=== PATIENT | female | born 1955 | race Caucasian/White ===

== ENCOUNTER 2017-01-14 15:54 | Observation (INO) | payer OTHER ==
[2017-01-14] MEDS ORDERED: PROCHLORPERAZINE INJ 5 MG/ML 2 ML VIAL IV ONE (16:41)
[2017-01-14] MEDS ORDERED: NS 0.9% 1000 ML* 2,000 ML IV ONE (16:41)
[2017-01-14] MEDS ORDERED: Nitroglycerin TAB 0.4 MG* 0.4 MG TAB SL ONE (16:42)
--- NOTE | 2017-01-14 17:07 | RAD ---
HISTORY: Chest pain COMPARISONS: September 19, 2016 VIEWS:1: Single frontal portable view of the chest at 4:51 PM FINDINGS: LINES AND TUBES: None. CARDIOMEDIASTINAL SILHOUETTE: The cardiomediastinal silhouette is normal for portable technique. PLEURA: The costophrenic angles are sharp. No pleural abnormalities are noted. LUNG PARENCHYMA: The lungs are clear. ABDOMEN: The upper abdomen is clear. There is no subphrenic gas. BONES AND SOFT TISSUES: The patient is appears to be status post left mastectomy and right breast reconstruction IMPRESSION: NO ACTIVE CARDIOPULMONARY DISEASE.
[2017-01-14 17:40] LABS: Hematocrit 38 % (35-47); Hemoglobin 12.7 g/dl (12.0-16.0); Mean Corpuscular HGB Conc 33 g/dl (31-36); Mean Corpuscular Hemoglobin 28 pg (27-31); Mean Corpuscular Volume 86 fL (80-97); Mean Platelet Volume 7 um3 (7.4-10.4); Red Blood Count 4.48 10^6/ul (4.0-5.4); Red Cell Distribution Width 15 % (10.5-15); White Blood Count 10.6 10^3/ul (3.5-10.8)
[2017-01-14 18:00] LABS: Troponin I 0.01 ng/mL (<0.04)
[2017-01-14 18:06] LABS: Albumin 3.7 g/dL (3.2-5.2); BUN/Creatinine Ratio 36.4 (8-20); C Reactive Protein 1.12 mg/L (< 5.00); Calcium 8.6 mg/dL (8.6-10.3); EGFR African American 144.5 (>60); EGFR Non-African American 112.4 (>60); Globulin 2.9 g/dL (2-4); Potassium 3.7 mmol/L (3.5-5.0); Total Bilirubin 0.3 mg/dL (0.2-1.0); Total Protein 6.6 g/dL (6.4-8.9)
[2017-01-14 18:43] LABS: TSH (Thyroid Stimulating Horm) 1.45 mcIU/mL (0.34-5.60)
[2017-01-14] MEDS ORDERED: Ondansetron INJ* 2 MG/ML VIAL IV ONE (19:20)
[2017-01-14] MEDS ORDERED: Morphine INJ* 4 MG/ML 1 ML SYRINGE IV ONE (19:20)
--- NOTE | 2017-01-14 19:25 | ED ---
Slade Chatterjee Matthew, scribed for Aravind Rosas MD on 01/14/17 at 1719 . HPI Chest Pain - HPI Summary HPI Summary: A 61 y/o female presents to the ED for mid-sternal chest pain since 14:00. The pain started while the patient was watching TV. The pain is rated 10/10 in severity, described as sharp/heavy, and does not radiate. he patient has had 2 MIs in the past, and she is unable to differentiate this pain from her achalasia or similar to her previous MIs. She took nitroglycerin [employer] without relief. Associated symptoms include nausea. The patient takes Morphine 30mg XR twice day and 15mg 3x daily. She was able to take her extended release pain medications this morning, but hasn't been able to take her breakaway pain medication this afternoon, because of difficulty swallowing. She normal takes her XR medications in the morning and evening. She c/o of chronic abdominal pain from her J-Tube. The patient has lost between 30-40 pounds since June. PMHx of HTN, NO HLD, and NO Diabetes. - History of Current Complaint Chief Complaint: EDChestPainROMI Time Seen by Provider: 01/14/17 16:31 Hx Obtained From: Patient Onset/Duration: Started Hours Ago, Atraumatic, Still Present Time of Onset: 14:00 Timing: Constant Initial Severity: Moderate Current Severity: Moderate Pain Intensity: 10 Pain Scale Used: 0-10 Numeric Chest Pain Location: Mid Sternal Chest Pain Radiates: No Character: Heaviness, Sharp/Stabbing Associated Signs and Symptoms: Positive: Chest Pain, Nausea - Additional Pertinent History Primary Care Physician: [id number] - Allergy/Home Medications Allergies/Adverse Reactions: Allergies Allergy/AdvReac Type Severity Reaction Status Date / Time Albumin Human [From Botox] Allergy Severe Anaphylatic Verified 01/14/17 16:30 Shock Iodinated Contrast Media Allergy Severe Anaphylatic Verified 01/14/17 16:30 [IV CONTRAST DYE] Shock Iodine Allergy Severe Anaphylatic Verified 01/14/17 16:30 Shock NSAIDs Allergy Severe Anaphylatic Verified 01/14/17 16:30 Shock OnabotulinumtoxinA Allergy Severe Anaphylatic Verified 01/14/17 16:30 [From Botox] Shock Penicillins Allergy Severe Anaphylatic Verified 01/14/17 16:30 Shock Adhesive Tape Allergy Itching Verified 01/14/17 16:30 Chlorhexidine Allergy Rash And Verified 01/14/17 16:30 [From Hibiclens] Itching Latex Allergy Hives Verified 01/14/17 16:30 Povidone Iodine Allergy Itching Verified 01/14/17 16:30 [From Betadine] Shellfish Allergy Allergy Anaphylatic Verified 01/14/17 16:30 Shock BEES Allergy Anaphylatic Uncoded 01/14/17 16:30 Shock ENVIRONMENTAL/SEASONAL Allergy ITCHY,WATERY Uncoded 01/14/17 16:30 HAYFEVER EYES, SNEEZE, CONGESTION PMH/Surg Hx/FS Hx/Imm Hx Endocrine/Hematology History: Reports: Hx Anticoagulant Therapy - plavix, Hx Anemia Denies: Hx Diabetes, Hx Thyroid Disease Cardiovascular History: Reports: Hx Angina, Hx Coronary Artery Disease, Hx Deep Vein Thrombosis, Hx Embolism, Hx Hypercholesterolemia, Hx Hypertension, Hx Myocardial Infarction, Hx Syncope, Other Cardiovascular Problems/Disorders - LEFT MASTECTOMY Denies: Hx Congestive Heart Failure, Hx Pacemaker/ICD, Hx Valvular Heart Disease Respiratory History: Reports: Hx Chronic Obstructive Pulmonary Disease (COPD) - Pt denies though providers have diagnosed it, Hx Pneumonia, Hx Pulmonary Embolism, Hx Seasonal Allergies, Other Respiratory Problems/Disorders - SMOKER Denies: Hx Asthma, Hx Sleep Apnea GI History: Reports: Hx Diverticulosis, Hx Gastroesophageal Reflux Disease, Hx Hiatal Hernia, Other GI Disorders - achelasia, Fernández's esophagus, PEG tube, TPN, Nissin Fundoplication Denies: Hx Ulcer History: Reports: Hx Kidney Infection, Hx Kidney Stones - LAST 12/2015- NO PROBLEMS SINCE PER PATIENT Denies: Hx Dialysis, Hx Renal Disease Musculoskeletal History: Reports: Hx Arthritis - LEFT KNEE, BACK, Hx Back Problems - L1 fx, Other Musculoskeletal History - current L1 fx Denies: Hx Osteoporosis Sensory History: Reports: Hx Cataracts - R eye, Hx Contacts or Glasses Denies: Hx Hearing Aid Opthamlomology History: Reports: Hx Cataracts - R eye, Hx Contacts or Glasses Neurological History: Reports: Hx Spinal Cord Injury - L1, Hx Transient Ischemic Attacks (TIA), Other Neuro Impairments/Disorders - POSSIBLE SMALL TIA'S - 1.5 YEARS AGO- Psychiatric History: Reports: Hx Anxiety - OCCASIONAL - PRN MEDS- CURRENTLY HAS NO SCRIPTS FOR Denies: Hx Panic Disorder - Cancer History Cancer Type, Location and Year: RT BREAST CA, 2009 HAD A BILATERAL MASTECTOMY Hx Chemotherapy: No Hx Radiation Therapy: No - Surgical History Surgery Procedure, Year, and Place: RT LUMPECTOMY 02/2010, BILATERAL MASTECTOMY , 2001& 2002 CARDIAC STENT AT [facility] IN [place], LEFT KNEE SURGERY X10, BILATERAL SHOULDER SURGERY, ESPOHOGEAL SURGERY, PARTIAL HYSTERECTOMY,. APPENDIX A CHILD, CHEST TUBE, ESOPHAGEAL DILATION. NISSIN FUNDOLPICATION Hx Anesthesia Reactions: No - Immunization History Date of Tetanus Vaccine: up to date Date of Influenza Vaccine: 06/2016 Infectious Disease History: No Infectious Disease History: Denies: Hx Clostridium Difficile, Hx Hepatitis, Hx Human Immunodeficiency Virus (HIV), Hx of Known/Suspected MRSA, Hx Shingles, Hx Tuberculosis, Hx Known/ Suspected VRE, Hx Known/Suspected VRSA, History Other Infectious Disease, Traveled Outside the in Last 30 Days - Family History Known Family History: Positive: None, Cardiac Disease - Social History Alcohol Use: None Substance Use Type: Reports: None Substance Use Comment - Amount & Last Used: prescribed Hx Tobacco Use: Yes Smoking Status (MU): Heavy Every Day Tobacco Smoker Type: Cigarettes Amount Used/How Often: < 5 CIGARETTES A WEEK X 45 YEARS Length of Time of Smoking/Using Tobacco: 40+ YEARS Have You Smoked in the Last Year: Yes Review of Systems Constitutional: Negative Eyes: Negative ENT: Negative Positive: Chest Pain Respiratory: Negative Positive: Nausea Genitourinary: Negative Musculoskeletal: Negative Skin: Negative Neurological: Negative Psychological: Normal All Other Systems Reviewed And Are Negative: Yes Physical Exam Triage Information Reviewed: Yes Vital Signs On Initial Exam: Initial Vitals Temp Pulse Resp BP Pulse Ox 97.9 F 72 15 151/91 96 01/14/17 16:18 01/14/17 16:18 01/14/17 16:18 01/14/17 16:18 01/14/17 16:18 Vital Signs Reviewed: Yes Appearance: Positive: Pain Distress - mild Skin: Positive: Warm, Dry Head/Face: Positive: Normal Head/Face Inspection Eyes: Positive: Normal ENT: Positive: Normal ENT inspection Neck: Positive: Supple, Nontender Respiratory/Lung Sounds: Positive: Clear to Auscultation, Breath Sounds Present Cardiovascular: Positive: RRR Abdomen Description: Positive: Nontender, Soft Bowel Sounds: Positive: Present Musculoskeletal: Positive: Strength/ROM Intact Neurological: Positive: Alert, Oriented to Person Place, Time Psychiatric: Positive: Affect/Mood Appropriate Diagnostics - Vital Signs Vital Signs Temp Pulse Resp BP Pulse Ox 01/14/17 16:27 72 96 01/14/17 16:18 97.9 F 72 15 151/91 96 - Laboratory Lab Results: Lab Results 01/14/17 01/14/17 01/14/17 Range/Units 17:28 17:28 17:28 WBC 10.6 (3.5-10.8) 10^3/ul RBC 4.48 (4.0-5.4) 10^6/ul Hgb 12.7 (12.0-16.0) g/dl Hct 38 (35-47) % MCV 86 (80-97) fL MCH 28 (27-31) pg MCHC 33 (31-36) g/dl RDW 15 (10.5-15) % Plt Count 354 (150-450) 10^3/ul MPV 7 L (7.4-10.4) um3 Neut % (Auto) 67.8 (38-83) % Lymph % (Auto) 24.6 L (25-47) % [place] % (Auto) 5.8 (1-9) % Eos % (Auto) 0.9 (0-6) % Baso % (Auto) 0.9 (0-2) % Absolute Neuts (auto) 7.2 (1.5-7.7) 10^3/ul Absolute Lymphs (auto) 2.6 (1.0-4.8) 10^3/ul Absolute Monos (auto) 0.6 (0-0.8) 10^3/ul Absolute Eos (auto) 0.1 (0-0.6) 10^3/ul Absolute Basos (auto) 0.1 (0-0.2) 10^3/ul Absolute Nucleated RBC 0 10^3/ul Nucleated RBC % 0 INR (Anticoag Therapy) 0.78 L (0.89-1.11) APTT 28.2 (26.0-36.3) seconds D-Dimer, Quantitative 281 H (Less Than 230) ng/mL Sodium 134 (133-145) mmol/L Potassium 3.7 (3.5-5.0) mmol/L Chloride 104 (101-111) mmol/L Carbon Dioxide 24 (22-32) mmol/L Anion Gap 6 (2-11) mmol/L BUN 20 (6-24) mg/dL Creatinine 0.55 (0.51-0.95) mg/dL Est GFR ( Amer) 144.5 (>60) Est GFR (Non-Af Amer) 112.4 (>60) BUN/Creatinine Ratio 36.4 H (8-20) Glucose 90 (70-100) mg/dL Lactic Acid (0.5-2.0) mmol/L Calcium 8.6 (8.6-10.3) mg/dL Magnesium 2.0 (1.9-2.7) mg/dL Total Bilirubin 0.30 (0.2-1.0) mg/dL AST 15 (13-39) U/L ALT 18 (7-52) U/L Alkaline Phosphatase 50 (34-104) U/L Total Creatine Kinase 30 (10-223) U/L CK-MB (CK-2) 1.0 (0.6-6.3) ng/mL Troponin I 0.01 (<0.04) ng/mL C-Reactive Protein 1.12 (< 5.00) mg/L B-Natriuretic Peptide ( - 100) pg/mL Total Protein 6.6 (6.4-8.9) g/dL Albumin 3.7 (3.2-5.2) g/dL Globulin 2.9 (2-4) g/dL Albumin/Globulin Ratio 1.3 (1-3) Lipase 19 (11.0-82.0) U/L TSH 1.45 (0.34-5.60) mcIU/mL 01/14/17 01/14/17 Range/Units 17:28 17:28 WBC (3.5-10.8) 10^3/ul RBC (4.0-5.4) 10^6/ul Hgb (12.0-16.0) g/dl Hct (35-47) % MCV (80-97) fL MCH (27-31) pg MCHC (31-36) g/dl RDW (10.5-15) % Plt Count (150-450) 10^3/ul MPV (7.4-10.4) um3 Neut % (Auto) (38-83) % Lymph % (Auto) (25-47) % [place] % (Auto) (1-9) % Eos % (Auto) (0-6) % Baso % (Auto) (0-2) % Absolute Neuts (auto) (1.5-7.7) 10^3/ul Absolute Lymphs (auto) (1.0-4.8) 10^3/ul Absolute Monos (auto) (0-0.8) 10^3/ul Absolute Eos (auto) (0-0.6) 10^3/ul Absolute Basos (auto) (0-0.2) 10^3/ul Absolute Nucleated RBC 10^3/ul Nucleated RBC % INR (Anticoag Therapy) (0.89-1.11) APTT (26.0-36.3) seconds D-Dimer, Quantitative (Less Than 230) ng/mL Sodium (133-145) mmol/L Potassium (3.5-5.0) mmol/L Chloride (101-111) mmol/L Carbon Dioxide (22-32) mmol/L Anion Gap (2-11) mmol/L BUN (6-24) mg/dL Creatinine (0.51-0.95) mg/dL Est GFR ( Amer) (>60) Est GFR (Non-Af Amer) (>60) BUN/Creatinine Ratio (8-20) Glucose (70-100) mg/dL Lactic Acid 0.8 (0.5-2.0) mmol/L Calcium (8.6-10.3) mg/dL Magnesium (1.9-2.7) mg/dL Total Bilirubin (0.2-1.0) mg/dL AST (13-39) U/L ALT (7-52) U/L Alkaline Phosphatase (34-104) U/L Total Creatine Kinase (10-223) U/L CK-MB (CK-2) (0.6-6.3) ng/mL Troponin I (<0.04) ng/mL C-Reactive Protein (< 5.00) mg/L B-Natriuretic Peptide 57 ( - 100) pg/mL Total Protein (6.4-8.9) g/dL Albumin (3.2-5.2) g/dL Globulin (2-4) g/dL Albumin/Globulin Ratio (1-3) Lipase (11.0-82.0) U/L TSH (0.34-5.60) mcIU/mL Result Diagrams: 01/14/17 17:28 01/14/17 17:28 Lab Statement: Any lab studies that have been ordered have been reviewed, and results considered in the medical decision making process. - Radiology CXR Xray Interpretation: No Acute Changes - IMPRESSION: NO ACTIVE CARDIOPULMONARY DISEASE. Radiology Interpretation Completed By: Radiologist - EKG 18:17 Cardiac Rate: NL - 69 bpm EKG Rhythm: Sinus Rhythm Ectopy: None EKG Interpretation: Flipped T waves in V1 and V2 Chest Pain Course/Dx - Course Assessment/Plan: ADMIT HOSPITALIST STABLE. - Diagnoses Provider Diagnoses: Chest pain Discharge - Discharge Plan Condition: Stable Disposition: ADMITTED TO [facility] Referrals: Trish Combs MD [Primary Care Provider] - The documentation as recorded by the Slade vyas Matthew accurately reflects the service I personally performed and the decisions made by , Aravind Rosas MD.
--- NOTE | 2017-01-14 19:26 | HP ---
H&P (Free Text) History and Physical: PCP: Zahra Combs MD Date/Time of Evaluation: 01/14/2017 191 CC: chest pain HPI: Mrs Prasad is a 61YO female HX CAD/DC, DVT/PE, breast CA who presents reporting uncharacterizable malaise starting yesterday remaining stable into today until ~1400 when she developed rapid onset of sharp, non-exertional, non- radiating substernal chest pain associated with mild SOB, nausea, palpitations, and light-headedness, but no sweating. The pain has been continuous since without exacerbating or alleviating factors. She denies pain/swelling in the legs, abdominal pain, F/C, emesis, or change in bowel/bladder. Her previous DVT/ PE occurred in the post-operative setting, but she is unsure which surgery. Evaluation reveals stable vitals and negative labs excepting a minimally elevated d-dimer of 281. Troponin is 0.01. BNP is 57. ECG & CXR are benign. PMedHx CAD/DC x2 LLE DVT/PE R breast CA s/p B mastectomy TIA achalasia urolithiasis L1 compression FX OA anxiety Allergies Albumin Human [From Botox] Allergy (Severe, Verified 01/14/17 16:30) Anaphylatic Shock Iodinated Contrast Media [IV CONTRAST DYE] Allergy (Severe, Verified 01/14/17 16 :30) Anaphylatic Shock Iodine Allergy (Severe, Verified 01/14/17 16:30) Anaphylatic Shock NSAIDs Allergy (Severe, Verified 01/14/17 16:30) Anaphylatic Shock OnabotulinumtoxinA [From Botox] Allergy (Severe, Verified 01/14/17 16:30) Anaphylatic Shock Penicillins Allergy (Severe, Verified 01/14/17 16:30) Anaphylatic Shock Adhesive Tape Allergy (Verified 01/14/17 16:30) Itching Chlorhexidine [From Hibiclens] Allergy (Verified 01/14/17 16:30) Rash And Itching Latex Allergy (Verified 01/14/17 16:30) Hives Povidone Iodine [From Betadine] Allergy (Verified 01/14/17 16:30) Itching Shellfish Allergy Allergy (Verified 01/14/17 16:30) Anaphylatic Shock BEES Allergy (Uncoded 01/14/17 16:30) Anaphylatic Shock ENVIRONMENTAL/SEASONAL HAYFEVER Allergy (Uncoded 01/14/17 16:30) ITCHY,WATERY EYES, SNEEZE, CONGESTION Ambulatory Orders Nursing to reconcile. Azelastine 0.05% (OPHTH)(NF) [Optivar 0.05% (NF)] 1 drop BOTH EYES BID PRN 05/31 Cyanocobalamin INJ * [Vitamin B12 INJ *] 1,000 mcg IM MONTHLY 05/31/15 Epinephrine [Epipen 2-Godwin] 0.3 mg INJ ONCE PRN 05/31/15 Nitroglycerin TAB 0.4 MG* 0.4 mg SL Q5M PRN 11/03/15 Carisoprodol TAB* [Soma TAB*] 350 mg PO BID PRN 01/16/16 diPHENhydraMINE PO* [Benadryl PO 25 MG TAB*] 25 mg PO Q6HR PRN 01/16/16 Clopidogrel TAB* [Plavix TAB*] 75 mg PO DAILY tab 03/09/16 Acetaminophen [Acetaminophen Extra Stren] 1,000 mg PO TID PRN 08/14/16 Albuterol HFA INHALER* [Ventolin HFA Inhaler*] 2 puff INH Q4H PRN 08/14/16 Ergocalciferol CAP* [Drisdol CAP*] 50,000 units PO PECK 08/14/16 Lidocaine 2% JELLY* 1 applic TOPICAL DAILY PRN 08/14/16 Metoprolol Succinate XL TAB* [Toprol XL TAB*] 50 mg PO DAILY 08/14/16 Pravastatin (NF) [Pravachol (NF)] 20 mg PO BEDTIME 08/14/16 Ondansetron ODT TAB* [Zofran 4 MG Odt TAB*] 4 mg PO Q6H PRN #90 tab.odt Omeprazole CAP* [Prilosec CAP* 20 MG] 40 mg PO DAILY 09/19/16 Morphine Sulfate Beads [Morphine Sulfate ER] 30 mg PO BID 10/17/16 Morphine TAB (NF) 15 mg PO Q4H PRN 10/17/16 Prochlorperazine TAB* [Compazine Tab*] 10 mg PO Q6H PRN 10/17/16 PSurgHx B shoulder arthroscopies esophageal dilation R breast lumpectomy B mastectomy B breast reconstruction implants, failed on L Godwin fundoplication x2 G-tube placement appendectomy hysterectomy L TKA SocHx: 1/2PPD cigarettes, denies alcohol & recreational drugs; lives alone, , 2 children locally; disabled; full code status FamHx: Mother passed in her 80 2nd lung CA; Father: passed of DC in his 50s ROS: as above, otherwise reviewed and all were negative Constitutional: NAD, normally developed, thin white female vitals: Vital Signs Temp 36.6 C 01/14/17 16:18 Pulse 71 01/14/17 19:36 Resp 17 01/14/17 20:00 BP 156/128 01/14/17 19:36 Pulse Ox 97 01/14/17 19:36 Intake & Output 01/13/17 01/14/17 01/14/17 23:59 11:59 23:59 Intake Total 1000 Balance 1000 Weight 52.163 kg Intake: IV Fluids 1000 HEENM: atraumatic; sclera/conjunctiva: non-icteric/clear; hearing: clinically intact; oropharynx: clear, mucosa moist Neck: soft tissue: non-tender; thyroid: normal Pulmonary: clear to auscultation bilaterally, good aeration, no accessory muscle use CV: RR/RR, normal S1S2, no carotid bruit, no jugular venous distention, 2+ B DP/ PT, no edema Abdominal: soft, non-distended, non-tender, no rebound/guarding/rigidity, normoactive bowel sounds, no hepatosplenomegaly or masses, no costovertebral angle tenderness Musculoskeletal: general: grossly intact; gait: stable Integumental: normal appearance and texture of exposed skin Psychiatric orientation: AA&O to PPS affect: calm mood: cooperative eye contact: good content: reliable responses: timely insight: good to fair Testing: Lab Results 01/14/17 01/14/17 01/14/17 Range/Units 17:28 17:28 17:28 WBC 10.6 (3.5-10.8) 10^3/ul RBC 4.48 (4.0-5.4) 10^6/ul Hgb 12.7 (12.0-16.0) g/dl Hct 38 (35-47) % MCV 86 (80-97) fL MCH 28 (27-31) pg MCHC 33 (31-36) g/dl RDW 15 (10.5-15) % Plt Count 354 (150-450) 10^3/ul MPV 7 L (7.4-10.4) um3 Neut % (Auto) 67.8 (38-83) % Lymph % (Auto) 24.6 L (25-47) % [place] % (Auto) 5.8 (1-9) % Eos % (Auto) 0.9 (0-6) % Baso % (Auto) 0.9 (0-2) % Absolute Neuts (auto) 7.2 (1.5-7.7) 10^3/ul Absolute Lymphs (auto) 2.6 (1.0-4.8) 10^3/ul Absolute Monos (auto) 0.6 (0-0.8) 10^3/ul Absolute Eos (auto) 0.1 (0-0.6) 10^3/ul Absolute Basos (auto) 0.1 (0-0.2) 10^3/ul Absolute Nucleated RBC 0 10^3/ul Nucleated RBC % 0 INR (Anticoag Therapy) 0.78 L (0.89-1.11) APTT 28.2 (26.0-36.3) seconds D-Dimer, Quantitative 281 H (Less Than 230) ng/mL Sodium 134 (133-145) mmol/L Potassium 3.7 (3.5-5.0) mmol/L Chloride 104 (101-111) mmol/L Carbon Dioxide 24 (22-32) mmol/L Anion Gap 6 (2-11) mmol/L BUN 20 (6-24) mg/dL Creatinine 0.55 (0.51-0.95) mg/dL Est GFR ( Amer) 144.5 (>60) Est GFR (Non-Af Amer) 112.4 (>60) BUN/Creatinine Ratio 36.4 H (8-20) Glucose 90 (70-100) mg/dL Lactic Acid (0.5-2.0) mmol/L Calcium 8.6 (8.6-10.3) mg/dL Magnesium 2.0 (1.9-2.7) mg/dL Total Bilirubin 0.30 (0.2-1.0) mg/dL AST 15 (13-39) U/L ALT 18 (7-52) U/L Alkaline Phosphatase 50 (34-104) U/L Total Creatine Kinase 30 (10-223) U/L CK-MB (CK-2) 1.0 (0.6-6.3) ng/mL Troponin I 0.01 (<0.04) ng/mL C-Reactive Protein 1.12 (< 5.00) mg/L B-Natriuretic Peptide ( - 100) pg/mL Total Protein 6.6 (6.4-8.9) g/dL Albumin 3.7 (3.2-5.2) g/dL Globulin 2.9 (2-4) g/dL Albumin/Globulin Ratio 1.3 (1-3) Lipase 19 (11.0-82.0) U/L TSH 1.45 (0.34-5.60) mcIU/mL 01/14/17 01/14/17 Range/Units 17:28 17:28 WBC (3.5-10.8) 10^3/ul RBC (4.0-5.4) 10^6/ul Hgb (12.0-16.0) g/dl Hct (35-47) % MCV (80-97) fL MCH (27-31) pg MCHC (31-36) g/dl RDW (10.5-15) % Plt Count (150-450) 10^3/ul MPV (7.4-10.4) um3 Neut % (Auto) (38-83) % Lymph % (Auto) (25-47) % [place] % (Auto) (1-9) % Eos % (Auto) (0-6) % Baso % (Auto) (0-2) % Absolute Neuts (auto) (1.5-7.7) 10^3/ul Absolute Lymphs (auto) (1.0-4.8) 10^3/ul Absolute Monos (auto) (0-0.8) 10^3/ul Absolute Eos (auto) (0-0.6) 10^3/ul Absolute Basos (auto) (0-0.2) 10^3/ul Absolute Nucleated RBC 10^3/ul Nucleated RBC % INR (Anticoag Therapy) (0.89-1.11) APTT (26.0-36.3) seconds D-Dimer, Quantitative (Less Than 230) ng/mL Sodium (133-145) mmol/L Potassium (3.5-5.0) mmol/L Chloride (101-111) mmol/L Carbon Dioxide (22-32) mmol/L Anion Gap (2-11) mmol/L BUN (6-24) mg/dL Creatinine (0.51-0.95) mg/dL Est GFR ( Amer) (>60) Est GFR (Non-Af Amer) (>60) BUN/Creatinine Ratio (8-20) Glucose (70-100) mg/dL Lactic Acid 0.8 (0.5-2.0) mmol/L Calcium (8.6-10.3) mg/dL Magnesium (1.9-2.7) mg/dL Total Bilirubin (0.2-1.0) mg/dL AST (13-39) U/L ALT (7-52) U/L Alkaline Phosphatase (34-104) U/L Total Creatine Kinase (10-223) U/L CK-MB (CK-2) (0.6-6.3) ng/mL Troponin I (<0.04) ng/mL C-Reactive Protein (< 5.00) mg/L B-Natriuretic Peptide 57 ( - 100) pg/mL Total Protein (6.4-8.9) g/dL Albumin (3.2-5.2) g/dL Globulin (2-4) g/dL Albumin/Globulin Ratio (1-3) Lipase (11.0-82.0) U/L TSH (0.34-5.60) mcIU/mL ECG, personally reviewed: NSR rate 69, no ischemia CXR, personally reviewed: IMPRESSION: NO ACTIVE CARDIOPULMONARY DISEASE. Impression: 61F presenting with atypical chest pain for r/o ACS/PE DIAGNOSIS & PLAN Primary chest pain r/o ACS/PE : HX CAD/DC x2 : telemetry : no aspirin 2nd anaphylaxis to NSAIDS : metoprolol : supplemental oxygen : enoxaparin 1mg/kg SQ x1 tonight : V/Q scan in AM : trend troponin : repeat ECG in AM : if all negative, would not pursue further : supportive care Secondary HX LLE DVT/PE : enoxaparin 1mg/kg x1 dose tonight as above : V/Q scan in AM R breast CA s/p B mastectomy : no acute issues : no evidence of disease achalasia : PPI Admission Rational: CDU observation for r/o ACS/PE DVTp: enoxaparin SQ Code Status: full HCP: daughter, Ela Chávez, & brother, To Prasad
[2017-01-14] MEDS ORDERED: Melatonin (NF) 3 MG TAB PO PRN (21:22)
[2017-01-14] MEDS ORDERED: oxyCODONE TAB* 5 MG TAB PO PRN (21:22)
[2017-01-14] MEDS ORDERED: Nicotine Inhaler* 10 MG AMP INH PRN (21:22)
[2017-01-14] MEDS ORDERED: Morphine INJ* 2 MG/ML 1 ML SYRINGE IV PRN (21:22)
[2017-01-14] MEDS ORDERED: PROCHLORPERAZINE INJ 5 MG/ML 2 ML VIAL IV PRN (21:22)
[2017-01-14] MEDS ORDERED: Acetaminophen TAB* 325 MG PO PRN (21:22)
[2017-01-14] MEDS ORDERED: Ondansetron INJ* 2 MG/ML VIAL IV PRN (21:22)
[2017-01-14] MEDS ORDERED: Albuterol 2.5 MG/3 ML NEB.SOL* (0.083%) INH PRN (21:22)
[2017-01-14] MEDS ORDERED: Enoxaparin(*) 60 MG/0.6 ML SYR SUBCUT ONE (21:23)
[2017-01-14] MEDS ORDERED: Metoprolol Succinate XL TAB* 25 MG PO ONE (21:25)
[2017-01-14] MEDS ORDERED: NS 0.9% 1000 ML* 1,000 ML IV SCH (21:30)
[2017-01-14] MEDS: Pantoprazole IV* 40 MG IV SCH (22:57)
[2017-01-14] MEDS: traMADol TAB* 50 MG PO PRN (22:57)
--- NOTE | 2017-01-15 08:09 | RAD ---
INDICATION: Short of breath. Chest pain COMPARISON: Chest x-ray January 14, 2017 TECHNIQUE: Following the administration of 9.65 millicuries of xenon gas, anterior and posterior deep breath, equilibrium, and washout phase imaging was performed. Following the intravenous administration of 6.2 millicuries of technetium 99m, MAA, anterior, posterior, lateral, and oblique imaging of the chest was performed. FINDINGS: Ventilation images show normal ventilation. The perfusion images show no segmentally absent areas of ventilation/perfusion mismatch. The probability of acute pulmonary embolus is low. IMPRESSION: LOW PROBABILITY FOR ACUTE PULMONARY EMBOLUS.
[2017-01-15] MEDS: Pantoprazole IV* 40 MG IV SCH (08:16)
[2017-01-15] MEDS: traMADol TAB* 50 MG PO PRN (08:16)
[2017-01-15] MEDS ORDERED: Docusate CAP* 100 MG PO SCH (09:00)
[2017-01-15 13:27] VITALS: BP 169/81
[2017-01-15] MEDS ORDERED: amLODIPine TAB* 5 MG PO SCH (14:00)
[2017-01-15] MEDS ORDERED: Carisoprodol TAB* 350 MG PO SCH (21:00)
--- NOTE | 2017-01-16 02:35 | DS ---
DISCHARGE SUMMARY: DATE OF ADMISSION: 01/14/17 DATE OF DISCHARGE: 01/15/17 PRIMARY CARE PROVIDER: Dr. Combs. DISCHARGE DIAGNOSIS: Chest pain, which ruled out with negative troponins and V/ Q scan that was low probability. PAST MEDICAL HISTORY: Includes: 1. Coronary artery disease. 2. History of DVT and PE. 3. History of right breast cancer, status post mastectomy. 4. TIA. 5. Achalasia. 6. History of PEG tube placement. 7. Urolithiasis. 8. L1 compression fracture. 9. Osteoarthritis. 10. Anxiety. Please note that the patient has a history of frequent ER visits for chest pains. Her most recent cardiac stress test was noted to be in March of 2016 and was low probability. LABORATORY DATA: During the hospital stay included D-dimer that was mildly elevated to 281. The patient's troponins throughout her hospital stay were 0. TSH was 1.45. V/Q scan obtained on 01/15/17, impression: "Low probability for acute pulmonary embolus." MEDICATIONS AT DISCHARGE: Include: 1. Acetaminophen 1000 mg t.i.d. p.r.n. 2. Albuterol inhaler 2 puffs every 4 hours p.r.n. 3. Azelastine 0.05% ophthalmic solution one drop both eyes b.i.d. 4. Soma 350 mg b.i.d. 5. Plavix 75 mg daily. 6. Vitamin B12 1000 mcg IM monthly. 7. EpiPen use as directed for allergies. 8. Vitamin D3 50,000 units p.o. weekly. 9. Gabapentin 300 mg at bedtime. 10. Lidocaine gel apply to painful areas as previously directed. 11. Metoprolol succinate 50 mg daily. 12. Morphine sulfate beads 30 mg b.i.d. 13. Morphine immediate release 15 mg every 4 hours p.r.n. 14. Nitroglycerin 0.4 mg sublingually on a p.r.n. basis. 15. Omeprazole 40 mg daily. 16. Zofran on a p.r.n. basis. 17. Pravachol 20 mg at bedtime. 18. Compazine 10 mg every 6 hours p.r.n. 19. Amlodipine 5 mg daily. 20. Benadryl 25 mg on a p.r.n. basis. HOSPITALIZATION COURSE: Isabel Prasad is a 61-year-old female with history of achalasia, who currently is able to swallow and takes p.o. diet, although she does have an existing PEG tube in place that currently is not being used. The patient has history of frequent ER visits for chest pain. She came in for chest pain once again and on 01/14/17, she was placed on overnight observation. Her V/Q scan was low probability for PE. The patient also ruled out with serial troponins. She was chest pain free at discharge. She does have history of low probability cardiac test obtained less than a year ago. She is going to be discharged home with recommendation to follow up with her primary care provider in approximately 4 to 7 days. Her medications at home were not changed at discharge. Physical exam at the time of discharge was unchanged from admission. CC: Dr. Combs* [id number]/[facility] #: [id number] [place]
== END 2017-01-15 15:17 | disposition home or self-care (01) ==
LOC: ED 15:54 → MEDTELE 19:25
PROVIDERS: ADMIT Hospitalist; ATTEND Internal Medicine
DX: R07.9 Chest pain, unspecified (principal); I25.10 Atherosclerotic heart disease of native coronary artery without angina pectoris; Z86.718 Personal history of other venous thrombosis and embolism; Z86.711 Personal history of pulmonary embolism; Z79.01 Long term (current) use of anticoagulants; Z86.73 Personal history of transient ischemic attack (TIA), and cerebral infarction without residual deficits; K22.0 Achalasia of cardia; F41.9 Anxiety disorder, unspecified; Z79.899 Other long term (current) drug therapy; I25.2 Old myocardial infarction; I51.7 Cardiomegaly; R06.02 Shortness of breath; F17.210 Nicotine dependence, cigarettes, uncomplicated; Z88.0 Allergy status to penicillin; Z88.8 Allergy status to other drugs, medicaments and biological substances; Z88.6 Allergy status to analgesic agent
CPT/HCPCS: 36415; 71010; 78582; 80053; 82550; 82553; 83605; 83690; 83735; 83880; 84443; 84484; 85025; 85379; 85610; 85730; 86140; 93005; 96361; 96374; 96375; 96376; 99284; 99406; A9270-GY; A9540; A9558; G0378; J0780; J1650; J2270; J2405

== ENCOUNTER 2017-03-04 14:04 | Emergency (ER) | payer OTHER ==
[2017-03-04] MEDS ORDERED: Morphine INJ* 4 MG/ML 1 ML SYRINGE IV ONE (15:12)
[2017-03-04] MEDS ORDERED: Ondansetron INJ* 2 MG/ML VIAL IV ONE ×2 (15:12→18:27)
[2017-03-04] MEDS ORDERED: NS 0.9% 1000 ML* 1,000 ML IV ONE ×2 (15:12→16:59)
[2017-03-04 16:00] LABS: Hematocrit 49 % (35-47); Hemoglobin 16.8 g/dl (12.0-16.0); Mean Corpuscular HGB Conc 34 g/dl (31-36); Mean Corpuscular Hemoglobin 29 pg (27-31); Mean Corpuscular Volume 84 fL (80-97); Mean Platelet Volume 8 um3 (7.4-10.4); Red Blood Count 5.83 10^6/ul (4.0-5.4); Red Cell Distribution Width 14 % (10.5-15); White Blood Count 8.6 10^3/ul (3.5-10.8)
[2017-03-04 16:19] LABS: Albumin 4.4 g/dL (3.2-5.2); BUN/Creatinine Ratio 18.8 (8-20); Calcium 9.5 mg/dL (8.6-10.3); EGFR African American 120.9 (>60); Globulin 3.6 g/dL (2-4); Potassium 3.4 mmol/L (3.5-5.0); Total Bilirubin 0.7 mg/dL (0.2-1.0)
[2017-03-04] MEDS ORDERED: HYDROmorphone* 1 MG/ML 1 ML SYR IV SLOW PU ONE ×2 (16:53→19:44)
--- NOTE | 2017-03-04 17:56 | RAD ---
Indication: Abdominal pain, bloody stools. CT of the abdomen and pelvis was performed after oral contrast administration. No IV contrast was administered. Comparison is made with previous exam dated July 02, 2016. Lung bases demonstrate dependent changes with likely atelectasis in the right lung base. No pleural fluid is identified. Heart demonstrates no pericardial effusion. Liver is normal in size. No focal lesions or intrahepatic ductal dilatation is noted. The spleen is normal in size. The pancreas demonstrates no mass or pancreatic duct dilatation. The common duct is dilated however no abrupt termination is noted. The common duct measures up to 13 mm. Gallbladder demonstrates no calcified gallstones. No pericholecystic fluid or wall thickening is identified. The kidneys demonstrate no hydronephrosis although extrarenal pelvis is noted in the right kidney. No dilated loops of bowel are noted. Bilateral adrenal hyperplasia is noted. This is unchanged from July 02, 2016. CT of the pelvis demonstrates urinary bladder to be distended. There is cortical irregularity involving the right ilium especially in the dorsal aspect of the right ilium. Etiology of this is unclear although no discrete lytic lesion is identified. Correlation with bone scan may BE helpful. No dilated loops of bowel are noted. No hernias are noted. There is old injury of the right inferior pubic rami. The remainder of the bony structures are grossly unremarkable. IMPRESSION: Thickening of the cortex in the right ilium of uncertain etiology. Correlation with bone scan may BE helpful. This may be due to focal osteopenia. There is a dilated common duct noted measuring up to 13 mm. No abrupt termination is noted. Atherosclerotic aorta is noted. Bilateral adrenal hyperplasia..
[2017-03-04] MEDS ORDERED: Ondansetron INJ* 2 MG/ML VIAL ONE (18:24)
[2017-03-04 18:52] LABS: Troponin I 0.01 ng/mL (<0.04)
[2017-03-04 20:03] VITALS: BP 177/88
--- NOTE | 2017-03-04 20:38 | ED ---
Pao Chatterjee Michael, scribed for Holli Deleon MD on 03/04/17 at 1551 . Abdominal Pain/Female - HPI Summary HPI Summary: 62 y/o female was BIBA to the ED presenting with constant and diffuse abd pain that started gradually. The pt also c/o nausea, diarrhea with blood in the stool , and decreased appetite. The nausea and diarrhea have been present for 5 days. She denies fever, vomiting, and dysuria. The PMHx is significant for achalasia, [place] with stenting x2 and breast CA 6 years ago. She has had her G- tube removed 2 months ago and has lost a total of 50 pounds in 4 months. - History of Current Complaint Chief Complaint: EDGeneral Stated Complaint: ABD PAIN/CHEST PAIN Time Seen by Provider: 03/04/17 14:49 Hx Obtained From: Patient, Medical Records Onset/Duration: Gradual Onset, Still Present Timing: Constant Severity Initially: Moderate Severity Currently: Moderate Pain Intensity: 8 Pain Scale Used: 0-10 Numeric Location: Diffuse Radiates: No Aggravating Factor(s): Nothing Alleviating Factor(s): Nothing Associated Signs and Symptoms: Positive: Blood in Stool, Decreased Appetite, Nausea, Diarrhea, Other: - abd pain. Negative: Fever, Urinary Symptoms - dysuria, Vomiting Allergies/Adverse Reactions: Allergies Allergy/AdvReac Type Severity Reaction Status Date / Time Albumin Human [From Botox] Allergy Severe Anaphylatic Verified 01/14/17 16:30 Shock Iodinated Contrast Media Allergy Severe Anaphylatic Verified 01/14/17 16:30 [IV CONTRAST DYE] Shock Iodine Allergy Severe Anaphylatic Verified 01/14/17 16:30 Shock NSAIDs Allergy Severe Anaphylatic Verified 01/14/17 16:30 Shock OnabotulinumtoxinA Allergy Severe Anaphylatic Verified 01/14/17 16:30 [From Botox] Shock Penicillins Allergy Severe Anaphylatic Verified 01/14/17 16:30 Shock Adhesive Tape Allergy Itching Verified 01/14/17 16:30 Chlorhexidine Allergy Rash And Verified 01/14/17 16:30 [From Hibiclens] Itching Latex Allergy Hives Verified 01/14/17 16:30 Povidone Iodine Allergy Itching Verified 01/14/17 16:30 [From Betadine] Shellfish Allergy Allergy Anaphylatic Verified 01/14/17 16:30 Shock BEES Allergy Anaphylatic Uncoded 01/14/17 16:30 Shock ENVIRONMENTAL/SEASONAL Allergy ITCHY,WATERY Uncoded 01/14/17 16:30 HAYFEVER EYES, SNEEZE, CONGESTION PMH/Surg Hx/FS Hx/Imm Hx Endocrine/Hematology History: Reports: Hx Anticoagulant Therapy - plavix, Hx Anemia Denies: Hx Diabetes, Hx Thyroid Disease Cardiovascular History: Reports: Hx Angina, Hx Coronary Artery Disease, Hx Deep Vein Thrombosis, Hx Embolism, Hx Hypercholesterolemia, Hx Hypertension, Hx Myocardial Infarction, Hx Syncope, Other Cardiovascular Problems/Disorders - LEFT MASTECTOMY Denies: Hx Congestive Heart Failure, Hx Pacemaker/ICD, Hx Valvular Heart Disease Respiratory History: Reports: Hx Chronic Obstructive Pulmonary Disease (COPD) - Pt denies though providers have diagnosed it, Hx Pneumonia, Hx Pulmonary Embolism, Hx Seasonal Allergies, Other Respiratory Problems/Disorders - SMOKER Denies: Hx Asthma, Hx Sleep Apnea GI History: Reports: Hx Diverticulosis, Hx Gastroesophageal Reflux Disease, Hx Hiatal Hernia, Other GI Disorders - achelasia, Fernández's esophagus, PEG tube, TPN, Nissin Fundoplication Denies: Hx Ulcer History: Reports: Hx Kidney Infection, Hx Kidney Stones - LAST 12/2015- NO PROBLEMS SINCE PER PATIENT Denies: Hx Dialysis, Hx Renal Disease Musculoskeletal History: Reports: Hx Arthritis - LEFT KNEE, BACK, Hx Back Problems - L1 fx, Other Musculoskeletal History - current L1 fx Denies: Hx Osteoporosis Sensory History: Reports: Hx Cataracts - R eye, Hx Contacts or Glasses - glasses not with pt Denies: Hx Hearing Aid Opthamlomology History: Reports: Hx Cataracts - R eye, Hx Contacts or Glasses - glasses not with pt Neurological History: Reports: Hx Spinal Cord Injury - L1, Hx Transient Ischemic Attacks (TIA), Other Neuro Impairments/Disorders - POSSIBLE SMALL TIA'S - 1.5 YEARS AGO- Psychiatric History: Reports: Hx Anxiety - OCCASIONAL - PRN MEDS- CURRENTLY HAS NO SCRIPTS FOR Denies: Hx Panic Disorder - Cancer History Cancer Type, Location and Year: RT BREAST CA, 2009 HAD A BILATERAL MASTECTOMY Hx Chemotherapy: No Hx Radiation Therapy: No - Surgical History Surgery Procedure, Year, and Place: RT LUMPECTOMY 02/2010, BILATERAL MASTECTOMY , 2001& 2002 CARDIAC STENT AT [facility] IN [place], LEFT KNEE SURGERY X10, BILATERAL SHOULDER SURGERY, ESPOHOGEAL SURGERY, PARTIAL HYSTERECTOMY,. APPENDIX A CHILD, CHEST TUBE, ESOPHAGEAL DILATION. NISSIN FUNDOLPICATION Hx Anesthesia Reactions: No - Immunization History Date of Tetanus Vaccine: up to date Date of Influenza Vaccine: 06/2016 Infectious Disease History: No Infectious Disease History: Denies: Hx Clostridium Difficile, Hx Hepatitis, Hx Human Immunodeficiency Virus (HIV), Hx of Known/Suspected MRSA, Hx Shingles, Hx Tuberculosis, Hx Known/ Suspected VRE, Hx Known/Suspected VRSA, History Other Infectious Disease, Traveled Outside the [place] in Last 30 Days - Family History Known Family History: Positive: Cardiac Disease - Social History Occupation: Disabled Lives: Alone Alcohol Use: Occasionally Substance Use Type: Reports: None Substance Use Comment - Amount & Last Used: prescribed Hx Tobacco Use: Yes Smoking Status (MU): Heavy Every Day Tobacco Smoker Type: Cigarettes Amount Used/How Often: < 5 CIGARETTES A WEEK X 45 YEARS Length of Time of Smoking/Using Tobacco: 40+ YEARS Have You Smoked in the Last Year: Yes Review of Systems Negative: Fever Positive: Abdominal Pain, Diarrhea - blood in stool, denies melena , Nausea, Other - decreased appetite.. Negative: Vomiting Negative: dysuria All Other Systems Reviewed And Are Negative: Yes Physical Exam Triage Information Reviewed: Yes Vital Signs On Initial Exam: Initial Vitals Temp Pulse Resp BP Pulse Ox 97.7 F 103 16 179/112 100 03/04/17 14:12 03/04/17 14:12 03/04/17 14:12 03/04/17 14:12 03/04/17 14:12 Vital Signs Reviewed: Yes Appearance: Positive: No Pain Distress, Ill-Appearing - chronic ill appearing, Cachectic Skin: Positive: Warm, Skin Color Reflects Adequate Perfusion, Dry Head/Face: Positive: Normal Head/Face Inspection Eyes: Positive: EOMI, SHAY, Conjunctiva Clear ENT: Positive: Hearing grossly normal, Pharynx normal Neck: Positive: Supple, Nontender Respiratory/Lung Sounds: Positive: Clear to Auscultation, Breath Sounds Present. Negative: Rales, Rhonchi, Wheezes Cardiovascular: Positive: RRR, Pulses are Symmetrical in both Upper and Lower Extremities. Negative: Murmur, Rub Abdomen Description: Positive: No Organomegaly, Soft, Other: - well healed midline surgical scar. Well healed gastric tube scar.. Negative: Nontender - generalized tenderness to palpation., Distended, Guarding, Peritoneal Signs Bowel Sounds: Positive: Present Musculoskeletal: Positive: Strength/ROM Intact Neurological: Positive: Sensory/Motor Intact, Alert, Oriented to Person Place, Time, Normal Gait. Negative: Cerebellar Dysfunction Psychiatric: Positive: Affect/Mood Appropriate Diagnostics - Vital Signs Vital Signs Temp Pulse Resp BP Pulse Ox 03/04/17 14:16 98.0 F 94 20 179/112 100 03/04/17 14:12 97.7 F 103 16 179/112 100 - Laboratory Lab Results: Lab Results 03/04/17 03/04/17 03/04/17 Range/Units 15:30 15:30 15:30 WBC 8.6 (3.5-10.8) 10^3/ul RBC 5.83 H (4.0-5.4) 10^6/ul Hgb 16.8 H (12.0-16.0) g/dl Hct 49 H (35-47) % MCV 84 (80-97) fL MCH 29 (27-31) pg MCHC 34 (31-36) g/dl RDW 14 (10.5-15) % Plt Count 280 (150-450) 10^3/ul MPV 8 (7.4-10.4) um3 Neut % (Auto) 69.2 (38-83) % Lymph % (Auto) 23.3 L (25-47) % Frederick % (Auto) 6.6 (1-9) % Eos % (Auto) 0.3 (0-6) % Baso % (Auto) 0.6 (0-2) % Absolute Neuts (auto) 5.9 (1.5-7.7) 10^3/ul Absolute Lymphs (auto) 2.0 (1.0-4.8) 10^3/ul Absolute Monos (auto) 0.6 (0-0.8) 10^3/ul Absolute Eos (auto) 0 (0-0.6) 10^3/ul Absolute Basos (auto) 0.1 (0-0.2) 10^3/ul Absolute Nucleated RBC 0.01 10^3/ul Nucleated RBC % 0.1 INR (Anticoag Therapy) 0.91 (0.89-1.11) APTT 25.8 L (26.0-36.3) seconds Sodium 128 L (133-145) mmol/L Potassium 3.4 L (3.5-5.0) mmol/L Chloride 96 L (101-111) mmol/L Carbon Dioxide 23 (22-32) mmol/L Anion Gap 9 (2-11) mmol/L BUN 12 (6-24) mg/dL Creatinine 0.64 (0.51-0.95) mg/dL Est GFR ( Amer) 120.9 (>60) Est GFR (Non-Af Amer) 94.0 (>60) BUN/Creatinine Ratio 18.8 (8-20) Glucose 90 (70-100) mg/dL Lactic Acid (0.5-2.0) mmol/L Calcium 9.5 (8.6-10.3) mg/dL Total Bilirubin 0.70 (0.2-1.0) mg/dL AST 22 (13-39) U/L ALT 12 (7-52) U/L Alkaline Phosphatase 71 (34-104) U/L Total Creatine Kinase 30 (10-223) U/L CK-MB (CK-2) 3.1 (0.6-6.3) ng/mL Troponin I 0.01 (<0.04) ng/mL Total Protein 8.0 (6.4-8.9) g/dL Albumin 4.4 (3.2-5.2) g/dL Globulin 3.6 (2-4) g/dL Albumin/Globulin Ratio 1.2 (1-3) Lipase 16 (11.0-82.0) U/L 05/15/17 Range/Units 15:30 WBC (3.5-10.8) 10^3/ul RBC (4.0-5.4) 10^6/ul Hgb (12.0-16.0) g/dl Hct (35-47) % MCV (80-97) fL MCH (27-31) pg MCHC (31-36) g/dl RDW (10.5-15) % Plt Count (150-450) 10^3/ul MPV (7.4-10.4) um3 Neut % (Auto) (38-83) % Lymph % (Auto) (25-47) % Frederick % (Auto) (1-9) % Eos % (Auto) (0-6) % Baso % (Auto) (0-2) % Absolute Neuts (auto) (1.5-7.7) 10^3/ul Absolute Lymphs (auto) (1.0-4.8) 10^3/ul Absolute Monos (auto) (0-0.8) 10^3/ul Absolute Eos (auto) (0-0.6) 10^3/ul Absolute Basos (auto) (0-0.2) 10^3/ul Absolute Nucleated RBC 10^3/ul Nucleated RBC % INR (Anticoag Therapy) (0.89-1.11) APTT (26.0-36.3) seconds Sodium (133-145) mmol/L Potassium (3.5-5.0) mmol/L Chloride (101-111) mmol/L Carbon Dioxide (22-32) mmol/L Anion Gap (2-11) mmol/L BUN (6-24) mg/dL Creatinine (0.51-0.95) mg/dL Est GFR ( Amer) (>60) Est GFR (Non-Af Amer) (>60) BUN/Creatinine Ratio (8-20) Glucose (70-100) mg/dL Lactic Acid 1.0 (0.5-2.0) mmol/L Calcium (8.6-10.3) mg/dL Total Bilirubin (0.2-1.0) mg/dL AST (13-39) U/L ALT (7-52) U/L Alkaline Phosphatase (34-104) U/L Total Creatine Kinase (10-223) U/L CK-MB (CK-2) (0.6-6.3) ng/mL Troponin I (<0.04) ng/mL Total Protein (6.4-8.9) g/dL Albumin (3.2-5.2) g/dL Globulin (2-4) g/dL Albumin/Globulin Ratio (1-3) Lipase (11.0-82.0) U/L Result Diagrams: 03/04/17 15:30 03/04/17 15:30 Lab Statement: Any lab studies that have been ordered have been reviewed, and results considered in the medical decision making process. - CT CT ABD/PEL CT Interpretation: Positive (See Comments) - Thickening of the cortex in the right ilium of uncertain etiology. Correlation with bone scan may BE helpful. This may be due to focal osteopenia. There is a dilated common duct noted measuring up to 13 mm. No abrupt termination is noted. Atherosclerotic aorta is noted. Bilateral adrenal hyperplasia CT Interpretation Completed By: Radiologist - EKG EK EKG Rhythm: Sinus Rhythm - 77 EKG Interpretation: T wave inversion V1 and V2 Abdominal Pain Fem Course/Dx - Course Course Of Treatment: Pt reports feeling better. Labs and imaging w/o remarkable finding. Gave pt anticipitory guidance to return with worsening symptoms. Will d /c to f/up with surgeon and GI in [place] - Diagnoses Provider Diagnoses: Abdominal pain, history of achalasia Discharge - Discharge Plan Condition: Stable Disposition: HOME Patient Education Materials: Abdominal Pain (ED) Referrals: Trish Combs MD [Primary Care Provider] - Additional Instructions: Please follow up with your GI specialist. You may also follow up with Dr. Combs as needed. The documentation as recorded by the Pao vyas Michael accurately reflects the service I personally performed and the decisions made by , Holli Deleon MD.
== END 2017-03-04 20:09 | disposition home or self-care (01) ==
LOC: ED 14:04
DX: R10.9 Unspecified abdominal pain (principal); R19.7 Diarrhea, unspecified; R11.10 Vomiting, unspecified; F17.210 Nicotine dependence, cigarettes, uncomplicated; K22.0 Achalasia of cardia
CPT/HCPCS: 36415; 74176; 80053; 82272; 82550; 82553; 83605; 83690; 84484; 85025; 85610; 85730; 93005; 96374; 96375; 99282; J1170; J2270; J2405

== ENCOUNTER 2017-04-29 06:46 | Day surgery (SDC) | payer OTHER ==
[~2017-04-29 06:46] MED LIST: Acetaminophen TAB* 325 MG PO PRN
[2017-04-29] MEDS ORDERED: fentaNYL* 50 MCG/ML 2 ML VIAL (100 MCG VIAL) ONE (07:41)
[2017-04-29] MEDS ORDERED: Midazolam* 1 MG/ML 5 ML VIAL (5 MG) ONE (07:41)
[2017-04-29] MEDS ORDERED: BSS OPTH.SOL* BTL ONE (07:45)
[2017-04-29] MEDS ORDERED: acetaZOLAMIDE TAB* 250 MG ONE (08:25)
[2017-04-29] MEDS ORDERED: Neomycin/Polymy/Dex OPHTH.OIN* 3.5 GM ONE (08:26)
[2017-04-29] MEDS ORDERED: Povidone Iodine 5% OPTH* 30 ML BTL ONE (08:26)
[2017-04-29] MEDS ORDERED: Tetracaine 0.5% OPTH.SOL 4 ML* 1 DROP BTL ONE (08:26)
[2017-04-29] MEDS ORDERED: Phenylephrine 2.5% OPTH.SOL* 2 ML BTL ONE (08:26)
[2017-04-29] MEDS ORDERED: Cyclopentolate 1% OPTH.SOL* 2 ML BTL ONE (08:26)
[2017-04-29] MEDS ORDERED: Buffered Lidocaine 0.9% SYRIN* 5 ML/SYR SYRINGE ONE (08:26)
[2017-04-29] MEDS ORDERED: Lidocaine 1% MPF* 2 ML VIAL ONE (08:26)
[2017-04-29] MEDS ORDERED: Flurbiprofen 0.03% OPTH.SOL* 2.5 ML BTL ONE (08:26)
[2017-04-29] MEDS ORDERED: Tropicamide 1% OPTH.SOL* BTL ONE (08:26)
[2017-04-29 08:37] VITALS: BP 147/97
--- NOTE | 2017-04-29 10:52 | OP ---
DATE OF OPERATION: 04/29/17 - [facility] DATE OF : 55 SURGEON: aCn Oscar MD ANESTHESIOLOGIST: Marilu Madrigal MD ANESTHESIA: Monitored anesthesia care. PRE-OP DIAGNOSIS: Cataract of the right eye. POST-OP DIAGNOSIS: Cataract of the right eye. OPERATIVE PROCEDURE: Cataract extraction of the right eye. IMPLANTS: SN60WF 22.0 diopter lens to the right eye. COMPLICATIONS: None. DESCRIPTION OF PROCEDURE: The patient was given phenylephrine 2.5% and cyclopentolate 1% eye drops to the operative eye in the preoperative area. The patient was brought to the operating room where a time-out was taken to identify the correct patient, site, and side of surgery. The patient's right eye was prepped and draped in the usual sterile fashion with 5% Betadine. The Betadine was rinsed after it was allowed to dry due to the patient's history of developing a rash from Betadine exposure. A second time-out was taken to verify the correct patient, site, and side of surgery, and correct lens selection. A lid speculum was placed to the right eye. A 1-mm paracentesis blade was used to make a clear corneal incision in the superotemporal position. Preservative-free 1% lidocaine was injected in the anterior chamber. DisCoVisc was then injected in the anterior chamber. A 2.75-mm keratome blade was used to make a triplanar incision at the inferotemporal position. A cystotome initiated a capsulorrhexis which was completed with Utrata forceps in a continuous and curvilinear manner. Hydrodissection of the lens was performed with BSS on a cannula. The lens could be spun in a capsular bag. The phacoemulsification handpiece was used with a [id number] technique to remove the nucleus in its entirety with 22.66 CDE. The I/A handpiece then removed the residual cortical lens material. DisCoVisc was injected to inflate the capsular bag. The planned SN60WF 22.0 diopter lens was injected in the capsular bag. The residual DisCoVisc was removed from the eye with the I/A handpiece. The corneal incisions were hydrated and no leaks occurred at physiologic pressure around 20 mmHg per palpation. The lid speculum was removed and drapes removed. Maxitrol ointment was placed to the surface of the operative eye. An adhesive patch and shield was placed on the operative eye. The patient was taken to the postoperative area in stable condition. [id number]/[facility] #: [id number] IND[place]
== END 2017-04-29 08:37 | disposition home or self-care (01) ==
LOC: OREAST 06:46
PROVIDERS: ATTEND Student in an Organized Health Care Education/Training Program
DX: H25.11 Age-related nuclear cataract, right eye (principal); I10 Essential (primary) hypertension; I25.2 Old myocardial infarction; E55.9 Vitamin D deficiency, unspecified; Z87.891 Personal history of nicotine dependence; Z95.5 Presence of coronary angioplasty implant and graft; Z79.01 Long term (current) use of anticoagulants; Z85.3 Personal history of malignant neoplasm of breast
CPT/HCPCS: A9270-GY; J2250; J3010; V2632

== ENCOUNTER 2017-05-06 06:45 | Day surgery (SDC) | payer OTHER ==
[~2017-05-06 06:45] MED LIST changes: +Buffered Lidocaine 0.9% SYRIN* 5 ML/SYR SYRINGE INTRADERM ONE
[2017-05-06] MEDS ORDERED: Bupivacaine 0.25% SDV* 30 ML ONE (07:11)
[2017-05-06] MEDS ORDERED: Midazolam* 1 MG/ML 5 ML VIAL (5 MG) ONE (07:37)
[2017-05-06 08:18] VITALS: BP 111/68
[2017-05-06] MEDS ORDERED: Povidone Iodine 5% OPTH* 30 ML BTL ONE (09:19)
[2017-05-06] MEDS ORDERED: Cyclopentolate 1% OPTH.SOL* 2 ML BTL ONE (09:19)
[2017-05-06] MEDS ORDERED: acetaZOLAMIDE TAB* 250 MG ONE (09:19)
[2017-05-06] MEDS ORDERED: Phenylephrine 2.5% OPTH.SOL* 2 ML BTL ONE (09:19)
[2017-05-06] MEDS ORDERED: Neomycin/Polymy/Dex OPHTH.OIN* 3.5 GM ONE (09:19)
[2017-05-06] MEDS ORDERED: Flurbiprofen 0.03% OPTH.SOL* 2.5 ML BTL ONE (09:19)
[2017-05-06] MEDS ORDERED: Lidocaine 1% MPF* 2 ML VIAL ONE (09:19)
[2017-05-06] MEDS ORDERED: Tropicamide 1% OPTH.SOL* BTL ONE (09:20)
[2017-05-06] MEDS ORDERED: Buffered Lidocaine 0.9% SYRIN* 5 ML/SYR SYRINGE ONE (09:20)
[2017-05-06] MEDS ORDERED: Tetracaine 0.5% OPTH.SOL 4 ML* 1 DROP BTL ONE (09:20)
--- NOTE | 2017-05-06 10:09 | OP ---
DATE OF OPERATION: 05/06/17 - [facility] DATE OF : 55 SURGEON: Can Oscar MD ANESTHESIOLOGIST: Benny Jovel MD ANESTHESIA: Monitored anesthesia care. PRE-OP DIAGNOSIS: Cataract, left eye. POST-OP DIAGNOSIS: Cataract, left eye. OPERATIVE PROCEDURE: Cataract surgery in the left eye. IMPLANTS: SN60WF 22.5 diopter lens in the left eye. COMPLICATIONS: None. DESCRIPTION OF PROCEDURE: The patient was given phenylephrine 2.5% and cyclopentolate 1% eye drops to the operative eye in the preoperative area. The patient was brought to the operating room, where a time-out was taken to identify the correct patient, site, and side of surgery. The patient's left eye was prepped and draped in the usual sterile fashion, 5% Betadine, which was then rinsed due to the patient's history of irritation with Betadine. A second time-out was taken to verify the correct patient, side and site of the surgery and correct lens selection. A lid speculum was placed in the left eye. A 1-mm paracentesis blade was used to make a clear corneal incision in the inferotemporal position. Preservative-free 1% lidocaine was injected in the anterior chamber. DisCoVisc was then injected in the anterior chamber. A 2.75- mm keratome blade was used to make a triplanar incision at the superotemporal position. A cystotome initiated a capsulorrhexis, which was completed with Utrata forceps in a continuous and curvilinear manner. Hydrodissection of the lens was performed with BSS on a cannula. The lens could be spun in the capsular bag. The phacoemulsification handpiece was used with a divide-and- conquer technique to remove the nucleus in its entirety with 16.21 CDE. The I/ A handpiece then removed the residual cortical lens material. DisCoVisc was injected to inflate the capsular bag. The planned SN60WF 22.5 diopter lens was injected into the capsular bag. The residual DisCoVisc was removed from the eye with the I/A handpiece. The corneal incisions were hydrated and no leaks occurred at physiologic pressure around 20 mmHg per palpation. The lid speculum was removed and drapes removed. Maxitrol ointment was placed to the surface of the operative eye. An adhesive patch and shield was placed on the operative eye. The patient was taken to the postoperative area in stable condition. [id number]/[facility] #: [id number] [place]
== END 2017-05-06 08:29 | disposition home or self-care (01) ==
LOC: OREAST 06:45
PROVIDERS: ATTEND Student in an Organized Health Care Education/Training Program
DX: H25.12 Age-related nuclear cataract, left eye (principal); I10 Essential (primary) hypertension; I25.10 Atherosclerotic heart disease of native coronary artery without angina pectoris; Z95.5 Presence of coronary angioplasty implant and graft; F17.210 Nicotine dependence, cigarettes, uncomplicated; Z79.01 Long term (current) use of anticoagulants; Z85.3 Personal history of malignant neoplasm of breast
CPT/HCPCS: A9270-GY; J2250; V2632

== ENCOUNTER 2017-05-13 04:26 | Observation (INO) | payer OTHER ==
[2017-05-13] MEDS ORDERED: NS 0.9% 1000 ML* 1,000 ML IV ONE (04:46)
[2017-05-13] MEDS ORDERED: Metoclopramide IV* 5 MG/ML 2 ML VIAL IV ONE ×2 (04:46→07:04)
[2017-05-13] MEDS ORDERED: Morphine INJ* 2 MG/ML 1 ML SYRINGE IV ONE ×2 (04:46→07:04)
[2017-05-13 05:10] LABS: Hematocrit 47 % (35-47); Hemoglobin 15.9 g/dl (12.0-16.0); Mean Corpuscular HGB Conc 34 g/dl (31-36); Mean Corpuscular Hemoglobin 29 pg (27-31); Mean Corpuscular Volume 86 fL (80-97); Mean Platelet Volume 8 um3 (7.4-10.4); Red Blood Count 5.53 10^6/ul (4.0-5.4); Red Cell Distribution Width 15 % (10.5-15); White Blood Count 10.5 10^3/ul (3.5-10.8)
--- NOTE | 2017-05-13 05:10 | ED ---
Bernice Chatterjee Edward, scribed for Chacorta Leon MD on 05/13/17 at 0433 . HPI Chest Pain - HPI Summary HPI Summary: 62 y/o female presents to ED c/o CP for 2 days. CP has been getting progressively worse and this morning was rated 10/10 at triage. Patient also c/ o nausea dry heaving. Denies fever. PMHx Achalasia (last episode a couple of months ago). - History of Current Complaint Hx Obtained From: Patient Onset/Duration: Started Days Ago Timing: Lasting Days Current Severity: Severe Pain Intensity: 10 Pain Scale Used: 0-10 Numeric Associated Signs and Symptoms: Positive: Nausea, Other: - Dry heaving. Negative : Fever Related History: Similar Episode/Dx as: - PMHx Achalasia - Additional Pertinent History Primary Care Physician: [id number] - Allergy/Home Medications Allergies/Adverse Reactions: Allergies Allergy/AdvReac Type Severity Reaction Status Date / Time Albumin Human [From Botox] Allergy Severe Anaphylatic Verified 05/13/17 05:43 Shock Iodinated Contrast Media Allergy Severe Anaphylatic Verified 05/13/17 05:43 [IV CONTRAST DYE] Shock Iodine Allergy Severe Anaphylatic Verified 05/13/17 05:43 Shock NSAIDs Allergy Severe Hives Verified 05/13/17 05:43 OnabotulinumtoxinA Allergy Severe Anaphylatic Verified 05/13/17 05:43 [From Botox] Shock Penicillins Allergy Severe Anaphylatic Verified 05/13/17 05:43 Shock Adhesive Tape Allergy Itching Verified 05/13/17 05:43 Chlorhexidine Allergy Rash And Verified 05/13/17 05:43 [From Hibiclens] Itching Latex Allergy Hives Verified 05/13/17 05:43 Povidone Iodine Allergy Itching Verified 05/13/17 05:43 [From Betadine] Shellfish Allergy Allergy Anaphylatic Verified 05/13/17 05:43 Shock BEES Allergy Anaphylatic Uncoded 05/13/17 05:43 Shock ENVIRONMENTAL/SEASONAL Allergy ITCHY,WATERY Uncoded 05/13/17 05:43 HAYFEVER EYES, SNEEZE, CONGESTION PMH/Surg Hx/FS Hx/Imm Hx Previously Healthy: No Endocrine/Hematology History: Reports: Hx Anticoagulant Therapy - plavix, Hx Anemia - possible Denies: Hx Diabetes, Hx Thyroid Disease Cardiovascular History: Reports: Hx Angina, Hx Coronary Artery Disease - 2 stents, Hx Deep Vein Thrombosis, Hx Embolism, Hx Hypercholesterolemia, Hx Hypertension - on meds, Hx Myocardial Infarction, Hx Syncope Denies: Hx Congestive Heart Failure, Hx Pacemaker/ICD, Hx Valvular Heart Disease, Other Cardiovascular Problems/Disorders Respiratory History: Reports: Hx Chronic Obstructive Pulmonary Disease (COPD) - Pt denies though providers have diagnosed it, Hx Pneumonia, Hx Pulmonary Embolism - 30 yrs ago, Hx Seasonal Allergies, Other Respiratory Problems/ Disorders - SMOKER Denies: Hx Asthma, Hx Sleep Apnea GI History: Reports: Hx Diverticulosis, Hx Gastroesophageal Reflux Disease, Hx Hiatal Hernia - 3 surgeries, Other GI Disorders - achelasia, Fernández's esophagus , Denies: Hx Ulcer History: Reports: Hx Kidney Infection - in the past, Hx Kidney Stones - LAST 12/2015- NO PROBLEMS SINCE PER PATIENT Denies: Hx Dialysis, Hx Renal Disease, Other Problems/Disorders Musculoskeletal History: Reports: Hx Arthritis - LEFT KNEE, BACK, Hx Back Problems - L1 fx, Other Musculoskeletal History - L1 fx Denies: Hx Osteoporosis Sensory History: Reports: Hx Cataracts - maryuri, Hx Contacts or Glasses - glasses Denies: Hx Hearing Aid Opthamlomology History: Reports: Hx Cataracts - maryuri, Hx Contacts or Glasses - glasses Neurological History: Reports: Hx Spinal Cord Injury - L1, Hx Transient Ischemic Attacks (TIA), Other Neuro Impairments/Disorders - POSSIBLE SMALL TIA'S - 3 yrs ago Psychiatric History: Reports: Hx Anxiety - in the past Denies: Hx Panic Disorder - Cancer History Cancer Type, Location and Year: RT BREAST CA, 2009 HAD A BILATERAL MASTECTOMY Hx Chemotherapy: No Hx Radiation Therapy: No - Surgical History Surgery Procedure, Year, and Place: RT LUMPECTOMY 02/2010, BILATERAL MASTECTOMY ,. 2001& 2002 CARDIAC STENT AT [facility],. LEFT KNEE SURGERY X10,. BILATERAL SHOULDER SURGERY,. ESPOHOGEAL SURGERY,1996, 2014. PARTIAL HYSTERECTOMY, 1976. APPENDIX A CHILD,. CHEST TUBE, 1996. ESOPHAGEAL DILATION. NISSIN FUNDOLPICATION multiple Hx Anesthesia Reactions: No - Immunization History Date of Tetanus Vaccine: up to date Date of Influenza Vaccine: 06/2016 Infectious Disease History: Denies: Hx Clostridium Difficile, Hx Hepatitis, Hx Human Immunodeficiency Virus (HIV), Hx of Known/Suspected MRSA, Hx Shingles, Hx Tuberculosis, Hx Known/ Suspected VRE, Hx Known/Suspected VRSA, History Other Infectious Disease, Traveled Outside the [place] in Last 30 Days - Family History Known Family History: Positive: Cardiac Disease - Social History Alcohol Use: None Hx Substance Use: No Substance Use Type: Reports: None Substance Use Comment - Amount & Last Used: prescribed Hx Tobacco Use: Yes Smoking Status (MU): Heavy Every Day Tobacco Smoker Type: Cigarettes Amount Used/How Often: 10 CIGARETTES A WEEK X 45 YEARS Length of Time of Smoking/Using Tobacco: 40+ YEARS Have You Smoked in the Last Year: Yes Review of Systems Constitutional: Negative - no fever Eyes: Negative ENT: Negative Positive: Chest Pain Respiratory: Negative Positive: Vomiting - Heaving, Nausea Genitourinary: Negative Musculoskeletal: Negative Skin: Negative Neurological: Negative Psychological: Normal All Other Systems Reviewed And Are Negative: Yes Physical Exam Triage Information Reviewed: Yes Vital Signs On Initial Exam: Initial Vitals Temp Pulse Resp BP 97.6 F 110 22 154/106 05/13/17 04:29 05/13/17 04:29 05/13/17 04:29 05/13/17 04:29 Vital Signs Reviewed: Yes Appearance: Positive: Pain Distress - mild discomfort, Thin Skin: Positive: Warm Head/Face: Positive: Normal Head/Face Inspection Eyes: Positive: SHAY ENT: Positive: Hearing grossly normal Neck: Positive: Supple Respiratory/Lung Sounds: Positive: Breath Sounds Present Cardiovascular: Positive: RRR Abdomen Description: Positive: Nontender, No Organomegaly, Soft Bowel Sounds: Positive: Present Musculoskeletal: Positive: Strength/ROM Intact Neurological: Positive: Alert, Oriented to Person Place, Time Psychiatric: Positive: Affect/Mood Appropriate Diagnostics - Vital Signs Vital Signs Temp Pulse Resp BP 05/13/17 04:29 97.6 F 110 22 154/106 - Laboratory Result Diagrams: 05/13/17 05:00 05/13/17 05:00 Lab Statement: Any lab studies that have been ordered have been reviewed, and results considered in the medical decision making process. - EKG 1 EKG Interpretation: 05:06 - Sinus Rhythm, non-specific T wave abnormalities Chest Pain Course/Dx - Course Assessment/Plan: 62 y/o female presents to ED c/o CP for 2 days. CP has been getting progressively worse and this morning was rated 10/10 at triage. Patient also c/o nausea dry heaving. Denies fever. PMHx Achalasia (last episode a couple of months ago). EKG - 05:06 - Sinus Rhythm, non-specific T wave abnormalities. Sign out to Dr. Shaw at shift change. - Diagnoses Provider Diagnoses: Chest pain, unspecified, Achalasia - Provider Notifications Instructed by Provider To: Admit As Inpatient Discharge - Discharge Plan Condition: Fair Disposition: ADMITTED TO [facility] Discharge Disposition Comment: Sign out to Dr. Shaw at shift change. The documentation as recorded by the Bernice vyas Edward accurately reflects the service I personally performed and the decisions made by , Chacorta Leon MD.
[2017-05-13 05:24] LABS: ALT 8 U/L (7-52); AST 16 U/L (13-39); Albumin 4.1 g/dL (3.2-5.2); Alkaline Phosphatase 61 U/L (34-104); Anion Gap 12 mmol/L (2-11); BUN/Creatinine Ratio 19.2 (8-20); Blood Urea Nitrogen 14 mg/dL (6-24); C Reactive Protein 5.25 mg/L (< 5.00); CO2 Carbon Dioxide 23 mmol/L (22-32); Calcium 9.1 mg/dL (8.6-10.3); Chloride 98 mmol/L (101-111); EGFR African American 103.9 (>60); EGFR Non-African American 80.8 (>60); Globulin 3.3 g/dL (2-4); Glucose 109 mg/dL (70-100); Lipase < 10 U/L (11.0-82.0); Magnesium 1.6 mg/dL (1.9-2.7); Potassium 2.9 mmol/L (3.5-5.0); Sodium 133 mmol/L (133-145); Total Protein 7.4 g/dL (6.4-8.9)
[2017-05-13] MEDS ORDERED: Potassium Chloride LIQUID* 20 MEQ PACKET PO ONE (05:26)
[2017-05-13 05:42] LABS: Troponin I 0.02 ng/mL (<0.04)
[2017-05-13] MEDS: KCL 10 MEQ/50 ML IVPREMIX* 10 MEQ/50 ML BAG IV SCH ×2 (06:08→07:15)
[2017-05-13 08:51] LABS: Urine Bacteria Absent (Absent); Urine Bilirubin Negative (Negative); Urine Glucose Negative (Negative); Urine Nitrite Negative (Negative)
[2017-05-13] MEDS ORDERED: Morphine INJ* 4 MG/ML 1 ML SYRINGE IV ONE (09:22)
[2017-05-13] MEDS: PROCHLORPERAZINE INJ 5 MG/ML 2 ML VIAL IV PRN ×2 (09:36→20:57)
--- NOTE | 2017-05-13 09:57 | RAD ---
Indication: Abdominal pain, nausea and vomiting. Flat and upright views of the abdomen demonstrates no free air. Nonspecific bowel gas pattern is noted. There is air in the colon and rectum. IMPRESSION: No free air is noted. Nonspecific bowel gas pattern is noted.
[2017-05-13] MEDS ORDERED: Morphine INJ* 2 MG/ML 1 ML SYRINGE IV PRN (10:02)
[2017-05-13] MEDS ORDERED: Albuterol HFA INHALER* 8 gm MDI INH PRN (10:04)
[2017-05-13] MEDS ORDERED: Magnesium Sulfate 2 GM IV* 2 GM/50 ML BAG IVPB ONE (10:12)
--- NOTE | 2017-05-13 11:54 | HP ---
CC: Dr. Combs HISTORY AND PHYSICAL: DATE OF ADMISSION: 05/13/17 PRIMARY CARE PHYSICIAN: Dr. Combs. CHIEF COMPLAINT: Dry heaves and chest pain. HISTORY OF PRESENT ILLNESS: Ms. Prasad is a 61-year-old female with a history of known achalasia as well as CAD, status post AR x2, anemia, history of DVT and PE, anxiety, breast cancer in the right breast, who presents to the hospital with three days of progressive dry heaves and chest pain. The patient states this is similar to her previous episodes of exacerbation of her achalasia. She was hoping that it would pass at home, but she states that the dry heaves have been getting progressively worse and she has been unable to take anything p.o. for the past one to two days including her medications. They were last taken two nights ago. She reports a mid sternal and mid abdominal pain associated with this as well. This feels like her normal pain with achalasia. Denies any recent changes in her medications. Has not had any shortness of breath, fever or chills. Reports having normal bowel movements. They have been little bit looser lately, has been passing flatus. No blood in the stool. No dysuria. The patient follows up with Dr. Buckley, thoracic surgeon in [place]. She states that back in February she saw him and had her PEG tube removed at that time as it was not functioning correctly. Since then she has been taking food orally with no issues. PAST MEDICAL HISTORY: Achalasia, CAD, status post AR, anemia, DVT with PE, anxiety, breast cancer, kidney stones, osteoarthritis, compression fracture, anxiety. PAST SURGICAL HISTORY: Right breast lumpectomy, bilateral mastectomy with implant reconstruction, which failed on the left, left knee arthroscopy, Godwin fundoplication x2, appendectomy, partial hysterectomy, esophageal dilation, bilateral shoulder surgery, PEG tube placement and removal. HOME MEDICATIONS: 1. Benadryl 25 mg by mouth every 6 hours as needed for itching. 2. Amlodipine 10 mg by mouth daily. 3. Simvastatin 20 mg by mouth daily. 4. Compazine 10 mg by mouth every 6 hours as needed for nausea. 5. Zofran 4 mg by mouth every 6 hours as needed for nausea. 6. Omeprazole 40 mg by mouth daily. 7. Nitroglycerin 0.4 mg sublingual every 5 minutes as needed for chest pain. 8. Morphine 50 mg by mouth every 4 hours as needed for pain. 9. Morphine sulfate 30 mg by mouth three times daily. 10. Metoprolol succinate 50 mg by mouth daily. 11. Epinephrine 0.3 mg injected once as needed for allergy symptoms. 12. Vitamin B12 1000 mcg IM monthly. 13. Plavix 75 mg by mouth daily. 14. Soma 350 mg by mouth three times daily. 15. Optivar one drop in both eyes two times daily. 16. Albuterol 2 puffs inhaled every 4 hours as needed for shortness of breath or wheezing. 17. Tylenol 1000 mg by mouth three times daily as needed for pain. ALLERGIES: The patient has allergies to ALBUMIN, IV CONTRAST DYE, IODINE, NSAIDS, ONABOTULINUM TOXIN A, PENICILLINS, ADHESIVE TAPE, CHLORHEXIDINE, LATEX, POVIDONE IODINE, SHELLFISH ALLERGY, BEES AND ENVIRONMENTAL HAY FEVER. FAMILY HISTORY: Significant for father with AR. Two brothers with AR. Mother with AFib. SOCIAL HISTORY: The patient is a half-pack per day smoker x50 plus years. Denies any alcohol or illicit drug use. REVIEW OF SYSTEMS: A 12-point review of systems negative except for that as noted in the HPI. PHYSICAL EXAMINATION GENERAL: The patient is a middle aged female, lying in bed in no apparent distress. VITAL SIGNS: On admission, temperature 97.6, heart rate of 110, respiratory rate of 22, O2 saturation 96% on room air, blood pressure 154/106. HEENT: Head: Normocephalic, atraumatic. Eyes: Pupils equal, round, and reactive to light and accommodation. Anicteric sclerae. ENT: Moist mucous membranes. No cervical adenopathy. LUNGS: Clear to auscultation bilaterally. No wheezes, rales or rhonchi. CARDIOVASCULAR: Regular rate and rhythm. S1 and S2 present. No murmurs, gallops or rubs. ABDOMEN: Soft, nondistended. Multiple surgical scars. Some tenderness to palpation in the left lower quadrant. Bowel sounds are positive. EXTREMITIES: No cyanosis, clubbing or edema. SKIN: Warm, dry and well perfused. NEUROLOGIC: The patient is alert and oriented x3. No focal neurological deficits. DIAGNOSTIC STUDIES/LAB DATA: White blood cell count 10.5, hematocrit of 47, platelets 322. Sodium 133, potassium 2.9, chloride of 98, carbon dioxide of 23 , BUN of 14, creatinine of 0.73, glucose of 109. Lactic acid of 1.6. Calcium 9.1, magnesium 1.6. LFTs within normal limits. Troponin 0.02. CRP is 5.2. Lipase less than 10. UA with 2+ protein, 1+ ketones, 2+ blood. Trace leukocyte esterase, 2+ rbc, squamous and hyaline cast present. EKG personal review shows normal sinus rhythm with PAC. Abdominal x-ray, personal review shows no evidence of obstruction, and nonspecific bowel gas pattern, no free air. ASSESSMENT AND PLAN: Nausea, dry heave and chest pain consistent with achalasia exacerbation in a 62-year-old female with a past medical history of achalasia, coronary artery disease, deep venous thrombosis/pulmonary embolism, breast cancer, transient ischemic attack, osteoarthritis, anxiety. 1. Achalasia exacerbation. Similar to the patient's prior presentation. She has had one negative troponin, normal EKG. We will check an additional troponin , but I do not think she needs further cardiac work up at this time. Check CXR. The patient is usually treated conservatively with IV pain medications and antiemetics and the symptoms usually resolve within a few days. I do not think she needs a GI consult at this point. However, if she is not improving she may need evaluation to consider for possible dilatation. Continue the patient on IV fluids and try to minimize the amount of p.o. medications she getting. We will transition her to IV Pepcid. 2. Hypertension. Continue home amlodipine, metoprolol. 3. Coronary artery disease. Continue Plavix. Can resume statin tomorrow. Metoprolol as above. 4. DVT prophylaxis: Lovenox subcu. 5. Code status: The patient is a full code. TIME SPENT: Total time spent on this admission 45 minutes, with over half the time spent [id number] with the patient in counseling and coordinating care. [id number]/CPS #: [id number] MTDD
[2017-05-13] MEDS: Metoprolol Succinate XL TAB* 50 MG PO SCH (12:56)
[2017-05-13] MEDS: Clopidogrel TAB* 75 MG PO SCH (12:56)
[2017-05-13] MEDS: Enoxaparin(*) 40 MG/0.4 ML SYR SUBCUT SCH (12:56)
[2017-05-13] MEDS: Famotidine IV* 10 MG/ML 2 ML (20 mg) IV SLOW PU SCH ×2 (12:56→20:58)
[2017-05-13] MEDS: Ondansetron INJ* 2 MG/ML VIAL IV PRN ×2 (12:56→17:05)
[2017-05-13] MEDS: Azelastine 0.05% (OPHTH)(NF) 6 ML BTL BOTH EYES SCH ×2 (12:57→21:05)
[2017-05-13] MEDS: NS 0.9% 1000 ML* 1,000 ML IV SCH ×2 (12:57→23:24)
[2017-05-13] MEDS: Morphine INJ* 4 MG/ML 1 ML SYRINGE IV PRN ×3 (14:01→22:02)
--- NOTE | 2017-05-13 16:05 | RAD ---
INDICATION: Chest pain, history of achalasia. COMPARISON: Comparison is made with a prior chest x-ray study from January 14, 2017. TECHNIQUE: 2 portable views of the chest were obtained. FINDINGS: Cardiac and mediastinal contours appear to be within normal limits. The lungs are hyperinflated and clear. The patient is status post left mastectomy. There is an implant which projects over the right hemithorax. IMPRESSION: FINDINGS SUGGESTIVE OF COPD, NO EVIDENCE FOR ACUTE FINDING.
[2017-05-13] MEDS: Carisoprodol TAB* 350 MG PO SCH (20:58)
[2017-05-14] MEDS: Morphine INJ* 4 MG/ML 1 ML SYRINGE IV PRN ×3 (02:38→10:07)
[2017-05-14] MEDS: Ondansetron INJ* 2 MG/ML VIAL IV PRN ×3 (06:07→13:38)
[2017-05-14 06:19] LABS: BUN/Creatinine Ratio 12.2 (8-20); Calcium 7.9 mg/dL (8.6-10.3); EGFR African American 164.6 (>60); Potassium 3.1 mmol/L (3.5-5.0)
[2017-05-14] MEDS ORDERED: NS 0.9% w/ 40 Meq KCL 1000 ML* 1,000 ML IV SCH (08:00)
[2017-05-14] MEDS: Carisoprodol TAB* 350 MG PO SCH (08:58)
[2017-05-14] MEDS: Metoprolol Succinate XL TAB* 50 MG PO SCH (08:58)
[2017-05-14] MEDS: Famotidine IV* 10 MG/ML 2 ML (20 mg) IV SLOW PU SCH (08:58)
[2017-05-14] MEDS: Azelastine 0.05% (OPHTH)(NF) 6 ML BTL BOTH EYES SCH (08:59)
[2017-05-14] MEDS: Clopidogrel TAB* 75 MG PO SCH (08:59)
[2017-05-14] MEDS ORDERED: SIMVASTATIN PO SCH (09:00)
[2017-05-14] MEDS ORDERED: amLODIPine TAB* 5 MG PO SCH (09:00)
[2017-05-14] MEDS ORDERED: ATORVASTATIN 10 MG PO SCH ×2 (09:29→10:30)
[2017-05-14] MEDS: Enoxaparin(*) 40 MG/0.4 ML SYR SUBCUT SCH (10:10)
--- NOTE | 2017-05-14 10:29 | ED ---
Mariam Chatterjee Auryana, scribed for Jose Luis Shaw MD on 05/13/17 at 0923 . Progress - Progress Note Progress Note: SIGN OUT TO DR. SHAW AT 07:00 PENDING CXR AND FURTHER WORKUP/MANAGEMENT 62 year old female presents with nausea and chest pain starting a few days ago. She reports that her abdominal pain is returning. Patient has had similar episodes in the past. PMHx is significant for achalasia, and CAD with stent placement ( 2005). Her GI specialist is in [place], [place]. Physical Exam : Constitutional: Well-developed, Well-nourished, Alert. (-) Distressed Skin: Warm, Dry HENT: Normocephalic; Atraumatic Eyes: Conjunctiva normal Neck: Musculoskeletal ROM normal neck. (-) JVD, (-) Stridor, (-) Tracheal deviation Cardio: Rhythm regular, rate normal, Heart sounds normal; Intact distal pulses; The pedal pulses are 2+ and symmetric. Radial pulses are 2+ and symmetric. (-) Murmur Pulmonary/Chest wall: Effort normal. (-) Respiratory distress, (-) Wheezes, (-) Rales Abd: Soft, (-) Tenderness, (-) Distension, (-) Guarding, (-) Rebound Musculoskeletal: (-) Edema Lymph: (-) Cervical adenopathy Neuro: Alert, Oriented x3 Psych: Mood and affect Normal DDx: achalasia, viral illness, ACS - Results/Orders Results/Orders: ABD XR - Course/Dx - Course Course Of Treatment: SIGN OUT TO DR. SHAW AT 07:00 PENDING CXR AND FURTHER WORKUP/MANAGEMENT. 62 year old female presents with nausea and chest pain starting a few days ago. She reports that her abdominal pain is returning. Patient has had similar episodes in the past. PMHx is significant for achalasia , and CAD with stent placement ( 2005). Her GI specialist is in [place], [place]. Physical Exam is normal. Blood work shows RBC 5.53, potassium 2.9, chloride 98 , anion gap 12, glucose 109, Mg 1.6, troponin (#1 and #2) 0.02, CRP 5.25,lipase <10. LFTs are WNL. ABD XR is negative. EKG - Sinus Rhythm, non-specific T wave abnormalities. UA is contaminated. The patient was discussed with Dr. Spence, who accepts the patient for admission. Patient is agreeable with the plan. DDx: achalasia, viral illness, ACS. Dx: chest pain unspecified, achalasia. - Diagnoses Provider Diagnoses: Chest pain, unspecified, Achalasia - Provider Notifications Discussed Care Of Patient With: Neil Spence Time Discussed With Above Provider: 09:32 - agrees to admit patient Instructed by Provider To: Admit As Observation The documentation as recorded by the Mariam vyas Auryana accurately reflects the service I personally performed and the decisions made by , Jose Luis Shaw MD.
[2017-05-14] MEDS ORDERED: Morphine ORAL.SOLN 10 mg* 2 MG/ML UDC 5 ml PO PRN (10:37)
--- NOTE | 2017-05-14 13:27 | PN ---
Subjective Date of Service: 05/14/17 Interval History: This is a 62 yo female with a PMH significant for achalasia, who presented to the ED on 05/13/17 with concern for dry heaving and chest pain x 3 days with progressive worsening. She reports having a feeling that something is stuck in her chest, but "it always feels that way." She has had episodes like this previously but states "it's been a few months" since her last episode. The patient does not currently have a gps navigation installer. She used to see Dr. Hurd, who referred her to Dr. Buckley (cardiothoracic surgery) in [place]; per her report, she was told that there was nothing more for GI to offer. She states she had an 8 week hospitalization last year, secondary to a 50# weight loss from her achalasia and subsequent medical issues. She reports having tried Botox and states she was told she was allergic to this. She has also had dilatations, but it is unclear as to what happened following the dilatation (pt states, "It didn't work.") She was ultimately given a PEG tube during her hospitalization. She states she had "multiple issues with it." Patient reports that the tube would "leak all the time." Around February, the patient reports that the tube was deemed to be malfunctioning and was removed. She states that her doctor wanted to place a new one, but she declined, due to her previous dissatisfaction with the tube. She reports that she has been managing her symptoms at home with medications and has been eating "relatively well." She did become a bit tearful, reporting, "I've lost more weight than I realized." The patient reports better pain control. She denies any chest pain currently, having just received morphine. Denies nausea, vomiting. No other acute conerns. She is now requesting to go home. She feels as if she could manage her symptoms at home, stating she has morphine and Zofran at home. She feels comfortable advancing her own diet. We did discuss the concern that she has not attempted anything beyond clears and that she is at risk for another exacerbation without close follow-up with Dr. Buckley. Plan to advance diet here and monitor her progress, which patient agrees to. Family History: Unchanged from Admission Social History: Unchanged from Admission Past Medical History: Unchanged from Admission Objective Active Medications: Albuterol (Ventolin Hfa Inhaler*) 2 puff INH Q4H PRN PRN Reason: WHEEZING Amlodipine Besylate (Norvasc Tab*) 10 mg PO QAM [facility] Last Admin: 05/14/17 08:59 Dose: 10 mg Atorvastatin Calcium (Lipitor*) 10 mg PO DAILY@0900 [facility] Last Admin: 05/14/17 10:25 Dose: Not Given Azelastine HCl (Optivar 0.05% (Nf)) 1 drop BOTH EYES BID [facility] Last Admin: 05/14/17 08:59 Dose: Not Given Carisoprodol (Soma Tab*) 350 mg PO BID [facility] Last Admin: 05/14/17 08:58 Dose: 350 mg Clopidogrel Bisulfate (Plavix Tab*) 75 mg PO QAM [facility] Last Admin: 05/14/17 08:59 Dose: 75 mg Enoxaparin Sodium (Lovenox(*)) 40 mg SUBCUT Q24H [facility] Last Admin: 05/14/17 10:10 Dose: 40 mg Famotidine (Pepcid Iv*) 20 mg IV SLOW PU BID [facility] Last Admin: 05/14/17 08:58 Dose: 20 mg Potassium Chloride/Sodium Chloride (Ns 0.9% W/ 40 Meq Kcl 1000 Ml*) 1,000 mls @ 100 mls/hr IV PER RATE [facility] Stop: 05/15/17 17:59 Last Admin: 05/14/17 08:56 Dose: 100 mls/hr Metoprolol Succinate (Toprol Xl Tab*) [facility] Admin: 05/14/17 08:58 Dose: 50 mg Morphine Sulfate (Morphine Inj (Syringe)*) 4 mg IV Q4H PRN PRN Reason: PAIN Last Admin: 05/14/17 10:07 Dose: 4 mg Morphine Sulfate (Ms Contin(*)) 30 mg PO TID [facility] Morphine Sulfate (Morphine Oral.Soln 10 Mg*) 15 mg PO Q4H PRN PRN Reason: breakthrough pain Ondansetron HCl (Zofran Inj*) 4 mg IV Q4H PRN PRN Reason: NAUSEA/VOMITING Last Admin: 05/14/17 10:08 Dose: 4 mg Prochlorperazine Edisylate (Compazine Inj*) 10 mg IV Q6H PRN PRN Reason: NAUSEA/VOMITING Last Admin: 07/24/17 20:57 Dose: 10 mg Vital Signs 05/13/17 05/13/17 05/13/17 14:01 15:01 15:22 Temperature 98.1 F Pulse Rate 58 Respiratory 16 16 19 Rate Blood Pressure 152/88 (mmHg) O2 Sat by Pulse 97 Oximetry 05/13/17 05/13/17 05/13/17 16:18 18:02 19:02 Temperature Pulse Rate Respiratory 19 18 20 Rate Blood Pressure (mmHg) O2 Sat by Pulse Oximetry 05/13/17 05/13/17 05/13/17 19:32 20:00 20:58 Temperature 98.3 F Pulse Rate 59 Respiratory 19 19 19 Rate Blood Pressure 158/92 (mmHg) O2 Sat by Pulse 95 Oximetry 05/13/17 05/13/17 05/13/17 22:02 22:58 23:02 Temperature Pulse Rate Respiratory 17 19 19 Rate Blood Pressure (mmHg) O2 Sat by Pulse Oximetry 05/14/17 05/14/17 05/14/17 00:23 02:38 03:28 Temperature 98.0 F 98.1 F Pulse Rate 57 51 Respiratory 16 17 15 Rate Blood Pressure 140/82 131/89 (mmHg) O2 Sat by Pulse 97 95 Oximetry 05/14/17 05/14/17 05/14/17 03:38 06:07 07:07 Temperature Pulse Rate Respiratory 16 18 16 Rate Blood Pressure (mmHg) O2 Sat by Pulse Oximetry 05/14/17 05/14/17 05/14/17 07:29 08:00 08:58 Temperature 98.4 F Pulse Rate 51 Respiratory 16 16 16 Rate Blood Pressure 158/74 (mmHg) O2 Sat by Pulse 98 Oximetry 05/14/17 10:07 Temperature Pulse Rate Respiratory 16 Rate Blood Pressure (mmHg) O2 Sat by Pulse Oximetry Oxygen Devices in Use Now: None Appearance: Middle aged female, lying in bed, NAD Eyes: No Scleral Icterus Ears/Nose/Mouth/Throat: Clear Oropharnyx, Mucous Membranes Moist Neck: NL Appearance and Movements; NL JVP Respiratory: Symmetrical Chest Expansion and Respiratory Effort, Clear to Auscultation Cardiovascular: NL Sounds; No Murmurs; No JVD, RRR Abdominal: NL Sounds; No Tenderness; No Distention, - - healed incision from PEG tube removal, other healed incisions Extremities: No Edema, No Clubbing, Cyanosis Neurological: Alert and Oriented x 3 Lines/Tubes/Other Access: Clean, Dry and Intact Peripheral IV Nutrition: Taking PO's Result Diagrams: 05/13/17 05:00 05/14/17 05:48 Assess/Plan/Problems-Billing Assessment: Ms. Prasad is a 62 yo female with a PMH significant for achalasia w/ PEG placement and recent removal, CAD, anemia, DVT/PE, and anxiety presented to the ED on 05/13/17 with concern for dry heaving and chest pain x 3 days. - Patient Problems (1) Achalasia Code(s): K22.0 - ACHALASIA OF CARDIA Comment: With acute exacerbation and likely the cause of her chest pain. Restart home extended and immediate relief morphine. Continue Zofran and supportive care. Patient has declined PEG tube and has been attempting to get nutritional needs via PO. Patient with continued weight loss over past few months. She is open to discussion re: options with Dr. Buckley. Outpatient appointment made for Sunday 05/20 - patient advised not to miss this appointment. Discussed in side consult with GI; patient would not be able to have dilatation here due to complexity of achalasia and lack of necessary equipment. Recommends patient continue treatment with her cardiothoracic surgeon, Dr. Buckley, in [place]. Obtain records from [facility]. (2) Chest pain Code(s): R07.9 - CHEST PAIN, UNSPECIFIED Comment: Troponin negative CP likely secondary to achalasia. Continue pain medication regimen, PPI. (3) Hypokalemia Code(s): E87.6 - HYPOKALEMIA Comment: Repleted Recheck BMP in 3 days as outpatient. (4) Hypomagnesemia Code(s): E83.42 - HYPOMAGNESEMIA Comment: Repleted Recheck mag in 3 days as outpatient. (5) CAD (coronary artery disease) Code(s): I25.10 - ATHSCL HEART DISEASE OF [place] CORONARY ARTERY W/O ANG PCTRS Comment: Continue clopidogrel, statin, metoprolol. (6) HTN (hypertension) Code(s): I10 - ESSENTIAL (PRIMARY) HYPERTENSION Comment: SBP 130s-150s Continue metoprolol and amlodipine. (7) DVT prophylaxis Comment: SQ Lovenox Status and Disposition: OBV admit. D/c to home with follow-up with Dr. Buckley.
[2017-05-14] MEDS ORDERED: Morphine TAB Extended Release (*) 30 MG TAB.ER PO SCH (14:00)
[2017-05-14 16:03] VITALS: BP 141/77
--- NOTE | 2017-05-15 11:38 | DS ---
DISCHARGE SUMMARY: DATE OF ADMISSION: 05/13/17 DATE OF DISCHARGE: 05/14/17 PROVIDER: Mini Qureshi NP ATTENDING PHYSICIAN: Dr. Rylee Pepper * (as dictated by Mini Qureshi NP) PRIMARY CARE PROVIDER: Dr. Trish Combs. PRIMARY DISCHARGE DIAGNOSIS: Achalasia exacerbation. SECONDARY DISCHARGE DIAGNOSES: 1. Achalasia. 2. Coronary artery disease, status post myocardial infarction. 3. Anemia. 4. Deep venous thrombosis and pulmonary embolism. 5. Anxiety. 6. History of breast cancer, status post right breast lumpectomy, bilateral mastectomy with implant reconstruction, which failed on the left. 7. Kidney stones. 8. Osteoarthritis. 9. Compression fracture. MEDICATIONS AT DISCHARGE: 1. Simvastatin 20 mg at bedtime. 2. Benadryl 25 mg q.6 hours p.r.n. 3. Amlodipine 10 mg q.a.m. 4. Compazine 10 mg q.6 hours p.r.n. 5. Zofran ODT 4 mg q.6 hours p.r.n. 6. Omeprazole 40 mg daily. 7. Nitroglycerin 0.4 mg sublingual q.5 minutes p.r.n. 8. Morphine IR 15 mg q.4 hours p.r.n. 9. Morphine sulfate ER 30 mg t.i.d. 10. Metoprolol succinate XL 50 mg q.a.m. 11. Epinephrine 0.3 mg injected once p.r.n. 12. Vitamin B12 injection 1000 mcg IM monthly. 13. Clopidogrel 75 mg q.a.m. 14. Carisoprodol 350 mg b.i.d. 15. Optivar drop 1 drop to both eyes b.i.d. 16. Albuterol 2 puffs inhaled q.4 hours p.r.n. 17. Tylenol 1000 mg t.i.d. p.r.n. New medications at discharge: Potassium chloride 10 mEq daily. OUTPATIENT FOLLOWUP NEEDS: The patient has been ordered a repeat BMP and magnesium level to be drawn in 3 days. The patient is to continue taking her p.o. potassium until she follows up with her PCP next week for further monitoring of her electrolytes. HOSPITAL COURSE OF STAY: For full details, please refer to the H and P provided by Dr. Spence on 05/13/17. In summary, Ms. Prasad is a 62-year-old female with a history of known achalasia, who presented to the hospital with concern for 3 days of progressive dry heaving and chest pain. The patient follows with Dr. Buckley, cardiothoracic surgery in [place]. The patient reports last seeing Dr. Buckley in February, and, at that time, she had a PEG tube removed. Upon further investigation, the patient states that she requested to have it removed as it was not functioning. She was recommended to have another one placed, but she declined. Since then, she has been cooking her own food and tolerating oral intake, though she does admit that she had some recent weight loss, even with her reported improvement in achalasia symptoms. During her stay, the patient was treated conservatively with IV pain medication , antiemetics, and clear liquids. She had 2 negative troponins and a normal EKG. It was suspected that the chest pain was most likely secondary to achalasia. Her symptoms did resolve within a 24 hour period. The patient requested to go home and was able to tolerate a soft diet prior to discharge. She was able to demonstrate appropriate swallowing of her pills. I did discuss this case with our inpatient rural service engineer, who felt that since the patient has failed other treatment measures, including Botox and dilatation, that they were not be able to offer her any further treatment here. They recommended that she follow up with Dr. Buckley as soon as possible. They do not want to put a PEG tube in the patient, as she is someone who would require access to a cardiothoracic surgeon if any complications occurred. I did speak with Dr. Buckley's office and obtained an appointment for the patient for 05/20/17. I discussed this with the patient, stating that she needs to follow up with her doctor as scheduled. I did express my concern for her malnutrition and continued weight loss. I have also discussed with the patient that she may need to reconsider a PEG tube. She is open to discussing this again with Dr. Buckley next week. The concern is that the patient, if she continues to decline, may need a Palliative Care consult in the future, especially if she chooses not to pursue another PEG tube. CONCERNS AT DISCHARGE: Ms. Prasad is discharged to home on 05/14/17 with a planned followup with Dr. Buckley and her PCP, both next week. She is to have followup labs as previously indicated. DIET: Soft diet. ACTIVITY: As tolerated. CONDITION: Improved, stable. DISPOSITION: To home. TIME SPENT: Time spent on this discharge was approximately 45 minutes. Again, this is only a brief summary of the patient's hospital course of stay. For full details, please refer to the full medical record. If you have any further questions or need further assistance, please feel free to contact me at . MINI QURESHI, DAYNE [id number]/CPS #: [id number] [place]
[2017-05-15] MEDS ORDERED: Potassium Chloride LIQUID* 20 MEQ PACKET PO ONE (14:53)
== END 2017-05-14 16:25 | disposition home or self-care (01) ==
LOC: ED 04:26 → INTOOBSV 10:02 → MED 10:02
PROVIDERS: ADMIT Hospitalist; ATTEND Internal Medicine
DX: K22.0 Achalasia of cardia (principal); R07.9 Chest pain, unspecified; R11.0 Nausea; I25.10 Atherosclerotic heart disease of native coronary artery without angina pectoris; I25.2 Old myocardial infarction; D64.9 Anemia, unspecified; Z86.718 Personal history of other venous thrombosis and embolism; Z79.01 Long term (current) use of anticoagulants; Z95.5 Presence of coronary angioplasty implant and graft; F41.9 Anxiety disorder, unspecified; Z85.3 Personal history of malignant neoplasm of breast; Z86.711 Personal history of pulmonary embolism; N20.0 Calculus of kidney
CPT/HCPCS: 36415; 71010; 74000; 80048; 80053; 81003; 81015; 83605; 83690; 83735; 84484; 85025; 86140; 87086; 93005; 96361; 96365; 96366; 96372; 96375; 96376; 99284; A9270-GY; G0378; J0780; J1650; J2270; J2405; J3480

== ENCOUNTER 2017-06-16 10:58 | Emergency (ER) | payer OTHER ==
[2017-06-16] MEDS ORDERED: Pantoprazole IV* 40 MG IV ONE (11:31)
[2017-06-16] MEDS ORDERED: NS 0.9% 1000 ML* 1,000 ML IV ONE (11:31)
[2017-06-16] MEDS ORDERED: Ondansetron INJ* 2 MG/ML VIAL IV ONE ×2 (11:31→14:13)
[2017-06-16] MEDS ORDERED: HYDROmorphone* 1 MG/ML 1 ML SYR IV ONE (11:31)
[2017-06-16 13:08] LABS: Hematocrit 47 % (35-47); Hemoglobin 15.9 g/dl (12.0-16.0); Mean Corpuscular HGB Conc 34 g/dl (31-36); Mean Corpuscular Hemoglobin 29 pg (27-31); Mean Corpuscular Volume 83 fL (80-97); Mean Platelet Volume 8 um3 (7.4-10.4); Red Blood Count 5.58 10^6/ul (4.0-5.4); Red Cell Distribution Width 14 % (10.5-15); White Blood Count 10.4 10^3/ul (3.5-10.8)
[2017-06-16 13:23] LABS: Albumin 4.3 g/dL (3.2-5.2); BUN/Creatinine Ratio 27.9 (8-20); C Reactive Protein 2.25 mg/L (< 5.00); EGFR African American 112.8 (>60); EGFR Non-African American 87.7 (>60); Globulin 3.1 g/dL (2-4); Magnesium 1.9 mg/dL (1.9-2.7); Potassium 3.3 mmol/L (3.5-5.0); Total Bilirubin 0.8 mg/dL (0.2-1.0); Total Protein 7.4 g/dL (6.4-8.9)
[2017-06-16 13:26] LABS: Troponin I 0.02 ng/mL (<0.04)
[2017-06-16] MEDS ORDERED: HYDROmorphone* 2 MG/ML 1 ML SYR IV SLOW PU ONE (14:13)
--- NOTE | 2017-06-16 14:59 | ED ---
Bernice Chatterjee Edward, scribed for Shila Rubio MD on 06/16/17 at 1112 . Abdominal Pain/Female - HPI Summary HPI Summary: 62 y/o female presents to the ED c/o gradual onset ABD pain starting five days ago that has gotten progressively worse since it started. The pain was rated 10/ 10 in severity; a constant pain described by clenching her fist. The pain radiates into her chest. Pt has had trouble eating - she states that food first gets stuck at the level of the thyroid cartilage and if is able to get through then will get stuck at the level of the epigastrium. Pt has lost at least 3 lbs in 3 days. Denies SOB, fever, blood in stool, and melena. In the ED course the pt is 5'7" and 102.7 lbs. The pt last had a tomato 5 days ago. The last liguid she had was laura ginny which she felt got stuck. PMHx [place] (2004 and 2005), breast CA, achalasia - last dilated last week at [place], GERD. SHx fundoplication, mastectomy. PCP Dr. Eddie Buckley ([phone] -[place]). Pt had an esophagram 06/13/17 and an esophageal dilation 06/10/17 with [facility]. Pt is willing to have PEG tube. - History of Current Complaint Chief Complaint: EDAbdPain Stated Complaint: ABD CRAMPING/CHEST PAIN Time Seen by Provider: 06/16/17 11:07 Hx Obtained From: Patient Onset/Duration: Gradual Onset, Lasting Days, Still Present Timing: Constant Severity Initially: Severe Severity Currently: Severe Pain Intensity: 10 Pain Scale Used: 0-10 Numeric Location: Epigastric Radiates: Yes Radiates to: Chest Character: Other: - She described the pain by clenching her fist Aggravating Factor(s): Food Alleviating Factor(s): Nothing Associated Signs and Symptoms: Positive: Decreased Appetite Allergies/Adverse Reactions: Allergies Allergy/AdvReac Type Severity Reaction Status Date / Time Albumin Human [From Botox] Allergy Severe Anaphylatic Verified 06/16/17 11:02 Shock Iodinated Contrast Media Allergy Severe Anaphylatic Verified 06/16/17 11:02 [IV CONTRAST DYE] Shock Iodine Allergy Severe Anaphylatic Verified 06/16/17 11:02 Shock NSAIDs Allergy Severe Hives Verified 06/16/17 11:02 OnabotulinumtoxinA Allergy Severe Anaphylatic Verified 06/16/17 11:02 [From Botox] Shock Penicillins Allergy Severe Anaphylatic Verified 06/16/17 11:02 Shock Adhesive Tape Allergy Itching Verified 06/16/17 11:02 Bee Venom Allergy Anaphylatic Verified 06/16/17 11:02 Shock Chlorhexidine Allergy Rash And Verified 06/16/17 11:02 [From Hibiclens] Itching Latex Allergy Hives Verified 06/16/17 11:02 Povidone Iodine Allergy Itching Verified 06/16/17 11:02 [From Betadine] Shellfish Allergy Allergy Anaphylatic Verified 06/16/17 11:02 Shock ENVIRONMENTAL/SEASONAL Allergy ITCHY,WATERY Uncoded 06/16/17 11:02 HAYFEVER EYES, SNEEZE, CONGESTION PMH/Surg Hx/FS Hx/Imm Hx Previously Healthy: No Endocrine/Hematology History: Reports: Hx Anticoagulant Therapy - plavix Denies: Hx Diabetes, Hx Thyroid Disease Cardiovascular History: Reports: Hx Angina, Hx Coronary Artery Disease - 2 stents, Hx Deep Vein Thrombosis, Hx Embolism, Hx Hypercholesterolemia, Hx Hypertension - on meds, Hx Myocardial Infarction, Hx Syncope Denies: Hx Congestive Heart Failure, Hx Pacemaker/ICD, Hx Valvular Heart Disease, Other Cardiovascular Problems/Disorders Respiratory History: Reports: Hx Chronic Obstructive Pulmonary Disease (COPD) - Pt denies though providers have diagnosed it, Hx Pneumonia, Hx Pulmonary Embolism - 30 yrs ago, Hx Seasonal Allergies Denies: Hx Asthma, Hx Sleep Apnea GI History: Reports: Hx Diverticulosis, Hx Gastroesophageal Reflux Disease, Hx Hiatal Hernia - 3 surgeries, Other GI Disorders - achalasia, Fernández's esophagus , Denies: Hx Ulcer History: Reports: Hx Kidney Infection, Hx Kidney Stones - LAST 12/2015- NO PROBLEMS SINCE PER PATIENT Denies: Hx Dialysis, Hx Renal Disease, Other Problems/Disorders Musculoskeletal History: Reports: Hx Arthritis - LEFT KNEE, BACK, Hx Back Problems - L1 fx, Other Musculoskeletal History - L1 fx Denies: Hx Osteoporosis Sensory History: Reports: Hx Cataracts - maryuri, Hx Contacts or Glasses - glasses Denies: Hx Hearing Aid Opthamlomology History: Reports: Hx Cataracts - maryuri, Hx Contacts or Glasses - glasses Neurological History: Reports: Hx Spinal Cord Injury - L1, Hx Transient Ischemic Attacks (TIA) Psychiatric History: Reports: Hx Anxiety Denies: Hx Panic Disorder - Cancer History Cancer Type, Location and Year: RT BREAST CA, 2009 HAD A BILATERAL MASTECTOMY Hx Chemotherapy: No Hx Radiation Therapy: No - Surgical History Surgery Procedure, Year, and Place: RT LUMPECTOMY 02/2010, BILATERAL MASTECTOMY ,. 2001& 2002 CARDIAC STENT AT [facility] IN [place],. LEFT KNEE SURGERY X10,. BILATERAL SHOULDER SURGERY,. ESPOHOGEAL SURGERY,1996, 2014. failed breast implant on left. PARTIAL HYSTERECTOMY, 1976. APPENDIX A CHILD,. CHEST TUBE, 1996. ESOPHAGEAL DILATION. NISSIN FUNDOLPICATION multiple Hx Anesthesia Reactions: No - Immunization History Date of Tetanus Vaccine: up to date Date of Influenza Vaccine: 06/2016 Infectious Disease History: Denies: Hx Clostridium Difficile, Hx Hepatitis, Hx Human Immunodeficiency Virus (HIV), Hx of Known/Suspected MRSA, Hx Shingles, Hx Tuberculosis, Hx Known/ Suspected VRE, Hx Known/Suspected VRSA, History Other Infectious Disease, Traveled Outside the in Last 30 Days - Family History Known Family History: Positive: Cardiac Disease - Father, 2 brothers - [place]. Mother - AFIB - Social History Occupation: Disabled Lives: Alone Alcohol Use: None Hx Substance Use: No Substance Use Type: Reports: None Substance Use Comment - Amount & Last Used: prescribed Hx Tobacco Use: Yes Smoking Status (MU): Heavy Every Day Tobacco Smoker Type: Cigarettes Amount Used/How Often: 10 CIGARETTES A WEEK X 45 YEARS Length of Time of Smoking/Using Tobacco: 40+ YEARS Have You Smoked in the Last Year: Yes Review of Systems Constitutional: Negative Eyes: Negative ENT: Negative Cardiovascular: Negative Respiratory: Negative Positive: Abdominal Pain, Other - Decreased appetite Genitourinary: Negative Musculoskeletal: Negative Skin: Negative Neurological: Negative Psychological: Normal All Other Systems Reviewed And Are Negative: Yes Physical Exam Triage Information Reviewed: Yes Vital Signs On Initial Exam: Initial Vitals Temp Pulse Resp BP Pulse Ox 98.1 F 103 16 143/106 95 06/16/17 11:02 06/16/17 11:02 06/16/17 11:02 06/16/17 11:02 06/16/17 11:02 Vital Signs Reviewed: Yes Appearance: Positive: Well-Nourished, Ill-Appearing, Pain Distress, Thin Skin: Positive: Warm, Skin Color Reflects Adequate Perfusion, Other - Midline scar between breasts to below her umbilicus Head/Face: Positive: Normal Head/Face Inspection Eyes: Positive: Conjunctiva Clear ENT: Positive: Normal ENT inspection Neck: Positive: Supple Respiratory/Lung Sounds: Positive: Clear to Auscultation, Breath Sounds Present Cardiovascular: Positive: RRR, Pulses are Symmetrical in both Upper and Lower Extremities, Other - Brisk capillary refill. Negative: Murmur Abdomen Description: Positive: No Organomegaly, Soft, Other: - Epigastrium tenderness. Negative: Distended, Guarding, Peritoneal Signs, Pulsatile Mass Bowel Sounds: Positive: Present Musculoskeletal: Positive: Strength/ROM Intact. Negative: Edema Left, Edema Right Neurological: Positive: Sensory/Motor Intact, Alert, Oriented to Person Place, Time, Facial Symmetry, Speech Normal Psychiatric: Positive: Normal Diagnostics - Vital Signs Vital Signs Temp Pulse Resp BP Pulse Ox 06/16/17 11:02 98.1 F 103 16 143/106 95 - Laboratory Lab Results: Lab Results 06/16/17 06/16/17 06/16/17 Range/Units 12:55 12:55 12:55 WBC 10.4 (3.5-10.8) 10^3/ul RBC 5.58 H (4.0-5.4) 10^6/ul Hgb 15.9 (12.0-16.0) g/dl Hct 47 (35-47) % MCV 83 (80-97) fL MCH 29 (27-31) pg MCHC 34 (31-36) g/dl RDW 14 (10.5-15) % Plt Count 307 (150-450) 10^3/ul MPV 8 (7.4-10.4) um3 Neut % (Auto) 71.1 (38-83) % Lymph % (Auto) 18.6 L (25-47) % Sanders % (Auto) 9.6 H (1-9) % Eos % (Auto) 0.2 (0-6) % Baso % (Auto) 0.5 (0-2) % Absolute Neuts (auto) 7.4 (1.5-7.7) 10^3/ul Absolute Lymphs (auto) 1.9 (1.0-4.8) 10^3/ul Absolute Monos (auto) 1.0 H (0-0.8) 10^3/ul Absolute Eos (auto) 0 (0-0.6) 10^3/ul Absolute Basos (auto) 0.1 (0-0.2) 10^3/ul Absolute Nucleated RBC 0.03 10^3/ul Nucleated RBC % 0.3 INR (Anticoag Therapy) 0.93 (0.89-1.11) APTT 31.7 (26.0-36.3) seconds Sodium 121 L (133-145) mmol/L Potassium 3.3 L (3.5-5.0) mmol/L Chloride 89 L (101-111) mmol/L Carbon Dioxide 16 L (22-32) mmol/L Anion Gap 16 H (2-11) mmol/L BUN 19 (6-24) mg/dL Creatinine 0.68 (0.51-0.95) mg/dL Est GFR ( Amer) 112.8 (>60) Est GFR (Non-Af Amer) 87.7 (>60) BUN/Creatinine Ratio 27.9 H (8-20) Glucose 74 (70-100) mg/dL Lactic Acid (0.5-2.0) mmol/L Calcium 9.0 (8.6-10.3) mg/dL Magnesium 1.9 (1.9-2.7) mg/dL Total Bilirubin 0.80 (0.2-1.0) mg/dL AST 21 (13-39) U/L ALT 8 (7-52) U/L Alkaline Phosphatase 55 (34-104) U/L Troponin I 0.02 (<0.04) ng/mL C-Reactive Protein 2.25 (< 5.00) mg/L Total Protein 7.4 (6.4-8.9) g/dL Albumin 4.3 (3.2-5.2) g/dL Globulin 3.1 (2-4) g/dL Albumin/Globulin Ratio 1.4 (1-3) Amylase 17 L (29-103) U/L Lipase 13 (11.0-82.0) U/L 06/16/17 Range/Units 12:55 WBC (3.5-10.8) 10^3/ul RBC (4.0-5.4) 10^6/ul Hgb (12.0-16.0) g/dl Hct (35-47) % MCV (80-97) fL MCH (27-31) pg MCHC (31-36) g/dl RDW (10.5-15) % Plt Count (150-450) 10^3/ul MPV (7.4-10.4) um3 Neut % (Auto) (38-83) % Lymph % (Auto) (25-47) % Sanders % (Auto) (1-9) % Eos % (Auto) (0-6) % Baso % (Auto) (0-2) % Absolute Neuts (auto) (1.5-7.7) 10^3/ul Absolute Lymphs (auto) (1.0-4.8) 10^3/ul Absolute Monos (auto) (0-0.8) 10^3/ul Absolute Eos (auto) (0-0.6) 10^3/ul Absolute Basos (auto) (0-0.2) 10^3/ul Absolute Nucleated RBC 10^3/ul Nucleated RBC % INR (Anticoag Therapy) (0.89-1.11) APTT (26.0-36.3) seconds Sodium (133-145) mmol/L Potassium (3.5-5.0) mmol/L Chloride (101-111) mmol/L Carbon Dioxide (22-32) mmol/L Anion Gap (2-11) mmol/L BUN (6-24) mg/dL Creatinine (0.51-0.95) mg/dL Est GFR ( Amer) (>60) Est GFR (Non-Af Amer) (>60) BUN/Creatinine Ratio (8-20) Glucose (70-100) mg/dL Lactic Acid 0.9 (0.5-2.0) mmol/L Calcium (8.6-10.3) mg/dL Magnesium (1.9-2.7) mg/dL Total Bilirubin (0.2-1.0) mg/dL AST (13-39) U/L ALT (7-52) U/L Alkaline Phosphatase (34-104) U/L Troponin I (<0.04) ng/mL C-Reactive Protein (< 5.00) mg/L Total Protein (6.4-8.9) g/dL Albumin (3.2-5.2) g/dL Globulin (2-4) g/dL Albumin/Globulin Ratio (1-3) Amylase (29-103) U/L Lipase (11.0-82.0) U/L Result Diagrams: 06/16/17 12:55 06/16/17 12:55 Lab Statement: Any lab studies that have been ordered have been reviewed, and results considered in the medical decision making process. - Additional Comments Diagnostic Additional Comments: EKG 12:16 - SINUS RHYTHM @ 78 BPM. Normal AV, IV, CT and QTc. Negative axis - 68. Inverted T in V1, V2. Q in III and aVF. Non specific T wave changes. No significant changes from 05/13/17. Re-Evaluation - Re-Evaluation 1 Re-Evaluation Time: 14:10 Change: Worse Comment: Pt c/o increased pain. Pt given medication - Dilaudid 2 mg for pain and additional Zofran 4 mg for nausea. Explained transfer to pt. Abdominal Pain Fem Course/Dx - Course Course Of Treatment: 62 y/o female presents to the ED c/o gradual onset ABD pain starting five days ago that has gotten progressively worse since it started. The pain was rated 10/10 in severity at triage. Pt has had trouble eating - she states that the food first gets stuck at the thyroid cartilage and if is able to get through then will get stuck at the epigastrium. Pt has lost at least 3 lbs in 3 days. In the ED course the pt is 5'7" and 102.7 lbs. The pt last had a full meal 5 days ago. PMHx breast CA, achalasia - last dilated last week at [place], GERD. SHx fundoplication, mastectomy. PCP Dr. Eddie Buckley ([phone] -[place]). Called Dr. Buckley @ 11:45 but could not get in touch with him. The award clerk called back at 12:19, and their secretary office clerk stated that they called Dr. Buckley twice but could not get a hold of him either. EKG 12: 16 - SINUS RHYTHM @ 78 BPM. Normal AV, IV, CT and QTc. Negative axis -68. Inverted T in V1, V2. Q in III and aVF. Non specific T wave changes. No significant changes from 05/13/17. Discussed case with Dr. Douglas Mayo @ [place] @ 12:55. Dr. Mayo, reading from the pt's report, states that the esophagram showed no obstruction, only dysmotility. They recommend no surgery but if failure to thrive then the pt should receieve a G-Jejunostomy. Discussed case with Dr. Otero @ 13:09. Discussed case with Dr. Wallis @ 13:30 - states they do not take care of achalasia at [facility] [place]. At 14:00, Dr. Roe called as the accepting physician - ED to ED. - Diagnoses Provider Diagnoses: Achalasia, Dehydration, Hyponatremia, Hypokalemia, Inability to take PO, Failure to thrive, Hypertension, poor control, Abdominal pain in female - Provider Notifications Discussed Care Of Patient With: Dr. Roe - STRONG Time Discussed With Above Provider: 14:00 Instructed by Provider To: Transfer Discharge - Discharge Plan Condition: Stable Disposition: TRANS HIGHER LVL OF CARE FAC The documentation as recorded by the Bernice vyas Edward accurately reflects the service I personally performed and the decisions made by , Shila Rubio MD.
[2017-06-16 15:44] VITALS: BP 132/99
== END 2017-06-16 15:43 | disposition short-term general hospital (02) ==
LOC: ED 10:58
DX: R10.9 Unspecified abdominal pain (principal); K22.0 Achalasia of cardia; E86.0 Dehydration; E87.1 Hypo-osmolality and hyponatremia; E87.6 Hypokalemia; R62.7 Adult failure to thrive; I10 Essential (primary) hypertension; R63.3 Feeding difficulties; Z85.3 Personal history of malignant neoplasm of breast; Z79.02 Long term (current) use of antithrombotics/antiplatelets; E78.00 Pure hypercholesterolemia, unspecified; I25.2 Old myocardial infarction; Z86.718 Personal history of other venous thrombosis and embolism; I25.10 Atherosclerotic heart disease of native coronary artery without angina pectoris; F17.210 Nicotine dependence, cigarettes, uncomplicated
CPT/HCPCS: 36415; 80053; 82150; 83605; 83690; 83735; 84484; 85025; 85610; 85730; 86140; 93005; 96360; 96374; 96375; 96376; 99285; J1170; J2405

== ENCOUNTER → 2017-07-23 12:56 | Emergency (ER) | payer OTHER ==
[~2017-07-23 12:56] MED LIST changes: -Acetaminophen TAB* 325 MG PO PRN; -Buffered Lidocaine 0.9% SYRIN* 5 ML/SYR SYRINGE INTRADERM ONE; +HYDROmorphone INJ* 1 MG/ML CARPUJECT SYRINGE IV SLOW PU ONE; +HYDROmorphone INJ* 2 MG/ML CARPUJECT SYRINGE IV SLOW PU ONE; +Metoclopramide IV* 5 MG/ML 2 ML VIAL IV SLOW PU ONE; +NS 0.9% 1000 ML* 1,000 ML IV ONE; +Ondansetron INJ* 2 MG/ML VIAL IV ONE; +Potassium Chloride LIQUID* 20 MEQ PACKET PO ONE
[2017-07-23 13:52] LABS: Hematocrit 45 % (35-47); Hemoglobin 15.4 g/dl (12.0-16.0); Mean Corpuscular HGB Conc 35 g/dl (31-36); Mean Corpuscular Hemoglobin 29 pg (27-31); Mean Corpuscular Volume 85 fL (80-97); Mean Platelet Volume 8 um3 (7.4-10.4); Red Blood Count 5.22 10^6/ul (4.0-5.4); Red Cell Distribution Width 15 % (10.5-15); White Blood Count 9.2 10^3/ul (3.5-10.8)
[2017-07-23 14:07] LABS: BUN/Creatinine Ratio 24.1 (8-20); EGFR African American 147.1 (>60); EGFR Non-African American 114.4 (>60); Globulin 3.8 g/dL (2-4); Magnesium 1.7 mg/dL (1.9-2.7); Potassium 3.2 mmol/L (3.5-5.0); Total Bilirubin 0.8 mg/dL (0.2-1.0); Total Protein 7.8 g/dL (6.4-8.9)
--- NOTE | 2017-07-23 14:20 | RAD ---
INDICATION: Chest pain and emesis COMPARISON: Most recent comparison chest x-rays dated May 13, 2017 TECHNIQUE: Single AP portable view of the chest was obtained. FINDINGS: Image quality is compromised due to the relative inferiority of a portable chest x-ray. The heart and mediastinum exhibit normal size and contour. The lungs are grossly clear. There is no evidence of a large pleural effusion. Visualized bones are normal for the patient's age. IMPRESSION: No radiographic evidence for acute cardiopulmonary abnormality on this portable chest x-ray.
--- NOTE | 2017-07-23 15:49 | RAD ---
Indication: Chest pain with an elevated d-dimer. Comparison: Similar examination dated January 15, 2017. Technique: Following the administration of 9.0 mCi of Xenon gas, ventilation images were obtained in multiple projections. Following the administration of 6.5 mCi of Tc-99m macroaggregated albumin, perfusion images were obtained in multiple projections. Report: The ventilation pattern is uniform with no evidence of air trapping. Negative for segmental or subsegmental perfusion defects. IMPRESSION: 1. No evidence for pulmonary embolism. Low probability: <20% chance of pulmonary embolism. (Modified PIOPED) Medium probability: <20% chance of pulmonary embolism. (Modified PIOPED) High probability: <20% chance of pulmonary embolism. (Modified PIOPED)
[2017-07-23 18:40] VITALS: BP 146/89
--- NOTE | 2017-07-24 13:30 | ED ---
Nabeel Chatterjee Nilda, scribed for Jose Luis Shaw MD on 07/23/17 at 1329 . HPI Chest Pain - HPI Summary HPI Summary: This patient is a 62 year old F presenting to [facility] with a chief complaint of constant sternal non-radiating chest pain since 2 days ago. The patient rates the pain 9/10 in severity. Symptoms alleviated by nothing including Zofran and morphine. Patient reports abdominal pain, nausea ("uncontrollable heaving), normal swallowing, and SOB (only while heaving). Patient denies vomiting, and arm pain. Her last BM was yesterday. PMHx includes VA, breast cancer, PE, and CAD (2 stents 2004 and 2005). - History of Current Complaint Chief Complaint: EDChestPainROMI Time Seen by Provider: 07/23/17 13:10 Hx Obtained From: Patient Onset/Duration: Started Days Ago Timing: Constant Current Severity: Severe Pain Intensity: 8 Pain Scale Used: 0-10 Numeric Chest Pain Location: Discrete at: - sternum Chest Pain Radiates: No Alleviating Factor(s): Nothing Associated Signs and Symptoms: Positive: Other: - Abdominal pain, uncontrollable heaving, normal swallowing, and SOB (only while heaving). Patient denies vomiting, chest pain radiating to the arms. - Additional Pertinent History Primary Care Physician: [id number] - Allergy/Home Medications Allergies/Adverse Reactions: Allergies Allergy/AdvReac Type Severity Reaction Status Date / Time Albumin Human [From Botox] Allergy Severe Anaphylatic Verified 07/23/17 12:59 Shock Iodinated Contrast Media Allergy Severe Anaphylatic Verified 07/23/17 12:59 [IV CONTRAST DYE] Shock Iodine Allergy Severe Anaphylatic Verified 07/23/17 12:59 Shock NSAIDs Allergy Severe Hives Verified 07/23/17 12:59 OnabotulinumtoxinA Allergy Severe Anaphylatic Verified 07/23/17 12:59 [From Botox] Shock Penicillins Allergy Severe Anaphylatic Verified 07/23/17 12:59 Shock Adhesive Tape Allergy Itching Verified 07/23/17 12:59 Bee Venom Allergy Anaphylatic Verified 07/23/17 12:59 Shock Chlorhexidine Allergy Rash And Verified 07/23/17 12:59 [From Hibiclens] Itching Latex Allergy Hives Verified 07/23/17 12:59 Povidone Iodine Allergy Itching Verified 07/23/17 12:59 [From Betadine] Shellfish Allergy Allergy Anaphylatic Verified 07/23/17 12:59 Shock ENVIRONMENTAL/SEASONAL Allergy ITCHY,WATERY Uncoded 07/23/17 12:59 HAYFEVER EYES, SNEEZE, CONGESTION Home Medications: Home Medications Ergocalciferol CAP* [Drisdol CAP*] 50,000 units PO WEEKLY 07/23/17 [History Confirmed 07/23/17] Lidocaine 2% JELLY* 1 applic TOPICAL ONCE PRN 07/23/17 [History Confirmed ] Losartan TAB* [Cozaar TAB*] 50 mg PO DAILY 07/23/17 [History Confirmed 07/23/17] Magnesium Chloride-Calcium Car [Slow Magnesium/Calcium] 1 tab PO DAILY 07/23/17 [History Confirmed 07/23/17] Morphine Sulfate [Morphine Sulfate ER] 30 mg PO TID PRN 07/23/17 [History Confirmed 07/23/17] Nutritional Supplements [Jevity 1.5 Pineda] 5 liq PEG TUBE DAILY 07/23/17 [History Confirmed 07/23/17] Ondansetron ODT TAB* [Zofran 4 MG Odt TAB*] 4 mg PO Q8HR PRN 07/23/17 [History Confirmed 07/23/17] diPHENhydraMINE PO* [Benadryl PO 50 MG CAP*] 50 mg PO Q6H PRN 07/23/17 [History Confirmed 07/23/17] PMH/Surg Hx/FS Hx/Imm Hx Endocrine/Hematology History: Reports: Hx Anticoagulant Therapy - plavix, Hx Anemia - possible Denies: Hx Diabetes, Hx Thyroid Disease Cardiovascular History: Reports: Hx Angina, Hx Coronary Artery Disease - 2 stents, Hx Deep Vein Thrombosis, Hx Embolism, Hx Hypercholesterolemia, Hx Hypertension - on meds, Hx Myocardial Infarction, Hx Syncope Denies: Hx Congestive Heart Failure, Hx Pacemaker/ICD, Hx Valvular Heart Disease, Other Cardiovascular Problems/Disorders Respiratory History: Reports: Hx Chronic Obstructive Pulmonary Disease (COPD) - Pt denies though providers have diagnosed it, Hx Pneumonia, Hx Pulmonary Embolism - 30 yrs ago, Hx Seasonal Allergies, Other Respiratory Problems/ Disorders - SMOKER Denies: Hx Asthma, Hx Sleep Apnea GI History: Reports: Hx Diverticulosis, Hx Gastroesophageal Reflux Disease, Hx Hiatal Hernia - 3 surgeries, Other GI Disorders - achalasia, Fernández's esophagus , Denies: Hx Ulcer History: Reports: Hx Kidney Infection, Hx Kidney Stones - LAST 12/2015- NO PROBLEMS SINCE PER PATIENT Denies: Hx Dialysis, Hx Renal Disease, Other Problems/Disorders Musculoskeletal History: Reports: Hx Arthritis - LEFT KNEE, BACK, Hx Back Problems - L1 fx, Other Musculoskeletal History - L1 fx Denies: Hx Osteoporosis Sensory History: Reports: Hx Cataracts - maryuri, Hx Contacts or Glasses - glasses Denies: Hx Hearing Aid Opthamlomology History: Reports: Hx Cataracts - maryuri, Hx Contacts or Glasses - glasses Neurological History: Reports: Hx Spinal Cord Injury - L1, Hx Transient Ischemic Attacks (TIA), Other Neuro Impairments/Disorders - POSSIBLE SMALL TIA'S - 3 yrs ago Psychiatric History: Reports: Hx Anxiety Denies: Hx Panic Disorder - Cancer History Cancer Type, Location and Year: RT BREAST CA, 2009 HAD A BILATERAL MASTECTOMY Hx Chemotherapy: No Hx Radiation Therapy: No - Surgical History Surgery Procedure, Year, and Place: RT LUMPECTOMY 02/2010, BILATERAL MASTECTOMY ,. 2001& [place] LEFT KNEE SURGERY X10,. BILATERAL SHOULDER SURGERY,. ESPOHOGEAL SURGERY,1996, 2014. failed breast implant on left. PARTIAL HYSTERECTOMY, 1976. APPENDIX A CHILD,. CHEST TUBE, 1996. ESOPHAGEAL DILATION. NISSIN FUNDOLPICATION multiple Hx Anesthesia Reactions: No - Immunization History Date of Tetanus Vaccine: up to date Date of Influenza Vaccine: 06/2016 Infectious Disease History: No Infectious Disease History: Denies: Hx Clostridium Difficile, Hx Hepatitis, Hx Human Immunodeficiency Virus (HIV), Hx of Known/Suspected MRSA, Hx Shingles, Hx Tuberculosis, Hx Known/ Suspected VRE, Hx Known/Suspected VRSA, History Other Infectious Disease, Traveled Outside the [place] in Last 30 Days - Family History Known Family History: Positive: None, Cardiac Disease - Father, 2 brothers - VA. Mother - AFIB, Hypertension, Diabetes - Social History Alcohol Use: None Hx Substance Use: No Substance Use Type: Reports: None Substance Use Comment - Amount & Last Used: prescribed Hx Tobacco Use: Yes Smoking Status (MU): Heavy Every Day Tobacco Smoker Type: Cigarettes Amount Used/How Often: 10 CIGARETTES A WEEK X 45 YEARS Length of Time of Smoking/Using Tobacco: 40+ YEARS Have You Smoked in the Last Year: Yes Review of Systems Negative: Fever, Chills Negative: Erythema Negative: Sore Throat Positive: Chest Pain Positive: Shortness Of Breath. Negative: Cough Positive: Abdominal Pain, Nausea - heaving , Other - negative: abnormal swallowing. Negative: Vomiting Negative: dysuria, hematuria Positive: Other - negative arm pain. Negative: Myalgia, Edema Negative: Rash Neurological: Other - negative dizziness All Other Systems Reviewed And Are Negative: Yes Physical Exam - Summary Physical Exam Summary: NORMAL PHYSICAL EXAM ADULT (6+ years) Constitutional: Well-developed, Well-nourished, Alert. (-) Distressed Skin: Warm, Dry HENT: Normocephalic; Atraumatic Eyes: Conjunctiva normal, Dry mucous membranes Neck: Musculoskeletal ROM normal neck. (-) JVD, (-) Stridor, (-) Tracheal deviation Cardio: Rhythm regular, rate normal, Heart sounds normal; Intact distal pulses; The pedal pulses are 2+ and symmetric. Radial pulses are 2+ and symmetric. (-) Murmur Pulmonary/Chest wall: Effort normal. (-) Respiratory distress, (-) Wheezes, (-) Rales Abd: Soft, (-) Tenderness, (-) Distension, (-) Guarding, (-) Rebound, Patient has feeding tube, Feeding tube insertion site appears normal Musculoskeletal: (-) Edema Lymph: (-) Cervical adenopathy Neuro: Alert, Oriented x3 Psych: Mood and affect Normal Triage Information Reviewed: Yes Vital Signs On Initial Exam: Initial Vitals Temp Pulse Resp BP Pulse Ox 98.2 F 81 16 181/113 98 07/23/17 12:57 07/23/17 12:57 07/23/17 12:57 07/23/17 12:57 07/23/17 12:57 Vital Signs Reviewed: Yes Diagnostics - Vital Signs Vital Signs Temp Pulse Resp BP Pulse Ox 07/23/17 12:57 98.2 F 81 16 181/113 98 - Laboratory Lab Results: Lab Results 07/23/17 07/23/17 07/23/17 Range/Units 13:39 13:39 13:39 WBC 9.2 (3.5-10.8) 10^3/ul RBC 5.22 (4.0-5.4) 10^6/ul Hgb 15.4 (12.0-16.0) g/dl Hct 45 (35-47) % MCV 85 (80-97) fL MCH 29 (27-31) pg MCHC 35 (31-36) g/dl RDW 15 (10.5-15) % Plt Count 287 (150-450) 10^3/ul MPV 8 (7.4-10.4) um3 Neut % (Auto) 80.4 (38-83) % Lymph % (Auto) 14.3 L (25-47) % [place] % (Auto) 4.6 (1-9) % Eos % (Auto) 0.1 (0-6) % Baso % (Auto) 0.6 (0-2) % Absolute Neuts (auto) 7.4 (1.5-7.7) 10^3/ul Absolute Lymphs (auto) 1.3 (1.0-4.8) 10^3/ul Absolute Monos (auto) 0.4 (0-0.8) 10^3/ul Absolute Eos (auto) 0 (0-0.6) 10^3/ul Absolute Basos (auto) 0.1 (0-0.2) 10^3/ul Absolute Nucleated RBC 0.04 10^3/ul Nucleated RBC % 0.4 D-Dimer, Quantitative 404 H (Less Than 230) ng/mL Sodium 130 L (133-145) mmol/L Potassium 3.2 L (3.5-5.0) mmol/L Chloride 99 L (101-111) mmol/L Carbon Dioxide 20 L (22-32) mmol/L Anion Gap 11 (2-11) mmol/L BUN 13 (6-24) mg/dL Creatinine 0.54 (0.51-0.95) mg/dL Est GFR ( Amer) 147.1 (>60) Est GFR (Non-Af Amer) 114.4 (>60) BUN/Creatinine Ratio 24.1 H (8-20) Glucose 96 (70-100) mg/dL Lactic Acid (0.5-2.0) mmol/L Calcium 9.0 (8.6-10.3) mg/dL Magnesium 1.7 L (1.9-2.7) mg/dL Total Bilirubin 0.80 (0.2-1.0) mg/dL AST 18 (13-39) U/L ALT 9 (7-52) U/L Alkaline Phosphatase 59 (34-104) U/L Troponin I 0.00 (<0.04) ng/mL Total Protein 7.8 (6.4-8.9) g/dL Albumin 4.0 (3.2-5.2) g/dL Globulin 3.8 (2-4) g/dL Albumin/Globulin Ratio 1.1 (1-3) 07/23/17 07/23/17 Range/Units 13:39 16:51 WBC (3.5-10.8) 10^3/ul RBC (4.0-5.4) 10^6/ul Hgb (12.0-16.0) g/dl Hct (35-47) % MCV (80-97) fL MCH (27-31) pg MCHC (31-36) g/dl RDW (10.5-15) % Plt Count (150-450) 10^3/ul MPV (7.4-10.4) um3 Neut % (Auto) (38-83) % Lymph % (Auto) (25-47) % [place] % (Auto) (1-9) % Eos % (Auto) (0-6) % Baso % (Auto) (0-2) % Absolute Neuts (auto) (1.5-7.7) 10^3/ul Absolute Lymphs (auto) (1.0-4.8) 10^3/ul Absolute Monos (auto) (0-0.8) 10^3/ul Absolute Eos (auto) (0-0.6) 10^3/ul Absolute Basos (auto) (0-0.2) 10^3/ul Absolute Nucleated RBC 10^3/ul Nucleated RBC % D-Dimer, Quantitative (Less Than 230) ng/mL Sodium (133-145) mmol/L Potassium (3.5-5.0) mmol/L Chloride (101-111) mmol/L Carbon Dioxide (22-32) mmol/L Anion Gap (2-11) mmol/L BUN (6-24) mg/dL Creatinine (0.51-0.95) mg/dL Est GFR ( Amer) (>60) Est GFR (Non-Af Amer) (>60) BUN/Creatinine Ratio (8-20) Glucose (70-100) mg/dL Lactic Acid 1.1 (0.5-2.0) mmol/L Calcium (8.6-10.3) mg/dL Magnesium (1.9-2.7) mg/dL Total Bilirubin (0.2-1.0) mg/dL AST (13-39) U/L ALT (7-52) U/L Alkaline Phosphatase (34-104) U/L Troponin I 0.00 (<0.04) ng/mL Total Protein (6.4-8.9) g/dL Albumin (3.2-5.2) g/dL Globulin (2-4) g/dL Albumin/Globulin Ratio (1-3) Result Diagrams: 07/23/17 13:39 07/23/17 13:39 Lab Statement: Any lab studies that have been ordered have been reviewed, and results considered in the medical decision making process. - Radiology CXR Radiology Interpretation Completed By: Radiologist - No radiographic evidence for acute cardiopulmonary abnormality on this portable chest x-ray. ED Physician reviewed this report and agrees. - EKG 1300 Cardiac Rate: NL - 73 bpm EKG Rhythm: Sinus Rhythm EKG Interpretation: No STEMI - Additional Comments Diagnostic Additional Comments: Lung Scan VQ, per radiologist, reveals no evidence for pulmonary embolism. ED Physician reviewed report and agrees. Re-Evaluation - Re-Evaluation First Eval Re-Evaluation Time: 16:56 Comment: Patient rates pain 7/10 in severity. Second Eval Re-Evaluation Time: 18:16 Comment: Patients nausea is under control and requests discharge. Patient has normal volume status. Chest Pain Course/Dx - Course Course Of Treatment: This patient is a 62 year old F presenting to [facility] with a chief complaint of constant sternal non-radiating chest pain since 2 days ago. The patient rates the pain 9/10 in severity. Symptoms alleviated by nothing including Zofran and morphine. Patient reports abdominal pain, nausea ( "uncontrollable heaving), normal swallowing, and SOB (only while heaving). Patient denies vomiting, and arm pain. Her last BM was yesterday. PMHx includes [place], breast cancer, PE, and CAD (2 stents 2004 and 2005). EKG [1300] reveals NSR , 73 bpm, and no STEMI. CXR, per radiologist, reveals no radiographic evidence for acute cardiopulmonary abnormality on this portable chest x-ray. Lung Scan VQ, per radiologist, reveals no evidence for pulmonary embolism. [1700] We discussed patient care with Dr. Flores (Hospitalist) who recommends a second round of antiemetics for the patient. [1816] Patients nausea is under control and requests discharge. Patient has normal volume status. Patient is stable and will be discharged with a diagnosis of Acalasia and follow up from PCP in 2- 3 days. The patient is agreeable with this plan. Patient describes all of her symptoms to be exactly replicating prior symptoms of achalasia flareup, and I do not suspect acute coronary syndrome in this patient. No acute abdomen - Diagnoses Provider Diagnoses: Achalasia - Provider Notifications Discussed Care Of Patient With: Rylee Valadez - Hospitalist Time Discussed With Above Provider: 17:00 Instructed by Provider To: Other - recommended a second round of antiemetics for the patient. Discharge - Discharge Plan Condition: Good Disposition: HOME Prescriptions: Metoclopramide TAB* [Reglan TAB*] 10 mg PO Q8H PRN #10 tab PRN Reason: Nausea Referrals: Trish Combs MD [Primary Care Provider] - 3 Days Additional Instructions: RETURN TO THE EMERGENCY DEPARTMENT FOR CHANGING OR WORSENING SYMPTOMS. The documentation as recorded by the Nabeel vyas Nilda accurately reflects the service I personally performed and the decisions made by , Jose Luis Shaw MD.
== END | disposition home or self-care (01) ==
LOC: ED 12:56
DX: K22.0 Achalasia of cardia (principal); F17.210 Nicotine dependence, cigarettes, uncomplicated; F41.9 Anxiety disorder, unspecified; K21.9 Gastro-esophageal reflux disease without esophagitis; Z85.3 Personal history of malignant neoplasm of breast; I25.2 Old myocardial infarction; Z86.711 Personal history of pulmonary embolism; I25.10 Atherosclerotic heart disease of native coronary artery without angina pectoris
CPT/HCPCS: 36415; 71010; 78582; 80053; 83605; 83735; 84484; 85025; 85379; 96360; 96374; 96375; 96376; 99283; A9270-GY; A9540; A9558; J1170; J2405; J2765

== ENCOUNTER 2017-07-24 18:59 | Inpatient (IN) | payer OTHER ==
[2017-07-24] MEDS ORDERED: NS 0.9% 1000 ML* 2,000 ML IV ONE (19:46)
[2017-07-24] MEDS ORDERED: Ondansetron INJ* 2 MG/ML VIAL IV ONE (19:46)
[2017-07-24] MEDS ORDERED: Pantoprazole IV* 40 MG IV ONE (19:46)
[2017-07-24] MEDS ORDERED: HYDROmorphone INJ* 1 MG/ML CARPUJECT SYRINGE IV ONE ×3 (19:46→23:27)
[2017-07-24 20:22] LABS: Hematocrit 43 % (35-47); Hemoglobin 14.8 g/dl (12.0-16.0); Mean Corpuscular HGB Conc 34 g/dl (31-36); Mean Corpuscular Hemoglobin 29 pg (27-31); Mean Corpuscular Volume 84 fL (80-97); Mean Platelet Volume 8 um3 (7.4-10.4); Red Blood Count 5.09 10^6/ul (4.0-5.4); Red Cell Distribution Width 15 % (10.5-15); White Blood Count 9.9 10^3/ul (3.5-10.8)
[2017-07-24 20:37] LABS: ALT 11 U/L (7-52); AST 19 U/L (13-39); Albumin 4.2 g/dL (3.2-5.2); Alkaline Phosphatase 54 U/L (34-104); Anion Gap 11 mmol/L (2-11); BUN/Creatinine Ratio 20.4 (8-20); Blood Urea Nitrogen 11 mg/dL (6-24); C Reactive Protein < 1.00 mg/L (< 5.00); CO2 Carbon Dioxide 20 mmol/L (22-32); Calcium 9.1 mg/dL (8.6-10.3); Chloride 98 mmol/L (101-111); Creatine Kinase 28 U/L (10-223); EGFR African American 147.1 (>60); EGFR Non-African American 114.4 (>60); Globulin 3.5 g/dL (2-4); Glucose 102 mg/dL (70-100); Lipase < 10 U/L (11.0-82.0); Magnesium 1.7 mg/dL (1.9-2.7); Potassium 3.3 mmol/L (3.5-5.0); Sodium 129 mmol/L (133-145); Total Protein 7.7 g/dL (6.4-8.9)
--- NOTE | 2017-07-24 20:50 | RAD ---
INDICATION: Chest pain COMPARISON: Chest x-ray July 23, 2017 TECHNIQUE: Single AP portable view of the chest was obtained. FINDINGS: Image quality is compromised due to the relative inferiority of a portable chest x-ray. The heart and mediastinum exhibit normal size and contour. The lungs are grossly clear. There is no evidence of a large pleural effusion. Visualized bones are normal for the patient's age. Gas-filled loops of colon are noted below the right diaphragm. IMPRESSION: No radiographic evidence for acute cardiopulmonary abnormality on this portable chest x-ray.
[2017-07-24] MEDS ORDERED: Magnesium Sulfate 2 GM IV* 2 GM/50 ML BAG IVPB ONE (21:01)
[2017-07-24] MEDS ORDERED: Potassium Chloride LIQUID* 20 MEQ PACKET PO ONE (21:02)
[2017-07-24] MEDS ORDERED: Metoclopramide IV* 5 MG/ML 2 ML VIAL IV SLOW PU ONE (21:28)
[2017-07-25] MEDS ORDERED: Albuterol HFA INHALER* 8 gm MDI INH PRN (00:15)
[2017-07-25] MEDS ORDERED: Carisoprodol TAB* 350 MG PO PRN (00:15)
[2017-07-25] MEDS ORDERED: Morphine TAB Extended Release (*) 30 MG TAB.ER PO PRN (00:15)
[2017-07-25] MEDS ORDERED: diPHENhydraMINE PO* 50 MG PO PRN (00:15)
[2017-07-25] MEDS ORDERED: Metoclopramide TAB* 10 MG PO PRN (00:15)
[2017-07-25] MEDS: Morphine INJ* 4 MG/ML 1 ML CARPUJECT IV PRN ×6 (01:39→23:06)
--- NOTE | 2017-07-25 01:40 | ED ---
Bonilla Chatterjee Rebecca, scribed for Aravind Rosas MD on 07/24/17 at 1945 . HPI Chest Pain - HPI Summary HPI Summary: Pt is a 62 y/o F BIBA who presents to ED c/o CP. Pt was evaluated yesterday by [facility] ED for similar sx during which she was going to be admitted, her pain improved and she was D/C to home. Pain then returned this afternoon at approximately 1600 in the epigastric/lower sternal region without radiation which she reports is typical of her CP. Pain is currently severe, ranked 10/10 and described as spasmodic. Sx aggravated and alleviated by nothing. Additionally c/o nausea and intermittent diaphoresis. Denies SOB, constipation and blood in stool. No recent changes in urinary or bladder habits. PMHx achalasia and LA - current pain is similar to prior MIs, though the pain yesterday was not. Pt has a PEG tube for nutrition which she reports has been functioning regularly. - History of Current Complaint Chief Complaint: EDChestPainROMI Time Seen by Provider: 07/24/17 19:35 Hx Obtained From: Patient Onset/Duration: Started Hours Ago, Still Present Time of Onset: 16:00 Current Severity: Severe Pain Intensity: 10 Pain Scale Used: 0-10 Numeric Chest Pain Location: Lower Sternal Chest Pain Radiates: Yes Chest Pain Radiates To:: Epigastric Character: Other: - Spasmodic Aggravating Factor(s): Nothing Alleviating Factor(s): Nothing Associated Signs and Symptoms: Positive: Chest Pain, Diaphoresis, Nausea. Negative: Shortness of Breath - Additional Pertinent History Primary Care Physician: [id number] - Allergy/Home Medications Allergies/Adverse Reactions: Allergies Allergy/AdvReac Type Severity Reaction Status Date / Time Albumin Human [From Botox] Allergy Severe Anaphylatic Verified 07/23/17 12:59 Shock Iodinated Contrast Media Allergy Severe Anaphylatic Verified 07/23/17 12:59 [IV CONTRAST DYE] Shock Iodine Allergy Severe Anaphylatic Verified 07/23/17 12:59 Shock NSAIDs Allergy Severe Hives Verified 07/23/17 12:59 OnabotulinumtoxinA Allergy Severe Anaphylatic Verified 07/23/17 12:59 [From Botox] Shock Penicillins Allergy Severe Anaphylatic Verified 07/23/17 12:59 Shock Adhesive Tape Allergy Itching Verified 07/23/17 12:59 Bee Venom Allergy Anaphylatic Verified 07/23/17 12:59 Shock Chlorhexidine Allergy Rash And Verified 07/23/17 12:59 [From Hibiclens] Itching Latex Allergy Hives Verified 07/23/17 12:59 Povidone Iodine Allergy Itching Verified 07/23/17 12:59 [From Betadine] Shellfish Allergy Allergy Anaphylatic Verified 07/23/17 12:59 Shock ENVIRONMENTAL/SEASONAL Allergy ITCHY,WATERY Uncoded 07/23/17 12:59 HAYFEVER EYES, SNEEZE, CONGESTION PMH/Surg Hx/FS Hx/Imm Hx Endocrine/Hematology History: Reports: Hx Anticoagulant Therapy - plavix, Hx Anemia - possible Denies: Hx Diabetes, Hx Thyroid Disease Cardiovascular History: Reports: Hx Angina, Hx Coronary Artery Disease - 2 stents, Hx Deep Vein Thrombosis, Hx Embolism, Hx Hypercholesterolemia, Hx Hypertension - on meds, Hx Myocardial Infarction, Hx Syncope Denies: Hx Congestive Heart Failure, Hx Pacemaker/ICD, Hx Valvular Heart Disease, Other Cardiovascular Problems/Disorders Respiratory History: Reports: Hx Chronic Obstructive Pulmonary Disease (COPD) - Pt denies though providers have diagnosed it, Hx Pneumonia, Hx Pulmonary Embolism - 30 yrs ago, Hx Seasonal Allergies, Other Respiratory Problems/ Disorders - SMOKER Denies: Hx Asthma, Hx Sleep Apnea GI History: Reports: Hx Diverticulosis, Hx Gastroesophageal Reflux Disease, Hx Hiatal Hernia - 3 surgeries, Other GI Disorders - achalasia, Fernández's esophagus , Denies: Hx Ulcer History: Reports: Hx Kidney Infection, Hx Kidney Stones - LAST 12/2015- NO PROBLEMS SINCE PER PATIENT Denies: Hx Dialysis, Hx Renal Disease, Other Problems/Disorders Musculoskeletal History: Reports: Hx Arthritis - LEFT KNEE, BACK, Hx Back Problems - L1 fx, Other Musculoskeletal History - L1 fx Denies: Hx Osteoporosis Sensory History: Reports: Hx Cataracts - maryuri, Hx Contacts or Glasses - glasses Denies: Hx Hearing Aid Opthamlomology History: Reports: Hx Cataracts - maryuri, Hx Contacts or Glasses - glasses Neurological History: Reports: Hx Spinal Cord Injury - L1, Hx Transient Ischemic Attacks (TIA), Other Neuro Impairments/Disorders - POSSIBLE SMALL TIA'S - 3 yrs ago Psychiatric History: Reports: Hx Anxiety Denies: Hx Panic Disorder - Cancer History Cancer Type, Location and Year: RT BREAST CA, 2009 HAD A BILATERAL MASTECTOMY Hx Chemotherapy: No Hx Radiation Therapy: No - Surgical History Surgery Procedure, Year, and Place: RT LUMPECTOMY 02/2010, BILATERAL MASTECTOMY ,. 2001& 2002 CARDIAC STENT AT [facility] IN [place],. LEFT KNEE SURGERY X10,. BILATERAL SHOULDER SURGERY,. ESPOHOGEAL SURGERY,1996, 2014. failed breast implant on left. PARTIAL HYSTERECTOMY, 1976. APPENDIX A CHILD,. CHEST TUBE, 1996. ESOPHAGEAL DILATION. NISSIN FUNDOLPICATION multiple Hx Anesthesia Reactions: No - Immunization History Date of Tetanus Vaccine: up to date Date of Influenza Vaccine: 06/2016 Infectious Disease History: No Infectious Disease History: Denies: Hx Clostridium Difficile, Hx Hepatitis, Hx Human Immunodeficiency Virus (HIV), Hx of Known/Suspected MRSA, Hx Shingles, Hx Tuberculosis, Hx Known/ Suspected VRE, Hx Known/Suspected VRSA, History Other Infectious Disease, Traveled Outside the [place] in Last 30 Days - Family History Known Family History: Positive: Cardiac Disease - Father, 2 brothers - LA. Mother - AFIB, Hypertension, Diabetes - Social History Alcohol Use: None Hx Substance Use: No Substance Use Type: Reports: None Substance Use Comment - Amount & Last Used: prescribed Hx Tobacco Use: Yes Smoking Status (MU): Heavy Every Day Tobacco Smoker Type: Cigarettes Amount Used/How Often: 10 CIGARETTES A WEEK X 45 YEARS Length of Time of Smoking/Using Tobacco: 40+ YEARS Have You Smoked in the Last Year: Yes Review of Systems Positive: Skin Diaphoresis Positive: Chest Pain Negative: Shortness Of Breath Positive: Nausea, Other - NEGATIVE: constipation and blood in stool All Other Systems Reviewed And Are Negative: Yes Physical Exam - Summary Physical Exam Summary: General: mildly ill-appearing, mild pain distress Skin: warm, color reflects adequate perfusion, dry Head: normal Eyes: EOMI, SHYA ENT: normal Neck: supple, nontender Respiratory: CTA, breath sounds present Cardiovascular: RRR Abdomen: soft, tender in the epigastric region Bowel: hypoactive Musculoskeletal: normal, strength/ROM intact Neurological: normal, sensory/motor intact, A&O x3 Psychological: affect/mood appropriate Triage Information Reviewed: Yes Vital Signs On Initial Exam: Initial Vitals Temp Pulse Resp BP Pulse Ox 98.6 F 87 17 208/112 97 07/24/17 19:11 07/24/17 19:11 07/24/17 19:11 07/24/17 19:11 07/24/17 19:11 Vital Signs Reviewed: Yes Diagnostics - Vital Signs Vital Signs Temp Pulse Resp BP Pulse Ox 07/24/17 19:11 98.6 F 87 17 208/112 97 - Laboratory Lab Results: Lab Results 07/24/17 07/24/17 07/24/17 Range/Units 20:12 20:12 20:12 WBC 9.9 (3.5-10.8) 10^3/ul RBC 5.09 (4.0-5.4) 10^6/ul Hgb 14.8 (12.0-16.0) g/dl Hct 43 (35-47) % MCV 84 (80-97) fL MCH 29 (27-31) pg MCHC 34 (31-36) g/dl RDW 15 (10.5-15) % Plt Count 277 (150-450) 10^3/ul MPV 8 (7.4-10.4) um3 Neut % (Auto) 75.3 (38-83) % Lymph % (Auto) 16.0 L (25-47) % [place] % (Auto) 6.4 (1-9) % Eos % (Auto) 0.1 (0-6) % Baso % (Auto) 2.2 H (0-2) % Absolute Neuts (auto) 7.4 (1.5-7.7) 10^3/ul Absolute Lymphs (auto) 1.6 (1.0-4.8) 10^3/ul Absolute Monos (auto) 0.6 (0-0.8) 10^3/ul Absolute Eos (auto) 0 (0-0.6) 10^3/ul Absolute Basos (auto) 0.2 (0-0.2) 10^3/ul Absolute Nucleated RBC 0 10^3/ul Nucleated RBC % 0 INR (Anticoag Therapy) (0.89-1.11) APTT (26.0-36.3) seconds Sodium 129 L (133-145) mmol/L Potassium 3.3 L (3.5-5.0) mmol/L Chloride 98 L (101-111) mmol/L Carbon Dioxide 20 L (22-32) mmol/L Anion Gap 11 (2-11) mmol/L BUN 11 (6-24) mg/dL Creatinine 0.54 (0.51-0.95) mg/dL Est GFR ( Amer) 147.1 (>60) Est GFR (Non-Af Amer) 114.4 (>60) BUN/Creatinine Ratio 20.4 H (8-20) Glucose 102 H (70-100) mg/dL Lactic Acid (0.5-2.0) mmol/L Calcium 9.1 (8.6-10.3) mg/dL Magnesium 1.7 L (1.9-2.7) mg/dL Total Bilirubin 0.80 (0.2-1.0) mg/dL AST 19 (13-39) U/L ALT 11 (7-52) U/L Alkaline Phosphatase 54 (34-104) U/L Total Creatine Kinase 28 (10-223) U/L CK-MB (CK-2) 0.9 (0.6-6.3) ng/mL Troponin I 0.00 (<0.04) ng/mL C-Reactive Protein < 1.00 (< 5.00) mg/L B-Natriuretic Peptide 60 ( - 100) pg/mL Total Protein 7.7 (6.4-8.9) g/dL Albumin 4.2 (3.2-5.2) g/dL Globulin 3.5 (2-4) g/dL Albumin/Globulin Ratio 1.2 (1-3) Lipase < 10 L (11.0-82.0) U/L 07/24/17 07/24/17 Range/Units 20:12 20:12 WBC (3.5-10.8) 10^3/ul RBC (4.0-5.4) 10^6/ul Hgb (12.0-16.0) g/dl Hct (35-47) % MCV (80-97) fL MCH (27-31) pg MCHC (31-36) g/dl RDW (10.5-15) % Plt Count (150-450) 10^3/ul MPV (7.4-10.4) um3 Neut % (Auto) (38-83) % Lymph % (Auto) (25-47) % [place] % (Auto) (1-9) % Eos % (Auto) (0-6) % Baso % (Auto) (0-2) % Absolute Neuts (auto) (1.5-7.7) 10^3/ul Absolute Lymphs (auto) (1.0-4.8) 10^3/ul Absolute Monos (auto) (0-0.8) 10^3/ul Absolute Eos (auto) (0-0.6) 10^3/ul Absolute Basos (auto) (0-0.2) 10^3/ul Absolute Nucleated RBC 10^3/ul Nucleated RBC % INR (Anticoag Therapy) 0.98 (0.89-1.11) APTT 30.8 (26.0-36.3) seconds Sodium (133-145) mmol/L Potassium (3.5-5.0) mmol/L Chloride (101-111) mmol/L Carbon Dioxide (22-32) mmol/L Anion Gap (2-11) mmol/L BUN (6-24) mg/dL Creatinine (0.51-0.95) mg/dL Est GFR ( Amer) (>60) Est GFR (Non-Af Amer) (>60) BUN/Creatinine Ratio (8-20) Glucose (70-100) mg/dL Lactic Acid 1.0 (0.5-2.0) mmol/L Calcium (8.6-10.3) mg/dL Magnesium (1.9-2.7) mg/dL Total Bilirubin (0.2-1.0) mg/dL AST (13-39) U/L ALT (7-52) U/L Alkaline Phosphatase (34-104) U/L Total Creatine Kinase (10-223) U/L CK-MB (CK-2) (0.6-6.3) ng/mL Troponin I (<0.04) ng/mL C-Reactive Protein (< 5.00) mg/L B-Natriuretic Peptide ( - 100) pg/mL Total Protein (6.4-8.9) g/dL Albumin (3.2-5.2) g/dL Globulin (2-4) g/dL Albumin/Globulin Ratio (1-3) Lipase (11.0-82.0) U/L Result Diagrams: 07/24/17 20:12 07/24/17 20:12 Lab Statement: Any lab studies that have been ordered have been reviewed, and results considered in the medical decision making process. - Radiology CXR Xray Interpretation: No Acute Changes - No radiographic evidence for acute cardiopulmonary abnormality on this portable chest x-ray. ED physician reviewed radiology report and agrees. Radiology Interpretation Completed By: Radiologist - EKG 2020 Cardiac Rate: NL - 68 bpm EKG Rhythm: Sinus Rhythm EKG Interpretation: Flipped Ts in the anterior leads, ST deression in the inferior leads Re-Evaluation - Re-Evaluation First Eval Re-Evaluation Time: 21:26 Change: Improved Comment: Pain improved, but now it is returning. Chest Pain Course/Dx - Course Assessment/Plan: Patient medications reviewed this visit. BP noted and advised to f/u with PCP. ADMIT HOSPITALIST - Diagnoses Provider Diagnoses: Chest pain, Intractable abdominal pain - Provider Notifications Discussed Care Of Patient With: Kimo Castanon Time Discussed With Above Provider: 22:30 Instructed by Provider To: Other - Accepts pt for admission. Discharge - Discharge Plan Condition: Stable Disposition: ADMITTED TO [facility] documentation as recorded by the Bonilla vyas Rebecca accurately reflects the service I personally performed and the decisions made by me, Aravind Rosas MD.
[2017-07-25] MEDS: Ondansetron INJ* 2 MG/ML VIAL IV PRN ×5 (01:42→23:39)
[2017-07-25] MEDS: NS 0.9% 1000 ML* 1,000 ML IV SCH ×2 (01:44→12:57)
[2017-07-25] MEDS: Enoxaparin(*) 40 MG/0.4 ML SYR SUBCUT SCH ×2 (01:45→23:36)
--- NOTE | 2017-07-25 02:35 | HP ---
CC: Dr. Combs * ADMISSION HISTORY AND PHYSICAL: DATE OF ADMISSION: 07/25/17 PRIMARY CARE PROVIDER: Dr. Combs. Thoracic surgeon in [place] is Dr. Buckley. HEALTHCARE PROXY: Her daughter and her brother. CODE STATUS: Full. SOURCE OF INFORMATION: History obtained from interview with the patient, review of past medical records. RELIABILITY: Good. CHIEF COMPLAINT: Retching. HISTORY OF PRESENT ILLNESS: This is a 62-year-old female with past medical history of achalasia with multiple hospital stays in the setting of nausea, vomiting, retching, and chest pain in the setting of achalasia exacerbations here in April for similar problems, then returned in May, transferred to [facility], where she received PEG tube, which had previously been removed. Started developing similar symptoms to her usual achalasia exacerbations including heaving and retching associated with chest pain approximately 4 days prior to presentation. She presented to the emergency room yesterday and was treated with antiemetics and pain control and felt better and felt comfortable returning home. However, she felt that the symptoms returned worse today with worsening retching and heaving and chest pain to the hospital. She feels that the symptoms are similar to past events. She usually attains relief with antiemetics and pain control. As noted above, the PEG tube was placed in May. In discussion with her Thoracic Surgery, there are no additional interventions planned at this time. In the emergency room, the patient received antiemetics and pain control, and when seen by this author, she had no complaints. PAST MEDICAL HISTORY: Includes: 1. Achalasia. 2. CAD with an OK twice, last in 2004, in 2005 stent to the RCA. 3. Anemia. 4. DVT and PE. 5. Anxiety. 6. Breast cancer. 7. Nephrolithiasis. 8. Osteoarthritis. 9. PEG tube placement. PAST SURGICAL HISTORY: 1. Right breast lumpectomy. 2. Bilateral mastectomy with implant reconstruction, failed on the left. 3. Left knee arthroscopy. 4. Godwin fundoplication x2. 5. Appendectomy. 6. Partial hysterectomy. 7. Esophageal dilatation. 8. Bilateral shoulder surgeries. 9. PEG tube placement and removal and then placement again at the end of May 2017. CURRENT MEDICATIONS: Reviewed per the patient's home medication list, which she has brought with her: 1. Morphine sulfate 15 mg every 4 hours as needed for pain. 2. Prochlorperazine 10 mg one tab twice daily as needed. 3. Morphine sulfate ER 30 mg 3 times a day. 4. Metoprolol succinate 50 mg in the morning. 5. Ondansetron 4 mg every 8 hours as needed for nausea. 6. Amlodipine 5 mg 1 to 2 tabs every day as needed for blood pressure. 7. Vitamin D 50,000 units weekly. 8. Ventolin HFA 2 puffs every 4 hours as needed for shortness of breath. 9. Azelastine 0.05% 1 drop both eyes twice daily as needed for allergic eyes. 10. Clopidogrel 75 mg daily. 11. Cyanocobalamin 1000 mcg intramuscularly monthly. 12. Nitrostat 0.4 mg as needed for chest pain. 13. Diphenhydramine 50 mg every 6 hours as needed for itching. 14. Lidocaine 2% topically as needed. 15. Omeprazole 40 mg daily. 16. Carisoprodol 1 tab twice a day as directed for muscle spasm or achalasia, max 2 tabs daily. ALLERGIES: ALBUMIN, IODINATED CONTRAST MEDIA, IODINE, NSAIDS, ONABOTULINUMTOXINA, PENICILLIN, ADHESIVE TAPE, BEE VENOM, CHLORHEXIDINE, LATEX, POVIDONE IODINE, SHELLFISH, and seasonal allergies. FAMILY HISTORY: Father with an OK and 2 brothers with CAD and OK. His mother with atrial fibrillation. SOCIAL HISTORY: One-half pack per day tobacco for greater than 50 years. No alcohol. REVIEW OF SYSTEMS: As per HPI, otherwise negative for all systems reviewed. PHYSICAL EXAMINATION GENERAL: A 62-year-old female looks older than stated age, has temporal waisting. VITAL SIGNS: In the emergency room, 159/91, respiratory rate is 10, heart rate 61, T-max 98.6, 96% on room air. HEENT: Oropharynx is clear with moist mucous membranes. NECK: She has nonelevated JVD. No cervical or supraclavicular lymphadenopathy. LUNGS: Clear to auscultation. HEART: She has regular rate and rhythm without murmurs, rubs, or gallops. ABDOMEN: Scaphoid with tenderness left lower quadrant. No rebound or guarding. Positive bowel sounds. PEG tube in place clean, dry, and intact. EXTREMITIES: Warm, well perfused without clubbing, cyanosis, or edema. NEUROLOGIC: She is alert and oriented x3. Her cranial nerves are intact. She has no apparent anxiety, agitation, or depression. DIAGNOSTIC STUDIES/LAB DATA: Pertinent laboratory data reviewed. Sodium 129, potassium 3.3, chloride 98, bicarb 20, BUN 11, creatinine 0.54, lactic acid 1.0 , magnesium 0.7. Troponin I 0.00. CRP less than 1. Lipase less than 10. White blood cell count 9.9, hemoglobin 14.8, platelets 277,000. Pertinent data reviewed. Chest x-ray; no radiographic evidence of acute cardiopulmonary abnormality. EKG: Normal sinus rhythm, left axis. Late R-wave progression, T-wave inversions V1 through V3 with ST depressions 1 mm in V5 and [address] depression in 2, 3, and aVF unchanged from prior EKGs. ASSESSMENT AND PLAN: This is a 62-year-old female with past medical history of achalasia with multiple hospital stays for chest pain in the setting of achalasia exacerbation complicated by heaving and retching,returning with similar symptoms today. 1. Chest pain, heaving, retching all suspected in the setting of achalasia. Pain control with morphine IV as well as continue Zofran IV. Prochlorperazine as needed. Fluids; normal saline of 100 cc per hour for additional liter. In the setting of EKG findings, which are unchanged from prior, we will check one additional troponin in the morning with repeat BMP. Protonix 40 mg IV twice daily. 2. Hyponatremia and hypokalemia. Received potassium replacement in the recovery room. Recheck BMP in the morning. Suspect hypovolemic hyponatremia in the setting of retching. We will treat with normal saline, repeat in the morning. 3. Coronary artery disease. Continue Plavix. 4. DVT prophylaxis. Heparin subcu. [id number]/[facility] #: [id number] [facility]
[2017-07-25 06:41] LABS: BUN/Creatinine Ratio 22.2 (8-20); Blood Urea Nitrogen 10 mg/dL (6-24); CO2 Carbon Dioxide 17 mmol/L (22-32); Calcium 7.5 mg/dL (8.6-10.3); Chloride 107 mmol/L (101-111); EGFR African American 181.6 (>60); EGFR Non-African American 141.2 (>60); Glucose 80 mg/dL (70-100); Sodium 130 mmol/L (133-145)
[2017-07-25 07:28] LABS: Anion Gap 6 mmol/L (2-11)
[2017-07-25] MEDS: amLODIPine TAB* 5 MG PO SCH (08:41)
[2017-07-25] MEDS: Pantoprazole IV* 40 MG IV SCH ×2 (08:41→20:02)
[2017-07-25] MEDS: Clopidogrel TAB* 75 MG PO SCH (08:41)
[2017-07-25] MEDS ORDERED: Morphine ORAL.SOLN 10 mg* 2 MG/ML UDC 5 ml PO PRN ×2 (08:45→11:45)
[2017-07-25] MEDS ORDERED: Morphine INJ* 4 MG/ML 1 ML CARPUJECT IV PRN (08:46)
[2017-07-25] MEDS ORDERED: Metoprolol Succinate XL TAB* 50 MG PO SCH (09:00)
[2017-07-25] MEDS: Azelastine 0.05% (OPHTH)(NF) 6 ML BTL BOTH EYES SCH ×2 (09:13→20:15)
[2017-07-25] MEDS: Metoprolol Tartrate TAB* 25 MG PO SCH ×2 (09:13→20:02)
[2017-07-25] MEDS ORDERED: Potassium Chloride LIQUID* 20 MEQ PACKET PO ONE (11:49)
--- NOTE | 2017-07-25 11:57 | PN ---
Subjective Date of Service: 07/25/17 Interval History: Patient seen and examined at bedside. Patient states that pain is not adequately controlled. Need higher dose of morphine. She states she take MC Contin 30mg q8h and 15mg IR q4 for breakthrough. She states these exacerbations last 24-72 hours and there is nothing more surgical that can be done per her surgeon in [place]. Zofran keeping nausea under control. Family History: Unchanged from Admission Social History: Unchanged from Admission Past Medical History: Unchanged from Admission Objective Active Medications: Albuterol (Ventolin Hfa Inhaler*) 2 puff INH Q4H PRN Amlodipine Besylate (Norvasc Tab*) 10 mg PO QAM ZENA Atorvastatin Calcium (Lipitor*) 20 mg PO 2100 ZENA Azelastine HCl (Optivar 0.05% (Nf)) 1 drop BOTH EYES BID ZENA Carisoprodol (Soma Tab*) 350 mg PO BID PRN Clopidogrel Bisulfate (Plavix Tab*) 75 mg PO QAM ZENA Diphenhydramine HCl (Benadryl Po*) 50 mg PO Q6H PRN Enoxaparin Sodium (Lovenox(*)) 40 mg SUBCUT Q24H ZENA Sodium Chloride (Ns 0.9% 1000 Ml*) 1,000 mls @ 100 mls/hr IV PER RATE ZENA Metoclopramide HCl (Reglan Tab*) 10 mg PO Q8H PRN Metoprolol Tartrate (Lopressor Tab*) 25 mg PO BID ZENA Morphine Sulfate (Morphine Oral.Soln 10 Mg*) 15 mg PO Q4H PRN Morphine Sulfate (Morphine Inj (Syringe)*) 4 mg IV Q3H PRN Ondansetron HCl (Zofran Inj*) 4 mg IV Q4H PRN Pantoprazole Sodium (Protonix Iv*) 40 mg IV BID [facility] 07/25/17 07/25/17 07/25/17 01:34 01:35 01:39 Temperature 98.0 F 98 F Pulse Rate 57 57 Respiratory 16 16 17 Rate Blood Pressure 172/89 162/62 (mmHg) O2 Sat by Pulse 99 99 Oximetry Appearance: sitting up in bed, NAD Eyes: No Scleral Icterus, PERRLA Ears/Nose/Mouth/Throat: NL Teeth, Lips, Gums Neck: NL Appearance and Movements; NL JVP Respiratory: Symmetrical Chest Expansion and Respiratory Effort, Clear to Auscultation Cardiovascular: NL Sounds; No Murmurs; No JVD, RRR, No Edema Abdominal: - - tender upper epigastric area. Extremities: No Edema Skin: No Rash or Ulcers Neurological: Alert and Oriented x 3, NL Muscle Strength and Tone Lines/Tubes/Other Access: Clean, Dry and Intact Peripheral IV Nutrition: Taking PO's Result Diagrams: 07/24/17 20:12 07/25/17 09:06 Assess/Plan/Problems-Billing Patient is a 62 y/o M w/ hx of achalasia s/p multiple surgeries and exacerbations in the past who presented to the ER with nausea, vomiting, and chest pain c/w an exacerbation. - Patient Problems (1) Achalasia Comment: Continue conservative measures which include morphine for pain and anti -emetics. Patient would like to advance diet. Will start Cyclic feeds at night via her PEG tube. (2) Hypokalemia Comment: Give additional 40mEq this AM. Mg repleted yesterday. (3) CAD (coronary artery disease) Comment: Continue clopidogrel, statin, metoprolol. (4) HTN (hypertension) Comment: Controlled; Continue amlodipine and metoprolol. (5) DVT prophylaxis Comment: SQ Lovenox (6) Full code status Current Visit: Yes Status and Disposition: Inpatient for achalasia exacerbation. Plan to discharge home when stable.
[2017-07-25] MEDS ORDERED: Atorvastatin* 20 MG TAB PO SCH (21:00)
[2017-07-26] MEDS: Morphine INJ* 4 MG/ML 1 ML CARPUJECT IV PRN ×4 (03:29→13:43)
[2017-07-26] MEDS: Ondansetron INJ* 2 MG/ML VIAL IV PRN ×3 (03:29→13:43)
[2017-07-26 07:48] LABS: BUN/Creatinine Ratio 28.6 (8-20); Calcium 7.9 mg/dL (8.6-10.3); EGFR African American 123.1 (>60); EGFR Non-African American 95.8 (>60); Potassium 4.2 mmol/L (3.5-5.0)
[2017-07-26] MEDS: Azelastine 0.05% (OPHTH)(NF) 6 ML BTL BOTH EYES SCH (10:15)
[2017-07-26] MEDS: Pantoprazole IV* 40 MG IV SCH (10:17)
[2017-07-26] MEDS: Metoprolol Tartrate TAB* 25 MG PO SCH (10:44)
[2017-07-26] MEDS: Clopidogrel TAB* 75 MG PO SCH (10:45)
[2017-07-26] MEDS: amLODIPine TAB* 5 MG PO SCH (10:45)
[2017-07-26] MEDS ORDERED: Morphine TAB Extended Release (*) 30 MG TAB.ER PO SCH (14:00)
[2017-07-26 14:31] VITALS: BP 144/93
--- NOTE | 2017-07-26 14:58 | DCNOTE ---
Subjective Date of Service: 07/26/17 Interval History: Patient seen and examined at bedside. Patient states her heaves have improved. She is tolerating POs. Family History: Unchanged from Admission Social History: Unchanged from Admission Past Medical History: Unchanged from Admission Objective Active Medications: Albuterol (Ventolin Hfa Inhaler*) 2 puff INH Q4H PRN Amlodipine Besylate (Norvasc Tab*) 10 mg PO QAM ZENA Atorvastatin Calcium (Lipitor*) 20 mg PO 2100 EZNA Azelastine HCl (Optivar 0.05% (Nf)) 1 drop BOTH EYES BID ZENA Carisoprodol (Soma Tab*) 350 mg PO BID PRN Clopidogrel Bisulfate (Plavix Tab*) 75 mg PO QAM ZENA Diphenhydramine HCl (Benadryl Po*) 50 mg PO Q6H PRN Enoxaparin Sodium (Lovenox(*)) 40 mg SUBCUT 2100 ZENA Metoclopramide HCl (Reglan Tab*) 10 mg PO Q8H PRN Metoprolol Tartrate (Lopressor Tab*) 25 mg PO BID ZENA Morphine Sulfate (Morphine Oral.Soln 10 Mg*) 15 mg PO Q4H PRN Morphine Sulfate (Morphine Inj (Syringe)*) 4 mg IV Q3H PRN Morphine Sulfate (Ms Contin(*)) 30 mg PO TID ZENA Ondansetron HCl (Zofran Inj*) 4 mg IV Q4H PRN Pantoprazole Sodium (Protonix Iv*) 40 mg IV BID [facility] 07/26/17 07/26/17 11:49 13:43 Temperature 98.4 F Pulse Rate 71 Respiratory 20 18 Rate Blood Pressure 144/93 (mmHg) O2 Sat by Pulse 97 Oximetry Oxygen Devices in Use Now: None Appearance: sitting up in bed, NAD Eyes: No Scleral Icterus, PERRLA Ears/Nose/Mouth/Throat: NL Teeth, Lips, Gums Neck: NL Appearance and Movements; NL JVP Respiratory: Symmetrical Chest Expansion and Respiratory Effort, Clear to Auscultation Cardiovascular: NL Sounds; No Murmurs; No JVD, RRR Abdominal: NL Sounds; No Tenderness; No Distention Extremities: No Edema Skin: No Rash or Ulcers Neurological: Alert and Oriented x 3, NL Muscle Strength and Tone Lines/Tubes/Other Access: Clean, Dry and Intact Peripheral IV Result Diagrams: 07/24/17 20:12 07/26/17 07:03 Assess/Plan/Problems-Billing Patient is a 62 y/o M w/ hx of achalasia s/p multiple surgeries and exacerbations in the past who presented to the ER with nausea, vomiting, and chest pain c/w an exacerbation. - Patient Problems (1) Achalasia (2) Hypokalemia (3) CAD (coronary artery disease) (4) HTN (hypertension) (5) DVT prophylaxis Comment: SQ Lovenox (6) Full code status Current Visit: Yes Status and Disposition: Inpatient for achalasia exacerbation. Stable to be discharged home.
[2017-07-26] MEDS ORDERED: Enoxaparin(*) 40 MG/0.4 ML SYR SUBCUT SCH (21:00)
--- NOTE | 2017-07-27 02:01 | DS ---
DISCHARGE SUMMARY: DATE OF ADMISSION: 07/25/17 DATE OF DISCHARGE: 07/26/17 PRIMARY CARE PHYSICIAN: Dr. Combs. ATTENDING PHYSICIAN: Neil Spence MD * (report dictated by Anamaria Sanford NP). PRIMARY DIAGNOSES: 1. Achalasia exacerbation. 2. Chest pain. 3. Hypokalemia. 4. Hyponatremia. SECONDARY DIAGNOSES: 1. Coronary artery disease. 2. Anemia. 3. Deep venous thrombosis. 4. Pulmonary embolism. 5. Status post percutaneous endoscopic gastrostomy tube placement. MEDICATIONS AT THE TIME OF DISCHARGE: 1. Vitamin B12 1000 mcg IM monthly. 2. Optivar 1 drop both eyes twice daily. 3. EpiPen as needed. 4. Soma 350 mg oral twice daily as needed. 5. Albuterol HFA 2 puffs inhaled every 4 hours as needed. 6. Toprol-XL 50 mg oral daily. 7. Prilosec 40 mg oral twice daily. 8. Morphine immediate release 15 mg oral every 4 hours as needed. 9. Compazine 10 mg oral twice daily as needed. 10. Norvasc 5 mg oral in the morning. 11. Plavix 75 mg oral in the morning 20 mg oral at bedtime. 12. Lidocaine 1 application topical as needed. 13. Benadryl 50 mg oral every 6 hours as needed. 14. Drisdol 50,000 units oral weekly. 15. MS Contin 30 mg oral 3 times daily. 16. Cozaar 50 mg oral daily. 17. Jevity 5 liquid cans through the PEG tube daily. 18. Magnesium 1 tablet oral daily. 19. Zofran 4 mg oral every 8 hours as needed. 20. Reglan 10 mg oral every 8 hours as needed. HISTORY OF PRESENT ILLNESS AND HOSPITAL COURSE: Ms. Prasad is a 62-year-old female with a past medical history significant for achalasia with multiple hospital stays in the setting of achalasia exacerbation. When she has these exacerbations, she usually presents with nausea, vomiting, retching as well as chest pain. She was here both in April and then subsequently returned in May with these symptoms. In May, she was treated at the [facility], and during that admission, she had a PEG tube placed. She received feedings at night. Her exacerbations are treated with conservative management, hence she was placed on the medical floor and given antiemetics as well as pain medicine. In addition, she was given a small amount of IV fluids. With this, her electrolytes normalized. Her diet was advanced. She continued to receive antiemetics and pain medicine and this afternoon she was able to tolerate liquids and solids as well as pills without any difficulty. At this point, she is stable to be discharged home. Vital signs are follows: Temperature 98.4, heart rate 71, respiratory rate 20, blood pressure 144/93. At this point, she was stable for discharge. During her hospitalization, she was maintained on her statin, metoprolol as well as blood pressure medicines for coronary artery disease. She received Jevity feeds overnight. The patient did express that her current pain regimen does not seem to be enough and rather than titrating her current pain regimen, I recommended that she return to her primary care provider for adjustments early next week. DISCHARGE PLANNING: The patient discharged on a regular diet. The patient has been instructed to follow up with her primary care provider within 5 to 7 days. I have reviewed that the patient should return to the hospital should she experience worsening pain or inability to tolerate liquids. I reviewed all of the instructions with the patient and she is agreeable with the discharge today. This is a summarized report of a complex medical history and hospital stay. For more details, please see the entire medical record. Time for this discharge was 50 minutes and over 25 minutes were spent with the patient discussing medications at discharge and followup instructions. CONDITION ON DISCHARGE: Stable. ANAMARIA SANFORD NP [id number]/[facility] #: [id number] [place]
== END 2017-07-26 16:20 | disposition home or self-care (01) | DRG 243 ==
LOC: ED 18:59 → MED 07-25 00:13
PROVIDERS: ADMIT Internal Medicine; ATTEND Internal Medicine
DX: K22.0 Achalasia of cardia (principal); E87.1 Hypo-osmolality and hyponatremia; R07.9 Chest pain, unspecified; E87.6 Hypokalemia; I25.10 Atherosclerotic heart disease of native coronary artery without angina pectoris; Z95.5 Presence of coronary angioplasty implant and graft; D64.9 Anemia, unspecified; F41.9 Anxiety disorder, unspecified; M19.90 Unspecified osteoarthritis, unspecified site; N20.0 Calculus of kidney; Z86.718 Personal history of other venous thrombosis and embolism; Z86.711 Personal history of pulmonary embolism; Z79.1 Long term (current) use of non-steroidal anti-inflammatories (NSAID); Z79.899 Other long term (current) drug therapy; Z93.1 Gastrostomy status; Z91.030 Bee allergy status; Z91.041 Radiographic dye allergy status; Z91.040 Latex allergy status; Z88.0 Allergy status to penicillin; Z88.7 Allergy status to serum and vaccine; Z88.8 Allergy status to other drugs, medicaments and biological substances; Z91.048 Other nonmedicinal substance allergy status; I25.2 Old myocardial infarction; Z82.49 Family history of ischemic heart disease and other diseases of the circulatory system; F17.210 Nicotine dependence, cigarettes, uncomplicated; E86.1 Hypovolemia; Z79.01 Long term (current) use of anticoagulants
CPT/HCPCS: 36415; 71010; 80048; 80053; 82550; 82553; 83605; 83690; 83735; 83880; 84484; 85025; 85610; 85730; 86140; 93005; A9270-GY; J1170; J1650; J2270; J2405; J2765; J3475

== ENCOUNTER 2017-08-17 14:23 | Observation (INO) | payer OTHER ==
--- NOTE | 2017-08-17 15:19 | RAD ---
HISTORY: Chest pain COMPARISONS: July 24, 2017 VIEWS: 2: Frontal and lateral views of the chest. FINDINGS: CARDIOMEDIASTINAL SILHOUETTE: The cardiomediastinal silhouette is normal. TAL: The tal are normal. PLEURA: The costophrenic angles are sharp. No pleural abnormalities are noted. LUNG PARENCHYMA: There is hyperinflation with flattening of the diaphragm and expansion of the AP diameter of the chest. ABDOMEN: The upper abdomen is clear. There is no subphrenic gas. BONES AND SOFT TISSUES: The patient appears to be status post left mastectomy. A right breast prosthesis is noted. OTHER: None. IMPRESSION: HYPERINFLATION. NO ACTIVE CARDIOPULMONARY DISEASE.
[2017-08-17] MEDS ORDERED: Morphine INJ* 4 MG/ML 1 ML CARPUJECT IV ONE (17:05)
[2017-08-17] MEDS ORDERED: Ondansetron INJ* 2 MG/ML VIAL IV ONE ×2 (17:05→20:12)
[2017-08-17 17:29] LABS: ALT 8 U/L (7-52); Albumin 4.4 g/dL (3.2-5.2); Alkaline Phosphatase 49 U/L (34-104); BUN/Creatinine Ratio 23.5 (8-20); Blood Urea Nitrogen 16 mg/dL (6-24); CO2 Carbon Dioxide 23 mmol/L (22-32); Calcium 9.5 mg/dL (8.6-10.3); Chloride 94 mmol/L (101-111); EGFR African American 112.8 (>60); EGFR Non-African American 87.7 (>60); Globulin 3.6 g/dL (2-4); Glucose 97 mg/dL (70-100); Sodium 128 mmol/L (133-145)
[2017-08-17 17:31] LABS: Troponin I 0.01 ng/mL (<0.04)
[2017-08-17 17:32] LABS: Anion Gap 11 mmol/L (2-11)
[2017-08-17 18:16] LABS: Hematocrit 40 % (35-47); Hemoglobin 13.9 g/dl (12.0-16.0); Mean Corpuscular HGB Conc 35 g/dl (31-36); Mean Corpuscular Hemoglobin 29 pg (27-31); Mean Corpuscular Volume 85 fL (80-97); Mean Platelet Volume 7 um3 (7.4-10.4); Red Blood Count 4.72 10^6/ul (4.0-5.4); Red Cell Distribution Width 14 % (10.5-15); White Blood Count 10.9 10^3/ul (3.5-10.8)
[2017-08-17 19:09] LABS: Magnesium 1.7 mg/dL (1.9-2.7)
[2017-08-17 19:33] LABS: Troponin I 0.01 ng/mL (<0.04)
[2017-08-17] MEDS ORDERED: Magnesium Sulfate 2 GM IV* 2 GM/50 ML BAG IVPB ONE (20:31)
--- NOTE | 2017-08-17 20:56 | PN ---
Marisol Chatterjee Emily, scribed for Delonte Ruiz on 08/17/17 at 2036 . Progress Note - Progress Note Date of Service: 08/17/17 Note: SIGN-OFF FROM DR. CANTU UPON SHIFT CHANGE. DIAGNOSIS AND DISPOSITION: Pt reports still having CP, nausea, and vomiting. Pt has a history of CAD and achalasia. DIAGNOSIS: CHEST PAIN R/O LA ACHALASIA HX CAD Admit to Dr Meng (hospitalist) with a diagnosis of chest pain. The documentation as recorded by the afshinibMarisol sigala Emily accurately reflects the service I personally performed and the decisions made by Joseph breen Emmanuel.
[2017-08-17] MEDS ORDERED: KCL 20 MEQ/100 ML IVPREMIX* 20 MEQ/100 ML BAG IV ONE (21:00)
[2017-08-17] MEDS ORDERED: Potassium Chlor TAB* 20 MEQ TAB.ER PO ONE (21:00)
[2017-08-17] MEDS ORDERED: Morphine INJ* 2 MG/ML 1 ML SYRINGE (TWO MG - NEW SYRINGE VERSION) IV ONE (21:08)
[2017-08-17] MEDS ORDERED: Carisoprodol TAB* 350 MG PO PRN (21:12)
[2017-08-17] MEDS ORDERED: Prochlorperazine TAB* 10 MG PO PRN (21:12)
[2017-08-17] MEDS ORDERED: Albuterol HFA INHALER* 8 gm MDI INH PRN (21:12)
[2017-08-17] MEDS ORDERED: NS 0.9% 1000 ML* 1,000 ML IV SCH (21:15)
[2017-08-17] MEDS ORDERED: hydrALAZINE IV* 20 MG/ML VIAL IV SLOW PU PRN ×2 (21:37→23:13)
[2017-08-17] MEDS ORDERED: PROCHLORPERAZINE INJ 5 MG/ML 2 ML VIAL IV PRN (21:56)
[2017-08-17] MEDS ORDERED: Ondansetron INJ* 2 MG/ML VIAL IV PRN (21:58)
[2017-08-17] MEDS ORDERED: Pantoprazole IV* 40 MG IV SCH (22:00)
[2017-08-17 22:39] LABS: Troponin I 0.01 ng/mL (<0.04)
[2017-08-17] MEDS: Heparin VIAL(*) 5000 UNITS/ML VIAL (FIVE THOUSAND) SUBCUT SCH (22:44)
[2017-08-17 23:04] LABS: TSH (Thyroid Stimulating Horm) 0.76 mcIU/mL (0.34-5.60)
[2017-08-17] MEDS ORDERED: Nitroglycerin TAB 0.4 MG* 0.4 MG TAB SL ONE (23:12)
[2017-08-17] MEDS: KCL 20 MEQ/100 ML IVPREMIX* 20 MEQ/100 ML BAG IV SCH (23:16)
[2017-08-17 23:34] LABS: C Reactive Protein 3.44 mg/L (< 5.00)
[2017-08-18 00:12] LABS: Erythrocyte Sed Rate 31 mm/Hr (0-30)
--- NOTE | 2017-08-18 00:26 | HP ---
CC: Dr. Trish Combs * HISTORY AND PHYSICAL: DATE OF ADMISSION: 08/17/17 PRIMARY CARE PROVIDER: Dr. Trish Combs. ATTENDING PHYSICIAN: Dr. Gordon Campbell * (dictated by Liss Chandler NP). CHIEF COMPLAINT: Nausea, dry heaves, and sternal chest pain. HISTORY OF PRESENT ILLNESS: Ms. Prasad is a 62-year-old female with past medical history significant for angina, coronary artery disease, history of MA, 2 cardiac stents placed, DVT and PE, hyperlipidemia, hypertension, achalasia, Fernández's esophagus, who presented to the emergency room with complaints of chest pain with nausea and dry heaves, this started yesterday. The patient states that she first developed a mid sternal chest discomfort and then started dry heaving and has continued to have nausea. She tried Compazine and Zofran in addition to her home morphine prior to her arrival. She states this has not relieved her pain. The patient describes the sternal chest pain as a constant pressure. The patient denies any recent cold symptoms such as fever, chills, cough, nasal congestion, shortness of breath, diaphoresis. She denies any urinary symptoms. She reports abdominal discomfort. She reports similar symptom 3 weeks ago; at which time, she was hospitalized. It was felt that her symptoms were related to her achalasia at that time. The patient decided to present to the emergency room for further evaluation of her symptoms. While in the emergency room, the patient had labs that were significant for a potassium of 3.2, magnesium 1.7, troponins 0.01 x2. EKG showing a sinus rhythm , left anterior fascicular block with a T-wave inversion in V2 and V3 in addition to ST depression in leads 5 and 6 that are similar to previous EKG from 07/24/17. The patient had a chest x-ray showing hyperinflation and no active cardiopulmonary disease. The patient received morphine and Zofran while in the ER and reported no relief from her symptoms. Hospitalists were asked to evaluate the patient for admission. PAST MEDICAL HISTORY: 1. Angina. 2. Coronary artery disease, status post MA and stent placement. 3. DVT and PE. 4. Hyperlipidemia. 5. Hypertension. 6. Chronic obstructive pulmonary disease. 7. Achalasia. 8. Fernández's esophagus. 9. TIA. 10. Breast cancer. PAST SURGICAL HISTORY: 1. Status post right breast lumpectomy. 2. Status post bilateral mastectomies. 3. Status post left knee replacement. 4. Status post appendectomy. 5. Status post hysterectomy. 6. Esophageal dilation. 7. Status post bilateral shoulder surgery. 8. Status post Godwin fundoplication. 9. Status post cardiac stents in 2004 and 2005. HOME MEDICATIONS: Include: 1. Benadryl 50 mg oral every 6 hours as needed for allergy symptoms. 2. Amlodipine 10 mg oral every morning. 3. Simvastatin 20 mg oral daily at bedtime. 4. Compazine 10 mg oral twice daily as needed for nausea. 5. Zofran 4 mg oral every 8 hours as needed for nausea. 6. Omeprazole 40 mg oral daily. 7. Jevity 1.5 100 mL an hour for 12 hours overnight daily. 8. Morphine 15 mg oral every 4 hours as needed for pain. 9. Morphine sulfate extended release 30 mg oral 4 times daily. 10. Metoprolol succinate 50 mg oral every morning. 11. Losartan 50 mg oral daily. 12. EpiPen 0.3 mg injection once a day for anaphylactic shock. 13. Vitamin B12 1000 mcg intramuscular monthly. 14. Plavix 75 mg oral every morning. 15. Soma 150 mg oral twice daily as needed for spasms. 16. Optivar 0.05% one drop to both eyes twice daily. 17. Albuterol HFA inhaler 2 puffs inhalation every 4 hours as needed for shortness of breath or wheeze. ALLERGIES: BOTOX, IODINE CONTRAST, NSAIDS, PENICILLIN, ADHESIVE TAPE, BEE VENOM , CHLORHEXIDINE, LATEX, BETADINE, SHELLFISH, SEASONAL ALLERGIES. FAMILY HISTORY: The patient's father and 2 brothers have a history of myocardial infarction. The patient's mother had a history of diabetes mellitus. The patient denies any family history of cancer. SOCIAL HISTORY: The patient is a current smoker smoking approximately half a pack a day, she has greater than a 50-year smoking history. She denies alcohol or recreational drug use. The patient's daughter, Viola Mcmahan, will be her surrogate decision maker in any event she is unable to make decisions for herself. REVIEW OF SYSTEMS: I performed a 14-point review of systems. All the pertinent positives and negatives are mentioned in the history of present illness. The remaining of review of systems is negative. PHYSICAL EXAMINATION GENERAL APPEARANCE: The patient is alert, pleasant, appears to be in no acute distress. VITAL SIGNS: Temperature 97.9, heart rate 74, respiratory rate 17, O2 sat 94% on room air, blood pressure 182/103. HEENT: Normocephalic, atraumatic. Pupils are equal and reactive to light. Extraocular movements are intact. RESPIRATORY: There is no accessory muscle use and lungs are clear to auscultation bilaterally. CARDIOVASCULAR: Regular rate and rhythm. S1, S2 present. There are no murmurs , rubs, or gallops heard. ABDOMEN: Soft, diffusely tender, and nondistended. There are bowel sounds present x4. EXTREMITIES: There is lower extremity edema. DP and PT pulses are 2+ and symmetric. MUSCULOSKELETAL: There is no clubbing or cyanosis noted. The patient exhibits good strength in all extremities. NEUROLOGICAL: The patient is alert and oriented x4. Cranial nerves II through XII are grossly intact. PSYCHOLOGICAL: The patient is calm and cooperative. SKIN: There are no rashes or abnormalities seen. The patient has a PEG tube to her abdomen and site is benign. DIAGNOSTIC STUDIES/LABORATORY DATA: Sodium 128, potassium 3.2, chloride 94, CO2 23, BUN 16, creatinine 0.68, glucose 97. Magnesium 1.7. Troponin 0.01 x2. White blood cell count 10.9, hemoglobin 13.9, hematocrit 40, platelet count 330. EKG shows a sinus rhythm with a rate of 82. There is a left anterior fascicular block. There is T-wave inversion in lead V2 and V3 and ST depression in leads V5 and V6. EKG is similar to previous EKG from 07/24/17. Chest x-ray from today. Radiologist impression: Hyperinflation. No active cardiopulmonary disease. IMPRESSION: Ms. Prasad is a 62-year-old female with past medical history significant for angina, coronary artery disease, status post myocardial infarction and stents, deep venous thrombosis, pulmonary embolism, chronic obstructive pulmonary disease, hypertension, hyperlipidemia, and achalasia, who presents to the emergency room with complaints of chest discomfort with associated nausea and dry heaving. She will be admitted as an observation for chest pain, nausea, and dry heaves. ASSESSMENT AND PLAN: 1. Chest pain. I suspect this is secondary to the patient's dry heaves. The pain is not reproducible with palpation. The patient will be provided with pain medication. We will check her troponin one more time and monitor her on telemetry. 2. Achalasia. I suspect her symptoms are a result of an exacerbation of the patient's achalasia. The patient will be continued on Zofran and Compazine. She will have a tube feeding per her home regimen overnight. We will try to limit some of her oral medications. 3. Hypertension. The patient will be continued on her home amlodipine, losartan, and metoprolol. I suspect some of the patient's hypertension in the emergency room is secondary to her pain. We will also give her hydralazine as needed for blood pressure greater than 180 systolic or 110 diastolic. 4. Electrolyte abnormalities. Hypokalemia and hypomagnesemia, will will give replacement and recheck labs in the AM. 5. History of coronary artery disease. The patient will be continued on her home Plavix, metoprolol, and statin. 6. Chronic pain. The patient will be continued on her home extended and short - acting morphine. 7. Fluids, electrolytes, and nutrition. The patient can be on a regular heart healthy diet as tolerated. She will also be continued on her home Jevity 1.5 infusion for 12 hours overnight. 8. Code status. Full code. 9. DVT prophylaxis. The patient is at highest risk and will be placed on SCDs and subcu heparin. 10. Disposition. Observation. TIME SPENT: Time for this admission was approximately 60 minutes, greater than half of that was spent with the patient discussing medications, past medical history and the events leading up to her arrival today, performing the physical examination. The case has been reviewed with the attending, Dr. Campbell, who agrees with the plan of care. Reviewed by JUICE ERICKSON 08/18/17 1121 [id number]/[facility] #: [id number] [place]
[2017-08-18 02:35] LABS: Urine Bacteria Absent (Absent); Urine Bilirubin Negative (Negative); Urine Glucose Negative (Negative); Urine Nitrite Negative (Negative)
[2017-08-18] MEDS: Morphine ORAL.SOLN 10 mg* 2 MG/ML UDC 5 ml PO PRN ×4 (02:36→11:43)
[2017-08-18] MEDS: Heparin VIAL(*) 5000 UNITS/ML VIAL (FIVE THOUSAND) SUBCUT SCH (04:55)
[2017-08-18] MEDS: KCL 20 MEQ/100 ML IVPREMIX* 20 MEQ/100 ML BAG IV SCH ×2 (04:55→08:06)
[2017-08-18 06:20] LABS: Hematocrit 40 % (35-47); Hemoglobin 13.5 g/dl (12.0-16.0); Mean Corpuscular HGB Conc 34 g/dl (31-36); Mean Corpuscular Hemoglobin 29 pg (27-31); Mean Corpuscular Volume 85 fL (80-97); Mean Platelet Volume 8 um3 (7.4-10.4); Red Blood Count 4.65 10^6/ul (4.0-5.4); Red Cell Distribution Width 14 % (10.5-15); White Blood Count 15.2 10^3/ul (3.5-10.8)
[2017-08-18 06:35] LABS: BUN/Creatinine Ratio 22.6 (8-20); Calcium 8.3 mg/dL (8.6-10.3); EGFR African American 150.3 (>60); EGFR Non-African American 116.9 (>60); Magnesium 2.2 mg/dL (1.9-2.7); Potassium 3.8 mmol/L (3.5-5.0)
[2017-08-18] MEDS ORDERED: KCL 20 MEQ/100 ML IVPREMIX* 20 MEQ/100 ML BAG ONE (08:01)
[2017-08-18] MEDS ORDERED: Morphine ORAL CONCENTRATE* 5 MG/0.25 ML ORAL.SYRIN PO PRN (08:39)
--- NOTE | 2017-08-18 08:51 | DCNOTE ---
Subjective Date of Service: 08/18/17 Interval History: Pain from achalasia still severe. Tolerates her nightly TF OK. BP was high at home lately. Never has emeis. Objective Active Medications: Albuterol (Ventolin Hfa Inhaler*) 2 puff INH Q4H PRN PRN Reason: WHEEZING Amlodipine Besylate (Norvasc Tab*) 10 mg PO QAM [facility] Last Admin: 08/18/17 08:06 Dose: 10 mg Atorvastatin Calcium (Lipitor*) 10 mg PO BEDTIME [facility] Carisoprodol (Soma Tab*) 350 mg PO BID PRN PRN Reason: SPASMS - MUSCLE Last Admin: 08/18/17 08:13 Dose: 350 mg Clopidogrel Bisulfate (Plavix Tab*) 75 mg PO QAM [facility] Last Admin: 08/18/17 08:06 Dose: 75 mg Heparin Sodium (Porcine) (Heparin Vial(*)) 5,000 units SUBCUT Q8HR [facility] Last Admin: 08/18/17 04:55 Dose: 5,000 units Hydralazine HCl (Apresoline Iv*) 10 mg IV SLOW PU Q10H PRN PRN Reason: BLOOD PRESSURE Last Admin: 08/17/17 23:32 Dose: 10 mg Losartan Potassium (Cozaar Tab*) 100 mg PO DAILY [facility] Metoprolol Succinate (Toprol Xl Tab*) 50 mg PO QAM [facility] Last Admin: 08/18/17 08:06 Dose: 50 mg Morphine Sulfate (Ms Contin(*)) 30 mg PO TID [facility] Last Admin: 08/18/17 08:06 Dose: 30 mg Morphine Sulfate (Morphine Oral Concentrate*) 20 mg PO Q2H PRN PRN Reason: PAIN Ondansetron HCl (Zofran Inj*) 4 mg IV Q6H PRN PRN Reason: NAUSEA Last Admin: 08/18/17 07:07 Dose: 4 mg Pantoprazole Sodium (Protonix Iv*) 40 mg IV Q24H [facility] Last Admin: 08/18/17 08:05 Dose: 40 mg Prochlorperazine Edisylate (Compazine Inj*) 10 mg IV Q6H PRN PRN Reason: NAUSEA/VOMITING Last Admin: 08/18/17 02:38 Dose: 10 mg Vital Signs 10/28/17 10/28/17 10/28/17 21:23 21:26 21:53 Temperature 99.1 F Pulse Rate 65 Respiratory 18 18 18 Rate Blood Pressure 192/98 (mmHg) O2 Sat by Pulse 96 Oximetry 08/17/17 08/17/17 08/17/17 22:26 23:05 23:06 Temperature Pulse Rate 65 64 Respiratory 17 Rate Blood Pressure 177/89 175/85 (mmHg) O2 Sat by Pulse Oximetry 08/17/17 08/18/17 08/18/17 23:28 02:36 03:56 Temperature 98.8 F 98.6 F Pulse Rate 70 97 Respiratory 16 22 18 Rate Blood Pressure 196/95 183/98 (mmHg) O2 Sat by Pulse 96 95 Oximetry 08/18/17 08/18/17 08/18/17 04:36 06:58 07:18 Temperature 98.5 F Pulse Rate 76 Respiratory 19 20 16 Rate Blood Pressure 190/98 (mmHg) O2 Sat by Pulse 96 Oximetry 08/18/17 08/18/17 08:06 08:13 Temperature Pulse Rate Respiratory 18 18 Rate Blood Pressure (mmHg) O2 Sat by Pulse Oximetry Oxygen Devices in Use Now: None Appearance: Alert, sitting up in bed. In fair spirits. Looks fairly comfortable. Eyes: No Scleral Icterus Neck: NL Appearance and Movements; NL JVP, No Thyroid Enlargement, Masses Respiratory: Symmetrical Chest Expansion and Respiratory Effort, Clear to Auscultation, Clear to Percussion Abdominal: NL Sounds; No Tenderness; No Distention, No Hepatosplenomegaly, - Extremities: No Edema, No Clubbing, Cyanosis, - Skin: No Rash or Ulcers, No Nodules or Sclerosis, - Neurological: Alert and Oriented x 3, NL Sensation Result Diagrams: 08/18/17 05:59 08/18/17 05:59 Assess/Plan/Problems-Billing Assessment: - Patient Problems (1) Achalasia Status: Chronic Code(s): K22.0 - ACHALASIA OF CARDIA SNOMED Code(s): 07235416 Comment: This is the cause of her dry heaves and chest pain. Sees a specialist in [place]. She did very well with a trial dose of oral MS concentrate 25 mg po, and was rx'd the same on discharge. She may use her PRN MS IR also. She can take enteral prochlorperazine per her feeding tube. She tolerates the TF diet well. She can swallow MS ER--takes 30 mg QID at home. Consideration for increasing the ER dose is suggested. (2) HTN (hypertension) Status: Chronic Code(s): I10 - ESSENTIAL (PRIMARY) HYPERTENSION SNOMED Code( s): 08692964 Comment: BP has been high at home as well. Increase losartan to 100 mg daily , continue amlodipine and metoprolol at home doses. (3) CAD (coronary artery disease) Status: Chronic Code(s): I25.10 - ATHSCL HEART DISEASE OF ELEM CORONARY ARTERY W/O ANG PCTRS SNOMED Code(s): 57797142 Comment: Continue clopidogrel, metoprolol. Increase simvastatin to 40 mg daily.
[2017-08-18] MEDS ORDERED: amLODIPine TAB* 5 MG PO SCH (09:00)
[2017-08-18] MEDS ORDERED: Cyanocobalamin INJ * 1,000 MCG/ML VIAL 1 ML VIAL IM SCH (09:00)
[2017-08-18] MEDS ORDERED: Pantoprazole IV* 40 MG IV SCH (09:00)
[2017-08-18] MEDS ORDERED: Losartan TAB* 25 MG PO SCH ×2 (09:00)
[2017-08-18] MEDS ORDERED: Clopidogrel TAB* 75 MG PO SCH (09:00)
[2017-08-18] MEDS ORDERED: CMCS Pantoprazole TAB (NF) 40 MG TAB PO SCH (09:00)
[2017-08-18] MEDS ORDERED: Metoprolol Succinate XL TAB* 50 MG PO SCH ×2 (09:00)
[2017-08-18] MEDS ORDERED: Morphine TAB Extended Release (*) 30 MG TAB.ER PO SCH (09:00)
[2017-08-18 11:09] VITALS: BP 122/73
[2017-08-18] MEDS ORDERED: Morphine ORAL CONCENTRATE* 5 MG/0.25 ML ORAL.SYRIN PO ONE (11:50)
--- NOTE | 2017-08-18 12:31 | PN ---
"Progress Note - Progress Note Date of Service: 08/18/17 Note: Search Terms: les prasad, 1955 Search Date: 08/18/2017 12:29:10 PM The Drug Utilization Report below displays all of the controlled substance prescriptions, if any, that your patient has filled in the last twelve months. The information displayed on this report is compiled from pharmacy submissions to the Department, and accurately reflects the information as submitted by the pharmacies. This report was requested by: Adam Rosas | Reference #: [id number] Others' Prescriptions Patient Name: Les Prasad Date: 1955 Address: [address] [place] [address] Sex: Female Rx Written Rx Dispensed Drug Quantity Days Supply Prescriber Name 07/24/2017 07/24/2017 morphine sulfate ir 15 mg tab 180 30 BlegenTrish MD 07/24/2017 07/24/2017 morphine sulf er 30 mg tablet 90 30 BlegenTrish MD 07/23/2017 07/24/2017 carisoprodol 350 mg tablet 60 30 BlegenTrish MD 07/16/2017 07/16/2017 morphine sulfate ir 15 mg tab 60 10 BlegenTrish MD 06/25/2017 06/26/2017 morphine sulfate ir 15 mg tab 120 30 BlegenTrish MD 06/25/2017 06/26/2017 morphine sulf er 30 mg tablet 90 30 BlegenTrish MD 06/25/2017 06/26/2017 carisoprodol 350 mg tablet 60 30 Newton, Ming L Iii 05/22/2017 05/26/2017 morphine sulfate ir 15 mg tab 120 30 BlegenTrish MD 05/22/2017 05/26/2017 morphine sulf er 30 mg tablet 90 30 BlegenTrish MD 05/22/2017 05/26/2017 carisoprodol 350 mg tablet 60 30 BlegenTrish MD 04/25/2017 04/29/2017 morphine sulfate ir 15 mg tab 108 27 BlegenTrish MD 04/25/2017 04/29/2017 morphine sulf er 30 mg tablet 81 27 BlegenTrish MD 04/25/2017 04/25/2017 morphine sulfate ir 15 mg tab 12 3 BlegenTrish MD 04/25/2017 04/25/2017 morphine sulf er 30 mg tablet 9 3 Blegen, Trish Calero MD 04/25/2017 04/25/2017 carisoprodol 350 mg tablet 60 30 Blegen, Trish Calero MD 03/25/2017 03/26/2017 morphine sulfate ir 15 mg tab 120 30 Blegen, Trish Calero MD 03/25/2017 03/26/2017 morphine sulf er 30 mg tablet 90 30 Blegen, Trish Calero MD 03/25/2017 03/26/2017 carisoprodol 350 mg tablet 60 30 Blegen, Trish Calero MD 02/13/2017 02/28/2017 morphine sulfate ir 15 mg tab 90 30 Blegen, Trish Calero MD 02/13/2017 02/28/2017 morphine sulf er 30 mg tablet 90 30 Blegen, Trish Calero MD 02/13/2017 02/28/2017 carisoprodol 350 mg tablet 60 30 Blegen, Trish Calero MD 01/10/2017 01/15/2017 morphine sulf er 30 mg tablet 60 30 Blegen, Trish Calero MD 01/10/2017 01/15/2017 morphine sulfate ir 15 mg tab 90 30 Blegen, Trish Calero MD 01/12/2017 01/12/2017 carisoprodol 350 mg tablet 60 30 Chelsea Cast MD 12/13/2016 12/17/2016 morphine sulfate ir 15 mg tab 90 30 Blegen, Trish Calero MD 12/13/2016 12/17/2016 morphine sulf er 30 mg tablet 60 30 Blegen, Trish Calero MD 12/13/2016 12/14/2016 carisoprodol 350 mg tablet 60 30 Blegen, Trish Calero MD 11/15/2016 11/16/2016 morphine sulfate ir 15 mg tab 90 30 Blegen, Trish Calero MD 11/15/2016 11/16/2016 morphine sulf er 30 mg tablet 60 30 Blegen, Trish Calero MD 11/05/2016 11/05/2016 carisoprodol 350 mg tablet 60 30 Blegen, Trish Calero MD 10/08/2016 10/11/2016 morphine sulfate ir 15 mg tab 60 30 Blegen, Trish Calero MD 10/08/2016 10/09/2016 morphine sulf er 30 mg tablet 30 15 Blegen, Trish Calero MD 09/24/2016 09/25/2016 morphine sulfate ir 15 mg tab 30 10 Blegen, Trish Calero MD 09/24/2016 09/25/2016 morphine sulf er 30 mg tablet 30 15 rTish Combs MD 09/20/2016 09/20/2016 morphine sulfate ir 15 mg tab 15 5 Trish Combs MD 09/20/2016 09/20/2016 carisoprodol 350 mg tablet 60 30 Trish Combs MD 09/16/2016 09/16/2016 hydromorphone 2 mg tablet 30 5 Yumiko Milan (DO) 09/16/2016 09/16/2016 morphine sulf er 30 mg tablet 10 5 Yumiko Milan (DO ) 08/19/2016 08/22/2016 carisoprodol 350 mg tablet 60 20 Trish Combs MD Patient Name: Les Prasad Date: 1955 Address: [address] [place] [address] Sex: Female Rx Written Rx Dispensed Drug Quantity Days Supply Prescriber Name 10/30/2016 10/30/2016 morphine sulf er 30 mg tablet [address] [facility]"
[2017-08-18] MEDS ORDERED: Atorvastatin* 10 MG TAB PO SCH (21:00)
--- NOTE | 2017-08-19 01:59 | DS ---
CC: Dr. Domínguez; Dr. He DISCHARGE SUMMARY: DATE OF ADMISSION: 08/17/17 DATE OF DISCHARGE: 08/18/17 HISTORY OF PRESENT ILLNESS: This 62-year-old woman came complaining of chest pain. Although she has a history of significant coronary artery disease, she also has a very major history of achalasia. She knew this was her achalasia pain. She was admitted to the telemetry unit. She had negative tro ponins. There was no significant EKG changes. She has dry heaves. She cannot throw up due to her achalasia. She is able to take some oral medications if they are coated. She has been on a tube fe ed diet and takes her extended release morphine through the tube. She has to swallow the extended re lease morphine as this cannot be crushed like many other medications she takes through the tube. I note her amlodipine was recently stopped and restarted. She still reported she had high blood press ures at home. She was given 25 mg of oral morphine concentrate with good relief. She will continue on this at [facility]. I have increased the losartan from 50 to 100 mg daily. I have also increased the simvastatin fro m 20 to 40 mg daily. I will leave it up to Dr. Domínguez to decide on the correct statin dose to use on her. FINAL DIAGNOSES: 1. Achalasia. 2. Hypertension. 3. Coronary artery disease. 4. Insomnia. DISCHARGE MEDICATIONS: 1. Morphine oral concentrate 25 mg every 2 hours p.r.n. 2. Losartan 100 mg daily. 3. Simvastatin 40 mg every evening. 4. Vitamin B12, 1000 mcg IM monthly. 5. Azelastine 0.05% both eyes twice daily. 6. EpiPen p.r.n. 7. Carisoprodol 350 mg b.i.d. p.r.n. 8. Albuterol inhaler 2 puffs every 4 hours p.r.n. 9. Metoprolol succinate 50 mg daily. 10. Omeprazole 40 mg daily. 11. Morphine 15 mg every 4 hours p.r.n. 12. Prochlorperazine 10 mg b.i.d. p.r.n. 13. Amlodipine 10 mg daily. 14. Clopidogrel 75 mg daily. 15. Diphenhydramine 50 mg every 6 hours p.r.n. 16. Morphine extended release 30 mg 4 times a day. 17. Nutritional supplement Jevity 1.5, evening infusion. 18. Ondansetron ODT 4 mg every 8 hours p.r.n. [id number]/[facility] #: [id number]
--- NOTE | 2017-08-19 11:35 | ED ---
Bernice Chatterjee Edward, scribed for Polo Carrion MD on 08/17/17 at 1506 . HPI Chest Pain - HPI Summary HPI Summary: 62 y/o female presents to the ED c/o constant, mid-sternal CP starting yesterday. Associated sx: nausea and dry heaving. Pt has been taking Compazine and Zofran for nausea and heaving. The pt's last episode of nausea and dry heaving was around 3 weeks ago. Denies fevers, chills and cough. PMHx acclasia, 2x [place] with stenting. - History of Current Complaint Chief Complaint: EDChestPainROMI Time Seen by Provider: 08/17/17 14:57 Hx Obtained From: Patient Onset/Duration: Started Days Ago Current Severity: Severe Pain Intensity: 8 Pain Scale Used: 0-10 Numeric Chest Pain Location: Mid Sternal Aggravating Factor(s): Nothing Alleviating Factor(s): Nothing Associated Signs and Symptoms: Positive: Chest Pain, Nausea - and heaving - Additional Pertinent History Primary Care Physician: ERIKA - Allergy/Home Medications Allergies/Adverse Reactions: Allergies Allergy/AdvReac Type Severity Reaction Status Date / Time Albumin Human [From Botox] Allergy Severe Anaphylatic Verified 07/23/17 12:59 Shock Iodinated Contrast Media Allergy Severe Anaphylatic Verified 07/23/17 12:59 [IV CONTRAST DYE] Shock Iodine Allergy Severe Anaphylatic Verified 07/23/17 12:59 Shock NSAIDs Allergy Severe Hives Verified 07/23/17 12:59 OnabotulinumtoxinA Allergy Severe Anaphylatic Verified 07/23/17 12:59 [From Botox] Shock Penicillins Allergy Severe Anaphylatic Verified 07/23/17 12:59 Shock Adhesive Tape Allergy Itching Verified 07/23/17 12:59 Bee Venom Allergy Anaphylatic Verified 07/23/17 12:59 Shock Chlorhexidine Allergy Rash And Verified 07/23/17 12:59 [From Hibiclens] Itching Latex Allergy Hives Verified 07/23/17 12:59 Povidone Iodine Allergy Itching Verified 07/23/17 12:59 [From Betadine] Shellfish Allergy Allergy Anaphylatic Verified 07/23/17 12:59 Shock ENVIRONMENTAL/SEASONAL Allergy ITCHY,WATERY Uncoded 07/23/17 12:59 HAYFEVER EYES, SNEEZE, CONGESTION PMH/Surg Hx/FS Hx/Imm Hx Previously Healthy: No Endocrine/Hematology History: Reports: Hx Anticoagulant Therapy - plavix, Hx Anemia - possible Denies: Hx Diabetes, Hx Thyroid Disease Cardiovascular History: Reports: Hx Angina, Hx Coronary Artery Disease - 2 stents, Hx Deep Vein Thrombosis, Hx Embolism, Hx Hypercholesterolemia, Hx Hypertension - on meds, Hx Myocardial Infarction, Hx Syncope Denies: Hx Congestive Heart Failure, Hx Pacemaker/ICD, Hx Valvular Heart Disease, Other Cardiovascular Problems/Disorders Respiratory History: Reports: Hx Chronic Obstructive Pulmonary Disease (COPD) - Pt denies though providers have diagnosed it, Hx Pneumonia, Hx Pulmonary Embolism - 30 yrs ago, Hx Seasonal Allergies, Other Respiratory Problems/ Disorders - SMOKER Denies: Hx Asthma, Hx Sleep Apnea GI History: Reports: Hx Diverticulosis, Hx Gastroesophageal Reflux Disease, Hx Hiatal Hernia - 3 surgeries, Other GI Disorders - achalasia, Fernández's esophagus , Denies: Hx Ulcer History: Reports: Hx Kidney Infection, Hx Kidney Stones - LAST 12/2015- NO PROBLEMS SINCE PER PATIENT Denies: Hx Dialysis, Hx Renal Disease, Other Problems/Disorders Musculoskeletal History: Reports: Hx Arthritis - LEFT KNEE, BACK, Hx Back Problems - L1 fx, Other Musculoskeletal History - L1 fx Denies: Hx Osteoporosis Sensory History: Reports: Hx Cataracts - maryuri, Hx Contacts or Glasses - glasses Denies: Hx Hearing Aid Opthamlomology History: Reports: Hx Cataracts - maryuri, Hx Contacts or Glasses - glasses Neurological History: Reports: Hx Spinal Cord Injury - L1, Hx Transient Ischemic Attacks (TIA), Other Neuro Impairments/Disorders - POSSIBLE SMALL TIA'S - 3 yrs ago Psychiatric History: Reports: Hx Anxiety Denies: Hx Panic Disorder - Cancer History Cancer Type, Location and Year: RT BREAST CA, 2009 HAD A BILATERAL MASTECTOMY Hx Chemotherapy: No Hx Radiation Therapy: No - Surgical History Surgery Procedure, Year, and Place: RT LUMPECTOMY 02/2010, BILATERAL MASTECTOMY ,. 2001& 2002 CARDIAC STENT AT [facility] IN [place],. LEFT KNEE SURGERY X10,. BILATERAL SHOULDER SURGERY,. ESPOHOGEAL SURGERY,1996, 2014. failed breast implant on left. PARTIAL HYSTERECTOMY, 1976. APPENDIX A CHILD,. CHEST TUBE, 1996. ESOPHAGEAL DILATION. NISSIN FUNDOLPICATION multiple Hx Anesthesia Reactions: No - Immunization History Date of Tetanus Vaccine: up to date Date of Influenza Vaccine: 06/2016 Infectious Disease History: No Infectious Disease History: Denies: Hx Clostridium Difficile, Hx Hepatitis, Hx Human Immunodeficiency Virus (HIV), Hx of Known/Suspected MRSA, Hx Shingles, Hx Tuberculosis, Hx Known/ Suspected VRE, Hx Known/Suspected VRSA, History Other Infectious Disease, Traveled Outside the US in Last 30 Days - Family History Known Family History: Positive: Cardiac Disease - Father, 2 brothers - [place]. Mother - AFIB, Hypertension, Diabetes - Social History Alcohol Use: None Hx Substance Use: No Substance Use Type: Reports: None Substance Use Comment - Amount & Last Used: prescribed Hx Tobacco Use: Yes Smoking Status (MU): Heavy Every Day Tobacco Smoker Type: Cigarettes Amount Used/How Often: 10 CIGARETTES A WEEK X 45 YEARS Length of Time of Smoking/Using Tobacco: 40+ YEARS Have You Smoked in the Last Year: Yes Review of Systems Constitutional: Negative Eyes: Negative ENT: Negative Positive: Chest Pain Respiratory: Negative Positive: Nausea - and dry heaving Genitourinary: Negative Musculoskeletal: Negative Skin: Negative Neurological: Negative Psychological: Normal All Other Systems Reviewed And Are Negative: Yes Physical Exam - Summary Physical Exam Summary: VITAL SIGNS: Reviewed. GENERAL: ~Patient is a well-developed and nourished female who is lying comfortable in the stretcher. ~Patient is not in any acute respiratory distress. HEAD AND FACE: No signs of trauma. ~No ecchymosis, hematomas or skull depressions. No sinus tenderness. EYES: PERRLA, EOMI x 2, No injected conjunctiva, no nystagmus. EARS: Hearing grossly intact. Ear canals and tympanic membranes are within normal limits. MOUTH: Oropharynx within normal limits. NECK: Supple, trachea is midline, no adenopathy, no JVD, no carotid bruit, no c- spine tenderness, neck with full ROM. CHEST: Symmetric, no tenderness at palpation LUNGS: Clear to auscultation bilaterally. No wheezing or crackles. CVS: Regular rate and rhythm, S1 and S2 present, no murmurs or gallops appreciated. ABDOMEN: Soft, non-tender. No signs of distention. No rebound no guarding, and no masses palpated. Bowel sounds are normal. EXTREMITIES: FROM in all major joints, no edema, no cyanosis or clubbing. NEURO: Alert and oriented x 3. No acute neurological deficits. Speech is normal and follows commands. SKIN: Dry and warm Triage Information Reviewed: Yes Vital Signs On Initial Exam: Initial Vitals Temp Pulse Resp BP Pulse Ox 97.9 F 105 20 158/100 98 08/17/17 14:27 08/17/17 14:27 08/17/17 14:27 08/17/17 14:27 08/17/17 14:27 Vital Signs Reviewed: Yes Diagnostics - Vital Signs Vital Signs Temp Pulse Resp BP Pulse Ox 08/17/17 14:27 97.9 F 105 20 158/100 98 - Laboratory Result Diagrams: 08/17/17 18:01 08/17/17 15:40 Lab Statement: Any lab studies that have been ordered have been reviewed, and results considered in the medical decision making process. - Radiology CXR Xray Interpretation: No Acute Changes - HYPERINFLATION. NO ACTIVE CARDIOPULMONARY DISEASE. Radiology Interpretation Completed By: Radiologist - Additional Comments Diagnostic Additional Comments: EKG - 14:31 - SR @ [address] DEPRESSIONS IN V5-V6, similar to that of 07/24/17 Chest Pain Course/Dx - Course Assessment/Plan: 62 y/o female presents to the ED c/o constant, mid-sternal CP starting yesterday. Associated sx: nausea and dry heaving. Pt has been taking Compazine and Zofran for nausea and heaving. The pt's last episode of nausea and dry heaving was around 3 weeks ago. Denies fevers, chills and cough. PMHx acclasia, 2x [place] with stenting. CXR SHOWS HYPERINFLATION. NO ACTIVE CARDIOPULMONARY DISEASE. EKG - 14:31 - SR @ [address] DEPRESSIONS IN V5-V6, similar to that of 07/24/17. Test results are without significant abnormalities except WBC 10.9, sodium 129. The rest of the labs are hemolyzed so we have to repeat it. At this time, we will redraw labs. Pt was given morphine and zofran for n/v and pain and the pt is comfortable. The pt requests more pain medications. I reassessed the pt and she is comfortably sleeping; I had to wake her up for her to answer the questions. At this point we will draw bloods and check her trop. If the troponin is negative the pt will be d c home. The pt will be signed out to Dr. Ruiz to f/u test results and troponin. The pt is hemodynamically stable, A&Ox3. - Diagnoses Provider Diagnoses: CP secondary to achalasia, Nausea and vomiting Discharge - Discharge Plan Condition: Stable Disposition: OTHER Discharge Disposition Comment: Pt will be signed out to Dr. Ruiz pending troponin and labs The documentation as recorded by the Bernice vyas Edward accurately reflects the service I personally performed and the decisions made by Murali breen Walter, MD.
== END 2017-08-18 12:26 | disposition home or self-care (01) ==
LOC: ED 14:23 → MEDTELE 20:32
PROVIDERS: ADMIT Hospitalist; ATTEND Internal Medicine
DX: K22.0 Achalasia of cardia (principal); R07.9 Chest pain, unspecified; I10 Essential (primary) hypertension; I25.10 Atherosclerotic heart disease of native coronary artery without angina pectoris; G47.00 Insomnia, unspecified; E78.5 Hyperlipidemia, unspecified; R11.0 Nausea; I25.119 Atherosclerotic heart disease of native coronary artery with unspecified angina pectoris; Z95.5 Presence of coronary angioplasty implant and graft; Z86.711 Personal history of pulmonary embolism; Z86.718 Personal history of other venous thrombosis and embolism; Z79.899 Other long term (current) drug therapy; Z79.01 Long term (current) use of anticoagulants; Z88.8 Allergy status to other drugs, medicaments and biological substances; J44.9 Chronic obstructive pulmonary disease, unspecified; F17.210 Nicotine dependence, cigarettes, uncomplicated; G89.29 Other chronic pain; I49.1 Atrial premature depolarization
CPT/HCPCS: 36415; 71020; 80048; 80053; 81003; 81015; 82550; 82553; 83735; 83880; 84443; 84484; 85025; 85652; 86140; 87086; 93005; 96365; 96366; 96367; 96372; 96375; 96376; 99285; A9270-GY; G0378; J0360; J0780; J1644; J2270; J2405; J3420; J3475; J3480

== ENCOUNTER 2017-09-16 14:24 | Emergency (ER) | payer OTHER ==
--- NOTE | 2017-09-16 15:12 | RAD ---
INDICATION: Chest pain COMPARISON: August 09, 2017 TECHNIQUE: PA and lateral dual-energy views were obtained. FINDINGS: Bones/Soft Tissues: There are no acute bony findings. There is left mastectomy. There is a right breast implant Cardiomediastinal: The cardiomediastinal silhouette is normal. Lungs: There are no infiltrates. There is hyperinflation. Pleura: There are no pleural effusions. Other: None IMPRESSION: HYPERINFLATION. NO ACTIVE DISEASE.
[2017-09-16] MEDS ORDERED: Ondansetron INJ* 2 MG/ML VIAL IV ONE (15:23)
[2017-09-16] MEDS ORDERED: NS 0.9% 1000 ML* 2,000 ML IV ONE (15:23)
[2017-09-16] MEDS ORDERED: Morphine INJ* 4 MG/ML 1 ML CARPUJECT IV ONE ×2 (15:23→18:27)
[2017-09-16 15:37] LABS: Hematocrit 43 % (35-47); Hemoglobin 14.4 g/dl (12.0-16.0); Mean Corpuscular HGB Conc 34 g/dl (31-36); Mean Corpuscular Hemoglobin 29 pg (27-31); Mean Corpuscular Volume 86 fL (80-97); Mean Platelet Volume 8 um3 (7.4-10.4); Red Cell Distribution Width 14 % (10.5-15); White Blood Count 8.3 10^3/ul (3.5-10.8)
[2017-09-16 15:42] LABS: Add Diff/Slide Review? Manual Diff Added; Comments Flag Yes
[2017-09-16 15:55] LABS: Troponin I 0.01 ng/mL (<0.04)
[2017-09-16 16:01] LABS: Albumin 3.9 g/dL (3.2-5.2); BUN/Creatinine Ratio 30.8 (8-20); Calcium 8.7 mg/dL (8.6-10.3); EGFR African American 118.8 (>60); EGFR Non-African American 92.4 (>60); Globulin 3.2 g/dL (2-4); Total Bilirubin 0.7 mg/dL (0.2-1.0); Total Protein 7.1 g/dL (6.4-8.9)
[2017-09-16 16:21] LABS: TSH (Thyroid Stimulating Horm) 0.68 mcIU/mL (0.34-5.60)
[2017-09-16 16:39] LABS: Eosinophils % 1 % (0-6); Immature Granulocytes 3 % (0-9); Neutrophil % 77 % (38-83); RBC Morphology Normal (Normal)
[2017-09-16 16:58] LABS: Potassium 3.7 mmol/L (3.5-5.0)
[2017-09-16] MEDS ORDERED: Acetaminophen TAB* 325 MG ONE (19:14)
[2017-09-16] MEDS ORDERED: Acetaminophen TAB* 325 MG PO ONE (19:19)
[2017-09-16 19:47] VITALS: BP 188/92
--- NOTE | 2017-09-20 12:33 | ED ---
Dora Chatterjee Thomas, scribed for Polo Carrion MD on 09/16/17 at 1511 . GI/ HPI - HPI Summary HPI Summary: The pt is a 62 y/o F with a Hx of achalasia c/o chest pain in the middle of her chest similar to her usual chest pain when she has an exacerbation of achalasia symptoms. She c/o continuous nausea with dry heaving but no vomiting. There is no radiation of the pain. She rates the pain 8/10. In prior exacerbations of achalasia symptoms, her pain is improved with hydration and pain medication. - History of Current Complaint Chief Complaint: EDChestPainROMI Time Seen by Provider: 09/16/17 14:48 Stated Complaint: CHEST PAIN Hx Obtained From: Patient Onset/Duration: Still Present Timing: Constant Severity: Severe Current Severity: Severe Pain Intensity: 8 Associated Signs and Symptoms: Positive: Other: - CP, nausea, dry heaving; NEGATIVE: vomiting Aggravating Factor(s): Nothing Alleviating Factor(s): Nothing - Additional Pertinent History Primary Care Physician: [id number] - Allergy/Home Medications Allergies/Adverse Reactions: Allergies Allergy/AdvReac Type Severity Reaction Status Date / Time Albumin Human [From Botox] Allergy Severe Anaphylatic Verified 08/17/17 20:44 Shock Iodinated Contrast Media Allergy Severe Anaphylatic Verified 08/17/17 20:44 [IV CONTRAST DYE] Shock Iodine Allergy Severe Anaphylatic Verified 08/17/17 20:44 Shock NSAIDs Allergy Severe Hives Verified 08/17/17 20:44 OnabotulinumtoxinA Allergy Severe Anaphylatic Verified 08/17/17 20:44 [From Botox] Shock Penicillins Allergy Severe Anaphylatic Verified 08/17/17 20:44 Shock Adhesive Tape Allergy Itching Verified 08/17/17 20:44 Bee Venom Allergy Anaphylatic Verified 08/17/17 20:44 Shock Chlorhexidine Allergy Rash And Verified 08/17/17 20:44 [From Hibiclens] Itching Latex Allergy Hives Verified 08/17/17 20:44 Povidone Iodine Allergy Itching Verified 08/17/17 20:44 [From Betadine] Shellfish Allergy Allergy Anaphylatic Verified 08/17/17 20:44 Shock ENVIRONMENTAL/SEASONAL Allergy ITCHY,WATERY Uncoded 07/23/17 12:59 HAYFEVER EYES, SNEEZE, CONGESTION PMH/Surg Hx/FS Hx/Imm Hx Previously Healthy: No Endocrine/Hematology History: Reports: Hx Anticoagulant Therapy - plavix, Hx Anemia - possible Denies: Hx Diabetes, Hx Thyroid Disease Cardiovascular History: Reports: Hx Angina, Hx Coronary Artery Disease - 2 stents, Hx Deep Vein Thrombosis, Hx Embolism, Hx Hypercholesterolemia, Hx Hypertension - on meds, Hx Myocardial Infarction, Hx Syncope Denies: Hx Congestive Heart Failure, Hx Pacemaker/ICD, Hx Valvular Heart Disease, Other Cardiovascular Problems/Disorders Respiratory History: Reports: Hx Chronic Obstructive Pulmonary Disease (COPD) - Pt denies though providers have diagnosed it, Hx Pneumonia, Hx Pulmonary Embolism - 30 yrs ago, Hx Seasonal Allergies, Other Respiratory Problems/ Disorders - SMOKER Denies: Hx Asthma, Hx Sleep Apnea GI History: Reports: Hx Diverticulosis, Hx Gastroesophageal Reflux Disease, Hx Hiatal Hernia - 3 surgeries, Other GI Disorders - achalasia, Fernández's esophagus , Denies: Hx Ulcer History: Reports: Hx Kidney Infection, Hx Kidney Stones - LAST 12/2015- NO PROBLEMS SINCE PER PATIENT Denies: Hx Dialysis, Hx Renal Disease, Other Problems/Disorders Musculoskeletal History: Reports: Hx Arthritis - LEFT KNEE, BACK, Hx Back Problems - L1 fx, Other Musculoskeletal History - L1 fx Denies: Hx Osteoporosis Sensory History: Reports: Hx Cataracts - maryuri, Hx Contacts or Glasses - glasses Denies: Hx Hearing Aid Opthamlomology History: Reports: Hx Cataracts - maryuri, Hx Contacts or Glasses - glasses Neurological History: Reports: Hx Spinal Cord Injury - L1, Hx Transient Ischemic Attacks (TIA), Other Neuro Impairments/Disorders - POSSIBLE SMALL TIA'S - 3 yrs ago Psychiatric History: Reports: Hx Anxiety Denies: Hx Panic Disorder - Cancer History Cancer Type, Location and Year: RT BREAST CA, 2009 HAD A BILATERAL MASTECTOMY Hx Chemotherapy: No Hx Radiation Therapy: No - Surgical History Surgery Procedure, Year, and Place: RT LUMPECTOMY 02/2010, BILATERAL MASTECTOMY ,. 2001& 2002 CARDIAC STENT AT [facility] IN [place],. LEFT KNEE SURGERY X10,. BILATERAL SHOULDER SURGERY,. ESPOHOGEAL SURGERY,1996, 2015. failed breast implant on left. PARTIAL HYSTERECTOMY, 1976. APPENDIX A CHILD,. CHEST TUBE, 1996. ESOPHAGEAL DILATION. NISSIN FUNDOLPICATION multiple Hx Anesthesia Reactions: No - Immunization History Date of Tetanus Vaccine: up to date Date of Influenza Vaccine: 06/2016 Infectious Disease History: No Infectious Disease History: Denies: Hx Clostridium Difficile, Hx Hepatitis, Hx Human Immunodeficiency Virus (HIV), Hx of Known/Suspected MRSA, Hx Shingles, Hx Tuberculosis, Hx Known/ Suspected VRE, Hx Known/Suspected VRSA, History Other Infectious Disease, Traveled Outside the US in Last 30 Days - Family History Known Family History: Positive: Cardiac Disease - Father, 2 brothers - [place]. Mother - AFIB, Hypertension, Diabetes - Social History Alcohol Use: None Hx Substance Use: No Substance Use Type: Reports: None Substance Use Comment - Amount & Last Used: prescribed Hx Tobacco Use: Yes Smoking Status (MU): Heavy Every Day Tobacco Smoker Type: Cigarettes Amount Used/How Often: 10 CIGARETTES A WEEK X 45 YEARS Length of Time of Smoking/Using Tobacco: 40+ YEARS Have You Smoked in the Last Year: Yes Review of Systems Positive: Chest Pain Positive: Nausea, Other - Dry heaving. Negative: Vomiting All Other Systems Reviewed And Are Negative: Yes Physical Exam - Summary Physical Exam Summary: VITAL SIGNS: Reviewed. GENERAL: Patient is a well-developed and nourished female who is lying comfortable in the stretcher. Patient is not in any acute respiratory distress. HEAD AND FACE: No signs of trauma. No ecchymosis, hematomas or skull depressions. No sinus tenderness. EYES: PERRLA, EOMI x 2, No injected conjunctiva, no nystagmus. EARS: Hearing grossly intact. Ear canals and tympanic membranes are within normal limits. MOUTH: Oropharynx within normal limits. NECK: Supple, trachea is midline, no adenopathy, no JVD, no carotid bruit, no c- spine tenderness, neck with full ROM. CHEST: Symmetric, no tenderness at palpation LUNGS: Clear to auscultation bilaterally. No wheezing or crackles. CVS: Regular rate and rhythm, S1 and S2 present, no murmurs or gallops appreciated. ABDOMEN: Soft, non-tender. No signs of distention. No rebound no guarding, and no masses palpated. Bowel sounds are normal. EXTREMITIES: FROM in all major joints, no edema, no cyanosis or clubbing. NEURO: Alert and oriented x 3. No acute neurological deficits. Speech is normal and follows commands. SKIN: Dry and warm Triage Information Reviewed: Yes Vital Signs On Initial Exam: Initial Vitals Temp Pulse Resp BP Pulse Ox 98.3 F 85 20 178/129 98 09/16/17 14:25 09/16/17 14:25 09/16/17 14:25 09/16/17 14:25 09/16/17 14:25 Vital Signs Reviewed: Yes Procedures - Procedure Summary Procedure Summary: PROCEDURE NOTE: I inserted an EJ into the patient's left external jugular vein. Diagnostics - Vital Signs Vital Signs Temp Pulse Resp BP Pulse Ox 09/16/17 14:25 98.3 F 85 20 178/129 98 - Laboratory Result Diagrams: 09/16/17 15:25 09/16/17 15:25 Lab Statement: Any lab studies that have been ordered have been reviewed, and results considered in the medical decision making process. - Radiology CXR Xray Interpretation: No Acute Changes - HYPERINFLATION. NO ACTIVE DISEASE. ED physician has reviewed this report and agrees. Radiology Interpretation Completed By: Radiologist - EKG 14:43 Cardiac Rate: NL EKG Rhythm: Sinus Rhythm EKG Interpretation: [address] elevations. Similar to previous EKG on . GIGU Course/Dx - Course Assessment/Plan: The pt is a 62 y/o F with a Hx of achalasia c/o chest pain in the middle of her chest similar to her usual chest pain when she has an exacerbation of achalasia symptoms. She c/o continuous nausea with dry heaving but no vomiting. There is no radiation of the pain. She rates the pain 8/10. In prior exacerbations of achalasia symptoms, her pain is improved with hydration and pain medication. Test results are without significant abnormalities except sodium 129. The patient was given IV fluids, Zofran, and morphine for the pain, and the patients symptoms improved. I do not believe the patient had acute coronary syndrome; instead, I suspect esophageal spasms. Since the patients symptoms have improved, she will be discharged home with follow up by primary care. The patient is hemodynamically stable and alert and oriented x3. - Diagnoses Provider Diagnoses: Esophageal spasm Discharge - Discharge Plan Condition: Stable Disposition: HOME Patient Education Materials: Esophageal Spasm (ED) Referrals: Trish Combs MD [Primary Care Provider] - 3 Days Additional Instructions: Follow up with your primary care provider in 3 days. Return to the emergency department for any new or worsening symptoms. The documentation as recorded by the Dora vyas Thomas accurately reflects the service I personally performed and the decisions made by , Polo Carrion MD.
== END 2017-09-16 19:47 | disposition home or self-care (01) ==
LOC: ED 14:24
DX: K22.4 Dyskinesia of esophagus (principal); R11.0 Nausea; I25.119 Atherosclerotic heart disease of native coronary artery with unspecified angina pectoris; I10 Essential (primary) hypertension; Z95.5 Presence of coronary angioplasty implant and graft; Z86.718 Personal history of other venous thrombosis and embolism; Z79.01 Long term (current) use of anticoagulants; E78.00 Pure hypercholesterolemia, unspecified; J44.9 Chronic obstructive pulmonary disease, unspecified; K21.9 Gastro-esophageal reflux disease without esophagitis; K57.90 Diverticulosis of intestine, part unspecified, without perforation or abscess without bleeding; Z87.442 Personal history of urinary calculi; F41.9 Anxiety disorder, unspecified; Z85.3 Personal history of malignant neoplasm of breast; Z88.6 Allergy status to analgesic agent; Z91.030 Bee allergy status; Z91.041 Radiographic dye allergy status; Z91.040 Latex allergy status; Z88.0 Allergy status to penicillin; Z91.013 Allergy to seafood; Z88.8 Allergy status to other drugs, medicaments and biological substances; Z91.048 Other nonmedicinal substance allergy status; F17.210 Nicotine dependence, cigarettes, uncomplicated
CPT/HCPCS: 36415; 71020; 80053; 82550; 82553; 83880; 84443; 84484; 85025; 85060; 93005; 96361; 96374; 96375; 96376; 99284; A9270-GY; J2270; J2405

== ENCOUNTER 2017-09-23 13:38 | Emergency (ER) | payer OTHER ==
[2017-09-23] MEDS ORDERED: NS 0.9% 1000 ML* 2,000 ML IV ONE (17:14)
[2017-09-23] MEDS ORDERED: Pantoprazole IV* 40 MG IV ONE (17:14)
[2017-09-23] MEDS ORDERED: Ondansetron INJ* 2 MG/ML VIAL IV ONE (17:14)
--- NOTE | 2017-09-23 17:23 | ED ---
HPI Chest Pain - History of Current Complaint Chief Complaint: EDAbdPain Time Seen by Provider: 09/23/17 16:58 Pain Intensity: 9 - Additional Pertinent History Primary Care Physician: [id number] - Allergy/Home Medications Allergies/Adverse Reactions: Allergies Allergy/AdvReac Type Severity Reaction Status Date / Time Albumin Human [From Botox] Allergy Severe Anaphylatic Verified 08/17/17 20:44 Shock Iodinated Contrast Media Allergy Severe Anaphylatic Verified 08/17/17 20:44 [IV CONTRAST DYE] Shock Iodine Allergy Severe Anaphylatic Verified 08/17/17 20:44 Shock NSAIDs Allergy Severe Hives Verified 08/17/17 20:44 OnabotulinumtoxinA Allergy Severe Anaphylatic Verified 08/17/17 20:44 [From Botox] Shock Penicillins Allergy Severe Anaphylatic Verified 08/17/17 20:44 Shock Adhesive Tape Allergy Itching Verified 08/17/17 20:44 Bee Venom Allergy Anaphylatic Verified 08/17/17 20:44 Shock Chlorhexidine Allergy Rash And Verified 08/17/17 20:44 [From Hibiclens] Itching Latex Allergy Hives Verified 08/17/17 20:44 Povidone Iodine Allergy Itching Verified 08/17/17 20:44 [From Betadine] Shellfish Allergy Allergy Anaphylatic Verified 08/17/17 20:44 Shock ENVIRONMENTAL/SEASONAL Allergy ITCHY,WATERY Uncoded 07/23/17 12:59 HAYFEVER EYES, SNEEZE, CONGESTION PMH/Surg Hx/FS Hx/Imm Hx Endocrine/Hematology History: Reports: Hx Anticoagulant Therapy - plavix, Hx Anemia - possible Denies: Hx Diabetes, Hx Thyroid Disease Cardiovascular History: Reports: Hx Angina, Hx Coronary Artery Disease - 2 stents, Hx Deep Vein Thrombosis, Hx Embolism, Hx Hypercholesterolemia, Hx Hypertension - on meds, Hx Myocardial Infarction, Hx Syncope Denies: Hx Congestive Heart Failure, Hx Pacemaker/ICD, Hx Valvular Heart Disease, Other Cardiovascular Problems/Disorders Respiratory History: Reports: Hx Chronic Obstructive Pulmonary Disease (COPD) - Pt denies though providers have diagnosed it, Hx Pneumonia, Hx Pulmonary Embolism - 30 yrs ago, Hx Seasonal Allergies, Other Respiratory Problems/ Disorders - SMOKER Denies: Hx Asthma, Hx Sleep Apnea GI History: Reports: Hx Diverticulosis, Hx Gastroesophageal Reflux Disease, Hx Hiatal Hernia - 3 surgeries, Other GI Disorders - achalasia, Fernández's esophagus , Denies: Hx Ulcer History: Reports: Hx Kidney Infection, Hx Kidney Stones - LAST 12/2015- NO PROBLEMS SINCE PER PATIENT Denies: Hx Dialysis, Hx Renal Disease, Other Problems/Disorders Musculoskeletal History: Reports: Hx Arthritis - LEFT KNEE, BACK, Hx Back Problems - L1 fx, Other Musculoskeletal History - L1 fx Denies: Hx Osteoporosis Sensory History: Reports: Hx Cataracts - maryuri, Hx Contacts or Glasses - glasses Denies: Hx Hearing Aid Opthamlomology History: Reports: Hx Cataracts - maryuri, Hx Contacts or Glasses - glasses Neurological History: Reports: Hx Spinal Cord Injury - L1, Hx Transient Ischemic Attacks (TIA), Other Neuro Impairments/Disorders - POSSIBLE SMALL TIA'S - 3 yrs ago Psychiatric History: Reports: Hx Anxiety Denies: Hx Panic Disorder - Cancer History Cancer Type, Location and Year: RT BREAST CA, 2009 HAD A BILATERAL MASTECTOMY Hx Chemotherapy: No Hx Radiation Therapy: No - Surgical History Surgery Procedure, Year, and Place: RT LUMPECTOMY 02/2010, BILATERAL MASTECTOMY ,. 2001& 2002 CARDIAC STENT AT [facility] IN [place],. LEFT KNEE SURGERY X10,. BILATERAL SHOULDER SURGERY,. ESPOHOGEAL SURGERY,1996, 2014. failed breast implant on left. PARTIAL HYSTERECTOMY, 1976. APPENDIX A CHILD,. CHEST TUBE, 1996. ESOPHAGEAL DILATION. NISSIN FUNDOLPICATION multiple Hx Anesthesia Reactions: No - Immunization History Date of Tetanus Vaccine: up to date Date of Influenza Vaccine: 06/2016 Infectious Disease History: No Infectious Disease History: Denies: Hx Clostridium Difficile, Hx Hepatitis, Hx Human Immunodeficiency Virus (HIV), Hx of Known/Suspected MRSA, Hx Shingles, Hx Tuberculosis, Hx Known/ Suspected VRE, Hx Known/Suspected VRSA, History Other Infectious Disease, Traveled Outside the [place] in Last 30 Days - Family History Known Family History: Positive: None, Cardiac Disease - Father, 2 brothers - [place]. Mother - AFIB, Hypertension, Diabetes - Social History Alcohol Use: None Hx Substance Use: No Substance Use Type: Reports: Prescribed Substance Use Comment - Amount & Last Used: prescribed Hx Tobacco Use: Yes Smoking Status (MU): Heavy Every Day Tobacco Smoker Type: Cigarettes Amount Used/How Often: 10 CIGARETTES A WEEK X 45 YEARS Length of Time of Smoking/Using Tobacco: 40+ YEARS Have You Smoked in the Last Year: Yes Physical Exam Vital Signs On Initial Exam: Initial Vitals Temp Pulse Resp BP Pulse Ox 97.3 F 96 17 201/119 99 09/23/17 13:47 09/23/17 13:47 09/23/17 13:47 09/23/17 13:47 09/23/17 13:47 - [place] Coma Scale Coma Scale Total: 15 Diagnostics - Vital Signs Vital Signs Temp Pulse Resp BP Pulse Ox 09/23/17 17:00 70 16 176/107 94 09/23/17 16:50 68 17 193/104 96 09/23/17 16:44 75 16 98 09/23/17 13:47 97.3 F 96 17 201/119 99 - Laboratory Lab Statement: Any lab studies that have been ordered have been reviewed, and results considered in the medical decision making process. Discharge - Discharge Plan Referrals: Trish Combs MD [Primary Care Provider] -
--- NOTE | 2017-09-23 17:30 | ED ---
HPI Chest Pain - HPI Summary HPI Summary: 62 female presents to ED after being instructed to by PCPwith complaints of chest pain in the middle of her chest that is her usual chest pain when she has an exacerbation of achalasia symptoms. Patient has history of achalasia and was in ED 1 week ago with the same complaints. States she has been unable to eat/ drink, concern for dehydration, which is why PCP sent her along with pain relief. Has been taking her prescribed morphine, took one this morning however did not have relief. She complaints of continuous retching/dry heaving and nausea but not vomiting. Had surgery previously so that she is unable to vomit. No radiation of pain, SOB or difficulty breathing. Pain is 8/10 at its worse. Prior exacerbations of achalasia are improved with hydration and pain medication. PMHx include HTN, achalasia/GI issues and CAD with 2 previous ME's. - History of Current Complaint Chief Complaint: EDAbdPain Time Seen by Provider: 09/23/17 16:58 Hx Obtained From: Patient Onset/Duration: Started Days Ago, Still Present Timing: Constant Initial Severity: Severe Current Severity: Severe Pain Intensity: 8 Pain Scale Used: 0-10 Numeric Chest Pain Location: Mid Sternal Chest Pain Radiates: No Character: Sharp/Stabbing, Tightness, Other: - spasming Aggravating Factor(s): Nothing Alleviating Factor(s): Nothing Associated Signs and Symptoms: Positive: Chest Pain, Nausea, Other: - retching - Additional Pertinent History Primary Care Physician: [id number] - Allergy/Home Medications Allergies/Adverse Reactions: Allergies Allergy/AdvReac Type Severity Reaction Status Date / Time Albumin Human [From Botox] Allergy Severe Anaphylatic Verified 08/17/17 20:44 Shock Iodinated Contrast Media Allergy Severe Anaphylatic Verified 08/17/17 20:44 [IV CONTRAST DYE] Shock Iodine Allergy Severe Anaphylatic Verified 08/17/17 20:44 Shock NSAIDs Allergy Severe Hives Verified 08/17/17 20:44 OnabotulinumtoxinA Allergy Severe Anaphylatic Verified 08/17/17 20:44 [From Botox] Shock Penicillins Allergy Severe Anaphylatic Verified 08/17/17 20:44 Shock Adhesive Tape Allergy Itching Verified 08/17/17 20:44 Bee Venom Allergy Anaphylatic Verified 08/17/17 20:44 Shock Chlorhexidine Allergy Rash And Verified 08/17/17 20:44 [From Hibiclens] Itching Latex Allergy Hives Verified 08/17/17 20:44 Povidone Iodine Allergy Itching Verified 08/17/17 20:44 [From Betadine] Shellfish Allergy Allergy Anaphylatic Verified 08/17/17 20:44 Shock ENVIRONMENTAL/SEASONAL Allergy ITCHY,WATERY Uncoded 07/23/17 12:59 HAYFEVER EYES, SNEEZE, CONGESTION PMH/Surg Hx/FS Hx/Imm Hx Endocrine/Hematology History: Reports: Hx Anticoagulant Therapy - plavix, Hx Anemia - possible Denies: Hx Diabetes, Hx Thyroid Disease Cardiovascular History: Reports: Hx Angina, Hx Coronary Artery Disease - 2 stents, Hx Deep Vein Thrombosis, Hx Embolism, Hx Hypercholesterolemia, Hx Hypertension - on meds, Hx Myocardial Infarction, Hx Syncope Denies: Hx Congestive Heart Failure, Hx Pacemaker/ICD, Hx Valvular Heart Disease, Other Cardiovascular Problems/Disorders Respiratory History: Reports: Hx Chronic Obstructive Pulmonary Disease (COPD) - Pt denies though providers have diagnosed it, Hx Pneumonia, Hx Pulmonary Embolism - 30 yrs ago, Hx Seasonal Allergies, Other Respiratory Problems/ Disorders - SMOKER Denies: Hx Asthma, Hx Sleep Apnea GI History: Reports: Hx Diverticulosis, Hx Gastroesophageal Reflux Disease, Hx Hiatal Hernia - 3 surgeries, Other GI Disorders - achalasia, Fernández's esophagus , Denies: Hx Ulcer History: Reports: Hx Kidney Infection, Hx Kidney Stones - LAST 12/2015- NO PROBLEMS SINCE PER PATIENT Denies: Hx Dialysis, Hx Renal Disease, Other Problems/Disorders Musculoskeletal History: Reports: Hx Arthritis - LEFT KNEE, BACK, Hx Back Problems - L1 fx, Other Musculoskeletal History - L1 fx Denies: Hx Osteoporosis Sensory History: Reports: Hx Cataracts - maryuri, Hx Contacts or Glasses - glasses Denies: Hx Hearing Aid Opthamlomology History: Reports: Hx Cataracts - maryuri, Hx Contacts or Glasses - glasses Neurological History: Reports: Hx Spinal Cord Injury - L1, Hx Transient Ischemic Attacks (TIA), Other Neuro Impairments/Disorders - POSSIBLE SMALL TIA'S - 3 yrs ago Psychiatric History: Reports: Hx Anxiety Denies: Hx Panic Disorder - Cancer History Cancer Type, Location and Year: RT BREAST CA, 2009 HAD A BILATERAL MASTECTOMY Hx Chemotherapy: No Hx Radiation Therapy: No - Surgical History Surgery Procedure, Year, and Place: RT LUMPECTOMY 02/2010, BILATERAL MASTECTOMY ,. 2001& 2002 CARDIAC STENT AT [facility] IN [place],. LEFT KNEE SURGERY X10,. BILATERAL SHOULDER SURGERY,. ESPOHOGEAL SURGERY,1996, 2014. failed breast implant on left. PARTIAL HYSTERECTOMY, 1976. APPENDIX A CHILD,. CHEST TUBE, 1996. ESOPHAGEAL DILATION. NISSIN FUNDOLPICATION multiple Hx Anesthesia Reactions: No - Immunization History Date of Tetanus Vaccine: up to date Date of Influenza Vaccine: 06/2016 Infectious Disease History: No Infectious Disease History: Denies: Hx Clostridium Difficile, Hx Hepatitis, Hx Human Immunodeficiency Virus (HIV), Hx of Known/Suspected MRSA, Hx Shingles, Hx Tuberculosis, Hx Known/ Suspected VRE, Hx Known/Suspected VRSA, History Other Infectious Disease, Traveled Outside the [place] in Last 30 Days - Family History Known Family History: Positive: None, Cardiac Disease - Father, 2 brothers - ME. Mother - AFIB, Hypertension, Diabetes - Social History Alcohol Use: None Hx Substance Use: No Substance Use Type: Reports: Prescribed Substance Use Comment - Amount & Last Used: prescribed Hx Tobacco Use: Yes Smoking Status (MU): Heavy Every Day Tobacco Smoker Type: Cigarettes Amount Used/How Often: 10 CIGARETTES A WEEK X 45 YEARS Length of Time of Smoking/Using Tobacco: 40+ YEARS Have You Smoked in the Last Year: Yes Review of Systems Constitutional: Negative Positive: Chest Pain Respiratory: Negative Positive: Nausea, Other - dry heaving All Other Systems Reviewed And Are Negative: Yes Physical Exam Triage Information Reviewed: Yes Vital Signs On Initial Exam: Initial Vitals Temp Pulse Resp BP Pulse Ox 97.3 F 96 17 201/119 99 09/23/17 13:47 09/23/17 13:47 09/23/17 13:47 09/23/17 13:47 09/23/17 13:47 elevated BP noted, improved during stay to 176/96, patient does have HTN however is in pain, compared to previous visits and is similar. take HTN medication and follow up with PCP to recheck Vital Signs Reviewed: Yes Appearance: Positive: Well-Appearing, Well-Nourished, Pain Distress - moderate Skin: Positive: Warm, Skin Color Reflects Adequate Perfusion, Dry, Cold. Negative: Cyanosis @, Pale, Geovanni Tracts, Erythema @ Head/Face: Positive: Normal Head/Face Inspection Eyes: Positive: Conjunctiva Clear ENT: Positive: Hearing grossly normal, Pharynx normal Neck: Positive: Supple, Nontender Respiratory/Lung Sounds: Positive: Clear to Auscultation, Breath Sounds Present. Negative: Rales, Rhonchi, Wheezes Cardiovascular: Positive: Normal, RRR, Pulses are Symmetrical in both Upper and Lower Extremities, Other - non reproducible. no JVD, no carotid bruit, trachea midline. Negative: Murmur, Rub Abdomen Description: Positive: Nontender, Soft Bowel Sounds: Positive: Present Musculoskeletal: Positive: Normal, Strength/ROM Intact Neurological: Positive: Normal, Sensory/Motor Intact, Alert, Oriented to Person Place, Time - [place] Coma Scale Coma Scale Total: 15 Diagnostics - Vital Signs Vital Signs Temp Pulse Resp BP Pulse Ox 09/23/17 17:00 70 16 176/107 94 09/23/17 16:50 68 17 193/104 96 09/23/17 16:44 75 16 98 09/23/17 13:47 97.3 F 96 17 201/119 99 - Laboratory Result Diagrams: 09/23/17 17:25 09/23/17 17:25 Lab Statement: Any lab studies that have been ordered have been reviewed, and results considered in the medical decision making process. - EKG EKG ST Segment: Normal Ectopy: None EKG Interpretation: NSR EKG Comparison: No Significant Change Re-Evaluation - Re-Evaluation First Eval Re-Evaluation Time: 18:45 Change: Improved - had some relief pain and nausea 5/10. will give another dose and be d/c Second Eval Re-Evaluation Time: 19:35 Change: Improved - feeling much better, ready to be d/c Chest Pain Course/Dx - Course Course Of Treatment: Hx of achalasia c/o chest pain in the middle of her chest similar to her usual chest pain when she has an exacerbation of achalasia symptoms. Basic labs, tropinin and EKG obtained. Unremarkable and without significant abnormalities other than slightly decreased sodium and chloride. given IV fluids, Zofran, and morphine for the pain, and the patients symptoms improved. I do not believe the patient had acute coronary syndrome; instead, I suspect esophageal spasms. Since the patients symptoms have improved, she will be discharged home with follow up by primary care. The patient is hemodynamically stable and alert and oriented x3. patient agrees and understands. has preventative medications at home. was hydrated while in ED. has follow up with GI specialist for surgicial consult. No other concerns at this time. Aware of worsening signs and symptoms to watch out for. Elevated BP noted, did improive once pain controlled, is already diagnosed and medicated for HTN, follow up with PCP for recheck. compared to previous BP and was similar range. - Chest Pain Differential Diagnosis/HQI/PQRI: GI Disease, Other: - achalasia exacerbation, esophageal spasm - Diagnoses Provider Diagnoses: Achalasia, esophageal, Esophageal spasm Discharge - Discharge Plan Condition: Stable Disposition: HOME Patient Education Materials: Esophageal Spasm (ED) Referrals: Trish Combs MD [Primary Care Provider] - Additional Instructions: Continue taking at home medications as prescribed. Follow up with PCP in 3 days. Be sure to drink plenty of fluids. If unable please seek medical attention. Any new or worsening symptoms please return to ED.
[2017-09-23] MEDS: Morphine INJ* 4 MG/ML 1 ML CARPUJECT IV ONE ×2 (17:37→19:17)
[2017-09-23 17:38] LABS: Hematocrit 44 % (35-47); Mean Corpuscular HGB Conc 34 g/dl (31-36); Mean Corpuscular Hemoglobin 29 pg (27-31); Mean Corpuscular Volume 86 fL (80-97); Mean Platelet Volume 8 um3 (7.4-10.4); Red Blood Count 5.16 10^6/ul (4.0-5.4); Red Cell Distribution Width 14 % (10.5-15); White Blood Count 9.8 10^3/ul (3.5-10.8)
[2017-09-23 17:53] LABS: BUN/Creatinine Ratio 28.6 (8-20); EGFR African American 141.1 (>60); EGFR Non-African American 109.7 (>60); Globulin 3.4 g/dL (2-4); Potassium 3.6 mmol/L (3.5-5.0); Total Bilirubin 0.7 mg/dL (0.2-1.0); Total Protein 7.4 g/dL (6.4-8.9)
[2017-09-23 17:55] LABS: Troponin I 0.01 ng/mL (<0.04)
[2017-09-23] MEDS ORDERED: Morphine INJ* 2 MG/ML 1 ML CARPUJECT IV ONE (19:07)
[2017-09-23] MEDS ORDERED: Morphine INJ* 4 MG/ML 1 ML CARPUJECT ONE (19:14)
[2017-09-23 19:51] VITALS: BP 176/96
== END 2017-09-23 19:50 | disposition home or self-care (01) ==
LOC: ED 13:38
DX: K22.0 Achalasia of cardia (principal); K22.4 Dyskinesia of esophagus; R07.9 Chest pain, unspecified; K22.9 Disease of esophagus, unspecified; R11.0 Nausea; F17.210 Nicotine dependence, cigarettes, uncomplicated
CPT/HCPCS: 36415; 80053; 82553; 83605; 83880; 84484; 85025; 93005; 96374; 96375; 99284; J2270; J2405

== ENCOUNTER 2017-10-25 10:55 | Observation (INO) | payer OTHER ==
--- OUTSIDE RECORDS SUMMARY | 2017-10-25 11:13 | XMS REPORT ---
:1955 External Reference #:[id number] Author Organization [facility] Address [address] [address] Phone [phone] Care Team Providers Name Role Phone Trish Combs MD Primary Care Physician Unavailable Payers Type Date Identification Numbers Payment Provider Subscriber Commercial Effective: Policy Number: [id number] Total Care/Gee Prasad 2014 [facility] Group Number: [id number] [address] [address] PayID: [id number] [place] [address] Commercial Expires: 2008 Policy Number: Total Care/Flynn ALG Isabel Prasad [id number] [facility] PayID: [id number] [address] [address] [place] [address] Problems Date Description Provider Status Onset: 12/02/2013 Chest pain Rock Dom[facility]nguez M.D., [facility] Onset: 09/03/2014 Syncope and collapse Rock Domínguez M.D., Active [facility], [place]AMAL[place]EL Onset: 04/05/2015 Arthralgia of the lower leg Benny Celeste M.D. Active Onset: 04/05/2015 Derangement of knee Benny Celeste M.D. Active Onset: 05/09/2015 Coronary arteriosclerosis Rock Domínguez M.D., [facility] Onset: 11/24/2015 Achalasia of esophagus Benny Celeste M.D. Active Onset: 11/24/2015 Localized, primary osteoarthritis Benny Celeste M.D. Active Onset: 01/02/2016 Athscl heart disease of [place] Rock Domínguez M.D., Active art w ot ang pctrs [facility], [facility] Onset: 02/14/2016 Essential hypertension Rokc Domínguez M.D., Active [facility], [facility] Onset: 03/29/2016 Arthroplasty of knee Benny Celeste M.D. Active Family History Date Family Member(s) Problem(s) Comments General Heart Disease General Cancer General Diabetes Type I Social History Type Date Description Comments Marital Status Lives With Brother Occupation Retired Cigarette Use Patient is a current cigarette smoker, smokes some days ETOH Use Occasionally consumes alcohol Smoking Patient is a current smoker, smokes some 2 cigs weekly days Recreational Drug Use Never Used Drugs Daily Caffeine Consumes on average 3 cups of hot tea per day Exercise Type/Frequency Exercises regularly General Hx Text Allergies, Adverse Reactions, Alerts Date Description Reaction Status Severity Comments 11/23/2013 Shellfish-derived Products Anaphylaxis active 11/23/2013 Botox Anaphylaxis active 11/23/2013 Bee Sting Anaphylaxis active 11/23/2013 Adhesive Tape Hives, Blisters active 11/23/2013 Augmentin "not sure" active 11/23/2013 Contrast Dye Itching active 11/23/2013 NSAIDs Stomach issues active 11/23/2013 Penicillins active 11/23/2013 Betadine Rash active 12/08/2015 Hibiclens Urticaria active Medications Medication Date Status Form Strength Qnty SIG Indications Ordering Provider Zoernesto Odt 03/23 Active Tablets 4mg 30tab one tab by Dispers s mouth Booker, every 8 M.D. hours as needed for nausea Losartan 02/13 Active Tablets 100mg 90tab 1 by mouth Rock Potassium s every day Everardo Domínguez M.D., [facility], [facility] Benadryl Allergy 12/08 Active Tablets 25mg 30tab 1 tablet Stephany s by mouth Alta, three M.D. times a day, as needed Nitrostat Active Tablets Sub 0.4mg 25tab 1 tab Rock / s dissolve Everardo under Sang, tongue as M.D., needed FAC, chest pain [facility] Simvastatin Active Tablets 20mg 30tab 2 po qhs Unknown /0000 s Carisoprodol Active Tablets 350mg 90tab 1 tab bid Unknown / s for muscle spasms/ach alasia Omeprazole Active Capsules DR 40mg 90cap 1 cap po Unknown / s twice daily Epipen 2-Godwin Active Solution 0.3mg/0.3 use as Auto-Inject ML directed Azelastine HCL Active Solution 0.05% instill 1 Unknown / drop into affected eye 2 times per day for inflammati on of eyelid lining due to allergy prn Clopidogrel Active Tablets 75mg 1 by mouth Unknown Bisulfate every day (On Hold since 02/09/16) Cyanocobalamin Active Solution 1000mcg/M 1.0 cubic Unknown / L centimeter s intramuscu lar every month Vitamin D Active Capsules [id number] 1 cap by Unknown (Ergocalciferol) /0000 mouth per week x 8 weeks Proair HFA Active Aerosol 108(90Bas 2 puffs by Unknown / e) mouth mcg/Act every 4 hours as needed for wheezing Morphine Sulfate Active Tablets 15mg take 1 tab Unknown every 4hours as needed for pain. Morphine Sulfate Active Tablets ER 60mg 1 tab by Unknown ER /0000 mouth every 8 hours as needed Jevity 1.5 P[place] Active Liquid 5 can/day Unknown Amlodipine Active Tablets 10mg 1 by mouth Unknown Besylate every day Prochlorperazine Active Tablets 10mg twice Unknown Maleate /0000 daily as needed N/V Metoprolol Active Tablets ER 50mg 1/2 tab by Unknown Succinate ER /0000 24HR mouth every day Baclofen Active Tablets 10mg Unknown Neurontin 03/29 Hx Capsules 300mg 30cap Take One s Capsule By Booker, Mouth At M.D. Bedtime [place] 03/23 Hx Tablets 5-325mg 60tab take 1-2 s tabs every Booker, - 4-6 hours M.D. 04/27 as needed for pain Lovenox 03/09 Hx Solution 40mg/0.4M 10uni 1 L ts injection savannah Pearl MD everyday following surgery Percocet 03/09 Hx Tablets 5-325mg 80tab 1-2 by s mouth Booker, - every 4 to M.D. 03/23 6 hours as /2016 needed pain Toprol XL 01/12 Hx Tablets ER 50mg 150ta 1 and one I25.118 Rock 24HR bs half Mcgee - tablets Sang, 01/12 (75 mg) by M.D., mouth FACC, every day FASNC Toprol XL 01/12 Hx Tablets ER 100mg 90tab 1 by mouth I25.118 Rock 24HR s every day Everardo in morning Ramon Domínguez, FAC, FASNC Toprol XL 01/01 Hx Tablets ER 50mg 90tab 1 by mouth I25.118 Rock 24HR s every day Everardo - Sang, 01/12 Ramon, FAC, FASNC Ultram 11/24 Hx Tablets 50mg 30tab 1-2 by s mouth Booker, - every M.D. 04/27 night at bedtime as needed, take with 2 Extra Strength Tylenol First-Lansoprazol Hx Suspension 3mg/ml 10 ML po Unknown e /0000 on empty - stomach, 09/02 prn Oxycodone HCL Hx Solution 5mg/5ML 10 mL po Unknown /0000 6h prn - severe 03/08 pain, more than 2 doses per day Aspirin Hx Tablets 81mg 100ta 1 po qd Unknown /0000 bs - 03/08 Losartan Hx Tablets 25mg 90tab 1 daily Unknown Potassium /0000 s - 02/13 Metoprolol Hx Tablets 25mg 60tab 1 tab bid Unknown Tartrate /0000 s - 05/07 Ondansetron Odt Hx Tablets 4mg 30tab 1 three Unknown /0000 Dispers s times a - day as 03/08 needed for nausea Diphenhydramine Hx Capsules 25mg 100ca prn Unknown HCL /0000 ps - 07/30 Potassium Hx Liquid 10Meq 15 meq Unknown Chloride /0000 daily - 03/21 06 00 Hx Tablets 5mg 30tab 1 by mouth Unknown /0000 s every day - 03/21 Hydrocodone-Aceta Hx Tablets 5-325mg 1 by mouth Unknown minophen /0000 twice - daily prn 05/07 compress n fx Proair HFA Hx Aerosol 108(90Bas 2 puffs by Unknown /0000 e) mouth - mcg/Act every 4 11/23 hours needed Calcitonin 00 Hx Solution 200Unit/A spray one Unknown ([place]) /0000 ct spray - intranasal 11/15 ly every day alternatin g nostrils Montelukast Hx Tablets 10mg 1 by mouth Unknown Sodium /0000 at bedtime - 11/23 Ergocalciferol Hx Capsules [id number] 1 cap by Blegen, /0000 mouth Trish - twice 11/23 Guaze Pads Hx 4x4's, use Unknown /0000 as - directed 03/21 for abd wound Tegaderm Film Hx Misc (Dressing 4"x4 1/2" Unknown Tranparent /0000 ) use as Dressing/Frame - directed Style 11/15 to abd wound 0601 Hx Packet [id number] 17 gm Unknown /0000 every day - as needed 03/21 Diazepam Hx Tablets 5mg 1 tablet Blegen, /0000 po daily Trish, - as needed 11/15 Levocetirizine Hx Tablets 5mg 1 tablet Blegen, Dihydrochloride /0000 po daily Stanislav Chambers MD 05/07 Metoprolol Hx Tablets ER 25mg take 1 Blegen, Succinate ER /0000 24HR tablet by Trish - mouth once 07/02 Ondansetron Hx Tablets 8mg take 1 Unknown /0000 Dispers under - tongue q8 03/02 hours needed nausea Aspirin Hx Tablets 81mg 1 by mouth Unknown /0000 every day - (started 03/0202/10/16) Erythromycin Base Hx Tablets 400mg 1 by mouth Unknown /0000 4 times a day as directed Medications Administered in Office Medication Date Status Form Strength Qnty SIG Indications Ordering Provider Inj, 12/16/ Administered Injection Eugene Christopher Regadenoson, 0.1 2015 MG Ramon Talley Inj, 12/16/ Administered Injection Marline Regadenoson, 0.1 2015 CRISTINA Henriquez MG Technetium TC 12/16/ Administered Injection Eugene Christopher 99M Tetrofosmin, 2016 Brand, Per Unit Dose Up M.D. To 40 Millicuries Technetium TC 12/16/ Administered Injection Marline 99M Tetrofosmin, 2015 CRISTINA Henriquez Per Unit Dose Up To 40 Millicuries Inj, 08/02/ Administered Injection Rock Mcgee Regadenoson, 0.1 2013 MG Zahra Domínguez.D., FACC, FASNC Aminophylline 08/02/ Administered Injection Rock Mcgee 2013 Ramon Domínguez, FACC, FASNC Technetium TC 08/02/ Administered Injection Rock Mcgee 99M Tetrofosmin, 2013 Domínguez, Per Unit Dose Up M.D., To 40 FACC, Millicuries FASNC Inj, 11/30/ Administered Injection Rock Mcgee Regadenoson, 0.1 2013 MG Sang M.D., FACC, FASNC Technetium TC 11/30/ Administered Injection Rock Mcgee 99M Tetrofosmin, 2013 Sang, Per Unit Dose Up M.D., To 40 FACC, Millicuries FASNC Vital Signs Date Vital Result Comment 10/24/2017 Height 67 inches 5'7" Weight 107.00 lb Heart Rate 62 /min BP Systolic 138 mmHg BP Diastolic 88 mmHg Respiratory Rate 16 /min Body Temperature 98.4 F BMI (Body Mass Index) 16.8 kg/m2 05/17/2016 Height 65 inches 5'5" Weight 121.00 lb Pain Level 6 BMI (Body Mass Index) 20.1 kg/m2 03/29/2016 Height 65 inches 5'5" Weight 121.00 lb Heart Rate 68 /min BP Systolic Sitting 122 mmHg BP Diastolic Sitting 60 mmHg Respiratory Rate 16 /min Body Temperature 98.7 F Pain Level 8 BMI (Body Mass Index) 20.1 kg/m2 02/29/2016 Height 65 inches 5'5" Weight 130.00 lb Heart Rate 64 /min BP Systolic Sitting 108 mmHg BP Diastolic Sitting 70 mmHg Respiratory Rate 16 /min Pain Level 5 BMI (Body Mass Index) 21.6 kg/m2 02/14/2016 Height 65 inches 5'5" Weight 129.00 lb with shoes Heart Rate 80 /min BP Systolic Sitting 150 mmHg Ra reg cuff BP Diastolic Sitting 100 mmHg Ra reg cuff BP Systolic Standing 144 mmHg Ra reg cuff BP Diastolic Standing 98 mmHg Ra reg cuff BP Systolic Recheck 160 mmHg Ra reg cuff BP Diastolic Recheck 110 mmHg Ra reg cuff Respiratory Rate 17 /min BMI (Body Mass Index) 21.5 kg/m2 01/13/2016 Height 65 inches 5'5" Weight 130.50 lb no shoes Heart Rate 70 /min BP Systolic 173 mmHg home monitor BP Diastolic 115 mmHg home monitor BP Systolic Sitting 164 mmHg LA reg cuff BP Diastolic Sitting 102 mmHg LA reg cuff BP Systolic Standing 158 mmHg LA reg cuff BP Diastolic Standing 100 mmHg LA reg cuff BP Systolic Recheck 172 mmHg Ra reg cuff MD BP Diastolic Recheck 102 mmHg Ra reg cuff MD Respiratory Rate 16 /min BMI (Body Mass Index) 21.7 kg/m2 Ejection Fraction >70% 12/12/15 01/11/2016 Height 65 inches 5'5" Weight 130.00 lb Heart Rate 72 /min BP Systolic Sitting 146 mmHg BP Diastolic Sitting 90 mmHg Respiratory Rate 16 /min BMI (Body Mass Index) 21.6 kg/m2 01/02/2016 Height 65 inches 5'5" Weight 130.00 lb w/o shoes Heart Rate 80 /min reg BP Systolic 160 mmHg Lue, reg cuff BP Diastolic 106 mmHg Lue, reg cuff BP Systolic Sitting 160 mmHg Rue, reg cuff BP Diastolic Sitting 98 mmHg Rue, reg cuff BP Systolic Standing 166 mmHg Rue BP Diastolic Standing 110 mmHg Rue BP Systolic Recheck 160 mmHg BP Diastolic Recheck 106 mmHg Respiratory Rate 16 /min BMI (Body Mass Index) 21.6 kg/m2 Ejection Fraction > 70% As of 12/12/15 echo 11/24/2015 Height 65 inches 5'5" Weight 110.00 lb Pain Level 6 BMI (Body Mass Index) 18.3 kg/m2 05/09/2015 Height 65 inches 5'5" Weight 128.31 lb without shoes Heart Rate 70 /min BP Systolic Sitting 154 mmHg LA reg cuff BP Diastolic Sitting 96 mmHg LA reg cuff BP Systolic Standing 150 mmHg LA reg cuff BP Diastolic Standing 102 mmHg LA reg cuff Respiratory Rate 16 /min BMI (Body Mass Index) 21.3 kg/m2 05/03/2015 Height 65 inches 5'5" Weight 127.00 lb Pain Level 6 BMI (Body Mass Index) 21.1 kg/m2 04/05/2015 Height 67 inches 5'7" Weight 127.00 lb Heart Rate 71 /min BP Systolic Sitting 167 mmHg BP Diastolic Sitting 104 mmHg Pain Level 5 BMI (Body Mass Index) 19.9 kg/m2 09/03/2014 Height 65 inches 5'5" Weight 130.00 lb Heart Rate 66 /min BP Systolic Sitting 104 mmHg LA, reg BP Diastolic Sitting 80 mmHg LA, reg BP Systolic Standing 98 mmHg LA BP Diastolic Standing 80 mmHg LA BMI (Body Mass Index) 21.6 kg/m2 07/21/2014 Height 65 inches 5'5" Weight 141.50 lb Heart Rate 78 /min BP Systolic Sitting 118 mmHg BP Diastolic Sitting 82 mmHg BP Systolic Standing 108 mmHg BP Diastolic Standing 80 mmHg Respiratory Rate 14 /min BMI (Body Mass Index) 23.5 kg/m2 12/02/2013 Height 65 inches 5'5" Weight 132.00 lb no shoes BP Systolic Sitting 140 mmHg Ra reg cuff BP Diastolic Sitting 104 mmHg Ra reg cuff BP Systolic Standing 130 mmHg Ra BP Diastolic Standing 100 mmHg Ra Respiratory Rate 17 /min BMI (Body Mass Index) 22.0 kg/m2 11/23/2013 Height 65.25 inches 5'5.25" Weight 136.00 lb no shoes Heart Rate 90 /min BP Systolic Sitting 200 mmHg Ra, reg cuff BP Diastolic Sitting 128 mmHg Ra, reg cuff BP Systolic Standing 190 mmHg BP Diastolic Standing 116 mmHg Respiratory Rate 18 /min BMI (Body Mass Index) 22.5 kg/m2 Results Test Date Test Result H/L Range Note Type & Screen 02/29/2016 Patient Blood Type A Positive Antibody Screen NEGATIVE Urinalysis Profile 02/29/2016 Urine Color Yellow Urine Appearance Clear Urine Specific [place] 1.008 Low 1.010-1.030 Urine pH 6.0 5-9 Urine Urobilinogen Negative Negative Urine Ketones Negative Negative Urine Protein Negative Negative Urine Leukocytes Negative Negative Urine Blood 2+ Negative Urine Nitrite Negative Negative Urine Bilirubin Negative Negative Urine Glucose Negative Negative Urine White Blood Cell Trace(0-5/hpf) Absent Urine Red Blood Cell Trace(0-2/hpf) Absent Urine Bacteria Absent Absent Urine Squamous Epithelial Cell Present Absent Basic Metabolic Panel 02/29/2016 Sodium 134 mmol/L 133-145 Potassium 4.2 mmol/L 3.5-5.0 Chloride 101 mmol/L 101-111 Co2 Carbon Dioxide 22 mmol/L 22-32 Anion Gap 11 mmol/L 2-11 Glucose 83 mg/dL 70-100 Blood Urea Nitrogen 28 mg/dL High 6-24 Creatinine 0.92 mg/dL 0.51-0.95 BUN/Creatinine Ratio 30.4 High 8-20 Calcium 9.6 mg/dL 8.6-10.3 Egfr Non- 62.1 >60 Egfr 79.8 >60 1 CBC Auto Diff 02/29/2016 White Blood Count 12.2 10^3/uL High 3.5-10.8 Red Blood Count 5.11 10^6/uL 4.0-5.4 Hemoglobin 13.4 g/dL 12.0-16.0 Hematocrit 42 % 35-47 Mean Corpuscular Volume 81 fL 80-97 Mean Corpuscular Hemoglobin 26 pg Low 27-31 Mean Corpuscular HGB Conc 32 g/dL 31-36 Red Cell Distribution Width 17 % High 10.5-15 Platelet Count 387 10^3/uL 150-450 Mean Platelet Volume 9 um3 7.4-10.4 Abs Neutrophils 8.1 10^3/uL High 1.5-7.7 Abs Lymphocytes 2.8 10^3/uL 1.0-4.8 Abs Monocytes 1.1 10^3/uL High 0-0.8 Abs Eosinophils 0.1 10^3/uL 0-0.6 Abs Basophils 0.1 10^3/uL 0-0.2 Abs Nucleated RBC 0.02 10^3/uL Granulocyte % 66.3 % 38-83 Lymphocyte % 22.7 % Low 25-47 Monocyte % 9.3 % High 1-9 Eosinophil % 0.9 % 0-6 Basophil % 0.8 % 0-2 Nucleated Red Blood Cells % 0.2 Inr/Protime 02/29/2016 Inr 0.97 0.89-1.11 Urine Culture And 01/11/2016 Urine Culture SEE RESULT BELOW 2 Sensitivities Type & Screen 01/11/2016 Patient Blood Type A Positive Antibody Screen NEGATIVE Urinalysis Profile 01/11/2016 Urine Color Yellow Urine Appearance Cloudy Urine Specific [place] 1.008 Low 1.010-1.030 Urine pH 6.0 5-9 Urine Urobilinogen Negative Negative Urine Ketones Negative Negative Urine Protein 2+(100 mg/dL) Negative Urine Leukocytes 3+ Negative Urine Blood 2+ Negative Urine Nitrite Negative Negative Urine Bilirubin Negative Negative Urine Glucose Negative Negative Urine White Blood Cell 3+(>20/hpf) Absent Urine Red Blood Cell 2+(6-10/hpf) Absent Urine Bacteria 1+ Absent Urine Squamous Epithelial Cell Present Absent Inr/Protime 01/11/2016 Inr 0.97 0.89-1.11 Laboratory test finding 01/11/2016 Vitamin B12 731 pg/mL 180-914 3 Vitamin D Total 25(Oh) 43.1 ng/mL 30-50 Comp Metabolic Panel 01/11/2016 Sodium 131 mmol/L Low 133-145 Potassium 3.8 mmol/L 3.5-5.0 Chloride 99 mmol/L Low 101-111 Co2 Carbon Dioxide 24 mmol/L 22-32 Anion Gap 8 mmol/L 2-11 Glucose 68 mg/dL Low 70-100 Blood Urea Nitrogen 12 mg/dL 6-24 Creatinine 0.68 mg/dL 0.51-0.95 BUN/Creatinine Ratio 17.6 8-20 Calcium 9.2 mg/dL 8.6-10.3 Total Protein 7.3 g/dL 6.4-8.9 Albumin 4.1 g/dL 3.2-5.2 Globulin 3.2 g/dL 2-4 Albumin/Globulin Ratio 1.3 1-3 Total Bilirubin 0.30 mg/dL 0.2-1.0 Alkaline Phosphatase 88 U/L 34-104 Alt 12 U/L 7-52 Ast 16 U/L 13-39 Egfr Non- 88.3 >60 Egfr 113.5 >60 4 CBC Auto Diff 01/11/2016 White Blood Count 12.3 10^3/uL High 3.5-10.8 Red Blood Count 4.88 10^6/uL 4.0-5.4 Hemoglobin 12.7 g/dL 12.0-16.0 Hematocrit 40 % 35-47 Mean Corpuscular Volume 82 fL 80-97 Mean Corpuscular Hemoglobin 26 pg Low 27-31 Mean Corpuscular HGB Conc 32 g/dL 31-36 Red Cell Distribution Width 16 % High 10.5-15 Platelet Count 420 10^3/uL 150-450 Mean Platelet Volume 8 um3 7.4-10.4 Abs Neutrophils 9.1 10^3/uL High 1.5-7.7 Abs Lymphocytes 2.0 10^3/uL 1.0-4.8 Abs Monocytes 1.0 10^3/uL High 0-0.8 Abs Eosinophils 0.1 10^3/uL 0-0.6 Abs Basophils 0.1 10^3/uL 0-0.2 Abs Nucleated RBC 0 10^3/uL Granulocyte % 74.4 % 38-83 Lymphocyte % 16.0 % Low 25-47 Monocyte % 8.0 % 1-9 Eosinophil % 1.0 % 0-6 Basophil % 0.6 % 0-2 Nucleated Red Blood Cells % 0 1 Because ethnic data is not always readily available, this report includes an eGFR for both -Americans and non- Americans. The National Kidney Disease Education Program (NKDEP) does not endorse the use of the MDRD equation for patients that are not between the ages of 18 and 70, are , have extremes of body size, muscle mass, or nutritional status, or are non- or non-. According to the National Kidney Foundation, irrespective of diagnosis, the stage of the disease is based on the level of kidney function: Stage Description GFR(mL/min/1.73 m(2)) 1 Kidney damage with normal or decreased GFR 90 2 Kidney damage with mild decrease in GFR 60-89 3 Moderate decrease in GFR 30-59 4 Severe decrease in GFR 15-29 5 Kidney failure <15 (or dialysis) 2 SEE RESULT BELOW Name: ROBYISABEL Meghana : [address]: Benny Celeste MD Acct: [id number] Unit: [id number] AGE: 60 Location: [facility] Re01/11/16 SEX: F Status: REG REF SPEC: [id number] ALLIE: 01/11/16-1245 [facility] DR: Benny Celeste MD REQ: [id number] RECD: 01/11/16 STATUS: LIBRA GOLDMAN DR: Trish Combs MD _ SOURCE: URINE SPDC: ORDERED: Urine Culture Procedure Result Reported Site Urine Culture Final 01/13/16- 0836 ML Organism 1 ESCHERICHIA COLI [place] Count >100,000 (Many) CFU/ML 1. ESCHERICHIA COLI M.I.C. RX --------- ------ Ampicillin >=32 R Cefazolin <=4 S Cefepime <=1 S Ceftriaxone <=1 S Ciprofloxacin <=0.25 S Gentamicin <=1 S Levofloxacin <=0.12 S Meropenem <=0.25 S Nitrofurantoin <=16 S Tetracycline <=1 S Pipercillin/Tazobactam <=4 S Trimethoprim/Sulfamethoxazole <=20 S Amoxicillin/Clavulanic Acid 4 S Aztreonam <=1 S Contact the Microbiology Department for any additional antibiotic reporting. * ML - MAIN LAB (PSC1) . END OF REPORT * ML=Testing performed at Main Lab DEPARTMENT OF PATHOLOGY, [address] [place] [address] Toan Guillaume M.D. Director [facility] # [id number] 3 Normal Range 180 to 914 Indeterminate Range 145 to 180 Deficient Range <145 4 Because ethnic data is not always readily available, this report includes an eGFR for both -Americans and non- Americans. The National Kidney Disease Education Program (NKDEP) does not endorse the use of the MDRD equation for patients that are not between the ages of 18 and 70, are , have extremes of body size, muscle mass, or nutritional status, or are non- or non-. According to the National Kidney Foundation, irrespective of diagnosis, the stage of the disease is based on the level of kidney function: Stage Description GFR(mL/min/1.73 m(2)) 1 Kidney damage with normal or decreased GFR 90 2 Kidney damage with mild decrease in GFR 60-89 3 Moderate decrease in GFR 30-59 4 Severe decrease in GFR 15-29 5 Kidney failure <15 (or dialysis) Procedures Date CPT Code Description Status 08/15/2016 14195 EKG, Interpretation Only Completed 04/02/2016 54871 Treadmill Interp/Report Only Completed 04/02/2016 29934 Stress Test Supervsn W/Out I/R Completed 03/09/2016 95761 EKG, Interpretation Only Completed 03/05/2016 82698 TKR Total Knee Replacement Completed 03/05/2016 64737 TKR Total Knee Replacement Completed 01/02/2016 49392 EKG Tracing & Interpretation Completed 12/16/2015 66331 Stress Test Completed 12/16/2015 87244 Myocardial Perfusion Imaging Tomographic (Spect) Completed Multiple Studies 12/12/2015 86763 ECHO Transthoracic, Real-Time 2D With Doppler And Color Completed Flow 06/02/2015 75658 Treadmill Interp/Report Only Completed 06/02/2015 42051 Stress Test Supervsn W/Out I/R Completed 06/01/2015 91663 EKG, Interpretation Only Completed 06/01/2015 76951 ECHO Transthorasic Realtime 2D W Doppler & Color Completed Flow Hosp 05/09/2015 00848 EKG Tracing & Interpretation Completed 01/20/2015 77427 EEG Recording Awake & Drowsy Completed 01/20/2015 84657 Color Flow Doppler/Interp & Reprt Completed 01/20/2015 28894 Pulse Wave/Continuous-Interp.RPT Completed 01/20/2015 66176 Echocardiography, Transesophageal, Real Time W/Image 2D Completed W/W/O M-M 01/20/2015 08075 EKG, Interpretation Only Completed 09/03/2014 35764 EKG Tracing & Interpretation Completed 08/18/2014 03379 EEG Recording Awake & Asleep Completed 08/18/2014 74079 ECHO Transthorasic Realtime 2D W Doppler & Color Completed Flow Hosp 08/17/2014 04504 EKG, Interpretation Only Completed 08/16/2014 31311 EKG, Interpretation Only Completed 08/05/2014 82173 ECHO Transthoracic, Real-Time 2D With Doppler And Color Completed Flow 08/02/2014 98687 Stress Test Completed 08/02/2014 44238 Myocardial Perfusion Imaging Tomographic (Spect) Completed Multiple Studies 07/21/2014 36460 EKG Tracing & Interpretation Completed 07/04/2014 19648 EKG, Interpretation Only Completed 11/30/2013 87899 Stress Test Completed 11/30/2013 89838 Myocardial Perfusion Imaging Tomographic (Spect) Completed Multiple Studies 11/27/2013 07004 ECHO Transthoracic, Real-Time 2D With Doppler And Color Completed Flow 11/23/2013 62306 EKG Tracing & Interpretation Completed 03/01/2013 78333 EKG, Interpretation Only Completed 03/01/2013 67687 Stress Test Supervsn W/Out I/R Completed 03/01/2013 31903 Treadmill Interp/Report Only Completed 02/28/2013 44567 Stress Test Completed 02/28/2013 08032 EKG, Interpretation Only Completed 02/28/2013 46872 EKG, Interpretation Only Completed 10/28/2012 00387 EEG Recording Awake & Drowsy Completed 10/20/2011 90003 EKG, Interpretation Only Completed 10/19/2011 37365 EKG, Interpretation Only Completed 03/22/2010 68956 EKG, Interpretation Only Completed 03/21/2010 13594 EKG, Interpretation Only Completed 04/21/2008 83730 EKG, Interpretation Only Completed 04/21/2008 49906 EKG, Interpretation Only Completed 02/01/2007 29741 EKG, Interpretation Only Completed Encounters Type Date Location Provider CPT E/M Dx Office Visit 08/18/2017 [facility], Adam Rosas, 11051 R11.0 6:50a Hospitalists Ramon K22.0 Z86.79 I10 Office Visit 08/17/2017 6:49a [facility] Liss Scruggs, 02247 R11.0 Assoc, [facility] Hospitalists K22.0 Z86.79 I10 Office Visit 07/26/2017 9:18a [facility], Anamaria Sanford, N.P. 33779 K22.0 Hospitalists R07.89 R11.2 Office Visit 07/25/2017 9:18a [facility], Kimo Castanon, 93394 K22.0 Hospitalists Ramon R11.2 R07.89 Office Visit 05/14/2017 3:24p [facility] [place] [address] R11.10 Assoc, Hospitalists K22.0 R07.89 I25.10 Office Visit 05/13/2017 3:24p [facility],[place] [address] R11.10 Hospitalists K22.0 R07.89 I25.10 Office Visit 01/15/2017 2:56p [facility] Alexa Otero, 71607 R07.89 Assoc, Hospitalists Ramon K22.0 Z85.3 Z86.711 Office Visit 01/14/2017 2:55p [facility] [place], [address] R07.89 Assoc, Hospitalists Ramon K22.0 Z85.3 Z86.711 Office Visit 09/16/2016 2:51p [facility] Yumiko Milan, 38083 K22.0 Hospitalists M.DEusebio R07.9 I10 E87.6 Office Visit 09/15/2016 2:50p [facility] Yumiko Bjorn, 25513 K22.0 Hospitalists M.DEusebio R07.9 I10 Office Visit 09/14/2016 2:50p [facility] [address] K22.0 Hospitalists R07.9 E87.6 Office Visit 09/12/2016 2:49p [facility] Tin Olivera, 44817 K22.0 Hospitalists Ramon,[facility] R07.9 Office Visit 08/17/2016 1:25p [facility] Adam Rosas, 35616 R07.9 Hospitalists M.Ashwin R11.0 K22.0 Z86.79 Office Visit 08/16/2016 1:24p [facility] Adam Rosas, 52553 R07.9 Hospitalists M.DEusebio R11.0 K22.0 Z86.79 Office Visit 08/15/2016 1:24p [facility] [address] R07.9 Hospitalists R11.0 K22.0 Z86.79 Office Visit 08/14/2016 1:23p [facility] Liss Scruggs, 99377 R07.9 Assoc,pc [employer] Hospitalists R11.0 K22.0 Z86.79 Office Visit 05/03/2016 10:06a [facility] Eugenio Wagner M.D. 47238 T78.40xA Assoc,pc Hospitalists K22.0 I25.10 Office Visit 04/02/2016 4:03p [facility] [address] R07.9 Hospitalists K22.70 K22.0 I25.10 Office Visit 04/01/2016 4:02p [facility] [address] R07.9 Hospitalists K22.70 K22.0 I25.10 Office Visit 03/07/2016 11:15a [facility], Rylee Valadez, 70895 I25.119 Hospitalists M.DEusebio E78.5 I25.2 Office Visit 03/06/2016 11:15a [facility]ylee Valadez, 32377 D62 Hospitalists M.DEusebio E78.5 I25.119 I10 Office Visit 03/05/2016 11:14a [facility] Eugenio Moore, 56099 I25.119 Assoc, Hospitalists M.DEusebio E78.5 I25.2 I10 Office Visit 02/14/2016 10:00a [facility] Dom[facility]nguez, 23175 I25.10 Dwight Navarro, JELANI, [facility] I10 Office Visit 01/13/2016 9:45a [facility] Domínguez, 43203 I25.118 Dwight Navarro, JELANI, [facility] Office Visit 01/02/2016 10:00a [facility] Dom[facility]ng[place], 39849 I25.118 Dwight Navarro, FACNhan, [facility] Office Visit 11/24/2015 1:30p [facility] Sullivanino, 55646 M17.12 C.M.AEusebio Navarro Office Visit 06/02/2015 10:54a [facility] Alexa Otero, 94374 786.50 Assoc, Hospitalists M.Ashwin 553.3 272.4 401.9 Office Visit 05/31/2015 10:52a [facility], Kimo Castanon, 96230 410.70 Hospitalists MJanelle 553.3 272.4 401.9 Office Visit 05/09/2015 9:00a [facility] Mcgee Domínguez, 72402 414.01 Dwight Navarro, FACNhan, [facility] Office Visit 05/03/2015 2:30p [facility] Laguna, 49945 719.46 C.M.AEusebio ANP-C 715.16 726.64 Office Visit 04/05/2015 1:30p [facility] Celeste, 90943 719.46 C.M.AEusebio MJanelle 717.9 717.3 717.7 715.16 Office Visit 01/20/2015 3:25p [facility] [place] [address] 780.97 784.3 435.9 Office Visit 01/20/2015 2:59p [facility], Alexa Shanna, 67931 599.0 Hospitalists M.DEusebio 435.9 780.97 Office Visit 01/19/2015 2:58p [facility] [place], [address] 599.0 Assoc, Hospitalists M.DEusebio 435.9 780.97 Office Visit 09/03/2014 1:00p [facility] Everardo Domínguez, 66625 780.2 M.Ashwin, [facility], [facility] Office Visit 08/18/2014 3:38p [facility] Francisco, 14534 780.2 Services Of Dwight Navarro Office Visit 08/18/2014 11:05a [facility], Eugenio Wagner M.D. 16186 780.97 Hospitalists 414.9 780.39 789.00 Office Visit 08/16/2014 11:04a [facility], Kimo Castanon, 96452 780.97 Hospitalists M.DEusebio 789.00 414.9 530.85 Office Visit 07/21/2014 10:30a [facility] Everardo Domínguez, 29960 786.50 M.Ashwin, [facility], [facility] Office Visit 07/05/2014 1:21p [facility], Eugenio Moore, 61431 786.50 Hospitalists M.D. 414.01 989.5 V15.06 Office Visit 07/04/2014 1:20p [facility], Adam Rosas, 88058 786.50 Hospitalists M.D. 989.5 414.01 V15.06 Office Visit 12/02/2013 8:45a [facility], 85111 786.50 Dwight Navarro, [facility], [facility] Office Visit 11/23/2013 1:00p [facility] Everardo Domínguez, 58786 786.51 Dwight Navarro, KALE, [facility] 530.85 414.01 Office Visit 08/21/2013 6:57p [facility], Anamaria Sanford N.PEusebio 36169 786.51 Hospitalists 530.85 414.01 Office Visit 08/20/2013 9:14a [facility] Greg [place], 44962 786.51 Assoc, Hospitalists N.P. 530.85 414.01 Office Visit 03/01/2013 10:08a [facility] Assoc,pc Rylee Valadez, 60479 786.50 Hospitalists MJanelle 414.01 530.0 Office Visit 02/28/2013 10:08a [facility] Assoc,pc Rylee Valadez, 93504 786.50 Hospitalists Ramon 414.01 530.0 Office Visit 10/28/2012 9:[place], [address] 780.2 Assoc, Hospitalists Ramon 786.51 414.00 959.01 Office Visit 10/27/2012 9:50a [facility], 56713 780.2 Assoc, Hospitalists Ramon 786.51 414.00 959.01 Office Visit 03/22/2010 12:15a [facility] Patrick Mejia M.D. 20378 786.50 Assoc, Hospitalists Office Visit 03/21/2010 12:45a [facility] Kimo Conklin, 39276 786.59 Assoc, Hospitalists N.P. Office Visit 03/16/2009 12:15a [facility] Alexa Hohn, 03487 786.59 Assoc, Hospitalists Ramon Plan of Care Future Appointment(s):10/30/2017 10:45 am - [facility]10/24/2017 - Erick Garcia MDK22.0 Achalasia of dehchxV19.0 DehydrationFollow up:operating roomR13.10 Dysphagia, unspecified
[2017-10-25] MEDS ORDERED: Morphine INJ* 4 MG/ML 1 ML CARPUJECT IV ONE ×4 (11:33→15:20)
[2017-10-25] MEDS ORDERED: LORazepam INJ* 2 MG/ML 1 ML VIAL IV PUSH ONE (11:33)
[2017-10-25] MEDS ORDERED: Ondansetron INJ* 2 MG/ML VIAL IV ONE ×2 (11:33→14:58)
[2017-10-25] MEDS ORDERED: Morphine INJ* 2 MG/ML 1 ML SYRINGE (TWO MG - NEW SYRINGE VERSION) ONE (11:48)
[2017-10-25 12:02] LABS: ABS Basophils 0.1 10^3/ul (0-0.2); ABS Eosinophils 0 10^3/ul (0-0.6); ABS Lymphocytes 1.2 10^3/ul (1.0-4.8); ABS Monocytes 0.4 10^3/ul (0-0.8); ABS Neutrophils 7.9 10^3/ul (1.5-7.7); ABS Nucleated RBC 0 10^3/ul; Eosinophil % 0 % (0-6); Hematocrit 44 % (35-47); Hemoglobin 14.8 g/dl (12.0-16.0); Lymphocyte % 12.8 % (25-47); Mean Corpuscular HGB Conc 34 g/dl (31-36); Mean Corpuscular Hemoglobin 29 pg (27-31); Mean Corpuscular Volume 86 fL (80-97); Mean Platelet Volume 8 um3 (7.4-10.4); Nucleated Red Blood Cells % 0.1; Platelet Count 285 10^3/ul (150-450); Red Blood Count 5.12 10^6/ul (4.0-5.4); Red Cell Distribution Width 14 % (10.5-15); White Blood Count 9.6 10^3/ul (3.5-10.8)
[2017-10-25 12:16] LABS: EGFR Non-African American 80.8 (>60)
[2017-10-25] MEDS ORDERED: NS 0.9% 1000 ML* 2,000 ML IV ONE (13:12)
[2017-10-25] MEDS ORDERED: Morphine INJ* 10 MG/ML 1 ML CARPUJECT ONE ×2 (13:22→15:04)
[2017-10-25] MEDS ORDERED: hydrALAZINE IV* 20 MG/ML VIAL IV SLOW PU PRN (17:46)
[2017-10-25] MEDS ORDERED: HYDROmorphone INJ* 2 MG/ML CARPUJECT SYRINGE IV SLOW PU PRN (17:48)
[2017-10-25] MEDS ORDERED: HYDROmorphone INJ* 2 MG/ML CARPUJECT SYRINGE IV SLOW PU ONE (17:48)
[2017-10-25] MEDS ORDERED: Albuterol HFA INHALER* 8 gm MDI INH PRN (17:50)
[2017-10-25] MEDS ORDERED: Nitroglycerin TAB 0.4 MG* 0.4 MG TAB SL PRN (17:50)
[2017-10-25] MEDS ORDERED: diPHENhydraMINE PO* 50 MG PO PRN (17:50)
[2017-10-25] MEDS ORDERED: Carisoprodol TAB* 350 MG PO PRN (17:50)
[2017-10-25] MEDS ORDERED: Morphine INJ* 4 MG/ML 1 ML CARPUJECT IV PRN (17:54)
[2017-10-25] MEDS ORDERED: NS 0.9% 1000 ML* 1,000 ML IV SCH (18:00)
[2017-10-25] MEDS ORDERED: hydrALAZINE IV* 20 MG/ML VIAL IV SLOW PU ONE (18:02)
[2017-10-25] MEDS ORDERED: amLODIPine TAB* 5 MG PO ONE (18:20)
--- NOTE | 2017-10-25 19:38 | RAD ---
INDICATION: Chest pain, vomiting. COMPARISON: September 16, 2017 TECHNIQUE: Dual energy PA and routine lateral views of the chest were obtained. REPORT: Postsurgical change of LEFT mastectomy and RIGHT breast implant augmentation. Elevated lung volumes and both diffuse mild prominence of the interstitial markings and patchy rarefaction of the mid to upper lung zone interstitial markings. No focal pulmonary lesion, compelling alveolar consolidation, pleural effusion, pneumothorax. Negative for cardiomegaly. Unremarkable central pulmonary vasculature. Mildly tortuous descending thoracic aorta. Negative for suspicious osseous lesions. IMPRESSION: Stigmata of advanced obstructive lung disease. No acute pulmonary or cardiac process evident.
[2017-10-25] MEDS ORDERED: MORPHINE SULFATE 60 MG PO SCH (21:00)
[2017-10-25] MEDS ORDERED: Atorvastatin* 20 MG TAB PO SCH (21:00)
[2017-10-25] MEDS: Baclofen TAB* 10 MG PO SCH (22:09)
[2017-10-25] MEDS: Heparin VIAL(*) 5000 UNITS/ML VIAL (FIVE THOUSAND) SUBCUT SCH (22:09)
[2017-10-25] MEDS: HYDROmorphone INJ* 2 MG/ML CARPUJECT SYRINGE IV SLOW PU PRN (22:09)
[2017-10-25] MEDS: Morphine TAB Extended Release (*) 30 MG TAB.ER PO SCH (22:09)
[2017-10-25] MEDS: PROCHLORPERAZINE INJ 5 MG/ML 2 ML VIAL IV PRN (22:10)
--- NOTE | 2017-10-25 23:32 | HP ---
CC: Trish Combs MD * ADMISSION HISTORY AND PHYSICAL: DATE OF ADMISSION: 10/25/17 PRIMARY CARE PROVIDER: Trish Combs MD MY ATTENDING WHILE IN THE HOSPITAL: Alexa Otero MD * (DICTATED BY CRISTINA LEIJA) CHIEF COMPLAINT: Chest pain and nausea and vomiting. HISTORY OF PRESENT ILLNESS: Ms. Prasad is a 62-year-old female with past medical history significant for achalasia, coronary artery disease with NH, DVT and PE provoked, Fernández's esophagus, hypertension, hyperlipidemia, TIA, and breast cancer in remission who presents to the emergency department with 2 days of nausea, burning substernal chest pain and pressure, and dry heaves. The patient has been admitted to this facility 4 times in 2016, 7 times in 2015, 2 times in 2014, 1 time in 2013, 4 times in 2012 and numerous other times, mainly related to this complaint. The patient states that she has taken 3 Zofran 4 mg ODT and 2 doses of morphine, which decreased her nausea and chest pain, but that it never went away and the patient's chest pain is still 8/ 10 after receiving 14 mg of morphine in the emergency department and 12 mg of Zofran IV. The patient has Compazine ordered, but did not take it. The patient denies associated symptoms of chest pain. The patient states she has diaphoresis with her dry heaves. The patient denies shortness of breath, swelling in her legs, decreased exercise tolerance or other anginal equivalents. The patient states she has pain and nausea every day, but this is the worst that has been in a long time. The patient states she is able to take a little bit of food 1 glass of tea this morning, but that she has to fight to swallow. The patient has achalasia, but is generally able to swallow well. The patient has a PEG tube, which has been clogged since the and she has not followed up with her surgeon or anyone else to unclog it. The patient states her weight fluctuates 5 pounds every week or so. The patient denies any consistent weight loss. The patient denies any other fevers, chills , dysuria, or other abdominal pain. The patient had no recent changes in her diet. Her only change in her medication was this addition of baclofen to her diet on 09/09/17 by her pain medicine specialist, Dr. Ayala. The patient states the pain is constant, has no provoking factors. The patient states she is too worn out to go home, is unable to eat, and is interested in being admitted to the hospital for IV hydration, pain medication, and antiemetics. PAST MEDICAL HISTORY: 1. Achalasia, severe with port insertion. 2. Coronary artery disease and NH with 2 stents in 2003 and 2005. 3. DVT/PE. 4. Hyperlipidemia. 5. Hypertension. 6. Fernández's esophagus, last EGD last summer without evidence of progression. 7. Breast cancer in remission. 8. TIA. 9. Nephrolithiasis. MEDICATIONS: 1. Nitroglycerin 0.4 mg sublingual every 5 minutes as needed. 2. Vitamin B12 injection 1000 mcg/mL 1 IM monthly. 3. Optivar 0.05% 1 drop both eyes b.i.d. as needed. 4. EpiPen 0.3 mg injection as needed. 5. Soma 350 mg p.o. b.i.d. as needed. 6. Albuterol 2 puffs inhalation q.4 hours as needed. 7. Omeprazole 40 mg p.o. daily. 8. Compazine 10 mg p.o. b.i.d. as needed. 9. Amlodipine 10 mg p.o. q.a.m. 10. Clopidogrel 75 mg p.o. daily. 11. Benadryl 50 mg p.o. t.i.d. as needed. 12. Morphine sulfate ER 60 mg p.o. 4 times a day. 13. Zofran 4 mg p.o. q.8 hours as needed. 14. Losartan 100 mg p.o. daily. 15. Metoprolol succinate 25 mg p.o. daily. 16. Nutritional Jevity 1.5 calories fiber 5 cans p.o. daily. 17. Morphine tab 15 mg p.o. q.4 hours as needed. 18. Drisdol 50,000 units p.o. weekly. 19. Simvastatin 40 mg p.o. at bedtime. 20. Baclofen 10 mg p.o. t.i.d. ALLERGIES: The patient has allergies to BOTOX, CONTRAST MEDIA IODINE, NSAIDS, BOTULINUM A, PENICILLIN, ADHESIVE TAPE, BEE VENOM, CHLORHEXIDINE, LATEX, BETADINE, SHELLFISH and seasonal allergies. FAMILY HISTORY: The patient had a father and 2 brothers who of coronary artery disease. The patient's mother of a stroke. The patient has no family history of diabetes. The patient has an aunt and uncle, who both of breast cancer. SOCIAL HISTORY: The patient is a current smoker, smokes half a pack a day, has a [id number] history. The patient denies alcohol or illicit drug abuse. 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 The patient is and has 2 children. REVIEW OF SYSTEMS: A 14-point review of systems was conducted and is negative except as above. PHYSICAL EXAMINATION GENERAL: The patient is a 62-year-old female who appears much older than stated age and sitting in the bed, in no acute distress. VITAL SIGNS: Temperature 98.9, heart rate 74, respiratory rate 13, oxygen saturation 94% on room air. Blood pressure 226/111, before that it was 116/101. HEENT: Head: Normocephalic, atraumatic. Sclerae anicteric. No conjunctival injection. Nasal mucosa is moist. Oral mucosa is moist. No pharyngeal erythema or discharge. NECK: Supple, nontender. No lymphadenopathy. No carotid bruits auscultated. RESPIRATORY: Clear to auscultation bilaterally. No wheezes, rales, or rhonchi. Good air exchange bilaterally. CARDIAC: Regular rate and rhythm. No clicks, murmurs, gallops, or rubs. Pulses 2+ in the bilateral dorsalis pedis, posterior tibialis, and radial areas. ABDOMEN: The patient has a PEG tube with no discharge from her surgical site. PEG tube is full of dark red liquid. Bowel sounds present and normoactive in all 4 quadrants. No hepatosplenomegaly. No abdominal bruits auscultated. Nontender to palpation. GENITOURINARY: No suprapubic tenderness or CVA tenderness. NEURO: Cranial nerves II through XII are grossly intact. Sensation intact to light touch in the upper and lower extremities distally and proximally. SKIN: Clean, dry, and intact. No rash. PSYCHIATRIC: The patient has a flat affect and is minimally engaging in the interview. DIAGNOSTIC STUDIES/LAB DATA: White blood cell count 9.6, hemoglobin 14.8, hematocrit 44, platelet count 25,000. Sodium 131, potassium 3.7, chloride 101, carbon dioxide 19, anion gap 11, BUN 32, creatinine 0.73. BUN to creatinine ratio 43.8. Glucose 105, lactic acid 1.4, calcium 8.8, bilirubin 0.8. AST 14, ALT 7, alkaline phosphatase 59. Troponin I 0.00 and 0.01. Total protein 7.2, albumin 3.9, globulin 3.3. Albumin-globulin ratio 1.2. EKG shows normal sinus rhythm. No ST segment changes. Left axis deviation. Left ventricular hypertrophy. Left atrial enlargement. QTC of 451. No other abnormalities. Chest x-ray pending. IMPRESSION AND PLAN: The patient is a 62-year-old female with past medical history significant for achalasia, coronary artery disease and myocardial infarction with 2 stents, deep venous thrombosis, pulmonary embolism, hyperlipidemia, hypertension, transient ischemic attack and breast cancer, who presents with chest pain which is typical for her achalasia exacerbations, nausea, and vomiting, unresponsive to medications and hypertensive urgency who will be admitted overnight for antiemetic therapy, intravenous pain medications , IV fluids and for blood pressure control. 1. Achalasia, chest pain. This chest pain most likely represents another exacerbation of the patient's achalasia, which usually responds well within 24 hours to IV antiemetics, IV pain medication and fluids. The patient will be admitted in observation for these. The patient has no EKG changes or troponins indicating this represents acute coronary syndrome. We will continue the patient's home morphine ER. The patient will also have Dilaudid and morphine IV available every 4 hours for mild to moderate or moderate to severe pain respectively. The patient wants to take baclofen and Soma at home doses while in the hospital. 2. Hypertensive urgency. The patient had significantly elevated blood pressures while in the emergency department, not correlating with nausea and vomiting episodes. We will give hydralazine 5 mg IV slow push in the emergency department and amlodipine 10 mg p.o. in the emergency department. The patient will also have hydralazine available as needed for blood pressures systolic above 170. The patient states she was able to take her home medication regimen in the morning, but this will be resumed tomorrow morning. As this is unable to be confirmed, we will continue to monitor. The patient has no signs of demand ischemia or other end organ damage. 3. Coronary artery disease. The patient is not having a current myocardial infarction. The patient will have nitroglycerin available as needed for chest pain that is different in character than her achalasia pain. Continue statin. 4. Nausea and vomiting. The patient has intractable nausea and vomiting related to her achalasia. The patient states that this is often controlled by medication, but is not controlled when outpatient. Will have Zofran and Compazine available IV as needed for nausea. The patient states she was able to take p.o. intake this morning, but was not able to take very much. The patient appears dehydrated based on her clinical exam and BUN to creatinine ratio. The patient has no acute kidney injury. The patient will be started on fluids at 100 mL an hour. The patient received 2 L while in the emergency department. The patient will have daily weights while in the hospital. 5. Fernández's esophagus. We will continue the patient's home dose of omeprazole. 6. FEN. The patient is able to take some food due to achalasia. The patient said her G-tube was clogged, but it flushed, one of the tube ports flushed well in the emergency department. This will be available for tube feeds if the patient is unable to tolerate p.o. meals while in the hospital. 7. DVT prophylaxis. The patient will be on heparin subcu and SCDs. The patient has a history of peripheral deep venous thrombosis. 8. Code status. The patient is a full code. 9. Disposition. The patient is admitted to observation. TIME SPENT: Approximately 60 minutes were spent on this admission, 30 of which was spent [id number] with the patient obtaining history and physical and discussing treatment plan. This treatment plan was discussed with my attending, Dr. Alexa Otero, and she is in agreement. CRISTINA LEIJA [id number]/[facility] #: [id number] MTDDionicio
[2017-10-26] MEDS: Morphine INJ* 2 MG/ML 1 ML SYRINGE (TWO MG - NEW SYRINGE VERSION) IV PRN ×2 (01:37→06:44)
[2017-10-26] MEDS: Ondansetron INJ* 2 MG/ML VIAL IV PRN ×2 (01:38→08:56)
[2017-10-26] MEDS: HYDROmorphone INJ* 2 MG/ML CARPUJECT SYRINGE IV SLOW PU PRN ×2 (04:12→09:32)
[2017-10-26] MEDS: PROCHLORPERAZINE INJ 5 MG/ML 2 ML VIAL IV PRN (05:29)
[2017-10-26] MEDS: Heparin VIAL(*) 5000 UNITS/ML VIAL (FIVE THOUSAND) SUBCUT SCH (05:29)
[2017-10-26] MEDS ORDERED: CMCS: Pantoprazole TAB (NF) 40 MG TAB PO SCH (07:30)
[2017-10-26 07:59] VITALS: BP 148/86
[2017-10-26] MEDS: Morphine TAB Extended Release (*) 30 MG TAB.ER PO SCH (08:20)
[2017-10-26] MEDS: Baclofen TAB* 10 MG PO SCH (08:20)
[2017-10-26] MEDS ORDERED: Metoprolol Succinate XL TAB* 25 MG PO SCH (09:00)
[2017-10-26] MEDS ORDERED: amLODIPine TAB* 5 MG PO SCH (09:00)
[2017-10-26] MEDS ORDERED: Clopidogrel TAB* 75 MG PO SCH (09:00)
[2017-10-26] MEDS ORDERED: Losartan TAB* 25 MG PO SCH (09:00)
--- NOTE | 2017-10-26 17:05 | DS ---
AMENDED REPORT NOW INCLUDES COSIGNER DESIGNATION - ESIGNED BEFORE ADJUSTMENT CC: Dr. Trish Combs * DISCHARGE SUMMARY: DATE OF ADMISSION: 10/25/17 DATE OF DISCHARGE: 10/26/17 PRIMARY CARE PROVIDER: Dr. Trish Combs. ATTENDING PHYSICIAN DURING THIS ADMISSION: Dr. Alexa Otero * (DICTATED BY CHONG LECHUGA, DAYNE) HOSPITAL COURSE: This is a pleasant 62-year-old female patient, who was admitted on 10/25/17 for intractable nausea, vomiting, and chest pain. The patient has a very complicated medical history including Efrnández's esophagus, hypertension, hyperlipidemia, TIA, breast cancer, mastectomy, coronary artery disease, [place], DVT, PE, achalasia, and G-tube placement. The patient presented to the emergency department with a complaint of 2 days of nausea and vomiting, burning in her chest and dry heaves. The patient stated that she has had 7 admissions in the last year for the same. This is all secondary to her achalasia. She does have antiemetics at home; however, all of her symptoms were refractory to her antiemetics. In the emergency department, she received IV antiemetics and also IV morphine to decrease her pain and her nausea and vomiting symptoms. After receiving fluids and antiemetics and pain medication in the ED, she still was not feeling well enough to go home and was quite exhausted by the whole process. She remained the night for observation. Upon examination, this morning, the patient stated she felt much better. She had no more vomiting. Also, incidentally, the patient states that her G-tube was clogged. She does have an appointment with her surgeon in [place] next week to potentially have her G-tube replaced. However, she does have normal p.o. intake when her achalasia is not acting up. The patient was seen this morning. Vital signs were stable. She also had some hypertensive urgency overnight. However, her blood pressure was normal at 148/ 86 this morning and no further complaints overnight. Vital signs at discharge, blood pressure 148/76, O2 saturation 95% on room air, pulse rate 62, respirations are 16, temperature 98.0. LABORATORY DATA: WBC 9.6, RBC 5.12, hemoglobin 14.8, hematocrit 44, and platelets 285. Chemistry shows sodium 131, potassium 3.7, chloride 101, CO2 19 , BUN 32, creatinine 0.73, and glucose 105. MEDICATIONS AT THE TIME OF DISCHARGE: Include: 1. Nitroglycerin 0.4 mg as needed. 2. Vitamin B12 1000 mcg monthly. 3. Optivar 0.05% one drop both eyes 2 times a day as needed. 4. Soma 350 mg 2 times a day as needed. 5. Albuterol 2 puffs q.4 hours as needed. 6. Omeprazole 40 mg daily. 7. Compazine 10 mg 2 times a day as needed. 8. Amlodipine 10 mg daily. 9. Plavix 75 mg daily. 10. Benadryl 50 mg 3 times a day as needed. 11. Morphine sulfate ER 60 mg 4 times a day. 12. Zofran 4 mg q.8 hours as needed. 13. Losartan 100 mg daily. 14. Metoprolol succinate 25 mg daily. 15. Jevity 1.5 calories 5 cans p.o. daily. 16. Morphine immediate release 15 mg q.4 hours as needed. 17. Drisdol 50,000 units p.o. weekly. 18. Simvastatin 40 mg q.h.s. 19. Baclofen 10 mg 3 times a day. CONDITION ON DISCHARGE: The patient was discharged in stable condition. DISCHARGE INSTRUCTIONS: We discussed at length her followups with her physician and with her surgeon in [place] and also her primary care doctor. Also, of note, the patient does have chronic hyponatremia. She did receive IV fluids in the ER throughout the night. Sodium was stable and at her baseline, and she was asymptomatic regarding her hyponatremia. The patient did not require any prescriptions at the time of discharge. She verbalized her understanding of her home prescriptions and her followups and was told to return to the hospital if she had any further issues. She will see her painter and decorator as well as needed. CHONG LECHUGA NP [id number]/[facility] #: [id number] [place]
== END 2017-10-26 10:25 | disposition home or self-care (01) ==
LOC: ED 10:55 → MED 17:49
PROVIDERS: ADMIT Internal Medicine; ATTEND Internal Medicine
DX: R11.2 Nausea with vomiting, unspecified (principal); R07.9 Chest pain, unspecified; K22.0 Achalasia of cardia; K22.70 Barrett's esophagus without dysplasia; I16.0 Hypertensive urgency; E78.5 Hyperlipidemia, unspecified; Z86.73 Personal history of transient ischemic attack (TIA), and cerebral infarction without residual deficits; Z85.3 Personal history of malignant neoplasm of breast; I25.10 Atherosclerotic heart disease of native coronary artery without angina pectoris; I25.2 Old myocardial infarction; Z86.711 Personal history of pulmonary embolism; Z86.718 Personal history of other venous thrombosis and embolism; Z79.01 Long term (current) use of anticoagulants; Z88.8 Allergy status to other drugs, medicaments and biological substances; Z88.0 Allergy status to penicillin; F17.210 Nicotine dependence, cigarettes, uncomplicated
CPT/HCPCS: 36415; 71046; 80053; 83605; 84484; 85025; 93005; 96372; 96374; 96375; 96376; 99285; A9270-GY; G0378; J0360; J0780; J1170; J1644; J2060; J2270; J2405

== ENCOUNTER 2017-10-29 12:22 | Observation (INO) | payer OTHER ==
--- NOTE | 2017-10-29 13:09 | RAD ---
Indication: Chest pain. Single frontal view of the chest performed at 1250 hours was reviewed. Comparison is made with previous exam dated October 25, 2014. No mediastinal shift is noted. Heart is of normal size and configuration. Lung rivas appear clear. Patient appears to have a right breast implant. Patient status post left mastectomy IMPRESSION: NO ACTIVE CARDIOPULMONARY DISEASE IS NOTED.
[2017-10-29] MEDS ORDERED: Morphine INJ* 4 MG/ML 1 ML CARPUJECT IV ONE ×2 (13:32→15:06)
[2017-10-29] MEDS ORDERED: Ondansetron INJ* 2 MG/ML VIAL IV ONE ×2 (13:32→15:06)
[2017-10-29 13:57] LABS: ABS Basophils 0.1 10^3/ul (0-0.2); ABS Eosinophils 0 10^3/ul (0-0.6); ABS Lymphocytes 1.3 10^3/ul (1.0-4.8); ABS Monocytes 0.5 10^3/ul (0-0.8); ABS Nucleated RBC 0 10^3/ul; Eosinophil % 0.2 % (0-6); Hematocrit 41 % (35-47); Hemoglobin 14.4 g/dl (12.0-16.0); Lymphocyte % 14.8 % (25-47); Mean Corpuscular HGB Conc 35 g/dl (31-36); Mean Corpuscular Hemoglobin 30 pg (27-31); Mean Corpuscular Volume 85 fL (80-97); Mean Platelet Volume 8 um3 (7.4-10.4); Nucleated Red Blood Cells % 0.1; Platelet Count 237 10^3/ul (150-450); Red Blood Count 4.87 10^6/ul (4.0-5.4); Red Cell Distribution Width 14 % (10.5-15); White Blood Count 8.9 10^3/ul (3.5-10.8)
[2017-10-29 14:41] LABS: EGFR Non-African American 122.2 (>60)
[2017-10-29] MEDS ORDERED: Morphine INJ* 10 MG/ML 1 ML CARPUJECT IV PRN (17:23)
[2017-10-29] MEDS ORDERED: diPHENhydraMINE PO* 50 MG PO PRN (17:25)
[2017-10-29] MEDS ORDERED: AZELASTINE 0.05% BOTH EYES PRN (17:25)
[2017-10-29] MEDS ORDERED: Albuterol HFA INHALER* 8 gm MDI INH PRN (17:25)
[2017-10-29] MEDS ORDERED: Nitroglycerin TAB 0.4 MG* 0.4 MG TAB SL PRN (17:25)
--- NOTE | 2017-10-29 17:35 | ADMNOTE ---
Subjective Date of Service: 10/29/17 Interval History: ADMISSION HISTORY AND PHYSICAL EXAM: Allergies Allergy/AdvReac Type Severity Reaction Status Date / Time Adhesive Tape Allergy Severe Itching Verified 10/28/17 13:45 Albumin Human [From Botox] Allergy Severe Anaphylatic Verified 10/28/17 13:45 Shock Bee Venom Allergy Severe Anaphylatic Verified 10/28/17 13:45 Shock Chlorhexidine Allergy Severe Rash And Verified 10/28/17 13:45 [From Hibiclens] Itching Iodinated Contrast Media Allergy Severe Anaphylatic Verified 10/28/17 13:45 [IV CONTRAST DYE] Shock Iodine Allergy Severe Anaphylatic Verified 10/28/17 13:45 Shock Latex Allergy Severe Hives Verified 10/28/17 13:45 NSAIDs Allergy Severe Hives Verified 10/28/17 13:45 OnabotulinumtoxinA Allergy Severe Anaphylatic Verified 10/28/17 13:45 [From Botox] Shock Penicillins Allergy Severe Anaphylatic Verified 10/28/17 13:45 Shock Povidone Iodine Allergy Severe Itching Verified 10/28/17 13:45 [From Betadine] Shellfish Allergy Allergy Severe Anaphylatic Verified 10/28/17 13:45 Shock ENVIRONMENTAL/SEASONAL Allergy Intermediate ITCHY,WATERY Uncoded 10/28/17 13:45 HAYFEVER EYES, SNEEZE, CONGESTION Home Medications Medication Instructions Recorded Confirmed Type Azelastine 0.05% (OPHTH)(NF) 1 drop BOTH EYES BID PRN 05/31/15 10/29/17 History [Optivar 0.05% (NF)] Cyanocobalamin INJ * [Vitamin B12 1,000 mcg IM MONTHLY 05/31/15 10/29/17 History INJ *] Epinephrine [Epipen 2-Godwin] 0.3 mg INJ ONCE PRN 05/31/15 10/29/17 History Carisoprodol TAB* [Soma TAB*] 350 mg PO BID 01/16/16 10/29/17 History Albuterol HFA INHALER* [Ventolin 2 puff INH Q4H PRN 08/14/16 10/29/17 History HFA Inhaler*] Omeprazole CAP* [Prilosec CAP* 20 40 mg PO QAM 09/19/16 10/29/17 History MG] Prochlorperazine TAB* [Compazine 10 mg PO BID PRN 10/17/16 10/29/17 History Tab*] amLODIPine TAB* [Norvasc 5 mg TAB*] 10 mg PO QAM 01/15/17 10/29/17 History Clopidogrel TAB* [Plavix TAB*] 75 mg PO QAM 04/26/17 10/29/17 History Morphine Sulfate [Morphine Sulfate 60 mg PO TID 07/23/17 10/29/17 History ER] Ondansetron ODT TAB* [Zofran 4 MG 4 mg PO Q8HR PRN 07/23/17 10/29/17 History Odt TAB*] diPHENhydraMINE PO* [Benadryl PO 50 mg PO TID PRN 07/23/17 10/29/17 History 50 MG CAP*] Nitroglycerin TAB 0.4 MG* 0.4 mg SL Q5M PRN 10/09/17 10/29/17 History Baclofen TAB* [Lioresal TAB*] 5 mg PO DAILY 10/25/17 10/29/17 History Metoprolol Succinate XL TAB* 25 mg PO QAM 10/25/17 10/29/17 History [Toprol XL TAB*] Nutritional Supplements [Jevity 5 can PO QID 10/25/17 10/29/17 History 1.5 Pineda/Fiber] Simvastatin TAB(NF) [Zocor 20 MG 40 mg PO BEDTIME 10/25/17 10/29/17 History (NF)] Morphine Oral Solution 100ml/5 1.25 ml PO Q2H 10/28/17 10/29/17 History Ergocalciferol CAP* [Drisdol CAP*] 50,000 unit PO WEEKLY 10/29/17 10/29/17 History Losartan TAB* [Cozaar TAB*] 100 mg PO DAILY 10/29/17 10/29/17 History HPI: Patient was discharge 3 days ago. She continues to have nausea. She states she can' vomit. Pain in chest also not well controlled despite 12.5 mg SL morphine at home. Review of Systems - Measurements Intake and Output: Intake and Output Last 24 Hours 10/27/17 10/28/17 10/29/17 10/30/17 06:59 06:59 06:59 06:59 Output Total 100 Balance -100 Weight 102 lb Output: G Tube 100 J Tube 0 Objective Active Medications: Albuterol (Ventolin Hfa Inhaler*) 2 puff INH Q4H PRN PRN Reason: WHEEZING Amlodipine Besylate (Norvasc Tab*) 10 mg PO QAM [facility] Azelastine HCl (Optivar 0.05% (Nf)) 1 drop BOTH EYES BID PRN PRN Reason: Allergy Symptoms Cyanocobalamin (Vitamin B12 Inj *) 1,000 mcg IM MONTHLY [facility] Diphenhydramine HCl (Benadryl Po*) 50 mg PO TID PRN PRN Reason: Allergy Symptoms Potassium Chloride/Sodium Chloride (Ns 0.45% Kcl 20 Meq 1000 Ml*) 1,000 mls @ 75 mls/hr IV PER RATE [facility] Losartan Potassium (Cozaar Tab*) 100 mg PO DAILY [facility] Metoprolol Succinate (Toprol Xl Tab*) 25 mg PO QAM [facility] Morphine Sulfate (Morphine Inj (Syringe)*) 6 mg IV Q4H PRN PRN Reason: PAIN Morphine Sulfate (Morphine Oral Concentrate*) 15 mg PO Q3H PRN PRN Reason: PAIN Nitroglycerin (Nitroglycerin Tab 0.4 Mg*) 0.4 mg SL Q5M PRN PRN Reason: chest pain Non-Formulary Medication (Morphine Sulfate [Morphine Sulfate Er]) 60 mg PO TID [facility] Omeprazole (Prilosec Cap*) 40 mg PO QAM [facility] Ondansetron HCl (Zofran Inj*) 4 mg IV Q4H PRN PRN Reason: NAUSEA Vital Signs - 8 hr 10/29/17 10/29/17 10/29/17 12:29 12:57 13:00 Temperature 98.6 F Pulse Rate 98 80 Respiratory 18 13 12 Rate Blood Pressure 193/124 (mmHg) O2 Sat by Pulse 7 97 Oximetry 10/29/17 10/29/17 10/29/17 13:12 13:14 13:30 Temperature Pulse Rate 73 71 Respiratory 15 14 Rate Blood Pressure 214/116 212/120 (mmHg) O2 Sat by Pulse 97 96 96 Oximetry 10/29/17 10/29/17 10/29/17 13:37 14:00 15:00 Temperature Pulse Rate 66 73 Respiratory 15 13 17 Rate Blood Pressure (mmHg) O2 Sat by Pulse 95 96 Oximetry 10/29/17 10/29/17 10/29/17 15:18 16:00 16:58 Temperature Pulse Rate 65 77 Respiratory 18 13 11 Rate Blood Pressure 190/116 (mmHg) O2 Sat by Pulse 95 95 Oximetry 10/29/17 10/29/17 17:00 17:30 Temperature Pulse Rate 73 Respiratory 14 Rate Blood Pressure 189/115 180/117 (mmHg) O2 Sat by Pulse 95 Oximetry Oxygen Devices in Use Now: None Result Diagrams: 10/29/17 13:45 10/29/17 13:45 Assess/Plan/Problems-Billing Assessment: - Patient Problems (1) Achalasia Current Visit: No Status: Chronic Code(s): K22.0 - ACHALASIA OF CARDIA SNOMED Code(s): 42488289 Comment: IV fluids, reg diet. IV MS PRN, continue MS SR and MS SL here as well. IV ondansetron for nause PRN. Pt scheduled for port 10/30. By report, Dr. Willingham will discuss surgical options with the patien.
[2017-10-29] MEDS: Losartan TAB* 25 MG PO SCH (17:37)
[2017-10-29] MEDS: Morphine ORAL CONCENTRATE* 5 MG/0.25 ML ORAL.SYRIN PO PRN (21:07)
[2017-10-29] MEDS: Morphine TAB Extended Release (*) 30 MG TAB.ER PO SCH (21:10)
[2017-10-29] MEDS: NS 0.45% KCl 20 Meq 1000 ML* 1,000 ML IV SCH (21:32)
[2017-10-30] MEDS: Morphine ORAL CONCENTRATE* 5 MG/0.25 ML ORAL.SYRIN PO PRN ×3 (00:52→15:33)
[2017-10-30] MEDS: Morphine INJ* 10 MG/ML 1 ML CARPUJECT IV PRN ×3 (03:03→11:28)
[2017-10-30] MEDS: Ondansetron INJ* 2 MG/ML VIAL IV PRN ×2 (07:25→15:34)
[2017-10-30] MEDS ORDERED: Omeprazole CAP* 20 MG PO SCH (07:30)
[2017-10-30] MEDS ORDERED: amLODIPine TAB* 5 MG PO SCH (09:00)
[2017-10-30] MEDS ORDERED: Metoprolol Succinate XL TAB* 25 MG PO SCH (09:00)
--- NOTE | 2017-10-30 09:57 | PN ---
Subjective Date of Service: 10/30/17 Interval History: Pain controlled with IV morphine. SL MS Patient was not using the G-tube because she was told it was only for medications taht she couldn't swallow. Objective Active Medications: Albuterol (Ventolin Hfa Inhaler*) 2 puff INH Q4H PRN PRN Reason: WHEEZING Amlodipine Besylate (Norvasc Tab*) 10 mg PO QAM [facility] Azelastine HCl (Optivar 0.05% (Nf)) 1 drop BOTH EYES BID PRN PRN Reason: Allergy Symptoms Cyanocobalamin (Vitamin B12 Inj *) 1,000 mcg IM MONTHLY [facility] Diphenhydramine HCl (Benadryl Po*) 50 mg PO TID PRN PRN Reason: Allergy Symptoms Potassium Chloride/Sodium Chloride (Ns 0.45% Kcl 20 Meq 1000 Ml*) 1,000 mls @ 75 mls/hr IV PER RATE [facility] Last Admin: 10/29/17 21:32 Dose: 75 mls/hr Losartan Potassium (Cozaar Tab*) 100 mg PO DAILY [facility] Last Admin: 10/29/17 17:37 Dose: 100 mg Metoprolol Succinate (Toprol Xl Tab*) 25 mg PO QAM [facility] Morphine Sulfate (Ms Contin(*)) 60 mg PO TID [facility] Last Admin: 10/29/17 21:10 Dose: 60 mg Morphine Sulfate (Morphine Inj (Syringe)*) 6 mg IV Q4H PRN PRN Reason: PAIN Last Admin: 10/30/17 07:20 Dose: 6 mg Morphine Sulfate (Morphine Oral Concentrate*) 20 mg PO Q3H PRN PRN Reason: PAIN Nitroglycerin (Nitroglycerin Tab 0.4 Mg*) 0.4 mg SL Q5M PRN PRN Reason: chest pain Omeprazole (Prilosec Cap*) 40 mg PO 0730 [facility] Last Admin: 10/30/17 07:19 Dose: 40 mg Ondansetron HCl (Zofran Inj*) 4 mg IV Q4H PRN PRN Reason: NAUSEA Last Admin: 10/30/17 07:25 Dose: 4 mg Vital Signs - 8 hr 10/30/17 10/30/17 10/30/17 02:54 03:03 03:23 Temperature Pulse Rate 74 Respiratory 16 18 17 Rate Blood Pressure 119/66 (mmHg) O2 Sat by Pulse 95 Oximetry 10/30/17 10/30/17 10/30/17 05:43 07:19 07:20 Temperature 98.3 F Pulse Rate 60 Respiratory 18 18 16 Rate Blood Pressure 149/87 (mmHg) O2 Sat by Pulse 97 Oximetry Oxygen Devices in Use Now: None Appearance: Alert, partly up in bed. In fair spirits. Looks comfortable. Eyes: No Scleral Icterus Extremities: No Edema, No Clubbing, Cyanosis, - Skin: No Rash or Ulcers, No Nodules or Sclerosis, - Neurological: Alert and Oriented x 3, NL Sensation Result Diagrams: 10/29/17 13:45 10/29/17 13:45 Assess/Plan/Problems-Billing Assessment: - Patient Problems (1) Achalasia Current Visit: No Status: Chronic Code(s): K22.0 - ACHALASIA OF CARDIA SNOMED Code(s): 74308236 Comment: IV fluids, reg diet. IV MS PRN, continue MS SR and MS SL here as well. IV ondansetron for nause PRN. Pt scheduled for port 10/30. Discussed with Dr. Willingham 10/1017. Our GI service could place a G-tube if needed but otherwise they have nothing to offer the pt. He advised her to fup with her surgeon in [place]. Start TF via G-tube port 1200 ml (5 cans Jevity 1.2) by pump 8PM-8AM. Mediport insertion scheduled fo 11 AM 10/30/17.
[2017-10-30] MEDS: Morphine TAB Extended Release (*) 30 MG TAB.ER PO SCH ×2 (10:57→14:01)
[2017-10-30] MEDS: Losartan TAB* 25 MG PO SCH (10:57)
[2017-10-30] MEDS: NS 0.45% KCl 20 Meq 1000 ML* 1,000 ML IV SCH (11:21)
[2017-10-30 13:50] VITALS: BP 130/75
--- NOTE | 2017-10-30 14:34 | PN ---
"Progress Note - Progress Note Date of Service: 10/30/17 Note: This report was requested by: Adam Rosas | Reference #: [id number] My Prescriptions Patient Name: Isabel Prasad Date: 1955 Address: [address] [place] [id number] Sex: Female Rx Written Rx Dispensed Drug Quantity Days Supply Prescriber Name 08/18/2017 08/23/2017 morphine sulf 100 mg/5 ml (20 mg/ml) solution 90ml 30 Adam Rosas MD 08/18/2017 08/18/2017 morphine sulf 100 mg/5 ml (20 mg/ml) solution 30ml 2 Adam Rosas MD Patient Name: Isabel Prasad Date: 1955 Address: [address] [place] [id number] Sex: Female Rx Written Rx Dispensed Drug Quantity Days Supply Prescriber Name 09/23/2017 09/24/2017 morphine sulf 100 mg/5 ml (20 mg/ml) solution 360ml 30 BlegenTrish MD 09/23/2017 09/24/2017 morphine sulf er 60 mg tablet 90 30 BlegenTrish MD 09/23/2017 09/24/2017 carisoprodol 350 mg tablet 90 30 BlegenTrish MD 09/17/2017 09/18/2017 morphine sulfate ir 15 mg tab 42 7 BlegenTrish MD 08/21/2017 09/03/2017 morphine sulf er 60 mg tablet 90 30 BlegenTrish MD Patient Name: Isabel Prasad Date: 1955 Address: [address] [place] [id number] Sex: Female Rx Written Rx Dispensed Drug Quantity Days Supply Prescriber Name 08/21/2017 08/23/2017 carisoprodol 350 mg tablet 90 30 BlegenTrish MD 07/24/2017 07/24/2017 morphine sulfate ir 15 mg tab 180 30 BlegenTrish MD 07/24/2017 07/24/2017 morphine sulf er 30 mg tablet 90 30 BlegenTrish MD 07/23/2017 07/24/2017 carisoprodol 350 mg tablet 60 30 BlegenTrish MD 07/16/2017 07/16/2017 morphine sulfate ir 15 mg tab 60 10 BlegenTrish MD 06/25/2017 06/26/2017 morphine sulfate ir 15 mg tab 120 30 Blegen, Trish Calero MD 06/25/2017 06/26/2017 morphine sulf er 30 mg tablet 90 30 Blegen, Trish Calero MD 06/25/2017 06/26/2017 carisoprodol 350 mg tablet 60 30 [place], Ming Philippe Iii 05/22/2017 05/26/2017 morphine sulfate ir 15 mg tab 120 30 Blegen, Trish Calero MD 05/22/2017 05/26/2017 morphine sulf er 30 mg tablet 90 30 Blegen, Trish Calero MD 05/22/2017 05/26/2017 carisoprodol 350 mg tablet 60 30 Blegen, Trish Calero MD 04/25/2017 04/29/2017 morphine sulfate ir 15 mg tab 108 27 Blegen, Trish Calero MD 04/25/2017 04/29/2017 morphine sulf er 30 mg tablet 81 27 Blegen, Trish Calero MD 04/25/2017 04/25/2017 morphine sulfate ir 15 mg tab 12 3 Blegen, Trish Calero MD 04/25/2017 04/25/2017 morphine sulf er 30 mg tablet 9 3 Blegen, Trish Calero MD 04/25/2017 04/25/2017 carisoprodol 350 mg tablet 60 30 Blegen, Trish Calero MD 03/25/2017 03/26/2017 morphine sulfate ir 15 mg tab 120 30 Blegen, Trish Calero MD 03/25/2017 03/26/2017 morphine sulf er 30 mg tablet 90 30 Blegen, Trish Calero MD 03/25/2017 03/26/2017 carisoprodol 350 mg tablet 60 30 Blegen, Trish Calero MD 02/13/2017 02/28/2017 morphine sulfate ir 15 mg tab 90 30 Blegen, Trish Calero MD 02/13/2017 02/28/2017 morphine sulf er 30 mg tablet 90 30 Blegen, Trish Calero MD 02/13/2017 02/28/2017 carisoprodol 350 mg tablet 60 30 Blegen, Trish Calero MD 01/10/2017 01/15/2017 morphine sulf er 30 mg tablet 60 30 Blegen, Trish Calero MD 01/10/2017 01/15/2017 morphine sulfate ir 15 mg tab 90 30 Blegen, Trish Calero MD 01/12/2017 01/12/2017 carisoprodol 350 mg tablet 60 30 Chelsea Cast MD 12/13/2016 12/17/2016 morphine sulfate ir 15 mg tab 90 30 Blegen, Trish Calero MD 12/13/2016 12/17/2016 morphine sulf er 30 mg tablet 60 30 Blegen, Trish Calero MD 12/13/2016 12/14/2016 carisoprodol 350 mg tablet 60 30 Blegen, Trish Calero MD 11/15/2016 11/16/2016 morphine sulfate ir 15 mg tab 90 30 Blegen, Trish Calero MD 11/15/2016 11/16/2016 morphine sulf er 30 mg tablet 60 30 Blegen, Trish Calero MD 11/05/2016 11/05/2016 carisoprodol 350 mg tablet 60 30 Blegen, Trish aClero MD"
--- NOTE | 2017-10-30 18:01 | DS ---
CC: Dr. Combs * DISCHARGE SUMMARY: DATE OF ADMISSION: DATE OF DISCHARGE: 10/30/17 HISTORY: This 62-year-old woman presented with persistent nausea and chest pain , which was not well controlled at home. The details are dictated in the admission note. I note she has had frequent admissions and in fact was discharged 3 days ago. The patient's pain was controlled with 6 mg of morphine IV. I increased her oral morphine dose to 2 mg sublingual every 3 hours p.r.n.; I think this will give her better control. I gave her the option of giving a trial of feedings overnight and seeing if she wants to go home on 10/31/17, but she preferred to go home today. In fact, the patient was instructed to give her feedings through the J port of the JG tube and give medications as needed through the G port of the JG tube. When the J tube clogged a month ago, she did not think she was allowed to give her feedings through the G port, so she had had no feedings for the past month. The patient has had gastrostomy tubes multiple times before, the only problem she had with them that they would clog up, just like J port clogged up this time. She tolerates her feedings well from G tubes in the past and she did very well this time. I have increased her morphine dose to 30 mg sublingual every 3 hours p.r.n. Other medications are unchanged. FINAL DIAGNOSIS: Achalasia. DISCHARGE MEDICATIONS: 1. Morphine oral concentrate 30 mg every 3 hours p.r.n. 2. Vitamin B12 1000 mcg monthly. 3. Azelastine 0.05% 1 drop both eyes b.i.d. p.r.n. 4. EpiPen p.r.n. 5. Carisoprodol 350 mg b.i.d. 6. Albuterol inhaler 2 puffs every 4 hours p.r.n. 7. Omeprazole 40 mg daily. 8. Prochlorperazine 10 mg b.i.d. p.r.n. 9. Amlodipine 10 mg daily. 10. Clopidogrel 75 mg daily. 11. Diphenhydramine 50 mg t.i.d. p.r.n. 12. Morphine extended release 60 mg t.i.d. 13. Ondansetron ODT 4 mg every 8 hours p.r.n. 14. Nitroglycerin 0.4 mg sublingual every 5 minutes p.r.n. 15. Metoprolol succinate 25 mg daily. 16. Jevity 1.5 1200 mL at 100 mL per hour overnight for 12 hours. 17. Simvastatin 40 mg h.s. 18. Losartan 100 mg daily. 19. Vitamin D3 50,000 units weekly. [id number]/[facility] #: [id number] [facility]
--- NOTE | 2017-10-31 13:52 | ED ---
David Chatterjee Stephanie, scribed for Jose Luis Shaw MD on 10/29/17 at 1317 . HPI Chest Pain - HPI Summary HPI Summary: The pt is a 62 y/o F presenting to the ED with c/o CP that began at 12:30 today. The pt was recently admitted to [facility] overnight. Symptoms include nausea and diffuse CP. The pt denies vomiting. Her pain is rated as an 8 in severity. - History of Current Complaint Chief Complaint: EDChestPainROMI Time Seen by Provider: 10/29/17 12:43 Hx Obtained From: Patient Onset/Duration: Started Hours Ago - 2 Timing: Constant Current Severity: Severe Pain Intensity: 8 Pain Scale Used: 0-10 Numeric Chest Pain Location: Diffuse Chest Pain Radiates: No Aggravating Factor(s): Nothing Alleviating Factor(s): Nothing Associated Signs and Symptoms: Positive: Nausea. Negative: Vomiting - Additional Pertinent History Primary Care Physician: [id number] - Allergy/Home Medications Allergies/Adverse Reactions: Allergies Allergy/AdvReac Type Severity Reaction Status Date / Time Adhesive Tape Allergy Severe Itching Verified 10/28/17 13:45 Albumin Human [From Botox] Allergy Severe Anaphylatic Verified 10/28/17 13:45 Shock Bee Venom Allergy Severe Anaphylatic Verified 10/28/17 13:45 Shock Chlorhexidine Allergy Severe Rash And Verified 10/28/17 13:45 [From Hibiclens] Itching Iodinated Contrast Media Allergy Severe Anaphylatic Verified 10/28/17 13:45 [IV CONTRAST DYE] Shock Iodine Allergy Severe Anaphylatic Verified 10/28/17 13:45 Shock Latex Allergy Severe Hives Verified 10/28/17 13:45 NSAIDs Allergy Severe Hives Verified 10/28/17 13:45 OnabotulinumtoxinA Allergy Severe Anaphylatic Verified 10/28/17 13:45 [From Botox] Shock Penicillins Allergy Severe Anaphylatic Verified 10/28/17 13:45 Shock Povidone Iodine Allergy Severe Itching Verified 10/28/17 13:45 [From Betadine] Shellfish Allergy Allergy Severe Anaphylatic Verified 10/28/17 13:45 Shock ENVIRONMENTAL/SEASONAL Allergy Intermediate ITCHY,WATERY Uncoded 10/28/17 13:45 HAYFEVER EYES, SNEEZE, CONGESTION Home Medications: Home Medications Ergocalciferol CAP* [Drisdol CAP*] 50,000 unit PO WEEKLY 10/29/17 [History Confirmed 10/29/17] Losartan TAB* [Cozaar TAB*] 100 mg PO DAILY 10/29/17 [History Confirmed 10/29/17 ] PMH/Surg Hx/FS Hx/Imm Hx Endocrine/Hematology History: Reports: Hx Anticoagulant Therapy - plavix, Hx Anemia - possible Denies: Hx Diabetes, Hx Thyroid Disease Cardiovascular History: Reports: Hx Angina, Hx Coronary Artery Disease - 2 stents, Hx Deep Vein Thrombosis, Hx Embolism, Hx Hypercholesterolemia, Hx Hypertension - on meds, Hx Myocardial Infarction, Hx Syncope Denies: Hx Congestive Heart Failure, Hx Pacemaker/ICD, Hx Valvular Heart Disease, Other Cardiovascular Problems/Disorders Respiratory History: Reports: Hx Chronic Obstructive Pulmonary Disease (COPD) - Pt denies though providers have diagnosed it, Hx Pneumonia, Hx Pulmonary Embolism - 30 yrs ago, Hx Seasonal Allergies, Other Respiratory Problems/ Disorders - SMOKER Denies: Hx Asthma, Hx Sleep Apnea GI History: Reports: Hx Diverticulosis, Hx Gastroesophageal Reflux Disease, Hx Hiatal Hernia - 3 surgeries, Other GI Disorders - achalasia, Fernández's esophagus , Denies: Hx Ulcer History: Reports: Hx Kidney Infection, Hx Kidney Stones - LAST 12/2015- NO PROBLEMS SINCE PER PATIENT Denies: Hx Dialysis, Hx Renal Disease, Other Problems/Disorders Musculoskeletal History: Reports: Hx Arthritis - LEFT KNEE, BACK, Hx Back Problems - L1 fx, Other Musculoskeletal History - L1 fx Denies: Hx Osteoporosis Sensory History: Reports: Hx Cataracts - maryuri, Hx Contacts or Glasses - glasses Denies: Hx Hearing Aid Opthamlomology History: Reports: Hx Cataracts - maryuri, Hx Contacts or Glasses - glasses Neurological History: Reports: Hx Spinal Cord Injury - L1, Hx Transient Ischemic Attacks (TIA), Other Neuro Impairments/Disorders - POSSIBLE SMALL TIA'S - 3 yrs ago Psychiatric History: Reports: Hx Anxiety Denies: Hx Panic Disorder - Cancer History Cancer Type, Location and Year: RT BREAST CA, 2009 HAD A BILATERAL MASTECTOMY Hx Chemotherapy: No Hx Radiation Therapy: No - Surgical History Surgery Procedure, Year, and Place: RT LUMPECTOMY 02/2010, BILATERAL MASTECTOMY ,. 2001& 2002 CARDIAC STENT AT [facility] IN [place] ON [address],. LEFT KNEE SURGERY X10,. BILATERAL SHOULDER SURGERY,. ESPOHOGEAL SURGERY,1996, 2015. failed breast implant on left. PARTIAL HYSTERECTOMY, 1976. APPENDIX A CHILD,. CHEST TUBE, 1996. ESOPHAGEAL DILATION. NISSIN FUNDOLPICATION multiple Hx Anesthesia Reactions: No - Immunization History Date of Tetanus Vaccine: up to date Date of Influenza Vaccine: 06/2016 Infectious Disease History: No Infectious Disease History: Denies: Hx Clostridium Difficile, Hx Hepatitis, Hx Human Immunodeficiency Virus (HIV), Hx of Known/Suspected MRSA, Hx Shingles, Hx Tuberculosis, Hx Known/ Suspected VRE, Hx Known/Suspected VRSA, History Other Infectious Disease, Traveled Outside the [place] in Last 30 Days - Family History Known Family History: Positive: Cardiac Disease - Father, 2 brothers - [place]. Mother - AFIB, Hypertension, Diabetes - Social History Occupation: Disabled Lives: Alone Alcohol Use: Rare Hx Substance Use: No Substance Use Type: Reports: Prescribed Substance Use Comment - Amount & Last Used: prescribed Hx Tobacco Use: Yes Smoking Status (MU): Heavy Every Day Tobacco Smoker Type: Cigarettes Amount Used/How Often: 10 CIGARETTES A day X 45 YEARS Length of Time of Smoking/Using Tobacco: 40+ YEARS Have You Smoked in the Last Year: Yes Review of Systems Negative: Fever, Chills Negative: Erythema Negative: Sore Throat Positive: Chest Pain Negative: Shortness Of Breath, Cough Positive: Nausea. Negative: Abdominal Pain, Vomiting Negative: dysuria, hematuria Negative: Myalgia, Edema Negative: Rash Neurological: Other - Negative: dizziness All Other Systems Reviewed And Are Negative: Yes Physical Exam - Summary Physical Exam Summary: Constitutional: Well-developed, Well-nourished, Alert. (-) Distressed Skin: Warm, Dry HENT: Normocephalic; Atraumatic Eyes: Conjunctiva normal Neck: Musculoskeletal ROM normal neck. (-) JVD, (-) Stridor, (-) Tracheal deviation Cardio: Rhythm regular, rate normal, Heart sounds normal; Intact distal pulses; The pedal pulses are 2+ and symmetric. Radial pulses are 2+ and symmetric. (-) Murmur Pulmonary/Chest wall: Effort normal. (-) Respiratory distress, (-) Wheezes, (-) Rales Abd: Soft, (-) Tenderness, (-) Distension, (-) Guarding, (-) Rebound Musculoskeletal: (-) Edema Lymph: (-) Cervical adenopathy Neuro: Alert, Oriented x3 Psych: Mood and affect Normal Triage Information Reviewed: Yes Vital Signs On Initial Exam: Initial Vitals Temp Pulse Resp BP Pulse Ox 98.6 F 98 18 193/124 7 10/29/17 12:29 10/29/17 12:29 10/29/17 12:29 10/29/17 12:29 10/29/17 12:29 Vital Signs Reviewed: Yes Diagnostics - Vital Signs Vital Signs Temp Pulse Resp BP Pulse Ox 10/29/17 12:29 98.6 F 98 18 193/124 7 - Laboratory Result Diagrams: 10/29/17 13:45 10/29/17 13:45 Lab Statement: Any lab studies that have been ordered have been reviewed, and results considered in the medical decision making process. - Radiology CXR Xray Interpretation: No Acute Changes Radiology Interpretation Completed By: Radiologist - NO ACTIVE CARDIOPULMONARY DISEASE IS NOTED. - EKG 12:38 EKG Rhythm: Sinus Rhythm - 77 BPM EKG Interpretation: no STEMI Chest Pain Course/Dx - Course Course Of Treatment: Dr. Willingham agrees with plan for admission and IV fluids. Outpatient referral to [facility]. Pt will be evaluated for potential total gastrectomy and esophagectomy. - Diagnoses Provider Diagnoses: Achalasia, Jejunostomy malfunction, Dehydration - Provider Notifications Discussed Care Of Patient With: Vick Willingham - Dr. Willingham agrees to admit pt for observation. Time Discussed With Above Provider: 16:17 Instructed by Provider To: Admit As Observation Discharge - Discharge Plan Condition: Stable Disposition: ADMITTED TO [facility] Referrals: Trish Combs MD [Primary Care Provider] - The documentation as recorded by the David vyas Stephanie accurately reflects the service I personally performed and the decisions made by , Jose Luis Shaw MD.
[2017-11-03] MEDS ORDERED: Cyanocobalamin INJ * 1,000 MCG/ML VIAL 1 ML VIAL IM SCH (09:00)
== END 2017-10-30 16:10 | disposition home or self-care (01) ==
LOC: ED 12:22 → MED 17:11 → INTOOBSV 17:11
PROVIDERS: ADMIT Internal Medicine; ATTEND Internal Medicine
DX: K22.0 Achalasia of cardia (principal); R06.2 Wheezing; R07.9 Chest pain, unspecified; R11.0 Nausea; T78.40XA Allergy, unspecified, initial encounter
CPT/HCPCS: 36415; 71045; 80053; 83605; 84484; 85025; 93005; 96374; 96375; 99284; A9270-GY; G0378; J2270; J2405

== ENCOUNTER 2017-11-26 05:38 | Emergency (ER) | payer OTHER ==
[2017-11-26] MEDS ORDERED: Ondansetron INJ* 2 MG/ML VIAL IV ONE (07:37)
[2017-11-26] MEDS ORDERED: Morphine INJ* 4 MG/ML 1 ML CARPUJECT IV ONE (07:37)
[2017-11-26 07:43] LABS: ABS Basophils 0.1 10^3/ul (0-0.2); ABS Eosinophils 0 10^3/ul (0-0.6); ABS Lymphocytes 1.2 10^3/ul (1.0-4.8); ABS Monocytes 0.5 10^3/ul (0-0.8); ABS Neutrophils 9.2 10^3/ul (1.5-7.7); ABS Nucleated RBC 0 10^3/ul; Eosinophil % 0.1 % (0-6); Hematocrit 43 % (35-47); Hemoglobin 14.8 g/dl (12.0-16.0); Lymphocyte % 10.9 % (25-47); Mean Corpuscular HGB Conc 34 g/dl (31-36); Mean Corpuscular Hemoglobin 29 pg (27-31); Mean Corpuscular Volume 85 fL (80-97); Mean Platelet Volume 8 um3 (7.4-10.4); Nucleated Red Blood Cells % 0.3; Platelet Count 274 10^3/ul (150-450); Red Blood Count 5.11 10^6/ul (4.0-5.4); Red Cell Distribution Width 15 % (10.5-15)
[2017-11-26] MEDS ORDERED: Potassium Chloride LIQUID* 20 MEQ PACKET PO ONE (09:41)
[2017-11-26 09:54] VITALS: BP 157/98
--- NOTE | 2017-11-27 18:00 | ED ---
Bertin Chatterjee Angela, scribed for Polo Carrion MD on 11/26/17 at 0724 . GI/ HPI - HPI Summary HPI Summary: This pt is a 62 y/o female presenting to [facility] c/o nausea, dry heaving and epigastric pain. Pt reports associated symptoms of chest pain. She denies any vomiting. Pt currently rates her pain 10/10 in severity. Pt is able to eat some food, such as salads. Pt has a PEG tube because she can't eat sometimes due to her dx of achalasia. PMHx: achalasia. Pt is followed up by Dr. Buckley at [facility]. - History of Current Complaint Chief Complaint: EDAbdPain Time Seen by Provider: 11/26/17 07:15 Stated Complaint: GASTRIC PAIN Hx Obtained From: Patient Onset/Duration: Started Days Ago, Still Present Current Severity: Severe Pain Intensity: 10 - out of 10 Location of Pain: Epigastric Associated Signs and Symptoms: Positive: Nausea, Other: - chest pain, dry heaving. Negative: Vomiting, Fever Aggravating Factor(s): Nothing Alleviating Factor(s): Nothing - Additional Pertinent History Primary Care Physician: [id number] - Allergy/Home Medications Allergies/Adverse Reactions: Allergies Allergy/AdvReac Type Severity Reaction Status Date / Time Adhesive Tape Allergy Severe Itching Verified 11/26/17 07:01 bee venom protein (honey bee) Allergy Severe Anaphylatic Verified 11/26/17 08:48 Shock chlorhexidine Allergy Severe Rash And Verified 11/26/17 08:48 Itching Iodinated Contrast- Oral and Allergy Severe Anaphylatic Verified 11/26/17 08:48 IV Dye Shock iodine Allergy Severe Anaphylatic Verified 11/26/17 08:48 Shock latex Allergy Severe Hives Verified 11/26/17 08:48 NSAIDS (Non-Steroidal Allergy Severe Hives Verified 11/26/17 08:48 Anti-Inflamma onabotulinumtoxinA Allergy Severe Anaphylatic Verified 11/26/17 08:48 [From Botox] Shock Penicillins Allergy Severe Anaphylatic Verified 11/26/17 08:48 Shock povidone-iodine Allergy Severe Itching Verified 11/26/17 08:48 shellfish derived Allergy Severe Anaphylatic Verified 11/26/17 08:48 Shock albumin colloid, human Allergy Anaphylatic Verified 11/26/17 08:44 Shock ENVIRONMENTAL/SEASONAL Allergy Intermediate ITCHY,WATERY Uncoded 11/26/17 07:01 HAYFEVER EYES, SNEEZE, CONGESTION PMH/Surg Hx/FS Hx/Imm Hx Endocrine/Hematology History: Reports: Hx Anticoagulant Therapy - plavix, Hx Anemia - possible Denies: Hx Diabetes, Hx Thyroid Disease Cardiovascular History: Reports: Hx Angina, Hx Coronary Artery Disease - 2 stents, Hx Deep Vein Thrombosis, Hx Embolism, Hx Hypercholesterolemia, Hx Hypertension - on meds, Hx Myocardial Infarction, Hx Syncope Denies: Hx Congestive Heart Failure, Hx Pacemaker/ICD, Hx Valvular Heart Disease, Other Cardiovascular Problems/Disorders Respiratory History: Reports: Hx Chronic Obstructive Pulmonary Disease (COPD) - Pt denies though providers have diagnosed it, Hx Pneumonia, Hx Pulmonary Embolism - 30 yrs ago, Hx Seasonal Allergies, Other Respiratory Problems/ Disorders - SMOKER Denies: Hx Asthma, Hx Sleep Apnea GI History: Reports: Hx Diverticulosis, Hx Gastroesophageal Reflux Disease, Hx Hiatal Hernia - 3 surgeries, Other GI Disorders - achalasia, Fernández's esophagus , Denies: Hx Ulcer History: Reports: Hx Kidney Infection, Hx Kidney Stones - LAST 12/2015- NO PROBLEMS SINCE PER PATIENT Denies: Hx Dialysis, Hx Renal Disease, Other Problems/Disorders Musculoskeletal History: Reports: Hx Back Problems - L1 fx, Other Musculoskeletal History - L1 fx Denies: Hx Arthritis, Hx Osteoporosis Sensory History: Reports: Hx Cataracts - maryuri, Hx Contacts or Glasses - glasses Denies: Hx Hearing Aid Opthamlomology History: Reports: Hx Cataracts - maryuri, Hx Contacts or Glasses - glasses Neurological History: Reports: Hx Spinal Cord Injury - L1, Hx Transient Ischemic Attacks (TIA), Other Neuro Impairments/Disorders - POSSIBLE SMALL TIA'S - 3 yrs ago Psychiatric History: Reports: Hx Anxiety Denies: Hx Panic Disorder - Cancer History Cancer Type, Location and Year: RT BREAST CA, 2009 HAD A BILATERAL MASTECTOMY Hx Chemotherapy: No Hx Radiation Therapy: No - Surgical History Surgery Procedure, Year, and Place: RT LUMPECTOMY 02/2010, BILATERAL MASTECTOMY ,. 2001& 2002 CARDIAC STENT AT [facility] IN [place],. LEFT KNEE SURGERY X10,. BILATERAL SHOULDER SURGERY,. ESPOHOGEAL SURGERY,1996, 2015. failed breast implant on left. PARTIAL HYSTERECTOMY, 1976. APPENDIX A CHILD,. CHEST TUBE, 1996. ESOPHAGEAL DILATION. NISSIN FUNDOLPICATION multiple Hx Anesthesia Reactions: No - Immunization History Date of Tetanus Vaccine: up to date Date of Influenza Vaccine: 06/2016 Infectious Disease History: No Infectious Disease History: Denies: Hx Clostridium Difficile, Hx Hepatitis, Hx Human Immunodeficiency Virus (HIV), Hx of Known/Suspected MRSA, Hx Shingles, Hx Tuberculosis, Hx Known/ Suspected VRE, Hx Known/Suspected VRSA, History Other Infectious Disease, Traveled Outside the [place] in Last 30 Days - Family History Known Family History: Positive: Cardiac Disease - Father, 2 brothers - [place]. Mother - AFIB, Hypertension, Diabetes - Social History Alcohol Use: Rare Hx Substance Use: No Substance Use Type: Reports: Prescribed Substance Use Comment - Amount & Last Used: prescribed Hx Tobacco Use: Yes Smoking Status (MU): Heavy Every Day Tobacco Smoker Type: Cigarettes Amount Used/How Often: 10 CIGARETTES A day X 45 YEARS Length of Time of Smoking/Using Tobacco: 40+ YEARS Have You Smoked in the Last Year: Yes Review of Systems Negative: Fever, Chills ENT: Other - difficulty swallowing Positive: Chest Pain Positive: Abdominal Pain, Nausea All Other Systems Reviewed And Are Negative: Yes Physical Exam - Summary Physical Exam Summary: VITAL SIGNS: Reviewed. GENERAL: Patient is an elderly cachectic female with epigastric and chest pain. HEAD AND FACE: No signs of trauma. No ecchymosis, hematomas or skull depressions. No sinus tenderness. EYES: PERRLA, EOMI x 2, No injected conjunctiva, no nystagmus. EARS: Hearing grossly intact. Ear canals and tympanic membranes are within normal limits. MOUTH: Oropharynx within normal limits. NECK: Supple, trachea is midline, no adenopathy, no JVD, no carotid bruit, no c- spine tenderness, neck with full ROM. CHEST: Symmetric, no tenderness at palpation LUNGS: Clear to auscultation bilaterally. No wheezing or crackles. CVS: Regular rate and rhythm, S1 and S2 present, no murmurs or gallops appreciated. ABDOMEN: Soft. Pt has tenderness in the epigastric area, similar to achalasia pain. No signs of distention. No rebound no guarding, and no masses palpated. Bowel sounds are normal. EXTREMITIES: FROM in all major joints, no edema, no cyanosis or clubbing. NEURO: Alert and oriented x 3. No acute neurological deficits. Speech is normal and follows commands. SKIN: Dry and warm Triage Information Reviewed: Yes Vital Signs On Initial Exam: Initial Vitals Temp Pulse Resp BP Pulse Ox 97.2 F 91 16 188/113 98 11/26/17 05:45 11/26/17 05:45 11/26/17 05:45 11/26/17 05:45 11/26/17 05:45 Vital Signs Reviewed: Yes Diagnostics - Vital Signs Vital Signs Temp Pulse Resp BP Pulse Ox 11/26/17 06:30 77 199/114 94 11/26/17 06:26 193/117 11/26/17 06:24 75 95 11/26/17 06:23 200/121 11/26/17 05:45 97.2 F 91 16 188/113 98 - Laboratory Lab Results: Lab Results 11/26/17 11/26/17 11/26/17 Range/Units 07:30 07:30 09:09 WBC 11.0 H (3.5-10.8) 10^3/ul RBC 5.11 (4.0-5.4) 10^6/ul Hgb 14.8 (12.0-16.0) g/dl Hct 43 (35-47) % MCV 85 (80-97) fL MCH 29 (27-31) pg MCHC 34 (31-36) g/dl RDW 15 (10.5-15) % Plt Count 274 (150-450) 10^3/ul MPV 8 (7.4-10.4) um3 Neut % (Auto) 83.5 H (38-83) % Lymph % (Auto) 10.9 L (25-47) % [place] % (Auto) 4.8 (1-9) % Eos % (Auto) 0.1 (0-6) % Baso % (Auto) 0.7 (0-2) % Absolute Neuts (auto) 9.2 H (1.5-7.7) 10^3/ul Absolute Lymphs (auto) 1.2 (1.0-4.8) 10^3/ul Absolute Monos (auto) 0.5 (0-0.8) 10^3/ul Absolute Eos (auto) 0 (0-0.6) 10^3/ul Absolute Basos (auto) 0.1 (0-0.2) 10^3/ul Absolute Nucleated RBC 0 10^3/ul Nucleated RBC % 0.3 Sodium 131 L (133-145) mmol/L Potassium TNP 3.3 L Chloride 100 L (101-111) mmol/L Carbon Dioxide 23 (22-32) mmol/L Anion Gap 8 (2-11) mmol/L BUN 14 (6-24) mg/dL Creatinine 0.64 (0.51-0.95) mg/dL Est GFR ( Amer) 120.9 (>60) Est GFR (Non-Af Amer) 94.0 (>60) BUN/Creatinine Ratio 21.9 H (8-20) Glucose 102 H (70-100) mg/dL Calcium 8.8 (8.6-10.3) mg/dL Magnesium TNP Total Bilirubin 0.60 (0.2-1.0) mg/dL AST TNP 14 ALT 6 L (7-52) U/L Alkaline Phosphatase 62 (34-104) U/L Total Creatine Kinase 36 (10-223) U/L Troponin I 0.01 (<0.04) ng/mL C-Reactive Protein 2.69 (< 5.00) mg/L Total Protein 7.1 (6.4-8.9) g/dL Albumin 3.9 (3.2-5.2) g/dL Globulin 3.2 (2-4) g/dL Albumin/Globulin Ratio 1.2 (1-3) Amylase 12 L (29-103) U/L Lipase < 10 L (11.0-82.0) U/L Result Diagrams: 11/26/17 07:30 11/26/17 09:09 Lab Statement: Any lab studies that have been ordered have been reviewed, and results considered in the medical decision making process. - EKG 07:24 Cardiac Rate: NL EKG Rhythm: Sinus Rhythm - at 72 bpm EKG Interpretation: Normal axis. ST depression V4-V6. GIGU Course/Dx - Course Assessment/Plan: This pt is a 62 y/o female presenting to [facility] c/o nausea, dry heaving and epigastric pain. Pt reports associated symptoms of chest pain. She denies any vomiting. Pt currently rates her pain 10/10 in severity. Pt is able to eat some food, such as salads. Pt has a PEG tube because she can't eat sometimes due to her dx of achalasia. PMHx: achalasia. Pt is followed up by Dr. Buckley at [facility]. Test results without any significant abnormalities except for WBC of 11, potassium of 3.3, for which she was given potassium chloride. The pt has chronic pain in the epigastric area secondary to achalasia. The pt was given morphine for the pain and her symptoms improved. Pt is tolerating PO without any nausea or vomiting. I do not suspect the pt has acute coronary syndrome since she was seen 2 days ago and had two negative troponins. Therefore, she will be discharged home with follow up from PCP. Pt is hemodynamically stable, alert and oriented x3. - Diagnoses Provider Diagnoses: Achalasia, Esophageal spasm Discharge - Discharge Plan Condition: Stable Disposition: HOME Patient Education Materials: Esophageal Spasm (ED) Referrals: Trish Combs MD [Primary Care Provider] - 3 Days Additional Instructions: Please follow up with your primary care provider. RETURN TO THE ED FOR ANY WORSENING SYMPTOMS. The documentation as recorded by the Bertin vyas Angela accurately reflects the service I personally performed and the decisions made by me, Polo Carrion MD.
== END 2017-11-26 09:53 | disposition home or self-care (01) ==
LOC: ED 05:38
DX: K22.0 Achalasia of cardia (principal); F17.210 Nicotine dependence, cigarettes, uncomplicated; Z88.8 Allergy status to other drugs, medicaments and biological substances; Z88.0 Allergy status to penicillin; Z88.6 Allergy status to analgesic agent; Z91.041 Radiographic dye allergy status
CPT/HCPCS: 36415; 80053; 82150; 82550; 83690; 84484; 85025; 86140; 93005; 96374; 96375; 99284; A9270-GY; J2270; J2405

== ENCOUNTER 2018-01-13 12:38 | Observation (INO) | payer OTHER ==
[2018-01-13] MEDS ORDERED: Ondansetron INJ* 2 MG/ML VIAL IV ONE ×2 (13:17→16:05)
[2018-01-13] MEDS ORDERED: NS 0.9% 1000 ML* 2,000 ML IV ONE (13:17)
--- NOTE | 2018-01-13 14:02 | RAD ---
Indication: Chest pain, vomiting. Chronic obstructive pulmonary disease. Tobacco use. Post bilateral mastectomy. RIGHT breast implant reconstruction. Comparison: October 29, 2017 Technique: Upright AP 1340 hours Report: Elevated lung volumes with rarefaction of the interstitial markings. No focal pulmonary lesion, compelling alveolar consolidation, pleural effusion, pneumothorax. Negative for cardiomegaly. Unremarkable central pulmonary vasculature. Mildly tortuous thoracic aorta. Epigastric surgical clips. IMPRESSION: Stigmata of obstructive lung disease. No acute pulmonary or cardiac process evident.
[2018-01-13] MEDS ORDERED: Morphine INJ* 4 MG/ML 1 ML SYRINGE (NEW SYRINGE VERSION) IV ONE ×2 (14:04→16:05)
[2018-01-13 14:09] LABS: ABS Basophils 0.1 10^3/ul (0-0.2); ABS Eosinophils 0 10^3/ul (0-0.6); ABS Lymphocytes 1.3 10^3/ul (1.0-4.8); ABS Monocytes 0.3 10^3/ul (0-0.8); ABS Neutrophils 6.5 10^3/ul (1.5-7.7); ABS Nucleated RBC 0 10^3/ul; Eosinophil % 0.3 % (0-6); Hematocrit 45 % (35-47); Hemoglobin 15.2 g/dl (12.0-16.0); Lymphocyte % 16.1 % (25-47); Mean Corpuscular HGB Conc 34 g/dl (31-36); Mean Corpuscular Hemoglobin 29 pg (27-31); Mean Corpuscular Volume 85 fL (80-97); Mean Platelet Volume 7.7 um3 (7.4-10.4); Nucleated Red Blood Cells % 0; Platelet Count 255 10^3/ul (150-450); Red Blood Count 5.24 10^6/ul (4.0-5.4); Red Cell Distribution Width 14 % (10.5-15); White Blood Count 8.3 10^3/ul (3.5-10.8)
[2018-01-13] MEDS ORDERED: NS 0.9% 1000 ML* 1,000 ML IV SCH ×2 (14:15→17:15)
[2018-01-13 14:20] LABS: INR 0.9 (0.77-1.02)
[2018-01-13 14:32] LABS: EGFR Non-African American 97.5 (>60)
--- NOTE | 2018-01-13 14:35 | RAD ---
INDICATION: Abdominal pain. Vomiting. Fever. Post appendectomy. Previous Godwin fundoplication and esophageal dilatation. Post partial hysterectomy. COMPARISON: March 04, 2017 CT. TECHNIQUE: Multidetector CT images were obtained from the lung bases to the ischial tuberosities. Evaluation of the viscera is limited without IV contrast. Multiplanar reformation. REPORT: Elevated lung volumes. Mild linear bibasilar subsegmental atelectasis or scarring. Coronary artery calcifications. Unremarkable liver. Distended gallbladder without suspicious CT finding. Atrophic pancreas. Small calcified granuloma at the normal sized spleen. Small hiatal hernia. Percutaneous gastric tube in place with the tip extending to the proximal jejunum at the LEFT lower quadrant. No suspicious finding of the small bowel loops. Severe rectal distention with gas and small volume of stool. Moderately large volume of formed stool throughout the colon. Negative for ascites, free air, or significant hernias. Unremarkable adrenal glands. Few tiny nonobstructing intrarenal stones versus vascular calcifications. Negative for hydronephrosis. Small cortical cyst upper pole RIGHT kidney. Negative for suspicious focal renal lesions. Nondilated ureters. Distended urinary bladder with depression at the posterior margin due to rectal distention. Multiple pelvic phleboliths. Post hysterectomy. Unremarkable adnexal regions. Negative for lymphadenopathy. Atherosclerotic calcification of normal diameter abdominal aorta and iliac arteries. Physiologic distention of the IVC. Healed RIGHT superior and inferior pubic ramus fractures. Very mild superior endplate compression fracture at L1 without change. Only minimal resulting impression on the ventral margin of the thecal sac. Degenerative spondylosis most prominent at L2-L3 and L4-L5 with resulting mild impression on the ventral margin of the thecal sac at both levels. At L4-L5 degenerative spondylosis and facet joint osteoarthritis results in moderate RIGHT unilateral foraminal stenosis without significant change. Less marked foraminal stenosis at multiple other levels. IMPRESSION: 1. Chronic obstructive pulmonary disease. 2. Coronary artery calcifications. 3. Distended gallbladder without additional CT abnormality. Correlate with clinical assessment and consider RIGHT upper quadrant ultrasound for further assessment if deemed appropriate. 4. Small hiatal hernia. 5. Negative for obstructive uropathy. 6. Lumbar sacral spine degenerative spondylosis and facet joint osteoarthritis as noted. If clinically indicated MRI would allow the most accurate assessment.
[2018-01-13 16:44] LABS: Urine Appearance Cloudy; Urine Blood 1+ (Negative); Urine Color Yellow; Urine Ketones Trace (Negative); Urine Protein Negative (Negative); Urine Specific Gravity 1.021 (1.010-1.030); Urine Urobilinogen Negative (Negative)
[2018-01-13] MEDS ORDERED: PROCHLORPERAZINE INJ 5 MG/ML 2 ML VIAL IV PRN (16:47)
[2018-01-13] MEDS ORDERED: Albuterol HFA INHALER* 8 gm MDI INH PRN (16:52)
[2018-01-13] MEDS ORDERED: diPHENhydraMINE PO* 50 MG PO PRN (16:52)
[2018-01-13] MEDS ORDERED: Magnesium Sulfate 2 GM IV* 2 GM/50 ML BAG IVPB ONE (17:12)
--- NOTE | 2018-01-13 17:36 | ED ---
Dora Chattrejee Thomas, scribed for Aravind Rosas MD on 01/13/18 at 1314 . Complex/Multi-Sys Presentation - HPI Summary HPI Summary: The patient is a 62 year old female complaining of cant function or walk or anything that began last night. She complains of body aches. For the last few days, she has been dealing with nausea and chills. She denies diarrhea and fevers. At baseline she is able to ambulate. She lives in her apartment. - History Of Current Complaint Time Seen by Provider: 01/13/18 12:58 Hx Obtained From: Patient Onset/Duration: Still Present Timing: Constant Severity Initially: Moderate Location: Pain At: - diffuse body aches Associated Signs And Symptoms: Positive: Other - Myalgia, nausea, chills; NEGATIVE: diarrhea, fevers - Allergies/Home Medications Allergies/Adverse Reactions: Allergies Allergy/AdvReac Type Severity Reaction Status Date / Time Adhesive Tape Allergy Severe Itching Verified 01/08/18 10:44 bee venom protein (honey bee) Allergy Severe Anaphylatic Verified 01/08/18 10:44 Shock chlorhexidine Allergy Severe Rash And Verified 01/08/18 10:44 Itching Iodinated Contrast- Oral and Allergy Severe Anaphylatic Verified 01/08/18 10:44 IV Dye Shock iodine Allergy Severe Anaphylatic Verified 01/08/18 10:44 Shock latex Allergy Severe Hives Verified 01/08/18 10:44 NSAIDS (Non-Steroidal Allergy Severe Hives Verified 01/08/18 10:44 Anti-Inflamma onabotulinumtoxinA Allergy Severe Anaphylatic Verified 01/08/18 10:44 [From Botox] Shock Penicillins Allergy Severe Anaphylatic Verified 01/08/18 10:44 Shock povidone-iodine Allergy Severe Itching Verified 01/08/18 10:44 shellfish derived Allergy Severe Anaphylatic Verified 01/08/18 10:44 Shock albumin colloid, human Allergy Anaphylatic Verified 01/08/18 10:44 Shock ENVIRONMENTAL/SEASONAL Allergy Intermediate ITCHY,WATERY Uncoded 11/26/17 07:01 HAYFEVER EYES, SNEEZE, CONGESTION Home Medications: Home Medications Albuterol inh POWDER (NF) [Proair Respiclick] 2 puff INH Q4HR PRN 01/13/18 [ History Confirmed 01/13/18] Baclofen TAB* [Lioresal TAB*] 5 mg PO TID 01/13/18 [History Confirmed 01/13/18] EPINEPHrine [Epipen 2-Godwin] 0.3 mg IM ONCE PRN 01/13/18 [History Confirmed ] Ergocalciferol CAP* [Drisdol CAP*] 50,000 unit PO WEEKLY 01/13/18 [History Confirmed 01/13/18] Ketotifen Fumarate [Allergy Eye Drops] 1 drop BOTH EYES BID PRN 01/13/18 [ History Confirmed 01/13/18] Lactose-Reduced Food/Fiber [Jevity 1.5 Pineda/Fiber] 5 can J TUBE DAILY 01/13/18 [ History Confirmed 01/13/18] Lidocaine 2% JELLY* 1 applic TOPICAL DAILY PRN 01/13/18 [History Confirmed 01/13] Morphine Oral Solution 100ml/5 1.25 ml SL Q2HR PRN MDD 15 ml 01/13/18 [History Confirmed 01/13/18] Morphine Sulfate 15 mg PO Q4HR PRN 01/13/18 [History Confirmed 01/13/18] PMH/Surg Hx/FS Hx/Imm Hx Endocrine/Hematology History: Reports: Hx Anticoagulant Therapy - plavix, Hx Anemia - possible Denies: Hx Diabetes, Hx Thyroid Disease Cardiovascular History: Reports: Hx Angina, Hx Coronary Artery Disease - 2 stents, Hx Deep Vein Thrombosis, Hx Embolism, Hx Hypercholesterolemia, Hx Hypertension - on meds, Hx Myocardial Infarction, Hx Syncope Denies: Hx Congestive Heart Failure, Hx Pacemaker/ICD, Hx Valvular Heart Disease, Other Cardiovascular Problems/Disorders Respiratory History: Reports: Hx Chronic Obstructive Pulmonary Disease (COPD) - Pt denies though providers have diagnosed it, Hx Pneumonia, Hx Pulmonary Embolism - 30 yrs ago, Hx Seasonal Allergies, Other Respiratory Problems/ Disorders - SMOKER Denies: Hx Asthma, Hx Sleep Apnea GI History: Reports: Hx Diverticulosis, Hx Gastroesophageal Reflux Disease, Hx Hiatal Hernia - 3 surgeries, Other GI Disorders - achalasia, Fernández's esophagus , Denies: Hx Ulcer History: Reports: Hx Kidney Infection, Hx Kidney Stones - LAST 12/2015- NO PROBLEMS SINCE PER PATIENT Denies: Hx Dialysis, Hx Renal Disease, Other Problems/Disorders Musculoskeletal History: Reports: Hx Back Problems - L1 fx, Other Musculoskeletal History - L1 fx Denies: Hx Arthritis, Hx Osteoporosis Sensory History: Reports: Hx Cataracts - maryuri, Hx Contacts or Glasses - glasses Denies: Hx Hearing Aid Opthamlomology History: Reports: Hx Cataracts - maryuri, Hx Contacts or Glasses - glasses Neurological History: Reports: Hx Spinal Cord Injury - L1, Hx Transient Ischemic Attacks (TIA), Other Neuro Impairments/Disorders - POSSIBLE SMALL TIA'S - 3 yrs ago Psychiatric History: Reports: Hx Anxiety Denies: Hx Panic Disorder - Cancer History Cancer Type, Location and Year: RT BREAST CA, 2009 HAD A BILATERAL MASTECTOMY Hx Chemotherapy: No Hx Radiation Therapy: No - Surgical History Surgery Procedure, Year, and Place: RT LUMPECTOMY 02/2010, BILATERAL MASTECTOMY ,. 2001& 2002 CARDIAC STENT AT [facility] IN [place],. LEFT KNEE SURGERY X10,. BILATERAL SHOULDER SURGERY,. ESPOHOGEAL SURGERY,1996, 2014. failed breast implant on left. PARTIAL HYSTERECTOMY, 1976. APPENDIX A CHILD,. CHEST TUBE, 1996. ESOPHAGEAL DILATION. NISSIN FUNDOLPICATION multiple Hx Anesthesia Reactions: No - Immunization History Date of Tetanus Vaccine: up to date Date of Influenza Vaccine: 06/2016 Infectious Disease History: Denies: Hx Clostridium Difficile, Hx Hepatitis, Hx Human Immunodeficiency Virus (HIV), Hx of Known/Suspected MRSA, Hx Shingles, Hx Tuberculosis, Hx Known/ Suspected VRE, Hx Known/Suspected VRSA, History Other Infectious Disease - Family History Known Family History: Positive: Cardiac Disease - Father, 2 brothers - [place]. Mother - AFIB, Hypertension, Diabetes - Social History Alcohol Use: Rare Hx Substance Use: No Substance Use Type: Reports: None Substance Use Comment - Amount & Last Used: prescribed Hx Tobacco Use: Yes Smoking Status (MU): Current Every Day Smoker Type: Cigarettes Amount Used/How Often: 1/2 PPD Length of Time of Smoking/Using Tobacco: 40+ YEARS Have You Smoked in the Last Year: Yes Review of Systems Positive: Chills. Negative: Fever Negative: Shortness Of Breath Positive: Nausea Positive: Myalgia Neurological: Other - "can't walk" All Other Systems Reviewed And Are Negative: Yes Physical Exam - Summary Physical Exam Summary: General: well-appearing, no pain distress Skin: warm, color reflects adequate perfusion, dry Head: normal Eyes: EOMI, SHAY ENT: dry oral mucosa. Neck: supple, nontender Respiratory: CTA, breath sounds present Cardiovascular: RRR Abdomen: soft. There is generalized diffuse abdominal tenderness. Bowel: quiet bowel sounds. Musculoskeletal: normal, strength/ROM intact Neurological: normal, sensory/motor intact, A&O x3 Psychological: affect/mood appropriate Triage Information Reviewed: Yes Vital Signs On Initial Exam: Initial Vitals Pulse Resp Pulse Ox 75 14 97 01/13/18 13:01 01/13/18 13:01 01/13/18 13:01 Vital Signs Reviewed: Yes Diagnostics - Vital Signs Vital Signs Temp Pulse Resp BP Pulse Ox 01/13/18 15:00 67 13 174/104 93 01/13/18 14:30 73 17 196/120 96 01/13/18 14:27 16 01/13/18 14:25 72 17 194/112 94 01/13/18 14:00 21 01/13/18 13:25 198/110 01/13/18 13:23 73 20 218/117 97 01/13/18 13:20 74 213/123 97 01/13/18 13:02 99.9 F 73 17 000/00 96 01/13/18 13:01 75 14 97 - Laboratory Lab Results: Lab Results 01/13/18 01/13/18 01/13/18 Range/Units 13:53 13:58 13:58 WBC (3.5-10.8) 10^3/ul RBC (4.0-5.4) 10^6/ul Hgb (12.0-16.0) g/dl Hct (35-47) % MCV (80-97) fL MCH (27-31) pg MCHC (31-36) g/dl RDW (10.5-15) % Plt Count (150-450) 10^3/ul MPV (7.4-10.4) um3 Neut % (Auto) (38-83) % Lymph % (Auto) (25-47) % [place] % (Auto) (0-7) % Eos % (Auto) (0-6) % Baso % (Auto) (0-2) % Absolute Neuts (auto) (1.5-7.7) 10^3/ul Absolute Lymphs (auto) (1.0-4.8) 10^3/ul Absolute Monos (auto) (0-0.8) 10^3/ul Absolute Eos (auto) (0-0.6) 10^3/ul Absolute Basos (auto) (0-0.2) 10^3/ul Absolute Nucleated RBC 10^3/ul Nucleated RBC % INR (Anticoag Therapy) 0.90 (0.77-1.02) APTT 32.8 (26.0-36.3) seconds Sodium (133-145) mmol/L Potassium (3.5-5.0) mmol/L Chloride (101-111) mmol/L Carbon Dioxide (22-32) mmol/L Anion Gap (2-11) mmol/L BUN (6-24) mg/dL Creatinine (0.51-0.95) mg/dL Est GFR ( Amer) (>60) Est GFR (Non-Af Amer) (>60) BUN/Creatinine Ratio (8-20) Glucose (70-100) mg/dL Lactic Acid (0.5-2.0) mmol/L Calcium (8.6-10.3) mg/dL Magnesium (1.9-2.7) mg/dL Total Bilirubin (0.2-1.0) mg/dL AST (13-39) U/L ALT (7-52) U/L Alkaline Phosphatase (34-104) U/L Ammonia 34 (16-53) mol/L Total Creatine Kinase (10-223) U/L CK-MB (CK-2) (0.6-6.3) ng/mL Troponin I (<0.04) ng/mL C-Reactive Protein (< 5.00) mg/L B-Natriuretic Peptide 70 ( - 100) pg/mL Total Protein (6.4-8.9) g/dL Albumin (3.2-5.2) g/dL Globulin (2-4) g/dL Albumin/Globulin Ratio (1-3) Lipase (11.0-82.0) U/L TSH (0.34-5.60) mcIU/mL Urine Color Urine Appearance Urine pH (5-9) Ur Specific [place] (1.010-1.030) Urine Protein (Negative) Urine Ketones (Negative) Urine Blood (Negative) Urine Nitrate (Negative) Urine Bilirubin (Negative) Urine Urobilinogen (Negative) Ur Leukocyte Esterase (Negative) Urine WBC (Auto) (Absent) Urine RBC (Auto) (Absent) Ur Squamous Epith Cells (Absent) Urine Bacteria (Absent) Urine Glucose (Negative) Influenza A (Rapid) Negative (Negative) Influenza B (Rapid) Negative (Negative) 01/13/18 01/13/18 01/13/18 Range/Units 13:58 13:58 13:58 WBC 8.3 (3.5-10.8) 10^3/ul RBC 5.24 (4.0-5.4) 10^6/ul Hgb 15.2 (12.0-16.0) g/dl Hct 45 (35-47) % MCV 85 (80-97) fL MCH 29 (27-31) pg MCHC 34 (31-36) g/dl RDW 14 (10.5-15) % Plt Count 255 (150-450) 10^3/ul MPV 7.7 (7.4-10.4) um3 Neut % (Auto) 78.4 (38-83) % Lymph % (Auto) 16.1 L (25-47) % [place] % (Auto) 4.0 (0-7) % Eos % (Auto) 0.3 (0-6) % Baso % (Auto) 1.2 (0-2) % Absolute Neuts (auto) 6.5 (1.5-7.7) 10^3/ul Absolute Lymphs (auto) 1.3 (1.0-4.8) 10^3/ul Absolute Monos (auto) 0.3 (0-0.8) 10^3/ul Absolute Eos (auto) 0 (0-0.6) 10^3/ul Absolute Basos (auto) 0.1 (0-0.2) 10^3/ul Absolute Nucleated RBC 0 10^3/ul Nucleated RBC % 0 INR (Anticoag Therapy) (0.77-1.02) APTT (26.0-36.3) seconds Sodium 130 L (133-145) mmol/L Potassium 3.8 (3.5-5.0) mmol/L Chloride 100 L (101-111) mmol/L Carbon Dioxide 20 L (22-32) mmol/L Anion Gap 10 (2-11) mmol/L BUN 16 (6-24) mg/dL Creatinine 0.62 (0.51-0.95) mg/dL Est GFR ( Amer) 125.4 (>60) Est GFR (Non-Af Amer) 97.5 (>60) BUN/Creatinine Ratio 25.8 H (8-20) Glucose 91 (70-100) mg/dL Lactic Acid 0.6 (0.5-2.0) mmol/L Calcium 9.0 (8.6-10.3) mg/dL Magnesium 1.8 L (1.9-2.7) mg/dL Total Bilirubin 0.40 (0.2-1.0) mg/dL AST 15 (13-39) U/L ALT 7 (7-52) U/L Alkaline Phosphatase 69 (34-104) U/L Ammonia (16-53) mol/L Total Creatine Kinase 24 (10-223) U/L CK-MB (CK-2) 0.9 (0.6-6.3) ng/mL Troponin I 0.01 (<0.04) ng/mL C-Reactive Protein 6.71 H (< 5.00) mg/L B-Natriuretic Peptide ( - 100) pg/mL Total Protein 7.6 (6.4-8.9) g/dL Albumin 3.9 (3.2-5.2) g/dL Globulin 3.7 (2-4) g/dL Albumin/Globulin Ratio 1.1 (1-3) Lipase < 10 L (11.0-82.0) U/L TSH 0.57 (0.34-5.60) mcIU/mL Urine Color Urine Appearance Urine pH (5-9) Ur Specific [place] (1.010-1.030) Urine Protein (Negative) Urine Ketones (Negative) Urine Blood (Negative) Urine Nitrate (Negative) Urine Bilirubin (Negative) Urine Urobilinogen (Negative) Ur Leukocyte Esterase (Negative) Urine WBC (Auto) (Absent) Urine RBC (Auto) (Absent) Ur Squamous Epith Cells (Absent) Urine Bacteria (Absent) Urine Glucose (Negative) Influenza A (Rapid) (Negative) Influenza B (Rapid) (Negative) 01/13/18 Range/Units 16:24 WBC (3.5-10.8) 10^3/ul RBC (4.0-5.4) 10^6/ul Hgb (12.0-16.0) g/dl Hct (35-47) % MCV (80-97) fL MCH (27-31) pg MCHC (31-36) g/dl RDW (10.5-15) % Plt Count (150-450) 10^3/ul MPV (7.4-10.4) um3 Neut % (Auto) (38-83) % Lymph % (Auto) (25-47) % [place] % (Auto) (0-7) % Eos % (Auto) (0-6) % Baso % (Auto) (0-2) % Absolute Neuts (auto) (1.5-7.7) 10^3/ul Absolute Lymphs (auto) (1.0-4.8) 10^3/ul Absolute Monos (auto) (0-0.8) 10^3/ul Absolute Eos (auto) (0-0.6) 10^3/ul Absolute Basos (auto) (0-0.2) 10^3/ul Absolute Nucleated RBC 10^3/ul Nucleated RBC % INR (Anticoag Therapy) (0.77-1.02) APTT (26.0-36.3) seconds Sodium (133-145) mmol/L Potassium (3.5-5.0) mmol/L Chloride (101-111) mmol/L Carbon Dioxide (22-32) mmol/L Anion Gap (2-11) mmol/L BUN (6-24) mg/dL Creatinine (0.51-0.95) mg/dL Est GFR ( Amer) (>60) Est GFR (Non-Af Amer) (>60) BUN/Creatinine Ratio (8-20) Glucose (70-100) mg/dL Lactic Acid (0.5-2.0) mmol/L Calcium (8.6-10.3) mg/dL Magnesium (1.9-2.7) mg/dL Total Bilirubin (0.2-1.0) mg/dL AST (13-39) U/L ALT (7-52) U/L Alkaline Phosphatase (34-104) U/L Ammonia (16-53) mol/L Total Creatine Kinase (10-223) U/L CK-MB (CK-2) (0.6-6.3) ng/mL Troponin I (<0.04) ng/mL C-Reactive Protein (< 5.00) mg/L B-Natriuretic Peptide ( - 100) pg/mL Total Protein (6.4-8.9) g/dL Albumin (3.2-5.2) g/dL Globulin (2-4) g/dL Albumin/Globulin Ratio (1-3) Lipase (11.0-82.0) U/L TSH (0.34-5.60) mcIU/mL Urine Color Yellow Urine Appearance Cloudy Urine pH 6.0 (5-9) Ur Specific [place] 1.021 (1.010-1.030) Urine Protein Negative (Negative) Urine Ketones Trace A (Negative) Urine Blood 1+ A (Negative) Urine Nitrate Negative (Negative) Urine Bilirubin Negative (Negative) Urine Urobilinogen Negative (Negative) Ur Leukocyte Esterase 2+ A (Negative) Urine WBC (Auto) 1+(6-10/hpf) A (Absent) Urine RBC (Auto) 2+(6-10/hpf) A (Absent) Ur Squamous Epith Cells Present A (Absent) Urine Bacteria 1+ A (Absent) Urine Glucose Negative (Negative) Influenza A (Rapid) (Negative) Influenza B (Rapid) (Negative) Result Diagrams: 01/13/18 13:58 01/13/18 13:58 Lab Statement: Any lab studies that have been ordered have been reviewed, and results considered in the medical decision making process. - Radiology CXR Xray Interpretation: No Acute Changes - IMPRESSION: Stigmata of obstructive lung disease. No acute pulmonary or cardiac process evident. Dr. Rosas has reviwed this report. Radiology Interpretation Completed By: Radiologist - CT CT Abd/Pel CT Interpretation: Positive (See Comments) - IMPRESSION: 1. Chronic obstructive pulmonary disease. 2. Coronary artery calcifications. 3. Distended gallbladder without additional CT abnormality. Correlate with clinical assessment and consider RIGHT upper quadrant ultrasound for further assessment if deemed appropriate. 4. Small hiatal hernia. 5. Negative for obstructive uropathy. 6. Lumbar sacral spine degenerative spondylosis and facet joint osteoarthritis as noted. If clinically indicated MRI would allow the most accurate assessment. Dr. Rosas has reviewed this report. CT Interpretation Completed By: Radiologist - EKG 13:45 Cardiac Rate: NL EKG Rhythm: Sinus Rhythm - at 76 BPM Ectopy: PACs EKG Interpretation: LV[facility] Complex Multi-Symp Course/Dx Course Of Treatment: Medications reviewed. Allergies noted. admit hospitalist - Diagnoses Provider Diagnoses: Abdominal pain, Chest pain, Weakness, UTI (urinary tract infection) Discharge - Sign-Out/Discharge Documenting (check all that apply): Discharge - ADMIT HOSPITALIST - Discharge Plan Condition: Stable Disposition: ADMITTED TO [facility] Referrals: Trish Combs MD [Primary Care Provider] - - Billing Disposition and Condition Condition: STABLE Disposition: [facility] The documentation as recorded by the Dora vyas Thomas accurately reflects the service I personally performed and the decisions made by Ralph breen William, MD.
[2018-01-13] MEDS ORDERED: cefTRIAXone VIAL(*) 1,000 MG in NS 0.9% 50 ML* 50 ML IVPB SCH (18:00)
[2018-01-13] MEDS ORDERED: cefTRIAXone 1000 MG SYRINGE IVPB Q24H (in NaCl) IVPB SCH ×2 (18:00)
--- NOTE | 2018-01-13 18:16 | RAD ---
HISTORY: Mildly distended gallbladder seen on CT exam COMPARISONS: Same day noncontrast CT of the abdomen and pelvis TECHNIQUE: Multiple transverse and longitudinal ultrasound images were obtained of the right upper quadrant. FINDINGS: LIVER: The liver is normal in dimensions and echogenicity. Normal hepatic and portal venous blood flow is duplicated with color flow imaging. There is no gross intrahepatic biliary duct dilatation. GALLBLADDER AND EXTRAHEPATIC BILIARY DUCT: The gallbladder measures 9.7 cm in length but only 2.1 x 3.4 cm and cross-sectional dimension. Otherwise the gallbladder is normal in appearance without intraluminal stones or other soft tissue masses. There is no pericholecystic fluid or gallbladder wall thickening. The common bile duct measures a maximum diameter of 8 mm. PANCREAS: Overlying bowel gas prevents reliable evaluation of the pancreas. RIGHT KIDNEY: The right kidney is normal in size, morphology and echogenicity. At the superior pole there is a 1 cm anechoic avascular cyst. IMPRESSION: 1. THE GALLBLADDER APPEARS ELONGATED MEASURING 9.7 CM IN LENGTH BUT ONLY MEASURES 2.1 X 3.4 CM IN CROSS SECTIONAL DIAMETER. THERE IS NO WALL THICKENING, PERICHOLECYSTIC FLUID OR INTRALUMINAL STONES. 2. THE COMMON BILE DUCT IS DILATED UP TO 8 MM WHICH IS SLIGHTLY ABOVE NORMAL FOR A WOMAN OF THIS AGE.
[2018-01-13] MEDS: hydrALAZINE IV* 20 MG/ML VIAL IV SLOW PU PRN (19:40)
[2018-01-13] MEDS: HYDROmorphone INJ* 2 MG/ML CARPUJECT SYRINGE IV SLOW PU PRN (20:17)
[2018-01-13] MEDS: amLODIPine TAB* 5 MG PO SCH (20:17)
[2018-01-13] MEDS: Atorvastatin* 20 MG TAB PO SCH (21:02)
[2018-01-13] MEDS: Baclofen TAB* 10 MG PO SCH (21:02)
[2018-01-13] MEDS: CMCS: Pantoprazole TAB (NF) 40 MG TAB PO SCH (21:02)
[2018-01-13] MEDS: Nortriptyline CAP* 10 MG PO SCH (21:02)
[2018-01-13] MEDS: Carisoprodol TAB* 350 MG PO PRN (21:05)
[2018-01-13] MEDS: Heparin VIAL(*) 5000 UNITS/ML VIAL (FIVE THOUSAND) SUBCUT SCH (21:05)
[2018-01-13] MEDS: Ondansetron INJ* 2 MG/ML VIAL IV PRN (21:20)
--- NOTE | 2018-01-13 21:20 | HP ---
CC: Dr. Trish Combs * HISTORY AND PHYSICAL: DATE OF ADMISSION: 01/13/18 PRIMARY CARE PROVIDER: Dr. Combs. ATTENDING PHYSICIAN WHILE IN THE HOSPITAL: Dr. Shira Alas * (report dictated by Obie Tafoya NP). CHIEF COMPLAINT: 1. Nausea. 2. Vomiting. 3. Epigastric pain and chest pain. 4. Weakness. HISTORY OF PRESENT ILLNESS: Mrs. Prasad is a 62-year-old female patient who carries a history of achalasia, CAD, OR, history of DVT, PE; also carries a history of hyperlipidemia, hypertension, Fernández's esophagus, history of breast cancer, TIA, and nephrolithiasis. She comes into the ED today. She says that she recently had her G-tube exchanged over at [facility]. We are going to try to get those records. She says that she presents today and she says that since then she has been feeling nauseated, she has had some epigastric discomfort. She said she has used the tube that does not make her symptoms any worse or any better. She says that she has done Jevity a couple times and she has been flushing the tube. She says that today though she just was feeling very nauseated. She was having this burning epigastric discomfort. She says that she just was feeling weak, fatigued. She said that she could not manage at home. She too was trying to take her p.o. medications, but they do not managing her symptoms. She was concerned and decided to come into the emergency department. She said she has been feeling chills. There has been no diarrhea. She said she has been nauseous, but is unable to vomit which is typical for her. She says again the pain does not any better when she uses her G-tube. She has not noticed any redness or swelling around the G-tube. She says that otherwise she has been feeling okay. She has had no shortness of breath. No cough symptoms or URI symptoms. She came into the ED, was evaluated. She was given several rounds of antiemetics here in the ED and despite these, they were unable to control her symptoms. So, we were asked to evaluate for admission. PAST MEDICAL HISTORY: Significant for: 1. Achalasia. 2. CAD. 3. OR. 4. DVT. 5. PE. 6. Hyperlipidemia. 7. Hypertension. 8. Fernández's esophagus. 9. Breast cancer. 10. TIA. 11. Nephrolithiasis. PAST SURGICAL HISTORY: 1. She has had cardiac cath x2. 2. G-tube placement with replacement. 3. She has had a left total knee replacement. 4. Shoulder arthroscopy. 5. Hysterectomy. 6. Appendectomy. 7. Godwin fundoplication. HOME MEDICATIONS: Include: 1. Benadryl 50 mg p.o. every 6 hours as needed. 2. Jevity 5 cans J-tube daily. She takes that overnight typically. 3. Baclofen 5 mg p.o. t.i.d. 4. Lidocaine jelly 1 application topically daily as needed. 5. Nitro 0.4 mg sublingual q.5 minutes p.r.n. chest pain x3. 6. EpiPen 0.3 mg IM daily as needed. 7. Soma 350 mg p.o. t.i.d. as needed. 8. Prilosec 40 mg p.o. b.i.d. 9. Vitamin D 50,000 units p.o. weekly. 10. B12 1000 mcg IM monthly. 11. Plavix 75 mg daily. 12. Zofran 4 mg p.o. every 8 hours as needed. 13. Toprol-XL 50 mg a day. 14. Norvasc 10 mg p.o. q.a.m. 15. Compazine 10 mg p.o. b.i.d. as needed. 16. Cozaar 50 mg p.o. daily. 17. Zocor 40 mg p.o. at bedtime. 18. Morphine ER 60 mg p.o. b.i.d. as needed. 19. Morphine sulfate 15 mg every 4 hours as needed. 20. Morphine oral solution 1.25 mL sublingual every 2 hours as needed. 21. ProAir 2 puffs inhaled every 4 hours. 22. Allergy eye drops 1 drop both eyes b.i.d. as needed. 23. Nortriptyline 20 mg p.o. daily. ALLERGIES TO MEDICATIONS: Include TAPE, BEES, CHLORHEXIDINE, IODINE, IV DYE, LATEX, NSAIDS, BOTOX, PENICILLIN, SHELLFISH, ALBUMIN, and ENVIRONMENTAL ALLERGIES. FAMILY HISTORY: Mother had a history of CVA. Father had a history of CAD. SOCIAL HISTORY: The patient is a half-a-pack a day smoker. She does not drink alcohol. Surrogate decision maker is her daughter and her brother. REVIEW OF SYSTEMS: There is no documented fever. She admits to having chills. There is no double vision. There is no ear discharge. She denies having any rhinorrhea. There has been no sore throat. No thyroid enlargement. There is epigastric discomfort and burning up into the chest per my HPI. There has been no shortness of breath. She does admit to having again the upper abdominal discomfort. She denies any dysuria. No frequency. No seizure. No loss of consciousness. No pruritus. No skin ulcerations. Review of 14 systems completed, all others negative. PHYSICAL EXAMINATION GENERAL: At this time, Mrs. Prasad is a 62-year-old female patient. She is sitting in the ED stretcher. She does not appear to be in any acute distress. She is well developed, well nourished. VITAL SIGNS: Blood pressure 174/104, pulse 67, respirations 13, O2 sat 93%, temperature 99.9. HEENT: Head: Atraumatic, normocephalic. Eyes: EOMs are intact. Sclerae are anicteric and not pale. Throat: Oral mucosa appears to be dry. No oropharyngeal erythema. NECK: Supple. LUNGS: Clear to auscultation bilaterally. No wheezes, rales, or rhonchi. HEART: Sounds S1, S2. Regular rate and rhythm. No murmurs, rubs, or gallops. ABDOMEN: Soft. It was flat. It was nondistended. Bowel sounds were present. She is tender in the epigastric and the right upper quadrant area. EXTREMITIES: Pulses are 2+ throughout. She had no peripheral edema. She is able to move all 4 extremities with 5/5 strength. NEUROLOGIC: She is awake, alert, and oriented x3. Tongue midline. Slot [place] Person were equal. No gross focal deficits. SKIN: Intact. DIAGNOSTIC STUDIES/LAB DATA: WBC of 8.3, RBC of 5.24, hemoglobin of 15.2, hematocrit of 45, platelet count of 255. INR was 0.90, PTT of 32.8. Sodium was 130, potassium was 3.8, chloride 100, bicarb 20, BUN 16, creatinine 0.62, glucose 91, lactate 0.6, calcium 9, mag 1.8. Total bili 0.4, AST 15, ALT 7, alk phos 69, ammonia 34. CK 24, CK-MB 0.9. Troponin 0.01. CRP is 6.7. BNP of 70. Albumin of 3.9. TSH normal. Lipase less than 10. Urine showed 1+ bacteria, 2+ leukocyte esterase, 1+ wbc, 1+ blood. Flu swab negative. The patient did have a CT abdomen and pelvis, impression: Chronic obstructive pulmonary disease, coronary artery calcifications, distended gallbladder without additional CT abnormality correlated with clinical assessment and consider right upper quadrant ultrasound for further assessment due to small hiatal hernia. Negative for obstructive uropathy, lumbar, sacral spine degenerative spondylosis and facet joint arthritis is noted. Chest x-ray obtained today, impression: Stigmata of chronic obstructive lung disease. No acute cardiopulmonary process evident. There is an EKG obtained today. I did review it to the previous EKGs. It shows a normal sinus rhythm with LVH. No ST elevations. She had PACs. She did have a little bit of depression in V6. She has had this in the past. Again , the EKG to me appears to be unchanged from her previous EKGs. Old medical records were reviewed. ASSESSMENT AND PLAN: Mrs. Prasad is a 62-year-old female patient with multiple medical problems, coming into the ED today with complaints of chest discomfort, abdominal pain with nausea. We were asked to evaluate for admission. She will be admitted under observation status for: 1. Epigastric pain and nausea. Again at this time, her G-tube site appears to be benign and the G-tube does appear to be functioning properly. It has been flushing and she has not had any issues at home with flushing or any pain with her Jevity infusions. My plan would be to ultrasound the gallbladder because I am concerned that it is distended. She has no white count here, no fever. She does have an urinary tract infection which could be contributing to some of her generalized weakness, not feeling well. So, I am going to put her on Rocephin. We will hydrate the patient. She will be on clear liquid diet after the ultrasound of course and we will continue with supportive care in the form of antiemetics and pain medications. We will continue to follow. 2. Coronary artery disease. We will continue meds as prescribed. She is having chest pain, but is atypical. I will cycle her troponins and place her on telemetry. 3. History of deep vein thrombosis and pulmonary embolism. I will put her on heparin subcu. 4. Hyperlipidemia. Continue meds as prescribed. 5. Hypertension. She has not taken any medication. She does appear to have hypertensive urgency. I have ordered p.r.n. hydralazine. We will restart her amlodipine now. We will follow. 6. Fernández's. Continue PPI therapy. 7. History of breast cancer. Follow up with primary care provider. 8. History of transient ischemic attack. Consider significant prevention. 9. DVT prophylaxis. Again, she will be placed on heparin subcu. 10. Code status: Full code. 11. Fluids, electrolytes, and nutrition. She is n.p.o., pending the ultrasound and if this is negative, she can have clear liquid diet. TIME SPENT: On the admission was 60 minutes, greater than half of the time was spent [id number] with the patient obtaining my history and physical, other half the time spent going over the plan of care with the patient and implementing the plan of care. I did discuss the plan of care with my attending, Dr. Alas; she is in agreement. OBIE TAFOYA NP [id number]/[facility] #: [id number] [place]
[2018-01-13] MEDS: Acetaminophen TAB* 325 MG PO PRN (22:47)
[2018-01-14] MEDS: HYDROmorphone INJ* 2 MG/ML CARPUJECT SYRINGE IV SLOW PU PRN ×6 (01:42→22:33)
[2018-01-14] MEDS: hydrALAZINE IV* 20 MG/ML VIAL IV SLOW PU PRN (01:43)
[2018-01-14] MEDS: Ondansetron INJ* 2 MG/ML VIAL IV PRN ×4 (03:36→21:31)
[2018-01-14] MEDS: Carisoprodol TAB* 350 MG PO PRN ×3 (04:46→19:50)
[2018-01-14] MEDS: Heparin VIAL(*) 5000 UNITS/ML VIAL (FIVE THOUSAND) SUBCUT SCH ×3 (06:06→21:32)
[2018-01-14 06:28] LABS: ABS Basophils 0.1 10^3/ul (0-0.2); ABS Eosinophils 0.1 10^3/ul (0-0.6); ABS Lymphocytes 1.8 10^3/ul (1.0-4.8); ABS Monocytes 0.6 10^3/ul (0-0.8); ABS Neutrophils 6.4 10^3/ul (1.5-7.7); ABS Nucleated RBC 0 10^3/ul; Eosinophil % 0.8 % (0-6); Hematocrit 43 % (35-47); Hemoglobin 14.7 g/dl (12.0-16.0); Lymphocyte % 19.8 % (25-47); Mean Corpuscular HGB Conc 35 g/dl (31-36); Mean Corpuscular Hemoglobin 29 pg (27-31); Mean Corpuscular Volume 84 fL (80-97); Mean Platelet Volume 7.9 um3 (7.4-10.4); Nucleated Red Blood Cells % 0.1; Platelet Count 271 10^3/ul (150-450); Red Blood Count 5.06 10^6/ul (4.0-5.4); Red Cell Distribution Width 14 % (10.5-15); White Blood Count 8.9 10^3/ul (3.5-10.8)
[2018-01-14 06:44] LABS: EGFR Non-African American 105.3 (>60)
--- NOTE | 2018-01-14 07:59 | PN ---
Subjective Date of Service: 01/14/18 Interval History: Ms. Prasad reports feeling better but still having some discomfort. She is concerned because she has not tried to eat regular and worries that her symptoms will return when she does. She denies nausea. She denies chest pain or SOB. Objective Active Medications: Acetaminophen (Tylenol Tab*) 650 mg PO Q4H PRN Albuterol (Ventolin Hfa Inhaler*) 2 puff INH Q4H PRN Amlodipine Besylate (Norvasc Tab*) 10 mg PO QAM ZENA Atorvastatin Calcium (Lipitor*) 20 mg PO BEDTIME ZENA Baclofen (Lioresal Tab*) 5 mg PO TID ZENA Carisoprodol (Soma Tab*) 350 mg PO TID PRN Clopidogrel Bisulfate (Plavix Tab*) 75 mg PO QAM ZENA Diphenhydramine HCl (Benadryl Po*) 50 mg PO Q6HR PRN Heparin Sodium (Porcine) (Heparin Vial(*)) 5,000 units SUBCUT Q8HR ZENA Hydralazine HCl (Apresoline Iv*) 5 mg IV SLOW PU Q6H PRN Hydromorphone HCl (Dilaudid Inj*) 1 mg IV SLOW PU Q4H PRN Ceftriaxone Sodium 1,000 mg/ (Sodium Chloride) 10 mls @ 40 mls/hr IVPB Q24H ZENA Losartan Potassium (Cozaar Tab*) 50 mg PO DAILY ZENA Metoprolol Succinate (Toprol Xl Tab*) 50 mg PO QAM ZENA Nortriptyline HCl (Pamelor Cap*) 20 mg PO BEDTIME ZENA Ondansetron HCl (Zofran Inj*) 4 mg IV Q6H PRN Pantoprazole Sodium (Protonix Tab (Nf)) 40 mg PO BID ZENA Prochlorperazine Edisylate (Compazine Inj*) 5 mg IV Q6H PRN Vital Signs: Temp Pulse Resp BP Pulse Ox 98.3 F 71 16 165/88 96 01/14/18 03:33 01/14/18 03:33 01/14/18 06:06 01/14/18 03:33 01/14/18 03:33 Oxygen Devices in Use Now: None Appearance: Female lying in bed in NAD Eyes: No Scleral Icterus Ears/Nose/Mouth/Throat: Mucous Membranes Moist Neck: Trachea Midline Respiratory: Symmetrical Chest Expansion and Respiratory Effort, Clear to Auscultation Cardiovascular: NL Sounds; No Murmurs; No JVD, No Edema Abdominal: NL Sounds; No Tenderness; No Distention Lymphatic: No Cervical Adenopathy Extremities: No Edema Skin: No Rash or Ulcers Neurological: Alert and Oriented x 3, NL Muscle Strength and Tone Nutrition: Taking PO's Result Diagrams: 01/14/18 05:59 01/14/18 05:59 Additional Lab and Data: . Assess/Plan/Problems-Billing Assessment: Ms. Prasad is a 62 yo F with a PMH of CAD/PA, achalasia, and DVT/PE who was admitted on 01/13/18 with epigastric pain and nausea. - Patient Problems (1) Epigastric pain Comment: - Improving slowly, advance diet. - Tolerating tube feeds through G tube well. - CT abd/pelvis showed distended gallbladder, but GB US found no wall thickening or pericholecystic fluid. - No leukocytosis, LFTs normal, vitals stable other than being hypertensive. (2) Weakness Comment: - Only positive finding is of UTI, which could explain weakness. - PT ordered. (3) UTI (urinary tract infection) Comment: - Suspect UTI contributing to symptoms. - Switch to bactrim for short course, cultures showed no growth of clinically significant organisms but UA was significantly positive and with patient's weakness continue to suspect UTI. (4) Chest pain Comment: - Troponin negative - CP likely secondary to achalasia. - Continue pain medication regimen, PPI. (5) HTN (hypertension) Comment: - SBP 160-200s, believe patient missed some home meds. - Continue losartan, amlodipine and metoprolol, will adjust today as needed. PRN hydralazine available. (6) Hypokalemia Comment: - K 3.3 this AM. - Repleted. (7) Achalasia Comment: - Has G tube as is not able to tolerate adequate oral intake. - Tube exchanged in [place] recently, working appropriately. (8) CAD (coronary artery disease) Comment: - Continue clopidogrel, metoprolol. (9) COPD (chronic obstructive pulmonary disease) Comment: - No evidence of acute exacerbation. - Continue PRN albuterol. (10) HLD (hyperlipidemia) Comment: - Continue atorvastatin. (11) Tobacco use disorder Comment: - Pt advised to quit smoking and avoid second hand smoke. (12) Hx of deep venous thrombosis Comment: - Not on anticoagulation outpatient. (13) DVT prophylaxis Comment: - Heparin SQ. (14) Full code status Comment: Status and Disposition: OBV. Anticipate discharge to home when medically stable.
[2018-01-14] MEDS: CMCS: Pantoprazole TAB (NF) 40 MG TAB PO SCH ×2 (08:34→21:34)
[2018-01-14] MEDS: Baclofen TAB* 10 MG PO SCH ×3 (08:34→21:36)
[2018-01-14] MEDS: Clopidogrel TAB* 75 MG PO SCH (08:34)
[2018-01-14] MEDS: Metoprolol Succinate XL TAB* 50 MG PO SCH (08:34)
[2018-01-14] MEDS: amLODIPine TAB* 5 MG PO SCH (08:34)
[2018-01-14] MEDS: Losartan TAB* 25 MG PO SCH (08:34)
[2018-01-14] MEDS ORDERED: amLODIPine TAB* 5 MG PO SCH (09:00)
[2018-01-14] MEDS: Acetaminophen TAB* 325 MG PO PRN (11:41)
[2018-01-14] MEDS: Sulfamethox/Trimethoprim DS 800/160* TAB PO SCH (21:34)
[2018-01-14] MEDS: Nortriptyline CAP* 10 MG PO SCH (21:34)
[2018-01-14] MEDS: Atorvastatin* 20 MG TAB PO SCH (21:34)
[2018-01-15] MEDS: HYDROmorphone INJ* 2 MG/ML CARPUJECT SYRINGE IV SLOW PU PRN ×3 (03:42→11:43)
[2018-01-15] MEDS: Ondansetron INJ* 2 MG/ML VIAL IV PRN ×2 (06:03→12:39)
[2018-01-15] MEDS: Heparin VIAL(*) 5000 UNITS/ML VIAL (FIVE THOUSAND) SUBCUT SCH ×2 (06:04→13:08)
[2018-01-15] MEDS ORDERED: KCL 20 MEQ/100 ML IVPREMIX* 20 MEQ/100 ML BAG IV SCH (08:00)
[2018-01-15] MEDS: Baclofen TAB* 10 MG PO SCH ×2 (08:07→13:08)
[2018-01-15] MEDS ORDERED: Potassium Chloride IV* 40 MEQ in NS 0.9% 250 ML* 250 ML IVPB ONE (09:00)
[2018-01-15] MEDS: CMCS: Pantoprazole TAB (NF) 40 MG TAB PO SCH (09:20)
[2018-01-15] MEDS: Losartan TAB* 25 MG PO SCH (09:20)
[2018-01-15] MEDS: Clopidogrel TAB* 75 MG PO SCH (09:20)
[2018-01-15] MEDS: Sulfamethox/Trimethoprim DS 800/160* TAB PO SCH (09:20)
[2018-01-15] MEDS: amLODIPine TAB* 5 MG PO SCH (09:20)
[2018-01-15] MEDS: Carisoprodol TAB* 350 MG PO PRN (09:20)
[2018-01-15] MEDS: Metoprolol Succinate XL TAB* 50 MG PO SCH (09:20)
[2018-01-15 13:47] VITALS: BP 165/98
[2018-01-15] MEDS ORDERED: Potassium Chloride LIQUID* 20 MEQ PACKET PO ONE (14:19)
--- NOTE | 2018-01-17 12:47 | DS ---
CC: Trish Combs MD * DISCHARGE SUMMARY: DATE OF ADMISSION: 01/13/18 DATE OF DISCHARGE: 01/15/18 PRIMARY CARE PROVIDER: Trish Combs MD MY ATTENDING PHYSICIAN WHILE IN THE HOSPITAL: Paul Rosas MD * (dictated by CRISTINA Leija). PRIMARY DISCHARGE DIAGNOSES: 1. Achalasia. 2. Nausea. 3. Vomiting. 4. Epigastric pain. 5. Urinary tract infection. SECONDARY DISCHARGE DIAGNOSES: 1. Coronary artery disease. 2. Myocardial infarction. 3. Deep venous thrombosis. 4. Pulmonary embolism. 5. Hyperlipidemia. 6. Hypertension. 7. Fernández's esophagus. 8. Breast cancer. 9. Transient ischemic attack. 10. Nephrolithiasis. STUDIES DONE WHILE IN THE HOSPITAL: Pelvis CT from 01/13/18 read as chronic obstructive pulmonary disease, coronary artery calcifications, distended gallbladder without additional CT abnormality correlated with clinical assessment and consider right upper quadrant ultrasound for further assessment deemed appropriate, small hiatal hernia, negative for obstructive uropathy. Lumbosacral spine degenerative spondylosis and facet joint arthritis is clinically indicated, MRI with almost accurate assessment. Chest x-ray from 01/13/18 read as stigmata of obstructive lung disease, no acute pulmonary or cardiac process evident. Electrocardiogram from 01/13/18 shows normal sinus rhythm and PAC's. Left ventricular hypertrophy, left axis deviation, possible left atrial enlargement. QTc of 472, no other significant abnormalities. EKG from 01/14/2018 shows absence of PAC's. No significant changes. Gallbladder ultrasound from 01/13/18 read as the gallbladder appears elongated measuring 9.7 cm in length. It only measures 2.1 x 3.4 cm in cross section diameter. There is no wall thickening, pericholecystic fluid or intraluminal gallstones. The common bile duct is dilated up to 8 mm, which is slightly above normal for a woman of this age. MEDICATIONS AT DISCHARGE: 1. Vitamin B12, 1000 mcg IM monthly. 2. Soma 350 mg p.o. t.i.d. as needed. 3. Omeprazole 40 mg p.o. b.i.d. 4. Compazine 10 mg p.o. b.i.d. as needed. 5. Amlodipine 10 mg p.o. q.a.m. 6. Clopidogrel 75 mg p.o. q.a.m. 7. Diphenhydramine 50 mg p.o. q.6 hours as needed. 8. Morphine sulfate 60 mg p.o. b.i.d. as needed. 9. Zofran ODT 4 mg p.o. q.8 hours as needed. 10. Nitroglycerin 0.4 mg sublingual q.5 minutes as needed. 11. Metoprolol succinate 50 mg p.o. q.a.m. 12. Simvastatin 40 mg p.o. bedtime. 13. Losartan 50 mg p.o. daily. 14. Nortriptyline 20 mg p.o. bedtime. 15. Baclofen 5 mg p.o. t.i.d. 16. Lidocaine 1 application topical daily as needed. 17. EpiPen 0.3 mg IM once as needed. 18. Ergocalciferol 50,000 units p.o. weekly. 19. Jevity 5 cans G-tube daily. 20. Morphine sulfate 15 mg p.o. q.4 hours as needed. 21. Albuterol inhalation 2 puffs inhalation q.4 hours as needed. 22. Ketotifen fumarate 1 drop both eyes b.i.d. as needed. 23. Morphine oral solution 1.25 mL sublingual q.2 hours as needed. 24. Bactrim double strength 1 tab p.o. b.i.d. x6 tablets. New medications at discharge: Bactrim. Medications discontinued at discharge: None. HOSPITAL COURSE: This is a brief summary of the patient's presentation. For more details, please see the history and physical from Obie Tafoya NP, on . In brief, the patient is a 62-year-old female with a past medical history significant for the above who recently had her G-tube changed out at [facility] and has been nauseated and had epigastric discomfort since then. The patient has been able to tolerate Jevity, had burning epigastric discomfort, which was uncontrolled with p.o. medications. She came to the emergency department. She has no other symptoms of infection including URI symptoms, UTI symptoms or swelling around her G-tube. The patient was admitted to the hospital, had a gallbladder ultrasound as above showing no signs of acute cholecystitis. The patient had what appears to be urinary tract infection that could be contributing to her nausea and weakness and was started on Rocephin. The patient was started on antiemetics and pain medications IV. The patient improved slightly from 01/13/18 to 01/14/18, but it was still felt like she could not cope at home without being able to take her medications. She was able to advance her diet to clear liquid, but not to have normal food. The patient was switched to Bactrim without side effects. The patient had no other complaints. The patient's potassium was low and was replaced with IV. The patient had no other significant laboratory abnormalities during her hospitalization. The patient had a CRP of 6.71. The patient had no growth of clinically significant organisms on her urinalysis, but will be continued on Bactrim any ways, the patient felt much better and back to her baseline on 01/16, felt able to control her pain with oral medication and felt like she would be able to cope at home. The patient was amenable to discharge on her home medication regimen as well as Bactrim. PHYSICAL EXAMINATION ON THE DAY OF DISCHARGE: General: The patient is a 62- year- old female who appears older than stated age and is sitting in bed, in no acute distress. Vital Signs at the time of discharge: Temperature 98.2, pulse rate is 66, respiratory rate 16, oxygen saturation 96% on room air, blood pressure 165/98. HEENT: Head normocephalic, atraumatic. Sclerae anicteric. No conjunctival injection. Nasal mucosa moist. Oral mucosa moist. No pharyngeal erythema, discharge or exudate. Neck: Supple, nontender, no lymphadenopathy. No carotid bruits auscultated. No JVD. Cardiac: Regular rate and rhythm. No clicks, murmurs, gallops, or rubs. Pulses 2+ in the bilateral dorsalis pedis and posterior tibialis and radial areas. No lower extremity edema or calf tenderness noted. Respiratory: Clear to auscultation bilaterally. No wheezes, rales, or rhonchi. Good air exchange bilaterally. Abdomen: Soft, tender to palpation over the epigastrium. Nondistended. G- tube present without signs of inflammation. No hepatosplenomegaly. Goldstein sign negative. No abdominal bruits auscultated. Genitourinary: No suprapubic or CVA tenderness. Skin: Clean, dry, intact. No rash or infection. Neuro: Cranial nerves II through XII intact. No focal deficits. Alert and oriented x3. Psychiatric: Pleasant and cooperative. LABORATORY DATA ON DISCHARGE: White blood cell count 8.9, hemoglobin 14.7, hematocrit 43, platelet count 271,000. Sodium 133, potassium 3.3, chloride 103 , carbon dioxide 19, anion gap 11, BUN 10, creatinine 0.56, calcium 8.5, bilirubin 0.5, direct bilirubin 1.0, indirect bilirubin 1.4. AST 13, ALT 8, alkaline phosphatase 61, albumin 3.7, globulin 3.5, total protein 7.2. Laboratory data of note from admission; CRP on admission 3.71, magnesium 1.8, sodium 130. DISCHARGE PLAN: The patient will be discharged to home and resumed on her previous home medications plus Bactrim for a short course treatment for her uncomplicated urinary tract infection. The patient will follow up with her surgeon as scheduled. The patient will follow up with her primary care provider within 1 week. The patient should continue with her Jevity and antiemetics as tolerated. The patient is to take all her medications as tolerated. The patient should return to the hospital for inability to take her medications, inability to maintain adequate oral intake, intractable nausea, chest pain, shortness of breath, or other alarming symptoms. The patient should engage in activities as tolerated and have a regular unrestricted diet focusing on foods that do not exacerbate her nausea. TIME SPENT: Approximately 60 minutes was spent on this discharge, 30 of which was spent [id number] with the patient obtaining history and physical and discussing treatment plan. CRISTINA LEIJA [id number]/[facility] #: [id number] [place]
== END 2018-01-15 14:54 | disposition home or self-care (01) ==
LOC: ED 12:38 → MEDTELE 16:43
PROVIDERS: ADMIT Internal Medicine; ATTEND Internal Medicine
DX: K22.0 Achalasia of cardia (principal); R10.13 Epigastric pain; R53.1 Weakness; N39.0 Urinary tract infection, site not specified; R07.9 Chest pain, unspecified; I10 Essential (primary) hypertension; E87.6 Hypokalemia; I25.10 Atherosclerotic heart disease of native coronary artery without angina pectoris; J44.9 Chronic obstructive pulmonary disease, unspecified; E78.5 Hyperlipidemia, unspecified; I25.2 Old myocardial infarction; R11.2 Nausea with vomiting, unspecified; Z86.718 Personal history of other venous thrombosis and embolism; Z79.01 Long term (current) use of anticoagulants; Z86.711 Personal history of pulmonary embolism; Z85.3 Personal history of malignant neoplasm of breast; Z86.73 Personal history of transient ischemic attack (TIA), and cerebral infarction without residual deficits; Z98.61 Coronary angioplasty status; Z72.0 Tobacco use
CPT/HCPCS: 36415; 71045; 74176; 76705; 80048; 80053; 80076; 81003; 81015; 82140; 82550; 82553; 83605; 83690; 83735; 83880; 84443; 84484; 85025; 85610; 85730; 86140; 87086; 87502; 93005; 96374; 96375; 99282; 99406; A9270-GY; G8978-GP-CI; G8979-GP-CI; G8980-GP-CI; J0360; J0696; J0780; J1170; J1644; J2270; J2405; J3475; J3480

== ENCOUNTER 2018-02-11 12:39 | Emergency (ER) | payer OTHER ==
[2018-02-11] MEDS ORDERED: NS 0.9% 1000 ML* 1,000 ML IV ONE (13:16)
[2018-02-11 14:08] LABS: ABS Basophils 0.1 10^3/ul (0-0.2); ABS Eosinophils 0 10^3/ul (0-0.6); ABS Monocytes 0.5 10^3/ul (0-0.8); ABS Neutrophils 5.3 10^3/ul (1.5-7.7); ABS Nucleated RBC 0 10^3/ul; Eosinophil % 0.6 % (0-6); Hematocrit 41 % (35-47); Hemoglobin 14.1 g/dl (12.0-16.0); Lymphocyte % 25.8 % (25-47); Mean Corpuscular HGB Conc 34 g/dl (31-36); Mean Corpuscular Hemoglobin 30 pg (27-31); Mean Corpuscular Volume 86 fL (80-97); Mean Platelet Volume 7.6 um3 (7.4-10.4); Nucleated Red Blood Cells % 0.1; Platelet Count 279 10^3/ul (150-450); Red Blood Count 4.77 10^6/ul (4.0-5.4); Red Cell Distribution Width 14 % (10.5-15); White Blood Count 7.9 10^3/ul (3.5-10.8)
[2018-02-11 14:15] LABS: INR 0.87 (0.77-1.02)
[2018-02-11 14:31] LABS: EGFR Non-African American 92.1 (>60)
[2018-02-11] MEDS ORDERED: Ondansetron INJ* 2 MG/ML VIAL IV ONE (14:32)
[2018-02-11] MEDS ORDERED: HYDROmorphone INJ* 1 MG/ML CARPUJECT SYRINGE IV ONE (14:32)
[2018-02-11] MEDS ORDERED: HYDROmorphone INJ* 2 MG/ML CARPUJECT SYRINGE ONE (14:37)
[2018-02-11] MEDS ORDERED: HYDROmorphone INJ* 2 MG/ML CARPUJECT SYRINGE IV SLOW PU ONE (14:41)
--- NOTE | 2018-02-11 14:45 | RAD ---
Indication: Chest pain. Cardiac disease and COPD. History of RIGHT breast cancer. Post bilateral mastectomy. Comparison: January 13, [address] and chest radiograph. Technique: Upright AP 1425 hours Report: Accounting for superimposed opacity from the RIGHT breast prosthesis the lungs and pleural spaces are clear. Elevated lung volumes with rarefaction of the interstitial markings. Negative for pneumothorax. Negative for cardiomegaly. Unremarkable central pulmonary vasculature. Mildly tortuous descending thoracic aorta. IMPRESSION: 1. Stigmata of chronic obstructive pulmonary disease. 2. No acute cardiopulmonary process evident.
[2018-02-11] MEDS ORDERED: Pantoprazole IV* 40 MG IV ONE (17:12)
[2018-02-11] MEDS ORDERED: Sucralfate TAB* 1 GM PO ONE (17:12)
[2018-02-11] MEDS ORDERED: Morphine INJ* 4 MG/ML 1 ML CARPUJECT IV ONE (18:27)
[2018-02-11] MEDS ORDERED: Morphine VIAL* 4 MG/ML VIAL (1 ml vial) IV ONE ×2 (18:31→18:33)
[2018-02-11 20:41] VITALS: BP 181/101
--- NOTE | 2018-02-11 20:57 | ED ---
Dora Chatterjee Thomas, scribed for Marc Barnett MD on 02/11/18 at 1328 . Complex/Multi-Sys Presentation - HPI Summary HPI Summary: The patient is a 63 year old female brought in by ambulance with weakness and malaise for the last three days. She describes crawling on the ground because she was so weak. She also complains of a burning chest pain and nausea. The patient has a J-tube, which she has not been using because she reports it was too hard to do. Past medical history includes WI and achalasia. - History Of Current Complaint Chief Complaint: EDChestPainROMI Time Seen by Provider: 02/11/18 12:42 Hx Obtained From: Patient Onset/Duration: Lasting Days - 3, Still Present Timing: Constant Severity Initially: Moderate Aggravating Factor(s): None Alleviating Factor(s): None Associated Signs And Symptoms: Positive: Other - Weakness, malaise, chest pain, nausea Related History: Other - Hx of WI, achalasia - Allergies/Home Medications Allergies/Adverse Reactions: Allergies Allergy/AdvReac Type Severity Reaction Status Date / Time Adhesive Tape Allergy Severe Itching Verified 01/08/18 10:44 bee venom protein (honey bee) Allergy Severe Anaphylatic Verified 01/08/18 10:44 Shock chlorhexidine Allergy Severe Rash And Verified 01/08/18 10:44 Itching Iodinated Contrast- Oral and Allergy Severe Anaphylatic Verified 01/08/18 10:44 IV Dye Shock iodine Allergy Severe Anaphylatic Verified 01/08/18 10:44 Shock latex Allergy Severe Hives Verified 01/08/18 10:44 NSAIDS (Non-Steroidal Allergy Severe Hives Verified 01/08/18 10:44 Anti-Inflamma onabotulinumtoxinA Allergy Severe Anaphylatic Verified 01/08/18 10:44 [From Botox] Shock Penicillins Allergy Severe Anaphylatic Verified 01/08/18 10:44 Shock povidone-iodine Allergy Severe Itching Verified 01/08/18 10:44 shellfish derived Allergy Severe Anaphylatic Verified 01/08/18 10:44 Shock albumin colloid, human Allergy Anaphylatic Verified 01/08/18 10:44 Shock ENVIRONMENTAL/SEASONAL Allergy Intermediate ITCHY,WATERY Uncoded 11/26/17 07:01 HAYFEVER EYES, SNEEZE, CONGESTION PMH/Surg Hx/FS Hx/Imm Hx Endocrine/Hematology History: Reports: Hx Anticoagulant Therapy - plavix, Hx Anemia - possible Denies: Hx Diabetes, Hx Thyroid Disease Cardiovascular History: Reports: Hx Angina, Hx Coronary Artery Disease - 2 stents, Hx Deep Vein Thrombosis, Hx Embolism, Hx Hypercholesterolemia, Hx Hypertension - on meds, Hx Myocardial Infarction, Hx Syncope, Other Cardiovascular Problems/Disorders - cardiac cath Denies: Hx Congestive Heart Failure, Hx Pacemaker/ICD, Hx Valvular Heart Disease Respiratory History: Reports: Hx Chronic Obstructive Pulmonary Disease (COPD) - Pt denies though providers have diagnosed it, Hx Pneumonia, Hx Pulmonary Embolism - 30 yrs ago, Hx Seasonal Allergies, Other Respiratory Problems/ Disorders - SMOKER Denies: Hx Asthma, Hx Sleep Apnea GI History: Reports: Hx Diverticulosis, Hx Gastroesophageal Reflux Disease, Hx Hiatal Hernia - 3 surgeries, Other GI Disorders - achalasia, Fernández's esophagus , Denies: Hx Ulcer History: Reports: Hx Kidney Infection, Hx Kidney Stones - LAST 12/2015- NO PROBLEMS SINCE PER PATIENT Denies: Hx Dialysis, Hx Renal Disease, Other Problems/Disorders Musculoskeletal History: Reports: Hx Back Problems - L1 fx, Other Musculoskeletal History - L1 fx Denies: Hx Arthritis, Hx Osteoporosis Sensory History: Reports: Hx Cataracts - maryuri, Hx Contacts or Glasses Denies: Hx Hearing Aid Opthamlomology History: Reports: Hx Cataracts - maryuri, Hx Contacts or Glasses Neurological History: Reports: Hx Spinal Cord Injury - L1, Hx Transient Ischemic Attacks (TIA), Other Neuro Impairments/Disorders - POSSIBLE SMALL TIA'S - 3 yrs ago Psychiatric History: Reports: Hx Anxiety Denies: Hx Panic Disorder - Cancer History Cancer Type, Location and Year: RT BREAST CA, 2009 HAD A BILATERAL MASTECTOMY Hx Chemotherapy: No Hx Radiation Therapy: No - Surgical History Surgery Procedure, Year, and Place: RT LUMPECTOMY 02/2010, BILATERAL MASTECTOMY ,. 2001& 2002 CARDIAC STENT AT [facility] IN [place],. LEFT KNEE SURGERY X10,. BILATERAL SHOULDER SURGERY,. ESPOHOGEAL SURGERY,1996, 2014. failed breast implant on left. PARTIAL HYSTERECTOMY, 1976. APPENDIX A CHILD,. CHEST TUBE, 1996. ESOPHAGEAL DILATION. NISSIN FUNDOLPICATION multiple Hx Anesthesia Reactions: No - Immunization History Date of Tetanus Vaccine: up to date Date of Influenza Vaccine: 06/2016 Infectious Disease History: No Infectious Disease History: Reports: Hx Clostridium Difficile Denies: Hx Hepatitis, Hx Human Immunodeficiency Virus (HIV), Hx of Known/ Suspected MRSA, Hx Shingles, Hx Tuberculosis, Hx Known/Suspected VRE, Hx Known/ Suspected VRSA, History Other Infectious Disease, Traveled Outside the US in Last 30 Days - Family History Known Family History: Positive: Cardiac Disease - Father, 2 brothers - [place]. Mother - AFIB, Hypertension, Diabetes - Social History Alcohol Use: None Hx Substance Use: No Substance Use Type: Reports: None Substance Use Comment - Amount & Last Used: prescribed Hx Tobacco Use: Yes Smoking Status (MU): Current Every Day Smoker Type: Cigarettes Amount Used/How Often: 1/2 PPD Length of Time of Smoking/Using Tobacco: 40+ YEARS Have You Smoked in the Last Year: Yes Review of Systems Positive: Skin Diaphoresis - Weakness, malaise, Other - W Positive: Chest Pain Positive: Nausea All Other Systems Reviewed And Are Negative: Yes Physical Exam - Summary Physical Exam Summary: Appearance: The patient is well-nourished in no acute distress and in no acute pain. Skin: The skin is warm and dry and skin color reflects adequate perfusion. The skin is tenting a little bit. HEENT: The head is normocephalic and atraumatic. The pupils are equal and reactive. The conjunctivae are clear and without drainage. Nares are patent and without drainage. Mouth reveals dry mucous membranes and the throat is without erythema and exudate. The external ears are intact. The ear canals are patent and without drainage. The tympanic membranes are intact. Neck: the neck is supple with full range of motion and non-tender. There are no carotid bruits. There is no neck vein distension. Respiratory: Chest is non-tender. There are crackles in both bases. Cardiovascular: Heart is regular rate and rhythm. There is no murmur or rub auscultated. There is no peripheral edema and pulses are symmetrical and equal. Abdomen: The abdomen is soft and non-tender. There are normal bowel sounds heard in all four quadrants and there is no organomegaly palpated. Musculoskeletal: There is no back tenderness noted. Extremities are non-tender with full range of motion. There is good capillary refill. There is no peripheral edema or calf tenderness elicited. Neurological: Patient is alert and oriented to person, place and time. The patient has symmetrical motor strength in all four extremities. Cranial nerves are grossly intact. Deep tendon reflexes are symmetrical and equal in all four extremities. Psychiatric: The patient has an appropriate affect and does not exhibit any anxiety or depression. Triage Information Reviewed: Yes Vital Signs On Initial Exam: Initial Vitals Temp Pulse Resp BP Pulse Ox 99.9 F 85 18 159/97 97 02/11/18 12:46 02/11/18 12:46 02/11/18 12:46 02/11/18 12:46 02/11/18 12:46 Vital Signs Reviewed: Yes Diagnostics - Vital Signs Vital Signs Temp Pulse Resp BP Pulse Ox 02/11/18 13:00 81 16 97 02/11/18 12:49 85 26 97 02/11/18 12:46 99.9 F 85 18 159/97 97 - Laboratory Lab Results: Lab Results 02/11/18 02/11/18 02/11/18 Range/Units 13:55 13:55 13:55 WBC 7.9 (3.5-10.8) 10^3/ul RBC 4.77 (4.0-5.4) 10^6/ul Hgb 14.1 (12.0-16.0) g/dl Hct 41 (35-47) % MCV 86 (80-97) fL MCH 30 (27-31) pg MCHC 34 (31-36) g/dl RDW 14 (10.5-15) % Plt Count 279 (150-450) 10^3/ul MPV 7.6 (7.4-10.4) um3 Neut % (Auto) 66.4 (38-83) % Lymph % (Auto) 25.8 (25-47) % [place] % (Auto) 6.0 (0-7) % Eos % (Auto) 0.6 (0-6) % Baso % (Auto) 1.2 (0-2) % Absolute Neuts (auto) 5.3 (1.5-7.7) 10^3/ul Absolute Lymphs (auto) 2.0 (1.0-4.8) 10^3/ul Absolute Monos (auto) 0.5 (0-0.8) 10^3/ul Absolute Eos (auto) 0 (0-0.6) 10^3/ul Absolute Basos (auto) 0.1 (0-0.2) 10^3/ul Absolute Nucleated RBC 0 10^3/ul Nucleated RBC % 0.1 INR (Anticoag Therapy) (0.77-1.02) Sodium 133 L (139-145) mmol/L Potassium 3.9 (3.5-5.0) mmol/L Chloride 102 (101-111) mmol/L Carbon Dioxide 23 (22-32) mmol/L Anion Gap 8 (2-11) mmol/L BUN 20 (6-24) mg/dL Creatinine 0.65 (0.51-0.95) mg/dL Est GFR ( Amer) 118.4 (>60) Est GFR (Non-Af Amer) 92.1 (>60) BUN/Creatinine Ratio 30.8 H (8-20) Glucose 93 (70-100) mg/dL Lactic Acid (0.5-2.0) mmol/L Calcium 8.5 L (8.6-10.3) mg/dL Magnesium 2.1 (1.9-2.7) mg/dL Total Bilirubin 0.40 (0.2-1.0) mg/dL AST 17 (13-39) U/L ALT 10 (7-52) U/L Alkaline Phosphatase 43 (34-104) U/L Troponin I 0.01 (<0.04) ng/mL B-Natriuretic Peptide 28 ( - 100) pg/mL Total Protein 7.1 (6.4-8.9) g/dL Albumin 3.7 (3.2-5.2) g/dL Globulin 3.4 (2-4) g/dL Albumin/Globulin Ratio 1.1 (1-3) TSH 0.57 (0.34-5.60) mcIU/mL 02/11/18 02/11/18 02/11/18 Range/Units 13:55 13:55 18:42 WBC (3.5-10.8) 10^3/ul RBC (4.0-5.4) 10^6/ul Hgb (12.0-16.0) g/dl Hct (35-47) % MCV (80-97) fL MCH (27-31) pg MCHC (31-36) g/dl RDW (10.5-15) % Plt Count (150-450) 10^3/ul MPV (7.4-10.4) um3 Neut % (Auto) (38-83) % Lymph % (Auto) (25-47) % [place] % (Auto) (0-7) % Eos % (Auto) (0-6) % Baso % (Auto) (0-2) % Absolute Neuts (auto) (1.5-7.7) 10^3/ul Absolute Lymphs (auto) (1.0-4.8) 10^3/ul Absolute Monos (auto) (0-0.8) 10^3/ul Absolute Eos (auto) (0-0.6) 10^3/ul Absolute Basos (auto) (0-0.2) 10^3/ul Absolute Nucleated RBC 10^3/ul Nucleated RBC % INR (Anticoag Therapy) 0.87 (0.77-1.02) Sodium (139-145) mmol/L Potassium (3.5-5.0) mmol/L Chloride (101-111) mmol/L Carbon Dioxide (22-32) mmol/L Anion Gap (2-11) mmol/L BUN (6-24) mg/dL Creatinine (0.51-0.95) mg/dL Est GFR ( Amer) (>60) Est GFR (Non-Af Amer) (>60) BUN/Creatinine Ratio (8-20) Glucose (70-100) mg/dL Lactic Acid 1.2 (0.5-2.0) mmol/L Calcium (8.6-10.3) mg/dL Magnesium (1.9-2.7) mg/dL Total Bilirubin (0.2-1.0) mg/dL AST (13-39) U/L ALT (7-52) U/L Alkaline Phosphatase (34-104) U/L Troponin I 0.01 (<0.04) ng/mL B-Natriuretic Peptide ( - 100) pg/mL Total Protein (6.4-8.9) g/dL Albumin (3.2-5.2) g/dL Globulin (2-4) g/dL Albumin/Globulin Ratio (1-3) TSH (0.34-5.60) mcIU/mL Result Diagrams: 02/11/18 13:55 02/11/18 13:55 Lab Statement: Any lab studies that have been ordered have been reviewed, and results considered in the medical decision making process. - Radiology CXR Xray Interpretation: No Acute Changes - IMPRESSION: 1. Stigmata of chronic obstructive pulmonary disease. 2. No acute cardiopulmonary process evident. Dr. Rosas has reviewed this report. Radiology Interpretation Completed By: Radiologist - EKG 12:43 Cardiac Rate: NL EKG Rhythm: Sinus Rhythm - at 84 BPM EKG Interpretation: Probable LVH. Inferior Q waves of undeterminate etiology. Complex Multi-Symp Course/Dx Course Of Treatment: Ms. Prasad presented C/O generalized weakness and chest pain for several days. She has a J-tube for achalasia and hasn't had the energy to use it. Her exam was unremarkable and her labs WNL. She had two ECGs and two troponins that were WNL. She felt better after hydration and pain medications. - Diagnoses Provider Diagnoses: Chest pain, Weakness Discharge - Sign-Out/Discharge Documenting (check all that apply): Discharge/Admit/Transfer - Discharge Plan Condition: Stable Disposition: HOME Patient Education Materials: Chest Pain (ED) Referrals: Trish Combs MD [Primary Care Provider] - 2 Days Additional Instructions: Follow up with your primary care physician in one to two days. Return to the emergency department for any new or worsening symptoms. - Billing Disposition and Condition Condition: STABLE Disposition: HOME The documentation as recorded by the Dora vays Thomas accurately reflects the service I personally performed and the decisions made by me, Marc Barnett MD.
== END 2018-02-11 20:15 | disposition home or self-care (01) ==
LOC: ED 12:39
DX: R07.9 Chest pain, unspecified (principal); R53.1 Weakness; R11.0 Nausea; I25.2 Old myocardial infarction
CPT/HCPCS: 36415; 71045; 80053; 83605; 83735; 83880; 84443; 84484; 85025; 85610; 93005; 99284; A9270-GY; J1170; J2270; J2405

== ENCOUNTER 2018-02-13 15:00 | Emergency (ER) | payer OTHER ==
[2018-02-13] MEDS ORDERED: NS 0.9% 1000 ML* 1,000 ML IV ONE (20:51)
[2018-02-13] MEDS ORDERED: Ondansetron INJ* 2 MG/ML VIAL IV ONE (20:53)
[2018-02-13] MEDS ORDERED: Morphine VIAL* 10 MG/ML 1 ML VIAL IV ONE ×2 (20:53→22:17)
[2018-02-13 20:56] LABS: Urine Appearance Cloudy; Urine Blood 1+ (Negative); Urine Color Yellow; Urine Ketones Trace (Negative); Urine Protein 1+(30 mg/dL) (Negative); Urine Specific Gravity 1.013 (1.010-1.030); Urine Urobilinogen Negative (Negative)
[2018-02-13] MEDS ORDERED: Morphine VIAL* 4 MG/ML VIAL (1 ml vial) IV ONE (21:27)
--- NOTE | 2018-02-13 21:40 | RAD ---
Indication: Chest pain. Single frontal view of the chest performed at 2119 was reviewed. Comparison is made with previous exam dated February 11, 2018. No mediastinal shift is noted. Heart is of normal size and configuration. Lung rivas appear clear. Presumed right breast implant is noted. IMPRESSION: NO ACTIVE CARDIOPULMONARY DISEASE IS NOTED.
[2018-02-13 21:43] LABS: ABS Basophils 0.1 10^3/ul (0-0.2); ABS Eosinophils 0 10^3/ul (0-0.6); ABS Lymphocytes 1.4 10^3/ul (1.0-4.8); ABS Monocytes 0.6 10^3/ul (0-0.8); ABS Neutrophils 6.4 10^3/ul (1.5-7.7); ABS Nucleated RBC 0 10^3/ul; Eosinophil % 0.1 % (0-6); Hematocrit 39 % (35-47); Hemoglobin 13.8 g/dl (12.0-16.0); Lymphocyte % 16.8 % (25-47); Mean Corpuscular HGB Conc 35 g/dl (31-36); Mean Corpuscular Hemoglobin 30 pg (27-31); Mean Corpuscular Volume 84 fL (80-97); Mean Platelet Volume 7.9 um3 (7.4-10.4); Nucleated Red Blood Cells % 0; Platelet Count 316 10^3/ul (150-450); Red Blood Count 4.67 10^6/ul (4.0-5.4); Red Cell Distribution Width 14 % (10.5-15); White Blood Count 8.5 10^3/ul (3.5-10.8)
[2018-02-13 21:47] LABS: INR 0.9 (0.77-1.02)
--- NOTE | 2018-02-13 21:56 | ED ---
HPI Chest Pain - HPI Summary HPI Summary: Complains of acute on chronic sternal chest pain, N/V, mild diffuse abdo pain 3 days. History of sternal chest pain with associated N/V 5 years, but states chest pain is now constant and has been getting worse the past 3 days. CP described as burning, pressure, constant, no radiation. Patient states new level CP not controlled by home pain meds (morphine in liquid and ER), and past three days nausea not controlled by home Rx Zofran. Seen here 02/11 for same symptoms. On 02/11 symptoms resolved here in the ED, labs and imaging within normal limits. Denies fever, cough, sore throat, SOB, change in urine or BM. Medical history is achalasia, [place] 2, a chill D, TIA, HTN, CVA. Positive smoker abdominal/pelvic surgical history is appendectomy, total hysterectomy. - History of Current Complaint Chief Complaint: EDNauseaVomitDiarrh Time Seen by Provider: 02/13/18 20:27 Hx Obtained From: Patient Onset/Duration: Started Days Ago Timing: Constant Initial Severity: Moderate Current Severity: Severe Pain Intensity: 10 Pain Scale Used: 0-10 Numeric Chest Pain Location: Mid Sternal Chest Pain Radiates: No Character: Burning, Pressure/Squeezing Aggravating Factor(s): Nothing Alleviating Factor(s): Nothing Associated Signs and Symptoms: Positive: Chest Pain, Nausea, Vomiting - Risk Factors Pulmonary Embolism Risk Factors: Smoking TAD Risk Factors: Smoking, Hypertension AMI/ACS Risk Factors: Myocardial Infarction, Hypertension, Smoking, Dyslipidemia - Additional Pertinent History Primary Care Physician: [id number] - Allergy/Home Medications Allergies/Adverse Reactions: Allergies Allergy/AdvReac Type Severity Reaction Status Date / Time Adhesive Tape Allergy Severe Itching Verified 02/13/18 15:06 bee venom protein (honey bee) Allergy Severe Anaphylatic Verified 02/13/18 15:06 Shock chlorhexidine Allergy Severe Rash And Verified 02/13/18 15:06 Itching Iodinated Contrast- Oral and Allergy Severe Anaphylatic Verified 02/13/18 15:06 IV Dye Shock iodine Allergy Severe Anaphylatic Verified 02/13/18 15:06 Shock latex Allergy Severe Hives Verified 02/13/18 15:06 NSAIDS (Non-Steroidal Allergy Severe Hives Verified 02/13/18 15:06 Anti-Inflamma onabotulinumtoxinA Allergy Severe Anaphylatic Verified 02/13/18 15:06 [From Botox] Shock Penicillins Allergy Severe Anaphylatic Verified 02/13/18 15:06 Shock povidone-iodine Allergy Severe Itching Verified 02/13/18 15:06 shellfish derived Allergy Severe Anaphylatic Verified 02/13/18 15:06 Shock albumin colloid, human Allergy Anaphylatic Verified 02/13/18 15:06 Shock ENVIRONMENTAL/SEASONAL Allergy Intermediate ITCHY,WATERY Uncoded 02/13/18 15:06 HAYFEVER EYES, SNEEZE, CONGESTION PMH/Surg Hx/FS Hx/Imm Hx Endocrine/Hematology History: Reports: Hx Anticoagulant Therapy - plavix, Hx Anemia - possible Denies: Hx Diabetes, Hx Thyroid Disease Cardiovascular History: Reports: Hx Angina, Hx Coronary Artery Disease - 2 stents, Hx Deep Vein Thrombosis, Hx Embolism, Hx Hypercholesterolemia, Hx Hypertension - on meds, Hx Myocardial Infarction, Hx Syncope, Other Cardiovascular Problems/Disorders - cardiac cath Denies: Hx Congestive Heart Failure, Hx Pacemaker/ICD, Hx Valvular Heart Disease Respiratory History: Reports: Hx Chronic Obstructive Pulmonary Disease (COPD) - Pt denies though providers have diagnosed it, Hx Pneumonia, Hx Pulmonary Embolism - 30 yrs ago, Hx Seasonal Allergies, Other Respiratory Problems/ Disorders - SMOKER Denies: Hx Asthma, Hx Sleep Apnea GI History: Reports: Hx Diverticulosis, Hx Gastroesophageal Reflux Disease, Hx Hiatal Hernia - 3 surgeries, Other GI Disorders - achalasia, Fernández's esophagus , Denies: Hx Ulcer History: Reports: Hx Kidney Infection, Hx Kidney Stones - LAST 12/2015- NO PROBLEMS SINCE PER PATIENT Denies: Hx Dialysis, Hx Renal Disease, Other Problems/Disorders Musculoskeletal History: Reports: Hx Back Problems - L1 fx, Other Musculoskeletal History - L1 fx Denies: Hx Arthritis, Hx Osteoporosis Sensory History: Reports: Hx Cataracts - maryuri, Hx Contacts or Glasses Denies: Hx Hearing Aid Opthamlomology History: Reports: Hx Cataracts - maryuri, Hx Contacts or Glasses Neurological History: Reports: Hx Spinal Cord Injury - L1, Hx Transient Ischemic Attacks (TIA), Other Neuro Impairments/Disorders - POSSIBLE SMALL TIA'S - 3 yrs ago Psychiatric History: Reports: Hx Anxiety Denies: Hx Panic Disorder - Cancer History Cancer Type, Location and Year: RT BREAST CA, 2009 HAD A BILATERAL MASTECTOMY Hx Chemotherapy: No Hx Radiation Therapy: No - Surgical History Surgery Procedure, Year, and Place: RT LUMPECTOMY 02/2010, BILATERAL MASTECTOMY ,. 2001& 2002 CARDIAC STENT AT [facility] IN [place],. LEFT KNEE SURGERY X10,. BILATERAL SHOULDER SURGERY,. ESPOHOGEAL SURGERY,1996, 2015. failed breast implant on left. PARTIAL HYSTERECTOMY, 1976. APPENDIX A CHILD,. CHEST TUBE, 1996. ESOPHAGEAL DILATION. NISSIN FUNDOLPICATION multiple Hx Anesthesia Reactions: No - Immunization History Date of Tetanus Vaccine: up to date Date of Influenza Vaccine: 06/2016 Infectious Disease History: No Infectious Disease History: Reports: Hx Clostridium Difficile Denies: Hx Hepatitis, Hx Human Immunodeficiency Virus (HIV), Hx of Known/ Suspected MRSA, Hx Shingles, Hx Tuberculosis, Hx Known/Suspected VRE, Hx Known/ Suspected VRSA, History Other Infectious Disease, Traveled Outside the [place] in Last 30 Days - Family History Known Family History: Positive: None, Cardiac Disease - Father, 2 brothers - [place]. Mother - AFIB, Hypertension, Diabetes - Social History Alcohol Use: None Hx Substance Use: No Substance Use Type: Reports: None Substance Use Comment - Amount & Last Used: prescribed Hx Tobacco Use: Yes Smoking Status (MU): Current Every Day Smoker Type: Cigarettes Amount Used/How Often: 1/2 PPD Length of Time of Smoking/Using Tobacco: 40+ YEARS Have You Smoked in the Last Year: Yes Review of Systems Constitutional: Negative Eyes: Negative ENT: Negative Positive: Chest Pain Respiratory: Negative Positive: Vomiting, Nausea Genitourinary: Negative Musculoskeletal: Negative Skin: Negative Neurological: Negative Psychological: Normal All Other Systems Reviewed And Are Negative: Yes Physical Exam Triage Information Reviewed: Yes Vital Signs On Initial Exam: Initial Vitals Temp Pulse Resp BP Pulse Ox 98.6 F 88 20 173/114 99 02/13/18 15:03 02/13/18 15:03 02/13/18 15:03 02/13/18 15:03 02/13/18 15:03 Vital Signs Reviewed: Yes Appearance: Positive: Well-Appearing Skin: Positive: Warm Head/Face: Positive: Normal Head/Face Inspection Eyes: Positive: Normal Neck: Positive: Supple Respiratory/Lung Sounds: Positive: Clear to Auscultation Cardiovascular: Positive: Normal Abdomen Description: Positive: Nontender Musculoskeletal: Positive: Normal Neurological: Positive: Normal Psychiatric: Positive: Normal AVPU Assessment: Alert - Wanda Coma Scale Best Eye Response: 4 - Spontaneous Best Motor Response: 6 - Obeys Commands Best Verbal Response: 5 - Oriented Coma Scale Total: 15 Diagnostics - Vital Signs Vital Signs Temp Pulse Resp BP Pulse Ox 02/13/18 21:33 20 02/13/18 17:20 98.7 F 77 16 207/108 99 02/13/18 15:03 98.6 F 88 20 173/114 99 - Laboratory Lab Results: Lab Results 02/13/18 02/13/18 02/13/18 Range/Units 20:38 21:20 21:20 WBC 8.5 (3.5-10.8) 10^3/ul RBC 4.67 (4.0-5.4) 10^6/ul Hgb 13.8 (12.0-16.0) g/dl Hct 39 (35-47) % MCV 84 (80-97) fL MCH 30 (27-31) pg MCHC 35 (31-36) g/dl RDW 14 (10.5-15) % Plt Count 316 (150-450) 10^3/ul MPV 7.9 (7.4-10.4) um3 Neut % (Auto) 75.7 (38-83) % Lymph % (Auto) 16.8 L (25-47) % [place] % (Auto) 6.7 (0-7) % Eos % (Auto) 0.1 (0-6) % Baso % (Auto) 0.7 (0-2) % Absolute Neuts (auto) 6.4 (1.5-7.7) 10^3/ul Absolute Lymphs (auto) 1.4 (1.0-4.8) 10^3/ul Absolute Monos (auto) 0.6 (0-0.8) 10^3/ul Absolute Eos (auto) 0 (0-0.6) 10^3/ul Absolute Basos (auto) 0.1 (0-0.2) 10^3/ul Absolute Nucleated RBC 0 10^3/ul Nucleated RBC % 0 INR (Anticoag Therapy) 0.90 (0.77-1.02) Urine Color Yellow Urine Appearance Cloudy Urine pH 7.0 (5-9) Ur Specific [place] 1.013 (1.010-1.030) Urine Protein 1+(30 mg/dl) A (Negative) Urine Ketones Trace A (Negative) Urine Blood 1+ A (Negative) Urine Nitrate Negative (Negative) Urine Bilirubin Negative (Negative) Urine Urobilinogen Negative (Negative) Ur Leukocyte Esterase 3+ A (Negative) Urine WBC (Auto) 2+(11-20/hpf) A (Absent) Urine RBC (Auto) 2+(6-10/hpf) A (Absent) Ur Squamous Epith Cells Present A (Absent) Urine Bacteria Absent (Absent) Hyaline Casts Present A (Absent) Urine Glucose Negative (Negative) Result Diagrams: 02/13/18 21:20 02/13/18 21:20 Lab Statement: Any lab studies that have been ordered have been reviewed, and results considered in the medical decision making process. - Radiology cxr Xray Interpretation: No Acute Changes Radiology Interpretation Completed By: Radiologist - EKG 1 Cardiac Rate: NL EKG Rhythm: Sinus Rhythm ST Segment: Non-Specific Ectopy: None EKG Interpretation: new T-wave inversion in V2, V3. New ST depression in V6. Re-Evaluation - Re-Evaluation 1 Re-Evaluation Time: 22:19 Change: Improved Comment: Nausea control, patient states CP has gone from 10/10 to 8/10 with 4 mg morphine IV. 2 Re-Evaluation Time: 22:19 Comment: Discussed patient with hospitalist Dr. Campbell, who recommended 6 hour rule out as patient has been here multiple times for similar symptoms. Changes in EKG were discussed. Chest Pain Course/Dx - Course Assessment/Plan: Labs and imaging and vital signs within normal limits. History of multiple evaluations for similar symptoms. - Diagnoses Provider Diagnoses: Chronic chest pain, UTI (urinary tract infection), Nausea & vomiting Discharge - Sign-Out/Discharge Documenting (check all that apply): Discharge/Admit/Transfer - Discharge Plan Condition: Stable Disposition: HOME Patient Education Materials: Urinary Tract Infection in Women (DC), Acute Nausea and Vomiting (ED), Chest Pain (ED) Referrals: Trish Combs MD [Primary Care Provider] - Additional Instructions: Follow-up primary care. Return to ED for any new or worsening symptoms - Billing Disposition and Condition Condition: STABLE Disposition: HOME
[2018-02-13 22:01] LABS: EGFR Non-African American 111.6 (>60)
[2018-02-13] MEDS ORDERED: hydrALAZINE IV* 20 MG/ML VIAL IV SLOW PU ONE (23:39)
[2018-02-14] MEDS ORDERED: Ciprofloxacin TAB* 500 MG PO ONE (00:08)
[2018-02-14 02:43] VITALS: BP 163/102
== END 2018-02-14 02:41 | disposition home or self-care (01) ==
LOC: ED 15:00
DX: R07.9 Chest pain, unspecified (principal); N39.0 Urinary tract infection, site not specified; R11.2 Nausea with vomiting, unspecified; F17.210 Nicotine dependence, cigarettes, uncomplicated; J44.9 Chronic obstructive pulmonary disease, unspecified; K21.9 Gastro-esophageal reflux disease without esophagitis; F41.9 Anxiety disorder, unspecified; Z85.3 Personal history of malignant neoplasm of breast
CPT/HCPCS: 36415; 71045; 80053; 81003; 81015; 83605; 83690; 83880; 84484; 85025; 85610; 86140; 87086; 93005; 96360; 96374; 96375; 96376; 99284; A9270-GY; J0360; J2270; J2405

== ENCOUNTER 2018-03-11 11:33 | Day surgery (SDC) | payer OTHER ==
[~2018-03-11 11:33] MED LIST changes: +Buffered Lidocaine 0.9% SYRIN* 5 ML/SYR SYRINGE INTRADERM ONE; +Famotidine IV* 10 MG/ML 2 ML (20 mg) IV ONE; -HYDROmorphone INJ* 1 MG/ML CARPUJECT SYRINGE IV SLOW PU ONE; -HYDROmorphone INJ* 2 MG/ML CARPUJECT SYRINGE IV SLOW PU ONE; -Metoclopramide IV* 5 MG/ML 2 ML VIAL IV SLOW PU ONE; -NS 0.9% 1000 ML* 1,000 ML IV ONE; -Ondansetron INJ* 2 MG/ML VIAL IV ONE; -Potassium Chloride LIQUID* 20 MEQ PACKET PO ONE
[2018-03-11] MEDS ORDERED: Buffered Lidocaine 0.9% SYRIN* 5 ML/SYR SYRINGE ONE (11:42)
[2018-03-11] MEDS ORDERED: Famotidine IV* 10 MG/ML 2 ML (20 mg) ONE (11:42)
[2018-03-11] MEDS ORDERED: Clindamycin 900 MG IVPREMIX(* 900 MG/50 ML SDV IV ONE (11:42)
[2018-03-11] MEDS ORDERED: Midazolam* 1 MG/ML 5 ML VIAL (5 MG) ONE (12:55)
[2018-03-11] MEDS ORDERED: fentaNYL* 50 MCG/ML 2 ML VIAL (100 MCG VIAL) ONE ×2 (12:55→15:14)
[2018-03-11] MEDS ORDERED: Lidocaine 1% INJ* 10 MG/ML 30 ML SDV ONE (13:42)
[2018-03-11] MEDS ORDERED: Propofol* 10 MG/ML 20 ML BTL IV PUSH ONE (14:05)
[2018-03-11] MEDS ORDERED: Dexamethasone IV* 4 MG/ML 1 ML (4 MG) ONE (14:05)
[2018-03-11] MEDS ORDERED: DiMENhydriNATE IV* 50 MG/ML VIAL ONE (14:05)
[2018-03-11] MEDS ORDERED: Lidocaine 2% PF * 5 ML VIAL ONE (14:06)
--- NOTE | 2018-03-11 15:07 | OP ---
Operative Report - Blank - Operative Report Date of Operation: 03/11/18 Note: Preop Dx: achalasia Postop Dx: same Procedure: powerport placement (Left cephalic vein cutdown) Anesthesia: local MAC Surgeon: Elizabeth Asst: ALONA Hernandes Fluids: EBL: none Specimen: none Drains: none Findings: dicated
[2018-03-11] MEDS ORDERED: Acetaminophen TAB* 325 MG ONE (15:11)
[2018-03-11] MEDS ORDERED: fentaNYL* 50 MCG/ML 2 ML VIAL (100 MCG VIAL) IV PRN (15:12)
[2018-03-11] MEDS ORDERED: Naloxone* 0.4 MG/ML 1 ML VIAL IV PRN (15:12)
[2018-03-11] MEDS ORDERED: Acetaminophen TAB* 325 MG PO PRN (15:12)
[2018-03-11] MEDS ORDERED: oxyCODONE TAB* 5 MG TAB PO PRN (15:12)
--- NOTE | 2018-03-11 15:20 | RAD ---
CPT II Codes: G9500 INDICATION: PowerPort placement. Approximately 17.6 seconds of fluoroscopy time was used. 3 spot images demonstrates PowerPort in the superior vena cava. IMPRESSION: Successful placement of central catheter in the superior vena cava.
[2018-03-11] MEDS ORDERED: oxyCODONE TAB* 5 MG TAB ONE (15:24)
[2018-03-11 15:37] VITALS: BP 130/79
--- NOTE | 2018-03-12 06:55 | OP ---
CC: Trish Combs MD * DATE OF OPERATION: 03/11/18 - [facility] DATE OF : 55. SURGEON: Luisito Johnson M.D. CAR DUMPER OPERATOR: None. ANESTHESIOLOGIST: Marilu Madrigal M.D. ANESTHESIA: Local MAC. PRE-OP DIAGNOSIS: Achalasia. POST-OP DIAGNOSIS: Achalasia. OPERATIVE PROCEDURE: PowerPort insertion, left cephalic vein cutdown. ESTIMATED BLOOD LOSS: Minimal. IV FLUIDS: Crystalloids. SPECIMEN: None. DRAINS: None. COMPLICATIONS: None. COUNTS: The instrument, needle, and sponge counts were correct. DESCRIPTION OF PROCEDURE: The patient was brought to the operating room and placed on the table supine. Sequential compression devices were placed on both lower extremities and intravenous sedation was administered. She was prepped and draped in the usual sterile. Then, local anesthetic was infiltrated into the skin and soft tissue. The left cephalic vein cutdown was undertaken. After incising the skin transversely over the deltopectoral triangle. Blunt dissection was used to dissect down the left cephalic vein, which was isolated with two 3-0 silk sutures. The distal portion was ligated. Next, additional anesthetic was infiltrated into the right upper chest and the pocket for the port was created using sharp and blunt dissection. An 8-Haitian PowerPort catheter was tunneled to the cephalic vein cutdown site and then venotomy was created sharply. The catheter was beveled in order to allow to pass more easily to the vein. The vein was cannulated and the catheter was inserted _ the superior vena cava and atrium. This was positioned down with fluoroscopy. A catheter was then cut at about 30 cm and connected to the port, which was then placed into the pocket. The port was accessed, it autumn and flushed easily. The wounds were then closed in two layers with 3-0 Vicryl for the subcutaneous tissue, 4-0 Monocryl for the skin edges, and Steri-Strips were used as dressings along with the Tegaderm. The patient tolerated the procedure well, was then transferred to recovery stable. [id number]/[facility] #: [id number] [facility]
== END 2018-03-11 15:47 | disposition home or self-care (01) ==
LOC: OR 11:33
PROVIDERS: ATTEND Surgery
DX: K22.0 Achalasia of cardia (principal); I10 Essential (primary) hypertension; I25.118 Atherosclerotic heart disease of native coronary artery with other forms of angina pectoris; Z72.0 Tobacco use; R07.9 Chest pain, unspecified; R55 Syncope and collapse; S21.001D Unspecified open wound of right breast, subsequent encounter; R31.9 Hematuria, unspecified; Z79.899 Other long term (current) drug therapy; M19.90 Unspecified osteoarthritis, unspecified site; Z86.73 Personal history of transient ischemic attack (TIA), and cerebral infarction without residual deficits; E46 Unspecified protein-calorie malnutrition; Z85.3 Personal history of malignant neoplasm of breast; X58.XXXD Exposure to other specified factors, subsequent encounter
CPT/HCPCS: 76000; A9270-GY; C1788; J1100; J1240; J1642; J2250; J2704; J3010

== ENCOUNTER 2018-03-16 19:05 | Inpatient (IN) | payer OTHER ==
[2018-03-16] MEDS ORDERED: NS 0.9% 1000 ML* 1,000 ML IV ONE (19:44)
--- NOTE | 2018-03-16 19:59 | RAD ---
INDICATION: Evaluate for CVA COMPARISON: CT brain January 19, 2015 TECHNIQUE: Noncontrast axial source images were acquired from the skull base to the vertex. FINDINGS: Ventricles/sulci: The ventricles and cisterns are normal in size and configuration for age. Brain parenchyma: There is mild, chronic periventricular and subcortical white matter change. Intracranial hemorrhage:None. Extra-axial spaces: There are no abnormal extra axial fluid collections or evidence of extra-axial mass. Calvarium: There is no calvarial fracture or other calvarial abnormality. Scalp: There is no evidence of scalp or extracalvarial soft tissue abnormality. Paranasal sinuses/mastoid: The paranasal sinuses and mastoid air cells are clear. Other: None. IMPRESSION: No acute intracranial findings. Mild chronic microvascular ischemic change Findings called to ED at 1955 hours
--- OUTSIDE RECORDS SUMMARY | 2018-03-16 20:02 | XMS REPORT ---
:1955 External Reference #:[id number] Author Organization Health System Address [address] [address] Phone [phone] Care Team Providers Name Role Phone Trish Combs MD Primary Care Physician Unavailable Payers Type Date Identification Numbers Payment Provider Subscriber Commercial Effective: Policy Number: [id number] [employer] Isabel Prasad 2014 Medicaid Group Number: [id number] [address] [address] PayID: [id number] [place] [address] Problems Date Description Provider Status Onset: 12/02/2013 Chest pain Rock Domínguez M.D., Active GAMALIEL PALOMARES Onset: 09/03/2014 Syncope and collapse Rock Domínguez M.D., [facility] GAMALIEL Onset: 04/05/2015 Arthralgia of the lower leg Benny Celeste M.D. Active Onset: 04/05/2015 Derangement of knee Benny Celeste M.D. Active Onset: 05/09/2015 Coronary arteriosclerosis Rock Domínguez M.D., [facility] GAMALIEL Onset: 11/24/2015 Achalasia of esophagus Benny Celeste M.D. Active Onset: 11/24/2015 Localized, primary osteoarthritis Benny Celeste M.D. Active Onset: 01/02/2016 Athscl heart disease of resighini cor Rokc Domínguez M.D., Active art w oth ang pctrs JELANI, GAMALIEL Onset: 02/14/2016 Essential hypertension Rock Domínguez M.D., Active [facility] GAMALIEL Onset: 03/29/2016 Arthroplasty of knee Benny Celeste [...] Form Strength Qnty SIG Indications Ordering Provider Zofran Odt 03/23 Active Tablets 4mg 30tab one tab by Dispers s mouth Booker, every 8 M.D. hours as needed for nausea Losartan 02/13 Active Tablets 100mg 90tab 1 by mouth Rock s every day Everardo Domínguez M.D., FACC, FASNC Benadryl Allergy 12/08 Active Tablets 25mg 30tab 1 tablet Stephany s by mouth Alta, three M.D. times a day, as needed Nitrostat Active Tablets Sub 0.4mg 25tab 1 tab Rock / s dissolve Everardo under Sang, tongue as M.D., needed FACC, chest pain FASNC Simvastatin Active Tablets 20mg 30tab 2 po qhs Unknown /0000 s Carisoprodol Active Tablets 350mg 90tab 1 tab bid Unknown / s for muscle spasms/ach alasia Omeprazole Active Capsules DR 40mg 90cap 1 cap po Unknown /0000 s twice daily Epipen 2-Godwin Active Solution 0.3mg/0.3 use as / Auto-Inject ML directed Azelastine HCL Active Solution 0.05% instill 1 Unknown /0000 drop into affected eye 2 times per day for inflammati on of eyelid lining due to allergy prn Clopidogrel Active Tablets 75mg 1 by mouth Unknown Bisulfate /0000 every day (On Hold since 02/09/16) Cyanocobalamin Active Solution 1000mcg/M 1.0 cubic Unknown /0000 L centimeter s intramuscu lar every month Vitamin D Active Capsules 18343Ngvh 1 cap by Unknown (Ergocalciferol) /0000 mouth per week x 8 weeks Proair HFA Active Aerosol 108(90Bas 2 puffs by Unknown /0000 e) mouth mcg/Act every 4 hours as [...] Prochlorperazine Active Tablets 10mg twice Unknown Maleate daily as needed N/V Metoprolol Active Tablets ER 50mg 1/2 tab by Unknown Succinate ER / 24HR mouth every day Baclofen Active Tablets 10mg Unknown / Neurontin 03/29 Hx Capsules 300mg 30cap Take One s Capsule By Booker, Mouth AT M.D. Bedtime Freedom 03/23 Hx Tablets 5-325mg 60tab take 1-2 s tabs every Booker, - 4-6 hours M.D. 04/27 as needed for pain Lovenox 03/09 Hx Solution 40mg/0.4M 10uni 1 b /2015 L ts injection savannah Pearl MD everyday following surgery Percocet 03/09 Hx Tablets 5-325mg 80tab 1-2 by s mouth Booker, - every 4 to M.D. 03/23 6 hours needed pain Toprol XL 01/12 Hx Tablets ER 50mg 150ta 1 and one I25.118 Rock 24HR bs half Mcgee - tablets Domínguez, 01/12 (75 mg) by M.DEusebio, mouth FACC, every day GAMALIEL Toprol XL 01/12 Hx Tablets ER 100mg 90tab 1 by mouth I25.118 Rock 24HR s every day Everardo in morning Ramon Domínguez, [facility], GAMALIEL Toprol XL 01/01 Hx Tablets ER 50mg 90tab 1 by mouth I25.118 24HR s every day Everardo - Sang 01/12 Ramon, [facility], GAMALIEL Ultram 11/24 Hx Tablets 50mg 30tab 1-2 by Benny s mouth Booker, - every M.D. 04/27 night at bedtime as needed, take with 2 Extra Strength Tylenol First-Lansoprazol Hx Suspension 3mg/ml 10 ML po Unknown e /0000 on empty - stomach, 09/02 prn /2013 Oxycodone HCL Hx Solution 5mg/5ML 10 mL [...] Unknown Chloride /0000 daily - 03/21 06 Hx Tablets 5mg 30tab 1 by mouth Unknown /0000 s every day - 03/21 Hydrocodone-Aceta Hx Tablets 5-325mg 1 by mouth Unknown minophen /0000 twice - daily prn 05/07 n fx Proair HFA Hx Aerosol 108(90Bas 2 puffs by Unknown /0000 e) mouth - mcg/Act every 4 11/23 hours needed Calcitonin Hx Solution 200Unit/A spray one Unknown ([place]) /0000 ct spray - intranasal 11/15 ly every day alternatin g nostrils Montelukast Hx Tablets 10mg 1 by mouth Unknown Sodium /0000 at bedtime - 11/23 Ergocalciferol Hx Capsules 14876Bjry 1 cap by Blegen, /0000 mouth Trish - twice 11/23 Guaze Pads Hx 4x4's, use Unknown /0000 as - directed 03/21 for abd wound Tegaderm Film Hx Misc (Dressing 4"x4 1/2" Unknown Tranparent /0000 ) use as Dressing/Frame - directed Style 11/15 to abd wound 0601 00 Hx Packet 3350NF 17 gm Unknown /0000 [...] Ordering Provider Inj, 12/16/ Administered Injection Eugene D. Regadenoson, 0.1 2015 Brand, MG M.D. Inj, 12/16/ Administered Injection Marline Regadenoson, 0.1 2015 CRISTINA Henriquez MG Technetium TC 12/16/ Administered Injection Eugene D. 99M Tetrofosmin, 2015 Brand, Per Unit Dose Up M.D. To 40 Millicuries Technetium TC 12/16/ Administered Injection Marline 99M Tetrofosmin, 2015 CRISTINA Henriquez Per Unit Dose Up To 40 Millicuries Inj, 08/02/ Administered Injection Rock Mcgee Regadenoson, 0.1 2013 MG Ramon Domínguez, FACC, FASNC Aminophylline 08/02/ Administered Injection Rock Mcgee 2013 Ramon Domínguez, FACC, FASNC Technetium TC 08/02/ Administered Injection Rock Mcgee 99M Tetrofosmin, 2013 Sang, Per Unit Dose Up M.D., To 40 FACC, Millicuries FASNC Inj, 11/30/ Administered Injection Rock Mcgee Regadenoson, 0.1 2013 MG Zahra Domínguez.DEusebio, FACC, FASNC Technetium TC 11/30/ Administered Injection Rock Mcgee 99M Tetrofosmin, 2013 Sang, Per Unit Dose Up M.D., To 40 FACC, Millicuries FASNC Vital Signs Date Vital Result Comment 03/03/2018 Weight 107.00 lb Heart Rate 72 /min BP Systolic 132 mmHg BP Diastolic 80 mmHg Respiratory Rate 16 /min Body Temperature 98.0 F 10/24/2017 Height 67 inches 5'7" Weight 107.00 [...] Color Yellow Urine Appearance Clear Urine Specific [place] 1.008 Low 1.010-1.030 Urine pH 6.0 5-9 [...] Color Yellow Urine Appearance Cloudy Urine Specific [place] 1.008 Low 1.010-1.030 Urine pH 6.0 5-9 [...] (or dialysis) 2 SEE RESULT BELOW Name: ISABEL PRASAD : [address]: Benny Celeste MD Acct: [id number] Unit: [id number] AGE: 60 Location: [facility] Re01/11/16 SEX: F Status: REG REF SPEC: [id number] ALLIE: 01/11/16-1245 [facility] DR: Benny Celeste MD REQ: [id number] RECD: 01/11/16 STATUS: LIBRA GOLDMAN DR: Trish Combs MD _ SOURCE: [facility] ORDERED: Urine Culture Procedure Result Reported Site Urine Culture Final 01/13/16- 0836 ML Organism 1 ESCHERICHIA COLI [place] Count >100,000 (Many) CFU/ML 1. ESCHERICHIA COLI [...] performed at Main Lab DEPARTMENT OF PATHOLOGY, [address] [place] [address] Toan Guillaume M.D. Director [facility] # [id number] Normal Range 180 to 914 Indeterminate [...] Procedures Date CPT Code Description Status 08/15/2016 13329 EKG, Interpretation Only Completed 04/02/2016 20824 Treadmill Interp/Report Only Completed 04/02/2016 15494 Stress Test Supervsn W/Out I/R Completed 03/09/2016 02069 EKG, Interpretation Only Completed 03/05/2016 46194 TKR Total Knee Replacement Completed 03/05/2016 75205 TKR Total Knee Replacement Completed 01/02/2016 24942 EKG Tracing & Interpretation Completed 12/16/2015 30779 Stress Test Completed 12/16/2015 18107 Myocardial Perfusion Imaging Tomographic (Spect) Completed Multiple Studies 12/12/2015 25241 ECHO Transthoracic, Real-Time 2D With Doppler And Color Completed Flow 06/02/2015 48009 Treadmill Interp/Report Only Completed 06/02/2015 00934 Stress Test Supervsn W/Out I/R Completed 06/01/2015 59673 EKG, Interpretation Only Completed 06/01/2015 75778 ECHO Transthorasic Realtime 2D W Doppler & Color Completed Flow Hosp 05/09/2015 88530 EKG Tracing & Interpretation Completed 01/20/2015 63139 EEG Recording Awake & Drowsy Completed 01/20/2015 26811 Color Flow Doppler/Interp & Reprt Completed 01/20/2015 59017 Pulse Wave/Continuous-Interp.RPT Completed 01/20/2015 21285 Echocardiography, Transesophageal, Real Time W/Image 2D Completed W/W/O M-M 01/20/2015 57598 EKG, Interpretation Only Completed 09/03/2014 87302 EKG Tracing & Interpretation Completed 08/18/2014 72074 EEG Recording Awake & Asleep Completed 08/18/2014 51766 ECHO Transthorasic Realtime 2D W Doppler & Color Completed Flow Hosp 08/17/2014 25744 EKG, Interpretation Only Completed 08/16/2014 00767 EKG, Interpretation Only Completed 08/05/2014 52744 ECHO Transthoracic, Real-Time 2D With Doppler And Color Completed Flow 08/02/2014 40042 Stress Test Completed 08/02/2014 00268 Myocardial Perfusion Imaging Tomographic (Spect) Completed Multiple Studies 07/21/2014 82364 EKG Tracing & Interpretation Completed 07/04/2014 78748 EKG, Interpretation Only Completed 11/30/2013 80729 Stress Test Completed 11/30/2013 67113 Myocardial Perfusion Imaging Tomographic (Spect) Completed Multiple Studies 11/27/2013 21063 ECHO Transthoracic, Real-Time 2D With Doppler And Color Completed Flow 11/23/2013 40010 EKG Tracing & Interpretation Completed 03/01/2013 20367 EKG, Interpretation Only Completed 03/01/2013 05710 Stress Test Supervsn W/Out I/R Completed 03/01/2013 64270 Treadmill Interp/Report Only Completed 02/28/2013 75102 Stress Test Completed 02/28/2013 01496 EKG, Interpretation Only Completed 02/28/2013 98196 EKG, Interpretation Only Completed 10/28/2012 12225 EEG Recording Awake & Drowsy Completed 10/20/2011 59747 EKG, Interpretation Only Completed 10/19/2011 15738 EKG, Interpretation Only Completed 03/22/2010 72655 EKG, Interpretation Only Completed 03/21/2010 09383 EKG, Interpretation Only Completed 04/21/2008 01963 EKG, Interpretation Only Completed 04/21/2008 77854 EKG, Interpretation Only Completed 02/01/2007 10702 EKG, Interpretation Only Completed Encounters Type Date Location Provider CPT E/M Dx Office Visit 01/15/2018 [facility], CRISTINA Doty 19117 R11.2 2:22p Hospitalists K22.0 I25.10 I10 Office Visit 01/13/2018 2:20p [facility], Greg Tafoya, 18051 R11.2 Hospitalists NEusebioPEusebio K22.0 I25.10 I10 Office Visit 10/29/2017 7:46a [facility], Adam Rosas, 47740 K22.0 Hospitalists Ramon E87.6 I10 Office Visit 10/26/2017 6:53a [facility], Annel Garcia 47166 K22.0 Hospitalists DAYNE Rawls E86.0 R11.2 R07.2 Office Visit 10/25/2017 6:53a [facility], CRISTINA Doty 09670 K22.0 Hospitalists R07.2 R11.2 E86.0 Office Visit 10/24/2017 9:00a [facility] [place] [address] K22.0 Plastic Surgery Technician E86.0 R13.10 Office Visit 08/18/2017 6:50a [facility], Adam Rosas 82314 R11.0 Hospitalists Ramon K22.0 Z86.79 I10 Office Visit 08/17/2017 6:49a [facility] Liss Scruggs 64521 R11.0 Assoc, DAYNE Hospitalists K22.0 Z86.79 I10 Office Visit 07/26/2017 9:18a [facility], Anamaria Sanford, 68268 K22.0 Hospitalists N.P. R07.89 R11.2 Office Visit 07/25/2017 9:18a [facility],pc [place], 411[address] K22.0 Hospitalists MJanelle R11.2 R07.89 Office Visit 05/14/2017 3:24p [facility] Alina Tanner, [employer] 11442 R11.10 Assoc,pc Hospitalists K22.0 R07.89 I25.10 Office Visit 05/13/2017 3:24p [facility] [address] R11.10 Hospitalists K22.0 R07.89 I25.10 Office Visit 01/15/2017 2:56p [facility] Alexa Heckhn, 16147 R07.89 Assoc,pc Hospitalists Ramon K22.0 Z85.3 Z86.711 Office Visit 01/14/2017 2:55p [facility] Gordon Campbell , 81797 R07.89 Assoc,pc Hospitalists Ramon K22.0 Z85.3 Z86.711 Office Visit 09/16/2016 2:51p [facility] Yumiko Milan, 94418 K22.0 Hospitalists MJanelle R07.9 I10 E87.6 Office Visit 09/15/2016 2:50p [facility] Yumiko Milan, 06926 K22.0 Hospitalists MJanelle R07.9 I10 Office Visit 09/14/2016 2:50p [facility] [address] K22.0 Hospitalists R07.9 E87.6 Office Visit 09/12/2016 2:49p [facility] Tin Olivera, 17524 K22.0 Hospitalists Ramon,FACP R07.9 Office Visit 08/17/2016 1:25p [facility] Adam Rosas, 98215 R07.9 Hospitalists MJanelle R11.0 K22.0 Z86.79 Office Visit 08/16/2016 1:24p [facility] Adam Rosas, 66320 R07.9 Hospitalists M.D. R11.0 K22.0 Z86.79 Office Visit 08/15/2016 1:24p [facility] [address] R07.9 Hospitalists R11.0 K22.0 Z86.79 Office Visit 08/14/2016 1:23p [facility] Liss LennontipceleStanislavChandler, 29765 R07.9 Assoc,pc [employer] Hospitalists R11.0 K22.0 Z86.79 Office Visit 05/03/2016 10:06a [facility] Eugenio Wagner M.D. 47712 T78.40xA Assoc,pc Hospitalists K22.0 I25.10 Office Visit 04/02/2016 4:03p [facility] [address] R07.9 Hospitalists K22.70 K22.0 I25.10 Office Visit 04/01/2016 4:02p [facility] [address] R07.9 Hospitalists K22.70 K22.0 I25.10 Office Visit 03/07/2016 11:15a [facility] Rylee Valadez, 13839 I25.119 Hospitalists M.DEusebio E78.5 I25.2 Office Visit 03/06/2016 11:15a [facility],pc Rylee Valadez, 64206 D62 Hospitalists M.DEusebio E78.5 I25.119 I10 Office Visit 03/05/2016 11:14a [facility] Eugenio Moore, 44601 I25.119 Assoc, Hospitalists M.DEusebio E78.5 I25.2 I10 Office Visit 02/14/2016 10:00a [facility] Rock Domínguez, 03089 I25.10 Dwight Navarro, JELANI, [facility] I10 Office Visit 01/13/2016 9:45a [facility] Rock Domínguez, 73827 I25.118 Dwight Navarro, JELANI, [facility] Office Visit 01/02/2016 10:00a [facility] Rock Domínguez, 70090 I25.118 Dwight Navarro, JELANI, [facility] Office Visit 11/24/2015 1:30p [facility] Benny Celeste, 92131 M17.12 C.MAlejandro Navarro Office Visit 06/02/2015 10:54a [facility] Alexa Otero, 96085 786.50 Assoc, Hospitalists Ramon 553.3 272.4 401.9 Office Visit 05/31/2015 10:52a [facility] Kimo aCstanon, 59506 410.70 Hospitalists Ramon 553.3 272.4 401.9 Office Visit 05/09/2015 9:00a [facility] Rock Domínguez, 11377 414.01 Dwight Navarro, [facility], [facility] Office Visit 05/03/2015 2:30p [facility] Silvia Laguna, 23728 719.46 C.M.AEusebio ANP-C 715.16 726.64 Office Visit 04/05/2015 1:30p [facility] Benny Celeste, 45175 719.46 C.M.AEusebio Navarro 717.9 717.3 717.7 715.16 Office Visit 01/20/2015 3:25p [facility] [place] [address] 780.97 784.3 435.9 Office Visit 01/20/2015 2:59p [facility], Alexa Otero, 59055 599.0 Hospitalists Ramon 435.9 780.97 Office Visit 01/19/2015 2:58p [facility] [place] [address] 599.0 Assoc, Hospitalists Ramon 435.9 780.97 Office Visit 09/03/2014 1:00p [facility] Rock Domínguez, 97584 780.2 Ramon, [facility], [facility] Office Visit 08/18/2014 11:05a [facility], Eugenio Wagner M.D. 04311 780.97 Hospitalists 414.9 780.39 789.00 Office Visit 08/18/2014 3:38p [facility] Petey Francisco, 98873 780.2 Services Of Dwight Navarro Office Visit 08/16/2014 11:04a [facility], Kimo Castanon, 62010 780.97 Hospitalists MJanelle 789.00 414.9 530.85 Office Visit 07/21/2014 10:30a [facility] Everardo Domínguez, 19238 786.50 MJanelle, [facility], [facility] Office Visit 07/05/2014 1:21p [facility], Eugenio Moore, 71803 786.50 Hospitalists M.DEusebio 414.01 989.5 V15.06 Office Visit 07/04/2014 1:20p [facility], Adam Rosas, 91918 786.50 Hospitalists M.DEusebio 989.5 414.01 V15.06 Office Visit 12/02/2013 8:45a [facility] Rockpatricia Domínguez, 90260 786.50 Plastic Surgery Technician Ramon, [facility], [facility] Office Visit 11/23/2013 1:00p [facility] Rockpatricia Domínguez, 53987 786.51 Plastic Surgery Technician Ramon, [facility], [facility] 530.85 414.01 Office Visit 08/21/2013 6:57p [facility], Anamaria Sanford, 59817 786.51 Hospitalists N.P. 530.85 414.01 Office Visit 08/20/2013 [facility] 49355 786.51 Assoc, Hospitalists N.P. 530.85 414.01 Office Visit 03/01/2013 10:08a [facility], Rylee Valadez, 18888 786.50 Hospitalists M.DEusebio 414.01 530.0 Office Visit 02/28/2013 10:08a [facility], Rylee Valadez, 03991 786.50 Hospitalists M.DEusebio 414.01 530.0 Office Visit 10/28/2012 9:51a [facility] [place], [address] 780.2 Assoc, Hospitalists MJanelle 786.51 414.00 959.01 Office Visit 10/27/2012 9:50a [facility] [place], [address] 780.2 Assoc, Hospitalists MJanelle 786.51 414.00 959.01 Office Visit 03/22/2010 12:15a [facility] Patrick Mejia M.D. 28110 786.50 Assoc, Hospitalists Office Visit 03/21/2010 12:45a [facility] Kimo Conklin, 01893 786.59 Assoc, Hospitalists N.P. Office Visit 03/16/2009 12:15a [facility] Alexa Otero, 36222 786.59 Assoc, Hospitalists Ramon Plan of Care Future Appointment(s):03/11/2018 1:00 pm - Luisito Johnson MD, [facility] at [facility]03/03/2018 - Luisito Johnson MD, FACSK22.0 Achalasia of cardiaRecommendations:Powerport placement.S21.001D Unspecified open wound of right breast, subsequent encounterRecommendations:Stop smoking. Apply antibiotic ointment 2x/day with small bandage. May need to consider f/u with if wound persists.
[2018-03-16 20:18] LABS: Hematocrit 40 % (35-47); Hemoglobin 13.6 g/dl (12.0-16.0); Mean Corpuscular HGB Conc 34 g/dl (31-36); Mean Corpuscular Hemoglobin 29 pg (27-31); Mean Corpuscular Volume 86 fL (80-97); Mean Platelet Volume 7.5 um3 (7.4-10.4); Platelet Count 255 10^3/ul (150-450); Red Blood Count 4.62 10^6/ul (4.0-5.4); Red Cell Distribution Width 14 % (10.5-15); White Blood Count 8.5 10^3/ul (3.5-10.8)
[2018-03-16] MEDS ORDERED: Aspirin TAB* 325 MG PO ONE (20:18)
[2018-03-16] MEDS ORDERED: Ondansetron ODT TAB* 4 MG PO ONE (20:24)
[2018-03-16] MEDS ORDERED: Morphine VIAL* 4 MG/ML VIAL (1 ml vial) IV ONE ×3 (20:28→23:49)
[2018-03-16] MEDS ORDERED: Aspirin EC TAB* 81 MG TAB.EC ONE (20:29)
[2018-03-16] MEDS ORDERED: Ondansetron INJ* 2 MG/ML VIAL IV ONE (20:29)
[2018-03-16] MEDS ORDERED: Ondansetron ODT TAB* 4 MG ONE (20:31)
[2018-03-16 20:34] LABS: EGFR Non-African American 79.3 (>60)
[2018-03-16] MEDS: Aspirin EC TAB* 81 MG TAB.EC PO ONE ×2 (20:34→20:36)
[2018-03-16 20:42] LABS: INR 0.82 (0.77-1.02)
[2018-03-16 20:46] LABS: ABS Basophils 0.1 10^3/ul (0-0.2); ABS Eosinophils 0.1 10^3/ul (0-0.6); ABS Lymphocytes 2.6 10^3/ul (1.0-4.8); ABS Monocytes 0.6 10^3/ul (0-0.8); ABS Neutrophils 5.1 10^3/ul (1.5-7.7)
[2018-03-16 20:49] LABS: Monocytes % 4 % (0-7)
[2018-03-16] MEDS ORDERED: KCL 10 MEQ/50 ML IVPREMIX* 10 MEQ/50 ML BAG IV ONE (21:00)
--- NOTE | 2018-03-16 21:13 | RAD ---
INDICATION: Change in mental status COMPARISON: February 13, 2018 TECHNIQUE: An AP portable view obtained at 2045 hours is submitted. FINDINGS: Bones/Soft Tissues: There are no acute bony findings. There is left mastectomy. There is left-sided Hnzxfe-y-Lrik catheter. Cardiomediastinal: The cardiomediastinal silhouette is normal. Lungs: There are no infiltrates. There is mild hyperinflation. Pleura: There are no pleural effusions. Other: None IMPRESSION: No active disease.
--- NOTE | 2018-03-17 01:37 | HP ---
H&P (Free Text) History and Physical: PCP: Zahra Combs MD Date/Time: 03/17/2018 0110 CC: aphasia HPI: Mrs Prasad is a 63YO chronically ill female w/ HX outlined below who was at home last evening when around 1800 she experienced to rapid onset of confusion, generalized weakness, and difficulty producing speech. She denies focal W/N/T, difficulty swallowing, chest pain, SOB, N/V/D, sweats, palpitations , cough, and congestion. She does report having double vision for the past month which she has been being worked up for by her PCP. She was able to call her neighbor informing her of her symptoms and who drove her to [facility]. 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) TIA numerous "anaphylactic" reactions achalasia HTN HLD Fernández's esophagus Ambulatory Orders Cyanocobalamin INJ * [Vitamin B12 INJ *] 1,000 mcg IM MONTHLY 05/31/15 Carisoprodol TAB* [Soma TAB*] 350 mg PO QID 01/16/16 Omeprazole CAP* [Prilosec CAP* 20 MG] 40 mg PO DAILY 09/19/16 Prochlorperazine TAB* [Compazine Tab*] 10 mg PO BID PRN 10/17/16 amLODIPine TAB* [Norvasc 5 mg TAB*] 10 mg PO QAM 01/15/17 Clopidogrel TAB* [Plavix TAB*] 75 mg PO QAM 04/26/17 Morphine Sulfate [Morphine Sulfate ER] 30 mg PO TID 07/23/17 Ondansetron ODT TAB* [Zofran 4 MG Odt TAB*] 4 mg PO Q8HR PRN 07/23/17 diPHENhydraMINE PO* [Benadryl PO 50 MG CAP*] 50 mg PO Q6HR PRN 07/23/17 Nitroglycerin TAB 0.4 MG* 0.4 mg SL Q5M PRN 10/09/17 Metoprolol Succinate XL TAB* [Toprol XL TAB*] 50 mg PO QAM 10/25/17 Simvastatin TAB(NF) [Zocor 20 MG (NF)] 40 mg PO QAM 10/25/17 Losartan TAB* [Cozaar TAB*] 50 mg PO QAM 10/29/17 Nortriptyline CAP* [Nortriptylline CAP*] 20 mg PO BEDTIME 01/08/18 Albuterol inh POWDER (NF) [Proair Respiclick] 2 puff INH Q4HR PRN 01/13/18 EPINEPHrine [Epipen 2-Godwin] 0.3 mg IM ONCE PRN 01/13/18 Ketotifen Fumarate [Allergy Eye Drops] 1 drop BOTH EYES BID PRN 01/13/18 Lactose-Reduced Food/Fiber [Jevity 1.5 Pineda Liquid] 5 can J TUBE QPM 01/13/18 Morphine Oral Solution 100ml/5 2 ml SL Q3HR PRN MDD 15 ml 01/13/18 Fluticasone NASAL SPRAY 50MCG* [Flonase NASAL SPRAY 50MCG*] 2 spray BOTH NARES BID 03/12/18 LevoCETirizine TAB (NF) [Xyzal TAB (NF)] 5 mg PO DAILY 03/12/18 NIFEdipine [Nifedipine] 10 mg PO TID 03/16/18 Allergies albumin colloid, human Allergy (Severe, Verified 03/12/18 10:23) Anaphylatic Shock from Botox bee venom protein (honey bee) Allergy (Severe, Verified 03/12/18 10:23) Anaphylatic Shock Iodinated Contrast- Oral and IV Dye Allergy (Severe, Verified 03/12/18 10:23) Anaphylatic Shock onabotulinumtoxinA [From Botox] Allergy (Severe, Verified 03/12/18 10:23) Anaphylatic Shock Penicillins Allergy (Severe, Verified 03/12/18 10:23) Anaphylatic Shock shellfish derived Allergy (Severe, Verified 03/12/18 10:23) Anaphylatic Shock Adhesive Tape Allergy (Mild, Verified 03/17/18 00:47) Itching chlorhexidine Allergy (Mild, Verified 03/17/18 00:47) Rash And Itching latex Allergy (Mild, Verified 03/17/18 00:47) Hives NSAIDS (Non-Steroidal Anti-Inflamma Allergy (Mild, Verified 03/17/18 00:47) Hives povidone-iodine Allergy (Mild, Verified 03/17/18 00:47) Itching ENVIRONMENTAL/SEASONAL HAYFEVER Allergy (Mild, Uncoded 03/17/18 00:47) ITCHY,WATERY EYES, SNEEZE, CONGESTION PSurgHx cardiac cath x2 shania fundoplication G-tube placement hysterectomy appendectomy shoulder arthroscopy L TKA SocHx: 1/2 PPD w/ 25 PYHX, no alcohol or recreational drugs; lives alone; full code status FamHx: strongly positive for CAD, CVA ROS: as above, otherwise reviewed and all were negative vitals: Vital Signs Temp 37.2 C 03/16/18 19:09 Pulse 66 03/17/18 01:00 Resp 15 03/17/18 01:00 BP 139/86 03/17/18 00:50 Pulse Ox 95 03/17/18 01:00 Intake & Output 03/16/18 03/16/18 03/17/18 11:59 23:59 11:59 Intake Total 1200 Balance 1200 Weight 48.534 kg Intake: IV Fluids 1100 IVPB 100 Constitutional: NAD, normally developed, underweight elderly white female HEENM: atraumatic; sclera/conjunctiva: anicteric/clear; hearing: clinically intact; oropharynx: clear, mucosa moist Neck: soft tissue: non-tender; thyroid: normal Pulmonary: clear to auscultation bilaterally, good aeration, no accessory muscle use CV: RR/RR, normal S1S2, no carotid bruit, no jugular venous distention, 2+ B DP/ PT, no edema Abdominal: soft, non-distended, non-tender, no rebound/guarding/rigidity, normoactive bowel sounds, no hepatosplenomegaly or masses, no costovertebral angle tenderness, G-tube in place & well healed Musculoskeletal: general: grossly intact, non-tender Integumental: normal appearance and texture of exposed skin Neurological cranial nerves III/IV/: symmetric light reflex, EOMI/PERRLA V: intact facial sensation & mastication VII: intact facial symmetry & eye clench VIII: hearing clinically intact IX/X: symmetric palatal motion, no dysarthria XII: midline tongue protrusion, normal voice articulation motor grossly non-focal, moves extremities x4 Psychiatric orientation: AA&O to PPS affect: calm mood: cooperative eye contact: fair content: reliable responses: timely insight: fair Testing: Lab Results 03/16/18 03/16/18 03/16/18 Range/Units 20:10 20:10 20:10 WBC 8.5 (3.5-10.8) 10^3/ul RBC 4.62 (4.0-5.4) 10^6/ul Hgb 13.6 (12.0-16.0) g/dl Hct 40 (35-47) % MCV 86 (80-97) fL MCH 29 (27-31) pg MCHC 34 (31-36) g/dl RDW 14 (10.5-15) % Plt Count 255 (150-450) 10^3/ul MPV 7.5 (7.4-10.4) um3 Neut % (Auto) Not Reportable Lymph % (Auto) Not Reportable Wake % (Auto) Not Reportable Eos % (Auto) Not Reportable Baso % (Auto) Not Reportable Absolute Neuts (auto) 5.1 (1.5-7.7) 10^3/ul Absolute Lymphs (auto) 2.6 (1.0-4.8) 10^3/ul Absolute Monos (auto) 0.6 (0-0.8) 10^3/ul Absolute Eos (auto) 0.1 (0-0.6) 10^3/ul Absolute Basos (auto) 0.1 (0-0.2) 10^3/ul Absolute Nucleated RBC Not Reportable Neutrophils % 62 (38-83) % Lymphocytes % 31 (25-47) % Monocytes % 4 (0-7) % Eosinophils % 3 (0-6) % Basophils % 0 (0-2) % Nucleated RBC % Not Reportable Abs Neuts (Manual) 5.3 (1.5-7.7) 10^3/ul Abs Lymphs (Manual) 2.6 (1.0-4.8) 10^3/ul Abs Monocytes (Manual) 0.3 (0-0.8) 10^3/ul Absolute Eos (Manual) 0.3 (0-0.6) 10^3/ul Abs Basophils (Manual) 0 (0-0.2) 10^3/ul Normal RBC Morphology Normal (Normal) Hem Pathologist Commnt Pending INR (Anticoag Therapy) 0.82 (0.77-1.02) APTT 102.0 H* (26.0-36.3) seconds Sodium 137 L (139-145) mmol/L Potassium 3.2 L (3.5-5.0) mmol/L Chloride 104 (101-111) mmol/L Carbon Dioxide 24 (22-32) mmol/L Anion Gap 9 (2-11) mmol/L BUN 27 H (6-24) mg/dL Creatinine 0.74 (0.51-0.95) mg/dL Est GFR ( Amer) 101.9 (>60) Est GFR (Non-Af Amer) 79.3 (>60) BUN/Creatinine Ratio 36.5 H (8-20) Glucose 72 (70-100) mg/dL Lactic Acid (0.5-2.0) mmol/L Calcium 8.2 L (8.6-10.3) mg/dL Total Bilirubin 0.30 (0.2-1.0) mg/dL AST 15 (13-39) U/L ALT 9 (7-52) U/L Alkaline Phosphatase 50 (34-104) U/L Troponin I 0.01 (<0.04) ng/mL Total Protein 6.7 (6.4-8.9) g/dL Albumin 3.6 (3.2-5.2) g/dL Globulin 3.1 (2-4) g/dL Albumin/Globulin Ratio 1.2 (1-3) Triglycerides 92 mg/dL Cholesterol 178 mg/dL LDL Cholesterol 105 mg/dL HDL Cholesterol 54.3 mg/dL Blood Type Antibody Screen 03/16/18 03/16/18 Range/Units 20:10 20:10 WBC (3.5-10.8) 10^3/ul RBC (4.0-5.4) 10^6/ul Hgb (12.0-16.0) g/dl Hct (35-47) % MCV (80-97) fL MCH (27-31) pg MCHC (31-36) g/dl RDW (10.5-15) % Plt Count (150-450) 10^3/ul MPV (7.4-10.4) um3 Neut % (Auto) Lymph % (Auto) Wake % (Auto) Eos % (Auto) Baso % (Auto) Absolute Neuts (auto) (1.5-7.7) 10^3/ul Absolute Lymphs (auto) (1.0-4.8) 10^3/ul Absolute Monos (auto) (0-0.8) 10^3/ul Absolute Eos (auto) (0-0.6) 10^3/ul Absolute Basos (auto) (0-0.2) 10^3/ul Absolute Nucleated RBC Neutrophils % (38-83) % Lymphocytes % (25-47) % Monocytes % (0-7) % Eosinophils % (0-6) % Basophils % (0-2) % Nucleated RBC % Abs Neuts (Manual) (1.5-7.7) 10^3/ul Abs Lymphs (Manual) (1.0-4.8) 10^3/ul Abs Monocytes (Manual) (0-0.8) 10^3/ul Absolute Eos (Manual) (0-0.6) 10^3/ul Abs Basophils (Manual) (0-0.2) 10^3/ul Normal RBC Morphology (Normal) Hem Pathologist Commnt INR (Anticoag Therapy) (0.77-1.02) APTT (26.0-36.3) seconds Sodium (139-145) mmol/L Potassium (3.5-5.0) mmol/L Chloride (101-111) mmol/L Carbon Dioxide (22-32) mmol/L Anion Gap (2-11) mmol/L BUN (6-24) mg/dL Creatinine (0.51-0.95) mg/dL Est GFR ( Amer) (>60) Est GFR (Non-Af Amer) (>60) BUN/Creatinine Ratio (8-20) Glucose (70-100) mg/dL Lactic Acid 0.9 (0.5-2.0) mmol/L Calcium (8.6-10.3) mg/dL Total Bilirubin (0.2-1.0) mg/dL AST (13-39) U/L ALT (7-52) U/L Alkaline Phosphatase (34-104) U/L Troponin I (<0.04) ng/mL Total Protein (6.4-8.9) g/dL Albumin (3.2-5.2) g/dL Globulin (2-4) g/dL Albumin/Globulin Ratio (1-3) Triglycerides mg/dL Cholesterol mg/dL LDL Cholesterol mg/dL HDL Cholesterol mg/dL Blood Type A Positive Antibody Screen Negative ECG, personally reviewed: NSR rate 83, mild ST depression V5-6 CXR, personally reviewed: IMPRESSION: No active disease. CT brain WO, personally reviewed: IMPRESSION: No acute intracranial findings. Mild chronic microvascular ischemic change MRI brain WO, personally reviewed: IMPRESSION: 1. No definitive evidence of mass effect, hydrocephalus, or acute cerebral infarction is appreciated. 2. There is white matter disease, likely result of chronic ischemic demyelination. 3. There is lack of signal void involving the left vertebral artery. Occlusion or high-grade stenosis be considered. MRA head, personally reviewed: IMPRESSION: There is poor visualization of the intracranial aspects of the left vertebral artery. There is reasonable caliber more distally. Please consider extracranial left acute artery critical stenosis or occlusion. Clinical correlation and follow up evaluation is advised. MRA neck, personally reviewed: IMPRESSION: The left vertebral artery is not visualized. Occlusion or critical stenosis must be considered. This is age- indeterminate. Impression: 63F HX outlined above presents with TIA-like symptoms DIAGNOSIS & PLAN Primary TIA : telemetry : neurochecks : consider neurology consult in AM : supplemental oxygen : PT/OT evaluations : supportive care Secondary CAD/AK : review meds once reconciled HX DVT/PE : SCDs & heparin SQ HX breast CA : no acute issues numerous "anaphylactic" reactions : no acute issues achalasia : no acute issues HTN : review meds once reconciled HLD : review meds once reconciled Fernández's esophagus : review meds once reconciled old L vertebral artery occlusion : review meds once reconciled Admission Rational: observation for TIA DVTp: SCDs & heparin SQ Code Status: full HCP: daughter, Viola Mcmahan
[2018-03-17] MEDS ORDERED: Acetaminophen TAB* 325 MG PO PRN (01:42)
[2018-03-17] MEDS ORDERED: CMCS:Melatonin (NF) 3 MG TAB PO PRN (01:42)
[2018-03-17] MEDS ORDERED: Albuterol 2.5 MG/3 ML NEB.SOL* (0.083%) INH PRN (01:42)
[2018-03-17] MEDS ORDERED: Ondansetron ODT TAB* 4 MG PO PRN (01:44)
[2018-03-17] MEDS ORDERED: Prochlorperazine TAB* 10 MG PO PRN (01:44)
--- NOTE | 2018-03-17 03:07 | ED ---
Ashia Chatterjee Julia, scribed for Aziza Bueno MD on 03/16/18 at 1945 . Neurological HPI - HPI Summary HPI Summary: This patient is a 63 year old F presenting to [facility] with a chief complaint of sudden confusion beginning two hours ago while watching TV at home. She additionally reports inability to walk with changes in speech and mid-sternal chest pain. Chest pain is 8/10 in severity. She called her neighbor, Michelle, around 18:20 informing her of her symptoms. She brought the patient here by private vehicle as she refused an ambulance. Michelle states that her current speech is changed from baseline and she typically speaks in full sentences. PMHX includes HTN, TIA, MN, and DVT. A left subclavian intravenous port was placed on 03/11/18. Patient has upper GI tube for significant achalasia. - History of Current Complaint Chief Complaint: EDChestPainROMI Stated Complaint: WEAKNESS Time Seen by Provider: 03/16/18 19:24 Hx Obtained From: Patient, Family/Distribution Center Assistant Onset/Duration: Sudden Onset, Started hours ago Timing: Constant Neurological Deficit Location: Generalized - speech, gait Pain Intensity: 8 - CP Pain Scale Used: 0-10 Numeric Character: Impaired Speech, Confusion, Other: - CP Episode Lasting: Hours Associated Signs and Symptoms: Positive: Unsteady Gait, Confusion, Impaired Speech Related Hx: Recent Illness - MN, DVT, TIAs - Additional Pertinent History Primary Care Physician: [id number] - Allergy/Home Medications Allergies/Adverse Reactions: Allergies Allergy/AdvReac Type Severity Reaction Status Date / Time albumin colloid, human Allergy Severe Anaphylatic Verified 03/12/18 10:23 Shock bee venom protein (honey bee) Allergy Severe Anaphylatic Verified 03/12/18 10:23 Shock Iodinated Contrast- Oral and Allergy Severe Anaphylatic Verified 03/12/18 10:23 IV Dye Shock onabotulinumtoxinA Allergy Severe Anaphylatic Verified 03/12/18 10:23 [From Botox] Shock Penicillins Allergy Severe Anaphylatic Verified 03/12/18 10:23 Shock shellfish derived Allergy Severe Anaphylatic Verified 03/12/18 10:23 Shock Adhesive Tape Allergy Mild Itching Verified 03/17/18 00:47 chlorhexidine Allergy Mild Rash And Verified 03/17/18 00:47 Itching latex Allergy Mild Hives Verified 03/17/18 00:47 NSAIDS (Non-Steroidal Allergy Mild Hives Verified 03/17/18 00:47 Anti-Inflamma povidone-iodine Allergy Mild Itching Verified 03/17/18 00:47 ENVIRONMENTAL/SEASONAL Allergy Mild ITCHY,WATERY Uncoded 03/17/18 00:47 HAYFEVER EYES, SNEEZE, CONGESTION Home Medications: Home Medications NIFEdipine [Nifedipine] 10 mg PO TID 03/16/18 [History Confirmed 03/16/18] PMH/Surg Hx/FS Hx/Imm Hx Endocrine/Hematology History: Reports: Hx Anticoagulant Therapy - plavix, Hx Anemia - possible Denies: Hx Diabetes, Hx Thyroid Disease Cardiovascular History: Reports: Hx Angina - has prn nitro, Hx Coronary Artery Disease - 2 stents- RCA stent 2006, LAD stent 2007, Hx Deep Vein Thrombosis, Hx Embolism, Hx Hypercholesterolemia, Hx Hypertension, Hx Myocardial Infarction, Hx Syncope, Other Cardiovascular Problems/Disorders - cardiac cath Denies: Hx Congestive Heart Failure, Hx Pacemaker/ICD, Hx Valvular Heart Disease Respiratory History: Reports: Hx Chronic Obstructive Pulmonary Disease (COPD) - Pt denies though providers have diagnosed it, Hx Pneumonia, Hx Pulmonary Embolism - and DVT 30 yrs ago, Hx Seasonal Allergies, Other Respiratory Problems /Disorders - SMOKER Denies: Hx Asthma, Hx Sleep Apnea GI History: Reports: Hx Diverticulosis, Hx Gastroesophageal Reflux Disease, Hx Hiatal Hernia - 3 surgeries, Other GI Disorders - achalasia, Fernández's esophagus , has a JG tube Denies: Hx Ulcer History: Reports: Hx Kidney Infection, Hx Kidney Stones - LAST 12/2015- NO PROBLEMS SINCE PER PATIENT Denies: Hx Dialysis, Hx Renal Disease, Other Problems/Disorders Musculoskeletal History: Reports: Hx Arthritis, Hx Back Problems - L1 fx, Other Musculoskeletal History - L1 fx Denies: Hx Osteoporosis Sensory History: Reports: Hx Cataracts - maryuri, Hx Contacts or Glasses Denies: Hx Hearing Aid Opthamlomology History: Reports: Hx Cataracts - maryuri, Hx Contacts or Glasses Neurological History: Reports: Hx Spinal Cord Injury - L1, Hx Transient Ischemic Attacks (TIA), Other Neuro Impairments/Disorders - POSSIBLE SMALL TIA'S - 3 yrs ago Psychiatric History: Reports: Hx Anxiety Denies: Hx Panic Disorder - Cancer History Cancer Type, Location and Year: RT BREAST CA, 2009 HAD A BILATERAL MASTECTOMY Hx Chemotherapy: No Hx Radiation Therapy: No - Surgical History Surgery Procedure, Year, and Place: RT LUMPECTOMY 02/2010, BILATERAL MASTECTOMY ,. 2006& 2008 CARDIAC STENT AT [facility] IN [place],. LEFT KNEE SURGERY X10,. BILATERAL SHOULDER SURGERY,. ESPOHOGEAL SURGERY,1996, 2015. failed breast implant on left. PARTIAL HYSTERECTOMY, 1976. APPENDIX A CHILD,. CHEST TUBE, 1996. ESOPHAGEAL DILATION. NISSIN FUNDOLPICATION multiple. total left knee replacement 2015. kidney stone surgery. left chest wound surgery 2010. Insertion Infusaport 02/2018 Hx Anesthesia Reactions: No - Immunization History Date of Tetanus Vaccine: up to date Date of Influenza Vaccine: 06/2016 Infectious Disease History: No Infectious Disease History: Reports: Hx Clostridium Difficile Denies: Hx Hepatitis, Hx Human Immunodeficiency Virus (HIV), Hx of Known/ Suspected MRSA, Hx Shingles, Hx Tuberculosis, Hx Known/Suspected VRE, Hx Known/ Suspected VRSA, History Other Infectious Disease, Traveled Outside the [place] in Last 30 Days - Family History Known Family History: Positive: Cardiac Disease - Father, 2 brothers - MN. Mother - AFIB, Hypertension, Diabetes - Social History Alcohol Use: None Hx Substance Use: No Substance Use Type: Reports: Prescribed Substance Use Comment - Amount & Last Used: prescribed Hx Tobacco Use: Yes Smoking Status (MU): Light Every Day Tobacco Smoker Type: Cigarettes Amount Used/How Often: smoked for 40 years started 1ppd down to a couple of cigaretes a day Length of Time of Smoking/Using Tobacco: 40+ YEARS Have You Smoked in the Last Year: No Review of Systems Positive: Chest Pain Neurological: Other - confusion Positive: Weakness, Slurred Speech All Other Systems Reviewed And Are Negative: Yes Physical Exam - Summary Physical Exam Summary: VITAL SIGNS: Reviewed. GENERAL: Patient is a well-developed and nourished female who is lying comfortable in the stretcher. Patient is not in any acute respiratory distress. HEAD AND FACE: No signs of trauma. No ecchymosis, hematomas or skull depressions. No sinus tenderness. EYES: PERRLA, EOMI x 2, No injected conjunctiva, no nystagmus. EARS: Hearing grossly intact. Ear canals and tympanic membranes are within normal limits. MOUTH: Oropharynx within normal limits. NECK: Supple, trachea is midline, no adenopathy, no JVD, no carotid bruit, no c- spine tenderness, neck with full ROM. CHEST: Symmetric, no tenderness at palpation. Left subclavian port. LUNGS: Clear to auscultation bilaterally. No wheezing or crackles. CVS: Regular rate and rhythm, S1 and S2 present, no murmurs or gallops appreciated. ABDOMEN: Soft, non-tender. No signs of distention. No rebound no guarding, and no masses palpated. Bowel sounds are normal. GI tube in upper abdomen. EXTREMITIES: FROM in all major joints, no edema, no cyanosis or clubbing. NEURO: Alert and oriented x 3. Mild to moderate aphasia, significant dysarthia, no focal neurological deficits on stretcher, while ambulating patient she had unsteady gait and difficulty walking SKIN: Dry and warm Triage Information Reviewed: Yes Vital Signs On Initial Exam: Initial Vitals Temp Pulse Resp BP Pulse Ox 99 F 86 14 143/92 97 03/16/18 19:09 03/16/18 19:09 03/16/18 19:09 03/16/18 19:09 03/16/18 19:09 Vital Signs Reviewed: Yes Diagnostics - Vital Signs Vital Signs Temp Pulse Resp BP Pulse Ox 03/16/18 19:27 82 16 139/90 96 03/16/18 19:18 18 03/16/18 19:09 99 F 86 14 143/92 97 - Laboratory Lab Results: Lab Results 03/16/18 03/16/18 03/16/18 Range/Units 20:10 20:10 20:10 WBC 8.5 (3.5-10.8) 10^3/ul RBC 4.62 (4.0-5.4) 10^6/ul Hgb 13.6 (12.0-16.0) g/dl Hct 40 (35-47) % MCV 86 (80-97) fL MCH 29 (27-31) pg MCHC 34 (31-36) g/dl RDW 14 (10.5-15) % Plt Count 255 (150-450) 10^3/ul MPV 7.5 (7.4-10.4) um3 Neut % (Auto) Not Reportable Lymph % (Auto) Not Reportable Talbot % (Auto) Not Reportable Eos % (Auto) Not Reportable Baso % (Auto) Not Reportable Absolute Neuts (auto) 5.1 (1.5-7.7) 10^3/ul Absolute Lymphs (auto) 2.6 (1.0-4.8) 10^3/ul Absolute Monos (auto) 0.6 (0-0.8) 10^3/ul Absolute Eos (auto) 0.1 (0-0.6) 10^3/ul Absolute Basos (auto) 0.1 (0-0.2) 10^3/ul Absolute Nucleated RBC Not Reportable Neutrophils % 62 (38-83) % Lymphocytes % 31 (25-47) % Monocytes % 4 (0-7) % Eosinophils % 3 (0-6) % Basophils % 0 (0-2) % Nucleated RBC % Not Reportable Abs Neuts (Manual) 5.3 (1.5-7.7) 10^3/ul Abs Lymphs (Manual) 2.6 (1.0-4.8) 10^3/ul Abs Monocytes (Manual) 0.3 (0-0.8) 10^3/ul Absolute Eos (Manual) 0.3 (0-0.6) 10^3/ul Abs Basophils (Manual) 0 (0-0.2) 10^3/ul Normal RBC Morphology Normal (Normal) Hem Pathologist Commnt Pending INR (Anticoag Therapy) 0.82 (0.77-1.02) APTT 102.0 H* (26.0-36.3) seconds Sodium 137 L (139-145) mmol/L Potassium 3.2 L (3.5-5.0) mmol/L Chloride 104 (101-111) mmol/L Carbon Dioxide 24 (22-32) mmol/L Anion Gap 9 (2-11) mmol/L BUN 27 H (6-24) mg/dL Creatinine 0.74 (0.51-0.95) mg/dL Est GFR ( Amer) 101.9 (>60) Est GFR (Non-Af Amer) 79.3 (>60) BUN/Creatinine Ratio 36.5 H (8-20) Glucose 72 (70-100) mg/dL Lactic Acid (0.5-2.0) mmol/L Calcium 8.2 L (8.6-10.3) mg/dL Total Bilirubin 0.30 (0.2-1.0) mg/dL AST 15 (13-39) U/L ALT 9 (7-52) U/L Alkaline Phosphatase 50 (34-104) U/L Troponin I 0.01 (<0.04) ng/mL Total Protein 6.7 (6.4-8.9) g/dL Albumin 3.6 (3.2-5.2) g/dL Globulin 3.1 (2-4) g/dL Albumin/Globulin Ratio 1.2 (1-3) Triglycerides 92 mg/dL Cholesterol 178 mg/dL LDL Cholesterol 105 mg/dL HDL Cholesterol 54.3 mg/dL Blood Type Antibody Screen 03/16/18 03/16/18 Range/Units 20:10 20:10 WBC (3.5-10.8) 10^3/ul RBC (4.0-5.4) 10^6/ul Hgb (12.0-16.0) g/dl Hct (35-47) % MCV (80-97) fL MCH (27-31) pg MCHC (31-36) g/dl RDW (10.5-15) % Plt Count (150-450) 10^3/ul MPV (7.4-10.4) um3 Neut % (Auto) Lymph % (Auto) Talbot % (Auto) Eos % (Auto) Baso % (Auto) Absolute Neuts (auto) (1.5-7.7) 10^3/ul Absolute Lymphs (auto) (1.0-4.8) 10^3/ul Absolute Monos (auto) (0-0.8) 10^3/ul Absolute Eos (auto) (0-0.6) 10^3/ul Absolute Basos (auto) (0-0.2) 10^3/ul Absolute Nucleated RBC Neutrophils % (38-83) % Lymphocytes % (25-47) % Monocytes % (0-7) % Eosinophils % (0-6) % Basophils % (0-2) % Nucleated RBC % Abs Neuts (Manual) (1.5-7.7) 10^3/ul Abs Lymphs (Manual) (1.0-4.8) 10^3/ul Abs Monocytes (Manual) (0-0.8) 10^3/ul Absolute Eos (Manual) (0-0.6) 10^3/ul Abs Basophils (Manual) (0-0.2) 10^3/ul Normal RBC Morphology (Normal) Hem Pathologist Commnt INR (Anticoag Therapy) (0.77-1.02) APTT (26.0-36.3) seconds Sodium (139-145) mmol/L Potassium (3.5-5.0) mmol/L Chloride (101-111) mmol/L Carbon Dioxide (22-32) mmol/L Anion Gap (2-11) mmol/L BUN (6-24) mg/dL Creatinine (0.51-0.95) mg/dL Est GFR ( Amer) (>60) Est GFR (Non-Af Amer) (>60) BUN/Creatinine Ratio (8-20) Glucose (70-100) mg/dL Lactic Acid 0.9 (0.5-2.0) mmol/L Calcium (8.6-10.3) mg/dL Total Bilirubin (0.2-1.0) mg/dL AST (13-39) U/L ALT (7-52) U/L Alkaline Phosphatase (34-104) U/L Troponin I (<0.04) ng/mL Total Protein (6.4-8.9) g/dL Albumin (3.2-5.2) g/dL Globulin (2-4) g/dL Albumin/Globulin Ratio (1-3) Triglycerides mg/dL Cholesterol mg/dL LDL Cholesterol mg/dL HDL Cholesterol mg/dL Blood Type A Positive Antibody Screen Negative Result Diagrams: 03/16/18 20:10 03/16/18 20:10 Lab Statement: Any lab studies that have been ordered have been reviewed, and results considered in the medical decision making process. - Radiology CXR Radiology Interpretation Completed By: Radiologist - No active disease. Dr. Bueno has reviewed this report. - CT Brain CT CT Interpretation Completed By: Radiologist - No acute intracranial findings. Mild chronic microvascular ischemic change. Dr. Bueno has reviewed this report. MR Brain CT Interpretation Completed By: Radiologist - 1. No definitive evidence of mass effect, hydrocephalus, or acute cerebral infarction is appreciated. 2. There is white matter disease, likely result of chronic ishemic demyelination. 3. There is a lack of signal void involving the left vertebral artery. Occlusion or high- grade stenosis be considered. Dr. Bueno has reviewed this report. MRA Neck CT Interpretation Completed By: Radiologist - 1. Left vertebral artery is not visulaized. Occlusion or critical stenosis must be considered. This is age- indeterminate. Dr. Bueno has reviewed this report. MRA Head CT Interpretation Completed By: Radiologist - 1. There is poor visualization of the intracranial aspects of the left vertebral artery. There is reasonable caliber more distally. Please consider extracranial left acute artery critical stenosis or occlusion. Dr. Bueno has reviewed this report. - EKG 19:20 Cardiac Rate: NL EKG Rhythm: Sinus Rhythm - 83 BPM EKG Interpretation: L axis deviation, normal intervals, LVH, no STEMI changes 20:28 Cardiac Rate: NL EKG Rhythm: Sinus Rhythm - at 79 BPM EKG Interpretation: L axis deviation, normal intervals, LVH, no STEMI changes EKG Comparison: No Significant Change - from EKG earlier this visit NIH Scale - NIH Scale Level of Consciousness: Alert/Keenly Responsive Ask Patient the Month and His/Her Age: Both Correct Ask Pt to Open/Close Eyes and Field Aide/Release Non-Paretic Hand: Both Correctly Best Gaze (Only Horizontal Eye Movement): Normal Visual Field Testing: No Visual Loss Facial Paresis-Pt to Smile & Close Eyes or Grimace Symmetry: Normal/Symmetrical Motor Function - Right Arm: No Drift-Holds 10 Seconds Motor Function - Left Arm: No Drift-Holds 10 Seconds Motor Function - Right Leg: No Drift-Holds 10 Seconds Motor Function - Left Leg: No Drift-Holds 10 Seconds Limb Ataxia-Must be out of Proportion to Weakness Present: Present in Two Limbs Sensory (Use Pinprick to Test Arms/Legs/Trunk/Face): Normal Best Language (Describe Picture, Name Items): Some Loss Dysarthria (Read Several Words): Slurs Some Words Extinction and Inattention: No Abnormality Total Score: 4 Re-Evaluation - Re-Evaluation First Change: Unchanged - Pt has difficulty ambulating and has unsteady gait. Course/Dx - Course Course Of Treatment: 63 y/o female presenting to ED with sudden confusion, aphasia, and inability to walk around 17:40 this evening. She additionally reports CP. PMHx including MN, TIAs, and DVT. A code clark is called at 19:44. At 20:[address] Moura, neurologist, who recommended getting a brain CTA with contrast. However patient is alllergic to IV Iodine, so a MRA Head, NRA Neck, and MRI Brain was ordered. Dr. Moura additionally advised against TPA. Patient is not a canidate for TPA, as a intravenous left subclavian port as placed four days ago, meeting exclusion criteria for TPA. A CXR reveals, as per radiologist, no active disease. A Brain CT reveals, as per radiologist, "No acute intracranial findings. Mild chronic microvascular ischemic change." Brain MRI reveals, as per radiologist, ". No definitive evidence of mass effect, hydrocephalus, or acute cerebral infarction is appreciated. 2. There is white matter disease, likely result of chronic ishemic demyelination. 3. There is a lack of signal void involving the left vertebral artery. Occlusion or high- grade stenosis be considered." Head MRA reveals, as per radiologist, " 1. There is poor visualization of the intracranial aspects of the left vertebral artery. There is reasonable caliber more distally. Please consider extracranial left acute artery critical stenosis or occlusion." MRA Neck reveals, as per radiologist, "1. Left vertebral artery is not visulaized. Occlusion or critical stenosis must be considered. This is age-indeterminate." Lab results are unremarkable except for potassium of 3.2 and a APTT of 102.0 Patient is given 1000mL of IV fluids, 50 ml Potassium Chloride, 8mg Zofran PO, 4mg IV Morphine, 324mg of ASA. I spoke with Dr. Moura again at 23:58, we reviewed MRI and MRA results, She states that according to imaging studies there is no acute stroke However upon re-evaluating she still has difficulty ambulating and has unsteady gait. Dr. Moura will review MRI and MRA and will call back. According to Dr. Moura, Patient does not acute acute ischemic stroke. Ther is no benefit to sending her to [facility] at this time. Patient will be admitted for further evaluation. Dr. Campbell agrees to admit this patient at 00:52. - Diagnoses Provider Diagnoses: Acute weakness, Acute ataxia During the Visit The Following Alert/Code Occurred: Code Clark - at 19:44 - Physician Notifications Discussed Care Of Patient With: Sarita Moura - neurologist Time Discussed With Above Provider: 20:04 Instructed by Provider To: Other - Reccomends Brain CTA, advises no TPA - Critical Care Time Critical Care Time: 75-104 min - 75 minutes Discharge - Sign-Out/Discharge Documenting (check all that apply): Discharge/Admit/Transfer - admit - Discharge Plan Condition: Critical Disposition: ADMITTED TO [facility] - Billing Disposition and Condition Condition: CRITICAL Disposition: [facility] [place] The documentation as recorded by the Ashia vyas Julia accurately reflects the service I personally performed and the decisions made by , Aziza Bueno MD.
[2018-03-17] MEDS: Morphine ORAL.SOLN 10 mg* 2 MG/ML UDC 5 ml PO PRN ×5 (04:18→22:03)
[2018-03-17 06:23] LABS: ABS Basophils 0.1 10^3/ul (0-0.2); ABS Eosinophils 0.2 10^3/ul (0-0.6); ABS Lymphocytes 1.9 10^3/ul (1.0-4.8); ABS Monocytes 0.4 10^3/ul (0-0.8); ABS Neutrophils 5.1 10^3/ul (1.5-7.7); ABS Nucleated RBC 0 10^3/ul; Eosinophil % 2.2 % (0-6); Hematocrit 37 % (35-47); Hemoglobin 12.4 g/dl (12.0-16.0); Lymphocyte % 25.2 % (25-47); Mean Corpuscular HGB Conc 34 g/dl (31-36); Mean Corpuscular Hemoglobin 29 pg (27-31); Mean Corpuscular Volume 86 fL (80-97); Mean Platelet Volume 7.4 um3 (7.4-10.4); Nucleated Red Blood Cells % 0; Platelet Count 246 10^3/ul (150-450); Red Blood Count 4.28 10^6/ul (4.0-5.4); Red Cell Distribution Width 14 % (10.5-15); White Blood Count 7.7 10^3/ul (3.5-10.8)
[2018-03-17 06:41] LABS: EGFR Non-African American 97.2 (>60); INR 0.88 (0.77-1.02)
[2018-03-17 06:54] LABS: Urine Appearance Clear; Urine Blood 1+ (Negative); Urine Color Yellow; Urine Ketones Negative (Negative); Urine Protein Negative (Negative); Urine Specific Gravity 1.014 (1.010-1.030); Urine Urobilinogen Negative (Negative)
--- NOTE | 2018-03-17 07:35 | RAD ---
HISTORY: Stroke COMPARISONS: MRI dated March 16, 2018, MRA of the neck dated March 16, 2018 TECHNIQUE: 3-D axial [id number] MR angiography was performed of the head to include the tonto apache of [place]. Multiple 3-D maximum intensity projection reconstructions are also submitted for review. FINDINGS: RIGHT VERTEBRAL ARTERY: The distal right vertebral artery is unremarkable, without stenosis. LEFT VERTEBRAL ARTERY: There is loss of flow-related enhancement within the V3 and proximal V4 segments of the left vertebral artery. The distal V4 segment with enhancement is felt to represent collateral flow. DOMINANCE: The right vertebral artery is dominant. DISTAL RIGHT CERVICAL INTERNAL CAROTID ARTERY: The distal right cervical internal carotid artery is unremarkable. DISTAL LEFT CERVICAL INTERNAL CAROTID ARTERY: The distal left cervical internal carotid artery is unremarkable. INTRACRANIAL CIRCULATION: As noted above, there is loss of flow-related enhancement within the distal left vertebral artery. Elsewhere, there is no aneurysm, vascular malformation, occlusion, or stenosis of the visualized intracranial circulation. The anterior communicating artery complex is clear. Bilateral posterior communicating arteries are identified. OTHER FINDINGS: None IMPRESSION: LOSS OF FLOW-RELATED ENHANCEMENT WITHIN THE DISTAL LEFT VERTEBRAL ARTERY WHICH MAY REFLECT OCCLUSION VERSUS HIGH-GRADE STENOSIS
--- NOTE | 2018-03-17 07:39 | RAD ---
HISTORY: Stroke COMPARISONS: Head CT dated March 16, 2018, MRI dated February 07, 2015, MRI exam of the head dated March 16, 2018 TECHNIQUE: The following sequences were obtained of the head: Sagittal T1-weighted images, axial T2-weighted images, axial FLAIR images, axial susceptibility weighted images, axial T1-weighted images. Additionally, axial diffusion-weighted images were obtained with calculated apparent diffusion coefficients. FINDINGS: HEMORRHAGE/INFARCT: There is no hemorrhage or acute infarct. MASSES/SHIFT: There is no mass or shift. EXTRA-AXIAL SPACES/MENINGES: There are no extra-axial fluid collections. SULCI AND VENTRICLES: The sulci and ventricles are normal in size and position for the patient's stated age. CEREBRUM: There is multifocal and confluent elevated T2/FLAIR signal within the periventricular and subcortical white matter. This is slightly progressed from the left periatrial region compared to the January 20, 2015 examination. BRAINSTEM: There are no focal parenchymal abnormalities. CEREBELLUM: There are no focal parenchymal abnormalities. The cerebellar tonsils are normal in size and position. SELLA: The sella is normal. PINEAL: The pineal region is clear. CP ANGLE/TEMPORAL BONES: The labyrinthine structures are grossly normal. VESSELS: There is loss of the flow-void within the distal left vertebral artery. DIFFUSION ABNORMALITIES: The high signal noted within the left temporal lobe on axial image 9 of series 6 is felt to be artifactual. There is no restricted diffusion to suggest acute infarct. PARANASAL SINUSES/MASTOIDS: There is a mucous retention cyst of the right maxillary sinus. ORBITS: The orbits are unremarkable. BONES AND SOFT TISSUE: No bone or soft tissue abnormalities are noted. OTHER: None IMPRESSION: 1. NO RESTRICTED DIFFUSION TO SUGGEST ACUTE INFARCT. 2. AGAIN NOTED ARE NONSPECIFIC WHITE MATTER CHANGES. THERE HAS BEEN MILD PROGRESSION WITHIN THE LEFT PERIATRIAL REGION COMPARED TO JANUARY 20, 2015. 3. THERE IS LOSS OF THE LEFT VERTEBRAL ARTERY FLOW VOID CONSISTENT WITH OCCLUSION VERSUS HIGH-GRADE STENOSIS DESCRIBED ON THE MRA PERFORMED ON THE SAME DATE.
--- NOTE | 2018-03-17 07:45 | RAD ---
HISTORY: Stroke COMPARISONS: MRA of the head dated March 16, 2018 TECHNIQUE: The following sequences were obtained of the neck after localizing images: Stacked axial 2-D [id number] MR angiography of the neck; 3-D axial [id number] MR angiography of the carotid bifurcations. Multiple 3-D maximum intensity projection reconstructions are submitted for review. FINDINGS: AORTA: The aortic arch is not well visualized secondary to technique and motion artifact. There is no obvious ostial or proximal stenosis of the cephalic great vessels. RIGHT VERTEBRAL ARTERY: The right vertebral artery is patent and without stenosis. LEFT VERTEBRAL ARTERY: There is no flow-related enhancement within the left vertebral artery, with the exception of the distal V4 segment which is felt to represent collateral flow. DOMINANCE: The right vertebral artery is dominant. RIGHT COMMON CAROTID ARTERY: The right common carotid artery is patent. RIGHT INTERNAL CAROTID ARTERY: There is no right internal carotid artery stenosis by NASCET criteria. LEFT COMMON CAROTID ARTERY: The left common carotid artery is patent. LEFT INTERNAL CAROTID ARTERY: There is no left internal carotid artery stenosis by NASCET criteria. ADDITIONAL FINDINGS: The visualized intracranial circulation is unremarkable. On the velocity encoded imaging, there is venous signal which is felt to be artifactual given the lack of arterialized venous flow on the [id number] imaging of the neck and of the head. IMPRESSION: 1. LOSS OF FLOW-RELATED ENHANCEMENT OF THE LEFT VERTEBRAL ARTERY CONSISTENT WITH HIGH-GRADE STENOSIS OR OCCLUSION. THERE IS MINIMAL DISTAL RECONSTITUTION OF THE V4 SEGMENT FROM COLLATERAL FLOW. 2. NO INTERNAL CAROTID ARTERY STENOSIS BY NASCET CRITERIA CPT II Codes: 3100F
[2018-03-17] MEDS: Carisoprodol TAB* 350 MG PO SCH ×4 (08:02→21:33)
[2018-03-17] MEDS: Docusate CAP* 100 MG PO SCH ×2 (08:57→21:33)
[2018-03-17] MEDS: NIFEdipine CAP* 10 MG PO SCH ×3 (08:57→21:34)
[2018-03-17] MEDS: Losartan TAB* 25 MG PO SCH (08:57)
[2018-03-17] MEDS: Metoprolol Succinate XL TAB* 50 MG PO SCH (08:57)
[2018-03-17] MEDS: CMCS:Pantoprazole TAB (NF) 40 MG TAB PO SCH (08:58)
[2018-03-17] MEDS: amLODIPine TAB* 5 MG PO SCH (08:58)
[2018-03-17] MEDS: Clopidogrel TAB* 75 MG PO SCH (08:58)
[2018-03-17] MEDS: Morphine TAB Extended Release (*) 30 MG TAB.ER PO SCH ×3 (08:58→21:33)
[2018-03-17] MEDS ORDERED: Atorvastatin* 20 MG TAB PO SCH (09:00)
[2018-03-17] MEDS ORDERED: Aspirin 81 mg CHEW TAB* 81 MG TAB.CHEW PO SCH (10:00)
--- NOTE | 2018-03-17 15:00 | CONS ---
CONSULTATION REPORT: DATE OF CONSULT: 03/14/18. CONSULTING PHYSICIAN: Dr. Gordon Campbell. REASON FOR CONSULT: Evaluate for stroke. History was obtained from the patient. CHIEF COMPLAINT: Poor ambulation and not feeling well. HISTORY OF PRESENT ILLNESS: Ms. Prasad is a pleasant 63-year-old right handed female who has a history of hypertension, dyslipidemia, left vertebral artery occlusion, tobacco abuse, breast cancer in the past, Fernández esophagus who has history of rapid progressive generalized fatigue, inability to walk and not feeling well that started Saturday03/14/18. She did not have any fevers. She denied any cough, diarrhea or dysuria. She was just not feeling well overall and extremely fatigued. She slept throughout the day on Saturday. She was not eating. On Saturday, she was having trouble focusing on objects. She was unable to walk because her both legs felt like they were "Jell-O." She tried to eat yesterday but was not able to keep anything down due to nausea. She contacted her neighbor who recommended bringing her to the hospital. Since being in the hospital, the patient feels a little better but still feels woozy when ambulating. She feels slightly dizzy. She takes clopidogrel daily. Interestingly, the patient had a similar episode 5 years ago and it took her a few days before she recovered. She denied any focal weakness but does feel numbness throughout the left face, arm, and leg on the left side. She has chronic history of achalasia and has a PEG tube in order to increase her nutritional status. She also complains of chronic fatigue, intermittent horizontal diplopia that resolved with one eye closure. She favors colder climates. She denied any impairment in her bowel or bladder functions. PAST MEDICAL HISTORY: As mentioned in the HPI. PAST SURGICAL HISTORY: Cardiac cath x2, G-tube placement, hysterectomy, appendectomy, shoulder arthroscopy, left total knee replacement. MEDICATIONS: 1. Cyanocobalamin. 2. Omeprazole. 3. Prochlorperazine. 4. Amlodipine. 5. Clopidogrel. 6. Morphine. 7. Ondansetron. 8. Diphenhydramine. 9. Nitroglycerin. 10. Metoprolol. 11. Simvastatin. 12. Losartan. 13. Nortriptyline. 14. Fluticasone. 15. Nifedipine. ALLERGIES: ALBUMIN COLLOID, BEE VENOM, CONTRAST, BOTOX, PENICILLIN, SHELLFISH, ADHESIVE TAPE, CHLORHEXIDINE, LATEX, NSAIDS. FAMILY HISTORY: Mother had stroke and father had coronary artery disease. SOCIAL HISTORY: The patient lives alone. She is independent. She smokes half pack per day for 25 years. She denied recreational drug use or alcohol use. REVIEW OF SYSTEMS: A 14-point review of systems was obtained and otherwise negative except for what was mentioned in the HPI. PHYSICAL EXAM: Vitals: Blood pressure 170/89, temperature of 97.6, pulse rate 67, respiratory rate 14, oxygen saturation of 99%. General: Chronically ill- appearing, frail female who is thin and in no acute distress. She appears older than stated age. Head: Normocephalic, atraumatic without obvious abnormality. Eyes: Conjunctivae and corneas are clear. Neck: Supple and symmetric with no carotid bruits. Lungs: Clear to auscultation bilaterally and nonlabored breathing. Cardiovascular: Regular rhythm. S1, S2 are normal. Radial pulses are palpable. Extremities: Normal range of motion with no cyanosis, no hammertoes, or high arches. Skin: No skin lesion or lacerations. Psych: Affect is broad and normal mood. She did have some emotional lability and was crying throughout the interview. Neurological Examination: Mental Status: Awake and alert, oriented to person, place, time and general circumstance. She does have mild spastic dysarthria but language including expression, naming, repetition and comprehensions were assessed and found to be normal. Cranial Nerves: Normal to confrontation bilaterally with pupils mid range and reactive to light. Normal consensual response. Extraocular muscles are intact. No ptosis or asymmetric nystagmus. Sensation is intact in the forehead, cheeks, and jaw region bilaterally except for reduced sensation to light touch and pinprick on the left face involving the V1, V2, V3 distribution. No facial droop with good facial symmetry. Able to hear throughout the history process. Symmetrical palate elevation. There is normal strength against resistance. Tongue is symmetrical and midline. Motor Examination: No abnormal movements. No pronator drift. Normal bulk and tone throughout. There is neck extension of 5. Shoulder range of motion is full. Strength otherwise is 5/5 throughout. Reflexes (right/left): There is some asymmetric reflexes. Brachioradialis 2/1, biceps 2/1, triceps 2/2, patellar 3/0 , and ankle trace/trace, plantar mute response bilaterally. Sensation is reduced to light touch and pinprick on the left face, arm, and leg in a nondermatomal distribution. There is normal vibration and proprioception at the great toes. Coordination: Normal jmusec-[id number]-mycg and rapid alternating movements. Gait and station: Narrow but cautious. She did not require any assistance. LABORATORY DATA/IMAGING AND OTHER DIAGNOSTIC TESTING: WBC 7.7, hemoglobin 12.4 , hematocrit 37, platelets 246. APTT was 102 but when redoing the test was 30. Sodium of 137, potassium 3.2, BUN of 27, calcium of 8.2. Urinalysis showed 1+ blood, 1+ urine leukocyte esterase with no presence of bacteria and trace wbc. MRI of the brain without contrast was independently reviewed. There was restrictive diffusion to suggest an acute infarct. There are nonspecific white matter changes with mild progression within the left periatrial region compared to January 2015. MRA of the head showed left vertebral artery occlusion which was present in 2014 as well. ASSESSMENT: Ms. Prasad is a pleasant 63-year-old female with nonspecific complaints of generalized fatigue, lower extremity fatigue, decreased sensation in the left face, arm, and leg. She did have a similar episode 5 years ago that resolved after a few days. She also has intermittent symptoms of bilateral horizontal diplopia. On neurological assessment, the patient has reduced sensation to light touch and asymmetric hyporeflexia. She does not have any spasticity. She has negative Lhermitte sign. No history of optic neuritis. MRI images are concerning for an underlying demyelinating process. Overall, based on the clinical history and radiographic findings, I am concerned that the patient may have underlying demyelinating disease (e.g., MS) . However, to keep the differential broad, microvascular disease in the setting of uncontrolled hypertension, history of head injury and migraine headaches can also have nonspecific white matter disease. However, the current MRI findings are slightly larger than I would expect to see in microvascular disease. Therefore, I discussed the case with the patient's provider as well as the patient. We agreed to proceed with an MRI of the brain with contrast and MRI of the cervical and thoracic spine with and without contrast to evaluate for any enhancing demyelinating lesions that would satisfy the Young's criteria. We will hold off on obtaining a lumbar puncture at this point. I do not think the patient had a TIA or stroke given the negative restrictive diffusion and persistent nonspecific symptoms. She does have history of vitamin D deficiency which is a risk factor for demyelinating disease. PLAN/RECOMMENDATIONS: Please control her blood pressure and the goal should be normotensive. Smoking cessation counseling was done today with the patient. She is not ready to quit at this time. Continue neuro-checks every 4 hours. I will also order other mimickers of demyelinating disease such Sjogren, lupus, sarcoidosis, and Lyme disease. Neurology will continue to do the followup. TIME SPENT: I spent a total of 75 minutes and greater than 50% of that was spent directly reviewing the medical chart, obtaining history, examining the patient, discussing the patient's care and further testing with the primary team and discussing the treatment plan as mentioned above. [id number]/[facility] #: [id number] [place]
--- NOTE | 2018-03-17 15:44 | PN ---
Hospitalist Progress Note Date of Service: 03/17/18 Pt seen and examined. Meds and labs reviewed. When evaluated, pt was very emotional and was crying because she mentioned that a similar presentation transpired about 4 years ago. When asked if she is depressed or has anhedonia, she mentions that she is not and still enjoys her hobbies. ROS: Denied BOTELLO/dizziness, F/C, N/V, CP, SOB, increased cough, sputum production , abd pain, diarrhea, constipation, dysuria, myalgias, arthralgias, throat pain , and new skin lesions. The rest of the 14 point ROS are unremarkable. PHYSICAL EXAM: GEN APPEARANCE: Awake, not in acute distress HEENT: NC/AT, PERRLA, moist oral mucosa, (-) throat erythema NECK: Soft, supple, (-) cervical LAD, (-)JVD HEART: S1S2 WNL, RRR, No MRG CHEST: CTA, BL, GAE, No W/R/R ABD: Soft, ND/NT, NABS 4x Q EXT: No C/C/E SKIN: Warm to touch PSYCH: No active psychosis, hallucinations, depression, SI/HI ASSESSMENT AND PLAN: #Confusion, generalized weakness, and difficulty producing speech: -MRI of head did not reveal any infarct, however, non-specific white matter changes and her history is suspicious of MS; discussed with Dr. Villa who agrees with above suspicion -Awaiting W/U ordered/requested by Dr. Villa: MRI of brain with contrast, MRI of cervical and thoracic spine to see if [employer] criteria is satisfied; lumbar \ puncture depending on result of above -Continue telemetry, neurochecks, supplemental oxygen per protocol #CAD/MT -Reordered ASA at 81 mg per day after first dose yesterday at 325 -Increased Atorvastatin from home dose given LDL #HX DVT/PE -SCDs & heparin SQ #Achalasia -No acute issues -Continue watchful waiting #HTN -Review meds once reconciled #DVTp: -Heparin SQ #Dispo: -For PT eval -Awaiting (MRI with contrast) W/U described above
[2018-03-17] MEDS ORDERED: [UNRECOGNIZED DRUG - OTHER] J TUBE SCH (18:00)
[2018-03-17] MEDS ORDERED: ENTERAL NUTRITION FORMULA J TUBE SCH (18:00)
[2018-03-17] MEDS: Heparin VIAL(*) 5000 UNITS/ML VIAL (FIVE THOUSAND) SUBCUT SCH (21:31)
[2018-03-17] MEDS: Nortriptyline CAP* 10 MG PO SCH (21:34)
[2018-03-18] MEDS: Morphine ORAL.SOLN 10 mg* 2 MG/ML UDC 5 ml PO PRN ×5 (03:06→21:10)
[2018-03-18] MEDS: Heparin VIAL(*) 5000 UNITS/ML VIAL (FIVE THOUSAND) SUBCUT SCH ×3 (05:12→21:09)
[2018-03-18] MEDS: Losartan TAB* 25 MG PO SCH (08:13)
[2018-03-18] MEDS: Clopidogrel TAB* 75 MG PO SCH (08:13)
[2018-03-18] MEDS: Metoprolol Succinate XL TAB* 50 MG PO SCH (08:13)
[2018-03-18] MEDS: CMCS:Pantoprazole TAB (NF) 40 MG TAB PO SCH (08:13)
[2018-03-18] MEDS: Atorvastatin* 20 MG TAB PO SCH (08:13)
[2018-03-18] MEDS: NIFEdipine CAP* 10 MG PO SCH ×3 (08:13→20:41)
[2018-03-18] MEDS: Morphine TAB Extended Release (*) 30 MG TAB.ER PO SCH ×3 (08:13→20:41)
[2018-03-18] MEDS: Carisoprodol TAB* 350 MG PO SCH ×4 (08:13→20:41)
[2018-03-18] MEDS: amLODIPine TAB* 5 MG PO SCH (08:13)
[2018-03-18] MEDS: Docusate CAP* 100 MG PO SCH ×2 (08:44→20:40)
[2018-03-18] MEDS ORDERED: Diazepam TAB(*) 5 MG PO ONE (09:41)
[2018-03-18] MEDS ORDERED: Gadoteridol* (CONTRAST) 279.3 MG/ML 10 ML IV ONE (11:55)
--- NOTE | 2018-03-18 13:03 | RAD ---
HISTORY: Left-sided numbness, multiple sclerosis COMPARISONS: None relevant TECHNIQUE: The following sequences were obtained of the thoracic spine: Sagittal T1 and T2-weighted images, sagittal STIR images, coronal T2-weighted images, and axial T2-weighted images. . FINDINGS: Localization is based on counting from C2 SPINAL CORD, CONUS, AND CAUDA EQUINA: The visualized spinal cord, conus, and cauda equina are normal in caliber, position, and signal intensity. ALIGNMENT: The alignment is normal. VERTEBRAL BODIES: There is a Schmorl's node of the superior endplate of L1 with minimal retropulsion of the posterior cortex of the superior endplate. The vertebral bodies are otherwise preserved in height. The bones are normal signal intensity. JOINTS: There is mild osteoarthritis of the costovertebral articulations. MUSCULATURE: Normal INTERVERTEBRAL DISCS: There is mild diffuse loss of intervertebral disc height and T2 signal throughout the spine. AXIAL IMAGES: There is no central canal stenosis or neuroforaminal narrowing. SOFT TISSUES: The visualized soft tissues of the chest and upper abdomen are unremarkable. OTHER: None. IMPRESSION: 1. MILD DEGENERATIVE CHANGES. 2. NO ABNORMAL CORD SIGNAL. 3. NO SIGNIFICANT NEURAL FORAMINAL NARROWING OR CENTRAL CANAL STENOSIS.
--- NOTE | 2018-03-18 13:21 | RAD ---
HISTORY: Evaluate for multiple sclerosis, left-sided numbness COMPARISONS: None relevant TECHNIQUE: The following sequences were obtained of the cervical spine: Sagittal T1- and T2-weighted images, sagittal STIR images, axial T2-weighted images, and axial gradient echo images. Additionally, axial and sagittal T1 weighted images were obtained after contrast enhancement with a gadolinium-based intravenous contrast agent.. FINDINGS: BRAIN AND SPINAL CORD: The visualized spinal cord is normal in caliber, position, and signal intensity. The visualized portion of the brain is unremarkable. The cerebellar tonsils are normal in position. ALIGNMENT: There is straightening with mild reversal of the normal cervical lordosis. There is grade 1 anterolisthesis of C3 on C4. VERTEBRAL BODIES: There is multilevel anterolateral marginal osteophyte formation. Incidentally noted is a persistent subdental synchondrosis. JOINTS: There is osteoarthritis of the uncovertebral and facet joints. MUSCULATURE: Unremarkable INTERVERTEBRAL DISCS: There is diffuse loss of intervertebral disc height and T2 signal throughout the spine. AXIAL IMAGES: C2-C3: There is bilateral uncovertebral and facet hypertrophy. There is moderate bilateral neural foraminal narrowing. There is mild narrowing of the central canal. C3-C4: There is a broad-based disc osteophyte complex with bilateral uncovertebral and facet hypertrophy. There is moderate bilateral neural foraminal narrowing. There is no significant central canal stenosis. C4-C5: There is a broad-based disc osteophyte convex bilateral uncovertebral and facet hypertrophy. There is severe bilateral neural foraminal narrowing. There is moderate narrowing of the central canal. C5-C6: There is bilateral uncovertebral and facet hypertrophy. There is severe bilateral neural foraminal narrowing. There is moderate narrowing of the central canal. C6-C7: There is bilateral uncovertebral and facet hypertrophy. There is severe bilateral neural foraminal narrowing. There is moderate narrowing of the central canal. C7-T1: There is bilateral facet hypertrophy. There is moderate right and mild left neural foraminal narrowing. There is no significant central canal stenosis. SOFT TISSUES: The visualized soft tissues of the neck are unremarkable. OTHER: There is no abnormal enhancement. IMPRESSION: 1. NO ABNORMAL CORD SIGNAL OR ABNORMAL ENHANCEMENT. 2. DEGENERATIVE DISC DISEASE AND OSTEOARTHRITIS. 3. THERE IS MODERATE NARROWING OF THE CENTRAL CANAL AT C4-C5, C5-C6, AND C6-C7, WITH MILD NARROWING AT C2-C3. 4. THERE IS MULTILEVEL NEURAL FORAMINAL NARROWING DESCRIBED ABOVE.
--- NOTE | 2018-03-18 13:24 | RAD ---
HISTORY: Evaluate for multiple sclerosis, left-sided numbness COMPARISONS: March 16, 2018 TECHNIQUE: The following sequences were obtained of the head: Sagittal FLAIR images, sagittal, axial, and coronal T1-weighted images after contrast enhancement with a gadolinium-based intravenous contrast agent. FINDINGS: This study is limited conjunction with the MRI of March 16, 2018. Again noted is multifocal elevated T2/FLAIR signal within the periventricular and subcortical white matter. These do not enhance. Again noted is loss of the flow-void within the distal left vertebral artery.. IMPRESSION: 1. THE WHITE MATTER LESIONS DESCRIBED ON THE PREVIOUS EXAMINATION DO NOT ENHANCE. THERE IS NO ABNORMAL ENHANCEMENT ELSEWHERE. 2. AGAIN NOTED IS LOSS OF THE FLOW-VOID OF THE DISTAL LEFT VERTEBRAL ARTERY
--- NOTE | 2018-03-18 16:49 | PN ---
Hospitalist Progress Note Date of Service: 03/18/18 Pt seen and examined. Meds and labs reviewed. ROS: Denied BOTELLO/dizziness, F/C, N/V, CP, SOB, increased cough, sputum production , abd pain, diarrhea, constipation, dysuria, myalgias, arthralgias, throat pain , and new skin lesions. The rest of the 14 point ROS are unremarkable. PHYSICAL EXAM: GEN APPEARANCE: Awake, not in acute distress HEENT: NC/AT, PERRLA, moist oral mucosa, (-) throat erythema NECK: Soft, supple, (-) cervical LAD, (-)JVD HEART: S1S2 WNL, RRR, No MRG CHEST: CTA, BL, GAE, No W/R/R ABD: Soft, ND/NT, NABS 4x Q EXT: No C/C/E SKIN: Warm to touch PSYCH: No active psychosis, hallucinations, depression, SI/HI ASSESSMENT AND PLAN: #Confusion, generalized weakness, and difficulty producing speech: -MRI of head did not reveal any infarct, however, non-specific white matter changes and her history is suspicious of MS; discussed with Dr. Villa who agrees with above suspicion - MRI of brain with contrast, MRI of cervical and thoracic spine does not support suspicion of possible MS and shows mild encephalopathy with non- specific white matter changes -On review of VS around admission, it is also possible pt may have had hypertensive urgency -Discussed with Dr. Villa -Continue telemetry, neurochecks, supplemental oxygen per protocol #CAD/NE -Continue ASA and statins #HX DVT/PE -SCDs & heparin SQ #Achalasia -No acute issues -Continue watchful waiting #HTN -Review meds once reconciled #DVTp: -Heparin SQ #Dispo: -For PT eval -Possible D/C in AM if unremarkable O/N stay
[2018-03-18] MEDS: Nortriptyline CAP* 10 MG PO SCH (20:41)
[2018-03-19] MEDS: Morphine ORAL.SOLN 10 mg* 2 MG/ML UDC 5 ml PO PRN ×4 (01:58→12:12)
[2018-03-19] MEDS: Heparin VIAL(*) 5000 UNITS/ML VIAL (FIVE THOUSAND) SUBCUT SCH ×2 (05:09→14:20)
--- NOTE | 2018-03-19 06:03 | PN ---
NEUROLOGY PROGRESS NOTE: DATE OF SERVICE: 03/18/18 REASON FOR VISIT: Neurology is following for evaluation and management of the patient's generalized malaise, fatigue, and transient lower extremity weakness. SUBJECTIVE: The patient slept well overnight. She has no acute complaint other than still feeling slightly tired, fatigued, and the wavy sensation that she feels between her eyes. She has no double vision today. When asked about the double vision yesterday, she stated that it comes in sporadic changes in time. She denied any headaches, acute visual disturbance, or swallowing difficulty. She denied any chest pain, shortness of breath, or palpitations. MEDICATIONS: 1. Acetaminophen. 2. Albuterol. 3. Amlodipine. 4. Atorvastatin. 5. Clopidogrel. 6. Heparin subcutaneous every 8 hours. 7. Losartan. 8. Melatonin. 9. Metoprolol. 10. Morphine. 11. Nifedipine. 12. Nortriptyline. 13. Ondansetron. 14. Pantoprazole. 15. Prochlorperazine. REVIEW OF SYSTEMS: As per HPI. She was unable to have the MRIs done yesterday but are scheduled for today hopefully. PHYSICAL EXAMINATION: Vitals: Temperature 98.7, pulse of 60, respiratory rate 16, oxygen saturation 96%, blood pressure is 144/78. General: Well-nourished, well- developed, frail female in no acute distress. Head is normocephalic, atraumatic. Eyes: Conjunctivae/corneas were clear. Lungs are clear to auscultation bilaterally. Cardiovascular: Regular rate and rhythm with normal S1, S2. Extremities: Normal range of motion without any cyanosis. Psych: Affect is broad and normal mood. Neurological Examination: Mental status: Awake and alert, oriented to person, place, and time, and general circumstance. Her speech is much better today and she does not have any dysarthria. Her language including expression, naming, repetition, and comprehension were assessed and found to be normal. Cranial Nerves: Pupils equal, round, and reactive to light. Extraocular muscles are intact. There is no facial asymmetry. She has a splitting of the forehead on the vibratory sensation with decreased sensation to light touch and pinprick on the left face. Tongue is symmetric and midline with no anterior fasciculation. Motor examination: No abnormal movements or pronator drift. She is less hypertonic in the lower extremity. There is no fasciculation. She has normal strength 5/5 throughout in the upper and lower extremities. Reflexes: Slight hyperreflexia on the right brachioradialis, right biceps, right patella, otherwise 2+ throughout. Sensation is decreased to light touch and pinprick in the left arm and left leg in a nondermatomal fashion. There is normal vibratory sensation at the toes. Coordination: Normal jyoxrl-hl-ckon and rapid alternating movements. Gait and station: Narrow based, normal stance and gait. No ataxia. LABORATORY DATA: Vitamin D level is low at 19.7. Vitamin B12 is 418. ASSESSMENT: 1. Generalized malaise. 2. Transient lower extremity fatigue/weakness. 3. Hypertensive urgency. 4. Vitamin D deficiency. RECOMMENDATIONS: We are pending the MRI brain with contrast, MRI C-spine with and without contrast, and MRI of the thoracic spine with and without contrast. Please start her on vitamin D supplementation 2000 International Units a day in addition to the 50,000 International Units a week that she is receiving. She should have the vitamin D checked in 3 months. Continue vitamin B12 supplementation. It seems like her symptoms significantly improved after improving her blood pressure as she is within normal range at this point. Her dysarthria nearly resolved. Although demyelinating disease is still in the differential, it is less likely to improve this quickly. She probably has hypertensive small vessel microvascular changes in the brain that is causing the abnormal MRI of the brain rather than demyelinating disease; however, it is reasonable to keep demyelinating disease in the differential given her acute complaints of lower extremity fatigue/weakness that improved over the last few days. Further work-up can be done as an outpatient if the MRIs show no areas of enhancement. Pending Lyme disease PCR, SSA, SSB, ALANNA, and angiotensin- converting enzyme laboratory values. Continue PT/OT. I will continue to follow. TIME SPENT: I spent a total of 25 minutes and greater than 50% of that was spent directly reviewing the medical chart, examining the patient, and discussing the treatment plan as mentioned above. [id number]/[facility] #: [id number] [place]
[2018-03-19] MEDS: Docusate CAP* 100 MG PO SCH (07:53)
[2018-03-19] MEDS: Losartan TAB* 25 MG PO SCH (08:03)
[2018-03-19] MEDS: Carisoprodol TAB* 350 MG PO SCH ×2 (08:04→12:13)
[2018-03-19] MEDS: amLODIPine TAB* 5 MG PO SCH (08:04)
[2018-03-19] MEDS: CMCS:Pantoprazole TAB (NF) 40 MG TAB PO SCH (08:04)
[2018-03-19] MEDS: Atorvastatin* 20 MG TAB PO SCH (08:04)
[2018-03-19] MEDS: Metoprolol Succinate XL TAB* 50 MG PO SCH (08:04)
[2018-03-19] MEDS: Morphine TAB Extended Release (*) 30 MG TAB.ER PO SCH ×2 (08:04→14:08)
[2018-03-19] MEDS: Clopidogrel TAB* 75 MG PO SCH (08:04)
[2018-03-19] MEDS: NIFEdipine CAP* 10 MG PO SCH ×2 (08:04→14:21)
[2018-03-19 12:17] VITALS: BP 118/75
--- NOTE | 2018-03-20 06:39 | PN ---
NEUROLOGY PROGRESS REPORT: DATE OF SERVICE: 03/19/18 PRIMARY CARE PHYSICIAN: Oliver Pruitt MD Neurology is following for the evaluation and management of transient bilateral lower extremity weakness, fatigue. SUBJECTIVE: The patient is sitting in the chair comfortably and requesting to go home. She has no recurrence of her symptoms. She has been walking around the hallway without any complications. She denied any focal weakness or paresthesias. She denied any headaches, visual disturbance, or swallowing difficulty. She has not had any of the hazy/wavy movements that she was seeing in the last few days. MEDICATIONS: 1. Acetaminophen. 2. Albuterol. 3. Amlodipine. 4. Atorvastatin. 5. Clopidogrel. 6. Docusate. 7. Losartan. 8. Melatonin. 9. Metoprolol. 10. Morphine. 11. Nifedipine. 12. Nortriptyline. 13. Ondansetron. 14. Pantoprazole. 15. Prochlorperazine. REVIEW OF SYSTEMS: She denies any chest pain, shortness of breath, palpitations. PHYSICAL EXAMINATION: Vitals: Temperature of 97.9, pulse of 66, respiratory rate is 16, oxygen saturation 97, blood pressure 137/77. General: Well- nourished, well- appearing female in no acute distress. Atraumatic, normocephalic without any obvious abnormality. Eyes: Conjunctivae/corneas were clear. Neck is supple and symmetrical. Negative Lhermitte sign. Lungs were clear to auscultation bilaterally. Nonlabored breathing. Skin: No skin lesions or lacerations. Psychiatric: Affect is broad and normal mood. Easy to establish a rapport. Neurological Examination: Mental status: Awake and alert, oriented to person, place, and time, and general circumstances. Cranial Nerves: Pupils equal, round, and reactive to light. Extraocular muscles are intact. No facial asymmetry. Tongue is midline and symmetric. Motor examination: No abnormal movements. No pronator drift. She can elevate both arms and legs against resistance symmetrically. Reflexes: 3+ on the right brachioradialis, right biceps, right patella, otherwise 2+ throughout the left side and both ankles. Sensation is decreased to light touch and pinprick in the left arm and leg in a nondermatomal fashion. There is splitting of the vibratory sensation on the forehead. Normal [id number] and rapid alternating movements. Narrow based , normal stance, no ataxia. LABORATORY DATA: She has not had any recent labs except that her vitamin B12 was checked 2 days ago, which was 418 and her vitamin D level was 19. IMAGING: Brain MRI with contrast showed no evidence of acute enhancement. MRI of the cervical spine without contrast completed on 02/19/2018 showed no abnormal cord signal or abnormal enhancement. There is degenerative disk disease with moderate narrowing of the central canal at C4-C5, C5-C6, and C6-7 with mild narrowing at C2- 3. MRI of the thoracic spine completed on 03/18/18 showed evidence of mild degenerative changes with no abnormal cord signal enhancement. I personally reviewed these images. ASSESSMENT: 1. This is a pleasant 63-year-old female who presented with hypertensive urgency who had symptoms of generalized fatigue and reported symptoms of lower extremity weakness that resolved. She had no lateralizing signs or focal neurological deficits on examination except for subjective sensory abnormality to light touch in the left face, arm, and leg. There are no objective findings on images to explain her sensory abnormalities. Demyelinating disease was a concern, but images of the neural axis did not show any evidence of abnormal enhancing lesions. Therefore, I suspect her presentation of chronic fatigue and bilateral transient lower extremity weakness that have resolved may have been related to hypertensive urgency. If has recurrence of symptoms, I recommend doing an LP to evaluate for oligoclonal bands, IgG index and getting visual evoked potential. 2. Cervical spondylosis with mild myelopathy - we discussed conservative management with possibly considering outpatient physical therapy and reducing any possible activities that may trigger any neck discomfort or worsen the neck spondylosis. 3. Hypertensive urgency - significantly improved. Her symptoms are nearly resolved after improving her blood pressure. 4. Vitamin D deficiency. RECOMMENDATIONS: As mentioned above. The patient can be discharged home. Please provide the patient with our clinic contact information to follow up with us as an outpatient. The patient is cleared for discharge from the neurology standpoint. Please contact me for any questions or concerns. [id number]/[facility] #: [id number] INDIO
--- NOTE | 2018-03-20 19:50 | DS ---
CC: Dr. Campbell; Dr. Aziza Bueno; Dr. Tiera Villa; Dr. Trish Combs. * DISCHARGE SUMMARY: DATE OF ADMISSION: DATE OF DISCHARGE: 03/19/18 DISCHARGE DIAGNOSES: As follows: 1. Transient ischemic attack. 2. Nonspecific white matter lesions likely secondary to encephalomalacia given her multiple comorbidities. 3. Coronary artery disease/myocardial infarction. 4. History of deep vein thrombosis/pulmonary embolism. 5. History of achalasia. HISTORY OF PRESENT ILLNESS/HOSPITAL COURSE: The patient is a 63-year-old lady with a history of DVT/PE, CAD status post WA, as well as previous history of TIA who was at home back on 03/16/18 in the evening when around 1800 she experienced rapid onset of confusion, generalized weakness, and difficulty producing speech. She also mentions that she has been having some double vision for the past 1 or 2 months and is currently being worked up by her PCP. She was able to call her neighbor informing her of her symptoms who drove her to [facility]. She was admitted with a suspicion for possible TIA versus CVA. Her brain MRI, noncontrast done 03/18/18 which showed some multifocal elevated T2/FLAIR signal within the periventricular and subcortical white matter. Furthermore, there is a noted loss of flow of the distal left vertebral artery, both of which were discussed with Dr. Villa of Neurology where he mentioned that the left vertebral artery loss of flow is not unusual and in most people, usually the left is usually much narrower than the right and [place] of [place] circulation is functioning. There would be nothing to do for the vertebral artery noted. The white matter lesions, however, given her sings and symptoms that seem to be initially at first by time and space was further investigated by cervical, thoracic, as well as brain MRI with contrast. However, all 3 tests did not suggest multiple sclerosis. The patient was advised to follow up with her primary care physician within 3 days post discharge, to take her medications as prescribed and to follow with Neurology within 2 months post discharge. PHYSICAL EXAMINATION: Shows her most recent vital signs of record with blood pressure of 118/75, respiratory rate of 16. HEENT: Normocephalic, atraumatic. PERRLA. Extraocular muscles intact. Negative for icterus. Moist oral mucosa. Negative throat erythema. Neck is soft, supple with no cervical lymphadenopathy. No JVD. Heart: S1 and S2 within normal limits. Regular rate and rhythm. No murmurs, rubs, or gallops. Chest: Clear to auscultation bilaterally. Good air entry. No wheezes, rales, or rhonchi. Abdomen is soft, nondistended, and nontender. Normoactive bowel sounds 4 times Q. Extremities: No cyanosis, clubbing, or edema. Psychiatric: No active psychosis, depression, suicidal or homicidal ideation. Skin is warm to touch. DISCHARGE MEDICATIONS: As follows: 1. Tylenol 650 p.o. q.6. p.r.n. 2. Albuterol 2 puffs inhalation q.4 hours p.r.n. 3. Amlodipine 10 mg p.o. q.a.m. 4. Carisoprodol 350 mg p.o. 4 times a day. 5. Plavix 75 mg p.o. q. a.m. 6. Cyanocobalamin 1000 mcg/mL vial, 1000 mcg IM q. monthly. 7. Diphenhydramine 50 mg p.o. q.6 p.r.n. 8. Colace 200 mg p.o. b.i.d. 9. Epinephrine 0.3 mg per 0.3 mL IM once, p.r.n. 10. Fluticasone 2 sprays both nares b.i.d. 11. Ketotifen fumarate 1 drop both eyes b.i.d. 12. Lactose-reduced food fiber 237 mL liquid. 13. Jevity 1.5, resume tube feeds given her J-tube. 14. Losartan 50 mg p.o. q.a.m. 15. Melatonin 3 mg p.o. at bedtime. 15. Metoprolol succinate 50 mg p.o. q.a.m. 16. Morphine sulfate 30 mg p.o. t.i.d. 17. Nifedipine 10 mg p.o. t.i.d. 18. Nortriptyline 20 mg p.o. at bedtime. 19. Omeprazole 40 mg p.o. daily. 20. Ondansetron 4 mg p.o. q.8 hours p.r.n. 21. Prochlorperazine 10 mg p.o. b.i.d. p.r.n. 22. Simvastatin 40 mg p.o. q.a.m. TIME SPENT: The total time spent evaluating the patient, reviewing pertinent data, and appropriate documentation is greater than 30 minutes. [id number]/[facility] #: [id number] MTDD
== END 2018-03-19 14:22 | disposition home health service (06) | DRG 47 ==
LOC: ED 19:05 → UNDOADMIN 23:39 → MEDTELE 23:39 → OBSVTOIN 03-18 09:00
PROVIDERS: ADMIT Hospitalist; ATTEND Student in an Organized Health Care Education/Training Program
DX: G45.9 Transient cerebral ischemic attack, unspecified (principal); M47.12 Other spondylosis with myelopathy, cervical region; Z68.1 Body mass index [BMI] 19.9 or less, adult; I25.10 Atherosclerotic heart disease of native coronary artery without angina pectoris; I10 Essential (primary) hypertension; E78.5 Hyperlipidemia, unspecified; K22.70 Barrett's esophagus without dysplasia; Z96.652 Presence of left artificial knee joint; F17.210 Nicotine dependence, cigarettes, uncomplicated; R63.6 Underweight; I65.02 Occlusion and stenosis of left vertebral artery; J44.9 Chronic obstructive pulmonary disease, unspecified; K57.90 Diverticulosis of intestine, part unspecified, without perforation or abscess without bleeding; K21.9 Gastro-esophageal reflux disease without esophagitis; M19.90 Unspecified osteoarthritis, unspecified site; F41.9 Anxiety disorder, unspecified; R29.704 NIHSS score 4; I16.0 Hypertensive urgency; E55.9 Vitamin D deficiency, unspecified; G93.89 Other specified disorders of brain; Z79.02 Long term (current) use of antithrombotics/antiplatelets; I25.2 Old myocardial infarction; Z86.73 Personal history of transient ischemic attack (TIA), and cerebral infarction without residual deficits; Z85.3 Personal history of malignant neoplasm of breast; Z91.030 Bee allergy status; Z91.041 Radiographic dye allergy status; Z91.040 Latex allergy status; Z88.0 Allergy status to penicillin; Z91.013 Allergy to seafood; Z88.8 Allergy status to other drugs, medicaments and biological substances; Z91.048 Other nonmedicinal substance allergy status; Z90.710 Acquired absence of both cervix and uterus; Z90.49 Acquired absence of other specified parts of digestive tract; Z82.49 Family history of ischemic heart disease and other diseases of the circulatory system; Z82.3 Family history of stroke; Z86.718 Personal history of other venous thrombosis and embolism; Z86.711 Personal history of pulmonary embolism; Z93.1 Gastrostomy status; Z95.5 Presence of coronary angioplasty implant and graft; Z87.01 Personal history of pneumonia (recurrent); Z87.442 Personal history of urinary calculi; Z90.13 Acquired absence of bilateral breasts and nipples; Z90.711 Acquired absence of uterus with remaining cervical stump; Z83.3 Family history of diabetes mellitus; Z79.891 Long term (current) use of opiate analgesic
CPT/HCPCS: 36415; 70450; 70544; 70547; 70551; 70552; 71045; 72146; 72156; 80053; 80061; 81003; 81015; 82164; 82306; 82565; 82607; 83605; 84484; 84520; 85025; 85060; 85610; 85730; 86038; 86235; 86850; 86900; 86901; 87086; 87476; 87798; 93005; 99285; 99406; A9270-GY; A9579; G0378; G8987-GO-CI; G8988-GO-CI; G8989-GO-CI; J1642; J1644; J2270; J3480; Q0164

== ENCOUNTER 2018-04-13 04:15 | Inpatient (IN) | payer OTHER ==
[2018-04-13] MEDS ORDERED: Nitroglycerin TAB 0.4 MG* 0.4 MG TAB SL ONE (04:59)
[2018-04-13] MEDS ORDERED: Morphine VIAL* 4 MG/ML VIAL (1 ml vial) IV ONE ×5 (04:59→13:01)
[2018-04-13] MEDS ORDERED: Metoclopramide IV* 5 MG/ML 2 ML VIAL IV ONE (05:00)
[2018-04-13 05:33] LABS: ABS Basophils 0 10^3/ul (0-0.2); ABS Eosinophils 0 10^3/ul (0-0.6); ABS Lymphocytes 1.1 10^3/ul (1.0-4.8); ABS Monocytes 0.5 10^3/ul (0-0.8); ABS Neutrophils 9.2 10^3/ul (1.5-7.7); ABS Nucleated RBC 0 10^3/ul; Eosinophil % 0.1 % (0-6); Hematocrit 42 % (35-47); Hemoglobin 14.7 g/dl (12.0-16.0); Lymphocyte % 9.8 % (25-47); Mean Corpuscular HGB Conc 35 g/dl (31-36); Mean Corpuscular Hemoglobin 30 pg (27-31); Mean Corpuscular Volume 86 fL (80-97); Mean Platelet Volume 7.7 um3 (7.4-10.4); Nucleated Red Blood Cells % 0.2; Platelet Count 323 10^3/ul (150-450); Red Blood Count 4.82 10^6/ul (4.00-5.40); Red Cell Distribution Width 14 % (10.5-15); White Blood Count 10.8 10^3/ul (3.5-10.8)
[2018-04-13 05:41] LABS: INR 0.9 (0.77-1.02)
[2018-04-13] MEDS ORDERED: Ondansetron INJ* 2 MG/ML VIAL IV ONE (06:29)
[2018-04-13 06:33] LABS: EGFR Non-African American 70.4 (>60)
[2018-04-13] MEDS ORDERED: Labetalol IV* 5 MG/ML 20 ML VIAL IV PUSH ONE (06:49)
[2018-04-13] MEDS ORDERED: NS 0.9% 1000 ML* 1,000 ML IV ONE ×2 (06:50→12:50)
[2018-04-13] MEDS ORDERED: Pantoprazole IV* 40 MG IV ONE (06:57)
--- NOTE | 2018-04-13 06:57 | ED ---
Quiana Chatterjee SooYoung, scribed for Cyndie Mcintyre MD on 04/13/18 at 0501 . HPI Chest Pain - HPI Summary HPI Summary: A 63 y/o F with pert PMHx: VA, HTN, achalasia, presents to ED with acute midsternal CP onset this AM [employer]. Pain is rated as 10 out of 10, is non-radiating , and woke her from sleep. Associated sx: chills, productive cough, dry heaving , abd pain. Pt takes morphine and compazine. She last took her BP medicine yesterday. - History of Current Complaint Chief Complaint: EDNauseaVomitDiarrh Time Seen by Provider: 04/13/18 04:35 Hx Obtained From: Patient Onset/Duration: Still Present Timing: Constant Current Severity: Severe Pain Intensity: 10 Pain Scale Used: 0-10 Numeric Chest Pain Location: Mid Sternal Chest Pain Radiates: No Associated Signs and Symptoms: Positive: Chills, Productive Cough, Abdominal Pain, Other: - dry heaving - Additional Pertinent History Primary Care Physician: [id number] - Allergy/Home Medications Allergies/Adverse Reactions: Allergies Allergy/AdvReac Type Severity Reaction Status Date / Time albumin colloid, human Allergy Severe Anaphylatic Verified 03/12/18 10:23 Shock bee venom protein (honey bee) Allergy Severe Anaphylatic Verified 03/12/18 10:23 Shock Iodinated Contrast- Oral and Allergy Severe Anaphylatic Verified 03/12/18 10:23 IV Dye Shock onabotulinumtoxinA Allergy Severe Anaphylatic Verified 03/12/18 10:23 [From Botox] Shock Penicillins Allergy Severe Anaphylatic Verified 03/12/18 10:23 Shock shellfish derived Allergy Severe Anaphylatic Verified 03/12/18 10:23 Shock Adhesive Tape Allergy Mild Itching Verified 03/17/18 00:47 chlorhexidine Allergy Mild Rash And Verified 03/17/18 00:47 Itching latex Allergy Mild Hives Verified 03/17/18 00:47 NSAIDS (Non-Steroidal Allergy Mild Hives Verified 03/17/18 00:47 Anti-Inflamma povidone-iodine Allergy Mild Itching Verified 03/17/18 00:47 ENVIRONMENTAL/SEASONAL Allergy Mild ITCHY,WATERY Uncoded 03/17/18 00:47 HAYFEVER EYES, SNEEZE, CONGESTION PMH/Surg Hx/FS Hx/Imm Hx Previously Healthy: No Endocrine/Hematology History: Reports: Hx Anticoagulant Therapy - plavix, Hx Anemia - possible Denies: Hx Diabetes, Hx Thyroid Disease Cardiovascular History: Reports: Hx Angina - has prn nitro, Hx Coronary Artery Disease - 2 stents- RCA stent 2006, LAD stent 2007, Hx Deep Vein Thrombosis, Hx Embolism, Hx Hypercholesterolemia, Hx Hypertension, Hx Myocardial Infarction, Hx Syncope, Other Cardiovascular Problems/Disorders - cardiac cath Denies: Hx Congestive Heart Failure, Hx Pacemaker/ICD, Hx Valvular Heart Disease Respiratory History: Reports: Hx Chronic Obstructive Pulmonary Disease (COPD) - Pt denies though providers have diagnosed it, Hx Pneumonia, Hx Pulmonary Embolism - and DVT 30 yrs ago, Hx Seasonal Allergies, Other Respiratory Problems /Disorders - SMOKER Denies: Hx Asthma, Hx Sleep Apnea GI History: Reports: Hx Diverticulosis, Hx Gastroesophageal Reflux Disease, Hx Hiatal Hernia - 3 surgeries, Other GI Disorders - achalasia, Fernández's esophagus , has a JG tube Denies: Hx Ulcer History: Reports: Hx Kidney Infection, Hx Kidney Stones - LAST 12/2015- NO PROBLEMS SINCE PER PATIENT Denies: Hx Dialysis, Hx Renal Disease, Other Problems/Disorders Musculoskeletal History: Reports: Hx Arthritis, Hx Back Problems - L1 fx, Other Musculoskeletal History - L1 fx Denies: Hx Osteoporosis Sensory History: Reports: Hx Cataracts - maryuri, Hx Contacts or Glasses Denies: Hx Hearing Aid Opthamlomology History: Reports: Hx Cataracts - maryuri, Hx Contacts or Glasses Neurological History: Reports: Hx Spinal Cord Injury - L1, Hx Transient Ischemic Attacks (TIA), Other Neuro Impairments/Disorders - POSSIBLE SMALL TIA'S - 3 yrs ago Psychiatric History: Reports: Hx Anxiety Denies: Hx Panic Disorder - Cancer History Cancer Type, Location and Year: RT BREAST CA, 2009 HAD A BILATERAL MASTECTOMY Hx Chemotherapy: No Hx Radiation Therapy: No - Surgical History Surgery Procedure, Year, and Place: RT LUMPECTOMY 02/2010, BILATERAL MASTECTOMY ,. 2006& 2007 CARDIAC STENT AT [facility] IN [place],. LEFT KNEE SURGERY X10,. BILATERAL SHOULDER SURGERY,. ESPOHOGEAL SURGERY,1996, 2015. failed breast implant on left. PARTIAL HYSTERECTOMY, 1976. APPENDIX A CHILD,. CHEST TUBE, 1996. ESOPHAGEAL DILATION. NISSIN FUNDOLPICATION multiple. total left knee replacement 2016. kidney stone surgery. left chest wound surgery 2010. Insertion Infusaport 02/2018 Hx Anesthesia Reactions: No - Immunization History Date of Tetanus Vaccine: up to date Date of Influenza Vaccine: 06/2016 Infectious Disease History: No Infectious Disease History: Reports: Hx Clostridium Difficile Denies: Hx Hepatitis, Hx Human Immunodeficiency Virus (HIV), Hx of Known/ Suspected MRSA, Hx Shingles, Hx Tuberculosis, Hx Known/Suspected VRE, Hx Known/ Suspected VRSA, History Other Infectious Disease, Traveled Outside the [place] in Last 30 Days - Family History Known Family History: Positive: Cardiac Disease - Father, 2 brothers - VA. Mother - AFIB, Hypertension, Diabetes - Social History Occupation: Disabled Lives: Alone Alcohol Use: None Hx Substance Use: No Substance Use Type: Reports: Prescribed Substance Use Comment - Amount & Last Used: prescribed Hx Tobacco Use: Yes Smoking Status (MU): Light Every Day Tobacco Smoker Type: Cigarettes Amount Used/How Often: smoked for 40 years started 1ppd down to a couple of cigaretes a day Length of Time of Smoking/Using Tobacco: 40+ YEARS Have You Smoked in the Last Year: No Review of Systems Positive: Chills Positive: Chest Pain Positive: Cough Positive: Abdominal Pain, Other - dry heaving All Other Systems Reviewed And Are Negative: Yes Physical Exam - Summary Physical Exam Summary: GENERAL: Patient is a well-developed and nourished F who is lying uncomfortably on the stretcher. Patient is not in any acute respiratory distress. HEAD AND FACE: Normocephalic EYES: PERRLA, EOMI x 2. EARS: Hearing grossly intact. MOUTH: Oropharynx within normal limits. NECK: Supple, trachea is midline, no adenopathy, no JVD, no carotid bruit. CHEST: Symmetric, no tenderness at palpation LUNGS: Clear to auscultation bilaterally. No wheezing or crackles. CVS: Regular rate and rhythm, S1 and S2 present, no murmurs or gallops appreciated. ABDOMEN: Soft, non-tender. Bowel sounds are normal. No abdominal abnormal pulsations. EXTREMITIES: Full ROM in all major joints, no edema, no cyanosis or clubbing. NEURO: Alert and oriented x 3. No acute neurological deficits. Speech is normal and follows commands. SKIN: Dry and warm Triage Information Reviewed: Yes Vital Signs On Initial Exam: Initial Vitals Temp Pulse Resp BP Pulse Ox 98 F 71 22 188/122 98 06/24/18 04:18 04/13/18 04:18 04/13/18 04:18 04/13/18 04:18 04/13/18 04:18 Vital Signs Reviewed: Yes Diagnostics - Vital Signs Vital Signs Temp Pulse Resp BP Pulse Ox 04/13/18 04:39 81 97 04/13/18 04:34 219/126 04/13/18 04:18 98 F 71 22 188/122 98 - Laboratory Lab Results: Lab Results 04/13/18 04/13/18 04/13/18 Range/Units 04:43 04:43 04:43 WBC 10.8 (3.5-10.8) 10^3/ul RBC 4.82 (4.00-5.40) 10^6/ul Hgb 14.7 (12.0-16.0) g/dl Hct 42 (35-47) % MCV 86 (80-97) fL MCH 30 (27-31) pg MCHC 35 (31-36) g/dl RDW 14 (10.5-15) % Plt Count 323 (150-450) 10^3/ul MPV 7.7 (7.4-10.4) um3 Neut % (Auto) 84.9 H (38-83) % Lymph % (Auto) 9.8 L (25-47) % Story % (Auto) 5.0 (0-7) % Eos % (Auto) 0.1 (0-6) % Baso % (Auto) 0.2 (0-2) % Absolute Neuts (auto) 9.2 H (1.5-7.7) 10^3/ul Absolute Lymphs (auto) 1.1 (1.0-4.8) 10^3/ul Absolute Monos (auto) 0.5 (0-0.8) 10^3/ul Absolute Eos (auto) 0 (0-0.6) 10^3/ul Absolute Basos (auto) 0 (0-0.2) 10^3/ul Absolute Nucleated RBC 0 10^3/ul Nucleated RBC % 0.2 INR (Anticoag Therapy) 0.90 (0.77-1.02) APTT 33.2 (26.0-36.3) seconds Sodium 135 (135-145) mmol/L Potassium 3.5 (3.5-5.0) mmol/L Chloride 101 (101-111) mmol/L Carbon Dioxide 20 L (22-32) mmol/L Anion Gap 14 H (2-11) mmol/L BUN 19 (6-24) mg/dL Creatinine 0.82 (0.51-0.95) mg/dL Est GFR ( Amer) 85.2 (>60) Est GFR (Non-Af Amer) 70.4 (>60) BUN/Creatinine Ratio 23.2 H (8-20) Glucose 148 H (70-100) mg/dL Lactic Acid (0.5-2.0) mmol/L Calcium 9.4 (8.6-10.3) mg/dL Magnesium 1.7 L (1.9-2.7) mg/dL Total Bilirubin 0.90 (0.2-1.0) mg/dL AST 17 (13-39) U/L ALT 11 (7-52) U/L Alkaline Phosphatase 66 (34-104) U/L Troponin I 0.01 (<0.04) ng/mL B-Natriuretic Peptide ( - 100) pg/mL Total Protein 7.1 (6.4-8.9) g/dL Albumin 4.3 (3.2-5.2) g/dL Globulin 2.8 (2-4) g/dL Albumin/Globulin Ratio 1.5 (1-3) 18 04/13/18 Range/Units 04:43 04:43 WBC (3.5-10.8) 10^3/ul RBC (4.00-5.40) 10^6/ul Hgb (12.0-16.0) g/dl Hct (35-47) % MCV (80-97) fL MCH (27-31) pg MCHC (31-36) g/dl RDW (10.5-15) % Plt Count (150-450) 10^3/ul MPV (7.4-10.4) um3 Neut % (Auto) (38-83) % Lymph % (Auto) (25-47) % Story % (Auto) (0-7) % Eos % (Auto) (0-6) % Baso % (Auto) (0-2) % Absolute Neuts (auto) (1.5-7.7) 10^3/ul Absolute Lymphs (auto) (1.0-4.8) 10^3/ul Absolute Monos (auto) (0-0.8) 10^3/ul Absolute Eos (auto) (0-0.6) 10^3/ul Absolute Basos (auto) (0-0.2) 10^3/ul Absolute Nucleated RBC 10^3/ul Nucleated RBC % INR (Anticoag Therapy) (0.77-1.02) APTT (26.0-36.3) seconds Sodium (135-145) mmol/L Potassium (3.5-5.0) mmol/L Chloride (101-111) mmol/L Carbon Dioxide (22-32) mmol/L Anion Gap (2-11) mmol/L BUN (6-24) mg/dL Creatinine (0.51-0.95) mg/dL Est GFR ( Amer) (>60) Est GFR (Non-Af Amer) (>60) BUN/Creatinine Ratio (8-20) Glucose (70-100) mg/dL Lactic Acid 2.0 (0.5-2.0) mmol/L Calcium (8.6-10.3) mg/dL Magnesium (1.9-2.7) mg/dL Total Bilirubin (0.2-1.0) mg/dL AST (13-39) U/L ALT (7-52) U/L Alkaline Phosphatase (34-104) U/L Troponin I (<0.04) ng/mL B-Natriuretic Peptide 67 ( - 100) pg/mL Total Protein (6.4-8.9) g/dL Albumin (3.2-5.2) g/dL Globulin (2-4) g/dL Albumin/Globulin Ratio (1-3) Result Diagrams: 04/13/18 04:43 04/13/18 04:43 Lab Statement: Any lab studies that have been ordered have been reviewed, and results considered in the medical decision making process. - Radiology CXR Xray Interpretation: No Acute Changes - No acute findings; L-sided mastectomy, port in place. Radiology Interpretation Completed By: ED Physician - Additional Comments Diagnostic Additional Comments: 0425, EKG INTERPRETATION Normal sinus at 81bpm. Left anterior fascicular block. Inverted T waves in anterior leads. A little ST depression in inferior leads. Changed from previous EKG on 03/16/18, less deep inverted T waves. Re-Evaluation - Re-Evaluation 1 Re-Evaluation Time: 06:41 Change: Unchanged Comment: Discussing results with pt. 2 Re-Evaluation Time: 06:49 Change: Worse Comment: New c/o abd pain, will scan pt. Chest Pain Course/Dx - Course Course Of Treatment: A 63 y/o F with pert PMHx: VA, HTN, achalasia, presents to ED with acute midsternal CP onset this AM [employer]. Pain is rated as 10 out of 10, is non-radiating, and woke her from sleep. Associated sx: chills, productive cough, dry heaving, abd pain. Pt takes morphine and compazine. She last took her BP medicine yesterday. SO to Dr. Rosas at shift change pending troponin rule out and chest/abd CTA imaging results. - Diagnoses Provider Diagnoses: Chest pain - Provider Notifications Discussed Care Of Patient With: Eugenio Moore - hospitalist Time Discussed With Above Provider: 06:42 Instructed by Provider To: Other - Recommends getting three trops to r/o VA Discharge - Sign-Out/Discharge Documenting (check all that apply): Sign-Out Patient Signing out patient TO: Aravind Rosas - Pending imaging / trop - Discharge Plan Referrals: Trish Combs MD [Primary Care Provider] - The documentation as recorded by the Quiana vyas SooYoung accurately reflects the service I personally performed and the decisions made by me, Cyndie Mcintyre MD.
[2018-04-13] MEDS ORDERED: Ondansetron SYRINGE* 4 MG/2 ML SYRINGE (from 40mg/20ml vial) IV ONE (07:00)
--- NOTE | 2018-04-13 07:10 | RAD ---
INDICATION: Dysphasia COMPARISON: Chest x-ray March 16, 2018 TECHNIQUE: An AP portable view obtained at 0456 hours is submitted. FINDINGS: Bones/Soft Tissues: There are no acute bony findings. There is a left-sided [id number] catheter, unchanged. There is left mastectomy. Cardiomediastinal: The cardiomediastinal silhouette is normal. Lungs: There are no infiltrates. Pleura: There are no pleural effusions. Other: None IMPRESSION: NO ACTIVE DISEASE OR INTERVAL CHANGE.
--- NOTE | 2018-04-13 07:52 | RAD ---
INDICATION: Dysphasia. Emphysema. History of esophageal dilatation. History of Godwin fundoplication. Bilateral mastectomy. Hysterectomy. Appendectomy. PEG tube. COMPARISON: Chest x-ray April 13, 2018; CT abdomen and pelvis January 13, 2018; CT chest September 13, 2016 TECHNIQUE: Axial source images were obtained from the thoracic inlet to the symphysis pubis. There is a nonspecified contrast allergy and therefore no oral or intravenous contrast was administered. This limits the sensitivity of this examination. CHEST FINDINGS: Neck/thyroid: The visualized neck to include the thyroid appear normal. Chest wall: There are no acute abnormalities of the bony thorax or chest wall. There is left-sided [id number] catheter. There are bilateral mastectomies. There is a right breast implant. There is no supraclavicular, infraclavicular, or axillary lymphadenopathy. Lungs : There are no acute pulmonary parenchymal masses or infiltrates. There is mild bibasilar scarring aeration of the lung bases is improved. There are emphysematous changes. There are no endobronchial lesions. Cardiomediastinal structures: The heart is normal in size. There is a small pericardial effusion at the base the heart anteriorly, unchanged. There is no evidence of aortic aneurysm or dissection. There are atherosclerotic changes. There is annuloaortic ectasia. The aorta near the aortic root measures 4.3 cm. There is no mediastinal or hilar adenopathy. There are no acute abnormalities of the esophagus. There are postsurgical changes of the GE junction consistent with a history of Godwin fundoplication. Pleura : There are no pleural-based masses or effusions. ABDOMINAL/PELVIC FINDINGS: Liver: The noncontrast CT appearance the liver is unremarkable. Gallbladder: There are no calcified gallstones. There is no evidence of wall thickening or pericholecystic fluid. Spleen: The spleen is normal in size. No masses identified on the noncontrast images. There is a tiny granuloma. Pancreas: Evaluation of pancreas is very limited due to lack of oral and intravenous contrast. No definitive mass or ductal dilatation seen. Adrenal glands: There is no evidence of adrenal mass. Kidneys: Tiny, punctate, 1 mm, nonobstructive mid to lower pole right renal calculus. No mass on noncontrast evaluation. No hydronephrosis. Adenopathy: No gross adenopathy. Evaluation is limited. Fluid collections: No significant fluid collections. Vessels:There are atherosclerotic changes of the aorta. There is no focal aneurysm. The IVC is unremarkable GI tract: Limited evaluation without oral contrast. Moderate stool with colonic redundancy. This Godwin fundoplication. There is a gastrojejunostomy tube tube in the proximal jejunum. Pelvic organs: There is hysterectomy. There is no adnexal mass Bladder: There are no bladder masses. Abdominal and pelvic soft tissues: The extraperitoneal abdominal and pelvic soft tissues appear normal.. Osseous structures: There are no acute osseous findings. Old fractures right hemipelvis. Multilevel degenerative spurring. Mild, stable, superior endplate irregularities at L1. IMPRESSION: 1. Limited noncontrast imaging was performed. 2. Bilateral mastectomies. Right breast implant. 3. Emphysema. Annuloaortic ectasia. 4. 1 mm, nonobstructive right renal calculus. 5. Godwin fundoplication. Gastrojejunostomy tube. Moderate stool with colonic redundancy. 6. Old fractures right hemipelvis.
[2018-04-13] MEDS ORDERED: HYDROmorphone INJ* 1 MG/ML CARPUJECT SYRINGE IV ONE ×2 (09:21→11:38)
[2018-04-13] MEDS ORDERED: Metoprolol Succinate XL TAB* 50 MG PO ONE (09:22)
[2018-04-13] MEDS ORDERED: amLODIPine TAB* 5 MG PO ONE (09:22)
[2018-04-13] MEDS ORDERED: Losartan TAB* 25 MG PO ONE (09:22)
[2018-04-13] MEDS ORDERED: HYDROmorphone INJ* 2 MG/ML CARPUJECT SYRINGE ONE ×2 (09:29→11:40)
[2018-04-13] MEDS: HYDROmorphone INJ* 2 MG/ML CARPUJECT SYRINGE IV SLOW PU ONE ×2 (09:32→11:42)
[2018-04-13] MEDS ORDERED: Ondansetron ODT TAB* 4 MG PO ONE (09:50)
[2018-04-13] MEDS ORDERED: Lidocaine 2% VISCOUS* 15 ML UDC PO STA (12:45)
[2018-04-13] MEDS ORDERED: Al Hydrox/Mg Hydrox/Simet LIQ* 30 ML UDC PO STA (12:45)
[2018-04-13] MEDS ORDERED: Nitroglycerin TAB 0.4 MG* 0.4 MG TAB SL STA (12:46)
[2018-04-13] MEDS ORDERED: Nitroglycerin 0.6 MG/HR PATCH* (15 MG) TRANSDERM STA (12:46)
[2018-04-13] MEDS ORDERED: Sucralfate TAB* 1 GM PO STA (12:46)
[2018-04-13] MEDS ORDERED: Magnesium Sulf 4 GM/100 ML IV* 4,000 MG/100 ML BAG IVPB ONE (12:50)
[2018-04-13] MEDS ORDERED: Morphine INJ* 10 MG/ML 1 ML CARPUJECT IV STA (12:51)
[2018-04-13] MEDS ORDERED: diPHENhydraMINE PO* 50 MG PO PRN (14:28)
[2018-04-13] MEDS ORDERED: Nitroglycerin TAB 0.4 MG* 0.4 MG TAB SL PRN (14:28)
[2018-04-13] MEDS ORDERED: Albuterol HFA INHALER* 8 gm MDI INH PRN (14:28)
--- NOTE | 2018-04-13 14:52 | ED ---
Ashia Chatterjee Julia, afshinibed for Aravind Rosas MD on 04/13/18 at 0658 . Progress - Progress Note Progress Note: This patient is signed out from Dr. Mcintyre, awaiting Troponin results and A/P CT. This patient is a 63 year old female with mid chest and upper abdominal pain that started yesterday, worsening around 03:00 today. The pain reminds her of achalasia. She had a stress test several years ago. Pain is unchanged by nitroglycerin. Physical Exam: General: well-appearing, no pain distress Skin: warm, color reflects adequate perfusion, dry Head: normal Eyes: EOMI, SHAY ENT: normal Neck: supple, nontender Respiratory: CTA, breath sounds present Cardiovascular: RRR Abdomen: soft, mild tenderness to epigastrium, feeding tube Bowel: present Musculoskeletal: normal, strength/ROM intact Neurological: sensory/motor intact, A&O x3 Psychological: affect/mood appropriate A/P CT as per radiologist: 1. Limited noncontrast imaging was performed. 2. Bilateral mastectomies. Right breast implant. 3. Emphysema. Annuloaortic ectasia. 4. 1 mm, nonobstructive right renal calculus. 5. Godwin fundoplication. Gastrojejunostomy tube. Moderate stool with colonic redundancy. 6. Old fractures right hemipelvis. Re-Evaluation - Re-Evaluation 1 Re-Evaluation Time: 07:45 Comment: mild tenderness to epigastrium, feeding tube 2 Re-Evaluation Time: 09:22 Comment: discussed pt's medications due to elevated BP 3 Re-Evaluation Time: 11:38 Change: Unchanged - Patients symptoms persist without improvement. Course/Dx - Course Course Of Treatment: PAIN CONTINUES IN ED. ADMIT HOSPITALIST. - Diagnoses Provider Diagnoses: Chest pain, Achalasia - Provider Notifications Discussed Care Of Patient With: Eugenio Moore - hospitalist Time Discussed With Above Provider: 12:35 Instructed by Provider To: Admit As Inpatient Discharge - Sign-Out/Discharge Documenting (check all that apply): Discharge/Admit/Transfer - ADMIT - Discharge Plan Condition: Stable Disposition: ADMITTED TO [facility] Referrals: Trish Combs MD [Primary Care Provider] - - Billing Disposition and Condition Condition: STABLE Disposition: Admitted to [facility] The documentation as recorded by the Ashia vyasKamille accurately reflects the service I personally performed and the decisions made by me, Aravind Rosas MD.
[2018-04-13] MEDS ORDERED: Cyanocobalamin INJ * 1,000 MCG/ML VIAL 1 ML VIAL IM SCH (15:00)
[2018-04-13] MEDS: HYDROmorphone INJ* 2 MG/ML CARPUJECT SYRINGE IV SLOW PU PRN ×2 (16:20→20:55)
[2018-04-13] MEDS: Ondansetron 40 MG VIAL* 2 MG/ML 20 ML VIAL IV PRN ×2 (16:40→21:07)
[2018-04-13] MEDS: Carisoprodol TAB* 350 MG PO SCH ×2 (16:50→20:57)
[2018-04-13] MEDS ORDERED: hydrALAZINE IV* 20 MG/ML VIAL IV SLOW PU ONE (17:00)
[2018-04-13] MEDS: NS 0.9% 1000 ML* 1,000 ML IV SCH (18:13)
[2018-04-13] MEDS: Sucralfate TAB* 1 GM PO SCH (20:57)
[2018-04-13] MEDS: NIFEdipine CAP* 10 MG PO SCH (20:57)
[2018-04-13] MEDS: Fluticasone NASAL SPRAY 50MCG* 16 gm SPRAY BTL BOTH NARES SCH (20:59)
[2018-04-13] MEDS: Heparin VIAL(*) 5000 UNITS/ML VIAL (FIVE THOUSAND) SUBCUT SCH (20:59)
--- NOTE | 2018-04-13 22:57 | HP ---
CC: Dr. Trish Combs * HISTORY AND PHYSICAL: DATE OF ADMISSION: 04/13/18 TIME OF MY EVALUATION: 4 p.m. PRIMARY CARE PROVIDER: Dr. Trish Combs, [facility]. CHIEF COMPLAINT: Chest pain/abdominal pain. HISTORY OF PRESENT ILLNESS: Ms. Prasad is a 63-year-old woman with a past medical history of coronary disease and TX as well as hypertension and achalasia and multiple abdominal surgeries that would be detailed below, who presents to the emergency room with acute midsternal chest pain earlier this morning. The patient rated the pain as 10/10, it was nonradiating, it awoke her from her sleep, it was associated with chills, productive cough, dry heaving and abdominal pain. The patient takes morphine and Compazine in the outpatient setting. She came to the emergency room and worked up initially for coronary disease with serial troponins that were negative x3 values. She had EKGs that were not worrisome from an acute coronary syndrome perspective. The patient had multiple rounds of IV pain meds, GI cocktails, muscle relaxants, efforts to hydrate and other maneuvers, but her pain in her lower chest and abdomen was unrelieved. The patient stated that her chest pain was very similar to previous achalasia pain. The patient was initially vomiting in the emergency room and this stopped with IV Zofran and other antiemetics. The patient was able to tolerate sips and was feeling somewhat better. She was taking doses of IV Dilaudid after morphine was originally ineffective. She was feeling only partial relief and finally requested after almost 12 hours in the emergency room to be admitted and she was obliged. The patient is being admitted for symptom control. She will be seen in consultation by Dr. Lj Galindo of the GI consult service. The patient is stable at this time. PAST MEDICAL HISTORY: As above, the patient has a history of coronary disease and TX. The patient had 2 stenting; in the RCA, she received the stent in 2006 and in her LAD, she had a stent in 2007. She has a history of deep venous thrombosis and hypercholesterolemia. She has hypertension. She has a history of syncope. She denies a history of congestive heart failure or pacemaker or valvular disease. She does suffer from COPD, pneumonia and pulmonary embolism. She had her first DVT almost 30 years ago and also suffers from seasonal allergies. She has a history of diverticulosis and GERD and hiatal hernia and has had 3 surgeries including a Godwin fundoplication. She has known achalasia, Barrette' s esophagus and has a JG tube. The patient has had cataract surgery, has lower back injuries at L1, history of TIA approximately 3 years ago and also history of anxiety, but denies panic disorder. She has had a history of right breast cancer and bilateral mastectomies in 2009. She had a left knee surgery multiple times, bilateral shoulder surgery, esophageal surgery in 1996, failed breast implants on her left, a partial hysterectomy in 1976, appendectomy as a child, chest tube in 1996, esophageal dilations, had a left total knee replacement in 2015, kidney stone surgery/lithotripsy. She has an insertion of an infusaport in February 2018 secondary to her breast cancer history I believe. MEDICATIONS: Her outpatient medications: 1. Acetaminophen 650 mg q.6 hours p.r.n. pain/fever. 2. Morphine sulfate extended-release 30 mg by mouth 3 times daily. 3. Zofran 4 mg by mouth every 8 hours p.r.n. nausea. 4. Epinephrine EpiPen 0.3 mg IM once p.r.n., allergic reaction with anaphylaxis. 5. Ketotifen fumarate eyedrops 1 drop both eyes twice daily. 6. Lactose-reduced food, Jevity 1.5 millicent liquid, half a can via the J-tube every evening. 7. Albuterol inhaler 2 puffs inhaled q.4 hours p.r.n. 8. Amlodipine 10 mg by mouth in the morning. 9. Soma 350 mg 4 times a day. 10. Plavix 75 mg by mouth in the morning. 11. Vitamin B12 of 1000 mcg intramuscularly monthly. 12. Diphenhydramine 50 mg by mouth every 6 hours p.r.n. itching or allergic reaction. 13. Fluticasone nasal spray 2 sprays both nares twice daily. 14. Losartan 50 mg by mouth in the morning. 15. Melatonin 3 mg by mouth at bedtime. 16. Metoprolol-XL 50 mg by mouth in the morning. 17. Nifedipine 10 mg by mouth 3 times daily. 18. Sublingual nitroglycerin 0.4 mg sublingual q.5 minutes p.r.n. 19. Prilosec 40 mg by mouth daily. 20. Compazine 10 mg by mouth twice daily. 21. Zocor 40 mg by mouth in the morning. ALLERGIES: Include IV CONTRAST oral and IV DYE, BEE VENOM PROTEIN, ALBUMIN both COLLOID and HUMAN, PENICILLINS, SHELLFISH DERIVATIVES, ADHESIVE TAPE, CHLORHEXIDINE, LATEX, NSAIDS, and BOTOX DERIVATIVES. FAMILY HISTORY: Positive for cardiac disease in father and 2 brothers. Mother has AFib, hypertension and diabetes. SOCIAL HISTORY: Includes smoking for 40 years, down to a few cigarettes per day , still she has 40 plus pack years. She drinks alcohol only occasionally. No substance abuse reported. She lives alone. She is disabled. She is not . REVIEW OF SYSTEMS: Review of systems is only positive for chills, chest pain and cough as well as abdominal pain and dry heaving. PHYSICAL EXAMINATION On admission: GENERAL: She is an elderly-appearing woman, appears older than stated age, in no apparent distress at the time I saw her, though she had received multiple symptom control agents by that time. VITAL SIGNS: Temperature 98 degrees Fahrenheit, blood pressure initially very elevated at 200/126 with vomiting. This fell with symptom control with values down into the 150s/80s. She is still trending very high with respect to her blood pressure. Her pulse rate is 70s and regular, oxygen saturation 98% on room air, respirations 18 to 20 and regular. HEENT: Oropharynx is clear. Mucous membranes are moist. She is being hydrated via IV fluids as I interview her. NECK: Supple. No elevated JVD. She is quite thin. LUNGS: Breath sounds are clear anteriorly and posteriorly. HEART: Normal S1, normal S2. No murmurs appreciated. ABDOMEN: Diffusely tender, but not exquisitely so. EXTREMITIES: Without clubbing, cyanosis or edema. She is ambulating independently in the hallways. She seems to have no focal neurologic or psychiatric problems that are acute. Moves all extremities equally. SKIN: Dry and intact. She has got a gastrostomy tube wrapped without any fluctuance surrounding the entry site. She has a port. LYMPH: No adenopathy appreciated. ADMISSION DATA: White blood cell count 10.8, hemoglobin 14.7, platelets 323, INR is 0.9. Blood chemistry is significant for somewhat depressed bicarb at 20 and an anion gap modestly elevated at 14, creatinine 0.82, BUN to creatinine ratio elevated at 23.2. Sodium 135, potassium 3.5, chloride 101, BUN 19, creatinine 0.82, lactic acid normal at 2, calcium 9.4, magnesium borderline low at 1.7. LFTs normal. Troponin 0.01 x3, separate time points across 6 hours. BNP normal at 67. Total protein and albumin normal. Lipase also normal. CT abdomen and pelvis done in the emergency room significant for bilateral mastectomies and right breast implant so as emphysema and annuloaortic ectasia. She has a 1 mm nonobstructive right renal calculus as well as post Godwin fundoplication with a gastrojejunostomy tube in situ with moderate stool and colonic redundancy as well as old fractures in right hemipelvis. IMPRESSION: Ms. Prasad is a 63-year-old woman who has an array of medical problems including known achalasia, status post multiple upper gastrointestinal surgeries with gastrojejunostomy tube in situ, now presents with recurrent abdominal pain consistent with former episodes of achalasia following a formal rule out in the emergency room with difficult to control symptomatology. The patient is aggressively being rehydrated and trying to get her symptomatology under control. She is going to be seen by GI in consultation. She is tolerating clear liquids at this time. She has antiemetics ordered and has been taking them. I tried antispasm treatments with her outpatient Soma as well as sublingual nitroglycerin. I am going to place a patch for the muscle relaxing effects of the nitroglycerin. She is receiving IV opioids and I am hoping that there is some symptom control where an explanation of what is exactly happening. The patient is going to continue an array of her outpatient medications. Further clinical decisions will be based on her clinical progress overnight. The patient is a full code. TIME SPENT: Total time taken to admit Ms. Prasad was 75 minutes, greater than half that time spent at the bedside going over the history and physical examination. [id number]/[facility] #: [id number] INDIO
[2018-04-14] MEDS: HYDROmorphone INJ* 2 MG/ML CARPUJECT SYRINGE IV SLOW PU PRN ×5 (01:40→20:12)
[2018-04-14] MEDS: Ondansetron 40 MG VIAL* 2 MG/ML 20 ML VIAL IV PRN ×5 (01:42→21:34)
[2018-04-14] MEDS: NS 0.9% 1000 ML* 1,000 ML IV SCH ×2 (01:42→11:53)
[2018-04-14] MEDS: Prochlorperazine TAB* 10 MG PO PRN (04:44)
[2018-04-14] MEDS: Heparin VIAL(*) 5000 UNITS/ML VIAL (FIVE THOUSAND) SUBCUT SCH ×3 (06:33→20:22)
[2018-04-14 06:37] LABS: ABS Basophils 0 10^3/ul (0-0.2); ABS Eosinophils 0 10^3/ul (0-0.6); ABS Lymphocytes 1.2 10^3/ul (1.0-4.8); ABS Monocytes 0.5 10^3/ul (0-0.8); ABS Nucleated RBC 0 10^3/ul; Eosinophil % 0 % (0-6); Hematocrit 38 % (35-47); Hemoglobin 13.3 g/dl (12.0-16.0); Mean Corpuscular HGB Conc 35 g/dl (31-36); Mean Corpuscular Hemoglobin 30 pg (27-31); Mean Corpuscular Volume 86 fL (80-97); Mean Platelet Volume 7.6 um3 (7.4-10.4); Nucleated Red Blood Cells % 0.1; Platelet Count 295 10^3/ul (150-450); Red Blood Count 4.43 10^6/ul (4.00-5.40); Red Cell Distribution Width 14 % (10.5-15); White Blood Count 9.6 10^3/ul (3.5-10.8)
[2018-04-14 06:50] LABS: EGFR Non-African American 111.6 (>60)
--- NOTE | 2018-04-14 07:31 | PN ---
Progress Note - Progress Note Date of Service: 04/14/18 Note: cross cover: Ativan 0.5mg added for nausea control. Reportedly non stop since yesterday which exacerbates her pain.
[2018-04-14] MEDS: Fluticasone NASAL SPRAY 50MCG* 16 gm SPRAY BTL BOTH NARES SCH ×2 (08:02→20:22)
[2018-04-14] MEDS: Carisoprodol TAB* 350 MG PO SCH ×4 (08:03→20:23)
[2018-04-14] MEDS: NIFEdipine CAP* 10 MG PO SCH ×3 (08:04→20:23)
[2018-04-14] MEDS: Sucralfate TAB* 1 GM PO SCH ×2 (08:05→20:23)
[2018-04-14] MEDS: amLODIPine TAB* 5 MG PO SCH (08:05)
[2018-04-14] MEDS: Clopidogrel TAB* 75 MG PO SCH (08:06)
[2018-04-14] MEDS: Pantoprazole TAB (NF) 40 MG TAB PO SCH (08:06)
[2018-04-14] MEDS: Atorvastatin* 20 MG TAB PO SCH (08:06)
[2018-04-14] MEDS: KCL 20 MEQ/100 ML IVPREMIX* 20 MEQ/100 ML BAG IV SCH ×2 (08:09→10:16)
[2018-04-14] MEDS ORDERED: hydrALAZINE IV* 20 MG/ML VIAL IV SLOW PU ONE (08:26)
[2018-04-14] MEDS ORDERED: Losartan TAB* 25 MG PO SCH (09:00)
[2018-04-14] MEDS ORDERED: Metoprolol Succinate XL TAB* 50 MG PO SCH (09:00)
[2018-04-14] MEDS: Losartan TAB* 25 MG PO SCH (10:12)
[2018-04-14] MEDS: Metoprolol Succinate XL TAB* 50 MG PO SCH (10:13)
[2018-04-14] MEDS: LORazepam INJ* 2 MG/ML 1 ML VIAL IV PUSH PRN ×3 (10:14→22:49)
[2018-04-14] MEDS ORDERED: NS 0.9% 1000 ML* 1,000 ML IV ONE (15:45)
[2018-04-14] MEDS ORDERED: ENTERAL NUTRITION FORMULA J TUBE SCH (18:00)
[2018-04-14] MEDS ORDERED: [UNRECOGNIZED DRUG - OTHER] J TUBE SCH (18:00)
[2018-04-14] MEDS ORDERED: Alteplase (CATHFLO)* 2 MG VIAL IV ONE (20:47)
[2018-04-15] MEDS: HYDROmorphone INJ* 2 MG/ML CARPUJECT SYRINGE IV SLOW PU PRN ×6 (00:14→21:55)
[2018-04-15] MEDS: NS 0.9% 1000 ML* 1,000 ML IV SCH ×3 (00:58→23:29)
[2018-04-15] MEDS: Ondansetron 40 MG VIAL* 2 MG/ML 20 ML VIAL IV PRN ×5 (04:18→21:55)
[2018-04-15] MEDS: LORazepam INJ* 2 MG/ML 1 ML VIAL IV PUSH PRN ×3 (04:18→20:10)
[2018-04-15] MEDS: Heparin VIAL(*) 5000 UNITS/ML VIAL (FIVE THOUSAND) SUBCUT SCH ×3 (04:22→20:13)
[2018-04-15] MEDS: Fluticasone NASAL SPRAY 50MCG* 16 gm SPRAY BTL BOTH NARES SCH ×2 (08:35→20:11)
[2018-04-15] MEDS: Losartan TAB* 25 MG PO SCH (08:36)
[2018-04-15] MEDS: Atorvastatin* 20 MG TAB PO SCH (08:36)
[2018-04-15] MEDS: Metoprolol Succinate XL TAB* 50 MG PO SCH (08:37)
[2018-04-15] MEDS: Pantoprazole TAB (NF) 40 MG TAB PO SCH (08:38)
[2018-04-15] MEDS: Carisoprodol TAB* 350 MG PO SCH ×4 (08:38→20:12)
[2018-04-15] MEDS: NIFEdipine CAP* 10 MG PO SCH ×3 (08:38→20:12)
[2018-04-15] MEDS: amLODIPine TAB* 5 MG PO SCH (08:39)
[2018-04-15] MEDS: Clopidogrel TAB* 75 MG PO SCH (08:39)
[2018-04-15] MEDS: Sucralfate TAB* 1 GM PO SCH ×2 (08:39→20:12)
--- NOTE | 2018-04-15 09:34 | CONS ---
CC: Dr. Combs * CONSULTATION REPORT: DATE OF CONSULT: 04/14/18 REQUESTING PHYSICIAN: Dr. Galindo. INDICATION: Achalasia. NARRATIVE: Mrs. Prasad is a 63-year-old female with a fairly significant GI past medical history. She has a history of achalasia and gastroparesis. She has had numerous cardiothoracic/esophageal surgeries for her achalasia. She is seeing a cardiothoracic surgeon at [facility] in [place]. The last time she saw him was approximately 2 years ago. She appears to have end- stage achalasia and at that time he pretty much told her the only option left for her was a total esophagectomy. She obviously was not very enthusiastic about this and wanted to hold off as long as she could. She does have a jejunostomy tube that she receives pretty much all of her feedings through. She has a long history of sternal/esophageal pain. The patient states that she had been doing well up until Saturday when she developed her typical pain. She presented to the emergency room on Saturday morning with severe chest pain. She states that it is very similar to her typical achalasia pain, however, at this time, it lasted longer than normal. She did have three troponins and was seen by the hospitalist service. They ruled out a cardiac etiology. She was admitted for intractable pain and no other changes. She also states that she has had no new medication. She denies any nonsteroidals. She is unable to vomit but she does have nausea. She does have dry heaves. No bowel habit changes. No blood in the stool, unintentional weight loss. PAST MEDICAL HISTORY: She does have a history of coronary artery disease. She has cardiac stents. She has hypercholesterolemia, DVTs, hypertension, COPD, GERD, breast cancer, TIA. PAST SURGICAL HISTORY: Include shoulder surgery, knee surgery, multiple esophageal surgeries including fundoplications and myotomies, appendectomy. MEDICATIONS UPON ADMISSION: Include: 1. Zocor. 2. Compazine. 3. Prilosec. 4. Nifedipine. 5. Metoprolol. 6. Losartan. 7. Plavix. 8. Amlodipine. 9. Zofran. 10. Morphine. 11. Acetaminophen. ALLERGIES: IV CONTRAST and IV DYE, ALBUMIN, PENICILLINS, NSAIDS, and BOTOX. FAMILY HISTORY: Cardiac disease, A-fib, hypertension, diabetes. SOCIAL HISTORY: She continues to smoke, I counseled her against this. No alcohol. No IV drugs. REVIEW OF SYSTEMS: A 12 systems were reviewed, other than mentioned in the HPI were unremarkable. PHYSICAL EXAM: Temperature is 98.7, blood pressure is 100/54, O2 sat is 93%, respiratory rate is 16, pulse is 73. General: Chronically ill-appearing female , in no apparent distress. Alert, oriented, pleasant, fluent. HEENT: Mucous membranes are moist without lesions, ulcers, or exudate. Neck is supple. Trachea is midline. Head is normocephalic, atraumatic. Heart: Regular rate and rhythm. Lungs: Clear but diffuse breath sounds, poor inspiratory efforts. Abdomen: Positive bowel sounds, soft, nontender, nondistended. No hepatosplenomegaly, masses, rebound, or guarding. Skin is warm and dry. DIAGNOSTIC STUDIES/LAB DATA: Labs of note, white count is 9.6, hemoglobin is 13.3, platelets of 295. INR is 0.9. Sodium is 132. Her potassium is 2.9, glucose is 122. LFTs are unremarkable. She does have a CT chest, abdomen and pelvis when she presented to the emergency room yesterday morning at 6:30 in the morning, which from a GI standpoint reveals a Godwin fundoplication, a gastrojejunostomy tube, and moderate stool with colonic redundancy. ASSESSMENT AND PLAN: This is a very pleasant 63-year-old female who pretty much has end-stage achalasia. She is being evaluated for her chest pain. According to the hospitalist service, cardiac etiologies have been ruled out. This does leave either her achalasia or some other GI etiology. Other GI etiologies could be erosive esophagitis, peptic ulcer disease, pancreatitis. Her lipase was within normal limits. She does not really have significant acid reflux. She is status post Godwin. She denies any nonsteroidals. I do wonder if her chest pain is related to her achalasia. At this point, I would recommend we continue with her current treatment. I think if she does not improve by tomorrow, she likely may benefit from an upper endoscopy to evaluate for any stasis of food in her esophagus that could be contributing to the pain and discomfort. Unfortunately, I am not quite sure what else to do for her achalasia if that is the case. We will continue to follow along and if she still symptomatic tomorrow, I think an EGD would be warranted. [id number]/[facility] #: [id number] [place]
[2018-04-15] MEDS ORDERED: Alteplase (CATHFLO)* 2 MG/2 ML VIAL IV ONE (13:36)
--- NOTE | 2018-04-15 15:34 | PN ---
Subjective Date of Service: 04/15/18 Interval History: Patient reports she is feeling better today only dry heaving early this morning and has not had further dry heaving since. Her nausea feels "stable". No abdominal pain. No fevers or chills. Reports poor appetite. Objective Active Medications: Albuterol (Ventolin Hfa Inhaler*) 2 puff INH Q4HR PRN PRN Reason: WHEEZING Amlodipine Besylate (Norvasc Tab*) [facility] [place] Last Admin: 04/15/18 08:39 Dose: 10 mg Atorvastatin Calcium (Lipitor*) 20 mg PO QAM [facility] Last Admin: 04/15/18 08:36 Dose: 20 mg Carisoprodol (Soma Tab*) 350 mg PO QID [facility] Last Admin: 04/15/18 13:34 Dose: 350 mg Clopidogrel Bisulfate (Plavix Tab*) 75 mg PO [facility] Last Admin: 04/15/18 08:39 Dose: 75 mg Diphenhydramine HCl (Benadryl Po*) 50 mg PO Q6HR PRN PRN Reason: ITCHING Fluticasone Propionate (Flonase Nasal [place] 50mcg*) 2 spray BOTH NARES BID [facility] Last Admin: 04/15/18 08:35 Dose: 2 spray Heparin Sodium (Porcine) (Heparin Vial(*)) 5,000 units SUBCUT Q8HR [facility] Last Admin: 04/15/18 13:35 Dose: 5,000 units Hydromorphone HCl (Dilaudid Inj*) 1 mg IV SLOW PU Q4H PRN PRN Reason: PAIN Last Admin: 04/15/18 13:35 Dose: 1 mg Sodium Chloride (Ns 0.9% 1000 Ml*) 1,000 mls @ 125 mls/hr IV PER RATE [facility] Last Admin: 04/15/18 09:14 Dose: 125 mls/hr Lorazepam (Ativan Inj*) 0.5 mg IV PUSH Q6H PRN PRN Reason: nausea Last Admin: 04/15/18 11:33 Dose: 0.5 mg Losartan Potassium (Cozaar Tab*) 100 mg PO [facility] Last Admin: 04/15/18 08:36 Dose: 100 mg Melatonin (Melatonin) 3 mg PO BEDTIME PRN; Protocol PRN Reason: Sleep Metoprolol Succinate (Toprol Xl Tab*) 100 mg PO [facility] Last Admin: 04/15/18 08:37 Dose: 100 mg Nifedipine (Procardia Cap*) 10 mg PO TID [facility] Last Admin: 04/15/18 13:34 Dose: 10 mg Nitroglycerin (Nitroglycerin Tab 0.4 Mg*) 0.4 mg SL Q5M PRN PRN Reason: chest pain Ondansetron HCl (Zofran 40 Mg Vial*) 4 mg IV Q4H PRN PRN Reason: NAUSEA/VOMITING Last Admin: 04/15/18 13:35 Dose: 4 mg Pantoprazole Sodium (Protonix Tab (Nf)) 40 mg PO DAILY [facility] Last Admin: 04/15/18 08:38 Dose: 40 mg Prochlorperazine (Compazine Tab*) 10 mg PO BID PRN PRN Reason: NAUSEA/VOMITING Last Admin: 04/14/18 04:44 Dose: 10 mg Sucralfate (Carafate*) 1 gm PO BID [facility] Last Admin: 04/15/18 08:39 Dose: 1 gm Vital Signs - 8 hr 04/15/18 04/15/18 04/15/18 08:00 08:38 08:40 Temperature Pulse Rate Respiratory 18 18 18 Rate Blood Pressure (mmHg) O2 Sat by Pulse Oximetry 04/15/18 04/15/18 04/15/18 10:00 10:40 11:21 Temperature 98.5 F Pulse Rate 63 Respiratory 18 18 16 Rate Blood Pressure 120/72 (mmHg) O2 Sat by Pulse 96 Oximetry 04/15/18 04/15/18 04/15/18 11:33 12:35 13:34 Temperature Pulse Rate Respiratory 18 16 18 Rate Blood Pressure (mmHg) O2 Sat by Pulse Oximetry 04/15/18 04/15/18 13:35 15:03 Temperature Pulse Rate Respiratory 18 16 Rate Blood Pressure (mmHg) O2 Sat by Pulse Oximetry Oxygen Devices in Use Now: None Appearance: chronically ill female laying in bed in NAD, Alert + Oriented x 3 Eyes: No Scleral Icterus, PERRLA Ears/Nose/Mouth/Throat: Mucous Membranes Moist Neck: NL Appearance and Movements; NL JVP Respiratory: Symmetrical Chest Expansion and Respiratory Effort, Clear to Auscultation Cardiovascular: NL Sounds; No Murmurs; No JVD, RRR, No Edema Abdominal: NL Sounds; No Tenderness; No Distention, - - G tube intact. no signs of infection. Extremities: No Edema, No Clubbing, Cyanosis Skin: No Rash or Ulcers, No Nodules or Sclerosis Neurological: Alert and Oriented x 3, NL Sensation, NL Muscle Strength and Tone Lines/Tubes/Other Access: Clean, Dry and Intact Other Access - port in upper left chest wall - intact, no signs of infection Nutrition: Taking PO's Result Diagrams: 04/14/18 06:00 04/14/18 06:00 Additional Lab and Data: Lab Results 04/13/18 04/13/18 04/13/18 Range/Units 04:43 04:43 04:43 WBC 10.8 (3.5-10.8) 10^3/ul RBC 4.82 (4.00-5.40) 10^6/ul Hgb 14.7 (12.0-16.0) g/dl Hct 42 (35-47) % MCV 86 (80-97) fL MCH 30 (27-31) pg MCHC 35 (31-36) g/dl RDW 14 (10.5-15) % Plt Count 323 (150-450) 10^3/ul MPV 7.7 (7.4-10.4) um3 Neut % (Auto) 84.9 H (38-83) % Lymph % (Auto) 9.8 L (25-47) % [place] % (Auto) 5.0 (0-7) % Eos % (Auto) 0.1 (0-6) % Baso % (Auto) 0.2 (0-2) % Absolute Neuts (auto) 9.2 H (1.5-7.7) 10^3/ul Absolute Lymphs (auto) 1.1 (1.0-4.8) 10^3/ul Absolute Monos (auto) 0.5 (0-0.8) 10^3/ul Absolute Eos (auto) 0 (0-0.6) 10^3/ul Absolute Basos (auto) 0 (0-0.2) 10^3/ul Absolute Nucleated RBC 0 10^3/ul Nucleated RBC % 0.2 INR (Anticoag Therapy) 0.90 (0.77-1.02) APTT 33.2 (26.0-36.3) seconds Sodium 135 (135-145) mmol/L Potassium 3.5 (3.5-5.0) mmol/L Chloride 101 (101-111) mmol/L Carbon Dioxide 20 L (22-32) mmol/L Anion Gap 14 H (2-11) mmol/L BUN 19 (6-24) mg/dL Creatinine 0.82 (0.51-0.95) mg/dL Est GFR ( Amer) 85.2 (>60) Est GFR (Non-Af Amer) 70.4 (>60) BUN/Creatinine Ratio 23.2 H (8-20) Glucose 148 H (70-100) mg/dL Lactic Acid (0.5-2.0) mmol/L Calcium 9.4 (8.6-10.3) mg/dL Magnesium 1.7 L (1.9-2.7) mg/dL Total Bilirubin 0.90 (0.2-1.0) mg/dL AST 17 (13-39) U/L ALT 11 (7-52) U/L Alkaline Phosphatase 66 (34-104) U/L Troponin I 0.01 (<0.04) ng/mL B-Natriuretic Peptide ( - 100) pg/mL Total Protein 7.1 (6.4-8.9) g/dL Albumin 4.3 (3.2-5.2) g/dL Globulin 2.8 (2-4) g/dL Albumin/Globulin Ratio 1.5 (1-3) 04/13/18 04/13/18 Range/Units 04:43 04:43 WBC (3.5-10.8) 10^3/ul RBC (4.00-5.40) 10^6/ul Hgb (12.0-16.0) g/dl Hct (35-47) % MCV (80-97) fL MCH (27-31) pg MCHC (31-36) g/dl RDW (10.5-15) % Plt Count (150-450) 10^3/ul MPV (7.4-10.4) um3 Neut % (Auto) (38-83) % Lymph % (Auto) (25-47) % [place] % (Auto) (0-7) % Eos % (Auto) (0-6) % Baso % (Auto) (0-2) % Absolute Neuts (auto) (1.5-7.7) 10^3/ul Absolute Lymphs (auto) (1.0-4.8) 10^3/ul Absolute Monos (auto) (0-0.8) 10^3/ul Absolute Eos (auto) (0-0.6) 10^3/ul Absolute Basos (auto) (0-0.2) 10^3/ul Absolute Nucleated RBC 10^3/ul Nucleated RBC % INR (Anticoag Therapy) (0.77-1.02) APTT (26.0-36.3) seconds Sodium (135-145) mmol/L Potassium (3.5-5.0) mmol/L Chloride (101-111) mmol/L Carbon Dioxide (22-32) mmol/L Anion Gap (2-11) mmol/L BUN (6-24) mg/dL Creatinine (0.51-0.95) mg/dL Est GFR ( Amer) (>60) Est GFR (Non-Af Amer) (>60) BUN/Creatinine Ratio (8-20) Glucose (70-100) mg/dL Lactic Acid 2.0 (0.5-2.0) mmol/L Calcium (8.6-10.3) mg/dL Magnesium (1.9-2.7) mg/dL Total Bilirubin (0.2-1.0) mg/dL AST (13-39) U/L ALT (7-52) U/L Alkaline Phosphatase (34-104) U/L Troponin I (<0.04) ng/mL B-Natriuretic Peptide 67 ( - 100) pg/mL Total Protein (6.4-8.9) g/dL Albumin (3.2-5.2) g/dL Globulin (2-4) g/dL Albumin/Globulin Ratio (1-3) Assess/Plan/Problems-Billing Assessment: Ms. ferrer is a 63 yo female with complaex PMH inclduing achalasia, Barrettes esophagus, multiple espohageal dilations, J-tube placement, multiple abdominal surgeries, s/p Godwin funcoplication, CAD with hx of [place] s/p stenting, infusaport insertion February 2018 (please see H&P for full PMH which is quite extensive) who presented on 04/13 with c/o chest/abdominal pain and intractable vomiting. Cardiac work-up negative. - Patient Problems (1) Abdominal pain Comment: - abdominal/chest pain. Cardiac etiology riuled out. Today she is improving. - Appreciate GI consult - end-stage achalasia. Possibly achalasia vs other GI etiology. Wanted to wait & watch symptoms, continue supportive treatment, and if not improving possibly upper endoscopy. - CT abdomen/chest/Pelvis showing no acute processes - continue supportive treatment (2) Achalasia Comment: - Has G tube as is not able to tolerate adequate oral intake. - Tube exchanged in [place] recently, working appropriately. (3) Electrolyte abnormality Comment: -recheck lytes today (4) CAD (coronary artery disease) Comment: - troponins negative - Continue clopidogrel, metoprolol, statin. (5) HTN (hypertension) Comment: - controlled SBP 120-130s - continue procardia, norvasc (6) DVT prophylaxis Comment: - Heparin SQ. (7) Full code status Comment: Status and Disposition: inpatient. most likely home when medically stable.
[2018-04-15 17:15] LABS: ABS Basophils 0.1 10^3/ul (0-0.2); ABS Eosinophils 0 10^3/ul (0-0.6); ABS Lymphocytes 2.8 10^3/ul (1.0-4.8); ABS Monocytes 0.6 10^3/ul (0-0.8); ABS Neutrophils 3.8 10^3/ul (1.5-7.7); ABS Nucleated RBC 0 10^3/ul; Eosinophil % 0.5 % (0-6); Hematocrit 36 % (35-47); Hemoglobin 12.5 g/dl (12.0-16.0); Lymphocyte % 38.4 % (25-47); Mean Corpuscular HGB Conc 35 g/dl (31-36); Mean Corpuscular Hemoglobin 30 pg (27-31); Mean Corpuscular Volume 86 fL (80-97); Mean Platelet Volume 7.6 um3 (7.4-10.4); Nucleated Red Blood Cells % 0; Platelet Count 266 10^3/ul (150-450); Red Cell Distribution Width 13 % (10.5-15); White Blood Count 7.4 10^3/ul (3.5-10.8)
[2018-04-15 17:21] LABS: EGFR Non-African American 95.4 (>60)
[2018-04-15] MEDS: Melatonin 3 MG TAB PO PRN (23:29)
[2018-04-16] MEDS: HYDROmorphone INJ* 2 MG/ML CARPUJECT SYRINGE IV SLOW PU PRN ×6 (02:09→22:32)
[2018-04-16] MEDS: Ondansetron 40 MG VIAL* 2 MG/ML 20 ML VIAL IV PRN ×4 (02:09→23:16)
[2018-04-16] MEDS: LORazepam INJ* 2 MG/ML 1 ML VIAL IV PUSH PRN ×3 (04:55→23:16)
[2018-04-16] MEDS: Heparin VIAL(*) 5000 UNITS/ML VIAL (FIVE THOUSAND) SUBCUT SCH ×3 (04:55→20:40)
[2018-04-16 05:21] LABS: ABS Basophils 0.1 10^3/ul (0-0.2); ABS Eosinophils 0.1 10^3/ul (0-0.6); ABS Lymphocytes 2.9 10^3/ul (1.0-4.8); ABS Monocytes 0.5 10^3/ul (0-0.8); ABS Neutrophils 4.1 10^3/ul (1.5-7.7); ABS Nucleated RBC 0 10^3/ul; Eosinophil % 1.3 % (0-6); Hematocrit 34 % (35-47); Hemoglobin 11.7 g/dl (12.0-16.0); Lymphocyte % 37.7 % (25-47); Mean Corpuscular HGB Conc 35 g/dl (31-36); Mean Corpuscular Hemoglobin 30 pg (27-31); Mean Corpuscular Volume 86 fL (80-97); Mean Platelet Volume 7.5 um3 (7.4-10.4); Nucleated Red Blood Cells % 0; Platelet Count 231 10^3/ul (150-450); Red Blood Count 3.93 10^6/ul (4.00-5.40); Red Cell Distribution Width 13 % (10.5-15); White Blood Count 7.7 10^3/ul (3.5-10.8)
[2018-04-16 05:37] LABS: EGFR Non-African American 76.9 (>60)
[2018-04-16] MEDS: Atorvastatin* 20 MG TAB PO SCH (08:44)
[2018-04-16] MEDS: Fluticasone NASAL SPRAY 50MCG* 16 gm SPRAY BTL BOTH NARES SCH ×2 (08:44→20:39)
[2018-04-16] MEDS: Metoprolol Succinate XL TAB* 50 MG PO SCH (08:45)
[2018-04-16] MEDS: Pantoprazole TAB (NF) 40 MG TAB PO SCH (08:45)
[2018-04-16] MEDS: NIFEdipine CAP* 10 MG PO SCH ×3 (08:45→20:39)
[2018-04-16] MEDS: Clopidogrel TAB* 75 MG PO SCH (08:45)
[2018-04-16] MEDS: Carisoprodol TAB* 350 MG PO SCH ×4 (08:45→20:39)
[2018-04-16] MEDS: Losartan TAB* 25 MG PO SCH (08:46)
[2018-04-16] MEDS: Sucralfate TAB* 1 GM PO SCH ×2 (08:46→20:39)
[2018-04-16] MEDS: amLODIPine TAB* 5 MG PO SCH (08:46)
[2018-04-16] MEDS ORDERED: HYDROmorphone INJ* 2 MG/ML CARPUJECT SYRINGE IV SLOW PU PRN (11:20)
--- NOTE | 2018-04-16 15:49 | PN ---
Subjective Date of Service: 04/16/18 Interval History: Patient reports today she is again not feeling well with dry heaving, no appetite, esophageal discomfort. No vomiting. No fevers or chills. Reports she feels "terrible" and is happy that GI will do an upper endoscopy in am. Objective Active Medications: Albuterol (Ventolin Hfa Inhaler*) 2 puff INH Q4HR PRN PRN Reason: WHEEZING Amlodipine Besylate ([facility]asc Tab*) [facility] [place] Last Admin: 04/16/18 08:46 Dose: 10 mg Atorvastatin Calcium (Lipitor*) [facility] [place] Last Admin: 04/16/18 08:44 Dose: 20 mg Carisoprodol (Soma Tab*) 350 mg PO QID [facility] Last Admin: 04/16/18 13:17 Dose: 350 mg Clopidogrel Bisulfate (Plavix Tab*) [facility] [place] Last Admin: 04/16/18 08:45 Dose: 75 mg Diphenhydramine HCl (Benadryl Po*) 50 mg PO Q6HR PRN PRN Reason: ITCHING Fluticasone Propionate (Flonase Nasal [place] 50mcg*) 2 spray BOTH NARES BID [facility] Last Admin: 04/16/18 08:44 Dose: 2 spray Heparin Sodium (Porcine) (Heparin Vial(*)) 5,000 units SUBCUT Q8HR [facility] Last Admin: 04/16/18 13:18 Dose: 5,000 units Hydromorphone HCl (Dilaudid Inj*) 1 mg IV SLOW PU Q3H PRN PRN Reason: PAIN Last Admin: 04/16/18 15:34 Dose: 1 mg Sodium Chloride (Ns 0.9% 1000 Ml*) 1,000 mls @ 75 mls/hr IV PER RATE [facility] Last Admin: 04/15/18 23:29 Dose: 75 mls/hr Lorazepam (Ativan Inj*) 0.5 mg IV PUSH Q6H PRN PRN Reason: nausea Last Admin: 04/16/18 13:17 Dose: 0.5 mg Losartan Potassium (Cozaar Tab*) 50 mg PO [facility] Last Admin: 04/16/18 08:46 Dose: 50 mg Melatonin (Melatonin) 3 mg PO BEDTIME PRN; Protocol PRN Reason: Sleep Last Admin: 04/15/18 23:29 Dose: 3 mg Metoprolol Succinate (Toprol Xl Tab*) 50 mg PO QAM [facility] Last Admin: 04/16/18 08:45 Dose: 50 mg Nifedipine (Procardia Cap*) 10 mg PO TID [facility] Last Admin: 04/16/18 13:17 Dose: 10 mg Nitroglycerin (Nitroglycerin Tab 0.4 Mg*) 0.4 mg SL Q5M PRN PRN Reason: chest pain Ondansetron HCl (Zofran 40 Mg Vial*) 4 mg IV Q4H PRN PRN Reason: NAUSEA/VOMITING Last Admin: 04/16/18 13:18 Dose: 4 mg Pantoprazole Sodium (Protonix Tab (Nf)) 40 mg PO DAILY [facility] Last Admin: 04/16/18 08:45 Dose: 40 mg Prochlorperazine (Compazine Tab*) 10 mg PO BID PRN PRN Reason: NAUSEA/VOMITING Last Admin: 04/14/18 04:44 Dose: 10 mg Sucralfate (Carafate*) 1 gm PO BID [facility] Last Admin: 04/16/18 08:46 Dose: 1 gm Vital Signs - 8 hr 04/16/18 04/16/18 04/16/18 08:00 08:32 08:45 Respiratory 16 18 18 Rate 04/16/18 04/16/18 04/16/18 10:42 12:06 13:17 Respiratory 16 16 18 Rate 04/16/18 04/16/18 04/16/18 13:32 13:33 15:34 Respiratory 16 16 16 Rate Oxygen Devices in Use Now: None Appearance: chronically ill female A+O x3, appears mildly ill Eyes: No Scleral Icterus, PERRLA Ears/Nose/Mouth/Throat: NL Teeth, Lips, Gums, Mucous Membranes Moist Neck: NL Appearance and Movements; NL JVP Respiratory: Symmetrical Chest Expansion and Respiratory Effort Cardiovascular: NL Sounds; No Murmurs; No JVD, RRR, No Edema Abdominal: NL Sounds; No Tenderness; No Distention, - - G tube intact. No noted erythema Extremities: No Edema, No Clubbing, Cyanosis Skin: - - upper right chest wall port intact Neurological: Alert and Oriented x 3, NL Sensation, NL Muscle Strength and Tone Lines/Tubes/Other Access: Clean, Dry and Intact Peripheral IV, Clean, Dry and Intact Percuteneous Feeding Tube Nutrition: Taking PO's - taking sips of clears only Result Diagrams: 04/16/18 05:45 04/16/18 06:43 Additional Lab and Data: Lab Results 04/13/18 04/13/18 04/13/18 Range/Units 04:43 04:43 04:43 WBC 10.8 (3.5-10.8) 10^3/ul RBC 4.82 (4.00-5.40) 10^6/ul Hgb 14.7 (12.0-16.0) g/dl Hct 42 (35-47) % MCV 86 (80-97) fL MCH 30 (27-31) pg MCHC 35 (31-36) g/dl RDW 14 (10.5-15) % Plt Count 323 (150-450) 10^3/ul MPV 7.7 (7.4-10.4) um3 Neut % (Auto) 84.9 H (38-83) % Lymph % (Auto) 9.8 L (25-47) % [place] % (Auto) 5.0 (0-7) % Eos % (Auto) 0.1 (0-6) % Baso % (Auto) 0.2 (0-2) % Absolute Neuts (auto) 9.2 H (1.5-7.7) 10^3/ul Absolute Lymphs (auto) 1.1 (1.0-4.8) 10^3/ul Absolute Monos (auto) 0.5 (0-0.8) 10^3/ul Absolute Eos (auto) 0 (0-0.6) 10^3/ul Absolute Basos (auto) 0 (0-0.2) 10^3/ul Absolute Nucleated RBC 0 10^3/ul Nucleated RBC % 0.2 INR (Anticoag Therapy) 0.90 (0.77-1.02) APTT 33.2 (26.0-36.3) seconds Sodium 135 (135-145) mmol/L Potassium 3.5 (3.5-5.0) mmol/L Chloride 101 (101-111) mmol/L Carbon Dioxide 20 L (22-32) mmol/L Anion Gap 14 H (2-11) mmol/L BUN 19 (6-24) mg/dL Creatinine 0.82 (0.51-0.95) mg/dL Est GFR ( Amer) 85.2 (>60) Est GFR (Non-Af Amer) 70.4 (>60) BUN/Creatinine Ratio 23.2 H (8-20) Glucose 148 H (70-100) mg/dL Lactic Acid (0.5-2.0) mmol/L Calcium 9.4 (8.6-10.3) mg/dL Magnesium 1.7 L (1.9-2.7) mg/dL Total Bilirubin 0.90 (0.2-1.0) mg/dL AST 17 (13-39) U/L ALT 11 (7-52) U/L Alkaline Phosphatase 66 (34-104) U/L Troponin I 0.01 (<0.04) ng/mL B-Natriuretic Peptide ( - 100) pg/mL Total Protein 7.1 (6.4-8.9) g/dL Albumin 4.3 (3.2-5.2) g/dL Globulin 2.8 (2-4) g/dL Albumin/Globulin Ratio 1.5 (1-3) 04/13/18 04/13/18 Range/Units 04:43 04:43 WBC (3.5-10.8) 10^3/ul RBC (4.00-5.40) 10^6/ul Hgb (12.0-16.0) g/dl Hct (35-47) % MCV (80-97) fL MCH (27-31) pg MCHC (31-36) g/dl RDW (10.5-15) % Plt Count (150-450) 10^3/ul MPV (7.4-10.4) um3 Neut % (Auto) (38-83) % Lymph % (Auto) (25-47) % [place] % (Auto) (0-7) % Eos % (Auto) (0-6) % Baso % (Auto) (0-2) % Absolute Neuts (auto) (1.5-7.7) 10^3/ul Absolute Lymphs (auto) (1.0-4.8) 10^3/ul Absolute Monos (auto) (0-0.8) 10^3/ul Absolute Eos (auto) (0-0.6) 10^3/ul Absolute Basos (auto) (0-0.2) 10^3/ul Absolute Nucleated RBC 10^3/ul Nucleated RBC % INR (Anticoag Therapy) (0.77-1.02) APTT (26.0-36.3) seconds Sodium (135-145) mmol/L Potassium (3.5-5.0) mmol/L Chloride (101-111) mmol/L Carbon Dioxide (22-32) mmol/L Anion Gap (2-11) mmol/L BUN (6-24) mg/dL Creatinine (0.51-0.95) mg/dL Est GFR ( Amer) (>60) Est GFR (Non-Af Amer) (>60) BUN/Creatinine Ratio (8-20) Glucose (70-100) mg/dL Lactic Acid 2.0 (0.5-2.0) mmol/L Calcium (8.6-10.3) mg/dL Magnesium (1.9-2.7) mg/dL Total Bilirubin (0.2-1.0) mg/dL AST (13-39) U/L ALT (7-52) U/L Alkaline Phosphatase (34-104) U/L Troponin I (<0.04) ng/mL B-Natriuretic Peptide 67 ( - 100) pg/mL Total Protein (6.4-8.9) g/dL Albumin (3.2-5.2) g/dL Globulin (2-4) g/dL Albumin/Globulin Ratio (1-3) Assess/Plan/Problems-Billing Assessment: Ms. ferrer is a 63 yo female with complaex PMH inclduing achalasia, Barrettes esophagus, multiple espohageal dilations, J-tube placement, multiple abdominal surgeries, s/p Godwin funcoplication, CAD with hx of [place] s/p stenting, infusaport insertion February 2018 (please see H&P for full PMH which is quite extensive) who presented on 04/13 with c/o chest/abdominal pain and intractable vomiting. Cardiac work-up negative. - Patient Problems (1) Abdominal pain Comment: - abdominal/chest pain. Cardiac etiology ruled out. Today she is back to dry heaving/nausea/esophageal pain and not feeling well. - Appreciate GI consult - end-stage achalasia. Possibly achalasia vs other GI etiology. - Plan for upper endoscopy tomorrow with Dr. Galindo. NPO after midnight - CT abdomen/chest/Pelvis showing no acute processes - continue supportive treatment (2) Achalasia Comment: - Has G tube as is not able to tolerate adequate oral intake. Supplemental tube feedings on hold d/t nausea and patient refusing - Tube exchanged in [place] recently, working appropriately. (3) Electrolyte abnormality Comment: -recplace electrolytes (4) CAD (coronary artery disease) Comment: - troponins negative - Continue clopidogrel, metoprolol, statin. (5) HTN (hypertension) Comment: - controlled SBP 120-130s - continue procardia, norvasc (6) DVT prophylaxis Comment: - Heparin SQ. (7) Full code status Comment: Status and Disposition: inpatient. most likely home when medically stable.
[2018-04-16] MEDS ORDERED: Magnesium Sulfate 2 GM IV* 2 GM/50 ML BAG IVPB ONE (17:54)
[2018-04-16] MEDS: KCL 20 MEQ/100 ML IVPREMIX* 20 MEQ/100 ML BAG IV SCH ×2 (20:38→23:18)
[2018-04-17] MEDS: HYDROmorphone INJ* 2 MG/ML CARPUJECT SYRINGE IV SLOW PU PRN ×4 (01:30→12:21)
[2018-04-17] MEDS: Prochlorperazine TAB* 10 MG PO PRN (01:31)
[2018-04-17] MEDS: Heparin VIAL(*) 5000 UNITS/ML VIAL (FIVE THOUSAND) SUBCUT SCH ×3 (04:36→21:14)
[2018-04-17 05:00] LABS: ABS Basophils 0.1 10^3/ul (0-0.2); ABS Eosinophils 0.1 10^3/ul (0-0.6); ABS Lymphocytes 2.4 10^3/ul (1.0-4.8); ABS Monocytes 0.5 10^3/ul (0-0.8); ABS Nucleated RBC 0 10^3/ul; Eosinophil % 1.7 % (0-6); Hematocrit 33 % (35-47); Hemoglobin 11.6 g/dl (12.0-16.0); Lymphocyte % 33.7 % (25-47); Mean Corpuscular HGB Conc 35 g/dl (31-36); Mean Corpuscular Hemoglobin 30 pg (27-31); Mean Corpuscular Volume 85 fL (80-97); Mean Platelet Volume 7.6 um3 (7.4-10.4); Nucleated Red Blood Cells % 0.1; Platelet Count 228 10^3/ul (150-450); Red Blood Count 3.89 10^6/ul (4.00-5.40); Red Cell Distribution Width 13 % (10.5-15); White Blood Count 7.1 10^3/ul (3.5-10.8)
[2018-04-17] MEDS: Metoprolol Succinate XL TAB* 50 MG PO SCH (10:12)
[2018-04-17] MEDS: Fluticasone NASAL SPRAY 50MCG* 16 gm SPRAY BTL BOTH NARES SCH ×2 (10:12→19:45)
[2018-04-17] MEDS: Losartan TAB* 25 MG PO SCH (10:12)
[2018-04-17] MEDS: amLODIPine TAB* 5 MG PO SCH (10:13)
[2018-04-17] MEDS: Sucralfate TAB* 1 GM PO SCH ×2 (10:13→19:43)
[2018-04-17] MEDS: Atorvastatin* 20 MG TAB PO SCH (10:13)
[2018-04-17] MEDS: Clopidogrel TAB* 75 MG PO SCH (10:13)
[2018-04-17] MEDS: Carisoprodol TAB* 350 MG PO SCH ×4 (10:13→19:43)
[2018-04-17] MEDS: NIFEdipine CAP* 10 MG PO SCH ×3 (10:13→19:43)
[2018-04-17] MEDS: Ondansetron 40 MG VIAL* 2 MG/ML 20 ML VIAL IV PRN ×2 (12:21→19:39)
[2018-04-17] MEDS ORDERED: Midazolam* 1 MG/ML 10 ML VIAL (10 MG) ONE ×2 (13:47→15:02)
[2018-04-17] MEDS ORDERED: fentaNYL* 50 MCG/ML 2 ML VIAL (100 MCG VIAL) ONE ×2 (13:47→15:02)
[2018-04-17] MEDS: HYDROmorphone INJ* 0.5 MG/0.5 ML SYRINGE IV SLOW PU PRN ×2 (16:10→19:35)
[2018-04-17] MEDS: Pantoprazole TAB (NF) 40 MG TAB PO SCH (16:11)
--- NOTE | 2018-04-17 16:57 | PN ---
Subjective Date of Service: 04/17/18 Interval History: Ms. Prasad reports feeling somewhat better this afternoon after her scope. She is tolerating some ice cream. She denies chest pain or shortness of breath. Objective Active Medications: Albuterol (Ventolin Hfa Inhaler*) 2 puff INH Q4HR PRN Amlodipine Besylate (Norvasc Tab*) 10 mg PO QAM [facility] Carisoprodol (Soma Tab*) 350 mg PO QID [facility] Clopidogrel Bisulfate (Plavix Tab*) 75 mg PO QAM [facility] Diphenhydramine HCl (Benadryl Po*) 50 mg PO Q6HR PRN Fluticasone Propionate (Flonase Nasal [place] 50mcg*) 2 spray BOTH NARES BID [facility] Heparin Sodium (Porcine) (Heparin Vial(*)) 5,000 units SUBCUT Q8HR [facility] Hydromorphone HCl (Dilaudid Inj*) 1 mg IV SLOW PU Q3H PRN Sodium Chloride (Ns 0.9% 1000 Ml*) 1,000 mls @ 75 mls/hr IV PER RATE [facility] Lorazepam (Ativan Inj*) 0.5 mg IV PUSH Q6H PRN Losartan Potassium (Cozaar Tab*) 50 mg PO QAM [facility] Melatonin (Melatonin) 3 mg PO BEDTIME PRN; Protocol Metoprolol Succinate (Toprol Xl Tab*) 50 mg PO QAM [facility] Nifedipine (Procardia Cap*) 10 mg PO TID [facility] Nitroglycerin (Nitroglycerin Tab 0.4 Mg*) 0.4 mg SL Q5M PRN Ondansetron HCl (Zofran 40 Mg Vial*) 4 mg IV Q4H PRN Pantoprazole Sodium (Protonix Tab (Nf)) 40 mg PO DAILY [facility] Prochlorperazine (Compazine Tab*) 10 mg PO BID PRN Sucralfate (Carafate*) 1 gm PO BID [facility] Vital Signs: Temp Pulse Resp BP Pulse Ox 98.0 F 55 16 149/84 98 04/17/18 16:12 04/17/18 16:12 04/17/18 16:12 04/17/18 16:12 04/17/18 16:12 Oxygen Devices in Use Now: None Appearance: Female sitting up in bed in NAD Eyes: No Scleral Icterus Ears/Nose/Mouth/Throat: Mucous Membranes Moist Neck: Trachea Midline Respiratory: Symmetrical Chest Expansion and Respiratory Effort, Clear to Auscultation Cardiovascular: NL Sounds; No Murmurs; No JVD, No Edema Abdominal: NL Sounds; No Tenderness; No Distention Lymphatic: No Cervical Adenopathy, No Axillary Adenopathy Skin: No Rash or Ulcers Neurological: Alert and Oriented x 3, NL Muscle Strength and Tone Nutrition: Taking PO's Result Diagrams: 04/17/18 04:45 04/17/18 04:45 Additional Lab and Data: . Assess/Plan/Problems-Billing Assessment: Ms. Prasad is a 63 yo female with complaex PMH including achalasia, Barrettes esophagus, multiple espohageal dilations, J-tube placement, multiple abdominal surgeries, s/p Godwin funcoplication, CAD with hx of [place] s/p stenting, infusaport insertion February 2018 (please see H&P for full PMH which is quite extensive) who presented on 04/13 with c/o chest/abdominal pain and intractable vomiting. Cardiac work-up negative. - Patient Problems (1) Abdominal pain Comment: - Abd/chest pain. Improved today. - Appreciate GI consult. Upper endoscopy today with concern for yeast infection , clotrimazole troches started. (2) Achalasia Comment: - Has G tube as is not able to tolerate adequate oral intake. Supplemental tube feedings on hold d/t nausea and patient refusing - Tube exchanged in [place] recently, working appropriately. (3) Electrolyte abnormality Comment: - Replete (4) HTN (hypertension) Comment: - controlled SBP 120-130s - continue procardia, norvasc (5) CAD (coronary artery disease) Comment: - troponins negative - Continue clopidogrel, metoprolol, statin. (6) COPD (chronic obstructive pulmonary disease) Comment: - No evidence of acute exacerbation. - Continue PRN albuterol. (7) HLD (hyperlipidemia) Current Visit: No Status: Chronic Code(s): E78.5 - HYPERLIPIDEMIA, UNSPECIFIED SNOMED Code(s): 22612539 Comment: - Continue atorvastatin. (8) DVT prophylaxis Comment: - Heparin SQ. (9) Full code status Comment: Status and Disposition: inpatient. most likely home when medically stable.
[2018-04-17] MEDS: Clotrimazole TROCHE* 10 MG TROCHE PO SCH ×3 (17:58→19:46)
[2018-04-17] MEDS: Melatonin 3 MG TAB PO PRN (21:14)
[2018-04-17] MEDS: LORazepam INJ* 2 MG/ML 1 ML VIAL IV PUSH PRN (21:14)
[2018-04-17] MEDS: NS 0.9% 1000 ML* 1,000 ML IV SCH (21:18)
[2018-04-18] MEDS: HYDROmorphone INJ* 0.5 MG/0.5 ML SYRINGE IV SLOW PU PRN ×7 (00:56→22:58)
[2018-04-18] MEDS: Ondansetron 40 MG VIAL* 2 MG/ML 20 ML VIAL IV PRN ×2 (00:57→05:01)
[2018-04-18] MEDS: Heparin VIAL(*) 5000 UNITS/ML VIAL (FIVE THOUSAND) SUBCUT SCH ×3 (05:01→21:40)
--- NOTE | 2018-04-18 05:10 | PRO ---
DATE: 04/17/18 - ROOM #408 REFERRING PHYSICIANS: Trish Combs, [place]; Douglas Ayala, Pain Clinic; Eddie Buckley, Thoracic Surgery, [facility] * PROCEDURE: Upper gastrointestinal endoscopy through to apex of duodenal bulb. INDICATION: This 63-year-old woman with a long history of upper gut surgeries, originally per report directed at achalasia and now has a permanent percutaneous gastrostomy and jejunostomy for feeding (June 2016). She has also had recurring ER evaluations and admissions for evaluation of chest pain. She actually has had 4 nuclear stress tests chemically-induced in the last 5 years. Thirty eight pages of [facility] records (all full of content) are hidden in the "other facility information" file listed under 05/13/17. They include Thoracic Surgery notes and her gastroscopy with PEG placement in 2015 At this time, she presented to the ER with complaints of chest pain. She described it as acute and 10/10. There were no objective findings. Multiple symptomatic meds were not helpful. Her troponins were 0, albumin 4.3, and white count initially 10.8 but fell to 7.4 within 2 days. Hemoglobin was 14.7 and fell on hydration to 12.5 and then 11.7. CRP was not done. Beta natriuretic peptide was normal at 67 (less than 100). She was kept on clear liquids and continued to complain of a sense of being unwell or nauseated. All of her pills are being given as tablets none via elixir. At home, she takes Plavix 75, metoprolol 50, losartan 50, nifedipine 10 t.i.d., simvastatin 40 q.a.m., Soma 350 q.i.d., morphine sulfate 30 t.i.d., omeprazole 40. Her [facility] notes show at the last EGD, September 2016, the EG junction was described as showing signs of a prior fundoplication with the EG junction (agape ). Calls to Dr Buckley and Dr Combs found them both to be out of state on vacation. ENDOSCOPIST: Dr. Galindo. MEDICATIONS: Midazolam 10, fentanyl 200 with the patient conversational throughout, but comfortable during the procedure. She was immediately awake and responsive to meaningful dialogue. EGD: Larynx - symmetric with normal mucosa. Esophagus - easily entered and the mucosa is normal in the upper and mid esophagus. There are no erosions. There is some small punctate white dots suggestive of a mild monilia from 38 to 40. The EG junction is indeed somewhat loose and agape, but there are no erosions and no scars and no reflux seen during the exam. There are no chronic changes. There does appear to be signs of prior surgery. Stomach - there is a moderate amount of retained bilious fluid with underlying granular debris in the fundus. It is quite a bit. Mucosa otherwise is normal. There is a PEG tube in the mid gastric body with a jejunostomy tube extending straight down to the pylorus and going through it. Views during full insufflation show no mucosal irritation or abnormality at the PEG tube entry site or along the course of the jejunostomy. The antrum appears normal. Duodenum - cautiously the scope traversed the pylorus which appeared normal and then the duodenal bulb and apex of the bulb and possibly a couple of centimeters of second portion were normal. IMPRESSION: 1. Status post fundoplication - no chronic scarring or inflammation is seen in the esophagus. A columnar lining to the esophagus cannot be confirmed. It is not clear how that entered the record. 2. Gastric retention - the fundic material would appear to be a large amount of pill debris. The patient had a normal gastric emptying study here on with an emptying time of 77 minutes (copy sent to Dr. Javid Romo, [facility]). Some vagotomy effect is possible from her surgeries 3. Status post PEG placement with jejunostomy tube - all appears in order. 4. Mild esophageal monilia - clotrimazole troches will be started. 5. Anorexia and inability to eat - cause unclear. An attempt to get her off of many of her meds or reduce the doses would appear to be indicated. It seems unlikely she requires omeprazole 40 and that could be tapered to 20 or lansoprazole 15 and resist the temptation to re escalate the dose with "new" symptoms. Soma could be tapered. Many other meds could be tapered and remaining meds might better be administered as Elixir or dissolved to go through the jejunostomy tube acknowledging maintaining its patency is a high priority and briefly or cursorily crushed meds would not be appropriate. [id number]/[facility] #: [id number] [facility]
--- NOTE | 2018-04-18 07:46 | PN ---
Subjective Date of Service: 04/18/18 Interval History: Ms. Prasad reports continued chronic chest and epigastric pain though she feels better than at baseline. She had diarrhea each time she took her clotrimazole troches. She would like to have her pain meds adjusted as she feels that her pain is not well managed. She follows with Dr. Ayala outpatient. Objective Active Medications: Albuterol (Ventolin Hfa Inhaler*) 2 puff INH Q4HR PRN Amlodipine Besylate (Norvasc Tab*) 10 mg PO QAM ZENA Atorvastatin Calcium (Lipitor*) 20 mg PO QAM ZENA Carisoprodol (Soma Tab*) 350 mg PO QID ZENA Clopidogrel Bisulfate (Plavix Tab*) 75 mg PO QAM ZENA Clotrimazole (Mycelex Matias*) 10 mg PO QID ZENA Diphenhydramine HCl (Benadryl Po*) 50 mg PO Q6HR PRN Fluticasone Propionate (Flonase Nasal [place] 50mcg*) 2 spray BOTH NARES BID [facility] Heparin Sodium (Porcine) (Heparin Vial(*)) 5,000 units SUBCUT Q8HR ZENA Hydromorphone HCl (Dilaudid Inj*) 1 mg IV SLOW PU Q3H PRN Sodium Chloride (Ns 0.9% 1000 Ml*) 1,000 mls @ 75 mls/hr IV PER RATE ZENA Lorazepam (Ativan Inj*) 0.5 mg IV PUSH Q6H PRN Losartan Potassium (Cozaar Tab*) 50 mg PO QAM [facility] Melatonin (Melatonin) 3 mg PO BEDTIME PRN; Protocol Metoprolol Succinate (Toprol Xl Tab*) 50 mg PO QAM [facility] Nifedipine (Procardia Cap*) 10 mg PO TID ZENA Nitroglycerin (Nitroglycerin Tab 0.4 Mg*) 0.4 mg SL Q5M PRN Ondansetron HCl (Zofran Inj*) 4 mg IV Q4H PRN Pantoprazole Sodium (Protonix Tab (Nf)) 40 mg PO DAILY ZENA Potassium Chloride (Klor-Con Liquid*) 20 meq PO DAILY ZENA Prochlorperazine (Compazine Tab*) 10 mg PO BID PRN Sucralfate (Carafate*) 1 gm PO BID [facility] Vital Signs: Temp Pulse Resp BP Pulse Ox 98.9 F 62 16 124/63 96 04/18/18 03:14 04/18/18 03:14 04/18/18 05:01 04/18/18 03:14 04/18/18 03:14 Oxygen Devices in Use Now: None Appearance: Female sitting up in bed in NAD Eyes: No Scleral Icterus Ears/Nose/Mouth/Throat: Mucous Membranes Moist Neck: Trachea Midline Respiratory: Symmetrical Chest Expansion and Respiratory Effort, Clear to Auscultation Cardiovascular: NL Sounds; No Murmurs; No JVD, No Edema Abdominal: NL Sounds; No Tenderness; No Distention Lymphatic: No Cervical Adenopathy Extremities: No Edema Skin: No Rash or Ulcers Neurological: NL Muscle Strength and Tone Nutrition: Taking PO's Result Diagrams: 04/17/18 04:45 04/17/18 04:45 Additional Lab and Data: . Assess/Plan/Problems-Billing Assessment: Ms. Prasad is a 63 yo female with complaex PMH including achalasia, Barrettes esophagus, multiple espohageal dilations, J-tube placement, multiple abdominal surgeries, s/p Godwin funcoplication, CAD with hx of [place] s/p stenting, infusaport insertion February 2018 (please see H&P for full PMH which is quite extensive) who presented on 04/13 with c/o chest/abdominal pain and intractable vomiting. Cardiac work-up negative. - Patient Problems (1) Abdominal pain Comment: - Abd/chest pain. Improved today. - Appreciate GI consult. Upper endoscopy today with concern for yeast infection , clotrimazole troches started but patient did not tolerate. Also found large amount of pill debris in stomache, recommends decreasing pill-form meds as possible, will review with pharmacy. (2) Achalasia Comment: - Has JG tube as is not able to tolerate adequate oral intake. Supplemental tube feedings on hold d/t nausea and patient refusing - Tube exchanged in [place] recently, working appropriately. (3) Electrolyte abnormality Comment: - Hyponatremia and hypokalemia, repleted. (4) HTN (hypertension) Comment: - controlled SBP 120-130s - continue procardia, norvasc (5) CAD (coronary artery disease) Comment: - troponins negative - Continue clopidogrel, metoprolol, statin. (6) COPD (chronic obstructive pulmonary disease) Comment: - No evidence of acute exacerbation. - Continue PRN albuterol. (7) HLD (hyperlipidemia) Current Visit: No Status: Chronic Code(s): E78.5 - HYPERLIPIDEMIA, UNSPECIFIED SNOMED Code(s): 88412585 Comment: - Continue atorvastatin. (8) DVT prophylaxis Comment: - Heparin SQ. (9) Full code status Comment: Status and Disposition: inpatient. most likely home when medically stable.
[2018-04-18] MEDS ORDERED: Prochlorperazine TAB* 10 MG J TUBE PRN (08:59)
[2018-04-18] MEDS ORDERED: Potassium Chloride LIQUID* 20 MEQ PACKET PO SCH (09:00)
[2018-04-18] MEDS ORDERED: diPHENhydraMINE LIQ* 12.5 MG/5 ML UDC J TUBE PRN (09:00)
[2018-04-18] MEDS ORDERED: Sucralfate SUSP 1 GM/10 ml 10 ML UDC J TUBE SCH (09:00)
[2018-04-18] MEDS ORDERED: Clopidogrel TAB* 75 MG SCH (09:04)
[2018-04-18] MEDS: Fluticasone NASAL SPRAY 50MCG* 16 gm SPRAY BTL BOTH NARES SCH ×2 (09:05→21:35)
[2018-04-18] MEDS: Carisoprodol TAB* 350 MG SCH ×4 (11:22→21:33)
[2018-04-18] MEDS: Losartan TAB* 25 MG J TUBE SCH (11:23)
[2018-04-18] MEDS: Atorvastatin* 20 MG TAB J TUBE SCH (11:23)
[2018-04-18] MEDS: Metoprolol Tartrate TAB* 50 mg J TUBE SCH ×2 (11:23→21:33)
[2018-04-18] MEDS: Potassium Chloride LIQUID* 20 MEQ PACKET J TUBE SCH (11:24)
[2018-04-18] MEDS: Famotidine SUSP* 40 MG/5 ML ORAL.SYRIN J TUBE SCH (11:25)
[2018-04-18] MEDS: Clotrimazole TROCHE* 10 MG TROCHE PO SCH ×2 (11:27→15:03)
[2018-04-18] MEDS ORDERED: NIFEdipine CAP* 10 MG J TUBE SCH (11:30)
[2018-04-18] MEDS: NIFEdipine CAP* 10 MG J TUBE SCH ×2 (11:45→17:05)
[2018-04-18] MEDS: Clopidogrel TAB* 75 MG PO SCH (12:14)
[2018-04-18] MEDS: amLODIPine TAB* 5 MG PO SCH (12:14)
[2018-04-18] MEDS: NIFEdipine CAP* 10 MG PO SCH (12:15)
[2018-04-18] MEDS: Pantoprazole TAB (NF) 40 MG TAB PO SCH (12:15)
[2018-04-18] MEDS: Ondansetron INJ* 2 MG/ML VIAL IV PRN ×2 (12:53→19:46)
[2018-04-18] MEDS ORDERED: Morphine ORAL.SOLN 10 mg* 2 MG/ML UDC 5 ml PO SCH (21:00)
[2018-04-18] MEDS ORDERED: Morphine TAB Extended Release (*) 30 MG TAB.ER PO SCH (21:00)
[2018-04-18] MEDS: Sucralfate SUSP 1 GM/10 ml 10 ML UDC J TUBE SCH (21:36)
[2018-04-18] MEDS: Morphine ORAL.SOLN 10 mg* 2 MG/ML UDC 5 ml J TUBE SCH (21:36)
[2018-04-19] MEDS: Morphine ORAL.SOLN 10 mg* 2 MG/ML UDC 5 ml J TUBE SCH ×4 (00:50→13:05)
[2018-04-19] MEDS: Ondansetron INJ* 2 MG/ML VIAL IV PRN (00:50)
[2018-04-19] MEDS: HYDROmorphone INJ* 0.5 MG/0.5 ML SYRINGE IV SLOW PU PRN ×4 (02:06→13:04)
[2018-04-19] MEDS: Heparin VIAL(*) 5000 UNITS/ML VIAL (FIVE THOUSAND) SUBCUT SCH ×2 (05:21→13:35)
--- NOTE | 2018-04-19 07:38 | PN ---
Subjective Date of Service: 04/19/18 Interval History: Ms. Prasad reports that she is feeling reasonably well today. Her abdominal pain is "so so" but is better after starting liquid morphine last night. She denies nausea or diarrhea. She is agreeable with discharge to home today. Objective Active Medications: Albuterol (Ventolin Hfa Inhaler*) 2 puff INH Q4HR PRN Atorvastatin Calcium (Lipitor*) 20 mg J TUBE QAM [facility] Carisoprodol (Soma Tab*) 350 mg .SEE ORDER QID ZENA Clopidogrel Bisulfate (Plavix Tab*) 75 mg .SEE ORDER QAM ZENA Diphenhydramine HCl (Benadryl Liq*) 50 mg J TUBE Q6HR PRN Famotidine (Pepcid Susp*) 20 mg J TUBE DAILY [facility] Fluticasone Propionate (Flonase Nasal [place] 50mcg*) 2 spray BOTH NARES BID [facility] Heparin Sodium (Porcine) (Heparin Vial(*)) 5,000 units SUBCUT Q8HR [facility] Heparin Sodium (Porcine) (Heparin Flush Port (Ivad)) 5 ml FLUSH DAILY [facility]; Protocol Hydromorphone HCl (Dilaudid Inj*) 1 mg IV SLOW PU Q3H PRN Lorazepam (Ativan Inj*) 0.5 mg IV PUSH Q6H PRN Losartan Potassium (Cozaar Tab*) 50 mg J TUBE QAM [facility] Melatonin (Melatonin) 3 mg PO BEDTIME PRN; Protocol Metoprolol Tartrate (Lopressor Tab*) 50 mg J TUBE Q12HR [facility] Morphine Sulfate (Morphine Oral.Soln 10 Mg*) 10 mg J TUBE Q4H [facility] Nifedipine (Procardia Cap*) 20 mg J TUBE TID AC [facility] Nitroglycerin (Nitroglycerin Tab 0.4 Mg*) 0.4 mg SL Q5M PRN Ondansetron HCl (Zofran Inj*) 4 mg IV Q4H PRN Potassium Chloride (Klor-Con Liquid*) 20 meq J TUBE DAILY [facility] Prochlorperazine (Compazine Tab*) 10 mg J TUBE BID PRN Sucralfate (Sucralfate Susp) 1 gm J TUBE BID@0700,2100 [facility] Vital Signs: Temp Pulse Resp BP Pulse Ox 98.6 F 63 15 123/72 96 04/19/18 03:24 04/19/18 03:24 04/19/18 05:20 04/19/18 03:24 04/19/18 03:24 Oxygen Devices in Use Now: None Appearance: Female sitting up in bed in NAD Eyes: No Scleral Icterus Ears/Nose/Mouth/Throat: Mucous Membranes Moist Neck: Trachea Midline Respiratory: Symmetrical Chest Expansion and Respiratory Effort, Clear to Auscultation Cardiovascular: NL Sounds; No Murmurs; No JVD, No Edema Abdominal: NL Sounds; No Tenderness; No Distention, - - G/J tube Extremities: No Edema Skin: No Rash or Ulcers Neurological: Alert and Oriented x 3, NL Muscle Strength and Tone Nutrition: Taking PO's Result Diagrams: 04/17/18 04:45 04/17/18 04:45 Additional Lab and Data: . Assess/Plan/Problems-Billing Assessment: Ms. Prasad is a 63 yo female with complaex PMH including achalasia, Barrettes esophagus, multiple espohageal dilations, J-tube placement, multiple abdominal surgeries, s/p Godwin funcoplication, CAD with hx of [place] s/p stenting, infusaport insertion February 2018 (please see H&P for full PMH which is quite extensive) who presented on 04/13 with c/o chest/abdominal pain and intractable vomiting. Cardiac work-up negative. - Patient Problems (1) Abdominal pain Comment: - Abd/chest pain. Improved today with change to liquid morphine which is likely better digested. - Appreciate GI consult. Upper endoscopy today with concern for yeast infection , clotrimazole troches started but patient did not tolerate. Also found large amount of pill debris in stomache, have decreased pill-form meds where possible. (2) Achalasia Comment: - Has JG tube as is not able to tolerate adequate oral intake. Supplemental tube feedings resumed. - Tube exchanged in [place] recently, working appropriately. (3) Electrolyte abnormality Comment: - Hyponatremia and hypokalemia, repleted. (4) HTN (hypertension) Comment: - Controlled SBP 120-130s - continue procardia, norvasc (5) CAD (coronary artery disease) Comment: - Troponins negative - Continue clopidogrel, metoprolol, statin. (6) COPD (chronic obstructive pulmonary disease) Comment: - No evidence of acute exacerbation. - Continue PRN albuterol. (7) HLD (hyperlipidemia) Current Visit: No Status: Chronic Code(s): E78.5 - HYPERLIPIDEMIA, UNSPECIFIED SNOMED Code(s): 91654703 Comment: - Continue atorvastatin. (8) DVT prophylaxis Comment: - Heparin SQ. (9) Full code status Comment: Status and Disposition: Inpatient. Discharge to home.
[2018-04-19] MEDS: Sucralfate SUSP 1 GM/10 ml 10 ML UDC J TUBE SCH (07:39)
[2018-04-19] MEDS: NIFEdipine CAP* 10 MG J TUBE SCH ×2 (07:39→11:23)
[2018-04-19] MEDS: Famotidine SUSP* 40 MG/5 ML ORAL.SYRIN J TUBE SCH (09:29)
[2018-04-19] MEDS: Potassium Chloride LIQUID* 20 MEQ PACKET J TUBE SCH (09:29)
[2018-04-19] MEDS: Carisoprodol TAB* 350 MG SCH ×2 (09:31→13:05)
[2018-04-19] MEDS: Losartan TAB* 25 MG J TUBE SCH (09:31)
[2018-04-19] MEDS: Atorvastatin* 20 MG TAB J TUBE SCH (09:32)
[2018-04-19] MEDS: Metoprolol Tartrate TAB* 50 mg J TUBE SCH (09:33)
[2018-04-19] MEDS: Fluticasone NASAL SPRAY 50MCG* 16 gm SPRAY BTL BOTH NARES SCH (09:52)
--- NOTE | 2018-04-19 14:02 | DS ---
CC: Dr. Trish Combs.* HOSPITAL MEDICINE DISCHARGE SUMMARY: DATE OF ADMISSION: 04/13/18 DATE OF DISCHARGE: 04/19/18 PRIMARY CARE PHYSICIAN: Trish Combs M.D. ATTENDING PHYSICIAN: Dr. Alexa Otero * (dictated provided by Tennille Sierra NP) . PRIMARY DIAGNOSIS: Chest and abdominal pain with chronic endstage achalasia with G and J tube. SECONDARY DIAGNOSES: 1. History of coronary artery disease and myocardial infarction with stents x2. 2. History of deep venous thrombus. 3. Hyperlipidemia. 4. Hypertension. 5. History of syncope. 6. History of pulmonary embolism. 7. Fernández esophagus. 8. Breast cancer. 9. Transient ischemic attack. MEDICATIONS AT THE TIME OF DISCHARGE: The patient's medications have been continued, but all have been switched to through the J tube. The current list at the time of discharge are: 1. Jevity 1.5 [place] via J tube q. p.m. 2. Fluticasone nasal spray 2 sprays both nares b.i.d. 3. Albuterol inhaler 2 puffs inhaled q. 4 hours p.r.n. 4. Allergy eyedrops both eyes b.i.d. p.r.n. 5. EpiPen p.r.n. 6. Vitamin B12 injections 1000 mcg IM monthly. 7. Zofran orally dissolving tablets 4 mg p.o. q. 8 hours p.r.n. 8. Benadryl liquid via J-tube q. 6 hours p.r.n., i.e., 25 mg. 9. Sucralfate suspension 1 g via G tube b.i.d. with meals. 10. Simvastatin 40 mg via J tube q. a.m. 11. Compazine 10 mg via J tube b.i.d. p.r.n. nausea. 12. Potassium chloride 20 mEq via J tube daily. 13. Nitroglycerin 0.4 mg sublingually q. 5 minutes p.r.n. chest pain. 14. Nifedipine 20 mg via J tube t.i.d. with meals. 15. Metoprolol tartrate 50 mg via J tube q. 12 hours. 16. Melatonin 3 mg via J tube q. p.m. p.r.n. 17. Losartan 50 mg via J tube q. a.m. 18. Famotidine 20 mg via J tube daily. 19. Clopidogrel 75 mg via J tube q. a.m. 20. Carisoprodol 350 mg via J tube q.i.d. 21. Tylenol 650 mg via J tube q. 6 hours p.r.n. Amlodipine discontinued due to similar mechanism of action with nifedipine. HOSPITAL COURSE: Ms. Prasad is a 63-year-old female with past medical history of achalasia, coronary artery disease with [place], who presented again to the hospital with concern for chest and abdominal pain. Please see the dictated H and P from Eugenio Moore M.D., for complete details. In brief, the patient again had 10/10 nonradiating pain that awoke her up from sleep. She took her home morphine and Compazine and despite this, continued to have pain. In the emergency room, she had serial troponins all of which were negative. She had multiple rounds of IV pain medications, GI cocktails, muscle relaxants, but her pain was unrelieved. Ms. Prasad did have a chest, abdomen and pelvis CT which showed the following: "limited noncontrast imaging was performed; bilateral mastectomies, right breast implant, emphysema, annuloaortic ectasia, 1-mm nonobstructive right renal calculus, Godwin fundoplication, gastrojejunostomy tube, and moderate stool with colonic redundancy, old fractures of the right hemipelvis. In addition to troponins, she had a normal CBC, and she had BMP with no significant electrolyte abnormalities. Her vitals were stable. She also had a chest x-ray which showed "no active or acute change". Ms. Prasad was seen in consultation by Dr. Willingham from the gastroenterology service and I refer you that note for complete details, but in brief, they have made a note of her long-term history of achalasia and gastroparesis and numerous cardiothoracic esophageal surgeries for her achalasia. It appears to them that she had endstage achalasia and that she has been told in the past that her only option is total esophagectomy, though she is not willing at this point to undergo that operation. Dr. Willingham recommended that if she did not improve on current therapy that upper endoscopy could be considered. The patient went back for upper endoscopy on 04/17/[address] Galindo and he notes the following, "status post fundoplication, no chronic surrounding inflammation is seen in the esophagus. Columnar line at the esophagus could not be confirmed ; it is not clear that it entered the record. Gastric retention, a large amount of pill debris would appear." The patient had a normal gastric emptying study here on 09/14/13, with an emptying time of 77 minutes, status post PEG placement with jejunostomy tube all appears in order, mild esophageal monilia, Clotrimazole Troches will be started. He states that the anorexia and inability to eat as well as pain were unclear, but did recommend that her medications be switched to J-tube administration or discontinued if possible. To that end, we have switched all of Ms. Prasad's medications to J-tube administration. This required us to change her metoprolol succinate to tartrate , to change her from omeprazole to Pepcid. She is on nifedipine for appears to be an off-label use for her achalasia pain under direction of Dr. Ayala from her recollection. She was also on amlodipine which I have discontinued to compensate for that I have had increased the nifedipine. Other than that, her medications continue per routine, but just with administration down the J tube. She has refused the clotrimazole troches and she states they cause severe diarrhea. DISCHARGE CONDITION: Ms. Prasad is doing well today. She states her pain is reasonably controlled and she is agreeable and amenable to discharge to home. DISPOSITION: To home. DIET: Soft with supplementation with tube feeding per routine. ACTIVITY: As tolerated. FOLLOW-UP PLANS: 1. Please follow up with Dr. Combs in the next week regarding this acute hospitalization. 2. Please continue to follow up with various surgeons in [place] and gastroenterologists regarding ongoing management of endstage achalasia. TIME SPENT: Approximately 60 minutes were spent on the discharge of this patient, more than half of that time spent with her at the bedside reviewing the events leading up to this hospitalization, performing the physical examination, and reviewing the plan of care. TENNILLE SIERRA, [place] [id number]/[facility] #: [id number] [facility]ITAL[facility]ionic[facility]
[2018-04-19 16:11] VITALS: BP 147/75
== END 2018-04-19 16:30 | disposition home or self-care (01) | DRG 243 ==
LOC: ED 04:15 → MED 15:09 → OBSVTOIN 04-14 15:35
PROVIDERS: ADMIT Internal Medicine; ATTEND Internal Medicine
PROC: 0DJ08ZZ Inspection of Upper Intestinal Tract, Via Natural or Artificial Opening Endoscopic (ICD-10-PCS; principal; 2018-04-17)
DX: K22.0 Achalasia of cardia (principal); B37.81 Candidal esophagitis; E87.1 Hypo-osmolality and hyponatremia; Z68.1 Body mass index [BMI] 19.9 or less, adult; I10 Essential (primary) hypertension; I25.10 Atherosclerotic heart disease of native coronary artery without angina pectoris; E78.00 Pure hypercholesterolemia, unspecified; J44.9 Chronic obstructive pulmonary disease, unspecified; K22.70 Barrett's esophagus without dysplasia; F17.210 Nicotine dependence, cigarettes, uncomplicated; K21.9 Gastro-esophageal reflux disease without esophagitis; M19.90 Unspecified osteoarthritis, unspecified site; K57.90 Diverticulosis of intestine, part unspecified, without perforation or abscess without bleeding; N20.0 Calculus of kidney; F41.9 Anxiety disorder, unspecified; K31.89 Other diseases of stomach and duodenum; K31.84 Gastroparesis; R63.0 Anorexia; Z96.652 Presence of left artificial knee joint; E87.6 Hypokalemia; Z86.19 Personal history of other infectious and parasitic diseases; Z82.49 Family history of ischemic heart disease and other diseases of the circulatory system; Z88.8 Allergy status to other drugs, medicaments and biological substances; Z86.718 Personal history of other venous thrombosis and embolism; Z86.711 Personal history of pulmonary embolism; Z88.6 Allergy status to analgesic agent; Z91.040 Latex allergy status; Z88.0 Allergy status to penicillin; Z91.030 Bee allergy status; Z95.5 Presence of coronary angioplasty implant and graft; Z87.442 Personal history of urinary calculi; Z86.73 Personal history of transient ischemic attack (TIA), and cerebral infarction without residual deficits; Z91.041 Radiographic dye allergy status; I25.2 Old myocardial infarction; Z91.013 Allergy to seafood; Z85.3 Personal history of malignant neoplasm of breast; Z90.13 Acquired absence of bilateral breasts and nipples; Z90.711 Acquired absence of uterus with remaining cervical stump; Z83.3 Family history of diabetes mellitus; Z87.01 Personal history of pneumonia (recurrent); Z98.42 Cataract extraction status, left eye; Z98.41 Cataract extraction status, right eye; Z72.89 Other problems related to lifestyle; Z93.4 Other artificial openings of gastrointestinal tract status; Z79.02 Long term (current) use of antithrombotics/antiplatelets
CPT/HCPCS: 36415; 71045; 71250; 74176; 80048; 80053; 83605; 83690; 83735; 83880; 84484; 85025; 85610; 85730; 93005; 99156; 99157; 99285; A9270-GY; J0360; J1170; J1642; J1644; J2060; J2250; J2270; J2405; J2765; J2997; J3010; J3475; J3480; Q0164

== ENCOUNTER 2018-05-18 22:43 | Observation (INO) | payer OTHER ==
[2018-05-18] MEDS ORDERED: NS 0.9% 1000 ML* 1,000 ML IV ONE (23:36)
[2018-05-18] MEDS ORDERED: Ondansetron INJ* 2 MG/ML VIAL IV ONE (23:41)
[2018-05-18] MEDS ORDERED: HYDROmorphone INJ* 2 MG/ML CARPUJECT SYRINGE IV SLOW PU ONE (23:42)
[2018-05-18 23:47] LABS: ABS Basophils 0.1 10^3/ul (0-0.2); ABS Eosinophils 0 10^3/ul (0-0.6); ABS Lymphocytes 1.3 10^3/ul (1.0-4.8); ABS Monocytes 0.6 10^3/ul (0-0.8); ABS Neutrophils 8.4 10^3/ul (1.5-7.7); ABS Nucleated RBC 0 10^3/ul; Eosinophil % 0.2 % (0-6); Hematocrit 44 % (35-47); Lymphocyte % 12.5 % (25-47); Mean Corpuscular HGB Conc 34 g/dl (31-36); Mean Corpuscular Hemoglobin 30 pg (27-31); Mean Corpuscular Volume 87 fL (80-97); Mean Platelet Volume 7.8 um3 (7.4-10.4); Nucleated Red Blood Cells % 0; Platelet Count 326 10^3/ul (150-450); Red Blood Count 5.04 10^6/ul (4.00-5.40); Red Cell Distribution Width 13 % (10.5-15); White Blood Count 10.4 10^3/ul (3.5-10.8)
[2018-05-19 00:05] LABS: INR 0.91 (0.77-1.02)
[2018-05-19 00:16] LABS: EGFR Non-African American 90.5 (>60)
[2018-05-19] MEDS ORDERED: Potassium Chlor TAB* 20 MEQ TAB.ER PO ONE (01:37)
[2018-05-19 01:48] LABS: Urine Appearance Clear; Urine Blood 2+ (Negative); Urine Color Yellow; Urine Ketones Trace (Negative); Urine Protein 2+(100 mg/dL) (Negative); Urine Red Blood Cell 3+(>10/hpf) (Absent); Urine Specific Gravity 1.013 (1.010-1.030); Urine Urobilinogen Negative (Negative); Urine White Blood Cell Trace(0-5/hpf) (Absent)
[2018-05-19] MEDS ORDERED: cloNIDine TAB* 0.1 MG PO ONE (01:48)
[2018-05-19] MEDS ORDERED: HYDROmorphone INJ* 2 MG/ML CARPUJECT SYRINGE IV SLOW PU ONE (01:59)
[2018-05-19] MEDS ORDERED: PROCHLORPERAZINE INJ 5 MG/ML 2 ML VIAL IV PRN (01:59)
[2018-05-19] MEDS ORDERED: PROCHLORPERAZINE INJ 5 MG/ML 2 ML VIAL ONE (02:04)
[2018-05-19] MEDS ORDERED: Senna TAB J TUBE PRN (02:05)
[2018-05-19] MEDS ORDERED: Magnesium Hydroxide LIQ* 30 ML UDC PO PRN (02:05)
[2018-05-19] MEDS ORDERED: Acetaminophen TAB* 325 MG PO PRN (02:05)
[2018-05-19] MEDS ORDERED: Al Hydrox/Mg Hydrox/Simet LIQ* 30 ML UDC PO PRN (02:05)
[2018-05-19] MEDS ORDERED: Docusate LIQ* 100 MG/10 ML UDC PO PRN (02:05)
[2018-05-19] MEDS ORDERED: Albuterol HFA INHALER* 8 gm MDI INH PRN (02:11)
[2018-05-19] MEDS ORDERED: diPHENhydraMINE LIQ* 12.5 MG/5 ML UDC J TUBE PRN (02:12)
[2018-05-19] MEDS ORDERED: Melatonin 3 MG TAB PO PRN (02:14)
[2018-05-19] MEDS ORDERED: NS 0.9% 1000 ML* 1,000 ML IV SCH (02:15)
[2018-05-19] MEDS ORDERED: Acetaminophen ADULT LIQ* 650 MG/20.3 ML UDC J TUBE PRN (02:16)
[2018-05-19] MEDS ORDERED: Al Hydrox/Mg Hydrox/Simet LIQ* 30 ML UDC J TUBE PRN (02:27)
[2018-05-19] MEDS ORDERED: Magnesium Hydroxide LIQ* 30 ML UDC J TUBE PRN (02:27)
[2018-05-19] MEDS ORDERED: Potassium Chloride LIQUID* 20 MEQ PACKET PO ONE (02:41)
[2018-05-19] MEDS ORDERED: Potassium Chloride LIQUID* 20 MEQ PACKET ONE (02:42)
[2018-05-19] MEDS: Metoprolol Tartrate TAB* 50 mg J TUBE SCH ×3 (02:51→21:23)
[2018-05-19] MEDS ORDERED: NS 0.9% w/ 20 Meq KCL 1000 ML* 1,000 ML IV SCH (03:00)
--- NOTE | 2018-05-19 06:50 | HP ---
CC: Trish Combs MD * HISTORY AND PHYSICAL: DATE OF ADMISSION: 05/19/18. TIME OF EVALUATION: 0200. PRIMARY CARE PHYSICIAN: Trish Combs MD. CHIEF COMPLAINT: Abdominal pain and nausea. HISTORY OF PRESENT ILLNESS: This is a 63-year-old female with a past medical history of CAD, status post stent and chronic end-stage achalasia with J-tube placement, who presented to the emergency room with ongoing epigastric tenderness than began last night with dry heaves. She states the pain is constant and she has been intermittently with dry heaving and the pain will get worse as well. She was [place] [facility] [place] by [place], who recommended that her pills to be taken by her J-tube. She states that her appetite has been off and on for the past month. She tried to take a bite here and there when she is feeling well. She also gets weekly 1 L of normal saline infusion from her port, but she has lost 3 pounds in this month. She states she did see her thoracic surgeon in [place], Dr. Buckley, who talked about possibly having her esophagus and her stomach removed, but she states she is not ready for that yet, but she will if she has to. No fever, no coughing, no shortness of breath, no constipation or diarrhea. No urinary symptoms. She denies any recent changes in her medications since her discharge. She is taking all of her medications via J-tube. She is having epigastric pain radiating to her chest. These are similar to her prior symptoms when she presented a month ago. On my encounter, the patient is dry heaving continuously , nonstop. When she got Dilaudid and Compazine, her symptoms did subside. In the emergency room, the patient had labs, imaging. She was given potassium chloride, Zofran, Dilaudid, clonidine, IV fluids, and was referred to the hospitalist service for further evaluation. PAST MEDICAL HISTORY: 1. History of chronic end-stage achalasia with a J-tube placement followed by Dr. Buckley in [place]. 2. Gastroparesis. 3. History of a DVT. 4. Coronary artery disease, status post stent placement. 5. Hyperlipidemia. 6. History of seizure. 7. History of a TIA. 8. COPD. 9. Hypertension. 10. History of Fernández's esophagus. 11. Tobacco use. 12. History of breast cancer. MEDICATIONS: Per patient unchanged since last admission. 1. Jevity 1.5 millicent via J-tube 200 mL an hour for 8 hours in the evening time. 2. Flonase nasal spray 2 sprays both nares b.i.d. 3. Albuterol inhaler 2 puffs inhaled every 4 hours as needed. 4. Allergy eyedrops both eyes as needed. 5. EpiPen as needed. 6. Vitamin B12 injections 1000 mcg monthly. 7. Zofran oral dissolving tablets 4 mg every 8 hours as needed. 8. Benadryl liquid every 6 hours 25 mg as needed. 9. Sucralfate suspension 1 g via J-tube b.i.d. with meals. 10. Simvastatin 40 mg via J-tube daily. 11. Compazine 10 mg via J-tube b.i.d. as needed for nausea. 12. Potassium chloride 20 mEq via J-tube daily. 13. Nitro 0.4 mg sublingual as needed for chest pain. 14. Nifedipine 20 mg t.i.d. with meals via J-tube. 15. Metoprolol 50 mg via J-tube q.6 hours. 16. Melatonin 3 mg J-tube in the evening as needed for sleep. 17. Losartan 50 mg J-tube daily in the a.m. 18. Famotidine 20 mg daily in the morning. 19. Plavix 75 mg daily in the morning. 20. Soma 350 mg q.i.d. 21. Tylenol every 6 hours as needed. 22. Also note the patient gets 1 L normal saline infusion weekly. ALLERGIES: ALBUMIN, BEE VENOM, CONTRAST, PENICILLIN, BOTOX, SHELLFISH, TAPE, CHLORHEXIDINE, LATEX, NSAIDS, FENTANYL. SEASONAL ALLERGIES. FAMILY HISTORY: Reviewed and noncontributory. SOCIAL HISTORY: The patient lives at home alone. She has cut back down smoking to 2 to 3 cigarettes a day 50 pack year history, occasional alcohol use. No drug use. Her healthcare proxies are daughter and her brother. REVIEW OF SYSTEMS: A 14-point review of systems as mentioned in the HPI. Otherwise, negative. PHYSICAL EXAMINATION GENERAL: Frail elderly female, who was with persistent dry retching on my encounter. Her symptoms subsided after Dilaudid and Compazine. VITAL SIGNS: Temp 98, pulse rate 67, respiratory rate 16, oxygen saturation 94 % on room air, blood pressure 221/107. HEENT: Head: Normocephalic. Pupils are equal and reactive. Anicteric. Oropharynx: Mucous membranes are dry. NECK: Supple. No lymphadenopathy. RESPIRATORY: Diminished breath sounds. No rales or rhonchi. CARDIAC: Regular rate and rhythm. Soft systolic murmur heard throughout. ABDOMEN: Positive bowel sounds, soft, nontender, nondistended. J-tube in place. No surrounding erythema or drainage. EXTREMITIES: No clubbing, cyanosis or edema. +1 DPs. NEUROLOGIC: Alert, oriented x3. No gross focal neurological deficits. LABORATORY DATA: White count 10.4, hemoglobin 15, hematocrit 44, platelets 326. INR is 0.91. Sodium 134, potassium 3.3, chloride 100, bicarb 21, BUN 19, creatinine 0.66, glucose 140. Troponin 0.01 x2. UA shows trace ketones, 2+ blood, leuks. RADIOGRAPHIC DATA: Abdomen and pelvis CT shows no acute findings, chronic biliary dilatation is present. EKG shows nonspecific T-wave changes and normal sinus rhythm with left anterior fascicular block. ASSESSMENT: This is a 63-year-old female with a past medical history of end- stage achalasia, who presents to the emergency room with epigastric pain and intractable nausea. 1. Intractable pain and intractable nausea. Her preliminary workup is unremarkable. I suspect this is all related to her achalasia and gastroparesis and not a cardiac etiology though she does have nonspecific T-wave changes on her EKG. Plan: We will admit her to telemetry. I am going to order an echocardiogram. I think getting her intractable nausea and pain under better control with Compazine, Zofran, and Dilaudid, which seems to be working for her, placed her on a clear liquid diet, hold off on her tube feeds this evening. We will get a Nutrition consult to reevaluate her nutritional status and recommend GI evaluation to see if a repeat EGD is warranted. She likely needs a further workup or referral back to [place] for further evaluation of surgery. We could do a trial of Reglan as well to see if this helps with her symptoms. 2. Hypertension, the patient's blood pressure is elevated this evening likely secondary to her pain and intractable vomiting. We will give her antihypertensive doses this evening via J-tube and resume her remaining home medications as prescribed. 3. DVT prophylaxis. The patient scores moderate risk. Placed on heparin subcu t.i.d. 4. FEN: As mentioned. Clear liquids and IV fluids. Advance as tolerated when seen by GI. 5. Code status: Full code. PATIENT TIME: Greater than 50 minutes was spent doing the history and physical , more than half the time was spent in direct patient contact. [id number]/CPS #: [id number] [place]
[2018-05-19] MEDS: NIFEdipine CAP* 10 MG J TUBE SCH ×4 (06:53→20:11)
[2018-05-19] MEDS: HYDROmorphone INJ* 0.5 MG/0.5 ML SYRINGE IV SLOW PU PRN ×5 (06:54→23:47)
[2018-05-19] MEDS: Heparin VIAL(*) 5000 UNITS/ML VIAL (FIVE THOUSAND) SUBCUT SCH ×3 (06:54→21:26)
[2018-05-19 07:01] LABS: EGFR Non-African American 90.5 (>60)
--- NOTE | 2018-05-19 07:03 | ED ---
HPI Chest Pain - HPI Summary HPI Summary: This is asael Landeros documenting for Dr. Delonte Ruiz MD. Pt is 63 y/o F who presents to ED c/o chest pain since last night at midnight. Notes abdominal pain and hasnt been able to eat since yesterday. Rates pain severity as 10/10. Denies vomiting. PMHx of myocardial infarction. Has not had a stress test recently. - History of Current Complaint Chief Complaint: EDChestPainROMI Time Seen by Provider: 05/18/18 23:26 Hx Obtained From: Patient Onset/Duration: Started Hours Ago, Still Present Time of Onset: 00:00 Current Severity: Severe Pain Intensity: 10 Pain Scale Used: 0-10 Numeric Chest Pain Radiates: No Associated Signs and Symptoms: Positive: Chest Pain, Abdominal Pain. Negative: Vomiting - Additional Pertinent History Primary Care Physician: [id number] - Allergy/Home Medications Allergies/Adverse Reactions: Allergies Allergy/AdvReac Type Severity Reaction Status Date / Time albumin colloid, human Allergy Severe Anaphylatic Verified 05/02/18 08:27 Shock bee venom protein (honey bee) Allergy Severe Anaphylatic Verified 05/02/18 08:27 Shock Iodinated Contrast- Oral and Allergy Severe Anaphylatic Verified 05/02/18 08:27 IV Dye Shock onabotulinumtoxinA Allergy Severe Anaphylatic Verified 05/02/18 08:27 [From Botox] Shock Penicillins Allergy Severe Anaphylatic Verified 05/02/18 08:27 Shock shellfish derived Allergy Severe Anaphylatic Verified 05/02/18 08:27 Shock Adhesive Tape Allergy Mild Itching Verified 05/02/18 08:27 chlorhexidine Allergy Mild Rash And Verified 05/02/18 08:27 Itching latex Allergy Mild Hives Verified 05/02/18 08:27 NSAIDS (Non-Steroidal Allergy Mild Hives Verified 05/02/18 08:27 Anti-Inflamma povidone-iodine Allergy Mild Itching Verified 05/02/18 08:27 fentanyl Allergy Hallucinati Verified 05/02/18 09:33 ons ENVIRONMENTAL/SEASONAL Allergy Mild ITCHY,WATERY Uncoded 03/17/18 00:47 HAYFEVER EYES, SNEEZE, CONGESTION PMH/Surg Hx/FS Hx/Imm Hx Endocrine/Hematology History: Reports: Hx Anticoagulant Therapy - plavix, Hx Anemia - possible Denies: Hx Diabetes, Hx Thyroid Disease Cardiovascular History: Reports: Hx Angina - has prn nitro, Hx Coronary Artery Disease - 2 stents- RCA stent 2006, LAD stent 2007, Hx Deep Vein Thrombosis, Hx Embolism, Hx Hypercholesterolemia, Hx Hypertension, Hx Myocardial Infarction, Hx Syncope, Other Cardiovascular Problems/Disorders - cardiac cath Denies: Hx Congestive Heart Failure, Hx Pacemaker/ICD, Hx Valvular Heart Disease Respiratory History: Reports: Hx Chronic Obstructive Pulmonary Disease (COPD) - Pt denies though providers have diagnosed it, Hx Pneumonia, Hx Pulmonary Embolism - and DVT 30 yrs ago, Hx Seasonal Allergies, Other Respiratory Problems /Disorders - SMOKER Denies: Hx Asthma, Hx Sleep Apnea GI History: Reports: Hx Diverticulosis, Hx Gastroesophageal Reflux Disease, Hx Hiatal Hernia - 3 surgeries, Other GI Disorders - achalasia, Fernández's esophagus , has a JG tube Denies: Hx Ulcer History: Reports: Hx Kidney Infection, Hx Kidney Stones - LAST 12/2015- NO PROBLEMS SINCE PER PATIENT Denies: Hx Dialysis, Hx Renal Disease, Other Problems/Disorders Musculoskeletal History: Reports: Hx Arthritis, Hx Back Problems, Other Musculoskeletal History - L1 fx Denies: Hx Osteoporosis Sensory History: Reports: Hx Cataracts - maryuri Denies: Hx Contacts or Glasses, Hx Hearing Aid Opthamlomology History: Reports: Hx Cataracts - maryuri Denies: Hx Contacts or Glasses Neurological History: Reports: Hx Spinal Cord Injury - L1, Hx Transient Ischemic Attacks (TIA), Other Neuro Impairments/Disorders - POSSIBLE SMALL TIA'S - 3 yrs ago Psychiatric History: Reports: Hx Anxiety Denies: Hx Panic Disorder - Cancer History Cancer Type, Location and Year: RT BREAST CA, 2009 HAD A BILATERAL MASTECTOMY Hx Chemotherapy: No Hx Radiation Therapy: No - Surgical History Surgery Procedure, Year, and Place: RT LUMPECTOMY 02/2010, BILATERAL MASTECTOMY ,. 2006& 2008 CARDIAC STENT AT [facility] IN [place],. LEFT KNEE SURGERY X10,. BILATERAL SHOULDER SURGERY,. ESPOHOGEAL SURGERY,1996, 2015. failed breast implant on left. PARTIAL HYSTERECTOMY, 1976. APPENDIX A CHILD,. CHEST TUBE, 1996. ESOPHAGEAL DILATION. NISSIN FUNDOLPICATION multiple. total left knee replacement 2016. kidney stone surgery. left chest wound surgery 2010. Insertion Infusaport 02/2018 Hx Anesthesia Reactions: No - Immunization History Date of Tetanus Vaccine: up to date Date of Influenza Vaccine: 06/2016 Immunizations Up to Date: Yes Infectious Disease History: No Infectious Disease History: Reports: Hx Clostridium Difficile Denies: Hx Hepatitis, Hx Human Immunodeficiency Virus (HIV), Hx of Known/ Suspected MRSA, Hx Shingles, Hx Tuberculosis, Hx Known/Suspected VRE, Hx Known/ Suspected VRSA, History Other Infectious Disease, Traveled Outside the [place] in Last 30 Days - Family History Known Family History: Positive: Cardiac Disease - Father, 2 brothers - SD. Mother - AFIB, Hypertension, Diabetes - Social History Alcohol Use: Occasionally Hx Substance Use: No Substance Use Type: Reports: None Substance Use Comment - Amount & Last Used: prescribed Hx Tobacco Use: Yes Smoking Status (MU): Light Every Day Tobacco Smoker Type: Cigarettes Amount Used/How Often: 1-3 cigarettes/day Length of Time of Smoking/Using Tobacco: 40+ YEARS Have You Smoked in the Last Year: No Review of Systems Positive: Chest Pain Positive: Abdominal Pain. Negative: Vomiting All Other Systems Reviewed And Are Negative: Yes Physical Exam - Summary Physical Exam Summary: Appearance: Well appearing, no pain distress Skin: warm, dry, reflects adequate perfusion Head/face: normal Eyes: EOMI, SHAY ENT: normal Neck: supple, non-tender Respiratory: CTA, breath sounds present Cardiovascular: RRR, pulses symmetrical Abdomen: diffuse tenderness in abdomen, soft Bowel: present Musculoskeletal: normal, strength/ROM intact Neuro: normal, sensory motor intact, A&Ox3 Triage Information Reviewed: Yes Vital Signs On Initial Exam: Initial Vitals Temp Pulse Resp BP Pulse Ox 98.8 F 82 12 222/159 96 05/18/18 22:50 05/18/18 22:50 05/18/18 22:50 05/18/18 22:50 05/18/18 22:50 Vital Signs Reviewed: Yes Diagnostics - Vital Signs Vital Signs Temp Pulse Resp BP Pulse Ox 05/19/18 00:36 16 05/18/18 22:50 98.8 F 82 12 222/159 96 - Laboratory Lab Results: Lab Results 05/18/18 05/18/18 05/18/18 Range/Units 23:30 23:30 23:30 WBC 10.4 (3.5-10.8) 10^3/ul RBC 5.04 (4.00-5.40) 10^6/ul Hgb 15.0 (12.0-16.0) g/dl Hct 44 (35-47) % MCV 87 (80-97) fL MCH 30 (27-31) pg MCHC 34 (31-36) g/dl RDW 13 (10.5-15) % Plt Count 326 (150-450) 10^3/ul MPV 7.8 (7.4-10.4) um3 Neut % (Auto) 81.2 (38-83) % Lymph % (Auto) 12.5 L (25-47) % [place] % (Auto) 5.5 (0-7) % Eos % (Auto) 0.2 (0-6) % Baso % (Auto) 0.6 (0-2) % Absolute Neuts (auto) 8.4 H (1.5-7.7) 10^3/ul Absolute Lymphs (auto) 1.3 (1.0-4.8) 10^3/ul Absolute Monos (auto) 0.6 (0-0.8) 10^3/ul Absolute Eos (auto) 0 (0-0.6) 10^3/ul Absolute Basos (auto) 0.1 (0-0.2) 10^3/ul Absolute Nucleated RBC 0 10^3/ul Nucleated RBC % 0 INR (Anticoag Therapy) 0.91 (0.77-1.02) APTT 37.1 H (26.0-36.3) seconds Sodium 134 L (135-145) mmol/L Potassium 3.3 L (3.5-5.0) mmol/L Chloride 100 L (101-111) mmol/L Carbon Dioxide 21 L (22-32) mmol/L Anion Gap 13 H (2-11) mmol/L BUN 19 (6-24) mg/dL Creatinine 0.66 (0.51-0.95) mg/dL Est GFR ( Amer) 109.4 (>60) Est GFR (Non-Af Amer) 90.5 (>60) BUN/Creatinine Ratio 28.8 H (8-20) Glucose 140 H (70-100) mg/dL Lactic Acid (0.5-2.0) mmol/L Calcium 9.6 (8.6-10.3) mg/dL Total Bilirubin 0.90 (0.2-1.0) mg/dL AST 20 (13-39) U/L ALT 12 (7-52) U/L Alkaline Phosphatase 61 (34-104) U/L Troponin I 0.01 (<0.04) ng/mL Total Protein 7.7 (6.4-8.9) g/dL Albumin 4.5 (3.2-5.2) g/dL Globulin 3.2 (2-4) g/dL Albumin/Globulin Ratio 1.4 (1-3) Prealbumin 24 (18-38) mg/dL Lipase 19 (11.0-82.0) U/L Urine Color Urine Appearance Urine pH (5-9) Ur Specific [place] (1.010-1.030) Urine Protein (Negative) Urine Ketones (Negative) Urine Blood (Negative) Urine Nitrate (Negative) Urine Bilirubin (Negative) Urine Urobilinogen (Negative) Ur Leukocyte Esterase (Negative) Urine WBC (Auto) (Absent) Urine RBC (Auto) (Absent) Ur Squamous Epith Cells (Absent) Urine Bacteria (Absent) Urine Glucose (Negative) 05/18/18 05/19/18 Range/Units 23:30 00:45 WBC (3.5-10.8) 10^3/ul RBC (4.00-5.40) 10^6/ul Hgb (12.0-16.0) g/dl Hct (35-47) % MCV (80-97) fL MCH (27-31) pg MCHC (31-36) g/dl RDW (10.5-15) % Plt Count (150-450) 10^3/ul MPV (7.4-10.4) um3 Neut % (Auto) (38-83) % Lymph % (Auto) (25-47) % [place] % (Auto) (0-7) % Eos % (Auto) (0-6) % Baso % (Auto) (0-2) % Absolute Neuts (auto) (1.5-7.7) 10^3/ul Absolute Lymphs (auto) (1.0-4.8) 10^3/ul Absolute Monos (auto) (0-0.8) 10^3/ul Absolute Eos (auto) (0-0.6) 10^3/ul Absolute Basos (auto) (0-0.2) 10^3/ul Absolute Nucleated RBC 10^3/ul Nucleated RBC % INR (Anticoag Therapy) (0.77-1.02) APTT (26.0-36.3) seconds Sodium (135-145) mmol/L Potassium (3.5-5.0) mmol/L Chloride (101-111) mmol/L Carbon Dioxide (22-32) mmol/L Anion Gap (2-11) mmol/L BUN (6-24) mg/dL Creatinine (0.51-0.95) mg/dL Est GFR ( Amer) (>60) Est GFR (Non-Af Amer) (>60) BUN/Creatinine Ratio (8-20) Glucose (70-100) mg/dL Lactic Acid 1.5 (0.5-2.0) mmol/L Calcium (8.6-10.3) mg/dL Total Bilirubin (0.2-1.0) mg/dL AST (13-39) U/L ALT (7-52) U/L Alkaline Phosphatase (34-104) U/L Troponin I (<0.04) ng/mL Total Protein (6.4-8.9) g/dL Albumin (3.2-5.2) g/dL Globulin (2-4) g/dL Albumin/Globulin Ratio (1-3) Prealbumin (18-38) mg/dL Lipase (11.0-82.0) U/L Urine Color Yellow Urine Appearance Clear Urine pH 6.0 (5-9) Ur Specific [place] 1.013 (1.010-1.030) Urine Protein 2+(100 mg/dl) A (Negative) Urine Ketones Trace A (Negative) Urine Blood 2+ A (Negative) Urine Nitrate Negative (Negative) Urine Bilirubin Negative (Negative) Urine Urobilinogen Negative (Negative) Ur Leukocyte Esterase Trace A (Negative) Urine WBC (Auto) Trace(0-5/hpf) (Absent) Urine RBC (Auto) 3+(>10/hpf) A (Absent) Ur Squamous Epith Cells Present A (Absent) Urine Bacteria Absent (Absent) Urine Glucose 1+(50 mg/dl) A (Negative) Result Diagrams: 05/18/18 23:30 05/19/18 06:29 Lab Statement: Any lab studies that have been ordered have been reviewed, and results considered in the medical decision making process. - Radiology CXR Radiology Interpretation Completed By: ED Physician - Negative - CT CT Abd/Pel CT Interpretation Completed By: ED Physician - Negative - EKG 23:56 Cardiac Rate: NL - 60 bpm EKG Rhythm: Sinus Rhythm Chest Pain Course/Dx - Course Course Of Treatment: Pt is 63 y/o F who presents to ED c/o chest pain since last night. Notes abdominal pain and hasnt been able to eat since yesterday. Rates pain severity as 10/10. Denies vomiting. PMHx of myocardial infarction. Has not had a stress test recently. Physical exam revealed diffuse tenderness in abdomen. In ED course she was given fluids and Dilaudid. CXR was negative. CT Abd/Pel was negative. EKG taken at 23:56 was normal sinus rhythm at 60 bpm. Pt was diagnosed with chest pain, abdominal pain, and ruled out for SD. Spoke with Dr. Garcia who agreed [place] [facility] [place] - Chest Pain Differential Diagnosis/HQI/PQRI: Acute SD, ACS, CHF, Chest Wall, Lower Respiratory Infection - Diagnoses Provider Diagnoses: Chest pain, Abdominal pain, Ruled out for myocardial infarction - Provider Notifications Discussed Care Of Patient With: Nikki Garcia Time Discussed With Above Provider: 00:10 Instructed by Provider To: Admit As Inpatient - Critical Care Time Critical Care Time: 30-74 min Discharge - Sign-Out/Discharge Documenting (check all that apply): Patient Departure - Admit - Discharge Plan Condition: Fair Disposition: ADMITTED TO [facility] - Billing Disposition and Condition Condition: FAIR Disposition: Admitted to [facility]
--- NOTE | 2018-05-19 07:43 | RAD ---
INDICATION: Chest pain. COMPARISON: Comparison is made with a prior chest x-ray study from April 13, [address] of the chest from April 13, 2018. TECHNIQUE: A portable view of the chest was obtained. FINDINGS: There is a power port central venous catheter entering on the left side. The catheter tip is located in the right paratracheal region. The heart is within normal limits in size. The lungs are clear. There is a breast implant which projects over the right mid and lower lung field causing overlying increased density which is unchanged. No pleural effusion is seen. IMPRESSION: NO EVIDENCE FOR ACUTE FINDING. R0
--- NOTE | 2018-05-19 08:14 | RAD ---
CLINICAL HISTORY: Abdominal pain. Relevant surgical history includes appendectomy, partial hysterectomy COMPARISON: Most recent comparison CT is dated January 13, 2018 TECHNIQUE: Noncontrast CT examination of the abdomen and pelvis from the lung bases through the initial tuberosities. FINDINGS: VISUALIZED LUNG BASES: The visualized lung bases are grossly clear. There is no pleural effusion. ABDOMEN AND PELVIS: Evaluation of the solid organs and vasculature is limited without intravenous contrast. The liver, spleen, pancreas and adrenal glands are grossly normal in appearance. The gallbladder is normal. The kidneys are normal in appearance without focal mass, calcification or signs of hydronephrosis. Evaluation of the gastrointestinal tract is limited in the absence of oral contrast. A gastrojejunostomy tube appears to be appropriately position. The small and large bowel are not distended. There is no gross retroperitoneal or mesenteric lymphadenopathy. The pelvic viscera is normal in appearance. There is coarse calcification of the abdominal aorta extending inferiorly into the iliac arteries. Degenerative changes include multilevel loss of intervertebral disc height involving the lower thoracic and lumbar spine.There are no sinister bone lesions. IMPRESSION: 1. Evaluation is limited in the absence of IV or oral contrast. 2. There is no definite focal inflammatory change of the gastrointestinal tract that would account for the patient's clinical presentation. 3. Incidentally noted is advanced calcified atherosclerosis of the lower abdominal aorta extending into the iliac arteries. If the patient's abdominal pain is clinically characteristic of mesenteric ischemia, superior characterization of the mesenteric arteries could be made with mesenteric duplex sonography after the patient has been n.p.o. x8 hours.
[2018-05-19] MEDS ORDERED: Potassium Chloride LIQUID* 20 MEQ PACKET J TUBE SCH (09:00)
[2018-05-19] MEDS: Losartan TAB* 25 MG J TUBE SCH (09:27)
[2018-05-19] MEDS: Carisoprodol TAB* 350 MG PRN ×2 (09:27→19:25)
[2018-05-19] MEDS: Fluticasone NASAL SPRAY 50MCG* 16 gm SPRAY BTL BOTH NARES SCH (09:29)
[2018-05-19] MEDS: Clopidogrel TAB* 75 MG SCH (09:29)
[2018-05-19] MEDS: Ondansetron INJ* 2 MG/ML VIAL IV PRN ×3 (11:32→23:47)
[2018-05-19] MEDS: Sucralfate SUSP 1 GM/10 ml 10 ML UDC J TUBE SCH ×2 (11:33→21:23)
--- NOTE | 2018-05-19 11:52 | ECHO ---
Patient: RALF CA [facility] Rec#: [id number] : 1955 Date: 05/19/2018 Age: 63y Height: 170 cm / 66.9 in Weight: 45 kg / 99.2 lbs Sex: F BSA: 1.5 Room#: [facility] Admit Date#: 05/19/2018 Type: Inpatient Referring: Nikki Garcia Reading: Eugene Talley MD Leadlighter: Celena Moya,NEREYDACS,RDMS CC: Trish Combs MD CC: Rock Domínguez MD Transthoracic Echocardiogram Indication: CP BP: 221/107 HR: 60 Rhythm: NSR Findings History: CAD, PCI, HLD, TIA, HTN, HLD, COPD Technical Comments: The study quality is fair. The study is technically limited due to poor parasternal windows. Left Ventricle: The left ventricular chamber size is decreased. Moderate to severe concentric left ventricular hypertrophy is observed. Basal septal hypertrophy and systolic anterior motion of the mitral valve are observed creating an outflow tract gradient. There is normal left ventricular systolic function. The estimated ejection fraction is greater than 65%. There is an E to A reversal in the mitral valve flow pattern suggestive of diastolic dysfunction. Left Atrium: The left atrial chamber size is normal. Right Ventricle: The right ventricular chamber size and systolic function are within normal limits. The right ventricle wall thickness is moderately increased. Right Atrium: The right atrial cavity size is normal. Aortic Valve: The aortic valve is trileaflet. The aortic valve leaflets are mildly thickened. There is no evidence of aortic regurgitation. There is borderline aortic stenosis present. The mean gradient of the aortic valve is 10 mmHg. The aortic valve area, by peak velocities, is calculated at 2.2 cm2. Mitral Valve: The mitral valve leaflets appear normal. There is no evidence of mitral regurgitation. There is no evidence of mitral stenosis. Tricuspid Valve: The tricuspid valve leaflets are normal. There is trace to mild tricuspid regurgitation. Unable to estimate the right ventricular systolic pressure. Pulmonic Valve: There is no evidence of pulmonic valve thickening. There is a trace pulmonic regurgitation. Pericardium: There is no significant pericardial effusion. Aorta: The ascending aorta is not well visualized. The aortic arch is not well visualized. The aortic root is normal in size. Pulmonary Artery: The main pulmonary artery is not well visualized. Venous: The inferior vena cava is dilated. There is a greater than 50% respiratory change in the inferior vena cava dimension. Summary: There are no significant changes when compared to the previous study done on 06/01/15 Conclusions Moderate to severe concentric left ventricular hypertrophy is observed. Basal septal hypertrophy and systolic anterior motion of the mitral valve are observed creating an mild outflow tract gradient. The estimated ejection fraction is greater than 65%. There is normal left ventricular systolic function. There is normal left ventricular systolic function. The right ventricular chamber size and systolic function are within normal limits. The aortic valve leaflets are mildly thickened. There is borderline aortic stenosis present. There is no evidence of mitral regurgitation. There is trace to mild tricuspid regurgitation. Unable to estimate the right ventricular systolic pressure. There is no significant pericardial effusion. There are no significant changes when compared to the previous study done on 06/01/15 Measurements Name Value Normal Range RVIDd (AP) 2D 2.3 cm (0.9 - 2.6) RVDdMajor (2D) 3.3 cm (2.2 - 4.4) RAd ISD 4CH 4.7 cm (3.4 - 4.9) RA (A4C)W 4.5 cm (2.9 - 4.6) IVSd (2D) 1.7 cm (0.6 - 1) LVPWd (2D) 1.7 cm (0.6 - 1) LVIDd (2D) 3.5 cm (3.6 - 5.4) LVIDs (2D) 2.3 cm - LV FS (2D) 35 % (25 - 45) Aortic Annulus 2 cm (1.4 - 2.6) Ao root diameter (2D) 3.5 cm (2.1 - 3.5) LA dimension (AP) 2D 2.8 cm (2.3 - 3.8) LAd ISD 4CH 3.8 cm (2.9 - 5.3) LA ISD 4CH W 3.1 cm (2.5 - 4.5) Name Value Normal Range MV E-wave Vmax 0.5 m/sec - MV deceleration time 289 msec - MV A-wave Vmax 0.7 m/sec - MV E:A ratio 0.7 ratio - P. vein S-wave Vmax 0.5 m/sec - P. vein D-wave Vmax 0.3 m/sec - P. vein S:D Vmax ratio 1.6 ratio - P. vein A-wave duration 162 msec - LV septal e' Vmax 0.04 m/sec - LV lateral e' Vmax 0.05 m/sec - LV E:e' septal ratio 12.5 ratio - LV E:e' lateral ratio 10 ratio - Name Value Normal Range AV Vmax 2.3 m/sec - AV VTI 44 cm - AV peak gradient 22 mmHg - AV mean gradient 10 mmHg - LVOT diameter 2 cm - LVOT Vmax 1.6 m/sec - LVOT VTI 28 cm - LVOT peak gradient 10 mmHg - LVOT mean gradient 5 mmHg - DOI (VTI) 0.6 ratio - MILI (continuity Vmax) 2.2 cm2 - MILI (continuity VTI) 2 cm2 - Name Value Normal Range RAP 8 mmHg - IVC diameter 2.2 cm - Name Value Normal Range PV Vmax 0.8 m/sec - PV peak gradient 2.6 mmHg -
--- NOTE | 2018-05-19 12:20 | PN ---
Subjective Date of Service: 05/19/18 Interval History: Continues to c/o nausea, and abd pain. Patient reports that pain is unchanged in characteristics of chronic abd pain. reports that she is to be following up with GI in [place] after gastric emptying studies are completed. Denies Diarrhea. Denies chest pain or shortness of breath. Family History: Unchanged from Admission Social History: Unchanged from Admission Past Medical History: Unchanged from Admission Objective Active Medications: Acetaminophen (Tylenol Adult Liq*) 650 mg J TUBE Q4H PRN PRN Reason: FEVER/PAIN Al Hydrox/Mg Hydrox/Simethicone (Maalox Plus*) 30 ml J TUBE Q6H PRN PRN Reason: INDIGESTION Albuterol (Ventolin Hfa Inhaler*) 2 puff INH Q4H PRN PRN Reason: SOB/WHEEZING Carisoprodol (Soma Tab*) 350 mg .SEE ORDER Q8H PRN PRN Reason: PAIN Last Admin: 05/19/18 09:27 Dose: 350 mg Clopidogrel Bisulfate (Plavix Tab*) 75 mg .SEE ORDER DAILY [facility] Last Admin: 05/19/18 09:29 Dose: 75 mg Diphenhydramine HCl (Benadryl Liq*) 25 mg J TUBE Q6H PRN PRN Reason: ITCHING Docusate Sodium (Colace Liq*) 100 mg PO BID PRN PRN Reason: CONSTIPATION Fluticasone Propionate (Flonase Nasal [place] 50mcg*) 2 spray BOTH NARES DAILY [facility] Last Admin: 05/19/18 09:29 Dose: 2 spray Heparin Sodium (Porcine) (Heparin Vial(*)) 5,000 units SUBCUT Q8HR [facility] Last Admin: 05/19/18 06:54 Dose: 5,000 units Heparin Sodium (Porcine) (Heparin Flush Port (Ivad)) 5 ml FLUSH DAILY [facility]; Protocol Hydromorphone HCl (Dilaudid Inj*) 1 mg IV SLOW PU Q4H PRN PRN Reason: PAIN Last Admin: 05/19/18 11:32 Dose: 1 mg Losartan Potassium (Cozaar Tab*) 50 mg J TUBE DAILY [facility] Last Admin: 05/19/18 09:27 Dose: 50 mg Magnesium Hydroxide (Milk Of Magnesia Liq*) 30 ml J TUBE Q4H PRN PRN Reason: CONSTIPATION Melatonin (Melatonin) 3 mg PO BEDTIME PRN PRN Reason: SLEEP Metoclopramide HCl (Reglan Iv*) 5 mg IV Q6H PRN PRN Reason: NAUSEA/VOMITING Metoprolol Tartrate (Lopressor Tab*) 50 mg J TUBE Q12HR [facility] Last Admin: 05/19/18 11:59 Dose: 50 mg Nifedipine (Procardia Cap*) 20 mg J TUBE TID [facility] Last Admin: 05/19/18 09:31 Dose: Not Given Ondansetron HCl (Zofran Inj*) 4 mg IV Q4H PRN PRN Reason: NAUSEA/VOMITING Last Admin: 05/19/18 11:32 Dose: 4 mg Senna (Senokot Tab*) 1 tab J TUBE BID PRN PRN Reason: CONSTIPATION Sucralfate (Sucralfate Susp) 1 gm J TUBE BID@0700,2100 [facility] Last Admin: 05/19/18 11:33 Dose: 1 gm Vital Signs - 8 hr 05/19/18 05/19/18 05/19/18 04:48 06:54 07:34 Temperature 98 F 98.3 F Pulse Rate 67 60 Respiratory 16 16 16 Rate Blood Pressure 221/107 136/81 (mmHg) O2 Sat by Pulse 94 95 Oximetry 05/19/18 05/19/18 05/19/18 09:27 09:30 11:18 Temperature 98.8 F Pulse Rate 69 Respiratory 16 16 16 Rate Blood Pressure 155/84 (mmHg) O2 Sat by Pulse 97 Oximetry 05/19/18 11:32 Temperature Pulse Rate Respiratory 16 Rate Blood Pressure (mmHg) O2 Sat by Pulse Oximetry Oxygen Devices in Use Now: None Appearance: appears comfortable sitting in bed, no acute distress Ears/Nose/Mouth/Throat: NL Teeth, Lips, Gums, Mucous Membranes Moist Neck: NL Appearance and Movements; NL JVP, Trachea Midline Respiratory: Symmetrical Chest Expansion and Respiratory Effort, Clear to Auscultation Cardiovascular: NL Sounds; No Murmurs; No JVD, No Edema Abdominal: NL Sounds; No Tenderness; No Distention Skin: No Rash or Ulcers, No Nodules or Sclerosis Neurological: Alert and Oriented x 3 Nutrition: Taking PO's Result Diagrams: 05/18/18 23:30 05/20/18 05:58 Additional Lab and Data: Lab Results 05/18/18 05/18/18 05/18/18 Range/Units 23:30 23:30 23:30 WBC 10.4 (3.5-10.8) 10^3/ul RBC 5.04 (4.00-5.40) 10^6/ul Hgb 15.0 (12.0-16.0) g/dl Hct 44 (35-47) % MCV 87 (80-97) fL MCH 30 (27-31) pg MCHC 34 (31-36) g/dl RDW 13 (10.5-15) % Plt Count 326 (150-450) 10^3/ul MPV 7.8 (7.4-10.4) um3 Neut % (Auto) 81.2 (38-83) % Lymph % (Auto) 12.5 L (25-47) % [place] % (Auto) 5.5 (0-7) % Eos % (Auto) 0.2 (0-6) % Baso % (Auto) 0.6 (0-2) % Absolute Neuts (auto) 8.4 H (1.5-7.7) 10^3/ul Absolute Lymphs (auto) 1.3 (1.0-4.8) 10^3/ul Absolute Monos (auto) 0.6 (0-0.8) 10^3/ul Absolute Eos (auto) 0 (0-0.6) 10^3/ul Absolute Basos (auto) 0.1 (0-0.2) 10^3/ul Absolute Nucleated RBC 0 10^3/ul Nucleated RBC % 0 INR (Anticoag Therapy) 0.91 (0.77-1.02) APTT 37.1 H (26.0-36.3) seconds Sodium 134 L (135-145) mmol/L Potassium 3.3 L (3.5-5.0) mmol/L Chloride 100 L (101-111) mmol/L Carbon Dioxide 21 L (22-32) mmol/L Anion Gap 13 H (2-11) mmol/L BUN 19 (6-24) mg/dL Creatinine 0.66 (0.51-0.95) mg/dL Est GFR ( Amer) 109.4 (>60) Est GFR (Non-Af Amer) 90.5 (>60) BUN/Creatinine Ratio 28.8 H (8-20) Glucose 140 H (70-100) mg/dL Lactic Acid (0.5-2.0) mmol/L Calcium 9.6 (8.6-10.3) mg/dL Total Bilirubin 0.90 (0.2-1.0) mg/dL AST 20 (13-39) U/L ALT 12 (7-52) U/L Alkaline Phosphatase 61 (34-104) U/L Troponin I 0.01 (<0.04) ng/mL Total Protein 7.7 (6.4-8.9) g/dL Albumin 4.5 (3.2-5.2) g/dL Globulin 3.2 (2-4) g/dL Albumin/Globulin Ratio 1.4 (1-3) Prealbumin 24 (18-38) mg/dL Lipase 19 (11.0-82.0) U/L Urine Color Urine Appearance Urine pH (5-9) Ur Specific [place] (1.010-1.030) Urine Protein (Negative) Urine Ketones (Negative) Urine Blood (Negative) Urine Nitrate (Negative) Urine Bilirubin (Negative) Urine Urobilinogen (Negative) Ur Leukocyte Esterase (Negative) Urine WBC (Auto) (Absent) Urine RBC (Auto) (Absent) Ur Squamous Epith Cells (Absent) Urine Bacteria (Absent) Urine Glucose (Negative) 05/18/18 05/19/18 Range/Units 23:30 00:45 WBC (3.5-10.8) 10^3/ul RBC (4.00-5.40) 10^6/ul Hgb (12.0-16.0) g/dl Hct (35-47) % MCV (80-97) fL MCH (27-31) pg MCHC (31-36) g/dl RDW (10.5-15) % Plt Count (150-450) 10^3/ul MPV (7.4-10.4) um3 Neut % (Auto) (38-83) % Lymph % (Auto) (25-47) % [place] % (Auto) (0-7) % Eos % (Auto) (0-6) % Baso % (Auto) (0-2) % Absolute Neuts (auto) (1.5-7.7) 10^3/ul Absolute Lymphs (auto) (1.0-4.8) 10^3/ul Absolute Monos (auto) (0-0.8) 10^3/ul Absolute Eos (auto) (0-0.6) 10^3/ul Absolute Basos (auto) (0-0.2) 10^3/ul Absolute Nucleated RBC 10^3/ul Nucleated RBC % INR (Anticoag Therapy) (0.77-1.02) APTT (26.0-36.3) seconds Sodium (135-145) mmol/L Potassium (3.5-5.0) mmol/L Chloride (101-111) mmol/L Carbon Dioxide (22-32) mmol/L Anion Gap (2-11) mmol/L BUN (6-24) mg/dL Creatinine (0.51-0.95) mg/dL Est GFR ( Amer) (>60) Est GFR (Non-Af Amer) (>60) BUN/Creatinine Ratio (8-20) Glucose (70-100) mg/dL Lactic Acid 1.5 (0.5-2.0) mmol/L Calcium (8.6-10.3) mg/dL Total Bilirubin (0.2-1.0) mg/dL AST (13-39) U/L ALT (7-52) U/L Alkaline Phosphatase (34-104) U/L Troponin I (<0.04) ng/mL Total Protein (6.4-8.9) g/dL Albumin (3.2-5.2) g/dL Globulin (2-4) g/dL Albumin/Globulin Ratio (1-3) Prealbumin (18-38) mg/dL Lipase (11.0-82.0) U/L Urine Color Yellow Urine Appearance Clear Urine pH 6.0 (5-9) Ur Specific [place] 1.013 (1.010-1.030) Urine Protein 2+(100 mg/dl) A (Negative) Urine Ketones Trace A (Negative) Urine Blood 2+ A (Negative) Urine Nitrate Negative (Negative) Urine Bilirubin Negative (Negative) Urine Urobilinogen Negative (Negative) Ur Leukocyte Esterase Trace A (Negative) Urine WBC (Auto) Trace(0-5/hpf) (Absent) Urine RBC (Auto) 3+(>10/hpf) A (Absent) Ur Squamous Epith Cells Present A (Absent) Urine Bacteria Absent (Absent) Urine Glucose 1+(50 mg/dl) A (Negative) Assess/Plan/Problems-Billing Assessment: Ms. Prasad is a 63 y.o - Patient Problems (1) Abdominal pain Current Visit: No Status: Acute Code(s): R10.9 - UNSPECIFIED ABDOMINAL PAIN SNOMED Code(s): 80904942 Comment: - Abd/chest pain- suspect this is related to her achalasia, CT negative for obstruction Will get an ultrasound of the mesentric arteries - continue pain managment alternating Morphine and dilaudid as patient takes Morphine Er Q8H and Morphine suspension Q3H for pain managment at home. (2) COPD (chronic obstructive pulmonary disease) Current Visit: No Status: Chronic Code(s): J44.9 - CHRONIC OBSTRUCTIVE PULMONARY DISEASE, UNSPECIFIED SNOMED Code(s): 65023267 Comment: - No evidence of acute exacerbation. - Continue PRN albuterol. (3) CAD (coronary artery disease) Current Visit: No Status: Chronic Code(s): I25.10 - ATHSCL HEART DISEASE OF [place] CORONARY ARTERY W/O ANG PCTRS SNOMED Code(s): 31927842 Comment: - Troponins negative - Continue clopidogrel, metoprolol, statin. (4) DVT prophylaxis Current Visit: No Status: Acute Onset Date: 01/19/15 Code(s): CQV5851 - SNOMED Code(s): 691771372 Comment: - Heparin SQ. (5) Full code status Current Visit: No Status: Acute Onset Date: 01/19/15 Code(s): Z78.9 - OTHER SPECIFIED HEALTH STATUS SNOMED Code(s): 992413278 Comment: Status and Disposition: inpatient
[2018-05-19] MEDS: Metoclopramide IV* 5 MG/ML 2 ML VIAL IV PRN ×2 (14:23→19:27)
[2018-05-19] MEDS ORDERED: HYDROmorphone INJ* 0.5 MG/0.5 ML SYRINGE IV SLOW PU PRN (17:40)
[2018-05-19] MEDS: Morphine TAB Extended Release (*) 30 MG TAB.ER PO SCH (18:51)
[2018-05-19] MEDS: Famotidine SUSP* 40 MG/5 ML ORAL.SYRIN J TUBE SCH (19:25)
[2018-05-19] MEDS ORDERED: Morphine TAB Extended Release (*) 30 MG TAB.ER PO SCH (21:00)
[2018-05-20] MEDS: Metoclopramide IV* 5 MG/ML 2 ML VIAL IV PRN ×2 (03:00→15:49)
[2018-05-20] MEDS: Morphine TAB Extended Release (*) 30 MG TAB.ER PO SCH ×3 (03:00→18:14)
[2018-05-20] MEDS: Carisoprodol TAB* 350 MG PRN ×3 (03:01→20:17)
[2018-05-20] MEDS: HYDROmorphone INJ* 0.5 MG/0.5 ML SYRINGE IV SLOW PU PRN ×5 (04:44→22:44)
[2018-05-20] MEDS: Heparin VIAL(*) 5000 UNITS/ML VIAL (FIVE THOUSAND) SUBCUT SCH ×3 (05:35→22:43)
[2018-05-20] MEDS: Sucralfate SUSP 1 GM/10 ml 10 ML UDC J TUBE SCH ×2 (05:36→20:18)
[2018-05-20 06:26] LABS: EGFR Non-African American 54.7 (>60)
[2018-05-20] MEDS: Ondansetron INJ* 2 MG/ML VIAL IV PRN ×3 (08:58→20:13)
[2018-05-20] MEDS: Fluticasone NASAL SPRAY 50MCG* 16 gm SPRAY BTL BOTH NARES SCH (09:38)
[2018-05-20] MEDS: Famotidine SUSP* 40 MG/5 ML ORAL.SYRIN J TUBE SCH (10:09)
[2018-05-20] MEDS: Clopidogrel TAB* 75 MG SCH (10:10)
[2018-05-20] MEDS: NIFEdipine CAP* 10 MG J TUBE SCH ×4 (10:10→21:09)
[2018-05-20] MEDS: Losartan TAB* 25 MG J TUBE SCH (10:10)
[2018-05-20] MEDS: Metoprolol Tartrate TAB* 50 mg J TUBE SCH ×3 (10:10→21:08)
[2018-05-20] MEDS ORDERED: NS 0.9% 1000 ML* 1,000 ML IV SCH (12:00)
--- NOTE | 2018-05-20 13:36 | RAD ---
INDICATION: Abdominal pain in a woman with evidence of vasculopathy on recent CT COMPARISON: CT abdomen pelvis without contrast dated May 19, 2018 TECHNIQUE: Davidson scale, color Doppler, and spectral analysis of the abdominal aorta and mesenteric arteries was performed. REPORT: Aortic velocities: Proximal: 53 cm/s Mid: 53 cm/s Distal: 54 cm/s Celiac axis velocities: Ostium: 69 cm/s The celiac trunk and superior mesenteric artery appear to share a common origin. Superior mesenteric artery velocities: Origin: 78 cm/s Proximal: 72 cm/s Distal: 82 cm/s There are ratio to the aorta measures 1.5. The superior mesenteric artery appears morphologically normal and adequately patent. Doppler waveforms: In the interrogated mesenteric arteries, Doppler waveforms are biphasic. IMPRESSION: There is no sonographic evidence of mesenteric arterial insufficiency.
--- NOTE | 2018-05-20 20:59 | PN ---
Subjective Date of Service: 05/20/18 Interval History: Continues to c/o nausea, and abd pain but states that it is improved today. Patient reports that pain is unchanged in characteristics of chronic abd pain. reports that she is to be following up with GI in [place] after gastric emptying studies are completed. Denies Diarrhea. Denies chest pain or shortness of breath. Family History: Unchanged from Admission Social History: Unchanged from Admission Past Medical History: Unchanged from Admission Objective Active Medications: Acetaminophen (Tylenol Adult Liq*) 650 mg J TUBE Q4H PRN PRN Reason: FEVER/PAIN Al Hydrox/Mg Hydrox/Simethicone (Maalox Plus*) 30 ml J TUBE Q6H PRN PRN Reason: INDIGESTION Albuterol (Ventolin Hfa Inhaler*) 2 puff INH Q4H PRN PRN Reason: SOB/WHEEZING Carisoprodol (Soma Tab*) 350 mg .SEE ORDER Q8H PRN PRN Reason: PAIN Last Admin: 05/20/18 20:17 Dose: 350 mg Clopidogrel Bisulfate (Plavix Tab*) 75 mg .SEE ORDER DAILY [facility] Last Admin: 05/20/18 10:10 Dose: 75 mg Diphenhydramine HCl (Benadryl Liq*) 25 mg J TUBE Q6H PRN PRN Reason: ITCHING Docusate Sodium (Colace Liq*) 100 mg PO BID PRN PRN Reason: CONSTIPATION Famotidine (Pepcid Susp*) 20 mg J TUBE DAILY [facility] Last Admin: 05/20/18 10:09 Dose: 20 mg Fluticasone Propionate (Flonase Nasal [place] 50mcg*) 2 spray BOTH NARES DAILY [facility] Last Admin: 05/20/18 09:38 Dose: 2 spray Heparin Sodium (Porcine) (Heparin Vial(*)) 5,000 units SUBCUT Q8HR [facility] Last Admin: 05/20/18 13:18 Dose: 5,000 units Heparin Sodium (Porcine) (Heparin Flush Port (Ivad)) 5 ml FLUSH DAILY [facility]; Protocol Last Admin: 05/20/18 11:03 Dose: Not Given Hydromorphone HCl (Dilaudid Inj*) 1 mg IV SLOW PU Q4H PRN PRN Reason: PAIN Last Admin: 05/20/18 18:15 Dose: 1 mg Sodium Chloride (Ns 0.9% 1000 Ml*) 1,000 mls @ 100 mls/hr IV PER RATE [facility] Stop: 05/20/18 21:59 Last Admin: 05/20/18 13:44 Dose: 100 mls/hr Losartan Potassium (Cozaar Tab*) 50 mg J TUBE DAILY [facility] Last Admin: 05/20/18 10:10 Dose: 50 mg Magnesium Hydroxide (Milk Of Magnesia Liq*) 30 ml J TUBE Q4H PRN PRN Reason: CONSTIPATION Melatonin (Melatonin) 3 mg PO BEDTIME PRN PRN Reason: SLEEP Metoclopramide HCl (Reglan Iv*) 5 mg IV Q6H PRN PRN Reason: NAUSEA/VOMITING Last Admin: 05/20/18 15:49 Dose: 5 mg Metoprolol Tartrate (Lopressor Tab*) 50 mg J TUBE Q12HR [facility] Morphine Sulfate (Ms Contin(*)) 30 mg PO Q8H [facility] Last Admin: 05/20/18 18:14 Dose: 30 mg Nifedipine (Procardia Cap*) 10 mg J TUBE TID [facility] Ondansetron HCl (Zofran Inj*) 4 mg IV Q4H PRN PRN Reason: NAUSEA/VOMITING Last Admin: 05/20/18 20:13 Dose: 4 mg Senna (Senokot Tab*) 1 tab J TUBE BID PRN PRN Reason: CONSTIPATION Sucralfate (Sucralfate Susp) 1 gm J TUBE BID@0700,2100 [facility] Last Admin: 05/20/18 20:18 Dose: 1 gm Vital Signs - 8 hr 05/20/18 05/20/18 05/20/18 13:32 14:54 15:34 Temperature 97.0 F Pulse Rate 52 Respiratory 20 14 12 Rate Blood Pressure 88/60 (mmHg) O2 Sat by Pulse 95 Oximetry 05/20/18 05/20/18 05/20/18 15:39 17:14 17:52 Temperature Pulse Rate 51 Respiratory Rate Blood Pressure 93/60 99/62 116/73 (mmHg) O2 Sat by Pulse Oximetry 05/20/18 05/20/18 05/20/18 18:14 18:15 19:54 Temperature Pulse Rate Respiratory 20 20 18 Rate Blood Pressure (mmHg) O2 Sat by Pulse Oximetry 05/20/18 05/20/18 20:17 20:18 Temperature Pulse Rate Respiratory 18 18 Rate Blood Pressure (mmHg) O2 Sat by Pulse Oximetry Oxygen Devices in Use Now: None Appearance: frail female , sitting in bed, no acute distress Eyes: No Scleral Icterus Ears/Nose/Mouth/Throat: Clear Oropharnyx, Mucous Membranes Moist Neck: NL Appearance and Movements; NL JVP, Trachea Midline Respiratory: Symmetrical Chest Expansion and Respiratory Effort, Clear to Auscultation Cardiovascular: NL Sounds; No Murmurs; No JVD, RRR, No Edema Abdominal: NL Sounds; No Tenderness; No Distention, - - mild tenderness with palpation , NL sounds , Flat Extremities: No Edema, No Clubbing, Cyanosis Skin: No Rash or Ulcers Neurological: Alert and Oriented x 3 Nutrition: Taking PO's Result Diagrams: 05/18/18 23:30 05/20/18 05:58 Additional Lab and Data: Lab Results 05/18/18 05/18/18 05/18/18 Range/Units 23:30 23:30 23:30 WBC 10.4 (3.5-10.8) 10^3/ul RBC 5.04 (4.00-5.40) 10^6/ul Hgb 15.0 (12.0-16.0) g/dl Hct 44 (35-47) % MCV 87 (80-97) fL MCH 30 (27-31) pg MCHC 34 (31-36) g/dl RDW 13 (10.5-15) % Plt Count 326 (150-450) 10^3/ul MPV 7.8 (7.4-10.4) um3 Neut % (Auto) 81.2 (38-83) % Lymph % (Auto) 12.5 L (25-47) % [place] % (Auto) 5.5 (0-7) % Eos % (Auto) 0.2 (0-6) % Baso % (Auto) 0.6 (0-2) % Absolute Neuts (auto) 8.4 H (1.5-7.7) 10^3/ul Absolute Lymphs (auto) 1.3 (1.0-4.8) 10^3/ul Absolute Monos (auto) 0.6 (0-0.8) 10^3/ul Absolute Eos (auto) 0 (0-0.6) 10^3/ul Absolute Basos (auto) 0.1 (0-0.2) 10^3/ul Absolute Nucleated RBC 0 10^3/ul Nucleated RBC % 0 INR (Anticoag Therapy) 0.91 (0.77-1.02) APTT 37.1 H (26.0-36.3) seconds Sodium 134 L (135-145) mmol/L Potassium 3.3 L (3.5-5.0) mmol/L Chloride 100 L (101-111) mmol/L Carbon Dioxide 21 L (22-32) mmol/L Anion Gap 13 H (2-11) mmol/L BUN 19 (6-24) mg/dL Creatinine 0.66 (0.51-0.95) mg/dL Est GFR ( Amer) 109.4 (>60) Est GFR (Non-Af Amer) 90.5 (>60) BUN/Creatinine Ratio 28.8 H (8-20) Glucose 140 H (70-100) mg/dL Lactic Acid (0.5-2.0) mmol/L Calcium 9.6 (8.6-10.3) mg/dL Total Bilirubin 0.90 (0.2-1.0) mg/dL AST 20 (13-39) U/L ALT 12 (7-52) U/L Alkaline Phosphatase 61 (34-104) U/L Troponin I 0.01 (<0.04) ng/mL Total Protein 7.7 (6.4-8.9) g/dL Albumin 4.5 (3.2-5.2) g/dL Globulin 3.2 (2-4) g/dL Albumin/Globulin Ratio 1.4 (1-3) Prealbumin 24 (18-38) mg/dL Lipase 19 (11.0-82.0) U/L Urine Color Urine Appearance Urine pH (5-9) Ur Specific [place] (1.010-1.030) Urine Protein (Negative) Urine Ketones (Negative) Urine Blood (Negative) Urine Nitrate (Negative) Urine Bilirubin (Negative) Urine Urobilinogen (Negative) Ur Leukocyte Esterase (Negative) Urine WBC (Auto) (Absent) Urine RBC (Auto) (Absent) Ur Squamous Epith Cells (Absent) Urine Bacteria (Absent) Urine Glucose (Negative) 05/18/18 05/19/18 Range/Units 23:30 00:45 WBC (3.5-10.8) 10^3/ul RBC (4.00-5.40) 10^6/ul Hgb (12.0-16.0) g/dl Hct (35-47) % MCV (80-97) fL MCH (27-31) pg MCHC (31-36) g/dl RDW (10.5-15) % Plt Count (150-450) 10^3/ul MPV (7.4-10.4) um3 Neut % (Auto) (38-83) % Lymph % (Auto) (25-47) % [place] % (Auto) (0-7) % Eos % (Auto) (0-6) % Baso % (Auto) (0-2) % Absolute Neuts (auto) (1.5-7.7) 10^3/ul Absolute Lymphs (auto) (1.0-4.8) 10^3/ul Absolute Monos (auto) (0-0.8) 10^3/ul Absolute Eos (auto) (0-0.6) 10^3/ul Absolute Basos (auto) (0-0.2) 10^3/ul Absolute Nucleated RBC 10^3/ul Nucleated RBC % INR (Anticoag Therapy) (0.77-1.02) APTT (26.0-36.3) seconds Sodium (135-145) mmol/L Potassium (3.5-5.0) mmol/L Chloride (101-111) mmol/L Carbon Dioxide (22-32) mmol/L Anion Gap (2-11) mmol/L BUN (6-24) mg/dL Creatinine (0.51-0.95) mg/dL Est GFR ( Amer) (>60) Est GFR (Non-Af Amer) (>60) BUN/Creatinine Ratio (8-20) Glucose (70-100) mg/dL Lactic Acid 1.5 (0.5-2.0) mmol/L Calcium (8.6-10.3) mg/dL Total Bilirubin (0.2-1.0) mg/dL AST (13-39) U/L ALT (7-52) U/L Alkaline Phosphatase (34-104) U/L Troponin I (<0.04) ng/mL Total Protein (6.4-8.9) g/dL Albumin (3.2-5.2) g/dL Globulin (2-4) g/dL Albumin/Globulin Ratio (1-3) Prealbumin (18-38) mg/dL Lipase (11.0-82.0) U/L Urine Color Yellow Urine Appearance Clear Urine pH 6.0 (5-9) Ur Specific [place] 1.013 (1.010-1.030) Urine Protein 2+(100 mg/dl) A (Negative) Urine Ketones Trace A (Negative) Urine Blood 2+ A (Negative) Urine Nitrate Negative (Negative) Urine Bilirubin Negative (Negative) Urine Urobilinogen Negative (Negative) Ur Leukocyte Esterase Trace A (Negative) Urine WBC (Auto) Trace(0-5/hpf) (Absent) Urine RBC (Auto) 3+(>10/hpf) A (Absent) Ur Squamous Epith Cells Present A (Absent) Urine Bacteria Absent (Absent) Urine Glucose 1+(50 mg/dl) A (Negative) Microbiology and Other Data: Microbiology 05/19/18 00:45 Urine Culture - Final Urine No Growth (<1,000 CFU/mL) Assess/Plan/Problems-Billing Assessment: Ms. Prasad is a 63 y.o - Patient Problems (1) Abdominal pain Current Visit: No Status: Acute Code(s): R10.9 - UNSPECIFIED ABDOMINAL PAIN SNOMED Code(s): 73180355 Comment: - Abd pain- suspect this is related to her achalasia, CT negative for obstruction- pain improved today ultrasound of the mesentric arteries- negative - continue pain managment alternating Morphine and dilaudid as patient takes Morphine Er Q8H and Morphine suspension Q3H for pain managment at home. - GI consulted (2) COPD (chronic obstructive pulmonary disease) Current Visit: No Status: Chronic Code(s): J44.9 - CHRONIC OBSTRUCTIVE PULMONARY DISEASE, UNSPECIFIED SNOMED Code(s): 05087175 Comment: - No evidence of acute exacerbation. - Continue PRN albuterol. (3) CAD (coronary artery disease) Current Visit: No Status: Chronic Code(s): I25.10 - ATHSCL HEART DISEASE OF [place] CORONARY ARTERY W/O ANG PCTRS SNOMED Code(s): 86260597 Comment: - Troponins negative - Continue clopidogrel, metoprolol, statin. (4) DVT prophylaxis Current Visit: No Status: Acute Onset Date: 01/19/15 Code(s): KZS5139 - SNOMED Code(s): 473858613 Comment: - Heparin SQ. (5) Full code status Current Visit: No Status: Acute Onset Date: 01/19/15 Code(s): Z78.9 - OTHER SPECIFIED HEALTH STATUS SNOMED Code(s): 806663686 Comment: Status and Disposition: inpatient
--- NOTE | 2018-05-20 22:50 | CONS ---
GASTROENTEROLOGY CONSULT: DATE: 05/20/18 CONSULTING PHYSICIANS: Yumiko Milan DO; Trish Combs MD REASON FOR CONSULTATION: Presentation with refractory nausea and vomiting and complaints of abdominal pain. HISTORY: This 63-year-old woman with history of achalasia surgery in 1994 and many subsequent surgeries is now, feeding tube dependent. She is being followed by a foregut surgeon, Dr Buckley at [facility]. She once again developed crescendo upper abd symptoms over about 24 hours. She states that over the last 6 weeks since her last hospital stay, she was for the most part stable at her usual activity and symptom level at home. This includes picking at meals, sometimes leaving meals that she prepares alone. Weekly, she gets an IV infusions through a left chest port. This IV fluid routine started [address] Combs. During the last admission, which ended 04/14/18, she had most of her medicines converted over to elixirs or ones that can go through her G-tube. Exceptions are her extended release morphine and Procardia. She gets 5 cans of Jevity 1.5 infused over 8 to 12 hours through her G-tube overnight. She did see Dr Combs in f/u and last week she was seen by her thoracic surgeon at [facility] where the patient reports resective surgery for the esophagus is being contemplated. She will be having a gastric emptying scan she says to further that w/u. PAST MEDICAL HISTORY: 1. Feeding tube dependency for nutrition. 2. Coronary artery disease, status post stents remotely. 3. Dyslipidemia. 4. COPD. 5. Hypertension. 6. Chronic pain. 7. History of breast cancer, status post left mastectomy in 2009. Although Fernández's esophagus is listed in many documents, it was not seen during upper endoscopy, 04/17/18. MEDICATIONS: Well delineated elsewhere, but include: 1. Famotidine 20 mg q.a.m. 2. Sucralfate suspension b.i.d. 3. B12 injections 1 mg monthly. 4. Plavix 75 mg. ALLERGIES: She has numerous allergies including FENTANYL and NSAIDS and BOTOX. SOCIAL HISTORY: She lives alone at home. She still smokes 2 to 3 cigarettes a day. Her healthcare proxy is her daughter. REVIEW OF SYSTEMS: No recent fever, falls, bleeding, seizure, skin rash. She was treated for UTI within the last month. No recent syncope. EXAM: Entering the room, she is sitting holding her dinner in front of her and appearing to take an interest in it. She is afebrile, pulse 52, blood pressure 99/62. Breath sounds are diminished equally. She is status post left mastectomy. Heart sounds are regular without a murmur. The abdomen shows an upper midline G- tube. Bowel sounds are active and normal. She is diffusely tender to minimal palpation, but the abdomen is soft before palpation. Rectal: Deferred. Extremities show no edema. LABS: On admission, 05/18/18, hemoglobin 15.0, hematocrit 44, MCV 87, white count 10.4, platelets 326. BUN 19, creatinine 0.66. Albumin 4.5, ALT 12, bilirubin 0.4, alkaline phosphatase 61. Remote labs included brain natriuretic peptide 67, TSH 0.57, both 02/11/18. HOSPITAL COURSE: She, on CT scan, had heavy calcification of lower abdominal vessels. Consequently, she had a mesenteric arterial study, the ultrasound and this was negative for ischemia. Chest x-ray showed no acute finding. IMPRESSION: This 63-year-old woman seems to recurrently develop nausea and vomiting, which she describes as heaving since she had had a fundoplication and not much material comes up. She does not have a lot of solid food intake and the majority of her feeding comes overnight as Jevity. There is thus no direct functional observation of symptoms typical of gastroparesis. At this time, there is no sign of any acute medically reversible cause for these symptomatic episodes. Her normal CBC and albumin of 4.5 are strongly against any chronic inflammatory state. Some behavioral or habit-related triggering activity related to her medications or some psychosocial stress is to be considered. She however lives alone, and it is difficult to get an independent ongoing view of her habits and activities that might trigger this. [id number]/[facility] #: [id number] [place]
[2018-05-21] MEDS: Ondansetron INJ* 2 MG/ML VIAL IV PRN ×6 (02:39→23:08)
[2018-05-21] MEDS: Morphine TAB Extended Release (*) 30 MG TAB.ER PO SCH ×3 (02:39→18:06)
[2018-05-21] MEDS: HYDROmorphone INJ* 0.5 MG/0.5 ML SYRINGE IV SLOW PU PRN ×7 (02:48→23:08)
[2018-05-21] MEDS: Heparin VIAL(*) 5000 UNITS/ML VIAL (FIVE THOUSAND) SUBCUT SCH ×3 (05:56→21:36)
[2018-05-21 06:24] LABS: Hematocrit 38 % (35-47); Hemoglobin 12.9 g/dl (12.0-16.0); Mean Corpuscular HGB Conc 34 g/dl (31-36); Mean Corpuscular Hemoglobin 30 pg (27-31); Mean Corpuscular Volume 86 fL (80-97); Platelet Count 281 10^3/ul (150-450); Red Blood Count 4.34 10^6/ul (4.00-5.40); Red Cell Distribution Width 13 % (10.5-15); White Blood Count 8.4 10^3/ul (3.5-10.8)
[2018-05-21] MEDS: Sucralfate SUSP 1 GM/10 ml 10 ML UDC J TUBE SCH ×2 (07:38→21:36)
[2018-05-21 08:20] LABS: EGFR Non-African American 68.5 (>60)
[2018-05-21] MEDS: Clopidogrel TAB* 75 MG SCH (09:27)
[2018-05-21] MEDS: Fluticasone NASAL SPRAY 50MCG* 16 gm SPRAY BTL BOTH NARES SCH (09:27)
[2018-05-21] MEDS: Famotidine SUSP* 40 MG/5 ML ORAL.SYRIN J TUBE SCH (09:27)
[2018-05-21] MEDS: Metoprolol Tartrate TAB* 50 mg J TUBE SCH ×2 (09:28→21:36)
[2018-05-21] MEDS: Losartan TAB* 25 MG J TUBE SCH (09:28)
[2018-05-21] MEDS: NIFEdipine CAP* 10 MG J TUBE SCH ×3 (09:28→21:36)
[2018-05-21] MEDS: Carisoprodol TAB* 350 MG PRN ×2 (09:53→18:06)
[2018-05-21] MEDS ORDERED: HYDROmorphone INJ* 0.5 MG/0.5 ML SYRINGE IV SLOW PU ONE (15:52)
--- NOTE | 2018-05-21 21:23 | PN ---
Subjective Date of Service: 05/21/18 Interval History: continues to c/o of abd pain, small amt of improvement. states that dry heaves have improved , continues to c/o nausea. denies chest pain or shortness of breath. Family History: Unchanged from Admission Social History: Unchanged from Admission Past Medical History: Unchanged from Admission Objective Active Medications: Acetaminophen (Tylenol Adult Liq*) 650 mg J TUBE Q4H PRN PRN Reason: FEVER/PAIN Al Hydrox/Mg Hydrox/Simethicone (Maalox Plus*) 30 ml J TUBE Q6H PRN PRN Reason: INDIGESTION Albuterol (Ventolin Hfa Inhaler*) 2 puff INH Q4H PRN PRN Reason: SOB/WHEEZING Carisoprodol (Soma Tab*) 350 mg .SEE ORDER Q8H PRN PRN Reason: PAIN Last Admin: 05/21/18 18:06 Dose: 350 mg Clopidogrel Bisulfate (Plavix Tab*) 75 mg .SEE ORDER DAILY [facility] Last Admin: 05/21/18 09:27 Dose: 75 mg Diphenhydramine HCl (Benadryl Liq*) 25 mg J TUBE Q6H PRN PRN Reason: ITCHING Docusate Sodium (Colace Liq*) 100 mg PO BID PRN PRN Reason: CONSTIPATION Famotidine (Pepcid Susp*) 20 mg J TUBE DAILY [facility] Last Admin: 05/21/18 09:27 Dose: 20 mg Fluticasone Propionate (Flonase Nasal [place] 50mcg*) 2 spray BOTH NARES DAILY [facility] Last Admin: 05/21/18 09:27 Dose: 2 spray Heparin Sodium (Porcine) (Heparin Vial(*)) 5,000 units SUBCUT Q8HR [facility] Last Admin: 05/21/18 13:53 Dose: 5,000 units Heparin Sodium (Porcine) (Heparin Flush Port (Ivad)) 5 ml FLUSH DAILY [facility]; Protocol Last Admin: 05/21/18 09:28 Dose: Not Given Hydromorphone HCl (Dilaudid Inj*) 1.5 mg IV SLOW PU Q4H PRN PRN Reason: PAIN Last Admin: 05/21/18 20:05 Dose: 1.5 mg Losartan Potassium (Cozaar Tab*) 50 mg J TUBE DAILY [facility] Last Admin: 05/21/18 09:28 Dose: 50 mg Magnesium Hydroxide (Milk Of Magnesia Liq*) 30 ml J TUBE Q4H PRN PRN Reason: CONSTIPATION Melatonin (Melatonin) 3 mg PO BEDTIME PRN PRN Reason: SLEEP Metoclopramide HCl (Reglan Iv*) 5 mg IV Q6H PRN PRN Reason: NAUSEA/VOMITING Last Admin: 05/20/18 15:49 Dose: 5 mg Metoprolol Tartrate (Lopressor Tab*) 50 mg J TUBE Q12HR [facility] Last Admin: 05/21/18 09:28 Dose: 50 mg Morphine Sulfate (Ms Contin(*)) 30 mg PO Q8H [facility] Last Admin: 05/21/18 18:06 Dose: 30 mg Nifedipine (Procardia Cap*) 10 mg J TUBE TID [facility] Last Admin: 05/21/18 13:56 Dose: Not Given Ondansetron HCl (Zofran Inj*) 4 mg IV Q4H PRN PRN Reason: NAUSEA/VOMITING Last Admin: 05/21/18 20:05 Dose: 4 mg Senna (Senokot Tab*) 1 tab J TUBE BID PRN PRN Reason: CONSTIPATION Sucralfate (Sucralfate Susp) 1 gm J TUBE BID@0700,2100 [facility] Last Admin: 05/21/18 07:38 Dose: 1 gm Vital Signs - 8 hr 05/21/18 05/21/18 05/21/18 13:50 15:55 15:58 Temperature Pulse Rate Respiratory 19 18 20 Rate Blood Pressure (mmHg) O2 Sat by Pulse Oximetry 05/21/18 05/21/18 05/21/18 16:02 16:42 17:55 Temperature 98.7 F Pulse Rate 56 66 Respiratory 16 18 Rate Blood Pressure 179/82 131/73 (mmHg) O2 Sat by Pulse 98 Oximetry 05/21/18 05/21/18 05/21/18 18:06 19:24 20:05 Temperature 98.0 F Pulse Rate 58 Respiratory 17 18 18 Rate Blood Pressure 129/61 (mmHg) O2 Sat by Pulse 95 Oximetry 05/21/18 05/21/18 20:53 20:55 Temperature Pulse Rate 63 Respiratory 18 Rate Blood Pressure 146/75 (mmHg) O2 Sat by Pulse 98 Oximetry Oxygen Devices in Use Now: None Appearance: appear mildly uncomfortable sitting in the bed. no acute distress Eyes: No Scleral Icterus Ears/Nose/Mouth/Throat: Clear Oropharnyx, Mucous Membranes Moist Neck: NL Appearance and Movements; NL JVP, Trachea Midline Respiratory: Symmetrical Chest Expansion and Respiratory Effort, Clear to Auscultation Cardiovascular: NL Sounds; No Murmurs; No JVD, No Edema Abdominal: - - NL sounds, No distention, mild tenderness to the mid abd Extremities: No Edema, No Clubbing, Cyanosis Skin: No Rash or Ulcers, No Nodules or Sclerosis Neurological: Alert and Oriented x 3 Nutrition: Taking PO's Result Diagrams: 05/21/18 06:07 05/21/18 06:07 Additional Lab and Data: Lab Results 05/18/18 05/18/18 05/18/18 Range/Units 23:30 23:30 23:30 WBC 10.4 (3.5-10.8) 10^3/ul RBC 5.04 (4.00-5.40) 10^6/ul Hgb 15.0 (12.0-16.0) g/dl Hct 44 (35-47) % MCV 87 (80-97) fL MCH 30 (27-31) pg MCHC 34 (31-36) g/dl RDW 13 (10.5-15) % Plt Count 326 (150-450) 10^3/ul MPV 7.8 (7.4-10.4) um3 Neut % (Auto) 81.2 (38-83) % Lymph % (Auto) 12.5 L (25-47) % [place] % (Auto) 5.5 (0-7) % Eos % (Auto) 0.2 (0-6) % Baso % (Auto) 0.6 (0-2) % Absolute Neuts (auto) 8.4 H (1.5-7.7) 10^3/ul Absolute Lymphs (auto) 1.3 (1.0-4.8) 10^3/ul Absolute Monos (auto) 0.6 (0-0.8) 10^3/ul Absolute Eos (auto) 0 (0-0.6) 10^3/ul Absolute Basos (auto) 0.1 (0-0.2) 10^3/ul Absolute Nucleated RBC 0 10^3/ul Nucleated RBC % 0 INR (Anticoag Therapy) 0.91 (0.77-1.02) APTT 37.1 H (26.0-36.3) seconds Sodium 134 L (135-145) mmol/L Potassium 3.3 L (3.5-5.0) mmol/L Chloride 100 L (101-111) mmol/L Carbon Dioxide 21 L (22-32) mmol/L Anion Gap 13 H (2-11) mmol/L BUN 19 (6-24) mg/dL Creatinine 0.66 (0.51-0.95) mg/dL Est GFR ( Amer) 109.4 (>60) Est GFR (Non-Af Amer) 90.5 (>60) BUN/Creatinine Ratio 28.8 H (8-20) Glucose 140 H (70-100) mg/dL Lactic Acid (0.5-2.0) mmol/L Calcium 9.6 (8.6-10.3) mg/dL Total Bilirubin 0.90 (0.2-1.0) mg/dL AST 20 (13-39) U/L ALT 12 (7-52) U/L Alkaline Phosphatase 61 (34-104) U/L Troponin I 0.01 (<0.04) ng/mL Total Protein 7.7 (6.4-8.9) g/dL Albumin 4.5 (3.2-5.2) g/dL Globulin 3.2 (2-4) g/dL Albumin/Globulin Ratio 1.4 (1-3) Prealbumin 24 (18-38) mg/dL Lipase 19 (11.0-82.0) U/L Urine Color Urine Appearance Urine pH (5-9) Ur Specific [place] (1.010-1.030) Urine Protein (Negative) Urine Ketones (Negative) Urine Blood (Negative) Urine Nitrate (Negative) Urine Bilirubin (Negative) Urine Urobilinogen (Negative) Ur Leukocyte Esterase (Negative) Urine WBC (Auto) (Absent) Urine RBC (Auto) (Absent) Ur Squamous Epith Cells (Absent) Urine Bacteria (Absent) Urine Glucose (Negative) 05/18/18 05/19/18 Range/Units 23:30 00:45 WBC (3.5-10.8) 10^3/ul RBC (4.00-5.40) 10^6/ul Hgb (12.0-16.0) g/dl Hct (35-47) % MCV (80-97) fL MCH (27-31) pg MCHC (31-36) g/dl RDW (10.5-15) % Plt Count (150-450) 10^3/ul MPV (7.4-10.4) um3 Neut % (Auto) (38-83) % Lymph % (Auto) (25-47) % [place] % (Auto) (0-7) % Eos % (Auto) (0-6) % Baso % (Auto) (0-2) % Absolute Neuts (auto) (1.5-7.7) 10^3/ul Absolute Lymphs (auto) (1.0-4.8) 10^3/ul Absolute Monos (auto) (0-0.8) 10^3/ul Absolute Eos (auto) (0-0.6) 10^3/ul Absolute Basos (auto) (0-0.2) 10^3/ul Absolute Nucleated RBC 10^3/ul Nucleated RBC % INR (Anticoag Therapy) (0.77-1.02) APTT (26.0-36.3) seconds Sodium (135-145) mmol/L Potassium (3.5-5.0) mmol/L Chloride (101-111) mmol/L Carbon Dioxide (22-32) mmol/L Anion Gap (2-11) mmol/L BUN (6-24) mg/dL Creatinine (0.51-0.95) mg/dL Est GFR ( Amer) (>60) Est GFR (Non-Af Amer) (>60) BUN/Creatinine Ratio (8-20) Glucose (70-100) mg/dL Lactic Acid 1.5 (0.5-2.0) mmol/L Calcium (8.6-10.3) mg/dL Total Bilirubin (0.2-1.0) mg/dL AST (13-39) U/L ALT (7-52) U/L Alkaline Phosphatase (34-104) U/L Troponin I (<0.04) ng/mL Total Protein (6.4-8.9) g/dL Albumin (3.2-5.2) g/dL Globulin (2-4) g/dL Albumin/Globulin Ratio (1-3) Prealbumin (18-38) mg/dL Lipase (11.0-82.0) U/L Urine Color Yellow Urine Appearance Clear Urine pH 6.0 (5-9) Ur Specific [place] 1.013 (1.010-1.030) Urine Protein 2+(100 mg/dl) A (Negative) Urine Ketones Trace A (Negative) Urine Blood 2+ A (Negative) Urine Nitrate Negative (Negative) Urine Bilirubin Negative (Negative) Urine Urobilinogen Negative (Negative) Ur Leukocyte Esterase Trace A (Negative) Urine WBC (Auto) Trace(0-5/hpf) (Absent) Urine RBC (Auto) 3+(>10/hpf) A (Absent) Ur Squamous Epith Cells Present A (Absent) Urine Bacteria Absent (Absent) Urine Glucose 1+(50 mg/dl) A (Negative) Microbiology and Other Data: Microbiology 05/19/18 00:45 Urine Culture - Final Urine No Growth (<1,000 CFU/mL) Assess/Plan/Problems-Billing Assessment: Ms. Prasad is a 63 y.o with a hx of end-stage achalasia with j tube placement, gastroparesis, CAD, SZ,COPD,HTN and bond's esophagus who presented to the emergency room with epigastric pain and dry heaves unable to control at home. - Patient Problems (1) Abdominal pain Current Visit: No Status: Acute Code(s): R10.9 - UNSPECIFIED ABDOMINAL PAIN SNOMED Code(s): 55033195 Comment: - Abd pain- suspect this is related to her achalasia, CT negative for obstruction- pain improved today ultrasound of the mesentric arteries- negative - continue pain managment alternating Morphine and dilaudid as patient takes Morphine Er Q8H and Morphine suspension Q3H for pain management at home. - GI consulted (2) COPD (chronic obstructive pulmonary disease) Current Visit: No Status: Chronic Code(s): J44.9 - CHRONIC OBSTRUCTIVE PULMONARY DISEASE, UNSPECIFIED SNOMED Code(s): 01554501 Comment: - No evidence of acute exacerbation. - Continue PRN albuterol. (3) CAD (coronary artery disease) Current Visit: No Status: Chronic Code(s): I25.10 - ATHSCL HEART DISEASE OF [place] CORONARY ARTERY W/O ANG PCTRS SNOMED Code(s): 26357073 Comment: - Troponins negative - Continue clopidogrel, metoprolol, statin. (4) DVT prophylaxis Current Visit: No Status: Acute Onset Date: 01/19/15 Code(s): OSA2381 - SNOMED Code(s): 998932019 Comment: - Heparin SQ. (5) Full code status Current Visit: No Status: Acute Onset Date: 01/19/15 Code(s): Z78.9 - OTHER SPECIFIED HEALTH STATUS SNOMED Code(s): 587773862 Comment: Status and Disposition: inpatient
[2018-05-22] MEDS: Morphine TAB Extended Release (*) 30 MG TAB.ER PO SCH ×2 (02:31→10:03)
[2018-05-22] MEDS: Ondansetron INJ* 2 MG/ML VIAL IV PRN ×3 (02:31→14:45)
[2018-05-22] MEDS: HYDROmorphone INJ* 0.5 MG/0.5 ML SYRINGE IV SLOW PU PRN ×4 (02:31→15:54)
[2018-05-22] MEDS: Heparin VIAL(*) 5000 UNITS/ML VIAL (FIVE THOUSAND) SUBCUT SCH ×2 (05:33→14:32)
[2018-05-22 06:41] LABS: EGFR Non-African American 84.5 (>60)
[2018-05-22] MEDS: Metoprolol Tartrate TAB* 50 mg J TUBE SCH (10:02)
[2018-05-22] MEDS: Famotidine SUSP* 40 MG/5 ML ORAL.SYRIN J TUBE SCH (10:03)
[2018-05-22] MEDS: Losartan TAB* 25 MG J TUBE SCH (10:03)
[2018-05-22] MEDS: Sucralfate SUSP 1 GM/10 ml 10 ML UDC J TUBE SCH (10:03)
[2018-05-22] MEDS: Clopidogrel TAB* 75 MG SCH (10:03)
[2018-05-22] MEDS: NIFEdipine CAP* 10 MG J TUBE SCH ×2 (10:03→14:32)
[2018-05-22] MEDS: Fluticasone NASAL SPRAY 50MCG* 16 gm SPRAY BTL BOTH NARES SCH (10:40)
[2018-05-22] MEDS: Carisoprodol TAB* 350 MG PRN (11:26)
[2018-05-22 11:44] VITALS: BP 164/78
--- NOTE | 2018-05-22 14:27 | PN ---
Progress Note - Progress Note Date of Service: 05/22/18 Note: Time spent on discharge 45 minutes, including discussion with patient, nurse, and CM, exam of patient, review of EMR and preparation of discharge documents.
--- NOTE | 2018-05-23 01:55 | DS ---
CC: Dr. Combs * DISCHARGE SUMMARY: DATE OF ADMISSION: DATE OF DISCHARGE: 05/22/18 HISTORY OF PRESENT ILLNESS/HOSPITAL COURSE: This 63-year-old woman presented with abdominal pain and nausea. She has a long history of end-stage achalasia. She has been sustained with a J-tube for several years. She is followed by Dr. Buckley in [place]. The rest of the history and physical exam is detailed in the admission note. This admission was very similar to previous admissions and it was quite clear that her pain was due to her achalasia. She was continued on her J-tube feedings. She was seen in consultation by Dr. Galindo. The major change during this hospital stay, she was treated with intravenous hydromorphone. At home, she is going to try the liquid morphine by the J-tube route rather than by mouth. She has been taking 40 mg of concentrated morphine solution by mouth every 3 hours. If this is not effective by J-tube, I would recommend increasing the dose to 60 mg of morphine every 3 hours by mouth. I offered fentanyl patch, but she said she had hallucinations and severe dysphoric reaction to fentanyl. FINAL DIAGNOSES: 1. Achalasia. 2. Chronic obstructive pulmonary disease. 3. Coronary artery disease. 4. Hypertension. DISCHARGE MEDICATIONS: 1. Vitamin B12 1000 mcg IM monthly. 2. Ondansetron ODT 4 mg every 8 hours p.r.n. 3. EpiPen 0.3 mg intramuscularly p.r.n. 4. Jevity 1.5 five cans per J-tube daily. 5. Albuterol inhaler RespiClick 2 puffs every 4 hours p.r.n. 6. Allergy eye drops 1 drop both eyes b.i.d. p.r.n. 7. Fluticasone nasal spray 2 sprays both nares b.i.d. 8. Carisoprodol 350 mg q.i.d. 9. Clopidogrel 75 mg daily. 10. Famotidine 20 mg by J-tube daily. 11. Metoprolol tartrate 50 mg by J-tube b.i.d. 12. Potassium chloride 20 mEq by J-tube daily. 13. Sucralfate 1 g by J-tube at 0700 and 2100. 14. Diphenhydramine liquid 25 mg by J-tube every 6 hours p.r.n. 15. Melatonin 3 mg h.s. p.r.n. 16. Losartan 50 mg by J-tube daily. 17. Nitroglycerin 0.4 mg sublingual every 5 minutes p.r.n. 18. Prochlorperazine 10 mg by J-tube b.i.d. p.r.n. 19. Morphine extended release 30 mg t.i.d. by mouth. 20. Acetaminophen 650 mg by J-tube b.i.d. p.r.n. 21. Simvastatin 40 mg h.s. 22. Nifedipine 10 mg by J-tube t.i.d. 23. Morphine oral concentrate 40 mg sublingual every 3 hours p.r.n. [id number]/[facility] #: [id number] [facility]
== END 2018-05-22 16:32 | disposition home health service (06) | DRG 243 ==
LOC: ED 22:43 → MEDTELE 05-19 02:05 → INTOOBSV 05-20 12:00 → OBSVTOIN 05-20 12:00
PROVIDERS: ADMIT Pediatrics; ATTEND Hospitalist
DX: K22.0 Achalasia of cardia (principal); H26.9 Unspecified cataract; K57.90 Diverticulosis of intestine, part unspecified, without perforation or abscess without bleeding; K21.9 Gastro-esophageal reflux disease without esophagitis; K22.70 Barrett's esophagus without dysplasia; I25.10 Atherosclerotic heart disease of native coronary artery without angina pectoris; F17.210 Nicotine dependence, cigarettes, uncomplicated; Z96.652 Presence of left artificial knee joint; F41.9 Anxiety disorder, unspecified; K31.84 Gastroparesis; E78.5 Hyperlipidemia, unspecified; J44.9 Chronic obstructive pulmonary disease, unspecified; Z79.02 Long term (current) use of antithrombotics/antiplatelets; I25.2 Old myocardial infarction; Z88.8 Allergy status to other drugs, medicaments and biological substances; Z86.718 Personal history of other venous thrombosis and embolism; Z86.711 Personal history of pulmonary embolism; Z87.01 Personal history of pneumonia (recurrent); Z87.442 Personal history of urinary calculi; Z85.3 Personal history of malignant neoplasm of breast; Z88.6 Allergy status to analgesic agent; Z91.030 Bee allergy status; Z91.041 Radiographic dye allergy status; Z91.040 Latex allergy status; Z88.0 Allergy status to penicillin; Z95.5 Presence of coronary angioplasty implant and graft; Z90.13 Acquired absence of bilateral breasts and nipples; Z86.73 Personal history of transient ischemic attack (TIA), and cerebral infarction without residual deficits; Z86.19 Personal history of other infectious and parasitic diseases; Z82.49 Family history of ischemic heart disease and other diseases of the circulatory system; Z83.3 Family history of diabetes mellitus
CPT/HCPCS: 36415; 71045; 74176; 80048; 80053; 81003; 81015; 82565; 83605; 83690; 84132; 84134; 84300; 84484; 84520; 85025; 85027; 85610; 85730; 86140; 87086; 90471; 93005; 93306; 93975; 94640; 96374; 96375; 96376; 99284; A9270-GY; G0009; G0378; J0780; J1170; J1642; J1644; J2405; J2765

== ENCOUNTER 2018-06-16 08:11 | Observation (INO) | payer OTHER ==
[2018-06-16] MEDS ORDERED: Nitroglycerin TAB 0.4 MG* 0.4 MG TAB SL ONE (08:46)
[2018-06-16] MEDS ORDERED: Metoclopramide IV* 5 MG/ML 2 ML VIAL IV ONE (09:02)
[2018-06-16] MEDS ORDERED: NS 0.9% 1000 ML* 1,000 ML IV ONE (09:02)
[2018-06-16] MEDS ORDERED: HYDROmorphone INJ* 2 MG/ML CARPUJECT SYRINGE IV SLOW PU ONE (09:02)
[2018-06-16 09:11] LABS: ABS Basophils 0 10^3/ul (0-0.2); ABS Eosinophils 0 10^3/ul (0-0.6); ABS Lymphocytes 0.6 10^3/ul (1.0-4.8); ABS Monocytes 0.3 10^3/ul (0-0.8); ABS Neutrophils 6.6 10^3/ul (1.5-7.7); ABS Nucleated RBC 0 10^3/ul; Eosinophil % 0 % (0-6); Hematocrit 41 % (35-47); Hemoglobin 14.4 g/dl (12.0-16.0); Lymphocyte % 8.1 % (25-47); Mean Corpuscular HGB Conc 35 g/dl (31-36); Mean Corpuscular Hemoglobin 30 pg (27-31); Mean Corpuscular Volume 86 fL (80-97); Mean Platelet Volume 7.9 um3 (7.4-10.4); Nucleated Red Blood Cells % 0; Platelet Count 280 10^3/ul (150-450); Red Blood Count 4.83 10^6/ul (4.00-5.40); Red Cell Distribution Width 13 % (10.5-15); White Blood Count 7.6 10^3/ul (3.5-10.8)
--- NOTE | 2018-06-16 09:13 | RAD ---
INDICATION: Chest pain. COMPARISON: Comparison is made to prior chest x-ray study from May 18, 2018. TECHNIQUE: A portable view of the chest was obtained. FINDINGS: Cardiac and mediastinal contours appear to be within normal limits. There is a power port central venous catheter entering on the left side. The catheter tip projects over the region of the superior vena cava. The lungs are hyperinflated and clear. No pleural effusion is seen. There is a breast implant which projects over the right hemithorax. IMPRESSION: NO EVIDENCE FOR ACUTE DISEASE.
[2018-06-16 09:22] LABS: INR 0.94 (0.77-1.02)
[2018-06-16 09:28] LABS: EGFR Non-African American 93.7 (>60)
--- NOTE | 2018-06-16 10:04 | ED ---
HPI Chest Pain - HPI Summary HPI Summary: The pt is a 63 y/o female presenting to [facility] c/o acute-on chronic mid CP worsened yesterday. This pain rated 10/10 in severity at its worst is usually present at baseline. She took morphine to no relief. She notes cough, heaving, vomiting and nausea but denies fever, chills and diarrhea. 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 - History of Current Complaint Chief Complaint: EDChestPainROMI Time Seen by Provider: 06/16/18 08:44 Hx Obtained From: Patient Onset/Duration: Still Present, Worse Since - 1 day ago Timing: Constant - [id number] Current Severity: Severe Pain Intensity: 10 Pain Scale Used: 0-10 Numeric Chest Pain Location: Mid Sternal Alleviating Factor(s): Nothing Associated Signs and Symptoms: Positive: Negative - Diarrhea, Chest Pain, Nausea , Cough, Other: - Positive: Heaving. Negative: Fever, Chills - Additional Pertinent History Primary Care Physician: [id number] - Allergy/Home Medications Allergies/Adverse Reactions: Allergies Allergy/AdvReac Type Severity Reaction Status Date / Time albumin colloid, human Allergy Severe Anaphylatic Verified 06/16/18 08:19 Shock bee venom protein (honey bee) Allergy Severe Anaphylatic Verified 06/16/18 08:19 Shock Iodinated Contrast- Oral and Allergy Severe Anaphylatic Verified 06/16/18 08:19 IV Dye Shock onabotulinumtoxinA Allergy Severe Anaphylatic Verified 06/16/18 08:19 [From Botox] Shock Penicillins Allergy Severe Anaphylatic Verified 06/16/18 08:19 Shock shellfish derived Allergy Severe Anaphylatic Verified 06/16/18 08:19 Shock Adhesive Tape Allergy Mild Itching Verified 06/16/18 08:19 chlorhexidine Allergy Mild Rash And Verified 06/16/18 08:19 Itching latex Allergy Mild Hives Verified 06/16/18 08:19 NSAIDS (Non-Steroidal Allergy Mild Hives Verified 06/16/18 08:19 Anti-Inflamma povidone-iodine Allergy Mild Itching Verified 05/02/18 08:27 fentanyl Allergy Hallucinati Verified 05/02/18 09:33 ons ENVIRONMENTAL/SEASONAL Allergy Mild ITCHY,WATERY Uncoded 03/17/18 00:47 HAYFEVER EYES, SNEEZE, CONGESTION Home Medications: Home Medications Morphine ORAL CONCENTRATE* 2.5 ml PO Q3H PRN 06/16/18 [History Confirmed ] PMH/Surg Hx/FS Hx/Imm Hx Previously Healthy: No Endocrine/Hematology History: Reports: Hx Anticoagulant Therapy - plavix, Hx Anemia - possible Denies: Hx Diabetes, Hx Thyroid Disease Cardiovascular History: Reports: Hx Angina - has prn nitro, Hx Coronary Artery Disease - 2 stents- RCA stent 2006, LAD stent 2007, Hx Deep Vein Thrombosis, Hx Embolism, Hx Hypercholesterolemia, Hx Hypertension, Hx Myocardial Infarction, Hx Syncope, Other Cardiovascular Problems/Disorders - cardiac cath Denies: Hx Congestive Heart Failure, Hx Pacemaker/ICD, Hx Valvular Heart Disease Respiratory History: Reports: Hx Chronic Obstructive Pulmonary Disease (COPD) - Pt denies though providers have diagnosed it, Hx Pneumonia, Hx Pulmonary Embolism - and DVT 30 yrs ago, Hx Seasonal Allergies, Other Respiratory Problems /Disorders - SMOKER Denies: Hx Asthma, Hx Sleep Apnea GI History: Reports: Hx Diverticulosis, Hx Gastroesophageal Reflux Disease, Hx Hiatal Hernia - 3 surgeries, Other GI Disorders - achalasia, Fernández's esophagus , has a JG tube Denies: Hx Ulcer History: Reports: Hx Kidney Infection, Hx Kidney Stones - LAST 12/2015- NO PROBLEMS SINCE PER PATIENT Denies: Hx Dialysis, Hx Renal Disease, Other Problems/Disorders Musculoskeletal History: Reports: Hx Arthritis, Hx Back Problems, Other Musculoskeletal History - L1 fx Denies: Hx Osteoporosis Sensory History: Reports: Hx Cataracts - maryuri Denies: Hx Contacts or Glasses, Hx Hearing Aid Opthamlomology History: Reports: Hx Cataracts - maryuri Denies: Hx Contacts or Glasses Neurological History: Reports: Hx Spinal Cord Injury - L1, Hx Transient Ischemic Attacks (TIA), Other Neuro Impairments/Disorders - POSSIBLE SMALL TIA'S - 3 yrs ago Psychiatric History: Reports: Hx Anxiety Denies: Hx Panic Disorder - Cancer History Cancer Type, Location and Year: RT BREAST CA, 2009 HAD A BILATERAL MASTECTOMY Hx Chemotherapy: No Hx Radiation Therapy: No - Surgical History Surgery Procedure, Year, and Place: RT LUMPECTOMY 02/2010, BILATERAL MASTECTOMY ,. 2006& 2007 CARDIAC STENT AT [facility] [place],. LEFT KNEE SURGERY X10,. BILATERAL SHOULDER SURGERY,. ESPOHOGEAL SURGERY,1996, 2015. failed breast implant on left. PARTIAL HYSTERECTOMY, 1976. APPENDIX A CHILD,. CHEST TUBE, 1996. ESOPHAGEAL DILATION. NISSIN FUNDOLPICATION multiple. total left knee replacement 2015. kidney stone surgery. left chest wound surgery 2010. Insertion Infusaport 02/2018 Hx Anesthesia Reactions: No - Immunization History Date of Tetanus Vaccine: up to date Date of Influenza Vaccine: 06/2016 Infectious Disease History: No Infectious Disease History: Reports: Hx Clostridium Difficile Denies: Hx Hepatitis, Hx Human Immunodeficiency Virus (HIV), Hx of Known/ Suspected MRSA, Hx Shingles, Hx Tuberculosis, Hx Known/Suspected VRE, Hx Known/ Suspected VRSA, History Other Infectious Disease, Traveled Outside the [place] in Last 30 Days - Family History Known Family History: Positive: Cardiac Disease - Father, 2 brothers - [place]. Mother - AFIB, Hypertension, Diabetes - Social History Occupation: Disabled Lives: With Family Alcohol Use: Occasionally Hx Substance Use: No Substance Use Type: Reports: None Substance Use Comment - Amount & Last Used: prescribed Hx Tobacco Use: Yes Smoking Status (MU): Light Every Day Tobacco Smoker Type: Cigarettes Amount Used/How Often: 1-3 cigarettes/day Length of Time of Smoking/Using Tobacco: 40+ YEARS Have You Smoked in the Last Year: No Review of Systems Negative: Fever, Chills Positive: Chest Pain Positive: Cough, Other - Positive: Heaving Positive: Nausea. Negative: Diarrhea All Other Systems Reviewed And Are Negative: Yes Physical Exam - Summary Physical Exam Summary: GENERAL: Patient is a well developed and nourished F who is lying comfortable in the stretcher. Patient is not in any acute respiratory distress. HEAD AND FACE: Normocephalic EYES: PERRLA, EOMI x 2. EARS: Hearing grossly intact. MOUTH: Oropharynx within normal limits. NECK: Supple, trachea is midline, no adenopathy, no JVD, no carotid bruit. CHEST: Symmetric, no tenderness at palpation LUNGS: Clear to auscultation bilaterally. No wheezing or crackles. CVS: Regular rate and rhythm, S1 and S2 present, no murmurs or gallops appreciated. ABDOMEN: J tube site is clean, dry and intact is on her mid L quadrant; Soft, non-tender. Bowel sounds are normal. No abdominal abnormal pulsations. EXTREMITIES: Full ROM in all major joints, no edema, no cyanosis or clubbing. NEURO: Alert and oriented x 3. No acute neurological deficits. Speech is normal and follows commands. SKIN: Dry and warm Triage Information Reviewed: Yes Vital Signs On Initial Exam: Initial Vitals Temp Pulse Resp BP Pulse Ox 98.2 F 86 18 122/74 96 06/16/18 08:14 06/16/18 08:14 06/16/18 08:14 06/16/18 08:14 06/16/18 08:14 Vital Signs Reviewed: Yes Diagnostics - Vital Signs Vital Signs Temp Pulse Resp BP Pulse Ox 06/16/18 08:14 98.2 F 86 18 122/74 96 - Laboratory Result Diagrams: 06/16/18 09:01 06/16/18 09:01 Lab Statement: Any lab studies that have been ordered have been reviewed, and results considered in the medical decision making process. - Radiology CXR Radiology Interpretation Completed By: Radiologist - IMPRESSION: NO EVIDENCE FOR ACUTE DISEASE. The ED physician has reviewed this radiology report. - EKG 08: 35 Cardiac Rate: NL - 70 bpm EKG Interpretation: L atrial enlargement and LVH Chest Pain Course/Dx - Course Course Of Treatment: A 63 year-old F presents to the ED with a CC of acute-on- chronic worsened yesterday. This pain rated 10/10 in severity at its worst is usually present at baseline. She took morphine to no relief. She notes cough, heaving, vomiting and nausea but denies fever, chills and diarrhea. A physical exam revealed a clean, dry and intact J tube site on her mid L quadrant. A CXR is negative for any acute disease. An EKG reveals normal sinus rhythm, L atrial enlargement and LVH. In the ED course, pt was given NTG, hydromorphone, N.s 0.9% , Metoclopramide, Potassium chloride, Aluminum hydroxide, Magnesium hydroxide, Lidocaine, Pantoprazole, and Ondansetron which improved the symptoms. On reevaluation, patient reports significant pain and so will be admitted for pain control. I discussed the case with the hospitalist who accepted patient for admission. - Diagnoses Provider Diagnoses: Chest pain Discharge - Sign-Out/Discharge Documenting (check all that apply): Patient Departure - Admitted - Discharge Plan Condition: Stable Disposition: ADMITTED TO [facility] - Billing Disposition and Condition Condition: STABLE Disposition: Admitted to [facility] - Attestation Statements Document Initiated by Scribe: Yes Documenting Scribe: Kathie Rivera Provider For Whom Kiarra is Documenting (Include Credential): Dr. Cyndie Mcintyre MD Scribe Attestation: IKathie , scribed for Dr. Cyndie Mcintyre MD on 06/16/18 at 1651. Scribe Documentation Reviewed: Yes Provider Attestation: The documentation as recorded by the scribeKathie accurately reflects the service I personally performed and the decisions made by me, Dr. Cyndie Mcintyre MD
[2018-06-16] MEDS ORDERED: Potassium Chlor TAB* 20 MEQ TAB.ER PO ONE (11:42)
[2018-06-16] MEDS ORDERED: Al Hydrox/Mg Hydrox/Simet LIQ* 30 ML UDC PO ONE (13:04)
[2018-06-16] MEDS ORDERED: Lidocaine 2% VISCOUS* 15 ML UDC PO ONE (13:04)
[2018-06-16] MEDS ORDERED: Ondansetron INJ* 2 MG/ML VIAL IV ONE (13:05)
[2018-06-16] MEDS ORDERED: Pantoprazole IV* 40 MG IV ONE (13:05)
[2018-06-16] MEDS ORDERED: KCL 20 MEQ/100 ML IVPREMIX* 20 MEQ/100 ML BAG IV ONE (14:06)
[2018-06-16] MEDS ORDERED: Acetaminophen ADULT LIQ* 650 MG/20.3 ML UDC J TUBE PRN (14:10)
[2018-06-16] MEDS ORDERED: Melatonin 3 MG TAB PO PRN (14:10)
[2018-06-16] MEDS ORDERED: Albuterol HFA INHALER* 8 gm MDI INH PRN (14:10)
[2018-06-16] MEDS ORDERED: Nitroglycerin TAB 0.4 MG* 0.4 MG TAB SL PRN (14:10)
[2018-06-16] MEDS ORDERED: NS 0.9% 1000 ML* 1,000 ML IV SCH (14:15)
[2018-06-16] MEDS ORDERED: Mouth Piece, Nicotine* 1 EACH CARTRIDGE INH PRN (14:59)
[2018-06-16] MEDS ORDERED: Nicotine Inhaler* 10 MG AMP INH PRN (14:59)
[2018-06-16] MEDS: HYDROmorphone INJ1* 1 MG/ML SYRINGE IV SLOW PU PRN ×4 (15:19→22:17)
[2018-06-16] MEDS: Ondansetron INJ* 2 MG/ML VIAL IV PRN ×2 (15:22→22:17)
[2018-06-16] MEDS ORDERED: Morphine TAB Extended Release (*) 30 MG TAB.ER PO ONE (15:52)
[2018-06-16] MEDS ORDERED: Potassium Chloride LIQUID* 20 MEQ PACKET J TUBE ONE (16:00)
[2018-06-16] MEDS ORDERED: Magnesium Sulfate IV* 3 GM in NS 0.9% 100 ML* 100 ML IVPB ONE (16:00)
[2018-06-16] MEDS: hydrALAZINE IV* 20 MG/ML VIAL IV SLOW PU PRN ×2 (16:25→22:17)
[2018-06-16] MEDS: Carisoprodol TAB* 350 MG SCH ×2 (17:07→22:18)
--- NOTE | 2018-06-16 17:07 | HP ---
CC: Dr. Trish Combs * HISTORY AND PHYSICAL: DATE OF ADMISSION: 06/16/18 PRIMARY CARE PROVIDER: Dr. Trish Combs ATTENDING PHYSICIAN: Dr. Rylee Pepper * (dictated by Liss Chandler NP) CHIEF COMPLAINT: Intractable nausea and abdominal pain. HISTORY OF PRESENT ILLNESS: Ms. Prasad is a 63-year-old female with past medical history significant for coronary artery disease, status post stenting, chronic end- stage achalasia with J-tube placement, history of DVT and PE, gastroparesis, hyperlipidemia, TIA, COPD, hypertension, Fernández's esophagus, and tobacco abuse, who presented to the emergency room with complaints of epigastric and abdominal discomfort in addition to intractable nausea with dry heaves. The patient states this started suddenly around 11 o'clock last night. Her home antiemetics and oral pain medications were not controlling her symptoms. She denies any recent fever or chills, chest pain, shortness of breath, or urinary symptoms. She states she is able to take small amounts by mouth, but uses her J-tube for feedings overnight. She follows with her thoracic surgeon, Dr. Buckley, whose reports talked about possibly removing her esophagus or her stomach. She denies constipation or diarrhea. She has not had recent changes in her medications. The patient denies any recent sick contacts. She recently on 06/09/18 underwent a gastric emptying studies showing prolonged gastric emptying. Due to her symptoms, she presented to the emergency room for further evaluation. While in the emergency room, the patient continued to have dry heaving. She received Dilaudid, GI cocktail, Reglan, sublingual Nitro, a liter of normal saline. She additionally received oral potassium, Protonix. She had labs that were significant for hypokalemia. She had 2 troponins of 0.01. She had an EKG with nonspecific ST changes, but no signs of acute ischemia. She had a chest x- ray without active disease. Due to her symptoms, the hospitalists were asked to evaluate the patient for admission. PAST MEDICAL HISTORY: 1. Chronic end-stage achalasia. 2. Gastroparesis. 3. DVT/PE. 4. Coronary artery disease. 5. Hyperlipidemia. 6. History of seizures. 7. TIA. 8. COPD. 9. Hypertension. 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 11. Tobacco abuse. 12. Diverticulitis. 13. GERD. 14. Right breast cancer. PAST SURGICAL HISTORY: 1. Status post cardiac stenting x2, one to the RCA and one to the LAD. 2. Status post hiatal hernia surgery x2. 3. Status post Godwin fundoplication. 4. Status post bilateral mastectomies. 5. Status post partial hysterectomy. 6. Status post left total knee replacement. 7. Status post bilateral shoulder surgery. 8. Status post esophageal surgery. 9. Status post appendectomy. 10. Status post esophageal dilations. 11. Status post Uzusdd-v-Olco placement. 12. Status post right breast lumpectomy. MEDICATIONS: Home medications include: 1. Jevity 1.5 calorie 5 cans via J-tube every evening. 2. Flonase nasal spray 2 sprays to both nares twice daily. 3. Albuterol inhaler 2 puffs inhalation every 4 hours as needed for wheezing. 4. Allergy eyedrops to both eyes twice daily as needed for allergy symptoms. 5. EpiPen 0.3 mg intramuscularly as needed for allergy symptoms. 6. Vitamin B12 1000 mcg intramuscularly monthly. 7. Zofran ODT 4 mg oral every 8 hours as needed for nausea. 8. Benadryl liquid 25 mg p.o. via J-tube every 6 hours as needed for itching. 9. Carafate suspension 1 g via J-tube twice daily with meals. 10. Simvastatin 40 mg oral via J-tube daily. 11. Compazine 10 mg via J-tube twice daily as needed for nausea. 12. Potassium chloride 20 mEq daily via J-tube. 13. Nitro 0.4 mg sublingual as needed for chest pain. 14. Nifedipine 10 mg via J-tube 3 times daily. 15. Metoprolol tartrate 50 mg via J-tube every 12 hours. 16. Melatonin 3 mg via J-tube every evening as needed for sleep. 17. Losartan 50 mg via J-tube daily. 18. Famotidine 20 mg via J-tube daily. 19. Plavix 75 mg via J-tube daily. 20. Soma 350 mg via J-tube 4 times daily as needed for muscle spasms. 21. Tylenol 650 mg via J-tube every 6 hours as needed for pain or fever. 22. Morphine extended release 30 mg via J-tube 3 times daily. 23. Morphine concentrate 100 mg/5 mL 2.5 mL every 3 hours as needed for pain. 24. The patient gets 1 liter of normal saline infusion weekly. ALLERGIES: ALBUMIN, BEE VENOM, CONTRAST, PENICILLIN, BOTOX, SHELLFISH, ADHESIVE TAPE, CHLORHEXIDINE, LATEX, NSAIDS, FENTANYL, and SEASONAL ALLERGIES. FAMILY HISTORY: The patient's father and 2 brothers have a history of IA. The patient's mother with a history of diabetes. There is no family history of cancer. SOCIAL HISTORY: The patient lives alone. She is a current smoker, smoking 1 to 3 cigarettes daily. She has a 50 pack-year smoking history. She occasionally has alcohol. Her daughter, Blanca Mcmahan will be her surrogate decision maker in the event she is unable to make decisions for herself. REVIEW OF SYSTEMS: I performed an 11-point review of systems. All the pertinent positives and negatives are mentioned in the history of present illness. The remaining review of systems are negative. PHYSICAL EXAMINATION GENERAL APPEARANCE: The patient is alert, pleasant, and appears to be in no acute distress. VITAL SIGNS: Temperature 98.2, heart rate 68, respiratory rate 18, O2 saturation 97% on room air, and blood pressure 122/74. HEENT: Normocephalic, atraumatic. Pupils are equal and reactive to light. Extraocular movements are intact. RESPIRATORY: There is no accessory muscle use. The lungs are clear to auscultation bilaterally. CARDIOVASCULAR: Regular rate and rhythm. S1 and S2 present. There are no murmurs, rubs or gallops heard. ABDOMEN: Soft, nontender, nondistended. There are bowel sounds present x4. She has a J-tube in place with no surrounding erythema or drainage. EXTREMITIES: There is no lower extremity edema. DP and PT pulses are 1+ and symmetric. MUSCULOSKELETAL: There is no clubbing or cyanosis noted. The patient exhibits good strength in all extremities. NEUROLOGIC: The patient is alert and oriented x4. Cranial nerves II through XII are grossly intact. PSYCHOLOGICAL: The patient is calm and cooperative. SKIN: There is no rash or other abnormalities seen. DIAGNOSTIC STUDIES/LAB DATA: Sodium 133, potassium 3.3, chloride 101, CO2 21, BUN 18, creatinine 0.64, glucose 139. White blood cell count 7.6, hemoglobin 14.4, hematocrit 41, and platelet count 280. Troponin 0.01 x2. Chest x-ray from today. Radiologist impression: No evidence for acute disease. EKG shows a normal sinus rhythm, a rate of 70. There is T-wave inversion in V2. This is similar to previous EKG from 05/18/18, at which time, she also had a T-wave inversion in leads 3 and V3, which has now since resolved. IMPRESSION: Ms. Prasad is a 63-year-old female with past medical history significant for end-stage achalasia, coronary artery disease, chronic obstructive pulmonary disease, hyperlipidemia, hypertension, Barrette's esophagus, who presented to the emergency room with epigastric pain and intractable nausea. ASSESSMENT/PLAN: 1. Intractable chest pain and nausea. The patient's preliminary workup is unremarkable. I suspect this is secondary to her end-stage achalasia and gastroparesis, and not a cardiac etiology. She has had 2 negative troponins. Her EKG has nonspecific T- wave changes, but no acute signs of ischemia. We will monitor her on telemetry. We will continue her on Zofran and Compazine as needed for nausea. If she continues to have significant amounts of nausea, we can consider Reglan as needed. Additionally, she will have IV Dilaudid for pain. We will hold her short-acting morphine from home while she is receiving the Dilaudid and continue her on long-acting morphine. She will be on a clear liquid diet. I will continue her tube feeds. I am going to hold off on a Gastroenterology consult at this time, but is she doesn't improve we can consider getting a consult. 2. Electrolyte abnormalities. The patient has hypokalemia, hypomagnesium. We will give her replacement today. Recheck labs tomorrow. 3. History of deep venous thrombosis prophylaxis, pulmonary embolism. The patient is not currently on anticoagulation. She will be placed on DVT prophylaxis while in the hospital. 4. Transient ischemic attack. The patient will be continued on a statin and Plavix. 5. Chronic obstructive pulmonary disease. There is no signs of an acute exacerbation at this time. She is not on routine inhalers. We will continue on albuterol as needed. 6. Hypertension. We will continue the patient on her home nifedipine, metoprolol, and losartan. 7. Tobacco use. The patient has been encouraged to stop smoking. She will have a nicotine inhaler available if needed. 8. Gastroesophageal reflux disease. The patient will be continued on her home sucralfate and famotidine. 9. Fluids, electrolytes, and nutrition. The patient will be on a clear liquid diet with Jevity 5 cans at night. 10. DVT prophylaxis. She is at high risk and will have subcu heparin and sequential compression devices. 11. Code status. Full code. 12. Disposition. Observation. TIME SPENT: Time for this admission was approximately 60 minutes, greater than half of that was spent with the patient, discussing medications, past medical history, and the events leading up to her arrival today and performing a physical examination. The case has been reviewed with the attending, Dr. Pepper, who agrees with the plan of care. Reviewed by CHASE ERICKSON-Nhan 06/18/18 1431 [id number]/[facility] #: [id number] MTDD
[2018-06-16] MEDS: NIFEdipine CAP* 10 MG J TUBE SCH (17:13)
[2018-06-16] MEDS ORDERED: Polyethylene Glycol 3350* 17 GM PACKET PO PRN (19:33)
[2018-06-16] MEDS: PROCHLORPERAZINE INJ 5 MG/ML 2 ML VIAL IV PRN (19:44)
[2018-06-16] MEDS: Heparin VIAL(*) 5000 UNITS/ML VIAL (FIVE THOUSAND) SUBCUT SCH (22:17)
[2018-06-16] MEDS: Docusate LIQ* 100 MG/10 ML UDC PO SCH (22:18)
[2018-06-16] MEDS: Sucralfate SUSP 1 GM/10 ml 10 ML UDC G TUBE SCH (22:18)
[2018-06-16] MEDS: Atorvastatin* 20 MG TAB J TUBE SCH (22:18)
[2018-06-16] MEDS: Morphine TAB Extended Release (*) 30 MG TAB.ER PO SCH (22:18)
[2018-06-16] MEDS: Fluticasone NASAL SPRAY 50MCG* 16 gm SPRAY BTL BOTH NARES SCH (22:19)
[2018-06-16] MEDS: Metoprolol Tartrate TAB* 50 mg J TUBE SCH (22:19)
[2018-06-17] MEDS: HYDROmorphone INJ1* 1 MG/ML SYRINGE IV SLOW PU PRN ×10 (04:15→23:42)
[2018-06-17] MEDS: Heparin VIAL(*) 5000 UNITS/ML VIAL (FIVE THOUSAND) SUBCUT SCH ×3 (04:15→21:37)
[2018-06-17] MEDS: Ondansetron INJ* 2 MG/ML VIAL IV PRN ×4 (04:15→23:42)
[2018-06-17 06:42] LABS: EGFR Non-African American 52.9 (>60)
[2018-06-17] MEDS: PROCHLORPERAZINE INJ 5 MG/ML 2 ML VIAL IV PRN ×3 (06:52→19:19)
[2018-06-17] MEDS ORDERED: NS 0.9% 1000 ML* 1,000 ML IV SCH (08:46)
--- NOTE | 2018-06-17 08:47 | PN ---
Subjective Date of Service: 06/17/18 Interval History: Patient reports she feels much better today but continues to have diffuse abdominal pain and nausea. She would like to advance her diet to regular so she can "pick at the food" - she is also asking to increase her night time jevity and see if she can tolerate it. She denies fever/chills. Feels a little dry in her mouth. Urinating frequently. Objective Active Medications: Acetaminophen (Tylenol Adult Liq*) 650 mg J TUBE BID PRN PRN Reason: PAIN Albuterol (Ventolin Hfa Inhaler*) 2 puff INH Q4H PRN PRN Reason: WHEEZING Atorvastatin Calcium (Lipitor*) 20 mg J TUBE BEDTIME [facility] Last Admin: 06/16/18 22:18 Dose: 20 mg Carisoprodol (Soma Tab*) 350 mg .SEE ORDER QID [facility] Last Admin: 06/16/18 22:18 Dose: 350 mg Clopidogrel Bisulfate (Plavix Tab*) 75 mg .SEE ORDER QAM [facility] Device (Nicotine Mouth Piece*) 1 each INH .USE WITH NICOTROL PRN PRN Reason: CRAVING Docusate Sodium (Colace Liq*) 100 mg PO BID [facility] Last Admin: 06/16/18 22:18 Dose: 100 mg Famotidine (Pepcid Susp*) 20 mg J TUBE DAILY [facility] Fluticasone Propionate (Flonase Nasal [place] 50mcg*) 2 spray BOTH NARES BID [facility] Last Admin: 06/16/18 22:19 Dose: Not Given Heparin Sodium (Porcine) (Heparin Vial(*)) 5,000 units SUBCUT Q8HR [facility] Last Admin: 06/17/18 04:15 Dose: 5,000 units Heparin Sodium (Porcine) (Heparin Flush Port (Ivad)) 5 ml FLUSH DAILY [facility]; Protocol Hydralazine HCl (Apresoline Iv*) 5 mg IV SLOW PU Q6H PRN PRN Reason: SYSTOLIC BP GREATER THAN: Last Admin: 06/16/18 22:17 Dose: 5 mg Hydromorphone HCl (Dilaudid Inj1s*) 1 mg IV SLOW PU Q2H PRN PRN Reason: PAIN Last Admin: 06/17/18 06:46 Dose: 1 mg Sodium Chloride (Ns 0.9% 1000 Ml*) 1,000 mls @ 150 mls/hr IV PER RATE [facility] Stop: 06/17/18 15:25 Losartan Potassium (Cozaar Tab*) 50 mg J TUBE QAM [facility] Melatonin (Melatonin) 3 mg PO QPM PRN PRN Reason: INSOMNIA Last Admin: 06/16/18 22:18 Dose: 3 mg Metoprolol Tartrate (Lopressor Tab*) 50 mg J TUBE Q12HR [facility] Last Admin: 06/16/18 22:19 Dose: 50 mg Morphine Sulfate (Ms Contin(*)) 30 mg PO TID [facility] Last Admin: 06/16/18 22:18 Dose: 30 mg Nicotine (Nicotine Inhaler*) 10 mg INH Q2H PRN PRN Reason: CRAVING Nifedipine (Procardia Cap*) 10 mg J TUBE TID [facility] Last Admin: 06/16/18 17:13 Dose: 10 mg Nitroglycerin (Nitroglycerin Tab 0.4 Mg*) 0.4 mg SL Q5M PRN PRN Reason: chest pain Ondansetron HCl (Zofran Inj*) 4 mg IV Q6H PRN PRN Reason: NAUSEA Last Admin: 06/17/18 04:15 Dose: 4 mg Polyethylene Glycol/Electrolytes (Miralax*) 17 gm PO DAILY PRN PRN Reason: CONSTIPATION Potassium Chloride (Klor-Con Liquid*) 20 meq J TUBE DAILY [facility] Prochlorperazine Edisylate (Compazine Inj*) 10 mg IV Q6H PRN PRN Reason: NAUSEA/VOMITING Last Admin: 06/17/18 06:52 Dose: 10 mg Sucralfate (Sucralfate Susp) 1 gm G TUBE BID@0700,2100 [facility] Last Admin: 06/16/18 22:18 Dose: 1 gm Vital Signs - 8 hr 06/17/18 06/17/18 06/17/18 02:13 03:47 04:15 Temperature 98.2 F Pulse Rate 63 Respiratory 14 20 16 Rate Blood Pressure 128/80 (mmHg) O2 Sat by Pulse 97 Oximetry 06/17/18 06/17/18 06/17/18 05:32 06:46 07:42 Temperature 98.2 F Pulse Rate Respiratory 16 16 Rate Blood Pressure (mmHg) O2 Sat by Pulse Oximetry Oxygen Devices in Use Now: None Appearance: A+O x3 in NAD Eyes: No Scleral Icterus, PERRLA Ears/Nose/Mouth/Throat: NL Teeth, Lips, Gums, Mucous Membranes Moist Neck: NL Appearance and Movements; NL JVP Respiratory: Symmetrical Chest Expansion and Respiratory Effort, Clear to Auscultation Cardiovascular: NL Sounds; No Murmurs; No JVD, RRR, No Edema Abdominal: NL Sounds; No Tenderness; No Distention, - - G-tube intact - no noted skin breakdown. Extremities: No Edema, No Clubbing, Cyanosis Skin: No Rash or Ulcers, No Nodules or Sclerosis Neurological: Alert and Oriented x 3, NL Sensation, NL Muscle Strength and Tone Lines/Tubes/Other Access: Clean, Dry and Intact Peripheral IV, Clean, Dry and Intact Other Access - Gtube Nutrition: Taking PO's Result Diagrams: 06/16/18 09:01 06/17/18 06:10 Assess/Plan/Problems-Billing Assessment: 63 yo nakia with a PMH of end-stage achalasia, CAD, COPD, HLD, HTN , Barrette's esophagus who presented to the ER with epigastric pain and intractable nausea. - Patient Problems (1) Intractable nausea and vomiting Comment: - with abdominal pain which has been chronic for the patient with multiple hospitalizations and ER visits. She is improving today - Last Abd CT scan showing 05/18/18 showing no acute process but there was noted advaced calcified atherosclerosis of the lower abdominal aorta extending into the iliac arteries concern for possible mesenteric ischemia. She then underwent a mesenteric arterty doppler 05/20 which was negative for evidence of mesenteric arterial insufficiency. recent gastic emptying study 06/09 showing slowed prolonged gastric emptying - she has not followed up with her Thoracic Surgeon Dr. Buckley @ to get the results - left message with his office to discuss possible treatment options for the pt. She is reluctant to start reglan stating it sometimes works but also can make her feel worse. - continue carafate, compazine, zofran, PPI (2) Acute renal failure Comment: creatinine above baseline - suspect mild dehydration - continue IVFs. Repeat labs in am (3) Electrolyte abnormality Comment: - Hyponatremia - suspect dehydration - increase IVFs to NS @ 150 ml/hr x1 - repeat labs this afternoon - hypokalemia and hypomagnesium repleted - magnesium a little high - repeat in am. (4) Achalasia Comment: - end-stage - Has JG tube as is not able to tolerate adequate oral intake, she does take in some food at home, able to eat or "pick" regular consistency foods. Supplemental tube feedings resumed. (5) CAD (coronary artery disease) Comment: - Troponins negative - Continue clopidogrel, metoprolol, statin. (6) COPD (chronic obstructive pulmonary disease) Comment: - No evidence of acute exacerbation. - Continue PRN albuterol. (7) DVT prophylaxis Comment: - Heparin SQ. (8) Full code status Comment: Status and Disposition: home when stable
[2018-06-17] MEDS: Morphine TAB Extended Release (*) 30 MG TAB.ER PO SCH ×3 (09:52→21:36)
[2018-06-17] MEDS: Carisoprodol TAB* 350 MG SCH ×4 (09:53→21:36)
[2018-06-17] MEDS: Clopidogrel TAB* 75 MG SCH (09:55)
[2018-06-17] MEDS: Losartan TAB* 25 MG J TUBE SCH (09:57)
[2018-06-17] MEDS: Metoprolol Tartrate TAB* 50 mg J TUBE SCH ×2 (09:58→21:36)
[2018-06-17] MEDS: Potassium Chloride LIQUID* 20 MEQ PACKET J TUBE SCH (10:01)
[2018-06-17] MEDS: NIFEdipine CAP* 10 MG J TUBE SCH ×3 (10:01→17:24)
[2018-06-17] MEDS: Docusate LIQ* 100 MG/10 ML UDC PO SCH ×2 (10:02→21:37)
[2018-06-17] MEDS: Sucralfate SUSP 1 GM/10 ml 10 ML UDC G TUBE SCH ×2 (10:02→21:37)
[2018-06-17] MEDS: Famotidine SUSP* 40 MG/5 ML ORAL.SYRIN J TUBE SCH (10:20)
[2018-06-17] MEDS: Fluticasone NASAL SPRAY 50MCG* 16 gm SPRAY BTL BOTH NARES SCH ×2 (10:20→21:41)
[2018-06-17] MEDS: Atorvastatin* 20 MG TAB J TUBE SCH (21:35)
[2018-06-18] MEDS: HYDROmorphone INJ1* 1 MG/ML SYRINGE IV SLOW PU PRN ×5 (01:42→10:14)
[2018-06-18] MEDS: PROCHLORPERAZINE INJ 5 MG/ML 2 ML VIAL IV PRN (03:52)
[2018-06-18] MEDS: Heparin VIAL(*) 5000 UNITS/ML VIAL (FIVE THOUSAND) SUBCUT SCH (05:48)
[2018-06-18 06:05] LABS: ABS Basophils 0.1 10^3/ul (0-0.2); ABS Eosinophils 0.1 10^3/ul (0-0.6); ABS Lymphocytes 1.4 10^3/ul (1.0-4.8); ABS Neutrophils 9.4 10^3/ul (1.5-7.7); ABS Nucleated RBC 0 10^3/ul; Eosinophil % 0.5 % (0-6); Hematocrit 36 % (35-47); Hemoglobin 12.3 g/dl (12.0-16.0); Lymphocyte % 11.8 % (25-47); Mean Corpuscular HGB Conc 34 g/dl (31-36); Mean Corpuscular Hemoglobin 30 pg (27-31); Mean Corpuscular Volume 86 fL (80-97); Mean Platelet Volume 7.7 um3 (7.4-10.4); Nucleated Red Blood Cells % 0; Platelet Count 209 10^3/ul (150-450); Red Blood Count 4.15 10^6/ul (4.00-5.40); Red Cell Distribution Width 13 % (10.5-15)
[2018-06-18 06:23] LABS: EGFR Non-African American 87.4 (>60)
[2018-06-18 07:27] VITALS: BP 139/75
[2018-06-18] MEDS: Morphine TAB Extended Release (*) 30 MG TAB.ER PO SCH (07:31)
[2018-06-18] MEDS: Fluticasone NASAL SPRAY 50MCG* 16 gm SPRAY BTL BOTH NARES SCH (07:31)
[2018-06-18] MEDS: Carisoprodol TAB* 350 MG SCH (07:32)
[2018-06-18] MEDS: Ondansetron INJ* 2 MG/ML VIAL IV PRN (07:33)
[2018-06-18] MEDS: Metoprolol Tartrate TAB* 50 mg J TUBE SCH (07:37)
[2018-06-18] MEDS: Losartan TAB* 25 MG J TUBE SCH (07:38)
[2018-06-18] MEDS: Clopidogrel TAB* 75 MG SCH (07:39)
[2018-06-18] MEDS: NIFEdipine CAP* 10 MG J TUBE SCH (07:39)
[2018-06-18] MEDS: Docusate LIQ* 100 MG/10 ML UDC PO SCH (07:42)
[2018-06-18] MEDS: Potassium Chloride LIQUID* 20 MEQ PACKET J TUBE SCH (07:42)
[2018-06-18] MEDS: Sucralfate SUSP 1 GM/10 ml 10 ML UDC G TUBE SCH (07:43)
[2018-06-18] MEDS ORDERED: Magnesium Sulfate 1 GM IV* 1 GM/100 ML BAG IV ONE (08:01)
--- NOTE | 2018-06-18 10:16 | DCNOTE ---
Subjective Date of Service: 06/18/18 Interval History: Patient reports she feels better today and would like to go home. Denies abdominal pain and has been tolerated oral food and her overnight tube feeds. No fever or chills. Objective Active Medications: Acetaminophen (Tylenol Adult Liq*) 650 mg J TUBE BID PRN PRN Reason: PAIN Albuterol (Ventolin Hfa Inhaler*) 2 puff INH Q4H PRN PRN Reason: WHEEZING Atorvastatin Calcium (Lipitor*) 20 mg J TUBE BEDTIME [facility] Last Admin: 06/17/18 21:35 Dose: 20 mg Carisoprodol (Soma Tab*) 350 mg .SEE ORDER QID [facility] Last Admin: 06/18/18 07:32 Dose: 350 mg Clopidogrel Bis[facility]ate (Plavix Tab*) [facility] Last Admin: 06/18/18 07:39 Dose: 75 mg Device (Nicotine Mouth Piece*) 1 each INH .USE WITH NICOTROL PRN PRN Reason: CRAVING Docusate Sodium (Colace Liq*) 100 mg PO BID [facility] Last Admin: 06/18/18 07:42 Dose: 100 mg Famotidine (Pepcid Susp*) 20 mg J TUBE DAILY [facility] Last Admin: 06/17/18 10:20 Dose: 20 mg Fluticasone Propionate (Flonase Nasal [place]asy 50mcg*) 2 spray BOTH NARES BID [facility] Last Admin: 06/18/18 07:31 Dose: 2 spray Heparin Sodium (Porcine) (Heparin Vial(*)) 5,000 units SUBCUT Q8HR [facility] Last Admin: 06/18/18 05:48 Dose: 5,000 units Heparin Sodium (Porcine) (Heparin Flush Port (Ivad)) 5 ml FLUSH DAILY [facility]; Protocol Last Admin: 06/17/18 18:05 Dose: 5 ml Hydralazine HCl (Apresoline Iv*) 5 mg IV SLOW PU Q6H PRN PRN Reason: SYSTOLIC BP GREATER THAN: Last Admin: 06/16/18 22:17 Dose: 5 mg Hydromorphone HCl (Dilaudid Inj1s*) 1 mg IV SLOW PU Q2H PRN PRN Reason: PAIN Last Admin: 06/18/18 07:58 Dose: 1 mg Losartan Potassium (Cozaar Tab*) 50 mg J TUBE QAM [facility] Last Admin: 06/18/18 07:38 Dose: 50 mg Melatonin (Melatonin) 3 mg PO QPM PRN PRN Reason: INSOMNIA Last Admin: 06/16/18 22:18 Dose: 3 mg Metoprolol Tartrate (Lopressor Tab*) 50 mg J TUBE Q12HR [facility] Last Admin: 06/18/18 07:37 Dose: 50 mg Morphine Sulfate (Ms Contin(*)) 30 mg PO TID [facility] Last Admin: 06/18/18 07:31 Dose: 30 mg Nicotine (Nicotine Inhaler*) 10 mg INH Q2H PRN PRN Reason: CRAVING Nifedipine (Procardia Cap*) 10 mg J TUBE TID AC [facility] Last Admin: 06/18/18 07:39 Dose: 10 mg Nitroglycerin (Nitroglycerin Tab 0.4 Mg*) 0.4 mg SL Q5M PRN PRN Reason: chest pain Ondansetron HCl (Zofran Inj*) 4 mg IV Q6H PRN PRN Reason: NAUSEA Last Admin: 06/18/18 07:33 Dose: 4 mg Polyethylene Glycol/Electrolytes (Miralax*) 17 gm PO DAILY PRN PRN Reason: CONSTIPATION Potassium Chloride (Klor-Con Liquid*) 20 meq J TUBE DAILY [facility] Last Admin: 06/18/18 07:42 Dose: 20 meq Prochlorperazine Edisylate (Compazine Inj*) 10 mg IV Q6H PRN PRN Reason: NAUSEA/VOMITING Last Admin: 06/18/18 03:52 Dose: 10 mg Sucralfate (Sucralfate Susp) 1 gm G TUBE BID@0700,2100 [facility] Last Admin: 06/18/18 07:43 Dose: 1 gm Vital Signs - 8 hr 06/18/18 06/18/18 06/18/18 02:45 03:40 03:52 Temperature 98.0 F Pulse Rate 59 Respiratory 16 18 16 Rate Blood Pressure 123/62 (mmHg) O2 Sat by Pulse 96 Oximetry 06/18/18 06/18/18 06/18/18 05:54 06:54 07:23 Temperature 98.1 F Pulse Rate 54 Respiratory 15 16 16 Rate Blood Pressure 139/75 (mmHg) O2 Sat by Pulse 97 Oximetry 06/18/18 06/18/18 06/18/18 07:31 07:32 07:58 Temperature Pulse Rate Respiratory 16 18 16 Rate Blood Pressure (mmHg) O2 Sat by Pulse Oximetry 06/18/18 06/18/18 08:00 08:58 Temperature Pulse Rate Respiratory 16 16 Rate Blood Pressure (mmHg) O2 Sat by Pulse Oximetry Oxygen Devices in Use Now: None Appearance: thin chronically ill female sitting up in bed A+O x3 Eyes: No Scleral Icterus, PERRLA Ears/Nose/Mouth/Throat: NL Teeth, Lips, Gums, Mucous Membranes Moist Neck: NL Appearance and Movements; NL JVP Respiratory: Symmetrical Chest Expansion and Respiratory Effort Cardiovascular: NL Sounds; No Murmurs; No JVD, RRR, No Edema Abdominal: NL Sounds; No Tenderness; No Distention, - - Gtube in place Extremities: No Edema, No Clubbing, Cyanosis Skin: No Rash or Ulcers, No Nodules or Sclerosis Neurological: Alert and Oriented x 3, NL Sensation, NL Muscle Strength and Tone Lines/Tubes/Other Access: Clean, Dry and Intact Peripheral IV Nutrition: Taking PO's - Nutrition: Malnutrition Diagnosis/Plan Malnutrition Assessment by Registered Dietitian: Malnutrition Assessment Clinical Characteristics Chronic,Severe Malnutrition Assessment: - 9% wt loss x past 2 months Criteria - Underweight (BMI 14.9) - Moderate-severe temporal muscle wasting Malnutrition Assessment: - Encouraged intake of high protein foods. Per Interventions pt, edith gibbons is a "go-to" for her at home. Pt declined offer for oral nutritional supplements. Will follow intake closely and make additional suggestions as indicated. Malnutrition Assessment: Goals 1. Adequate nutrition (oral intake and enteral nutrition support) to promote wt gain Result Diagrams: 06/18/18 05:45 06/18/18 05:45 Assess/Plan/Problems-Billing Assessment: 63 yo nakia with a PMH of end-stage achalasia, CAD, COPD, HLD, HTN , Barrette's esophagus who presented to the ER with epigastric pain and intractable nausea. - Patient Problems (1) Intractable nausea and vomiting Comment: - resolved - chronic intermittent pain with N/V - Last Abd CT scan showing 05/18/18 showing no acute process but there was noted advaced calcified atherosclerosis of the lower abdominal aorta extending into the iliac arteries concern for possible mesenteric ischemia. She then underwent a mesenteric arterty doppler 05/20 which was negative for evidence of mesenteric arterial insufficiency. recent gastic emptying study 06/09 showing slowed prolonged gastric emptying - she has not followed up with her Thoracic Surgeon Dr. Buckley @ to get the results - I spoke with the Nurse at the office who reports we could try Reglan if the patient would like to try - she has not had [facility] success with this in the past. The pt would like to be sent home with a prescription but does not want to take it scheduled. Dr. Baker office will contact the patient for a follow up - continue home meds (2) Acute renal failure Comment: Resolved with IVFs. (3) Electrolyte abnormality Comment: - Hyponatremia stable at baseline - replace magneisum (4) Achalasia Comment: - end-stage - Has JG tube as is not able to tolerate adequate oral intake, she does take in some food at home, able to eat or "pick" regular consistency foods. Supplemental tube feedings resumed. - follows with Dr. Buckley at (5) CAD (coronary artery disease) Comment: - Troponins negative - Continue clopidogrel, metoprolol, statin. (6) COPD (chronic obstructive pulmonary disease) Comment: - No evidence of acute exacerbation. - Continue PRN albuterol. (7) DVT prophylaxis Comment: - Heparin SQ. (8) Full code status Comment: Status and Disposition: home today. Follow up with Dr. Buckley and PCP
[2018-06-18] MEDS: Famotidine SUSP* 40 MG/5 ML ORAL.SYRIN J TUBE SCH (11:14)
--- NOTE | 2018-06-18 15:22 | DS ---
DISCHARGE SUMMARY: DATE OF ADMISSION: 06/16/18 DATE OF DISCHARGE: 06/17/18 PROVIDER: Paul Bain NP ATTENDING PHYSICIAN: Yumiko Milan DO * (report dictated by Paul Bain NP). PRIMARY CARE PROVIDER: Trish Combs MD THORACIC SURGEON: Dr. Buckley HOSPITAL STATUS: Observation. DISCHARGE DIAGNOSES: 1. End-stage achalasia. 2. Intractable nausea, vomiting, abdominal pain. 3. Gastroparesis. 4. Acute kidney injury. 5. Suspect dehydration. 6. Electrolyte abnormalities with hypokalemia, hypomagnesium, and hyponatremia. SECONDARY DIAGNOSES: 1. History of deep vein thrombosis/pulmonary embolism. 2. History of coronary artery disease. 3. Hyperlipidemia. 4. History of seizures. 5. History of transient ischemic attack. 6. Chronic obstructive pulmonary disease. 7. Hypertension. 8. Fernández's esophagus. 9. History of tobacco abuse. 10. Diverticulitis. 11. Gastroesophageal reflux disease. 12. History of right breast cancer status post mastectomy. HISTORY OF PRESENT ILLNESS AND HOSPITAL COURSE: See please history and physical by Liss Pollock for full admission details. But in summary , this is a 63- year-old female who is well known to our hospitalist service with frequent hospitalizations for intractable nausea, vomiting, and abdominal pain, who presented on 06/16/18, with intractable nausea and abdominal pain starting suddenly the night before bringing her to the emergency department. She denies any fevers or chills. On evaluation in the emergency department, she was found to have no leukocytosis. The next day, she did have some noted acute-on chronic kidney injury most likely secondary to dehydration, which was resolved with IV fluids. The patient has done well throughout her hospitalization. By the second day of her hospitalization, she had great improvement from admission. However, yesterday she was not quite ready to go home and still continued to have some nausea and pain. Today, the patient reports that she would like to go home and that her pain and nausea have resolved. She has not vomited since her arrival to the emergency department. She recently underwent a gastric emptying study on 06/09/18, which was set up by her thoracic surgeon, Dr. Buckley, which does show prolonged gastric emptying with a half life of 239 minutes. I spoke with Dr. Buckley's office and spoke with the nurse who reports they will follow up with the patient shortly to review her options, which are quite limited with the end-stage achalasia. The patient and I did discuss starting Reglan. She was given 1 dose in the emergency department and it is possible she felt some relief from this; however, the patient reports in the past she has not done well with Reglan, feeling like it has not been that helpful and possibly causing worsening symptoms. The patient would like a prescription to go home for p.r.n. use and states that she will try to use this if her discomfort starts to come back to see if she gets any relief. As well, Dr. Buckley's nurse said that this could be inappropriate treatment for the patient if she is willing to try it. The patient is back on her home diet of her tube feedings as well as taking of little bites of food orally and doing well with this. The patient has remained hemodynamically stable throughout the hospitalization and had 1 noted low grade fever on admission of 100, otherwise has been afebrile since. The patient is stable for discharge to home. She is to follow up with her primary care provider within 3-5 days as well as Dr. Buckley's nurse and they will call the patient if had a follow up appointment. DISCHARGE MEDICATIONS: 1. Morphine oral concentrate 2.5 mL p.o. q. 3 hours p.r.n. 2. Benadryl 12.5 mg/5 mL 25 mg J-tube q. 6 hours p.r.n. 3. Sucralfate suspension 1 g J-tube b.i.d. 4. Simvastatin 40 mg p.o. at bedtime. 5. Compazine 10 mg J-tube b.i.d. p.r.n. 6. Potassium chloride 20 mEq J-tube daily. 7. Zofran 4 mg ODT p.o. q. 8 hours p.r.n. 8. Nitroglycerin 0.4 mg sublingual q. 5 minutes p.r.n. 9. Procardia 10 mg J-tube t.i.d. 10. Morphine tab extended 30 mg p.o. t.i.d. 11. Metoprolol tartrate 50 mg J-tube q. 12 hours. 12. Melatonin 3 mg J-tube q.p.m. p.r.n. 13. Losartan 50 mg J-tube q.a.m. 14. Jevity 1.5, 100 mL an hour overnight for 8 hours through J-tube. 15. Allergy eyedrops 1 drop both eyes daily b.i.d. p.r.n. 16. Flonase 50 mcg 2 sprays both nares b.i.d. 17. Pepcid 20 mg J-tube daily. 18. EpiPen 0.3 mg IM p.r.n. 19. Vitamin B12 1000 mcg IM monthly. 20. Plavix 75 mg q.a.m. 21. Soma 350 mg 4 times a day. 22. ProAir two puffs INH q. 4 hours p.r.n. 23. Acetaminophen 60 mg J-tube b.i.d. p.r.n. New medications: Reglan liquid 5 mg p.o. q. 8 hours p.r.n. The patient is willing to potentially trial this if she has increased nausea, abdominal pain, or abdominal discomfort. DISCHARGE PLAN: 1. Follow up with Dr. Combs within 3-[address] Buckley's office is to call the patient for followup appointment. 3. The patient is stable for discharge home. TIME SPENT: Approximately 60 minutes was spent on this discharge. PAUL BAIN, DAYNE [id number]/[facility] #: [id number] [place]
== END 2018-06-18 11:45 | disposition home or self-care (01) ==
LOC: ED 08:11 → MEDTELE 13:59
PROVIDERS: ADMIT Internal Medicine; ATTEND Hospitalist
DX: K22.0 Achalasia of cardia (principal); R11.2 Nausea with vomiting, unspecified; R10.9 Unspecified abdominal pain; K31.84 Gastroparesis; N17.9 Acute kidney failure, unspecified; E87.6 Hypokalemia; E83.42 Hypomagnesemia; E87.1 Hypo-osmolality and hyponatremia; Z86.718 Personal history of other venous thrombosis and embolism; Z86.711 Personal history of pulmonary embolism; Z79.01 Long term (current) use of anticoagulants; I25.10 Atherosclerotic heart disease of native coronary artery without angina pectoris; E78.5 Hyperlipidemia, unspecified; G40.909 Epilepsy, unspecified, not intractable, without status epilepticus; Z86.73 Personal history of transient ischemic attack (TIA), and cerebral infarction without residual deficits; J44.9 Chronic obstructive pulmonary disease, unspecified; I10 Essential (primary) hypertension; K22.70 Barrett's esophagus without dysplasia; K21.9 Gastro-esophageal reflux disease without esophagitis; Z85.3 Personal history of malignant neoplasm of breast; Z79.899 Other long term (current) drug therapy; Z88.8 Allergy status to other drugs, medicaments and biological substances; Z83.3 Family history of diabetes mellitus; Z82.49 Family history of ischemic heart disease and other diseases of the circulatory system; F17.210 Nicotine dependence, cigarettes, uncomplicated; I51.7 Cardiomegaly; R06.02 Shortness of breath
CPT/HCPCS: 36415; 71045; 80048; 80053; 83605; 83735; 83880; 84484; 85025; 85610; 85730; 93005; 96365; 96366; 96372; 96375; 96376; 99284; A9270-GY; G0378; J0360; J0780; J1170; J1642; J1644; J2405; J2765; J3475; J3480

== ENCOUNTER 2018-06-19 05:10 | Emergency (ER) | payer OTHER ==
[2018-06-19 05:59] LABS: ABS Basophils 0 10^3/ul (0-0.2); ABS Eosinophils 0 10^3/ul (0-0.6); ABS Lymphocytes 0.7 10^3/ul (1.0-4.8); ABS Monocytes 0.6 10^3/ul (0-0.8); ABS Neutrophils 8.8 10^3/ul (1.5-7.7); ABS Nucleated RBC 0 10^3/ul; Eosinophil % 0.1 % (0-6); Hematocrit 44 % (35-47); Mean Corpuscular HGB Conc 34 g/dl (31-36); Mean Corpuscular Hemoglobin 30 pg (27-31); Mean Corpuscular Volume 86 fL (80-97); Mean Platelet Volume 7.8 um3 (7.4-10.4); Nucleated Red Blood Cells % 0.1; Platelet Count 278 10^3/ul (150-450); Red Blood Count 5.06 10^6/ul (4.00-5.40); Red Cell Distribution Width 13 % (10.5-15); White Blood Count 10.2 10^3/ul (3.5-10.8)
[2018-06-19] MEDS ORDERED: Ondansetron INJ* 2 MG/ML VIAL IV ONE (06:01)
[2018-06-19] MEDS ORDERED: HYDROmorphone INJ* 2 MG/ML CARPUJECT SYRINGE IV SLOW PU ONE ×2 (06:01→07:29)
[2018-06-19] MEDS ORDERED: Nitroglycerin TAB 0.4 MG* 0.4 MG TAB SL ONE ×2 (06:08→06:58)
[2018-06-19 06:15] LABS: EGFR Non-African American 102.9 (>60)
[2018-06-19] MEDS ORDERED: Pantoprazole IV* 40 MG IV ONE (06:15)
[2018-06-19] MEDS ORDERED: Magnesium Sulfate 2 GM IV* 2 GM/50 ML BAG IVPB ONE (06:45)
[2018-06-19] MEDS ORDERED: NS 0.9% 1000 ML* 1,000 ML IV ONE (06:55)
[2018-06-19] MEDS ORDERED: Metoclopramide IV* 5 MG/ML 2 ML VIAL IV ONE (07:29)
[2018-06-19] MEDS ORDERED: Metoclopramide IV* 5 MG/ML 2 ML VIAL IV SLOW PU ONE (09:37)
[2018-06-19] MEDS ORDERED: Sucralfate TAB* 1 GM J TUBE ONE (09:50)
[2018-06-19] MEDS ORDERED: Metoprolol Tartrate TAB* 50 mg J TUBE ONE (09:50)
[2018-06-19] MEDS ORDERED: NIFEdipine CAP* 10 MG J TUBE ONE (09:50)
[2018-06-19] MEDS ORDERED: Losartan TAB* 25 MG J TUBE ONE (09:50)
[2018-06-19] MEDS ORDERED: Famotidine SUSP* 40 MG/5 ML ORAL.SYRIN J TUBE ONE (09:52)
[2018-06-19] MEDS: HYDROmorphone INJ1* 1 MG/ML SYRINGE IV SLOW PU SCH ×2 (10:06→11:31)
--- NOTE | 2018-06-19 10:50 | ED ---
GI/ HPI - HPI Summary HPI Summary: Patient presents with acute on chronic chest and abdominal/stomach" pain. She was seen on 06/16 for same symptoms and admitted to the hospital for intractable pain control. Her pain was eventually controlled with IV medications however she reports shortly after going home upon discharge her pain returned and she's not been able to control it since. She uses morphine through her J-tube at home which has not been helping recently. She continues to use her other medications as well including her antihypertensives, GI medications, etc. She has what is described in her notes as "end-stage achalasia" with gastroparesis. She had a gastric emptying study on 06/09 which revealed "prolonged after emptying half-life of 239 minutes". In her previous admission over the past few months, she's had mesentaric artery testing (no pathology). She also had an assessment of her aorta for aneurysm - normal. She is here today as she has nausea with "heaves" and intermittent vomiting. Last time she was here on 06/16 she was deficient of multiple electrolytes. Will check again today. She continues to use her Jevity and denies issues with flow - site is clean and dry. She denies diarrhea or dysuria as well as shortness of breath, headache, upper or lower extremity pain, skin changes, fevers or chills. She states she is ready to have surgery on her stomach. She is followed by Dr. Buckley at [facility] and they've discussed potential options for surgery if her symptoms do not improve. She has an appointment with him later this month however she feels she cannot wait to be seen. - History of Current Complaint Chief Complaint: EDChestWallPain Time Seen by Provider: 06/19/18 05:42 Stated Complaint: CHEST PAIN/HEAVING Hx Obtained From: Patient Pain Intensity: 10 - Additional Pertinent History Primary Care Physician: [id number] - Allergy/Home Medications Allergies/Adverse Reactions: Allergies Allergy/AdvReac Type Severity Reaction Status Date / Time albumin colloid, human Allergy Severe Anaphylatic Verified 06/19/18 05:13 Shock bee venom protein (honey bee) Allergy Severe Anaphylatic Verified 06/19/18 05:13 Shock Iodinated Contrast- Oral and Allergy Severe Anaphylatic Verified 06/19/18 05:13 IV Dye Shock onabotulinumtoxinA Allergy Severe Anaphylatic Verified 06/19/18 05:13 [From Botox] Shock Penicillins Allergy Severe Anaphylatic Verified 06/19/18 05:13 Shock shellfish derived Allergy Severe Anaphylatic Verified 06/19/18 05:13 Shock Adhesive Tape Allergy Mild Itching Verified 06/19/18 05:13 chlorhexidine Allergy Mild Rash And Verified 06/19/18 05:13 Itching latex Allergy Mild Hives Verified 06/19/18 05:13 NSAIDS (Non-Steroidal Allergy Mild Hives Verified 06/19/18 05:13 Anti-Inflamma povidone-iodine Allergy Mild Itching Verified 06/19/18 05:13 fentanyl Allergy Hallucinati Verified 06/19/18 05:13 ons ENVIRONMENTAL/SEASONAL Allergy Mild ITCHY,WATERY Uncoded 06/19/18 05:13 HAYFEVER EYES, SNEEZE, CONGESTION PMH/Surg Hx/FS Hx/Imm Hx Previously Healthy: No - chronic pain issues/poorly controlled HTN Endocrine/Hematology History: Reports: Hx Anticoagulant Therapy - plavix, Hx Anemia - possible Denies: Hx Diabetes, Hx Thyroid Disease Cardiovascular History: Reports: Hx Angina - has prn nitro, Hx Coronary Artery Disease - 2 stents- RCA stent 2006, LAD stent 2007, Hx Deep Vein Thrombosis, Hx Embolism, Hx Hypercholesterolemia, Hx Hypertension, Hx Myocardial Infarction, Hx Syncope, Other Cardiovascular Problems/Disorders - cardiac cath Denies: Hx Congestive Heart Failure, Hx Pacemaker/ICD, Hx Valvular Heart Disease Respiratory History: Reports: Hx Chronic Obstructive Pulmonary Disease (COPD) - Pt denies though providers have diagnosed it, Hx Pneumonia, Hx Pulmonary Embolism - and DVT 30 yrs ago, Hx Seasonal Allergies, Other Respiratory Problems /Disorders - SMOKER Denies: Hx Asthma, Hx Sleep Apnea GI History: Reports: Hx Diverticulosis, Hx Gastroesophageal Reflux Disease, Hx Hiatal Hernia - 3 surgeries, Other GI Disorders - achalasia, Fernández's esophagus , gastroparesis, J tube Denies: Hx Ulcer History: Reports: Hx Kidney Infection, Hx Kidney Stones - LAST 12/2015- NO PROBLEMS SINCE PER PATIENT Denies: Hx Dialysis, Hx Renal Disease, Other Problems/Disorders Musculoskeletal History: Reports: Hx Arthritis, Hx Back Problems, Other Musculoskeletal History - L1 fx Denies: Hx Osteoporosis Sensory History: Reports: Hx Cataracts - maryuri Denies: Hx Contacts or Glasses, Hx Hearing Aid Opthamlomology History: Reports: Hx Cataracts - maryuri Denies: Hx Contacts or Glasses Neurological History: Reports: Hx Spinal Cord Injury - L1, Hx Transient Ischemic Attacks (TIA), Other Neuro Impairments/Disorders - POSSIBLE SMALL TIA'S - 3 yrs ago Psychiatric History: Reports: Hx Anxiety Denies: Hx Panic Disorder - Cancer History Cancer Type, Location and Year: RT BREAST CA, 2009 HAD A BILATERAL MASTECTOMY Hx Chemotherapy: No Hx Radiation Therapy: No - Surgical History Surgery Procedure, Year, and Place: RT LUMPECTOMY 02/2010, BILATERAL MASTECTOMY ,. 2006& 2007 CARDIAC STENT AT [facility] IN [place],. LEFT KNEE SURGERY X10,. BILATERAL SHOULDER SURGERY,. ESPOHOGEAL SURGERY,1996, 2014. failed breast implant on left. PARTIAL HYSTERECTOMY, 1976. APPENDIX A CHILD,. CHEST TUBE, 1996. ESOPHAGEAL DILATION. NISSIN FUNDOLPICATION . total left knee replacement 2015. kidney stone surgery. left chest wound surgery 2010. Insertion Infusaport 02/2018 Hx Anesthesia Reactions: No - Immunization History Date of Tetanus Vaccine: utd Date of Influenza Vaccine: fall 2016 Infectious Disease History: No Infectious Disease History: Reports: Hx Clostridium Difficile Denies: Hx Hepatitis, Hx Human Immunodeficiency Virus (HIV), Hx of Known/ Suspected MRSA, Hx Shingles, Hx Tuberculosis, Hx Known/Suspected VRE, Hx Known/ Suspected VRSA, History Other Infectious Disease, Traveled Outside the in Last 30 Days - Family History Known Family History: Positive: Cardiac Disease - Father, 2 brothers - [place]. Mother - AFIB, Hypertension, Diabetes - Social History Occupation: Retired Lives: Alone Alcohol Use: None Hx Substance Use: No Substance Use Type: Reports: None Substance Use Comment - Amount & Last Used: prescribed Hx Tobacco Use: Yes Smoking Status (MU): Current Every Day Smoker Type: Cigarettes Amount Used/How Often: 1-3 cigarettes/day Length of Time of Smoking/Using Tobacco: 40+ YEARS Have You Smoked in the Last Year: No Review of Systems Constitutional: Negative Negative: Fever, Chills, Fatigue Eyes: Negative ENT: Negative Positive: Chest Pain - acute on chronic Positive: Cough - baseline Positive: Abdominal Pain, Vomiting, Nausea. Negative: Diarrhea Genitourinary: Negative Musculoskeletal: Negative Skin: Negative Neurological: Negative Positive: Anxious All Other Systems Reviewed And Are Negative: Yes Physical Exam Triage Information Reviewed: Yes Vital Signs On Initial Exam: Initial Vitals Temp Pulse Resp BP Pulse Ox 97.5 F 92 16 208/104 98 06/19/18 05:13 06/19/18 05:13 06/19/18 05:13 06/19/18 05:13 06/19/18 05:13 Vital Signs Reviewed: Yes Appearance: Positive: Well-Appearing, Pain Distress, Cachectic Skin: Positive: Warm, Skin Color Reflects Adequate Perfusion, Dry Head/Face: Positive: Normal Head/Face Inspection Eyes: Positive: Normal, EOMI, Conjunctiva Clear - anicteric sclera ENT: Positive: Hearing grossly normal Neck: Positive: Supple Respiratory/Lung Sounds: Positive: Clear to Auscultation, Breath Sounds Present. Negative: Rales, Rhonchi, Wheezes Cardiovascular: Positive: Normal, RRR, S1, S2. Negative: Murmur, Rub, Leg Edema Left, Leg Edema Right Abdomen Description: Positive: Guarding, Other: - TTP - J tube site appears clean and dry w/o erythema Bowel Sounds: Positive: Present Pelvic Exam: Positive: Other - deferred Musculoskeletal: Positive: Strength/ROM Intact - baseline Neurological: Positive: Normal, Sensory/Motor Intact, Alert, Oriented to Person Place, Time, CN Intact II-III Psychiatric: Positive: Normal - concerned/frustrated but calm and polite Diagnostics - Vital Signs Vital Signs Temp Pulse Resp BP Pulse Ox 06/19/18 10:06 16 06/19/18 09:21 71 18 218/117 97 06/19/18 09:00 80 19 96 06/19/18 08:21 82 19 206/116 95 06/19/18 08:00 75 19 95 06/19/18 07:51 76 17 194/115 96 06/19/18 07:35 16 06/19/18 07:21 95 15 182/130 94 06/19/18 07:00 88 20 95 06/19/18 06:51 72 21 189/117 95 06/19/18 06:44 78 22 203/120 95 06/19/18 06:24 16 06/19/18 06:00 17 06/19/18 05:51 21 241/140 06/19/18 05:40 77 15 224/127 97 06/19/18 05:38 11 228/116 06/19/18 05:30 11 249/124 06/19/18 05:13 97.5 F 92 16 208/104 98 - Laboratory Lab Results: Lab Results 06/19/18 06/19/18 06/19/18 Range/Units 05:48 05:48 06:36 WBC 10.2 (3.5-10.8) 10^3/ul RBC 5.06 (4.00-5.40) 10^6/ul Hgb 15.0 (12.0-16.0) g/dl Hct 44 (35-47) % MCV 86 (80-97) fL MCH 30 (27-31) pg MCHC 34 (31-36) g/dl RDW 13 (10.5-15) % Plt Count 278 (150-450) 10^3/ul MPV 7.8 (7.4-10.4) um3 Neut % (Auto) 86.2 H (38-83) % Lymph % (Auto) 7.0 L (25-47) % [place] % (Auto) 6.3 (0-7) % Eos % (Auto) 0.1 (0-6) % Baso % (Auto) 0.4 (0-2) % Absolute Neuts (auto) 8.8 H (1.5-7.7) 10^3/ul Absolute Lymphs (auto) 0.7 L (1.0-4.8) 10^3/ul Absolute Monos (auto) 0.6 (0-0.8) 10^3/ul Absolute Eos (auto) 0 (0-0.6) 10^3/ul Absolute Basos (auto) 0 (0-0.2) 10^3/ul Absolute Nucleated RBC 0 10^3/ul Nucleated RBC % 0.1 Sodium 131 L (135-145) mmol/L Potassium TNP Chloride 101 (101-111) mmol/L Carbon Dioxide 19 L (22-32) mmol/L Anion Gap 11 (2-11) mmol/L BUN 13 (6-24) mg/dL Creatinine 0.59 (0.51-0.95) mg/dL Est GFR ( Amer) 124.6 (>60) Est GFR (Non-Af Amer) 102.9 (>60) BUN/Creatinine Ratio 22.0 H (8-20) Glucose 159 H (70-100) mg/dL Lactic Acid 1.3 (0.5-2.0) mmol/L Calcium 9.0 (8.6-10.3) mg/dL Magnesium 1.7 L (1.9-2.7) mg/dL Total Bilirubin 0.60 (0.2-1.0) mg/dL Direct Bilirubin TNP Indirect Bilirubin TNP AST TNP ALT 10 (7-52) U/L Alkaline Phosphatase 56 (34-104) U/L Troponin I 0.00 (<0.04) ng/mL C-Reactive Protein 6.04 (<8.01) mg/L Total Protein 7.3 (6.4-8.9) g/dL Albumin 4.2 (3.2-5.2) g/dL Globulin 3.1 (2-4) g/dL Albumin/Globulin Ratio 1.4 (1-3) Lipase < 10 L (11.0-82.0) U/L 06/19/18 Range/Units 06:37 WBC (3.5-10.8) 10^3/ul RBC (4.00-5.40) 10^6/ul Hgb (12.0-16.0) g/dl Hct (35-47) % MCV (80-97) fL MCH (27-31) pg MCHC (31-36) g/dl RDW (10.5-15) % Plt Count (150-450) 10^3/ul MPV (7.4-10.4) um3 Neut % (Auto) (38-83) % Lymph % (Auto) (25-47) % [place] % (Auto) (0-7) % Eos % (Auto) (0-6) % Baso % (Auto) (0-2) % Absolute Neuts (auto) (1.5-7.7) 10^3/ul Absolute Lymphs (auto) (1.0-4.8) 10^3/ul Absolute Monos (auto) (0-0.8) 10^3/ul Absolute Eos (auto) (0-0.6) 10^3/ul Absolute Basos (auto) (0-0.2) 10^3/ul Absolute Nucleated RBC 10^3/ul Nucleated RBC % Sodium (135-145) mmol/L Potassium 3.7 Chloride (101-111) mmol/L Carbon Dioxide (22-32) mmol/L Anion Gap (2-11) mmol/L BUN (6-24) mg/dL Creatinine (0.51-0.95) mg/dL Est GFR ( Amer) (>60) Est GFR (Non-Af Amer) (>60) BUN/Creatinine Ratio (8-20) Glucose (70-100) mg/dL Lactic Acid (0.5-2.0) mmol/L Calcium (8.6-10.3) mg/dL Magnesium (1.9-2.7) mg/dL Total Bilirubin (0.2-1.0) mg/dL Direct Bilirubin 0.10 Indirect Bilirubin AST 15 ALT (7-52) U/L Alkaline Phosphatase (34-104) U/L Troponin I (<0.04) ng/mL C-Reactive Protein (<8.01) mg/L Total Protein (6.4-8.9) g/dL Albumin (3.2-5.2) g/dL Globulin (2-4) g/dL Albumin/Globulin Ratio (1-3) Lipase (11.0-82.0) U/L Result Diagrams: 06/19/18 05:48 06/19/18 06:37 Lab Statement: Any lab studies that have been ordered have been reviewed, and results considered in the medical decision making process. GIGU Course/Dx - Course Course Of Treatment: Pt presents w/ acute on chronic chest/ab pain. She reports this pain is the same as it's been over the past many months and denies palpitations, shortness of breath, fatigue, back pain. She reports the pain is worse when she tries to eat or drink. She does have a baseline cough which is somewhat productive and when she coughs this triggers her gag reflex causing her to "heave". Last time she was here her electrolytes were deficient and so they were checked again today. She appears to be maintaining them fairly well since 06/18 (yesterday when she was d/c'd from [facility]) however magnesium was slightly low at 1.7. This was replaced with 2 g of magnesium IV. Her pain was treated with Dilaudid, nitroglycerin and Protonix initially. Her additional GI regimen was added later in her visit as well as her antihypertensives. Her pain has been briefly/intermittently controlled as has blood pressure. Due to her cardiac history, a troponin and EKG were ordered intially - ECG is normal sinus rhythm without ST elevation and troponin is negative. No further cardiac workup was implemented given the nature of her complaint. She's also had a history of aorta workup and denies clinical presentation of dissection and PE so these were not investigated. Discussed case initially with Dr. Richards who feels it is safe to proceed with workup from a GI standpoint and refrain from more aggressive cardiac w/u. Later discussed with Dr. Zaidi and we both feel the patient is a good candidate for further GI intervention. Offered patient GI consult here however she reports she seen our GI team in the past and they have nothing to offer her. She prefers transfer to [facility] where she sees Dr. Buckley. Discussed possibility of driving up with a family member versus taking an ambulance. She prefers an ambulance as she does not have that kind of support. Medically she is probably more safe traveling via ambulance as well as her blood pressure is quite labile , jumping up into the 200's/100's. Discussed with Dr. Buckley who agrees to accept the patient. She'll be transferred via ambulance with ALS. Patient stable at time of transfer. - Diagnoses Provider Diagnoses: Intractable abdominal pain, Esophageal achalasia, Gastroparesis, Intractable nausea and vomiting, Poorly-controlled hypertension Discharge - Sign-Out/Discharge Documenting (check all that apply): Patient Departure - Discharge Plan Condition: Improved Disposition: TRANS HIGHER LVL OF CARE FAC - Billing Disposition and Condition Condition: IMPROVED Disposition: Trans Higher Lvl of Care Fac
[2018-06-19 11:47] VITALS: BP 192/81
== END 2018-06-19 11:46 | disposition short-term general hospital (02) ==
LOC: ED 05:10
DX: R10.9 Unspecified abdominal pain (principal); K22.0 Achalasia of cardia; K31.84 Gastroparesis; R11.2 Nausea with vomiting, unspecified; I10 Essential (primary) hypertension; F17.210 Nicotine dependence, cigarettes, uncomplicated; Z85.3 Personal history of malignant neoplasm of breast
CPT/HCPCS: 36415; 80048; 80076; 83605; 83690; 83735; 84484; 85025; 86140; 93005; 96361; 96374; 96375; 96376; 99285; A9270-GY; J1170; J2405; J2765; J3475

== ENCOUNTER 2018-08-02 06:44 | Inpatient (IN) | payer OTHER ==
[2018-08-02] MEDS ORDERED: Nitroglycerin TAB 0.4 MG* 0.4 MG TAB SL ONE (07:39)
[2018-08-02] MEDS ORDERED: Labetalol IV* 5 MG/ML 20 ML VIAL IV PUSH ONE ×2 (07:39→09:04)
--- NOTE | 2018-08-02 07:45 | ED ---
Complex/Multi-Sys Presentation - HPI Summary HPI Summary: This patient is a 63 year old F presenting to [facility] with a chief complaint of HTN, chest pain and RUQ pain since yesterday morning. The patient was seen at a clinic and was told to come to [facility] due to her HTN. She states her pain is likely due to achalasia, and was transferred and admitted to [place] one month ago for the condition. She states she usually receives pain medication for this condition. The patient rates the pain 10/10 in severity and describes it as a squeezing pain, as if there was an object sitting on top of her chest. She also complains of nausea and that she has been heaving, however denied vomiting and diarrhea. The patient states she may be allergic to Botox, although she also states it was used in surgery a month ago in which she received a new feeding tube. - History Of Current Complaint Hx Obtained From: Patient Onset/Duration: Lasting Days Severity Currently: Severe Severity Initially: Severe Location: Pain At: - RUQ and chest. Character: Pressure - Squeezing Associated Signs And Symptoms: Positive: Chest Pain, Nausea, Abdominal Pain Related History: Recent Hospitalization - One month ago. - Allergies/Home Medications Allergies/Adverse Reactions: Allergies Allergy/AdvReac Type Severity Reaction Status Date / Time albumin colloid, human Allergy Severe Anaphylatic Verified 08/02/18 07:15 Shock bee venom protein (honey bee) Allergy Severe Anaphylatic Verified 08/02/18 07:15 Shock Iodinated Contrast- Oral and Allergy Severe Anaphylatic Verified 08/02/18 07:15 IV Dye Shock onabotulinumtoxinA Allergy Severe Anaphylatic Verified 08/02/18 07:15 [From Botox] Shock Penicillins Allergy Severe Anaphylatic Verified 08/02/18 07:15 Shock shellfish derived Allergy Severe Anaphylatic Verified 08/02/18 07:15 Shock Adhesive Tape Allergy Mild Itching Verified 08/02/18 07:15 chlorhexidine Allergy Mild Rash And Verified 08/02/18 07:15 Itching latex Allergy Mild Hives Verified 08/02/18 07:15 NSAIDS (Non-Steroidal Allergy Mild Hives Verified 08/02/18 07:15 Anti-Inflamma povidone-iodine Allergy Mild Itching Verified 08/02/18 07:15 fentanyl Allergy Hallucinati Verified 08/02/18 07:15 ons ENVIRONMENTAL/SEASONAL Allergy Mild ITCHY,WATERY Uncoded 06/19/18 05:13 HAYFEVER EYES, SNEEZE, CONGESTION PMH/Surg Hx/FS Hx/Imm Hx Endocrine/Hematology History: Reports: Hx Anticoagulant Therapy - plavix, Hx Anemia - possible Denies: Hx Diabetes, Hx Thyroid Disease Cardiovascular History: Reports: Hx Angina - has prn nitro, Hx Coronary Artery Disease - 2 stents- RCA stent 2006, LAD stent 2007, Hx Deep Vein Thrombosis, Hx Embolism, Hx Hypercholesterolemia, Hx Hypertension, Hx Myocardial Infarction, Hx Syncope, Other Cardiovascular Problems/Disorders - cardiac cath Denies: Hx Congestive Heart Failure, Hx Pacemaker/ICD, Hx Valvular Heart Disease Respiratory History: Reports: Hx Chronic Obstructive Pulmonary Disease (COPD) - Pt denies though providers have diagnosed it, Hx Pneumonia, Hx Pulmonary Embolism - and DVT 30 yrs ago, Hx Seasonal Allergies, Other Respiratory Problems /Disorders - SMOKER Denies: Hx Asthma, Hx Sleep Apnea GI History: Reports: Hx Diverticulosis, Hx Gastroesophageal Reflux Disease, Hx Hiatal Hernia - 3 surgeries, Other GI Disorders - achalasia, Fernández's esophagus , gastroparesis, J tube Denies: Hx Ulcer History: Reports: Hx Kidney Infection, Hx Kidney Stones - LAST 12/2015- NO PROBLEMS SINCE PER PATIENT Denies: Hx Dialysis, Hx Renal Disease, Other Problems/Disorders Musculoskeletal History: Reports: Hx Arthritis, Hx Back Problems, Other Musculoskeletal History - L1 fx Denies: Hx Osteoporosis Sensory History: Reports: Hx Cataracts - maryuri Denies: Hx Contacts or Glasses, Hx Hearing Aid Opthamlomology History: Reports: Hx Cataracts - maryuri Denies: Hx Contacts or Glasses Neurological History: Reports: Hx Spinal Cord Injury - L1, Hx Transient Ischemic Attacks (TIA), Other Neuro Impairments/Disorders - POSSIBLE SMALL TIA'S - 3 yrs ago Psychiatric History: Reports: Hx Anxiety Denies: Hx Panic Disorder - Cancer History Cancer Type, Location and Year: RT BREAST CA, 2009 HAD A BILATERAL MASTECTOMY Hx Chemotherapy: No Hx Radiation Therapy: No - Surgical History Surgery Procedure, Year, and Place: RT LUMPECTOMY 02/2010, BILATERAL MASTECTOMY ,. 2006& 2007 CARDIAC STENT AT [facility] IN [place],. LEFT KNEE SURGERY X10,. BILATERAL SHOULDER SURGERY,. ESPOHOGEAL SURGERY,1996, 2015. failed breast implant on left. PARTIAL HYSTERECTOMY, 1976. APPENDIX A CHILD,. CHEST TUBE, 1996. ESOPHAGEAL DILATION. NISSIN FUNDOLPICATION multiple. total left knee replacement 2015. kidney stone surgery. left chest wound surgery 2010. Insertion Infusaport 02/2018 Hx Anesthesia Reactions: No - Immunization History Date of Tetanus Vaccine: utd Date of Influenza Vaccine: fall 2016 Infectious Disease History: No Infectious Disease History: Reports: Hx Clostridium Difficile Denies: Hx Hepatitis, Hx Human Immunodeficiency Virus (HIV), Hx of Known/ Suspected MRSA, Hx Shingles, Hx Tuberculosis, Hx Known/Suspected VRE, Hx Known/ Suspected VRSA, History Other Infectious Disease, Traveled Outside the [place] in Last 30 Days - Family History Known Family History: Positive: Cardiac Disease - Father, 2 brothers - MS. Mother - AFIB, Hypertension, Diabetes - Social History Alcohol Use: None Hx Substance Use: No Substance Use Type: Reports: None Substance Use Comment - Amount & Last Used: prescribed Hx Tobacco Use: Yes Smoking Status (MU): Light Every Day Tobacco Smoker Type: Cigarettes Amount Used/How Often: 1/2 PPD Length of Time of Smoking/Using Tobacco: 40+ YEARS Have You Smoked in the Last Year: No Review of Systems Negative: Fever Positive: Chest Pain Positive: Abdominal Pain, Nausea. Negative: Vomiting, Diarrhea All Other Systems Reviewed And Are Negative: Yes Physical Exam - Summary Physical Exam Summary: VITAL SIGNS: Reviewed. GENERAL: Patient is a well-developed and nourished Female who is lying comfortable in the stretcher. Patient is not in any acute respiratory distress. HEAD AND FACE: No signs of trauma. No ecchymosis, hematomas or skull depressions. No sinus tenderness. EYES: PERRLA, EOMI x 2, No injected conjunctiva, no nystagmus. EARS: Hearing grossly intact. Ear canals and tympanic membranes are within normal limits. MOUTH: Oropharynx within normal limits. NECK: Supple, trachea is midline, no adenopathy, no JVD, no carotid bruit, no c- spine tenderness, neck with full ROM. CHEST: Symmetric, no tenderness at palpation LUNGS: Clear to auscultation bilaterally. No wheezing or crackles. CVS: Regular rate and rhythm, S1 and S2 present, no murmurs or gallops appreciated. ABDOMEN: Soft, non-tender. No signs of distention. No rebound no guarding, and no masses palpated. Bowel sounds are normal. Has feeding tube in upper abdomen . EXTREMITIES: FROM in all major joints, no edema, no cyanosis or clubbing. NEURO: Alert and oriented x 3. No acute neurological deficits. Speech is normal and follows commands. SKIN: Dry and warm Triage Information Reviewed: Yes Vital Signs On Initial Exam: Initial Vitals Temp Pulse Resp BP Pulse Ox 98.5 F 76 14 220/118 98 08/02/18 07:06 08/02/18 07:06 08/02/18 07:06 08/02/18 07:06 08/02/18 07:06 Vital Signs Reviewed: Yes Diagnostics - Vital Signs Vital Signs Temp Pulse Resp BP Pulse Ox 08/02/18 07:34 97 08/02/18 07:06 98.5 F 76 14 220/118 98 - Laboratory Result Diagrams: 08/02/18 07:57 08/02/18 07:57 Lab Statement: Any lab studies that have been ordered have been reviewed, and results considered in the medical decision making process. - Radiology Chest XR Xray Interpretation: No Acute Changes Radiology Interpretation Completed By: Radiologist - No active cardiopulmonary disease is noted. ED Provider has reviewed this report. - EKG 0755 Cardiac Rate: NL - 71 BPM EKG Rhythm: Sinus Rhythm EKG Interpretation: ST Depression B4-B6 Complex Multi-Symp Course/Dx Assessment/Plan: Past medical history significant for renal failure, DVT, CVAT, achalasia, dyslipidemia, seizure disorders, TIA, COPD, hypertension, Fernández's esophagus, breast cancer status post bilateral mastectomy, and CVA. In the ED course the patient was found to be very hypertensive. The patient was placed in a shoe cleaner, IV access was obtained, and she was given labetalol 20 mg x 2, and nitroglycerin for the chest pain. Blood work without any significant abnormality except for sodium level of 133, carbon dioxide 19, anion gap is 13 glucose 114, troponin is 0.01. The patient reported the mattress and did not help her pain therefore the patient was given morphine 4 mg 2 and Zofran as well as Reglan. She thinks is an exacerbation of the achalasia. However because of the hypertensive urgency I discussed the case with Dr. Rosas who accepted the patient for admission. - Diagnoses Differential Diagnoses/HQI/PQRI: Cardiac Ischemia, CVA, Metabolic Abnormality Provider Diagnoses: Hypertensive emergency, Chest pain - Physician Notifications Discussed Care Of Patient With: Paul Rosas - Hospitalist accepted patient. Time Discussed With Above Provider: 09:12 Instructed by Provider To: Admit As Inpatient - Hospitalist accepted patie Discharge - Sign-Out/Discharge Documenting (check all that apply): Patient Departure - Admit to Hospital - Discharge Plan Condition: Improved Disposition: ADMITTED TO [facility] Referrals: Trish Combs MD [Primary Care Provider] - - Billing Disposition and Condition Condition: IMPROVED Disposition: Admitted to [facility] - Attestation Statements Document Initiated by Kiarra: Yes Documenting Scribe: Kimo Long Provider For Whom Kiarra is Documenting (Include Credential): Polo Carrion MD Scribe Attestation: Kimo Chatterjee scribed for Polo Carrion MD on 08/02/18 at 1406. Scribe Documentation Reviewed: Yes Provider Attestation: The documentation as recorded by the Kimo vyas accurately reflects the service I personally performed and the decisions made by me, Polo Carrion MD
[2018-08-02 08:07] LABS: ABS Basophils 0 10^3/ul (0-0.2); ABS Eosinophils 0 10^3/ul (0-0.6); ABS Lymphocytes 0.7 10^3/ul (1.0-4.8); ABS Monocytes 0.3 10^3/ul (0-0.8); ABS Neutrophils 8.2 10^3/ul (1.5-7.7); ABS Nucleated RBC 0 10^3/ul; Eosinophil % 0 % (0-6); Hematocrit 41 % (35-47); Hemoglobin 14.4 g/dl (12.0-16.0); Lymphocyte % 7.5 % (25-47); Mean Corpuscular HGB Conc 35 g/dl (31-36); Mean Corpuscular Hemoglobin 30 pg (27-31); Mean Corpuscular Volume 86 fL (80-97); Mean Platelet Volume 7.8 um3 (7.4-10.4); Nucleated Red Blood Cells % 0.1; Platelet Count 304 10^3/ul (150-450); Red Blood Count 4.82 10^6/ul (4.00-5.40); Red Cell Distribution Width 14 % (10.5-15); White Blood Count 9.2 10^3/ul (3.5-10.8)
[2018-08-02] MEDS ORDERED: Ondansetron INJ* 2 MG/ML VIAL IV ONE (08:08)
[2018-08-02] MEDS ORDERED: Ondansetron INJ* 2 MG/ML VIAL ONE (08:10)
[2018-08-02] MEDS ORDERED: Morphine INJ* 4 MG/ML 1 ML SYRINGE (NEW SYRINGE VERSION) ONE (08:24)
[2018-08-02] MEDS ORDERED: Morphine INJ* 4 MG/ML 1 ML SYRINGE (NEW SYRINGE VERSION) IV ONE ×2 (08:25→10:00)
[2018-08-02 08:26] LABS: EGFR Non-African American 84.5 (>60)
--- NOTE | 2018-08-02 08:56 | RAD ---
Indication: Chest pain, hypertension. Single frontal view of the chest performed at 0753 hours was reviewed. Comparison is made with previous exam dated June 16, 2018. No mediastinal shift is noted. Heart is of normal size and configuration. Lung rivas appear clear. Patient appears to have a right breast implant. Central catheter is in place. IMPRESSION: NO ACTIVE CARDIOPULMONARY DISEASE IS NOTED.
[2018-08-02] MEDS ORDERED: Metoclopramide IV* 5 MG/ML 2 ML VIAL IV ONE (09:59)
[2018-08-02] MEDS ORDERED: Metoprolol Tartrate TAB* 100 MG TAB G TUBE SCH (10:00)
[2018-08-02] MEDS: Losartan TAB* 25 MG G TUBE SCH (10:09)
[2018-08-02] MEDS ORDERED: Morphine TAB Extended Release (*) 30 MG TAB.ER PO SCH (11:30)
[2018-08-02] MEDS: MORPHINE 20 MG/ML PO PRN ×4 (12:41→23:55)
[2018-08-02] MEDS ORDERED: hydrALAZINE IV* 20 MG/ML VIAL IV SLOW PU PRN (12:52)
[2018-08-02] MEDS ORDERED: amLODIPine TAB* 5 MG PO SCH (13:00)
[2018-08-02] MEDS ORDERED: amLODIPine TAB* 5 MG G TUBE SCH (13:30)
--- NOTE | 2018-08-02 13:30 | ADMNOTE ---
Subjective Date of Service: 08/02/18 Interval History: ADMISSION HISTORY AND PHYSICAL EXAM: Allergies Allergy/AdvReac Type Severity Reaction Status Date / Time albumin colloid, human Allergy Severe Anaphylatic Verified 08/02/18 07:15 Shock bee venom protein (honey bee) Allergy Severe Anaphylatic Verified 08/02/18 07:15 Shock Iodinated Contrast- Oral and Allergy Severe Anaphylatic Verified 08/02/18 07:15 IV Dye Shock onabotulinumtoxinA Allergy Severe Anaphylatic Verified 08/02/18 07:15 [From Botox] Shock Penicillins Allergy Severe Anaphylatic Verified 08/02/18 07:15 Shock shellfish derived Allergy Severe Anaphylatic Verified 08/02/18 07:15 Shock Adhesive Tape Allergy Mild Itching Verified 08/02/18 07:15 chlorhexidine Allergy Mild Rash And Verified 08/02/18 07:15 Itching latex Allergy Mild Hives Verified 08/02/18 07:15 NSAIDS (Non-Steroidal Allergy Mild Hives Verified 08/02/18 07:15 Anti-Inflamma povidone-iodine Allergy Mild Itching Verified 08/02/18 07:15 fentanyl Allergy Hallucinati Verified 08/02/18 07:15 ons ENVIRONMENTAL/SEASONAL Allergy Mild ITCHY,WATERY Uncoded 06/19/18 05:13 HAYFEVER EYES, SNEEZE, CONGESTION Home Medications Medication Instructions Recorded Confirmed Type Cyanocobalamin INJ * [Vitamin B12 1,000 mcg IM MONTHLY 05/31/15 08/02/18 History INJ *] Ondansetron ODT TAB* [Zofran 4 MG 4 mg PO Q8HR PRN 07/23/17 08/02/18 History Odt TAB*] Albuterol inh POWDER (NF) [Proair 2 puff INH Q4HR PRN 01/13/18 08/02/18 History Respiclick] EPINEPHrine [Epipen 2-Godwin] 0.3 mg IM ONCE PRN 01/13/18 08/02/18 History Ketotifen Fumarate [Allergy Eye 1 drop BOTH EYES BID PRN 01/13/18 08/02/18 History Drops] Lactose-Reduced Food/Fiber [Jevity 5 can J TUBE QPM 01/13/18 08/02/18 History 1.5 Pineda Liquid] Fluticasone NASAL SPRAY 50MCG* 2 spray BOTH NARES BID 03/12/18 08/02/18 History [Flonase NASAL SPRAY 50MCG*] Carisoprodol TAB* [Soma TAB*] 350 mg .SEE ORDER QID tab 04/19/18 08/02/18 Rx Clopidogrel TAB* [Plavix TAB*] 75 mg .SEE ORDER QAM tab 04/19/18 08/02/18 Rx Famotidine SUSP* [Pepcid SUSP*] 20 mg J TUBE DAILY #1 bottle 04/19/18 08/02/18 Rx Losartan TAB* [Cozaar TAB*] 50 mg J TUBE QAM #30 tab 04/19/18 08/02/18 Rx Metoprolol Tartrate TAB* 50 mg J TUBE Q12HR #60 tab 04/19/18 08/02/18 Rx [Lopressor TAB*] Nitroglycerin TAB 0.4 MG* 0.4 mg SL Q5M PRN #30 tab 04/19/18 08/02/18 Rx Prochlorperazine TAB* [Compazine 10 mg J TUBE BID PRN #30 tab 04/19/18 08/02/18 Rx Tab*] diphenhydrAMINE HCl [Benadryl 25 mg J TUBE Q6H PRN #1 bottle 04/19/18 08/02/18 Rx LIQUID 12.5 MG/5 ML] Acetaminophen TAB* [Tylenol TAB*] 650 mg J TUBE BID PRN 05/02/18 08/02/18 History Morphine TAB Extended Rel(*) [Ms 30 mg PO TID 05/02/18 08/02/18 History Contin(*)] Simvastatin 40 mg PO BEDTIME 05/20/18 08/02/18 History Morphine ORAL CONCENTRATE* 2.5 ml PO Q3H PRN 06/16/18 08/02/18 History HPI: The patient states she ran out of her morphine oral concentrate about 2-3 days ago, [facility]. The pain was tolerable until this AM when she called the ambulance due to severe pain. The pain is her usual chest pain. She did not take her AM meds this AM. Family History: Findings - CAD,DVA,breast ca Social History: Findings - , 2 children. Lives alone, Daughter Viola Mcmahan is her SDM. Past Medical History: Findings - Achalasia, BL breast ca with BL mastectomies, CAD with stent, DVT, PE, COPD, HTN, HL, nephrolithiasis. Review of Systems - Measurements Intake and Output: Intake and Output Last 24 Hours 07/31/18 08/01/18 08/02/18 08/03/18 06:59 06:59 06:59 06:59 Intake Total 2 Balance 2 Weight 100 lb Intake: IV Fluids 2 - Review of Systems Constitutional Symptoms: Negative: Weight Gain, Weight Loss, Weakness, Fatigue, Fever, Night Sweats, Unexplained Falls, Other Dermatology: Positive: Normal HEENT: Positive: Normal Eyes: Positive: Normal Thyroid: Positive: Normal Pulmonary: Positive: Normal Cardiology: Positive: Chest Pain Gastroenterology: Positive: Abdominal Pain Genital - Urinary: Positive: Normal Musculoskeletal: Negative: Joint Pain, Joint Stiffness, Arthritis, Osteoporosis, Low Back Pain , Sciatica, Joint Deformities, Kyphoscoliosis, Other Endocrinology: Positive: Normal Hematologic/Lymphatic: Negative: Anemia, Easy Brusing, Hx Leukemia, Hx Lymphoma, Use of Anticoagulant, Use of Antiplatelet Drugs, Other Neurology: Positive: Normal Psychiatry: Positive: Normal Allergic/Immunologic: Negative: Hx Anaphylaxis, Hx Angioedema, Hx Environmental, Hx Seasonal, Athsma, Hx HIV, Immunocompromise, Swollen Glands LymphNodes, Other Objective Active Medications: Amlodipine Besylate (Norvasc Tab*) 10 mg G TUBE DAILY [facility] Carisoprodol (Soma Tab*) 350 mg .SEE ORDER QID [facility] Clopidogrel Bisulfate (Plavix Tab*) 75 mg .SEE ORDER QAM [facility] Hydralazine HCl (Apresoline Iv*) 25 mg IV SLOW PU Q6H PRN PRN Reason: SYSTOLIC BP GREATER THAN: Losartan Potassium (Cozaar Tab*) 100 mg G TUBE DAILY [facility] Last Admin: 08/02/18 10:09 Dose: 100 mg Metoprolol Tartrate (Lopressor Tab*) 100 mg G TUBE BID [facility] Last Admin: 08/02/18 10:09 Dose: 100 mg Morphine Sulfate (Morphine Oral Concentrate*) 50 mg PO Q3H PRN PRN Reason: PAIN Last Admin: 08/02/18 12:41 Dose: 50 mg Morphine Sulfate (Ms Contin(*)) 30 mg PO TID [facility] Last Admin: 08/02/18 11:49 Dose: 30 mg Vital Signs - 8 hr 08/02/18 08/02/18 08/02/18 07:06 07:34 07:36 Temperature 98.5 F Pulse Rate 77 76 Respiratory 15 14 Rate Blood Pressure 240/128 232/123 (mmHg) O2 Sat by Pulse 96 97 98 Oximetry 08/02/18 08/02/18 08/02/18 08:00 08:06 08:26 Temperature Pulse Rate 74 73 Respiratory 21 20 18 Rate Blood Pressure 233/118 (mmHg) O2 Sat by Pulse 96 96 Oximetry 08/02/18 08/02/18 08/02/18 08:36 09:00 09:06 Temperature Pulse Rate 72 69 70 Respiratory 21 17 18 Rate Blood Pressure 202/115 165/99 (mmHg) O2 Sat by Pulse 95 94 94 Oximetry 08/02/18 08/02/18 08/02/18 09:32 09:36 10:00 Temperature Pulse Rate 67 67 68 Respiratory 19 16 21 Rate Blood Pressure 229/120 230/122 (mmHg) O2 Sat by Pulse 97 96 95 Oximetry 08/02/18 08/02/18 08/02/18 10:06 10:07 10:36 Temperature Pulse Rate 66 68 Respiratory 21 16 16 Rate Blood Pressure 215/127 227/119 (mmHg) O2 Sat by Pulse 96 96 Oximetry 08/02/18 08/02/18 08/02/18 11:00 11:06 11:37 Temperature Pulse Rate 63 64 62 Respiratory 17 16 17 Rate Blood Pressure 221/118 217/109 (mmHg) O2 Sat by Pulse 96 96 96 Oximetry 08/02/18 08/02/18 08/02/18 12:00 12:06 12:20 Temperature Pulse Rate 61 64 63 Respiratory 18 14 18 Rate Blood Pressure 237/119 256/124 (mmHg) O2 Sat by Pulse 96 97 98 Oximetry 08/02/18 08/02/18 12:36 12:41 Temperature Pulse Rate 60 Respiratory 22 19 Rate Blood Pressure 239/121 (mmHg) O2 Sat by Pulse 96 Oximetry Oxygen Devices in Use Now: None Appearance: Alert, partly up on ED stretcher. Looks discouraged. Eyes: No Scleral Icterus Ears/Nose/Mouth/Throat: Clear Oropharnyx, Mucous Membranes Moist Neck: NL Appearance and Movements; NL JVP, No Thyroid Enlargement, Masses Respiratory: Symmetrical Chest Expansion and Respiratory Effort, Clear to Auscultation, Clear to Percussion Cardiovascular: NL Sounds; No Murmurs; No JVD, RRR, No Edema, - Abdominal: - - G-tube in place Extremities: No Edema, No Clubbing, Cyanosis, - Skin: No Rash or Ulcers, No Nodules or Sclerosis, - Neurological: Alert and Oriented x 3, NL Sensation Result Diagrams: 08/02/18 07:57 08/02/18 07:57 Assess/Plan/Problems-Billing Assessment: - Patient Problems (1) Achalasia Current Visit: No Status: Chronic Code(s): K22.0 - ACHALASIA OF CARDIA SNOMED Code(s): 58547269 Comment: Had esophagus/stomach dilatation early 07/08. Increase MS ER to 60 mg tid (2) COPD (chronic obstructive pulmonary disease) Current Visit: No Status: Chronic Code(s): J44.9 - CHRONIC OBSTRUCTIVE PULMONARY DISEASE, UNSPECIFIED SNOMED Code(s): 60340635 Comment: - No evidence of acute exacerbation. - Continue PRN albuterol. (3) CAD (coronary artery disease) Current Visit: No Status: Chronic Code(s): I25.10 - ATHSCL HEART DISEASE OF [place] CORONARY ARTERY W/O ANG PCTRS SNOMED Code(s): 41323609 Comment: - Continue clopidogrel, metoprolol, statin. (4) HTN (hypertension) Current Visit: No Status: Chronic Code(s): I10 - ESSENTIAL (PRIMARY) HYPERTENSION SNOMED Code(s): 21754189 Comment: Severe HTN may be related to her uncontrolled pain. Losartan and metoprolol doubled. Started amlodipine 08/02. Start doxazosin hs 08/02.
[2018-08-02] MEDS: Carisoprodol TAB* 350 MG SCH ×3 (13:39→20:21)
[2018-08-02] MEDS ORDERED: Morphine TAB Extended Release (*) 30 MG TAB.ER PO ONE (13:43)
[2018-08-02] MEDS ORDERED: Albuterol HFA INHALER* 8 gm MDI INH PRN (13:52)
[2018-08-02] MEDS ORDERED: Ondansetron INJ* 2 MG/ML VIAL IV PRN (19:03)
[2018-08-02] MEDS: Metoprolol Tartrate TAB* 50 mg J TUBE SCH (20:16)
[2018-08-02] MEDS: Morphine TAB Extended Release (*) 30 MG TAB.ER PO SCH (20:20)
[2018-08-02] MEDS ORDERED: Doxazosin TAB* 2 MG PO SCH (21:00)
[2018-08-02] MEDS ORDERED: NS 0.9% 1000 ML* 500 ML IV ONE (23:29)
[2018-08-03 02:01] LABS: Urine Appearance Cloudy; Urine Blood 1+ (Negative); Urine Color Amber; Urine Ketones Negative (Negative); Urine Protein 2+(100 mg/dL) (Negative); Urine Red Blood Cell 1+(3-5/hpf) (Absent); Urine Specific Gravity 1.016 (1.010-1.030); Urine Urobilinogen Negative (Negative); Urine White Blood Cell 2+(11-20/hpf) (Absent)
[2018-08-03] MEDS ORDERED: NS 0.9% 500 ML* 500 ML IV ONE (03:00)
[2018-08-03] MEDS: Morphine TAB Extended Release (*) 30 MG TAB.ER PO SCH ×3 (05:49→21:48)
[2018-08-03] MEDS: MORPHINE 20 MG/ML PO PRN ×5 (05:49→21:49)
[2018-08-03] MEDS: Metoprolol Tartrate TAB* 50 mg J TUBE SCH (08:01)
--- NOTE | 2018-08-03 08:28 | PN ---
Subjective Date of Service: 08/03/18 Interval History: Pain control fair. Appetite OK. She has noticed she is making less urine than usual but feels her oral intake is about the same as usual. Family History: Findings - CAD,DVA,breast ca Social History: Findings - , 2 children. Lives alone, Daughter Viola Mcmahan is her SDM. Past Medical History: Findings - Achalasia, BL breast ca with BL mastectomies, CAD with stent, DVT, PE, COPD, HTN, HL, nephrolithiasis. Objective Active Medications: Albuterol (Ventolin Hfa Inhaler*) 2 puff INH Q4HR PRN PRN Reason: WHEEZING Carisoprodol (Soma Tab*) 350 mg .SEE ORDER QID [facility] Last Admin: 08/02/18 20:21 Dose: 350 mg Clopidogrel Bisulfate (Plavix Tab*) 75 mg .SEE ORDER QAM [facility] Losartan Potassium (Cozaar Tab*) 100 mg G TUBE DAILY [facility] Last Admin: 08/02/18 10:09 Dose: 100 mg Metoprolol Tartrate (Lopressor Tab*) 50 mg J TUBE Q12HR [facility] Last Admin: 08/03/18 08:01 Dose: Not Given Morphine Sulfate (Morphine Oral Concentrate*) 50 mg PO Q3H PRN PRN Reason: PAIN Last Admin: 08/03/18 05:49 Dose: 50 mg Morphine Sulfate (Ms Contin(*)) 60 mg PO 0600,1400,2200 [facility] Last Admin: 08/03/18 05:49 Dose: 60 mg Ondansetron HCl (Zofran Inj*) 4 mg IV Q4H PRN PRN Reason: NAUSEA Last Admin: 08/02/18 19:26 Dose: 4 mg Vital Signs - 8 hr 08/03/18 08/03/18 08/03/18 01:42 03:05 05:49 Temperature 98.3 F Pulse Rate 72 Respiratory 16 16 18 Rate Blood Pressure 86/48 (mmHg) O2 Sat by Pulse 95 Oximetry 08/03/18 08/03/18 08/03/18 07:46 07:57 08:00 Temperature 98.6 F Pulse Rate 74 Respiratory 16 15 15 Rate Blood Pressure 86/47 (mmHg) O2 Sat by Pulse 95 Oximetry Oxygen Devices in Use Now: None Appearance: Alert, sititng up in bed. In good spirits. Looks comfortable. Eyes: No Scleral Icterus Respiratory: Symmetrical Chest Expansion and Respiratory Effort, Clear to Auscultation, Clear to Percussion Cardiovascular: NL Sounds; No Murmurs; No JVD, RRR, No Edema, - Abdominal: NL Sounds; No Tenderness; No Distention, No Hepatosplenomegaly, - - G -tube in place. Extremities: No Edema, No Clubbing, Cyanosis, - Skin: No Rash or Ulcers, No Nodules or Sclerosis, - Neurological: Alert and Oriented x 3, NL Sensation Result Diagrams: 08/02/18 07:57 08/03/18 07:43 Assess/Plan/Problems-Billing Assessment: - Patient Problems (1) Achalasia Current Visit: No Status: Chronic Code(s): K22.0 - ACHALASIA OF CARDIA SNOMED Code(s): 14472828 Comment: Had esophagus/stomach dilatation early 07/08. Continue new dose MS ER 60 mg tid, (2) COPD (chronic obstructive pulmonary disease) Current Visit: No Status: Chronic Code(s): J44.9 - CHRONIC OBSTRUCTIVE PULMONARY DISEASE, UNSPECIFIED SNOMED Code(s): 96744726 Comment: - No evidence of acute exacerbation. - Continue PRN albuterol. (3) CAD (coronary artery disease) Current Visit: No Status: Chronic Code(s): I25.10 - ATHSCL HEART DISEASE OF [place] CORONARY ARTERY W/O ANG PCTRS SNOMED Code(s): 32702718 Comment: - Continue clopidogrel, metoprolol, statin. (4) HTN (hypertension) Current Visit: No Status: Chronic Code(s): I10 - ESSENTIAL (PRIMARY) HYPERTENSION SNOMED Code(s): 93280713 Comment: Severe HTN may be related to her uncontrolled pain. Losartan and metoprolol doubled. Amlodipine 10 mg given 08/02 13:39 hrs then d/c'd. Doxazosin given 08/02 20:21 hrs, then d/c'd. Metoprolol and losartan on hold unitl BP > 100 systolic. (5) Dehydration Current Visit: Yes Status: Acute Code(s): E86.0 - DEHYDRATION SNOMED Code( s): 75341701 Comment: 1 L NSS ordered 08/03. BMP for 08/03.
[2018-08-03 08:43] LABS: EGFR Non-African American 46.3 (>60)
[2018-08-03] MEDS ORDERED: NS 0.9% 1000 ML* 1,000 ML IV SCH (09:00)
[2018-08-03] MEDS ORDERED: Losartan TAB* 25 MG G TUBE SCH (09:00)
[2018-08-03] MEDS ORDERED: amLODIPine TAB* 5 MG G TUBE SCH (09:00)
[2018-08-03] MEDS: Carisoprodol TAB* 350 MG SCH ×4 (09:25→21:48)
[2018-08-03] MEDS: Clopidogrel TAB* 75 MG SCH (09:25)
[2018-08-03] MEDS: Losartan TAB* 25 MG G TUBE SCH (09:31)
[2018-08-03] MEDS: Metoprolol Tartrate TAB* 25 MG PO SCH (21:39)
[2018-08-04] MEDS: MORPHINE 20 MG/ML PO PRN ×4 (03:34→12:52)
[2018-08-04] MEDS: Morphine TAB Extended Release (*) 30 MG TAB.ER PO SCH (06:00)
[2018-08-04 06:56] LABS: EGFR Non-African American 97.2 (>60)
[2018-08-04] MEDS: Losartan TAB* 25 MG G TUBE SCH (09:42)
[2018-08-04] MEDS: Carisoprodol TAB* 350 MG SCH ×2 (09:43→12:53)
[2018-08-04] MEDS: Metoprolol Tartrate TAB* 25 MG PO SCH (09:43)
[2018-08-04] MEDS: Clopidogrel TAB* 75 MG SCH (09:43)
[2018-08-04] MEDS ORDERED: MORPHINE 20 MG/ML ONE (12:00)
--- NOTE | 2018-08-04 12:20 | PN ---
"Progress Note - Progress Note Date of Service: 08/04/18 Note: Time spent on discharge 40 minutes, including exam of the patient, discussion with the pt, nurse, CM, retail pharmacy, review of ISTOP and the EMR and preparation of discharge documents. Search Terms: les prasad, 1955 Search Date: 08/04/2018 12:18:59 PM The Drug Utilization Report below displays all of the controlled substance prescriptions, if any, that your patient has filled in the last twelve months. The information displayed on this report is compiled from pharmacy submissions to the Department, and accurately reflects the information as submitted by the pharmacies. This report was requested by: Adam Rosas | Reference #: [id number] My Prescriptions Patient Name: Les Prasad Date: 1955 Address: [address] [place] [address] Sex: Female Rx Written Rx Dispensed Drug Quantity Days Supply Prescriber Name 10/30/2017 11/08/2017 morphine sulf 100 mg/5 ml (20 mg/ml) solution 360ml 24 Adam Rosas Patient Name: Les Prasad Date: 1955 Address: [address] [place] [id number] Sex: Female Rx Written Rx Dispensed Drug Quantity Days Supply Prescriber Name 08/18/2017 08/23/2017 morphine sulf 100 mg/5 ml (20 mg/ml) solution 90ml 30 Adam Rosas MD 08/18/2017 08/18/2017 morphine sulf 100 mg/5 ml (20 mg/ml) solution 30ml 2 Adam Rosas MD Others' Prescriptions Patient Name: Les Prasad Date: 1955 Address: [address] [place] [address] Sex: Female Rx Written Rx Dispensed Drug Quantity Days Supply Prescriber Name 06/18/2018 07/03/2018 morphine sulf 100 mg/5 ml (20 mg/ml) solution 450ml 30 Su Talbot 06/18/2018 07/03/2018 morphine sulf er 30 mg tablet 90 30 Su Talbot 06/18/2018 07/03/2018 carisoprodol 350 mg tablet 120 30 Su [facility] 05/21/2018 05/22/2018 morphine sulf 100 mg/5 ml (20 mg/ml) solution 450ml 30 Talbot[facility] ruizannie 05/21/2018 05/22/2018 morphine sulf er 30 mg tablet 90 30 [facility] Su 05/21/2018 05/22/2018 carisoprodol 350 mg tablet 120 30 [facility] Su 04/18/2018 04/21/2018 morphine sulf 100 mg/5 ml (20 mg/ml) solution 450ml 30 [facility] Su 04/18/2018 04/19/2018 morphine sulf er 30 mg tablet 90 30 [facility] Su 04/18/2018 04/19/2018 carisoprodol 350 mg tablet 120 30 [facility] 03/13/2018 03/19/2018 morphine sulf 100 mg/5 ml (20 mg/ml) solution 450ml 30 [facility] Su 03/13/2018 03/13/2018 morphine sulf er 30 mg tablet 90 30 [facility] Su 03/13/2018 03/13/2018 carisoprodol 350 mg tablet 120 30 [facility] 02/07/2018 02/16/2018 morphine sulf 100 mg/5 ml (20 mg/ml) solution 450ml 30 [facility] Su 02/07/2018 02/09/2018 morphine sulf er 30 mg tablet 90 30 [facility] Su 02/07/2018 02/09/2018 carisoprodol 350 mg tablet 120 30 [facility] Su 01/08/2018 01/09/2018 morphine sulf 100 mg/5 ml (20 mg/ml) solution 450ml 30 [facility] Su 01/08/2018 01/08/2018 morphine sulf er 30 mg tablet 90 30 [facility] Su 01/08/2018 01/08/2018 carisoprodol 350 mg tablet 120 30 [facility] Su 12/03/2017 12/06/2017 morphine sulf 100 mg/5 ml (20 mg/ml) solution 360ml 24 [facility] Su 12/03/2017 12/03/2017 morphine sulf er 30 mg tablet 90 30 Su [facility]bot 12/03/2017 12/03/2017 carisoprodol 350 mg tablet 120 30 Su Talbot 10/28/2017 10/30/2017 morphine sulf er 30 mg tablet 90 30 [facility]bot[facility] lang 10/28/2017 10/30/2017 carisoprodol 350 mg tablet 120 30 [facility] Talbotannie 09/23/2017 09/24/2017 morphine sulf 100 mg/5 ml (20 mg/ml) solution 360ml 30 BlegenTrish MD 09/23/2017 09/24/2017 morphine sulf er 60 mg tablet 90 30 BlegenTrish MD 09/23/2017 09/24/2017 carisoprodol 350 mg tablet 90 30 BlegenTrish MD 09/17/2017 09/18/2017 morphine sulfate ir 15 mg tab 42 7 BlegenTrish MD 08/21/2017 09/03/2017 morphine sulf er 60 mg tablet 90 30 BlegenTrish MD Patient Name: Les Prasad Date: 1955 Address: [address] [place] [address] Sex: Female Rx Written Rx Dispensed Drug Quantity Days Supply Prescriber Name 08/21/2017 08/23/2017 carisoprodol 350 mg tablet 90 30 BlegenTrish MD * - Drugs marked with an asterisk are compound drugs. If the compound drug is made up of more than one controlled substance, then each controlled substance will be a separate row in the"
[2018-08-04 13:04] VITALS: BP 135/73
--- NOTE | 2018-08-05 03:49 | DS ---
CC: Dr. Combs * DISCHARGE SUMMARY: DATE OF ADMISSION: DATE OF DISCHARGE: 08/04/18 HOSPITAL COURSE: This 63-year-old woman ran out of her morphine oral concentrate 2 or 3 days before admission. The pharmacy had to order some and she is waiting for it to arrive, so she could pick it up. The pain became intolerable and she called the ambulance. The pain is her usual chest pain from achalasia. I note she has been on escalating doses of morphine sulfate for many months. Also on the day of admission, she did not take her morning blood pressure medicines. The patient had severe hypertension on admission and she was given a number of medications. She was also given amlodipine 10 mg p.o. in addition to increased doses of losartan and metoprolol. Her blood pressure actually became quite low. I think she may be very sensitive to the effects of amlodipine. Pain control was improved with increase of her morphine extended release tablets to 60 mg every 8 hours. FINAL DIAGNOSES: 1. Achalasia. 2. Hypertension. DISCHARGE MEDICATIONS: 1. Morphine extended release 30 mg 2 tablets every 8 hours. 2. Vitamin B12 injection 1000 mcg IM monthly. 3. Ondansetron ODT 4 mg every 8 hours p.r.n. 4. Epinephrine 0.3 mg IM p.r.n. 5. Jevity 1.5, 5 cans by tube as directed. 5. Albuterol powder 2 puffs every 4 hours p.r.n. 6. Allergy eye drops 1 drop both eyes b.i.d. p.r.n. 7. Fluticasone nasal spray 2 sprays both nares b.i.d. 8. Carisoprodol 350 mg four times a day. 9. Clopidogrel 75 mg daily. 10. Famotidine 20 mg daily. 11. Metoprolol 50 mg b.i.d. 12. Diphenhydramine liquid 25 mg every 6 hours p.r.n. 13. Losartan 50 mg daily. 14. Nitroglycerin 0.4 mg sublingual every 5 minutes p.r.n. 15. Prochlorperazine 10 mg b.i.d. p.r.n. 16. Acetaminophen 650 mg b.i.d. p.r.n. 17. Simvastatin 40 mg h.s. 18. Morphine oral concentrate 2.5 mg or 50 mg every 3 hours p.r.n. DISCHARGE CONDITION: stable DISCHARGE DISPOSITION: home [id number]/[facility] #: [id number] MTDDionicio
== END 2018-08-04 13:40 | disposition home health service (06) | DRG 243 ==
LOC: ED 06:44 → MED 16:44
PROVIDERS: ADMIT Internal Medicine; ATTEND Internal Medicine
DX: K22.0 Achalasia of cardia (principal); I10 Essential (primary) hypertension; R11.0 Nausea; I25.10 Atherosclerotic heart disease of native coronary artery without angina pectoris; J44.9 Chronic obstructive pulmonary disease, unspecified; J30.2 Other seasonal allergic rhinitis; K57.90 Diverticulosis of intestine, part unspecified, without perforation or abscess without bleeding; K21.9 Gastro-esophageal reflux disease without esophagitis; K22.70 Barrett's esophagus without dysplasia; K31.84 Gastroparesis; M19.90 Unspecified osteoarthritis, unspecified site; H26.9 Unspecified cataract; F41.9 Anxiety disorder, unspecified; Z96.652 Presence of left artificial knee joint; F17.210 Nicotine dependence, cigarettes, uncomplicated; E78.5 Hyperlipidemia, unspecified; E86.0 Dehydration; Z86.711 Personal history of pulmonary embolism; Z86.73 Personal history of transient ischemic attack (TIA), and cerebral infarction without residual deficits; Z85.3 Personal history of malignant neoplasm of breast; Z90.13 Acquired absence of bilateral breasts and nipples; Z90.710 Acquired absence of both cervix and uterus; Z82.49 Family history of ischemic heart disease and other diseases of the circulatory system; Z83.3 Family history of diabetes mellitus; Z79.02 Long term (current) use of antithrombotics/antiplatelets; Z88.3 Allergy status to other anti-infective agents; Z91.030 Bee allergy status; Z91.041 Radiographic dye allergy status; Z91.040 Latex allergy status; Z88.0 Allergy status to penicillin; Z91.013 Allergy to seafood; Z88.8 Allergy status to other drugs, medicaments and biological substances; Z91.018 Allergy to other foods; Z91.048 Other nonmedicinal substance allergy status; Z91.09 Other allergy status, other than to drugs and biological substances; Z95.5 Presence of coronary angioplasty implant and graft; I25.2 Old myocardial infarction; Z87.01 Personal history of pneumonia (recurrent); Z87.442 Personal history of urinary calculi; Z79.51 Long term (current) use of inhaled steroids; Z79.891 Long term (current) use of opiate analgesic; Z80.3 Family history of malignant neoplasm of breast; Z86.718 Personal history of other venous thrombosis and embolism
CPT/HCPCS: 36415; 71045; 80048; 80053; 81003; 81015; 82550; 82553; 83605; 83735; 84443; 84484; 85025; 87086; 93005; 99285; A9270-GY; J1642; J2270; J2405; J2765

== ENCOUNTER 2018-10-09 14:31 | Emergency (ER) | payer OTHER ==
[2018-10-09] MEDS ORDERED: NS 0.9% 1000 ML* 1,000 ML IV ONE (15:15)
--- NOTE | 2018-10-09 15:31 | ED ---
HPI Chest Pain - HPI Summary HPI Summary: A 63 y/o female presents to [facility] with a chief complaint of CP on 10/09/18. She also c/o N/V, abd pain and was heaving at triage. She was referred to the ED by her PCP. The patient claims that she has been unable to eat, but states that she has been able to drink and take her medication. She rates her pain as a 9/ 10. - History of Current Complaint Chief Complaint: EDNauseaVomitDiarrh Time Seen by Provider: 10/09/18 15:03 Timing: Constant, Lasting Hours Initial Severity: Severe Current Severity: Severe Pain Intensity: 9 Pain Scale Used: 0-10 Numeric Chest Pain Location: Diffuse Chest Pain Radiates: No - Additional Pertinent History Primary Care Physician: ERIKA - Allergy/Home Medications Allergies/Adverse Reactions: Allergies Allergy/AdvReac Type Severity Reaction Status Date / Time albumin colloid, human Allergy Severe Anaphylatic Verified 10/09/18 14:34 Shock bee venom protein (honey bee) Allergy Severe Anaphylatic Verified 10/09/18 14:34 Shock Iodinated Contrast- Oral and Allergy Severe Anaphylatic Verified 10/09/18 14:34 IV Dye Shock onabotulinumtoxinA Allergy Severe Anaphylatic Verified 10/09/18 14:34 [From Botox] Shock Penicillins Allergy Severe Anaphylatic Verified 10/09/18 14:34 Shock shellfish derived Allergy Severe Anaphylatic Verified 10/09/18 14:34 Shock Adhesive Tape Allergy Mild Itching Verified 10/09/18 14:34 chlorhexidine Allergy Mild Rash And Verified 10/09/18 14:34 Itching latex Allergy Mild Hives Verified 10/09/18 14:34 NSAIDS (Non-Steroidal Allergy Mild Hives Verified 10/09/18 14:34 Anti-Inflamma povidone-iodine Allergy Mild Itching Verified 10/09/18 14:34 fentanyl Allergy Hallucinati Verified 10/09/18 14:34 ons ENVIRONMENTAL/SEASONAL Allergy Mild ITCHY,WATERY Uncoded 10/09/18 14:34 HAYFEVER EYES, SNEEZE, CONGESTION PMH/Surg Hx/FS Hx/Imm Hx Endocrine/Hematology History: Reports: Hx Anticoagulant Therapy - plavix, Hx Anemia - possible Denies: Hx Diabetes, Hx Thyroid Disease Cardiovascular History: Reports: Hx Angina - has prn nitro, Hx Coronary Artery Disease - 2 stents- RCA stent 2006, LAD stent 2007, Hx Deep Vein Thrombosis, Hx Embolism, Hx Hypercholesterolemia, Hx Hypertension, Hx Myocardial Infarction, Hx Syncope, Other Cardiovascular Problems/Disorders - cardiac cath Denies: Hx Congestive Heart Failure, Hx Pacemaker/ICD, Hx Valvular Heart Disease Respiratory History: Reports: Hx Chronic Obstructive Pulmonary Disease (COPD) - Pt denies though providers have diagnosed it, Hx Pneumonia, Hx Pulmonary Embolism - and DVT 30 yrs ago, Hx Seasonal Allergies, Other Respiratory Problems /Disorders - SMOKER Denies: Hx Asthma, Hx Sleep Apnea GI History: Reports: Hx Diverticulosis, Hx Gastroesophageal Reflux Disease, Hx Hiatal Hernia - 3 surgeries, Other GI Disorders - achalasia, Fernández's esophagus , gastroparesis, J tube Denies: Hx Ulcer History: Reports: Hx Kidney Infection, Hx Kidney Stones - LAST 12/2015- NO PROBLEMS SINCE PER PATIENT Denies: Hx Dialysis, Hx Renal Disease, Other Problems/Disorders Musculoskeletal History: Reports: Hx Back Problems, Other Musculoskeletal History - L1 fx Denies: Hx Arthritis, Hx Osteoporosis Sensory History: Reports: Hx Cataracts - maryuri Denies: Hx Contacts or Glasses, Hx Hearing Aid Opthamlomology History: Reports: Hx Cataracts - maryuri Denies: Hx Contacts or Glasses Neurological History: Reports: Hx Spinal Cord Injury - L1, Hx Transient Ischemic Attacks (TIA), Other Neuro Impairments/Disorders - POSSIBLE SMALL TIA'S - 3 yrs ago Psychiatric History: Reports: Hx Anxiety Denies: Hx Panic Disorder - Cancer History Cancer Type, Location and Year: RT BREAST CA, 2009 HAD A BILATERAL MASTECTOMY Hx Chemotherapy: No Hx Radiation Therapy: No - Surgical History Surgery Procedure, Year, and Place: RT LUMPECTOMY 02/2010, BILATERAL MASTECTOMY ,. 2006& 2007 CARDIAC STENT AT [facility] IN [place],. LEFT KNEE SURGERY X10,. BILATERAL SHOULDER SURGERY,. ESPOHOGEAL SURGERY,1996, 2015. failed breast implant on left. PARTIAL HYSTERECTOMY, 1976. APPENDIX A CHILD,. CHEST TUBE, 1996. ESOPHAGEAL DILATION. NISSIN FUNDOLPICATION multiple. total left knee replacement 2015. kidney stone surgery. left chest wound surgery 2010. Insertion Infusaport 02/2018 Hx Anesthesia Reactions: No - Immunization History Date of Tetanus Vaccine: utd Date of Influenza Vaccine: fall 2016 Infectious Disease History: No Infectious Disease History: Reports: Hx Clostridium Difficile Denies: Hx Hepatitis, Hx Human Immunodeficiency Virus (HIV), Hx of Known/ Suspected MRSA, Hx Shingles, Hx Tuberculosis, Hx Known/Suspected VRE, Hx Known/ Suspected VRSA, History Other Infectious Disease, Traveled Outside the [place] in Last 30 Days - Family History Known Family History: Positive: None, Cardiac Disease - Father, 2 brothers - [place]. Mother - AFIB, Hypertension, Diabetes - Social History Alcohol Use: None Hx Substance Use: No Substance Use Type: Reports: None Substance Use Comment - Amount & Last Used: prescribed Hx Tobacco Use: Yes Smoking Status (MU): Current Every Day Smoker Type: Cigarettes Amount Used/How Often: 1/2 PPD Length of Time of Smoking/Using Tobacco: 40+ YEARS Have You Smoked in the Last Year: No Review of Systems Negative: Fever Positive: Chest Pain Positive: Abdominal Pain, Vomiting, Nausea, Other - positive: heaving All Other Systems Reviewed And Are Negative: Yes Physical Exam - Summary Physical Exam Summary: Appearance: The patient is thin in no acute distress and in no acute pain. Skin: The skin is pale. HEENT: The head is normocephalic and atraumatic. The pupils are equal and reactive. The conjunctivae are clear and without drainage. Nares are patent and without drainage. Mouth reveals moist mucous membranes and the throat is without erythema and exudate. The external ears are intact. The ear canals are patent and without drainage. The tympanic membranes are intact. Neck: The neck is supple with full range of motion and non-tender. There are no carotid bruits. There is no neck vein distension. Respiratory: Chest is non-tender. Lungs are clear to auscultation and breath sounds are symmetrical and equal. Cardiovascular: Heart is regular rate and rhythm. There is no murmur or rub auscultated. There is no peripheral edema and pulses are symmetrical and equal. Abdomen: J-tube site is clean. The abdomen is soft and non-tender. There are active bowel sounds heard in all four quadrants and there is no organomegaly palpated. Musculoskeletal: There is no back tenderness noted. Extremities are non-tender with full range of motion. There is good capillary refill. There is no peripheral edema or calf tenderness elicited. Neurological: Patient is alert and oriented to person, place and time. The patient has symmetrical motor strength in all four extremities. Cranial nerves are grossly intact. Deep tendon reflexes are symmetrical and equal in all four extremities. Psychiatric: The patient has an appropriate affect and does not exhibit any anxiety or depression. Triage Information Reviewed: Yes Vital Signs On Initial Exam: Initial Vitals Temp Pulse Resp BP Pulse Ox 97.6 F 73 16 160/120 96 10/09/18 14:34 10/09/18 14:34 10/09/18 14:34 10/09/18 14:34 10/09/18 14:34 Vital Signs Reviewed: Yes Diagnostics - Vital Signs Vital Signs Temp Pulse Resp BP Pulse Ox 10/09/18 15:09 62 217/112 97 10/09/18 15:08 62 97 10/09/18 14:34 97.6 F 73 16 160/120 96 - Laboratory Result Diagrams: 10/09/18 15:55 10/09/18 15:55 Lab Statement: Any lab studies that have been ordered have been reviewed, and results considered in the medical decision making process. Re-Evaluation - Re-Evaluation First Eval Re-Evaluation Time: 18:35 Change: Improved Comment: Patient is ready for discharge Chest Pain Course/Dx - Course Course Of Treatment: Ms. Prasad presented with the same complaint that she's had many times before. She has intractable epigastric/chest pain which is been attributed to achalasia. She has been seeing Dr. Ayala who has been trying to find appropriate pain medications for her. She was sent in today with a concern that she might be getting dehydrated she's not been able to eat. She was nontoxic in appearance on arrival and her vital signs were stable aside from an elevated blood pressure which she states and the record corroborates that she chronically has especially during these episodes. IV was initiated and labs were checked and normal. She was given IV fluids as well as pain medication and nausea medication. She didn't improve and wanted to be discharged although her pressure remained high. I spoke with Dr. Ayala felt that symptomatic treatment was appropriate and he will follow-up. - Diagnoses Provider Diagnoses: Abdominal pain Discharge - Sign-Out/Discharge Documenting (check all that apply): Patient Departure - DC - Discharge Plan Condition: Stable Disposition: HOME Referrals: Trish Combs MD [Primary Care Provider] - (2-3 days) Douglas Ayala MD [Medical Doctor] - (2-3 days) Additional Instructions: Follow up with Dr. Ayala. Return to the ED if you experience any new or worsening symptoms. - Billing Disposition and Condition Condition: STABLE Disposition: Home - Attestation Statements Document Initiated by Kiarra: Yes Documenting Scribe: Alonzo Hickey Provider For Whom Kiarra is Documenting (Include Credential): Marc Barnett MD Scribe Attestation: IAlonzo, scribed for Marc Barnett MD on 10/09/18 at 1847. Scribe Documentation Reviewed: Yes Provider Attestation: The documentation as recorded by the Alonzo vyas accurately reflects the service I personally performed and the decisions made by me, Marc Barnett MD Status of Scribe Document: Viewed
[2018-10-09 16:10] LABS: ABS Basophils 0.1 10^3/ul (0-0.2); ABS Eosinophils 0 10^3/ul (0-0.6); ABS Lymphocytes 1.5 10^3/ul (1.0-4.8); ABS Monocytes 0.4 10^3/ul (0-0.8); ABS Neutrophils 4.7 10^3/ul (1.5-7.7); ABS Nucleated RBC 0 10^3/ul; Eosinophil % 0.3 %; Hematocrit 39 % (35-47); Hemoglobin 13.1 g/dl (12.0-16.0); Lymphocyte % 22.7 %; Mean Corpuscular HGB Conc 34 g/dl (31-36); Mean Corpuscular Hemoglobin 28 pg (27-31); Mean Corpuscular Volume 85 fL (80-97); Mean Platelet Volume 7.8 fL (7.4-10.4); Nucleated Red Blood Cells % 0; Platelet Count 255 10^3/ul (150-450); Red Blood Count 4.59 10^6/ul (4.00-5.40); Red Cell Distribution Width 14 % (10.5-15); White Blood Count 6.7 10^3/ul (3.5-10.8)
[2018-10-09 16:17] LABS: Urine Appearance Cloudy; Urine Bacteria 1+ (Absent); Urine Bilirubin Negative (Negative); Urine Blood 1+ (Negative); Urine Color Yellow; Urine Glucose Negative (Negative); Urine Ketones Negative (Negative); Urine Nitrite Negative (Negative); Urine Protein Negative (Negative); Urine Red Blood Cell Absent (Absent); Urine Specific Gravity 1.029 (1.010-1.030); Urine Urobilinogen Negative (Negative); Urine White Blood Cell Trace(0-5/hpf) (Absent)
[2018-10-09] MEDS ORDERED: HYDROmorphone INJ1* 1 MG/ML SYRINGE IV SLOW PU ONE ×2 (16:17→17:36)
[2018-10-09 16:26] LABS: ALT 7 U/L (7-52); AST 12 U/L (13-39); Albumin 3.9 g/dL (3.2-5.2); Albumin/Globulin Ratio 1.3 (1-3); Alkaline Phosphatase 56 U/L (34-104); Anion Gap 7 mmol/L (2-11); BUN/Creatinine Ratio 29.7 (8-20); Blood Urea Nitrogen 19 mg/dL (6-24); C Reactive Protein < 1.00 mg/L (<8.01); CO2 Carbon Dioxide 23 mmol/L (22-32); Calcium 8.6 mg/dL (8.6-10.3); Chloride 106 mmol/L (101-111); EGFR Non-African American 93.7 (>60); Globulin 2.9 g/dL (2-4); Glucose 90 mg/dL (70-100); Potassium 3.7 mmol/L (3.5-5.0); Sodium 136 mmol/L (135-145); Total Protein 6.8 g/dL (6.4-8.9)
[2018-10-09] MEDS ORDERED: Ondansetron INJ* 2 MG/ML VIAL IV ONE ×2 (16:40→17:36)
[2018-10-09 18:44] VITALS: BP 202/110
== END 2018-10-09 19:30 | disposition home or self-care (01) ==
LOC: ED 14:31
DX: R10.13 Epigastric pain (principal); R07.9 Chest pain, unspecified; K22.0 Achalasia of cardia; Z85.3 Personal history of malignant neoplasm of breast; Z86.73 Personal history of transient ischemic attack (TIA), and cerebral infarction without residual deficits; Z87.828 Personal history of other (healed) physical injury and trauma; F41.9 Anxiety disorder, unspecified; F17.210 Nicotine dependence, cigarettes, uncomplicated
CPT/HCPCS: 36415; 80053; 81003; 81015; 83605; 83690; 84484; 85025; 86140; 87086; 96361; 96374; 96375; 99283; J1170; J2405

== ENCOUNTER 2018-10-18 14:35 | Observation (INO) | payer OTHER ==
[2018-10-18] MEDS ORDERED: Nicotine Inhaler* 10 MG AMP INH PRN (15:30)
[2018-10-18] MEDS ORDERED: Morphine ORAL CONCENTRATE* 5 MG/0.25 ML ORAL.SYRIN PO ONE (15:36)
--- NOTE | 2018-10-18 15:56 | ED ---
Complex/Multi-Sys Presentation - HPI Summary HPI Summary: Pt is a 63 y/o female brought in by EMS who presents to the ED c/o CP and hallucinations. As her EMS, she saw her friend on her couch who had overdosed and was unresponsive. She called 911 to help her friend. However, upon EMS and police arrival, there was nobody in her house. Pt was very tearful, and expressed concern for a previous co-worker. Pt states that the officer was mean , and she denies any hx of hallucination. She denies any SI or HI. Pt also c/o CP, caused by her achalasia. She describes the pain as an ache and is rated 9/ 10 in severity. Pt normally takes morphine for her pain, but didnt take any today because she wanted to be clear for her mother. She also states that she was taking care of kids today. Pt reports a recent fall and is on blood thinners. PMHx anxiety, COPD, HLD TIA, achalasia, [place], UTI, and GERD. BP while in room: 188/111. Pt is requesting her normal pain medications, and will be given 2.5 ml morphine PO. - History Of Current Complaint Chief Complaint: EDGeneral Time Seen by Provider: 10/18/18 15:26 Hx Obtained From: Patient, EMS Onset/Duration: Gradual Onset, Still Present Timing: Constant Severity Currently: None Aggravating Factor(s): Nothing Alleviating Factor(s): Nothing Associated Signs And Symptoms: Positive: Chest Pain, Other - Hallucations - Allergies/Home Medications Allergies/Adverse Reactions: Allergies Allergy/AdvReac Type Severity Reaction Status Date / Time albumin colloid, human Allergy Severe Anaphylatic Verified 10/09/18 14:34 Shock bee venom protein (honey bee) Allergy Severe Anaphylatic Verified 10/09/18 14:34 Shock Iodinated Contrast- Oral and Allergy Severe Anaphylatic Verified 10/09/18 14:34 IV Dye Shock onabotulinumtoxinA Allergy Severe Anaphylatic Verified 10/09/18 14:34 [From Botox] Shock Penicillins Allergy Severe Anaphylatic Verified 10/09/18 14:34 Shock shellfish derived Allergy Severe Anaphylatic Verified 10/09/18 14:34 Shock Adhesive Tape Allergy Mild Itching Verified 10/09/18 14:34 chlorhexidine Allergy Mild Rash And Verified 10/09/18 14:34 Itching latex Allergy Mild Hives Verified 10/09/18 14:34 NSAIDS (Non-Steroidal Allergy Mild Hives Verified 10/09/18 14:34 Anti-Inflamma povidone-iodine Allergy Mild Itching Verified 10/09/18 14:34 fentanyl Allergy Hallucinati Verified 10/09/18 14:34 ons ENVIRONMENTAL/SEASONAL Allergy Mild ITCHY,WATERY Uncoded 10/09/18 14:34 HAYFEVER EYES, SNEEZE, CONGESTION PMH/Surg Hx/FS Hx/Imm Hx Endocrine/Hematology History: Reports: Hx Anticoagulant Therapy - plavix, Hx Anemia - possible Denies: Hx Diabetes, Hx Thyroid Disease Cardiovascular History: Reports: Hx Angina - has prn nitro, Hx Coronary Artery Disease - 2 stents- RCA stent 2006, LAD stent 2007, Hx Deep Vein Thrombosis, Hx Embolism, Hx Hypercholesterolemia, Hx Hypertension, Hx Myocardial Infarction, Hx Syncope, Other Cardiovascular Problems/Disorders - cardiac cath Denies: Hx Congestive Heart Failure, Hx Pacemaker/ICD, Hx Valvular Heart Disease Respiratory History: Reports: Hx Chronic Obstructive Pulmonary Disease (COPD) - Pt denies though providers have diagnosed it, Hx Pneumonia, Hx Pulmonary Embolism - and DVT 30 yrs ago, Hx Seasonal Allergies, Other Respiratory Problems /Disorders - SMOKER Denies: Hx Asthma, Hx Sleep Apnea GI History: Reports: Hx Diverticulosis, Hx Gastroesophageal Reflux Disease, Hx Hiatal Hernia - 3 surgeries, Other GI Disorders - achalasia, Fernández's esophagus , gastroparesis, J tube Denies: Hx Ulcer History: Reports: Hx Kidney Infection, Hx Kidney Stones - LAST 12/2015- NO PROBLEMS SINCE PER PATIENT Denies: Hx Dialysis, Hx Renal Disease, Other Problems/Disorders Musculoskeletal History: Reports: Hx Back Problems, Other Musculoskeletal History - L1 fx Denies: Hx Arthritis, Hx Osteoporosis Sensory History: Reports: Hx Cataracts - maryuri Denies: Hx Contacts or Glasses, Hx Hearing Aid Opthamlomology History: Reports: Hx Cataracts - maryuri Denies: Hx Contacts or Glasses Neurological History: Reports: Hx Spinal Cord Injury - L1, Hx Transient Ischemic Attacks (TIA) Psychiatric History: Reports: Hx Anxiety Denies: Hx Panic Disorder - Cancer History Cancer Type, Location and Year: RT BREAST CA, 2009 HAD A BILATERAL MASTECTOMY Hx Chemotherapy: No Hx Radiation Therapy: No - Surgical History Surgery Procedure, Year, and Place: RT LUMPECTOMY 02/2010, BILATERAL MASTECTOMY ,. 2006& 2008 CARDIAC STENT AT [facility] [place],. LEFT KNEE SURGERY X10,. BILATERAL SHOULDER SURGERY,. ESPOHOGEAL SURGERY,1996, 2015. failed breast implant on left. PARTIAL HYSTERECTOMY, 1976. APPENDIX A CHILD,. CHEST TUBE, 1996. ESOPHAGEAL DILATION. NISSIN FUNDOLPICATION multiple. total left knee replacement 2015. kidney stone surgery. left chest wound surgery 2010. Insertion Infusaport 02/2018 Hx Anesthesia Reactions: No - Immunization History Date of Tetanus Vaccine: utd Date of Influenza Vaccine: fall 2016 Infectious Disease History: No Infectious Disease History: Reports: Hx Clostridium Difficile Denies: Hx Hepatitis, Hx Human Immunodeficiency Virus (HIV), Hx of Known/ Suspected MRSA, Hx Shingles, Hx Tuberculosis, Hx Known/Suspected VRE, Hx Known/ Suspected VRSA, History Other Infectious Disease, Traveled Outside the in Last 30 Days - Family History Known Family History: Positive: Cardiac Disease - Father, 2 brothers - [place]. Mother - AFIB, Hypertension, Diabetes - Social History Alcohol Use: Occasionally Hx Substance Use: No Substance Use Type: Reports: None Substance Use Comment - Amount & Last Used: prescribed Hx Tobacco Use: Yes Smoking Status (MU): Heavy Every Day Tobacco Smoker Type: Cigarettes Amount Used/How Often: 1/2 PPD Length of Time of Smoking/Using Tobacco: 40+ YEARS Have You Smoked in the Last Year: No Review of Systems Positive: Chest Pain Psychological: Other - Hallucination, NEGATIVE: SI, HI All Other Systems Reviewed And Are Negative: Yes Physical Exam - Summary Physical Exam Summary: Appearance: Chronically ill-appearing, minimal pain distress, thin, disheveled, very active on the stretcher with knees bent to chest, tearful Skin: Warm, color reflects adequate perfusion, dry, ecchymosis on left knee, multiple excoriated lesions Head: Normal Head/Face inspection, atraumatic Eyes: Conjunctiva clear, PERRL, EOMI, no nystagmus ENT: Dry oral mucosa Neck: Supple, no nodes, no JVD Respiratory: Lungs clear, normal breath sounds, no respiratory distress Cardio: RRR, No murmur, pulses normal, brisk capillary refill Chest wall: Status post bilateral mastectomy and failed implants with more tissue on right than left Abdomen: Soft, nontender, non-distended Bowel sounds: Present Musculoskeletal: Strength Intact/ROM intact, no calf tenderness, no edema. Psychological: Tearful, hallucinating Neuro: Alert, muscle tone normal, no focal deficit Triage Information Reviewed: Yes Vital Signs On Initial Exam: Initial Vitals Temp Pulse Resp BP Pulse Ox 98.8 F 90 22 214/110 95 10/18/18 14:40 10/18/18 14:40 10/18/18 14:40 10/18/18 14:40 10/18/18 14:40 Vital Signs Reviewed: Yes - [place] Coma Scale Best Eye Response: 4 - Spontaneous Best Motor Response: 6 - Obeys Commands Best Verbal Response: 5 - Oriented Coma Scale Total: 15 Diagnostics - Vital Signs Vital Signs Temp Pulse Resp BP Pulse Ox 10/18/18 15:14 16 198/106 10/18/18 15:13 20 198/105 10/18/18 15:00 21 10/18/18 14:56 23 202/111 10/18/18 14:54 18 10/18/18 14:53 219/109 10/18/18 14:40 98.8 F 90 22 214/110 95 - Laboratory Result Diagrams: 10/18/18 15:51 10/18/18 15:51 Lab Statement: Any lab studies that have been ordered have been reviewed, and results considered in the medical decision making process. - CT Brain CT CT Interpretation Completed By: Radiologist Summary of CT Findings: Stigmata of probable chronic small vessel ischemic disease. No acute intracranial process evident. ED physician reviewed radiology report. - EKG 15:41 Cardiac Rate: NL - 69 bpm EKG Rhythm: Sinus Rhythm EKG Comparison: Other - New inverted T waves in V4 as compared to 08/02/18. Summary of EKG Findings: An EKG at 15:41 reveals nml AV/IV CT, nml QTc, LAD -26 , inverted T waves in V1-V4, and downsloping ST in III. 16:13 Cardiac Rate: NL - 71 bpm EKG Rhythm: Sinus Rhythm EKG Comparison: No Significant Change - As compared to EKG on 10/18/18 at 15:41. Summary of EKG Findings: An EKG at 16:13 reveals nml AV/IV CT, nml QTc, LAD -26 , inverted T waves in V1-V4, and downsloping ST in III. Re-Evaluation - Re-Evaluation First Eval Re-Evaluation Time: 16:30 Change: Unchanged Comment: Pt still has CP. Second Eval Re-Evaluation Time: 17:00 Change: Improved Comment: Pt is now pain-free. Potassium was infusing. Complex Multi-Symp Course/Dx Course Of Treatment: Pt is a 63 y/o female brought in by EMS who presents to the ED c/o CP and hallucinations. As her EMS, she saw her friend on her couch who had overdosed and was unresponsive. She called 911 to help her friend. However, upon EMS and police arrival, there was nobody in her house. Pt was very tearful, and expressed concern for a previous co-worker. Pt states that the officer was mean, and she denies any hx of hallucination. She denies any SI or HI. Pt also c/o CP, caused by her achalasia. She describes the pain as an ache and is rated 9/10 in severity. Pt is requesting her normal pain medications , and will be given 2.5 ml morphine PO. A physical exam revealed Chronically ill -appearing, minimal pain distress, thin, disheveled, very active on the stretcher with knees bent to chest, tearful, ecchymosis on left knee, multiple excoriated lesions, dry oral mucosa, Status post bilateral mastectomy and failed implants with more tissue on right than left, non-distended abdomen, and hallucinating. GCS of 15. An EKG at 15:41 and at 16:13 revealed nml AV/IV CT, nml QTc, LAD -26, inverted T waves in V1-V4, and downsloping ST in III. A brain CT was negative. Bloodwork reviewed. Final dx are CP, acute kidney injury, hyperammonemia, hypokalemia, and hallucinations. Pt will be admitted to Dr. Milan. - Diagnoses Provider Diagnoses: Chest pain, Hallucinations, Acute kidney injury, Hypokalemia, Hyperammonemia - Physician Notifications Discussed Care Of Patient With: Yumiko Milan Time Discussed With Above Provider: 16:28 Instructed by Provider To: Admit As Inpatient Discharge - Sign-Out/Discharge Documenting (check all that apply): Patient Departure - Admit - Discharge Plan Condition: Stable Disposition: ADMITTED TO [facility] - Attestation Statements Document Initiated by Scribe: Yes Documenting Scribe: Luisana Gilbert Provider For Whom Scribe is Documenting (Include Credential): Shila Rubio MD Scribe Attestation: Luisana Chatterjee, scribed for Shila Rubio MD on 10/18/18 at 1747. Status of Scribe Document: Ready
[2018-10-18 16:07] LABS: ABS Basophils 0.1 10^3/ul (0-0.2); ABS Eosinophils 0 10^3/ul (0-0.6); ABS Lymphocytes 1.6 10^3/ul (1.0-4.8); ABS Monocytes 1.2 10^3/ul (0-0.8); ABS Neutrophils 8.7 10^3/ul (1.5-7.7); ABS Nucleated RBC 0 10^3/ul; Eosinophil % 0.2 %; Hematocrit 38 % (35-47); Hemoglobin 12.7 g/dl (12.0-16.0); Lymphocyte % 13.8 %; Mean Corpuscular HGB Conc 34 g/dl (31-36); Mean Corpuscular Hemoglobin 29 pg (27-31); Mean Corpuscular Volume 84 fL (80-97); Mean Platelet Volume 7.8 fL (7.4-10.4); Nucleated Red Blood Cells % 0.1; Platelet Count 333 10^3/ul (150-450); Red Blood Count 4.47 10^6/ul (4.00-5.40); Red Cell Distribution Width 15 % (10.5-15); White Blood Count 11.6 10^3/ul (3.5-10.8)
[2018-10-18 16:18] LABS: Albumin 4.2 g/dL (3.2-5.2); Anion Gap 18 mmol/L (2-11); BUN/Creatinine Ratio 20.4 (8-20); Blood Urea Nitrogen 32 mg/dL (6-24); CO2 Carbon Dioxide 20 mmol/L (22-32); Calcium 9.3 mg/dL (8.6-10.3); Chloride 96 mmol/L (101-111); EGFR Non-African American 33.3 (>60); Globulin 3.1 g/dL (2-4); Glucose 84 mg/dL (70-100); Potassium 2.8 mmol/L (3.5-5.0); Sodium 134 mmol/L (135-145); Total Protein 7.3 g/dL (6.4-8.9)
[2018-10-18 16:19] LABS: ALT 9 U/L (7-52); AST 24 U/L (13-39); Albumin/Globulin Ratio 1.4 (1-3); Alkaline Phosphatase 68 U/L (34-104)
[2018-10-18 16:27] LABS: Acetaminophen < 15 mcg/mL; Alcohol < 10 mg/dL (<10)
[2018-10-18] MEDS ORDERED: Nitroglycerin TAB 0.4 MG* 0.4 MG TAB SL ONE (16:32)
[2018-10-18] MEDS: KCL 20 MEQ/100 ML IVPREMIX* 20 MEQ/100 ML BAG IV SCH ×2 (17:25→21:36)
[2018-10-18] MEDS ORDERED: Acetaminophen ADULT LIQ* 650 MG/20.3 ML UDC PO PRN (17:40)
[2018-10-18] MEDS ORDERED: Nitroglycerin TAB 0.4 MG* 0.4 MG TAB SL PRN (17:55)
[2018-10-18] MEDS ORDERED: Albuterol HFA INHALER* 8 gm MDI INH PRN (17:55)
[2018-10-18] MEDS ORDERED: Prochlorperazine TAB* 10 MG J TUBE PRN (17:55)
[2018-10-18] MEDS: NS 0.9% 1000 ML* 1,000 ML IV SCH (18:51)
--- NOTE | 2018-10-18 21:34 | HP ---
CC: Dr. Combs* [facility] MEDICINE HISTORY AND PHYSICAL: DATE OF ADMISSION: 10/18/18 PRIMARY CARE PHYSICIAN: Dr. Combs. ATTENDING PHYSICIAN: Yumiko Milan DO* (dictation provided by Tennille Sierra NP) CHIEF COMPLAINT: Hallucinations. HISTORY OF PRESENT ILLNESS: Ms. Prasad is a 63-year-old female with a past medical history of end-stage achalasia; gastroparesis; dependent on Jevity tube feeding at night for nutrition; hypertension; chronic pain, on high dose narcotics who presents to the hospital today with concern for hallucinations. Ms. Prasad is somewhat angry during my interview with her and is refusing to answer some questions. From the report from the emergency medical providers, the patient called the police because she was concerned that someone was overdosing on her couch. The patient does agree that this is what happened and that she "only wanted to help the person." The police arrived, but there was no one there overdosing and they brought her to the hospital for evaluation due to concern for hallucinations and inability to care for self at home. The patient denies any complaint today other than stating that she "feels awful." She is not able to provide any further details about this. She states that essentially she is at her baseline in terms of having intermittent chest pain, abdominal pain, nausea. She denies any recent other health complaints including fever, cough. She states that she has been taking her medications as prescribed including her high-dose morphine. She states she takes the 50 mg of oral concentrate 3 times a day. In the emergency room, Ms. Prasad had labs that were remarkable for a potassium of 2.8, a slightly elevated BUN and creatinine of [address] brain was unremarkable. Her eyes are rolling back in her head and she is drifting off to sleep when I am not directly speaking to her, but she awakens immediately and responds appropriately to all questions. PAST MEDICAL HISTORY: 1. Chronic end-stage achalasia. 2. Gastroparesis. 3. History of DVT/PE. 4. Coronary artery disease. 5. Hyperlipidemia. 6. History of seizures. 7. TIA. 8. COPD. 9. Hypertension. 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 11. Tobacco abuse. 12. Diverticulitis. 13. GERD. 14. History of right breast cancer. PAST SURGICAL HISTORY: 1. Status post cardiac stenting x2, one to the RCA, one to the LAD. 2. Status post hiatal hernia surgery x2. 3. Status post Godwin fundoplication. 4. Status post bilateral mastectomies. 5. Status post partial hysterectomy. 6. Status post left total knee replacement. 7. Status post bilateral shoulder surgeries. 8. Status post esophageal surgery. 9. Appendectomy. 10. Esophageal dilatations. 11. Azgwvi-J-Sloo placement. 12. Right breast lumpectomy. MEDICATIONS: 1. Tylenol 650 mg p.o. q.6 hours p.r.n. 2. Albuterol p.r.n. 3. Carisoprodol 350 mg via J-tube 4 times a day. 4. Clopidogrel 75 mg via J-tube q.a.m. 5. Cyanocobalamin injections 1000 mcg IM monthly. 6. Famotidine 20 mg via J-tube daily. 7. Fluticasone nasal spray both nares b.i.d. 8. Diphenhydramine via J-tube p.r.n. 9. Simvastatin 40 mg p.o. at bedtime. 10. Compazine 10 mg via J-tube b.i.d. p.r.n. 11. Zofran p.r.n. 12. Nitroglycerin p.r.n. 13. Morphine extended release 60 mg at 6 a.m., 1400, and 2200. Morphine oral concentrate 50 mg q.3 hours p.r.n. The patient states she takes it 3 times a day. 14. Metoprolol tartrate 50 mg via J-tube q.12 hours. ALLERGIES: ALBUMIN, BEE VENOM, IODINATED CONTRAST DYE oral and IV, BOTOX, PENICILLIN, SHELLFISH, ADHESIVE TAPE, CHLORHEXIDINE, LATEX, NSAIDS, POVIDONE IODINE, FENTANYL. FAMILY HISTORY: The patient's father and 2 brothers have a history of [place]. The patient's mother has a history of diabetes. SOCIAL HISTORY: The patient lives alone. She is a continued intermittent smoker, but she has a long-term 50 pack-year history of smoking. She states her daughter, Blanca Yates, will be the surrogate decision maker. There is no report of alcohol or drug abuse. REVIEW OF SYSTEMS: A 14-point review of systems was completed with Ms. Prasad and all those not mentioned above were negative. PHYSICAL EXAMINATION GENERAL: Ms. Prasad is sitting up in the bed. She is drowsy. Her eyes are rolling back in her head when I am not speaking directly to her, but she awakens instantly and is answering all questions appropriately. VITAL SIGNS: Temperature 98.8, pulse rate 74, respiratory rate 20, O2 saturation 95% on room air, blood pressure 133/95. LUNGS: Clear to auscultation bilaterally with no accessory muscle use and good aeration. HEART: S1, S2. No murmur, rub, or gallop and regular. ABDOMEN: Soft, nontender. She has a J-tube in place. There is no erythema or drainage from the site. EXTREMITIES: No cyanosis or edema. NEURO: She again is drowsy, but oriented x3. She moves all extremities equally. There is no facial asymmetry or focal weakness. Extraocular movements are intact. SKIN: Intact. LABORATORY DATA/DIAGNOSTIC STUDIES: Sodium 134, potassium 2.8, chloride 96, serum bicarbonate 20, BUN 32, creatinine 1.57, glucose 84. WBC 11.6, hemoglobin 12.7, hematocrit 38, platelet count 333. Serum alcohol level is less than 10. The CT brain shows close stigmata of probable chronic small vessel ischemic disease and no acute intracranial process. The EKG shows a sinus rhythm with a heart rate of 70. She does have significant T-wave inversions in V4, V3, V2, the one in V2 was present before, the one in V3 and V4 are new. Her troponin is 0.03. ASSESSMENT: Ms. Prasad is a 63-year-old female with a past medical history of end- stage achalasia, gastroparesis, and a J-tube for nutrition oral supplementation at night, as well as chronic pain, hypertension, and a history of deep venous thrombosis and pulmonary embolism, who presents today to the hospital with hallucinations, brought in by police, which I suspect are all related to toxic metabolic encephalopathy related to narcotic ingestion. Our plans are for observation in the hospital for the followin. Hallucinations: Based on the patient's exam today, I suspect that she is using her narcotics to excess. She is protecting her airway and she awakens easily. I see no need for Narcan, but do plan to hold her p.r.n. morphine. We will continue her long-acting 60 mg ER tabs 3 times a day for now. I see no other issues. She has no evidence of infection. She is mildly dehydrated and we will rehydrate her and recheck her labs in the morning. Her ammonia is essentially normal. 2. Concern for electrocardiogram changes. The patient reports that she " always has chest pain." Her troponin is negative. Her electrocardiogram shows some nonspecific T-wave inversions. We will repeat troponin x2 with concomitant EKG. 3. History of coronary artery disease. Continue Plavix. 4. History of hypertension. Continue losartan, metoprolol. 5. DVT prophylaxis with heparin subcu. 6. Code status is full code. TIME SPENT: Approximately 60 minutes was spent on the admission of this patient , more than half of the time was spent with the patient at the bedside reviewing the events leading up to this hospitalization, performing the physical examination and reviewing my plan of care. TENNILLE SIERRA, DAYNE [id number]/CPS #: [id number] [place]
[2018-10-18] MEDS: Carisoprodol TAB* 350 MG SCH (21:54)
[2018-10-18] MEDS: Metoprolol Tartrate TAB* 50 mg J TUBE SCH (21:56)
[2018-10-18] MEDS: Heparin VIAL(*) 5000 UNITS/ML VIAL (FIVE THOUSAND) SUBCUT SCH (22:09)
[2018-10-18] MEDS: Fluticasone NASAL SPRAY 50MCG* 16 gm SPRAY BTL BOTH NARES SCH (22:11)
[2018-10-18] MEDS: Morphine TAB Extended Release (*) 30 MG TAB.ER PO SCH (23:09)
--- NOTE | 2018-10-19 03:07 | PN ---
Hospitalist Progress Note Date of Service: 10/19/18 overdose on morphine now asking for pain meds for her generalized pain ---> has allergy to nasaid but says tylenol not working will give ativan 0.5 m ivp once
[2018-10-19] MEDS ORDERED: LORazepam INJ* 2 MG/ML 1 ML VIAL IV PUSH ONE (03:08)
[2018-10-19] MEDS: NS 0.9% 1000 ML* 1,000 ML IV SCH (04:04)
[2018-10-19 05:09] LABS: BUN/Creatinine Ratio 28.6 (8-20); Calcium 8.6 mg/dL (8.6-10.3); EGFR Non-African American 57.3 (>60); Potassium 3.5 mmol/L (3.5-5.0)
[2018-10-19] MEDS: Heparin VIAL(*) 5000 UNITS/ML VIAL (FIVE THOUSAND) SUBCUT SCH ×3 (05:44→22:36)
[2018-10-19] MEDS: Morphine TAB Extended Release (*) 30 MG TAB.ER PO SCH ×3 (06:07→22:35)
[2018-10-19] MEDS: Metoprolol Tartrate TAB* 50 mg J TUBE SCH ×2 (08:51→21:20)
[2018-10-19] MEDS: Losartan TAB* 25 MG J TUBE SCH (08:51)
[2018-10-19] MEDS: Clopidogrel TAB* 75 MG SCH (08:52)
[2018-10-19] MEDS: Fluticasone NASAL SPRAY 50MCG* 16 gm SPRAY BTL BOTH NARES SCH ×2 (08:53→22:36)
[2018-10-19] MEDS: Carisoprodol TAB* 350 MG SCH ×4 (08:53→21:08)
[2018-10-19] MEDS: Ondansetron ODT TAB* 4 MG PO PRN (09:02)
[2018-10-19] MEDS: Famotidine SUSP* 40 MG/5 ML ORAL.SYRIN J TUBE SCH (09:09)
[2018-10-19] MEDS ORDERED: Morphine ORAL.SOLN 10 mg* 2 MG/ML UDC 5 ml PO PRN (16:55)
--- NOTE | 2018-10-19 17:08 | PN ---
Subjective Date of Service: 10/19/18 Interval History: Patient reports that she continues to have her chronic upper abd pain / chest pain no change from daily pain. reports that her hallucination are improving but continued to be worried about her cat and is unsure if her cat is or alive and this is upsetting her. Patient reports that she thinks that she may have starting having hallucinations approximately 1 week ago. Patient continues to be unsure why her brother was at her apartment and why he did not tell her what she was seeing was not real. Patient currently c/o nausea and chronic abd pain. Denies shortness of breath. denies diarrhea. Family History: Unchanged from Admission Social History: Unchanged from Admission Past Medical History: Unchanged from Admission Objective Active Medications: Acetaminophen (Tylenol Adult Liq*) 650 mg PO Q6H PRN PRN Reason: PAIN Albuterol (Ventolin Hfa Inhaler*) 2 puff INH Q4HR PRN PRN Reason: WHEEZING Carisoprodol (Soma Tab*) 350 mg .SEE ORDER QID [facility] Last Admin: 10/19/18 13:06 Dose: 350 mg Clopidogrel Bisulfate (Plavix Tab*) 75 [facility] [place] Admin: 10/19/18 08:52 Dose: 75 mg Cyanocobalamin (Vitamin B12 Inj *) 1,000 mcg IM MONTHLY [facility] Famotidine (Pepcid Susp*) 20 mg J TUBE DAILY [facility] Last Admin: 10/19/18 09:09 Dose: 20 mg Fluticasone Propionate (Flonase Nasal [place] 50mcg*) 2 spray BOTH NARES BID [facility] Last Admin: 10/19/18 08:53 Dose: 2 spray Heparin Sodium (Porcine) (Heparin Vial(*)) 5,000 units SUBCUT Q8HR [facility] Last Admin: 10/19/18 14:18 Dose: 5,000 units Sodium Chloride (Ns 0.9% 1000 Ml*) 1,000 mls @ 100 mls/hr IV PER RATE [facility] Last Admin: 10/19/18 04:04 Dose: 100 mls/hr Losartan Potassium (Cozaar Tab*) 50 mg J TUBE QAM [facility] Last Admin: 10/19/18 08:51 Dose: 50 mg Metoprolol Tartrate (Lopressor Tab*) 50 mg J TUBE Q12HR [facility] Last Admin: 10/19/18 08:51 Dose: 50 mg Morphine Sulfate (Ms Contin(*)) 60 mg PO 0600,1400,2200 [facility] Last Admin: 10/19/18 14:18 Dose: 60 mg Morphine Sulfate (Morphine Oral Concentrate*) 20 mg PO Q6H PRN PRN Reason: PAIN Nicotine (Nicotine Inhaler*) 10 mg INH Q2H PRN PRN Reason: CRAVING Nitroglycerin (Nitroglycerin Tab 0.4 Mg*) 0.4 mg SL Q5M PRN PRN Reason: chest pain Ondansetron HCl (Zofran Odt Tab*) 4 mg PO Q8HR PRN PRN Reason: NAUSEA/VOMITING Last Admin: 10/19/18 09:02 Dose: 4 mg Potassium Chloride (Klor-Con Liquid*) 40 meq PO ONCE ONE Stop: 10/19/18 18:02 Prochlorperazine (Compazine Tab*) 10 mg J TUBE BID PRN PRN Reason: NAUSEA/VOMITING Vital Signs - 8 hr 10/19/18 10/19/18 10/19/18 11:48 13:06 13:07 Temperature 98.1 F Pulse Rate 59 Respiratory 16 16 16 Rate Blood Pressure 126/61 (mmHg) O2 Sat by Pulse 97 Oximetry 10/19/18 10/19/18 10/19/18 14:18 15:24 15:46 Temperature 97.0 F Pulse Rate 55 Respiratory 16 16 16 Rate Blood Pressure 132/77 (mmHg) O2 Sat by Pulse 94 Oximetry Oxygen Devices in Use Now: None Appearance: alert oriented sititng in the bed, no acute distress Eyes: No Scleral Icterus Ears/Nose/Mouth/Throat: Clear Oropharnyx, Mucous Membranes Moist Neck: NL Appearance and Movements; NL JVP, Trachea Midline Respiratory: Symmetrical Chest Expansion and Respiratory Effort, Clear to Auscultation Cardiovascular: NL Sounds; No Murmurs; No JVD, No Edema Abdominal: NL Sounds; No Tenderness; No Distention Extremities: No Edema, No Clubbing, Cyanosis Skin: No Rash or Ulcers Neurological: Alert and Oriented x 3 Nutrition: Taking PO's - Nutrition: Malnutrition Diagnosis/Plan Malnutrition Assessment by Registered Dietitian: Malnutrition Assessment Clinical Characteristics Acute,Severe Malnutrition Assessment: Anticipate < 50% estimated energy expenditure > Criteria 5 days (pt has not been doing her tube feedings x past ~ 1 week) Moderate temporal muscle wasting BMI 16.4 Malnutrition Assessment: - Recommend increasing tube feeding regimen of Interventions Jevity 1.2 to 120 mls/hr x 12 hours at night (6 cartons) - Will send small strawberry milkshake w/ L, D - 222 kcals, 5 grams protein Malnutrition Assessment: Goals 1. Adequate nutrition via. PO intake and nutrition support to promote wt repletion Result Diagrams: 10/18/18 15:51 10/19/18 04:48 Assess/Plan/Problems-Billing Assessment: Ms. Prasad is a 63 y.o female with a pmhx of end-stage achalasia; gastroparesis ; dependent on Jevity tube feeding at night for nutrition; hypertension; chronic pain on high dose narcotics who presents to the hospital today with concern for hallucinations. - Patient Problems (1) Hallucination Current Visit: Yes Status: Acute Code(s): R44.3 - HALLUCINATIONS, UNSPECIFIED SNOMED Code(s): 2137107 Comment: I suspect this is could be related to patients morphine - unsure if she is not taking mediction as directed - patient was unable to tell me if she had been taking the medication as directed at home. - will restart morphine at a lower dose and less frequent - will consult pain management as well. (2) Chronic pain Current Visit: Yes Status: Acute Code(s): G89.29 - OTHER CHRONIC PAIN SNOMED Code(s): 87506562 Comment: Continue MS ER as ordered - Will add Morphine PRN at lower dose - 20 mgQ 6 hours for break through pain - I suspect that this could be contributing to her hallcinations- will monitor for side effects and D/ C with any adverse reactions - I will contact Pain management tomorrow as well (3) Dehydration Current Visit: No Status: Acute Code(s): E86.0 - DEHYDRATION SNOMED Code(s ): 82128246 Comment: recieved hydration overnight Bun/ creatinine improved - will stop IVF and repeat BMP in the AM (4) Acute kidney injury Current Visit: Yes Status: Acute Code(s): N17.9 - ACUTE KIDNEY FAILURE, UNSPECIFIED SNOMED Code(s): 34209807 Comment: - suspect thisis related to dehydration - BUN/Creatintine improved today - will stop IVF - repeat BMP in the AM (5) HLD (hyperlipidemia) Current Visit: No Status: Chronic Code(s): E78.5 - HYPERLIPIDEMIA, UNSPECIFIED SNOMED Code(s): 67306689 Comment: - Continue atorvastatin. (6) HTN (hypertension) Current Visit: No Status: Chronic Code(s): I10 - ESSENTIAL (PRIMARY) HYPERTENSION SNOMED Code(s): 72207239 Comment: stable continue home medications (7) Hx of deep venous thrombosis Current Visit: No Status: Acute Code(s): Z86.718 - PERSONAL HISTORY OF OTHER VENOUS THROMBOSIS AND EMBOLISM SNOMED Code(s): 672804993 Comment: - Not on anticoagulation outpatient. (8) DVT prophylaxis Current Visit: No Status: Acute Onset Date: 01/19/15 Code(s): UNM4033 - SNOMED Code(s): 005170537 Comment: - Heparin SQ. (9) Full code status Current Visit: No Status: Acute Onset Date: 01/19/15 Code(s): Z78.9 - OTHER SPECIFIED HEALTH STATUS SNOMED Code(s): 027710696 Comment: Status and Disposition: discharge home when medically stable
[2018-10-19] MEDS ORDERED: Potassium Chloride LIQUID* 20 MEQ PACKET PO ONE (18:01)
[2018-10-19] MEDS ORDERED: Metoprolol Tartrate TAB* 50 mg J TUBE SCH (21:13)
[2018-10-20] MEDS: Morphine TAB Extended Release (*) 30 MG TAB.ER PO SCH (06:14)
[2018-10-20] MEDS: Heparin VIAL(*) 5000 UNITS/ML VIAL (FIVE THOUSAND) SUBCUT SCH (06:15)
[2018-10-20 06:25] LABS: BUN/Creatinine Ratio 43.2 (8-20); Calcium 8.1 mg/dL (8.6-10.3); EGFR Non-African American 71.4 (>60); Potassium 3.7 mmol/L (3.5-5.0)
[2018-10-20] MEDS: Losartan TAB* 25 MG J TUBE SCH (09:56)
[2018-10-20] MEDS: Fluticasone NASAL SPRAY 50MCG* 16 gm SPRAY BTL BOTH NARES SCH (09:56)
--- NOTE | 2018-10-20 09:56 | PN ---
Subjective Date of Service: 10/20/18 Interval History: Ms. Prasad is quite teary today as she "feels like a fool" because she "messed up" her medications. There appears to be some confusion over whether or not she was able to get the increased dose of morphine ER (60mg) from her insurance or whether she just had the 30mg. She tells me this morning that she feels quite certain that her bottles are labeled as 60mg. She denies any intentional misuse of her medication. She denies other complaint this morning and is eager to get home to "love on her kitties." She does report that she has a neighbor who will go through her medications and the discharge instructions to be sure that she is on the right meds when she returns home. Family History: Unchanged from Admission Social History: Unchanged from Admission Past Medical History: Unchanged from Admission Objective Active Medications: Acetaminophen (Tylenol Adult Liq*) 650 mg PO Q6H PRN Albuterol (Ventolin Hfa Inhaler*) 2 puff INH Q4HR PRN Carisoprodol (Soma Tab*) 350 mg .SEE ORDER QID [facility] Clopidogrel Bisulfate (Plavix Tab*) 75 mg .SEE ORDER QAM [facility] Cyanocobalamin (Vitamin B12 Inj *) 1,000 mcg IM MONTHLY [facility] Famotidine (Pepcid Susp*) 20 mg J TUBE DAILY [facility] Fluticasone Propionate (Flonase Nasal [place] 50mcg*) 2 spray BOTH NARES BID [facility] Heparin Sodium (Porcine) (Heparin Vial(*)) 5,000 units SUBCUT Q8HR [facility] Losartan Potassium (Cozaar Tab*) 50 mg J TUBE QAM [facility] Metoprolol Tartrate (Lopressor Tab*) 50 mg J TUBE Q12HR [facility] Morphine Sulfate (Ms Contin(*)) 60 mg PO 0600,1400,2200 [facility] Morphine Sulfate (Morphine Oral.Soln 10 Mg*) 20 mg PO Q6H PRN Nicotine (Nicotine Inhaler*) 10 mg INH Q2H PRN Nitroglycerin (Nitroglycerin Tab 0.4 Mg*) 0.4 mg SL Q5M PRN Ondansetron HCl (Zofran Odt Tab*) 4 mg PO Q8HR PRN Prochlorperazine (Compazine Tab*) 10 mg J TUBE BID PRN Vital Signs: Temp Pulse Resp BP Pulse Ox 98.6 F 50 16 141/96 96 10/20/18 07:44 10/20/18 07:44 10/20/18 07:44 10/20/18 07:44 10/20/18 07:44 Oxygen Devices in Use Now: None Appearance: Female sitting up in bed in NAD Eyes: No Scleral Icterus Ears/Nose/Mouth/Throat: Mucous Membranes Moist Neck: Trachea Midline Respiratory: Symmetrical Chest Expansion and Respiratory Effort, Clear to Auscultation Cardiovascular: NL Sounds; No Murmurs; No JVD, No Edema Abdominal: NL Sounds; No Tenderness; No Distention Extremities: No Edema Skin: No Rash or Ulcers Neurological: Alert and Oriented x 3, NL Muscle Strength and Tone Nutrition: Taking PO's - Nutrition: Malnutrition Diagnosis/Plan Malnutrition Assessment by Registered Dietitian: Malnutrition Assessment Clinical Characteristics Acute,Severe Malnutrition Assessment: Anticipate < 50% estimated energy expenditure > Criteria 5 days (pt has not been doing her tube feedings x past ~ 1 week) Moderate temporal muscle wasting BMI 16.4 Malnutrition Assessment: - Recommend increasing tube feeding regimen of Interventions Jevity 1.2 to 120 mls/hr x 12 hours at night (6 cartons) - Will send small strawberry milkshake w/ L, D - 222 kcals, 5 grams protein Malnutrition Assessment: Goals 1. Adequate nutrition via. PO intake and nutrition support to promote wt repletion Result Diagrams: 10/18/18 15:51 10/20/18 05:35 Assess/Plan/Problems-Billing Assessment: Ms. Prasad is a 63 y.o female with a pmhx of end-stage achalasia; gastroparesis ; dependent on Jevity tube feeding at night for nutrition; hypertension; chronic pain on high dose narcotics who presented to the hospital with concern for hallucinations suspected due to toxic metabolic encephalopathy related to high dose narcotic usage. - Patient Problems (1) Toxic metabolic encephalopathy Comment: - Resolved - Suspect this is could be related to patients morphine - unclear if pt is taking mediction as directed - Continue 30mg morphine ER with prn IR, appreciate recommendations from Dr. Ayala. (2) Chronic pain Comment: - Continue MS ER as ordered - Continue Morphine PRN with morphine ER now at 30mg - Suspect high dose narcotics are responsible for patients hallucinations - Patient to follow up with Dr. Morpurgo in 2 months (3) Acute kidney injury Comment: - Resolved - Secondary to dehydration (4) Achalasia Comment: - Continue current management - Has J tube for supplemental feeding at night (5) CAD (coronary artery disease) Comment: - Continue clopidogrel, metoprolol, statin. (6) COPD (chronic obstructive pulmonary disease) Comment: - No evidence of acute exacerbation. - Continue PRN albuterol. (7) HLD (hyperlipidemia) Comment: - Continue atorvastatin. (8) HTN (hypertension) Current Visit: No Status: Chronic Code(s): I10 - ESSENTIAL (PRIMARY) HYPERTENSION SNOMED Code(s): 86229046 Comment: - BP well controlled but HR 45-55 - Reduce metoprolol and continue losartan (9) Hx of deep venous thrombosis Comment: - Not on anticoagulation outpatient. (10) DVT prophylaxis Comment: - Heparin SQ. (11) Full code status Comment: Status and Disposition: Inpatient. Discharge to home.
[2018-10-20] MEDS: Carisoprodol TAB* 350 MG SCH (09:57)
[2018-10-20] MEDS: Ondansetron ODT TAB* 4 MG PO PRN (09:57)
[2018-10-20] MEDS: Clopidogrel TAB* 75 MG SCH (09:57)
[2018-10-20] MEDS: Famotidine SUSP* 40 MG/5 ML ORAL.SYRIN J TUBE SCH (09:58)
[2018-10-20 12:08] VITALS: BP 164/93
--- NOTE | 2018-10-20 20:31 | DS ---
CC: Dr. Combs; Dr. Ayala * [facility] MEDICINE DISCHARGE SUMMARY: DATE OF ADMISSION: 10/18/18 DATE OF DISCHARGE: 10/20/18 PRIMARY CARE PHYSICIAN: Dr. Combs. PAIN PHYSICIAN: Dr. Ayala. ATTENDING PHYSICIAN: Dr. Kimo Castanon * (dictation provided by Tennille Sierra NP ). PRIMARY DIAGNOSES: 1. Toxic metabolic encephalopathy secondary to narcotic use. 2. Acute kidney injury secondary to dehydration, now resolved. SECONDARY DIAGNOSES: 1. End-stage achalasia with chronic pain. 2. Gastroparesis. 3. History of deep vein thrombus and pulmonary embolism, not on anticoagulation. 4. Coronary artery disease. 5. Hyperlipidemia. 6. History of seizures. 7. Transient ischemic attack. 8. Chronic obstructive pulmonary disease. 9. Hypertension. 10. Fernández's esophagus. 11. Tobacco abuse. 12. Diverticulitis. 13. Gastroesophageal reflux disease. 14. History of right breast cancer. MEDICATIONS AT THE TIME OF DISCHARGE: 1. Losartan 50 mg via J-tube q.a.m. 2. Jevity 1.5 calorie liquid 5 cans via J-tube q.p.m. 3. Allergy eye drops b.i.d. p.r.n. 4. Fluticasone nasal spray, 2 sprays both nares b.i.d. 5. Famotidine 20 mg via J-tube daily. 6. Epinephrine p.r.n. 7. Cyanocobalamin 1000 mcg IM monthly. 8. Clopidogrel 75 mg via J-tube daily. 9. Soma 350 mg via J-tube four times a day. 10. Albuterol inhaler p.r.n. 11. Tylenol p.r.n. 12. Diphenhydramine liquid p.r.n. 13. Simvastatin 40 mg p.o. at bedtime. 14. Compazine 10 mg via J-tube b.i.d., p.r.n. 15. Ondansetron 4 mg p.o. q.8 hours p.r.n. 16. Nitroglycerin 1 tab 0.4 mg sublingual q.5 minutes p.r.n. 17. Morphine oral concentrate 100 mg/mL, 2 mL p.o. q.3 hours p.r.n. 18. Morphine extended-release tab 30 mg p.o. t.i.d. 19. Metoprolol tartrate 25 mg via J-tube b.i.d. (new lower dose due to bradycardia). HOSPITAL COURSE: Ms. Prasad is a 63-year-old female with a past medical history as outlined above, who presented to the emergency room on 10/18/18, out of concern for hallucinations. Ms. Prasad was reporting that there was someone in her home who had overdosed. She called the police to help this person, and when they arrived, there was no one there. The patient seemed disoriented and was therefore brought to the emergency room for evaluation. Here in the ED, she was somewhat lethargic, though awakened easily to voice. There was concern that she likely had mistakenly taken too much of her morphine, therefore leading to a toxic metabolic encephalopathy and hallucinations. She also had elevated BUN and creatinine with creatinine of 1.57 thought to be secondary to dehydration. CT brain showed no acute process. Ms. Prasad was admitted to the hospital, initially continued her morphine ER at 60 mg t.i.d. Per the patient, she had been recently increased by Dr. Ayala' s office where she follows for chronic pain from 30 mg MS Contin to 60 mg MS Contin, seems there is some confusion about where not this was provided through her insurance; however, on review of [employer], the patient appears to have filled the 60 mg script. The patient states that she does not really remember well the events leading up to the hospitalization. She states she had no intention to take an excess amount of her narcotic. While here in the hospital, the patient has continued on the 60 mg, but had had reduction of her p.r.n. and with this, her mentation seems to be at baseline. Dr. Ayala was consulted and he recommended that the patient use the 30 mg MS Contin ER and then 2 mL of the short-acting morphine liquid p.r.n. The patient states that she agrees to this and that she very much does not want to continue on the 60 mg as she feels this is likely what led to her altered mental status. Other than this, we hydrated the patient and her creatinine has returned to normal. She is back to baseline. I discussed at length with Ms. Prasad the importance of being careful with her medications. She states intention to do so. She states intention to follow up with her neighbor, who helps her go through her medications. Will also be having VNS follow up with her. Finally, the patient will be seeing Dr. Ayala again within 2 months, can follow up sooner if need be. DISPOSITION: Home. DIET: Regular with Jevity. ACTIVITY: As tolerated. FOLLOWUP PLANS: 1. Please follow up with Dr. Ayala per routine regarding pain management. 2. Please follow up with Dr. Combs regarding monitoring of blood pressure. I did reduce her metoprolol dose while inpatient as her heart rate ran into the 40s. Her blood pressure is running about 140 systolically. She may need further adjustment outpatient. TIME SPENT: Approximately 60 minutes was spent on the discharge of this patient , more than half the time was spent with her at the bedside reviewing the events leading up to this hospitalization and during this hospitalization, performing the physical examination, and reviewing my plan of care. TENNILLE SIERRA NP [id number]/DANIEL #: [id number] [place]
[2018-10-20] MEDS ORDERED: Metoprolol Tartrate TAB* 25 MG J TUBE SCH (21:00)
[2018-11-03] MEDS ORDERED: Cyanocobalamin INJ * 1,000 MCG/ML VIAL 1 ML VIAL IM SCH (09:00)
== END 2018-10-20 13:20 | disposition home or self-care (01) ==
LOC: ED 14:35 → SSU 17:35
PROVIDERS: ADMIT Hospitalist; ATTEND Internal Medicine
DX: G92 Toxic encephalopathy (principal); N17.9 Acute kidney failure, unspecified; E86.0 Dehydration; K22.0 Achalasia of cardia; G89.29 Other chronic pain; K31.84 Gastroparesis; Z86.718 Personal history of other venous thrombosis and embolism; Z86.711 Personal history of pulmonary embolism; I25.10 Atherosclerotic heart disease of native coronary artery without angina pectoris; E78.5 Hyperlipidemia, unspecified; R56.9 Unspecified convulsions; G45.9 Transient cerebral ischemic attack, unspecified; J44.9 Chronic obstructive pulmonary disease, unspecified; I10 Essential (primary) hypertension; K22.70 Barrett's esophagus without dysplasia; F17.210 Nicotine dependence, cigarettes, uncomplicated; K57.92 Diverticulitis of intestine, part unspecified, without perforation or abscess without bleeding; K21.9 Gastro-esophageal reflux disease without esophagitis; Z85.3 Personal history of malignant neoplasm of breast; R44.3 Hallucinations, unspecified; Z96.652 Presence of left artificial knee joint; Z95.5 Presence of coronary angioplasty implant and graft
CPT/HCPCS: 36415; 70450; 80048; 80053; 80320; 80329; 82140; 83880; 84443; 84484; 85025; 93005; 96365; 96366; 96372; 96375; 99283; A9270-GY; G0378; G0480; J1644; J3480

== ENCOUNTER 2018-10-23 15:44 | Emergency (ER) | payer OTHER ==
[2018-10-23 17:35] LABS: ABS Basophils 0 10^3/ul (0-0.2); ABS Eosinophils 0 10^3/ul (0-0.6); ABS Lymphocytes 1.5 10^3/ul (1.0-4.8); ABS Neutrophils 8.2 10^3/ul (1.5-7.7); ABS Nucleated RBC 0 10^3/ul; Eosinophil % 0 %; Hematocrit 46 % (35-47); Hemoglobin 15.6 g/dl (12.0-16.0); Mean Corpuscular HGB Conc 34 g/dl (31-36); Mean Corpuscular Hemoglobin 29 pg (27-31); Mean Corpuscular Volume 84 fL (80-97); Mean Platelet Volume 7.9 fL (7.4-10.4); Nucleated Red Blood Cells % 0.1; Platelet Count 279 10^3/ul (150-450); Red Blood Count 5.46 10^6/ul (4.00-5.40); Red Cell Distribution Width 14 % (10.5-15); White Blood Count 10.8 10^3/ul (3.5-10.8)
[2018-10-23 17:52] LABS: Albumin 4.1 g/dL (3.2-5.2); Albumin/Globulin Ratio 1.4 (1-3); BUN/Creatinine Ratio 27.9 (8-20); Calcium 8.8 mg/dL (8.6-10.3); EGFR Non-African American 87.4 (>60); Globulin 2.9 g/dL (2-4); Potassium 3.5 mmol/L (3.5-5.0); Total Bilirubin 0.6 mg/dL (0.2-1.0)
[2018-10-23] MEDS ORDERED: Labetalol IV* 5 MG/ML 20 ML VIAL IV PUSH ONE (18:36)
[2018-10-23] MEDS ORDERED: Metoprolol Tartrate IV* 1 MG/ML 5 ML VIAL IV ONE (18:43)
[2018-10-23] MEDS ORDERED: Metoprolol Tartrate IV* 1 MG/ML 5 ML VIAL ONE (18:44)
[2018-10-23] MEDS ORDERED: Morphine VIAL* 10 MG/ML 1 ML VIAL IV ONE (19:06)
[2018-10-23] MEDS ORDERED: NS 0.9% 1000 ML* 1,000 ML IV ONE (19:06)
[2018-10-23] MEDS ORDERED: Ondansetron ODT TAB* 4 MG PO ONE (19:07)
[2018-10-23 19:14] LABS: INR 0.93 (0.77-1.02)
--- NOTE | 2018-10-23 19:47 | ED ---
HPI Chest Pain - HPI Summary HPI Summary: Patient with history of chronic sternal chest pain and intractable nausea and vomiting from achalasia complains of acute on chronic pain uncontrolled by prescription medication. Patient states she normally takes morphine 30 mg by mouth 3 times a day, along with Zofran for control of symptoms. Patient has been seen here multiple times before for same. States she is here for control of nausea and pain. Denies change in location, quality of chest pain. Denies fever, cough, sore throat, SOB, D, change in urine, change in BM. Tolerating food and fluid intake per usual. Also complains of chronic abdominal pain, denies any change in abdominal symptoms. Medical history is CAD, HDL, COPD, HTN , Fernández's esophagus him achalasia, intractable nausea or vomiting, BOTELLO, DVT, CVA. Patient on Plavix. Patient followed at [facility] for achalasia. Last morphine at home 30 mg at 2 PM with 4 mg Zofran. Patient states she is compliant with blood pressure medication despite elevated blood pressure here in the ED. - History of Current Complaint Chief Complaint: EDChestPainROMI Time Seen by Provider: 10/23/18 18:32 Hx Obtained From: Patient Onset/Duration: Started Hours Ago Timing: Constant Initial Severity: Severe Current Severity: Severe Pain Intensity: 10 Pain Scale Used: 0-10 Numeric Chest Pain Location: Discrete at:, Mid Sternal Chest Pain Radiates: No Character: Burning Aggravating Factor(s): Nothing Alleviating Factor(s): Nothing Associated Signs and Symptoms: Positive: Chest Pain, Nausea, Abdominal Pain, Vomiting - Additional Pertinent History Primary Care Physician: [id number] - Allergy/Home Medications Allergies/Adverse Reactions: Allergies Allergy/AdvReac Type Severity Reaction Status Date / Time albumin colloid, human Allergy Severe Anaphylatic Verified 10/09/18 14:34 Shock bee venom protein (honey bee) Allergy Severe Anaphylatic Verified 10/09/18 14:34 Shock Iodinated Contrast- Oral and Allergy Severe Anaphylatic Verified 10/09/18 14:34 IV Dye Shock onabotulinumtoxinA Allergy Severe Anaphylatic Verified 10/09/18 14:34 [From Botox] Shock Penicillins Allergy Severe Anaphylatic Verified 10/09/18 14:34 Shock shellfish derived Allergy Severe Anaphylatic Verified 10/09/18 14:34 Shock Adhesive Tape Allergy Mild Itching Verified 10/09/18 14:34 chlorhexidine Allergy Mild Rash And Verified 10/09/18 14:34 Itching latex Allergy Mild Hives Verified 10/09/18 14:34 NSAIDS (Non-Steroidal Allergy Mild Hives Verified 10/09/18 14:34 Anti-Inflamma povidone-iodine Allergy Mild Itching Verified 10/09/18 14:34 fentanyl Allergy Hallucinati Verified 10/09/18 14:34 ons ENVIRONMENTAL/SEASONAL Allergy Mild ITCHY,WATERY Uncoded 10/09/18 14:34 HAYFEVER EYES, SNEEZE, CONGESTION PMH/Surg Hx/FS Hx/Imm Hx Endocrine/Hematology History: Reports: Hx Anticoagulant Therapy - plavix, Hx Anemia - possible Denies: Hx Diabetes, Hx Thyroid Disease Cardiovascular History: Reports: Hx Angina - has prn nitro, Hx Coronary Artery Disease - 2 stents- RCA stent 2006, LAD stent 2007, Hx Deep Vein Thrombosis, Hx Embolism, Hx Hypercholesterolemia, Hx Hypertension, Hx Myocardial Infarction, Hx Syncope, Other Cardiovascular Problems/Disorders - cardiac cath Denies: Hx Congestive Heart Failure, Hx Pacemaker/ICD, Hx Valvular Heart Disease Respiratory History: Reports: Hx Chronic Obstructive Pulmonary Disease (COPD) - Pt denies though providers have diagnosed it, Hx Pneumonia, Hx Pulmonary Embolism - and DVT 30 yrs ago, Hx Seasonal Allergies, Other Respiratory Problems /Disorders - SMOKER Denies: Hx Asthma, Hx Sleep Apnea GI History: Reports: Hx Diverticulosis, Hx Gastroesophageal Reflux Disease, Hx Hiatal Hernia - 3 surgeries, Other GI Disorders - achalasia, Fernández's esophagus , gastroparesis, J tube Denies: Hx Ulcer History: Reports: Hx Kidney Infection, Hx Kidney Stones - LAST 12/2015- NO PROBLEMS SINCE PER PATIENT Denies: Hx Dialysis, Hx Renal Disease, Other Problems/Disorders Musculoskeletal History: Reports: Hx Back Problems, Other Musculoskeletal History - L1 fx Denies: Hx Arthritis, Hx Osteoporosis Sensory History: Reports: Hx Cataracts - bilat cataracts Denies: Hx Contacts or Glasses, Hx Hearing Aid Opthamlomology History: Reports: Hx Cataracts - bilat cataracts Denies: Hx Contacts or Glasses Neurological History: Reports: Hx Spinal Cord Injury - L1, Hx Transient Ischemic Attacks (TIA) Psychiatric History: Reports: Hx Anxiety Denies: Hx Panic Disorder - Cancer History Cancer Type, Location and Year: RT BREAST CA, 2009 HAD A BILATERAL MASTECTOMY Hx Chemotherapy: No Hx Radiation Therapy: No - Surgical History Surgery Procedure, Year, and Place: RT LUMPECTOMY 02/2010, BILATERAL MASTECTOMY ,. 2006& 2007 CARDIAC STENT AT [facility] IN [place],. LEFT KNEE SURGERY X10,. BILATERAL SHOULDER SURGERY,. ESPOHOGEAL SURGERY,1996, 2015. failed breast implant on left. PARTIAL HYSTERECTOMY, 1976. APPENDIX A CHILD,. CHEST TUBE, 1996. ESOPHAGEAL DILATION. NISSIN FUNDOLPICATION multiple. total left knee replacement 2015. kidney stone surgery. left chest wound surgery 2010. Insertion Infusaport 02/2018 Hx Anesthesia Reactions: No - Immunization History Date of Tetanus Vaccine: utd Date of Influenza Vaccine: fall 2016 Infectious Disease History: No Infectious Disease History: Reports: Hx Clostridium Difficile Denies: Hx Hepatitis, Hx Human Immunodeficiency Virus (HIV), Hx of Known/ Suspected MRSA, Hx Shingles, Hx Tuberculosis, Hx Known/Suspected VRE, Hx Known/ Suspected VRSA, History Other Infectious Disease, Traveled Outside the [place] in Last 30 Days - Family History Known Family History: Positive: Cardiac Disease - Father, 2 brothers - [place]. Mother - AFIB, Hypertension, Diabetes - Social History Alcohol Use: cannot be determined Hx Substance Use: No Substance Use Type: Reports: None Substance Use Comment - Amount & Last Used: prescribed Hx Tobacco Use: Yes Smoking Status (MU): Heavy Every Day Tobacco Smoker Type: Cigarettes Amount Used/How Often: 1/2 PPD Length of Time of Smoking/Using Tobacco: 40+ YEARS Have You Smoked in the Last Year: No Review of Systems Constitutional: Negative Eyes: Negative ENT: Negative Positive: Chest Pain Respiratory: Negative Positive: Abdominal Pain, Vomiting, Nausea Genitourinary: Negative Musculoskeletal: Negative Skin: Negative Neurological: Negative Psychological: Normal All Other Systems Reviewed And Are Negative: Yes Physical Exam - Summary Physical Exam Summary: Physical exam unremarkable. Triage Information Reviewed: Yes Vital Signs On Initial Exam: Initial Vitals Temp Pulse Resp BP Pulse Ox 97.7 F 101 18 209/133 97 10/23/18 15:49 10/23/18 15:49 10/23/18 15:49 10/23/18 15:49 10/23/18 15:49 Vital Signs Reviewed: Yes Appearance: Positive: Well-Appearing Skin: Positive: Warm Head/Face: Positive: Normal Head/Face Inspection Eyes: Positive: Normal ENT: Positive: Normal ENT inspection Neck: Positive: Supple Respiratory/Lung Sounds: Positive: Clear to Auscultation Cardiovascular: Positive: Normal Abdomen Description: Positive: Nontender Musculoskeletal: Positive: Normal Neurological: Positive: Normal Psychiatric: Positive: Normal AVPU Assessment: Alert - [place] Coma Scale Best Eye Response: 4 - Spontaneous Best Motor Response: 6 - Obeys Commands Best Verbal Response: 5 - Oriented Coma Scale Total: 15 Diagnostics - Vital Signs Vital Signs Temp Pulse Resp BP Pulse Ox 10/23/18 17:54 98.6 F 102 16 230/120 98 10/23/18 15:49 97.7 F 101 18 209/133 97 - Laboratory Lab Results: Lab Results 10/23/18 10/23/18 10/23/18 Range/Units 17:09 17:09 17:09 WBC 10.8 (3.5-10.8) 10^3/ul RBC 5.46 H (4.00-5.40) 10^6/ul Hgb 15.6 (12.0-16.0) g/dl Hct 46 (35-47) % MCV 84 (80-97) fL MCH 29 (27-31) pg MCHC 34 (31-36) g/dl RDW 14 (10.5-15) % Plt Count 279 (150-450) 10^3/ul MPV 7.9 (7.4-10.4) fL Neut % (Auto) 76.2 % Lymph % (Auto) 14.0 % [place] % (Auto) 9.6 % Eos % (Auto) 0 % Baso % (Auto) 0.2 % Absolute Neuts (auto) 8.2 H (1.5-7.7) 10^3/ul Absolute Lymphs (auto) 1.5 (1.0-4.8) 10^3/ul Absolute Monos (auto) 1.0 H (0-0.8) 10^3/ul Absolute Eos (auto) 0 (0-0.6) 10^3/ul Absolute Basos (auto) 0 (0-0.2) 10^3/ul Absolute Nucleated RBC 0 10^3/ul Nucleated RBC % 0.1 INR (Anticoag Therapy) (0.77-1.02) Sodium 130 L (135-145) mmol/L Potassium 3.5 (3.5-5.0) mmol/L Chloride 98 L (101-111) mmol/L Carbon Dioxide 22 (22-32) mmol/L Anion Gap 10 (2-11) mmol/L BUN 19 (6-24) mg/dL Creatinine 0.68 (0.51-0.95) mg/dL Est GFR ( Amer) 105.7 (>60) Est GFR (Non-Af Amer) 87.4 (>60) BUN/Creatinine Ratio 27.9 H (8-20) Glucose 120 H (70-100) mg/dL Lactic Acid 1.4 (0.5-2.0) mmol/L Calcium 8.8 (8.6-10.3) mg/dL Total Bilirubin 0.60 (0.2-1.0) mg/dL AST 17 (13-39) U/L ALT 11 (7-52) U/L Alkaline Phosphatase 61 (34-104) U/L Troponin I 0.01 (<0.04) ng/mL Total Protein 7.0 (6.4-8.9) g/dL Albumin 4.1 (3.2-5.2) g/dL Globulin 2.9 (2-4) g/dL Albumin/Globulin Ratio 1.4 (1-3) Lipase 10 L (11.0-82.0) U/L 10/23/18 10/23/18 10/23/18 Range/Units 18:51 18:51 18:51 WBC (3.5-10.8) 10^3/ul RBC (4.00-5.40) 10^6/ul Hgb (12.0-16.0) g/dl Hct (35-47) % MCV (80-97) fL MCH (27-31) pg MCHC (31-36) g/dl RDW (10.5-15) % Plt Count (150-450) 10^3/ul MPV (7.4-10.4) fL Neut % (Auto) % Lymph % (Auto) % [place] % (Auto) % Eos % (Auto) % Baso % (Auto) % Absolute Neuts (auto) (1.5-7.7) 10^3/ul Absolute Lymphs (auto) (1.0-4.8) 10^3/ul Absolute Monos (auto) (0-0.8) 10^3/ul Absolute Eos (auto) (0-0.6) 10^3/ul Absolute Basos (auto) (0-0.2) 10^3/ul Absolute Nucleated RBC 10^3/ul Nucleated RBC % INR (Anticoag Therapy) 0.93 (0.77-1.02) Sodium (135-145) mmol/L Potassium (3.5-5.0) mmol/L Chloride (101-111) mmol/L Carbon Dioxide (22-32) mmol/L Anion Gap (2-11) mmol/L BUN (6-24) mg/dL Creatinine (0.51-0.95) mg/dL Est GFR ( Amer) (>60) Est GFR (Non-Af Amer) (>60) BUN/Creatinine Ratio (8-20) Glucose (70-100) mg/dL Lactic Acid 1.2 (0.5-2.0) mmol/L Calcium (8.6-10.3) mg/dL Total Bilirubin (0.2-1.0) mg/dL AST (13-39) U/L ALT (7-52) U/L Alkaline Phosphatase (34-104) U/L Troponin I 0.01 (<0.04) ng/mL Total Protein (6.4-8.9) g/dL Albumin (3.2-5.2) g/dL Globulin (2-4) g/dL Albumin/Globulin Ratio (1-3) Lipase (11.0-82.0) U/L Result Diagrams: 10/23/18 17:09 10/23/18 17:09 Lab Statement: Any lab studies that have been ordered have been reviewed, and results considered in the medical decision making process. Chest Pain Course/Dx - Course Course Of Treatment: Patient with history of chronic sternal chest pain and intractable nausea and vomiting from achalasia complains of acute on chronic pain uncontrolled by prescription medication. Patient states she normally takes morphine 30 mg by mouth 3 times a day, along with Zofran for control of symptoms. Patient has been seen here multiple times before for same. States she is here for control of nausea and pain. Denies change in location, quality of chest pain. Denies fever, cough, sore throat, SOB, D, change in urine, change in BM. Tolerating food and fluid intake per usual. Also complains of chronic abdominal pain, denies any change in abdominal symptoms. Medical history is CAD, HDL, COPD, HTN, Fernández's esophagus him achalasia, intractable nausea or vomiting, BOTELLO, DVT, CVA. Patient on Plavix. Patient followed at [facility] for achalasia. Last morphine at home 30 mg at 2 PM with 4 mg Zofran. Patient states she is compliant with blood pressure medication despite elevated blood pressure here in the ED. Physical exam: Unremarkable. Elevated blood pressure SBP 250. Vital signs otherwise unremarkable. Chest x-ray unremarkable. EKG 2 unremarkable, sinus rhythm similar to prior EKGs.. Troponins 3 within normal range. Labs at patient baseline. Patient blood pressure resistant to multiple medications. SBP 145 prior to discharge. Discussed patient with Dr. Guillory who agreed patient to be discharged home. Follow up with GI in [facility] for further evaluation of chronic chest pain related to achalasia. Follow-up with pain management for further evaluation of breakthrough pain. - Diagnoses Provider Diagnoses: Atypical chest pain - Critical Care Time Critical Care Time: 30-74 min Discharge - Sign-Out/Discharge Documenting (check all that apply): Patient Departure - Discharge Plan Condition: Stable Disposition: HOME Patient Education Materials: Chest Pain (ED) Referrals: Trish Combs MD [Primary Care Provider] - Additional Instructions: Follow-up with primary care. Return to the ED for any new or worsening symptoms - Billing Disposition and Condition Condition: STABLE Disposition: Home
[2018-10-23] MEDS ORDERED: Morphine VIAL* 4 MG/ML VIAL (1 ml vial) ONE (19:55)
[2018-10-23] MEDS ORDERED: hydrALAZINE IV* 20 MG/ML VIAL IV SLOW PU ONE (20:33)
[2018-10-23] MEDS ORDERED: Lisinopril TAB* 10 MG PO ONE (20:41)
[2018-10-23] MEDS ORDERED: cloNIDine TAB* 0.1 MG PO ONE ×2 (23:33→23:46)
[2018-10-23] MEDS ORDERED: Morphine TAB Extended Release (*) 30 MG TAB.ER PO ONE (23:39)
[2018-10-24] MEDS ORDERED: Morphine VIAL* 10 MG/ML 1 ML VIAL IV ONE (00:52)
[2018-10-24 02:57] VITALS: BP 149/78
== END 2018-10-24 02:55 | disposition home or self-care (01) ==
LOC: ED 15:44
DX: R07.89 Other chest pain (principal); R11.2 Nausea with vomiting, unspecified; R10.9 Unspecified abdominal pain; I44.4 Left anterior fascicular block; I25.119 Atherosclerotic heart disease of native coronary artery with unspecified angina pectoris; I10 Essential (primary) hypertension; Z95.5 Presence of coronary angioplasty implant and graft; Z86.718 Personal history of other venous thrombosis and embolism; Z79.01 Long term (current) use of anticoagulants; Z90.711 Acquired absence of uterus with remaining cervical stump; Z96.652 Presence of left artificial knee joint; Z88.6 Allergy status to analgesic agent; Z91.030 Bee allergy status; Z91.041 Radiographic dye allergy status; Z91.040 Latex allergy status; Z88.5 Allergy status to narcotic agent; Z88.0 Allergy status to penicillin; Z91.013 Allergy to seafood; Z88.8 Allergy status to other drugs, medicaments and biological substances; Z91.048 Other nonmedicinal substance allergy status; Z82.49 Family history of ischemic heart disease and other diseases of the circulatory system; Z83.3 Family history of diabetes mellitus; F17.210 Nicotine dependence, cigarettes, uncomplicated
CPT/HCPCS: 36415; 71045; 80053; 83605; 83690; 83880; 84443; 84484; 85025; 85610; 93005; 96374; 96375; 96376; 99284; A9270-GY; J2270; J3490

== ENCOUNTER 2018-11-05 11:56 | Emergency (ER) | payer OTHER ==
[2018-11-05] MEDS ORDERED: Labetalol IV* 5 MG/ML 20 ML VIAL IV PUSH ONE (12:04)
[2018-11-05] MEDS ORDERED: Ondansetron INJ* 2 MG/ML VIAL IV ONE (12:04)
[2018-11-05] MEDS ORDERED: HYDROmorphone INJ1* 1 MG/ML SYRINGE IV SLOW PU ONE ×2 (12:04→14:26)
--- NOTE | 2018-11-05 12:07 | ED ---
HPI Chest Pain - HPI Summary HPI Summary: A 63 y/o female brought in by ambulance presents to the ED c/o midsternal chest pain/discomfort. Currently, the patient is still experiencing chest pain reaching 10/10 in severity. In the ED room, the patient has a pulse of 98 BPM, O2 saturation of 96%, and blood pressure of 218/146. As per triage, "Patient arrives via EMS. C/o midsternal CP that started suddenly this morning at rest. States it feels similar to her previous [facility]. C/o nausea and upset stomach for a couple of days prior to this. Took her own NTG prior to EMS arrival. Given NTG and ASA by EMS". According to the patient, she has been experiencing chest pain for the past 2 hours since being woken up by the sudden pain. She stated that all of a sudden she started experiencing heaviness in her chest "like someone is sitting on me" this morning which woke her up from sleep. She noted that she laid there for a few minutes and took NTG, however, it did not subside. Before calling EMS 2-hours later, she just remained at rest as she thought it would settle down but it did not. She stated that she has not been feeling well for the past few days, as she has been exhibiting difficulty eating, upset stomach, etc, however, this is all normal for her as she as occlusion and had multiple surgeries. She can handle her chronic symptoms as she takes morphine, but the chest pain "was out of control this morning". Additional symptoms include nausea , diaphoresis, and lightheadedness, denies dizziness. PMHx of cardiac disease, 2 stents, HBP, denies DM. Patient took all her regular routine medications at 0600 this morning. Home Medications Medication Instructions Recorded Confirmed Type Cyanocobalamin INJ * [Vitamin B12 1,000 mcg IM MONTHLY 05/31/15 10/18/18 History INJ *] Ondansetron ODT TAB* [Zofran 4 MG 4 mg PO Q8HR PRN 07/23/17 10/18/18 History Odt TAB*] Albuterol inh POWDER (NF) [Proair 2 puff INH Q4HR PRN 01/13/18 10/18/18 History Respiclick] EPINEPHrine [Epipen 2-Godwin] 0.3 mg IM ONCE PRN 01/13/18 10/18/18 History Ketotifen Fumarate [Allergy Eye 1 drop BOTH EYES BID PRN 01/13/18 10/18/18 History Drops] Lactose-Reduced Food/Fiber [Jevity 5 can J TUBE QPM 01/13/18 10/18/18 History 1.5 Pineda Liquid] Fluticasone NASAL SPRAY 50MCG* 2 spray BOTH NARES BID 03/12/18 10/18/18 History [Flonase NASAL SPRAY 50MCG*] Carisoprodol TAB* [Soma TAB*] 350 mg .SEE ORDER QID tab 04/19/18 10/18/18 Rx Clopidogrel TAB* [Plavix TAB*] 75 mg .SEE ORDER QAM tab 04/19/18 10/18/18 Rx Famotidine SUSP* [Pepcid SUSP*] 20 mg J TUBE DAILY #1 bottle 04/19/18 10/18/18 Rx Losartan TAB* [Cozaar TAB*] 50 mg J TUBE QAM #30 tab 04/19/18 10/18/18 Rx Nitroglycerin TAB 0.4 MG* 0.4 mg SL Q5M PRN #30 tab 04/19/18 10/18/18 Rx Prochlorperazine TAB* [Compazine 10 mg J TUBE BID PRN #30 tab 04/19/18 10/18/18 Rx Tab*] diphenhydrAMINE HCl [Benadryl 25 mg J TUBE Q6H PRN #1 bottle 04/19/18 10/18/18 Rx LIQUID 12.5 MG/5 ML] Acetaminophen TAB* [Tylenol TAB*] 650 mg J TUBE BID PRN 05/02/18 10/18/18 History Simvastatin 40 mg PO BEDTIME 05/20/18 10/18/18 History Metoprolol Tartrate TAB* 25 mg J TUBE BID #60 tab 10/20/18 Rx [Lopressor TAB*] Morphine ORAL CONCENTRATE* 2 ml PO Q3H PRN #0 10/20/18 10/18/18 Rx Morphine TAB Extended Rel(*) [Ms 30 mg PO 0600,1400,2200 #15 tab.er 10/20/18 Rx Contin(*)] MDD 3 - History of Current Complaint Time Seen by Provider: 11/05/18 11:58 Hx Obtained From: Patient, EMS - GAVE SUMMARY Onset/Duration: Started Hours Ago, Still Present Timing: Constant, Lasting Hours Initial Severity: Severe - 10/10 Current Severity: Severe - 10/10 Pain Intensity: 10 Pain Scale Used: 0-10 Numeric Chest Pain Location: Mid Sternal Chest Pain Radiates: No Character: Heaviness Aggravating Factor(s): Nothing Alleviating Factor(s): Nothing Associated Signs and Symptoms: Positive: Chest Pain, Lightheadedness, Diaphoresis, Nausea. Negative: Dizziness - Additional Pertinent History Primary Care Physician: [id number] - Allergy/Home Medications Allergies/Adverse Reactions: Allergies Allergy/AdvReac Type Severity Reaction Status Date / Time albumin colloid, human Allergy Severe Anaphylatic Verified 10/09/18 14:34 Shock bee venom protein (honey bee) Allergy Severe Anaphylatic Verified 10/09/18 14:34 Shock Iodinated Contrast- Oral and Allergy Severe Anaphylatic Verified 10/09/18 14:34 IV Dye Shock onabotulinumtoxinA Allergy Severe Anaphylatic Verified 10/09/18 14:34 [From Botox] Shock Penicillins Allergy Severe Anaphylatic Verified 10/09/18 14:34 Shock shellfish derived Allergy Severe Anaphylatic Verified 10/09/18 14:34 Shock Adhesive Tape Allergy Mild Itching Verified 10/09/18 14:34 chlorhexidine Allergy Mild Rash And Verified 10/09/18 14:34 Itching latex Allergy Mild Hives Verified 10/09/18 14:34 NSAIDS (Non-Steroidal Allergy Mild Hives Verified 10/09/18 14:34 Anti-Inflamma povidone-iodine Allergy Mild Itching Verified 10/09/18 14:34 fentanyl Allergy Hallucinati Verified 10/09/18 14:34 ons ENVIRONMENTAL/SEASONAL Allergy Mild ITCHY,WATERY Uncoded 10/09/18 14:34 HAYFEVER EYES, SNEEZE, CONGESTION Home Medications: Home Medications Simvastatin (NF) [Zocor (NF)] 40 mg PO BEDTIME 11/05/18 [History Confirmed 11/05] PMH/Surg Hx/FS Hx/Imm Hx Endocrine/Hematology History: Reports: Hx Anticoagulant Therapy - plavix, Hx Anemia - possible Denies: Hx Diabetes, Hx Thyroid Disease Cardiovascular History: Reports: Hx Angina - has prn nitro, Hx Coronary Artery Disease - 2 stents- RCA stent 2006, LAD stent 2007, Hx Deep Vein Thrombosis, Hx Embolism, Hx Hypercholesterolemia, Hx Hypertension, Hx Myocardial Infarction, Hx Syncope, Other Cardiovascular Problems/Disorders - cardiac cath Denies: Hx Congestive Heart Failure, Hx Pacemaker/ICD, Hx Valvular Heart Disease Respiratory History: Reports: Hx Chronic Obstructive Pulmonary Disease (COPD) - Pt denies though providers have diagnosed it, Hx Pneumonia, Hx Pulmonary Embolism - and DVT 30 yrs ago, Hx Seasonal Allergies, Other Respiratory Problems /Disorders - SMOKER Denies: Hx Asthma, Hx Sleep Apnea GI History: Reports: Hx Diverticulosis, Hx Gastroesophageal Reflux Disease, Hx Hiatal Hernia - 3 surgeries, Other GI Disorders - achalasia, Fernández's esophagus , gastroparesis, J tube Denies: Hx Ulcer History: Reports: Hx Kidney Infection, Hx Kidney Stones - LAST 12/2015- NO PROBLEMS SINCE PER PATIENT Denies: Hx Dialysis, Hx Renal Disease, Other Problems/Disorders Musculoskeletal History: Reports: Hx Back Problems, Other Musculoskeletal History - L1 fx Denies: Hx Arthritis, Hx Osteoporosis Sensory History: Reports: Hx Cataracts - bilat cataracts Denies: Hx Contacts or Glasses, Hx Hearing Aid Opthamlomology History: Reports: Hx Cataracts - bilat cataracts Denies: Hx Contacts or Glasses Neurological History: Reports: Hx Spinal Cord Injury - L1, Hx Transient Ischemic Attacks (TIA) Psychiatric History: Reports: Hx Anxiety Denies: Hx Panic Disorder - Cancer History Cancer Type, Location and Year: RT BREAST CA, 2009 HAD A BILATERAL MASTECTOMY Hx Chemotherapy: No Hx Radiation Therapy: No - Surgical History Surgery Procedure, Year, and Place: RT LUMPECTOMY 02/2010, BILATERAL MASTECTOMY ,. 2006& 2007 CARDIAC STENT AT [facility] IN [place],. LEFT KNEE SURGERY X10,. BILATERAL SHOULDER SURGERY,. ESPOHOGEAL SURGERY,1996, 2014. failed breast implant on left. PARTIAL HYSTERECTOMY, 1976. APPENDIX A CHILD,. CHEST TUBE, 1996. ESOPHAGEAL DILATION. NISSIN FUNDOLPICATION multiple. total left knee replacement 2015. kidney stone surgery. left chest wound surgery 2010. Insertion Infusaport 02/2018 Hx Anesthesia Reactions: No - Immunization History Date of Tetanus Vaccine: utd Date of Influenza Vaccine: fall 2016 Infectious Disease History: No Infectious Disease History: Reports: Hx Clostridium Difficile Denies: Hx Hepatitis, Hx Human Immunodeficiency Virus (HIV), Hx of Known/ Suspected MRSA, Hx Shingles, Hx Tuberculosis, Hx Known/Suspected VRE, Hx Known/ Suspected VRSA, History Other Infectious Disease, Traveled Outside the [place] in Last 30 Days - Family History Known Family History: Positive: Cardiac Disease - Father, 2 brothers - [place]. Mother - AFIB, Hypertension, Diabetes - Social History Alcohol Use: cannot be determined Hx Substance Use: No Substance Use Type: Reports: None Substance Use Comment - Amount & Last Used: prescribed Hx Tobacco Use: Yes Smoking Status (MU): Heavy Every Day Tobacco Smoker Type: Cigarettes Amount Used/How Often: 1/2 PPD Length of Time of Smoking/Using Tobacco: 40+ YEARS Have You Smoked in the Last Year: No Review of Systems Positive: Skin Diaphoresis. Negative: Fever Positive: Chest Pain Positive: Nausea Neurological: Other - NEGATIVE: DIZZINESS; POSITIVE: LIGHTHEADEDNESS All Other Systems Reviewed And Are Negative: Yes Physical Exam - Summary Physical Exam Summary: Appearance: Well-appearing, Well-nourished, lying in bed comfortably Skin: Warm, dry, no obvious rash Eyes: sclera anicteric, no conjunctival pallor ENT: mucous membranes moist, pharynx appears normal Neck: Supple, nontender Respiratory: Clear to auscultation, no signs of respiratory distress Cardiovascular: Normal S1, S2. No murmurs. Normal distal pulses in tibial and radial bilaterally. Abdomen: Soft, nontender, normal active bowel sounds present. Feeding tube placed in the epigastrium. Musculoskeletal: Normal, Strength/ROM Intact Neurological: A&Ox3, awake and alert, mentation is normal, speech is fluent and appropriate Psychiatric: affect is normal, does not appear anxious or depressed Triage Information Reviewed: Yes Vital Signs On Initial Exam: Initial Vitals Temp Pulse Resp BP Pulse Ox 99.3 F 91 20 192/126 96 11/05/18 11:58 11/05/18 11:58 11/05/18 11:58 11/05/18 11:58 11/05/18 11:58 Vital Signs Reviewed: Yes Diagnostics - Vital Signs Vital Signs Temp Pulse Resp BP Pulse Ox 11/05/18 11:58 99.3 F 91 20 192/126 96 - Laboratory Result Diagrams: 11/05/18 12:21 11/05/18 12:21 Lab Statement: Any lab studies that have been ordered have been reviewed, and results considered in the medical decision making process. - Radiology CXR Radiology Interpretation Completed By: Radiologist Summary of Radiographic Findings: Stigmata of obstructive lung disease. No acute pulmonary or cardiac process evident. ED PHYSICIAN REVIEWED THIS RADIOLOGY REPORT. - EKG 1207 Cardiac Rate: NL - 90 BPM EKG Rhythm: Sinus Rhythm - 90 BPM EKG Comparison: No Significant Change - NO SIGNIFICANT CHANGE FROM 10/23/2018. Summary of EKG Findings: LEFT VENTRICULAR HYPERTROPHY, INFERIOR INFARCT (OLD), ANTERIOR Q-WAVES POSSIBLY DUE TO LVH. Chest Pain Course/Dx - Course Course Of Treatment: A 63 y/o female brought in by ambulance presents to the ED c/o midsternal chest pain/discomfort. Currently, the patient is still experiencing chest pain reaching 10/10 in severity. According to the patient, she has been experiencing chest pain for the past 2 hours since being woken up by the sudden pain. She stated that all of a sudden she started experiencing heaviness in her chest "like someone is sitting on me" this morning which woke her up from sleep. She noted that she laid there for a few minutes and took NTG , however, it did not subside. Physical examination findings significant for feeding tube placed in the epigastrium. An EKG revealed NSR of 90 BPM, left ventricular hypertrophy, old inferior infarct, anterior q-waves possible due to LVH. A CXR revealed stigmata of obstructive lung disease. No acute pulmonary or cardiac process evident. Hematology and Chemistry screens were done. No significant laboratory abnormalities were found. In the ED course, the patient received Dilaudid, Transdate, Lopressor, Morphine, and Zofran. Patient will be discharged with a diagnosis of chest pain and hypokalemia. Patient is to follow up with primary care provider in 2-3 days. Patient is to return to ED for any new or worsening symptoms. Patient is agreeable with this plan. - Diagnoses Provider Diagnoses: Chest pain, Hypokalemia Discharge - Sign-Out/Discharge Documenting (check all that apply): Patient Departure - DISCHARGE - Discharge Plan Condition: Good Disposition: HOME Patient Education Materials: Chest Pain (ED), Hypokalemia (ED) Referrals: Trish Combs MD [Primary Care Provider] - Additional Instructions: We did not find any sign of cardiac disease on your evaluation, so it is safe to stay at home. Likely this is another flare of your chronic pain due to the achalasia. You can take your prescribed pin medication at home for this. RETURN TO ED FOR ANY NEW OR WORSENING SYMPTOMS. - Billing Disposition and Condition Condition: GOOD Disposition: Home - Attestation Statements Document Initiated by Kiarra: Yes Documenting Marielyibe: Mauricio Valdez Provider For Whom Kiarra is Documenting (Include Credential): Marc Barnes MD Scribzakiya Attestation: Mauricio Chatterjee, scribed for Marc Barnes MD on 11/05/18 at 1946. Scribe Documentation Reviewed: Yes Provider Attestation: The documentation as recorded by the Mauricio vyas accurately reflects the service I personally performed and the decisions made by me, Marc Barnes MD Status of Scribe Document: Viewed
[2018-11-05] MEDS ORDERED: Metoprolol Tartrate IV* 1 MG/ML 5 ML VIAL IV ONE (12:27)
[2018-11-05 12:33] LABS: ABS Basophils 0.1 10^3/ul (0-0.2); ABS Eosinophils 0 10^3/ul (0-0.6); ABS Lymphocytes 1.5 10^3/ul (1.0-4.8); ABS Monocytes 0.8 10^3/ul (0-0.8); ABS Neutrophils 9.6 10^3/ul (1.5-7.7); ABS Nucleated RBC 0 10^3/ul; Eosinophil % 0.1 %; Hematocrit 44 % (35-47); Hemoglobin 14.8 g/dl (12.0-16.0); Lymphocyte % 12.6 %; Mean Corpuscular HGB Conc 34 g/dl (31-36); Mean Corpuscular Hemoglobin 28 pg (27-31); Mean Corpuscular Volume 83 fL (80-97); Mean Platelet Volume 6.9 fL (7.4-10.4); Nucleated Red Blood Cells % 0.1; Platelet Count 498 10^3/ul (150-450); Red Cell Distribution Width 15 % (10.5-15)
[2018-11-05 12:55] LABS: Albumin 3.5 g/dL (3.2-5.2); Albumin/Globulin Ratio 0.9 (1-3); BUN/Creatinine Ratio 27.4 (8-20); Calcium 8.9 mg/dL (8.6-10.3); EGFR Non-African American 97.2 (>60); Globulin 3.8 g/dL (2-4); Potassium 2.9 mmol/L (3.5-5.0); Total Bilirubin 0.6 mg/dL (0.2-1.0); Total Protein 7.3 g/dL (6.4-8.9)
[2018-11-05] MEDS ORDERED: Morphine ORAL.SOLN 10 mg* 2 MG/ML UDC 5 ml PO ONE (16:56)
[2018-11-05 18:23] VITALS: BP 149/93
== END 2018-11-05 18:22 | disposition home or self-care (01) ==
LOC: ED 11:56
DX: R07.9 Chest pain, unspecified (principal); E87.6 Hypokalemia; F17.210 Nicotine dependence, cigarettes, uncomplicated; Z79.01 Long term (current) use of anticoagulants; I25.119 Atherosclerotic heart disease of native coronary artery with unspecified angina pectoris; Z86.718 Personal history of other venous thrombosis and embolism; J44.9 Chronic obstructive pulmonary disease, unspecified; K21.9 Gastro-esophageal reflux disease without esophagitis; Z87.442 Personal history of urinary calculi; I10 Essential (primary) hypertension; I25.2 Old myocardial infarction
CPT/HCPCS: 36415; 71045; 80053; 84484; 85025; 93005; 96374; 96375; 99284; A9270-GY; J1170; J2405; J3490

== ENCOUNTER 2018-12-12 10:56 | Emergency (ER) | payer OTHER ==
[2018-12-12] MEDS ORDERED: NS 0.9% 1000 ML** 1,000 ML IV ONE ×2 (11:35→12:54)
--- NOTE | 2018-12-12 11:41 | ED ---
Altered Mental Status - HPI Summary HPI Summary: Pt is a 63 y/o F presenting to the ED with a chief complaint of AMS. The pt reports she had an episode where she was out of it, she has not been eating much the past three days, and that she has abd soreness. The nurse she has at home sent her to the ED because she was out of it. The pt noted that her feeding tube was taken out about 1 wk ago and she has been eating on and off, also due to achalasia. - History Of Current Complaint Chief Complaint: EDAltMentalStatus Stated Complaint: GENERAL ILLNESS Time Seen by Provider: 12/12/18 11:12 Hx Obtained From: Patient Onset/Duration: Resolved, Suddenly Timing: Intermittent, Lasting Hours Severity Initially: Mild Severity Currently: Mild Character: Confusion, Lethargy Aggravating Factor(s): Nothing Alleviating Factor(s): Nothing Associated Signs And Symptoms: Positive: Nausea - Allergies/Home Medications Allergies/Adverse Reactions: Allergies Allergy/AdvReac Type Severity Reaction Status Date / Time albumin colloid, human Allergy Severe Anaphylatic Verified 12/04/18 14:47 Shock bee venom protein (honey bee) Allergy Severe Anaphylatic Verified 12/04/18 14:47 Shock Iodinated Contrast- Oral and Allergy Severe Anaphylatic Verified 12/04/18 14:47 IV Dye Shock onabotulinumtoxinA Allergy Severe Anaphylatic Verified 12/04/18 14:47 [From Botox] Shock Penicillins Allergy Severe Anaphylatic Verified 12/04/18 14:47 Shock shellfish derived Allergy Severe Anaphylatic Verified 12/04/18 14:47 Shock Adhesive Tape Allergy Mild Itching Verified 12/04/18 14:47 chlorhexidine Allergy Mild Rash And Verified 12/04/18 14:47 Itching latex Allergy Mild Hives Verified 12/04/18 14:47 NSAIDS (Non-Steroidal Allergy Mild Hives Verified 12/04/18 14:47 Anti-Inflamma povidone-iodine Allergy Mild Itching Verified 12/04/18 14:47 fentanyl Allergy Hallucinati Verified 12/04/18 14:47 ons Gadolinium-Containing Allergy Itching Verified 12/04/18 14:47 Contrast Medi ENVIRONMENTAL/SEASONAL Allergy Mild ITCHY,WATERY Uncoded 10/09/18 14:34 HAYFEVER EYES, SNEEZE, CONGESTION Home Medications: Home Medications Atorvastatin* [Lipitor 40 MG*] 40 mg J TUBE BEDTIME 12/12/18 [History Confirmed 12/12/18] Carisoprodol TAB* [Soma TAB*] 350 mg J TUBE QID 12/12/18 [History Confirmed ] Clopidogrel TAB* [Plavix TAB*] 75 mg J TUBE QAM 12/12/18 [History Confirmed ] amLODIPine TAB* [Norvasc 5 mg TAB*] 10 mg J TUBE DAILY 12/12/18 [History Confirmed 12/12/18] PMH/Surg Hx/FS Hx/Imm Hx Previously Healthy: No Endocrine/Hematology History: Reports: Hx Anticoagulant Therapy - plavix, Hx Anemia - possible Denies: Hx Diabetes, Hx Thyroid Disease Cardiovascular History: Reports: Hx Angina - has prn nitro, Hx Coronary Artery Disease - 2 stents- RCA stent 2006, LAD stent 2007, Hx Deep Vein Thrombosis, Hx Embolism, Hx Hypercholesterolemia, Hx Hypertension, Hx Myocardial Infarction, Hx Syncope, Other Cardiovascular Problems/Disorders - cardiac cath Denies: Hx Congestive Heart Failure, Hx Pacemaker/ICD, Hx Valvular Heart Disease Respiratory History: Reports: Hx Chronic Obstructive Pulmonary Disease (COPD) - Pt denies though providers have diagnosed it, Hx Pneumonia, Hx Pulmonary Embolism - and DVT 30 yrs ago, Hx Seasonal Allergies, Other Respiratory Problems /Disorders - SMOKER Denies: Hx Asthma, Hx Sleep Apnea GI History: Reports: Hx Diverticulosis, Hx Gastroesophageal Reflux Disease, Hx Hiatal Hernia - 3 surgeries, Other GI Disorders - achalasia, Fernández's esophagus , gastroparesis, J tube Denies: Hx Ulcer History: Reports: Hx Kidney Infection, Hx Kidney Stones - LAST 12/2015- NO PROBLEMS SINCE PER PATIENT Denies: Hx Dialysis, Hx Renal Disease, Other Problems/Disorders Musculoskeletal History: Reports: Hx Back Problems, Other Musculoskeletal History - L1 fx Denies: Hx Arthritis, Hx Osteoporosis Sensory History: Reports: Hx Cataracts - bilat cataracts Denies: Hx Contacts or Glasses, Hx Hearing Aid Opthamlomology History: Reports: Hx Cataracts - bilat cataracts Denies: Hx Contacts or Glasses Neurological History: Reports: Hx Spinal Cord Injury - L1, Hx Transient Ischemic Attacks (TIA) - 10/2017 [facility] [place] Psychiatric History: Reports: Hx Anxiety Denies: Hx Panic Disorder - Cancer History Cancer Type, Location and Year: RT BREAST CA, 2009 HAD A BILATERAL MASTECTOMY Hx Chemotherapy: No Hx Radiation Therapy: No - Surgical History Surgery Procedure, Year, and Place: RT LUMPECTOMY 02/2010, BILATERAL MASTECTOMY ,. 2006& 2007 CARDIAC STENT AT [facility] IN [place],. LEFT KNEE SURGERY X10,. BILATERAL SHOULDER SURGERY,. ESPOHOGEAL SURGERY,1996, 2015. failed breast implant on left. PARTIAL HYSTERECTOMY, 1976. APPENDIX A CHILD,. CHEST TUBE, 1996. ESOPHAGEAL DILATION. NISSIN FUNDOLPICATION multiple. total left knee replacement 2015. kidney stone surgery. left chest wound surgery 2010. Insertion Infusaport 02/2018 Hx Anesthesia Reactions: No - Immunization History Date of Tetanus Vaccine: utd Date of Influenza Vaccine: fall 2016 Infectious Disease History: Unable to Obtain/Confirm Infectious Disease History: Reports: Hx Clostridium Difficile Denies: Hx Hepatitis, Hx Human Immunodeficiency Virus (HIV), Hx of Known/ Suspected MRSA, Hx Shingles, Hx Tuberculosis, Hx Known/Suspected VRE, Hx Known/ Suspected VRSA, History Other Infectious Disease, Traveled Outside the US in Last 30 Days - Family History Known Family History: Positive: Cardiac Disease - Father, 2 brothers - [place]. Mother - AFIB, Hypertension, Diabetes - Social History Alcohol Use: None Hx Substance Use: No Substance Use Type: Reports: None Substance Use Comment - Amount & Last Used: prescribed Hx Tobacco Use: Yes Smoking Status (MU): Heavy Every Day Tobacco Smoker Type: Cigarettes Amount Used/How Often: 1/2 PPD Length of Time of Smoking/Using Tobacco: 40+ YEARS Have You Smoked in the Last Year: No Review of Systems Negative: Fever Positive: Abdominal Pain, Nausea All Other Systems Reviewed And Are Negative: Yes Physical Exam - Summary Physical Exam Summary: Appearance: The patient is well-nourished in no acute distress and in no acute pain. Skin: The skin is tense, warm and dry and skin color reflects adequate perfusion HEENT: The head is normocephalic and atraumatic. The pupils are equal and reactive. The conjunctivae are clear and without drainage. Nares are patent and without drainage. Mouth reveals dry mucous membranes and the throat is without erythema and exudate. The external ears are intact. The ear canals are patent and without drainage. The tympanic membranes are intact. Neck: The neck is supple with full range of motion and non-tender. There are no carotid bruits. There is no neck vein distension. Respiratory: Chest is non-tender. Lungs are clear to auscultation and breath sounds are symmetrical and equal. Cardiovascular: Heart is regular rate and rhythm. There is no murmur or rub auscultated. There is no peripheral edema and pulses are symmetrical and equal. Abdomen: There is mild diffuse abd tenderness. The G-tube site is mildly erythematous and has some mild yellow discharge. There are normal bowel sounds heard in all four quadrants and there is no organomegaly palpated. Musculoskeletal: There is no back tenderness noted. Extremities are non-tender with full range of motion. There is good capillary refill. There is no peripheral edema or calf tenderness elicited. Neurological: Patient is alert and oriented to person, place and time. The patient has symmetrical motor strength in all four extremities. Cranial nerves are grossly intact. Deep tendon reflexes are symmetrical and equal in all four extremities. Psychiatric: The patient has an appropriate affect and does not exhibit any anxiety or depression. Triage Information Reviewed: Yes Vital Signs On Initial Exam: Initial Vitals Temp Pulse Resp BP Pulse Ox 98.5 F 64 14 115/68 94 12/12/18 11:12 12/12/18 11:12 12/12/18 11:12 12/12/18 11:12 12/12/18 11:12 Vital Signs Reviewed: Yes Diagnostics - Vital Signs Vital Signs Temp Pulse Resp BP Pulse Ox 12/12/18 11:12 98.5 F 64 14 115/68 94 - Laboratory Result Diagrams: 12/12/18 11:40 12/12/18 11:40 Lab Statement: Any lab studies that have been ordered have been reviewed, and results considered in the medical decision making process. - Radiology Chest x-ray Radiology Interpretation Completed By: Radiologist Summary of Radiographic Findings: Hyperinflation, consistent with COPD. No active cardiopulmonary disease. ED physician has reviewed this report. - EKG 1154 Cardiac Rate: Bradycardia - 56bpm EKG Rhythm: Sinus Bradycardia ST Segment: Normal Ectopy: None Summary of EKG Findings: L axis deviation. Altered Mental Statu Course/Dx - Course Course Of Treatment: Ms. Prasad has been feeling well for a few days and has not been eating or drinking well. She cannot be more specific with her symptomatology although she denies abdominal pain or vomiting. She denies chest pain or shortness of breath also. She was not toxic here but did look dehydrated. Her vital signs are stable. She was given IV fluid while labs were obtained. Her BUN to creatinine ratio was elevated consistent with dehydration and she felt much improved after rehydration. At this point I will discharge her with recommendations for close follow-up. - Diagnoses Provider Diagnoses: Severe dehydration Discharge - Sign-Out/Discharge Documenting (check all that apply): Patient Departure Patient Received Moderate/Deep Sedation with Procedure: No - Discharge Plan Condition: Stable Disposition: HOME Referrals: Trish Combs MD [Primary Care Provider] - Additional Instructions: Please follow up with your primary care provider in 1-2 days. Return to the ED with any new or worsening symptoms. - Billing Disposition and Condition Condition: STABLE Disposition: Home - Attestation Statements Document Initiated by Kiarra: Yes Documenting Scribe: Nikki Mcgowan Provider For Whom Kiarra is Documenting (Include Credential): Marc Barnett MD. Scribe Attestation: Nikki Chatterjee scribed for Marc Barnett MD. on 12/12/18 at 2240. Scribe Documentation Reviewed: Yes Provider Attestation: The documentation as recorded by the afshinibeNikki accurately reflects the service I personally performed and the decisions made by , Marc Barnett MD. Status of Scribe Document: Viewed
[2018-12-12 11:49] LABS: ABS Basophils 0.1 10^3/ul (0-0.2); ABS Eosinophils 0.1 10^3/ul (0-0.6); ABS Lymphocytes 1.9 10^3/ul (1.0-4.8); ABS Monocytes 0.5 10^3/ul (0-0.8); ABS Neutrophils 4.8 10^3/ul (1.5-7.7); ABS Nucleated RBC 0 10^3/ul; Eosinophil % 1.7 %; Hematocrit 37 % (35-47); Hemoglobin 12.3 g/dl (12.0-16.0); Lymphocyte % 25.2 %; Mean Corpuscular HGB Conc 34 g/dl (31-36); Mean Corpuscular Hemoglobin 29 pg (27-31); Mean Corpuscular Volume 85 fL (80-97); Nucleated Red Blood Cells % 0; Platelet Count 259 10^3/ul (150-450); Red Blood Count 4.31 10^6/ul (4.00-5.40); Red Cell Distribution Width 15 % (10.5-15); White Blood Count 7.4 10^3/ul (3.5-10.8)
[2018-12-12 12:05] LABS: INR 0.93 (0.77-1.02)
[2018-12-12 12:07] LABS: Albumin 3.3 g/dL (3.2-5.2); Albumin/Globulin Ratio 1.3 (1-3); BUN/Creatinine Ratio 43.8 (8-20); C Reactive Protein 1.89 mg/L (<8.01); Calcium 8.4 mg/dL (8.6-10.3); EGFR African American 113.4 (>60); EGFR Non-African American 93.7 (>60); Globulin 2.5 g/dL (2-4); Magnesium 1.8 mg/dL (1.9-2.7); Potassium 3.9 mmol/L (3.5-5.0); Total Bilirubin 0.3 mg/dL (0.2-1.0); Total Protein 5.8 g/dL (6.4-8.9)
[2018-12-12 12:09] LABS: Troponin I 0.01 ng/mL (<0.04)
[2018-12-12 12:57] LABS: TSH (Thyroid Stimulating Horm) 0.91 mcIU/mL (0.34-5.60)
[2018-12-12 15:37] VITALS: BP 137/71
== END 2018-12-12 15:50 | disposition home or self-care (01) ==
LOC: ED 10:56
DX: E86.0 Dehydration (principal); F17.210 Nicotine dependence, cigarettes, uncomplicated; F41.9 Anxiety disorder, unspecified; Z85.3 Personal history of malignant neoplasm of breast; R00.1 Bradycardia, unspecified
CPT/HCPCS: 36415; 71046; 80053; 83605; 83735; 84443; 84484; 85025; 85610; 86140; 93005; 96360; 96361; 99283; J1642

== ENCOUNTER 2019-01-12 22:34 | Emergency (ER) | payer OTHER ==
--- NOTE | 2019-01-12 23:14 | ED ---
Complex/Multi-Sys Presentation - HPI Summary HPI Summary: The pt is a 63 y/o F presenting to the ED brought in by EMS for a fall. Per pt, a neighbor came to visit her and found her on the ground, who then told a different neighbor to call EMS. The pt states shes been out of it and not feeling good at all for about 3 days, with associated nausea and chest pain. She denies vomiting. She usually has a feeding tube that has fallen out 3-4 times now, so she tries to eat in small amount constantly, and gets fluids once a week. She fell about three times today, and last urinated about 4 hours ago. She has a hx of TIA. - History Of Current Complaint Chief Complaint: EDAbdPain Time Seen by Provider: 01/12/19 22:56 Hx Obtained From: Patient Onset/Duration: Gradual Onset, Lasting Days, Still Present Timing: Constant, Days Severity Currently: Moderate Severity Initially: Moderate Location: Pain At: - chest Aggravating Factor(s): none Alleviating Factor(s): none Associated Signs And Symptoms: Positive: Chest Pain, Nausea. Negative: Vomiting - Allergies/Home Medications Allergies/Adverse Reactions: Allergies Allergy/AdvReac Type Severity Reaction Status Date / Time albumin colloid, human Allergy Severe Anaphylatic Verified 12/04/18 14:47 Shock bee venom protein (honey bee) Allergy Severe Anaphylatic Verified 12/04/18 14:47 Shock Iodinated Contrast- Oral and Allergy Severe Anaphylatic Verified 12/04/18 14:47 IV Dye Shock onabotulinumtoxinA Allergy Severe Anaphylatic Verified 12/04/18 14:47 [From Botox] Shock Penicillins Allergy Severe Anaphylatic Verified 12/04/18 14:47 Shock shellfish derived Allergy Severe Anaphylatic Verified 12/04/18 14:47 Shock Adhesive Tape Allergy Mild Itching Verified 12/04/18 14:47 chlorhexidine Allergy Mild Rash And Verified 12/04/18 14:47 Itching latex Allergy Mild Hives Verified 12/04/18 14:47 NSAIDS (Non-Steroidal Allergy Mild Hives Verified 12/04/18 14:47 Anti-Inflamma povidone-iodine Allergy Mild Itching Verified 12/04/18 14:47 fentanyl Allergy Hallucinati Verified 12/04/18 14:47 ons Gadolinium-Containing Allergy Itching Verified 02/14/19 14:47 Contrast Medi ENVIRONMENTAL/SEASONAL Allergy Mild ITCHY,WATERY Uncoded 10/09/18 14:34 HAYFEVER EYES, SNEEZE, CONGESTION PMH/Surg Hx/FS Hx/Imm Hx Previously Healthy: No Endocrine/Hematology History: Reports: Hx Anticoagulant Therapy - plavix, Hx Anemia - possible Denies: Hx Diabetes, Hx Thyroid Disease Cardiovascular History: Reports: Hx Angina - has prn nitro, Hx Coronary Artery Disease - 2 stents- RCA stent 2006, LAD stent 2007, Hx Deep Vein Thrombosis, Hx Embolism, Hx Hypercholesterolemia, Hx Hypertension, Hx Myocardial Infarction, Hx Syncope, Other Cardiovascular Problems/Disorders - cardiac cath Denies: Hx Congestive Heart Failure, Hx Pacemaker/ICD, Hx Valvular Heart Disease Respiratory History: Reports: Hx Chronic Obstructive Pulmonary Disease (COPD) - Pt denies though providers have diagnosed it, Hx Pneumonia, Hx Pulmonary Embolism - and DVT 30 yrs ago, Hx Seasonal Allergies, Other Respiratory Problems /Disorders - SMOKER Denies: Hx Asthma, Hx Sleep Apnea GI History: Reports: Hx Diverticulosis, Hx Gastroesophageal Reflux Disease, Hx Hiatal Hernia - 3 surgeries, Other GI Disorders - achalasia, Fernández's esophagus , gastroparesis, J tube Denies: Hx Ulcer History: Reports: Hx Kidney Infection, Hx Kidney Stones - LAST 12/2015- NO PROBLEMS SINCE PER PATIENT Denies: Hx Dialysis, Hx Renal Disease, Other Problems/Disorders Musculoskeletal History: Reports: Hx Back Problems, Other Musculoskeletal History - L1 fx Denies: Hx Arthritis, Hx Osteoporosis Sensory History: Reports: Hx Cataracts - bilat cataracts Denies: Hx Contacts or Glasses, Hx Hearing Aid Opthamlomology History: Reports: Hx Cataracts - bilat cataracts Denies: Hx Contacts or Glasses Neurological History: Reports: Hx Spinal Cord Injury - L1, Hx Transient Ischemic Att[place] (TIA) [place] [facility] [place] History: Reports: Hx Anxiety Denies: Hx Panic Disorder - Cancer History Cancer Type, Location and Year: RT BREAST CA, 2009 HAD A BILATERAL MASTECTOMY Hx Chemotherapy: No Hx Radiation Therapy: No - Surgical History Surgery Procedure, Year, and Place: RT LUMPECTOMY 02/2010, BILATERAL MASTECTOMY ,. 2006& 2007 CARDIAC STENT AT [facility] IN [place],. LEFT KNEE SURGERY X10,. BILATERAL SHOULDER SURGERY,. ESPOHOGEAL SURGERY,1996, 2015. failed breast implant on left. PARTIAL HYSTERECTOMY, 1976. APPENDIX A CHILD,. CHEST TUBE, 1996. ESOPHAGEAL DILATION. NISSIN FUNDOLPICATION multiple. total left knee replacement 2015. kidney stone surgery. left chest wound surgery 2010. Insertion Infusaport 02/2018 Hx Anesthesia Reactions: No - Immunization History Date of Tetanus Vaccine: utd Date of Influenza Vaccine: fall 2016 Infectious Disease History: No Infectious Disease History: Reports: Hx Clostridium Difficile Denies: Hx Hepatitis, Hx Human Immunodeficiency Virus (HIV), Hx of Known/ Suspected MRSA, Hx Shingles, Hx Tuberculosis, Hx Known/Suspected VRE, Hx Known/ Suspected VRSA, History Other Infectious Disease, Traveled Outside the [place] in Last 30 Days - Family History Known Family History: Positive: Cardiac Disease - Father, 2 brothers - [place]. Mother - AFIB, Hypertension, Diabetes - Social History Lives: Alone Alcohol Use: None Hx Substance Use: No Substance Use Type: Reports: None Substance Use Comment - Amount & Last Used: prescribed Hx Tobacco Use: Yes Smoking Status (MU): Heavy Every Day Tobacco Smoker Type: Cigarettes Amount Used/How Often: 1/2 PPD Length of Time of Smoking/Using Tobacco: 40+ YEARS Have You Smoked in the Last Year: No Review of Systems Positive: Chest Pain Positive: Nausea. Negative: Vomiting Neurological: Other - feels "not herself" All Other Systems Reviewed And Are Negative: Yes Physical Exam - Summary Physical Exam Summary: VITAL SIGNS: Reviewed. GENERAL: Patient is a very thin and tremulous female who is lying comfortable in the stretcher. Patient is not in any acute respiratory distress. HEAD AND FACE: No signs of trauma. No ecchymosis, hematomas or skull depressions. No sinus tenderness. EYES: PERRLA, EOMI x 2, No injected conjunctiva, no nystagmus. EARS: Hearing grossly intact. Ear canals and tympanic membranes are within normal limits. MOUTH: Oropharynx within normal limits. NECK: Supple, trachea is midline, no adenopathy, no JVD, no carotid bruit, no c- spine tenderness, neck with full ROM. CHEST: Symmetric, no tenderness at palpation LUNGS: Clear to auscultation bilaterally. No wheezing or crackles. CVS: Regular rate and rhythm, S1 and S2 present, no murmurs or gallops appreciated. ABDOMEN: Soft, non-tender. No signs of distention. No rebound no guarding, and no masses palpated. Bowel sounds are normal. EXTREMITIES: FROM in all major joints, no edema, no cyanosis or clubbing. NEURO: Alert and oriented x 3. No acute neurological deficits. Speech is normal and follows commands. Mild dysarthria/aphasia SKIN: Dry and warm GCS: 15 Triage Information Reviewed: Yes Vital Signs On Initial Exam: Initial Vitals Temp Pulse Resp BP Pulse Ox 97.9 F 72 16 195/123 97 01/12/19 22:38 01/12/19 22:38 01/12/19 22:38 01/12/19 22:38 01/12/19 22:38 Vital Signs Reviewed: Yes Diagnostics - Vital Signs Vital Signs Temp Pulse Resp BP Pulse Ox 01/12/19 22:38 97.9 F 72 16 195/123 97 - Laboratory Result Diagrams: 01/13/19 00:00 01/13/19 00:00 Lab Statement: Any lab studies that have been ordered have been reviewed, and results considered in the medical decision making process. - Radiology CXR Radiology Interpretation Completed By: ED Physician Summary of Radiographic Findings: No acute process. Pending official radiology report. - CT Brain CT CT Interpretation Completed By: Radiologist Summary of CT Findings: 1. No acute intracranial findings. 2. No significant change in nonspecific patchy periventricular and deep subcortical white matter hypodensities. These may be the result of chronic small vessel ischemic change but demyelinating disease is in the differential. ED physician has reviewed this report. - EKG 2249 Cardiac Rate: NL - 71bpm EKG Rhythm: Sinus Rhythm ST Segment: Normal Ectopy: None Summary of EKG Findings: LVH. Left axis deviation. Re-Evaluation - Re-Evaluation 1st re-eval Re-Evaluation Time: 02:30 Change: Improved Comment: The pt ambulated around the ED at her baseline with no present symptoms. Her dysarthria and aphasia have resolved. Complex Multi-Symp Course/Dx Course Of Treatment: The pt is a 63 y/o F presenting to the ED brought in by EMS for a fall. The pt states shes been out of it and not feeling good at all for about 3 days, with associated nausea and chest pain. She fell about three times today, and last urinated about 4 hours ago. She has a hx of TIA. EKG shows NSR at 71bpm, LVH, and left axis deviation. CXR shows no acute process. Brain CT shows 1. No acute intracranial findings. 2. No significant change in nonspecific patchy periventricular and deep subcortical white matter hypodensities. These may be the result of chronic small vessel ischemic change but demyelinating disease is in the differential. The pt ambulated around the emergency department asymptomatically at her baseline ability at 0230. Her dysarthria and aphasia have resolved. As of 329, I discussed the case with Dr. Olivera who states the pt has been admitted [place] [facility] [place] for the same type of episode. She has had a full workup done and nothing has been conclusive. He is going to call neurology to see if they will schedule an outpatient follow up with her. In the meantime, she can be discharged with dx including TIA and UTI, and instructions to continue her current medication. - Diagnoses Provider Diagnoses: UTI (urinary tract infection), TIA (transient ischemic attack) Discharge - Sign-Out/Discharge Documenting (check all that apply): Patient Departure Patient Received Moderate/Deep Sedation with Procedure: No - Discharge Plan Condition: Stable Disposition: HOME Referrals: Trish Combs MD [Primary Care Provider] - Additional Instructions: Please continue your current medication and take your prescribed medications as instructed. Follow up with neurology as soon as possible. Return to the emergency department with any new or worsening symptoms. - Attestation Statements Document Initiated by Scribe: Yes Documenting Scribe: Nikki Mcgowan Provider For Whom Kiarra is Documenting (Include Credential): Aziza Bueno MD. Scribe Attestation: Nikki Chatterjee, scribed for Aziza Bueno MD. on 01/13/19 at 0337. Consult Consult: 329 - I discussed the case with Dr. Olivera who states the pt has been admitted to [facility] [place] for the same type of episode. She has had a full workup done and nothing has been conclusive. He is going to call neurology to see if they will schedule an outpatient follow up with her. In the meantime, she will be discharged with instructions to follow up with neurology and continue her medications as instructed.
[2019-01-12] MEDS ORDERED: NS 0.9% 1000 ML** 2,000 ML IV ONE (23:22)
[2019-01-12] MEDS ORDERED: Ondansetron INJ* 2 MG/ML VIAL IV ONE (23:23)
[2019-01-12] MEDS ORDERED: Morphine 4 MG/ML VIAL (1 ml) 4 MG/ML VIAL IV ONE (23:23)
[2019-01-12] MEDS ORDERED: Dextrose 50% Syringe 50 ML* 25 GM/50 ML SYRINGE IV PUSH ONE (23:35)
[2019-01-13] MEDS ORDERED: Dextrose 50% VIAL 50 ml ONE (00:03)
[2019-01-13 00:07] LABS: ABS Basophils 0.1 10^3/ul (0-0.2); ABS Eosinophils 0.1 10^3/ul (0-0.6); ABS Lymphocytes 1.5 10^3/ul (1.0-4.8); ABS Monocytes 0.5 10^3/ul (0-0.8); ABS Neutrophils 4.8 10^3/ul (1.5-7.7); ABS Nucleated RBC 0 10^3/ul; Eosinophil % 1.2 %; Hematocrit 40 % (33-41); Hemoglobin 13.3 g/dL (12.0-16.0); Lymphocyte % 21.3 %; Mean Corpuscular HGB Conc 34 g/dL (31-36); Mean Corpuscular Hemoglobin 28 pg (27-31); Mean Corpuscular Volume 83 fL (80-97); Mean Platelet Volume 7.8 fL (7.4-10.4); Nucleated Red Blood Cells % 0; Platelet Count 258 10^3/uL (150-450); Red Blood Count 4.75 10^6 /uL (3.70-4.87); Red Cell Distribution Width 15 % (10.5-15); White Blood Count 6.9 10^3/uL (3.5-10.8)
[2019-01-13] MEDS ORDERED: Dextrose 50% VIAL 50 ml IV ONE (00:13)
[2019-01-13 00:18] LABS: Activated Partial Thrombo Time 82.8 seconds (26.0-36.3); INR 0.89 (0.77-1.02)
[2019-01-13 00:26] LABS: Troponin I 0.01 ng/mL (<0.04)
[2019-01-13 00:27] LABS: Albumin/Globulin Ratio 1.4 (1-3); BUN/Creatinine Ratio 35.9 (8-20); Calcium 8.8 mg/dL (8.6-10.3); EGFR African American 113.4 (>60); EGFR Non-African American 93.7 (>60); Globulin 2.8 g/dL (2-4); Magnesium 1.8 mg/dL (1.9-2.7); Potassium 3.7 mmol/L (3.5-5.0); Total Bilirubin 0.4 mg/dL (0.2-1.0); Total Protein 6.8 g/dL (6.4-8.9)
[2019-01-13 01:11] LABS: TSH (Thyroid Stimulating Horm) 0.72 mcIU/mL (0.34-5.60)
[2019-01-13] MEDS ORDERED: Morphine 4 MG/ML VIAL (1 ml) 4 MG/ML VIAL IV ONE (01:12)
[2019-01-13 02:36] LABS: Urine Appearance Cloudy; Urine Bacteria Absent (Absent); Urine Bilirubin Negative (Negative); Urine Blood 2+ (Negative); Urine Color Yellow; Urine Glucose 2+(150 mg/dL) (Negative); Urine Ketones 1+ (Negative); Urine Nitrite Negative (Negative); Urine Protein Negative (Negative); Urine Red Blood Cell 2+(6-10/hpf) (Absent); Urine Specific Gravity 1.023 (1.010-1.030); Urine Squamous Epithelial Cell Present (Absent); Urine Urobilinogen Negative (Negative); Urine White Blood Cell Trace(0-5/hpf) (Absent)
[2019-01-13] MEDS ORDERED: Aspirin TAB* 325 MG PO ONE (02:53)
[2019-01-13] MEDS ORDERED: Levofloxacin TAB* 500 MG PO ONE (02:54)
[2019-01-13 03:09] LABS: Barbiturates Urine Screen None Detected (None Detect); Benzodiazepine Urine Screen None Detected (None Detect); Urine Cannabinoids Screen None Detected (None Detect)
[2019-01-13 04:13] VITALS: BP 176/90
== END 2019-01-13 04:13 | disposition home or self-care (01) ==
LOC: ED 22:34
DX: N39.0 Urinary tract infection, site not specified (principal); G45.9 Transient cerebral ischemic attack, unspecified; I44.4 Left anterior fascicular block; R11.0 Nausea; I25.119 Atherosclerotic heart disease of native coronary artery with unspecified angina pectoris; I25.2 Old myocardial infarction; I10 Essential (primary) hypertension; Z95.5 Presence of coronary angioplasty implant and graft; Z86.73 Personal history of transient ischemic attack (TIA), and cerebral infarction without residual deficits; Z86.718 Personal history of other venous thrombosis and embolism; Z79.01 Long term (current) use of anticoagulants; Z96.652 Presence of left artificial knee joint; Z88.6 Allergy status to analgesic agent; Z91.030 Bee allergy status; Z91.041 Radiographic dye allergy status; Z91.040 Latex allergy status; Z88.5 Allergy status to narcotic agent; Z88.0 Allergy status to penicillin; Z91.013 Allergy to seafood; Z88.8 Allergy status to other drugs, medicaments and biological substances; Z91.048 Other nonmedicinal substance allergy status; F17.210 Nicotine dependence, cigarettes, uncomplicated
CPT/HCPCS: 36415; 70450; 71045; 80053; 80307; 81003; 81015; 82803; 83605; 83735; 84443; 84484; 85025; 85610; 85730; 87086; 93005; 96361; 96374; 96375; 96376; 99283; J2270; J2405

== ENCOUNTER 2019-02-08 19:51 | Observation (INO) | payer OTHER ==
[2019-02-08] MEDS ORDERED: NS 0.9% 1000 ML** 2,000 ML IV ONE (20:15)
[2019-02-08] MEDS ORDERED: Morphine 4 MG/ML VIAL (1 ml) 4 MG/ML VIAL IV ONE ×2 (20:15→21:51)
[2019-02-08] MEDS ORDERED: Ondansetron INJ* 2 MG/ML VIAL IV ONE (20:15)
--- NOTE | 2019-02-08 20:16 | ED ---
Complex/Multi-Sys Presentation - HPI Summary HPI Summary: A 64 y/o F brought in by ambulance with pert PMHx: varsha presents to ED with c/o diffuse abd pain onset a few days ago. She says it's her typical abd pain but her medications aren't alleviating the pain. Associated sx: fever, dry heaving. Denies respiratory stress, BOTELLO. Pt has a port in L chest. Vitals at bedside: HR: 84 bpm, BP: 213/121. - History Of Current Complaint Chief Complaint: EDHypertension Time Seen by Provider: 02/08/19 20:09 Hx Obtained From: Patient Onset/Duration: Lasting Days, Still Present Timing: Constant Severity Currently: Severe - 10 out of 10 Severity Initially: Moderate Associated Signs And Symptoms: Positive: Abdominal Pain, Fever, Other - pos: dry heaving. Negative: Headache, SOB, Cough, Wheezing, Hemoptysis - Allergies/Home Medications Allergies/Adverse Reactions: Allergies Allergy/AdvReac Type Severity Reaction Status Date / Time albumin colloid, human Allergy Severe Anaphylatic Verified 02/08/19 20:00 Shock bee venom protein (honey bee) Allergy Severe Anaphylatic Verified 02/08/19 20:00 Shock Iodinated Contrast- Oral and Allergy Severe Anaphylatic Verified 02/08/19 20:00 IV Dye Shock onabotulinumtoxinA Allergy Severe Anaphylatic Verified 02/08/19 20:00 [From Botox] Shock Penicillins Allergy Severe Anaphylatic Verified 02/08/19 20:00 Shock shellfish derived Allergy Severe Anaphylatic Verified 02/08/19 20:00 Shock Adhesive Tape Allergy Mild Itching Verified 02/08/19 20:00 chlorhexidine Allergy Mild Rash And Verified 02/08/19 20:00 Itching latex Allergy Mild Hives Verified 02/08/19 20:00 NSAIDS (Non-Steroidal Allergy Mild Hives Verified 02/08/19 20:00 Anti-Inflamma povidone-iodine Allergy Mild Itching Verified 02/08/19 20:00 fentanyl Allergy Hallucinati Verified 02/08/19 20:00 ons Gadolinium-Containing Allergy Itching Verified 02/08/19 20:00 Contrast Medi ENVIRONMENTAL/SEASONAL Allergy Mild ITCHY,WATERY Uncoded 02/08/19 20:00 HAYFEVER EYES, SNEEZE, CONGESTION PMH/Surg Hx/FS Hx/Imm Hx Previously Healthy: No Endocrine/Hematology History: Reports: Hx Anticoagulant Therapy - plavix, Hx Anemia - possible Denies: Hx Diabetes, Hx Thyroid Disease Cardiovascular History: Reports: Hx Angina - has prn nitro, Hx Coronary Artery Disease - 2 stents- RCA stent 2006, LAD stent 2007, Hx Deep Vein Thrombosis, Hx Embolism, Hx Hypercholesterolemia, Hx Hypertension, Hx Myocardial Infarction, Hx Syncope, Other Cardiovascular Problems/Disorders - cardiac cath Denies: Hx Congestive Heart Failure, Hx Pacemaker/ICD, Hx Valvular Heart Disease Respiratory History: Reports: Hx Chronic Obstructive Pulmonary Disease (COPD) - Pt denies though providers have diagnosed it, Hx Pneumonia, Hx Pulmonary Embolism - and DVT 30 yrs ago, Hx Seasonal Allergies, Other Respiratory Problems /Disorders - SMOKER Denies: Hx Asthma, Hx Sleep Apnea GI History: Reports: Hx Diverticulosis, Hx Gastroesophageal Reflux Disease, Hx Hiatal Hernia - 3 surgeries, Other GI Disorders - achalasia, Fernández's esophagus , gastroparesis, J tube Denies: Hx Ulcer History: Reports: Hx Kidney Infection, Hx Kidney Stones - LAST 12/2015- NO PROBLEMS SINCE PER PATIENT Denies: Hx Dialysis, Hx Renal Disease, Other Problems/Disorders Musculoskeletal History: Reports: Hx Back Problems, Other Musculoskeletal History - L1 fx Denies: Hx Arthritis, Hx Osteoporosis Sensory History: Reports: Hx Cataracts - bilat cataracts Denies: Hx Contacts or Glasses, Hx Hearing Aid Opthamlomology History: Reports: Hx Cataracts - bilat cataracts Denies: Hx Contacts or Glasses Neurological History: Reports: Hx Spinal Cord Injury - L1, Hx Transient Ischemic Attacks (TIA) - [place] [facility] [place] Psychiatric History: Reports: Hx Anxiety Denies: Hx Panic Disorder - Cancer History Cancer Type, Location and Year: RT BREAST CA, 2009 HAD A BILATERAL MASTECTOMY Hx Chemotherapy: No Hx Radiation Therapy: No - Surgical History Surgery Procedure, Year, and Place: RT LUMPECTOMY 02/2010, BILATERAL MASTECTOMY ,. 2006& 2007 CARDIAC STENT AT [facility] IN [place],. LEFT KNEE SURGERY X10,. BILATERAL SHOULDER SURGERY,. ESPOHOGEAL SURGERY,1996, 2015. failed breast implant on left. PARTIAL HYSTERECTOMY, 1976. APPENDIX A CHILD,. CHEST TUBE, 1996. ESOPHAGEAL DILATION. NISSIN FUNDOLPICATION multiple. total left knee replacement 2015. kidney stone surgery. left chest wound surgery 2010. Insertion Infusaport 02/2018 Hx Anesthesia Reactions: No - Immunization History Date of Tetanus Vaccine: utd Date of Influenza Vaccine: fall 2016 Infectious Disease History: No Infectious Disease History: Reports: Hx Clostridium Difficile Denies: Hx Hepatitis, Hx Human Immunodeficiency Virus (HIV), Hx of Known/ Suspected MRSA, Hx Shingles, Hx Tuberculosis, Hx Known/Suspected VRE, Hx Known/ Suspected VRSA, History Other Infectious Disease, Traveled Outside the [place] in Last 30 Days - Family History Known Family History: Positive: Cardiac Disease - Father, 2 brothers - [place]. Mother - AFIB, Hypertension, Diabetes - Social History Occupation: Disabled Lives: Alone Alcohol Use: None Hx Substance Use: No Substance Use Type: Reports: None Substance Use Comment - Amount & Last Used: prescribed Hx Tobacco Use: Yes Smoking Status (MU): Heavy Every Day Tobacco Smoker Type: Cigarettes Amount Used/How Often: 1/2 PPD Length of Time of Smoking/Using Tobacco: 40+ YEARS Have You Smoked in the Last Year: No Review of Systems Positive: Fever Respiratory: Negative Positive: Abdominal Pain - severe, Other - pos: dry heaving Negative: Headache All Other Systems Reviewed And Are Negative: Yes Physical Exam - Summary Physical Exam Summary: Appearance: Chronically ill-appearing, lying in bed and appears uncomfortable, mildly tachypneic. Vitals are notable for elevated BP. Skin: Warm, dry, no obvious rash Eyes: sclera anicteric, no conjunctival pallor ENT: mucous membranes moist, pharynx appears normal Neck: Supple, nontender Respiratory: Clear to auscultation, no signs of respiratory distress Cardiovascular: Normal S1, S2. No murmurs. Normal distal pulses in tibial and radial bilaterally. Abdomen: Soft, nontender, normal active bowel sounds present Musculoskeletal: Normal, Strength/ROM Intact Neurological: A&Ox3, awake and alert, mentation is normal, speech is fluent and appropriate Psychiatric: affect is normal, does not appear anxious or depressed Triage Information Reviewed: Yes Vital Signs On Initial Exam: Initial Vitals Temp Pulse Resp BP Pulse Ox 99.5 F 84 17 257/135 98 02/08/19 19:52 02/08/19 19:52 02/08/19 19:52 02/08/19 19:52 02/08/19 19:52 Vital Signs Reviewed: Yes Diagnostics - Vital Signs Vital Signs Temp Pulse Resp BP Pulse Ox 02/08/19 20:00 83 22 98 02/08/19 19:58 82 25 213/121 98 02/08/19 19:52 99.5 F 84 17 257/135 98 - Laboratory Result Diagrams: 02/08/19 20:35 02/08/19 20:35 Lab Statement: Any lab studies that have been ordered have been reviewed, and results considered in the medical decision making process. - CT A/P CT CT Interpretation Completed By: Radiologist Summary of CT Findings: IMPRESSION: 1. No CT findings to correlate with patient 's symptomatology. 2. Left adrenal adenoma. No followup indicated. 3. Bosniak type I renal cyst. Right nephrolithiasis. No followup indicated. 4. 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 ED provider has reviewed this report. - EKG 2005 Cardiac Rate: NL - 79 bpm EKG Rhythm: Sinus Rhythm Summary of EKG Findings: No STEMI. T-wave inversion in V2; mild ST depression in lateral leads. Re-Evaluation - Re-Evaluation 1 Re-Evaluation Time: 21:34 Change: Unchanged Comment: Pt is still in a lot of pain. Complex Multi-Symp Course/Dx Course Of Treatment: Pt is a 64 y/o F with pert PMHx: achalasia presenting with diffuse abd pain, dry heaving and fever onset a few days ago. Pt has BP of 213/ 121 at bedside. Denies respiratory stress, BOTELLO. Lab work shows WBC: 18.3, RBC: 5.11, BUN: 38, BUN/C: 45.8, glucose: 134, CRP: 13.6. Sodium, chloride and lipase are low. Critical labs: CO2: 14. ABG shows ph: 7.5, pCO2 < 20, base excess: -6.5. A/P CT shows "1. No CT findings to correlate with patient's symptomatology. 2. Left adrenal adenoma. No followup indicated. 3. Bosniak type I renal cyst. Right nephrolithiasis. No followup indicated. 4. 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 Consulted with Dr. Olivera, hospitalist, who will admit patient. - Diagnoses Provider Diagnoses: Intractable nausea and vomiting, Achalasia - Physician Notifications Discussed Care Of Patient With: Tin Olivera - hospitalist Time Discussed With Above Provider: 23:28 Instructed by Provider To: MD Will See In ED Discharge - Sign-Out/Discharge Documenting (check all that apply): Patient Departure - ADMIT Patient Received Moderate/Deep Sedation with Procedure: No - Discharge Plan Condition: Fair Disposition: ADMITTED TO [facility] - Billing Disposition and Condition Condition: FAIR Disposition: Admitted to [facility] - Attestation Statements Document Initiated by Scribe: Yes Documenting Scribe: Jane Araya Provider For Whom Kiarra is Documenting (Include Credential): Dr. Marc Barnes MD Scribe Attestation: IJane, scribed for Dr. Marc Barnes MD on 02/09/19 at 0254. Scribe Documentation Reviewed: Yes Provider Attestation: The documentation as recorded by the Jane vyas accurately reflects the service I personally performed and the decisions made by me, Dr. Marc Barnes MD Status of Scribe Document: Viewed
[2019-02-08 20:45] LABS: ABS Basophils 0.1 10^3/ul (0-0.2); ABS Eosinophils 0 10^3/ul (0-0.6); ABS Lymphocytes 0.8 10^3/ul (1.0-4.8); ABS Monocytes 0.7 10^3/ul (0-0.8); ABS Neutrophils 16.7 10^3/ul (1.5-7.7); ABS Nucleated RBC 0 10^3/ul; Eosinophil % 0 %; Hematocrit 43 % (33-41); Hemoglobin 14.3 g/dL (12.0-16.0); Lymphocyte % 4.3 %; Mean Corpuscular HGB Conc 34 g/dL (31-36); Mean Corpuscular Hemoglobin 28 pg (27-31); Mean Corpuscular Volume 84 fL (80-97); Mean Platelet Volume 8.4 fL (7.4-10.4); Nucleated Red Blood Cells % 0; Platelet Count 329 10^3/uL (150-450); Red Blood Count 5.11 10^6 /uL (3.70-4.87); Red Cell Distribution Width 16 % (10.5-15); White Blood Count 18.3 10^3/uL (3.5-10.8)
[2019-02-08 21:02] LABS: ALT 12 U/L (7-52); AST 21 U/L (13-39); Albumin 4.3 g/dL (3.2-5.2); Albumin/Globulin Ratio 1.3 (1-3); Alkaline Phosphatase 80 U/L (34-104); BUN/Creatinine Ratio 45.8 (8-20); Blood Urea Nitrogen 38 mg/dL (6-24); C Reactive Protein 13.62 mg/L (<8.01); Chloride 99 mmol/L (101-111); EGFR African American 83.7 (>60); EGFR Non-African American 69.2 (>60); Globulin 3.3 g/dL (2-4); Glucose 134 mg/dL (70-100); Potassium 3.9 mmol/L (3.5-5.0); Sodium 132 mmol/L (135-145); Total Protein 7.6 g/dL (6.4-8.9)
[2019-02-08 21:15] LABS: Anion Gap 19 mmol/L (2-11); CO2 Carbon Dioxide 14 mmol/L (22-32)
[2019-02-08] MEDS ORDERED: Labetalol IV* 5 MG/ML 20 ML VIAL IV PUSH ONE (22:31)
[2019-02-09] MEDS ORDERED: HYDROmorphone INJ1* 1 MG/ML SYRINGE IV SLOW PU PRN (01:10)
[2019-02-09] MEDS ORDERED: Artificial Tears* 15 ML BTL BOTH EYES PRN (01:12)
[2019-02-09] MEDS ORDERED: diPHENhydraMINE LIQ* 12.5 MG/5 ML UDC J TUBE PRN (01:12)
[2019-02-09] MEDS ORDERED: Albuterol HFA INHALER* 8 gm MDI INH PRN (01:12)
[2019-02-09] MEDS ORDERED: Acetaminophen ADULT LIQ* 650 MG/20.3 ML UDC G TUBE PRN (01:12)
[2019-02-09] MEDS ORDERED: Nitroglycerin TAB 0.4 MG* 0.4 MG TAB SL PRN (01:12)
[2019-02-09] MEDS ORDERED: NS 0.9% 1000 ML** 1,000 ML IV SCH (01:15)
[2019-02-09] MEDS ORDERED: Acetaminophen TAB* 325 MG PO PRN (02:59)
--- NOTE | 2019-02-09 02:59 | ADMNOTE ---
Subjective Date of Service: 02/09/19 Interval History: HISTORY AND PHYSICAL PCP: Dr. Combs CC: abdominal pain HPI: Patient is 64 year old woman with history of achalasia, recurrent abdominal pain, who reports 2 days of intractable epigastric pain and dry heaves. The pain begins first, is rated at 10/10, then leads to dry heaves. She has had not vomiting or diarrhea. She lives with 2-4/10 pain all the time, and has recurrences of pain at 8-10/10. No fevers are noted. Patient sees a Dr. Buckley in [place] re achalasia, has had mytomies, and botox , among other treatments. She has had 2 Godwin fundoplications in the past. Family History: Unchanged from Admission - Father of [place] age 52, mother has a-fib, 2 brothers with CAD, lymphoma and breast cancer in other relatives Social History: Unchanged from Admission - Lives alone, daughter Ela is in area, is HCP, patient is disabled. Smokes 1/2 PPD, no alcohol or drug use. Past Medical History: Unchanged from Admission - CAD, s/p [place] X2, achalasia, anemia, h/o DVT/PE, kidney stones, h/o breast cancer on RT, h/o TIA, osteoarthritis, L1 compression fracture; PSH RT breast lumpectomy, bilateral mastectomy, implant failure on LT, Godwin X2, appendectomy, partial hysterectomy , esophageal dilation, J-tube (fell out in Dec 09) Review of Systems - Measurements Intake and Output: Intake and Output Last 24 Hours 02/06/19 02/07/19 02/08/19 02/09/19 06:59 06:59 06:59 06:59 Intake Total 1999 Balance 1999 Weight 45.359 kg Intake: IV Fluids 1999 - Review of Systems Constitutional Symptoms: Positive: Weight Loss Dermatology: Positive: Normal HEENT: Positive: Normal Eyes: Positive: Normal Thyroid: Positive: Normal Pulmonary: Positive: Normal Cardiology: Positive: Normal Gastroenterology: Positive: Abdominal Pain, Nausea, Difficulty Swallowing Negative: Vomiting, Heartburn, Constipation, Melena Genital - Urinary: Positive: Normal Genitourinay - Female: Positive: Menopause Musculoskeletal: Positive: Joint Pain Endocrinology: Positive: Normal Hematologic/Lymphatic: Positive: Anemia Neurology: Positive: Normal Psychiatry: Positive: Normal Objective Active Medications: Home Medications Acetaminophen (Tylenol Adult Liq*) 650 mg G TUBE BID PRN PRN Reason: PAIN Albuterol (Ventolin Hfa Inhaler*) 2 puff INH Q4HR PRN PRN Reason: WHEEZING Amlodipine Besylate (Norvasc Tab*) 10 mg J TUBE DAILY ZENA Atorvastatin Calcium (Lipitor*) 40 mg J TUBE BEDTIME ZENA Carisoprodol (Soma Tab*) 350 mg .SEE ORDER QID ZENA Clopidogrel Bisulfate (Plavix Tab*) 75 mg .SEE ORDER QAM ZENA Diphenhydramine HCl (Benadryl Liq*) 50 mg J TUBE Q6H PRN PRN Reason: ITCHING Losartan Potassium (Cozaar Tab*) 50 mg J TUBE QAM ZENA Metoprolol Tartrate (Lopressor Tab*) 50 mg J TUBE BID ZENA Morphine Sulfate (Ms Contin(*)) 60 mg PO 0600,1400,2200 ZENA Nitroglycerin (Nitroglycerin Tab 0.4 Mg*) 0.4 mg SL Q5M PRN PRN Reason: chest pain Ondansetron 4 mg PO QID prn Pantoprazole Sodium (Protonix Tab*) 40 mg .SEE ORDER DAILY ZENA Polyvinyl Alcohol (Polyvinyl Alcohol 1.4% Opth*) 1 drop BOTH EYES Q2H PRN PRN Reason: DRY EYE Dilaudid 8 mg PO q4h prn Vital Signs - 8 hr 02/08/19 02/08/19 02/08/19 19:52 19:58 20:00 Temperature 37.5 C Pulse Rate 84 82 83 Respiratory 17 25 22 Rate Blood Pressure 257/135 213/121 (mmHg) O2 Sat by Pulse 98 98 98 Oximetry 02/08/19 02/08/19 02/08/19 22:36 22:40 22:57 Temperature Pulse Rate 83 75 72 Respiratory 18 24 17 Rate Blood Pressure 216/125 190/105 144/86 (mmHg) O2 Sat by Pulse 96 94 94 Oximetry 02/08/19 02/08/19 02/08/19 23:00 23:27 23:57 Temperature Pulse Rate 71 72 72 Respiratory 19 15 19 Rate Blood Pressure 137/81 144/88 (mmHg) O2 Sat by Pulse 95 93 94 Oximetry Oxygen Devices in Use Now: None Appearance: chronically ill appearing Eyes: No Scleral Icterus Ears/Nose/Mouth/Throat: NL Teeth, Lips, Gums Neck: NL Appearance and Movements; NL JVP Respiratory: Symmetrical Chest Expansion and Respiratory Effort, Clear to Auscultation Cardiovascular: NL Sounds; No Murmurs; No JVD, RRR Abdominal: No Hepatosplenomegaly, - - no J-tube present, tender RLQ, soft, no rebound Lymphatic: No Cervical Adenopathy Extremities: No Edema Skin: No Rash or Ulcers Neurological: Alert and Oriented x 3 Lines/Tubes/Other Access: Clean, Dry and Intact Peripheral IV Nutrition: Taking PO's Result Diagrams: 02/08/19 20:35 02/08/19 20:35 Additional Lab and Data: Laboratory Tests 02/08/19 02/08/19 02/08/19 20:35 20:35 21:35 ABG pH 7.50 H ABG pCO2 < 20 L ABG pO2 90 Glucose 134 H Lactic Acid 1.9 C-Reactive Protein 13.62 H Lipase < 10 L Diagnostic Imaging: CT abdomen/pelvis: LT adrenal adenoma, chronically dilated bile ducts EKG Data: NSR, T-wave inversion V2, mild ST depression V4-6, and III, aVF, no change from 01/10/19 Assess/Plan/Problems-Billing Assessment: 64 year old woman with history of achalasia and recurrent abdominal pain admitted w/ recurrence - Patient Problems (1) Achalasia Current Visit: No Status: Chronic Priority: High Code(s): K22.0 - ACHALASIA OF CARDIA SNOMED Code(s): 52522140 Comment: - Patient will be admitted for pain control, anti-emetics, and maintenance of hydration - Discussed lack of other good treatment options with patient (2) Hyperventilation Current Visit: Yes Status: Acute Priority: Medium Code(s): R06.4 - HYPERVENTILATION SNOMED Code(s): 22689765 Comment: -Low bicarbonate likely related to metabolic compensation for respiratory alkalosis seen on ABG. (3) HTN (hypertension) Current Visit: No Status: Chronic Priority: Medium Code(s): I10 - ESSENTIAL (PRIMARY) HYPERTENSION SNOMED Code(s): 10005826 Comment: - BP not well controlled due to pain - Continue metoprolol, norvasc, and continue losartan (4) DVT prophylaxis Current Visit: No Status: Acute Priority: Low Onset Date: 01/19/15 Code( s): BOG1189 - SNOMED Code(s): 146389179 Comment: - very high risk due to past DVT - SCDs and lovenox SQ. Status and Disposition: observation
[2019-02-09] MEDS ORDERED: diPHENhydraMINE LIQ* 12.5 MG/5 ML UDC PO PRN (03:02)
[2019-02-09] MEDS: Ondansetron INJ* 2 MG/ML VIAL IV PRN ×3 (03:56→12:12)
[2019-02-09] MEDS ORDERED: hydrALAZINE IV* 20 MG/ML VIAL IV SLOW PU PRN (04:16)
[2019-02-09 04:50] LABS: Urine Appearance Clear; Urine Bacteria Absent (Absent); Urine Bilirubin Negative (Negative); Urine Blood 3+ (Negative); Urine Color Yellow; Urine Glucose Negative (Negative); Urine Ketones 2+ (Negative); Urine Nitrite Negative (Negative); Urine Protein 1+(30 mg/dL) (Negative); Urine Red Blood Cell 2+(6-10/hpf) (Absent); Urine Specific Gravity 1.017 (1.010-1.030); Urine Squamous Epithelial Cell Present (Absent); Urine Urobilinogen Negative (Negative); Urine White Blood Cell Trace(0-5/hpf) (Absent)
[2019-02-09] MEDS: HYDROmorphone INJ1* 1 MG/ML SYRINGE IV SLOW PU PRN ×3 (05:07→12:10)
[2019-02-09] MEDS ORDERED: Morphine TAB Extended Release (*) 30 MG TAB.ER PO SCH (06:00)
[2019-02-09 06:21] LABS: ABS Basophils 0.1 10^3/ul (0-0.2); ABS Eosinophils 0 10^3/ul (0-0.6); ABS Lymphocytes 1.7 10^3/ul (1.0-4.8); ABS Monocytes 1.2 10^3/ul (0-0.8); ABS Neutrophils 7.8 10^3/ul (1.5-7.7); ABS Nucleated RBC 0 10^3/ul; Eosinophil % 0.1 %; Hematocrit 36 % (33-41); Hemoglobin 12.2 g/dL (12.0-16.0); Lymphocyte % 15.6 %; Mean Corpuscular HGB Conc 34 g/dL (31-36); Mean Corpuscular Hemoglobin 28 pg (27-31); Mean Corpuscular Volume 84 fL (80-97); Mean Platelet Volume 8.4 fL (7.4-10.4); Nucleated Red Blood Cells % 0; Platelet Count 254 10^3/uL (150-450); Red Blood Count 4.32 10^6 /uL (3.70-4.87); Red Cell Distribution Width 16 % (10.5-15); White Blood Count 10.9 10^3/uL (3.5-10.8)
[2019-02-09 06:41] LABS: BUN/Creatinine Ratio 49.2 (8-20); Calcium 7.6 mg/dL (8.6-10.3); EGFR African American 119.5 (>60); EGFR Non-African American 98.7 (>60); Potassium 3.6 mmol/L (3.5-5.0)
[2019-02-09] MEDS ORDERED: Enoxaparin(*) 40 MG/0.4 ML SYR SUBCUT SCH (07:30)
[2019-02-09] MEDS ORDERED: Clopidogrel TAB* 75 MG PO SCH (09:00)
[2019-02-09] MEDS ORDERED: Pantoprazole TAB * 40 MG TAB PO SCH (09:00)
[2019-02-09] MEDS ORDERED: amLODIPine TAB* 5 MG PO SCH (09:00)
[2019-02-09] MEDS ORDERED: Losartan TAB* 25 MG PO SCH (09:00)
[2019-02-09] MEDS ORDERED: Pantoprazole TAB * 40 MG TAB SCH (09:00)
[2019-02-09] MEDS ORDERED: amLODIPine TAB* 5 MG J TUBE SCH (09:00)
[2019-02-09] MEDS ORDERED: Clopidogrel TAB* 75 MG SCH (09:00)
[2019-02-09] MEDS ORDERED: Carisoprodol TAB* 350 MG SCH (09:00)
[2019-02-09] MEDS ORDERED: Losartan TAB* 25 MG J TUBE SCH (09:00)
[2019-02-09] MEDS ORDERED: Metoprolol Tartrate TAB* 50 mg PO SCH (09:00)
[2019-02-09] MEDS ORDERED: Metoprolol Tartrate TAB* 50 mg J TUBE SCH (09:00)
[2019-02-09] MEDS: Carisoprodol TAB* 350 MG PO SCH ×2 (09:11→12:14)
[2019-02-09 11:32] VITALS: BP 132/64
--- NOTE | 2019-02-09 14:28 | DS ---
CC: Dr. Combs* DISCHARGE SUMMARY: DATE OF ADMISSION: 02/09/19 DATE OF DISCHARGE: 02/09/19 HISTORY OF PRESENT ILLNESS: This 64-year-old woman presented with 2 days of epigastric pain and dry heaves. She has a long history of severe achalasia and has had these symptoms off and on for many times, often requiring hospitalization. She was taking her usual medications. She has not run out of medications. She really has no explanation why things are worse. I think they are just natural periods when the pain is worse and leaves the dry heaves. She is never able to have emesis. The rest of the history and physical exam are detailed in admission note. The patient was given intravenous fluids and her usual medications. She seemed more or less at the baseline in the morning. I do not think there is any intervention that we could do that would be an improvement at this time. I do note that at some point in the last 6 months, her J-tube fell out. She is followed by specialist in [place] and will go back to see them and they will likely recommend another open J-tube insertion as she has been losing weight since her J-tube fell out. She does eat combination of diet, chewing very well and some oral supplements. I did not change her medication or give her any new prescriptions during this hospital stay. Her routine lab work was unremarkable other than a white count of 18.3, which fell to 10.9 the next morning. Blood gases showed some hyperventilation. Sodium was 132 with a repeat of 133, carbon dioxide susan from 14 to 19 as her hyperventilation abated. Lactic acid was within normal limits. Albumin was 4.3 , calcium was 7.6. FINAL DIAGNOSES: 1. Achalasia. 2. Hypertension. DISCHARGE MEDICATIONS: 1. Vitamin B12 1000 mcg monthly. 2. Ondansetron ODT 4 mg every 8 hours p.r.n. 3. Epinephrine 0.3 mg p.r.n. 4. Albuterol powder 2 puffs every 4 hours p.r.n. 5. Nitroglycerin 0.4 mg sublingual every 5 minutes p.r.n. 6. Acetaminophen 650 mg b.i.d. p.r.n. 7. Pantoprazole 40 mg daily. 8. Metoprolol tartrate 50 mg b.i.d. 9. Diphenhydramine 50 mg every 6 hours p.r.n. 10. Artificial Tears 1 drop both eyes every 2 hours p.r.n. 11. Hydromorphone 8 mg every 4 hours p.r.n. 12. Morphine extended release 60 mg t.i.d. 13. Amlodipine 10 mg daily. 14. Atorvastatin 40 mg at bedtime. 15. Clopidogrel 75 mg daily. 16. Carisoprodol 350 mg q.i.d. 17. Losartan 50 mg daily. CONDITION ON DISCHARGE: Improved. DISPOSITION ON DISCHARGE: Discharged home. [id number]/[facility] #: [id number] [place]
[2019-02-09] MEDS ORDERED: Atorvastatin* 40 MG TAB J TUBE SCH (21:00)
[2019-02-09] MEDS ORDERED: Atorvastatin* 40 MG TAB PO SCH (21:00)
== END 2019-02-09 13:15 | disposition home or self-care (01) ==
LOC: ED 19:51 → MED 02-09 01:08
PROVIDERS: ADMIT Internal Medicine; ATTEND Internal Medicine
DX: K22.0 Achalasia of cardia (principal); I10 Essential (primary) hypertension; Z88.0 Allergy status to penicillin; R50.9 Fever, unspecified; Z79.01 Long term (current) use of anticoagulants; J44.9 Chronic obstructive pulmonary disease, unspecified; K21.9 Gastro-esophageal reflux disease without esophagitis; Z87.442 Personal history of urinary calculi; F17.210 Nicotine dependence, cigarettes, uncomplicated; R10.9 Unspecified abdominal pain; R11.2 Nausea with vomiting, unspecified
CPT/HCPCS: 36415; 74176; 80048; 80053; 81003; 81015; 82803; 83605; 83690; 85025; 86140; 87086; 93005; 96360; 96361; 96365; 96366; 99285; A9270-GY; G0378; J0360; J1170; J1642; J1650; J2270; J2405

== ENCOUNTER 2019-02-17 13:34 | Observation (INO) | payer OTHER ==
[2019-02-17] MEDS ORDERED: Ondansetron INJ* 2 MG/ML VIAL IV ONE (13:53)
[2019-02-17] MEDS ORDERED: NS 0.9% 1000 ML** 1,000 ML IV ONE (13:53)
[2019-02-17] MEDS ORDERED: Morphine 10 MG/ML VIAL (1 ml) IV ONE (13:53)
[2019-02-17] MEDS ORDERED: hydrALAZINE IV* 20 MG/ML VIAL IV SLOW PU ONE (13:54)
--- NOTE | 2019-02-17 13:59 | ED ---
Complex/Multi-Sys Presentation - HPI Summary HPI Summary: Patient is a 64 y/o F presenting to ED via EMS with complaints of chest pain, difficulty eating. Chest pain is reported to have been present for the past week. She additionally notes difficulty eating. Nausea is endorsed, vomiting and SOB are denied. She claims that she recently had a stress test and cardiac catheterization at [facility] this past weekend which was "good". However, today , the patient experienced an exacerbation of her chest pain which she relates to her achalsia. She is on Dialudid at home. Hx of MS X2, bond's esophagus, shania fundoplication X2, GERD, achalasia, cardiac stent x2, pyelonephritis, UTIs, Tube feeding g-j tube is noted. On triage, pain is rated 6/10, nothing is noted to aggravate/alleviate Sx, and it is reported that EMS gave [address]. Home medications and allergies are reviewed. - History Of Current Complaint Chief Complaint: EDChestPainROMI Time Seen by Provider: 02/17/19 13:48 Hx Obtained From: Patient Onset/Duration: Lasting Weeks - chest pain for the past week, Still Present, Worse Since Timing: Constant, Weeks - chest pain for the past week Severity Initially: Moderate - 6/10 Location: Pain At: - chest Aggravating Factor(s): nothing Alleviating Factor(s): nothing Associated Signs And Symptoms: Positive: Chest Pain, Nausea, Other - difficulty eating. Negative: SOB, Vomiting - Allergies/Home Medications Allergies/Adverse Reactions: Allergies Allergy/AdvReac Type Severity Reaction Status Date / Time albumin colloid, human Allergy Severe Anaphylatic Verified 02/08/19 20:00 Shock bee venom protein (honey bee) Allergy Severe Anaphylatic Verified 02/08/19 20:00 Shock Iodinated Contrast- Oral and Allergy Severe Anaphylatic Verified 02/08/19 20:00 IV Dye Shock onabotulinumtoxinA Allergy Severe Anaphylatic Verified 02/08/19 20:00 [From Botox] Shock Penicillins Allergy Severe Anaphylatic Verified 02/08/19 20:00 Shock shellfish derived Allergy Severe Anaphylatic Verified 02/08/19 20:00 Shock Adhesive Tape Allergy Mild Itching Verified 02/08/19 20:00 chlorhexidine Allergy Mild Rash And Verified 02/08/19 20:00 Itching latex Allergy Mild Hives Verified 02/08/19 20:00 NSAIDS (Non-Steroidal Allergy Mild Hives Verified 02/08/19 20:00 Anti-Inflamma povidone-iodine Allergy Mild Itching Verified 02/08/19 20:00 fentanyl Allergy Hallucinati Verified 02/08/19 20:00 ons Gadolinium-Containing Allergy Itching Verified 02/08/19 20:00 Contrast Medi ENVIRONMENTAL/SEASONAL Allergy Mild ITCHY,WATERY Uncoded 02/08/19 20:00 HAYFEVER EYES, SNEEZE, CONGESTION Home Medications: Home Medications Losartan TAB* [Cozaar TAB*] 50 mg PO DAILY 02/17/19 [History Confirmed 02/17/19] PMH/Surg Hx/FS Hx/Imm Hx Endocrine/Hematology History: Reports: Hx Anticoagulant Therapy - plavix, Hx Anemia - possible Denies: Hx Diabetes, Hx Thyroid Disease Cardiovascular History: Reports: Hx Angina - has prn nitro, Hx Coronary Artery Disease - 2 stents- RCA stent 2006, LAD stent 2007, Hx Deep Vein Thrombosis, Hx Embolism, Hx Hypercholesterolemia, Hx Hypertension, Hx Myocardial Infarction, Hx Syncope, Other Cardiovascular Problems/Disorders - cardiac cath Denies: Hx Congestive Heart Failure, Hx Pacemaker/ICD, Hx Valvular Heart Disease Respiratory History: Reports: Hx Chronic Obstructive Pulmonary Disease (COPD) - Pt denies though providers have diagnosed it, Hx Pneumonia, Hx Pulmonary Embolism - and DVT 30 yrs ago, Hx Seasonal Allergies, Other Respiratory Problems /Disorders - SMOKER Denies: Hx Asthma, Hx Sleep Apnea GI History: Reports: Hx Diverticulosis, Hx Gastroesophageal Reflux Disease, Hx Hiatal Hernia - 3 surgeries, Other GI Disorders - achalasia, Bond's esophagus , gastroparesis, J tube Denies: Hx Ulcer History: Reports: Hx Kidney Infection, Hx Kidney Stones - LAST 12/2015- NO PROBLEMS SINCE PER PATIENT Denies: Hx Dialysis, Hx Renal Disease, Other Problems/Disorders Musculoskeletal History: Reports: Hx Back Problems, Other Musculoskeletal History - L1 fx Denies: Hx Arthritis, Hx Osteoporosis Sensory History: Reports: Hx Cataracts - bilat cataracts Denies: Hx Contacts or Glasses, Hx Hearing Aid Opthamlomology History: Reports: Hx Cataracts - bilat cataracts Denies: Hx Contacts or Glasses Neurological History: Reports: Hx Spinal Cord Injury - L1, Hx Transient Ischemic Attacks (TIA) - 10/2017 [facility] [place] Psychiatric History: Reports: Hx Anxiety Denies: Hx Panic Disorder - Cancer History Cancer Type, Location and Year: RT BREAST CA, 2009 HAD A BILATERAL MASTECTOMY Hx Chemotherapy: No Hx Radiation Therapy: No - Surgical History Surgery Procedure, Year, and Place: RT LUMPECTOMY 02/2010, BILATERAL MASTECTOMY ,. 2006& 2008 CARDIAC STENT AT [facility] [place],. LEFT KNEE SURGERY X10,. BILATERAL SHOULDER SURGERY,. ESPOHOGEAL SURGERY,1996, 2015. failed breast implant on left. PARTIAL HYSTERECTOMY, 1976. APPENDIX A CHILD,. CHEST TUBE, 1996. ESOPHAGEAL DILATION. NISSIN FUNDOLPICATION multiple. total left knee replacement 2015. kidney stone surgery. left chest wound surgery 2010. Insertion Infusaport 02/2018 Hx Anesthesia Reactions: No - Immunization History Date of Tetanus Vaccine: utd Date of Influenza Vaccine: fall 2016 Infectious Disease History: No Infectious Disease History: Reports: Hx Clostridium Difficile Denies: Hx Hepatitis, Hx Human Immunodeficiency Virus (HIV), Hx of Known/ Suspected MRSA, Hx Shingles, Hx Tuberculosis, Hx Known/Suspected VRE, Hx Known/ Suspected VRSA, History Other Infectious Disease, Traveled Outside the in Last 30 Days - Family History Known Family History: Positive: Cardiac Disease - Father, 2 brothers - MS. Mother - AFIB, Hypertension, Diabetes - Social History Alcohol Use: None Hx Substance Use: No Substance Use Type: Reports: None Substance Use Comment - Amount & Last Used: prescribed Hx Tobacco Use: Yes Smoking Status (MU): Current Some Day Smoker Type: Cigarettes Amount Used/How Often: 4/day Length of Time of Smoking/Using Tobacco: 40+ YEARS Have You Smoked in the Last Year: No Review of Systems Positive: Chest Pain Negative: Shortness Of Breath Gastrointestinal: Other - POSITIVE - DIFFICULTY EATING Positive: Nausea. Negative: Vomiting All Other Systems Reviewed And Are Negative: Yes Physical Exam - Summary Physical Exam Summary: VITAL SIGNS: Reviewed. GENERAL: Patient is a well-developed and thin female who is lying comfortable in the stretcher. Patient is not in any acute respiratory distress. She appears dehydrated. HEAD AND FACE: No signs of trauma. No ecchymosis, hematomas or skull depressions. No sinus tenderness. EYES: PERRLA, EOMI x 2, No injected conjunctiva, no nystagmus. EARS: Hearing grossly intact. Ear canals and tympanic membranes are within normal limits. MOUTH: Oropharynx within normal limits. Dry oral mucosa. NECK: Supple, trachea is midline, no adenopathy, no JVD, no carotid bruit, no c- spine tenderness, neck with full ROM. CHEST: Symmetric, no tenderness at palpation LUNGS: Clear to auscultation bilaterally. No wheezing or crackles. CVS: Regular rate and rhythm, S1 and S2 present, no murmurs or gallops appreciated. ABDOMEN: Soft, non-tender. No signs of distention. No rebound no guarding, and no masses palpated. Bowel sounds are normal. EXTREMITIES: FROM in all major joints, no edema, no cyanosis or clubbing. NEURO: Alert and oriented x 3. No acute neurological deficits. Speech is normal and follows commands. SKIN: Dry and warm; Right sided breast implant, none on left, old scar from PICC tube. Triage Information Reviewed: Yes Vital Signs On Initial Exam: Initial Vitals Temp Pulse Resp BP Pulse Ox 98.3 F 83 16 232/130 97 02/17/19 13:46 02/17/19 13:46 02/17/19 13:46 02/17/19 13:46 02/17/19 13:46 Vital Signs Reviewed: Yes Diagnostics - Vital Signs Vital Signs Temp Pulse Resp BP Pulse Ox 02/17/19 13:46 98.3 F 83 16 232/130 97 - Laboratory Result Diagrams: 02/17/19 14:15 02/17/19 14:15 Lab Statement: Any lab studies that have been ordered have been reviewed, and results considered in the medical decision making process. - Radiology chest x-ray Radiology Interpretation Completed By: Radiologist Summary of Radiographic Findings: CXR IMPRESSION: FINDINGS SUGGESTIVE OF COPD, NO EVIDENCE FOR ACUTE FINDING. THIS REPORT WAS REVIEWED BY DR. CANTU. - EKG 1400 Cardiac Rate: NL - rate of 80 BPM EKG Rhythm: Sinus Rhythm EKG Comparison: No Significant Change - similar to EKG taken 02/08/19 Summary of EKG Findings: EKG showed sinus rhythm with rate of 80 BPM, some ST depression in V4, V5, V6, similar to EKG taken 02/08/19 Re-Evaluation - Re-Evaluation First Eval Re-Evaluation Time: 15:08 Comment: Patient reports increased pain at this time. Second Eval Re-Evaluation Time: 15:54 Comment: Patient's BP is evalated at this time and she reports nausea. Hospitalist to be contact. Third Eval Re-Evaluation Time: 19:23 Comment: Patient is agreeable with admission Complex Multi-Symp Course/Dx Assessment/Plan: This patient is a 64-year-old female who presents to the emergency department with chief complaint of chest pain. The patient reports that this chest pain similar as when she has issues with her achalasia. She reports that on the weekend she had a stress test as well as a cardiac catheter and Nena without a significant findings. However, today she developed more chest pain secondary to her exacerbation of Achalasia. Blood test results without any significant abnormality except for sodium 133, chloride 97, carbon dioxide is 20, anion gap is 16 glucose 101 magnesium 1.7 troponin 0.03. In the ED course the patient was given IV fluids, the patient was given Zofran and Reglan for the nausea and vomiting. The patient was given morphine for the pain. Patient reports that she still nauseous therefore she will be given Compazine. At this point I discussed my physical exam and findings with Dr. Milan who recommends a consult from GI first before the patient is admitted. Therefore, I discussed case with Dr. Frye who will consult the patient if the catheter report is obtain. The report from the catheter was obtained. It is in the chart. I discussed the case with Dr. Farrell from the hospital services will be accepted the patient to his service for further workup and management. Dr. Frye will consult for this patient. - Diagnoses Provider Diagnoses: Achalasia, Atypical chest pain - Physician Notifications Discussed Care Of Patient With: Yumiko Milan Time Discussed With Above Provider: 16:10 Instructed by Provider To: Other - Patient's case was discussed with Dr. Milan , Dr. Milan asks that GI be consulted. 1640 - Dr. Frye was consulted on the patient's case. He states that the cardiac catheterization report from [facility] be obtained and reviewed before making a decision on the patient's disposition. 1915 - Cardiac catheterization received from [facility], patient's case was discussed wtih Dr. Farrell, who accepts for admission. 1920 - Patient's case was discussed with Dr. Frye, Dr. Frye agrees with admission to hospital and agrees to consult. Discharge - Sign-Out/Discharge Documenting (check all that apply): Patient Departure - admit Patient Received Moderate/Deep Sedation with Procedure: No - Discharge Plan Condition: Good Disposition: ADMITTED TO [facility] - Billing Disposition and Condition Condition: GOOD Disposition: Admitted to [facility] - Attestation Statements Document Initiated by Kiarra: Yes Documenting Scribe: BHARATHI PICKETT Provider For Whom Scribe is Documenting (Include Credential): TISHA CANTU MD Scribe Attestation: IBHARATHI, scribed for TISHA CANTU MD on 02/17/19 at 2158. Scribe Documentation Reviewed: Yes Provider Attestation: The documentation as recorded by the BHARATHI vyas accurately reflects the service I personally performed and the decisions made by me, TISHA CANTU MD Status of Scribe Document: Viewed
[2019-02-17 14:30] LABS: Hematocrit 38 % (33-41); Hemoglobin 12.9 g/dL (12.0-16.0); Mean Corpuscular HGB Conc 34 g/dL (31-36); Mean Corpuscular Hemoglobin 28 pg (27-31); Mean Corpuscular Volume 84 fL (80-97); Mean Platelet Volume 8.1 fL (7.4-10.4); Platelet Count 359 10^3/uL (150-450); Red Blood Count 4.55 10^6 /uL (3.70-4.87); Red Cell Distribution Width 15 % (10.5-15); White Blood Count 8.6 10^3/uL (3.5-10.8)
[2019-02-17 14:37] LABS: Activated Partial Thrombo Time 35.1 seconds (26.0-36.3); INR 0.95 (0.82-1.09)
[2019-02-17 14:45] LABS: Troponin I 0.03 ng/mL (<0.04)
[2019-02-17 14:49] LABS: CKMB ng/mL 3.8 ng/mL (0.6-6.3)
[2019-02-17 14:56] LABS: Albumin 4.1 g/dL (3.2-5.2); Albumin/Globulin Ratio 1.3 (1-3); BUN/Creatinine Ratio 32.8 (8-20); Calcium 8.6 mg/dL (8.6-10.3); EGFR African American 107.2 (>60); EGFR Non-African American 88.6 (>60); Globulin 3.1 g/dL (2-4); Magnesium 1.7 mg/dL (1.9-2.7); Potassium 3.5 mmol/L (3.5-5.0); Total Bilirubin 0.4 mg/dL (0.2-1.0); Total Protein 7.2 g/dL (6.4-8.9)
[2019-02-17 15:01] LABS: ABS Basophils 0 10^3/ul (0-0.2); ABS Eosinophils 0 10^3/ul (0-0.6); ABS Lymphocytes 1.1 10^3/ul (1.0-4.8); ABS Monocytes 0.5 10^3/ul (0-0.8); ABS Nucleated RBC 0 10^3/ul; Eosinophil % 0 %; Lymphocyte % 13.2 %; Nucleated Red Blood Cells % 0
[2019-02-17] MEDS ORDERED: Morphine 4 MG/ML VIAL (1 ml) 4 MG/ML VIAL IV ONE (15:09)
[2019-02-17] MEDS ORDERED: Magnesium Sulfate 1 GM IV* 1 GM/100 ML BAG IV ONE (15:10)
[2019-02-17 15:36] LABS: TSH (Thyroid Stimulating Horm) 0.47 mcIU/mL (0.34-5.60)
[2019-02-17] MEDS ORDERED: Metoclopramide IV* 5 MG/ML 2 ML VIAL IV ONE (16:06)
[2019-02-17 17:31] LABS: Troponin I 0.04 ng/mL (<0.04)
[2019-02-17] MEDS ORDERED: Lorazepam PYXIS KEY PRN (20:14)
[2019-02-17] MEDS ORDERED: LORazepam INJ* 2 MG/ML 1 ML VIAL IV PUSH PRN (20:14)
[2019-02-17] MEDS ORDERED: Acetaminophen ADULT LIQ* 650 MG/20.3 ML UDC PO PRN (20:14)
[2019-02-17] MEDS ORDERED: Artificial Tears* 15 ML BTL BOTH EYES PRN (20:15)
[2019-02-17] MEDS ORDERED: Albuterol HFA INHALER* 8 gm MDI INH PRN (20:15)
[2019-02-17] MEDS ORDERED: Nitroglycerin TAB 0.4 MG* 0.4 MG TAB SL PRN (20:15)
[2019-02-17] MEDS: HYDROmorphone INJ1* 1 MG/ML SYRINGE IV SLOW PU PRN (20:48)
[2019-02-17 20:49] LABS: Troponin I 0.07 ng/mL (<0.04)
[2019-02-17] MEDS ORDERED: D5NS 0.9% 1000 ML BAG* 1,000 ML IV SCH (21:00)
[2019-02-17] MEDS ORDERED: Famotidine SUSP ORALSYR 8 MG/ML J TUBE SCH (21:00)
--- NOTE | 2019-02-17 21:27 | HP ---
HISTORY AND PHYSICAL: DATE OF ADMISSION: 02/17/19 PRIMARY CARE PROVIDER: Dr. Trish Combs. PEN TENDER: Blanca Mcmahan, the patient's daughter. CODE STATUS: Full. SOURCE OF INFORMATION: HPI was obtained from the patient and review of medical chart. The patient is a fair historian. HISTORY OF PRESENT ILLNESS: This is a 64-year-old female with a past medical history CAD, status post PCI; chronic severe achalasia with prior J-tube placement, now removed in the last several weeks; history of DVT/PE; TIA; tobacco use; chronic pain, on long-term opiate pain medication, who reports to the ER with epigastric pain, nausea, and vomiting. She presented to the ER several times in the past for the same. She is followed with Dr. Buckley in [place] and has had myotomies, Godwin fundoplication x2, and Botox injections. Her last Botox was June 2018. She has occasionally had elevated troponins in the setting of this epigastric pain and retching, and was actually referred for cardiac cath in [place] recently and the results showed no ischemic disease. Tonight, she has been unable to stop retching, feels dehydrated and has been unable to swallow her antihypertensive medications without vomiting them up and thus she presented to the emergency room. The GI team was contacted, who felt that they would admit the patient for conservative treatment with IV fluids and antiemetics and possibly consider her for Botox if appropriate. EMERGENCY ROOM COURSE: Hypertension to the systolic 170s, pulse mid 90s, satting well on room air. Labs with chronically low sodium and mild elevated troponin, which is consistent with prior presentations. EKG shows LVH and old Q waves in II. No other imaging was done. Hospitalist team agrees to admit this patient for observation status. PAST MEDICAL HISTORY: 1. Chronic end-stage achalasia with J-tube. 2. Gastroparesis. 3. DVT/PE. 4. Coronary artery disease, status post PCI. 5. Hyperlipidemia. 6. History of TIA. 7. History of seizure disorder. 8. COPD. 9. Hypertension. 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 11. Active tobacco use. 12. GERD. 13. Distant history of right breast cancer. PAST SURGICAL HISTORY: 1. Status post PCI x2. 2. Status post Godwin fundoplication and hiatal hernia surgeries x2. 3. Bilateral mastectomy. 4. Partial hysterectomy. 5. Left TKR. 6. Bilateral shoulder surgery. 7. Esophageal surgeries. 8. Status post appy. 9. Multiple esophageal dilatations. 10. Right breast lumpectomy and port placement. MEDICATIONS: 1. Acetaminophen 650 p.o. b.i.d. 2. Albuterol 2 puffs inhaled q.4 hours. 3. Amlodipine 10 mg p.o. daily. 4. Artificial tears 1 drop both eyes q.2 hours p.r.n. 5. Atorvastatin 40 mg p.o. q.h.s. 6. Soma tab 350 mg p.o. 4 times daily. 7. Clopidogrel 75 mg p.o. q.a.m. 8. IM vitamin B12 monthly. 9. Benadryl 50 mg p.o. q.6 hours. 10. EpiPen p.r.n. 11. Hydromorphone 8 mg p.o. q.4 hours. 12. Losartan 50 mg p.o. daily. 13. Metoprolol 50 mg p.o. b.i.d. 14. Morphine extended release 60 mg t.i.d. 15. Nitroglycerin p.r.n. 16. Ondansetron 4 mg p.o. q.8 hours p.r.n. 17. Pantoprazole 40 mg p.o. daily. ALLERGIES: To ALBUMIN, BEE VENOM, CONTRAST, PENICILLIN, SHELLFISH, ADHESIVE TAPE, CHLORHEXIDINE, LATEX, NSAIDS, FENTANYL, and seasonal allergies. Also reports allergy to BOTOX (?). FAMILY HISTORY: Father with CAD. Mother with diabetes. SOCIAL HISTORY: The patient lives alone, disabled. She is a current smoker, 3 to 4 cigarettes a day and a 50-pack year history. Social drinker with 1 drink per month. Never illicits. REVIEW OF SYSTEMS: Constitutional: Denies fevers, chills. Positive for malaise. HEENT: Denies headaches, vision changes. No sore throat or mouth complaints. Cardiovascular: Negative for chest pain, palpitations, or orthopnea. Respiratory: Negative for shortness of breath, cough, or pleuritic chest pain. GI: Positive for nausea, vomiting, abdominal pain. Negative for diarrhea. : Negative for dysuria, hematuria. Musculoskeletal: Negative for myalgias, arthralgias. Positive for weakness. Skin: Negative for rashes or lesions: Neurologic: Negative for focal weakness or numbness. Psychiatric: Negative for anxiety. Positive for depression. Endocrine: Negative for polyuria, polydipsia. Heme: Negative for bruising, bleeding, lymphadenopathy. PHYSICAL EXAMINATION GENERAL APPEARANCE: This is a chronically ill-appearing woman, in no acute distress, pleasant. VITAL SIGNS: At the time of physical exam, 146/96, heart rate 98, respiratory rate 15, oxygen saturation 95% on room air. HEENT: She is normocephalic, atraumatic. Pupils are equal and reactive to light. Extraocular muscles are intact. Mucous membranes are dry. NECK: Supple with no supraclavicular or cervical lymphadenopathy. RESPIRATORY: Lungs are clear to auscultation bilaterally. CARDIOVASCULAR: Regular rate and rhythm with no murmurs, rubs, or gallops. ABDOMEN: Belly is soft, nontender, nondistended. There are bowel sounds in all 4 quadrants. Prior J tube site with no surrounding erythema or drainage. EXTREMITIES: She moves all 4 extremities spontaneously without pain. She has DP 1+ pulses palpable in bilateral feet and no edema. MUSCULOSKELETAL: No clubbing or cyanosis. NEUROLOGIC: The patient is alert and oriented x4. Cranial nerves II through XII are grossly intact. She has no focal neurologic deficits. SKIN: No rash or ulceration seen. DIAGNOSTIC STUDIES/LAB DATA: CBC shows white blood cell count of 8.6, hemoglobin 12.9, hematocrit 38, platelets 359. Sodium 133, potassium 3.5, chloride 97, carbon dioxide 20, anion gap 16, BUN 22, creatinine 0.67, glucose 101. AST 16, ALT 8, alkaline phosphatase 73. Troponin 0.03. Albumin is 3.1. TSH 0.47. EKG shows normal sinus rhythm with Q waves in II, unchanged from prior. ASSESSMENT AND PLAN: This is a 64-year-old female with past medical history of coronary artery disease; transient ischemic attack; chronic pain, on opiates; ongoing tobacco use; with chronic severe achalasia, with prior J tube, recently removed, with frequent presentations for epigastric pain, nausea and vomiting secondary to gastroparesis and unfortunately end stage of this disease. She will be admitted observation for hydration, pain control, and nausea control with IV antiemetics for what would be considered as a gastroparesis flare. 1. Intractable epigastric pain and nausea. As above, this is most likely secondary to her end-stage achalasia and gastroparesis. This is not likely cardiac etiology as she has had recent catheterization with no disease. We will continue her on Zofran, Compazine, low-dose Ativan as needed for nausea. Furthermore, Reglan can be added. We will convert her pain medications to IV and we will continue her on her long-acting morphine. We will place her n.p.o. for now. Continue her tube feeds and add GI consult in the event she is amenable to Botox or other short-term temporizing strategies to manage these symptoms in the setting of known chronic incurable illness. We will also maintain this patient on IV fluids for an additional of 2 total liters while here in the hospital. 2. Electrolyte abnormalities, mild hyponatremia and hypomagnesemia. These are chronic and stable. 3. History of transient ischemic attack. Continue on her statin and Plavix. 4. History of chronic obstructive pulmonary disease. P.r.n. albuterol. 5. History of hypertension. We will continue her home medications. We may need to crush her medications moving forward. 6. Tobacco use. Offered nicotine replacement therapy. 7. Gastroesophageal reflux disease. We will continue on home sucralfate and famotidine. 8. Chronic pain, on long-term opiates. See intractable epigastric pain and nausea. Ultimately, we will continue her long-acting morphine with IV Dilaudid , small doses for breakthrough. 9. DVT prophylaxis: Lovenox given history of breast cancer. 10. FEN: N.p.o. for now given possibilty of botox. 11. Code status is full. 12. Disposition: This patient is stable for observation for management of symptoms. TIME SPENT: Thirty-five minutes was spent in the planning of this admission with over half of that spent at the bedside of the patient providing direct patient care. Plan was reviewed with the patient and her family and they have no further questions. Anticipate discharge within the next 24 hours. [id number]/[facility] #: [id number] [place]
[2019-02-17] MEDS: PROCHLORPERAZINE INJ 5 MG/ML 2 ML VIAL IV PRN (22:08)
[2019-02-17] MEDS: Morphine TAB Extended Release (*) 30 MG TAB.ER PO SCH (22:26)
[2019-02-17] MEDS: Atorvastatin* 40 MG TAB PO SCH (22:27)
[2019-02-17] MEDS: amLODIPine TAB* 5 MG PO SCH (22:27)
[2019-02-17] MEDS: Metoprolol Tartrate TAB* 50 mg PO SCH (22:27)
[2019-02-17] MEDS: Famotidine SUSP ORALSYR 8 MG/ML PO SCH (22:28)
[2019-02-17] MEDS: Ondansetron INJ* 2 MG/ML VIAL IV SCH (22:29)
[2019-02-17] MEDS: Pantoprazole IV* 40 MG IV SCH (22:29)
[2019-02-17] MEDS: Enoxaparin(*) 40 MG/0.4 ML SYR SUBCUT SCH (22:32)
[2019-02-18] MEDS: HYDROmorphone INJ1* 1 MG/ML SYRINGE IV SLOW PU PRN ×6 (01:09→22:48)
[2019-02-18] MEDS: Ondansetron INJ* 2 MG/ML VIAL IV SCH ×6 (01:09→21:36)
[2019-02-18] MEDS: Morphine TAB Extended Release (*) 30 MG TAB.ER PO SCH ×3 (05:03→21:35)
[2019-02-18] MEDS: PROCHLORPERAZINE INJ 5 MG/ML 2 ML VIAL IV PRN ×2 (05:03→19:45)
[2019-02-18 05:34] LABS: BUN/Creatinine Ratio 28.3 (8-20); Calcium 7.2 mg/dL (8.6-10.3); EGFR African American 140.5 (>60); EGFR Non-African American 116.1 (>60); Potassium 2.9 mmol/L (3.5-5.0)
[2019-02-18] MEDS ORDERED: Potassium Chloride LIQUID* 20 MEQ PACKET PO SCH (07:00)
[2019-02-18] MEDS ORDERED: Losartan TAB* 25 MG PO SCH (09:00)
[2019-02-18] MEDS: Clopidogrel TAB* 75 MG PO SCH (09:16)
[2019-02-18] MEDS: Famotidine SUSP ORALSYR 8 MG/ML PO SCH ×2 (09:17→21:36)
[2019-02-18] MEDS: Potassium Chloride LIQUID 20 MEQ/15 ML PO SCH (09:18)
[2019-02-18] MEDS: KCL 20 MEQ/100 ML IVPREMIX* 20 MEQ/100 ML BAG IV SCH ×3 (09:18→14:21)
--- NOTE | 2019-02-18 12:45 | PN ---
Subjective Date of Service: 02/18/19 Interval History: VS: BP variable Labs: slight hyponatremia, hypokalemia, elevated troponin Pt has positive troponins. Pt was admitted to [facility] due to epigastric/chest pain over weekend. Noted to have elevated troponin at [facility]. Heart cath performed 02/13/2019 and showed mild to mod non-obstructive CAD, mid RCA moderate instent restenosis, negative iFR, FFR, plan was continue medical management, start Imdur. Pt has h/o achalasia x appx 20 years; has had multiple procedures, including dilation, fundoplication, myotomy, botox. She reports having had 2 botox injections, but states that the first one caused anaphylaxis. She states that she was under anaesthesia at the time, and has no other information regarding this incident. States second botox injection was without incident. Pt continues to have epigastric pain. She notes frequent nausea, vomiting. States GJ tube fell out in Nov 2018, and she did not want replacement at that time. This has lead to decrease in intake. Pt states she is hungry, but has difficulty eating. Pt denies CP, c/o epigastric pain. She denies numb/ tingling in extremities, jaw pain, SOB, diaphoresis, bowel/bladder changes. Pt had nausea/dry heaves, but states this has subsided. Objective Active Medications: Acetaminophen (Tylenol Adult Liq*) 650 mg PO Q6H PRN Albuterol (Ventolin Hfa Inhaler*) 2 puff INH Q4H PRN Amlodipine Besylate (Norvasc Tab*) 10 mg PO DAILY ZENA Atorvastatin Calcium (Lipitor*) 40 mg PO BEDTIME ZENA Clopidogrel Bisulfate (Plavix Tab*) 75 mg PO QAM ZENA Enoxaparin Sodium (Lovenox(*)) 40 mg SUBCUT Q24H ZENA Famotidine (Pepcid Susp 8mg/Ml) 20 mg PO BID ZENA Hydromorphone HCl (Dilaudid Inj1s*) 2 mg IV SLOW PU Q4H PRN Potassium Chloride (Potassium Chloride 20 Meq/100 Ml Ivpremix*) 20 meq in 100 mls @ 50 mls/hr IV Q2H ZENA Lorazepam (Ativan Inj*) 0.5 mg IV PUSH Q4H PRN Losartan Potassium (Cozaar Tab*) 50 mg PO DAILY [facility] Metoprolol Tartrate (Lopressor Tab*) 50 mg PO BID ZENA Miscellaneous (Ativan Pyxis Guerra) 1 ea N/A .ATIVAN IV GUERRA PRN Morphine Sulfate (Ms Contin(*)) 60 mg PO 0600,1400,2200 ZENA Nitroglycerin (Nitroglycerin Tab 0.4 Mg*) 0.4 mg SL Q5M PRN Ondansetron HCl (Zofran Inj*) 4 mg IV Q4H ZENA Pantoprazole Sodium (Protonix Iv*) 40 mg IV Q24H ZENA Polyvinyl Alcohol (Polyvinyl Alcohol 1.4% Opth*) 1 drop BOTH EYES Q2H PRN Potassium Chloride (Potassium Chloride Liquid) 20 meq PO DAILY ZENA Prochlorperazine Edisylate (Compazine Inj*) 5 mg IV Q6H PRN Vital Signs: Temp Pulse Resp BP Pulse Ox 98.1 F 60 16 136/68 95 02/18/19 10:59 02/18/19 10:59 02/18/19 14:52 02/18/19 10:59 02/18/19 10:59 Oxygen Devices in Use Now: None Appearance: Pt is underweight, frail-appearing. She appears chronically ill and malnourished. No acute distress. Eyes: No Scleral Icterus, PERRLA Ears/Nose/Mouth/Throat: NL Teeth, Lips, Gums, Clear Oropharnyx, Mucous Membranes Moist Neck: NL Appearance and Movements; NL JVP, Trachea Midline Respiratory: Symmetrical Chest Expansion and Respiratory Effort, Clear to Auscultation, - - L breast removed in past- h/o breast cancer Cardiovascular: NL Sounds; No Murmurs; No JVD, RRR, No Edema Abdominal: No Hepatosplenomegaly, - - Abdomen flat; pt thin. Hypoactive bowel sounds. GJ tube site appears to be almost closed without erythema, discharge. Dressing CDI. Abd TTP at LUQ. Extremities: No Edema, No Clubbing, Cyanosis Neurological: Alert and Oriented x 3 - Nutrition: Malnutrition Diagnosis/Plan Malnutrition Assessment by Registered Dietitian: Malnutrition Assessment Clinical Characteristics Chronic,Moderate Malnutrition Assessment: - Mild temporal muscle wasting Criteria - < 75% estimated energy expenditure > 1 month - BMI 16.4 Malnutrition Assessment: - Recommend advancing diet to regular as able Interventions - Encouraged intake of protein containing foods as able - Pt does not like Ensure/Boost but has accepted strawberry milkshakes in the past Malnutrition Assessment: Goals 1. As able, advance diet. Recommend regular unrestricted. 2. Ultimately, adequate nutrition to promote wt repletion w/o additional wt loss. Result Diagrams: 02/17/19 14:15 02/19/19 05:15 Assess/Plan/Problems-Billing Assessment: Pt is a 64 yof with PMHx achalasia, gastroparesis, CAD, s/p PCI and most recent heart cath 02/13/2019, HLD, COPD, HTN, GERD, Dalton's, tobacco abuse, h/o breast cancer who presents with epigastric pain, likely due to achalasia. - Patient Problems (1) Epigastric pain Comment: -Patient with h/o achalasia, still reporting pain, but improved -Continue pain, nausea management -GI consult requested -Continue NPO until consult (2) Electrolyte abnormality Comment: -Slight hyponatremia; hypokalemia, hypomag -Mag replaced last night; K repleted today -Continue to monitor (3) HTN (hypertension) Comment: -BP initially HTN, then hypotension. Likely elevation was due to pain, as pt appears to have lower BP with pain control -Will d/c p.m. amlodipine -Hold parameters added to metoprolol; continue losartan -Assess for need for restart of amlodipine (4) Elevated troponin Comment: -Troponin elevation, no EKG changes, no chest pain -Pt had LHC 02/13/2019 at [place]; results: mild to mod non-obstructive CAD; mid RCA mod instent restenosis neg by iFR, FFR; plan was continue with medical managment with Imdur. This is not on medication list; will attempt to reconcile (5) GERD (gastroesophageal reflux disease) Comment: -Protonix, Famotidine (6) DVT prophylaxis Comment: -Lovenox SQ (7) Full code status Comment: Status and Disposition: Observation. GI consulting to see if patient is a candidate for Botox injection. Discharge when medically stable.
[2019-02-18] MEDS: amLODIPine TAB* 5 MG PO SCH (13:38)
[2019-02-18] MEDS: Metoprolol Tartrate TAB* 50 mg PO SCH ×2 (13:39→21:36)
[2019-02-18] MEDS: Losartan TAB* 25 MG PO SCH (17:00)
[2019-02-18] MEDS: Atorvastatin* 40 MG TAB PO SCH (21:35)
[2019-02-18] MEDS: Pantoprazole IV* 40 MG IV SCH (21:36)
[2019-02-18] MEDS: Enoxaparin(*) 40 MG/0.4 ML SYR SUBCUT SCH (21:39)
[2019-02-19] MEDS ORDERED: Al Hydrox/Mg Hydrox/Simet LIQ* 30 ML UDC PO PRN (00:32)
--- NOTE | 2019-02-19 01:06 | CONS ---
CC: Dr. Combs; CRISTINA Olivarez * GASTROENTEROLOGY CONSULT REPORT: DATE OF CONSULT: 02/18/19 PRIMARY CARE PROVIDER: Dr. Combs. INPATIENT PROVIDER: CRISTINA Olivarez. REASON FOR CONSULT: Epigastric pain and heaving in a patient with known achalasia and gastroparesis. HISTORY OF PRESENT ILLNESS: Ms. Prasad is a 64-year-old woman with a history of CAD, status post stenting and a recent hospitalization for NSTEMI; severe achalasia, gastroparesis, history of DVT/PE, TIA, chronic abdominal pain, who is admitted from the ER where she presented with acute on chronic epigastric pain, nausea, and heaving. History obtained from discussion with the patient, the patient's provider, and Dr. Buckley (patient's thoracic surgeon at [facility]). Ms. Prasad has a longstanding history of achalasia,. She was diagnosed in the mid . She has had a number of surgeries including, initial myotomy, Godwin fundoplication, and Godwin fundoplication takedown and repeat myotomy. She also has a significant history of gastroparesis possibly related to chronic narcotics and potential vagal nerve injury from her multiple surgeries. She has undergone Botox injections before. There was a comment of having had Botox in the early s with a possible anaphylactic reaction. Per Dr Buckley, the patient saw Allergy and received a test dose without any reaction. She underwent an EGD by Dr. Buckley in the fall of 2017 with Botox to the pylorus. Dr. Buckley noted that the LES did not appear excessively tight at the time of the endoscopy. She was previously receiving tube feeds through a J tube placed by Thoracic Surgery. This tube fell out in October 2018. Apparently, the patient waited several days to contact Thoracic Surgery by which point the tract had closed. She declined having it replaced. The patient was recently hospitalized at [place] after she was noted to have elevated troponin with epigastric pain and retching. She underwent a cardiac cath. Dr. Buckley read the cath report to me, which commented on a 60% in-stent restenosis of the RCA. No interventions were performed. The patient was placed on Plavix. Ms. Prasad presents to [facility] with acute on chronic epigastric pain, nausea, and retching. She states that she is unable to vomit because of her prior surgeries. She presents for fluids and symptom management. On interview, Ms. Prasad said that she has not had any retching since earlier today. She continues to feel abdominal pain in the epigastrium, which she rates as a 9/10. She was eating a regular dinner at the time of our interview. She states that the food sits in her lower esophagus for a period of time and then passes into the stomach. Eating makes the pain worse. She mentions that she has been on Reglan and erythromycin in the past for the gastroparesis without any improvement. She has had a weight loss of approximately 50 pounds in the past year with continued slow weight loss. She mentions that Dr. Buckley has offered the possibility of removing her esophagus as a next step which Dr. Buckley confirmed in our conversation. The patient has not been particularly interested in pursuing this significant surgery at this point, although she understands that her treatment options are fairly limited for both her gastroparesis and her achalasia. PAST MEDICAL HISTORY: 1. Achalasia, status post myotomy x2. 2. Gastroparesis. 3. Chronic abdominal pain, on narcotics. 4. DVT/PE history. 5. Coronary artery disease, status post stenting x2 and a recent NSTEMI due to an RCA stent restenosis, on Plavix. 6. Hyperlipidemia. 7. History of TIA. 8. History of seizure disorder. 9. COPD. 10. Hypertension. 11. Fernández esophagus. 12. Tobacco use. 13. GERD. 14. Remote history of right breast cancer. PAST SURGICAL HISTORY: 1. Myotomies for achalasia as well as Godwin fundoplication followed by takedown. 2. Cardiac stenting. 3. Bilateral mastectomy. 4. Partial hysterectomy. 5. Left TKR. 6. Bilateral shoulder surgeries. 7. Appendectomy. 8. GJ tube placement. MEDICATIONS: Per H and P, the patient's medications include: 1. Acetaminophen. 2. Albuterol. 3. Amlodipine. 4. Artificial tears. 5. Atorvastatin. 6. Carisoprodol. 7. Clopidogrel. 8. Vitamin B12 IM. 9. Benadryl. 10. EpiPen. 11. Hydromorphone. 12. Losartan. 13. Metoprolol. 14. Morphine ER. 15. Nitroglycerin. 16. Zofran p.r.n. 17. Pantoprazole. ALLERGIES: The patient has multiple allergies including ALBUMIN, BEE VENOM, CONTRAST, PENICILLIN, shellfish, ADHESIVE TAPE, CHLORHEXIDINE, LATEX, NSAIDs, FENTANYL and seasonal allergies. After discussing with Dr. Buckley, it not does appear that the patient has an allergy to Botox. FAMILY HISTORY: Father with CAD, mother with diabetes. SOCIAL HISTORY: The patient lives alone, on disability. Current smoker. Social drinker. No drug use. REVIEW OF SYSTEMS: The patient denies any chest pain actively. Remainder of review of systems negative except as above. PHYSICAL EXAM: Vitals: Temp 98.3, heart rate 59, blood pressure 175/89, 97% on room air. General: Pleasant woman sitting comfortably in bed, eating dinner. No acute distress. HEENT: Mucous membranes moist. Cardiovascular: Regular rate and rhythm. Pulmonary: Breathing comfortably. Abdomen: Soft, nondistended. Mild tenderness in the epigastrium. Multiple abdominal scars. Extremities: No edema. Skin: No jaundice. Neuro: A and O x3. No gross neural deficits. DIAGNOSTIC STUDIES/LAB DATA: White count 8.6, hemoglobin 12.9, platelet count 359. Sodium 133, potassium 2.9, creatinine 0.53, troponin trended from 0.03 to 0.07 recheck. The patient's albumin is 4.1. Imaging: Chest x-ray suggestive of COPD without acute findings. IMPRESSION AND RECOMMENDATIONS: Ms. Prasad is a 64-year-old woman with a very complicated medical history including coronary artery disease with a recent non- ST- elevation myocardial infarction, severe achalasia, gastroparesis, prior GJ tube placement, and chronic pain on narcotics, who was admitted with acute on chronic epigastric pain, nausea, and retching. The patient states that her symptoms are very similar to her chronic symptoms, although they are more severe than typical. She is seen eating a regular meal at time of interview. She has not had any retching since earlier in the morning. Labs are normal with the exception of a low potassium level. I discussed the patient's case with her primary thoracic surgeon, Dr. Buckley, at [facility]. He mentions that there are minimal to no therapeutic options for her achalasia or her gastroparesis at this point. She may need to have the GJ tube placed for tube feeding again given the slow progressive weight loss. Unfortunately, she is now on Plavix and will need to have this medication held for a period of time before a feeding tube can safely be placed again. Given her recent NSTEMI, I am not quite sure when she will be able to safely hold the Plavix. It is a bit unclear to me if her abdominal pain is being driven more by the gastroparesis, chronic pain syndrome or achalasia. During the last EGD in the fall of 2017, Dr. Buckley provided a Botox injection to the pylorus, but did not note the LES to be significantly tight arguing perhaps against achalasia as being the driving issue for her pain. I think that a barium esophagram with follow-through to the stomach is a reasonable place to start. This can help us determine if there is a significant dilation in the esophagus or hang-up of barium at LES. We may also be able to see if a gastric bezoar is present, which can occur in the setting of gastroparesis and lead to an exacerbation of symptoms. Depending on the barium swallow findings, we can discuss if an EGD is indicated. I discussed these recommendations with inpatient provider Divina Hernandez. Thank you very much for the consult. GI will continue to follow. Please let us know if there is any change in her clinical status acutely or if there are any additional questions. [id number]/[facility] #: [id number] [place]
[2019-02-19] MEDS: Ondansetron INJ* 2 MG/ML VIAL IV SCH ×5 (01:39→16:24)
[2019-02-19] MEDS: Carisoprodol TAB* 350 MG PO SCH ×4 (02:16→16:24)
[2019-02-19] MEDS: HYDROmorphone INJ1* 1 MG/ML SYRINGE IV SLOW PU PRN ×4 (02:51→16:17)
[2019-02-19] MEDS: Morphine TAB Extended Release (*) 30 MG TAB.ER PO SCH ×2 (05:12→13:20)
[2019-02-19 05:55] LABS: BUN/Creatinine Ratio 17.3 (8-20); EGFR African American 94.1 (>60); EGFR Non-African American 77.8 (>60); Magnesium 1.8 mg/dL (1.9-2.7)
[2019-02-19 05:58] LABS: Troponin I 0.03 ng/mL (<0.04)
[2019-02-19] MEDS ORDERED: Magnesium Sulfate 2 GM IV* 2 GM/50 ML BAG IVPB ONE (06:58)
[2019-02-19] MEDS: Clopidogrel TAB* 75 MG PO SCH (09:50)
[2019-02-19] MEDS: Potassium Chloride LIQUID 20 MEQ/15 ML PO SCH (09:50)
[2019-02-19] MEDS: Losartan TAB* 25 MG PO SCH (09:50)
[2019-02-19] MEDS: Metoprolol Tartrate TAB* 50 mg PO SCH (09:51)
[2019-02-19] MEDS: Famotidine SUSP ORALSYR 8 MG/ML PO SCH (09:51)
[2019-02-19] MEDS ORDERED: NS 0.9% 1000 ML** 1,000 ML IV SCH (10:30)
[2019-02-19 13:08] VITALS: BP 145/76
--- NOTE | 2019-02-20 01:20 | DS ---
CC: Dr. Trish Combs; Dr. Eddie Buckley; Dr. Douglas Ayala * DISCHARGE SUMMARY: DATE OF ADMISSION: 02/17/19 DATE OF DISCHARGE: 02/19/19 PRIMARY CARE PROVIDER: Dr. Trish Combs. SURGEON: Dr. Eddie Buckley. OTHER PROVIDER: Dr. Douglas Ayala. ATTENDING PHYSICIAN: Shira Alas DO * (dictated by CRISTINA Olivarez) PRIMARY DIAGNOSES: 1. Epigastric pain. 2. Electrolyte abnormalities. SECONDARY DIAGNOSES: 1. Chronic endstage achalasia. The patient had GJ tube, which has been absent since November 2018. 2. Gastroparesis. 3. Coronary artery disease, status post percutaneous coronary intervention. Left heart cath, January 2019. 4. Hyperlipidemia. 5. History of transient ischemic attack. 6. Hypertension. 7. Chronic obstructive pulmonary disease. 8. History of seizure disorder. 9. Fernández's esophagus. 10. Tobacco abuse. 11. Gastroesophageal reflux disease. 12. History of deep venous thrombosis/pulmonary embolism. 13. History of breast cancer. STUDIES WHILE IN THE HOSPITAL: Upper GI. Impression: Slightly limited study. Mass. Impression: On the distal esophagus and the fundus of the stomach consistent with the patient's history of a prior fundoplication. There was no significant hold up of barium at this point. There was food debris present within the stomach, which emptied slowly. DISCHARGE MEDICATIONS: Home medications: 1. Losartan 50 mg p.o. daily. 2. Diphenhydramine 50 mg p.o. q.6 hours p.r.n., itching. 3. Amlodipine 10 mg p.o. daily. 4. Pantoprazole 40 mg p.o. daily. 5. Ondansetron 4 mg p.o. q.8 hours p.r.n. nausea/vomiting. 6. Nitroglycerin 0.4 mg sublingual q.5 minutes p.r.n., chest pain. 7. Morphine ER 60 mg p.o. 0600, 1400, 2200, MDD 3. 8. Metoprolol tartrate 50 mg p.o. b.i.d. 9. Hydromorphone 8 mg p.o. q.4 hours p.r.n., pain, MDD 6. 10. Epinephrine 0.3 mg IM once p.r.n. allergy symptoms. 11. Cyanocobalamin 1000 mcg IM monthly. 12. Clopidogrel 75 mg p.o. q.a.m. 13. Carisoprodol 350 mg p.o. q.i.d. 14. Atorvastatin 40 mg p.o. at bedtime. 15. Artificial Tears 1 drop both eyes q.2 hours p.r.n. dry eyes. 16. Albuterol inhalation powder 2 puff inhalation q.4 hours p.r.n. wheeze. 17. Acetaminophen 650 mg p.o. b.i.d. p.r.n. pain. HISTORY OF PRESENT ILLNESS/HOSPITAL COURSE: Ms. Prasad is a 64-year-old female with a past medical history of gastroparesis and end-stage achalasia with prior J tube placement, which had been removed since November 2018. She presented to the ER on 02/17/19 with complaints of epigastric pain, nausea and vomiting. She is a patient of Dr. Buckley in [place]. She has had multiple procedures for her achalasia including Godwin fundoplication take down and myotomy, several Botox injections, most recently to the pyloric area in the fall of 2017. She presented to the ER and stated that her pain has increased from baseline although she does note that she always has pain. She also describes uncontrollable retching. The patient was admitted by the hospitalist team. Gastroenterology was consulted for further recommendations. Dr. Buckley from [facility] was also contacted. He states that there are no other therapeutic options for the patient's achalasia. At this time, it is noted that she has a recent history of NSTEMI, which was assessed to be a heart cath on 02/13/19 at [place] and results show mild- to-moderate nonobstructive coronary artery disease, mid RCA, moderate in-stent restenosis. The plan was to continue medical management. Dr. Buckley was contacted. He feels that the patient does need GJ tube replacement, although this is complicated due to the patient's recent history of NSTEMI. GI recommended a barium swallow with followthrough into the first part of the small intestine in order to assess for achalasia versus gastroparesis or chronic pain syndrome versus gastric bezoar. The study was performed, results showed no significant hold up of barium at the esophagus and fundus of the stomach. It did show slow emptying of the stomach. At this point, GI has no further recommendations for the patient. It is suggested that she follow up with Dr. Buckley closely. The patient is eager for discharge. She continues to have epigastric pain although she states that it appears to be back to her baseline. She denies chest pain, shortness of breath , fever, chills, cough, nausea, vomiting, diarrhea or constipation, again epigastric pain remains. PHYSICAL EXAMINATION: Vital Signs: Temperature 97.3, heart rate 66, respiratory rate 16, oxygen saturation 98% on room air, blood pressure 145/76. General: Ms. Prasad is an underweight frail-appearing, chronically ill, malnourished, middle-aged woman who is in no acute distress. HEENT: Visual rivas are grossly intact. Pupils are equally round and reactive to light. Extraocular movements are intact. Sclerae are without icterus. Hearing is grossly intact. Oral mucous membranes are moist. There are no lesions. The pharynx is clear. Neck: Trachea midline. Cardiovascular: Regular rate and rhythm with S1, S2 present. No murmurs, rubs, or gallops. There is no JVD. Respiratory: Symmetrical chest expansion without the use of accessory muscles. No wheeze, rhonchi or rubs. Abdomen: Flat. Bowel sounds are hypoactive throughout. The abdomen is tender to palpation. There is no hepatosplenomegaly. The patient's GJ tube site has a small amount of drainage. There is no erythema or purulent discharge. Dressing is applied. Extremities: Skin is warm and smooth bilaterally. There is no edema, clubbing, or cyanosis. Radial and pedal pulses are palpable. Neuro: The patient is awake. She is alert and oriented x3. She is able to move all of her extremities. DISCHARGE PLAN: Ms. Prasad will be discharged to home. ACTIVITY: As tolerated. DIET: Heart healthy. MEDICATIONS: As above. EDUCATION: 1. Follow up with primary care provider in 4 to 7 days. 2. Follow up with Dr. Buckley in 4 to 7 days. Discuss future plans for the GJ tube reinsertion. 3. Follow up with Dr. Ayala as scheduled. 4. Return to the ER or nearest hospital if you experience any worsening of symptoms, shortness of breath, chest discomfort, high fever, chills, night sweats, dizziness, lightheadedness, loss of consciousness or any other worrisome signs or symptoms. This is a summarized report of a complex medical history and hospital stay. For further details, please see the entire medical record. TIME SPENT: Approximately 30 minutes was spent on this discharge, greater than half that time was spent [id number] with the patient discussing discharge plans and instructions. CRISTINA UREÑA [id number]/[facility] #: [id number] [place]
== END 2019-02-19 16:35 | disposition home or self-care (01) ==
LOC: ED 13:34 → MED 20:09
PROVIDERS: ADMIT Internal Medicine; ATTEND Internal Medicine
DX: R10.13 Epigastric pain (principal); E87.8 Other disorders of electrolyte and fluid balance, not elsewhere classified; K22.0 Achalasia of cardia; K31.84 Gastroparesis; I25.10 Atherosclerotic heart disease of native coronary artery without angina pectoris; Z95.5 Presence of coronary angioplasty implant and graft; E78.5 Hyperlipidemia, unspecified; Z86.73 Personal history of transient ischemic attack (TIA), and cerebral infarction without residual deficits; I10 Essential (primary) hypertension; J44.9 Chronic obstructive pulmonary disease, unspecified; G40.909 Epilepsy, unspecified, not intractable, without status epilepticus; K22.70 Barrett's esophagus without dysplasia; F17.210 Nicotine dependence, cigarettes, uncomplicated; K21.9 Gastro-esophageal reflux disease without esophagitis; Z86.718 Personal history of other venous thrombosis and embolism; Z85.3 Personal history of malignant neoplasm of breast; Z93.4 Other artificial openings of gastrointestinal tract status; Z79.899 Other long term (current) drug therapy
CPT/HCPCS: 36415; 71045; 74246; 80048; 80053; 82550; 82553; 83605; 83735; 83880; 84443; 84484; 85025; 85610; 85730; 93005; 96361; 96372; 96374; 96375; 96376; 99285; 99406; A9270-GY; G0378; J0360; J0780; J1170; J1642; J1650; J2270; J2405; J2765; J3475; J3480

== ENCOUNTER → 2019-02-21 12:34 | Emergency (ER) | payer OTHER ==
[~2019-02-21 12:34] MED LIST changes: -Buffered Lidocaine 0.9% SYRIN* 5 ML/SYR SYRINGE INTRADERM ONE; -Famotidine IV* 10 MG/ML 2 ML (20 mg) IV ONE; +Magnesium Sulfate 1 GM IV* 1 GM/100 ML BAG IV ONE; +Metoclopramide IV* 5 MG/ML 2 ML VIAL IV PRN; +Morphine 4 MG/ML VIAL (1 ml) 4 MG/ML VIAL IV ONE; +NS 0.9% 1000 ML** 1,000 ML IV ONE; +Potassium Chloride LIQUID* 20 MEQ PACKET PO ONE; +hydrALAZINE IV* 20 MG/ML VIAL IV SLOW PU ONE
--- NOTE | 2019-02-21 13:18 | ED ---
HPI Chest Pain - HPI Summary HPI Summary: This patient is a 64 year old F returning to ED with a chief complaint of chest pain since today. She rates the pain 10/10 in severity. Symptoms aggravated by nothing. Symptoms alleviated by nothing. Patient reports nausea, watery diarrhea , weakness, and inability to swallow. Patient was seen 4 days ago in ED for similar complaint and admitted to hospital, discharged 2 days ago with Dilaudid and nausea medication. PMHx of anemia, angina, CAD, DVT, embolism, HLD, HTN, MT , syncope, COPD, PNA, PE, diverticulosis, GERD, hiatal hernia, kidney stone, kidney infection, spinal cord injury, TIA, anxiety but no DM, thyroid disease, sleep apnea, dialysis. PSHx of lumpectomy, mastectomy, cardiac stent, left knee surgery, bilateral shoulder surgery, esophageal surgery, partial hysterectomy, and kidney stone surgery. FHx of DM, cardiac disease, and HTN. Patient does not drink or use substances but she is a current smoker of cigarettes. - History of Current Complaint Chief Complaint: EDChestPainROMI Time Seen by Provider: 02/21/19 12:47 Hx Obtained From: Patient Onset/Duration: Started Hours Ago, Still Present Timing: Constant Current Severity: Severe Pain Intensity: 10 Pain Scale Used: 0-10 Numeric Aggravating Factor(s): Nothing Alleviating Factor(s): Nothing Associated Signs and Symptoms: Positive: Weakness, Nausea, Other: - Watery diarrhea Related History: Similar Episode/Dx as: - Four days ago - Additional Pertinent History Primary Care Physician: [id number] - Allergy/Home Medications Allergies/Adverse Reactions: Allergies Allergy/AdvReac Type Severity Reaction Status Date / Time albumin colloid, human Allergy Severe Anaphylatic Verified 02/21/19 12:41 Shock bee venom protein (honey bee) Allergy Severe Anaphylatic Verified 02/21/19 12:41 Shock Iodinated Contrast- Oral and Allergy Severe Anaphylatic Verified 02/21/19 12:41 IV Dye Shock onabotulinumtoxinA Allergy Severe Anaphylatic Verified 02/21/19 12:41 [From Botox] Shock Penicillins Allergy Severe Anaphylatic Verified 02/21/19 12:41 Shock shellfish derived Allergy Severe Anaphylatic Verified 02/21/19 12:41 Shock Adhesive Tape Allergy Mild Itching Verified 02/21/19 12:41 chlorhexidine Allergy Mild Rash And Verified 02/21/19 12:41 Itching latex Allergy Mild Hives Verified 02/21/19 12:41 NSAIDS (Non-Steroidal Allergy Mild Hives Verified 02/21/19 12:41 Anti-Inflamma povidone-iodine Allergy Mild Itching Verified 02/21/19 12:41 fentanyl Allergy Hallucinati Verified 02/21/19 12:41 ons Gadolinium-Containing Allergy Itching Verified 02/21/19 12:41 Contrast Medi ENVIRONMENTAL/SEASONAL Allergy Mild ITCHY,WATERY Uncoded 02/21/19 12:41 HAYFEVER EYES, SNEEZE, CONGESTION PMH/Surg Hx/FS Hx/Imm Hx Previously Healthy: No Endocrine/Hematology History: Reports: Hx Anticoagulant Therapy - plavix, Hx Anemia - possible Denies: Hx Diabetes, Hx Thyroid Disease Cardiovascular History: Reports: Hx Angina - has prn nitro, Hx Coronary Artery Disease - 2 stents- RCA stent 2006, LAD stent 2007, Hx Deep Vein Thrombosis, Hx Embolism, Hx Hypercholesterolemia, Hx Hypertension, Hx Myocardial Infarction, Hx Syncope, Other Cardiovascular Problems/Disorders - cardiac cath Denies: Hx Congestive Heart Failure, Hx Pacemaker/ICD, Hx Valvular Heart Disease Respiratory History: Reports: Hx Chronic Obstructive Pulmonary Disease (COPD) - Pt denies though providers have diagnosed it, Hx Pneumonia, Hx Pulmonary Embolism - and DVT 30 yrs ago, Hx Seasonal Allergies, Other Respiratory Problems /Disorders - SMOKER Denies: Hx Asthma, Hx Sleep Apnea GI History: Reports: Hx Diverticulosis, Hx Gastroesophageal Reflux Disease, Hx Hiatal Hernia - 3 surgeries, Other GI Disorders - achalasia, Fernández's esophagus , gastroparesis, J tube Denies: Hx Ulcer History: Reports: Hx Kidney Infection, Hx Kidney Stones - LAST 12/2015- NO PROBLEMS SINCE PER PATIENT Denies: Hx Dialysis, Hx Renal Disease, Other Problems/Disorders Musculoskeletal History: Reports: Hx Back Problems, Other Musculoskeletal History - L1 fx Denies: Hx Arthritis, Hx Osteoporosis Sensory History: Reports: Hx Cataracts - bilat cataracts Denies: Hx Contacts or Glasses, Hx Hearing Aid Opthamlomology History: Reports: Hx Cataracts - bilat cataracts Denies: Hx Contacts or Glasses Neurological History: Reports: Hx Spinal Cord Injury - L1, Hx Transient Ischemic Attacks (TIA) - 10/2017 [facility] Psychiatric History: Reports: Hx Anxiety Denies: Hx Panic Disorder - Cancer History Cancer Type, Location and Year: RT BREAST CA, 2009 HAD A BILATERAL MASTECTOMY Hx Chemotherapy: No Hx Radiation Therapy: No - Surgical History Surgery Procedure, Year, and Place: RT LUMPECTOMY 02/2010, BILATERAL MASTECTOMY ,. 2006& 2007 CARDIAC STENT AT [facility] IN [place],. LEFT KNEE SURGERY X10,. BILATERAL SHOULDER SURGERY,. ESPOHOGEAL SURGERY,1996, 2015. failed breast implant on left. PARTIAL HYSTERECTOMY, 1976. APPENDIX A CHILD,. CHEST TUBE, 1996. ESOPHAGEAL DILATION. NISSIN FUNDOLPICATION multiple. total left knee replacement 2015. kidney stone surgery. left chest wound surgery 2010. Insertion Infusaport 02/2018 Hx Anesthesia Reactions: No - Immunization History Date of Tetanus Vaccine: utd Date of Influenza Vaccine: fall 2016 Infectious Disease History: No Infectious Disease History: Reports: Hx Clostridium Difficile Denies: Hx Hepatitis, Hx Human Immunodeficiency Virus (HIV), Hx of Known/ Suspected MRSA, Hx Shingles, Hx Tuberculosis, Hx Known/Suspected VRE, Hx Known/ Suspected VRSA, History Other Infectious Disease, Traveled Outside the [place] in Last 30 Days - Family History Known Family History: Positive: Cardiac Disease - Father, 2 brothers - MT. Mother - AFIB, Hypertension, Diabetes - Social History Alcohol Use: None Hx Substance Use: No Substance Use Type: Reports: None Substance Use Comment - Amount & Last Used: prescribed Hx Tobacco Use: Yes Smoking Status (MU): Current Some Day Smoker Type: Cigarettes Amount Used/How Often: 4/day Length of Time of Smoking/Using Tobacco: 40+ YEARS Have You Smoked in the Last Year: No Review of Systems Positive: Chest Pain Gastrointestinal: Other - Inability to swallow Positive: Diarrhea - Watery, Nausea Positive: Weakness All Other Systems Reviewed And Are Negative: Yes Physical Exam - Summary Physical Exam Summary: VITAL SIGNS: Reviewed. GENERAL: Patient is a thin female who is lying comfortable in the stretcher. Patient is not in any acute respiratory distress. HEAD AND FACE: No signs of trauma. No ecchymosis, hematomas or skull depressions. No sinus tenderness. EYES: PERRLA, EOMI x 2, No injected conjunctiva, no nystagmus. EARS: Hearing grossly intact. Ear canals and tympanic membranes are within normal limits. MOUTH: Oropharynx within normal limits. NECK: Supple, trachea is midline, no adenopathy, no JVD, no carotid bruit, no c- spine tenderness, neck with full ROM. CHEST: Symmetric, no tenderness at palpation LUNGS: Clear to auscultation bilaterally. No wheezing or crackles. CVS: Regular rate and rhythm, S1 and S2 present, no murmurs or gallops appreciated. ABDOMEN: Soft, non-tender. No signs of distention. No rebound no guarding, and no masses palpated. Bowel sounds are normal. EXTREMITIES: FROM in all major joints, no edema, no cyanosis or clubbing. NEURO: Alert and oriented x 3. No acute neurological deficits. Speech is normal and follows commands. SKIN: Dry and warm Triage Information Reviewed: Yes Vital Signs On Initial Exam: Initial Vitals Temp Pulse Resp BP Pulse Ox 99.3 F 97 18 191/122 98 02/21/19 12:37 02/21/19 12:37 02/21/19 12:37 02/21/19 12:37 02/21/19 12:37 Vital Signs Reviewed: Yes Diagnostics - Vital Signs Vital Signs Temp Pulse Resp BP Pulse Ox 02/21/19 12:37 99.3 F 97 18 191/122 98 - Laboratory Result Diagrams: 02/21/19 13:10 02/21/19 14:04 Lab Statement: Any lab studies that have been ordered have been reviewed, and results considered in the medical decision making process. - Radiology CXR Radiology Interpretation Completed By: Radiologist Summary of Radiographic Findings: TINY SUGGESTIVE OF COPD, NO EVIDENCE FOR ACUTE FINDING. Dr. Carrion has reviewed this radiology report. - EKG 1246 Cardiac Rate: NL - 82 BPM EKG Rhythm: Sinus Rhythm ST Segment: Normal Summary of EKG Findings: NSR at 82 BPM, no ST elevations. Chest Pain Course/Dx - Course Assessment/Plan: This patient is a 64-year-old female who presents to the emergency room with a chief complaint of having chest pain, nausea and vomiting. The patient has past medical history significant for chronic achalasia and chronic chest pain. She had had cardiac cath about a week ago at [place] which showed no acute occlusion. The patient was admitted to the hospitalist services for an increased exacerbation of the achalasia. Today she returns to the emergency department with chief complaint of chest pain, nausea vomiting and diarrhea and difficulty swallowing. Diarrhea is watery, no recent antibiotics or any sick contacts. In the ED course the patient was given IV fluids for rehydration and Reglan for the nausea and vomiting. Chest x-ray impression: Tiny suggestive COPD. No evidence for acute findings. Test results without any significant abnormality except for WBCs of 11.2, platelets are clumped, sodium level of 1:30, potassium at 3.2, carbon dioxide is 21 and he 13, BNP is 243, magnesium is 1.4. Glucose is 141. In the ED course the patient was given magnesium, potassium. Patient was given a partial dose of morphine for the pain and his symptoms have improved. The patient is able to tolerate by mouth therefore the patient will be discharged home with follow-up with primary care physician and her GI doctor in [place]. I discussed all the findings and test results with the patient. Patient was instructed to return to the emergency room immediately if any of the symptoms return worsens. Plan of care was discussed with the patient and understands and agrees. All questions were answered at patient satisfaction. There were no further complaints or concerns. Lung exam before discharge: CTA B/L. Good air exchange. No wheezing or crackles heard. CVS: S1 and S2 present. No murmurs appreciated. Patient is alert and oriented x 3. Patient is hemodynamically stable. Patient will be discharged home with follow up PCP in the next 2-3 days - Chest Pain Differential Diagnosis/HQI/PQRI: Acute MT, ACS, Angina, CHF, Chest Wall, GI Disease - Diagnoses Provider Diagnoses: Achalasia, Chest pain, atypical, Nausea and vomiting Discharge - Sign-Out/Discharge Documenting (check all that apply): Patient Departure - Discharge Patient Received Moderate/Deep Sedation with Procedure: No - Discharge Plan Condition: Stable Disposition: HOME Patient Education Materials: Chest Pain (ED), Acute Nausea and Vomiting (ED) Referrals: Trish Combs MD [Primary Care Provider] - 3 Days Additional Instructions: Follow-up with your primary care provider and GI physician in [place] in 3 days. RETURN THE ER FOR CHANGING OR WORSENING SYMPTOMS. - Billing Disposition and Condition Condition: STABLE Disposition: Home - Attestation Statements Document Initiated by Scribe: Yes Documenting Scribe: Richie Delarosa Provider For Whom Scribe is Documenting (Include Credential): Polo Carrion MD Scribe Attestation: Richie Chatterjee, scribed for Polo Carrion MD on 02/21/19 at [id number]. Scribe Documentation Reviewed: Yes Provider Attestation: The documentation as recorded by the scribe, Richie Delarosa accurately reflects the service I personally performed and the decisions made by me, Polo Carrion MD Status of Scribe Document: Viewed
[2019-02-21 13:24] LABS: Hematocrit 47 % (35-47); Hemoglobin 15.8 g/dL (12.0-16.0); Mean Corpuscular HGB Conc 34 g/dL (31-36); Mean Corpuscular Hemoglobin 29 pg (27-31); Mean Corpuscular Volume 85 fL (80-97); Red Blood Count 5.49 10^6 /uL (3.70-4.87); Red Cell Distribution Width 15 % (10.5-15); White Blood Count 11.2 10^3/uL (3.5-10.8)
[2019-02-21 13:55] LABS: ABS Lymphocytes 0.7 10^3/ul (1.0-4.8); ABS Monocytes 0.3 10^3/ul (0-0.8); ABS Neutrophils 10.1 10^3/ul (1.5-7.7); Nucleated Red Blood Cells % 0.1; Platelet Count Platelets clumped. 10^3/uL (150-450)
[2019-02-21 14:29] LABS: Albumin 4.4 g/dL (3.2-5.2); Albumin/Globulin Ratio 1.3 (1-3); BUN/Creatinine Ratio 20.3 (8-20); Calcium 9.2 mg/dL (8.6-10.3); EGFR Non-African American 93.4 (>60); Globulin 3.3 g/dL (2-4); Magnesium 1.4 mg/dL (1.9-2.7); Potassium 3.2 mmol/L (3.5-5.0); Total Bilirubin 0.5 mg/dL (0.2-1.0); Total Protein 7.7 g/dL (6.4-8.9)
[2019-02-21 14:31] LABS: Troponin I 0.03 ng/mL (<0.04)
[2019-02-21 14:34] LABS: CKMB ng/mL 3.7 ng/mL (0.6-6.3)
[2019-02-21 14:55] LABS: TSH (Thyroid Stimulating Horm) 0.49 mcIU/mL (0.34-5.60)
[2019-02-21 17:54] VITALS: BP 145/89
== END | disposition home or self-care (01) ==
LOC: ED 12:34
DX: K22.0 Achalasia of cardia (principal); R11.2 Nausea with vomiting, unspecified; R07.89 Other chest pain; I25.10 Atherosclerotic heart disease of native coronary artery without angina pectoris; E78.00 Pure hypercholesterolemia, unspecified; K21.9 Gastro-esophageal reflux disease without esophagitis; J44.9 Chronic obstructive pulmonary disease, unspecified; F41.9 Anxiety disorder, unspecified; F17.210 Nicotine dependence, cigarettes, uncomplicated; R94.31 Abnormal electrocardiogram [ECG] [EKG]; Z85.3 Personal history of malignant neoplasm of breast; Z88.8 Allergy status to other drugs, medicaments and biological substances; Z88.0 Allergy status to penicillin; Z91.041 Radiographic dye allergy status; Z79.01 Long term (current) use of anticoagulants; Z95.5 Presence of coronary angioplasty implant and graft; Z86.718 Personal history of other venous thrombosis and embolism; Z86.711 Personal history of pulmonary embolism; Z90.13 Acquired absence of bilateral breasts and nipples
CPT/HCPCS: 36415; 71045; 80053; 82550; 82553; 83605; 83735; 83880; 84443; 84484; 85025; 85730; 93005; 96361; 96365; 96366; 96375; 96376; 99285; A9270-GY; J0360; J2270; J2765; J3475

== ENCOUNTER 2019-02-26 15:49 | Emergency (ER) | payer OTHER ==
[2019-02-26] MEDS ORDERED: NS 0.9% 1000 ML** 1,000 ML IV ONE (15:54)
[2019-02-26] MEDS ORDERED: Ondansetron INJ* 2 MG/ML VIAL IV ONE ×2 (16:16→19:13)
[2019-02-26] MEDS ORDERED: Morphine 4 MG/ML VIAL (1 ml) 4 MG/ML VIAL IV ONE ×3 (16:16→19:13)
[2019-02-26 16:31] LABS: ABS Basophils 0.1 10^3/ul (0-0.2); ABS Lymphocytes 1.4 10^3/ul (1.0-4.8); ABS Monocytes 1.1 10^3/ul (0-0.8); ABS Neutrophils 10.7 10^3/ul (1.5-7.7); Hematocrit 37 % (35-47); Hemoglobin 12.8 g/dL (12.0-16.0); Lymphocyte % 10.2 %; Mean Corpuscular HGB Conc 34 g/dL (31-36); Mean Corpuscular Hemoglobin 29 pg (27-31); Mean Corpuscular Volume 84 fL (80-97); Mean Platelet Volume 7.4 fL (7.4-10.4); Platelet Count 415 10^3/uL (150-450); Red Blood Count 4.45 10^6 /uL (3.70-4.87); Red Cell Distribution Width 16 % (10.5-15); White Blood Count 13.3 10^3/uL (3.5-10.8)
[2019-02-26 16:44] LABS: INR 1.06 (0.82-1.09)
[2019-02-26 16:54] LABS: ALT 10 U/L (7-52); AST 21 U/L (13-39); Albumin/Globulin Ratio 1.2 (1-3); Alkaline Phosphatase 91 U/L (34-104); Anion Gap 14 mmol/L (2-11); BUN/Creatinine Ratio 20.3 (8-20); Blood Urea Nitrogen 14 mg/dL (6-24); CO2 Carbon Dioxide 22 mmol/L (22-32); Calcium 8.7 mg/dL (8.6-10.3); Chloride 93 mmol/L (101-111); Creatine Kinase 47 U/L (10-223); EGFR African American 103.6 (>60); EGFR Non-African American 85.7 (>60); Globulin 3.4 g/dL (2-4); Glucose 115 mg/dL (70-100); Magnesium 1.4 mg/dL (1.9-2.7); Sodium 129 mmol/L (135-145); Total Protein 7.4 g/dL (6.4-8.9)
--- NOTE | 2019-02-26 16:56 | ED ---
Abdominal Pain/Female - HPI Summary HPI Summary: Patient is a 64-year-old female with a history of severe achalasia, gastroparesis, TIA, chronic abdominal pain who was recently hospitalized for an NSTEMI presenting to the ED from Dr. Combs's office with failure to thrive. . She is becoming more weak and dehydrated at home as she does not have adequate PO intake due to her severe achalasia. She is a patient of Dr. Buckley as [facility]. Patient was last noted to have an LES that did not appear excessively tight at time of the endoscopy. However at this time, she reports approximately 50lb weight loss. Per Dr. Buckley per Dr. Ovalles ( GI at [facility]), likely will need esophagectomy. She is currently unable to have a J -tube placement due to her Plavix as she had a recent NE last week. However she likely will need a Dobbhoff tube placed by CT surgery as [facility]. Patient is complaining 10/10 pain, over the chest, related to her achalasia, further weight loss and failure to thrive. She is also noting severe dehydration and nausea. - History of Current Complaint Chief Complaint: EDAbdPain Stated Complaint: CHEST PAIN PER EMS Time Seen by Provider: 02/26/19 15:50 Hx Obtained From: Patient ?: No Onset/Duration: Sudden Onset Timing: Constant Severity Initially: Severe Severity Currently: Severe Pain Intensity: 10 Pain Scale Used: 0-10 Numeric Location: Other - chest pain Radiates: No Character: Burning Aggravating Factor(s): Food Alleviating Factor(s): Nothing Associated Signs and Symptoms: Positive: Negative - Risk Factors Ectopic Risk Factor: Negative Ovarian Torsion Risk Factor: Negative Allergies/Adverse Reactions: Allergies Allergy/AdvReac Type Severity Reaction Status Date / Time albumin colloid, human Allergy Severe Anaphylatic Verified 02/21/19 12:41 Shock bee venom protein (honey bee) Allergy Severe Anaphylatic Verified 02/21/19 12:41 Shock Iodinated Contrast- Oral and Allergy Severe Anaphylatic Verified 02/21/19 12:41 IV Dye Shock onabotulinumtoxinA Allergy Severe Anaphylatic Verified 02/21/19 12:41 [From Botox] Shock Penicillins Allergy Severe Anaphylatic Verified 02/21/19 12:41 Shock shellfish derived Allergy Severe Anaphylatic Verified 02/21/19 12:41 Shock Adhesive Tape Allergy Mild Itching Verified 02/21/19 12:41 chlorhexidine Allergy Mild Rash And Verified 02/21/19 12:41 Itching latex Allergy Mild Hives Verified 02/21/19 12:41 NSAIDS (Non-Steroidal Allergy Mild Hives Verified 02/21/19 12:41 Anti-Inflamma povidone-iodine Allergy Mild Itching Verified 02/21/19 12:41 fentanyl Allergy Hallucinati Verified 02/21/19 12:41 ons Gadolinium-Containing Allergy Itching Verified 02/21/19 12:41 Contrast Medi ENVIRONMENTAL/SEASONAL Allergy Mild ITCHY,WATERY Uncoded 02/21/19 12:41 HAYFEVER EYES, SNEEZE, CONGESTION Home Medications: Home Medications Calcium Carbonate CHEW TAB* [Tums*] 1,000 mg PO BID 02/26/19 [History Confirmed 02/26/19] Folic Acid TAB* [Folvite TAB*] 1 mg PO DAILY 02/26/19 [History Confirmed ] HYDROmorphone TAB* [Dilaudid TAB*] 4 mg PO Q4H PRN 02/26/19 [History Confirmed 02/26/19] Isosorbide Mononitrate ER TAB* [Imdur ER TAB*] 30 mg PO DAILY 02/26/19 [History Confirmed 02/26/19] Mag Hydrox/Aluminum Hyd/Simeth [Maalox Advanced Suspension] 30 ml PO Q6HR PRN [History Confirmed 02/26/19] Multivitamins/Minerals TAB* [Theragran/minerals TAB*] 1 tab PO DAILY 02/26/19 [ History Confirmed 02/26/19] Thiamine TAB* [Vitamin B-1 TAB*] 100 mg PO DAILY 02/26/19 [History Confirmed 07/09] diPHENhydraMINE PO* [Benadryl PO 50 MG CAP*] 50 mg PO Q6H PRN 02/26/19 [History Confirmed 02/26/19] PMH/Surg Hx/FS Hx/Imm Hx Previously Healthy: No Endocrine/Hematology History: Reports: Hx Anticoagulant Therapy - plavix, Hx Anemia - possible Denies: Hx Diabetes, Hx Thyroid Disease Cardiovascular History: Reports: Hx Angina - has prn nitro, Hx Coronary Artery Disease - 2 stents- RCA stent 2006, LAD stent 2007, Hx Deep Vein Thrombosis, Hx Embolism, Hx Hypercholesterolemia, Hx Hypertension, Hx Myocardial Infarction, Hx Syncope, Other Cardiovascular Problems/Disorders - cardiac cath Denies: Hx Congestive Heart Failure, Hx Pacemaker/ICD, Hx Valvular Heart Disease Respiratory History: Reports: Hx Chronic Obstructive Pulmonary Disease (COPD) - Pt denies though providers have diagnosed it, Hx Pneumonia, Hx Pulmonary Embolism - and DVT 30 yrs ago, Hx Seasonal Allergies, Other Respiratory Problems /Disorders - SMOKER Denies: Hx Asthma, Hx Sleep Apnea GI History: Reports: Hx Diverticulosis, Hx Gastroesophageal Reflux Disease, Hx Hiatal Hernia - 3 surgeries, Other GI Disorders - achalasia, Fernández's esophagus , gastroparesis, J tube Denies: Hx Ulcer History: Reports: Hx Kidney Infection, Hx Kidney Stones - LAST 12/2015- NO PROBLEMS SINCE PER PATIENT Denies: Hx Dialysis, Hx Renal Disease, Other Problems/Disorders Musculoskeletal History: Reports: Hx Back Problems, Other Musculoskeletal History - L1 fx Denies: Hx Arthritis, Hx Osteoporosis Sensory History: Reports: Hx Cataracts - bilat cataracts Denies: Hx Contacts or Glasses, Hx Hearing Aid Opthamlomology History: Reports: Hx Cataracts - bilat cataracts Denies: Hx Contacts or Glasses Neurological History: Reports: Hx Spinal Cord Injury - L1, Hx Transient Ischemic Attacks (TIA) - 10/2017 [facility] Psychiatric History: Reports: Hx Anxiety Denies: Hx Panic Disorder - Cancer History Cancer Type, Location and Year: RT BREAST CA, 2009 HAD A BILATERAL MASTECTOMY Hx Chemotherapy: No Hx Radiation Therapy: No - Surgical History Surgery Procedure, Year, and Place: RT LUMPECTOMY 02/2010, BILATERAL MASTECTOMY ,. 2006& 2007 CARDIAC STENT AT [facility] IN [place],. LEFT KNEE SURGERY X10,. BILATERAL SHOULDER SURGERY,. ESPOHOGEAL SURGERY,1996, 2014. failed breast implant on left. PARTIAL HYSTERECTOMY, 1976. APPENDIX A CHILD,. CHEST TUBE, 1996. ESOPHAGEAL DILATION. NISSIN FUNDOLPICATION . total left knee replacement 2015. kidney stone surgery. left chest wound surgery 2010. Insertion Infusaport 02/2018 Hx Anesthesia Reactions: No - Immunization History Date of Tetanus Vaccine: utd Date of Influenza Vaccine: fall 2016 Hx Pertussis Vaccination: No Immunizations Up to Date: Yes Infectious Disease History: No Infectious Disease History: Reports: Hx Clostridium Difficile Denies: Hx Hepatitis, Hx Human Immunodeficiency Virus (HIV), Hx of Known/ Suspected MRSA, Hx Shingles, Hx Tuberculosis, Hx Known/Suspected VRE, Hx Known/ Suspected VRSA, History Other Infectious Disease, Traveled Outside the [place] in Last 30 Days - Family History Known Family History: Positive: Cardiac Disease - Father, 2 brothers - [place]. Mother - AFIB, Hypertension, Diabetes - Social History Occupation: Unemployed, Disabled Lives: Alone Alcohol Use: None Hx Substance Use: No Substance Use Type: Reports: None Substance Use Comment - Amount & Last Used: prescribed Hx Tobacco Use: Yes Smoking Status (MU): Current Some Day Smoker Type: Cigarettes Amount Used/How Often: 4/day Length of Time of Smoking/Using Tobacco: 40+ YEARS Have You Smoked in the Last Year: No Review of Systems Positive: Fatigue. Negative: Fever, Chills, Skin Diaphoresis Negative: Diplopia Positive: Sore Throat Positive: Chest Pain Negative: Shortness Of Breath, Cough Positive: Abdominal Pain - epigastric pain Genitourinary: Negative Positive: no symptoms reported, see HPI Negative: Arthralgia, Myalgia Neurological: Negative All Other Systems Reviewed And Are Negative: Yes Physical Exam Triage Information Reviewed: Yes Vital Signs On Initial Exam: Initial Vitals Temp Pulse Resp BP Pulse Ox 98.9 F 105 16 175/128 97 02/26/19 15:59 02/26/19 15:59 02/26/19 15:59 02/26/19 15:59 02/26/19 15:59 Vital Signs Reviewed: Yes Appearance: Positive: Well-Appearing, Well-Nourished Skin: Positive: Skin Color Reflects Adequate Perfusion Head/Face: Positive: Normal Head/Face Inspection Eyes: Positive: EOMI, SHAY, Conjunctiva Clear Neck: Positive: Supple, Nontender, No Lymphadenopathy Respiratory/Lung Sounds: Positive: Clear to Auscultation, Breath Sounds Present Cardiovascular: Positive: Tachycardia. Negative: Leg Edema Left, Leg Edema Right Abdomen Description: Positive: Nontender, Other: - tenderness to the epigastric region Neurological: Positive: Sensory/Motor Intact, Alert, Oriented to Person Place, Time Psychiatric: Positive: Normal, Affect/Mood Appropriate AVPU Assessment: Alert Diagnostics - Vital Signs Vital Signs Temp Pulse Resp BP Pulse Ox 02/26/19 16:36 97 24 173/132 96 02/26/19 16:22 96 22 96 02/26/19 16:06 97 23 175/128 96 02/26/19 15:59 98.9 F 105 16 175/128 97 - Laboratory Lab Results: Lab Results 02/26/19 02/26/19 Range/Units 16:20 16:20 WBC 13.3 H (3.5-10.8) 10^3/uL RBC 4.45 (3.70-4.87) 10^6 /uL Hgb 12.8 (12.0-16.0) g/dL Hct 37 (35-47) % MCV 84 (80-97) fL MCH 29 (27-31) pg MCHC 34 (31-36) g/dL RDW 16 H (10.5-15) % Plt Count 415 (150-450) 10^3/uL MPV 7.4 (7.4-10.4) fL Neut % (Auto) 80.5 % Lymph % (Auto) 10.2 % [place] % (Auto) 8.6 % Eos % (Auto) 0.0 % Baso % (Auto) 0.7 % Absolute Neuts (auto) 10.7 H (1.5-7.7) 10^3/ul Absolute Lymphs (auto) 1.4 (1.0-4.8) 10^3/ul Absolute Monos (auto) 1.1 H (0-0.8) 10^3/ul Absolute Eos (auto) 0.0 (0-0.6) 10^3/ul Absolute Basos (auto) 0.1 (0-0.2) 10^3/ul Absolute Nucleated RBC 0.0 10^3/ul Nucleated RBC % 0.0 INR (Anticoag Therapy) 1.06 (0.82-1.09) Result Diagrams: 02/26/19 16:20 02/26/19 16:20 Lab Statement: Any lab studies that have been ordered have been reviewed, and results considered in the medical decision making process. Abdominal Pain Fem Course/Dx - Course Course Of Treatment: Discussed case with Dr. Combs who sent the patient here for further evaluation of failure to thrive due to decreased by mouth intake from severe achalasia. Per Dr. Combs, she will likely need a Dobbhoff tube as she is unable to get a J-tube placed at this time as she is currently on Plavix. We are unable to complete this at [facility]. I've discussed this case with Dr. Ovalles at 4:15pm who suggests transfer as well. Dr. Buckley is patients CT surgeon and most likely will need esophagectomy vs dobhoff tube d/t failure to thrive. Called [facility] transfer center and spoke with transfer center on behalf of Dr. Alexander who accepts patient on behalf of Dr. Buckley. Discussed with patient who is agreeable to be transferred to [place]. c/o pain and nausea and is given zofran and morphine. Patient continues on plavix. Troponin elevated at 0.07. Consistent with recent NSTEMI. EKG NSR. During the course treatment she is given a total of 8 mg morphine,'s 4 mg Zofran, 2 mg magnesium and 40 mg potassium chloride. - Diagnoses Provider Diagnoses: Achalasia, Failure to thrive - Provider Notifications Instructed by Provider To: Transfer Admit/Transition Orders Completed By ED Provider: Yes Discharge - Sign-Out/Discharge Documenting (check all that apply): Patient Departure Patient Received Moderate/Deep Sedation with Procedure: No - Discharge Plan Condition: Fair Disposition: TRANS HIGHER LVL OF CARE FAC Referrals: Trish Combs MD [Primary Care Provider] - - Billing Disposition and Condition Condition: FAIR Disposition: Trans Higher Lvl of Care Fac
[2019-02-26 17:03] LABS: Troponin I 0.07 ng/mL (<0.04)
[2019-02-26] MEDS ORDERED: Magnesium Sulfate 2 GM IV* 2 GM/50 ML BAG IVPB ONE (17:11)
[2019-02-26] MEDS ORDERED: Potassium Chlor TAB* 20 MEQ TAB.ER PO ONE (17:15)
[2019-02-26] MEDS: Potassium Chloride LIQUID* 20 MEQ PACKET PO ONE ×2 (17:30→17:34)
[2019-02-26] MEDS ORDERED: KCL 20 MEQ/100 ML IVPREMIX* 20 MEQ/100 ML BAG IV ONE (17:37)
[2019-02-26 18:28] VITALS: BP 155/119
== END 2019-02-26 19:24 | disposition short-term general hospital (02) ==
LOC: ED 15:49
DX: K22.0 Achalasia of cardia (principal); R62.7 Adult failure to thrive; R94.31 Abnormal electrocardiogram [ECG] [EKG]; I10 Essential (primary) hypertension; I25.10 Atherosclerotic heart disease of native coronary artery without angina pectoris; E78.00 Pure hypercholesterolemia, unspecified; J44.9 Chronic obstructive pulmonary disease, unspecified; K31.84 Gastroparesis; G89.29 Other chronic pain; R10.9 Unspecified abdominal pain; I25.2 Old myocardial infarction; R63.4 Abnormal weight loss; F17.210 Nicotine dependence, cigarettes, uncomplicated; F41.9 Anxiety disorder, unspecified; Z86.73 Personal history of transient ischemic attack (TIA), and cerebral infarction without residual deficits; Z91.041 Radiographic dye allergy status; Z91.040 Latex allergy status; Z88.8 Allergy status to other drugs, medicaments and biological substances; Z79.899 Other long term (current) drug therapy; Z79.01 Long term (current) use of anticoagulants; Z95.5 Presence of coronary angioplasty implant and graft; Z86.718 Personal history of other venous thrombosis and embolism; Z86.711 Personal history of pulmonary embolism; Z87.01 Personal history of pneumonia (recurrent); Z85.3 Personal history of malignant neoplasm of breast; Z90.13 Acquired absence of bilateral breasts and nipples
CPT/HCPCS: 36415; 80053; 82550; 83605; 83735; 83880; 84484; 85025; 85610; 93005; 96361; 96365; 96366; 96368; 96375; 96376; 99284; A9270-GY; J2270; J2405; J3475; J3480

== ENCOUNTER 2019-05-15 21:09 | Emergency (ER) | payer OTHER ==
[2019-05-15] MEDS ORDERED: NS 0.9% 1000 ML** 2,000 ML IV ONE (21:23)
--- NOTE | 2019-05-15 21:23 | ED ---
HPI Chest Pain - HPI Summary HPI Summary: This pt is a 64 y/o female, with hx achalasia, [place], presenting to [facility] via EMS for chest pain and generalized weakness x4 days. Pt reports her visiting nurse went to her house yesterday for hydration with fluids through her port and pt told the nurse her complaints. Nurse called pt's PCP and was advised to come to the ED but pt refused. Today pt reports her pain was worse and became "really bad." She describes chest pain as "gripping type of pain." In February of 2019 pt was transferred to [facility] for [place] where she had a catheterization but had no stents placed. Pt had a feeding tube placed then and was doing well until today. 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 Pt states she has abd pain and has been retching. Denies vomiting. Pt is still a current smoker but denies alcohol use. Pt has been told she might need an esophagectomy in the future. - History of Current Complaint Time Seen by Provider: 05/15/19 21:15 Hx Obtained From: Patient Onset/Duration: Started Days Ago, Still Present Timing: Lasting Days Current Severity: Severe Pain Intensity: 10 Pain Scale Used: 0-10 Numeric Chest Pain Location: Diffuse, Mid Sternal Character: Other: - "gripping" Aggravating Factor(s): Nothing Alleviating Factor(s): Nothing Associated Signs and Symptoms: Positive: Chest Pain, Weakness, Abdominal Pain, Other: - POSITIVE: decreased food intake. Negative: Fever, Vomiting - Additional Pertinent History Primary Care Physician: [id number] - Allergy/Home Medications Allergies/Adverse Reactions: Allergies Allergy/AdvReac Type Severity Reaction Status Date / Time albumin colloid, human Allergy Severe Anaphylatic Verified 04/01/19 12:03 Shock bee venom protein (honey bee) Allergy Severe Anaphylatic Verified 04/01/19 12:03 Shock Iodinated Contrast- Oral and Allergy Severe Anaphylatic Verified 04/01/19 12:03 IV Dye Shock onabotulinumtoxinA Allergy Severe Anaphylatic Verified 04/01/19 12:03 [From Botox] Shock Penicillins Allergy Severe Anaphylatic Verified 04/01/19 12:03 Shock shellfish derived Allergy Severe Anaphylatic Verified 04/01/19 12:03 Shock Adhesive Tape Allergy Mild Itching Verified 04/01/19 12:03 chlorhexidine Allergy Mild Rash And Verified 04/01/19 12:03 Itching latex Allergy Mild Hives Verified 04/01/19 12:03 NSAIDS (Non-Steroidal Allergy Mild Hives Verified 04/01/19 12:03 Anti-Inflamma povidone-iodine Allergy Mild Itching Verified 04/01/19 12:03 fentanyl Allergy Hallucinati Verified 04/01/19 12:03 ons Gadolinium-Containing Allergy Itching Verified 04/01/19 12:03 Contrast Medi ENVIRONMENTAL/SEASONAL Allergy Mild ITCHY,WATERY Uncoded 02/21/19 12:41 HAYFEVER EYES, SNEEZE, CONGESTION PMH/Surg Hx/FS Hx/Imm Hx Endocrine/Hematology History: Reports: Hx Anticoagulant Therapy - plavix, Hx Anemia - possible Denies: Hx Diabetes, Hx Thyroid Disease Cardiovascular History: Reports: Hx Angina - has prn nitro, Hx Coronary Artery Disease - 2 stents- RCA stent 2006, LAD stent 2007, Hx Deep Vein Thrombosis, Hx Embolism, Hx Hypercholesterolemia, Hx Hypertension, Hx Myocardial Infarction, Hx Syncope, Other Cardiovascular Problems/Disorders - cardiac cath Denies: Hx Congestive Heart Failure, Hx Pacemaker/ICD, Hx Valvular Heart Disease Respiratory History: Reports: Hx Chronic Obstructive Pulmonary Disease (COPD) - Pt denies though providers have diagnosed it, Hx Pneumonia, Hx Pulmonary Embolism - and DVT 30 yrs ago, Hx Seasonal Allergies, Other Respiratory Problems /Disorders - SMOKER Denies: Hx Asthma, Hx Sleep Apnea GI History: Reports: Hx Diverticulosis, Hx Gastroesophageal Reflux Disease, Hx Hiatal Hernia - 3 surgeries, Other GI Disorders - achalasia, Fernández's esophagus , gastroparesis, J tube Denies: Hx Ulcer History: Reports: Hx Kidney Infection, Hx Kidney Stones - LAST 12/2015- NO PROBLEMS SINCE PER PATIENT Denies: Hx Dialysis, Hx Renal Disease, Other Problems/Disorders Musculoskeletal History: Reports: Hx Back Problems, Other Musculoskeletal History - L1 fx Denies: Hx Arthritis, Hx Osteoporosis Sensory History: Reports: Hx Cataracts - bilat cataracts Denies: Hx Contacts or Glasses, Hx Hearing Aid Opthamlomology History: Reports: Hx Cataracts - bilat cataracts Denies: Hx Contacts or Glasses Neurological History: Reports: Hx Spinal Cord Injury - L1, Hx Transient Ischemic Attacks (TIA) - 10/2017 [facility] Psychiatric History: Reports: Hx Anxiety Denies: Hx Panic Disorder - Cancer History Cancer Type, Location and Year: RT BREAST CA, 2009 HAD A BILATERAL MASTECTOMY Hx Chemotherapy: No Hx Radiation Therapy: No - Surgical History Surgery Procedure, Year, and Place: RT LUMPECTOMY 02/2010, BILATERAL MASTECTOMY ,. 2006& 2007 CARDIAC STENT AT [place] IN [place],. LEFT KNEE SURGERY X10,. BILATERAL SHOULDER SURGERY,. ESPOHOGEAL SURGERY,1996, 2015. failed breast implant on left. PARTIAL HYSTERECTOMY, 1976. APPENDIX A CHILD,. CHEST TUBE, 1996. ESOPHAGEAL DILATION. NISSIN FUNDOLPICATION multiple. total left knee replacement 2015. kidney stone surgery. left chest wound surgery 2010. Insertion Infusaport 02/2018 Hx Anesthesia Reactions: No - Immunization History Date of Tetanus Vaccine: utd Date of Influenza Vaccine: fall 2016 Infectious Disease History: Reports: Hx Clostridium Difficile Denies: Hx Hepatitis, Hx Human Immunodeficiency Virus (HIV), Hx of Known/ Suspected MRSA, Hx Shingles, Hx Tuberculosis, Hx Known/Suspected VRE, Hx Known/ Suspected VRSA, History Other Infectious Disease - Family History Known Family History: Positive: Cardiac Disease - Father, 2 brothers - [place]. Mother - AFIB, Hypertension, Diabetes - Social History Alcohol Use: None Hx Substance Use: No Substance Use Type: Reports: None Substance Use Comment - Amount & Last Used: prescribed Hx Tobacco Use: Yes Smoking Status (MU): Current Some Day Smoker Type: Cigarettes Amount Used/How Often: 4/day Length of Time of Smoking/Using Tobacco: 40+ YEARS Have You Smoked in the Last Year: No Review of Systems Constitutional: Other - POSITIVE: decreased food intake Negative: Fever, Chills Positive: Chest Pain Gastrointestinal: Other - POSITIVE: retching Positive: Abdominal Pain. Negative: Vomiting Positive: Weakness All Other Systems Reviewed And Are Negative: Yes Physical Exam - Summary Physical Exam Summary: Appearance: Chronically ill appearing woman who appears depressed and tearful giving history. Very slender and appears slight malnourished. Skin: Warm, dry, no obvious rash. Skin turgor is poor. Eyes: sclera anicteric, no conjunctival pallor ENT: mucous membranes moist, pharynx appears normal Neck: Supple, nontender Respiratory: Clear to auscultation, no signs of respiratory distress Cardiovascular: Normal S1, S2. No murmurs. Normal distal pulses in tibial and radial bilaterally. Abdomen: Soft,diffusely mildly tender, normal active bowel sounds present. There is a PEG tube in place that appears well healed. Musculoskeletal: Normal, Strength/ROM Intact Neurological: A&Ox3, awake and alert, mentation is normal, speech is fluent and appropriate Psychiatric: appears depressed and tearful giving history Triage Information Reviewed: Yes Vital Signs On Initial Exam: Initial Vitals Temp Pulse Resp BP Pulse Ox 98.9 F 73 18 164/100 98 05/15/19 21:23 05/15/19 21:23 05/15/19 21:23 05/15/19 21:23 05/15/19 21:23 Vital Signs Reviewed: Yes Diagnostics - Laboratory Result Diagrams: 05/15/19 21:56 05/15/19 21:56 Lab Statement: Any lab studies that have been ordered have been reviewed, and results considered in the medical decision making process. - EKG 21:16 Cardiac Rate: NL - at 84 bpm EKG Rhythm: Sinus Rhythm Summary of EKG Findings: Normal sinus rhythm. Probable left ventricular hypertrophy. Inferior infarct, old. No STEMI. Chest Pain Course/Dx - Course Assessment/Plan: Pt is a 64 y/o female, with hx achalasia, [place], presenting to [facility] via EMS for chest pain and generalized weakness x4 days. Today chest pain was worse and is described as "gripping type of pain." Pt had a feeding tube placed in February 2019 and was doing well until today. 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 Pt states she has abd pain and has been retching. Denies vomiting. Test results are unremarkable for sodium of 131. Two troponins are negative. In the ED course the pt was given IV fluids, dilaudid, zofran. After these mediations pt's pain improved. She was discharged home with follow up from her PCP in 2 days. Pt was recommended to continue her tube feedings. - Diagnoses Provider Diagnoses: Chest pain Discharge - Sign-Out/Discharge Documenting (check all that apply): Patient Departure - Discharge home Patient Received Moderate/Deep Sedation with Procedure: No - Discharge Plan Condition: Good Disposition: HOME Patient Education Materials: Chest Pain (ED) Referrals: Trish Combs MD [Primary Care Provider] - 2 Days Additional Instructions: Your blood work and EKG tonight looked ok, no sign of another heart attack. Continue your medications and try to continue your tube feedings as you really need the nutrition. - Billing Disposition and Condition Condition: GOOD Disposition: Home - Attestation Statements Document Initiated by Kiarra: Yes Documenting Kiarra: Candida Denton Provider For Whom Kiarra is Documenting (Include Credential): Marc Barnes MD Scribzakiya Attestation: ICandida, afshinibed for Marc Barnes MD on 05/16/19 at 1847. Scribe Documentation Reviewed: Yes Provider Attestation: The documentation as recorded by the Candida vyas accurately reflects the service I personally performed and the decisions made by me, Marc Barnes MD Status of Scrkarlie Document: Viewed
[2019-05-15] MEDS ORDERED: HYDROmorphone INJ1* 1 MG/ML SYRINGE IV ONE (21:25)
[2019-05-15] MEDS ORDERED: Ondansetron INJ* 2 MG/ML VIAL IV ONE (21:25)
--- OUTSIDE RECORDS SUMMARY | 2019-05-15 22:00 | XMS REPORT | Continuity of Care Document ---
:1955 External Reference #:[id number] Author Name Rosibel Beltran Care Team Providers Name Role Phone Trish Combs MD Primary Care Physician Unavailable Payers Date Identification Numbers Payment Provider Subscriber Effective: 2014 Policy Number: [id number] [employer] Medicaid [place] Group Number: [id number] [address] [address] PayID: [id number] [place] [address] Problems Active Problems Provider Date Chest pain Rock Domínguez M.D., [facility], Onset: 12/02/2013 FASNC Syncope and collapse Rock Domínguez M.D., [facility], Onset: 09/03/2014 FASNC Arthralgia of the lower leg Benny Celeste M.D. Onset: 04/05/2015 Derangement of knee Benny Celeste M.D. Onset: 04/05/2015 Coronary arteriosclerosis Rock Domínguez M.D., [facility], Onset: 05/09/2015 FASNC Achalasia of esophagus Benny Celeste M.D. Onset: 11/24/2015 Localized, primary osteoarthritis Benny Celeste M.D. Onset: 11/24/2015 Atherosclerotic heart disease of Rock Domínguez M.D., [facility], Onset: 2015 [employer] coronary artery with other FASNC forms of angina pectoris Essential hypertension Rock Domínguez M.D., [facility], Onset: 02/14/2016 FASNC Arthroplasty of knee Benny Celeste M.D. Onset: 03/29/2016 Abdominal pain Taylor Hutchison NP Onset: 04/16/2018 Chronic obstructive lung disease Tennille Sierra N.P. Onset: 04/17/2018 Acute renal failure syndrome Taylor Hutchison NP Onset: 06/17/2018 Nausea and vomiting Liss Chandler NP Onset: 06/16/2018 Hypokalemia Liss Chandler NP Onset: 06/16/2018 Family History Date Family Member(s) Observation Comments General Heart Disease General Cancer General Diabetes Type I Social History Type Date Description Comments Sex Unknown Marital Status Lives With Brother Occupation Retired Tobacco Use Start: Unknown Patient is a current cigarette smoker, smokes some days Smoking Status Reviewed: 05/05/18 Patient is a current cigarette smoker, smokes some days ETOH Use Occasionally consumes alcohol Tobacco Use Start: Unknown Patient is a current 2 cigs weekly smoker, smokes some days Recreational Drug Use Never Used Drugs Exercise Type/Frequency Exercises regularly Allergies, Adverse Reactions, Alerts Active Allergies Reaction Severity Comments Date Shellfish-derived Products Anaphylaxis 11/23/2013 Botox Anaphylaxis 11/23/2013 Bee Sting Anaphylaxis 11/23/2013 Adhesive Tape Hives, Blisters 11/23/2013 Augmentin "not sure" 11/23/2013 Contrast Dye Itching 11/23/2013 NSAIDs Stomach issues 11/23/2013 Penicillins 11/23/2013 Betadine Rash 11/23/2013 Hibiclens Urticaria 12/08/2015 Medications Active Medications SIG Qnty Indications Ordering Date Provider Madonna Baez one tab by mouth 30tabs Benny 03/23/2016 4mg Tablets every 8 hours as Ramon Celeste Dispers needed for nausea Losartan Potassium 1 by mouth every 90tabs Rock Mcgee 02/14/2016 100mg day Ramon Domínguez, Tablets FACC, FASNC Benadryl Allergy 1 tablet by mouth 30tabs Stephany Holm, 12/08/2015 25mg three times a day, M.DEusebio Tablets as needed Nifedipine Unknown 20mg Capsules Fluticasone Propionate 2 sprays each Unknown nostril qd. 50mcg/Act Suspension Melatonin ER 1 tablet at night 1 Unknown 3mg Tablets ER to 2 hours before bedtime Metoprolol Succinate ER 1/2 tab by mouth Unknown every day 50mg Tablets ER 24HR Prochlorperazine twice daily as Unknown Maleate needed N/V 10mg Tablets Amlodipine Besylate 1 by mouth every Unknown 10mg day Tablets Jevity 1.5 Pineda 5 can/day Unknown Liquid Morphine Sulfate ER 1 tab by mouth Unknown 60mg every 8 hours as Tablets ER needed Morphine Sulfate take 1 tab every Unknown 15mg 4hours as needed Tablets for pain. Proair HFA 2 puffs by mouth Unknown 108(90Base) every 4 hours as mcg/Act Aerosol needed for wheezing Vitamin D 1 cap by mouth per Unknown (Ergocalciferol) week x 8 weeks [id number] Capsules Cyanocobalamin 1.0 cubic Unknown 1000mcg/ML centimeters Solution intramuscular every month Clopidogrel Bisulfate 1 by mouth every Unknown 75mg day (On Hold since Tablets 02/09/16) Azelastine HCL instill 1 drop into Unknown 0.05% affected eye 2 Solution times per day for inflammation of eyelid lining due to allergy prn Epipen 2-Godwin use as directed Unknown 0.3mg/0.3ML Solution Auto-Inject Omeprazole 1 cap po twice 90caps Unknown 40mg Capsules DR daily Carisoprodol 1 tab bid for 90tabs Unknown 350mg Tablets muscle spasms/achalasia Simvastatin 2 po qhs 30tabs Unknown 20mg Tablets Nitrostat 1 tab dissolve 25tabs Rock Everardo 0.4mg Tablets Sub under tongue as Ramon Domínguez, needed chest pain FACC, FASNC History Medications Neurontin Take One Capsule By 30caps Benny 03/29/2016 - 300mg Capsules Mouth AT Bedtime Ramon Celeste Unknown [place] take 1-2 tabs every 60tabs Benny 03/23/2016 - 5-325mg Tablets 4-6 hours as needed Ramon Celeste 04/27/2016 for pain Lovenox 1 injection sq 10units Charity Pearl, 03/09/2016 - 40mg/0.4ML everyday following MD Unknown Solution surgery Percocet 1-2 by mouth every 80tabs Benny 03/09/2016 - 5-325mg Tablets 4 to 6 hours as Ramon Celeste 03/23/2016 needed pain Toprol XL 1 by mouth every 90tabs I25.11 Rockpatricia Mcgee 01/13/2016 - 100mg Tablets day in morning 8 Ramon Domínguez, Unknown ER 24HR FACC, FASNC Toprol XL 1 and one half 150tabs I25.11 Rockpatricia Mcgee 01/13/2016 - 50mg Tablets ER tablets (75 mg) by 8 Ramon Domínguez, 01/13/2016 24HR mouth every day FACC, FASNC Toprol XL 1 by mouth every 90tabs I25.11 Rockpatricia Mcgee 01/02/2016 - 50mg Tablets ER day 8 Ramon Domínguez, 01/13/2016 24HR FACC, FASNC Ultram 1-2 by mouth every 30tabs Benny 11/24/2015 - 50mg Tablets night at bedtime as Ramon Celeste 04/27/2016 needed, take with 2 Extra Strength Tylenol Baclofen Unknown - 10mg Tablets 04/29/2018 Erythromycin Base 1 by mouth 4 times Unknown - 400mg a day as directed Unknown Tablets Aspirin 1 by mouth every Unknown - 81mg Tablets day (started saturday03/02/2016 02/10/16) Ondansetron take 1 under tongue Unknown - 8mg Tablets q8 hours as needed 03/02/2016 Dispers nausea Metoprolol Succinate take 1 tablet by Blegen, - ER mouth once daily MD Trish 07/02/2015 25mg Tablets ER 24HR Levocetirizine 1 tablet po daily Blegen, - Dihydrochloride MD Trish 05/07/2015 5mg Tablets Diazepam 1 tablet po daily Blegen, - 5mg Tablets as needed MD Trish 11/15/2015 0601 17 gm every day as Unknown - 3350NF Packet needed 03/21/2015 Tegaderm Film 4"x4 1/2" use as Unknown - Tranparent directed to cover 11/15/2015 Dressing/Frame Style abd wound (Dressing) Misc Guaze Pads 4x4's, use as Unknown - directed for abd 03/21/2015 wound Ergocalciferol 1 cap by mouth Blegen, - 84286Mcau twice weekly MD Trish 11/23/2015 Capsules Montelukast Sodium 1 by mouth at Unknown - 10mg bedtime 11/23/2015 Tablets Calcitonin ([place]) spray one spray Unknown - intranasally every 11/15/2015 200Unit/Act Solution day alternating nostrils Proair HFA 2 puffs by mouth Unknown - 108(90Base) every 4 hours as 11/23/2015 mcg/Act Aerosol needed Hydrocodone-Acetaminop 1 by mouth twice Unknown - hen daily prn 05/07/2015 5-325mg Tablets compression fx 06 1 by mouth every 30tabs Unknown - 5mg Tablets day 03/21/2015 Potassium Chloride 15 meq daily Unknown - 10Meq 03/21/2015 Liquid Diphenhydramine HCL prn 100caps Unknown - 25mg 07/30/2014 Capsules Ondansetron Odt 1 three times a day 30tabs Unknown - 4mg as needed for 03/08/2015 Tablets Dispers nausea Metoprolol Tartrate 1 tab bid 60tabs Unknown - 25mg 05/07/2015 Tablets Losartan Potassium 1 daily 90tabs Unknown - 25mg 02/14/2016 Tablets Aspirin 1 po qd 100tabs Unknown - 81mg Tablets 03/08/2015 Oxycodone HCL 10 mL po 6h prn Unknown - 5mg/5ML severe pain, no 03/08/2015 Solution more than 2 doses per day First-Lansoprazole 10 ML po on empty Unknown - 3mg/ml stomach, prn 09/02/2014 Suspension Medications Administered in Office Medication SIG Qnty Indications Ordering Provider Date Inj, Regadenoson, 0.1 MG Eugene Talley M.D. 12/16/2015 Injection Inj, Regadenoson, 0.1 MG CRISTINA Christianson 12/16/2015 Injection Technetium TC 99M Eugene Talley M.D. 12/16/2015 Tetrofosmin, Per Unit Dose Up To 40 Millicuries Injection Technetium TC 99M CRISTINA Christianson 12/16/2015 Tetrofosmin, Per Unit Dose Up To 40 Millicuries Injection Inj, Regadenoson, 0.1 MG Rock Everardo Domínguez M.D., 08/02/2014 Injection FACC, FASNC Aminophylline Rock Domínguez M.D., 08/02/2014 Injection FACC, FASNC Technetium TC 99M Rock Domínguez M.D., 08/02/2014 Tetrofosmin, Per Unit Dose Up FACC, FASNC To 40 Millicuries Injection Inj, Regadenoson, 0.1 MG Rock Domínguez M.D., 11/30/2013 Injection FACC, FASNC Technetium TC 99M Rock Domínguez M.D., 11/30/2013 Tetrofosmin, Per Unit Dose Up FACC, FASNC To 40 Millicuries Injection Vital Signs Date Vital Result Comment 05/05/2018 12:37pm Height 67 inches 5'7" Weight 106.00 lb Heart Rate 68 /min BP Systolic Sitting 142 mmHg Lyly reg cuff BP Diastolic Sitting 76 mmHg Lyly reg cuff BP Systolic Standing 140 mmHg Lyly reg cuff BP Diastolic Standing 80 mmHg Lyly reg cuff Respiratory Rate 18 /min BMI (Body Mass Index) 16.6 kg/m2 Ejection Fraction >70% echo 12/12/2015 03/03/2018 9:16am Weight 107.00 lb Heart Rate 72 /min BP Systolic 132 mmHg BP Diastolic 80 mmHg Respiratory Rate 16 /min Body Temperature 98.0 F 10/24/2017 9:38am Height 67 inches 5'7" Weight 107.00 lb Heart Rate 62 /min BP Systolic 138 mmHg BP Diastolic 88 mmHg Respiratory Rate 16 /min Body Temperature 98.4 F BMI (Body Mass Index) 16.8 kg/m2 05/17/2016 11:51am Height 65 inches 5'5" Weight 121.00 lb Pain Level 6 BMI (Body Mass Index) 20.1 kg/m2 03/29/2016 10:01am Height 65 inches 5'5" Weight 121.00 lb Heart Rate 68 /min BP Systolic Sitting 122 mmHg BP Diastolic Sitting 60 mmHg Respiratory Rate 16 /min Body Temperature 98.7 F Pain Level 8 BMI (Body Mass Index) 20.1 kg/m2 02/29/2016 10:36am Height 65 inches 5'5" Weight 130.00 lb Heart Rate 64 /min BP Systolic Sitting 108 mmHg BP Diastolic Sitting 70 mmHg Respiratory Rate 16 /min Pain Level 5 BMI (Body Mass Index) 21.6 kg/m2 02/14/2016 9:18am Height 65 inches 5'5" Weight 129.00 lb [...] BMI (Body Mass Index) 21.5 kg/m2 01/13/2016 9:02am Height 65 inches 5'5" Weight 130.50 lb [...] 21.7 kg/m2 Ejection Fraction >70% 12/12/15 01/11/2016 9:04am Height 65 inches 5'5" Weight 130.00 lb Heart Rate 72 /min BP Systolic Sitting 146 mmHg BP Diastolic Sitting 90 mmHg Respiratory Rate 16 /min BMI (Body Mass Index) 21.6 kg/m2 01/02/2016 9:18am Height 65 inches 5'5" Weight 130.00 lb [...] > 70% As of 12/12/15 echo 11/24/2015 1:49pm Height 65 inches 5'5" Weight 110.00 lb Pain Level 6 BMI (Body Mass Index) 18.3 kg/m2 05/09/2015 8:43am Height 65 inches 5'5" Weight 128.31 lb without shoes Heart Rate 70 /min BP Systolic Sitting 154 mmHg LA reg cuff BP Diastolic Sitting 96 mmHg LA reg cuff BP Systolic Standing 150 mmHg LA reg cuff BP Diastolic Standing 102 mmHg LA reg cuff Respiratory Rate 16 /min BMI (Body Mass Index) 21.3 kg/m2 05/03/2015 2:09pm Height 65 inches 5'5" Weight 127.00 lb Pain Level 6 BMI (Body Mass Index) 21.1 kg/m2 04/05/2015 1:04pm Height 67 inches 5'7" Weight 127.00 lb Heart Rate 71 /min BP Systolic Sitting 167 mmHg BP Diastolic Sitting 104 mmHg Pain Level 5 BMI (Body Mass Index) 19.9 kg/m2 09/03/2014 12:35pm Height 65 inches 5'5" Weight 130.00 lb Heart Rate 66 /min BP Systolic Sitting 104 mmHg LA, reg BP Diastolic Sitting 80 mmHg LA, reg BP Systolic Standing 98 mmHg LA BP Diastolic Standing 80 mmHg LA BMI (Body Mass Index) 21.6 kg/m2 07/21/2014 10:16am Height 65 inches 5'5" Weight 141.50 lb Heart Rate 78 /min BP Systolic Sitting 118 mmHg BP Diastolic Sitting 82 mmHg BP Systolic Standing 108 mmHg BP Diastolic Standing 80 mmHg Respiratory Rate 14 /min BMI (Body Mass Index) 23.5 kg/m2 12/02/2013 8:46am Height 65 inches 5'5" Weight 132.00 lb no shoes BP Systolic Sitting 140 mmHg Ra reg cuff BP Diastolic Sitting 104 mmHg Ra reg cuff BP Systolic Standing 130 mmHg Ra BP Diastolic Standing 100 mmHg Ra Respiratory Rate 17 /min BMI (Body Mass Index) 22.0 kg/m2 11/23/2013 1:08pm Height 65.25 inches 5'5.25" Weight 136.00 lb no shoes Heart Rate 90 /min BP Systolic Sitting 200 mmHg Ra, reg cuff BP Diastolic Sitting 128 mmHg Ra, reg cuff BP Systolic Standing 190 mmHg BP Diastolic Standing 116 mmHg Respiratory Rate 18 /min BMI (Body Mass Index) 22.5 kg/m2 Results Test Date Facility Test Result H/L Range Note CBC Auto Diff 02/29/2016 [facility] White Blood 12.2 10^3/uL High 3.5-10.[address] [place] [address] [phone] Red Blood Count 5.11 10^6/uL N 4.0-5.4 Hemoglobin 13.4 g/dL N 12.0-16.0 Hematocrit 42 % N 35-47 Mean Corpuscular Volume 81 fL N 80-97 Mean Corpuscular Hemoglobin 26 pg Low 27-31 Mean Corpuscular HGB Conc 32 g/dL N 31-36 Red Cell Distribution Width 17 % High 10.5-15 Platelet Count 387 10^3/uL N 150-450 Mean Platelet Volume 9 um3 N 7.4-10.4 Abs Neutrophils 8.1 10^3/uL High 1.5-7.7 Abs Lymphocytes 2.8 10^3/uL N 1.0-4.8 Abs Monocytes 1.1 10^3/uL High 0-0.8 Abs Eosinophils 0.1 10^3/uL N 0-0.6 Abs Basophils 0.1 10^3/uL N 0-0.2 Abs Nucleated RBC 0.02 10^3/uL N Granulocyte % 66.3 % N 38-83 Lymphocyte % 22.7 % Low 25-47 Monocyte % 9.3 % High 1-9 Eosinophil % 0.9 % N 0-6 Basophil % 0.8 % N 0-2 Nucleated Red Blood Cells % 0.2 N Inr/Protime 02/29/2016 [facility] Inr 0.97 N 0.89-1.11 [address] [place] [address] [phone] Basic Metabolic 02/29/2016 [facility] Sodium 134 mmol/L N 133- 145 Panel [address] [place] [address] [phone] Potassium 4.2 mmol/L N 3.5-5.0 Chloride 101 mmol/L N 101-111 Co2 Carbon Dioxide 22 mmol/L N 22-32 Anion Gap 11 mmol/L N 2-11 Glucose 83 mg/dL N 70-100 Blood Urea Nitrogen 28 mg/dL High 6-24 Creatinine 0.92 mg/dL N 0.51-0.95 BUN/Creatinine Ratio 30.4 High 8-20 Calcium 9.6 mg/dL N 8.6-10.3 Egfr Non- 62.1 N >60 Egfr 79.8 N >60 1 Urinalysis Profile 02/29/2016 [facility] Urine Color Yellow N [address] [place], [place] [id number] [phone] Urine Appearance Clear N Urine Specific [place] 1.008 Low 1.010-1.030 Urine pH 6.0 N 5-9 Urine Urobilinogen Negative N Negative Urine Ketones Negative N Negative Urine Protein Negative N Negative Urine Leukocytes Negative N Negative Urine Blood 2+ Abnormal Negative Urine Nitrite Negative N Negative Urine Bilirubin Negative N Negative Urine Glucose Negative N Negative Urine White Blood Cell Trace(0-5/hpf) N Absent Urine Red Blood Cell Trace(0-2/hpf) N Absent Urine Bacteria Absent N Absent Urine Squamous Epithelial Cell Present Abnormal Absent Type & Screen 02/29/2016 [facility] Patient Blood Type A Positive N [address] [place] [address] [phone] Antibody Screen NEGATIVE N Urine Culture And 01/11/2016 [facility] Urine Culture SEE RESULT [address] [place] [address] [phone] Type & Screen 01/11/2016 [facility] Patient Blood A Positive N [address] [place] [address] [phone] Antibody Screen NEGATIVE N Urinalysis Profile 01/11/2016 [facility] Urine Color Yellow N [address] [place], [place] [address] [phone] Urine Appearance Cloudy N Urine Specific [place] 1.008 Low 1.010-1.030 Urine pH 6.0 N 5-9 Urine Urobilinogen Negative N Negative Urine Ketones Negative N Negative Urine Protein 2+(100 mg/dL) Abnormal Negative Urine Leukocytes 3+ Abnormal Negative Urine Blood 2+ Abnormal Negative Urine Nitrite Negative N Negative Urine Bilirubin Negative N Negative Urine Glucose Negative N Negative Urine White Blood Cell 3+(>20/hpf) Abnormal Absent Urine Red Blood Cell 2+(6-10/hpf) Abnormal Absent Urine Bacteria 1+ Abnormal Absent Urine Squamous Epithelial Cell Present Abnormal Absent Inr/Protime 01/11/2016 [facility] Inr 0.97 N 0.89-1.[address] [place] [address] [phone] Laboratory test 01/11/2016 [facility] Vitamin B12 731 pg/mL N 180-914 3 finding [address] [place] [address] [phone] Vitamin D Total 25(Oh) 43.1 ng/mL N 30-50 Comp Metabolic Panel 01/11/2016 [facility] Sodium 131 mmol/L Low 133-[address] [place] [address] [phone] Potassium 3.8 mmol/L N 3.5-5.0 Chloride 99 mmol/L Low 101-111 Co2 Carbon Dioxide 24 mmol/L N 22-32 Anion Gap 8 mmol/L N 2-11 Glucose 68 mg/dL Low 70-100 Blood Urea Nitrogen 12 mg/dL N 6-24 Creatinine 0.68 mg/dL N 0.51-0.95 BUN/Creatinine Ratio 17.6 N 8-20 Calcium 9.2 mg/dL N 8.6-10.3 Total Protein 7.3 g/dL N 6.4-8.9 Albumin 4.1 g/dL N 3.2-5.2 Globulin 3.2 g/dL N 2-4 Albumin/Globulin Ratio 1.3 N 1-3 Total Bilirubin 0.30 mg/dL N 0.2-1.0 Alkaline Phosphatase 88 U/L N 34-104 Alt 12 U/L N 7-52 Ast 16 U/L N 13-39 Egfr Non- 88.3 N >60 Egfr 113.5 N >60 4 CBC Auto 01/11/2016 [facility] White Blood 12.3 10^3/uL High 3.5-10.[address] [place] [address] [phone] Red Blood Count 4.88 10^6/uL N 4.0-5.4 Hemoglobin 12.7 g/dL N 12.0-16.0 Hematocrit 40 % N 35-47 Mean Corpuscular Volume 82 fL N 80-97 Mean Corpuscular Hemoglobin 26 pg Low 27-31 Mean Corpuscular HGB Conc 32 g/dL N 31-36 Red Cell Distribution Width 16 % High 10.5-15 Platelet Count 420 10^3/uL N 150-450 Mean Platelet Volume 8 um3 N 7.4-10.4 Abs Neutrophils 9.1 10^3/uL High 1.5-7.7 Abs Lymphocytes 2.0 10^3/uL N 1.0-4.8 Abs Monocytes 1.0 10^3/uL High 0-0.8 Abs Eosinophils 0.1 10^3/uL N 0-0.6 Abs Basophils 0.1 10^3/uL N 0-0.2 Abs Nucleated RBC 0 10^3/uL N Granulocyte % 74.4 % N 38-83 Lymphocyte % 16.0 % Low 25-47 Monocyte % 8.0 % N 1-9 Eosinophil % 1.0 % N 0-6 Basophil % 0.6 % N 0-2 Nucleated Red Blood Cells % 0 N 1 Because ethnic data is not always [...] dialysis) 2 SEE RESULT BELOW Name: ISABEL CA Brigitte : [address]: Benny Celeste MD Acct: [id number] Unit: [id number] AGE: 60 Location: [facility] Re01/11/16 SEX: F Status: REG REF SPEC: [id number] ALLIE: 01/11/16-[address] [facility] [address]: Benny Celeste MD REQ: [id number] RECD: 01/11/16 STATUS: LIBRA GOLDMAN DR: Trish Combs MD _ SOURCE: URINE [facility]: ORDERED: Urine Culture Procedure Result Reported Site Urine Culture Final 01/13/16- 835 ML Organism 1 ESCHERICHIA COLI [place] Count >100,000 (Many) CFU/ML 1. ESCHERICHIA COLI [...] antibiotic reporting. * ML - MAIN LAB ([facility]) . END OF REPORT * ML=Testing performed at Main Lab DEPARTMENT OF PATHOLOGY, [address] [place] [address] Toan Guillaume M.D. Director [facility] # [id number] 3 Normal Range 180 to 914 Indeterminate [...] Kidney failure <15 (or dialysis) Procedures Date Code Description Status 04/02/2019 98340 ECHO Transthoracic, Real-Time 2D With Doppler And Color Completed Flow 04/02/2019 88070 ECHO Transthoracic, Real-Time 2D With Doppler And Color Completed Flow 11/17/2018 20701 ECHO Transthorasic Realtime 2D W Doppler & Color Flow Hosp Completed 10/18/2018 01501 EKG, Interpretation Only Completed 05/19/2018 97314 ECHO Transthorasic Realtime 2D W Doppler & Color Flow Hosp Completed 05/05/2018 11378 EKG Tracing & Interpretation Completed 03/11/2018 39543 Fluoroscopic Guidance For Cent Completed 03/11/2018 05200 Insertion Tunneled Cent Venous Cathr W Subcut Port 5 Yrs Completed Or Oldr 01/14/2018 77500 EKG, Interpretation Only Completed 08/15/2016 64284 EKG, Interpretation Only Completed 04/02/2016 68770 Treadmill Interp/Report Only Completed 04/02/2016 11977 Stress Test Supervsn W/Out I/R Completed 03/09/2016 14001 EKG, Interpretation Only Completed 03/05/2016 72767 TKR Total Knee Replacement Completed 03/05/2016 90015 TKR Total Knee Replacement Completed 01/02/2016 35254 EKG Tracing & Interpretation Completed 12/16/2015 46720 Stress Test Completed 12/16/2015 31419 Myocardial Perfusion Imaging Tomographic (Spect) Multiple Completed Studies 12/12/2015 96746 ECHO Transthoracic, Real-Time 2D With Doppler And Color Completed Flow 06/02/2015 59891 Treadmill Interp/Report Only Completed 06/02/2015 81369 Stress Test Supervsn W/Out I/R Completed 06/01/2015 05432 ECHO Transthorasic Realtime 2D W Doppler & Color Flow Hosp Completed 06/01/2015 62687 EKG, Interpretation Only Completed 05/09/2015 70812 EKG Tracing & Interpretation Completed 01/20/2015 50700 EKG, Interpretation Only Completed 01/20/2015 78217 Echocardiography, Transesophageal, Real Time W/Image 2D Completed W/W/O M-M 01/20/2015 08699 Pulse Wave/Continuous-Interp.RPT Completed 01/20/2015 35588 Color Flow Doppler/Interp & Reprt Completed 01/20/2015 12665 EEG Recording Awake & Drowsy Completed 09/03/2014 81082 EKG Tracing & Interpretation Completed 08/18/2014 71489 EEG Recording Awake & Asleep Completed 08/18/2014 59711 ECHO Transthorasic Realtime 2D W Doppler & Color Flow Hosp Completed 08/17/2014 23430 EKG, Interpretation Only Completed 08/16/2014 62369 EKG, Interpretation Only Completed 08/05/2014 14300 ECHO Transthoracic, Real-Time 2D With Doppler And Color Completed Flow 08/02/2014 69964 Stress Test Completed 08/02/2014 49049 Myocardial Perfusion Imaging Tomographic (Spect) Multiple Completed Studies 07/21/2014 30212 EKG Tracing & Interpretation Completed 07/04/2014 67664 EKG, Interpretation Only Completed 11/30/2013 08289 Stress Test Completed 11/30/2013 23851 Myocardial Perfusion Imaging Tomographic (Spect) Multiple Completed Studies 11/27/2013 06111 ECHO Transthoracic, Real-Time 2D With Doppler And Color Completed Flow 11/23/2013 85418 EKG Tracing & Interpretation Completed 03/01/2013 53351 Treadmill Interp/Report Only Completed 03/01/2013 91129 Stress Test Supervsn W/Out I/R Completed 03/01/2013 50284 EKG, Interpretation Only Completed 02/28/2013 59806 Stress Test Completed 02/28/2013 98122 EKG, Interpretation Only Completed 02/28/2013 40924 EKG, Interpretation Only Completed 10/28/2012 82523 EEG Recording Awake & Drowsy Completed 10/20/2011 07709 EKG, Interpretation Only Completed 10/19/2011 02695 EKG, Interpretation Only Completed 03/22/2010 32921 EKG, Interpretation Only Completed 03/21/2010 10883 EKG, Interpretation Only Completed 04/21/2008 66691 EKG, Interpretation Only Completed 04/21/2008 92949 EKG, Interpretation Only Completed 02/01/2007 99793 EKG, Interpretation Only Completed Encounters Type Date Location Provider Dx Diagnosis Office Visit 02/19/2019 [facility] Divina R10.13 Epigastric pain 10:20a Assoc,CRISTNIA Raman Hospitalists E87.8 Oth disorders of electrolyte and fluid balance, NEC K22.0 Achalasia of cardia K31.84 Gastroparesis E46 Unspecified protein-calorie malnutrition Office Visit 02/17/2019 10:20a [facility] Maryam Dill, R10.13 Epigastric pain Assoc,rodriguez FINCH Hospitalists R11.2 Nausea with vomiting, unspecified K31.84 Gastroparesis 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 cardia Hospitalists R10.13 Epigastric pain I10 Essential (primary) hypertension Office Visit 11/17/2018 9:22a [facility] Aravind I63.9 Cerebral Assoc,rodriguez Roberts PA infarction, Hospitalists unspecified K22.0 Achalasia of cardia K31.84 Gastroparesis I10 Essential (primary) hypertension J44.9 Chronic obstructive pulmonary disease, unspecified Z93.1 Gastrostomy status Office Visit 11/16/2018 [facility] Aravind R26.81 Unsteadiness on 9:21a Assoc,rodriguez Roberts, PA feet Hospitalists R47.9 Unspecified speech disturbances K22.0 Achalasia of cardia J44.9 Chronic obstructive pulmonary disease, unspecified I10 Essential (primary) hypertension Office Visit 11/15/2018 7:00a [facility] Geronimo, R47.01 Aphasia R26.81 Unsteadiness on feet Z86.73 Prsnl hx of TIA (TIA), and cereb infrc w/o resid deficits Z71.6 Tobacco abuse counseling Office Visit 11/14/2018 [facility] Greg R41.82 Altered mental 9:20a Assoc,rodriguez Tafoya, N.P. status, Hospitalists unspecified K22.0 Achalasia of cardia I10 Essential (primary) hypertension Office Visit 10/20/2018 [facility] Tennille Sierra, T40.2x1A Poisoning by oth 10:26a Assoc,pc N.P. opioids, accidental Hospitalists (unintentional), init G92 Toxic encephalopathy N17.9 Acute kidney failure, unspecified K22.0 Achalasia of cardia K31.84 Gastroparesis Z93.4 Other artificial openings of gastrointestinal tract status J44.9 Chronic obstructive pulmonary disease, unspecified G89.29 Other chronic pain Office Visit 10/18/2018 [facility] Tennille Sierra, R44.3 Hallucinations, 10:25a Assoc,pc N.P. unspecified Hospitalists I10 Essential (primary) hypertension Z93.4 Other artificial openings of gastrointestinal tract status J44.9 Chronic obstructive pulmonary disease, unspecified Office Visit 08/04/2018 9:24a [facility] Adam K22.0 Achalasia of Assocrodriguez M.D. cardia Hospitalists I10 Essential (primary) hypertension [facility] Achalasia of Assocrodriguez M.D. cardia Hospitalists J44.9 Chronic obstructive pulmonary disease, unspecified I25.10 Athscl heart disease of [place] coronary artery w/o ang pctrs I10 Essential (primary) hypertension E86.0 Dehydration Office Visit 08/02/2018 [facility] Achalasia of Assoc,rodriguez Rosas M.D. cardia Hospitalists J44.9 Chronic obstructive pulmonary disease, unspecified I25.10 Athscl heart disease of [place] coronary artery w/o ang pctrs I10 Essential (primary) hypertension Office Visit 06/18/2018 1:38p [facility] Taylor K22.0 Achalasia of Assoc,rodriguez Hutchison, MANAGER ASSET MANAGEMENT cardia Hospitalists N17.9 Acute kidney failure, unspecified R11.2 Nausea with vomiting, unspecified E87.6 Hypokalemia Office Visit 06/16/2018 [facility] Liss Gonzalezedikyle K22.0 Achalasia of 1:37p Assoc,pc Geraldine, MANAGER ASSET MANAGEMENT cardia Hospitalists R07.9 Chest pain, unspecified E87.6 Hypokalemia R11.2 Nausea with vomiting, unspecified Office Visit 05/22/2018 2:49p [facility] K22.0 Achalasia of Assoc,rodriguez Rosas M.D. cardia Hospitalists R10.9 Unspecified abdominal pain I10 Essential (primary) hypertension J44.9 Chronic obstructive pulmonary disease, unspecified Office Visit 05/21/2018 2:49p [facility] Ela K22.0 Achalasia of Assoc,rodriguez Crespo, DAYNE cardia Hospitalists R10.9 Unspecified abdominal pain J44.9 Chronic obstructive pulmonary disease, unspecified I10 Essential (primary) hypertension Office Visit 05/19/2018 2:48p [facility] Nikki R10.9 Unspecified Assoc,pc Jose, DO abdominal pain Hospitalists J44.9 Chronic obstructive pulmonary disease, unspecified I10 Essential (primary) hypertension K22.0 Achalasia of cardia Office Visit 05/05/2018 1:00p [facility] Rock Mcgee R07.9 Chest pain, Of Dwight Domínguez M.D., unspecified FACC, FASNC I25.10 Athscl heart disease of [place] coronary artery w/o ang pctrs Office Visit 04/19/2018 10:28a [facility] Tennille Sierra, K22.0 Achalasia of Assoc,pc N.P. cardia Hospitalists I10 Essential (primary) hypertension R10.9 Unspecified abdominal pain J44.9 Chronic obstructive pulmonary disease, unspecified Office Visit 04/18/2018 10:28a [facility] Tennille Sierra, K22.0 Achalasia of Assoc,pc N.P. cardia Hospitalists I10 Essential (primary) hypertension J44.9 Chronic obstructive pulmonary disease, unspecified Office Visit 04/17/2018 10:27a [facility] Tennille Sierra, I10 Essential ( primary) Assoc,pc N.P. hypertension Hospitalists K22.0 Achalasia of cardia J44.9 Chronic obstructive pulmonary disease, unspecified Office Visit 04/16/2018 10:27a [facility] K22.0 Achalasia of Assoc,pc Kianna, MANAGER ASSET MANAGEMENT cardia Hospitalists I10 Essential (primary) hypertension R10.9 Unspecified abdominal pain Office Visit 04/15/2018 10:26a [facility] K22.0 Achalasia of Assoc,pc Kianna, MANAGER ASSET MANAGEMENT cardia Hospitalists I10 Essential (primary) hypertension Office Visit 04/14/2018 10:26a [facility] Kimo R10.9 Unspecified Assoc,rodriguez Castanon M.D. abdominal pain Hospitalists Office Visit 04/13/2018 10:26a [facility] Eugenio R07.9 Chest pain, Assoc,pc Oscar, unspecified Hospitalists MJanelle R10.9 Unspecified abdominal pain K22.0 Achalasia of cardia Office Visit 03/19/2018 7:00a [facility] Tiera Villa, R53.83 Other fatigue R90.82 White matter disease, unspecified I10 Essential (primary) hypertension Office Visit 03/19/2018 [facility] Oliver Beck G45.1 Carotid artery 10:08a Assoc,rodriguez Pruitt MD syndrome Hospitalists (hemispheric) I25.10 Athscl heart disease of [place] coronary artery w/o ang pctrs I10 Essential (primary) hypertension E78.00 Pure hypercholesterolemia, unspecified Office Visit 03/18/2018 7:00a [facility] [place], R53.83 Other fatigue MD I10 Essential (primary) hypertension R90.82 White matter disease, unspecified Office Visit 03/17/2018 7:00a [facility] [place] [place], R53.83 Other fatigue MD R20.1 Hypoesthesia of skin R90.82 White matter disease, unspecified 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 syndrome Hospitalists (hemispheric) I25.10 Athscl heart disease of [place] coronary artery w/o ang pctrs I10 Essential (primary) hypertension E78.00 Pure hypercholesterolemia, unspecified Office Visit 03/03/2018 9:00a Surgical Luisito Johnson, K22.0 Achalasia of Associates Of Dwight FINCH, FACS cardia S21.001D Unspecified open wound of right breast, subsequent encounter Office Visit 01/15/2018 2:22p [facility] Aravind R11.2 Nausea with Assoc,pc CRISTINA Roberts vomiting, Hospitalists unspecified K22.0 Achalasia of cardia I25.10 Athscl heart disease of [place] coronary artery w/o ang pctrs I10 Essential (primary) hypertension Office Visit 01/13/2018 [facility] Greg R11.2 Nausea with 2:20p Assoc,pc Michelet, N.P. vomiting, Hospitalists unspecified K22.0 Achalasia of cardia I25.10 Athscl heart disease of [place] coronary artery w/o ang pctrs I10 Essential (primary) hypertension Office Visit 10/29/2017 7:46a [facility] Adam K22.0 Achalasia of Assoc,rodriguez Rosas M.D. cardia Hospitalists E87.6 Hypokalemia I10 Essential (primary) hypertension Office Visit 10/26/2017 6:53a [facility] Annel K22.0 Achalasia of Assoc,pc Jose Rawls, cardia Hospitalists MANAGER ASSET MANAGEMENT E86.0 Dehydration R11.2 Nausea with vomiting, unspecified R07.2 Precordial pain Office Visit 10/25/2017 6:53a [facility] Aravind K22.0 Achalasia of Assoc,pc CRISTINA Roberts cardia Hospitalists R07.2 Precordial pain R11.2 Nausea with vomiting, unspecified E86.0 Dehydration Office Visit 10/24/2017 9:00a Surgical Erick Leonardo K22.0 [facility] Garcia MD, cardia FACS E86.0 Dehydration R13.10 Dysphagia, unspecified Office Visit 08/18/2017 6:50a [facility] Assoc,pc Adam Rosas, R11.0 Nausea Hospitalists Ramon K22.0 Achalasia of cardia Z86.79 Personal history of other diseases of the circulatory system I10 Essential (primary) hypertension Office Visit 08/17/2017 6:49a [facility] Liss Uriostegui R11.0 Nausea Assoc,pc Hospitalists DAYNE Chandler K22.0 Achalasia of cardia Z86.79 Personal history of other diseases of the circulatory system I10 Essential (primary) hypertension Office Visit 07/26/2017 9:18a [facility] Anamaria SEusebio K22.0 Achalasia of Assoc,pc Lesly Sanford cardia Hospitalists R07.89 Other chest pain R11.2 Nausea with vomiting, unspecified Office Visit 07/25/2017 9:18a [facility] Kimo K22.0 Achalasia of Assoc,pc Ramon Castanon cardia Hospitalists R11.2 Nausea with vomiting, unspecified R07.89 Other chest pain Office Visit 05/14/2017 [facility] Alina R11.10 Vomiting, 3:24p Assoc,pc DAYNE Tanner unspecified Hospitalists K22.0 Achalasia of cardia R07.89 Other chest pain I25.10 Athscl heart disease of [place] coronary artery w/o ang pctrs Office Visit 05/13/2017 [facility] Neil R11.10 Vomiting, 3:24p Assoc,pc MD Jordy unspecified Hospitalists K22.0 Achalasia of cardia R07.89 Other chest pain I25.10 Athscl heart disease of [place] coronary artery w/o ang pctrs Office Visit 01/15/2017 2:56p [facility] Alexa Otero, R07.89 Other chest Assoc,rodriguez Navarro pain Hospitalists K22.0 Achalasia of cardia Z85.3 Personal history of malignant neoplasm of breast Z86.711 Personal history of pulmonary embolism Office Visit 01/14/2017 2:55p [facility] Gordon Campbell R07.89 Other chest Assoc,rodriguez ROSALES M.D. pain Hospitalists K22.0 Achalasia of cardia Z85.3 Personal history of malignant neoplasm of breast Z86.711 Personal history of pulmonary embolism Office Visit 09/16/2016 2:51p [facility] Yumiko K22.0 Achalasia of Assoc,rodriguez Milan D.O. cardia Hospitalists R07.9 Chest pain, unspecified I10 Essential (primary) hypertension E87.6 Hypokalemia Office Visit 09/15/2016 2:50p [facility] Yumiko K22.0 Achalasia of Assoc,rodriguez Milan D.O. cardia Hospitalists R07.9 Chest pain, unspecified I10 Essential (primary) hypertension Office Visit 09/14/2016 2:50p [facility] Neil Spence, K22.0 Achalasia of Assoc,rodriguez FINCH cardia Hospitalists R07.9 Chest pain, unspecified E87.6 Hypokalemia Office Visit 09/12/2016 2:49p [facility] Tin Christopher K22.0 Achalasia of Assoc,rodriguez Olivera M.D.,FACP cardia Hospitalists R07.9 Chest pain, unspecified Office Visit 08/17/2016 [facility]p [facility] Chest pain, Assoc,rodriguez Rosas M.D. unspecified Hospitalists R11.0 Nausea K22.0 Achalasia of cardia Z86.79 Personal history of other diseases of the circulatory system Office Visit 08/16/2016 1:[facility]p [facility] R07.9 Chest pain, Assoc,rodriguez Rosas M.D. unspecified Hospitalists R11.0 Nausea K22.0 Achalasia of cardia Z86.79 Personal history of other diseases of the circulatory system Office Visit 08/15/2016 1:24p [facility] Neil R07.9 Chest pain, Assoc,rodriguez Spence MD unspecified Hospitalists R11.0 Nausea K22.0 Achalasia of cardia Z86.79 Personal history of other diseases of the circulatory system Office Visit 08/14/2016 [facility] Liss Uriostegui R07.9 Chest pain, 1:23p Assoc,pc DAYNE Chandler unspecified Hospitalists R11.0 Nausea K22.0 Achalasia of cardia Z86.79 Personal history of other diseases of the circulatory system Office Visit 05/03/2016 [facility] Eugenio Wagner, T78.40xA Allergy, 10:06a Assocrodriguez M.D. unspecified, Hospitalists initial encounter K22.0 Achalasia of cardia I25.10 Athscl heart disease of [place] coronary artery w/o ang pctrs Office Visit 04/02/2016 4:03p [facility] Neil R07.9 Chest pain, Assoc,pc MD Jordy unspecified Hospitalists K22.70 Bond's esophagus without dysplasia K22.0 Achalasia of cardia I25.10 Athscl heart disease of [place] coronary artery w/o ang pctrs Office Visit 04/01/2016 4:02p [facility] Neil R07.9 Chest pain, Assoc,rodriguez Spence MD unspecified Hospitalists K22.70 Bond's esophagus without dysplasia K22.0 Achalasia of cardia I25.10 Athscl heart disease of [place] coronary artery w/o ang pctrs Office Visit 03/07/2016 11:15a [facility] Rylee I25.119 Athscl heart Assoc,rodriguez Valadez M.D. disease of Hospitalists [place] cor art w unsp ang pctrs E78.5 Hyperlipidemia, unspecified I25.2 Old myocardial infarction [facility] Acute posthemorrhagic 11:15a Assoc,rodriguez Valadez M.D. anemia Hospitalists E78.5 Hyperlipidemia, unspecified I25.119 Athscl heart disease of [place] cor art w unsp ang pctrs I10 Essential (primary) hypertension Office Visit 03/05/2016 11:14a [facility] Eugenio I25.119 Athscl heart Assoc,rodriguez Moore M.D. disease of Hospitalists [place] cor art w unsp ang pctrs E78.5 Hyperlipidemia, unspecified I25.2 Old myocardial infarction I10 Essential (primary) hypertension Office Visit 02/14/2016 10:00a [facility] Rock Mcgee I25.10 Athscl heart Of Dwight Domínguez M.D., disease of FACC, FASNC [place] coronary artery w/o ang pctrs I10 Essential (primary) hypertension [facility] I25.118 Athscl heart 9:45a Of Dwight Domínguez M.D., disease of FACC, FASNC [place] cor art w oth ang pctrs Office Visit 01/02/2016 [facility] Rock Mcgee I25.118 Athscl heart 10:00a Of Dwight Domínguez M.D., disease of FACC, FASNC [place] cor art w ot ang pctrs Office Visit 11/24/2015 [facility] Benny Celeste, M17.12 Unilateral 1:30p Services Of Chris Navarro primary osteoarthritis, left knee Office Visit 06/02/2015 [facility] Alexa Otero, 786.50 Pain Chest 10:54a Assocrodriguez M.D. Unspec Hospitalists 553.3 Hernia Diaphragmatic 272.4 Hyperlipidemia Other Unspec 401.9 Hypertension Unspec Office Visit 05/31/2015 [facility] Kimo 410.70 Myocardial Infarc 10:52a Assoc,rodriguez Castanon M.D. Acute Hospitalists Subendocardial Episode Care Unspec 553.3 Hernia Diaphragmatic 272.4 Hyperlipidemia Other Unspec 401.9 Hypertension Unspec Office Visit 05/09/2015 [facility] Rock Mcgee 414.01 Coronary 9:00a Cardiology Phuong Domínguez M.D., Atherosclerosis [facility] FACC, FASNC [place] Office Visit 05/03/2015 [facility] Silvia 719.46 Pain Joint Lower Leg 2:30p Services Of BLANCA Laguna C.M.A. 715.16 Osteoarthrosis Localized Prim Lower Leg 726.64 Tendinitis Patellar Office Visit 04/05/2015 1:30p Orthopedic Benny Celeste, 719.46 Pain Joint Services Of Chris Navarro Lower Leg 717.9 Internal Derangement Knee Unspec 717.3 Derangement Medial Meniscus Other & Unspec 717.7 Chondromalacia Of Patella 715.16 Osteoarthrosis Localized Prim Lower Leg Office Visit 01/20/2015 [facility] Geronimo, 780.97 Altered 3:25p Clinic MD Mental Status 784.3 Aphasia 435.9 TIA Ischemia Cerebral Transient Unspec Office Visit 01/20/2015 2:59p [facility] Alexa Otero, 599.0 UTI Urinary Assoc,rodriguez Navarro Tract Infection Hospitalists Site Not Spec 435.9 TIA Ischemia Cerebral Transient Unspec 780.97 Altered Mental Status Office Visit 01/19/2015 [facility] Gordon Campbell 599.0 UTI Urinary 2:58p Assoc,rodriguez ROSALES M.D. Tract Infection Hospitalists Site Not Spec 435.9 TIA Ischemia Cerebral Transient Unspec 780.97 Altered Mental Status Office Visit 09/03/2014 1:00p [facility] Rock Mcgee 780.2 Syncope & Ramon Domínguez, Collapse [facility], [facility] Office Visit 08/18/2014 3:38p [facility] Petey 780.2 Syncope & Services Of Dwight Francisco M.D. Collapse Office Visit 08/18/2014 11:05a [facility] Eugenioalejandra Wagner, 780.97 Altered Mental Assocrodriguez M.D. Status Hospitalists 414.9 Ischemic Heart Disease Chronic Unspec 780.39 Convulsions Other 789.00 Pain Abdominal Unspec Site Office Visit 08/16/2014 11:04a [facility] Kimo 780.97 Altered Mental Assoc,rodriguez Castanon M.D. Status Hospitalists 789.00 Pain Abdominal Unspec Site 414.9 Ischemic Heart Disease Chronic Unspec 530.85 bond's esophagus Office Visit 07/21/2014 10:30a [facility] Rock Mcgee 786.50 Pain Chest Ramon Domínguez, Unspec FAC, FASNC Office Visit 07/05/2014 1:21p [facility] Eugenio 786.50 Pain Chest Assoc,rodriguez Moore M.D. Unspec Hospitalists 414.01 Coronary Atherosclerosis [place] 989.5 Toxic Effect Of [place] V15.06 Allegy To Insects And Arachnids Office Visit 07/04/2014 1:20p [facility] Adam 786.50 Pain Chest Assoc,rodriguez Rosas M.D. Unspec Hospitalists 989.5 Toxic Effect Of [place] 414.01 Coronary Atherosclerosis [place] V15.06 Allegy To Insects And Arachnids Office Visit 12/02/2013 8:45a [facility] Rock Mcgee 786.50 Pain Chest Unspec Of Dwight Domínguez M.D., [facility], [facility] Office Visit 11/23/2013 1:00p [facility] Rock Mcgee 786.51 Pain Precordial Of Dwight Domínguez M.D., [facility], [facility] 530.85 bond's esophagus 414.01 Coronary Atherosclerosis [place] Office Visit 08/21/2013 6:57p [facility] Anamaria Castaneda 786.51 Pain Precordial Assoc,pc Marie Sanford.Jorden Hospitalists 530.85 bond's esophagus 414.01 Coronary Atherosclerosis [place] Office Visit 08/20/2013 [facility] Greg 786.51 Pain Precordial 9:14a Assoc,pc Lesly Tafoya Hospitalists 530.85 bond's esophagus 414.01 Coronary Atherosclerosis [place] Office Visit 03/01/2013 10:08a [facility] Rylee 786.50 Pain Chest Assoc,rodriguez Valadez M.D. Unspec Hospitalists 414.01 Coronary Atherosclerosis [place] 530.0 Esophagitis Achalasia & Cardiospasm Office Visit 02/28/2013 10:08a [facility] Rylee 786.50 Pain Chest Assoc,rodriguez Valadez M.D. Unspec Hospitalists 414.01 Coronary Atherosclerosis [place] 530.0 Esophagitis Achalasia & Cardiospasm Office Visit 10/28/2012 9:51a [facility] Gordon Campbell 780.2 Syncope & Assoc,rodriguez ROSALES M.D. Collapse Hospitalists 786.51 Pain Precordial 414.00 Coronary Atherosclerosis Unspec Type Vessel [place]/Graft 959.01 Injury Head Unspecified Office Visit 10/27/2012 9:50a [facility] Gordon Campbell 780.2 Syncope & Assoc,rodriguez ROSALES M.D. Collapse Hospitalists 786.51 Pain Precordial 414.00 Coronary Atherosclerosis Unspec Type Vessel [place]/Graft 959.01 Injury Head Unspecified Office Visit 03/22/2010 12:15a [facility] Patrick Mejia 786.50 Pain Chest Assocrodriguez M.D. Unspec Hospitalists Office Visit 03/21/2010 12:45a [facility] Kimo Conklin, 786.59 Pain Chest Assoc,pc N.P. Other Hospitalists Office Visit 03/16/2009 12:15a [facility] Alexa Otero, 786.59 Pain Chest Assoc,rodriguez Navarro Other Hospitalists Plan of Treatment Future Appointment(s):05/08/2019 1:15 pm - Rock Domínguez M.D., FACNhan, FASGARTH at [facility]05/05/2018 - Rock Domínguez M.D., [facility], RCWTJA91.9 Chest pain, unspecifiedComments:As discussed, your heart seems stable. Please stop smoking. We will recheck your heart with an echo next year.Follow up:after echo 1 yearI25.10 Atherosclerotic heart disease of [place] coronary artery without angina pectoris
--- OUTSIDE RECORDS SUMMARY | 2019-05-15 22:00 | XMS REPORT | Continuity of Care Document ---
:1955 External Reference #:[id number] Author Name Callie Segundo Care Team Providers Name Role Phone Trish Combs MD Primary Care Physician Unavailable Payers Date Identification Numbers Payment Provider Subscriber Effective: 2014 Policy Number: [id number] [employer] Medicaid [place] Group Number: [id number] [address] [address] PayID: [id number] [place] [address] Problems Active Problems Provider Date Chest pain Rock Domínguez M.D., [facility], Onset: 12/02/2013 FAS[facility] Syncope and collapse Rock Domínguez M.D., [facility], Onset: 09/03/2014 FAS[facility] Arthralgia of the lower leg Benny Celeste M.D. Onset: 04/05/2015 Derangement of knee Benny Celeste M.D. Onset: 04/05/2015 Coronary arteriosclerosis Rock Domínguez M.D., [facility], Onset: 05/09/2015 FASNC Achalasia of esophagus Benny Celetse M.D. Onset: 11/24/2015 Localized, primary osteoarthritis Benny Celeste M.D. Onset: 11/24/2015 Atherosclerotic heart disease of Rock Domínguez M.D., [facility], Onset: 2015 [place] coronary artery with other FASNC forms of angina pectoris Essential hypertension Rock Domínguez M.D., [facility], Onset: 02/14/2016 FASNC Arthroplasty of knee Benny Celeste M.D. Onset: 03/29/2016 Abdominal pain Taylor Hutchison NP Onset: 04/16/2018 Chronic obstructive lung disease Tennille Sierra N.P. Onset: 04/17/2018 Pulmonary hypertension Rock Domínguez M.D., [facility], Onset: 05/08/2019 [facility] Acute renal failure syndrome Taylor Hutchison NP Onset: 06/17/2018 Nausea and vomiting Liss Chandler, DAYNE Onset: 06/16/2018 Hypokalemia Liss Gila Chandler NP Onset: 06/16/2018 Family History Date Family Member(s) Observation Comments General Heart Disease General Cancer General Diabetes Type I Social History Type Date Description Comments Sex Unknown Marital Status Lives With Brother Occupation Retired Tobacco Use Start: Unknown Patient is a current cigarette smoker, smokes some days Smoking Status Reviewed: 05/08/19 Patient is a current cigarette smoker, smokes some days ETOH Use Rarely consumes alcohol Tobacco Use Start: Unknown Patient is a current 2 cigs weekly smoker, smokes some days Recreational Drug Use Never Used Drugs Exercise Type/Frequency Exercises regularly Allergies, Adverse Reactions, Alerts Active Allergies Reaction Severity Comments Date Shellfish-derived Anaphylaxis 11/23/2013 Products Botox Anaphylaxis 11/23/2013 Bee Sting Anaphylaxis 11/23/2013 Adhesive Tape Hives, Blisters 11/23/2013 Augmentin "not sure" 11/23/2013 Contrast Dye Itching 11/23/2013 NSAIDs Stomach issues 11/23/2013 Penicillins 11/23/2013 Betadine Rash 11/23/2013 Hibiclens Urticaria 12/08/2015 Oxycontin Itching, Swelling of oxycodone okay 05/08/2019 eyelid Medications Active Medications SIG Qnty Indications Ordering Date Provider Madonna Odt one tab by mouth 30tabs Benny 03/23/2016 4mg Tablets every 8 hours as Ramon Celeste Dispers needed for nausea Losartan Potassium 1 by mouth every day 90tabs Rock Mcgee 02/14/2016 100mg Ramon Domínguez, Tablets [facility], [facility] Benadryl Allergy 2 tablet by mouth 30tabs Stephany Holm, 12/08/2015 25mg every 6 hours, as M.DEusebio Tablets needed Folic Acid take one Unknown 1mg Tablets capsule/tablet daily by mouth Creon use as directed for Unknown [id number] Caps j-tube clog/flush Part Narcan inject in the nose Unknown 4mg/0.1ML Liquid as needed for overdose Hydromorphone HCL 2 tablets every four Unknown 4mg hours as needed, max Tablets daily dose 12 Atorvastatin Calcium 1 by mouth every day Unknown 40mg Tablets Metoprolol Tartrate 1/2 by mouth twice a Unknown 25mg day Tablets Isosorbide Mononitrate 1 by mouth every day Unknown ER 30mg Tablets ER 24HR Pantoprazole Sodium 1 by mouth every day Unknown 40mg Tablets DR Ketotifen Fumarate 1 drop each eye Unknown 0.025% twice per day for Solution allergic conjunctivitis Levocetirizine 1 every day as Unknown Dihydrochloride needed 5mg Tablets Nicotrol as directed, no more Unknown 10mg Inhaler than 5 per day Famotidine 1 by mouth every day Unknown 20mg Tablets Nitrostat 1 tab dissolve under 25tabs Rock Everardo 0.4mg Tablets tongue as needed Ramon Domínguez, Sub chest pain FACC, FASNC Carisoprodol 1 tab 4 times a day 90tabs Unknown 350mg for muscle Tablets spasms/achalasia Epipen 2-Godwin use as directed Unknown 0.3mg/0.3ML Solution Auto-Inject Clopidogrel Bisulfate 1 by mouth every day Unknown 75mg Tablets Cyanocobalamin 1.0 cubic Unknown 1000mcg/ML centimeters Solution intramuscular every month Proair HFA 2 puffs by mouth Unknown 108(90Base) every 4 hours as mcg/Act Aerosol needed for wheezing Morphine Sulfate ER 1 tab by mouth every Unknown 60mg 8 hours as needed Tablets ER Jevity 1.5 Pineda 5 can/day Unknown Liquid Amlodipine Besylate 1 by mouth every day Unknown 10mg Tablets Fluticasone Propionate 2 sprays each Unknown nostril qd. 50mcg/Act Suspension Multi Vitamin Daily 1 by mouth every day Unknown Tablets Thiamine HCL 1 by mouth every day Unknown 100mg Tablets Mag64 1 by mouth every day Unknown 64mg Tablets DR Domingo Lainez Neurontin Take One Capsule 30caps Benny 03/29/2016 - 300mg Capsules By Mouth AT Ramon Celeste Unknown Bedtime [place] take 1-2 tabs 60tabs [place] 03/23/2016 - 5-325mg Tablets every 4-6 hours as Ramon Celeste 04/27/2016 needed for pain Lovenox 1 injection sq 10units Nraeshshantanu Sruthifernando, 03/09/2016 - 40mg/0.4ML Solution everyday following MD Unknown surgery Percocet 1-2 by mouth every 80tabs [place] 03/09/2016 - 5-325mg Tablets 4 to 6 hours as Ramon Celeste 03/23/2016 needed pain Toprol XL 1 and one half 150tabs I25.11 Rock Mcgee 01/13/2016 - 50mg Tablets ER tablets (75 mg) by 8 Ramon Domínguez, 01/13/2016 24HR mouth every day FACC, FASNC Toprol XL 1 by mouth every 90tabs I25.11 Rockpatricia Mcgee 01/13/2016 - 100mg Tablets ER day in morning 8 Ramon Domínguez, Unknown 24HR FACC, FASNC Toprol XL 1 by mouth every 90tabs I25.11 Rockpatricia Mcgee 01/02/2016 - 50mg Tablets ER day 8 Ramon Domínguez, 01/13/2016 24HR FACC, FASNC Ultram 1-2 by mouth every 30tabs [place] 11/24/2015 - 50mg Tablets night at bedtime Ramon Celeste 04/27/2016 as needed, take with 2 Extra Strength Tylenol Guaze Pads 4x4's, use as Unknown - directed for abd 03/21/2015 wound Tegaderm Film 4"x4 1/2" use as Unknown - Tranparent directed to cover 11/15/2015 Dressing/Frame Style abd wound (Dressing) Misc 0601 17 gm every day as Unknown - 3350NF Packet needed 03/21/2015 Diazepam 1 tablet po daily Blegen, - 5mg Tablets as needed MD Trish 11/15/2015 Levocetirizine 1 tablet po daily Blegen, - Dihydrochloride MD Trish 05/07/2015 5mg Tablets Metoprolol Succinate ER take 1 tablet by Garret, - mouth once daily MD Trish 07/02/2015 25mg Tablets ER 24HR Ondansetron take 1 under Unknown - 8mg Tablets tongue q8 hours as 03/02/2016 Dispers needed nausea Vitamin D 1 cap by mouth per Unknown - (Ergocalciferol) week x 8 weeks 05/07/2019 [id number] Capsules Aspirin 1 by mouth every Unknown - 81mg Tablets day (started 03/02/2016Saturday02/10/16) Morphine Sulfate take 1 tab every Unknown - 15mg 4hours as needed 05/07/2019 Tablets for pain. Prochlorperazine twice daily as Unknown - Maleate needed N/V 05/07/2019 10mg Tablets Metoprolol Succinate ER 1/2 tab by mouth Unknown - every day 05/08/2019 50mg Tablets ER 24HR Erythromycin Base 1 by mouth 4 times Unknown - 400mg a day as directed Unknown Tablets Baclofen Unknown - 10mg Tablets 04/29/2018 Melatonin ER 1 tablet at night Unknown - 3mg Tablets ER 1 to 2 hours 05/07/2019 before bedtime Nifedipine Unknown - 20mg Capsules 05/07/2019 First-Lansoprazole 10 ML po on empty Unknown - 3mg/ml stomach, prn 09/02/2014 Suspension Oxycodone HCL 10 mL po 6h prn Unknown - 5mg/5ML severe pain, no 03/08/2015 Solution more than 2 doses per day Aspirin 1 po qd 100tabs Unknown - 81mg Tablets 03/08/2015 Losartan Potassium 1 daily 90tabs Unknown - 25mg 02/14/2016 Tablets Simvastatin 2 po qhs 30tabs Unknown - 20mg Tablets 05/07/2019 Metoprolol Tartrate 1 tab bid 60tabs Unknown - 25mg 05/07/2015 Tablets Ondansetron Odt 1 three times a 30tabs Unknown - 4mg Tablets day as needed for 03/08/2015 Dispers nausea Omeprazole 1 cap po twice 90caps Unknown - 40mg Capsules DR daily 05/07/2019 Diphenhydramine HCL prn 100caps Unknown - 25mg 07/30/2014 Capsules Potassium Chloride 15 meq daily Unknown - 10Meq 03/21/2015 Liquid 06 1 by mouth every 30tabs Unknown - 5mg Tablets day 03/21/2015 Hydrocodone-Acetaminoph 1 by mouth twice Unknown - en daily prn 05/07/2015 5-325mg Tablets compression fx Proair HFA 2 puffs by mouth Unknown - 108(90Base) every 4 hours as 11/23/2015 mcg/Act Aerosol needed Calcitonin (Eunice) spray one spray Unknown - intranasally every 11/15/2015 200Unit/Act Solution day alternating nostrils Azelastine HCL instill 1 drop Unknown - 0.05% into affected eye 05/07/2019 Solution 2 times per day for inflammation of eyelid lining due to allergy prn Montelukast Sodium 1 by mouth at Unknown - 10mg bedtime 11/23/2015 Tablets Ergocalciferol 1 cap by mouth Blegen, - 34969Woir twice weekly MD Trish 11/23/2015 Capsules Medications Administered in Office Medication SIG Qnty [...] Inj, Regadenoson, 0.1 MG Rock Domínguez M.D., 08/02/2014 Injection FACC, FASNC Aminophylline [...] Injection Vital Signs Date Vital Result Comment 05/08/2019 1:16pm Height 67 inches 5'7" Weight 103.00 lb Heart Rate 56 /min BP Systolic Sitting 100 mmHg Lue, reg cuff BP Diastolic Sitting 72 mmHg Lue, reg cuff BP Systolic Standing 106 mmHg Lue, reg cuff BP Diastolic Standing 68 mmHg Lue, reg cuff Respiratory Rate 14 /min BMI (Body Mass Index) 16.1 kg/m2 Ejection Fraction 60-65% echo 04/02/19 05/05/2018 12:37pm Height 67 inches 5'7" Weight [...] H/L Range Note CBC Auto Diff 02/29/2016 [facility] White Blood 12.2 10^3/uL High 3.5-10.[address] [place] [address] [phone] Red Blood Count 5.11 10^6/uL N 4.0-5.4 [...] Blood Cells % 0.2 N Inr/Protime 02/29/2016 [facility] Inr 0.97 N 0.89-1.11 [address] [place] [address] [phone] Basic Metabolic 02/29/2016 [facility] Sodium 134 mmol/L N 133- 145 Panel [address] [place] [address] [phone] Potassium 4.2 mmol/L N 3.5-5.0 Chloride 101 mmol/L N 101-111 Co2 Carbon Dioxide 22 mmol/L N 22-32 Anion Gap 11 mmol/L N 2-11 Glucose 83 mg/dL N 70-100 Blood Urea Nitrogen 28 mg/dL High 6-24 Creatinine 0.92 mg/dL N 0.51-0.95 BUN/Creatinine Ratio 30.4 High 8-20 Calcium 9.6 mg/dL N 8.6-10.3 Egfr Non- 62.1 N >60 Egfr 79.8 N >60 1 Urinalysis Profile 02/29/2016 [facility] Urine Color Yellow N [address] [place] [address] [phone] Urine Appearance Clear N Urine Specific [place] 1.008 Low 1.010-1.030 Urine pH 6.0 N [...] Present Abnormal Absent Type & Screen 02/29/2016 [facility] Patient Blood Type A Positive N [address] [place] [address] [phone] Antibody Screen NEGATIVE N Comp Metabolic Panel 01/11/2016 [facility] Sodium 131 mmol/L Low 133-145 [address] [place] [address] [phone] Potassium 3.8 mmol/L N 3.5-5.0 Chloride 99 [...] 88.3 N >60 Egfr 113.5 N >60 2 Laboratory test 01/11/2016 [facility] Vitamin B12 731 pg/mL N 180-914 3 finding [address] [place] [address] [phone] Vitamin D Total 25(Oh) 43.1 ng/mL N 30-50 Inr/Protime 01/11/2016 [facility] Inr 0.97 N 0.89-1.[address] [place] [address] [phone] Urinalysis Profile 01/11/2016 [facility] Urine Color Yellow N [address] [place] [address] [phone] Urine Appearance Cloudy N Urine Specific [place] 1.008 Low 1.010-1.030 Urine pH 6.0 N [...] Urine Squamous Epithelial Cell Present Abnormal Absent Urine Culture And 01/11/2016 [facility] Urine Culture SEE RESULT [address] [place] [address] [phone] Type & Screen 01/11/2016 [facility] Patient Blood A Positive N [address] [place] [address] [phone] Antibody Screen NEGATIVE N CBC Auto 01/11/2016 [facility] White Blood 12.3 10^3/uL High 3.5-10.[address] [place] [address] [phone] Red Blood Count 4.88 10^6/uL N 4.0-5.4 [...] 5 Kidney failure <15 (or dialysis) 2 Because ethnic data is not always readily [...] 15-29 5 Kidney failure <15 (or dialysis) 3 Normal Range 180 to 914 Indeterminate Range 145 to 180 Deficient Range <145 4 SEE RESULT BELOW Name: ISABEL CA Brigitte : [address]: Benny Celeste MD Acct: [id number] Unit: [id number] AGE: 60 Location: PAT Re01/11/16 SEX: F Status: REG REF SPEC: [id number] ALLIE: 01/11/16-12[address] [facility] DR: Benny Celeste MD REQ: [id number] RECD: 01/11/16-1312 STATUS: LIBRA GOLDMAN DR: Trish Combs MD _ SOURCE: URINE SPDESC: ORDERED: Urine Culture Procedure Result Reported Site Urine Culture Final 01/13/16- 0836 ML Organism 1 ESCHERICHIA COLI [place] Count >100,000 (Many) CFU/ML 1. ESCHERICHIA COLI [...] antibiotic reporting. * ML - MAIN LAB ([facility]) . END OF REPORT * ML=Testing performed at Main Lab DEPARTMENT OF PATHOLOGY, [address] [place] [address] Toan Guillaume M.D. Director [facility] # [id number] Procedures Date Code Description Status 05/08/2019 02304 EKG Tracing & Interpretation Completed 04/02/2019 40532 ECHO Transthoracic, Real-Time 2D With Doppler And Color Completed Flow 04/02/2019 34189 ECHO Transthoracic, Real-Time 2D With Doppler And Color Completed Flow 11/17/2018 29725 ECHO Transthorasic Realtime 2D W Doppler & Color Flow Hosp Completed 10/18/2018 66466 EKG, Interpretation Only Completed 05/19/2018 74463 ECHO Transthorasic Realtime 2D W Doppler & Color Flow Hosp Completed 05/05/2018 20030 EKG Tracing & Interpretation Completed 03/11/2018 51989 Fluoroscopic Guidance For Cent Completed 03/11/2018 72527 Insertion Tunneled Cent Venous Cathr W Subcut Port 5 Yrs Completed Or Oldr 01/14/2018 82960 EKG, Interpretation Only Completed 08/15/2016 31646 EKG, Interpretation Only Completed 04/02/2016 55293 Treadmill Interp/Report Only Completed 04/02/2016 77714 Stress Test Supervsn W/Out I/R Completed 03/09/2016 93825 EKG, Interpretation Only Completed 03/05/2016 93134 TKR Total Knee Replacement Completed 03/05/2016 94532 TKR Total Knee Replacement Completed 01/02/2016 97771 EKG Tracing & Interpretation Completed 12/16/2015 23988 Stress Test Completed 12/16/2015 87230 Myocardial Perfusion Imaging Tomographic (Spect) Multiple Completed Studies 12/12/2015 31012 ECHO Transthoracic, Real-Time 2D With Doppler And Color Completed Flow 06/02/2015 69877 Treadmill Interp/Report Only Completed 06/02/2015 15302 Stress Test Supervsn W/Out I/R Completed 06/01/2015 15779 ECHO Transthorasic Realtime 2D W Doppler & Color Flow Hosp Completed 06/01/2015 60721 EKG, Interpretation Only Completed 05/09/2015 83671 EKG Tracing & Interpretation Completed 01/20/2015 41279 EKG, Interpretation Only Completed 01/20/2015 29291 Echocardiography, Transesophageal, Real Time W/Image 2D Completed W/W/O M-M 01/20/2015 25326 Pulse Wave/Continuous-Interp.RPT Completed 01/20/2015 76501 Color Flow Doppler/Interp & Reprt Completed 01/20/2015 92603 EEG Recording Awake & Drowsy Completed 09/03/2014 21506 EKG Tracing & Interpretation Completed 08/18/2014 37162 EEG Recording Awake & Asleep Completed 08/18/2014 55517 ECHO Transthorasic Realtime 2D W Doppler & Color Flow Hosp Completed 08/17/2014 82421 EKG, Interpretation Only Completed 08/16/2014 24603 EKG, Interpretation Only Completed 08/05/2014 36530 ECHO Transthoracic, Real-Time 2D With Doppler And Color Completed Flow 08/02/2014 13265 Stress Test Completed 08/02/2014 75293 Myocardial Perfusion Imaging Tomographic (Spect) Multiple Completed Studies 07/21/2014 63500 EKG Tracing & Interpretation Completed 07/04/2014 63116 EKG, Interpretation Only Completed 11/30/2013 84264 Stress Test Completed 11/30/2013 71228 Myocardial Perfusion Imaging Tomographic (Spect) Multiple Completed Studies 11/27/2013 47415 ECHO Transthoracic, Real-Time 2D With Doppler And Color Completed Flow 11/23/2013 35440 EKG Tracing & Interpretation Completed 03/01/2013 80569 Treadmill Interp/Report Only Completed 03/01/2013 93317 Stress Test Supervsn W/Out I/R Completed 03/01/2013 20191 EKG, Interpretation Only Completed 02/28/2013 53892 Stress Test Completed 02/28/2013 22231 EKG, Interpretation Only Completed 02/28/2013 22113 EKG, Interpretation Only Completed 10/28/2012 72295 EEG Recording Awake & Drowsy Completed 10/20/2011 10537 EKG, Interpretation Only Completed 10/19/2011 38009 EKG, Interpretation Only Completed 03/22/2010 15027 EKG, Interpretation Only Completed 03/21/2010 31367 EKG, Interpretation Only Completed 04/21/2008 95159 EKG, Interpretation Only Completed 04/21/2008 52533 EKG, Interpretation Only Completed 02/01/2007 71184 EKG, Interpretation Only Completed Encounters Type Date Location Provider Dx Diagnosis Office Visit 02/19/2019 [facility] Divina R10.13 Epigastric pain 10:20a Assoc,CRISTINA Raman Hospitalists E87.8 Oth disorders of electrolyte and fluid balance, NEC K22.0 Achalasia of cardia K31.84 Gastroparesis E46 Unspecified protein-calorie malnutrition Office Visit 02/17/2019 10:20a [facility] Maryam Dill, R10.13 Epigastric pain Assoc,rodriguez FINCH Hospitalists R11.2 Nausea with vomiting, unspecified K31.84 Gastroparesis Z79.891 FPC (current) use of opiate analgesic Office Visit 02/09/2019 9:14a [facility] Adam K22.0 Achalasia of Assrodriguez river M.D. cardia Hospitalists R10.13 Epigastric pain I10 Essential (primary) hypertension Office Visit 11/17/2018 9:22a [facility] Aravind I63.9 Cerebral Assoc,pc [place] infarction, Hospitalists unspecified K22.0 Achalasia of cardia K31.84 Gastroparesis I10 Essential (primary) hypertension J44.9 Chronic obstructive pulmonary disease, unspecified Z93.1 Gastrostomy status Office Visit 11/16/2018 [facility] Aravind R26.81 Unsteadiness on 9:21a Assoc,pc [place], [place] feet Hospitalists R47.9 Unspecified speech disturbances K22.0 Achalasia of cardia J44.9 Chronic obstructive pulmonary disease, unspecified I10 Essential (primary) hypertension Office Visit 11/15/2018 7:00a [facility] [place] Geronimo, R47.01 Aphasia R26.81 Unsteadiness on feet Z86.73 Prsnl hx of TIA (TIA), and cereb infrc w/o resid deficits Z71.6 Tobacco abuse counseling Office Visit 11/14/2018 [facility] Greg R41.82 Altered mental 9:20a Assoc,pc Michelet, N.P. status, Hospitalists unspecified K22.0 Achalasia of cardia I10 Essential (primary) hypertension Office Visit 10/20/2018 [facility] Tennille Sierra, T40.2x1A Poisoning by oth 10:26a Assoc,pc N.P. opioids, accidental Hospitalists (unintentional), init G92 Toxic encephalopathy N17.9 Acute kidney failure, unspecified K22.0 Achalasia of cardia K31.84 Gastroparesis Z93.4 Other artificial openings of gastrointestinal tract status J44.9 Chronic obstructive pulmonary disease, unspecified G89.29 Other chronic pain Office Visit 10/18/2018 [facility] Tennille Sierra, R44.3 Hallucinations, 10:25a Assoc,pc N.P. unspecified Hospitalists I10 Essential (primary) hypertension Z93.4 Other artificial openings of gastrointestinal tract status J44.9 Chronic obstructive pulmonary disease, unspecified [facility] Achalasia of Assoc,rodriguez Rosas M.D. cardi Hospitalists I10 Essential (primary) hypertension Office Visit 08/03/2018 9:24a [facility] Adam K22.0 Achalasia of Assocrodriguez M.D. cardia Hospitalists J44.9 Chronic obstructive pulmonary disease, unspecified I25.10 Athscl heart disease of [place] coronary artery w/o ang pctrs I10 Essential (primary) hypertension E86.0 Dehydration Office Visit 08/02/2018 9:22a [facility] Adam K22.0 Achalasia of Assoc,rodriguez Rosas M.D. cardia Hospitalists J44.9 Chronic obstructive pulmonary disease, unspecified I25.10 Athscl heart disease of [place] coronary artery w/o ang pctrs I10 Essential (primary) hypertension Office Visit 06/18/2018 1:38p [facility] Taylor K22.0 Achalasia of Assoc,pc Kianna, ENERGY SYSTEMS ENGINEER cardia Hospitalists N17.9 Acute kidney failure, unspecified R11.2 Nausea with vomiting, unspecified E87.6 Hypokalemia Office Visit 06/16/2018 [facility] Lissaman Lennontipceciliaisis K22.0 Achalasia of 1:37p Assoc,pc Geraldine, ENERGY SYSTEMS ENGINEER cardia Hospitalists R07.9 Chest pain, unspecified E87.6 Hypokalemia R11.2 Nausea with vomiting, unspecified Office Visit 05/22/2018 [facility] Achalasia of Assoc,rodriguez Rosas M.D. cardia Hospitalists R10.9 Unspecified abdominal pain I10 Essential (primary) hypertension J44.9 Chronic obstructive pulmonary disease, unspecified Office Visit 05/21/2018 2:49p [facility] Ela K22.0 Achalasia of Assoc,rodriguez Crespo NP cardia Hospitalists R10.9 Unspecified abdominal pain J44.9 Chronic obstructive pulmonary disease, unspecified I10 Essential (primary) hypertension Office Visit 05/19/2018 2:48p [facility] Nikki R10.9 Unspecified Assoc,pc Jose, DO abdominal pain Hospitalists J44.9 Chronic obstructive pulmonary disease, unspecified I10 Essential (primary) hypertension K22.0 Achalasia of cardia Office Visit 05/05/2018 1:00p [facility] Rock Mcgee R07.9 Chest pain, Of Dwight Domínguez M.D., unspecified FACC, FASNC I25.10 Athscl heart disease of [place] coronary artery w/o ang pctrs Office Visit 04/19/2018 10:28a [facility] Tennille Rigo, K22.0 Achalasia of Assoc,pc N.P. cardia Hospitalists I10 Essential (primary) hypertension R10.9 Unspecified abdominal pain J44.9 Chronic obstructive pulmonary disease, unspecified Office Visit 04/18/2018 10:28a [facility] Tennille Rigo, K22.0 Achalasia of Assoc,pc N.P. cardia Hospitalists I10 Essential (primary) hypertension J44.9 Chronic obstructive pulmonary disease, unspecified Office Visit 04/17/2018 10:27a [facility] Tennille Sierra, I10 Essential ( primary) Assoc,pc N.P. hypertension Hospitalists K22.0 Achalasia of cardia J44.9 Chronic obstructive pulmonary disease, unspecified Office Visit 04/16/2018 10:27a [facility] Taylor K22.0 Achalasia of Assoc,rodriguez Hutchison, ENERGY SYSTEMS ENGINEER cardia Hospitalists I10 Essential (primary) hypertension R10.9 Unspecified abdominal pain Office Visit 04/15/2018 10:26a [facility] Taylor K22.0 Achalasia of Assoc,rodriguez Hutchison, ENERGY SYSTEMS ENGINEER cardia Hospitalists I10 Essential (primary) hypertension Office Visit 04/14/2018 10:26a [facility] Kimo R10.9 Unspecified Assoc,rodriguez Castanon M.D. abdominal pain Hospitalists Office Visit 04/13/2018 10:26a [facility] Eugenio R07.9 Chest pain, Assoc,pc Oscar, unspecified Hospitalists M.Ashwin R10.9 Unspecified abdominal pain K22.0 Achalasia of cardia Office Visit 03/19/2018 7:00a [facility] Tiera Villa, R53.83 Other fatigue R90.82 White matter disease, unspecified I10 Essential (primary) hypertension Office Visit 03/19/2018 [facility] Oliver Beck G45.1 Carotid artery 10:08a Assoc,rodriguez Pruitt MD syndrome Hospitalists (hemispheric) I25.10 Athscl heart disease of [place] coronary artery w/o ang pctrs I10 Essential (primary) hypertension E78.00 Pure hypercholesterolemia, unspecified Office Visit 03/18/2018 7:00a [facility] Tiera Mcnealvega, R53.83 Other fatigue MD I10 Essential (primary) hypertension R90.82 White matter disease, unspecified Office Visit 03/17/2018 7:00a [facility] Tiera Villa, R53.83 Other fatigue MD R20.1 Hypoesthesia of skin R90.82 White matter disease, unspecified 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 syndrome Hospitalists (hemispheric) I25.10 Athscl heart disease of [place] coronary artery w/o ang pctrs I10 Essential (primary) hypertension E78.00 Pure hypercholesterolemia, unspecified Office Visit 03/03/2018 9:00a Surgical Luisito Johnson, K22.0 [facility] FINCH, FACS cardia S21.001D Unspecified open wound of right breast, subsequent encounter Office Visit 01/15/2018 2:22p [facility] Aravind R11.2 Nausea with Assoc,pc CRISTINA Roberts vomiting, Hospitalists unspecified K22.0 Achalasia of cardia I25.10 Athscl heart disease of [place] coronary artery w/o ang pctrs I10 Essential (primary) hypertension Office Visit 01/13/2018 [facility] Greg R11.2 Nausea with 2:20p Assoc,pc Michelet, N.P. vomiting, Hospitalists unspecified K22.0 Achalasia of cardia I25.10 Athscl heart disease of [place] coronary artery w/o ang pctrs I10 Essential (primary) hypertension Office Visit 10/29/2017 7:46a [facility] Adam K22.0 Achalasia of Assoc,rodriguez Rosas M.D. cardia Hospitalists E87.6 Hypokalemia I10 Essential (primary) hypertension Office Visit 10/26/2017 6:53a [facility] Annel K22.0 Achalasia of Assoc,rodriguez Rawls, 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 E86.0 Dehydration R11.2 Nausea with vomiting, unspecified R07.2 Precordial pain Office Visit 10/25/2017 6:53a [facility] Aravind K22.0 Achalasia of Assoc,pc CRISTINA Roberts cardia Hospitalists R07.2 Precordial pain R11.2 Nausea with vomiting, unspecified E86.0 Dehydration Office Visit 10/24/2017 9:00a Surgical Erick Leonardo K22.0 [facility] Garcia MD, cardia FACS E86.0 Dehydration R13.10 Dysphagia, unspecified Office Visit 08/18/2017 6:50a [facility] Assoc,pc Adam Rosas, R11.0 Nausea Hospitalists Ramon K22.0 Achalasia of cardia Z86.79 Personal history of other diseases of the circulatory system I10 Essential (primary) hypertension Office Visit 08/17/2017 6:49a [facility] Liss Uriostegui R11.0 Nausea Assoc,pc Hospitalists DAYNE Chandler K22.0 Achalasia of cardia Z86.79 Personal history of other diseases of the circulatory system I10 Essential (primary) hypertension Office Visit 07/26/2017 9:18a [facility] Anamaria SEusebio K22.0 Achalasia of Assoc,pc Lesly aSnford cardia Hospitalists R07.89 Other chest pain R11.2 Nausea with vomiting, unspecified Office Visit 07/25/2017 9:18a [facility] Kimo K22.0 Achalasia of Assoc,rodriguez Castanon M.D. cardia Hospitalists R11.2 Nausea with vomiting, unspecified R07.89 Other chest pain Office Visit 05/14/2017 [facility] Alina R11.10 Vomiting, 3:24p Assoc,pc DAYNE Tanner unspecified Hospitalists K22.0 Achalasia of cardia R07.89 Other chest pain I25.10 Athscl heart disease of [place] coronary artery w/o ang pctrs Office Visit 05/13/2017 [facility] Neil R11.10 Vomiting, 3:24p Assoc,pc MD Jordy unspecified Hospitalists K22.0 Achalasia of cardia R07.89 Other chest pain I25.10 Athscl heart disease of [place] coronary artery w/o ang pctrs Office Visit 01/15/2017 2:56p [facility] Alexa Otero, R07.89 Other chest Assperico,rodriguez Navarro pain Hospitalists K22.0 Achalasia of cardia Z85.3 Personal history of malignant neoplasm of breast Z86.711 Personal history of pulmonary embolism Office Visit 01/14/2017 2:55p [facility] Gordon Campbell R07.89 Other chest Assoc,rodriguez ROSALES M.D. pain Hospitalists K22.0 Achalasia of cardia Z85.3 Personal history of malignant neoplasm of breast Z86.711 Personal history of pulmonary embolism Office Visit 09/16/2016 2:51p [facility] Yumiko K22.0 Achalasia of Assoc,rodriguez Milan D.O. cardia Hospitalists R07.9 Chest pain, unspecified I10 Essential (primary) hypertension E87.6 Hypokalemia Office Visit 09/15/2016 2:50p [facility] Yumiko K22.0 Achalasia of Assoc,rodriguez Milan D.O. cardia Hospitalists R07.9 Chest pain, unspecified I10 Essential (primary) hypertension Office Visit 09/14/2016 2:50p [facility] Neil Spence, K22.0 Achalasia of Assoc,rodriguez FINCH cardia Hospitalists R07.9 Chest pain, unspecified E87.6 Hypokalemia Office Visit 09/12/2016 2:49p [facility] Tin Christopher K22.0 Achalasia of Assoc,rodriguez Olivera M.D.,FACP cardia Hospitalists R07.9 Chest pain, unspecified Office Visit 08/17/2016 1:25p [facility] Adam R07.9 Chest pain, Assoc,rodriguez Rosas M.D. unspecified Hospitalists R11.0 Nausea K22.0 Achalasia of cardia Z86.79 Personal history of other diseases of the circulatory system [facility] pain, Assoc,rodriguez Rosas M.D. unspecified Hospitalists R11.0 Nausea K22.0 Achalasia of cardia Z86.79 Personal history of other diseases of the circulatory system Office Visit 08/15/2016 1:24p [facility] Neil R07.9 Chest pain, Assoc,rodriguez Spence MD unspecified Hospitalists R11.0 Nausea K22.0 Achalasia of cardia Z86.79 Personal history of other diseases of the circulatory system Office Visit 08/14/2016 [facility] Liss Uriostegui R07.9 Chest pain, 1:23p Assoc,rodriguez Chnadler, DAYNE unspecified Hospitalists R11.0 Nausea K22.0 Achalasia of cardia Z86.79 Personal history of other diseases of the circulatory system Office Visit 05/03/2016 [facility] Eugenio Pareshsantosh, T78.40xA Allergy, 10:06a rodriguez Correa M.D. unspecified, Hospitalists initial encounter K22.0 Achalasia of cardia I25.10 Athscl heart disease of [place] coronary artery w/o ang pctrs Office Visit 04/02/2016 4:03p [facility] Neil R07.9 Chest pain, Assoc,rodriguez Spence MD unspecified Hospitalists K22.70 Bond's esophagus without dysplasia K22.0 Achalasia of cardia I25.10 Athscl heart disease of [place] coronary artery w/o ang pctrs [facility], Assoc,rodriguez Spence MD unspecified Hospitalists K22.70 Bond's esophagus without dysplasia K22.0 Achalasia of cardia I25.10 Athscl heart disease of [place] coronary artery w/o ang pctrs Office Visit 03/07/2016 11:15a [facility] Rylee I25.119 Athscl heart Assoc,rodriguez Valadez M.D. disease of Hospitalists [place] cor art w unsp ang pctrs E78.5 Hyperlipidemia, unspecified I25.2 Old myocardial infarction [facility] Acute posthemorrhagic 11:15a Assocrodriguez M.D. anemia Hospitalists E78.5 Hyperlipidemia, unspecified I25.119 Athscl heart disease of [place] cor art w unsp ang pctrs I10 Essential (primary) hypertension Office Visit 03/05/2016 11:14a [facility] Eugenio I25.119 Athscl heart Assoc,rodriguez Moore M.D. disease of Hospitalists [place] cor art w unsp ang pctrs E78.5 Hyperlipidemia, unspecified I25.2 Old myocardial infarction I10 Essential (primary) hypertension Office Visit 02/14/2016 10:00a [facility] Rock Everardo I25.10 Athscl heart Of [facility] Domínguez M.D., disease of FACC, FASNC [place] coronary artery w/o ang pctrs I10 Essential (primary) hypertension Office Visit 01/13/2016 [facility] Rock Everardo I25.118 Athscl heart 9:45a Of Dwight Domínguez M.D., disease of FACC, FASNC [place] cor art w oth ang pctrs [facility].118 Athscl heart 10:00a Of [facility] Domínguez M.D., disease of FACC, FASNC [place] cor art w oth ang pctrs Office Visit 11/24/2015 Orthopedic Benny Celeste, M17.12 Unilateral 1:30p Services Of Chris Navarro primary osteoarthritis, left knee Office Visit 06/02/2015 [facility] Alexa Shanna, 786.50 Pain Chest 10:54a Assocrodriguez M.D. Unspec Hospitalists 553.3 Hernia Diaphragmatic 272.4 Hyperlipidemia Other Unspec 401.9 Hypertension Unspec Office Visit 05/31/2015 [facility] Kimo 410.70 Myocardial Infarc 10:52a Assoc,rodriguez Castanon M.D. Acute Hospitalists Subendocardial Episode Care Unspec 553.3 Hernia Diaphragmatic 272.4 Hyperlipidemia Other Unspec 401.9 Hypertension Unspec Office Visit 05/09/2015 [place] Rockpatricia Mcgee 414.01 Coronary 9:00a Cardiology Phuong Domínguez M.D., Atherosclerosis [facility] FACC, FASNC [place] Office Visit 05/03/2015 Orthopedic Silvia 719.46 Pain Joint Lower Leg 2:30p Services Of BLANCA Laguna C.M.A. 715.16 Osteoarthrosis Localized Prim Lower Leg 726.64 Tendinitis Patellar Office Visit 04/05/2015 1:30p Orthopedic Benny Celeste 719.46 Pain Joint Services Of Chris Navarro Lower Leg 717.9 Internal Derangement Knee Unspec 717.3 Derangement Medial Meniscus Other & Unspec 717.7 Chondromalacia Of Patella 715.16 Osteoarthrosis Localized Prim Lower Leg Office Visit 01/20/2015 [facility] Chacorta Geronimo, 780.97 Altered 3:25p Clinic MD Mental Status 784.3 Aphasia 435.9 TIA Ischemia Cerebral Transient Unspec Office Visit 01/20/2015 2:59p [facility] Alexa Otero, 599.0 UTI Urinary Assoc,rodriguez Navarro Tract Infection Hospitalists Site Not Spec 435.9 TIA Ischemia Cerebral Transient Unspec 780.97 Altered Mental Status Office Visit 01/19/2015 [facility] Gordon Shannan 599.0 UTI Urinary 2:58p Assoc,rodriguez ROSALES M.D. Tract Infection Hospitalists Site Not Spec 435.9 TIA Ischemia Cerebral Transient Unspec 780.97 Altered Mental Status Office Visit 09/03/2014 1:00p [facility] Rock Mcgee 780.2 Syncope & Ramon Domínguez, Collapse [facility] Office Visit 08/18/2014 3:38p [place] [facility] Petey 780.2 Syncope & Services Of Dw[facility] Francisco M.D. Collapse Office Visit 08/18/2014 11:05a [facility] Eugenio Wagner, 780.97 Altered Mental Assocrodriguez M.D. Status Hospitalists 414.9 Ischemic Heart Disease Chronic Unspec 780.39 Convulsions Other 789.00 Pain Abdominal Unspec Site Office Visit 08/16/2014 11:04a [facility] Kimo 780.97 Altered Mental Assoc,rodriguez Castanon M.D. Status Hospitalists 789.00 Pain Abdominal Unspec Site 414.9 Ischemic Heart Disease Chronic Unspec 530.85 bond's esophagus Office Visit 07/21/2014 10:30a [facility] Rock Mcgee 786.50 Pain Chest Ramon Domínguez, Unspec FAC, FASWI Office Visit 07/05/2014 1:21p [facility] Eugenio 786.50 Pain Chest Assoc,rodriguez Moore M.D. 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 Unspec Hospitalists 989.5 Toxic Effect Of Ven[place] 414.01 Coronary Atherosclerosis [place] V15.06 Allegy To Insects And Arachnids Office Visit 12/02/2013 8:45a [facility] Rock Everardo 786.50 Pain Chest Unspec Of Dwight Domínguez M.D., [facility] Office Visit 11/23/2013 1:00p [facility] Rock Mcgee 786.51 Pain Precordial Of Dwight Domínguez M.D., [facility] 530.85 bond's esophagus 414.01 Coronary Atherosclerosis [place] Office Visit 08/21/2013 6:57p [facility] Anamaria S. 786.51 Pain Precordial Assoc,pc Marie Sanford.Jorden Hospitalists 530.85 bond's esophagus 414.01 Coronary Atherosclerosis [place] Office Visit 08/20/2013 [facility] Greg 786.51 Pain Precordial 9:14a Assoc,pc Lesly Tafoya Hospitalists 530.85 bond's esophagus 414.01 Coronary Atherosclerosis [place] Office Visit 03/01/2013 10:08a [facility] Rylee 786.50 Pain Chest Assoc,rodriguez Valadez M.D. Unspec Hospitalists 414.01 Coronary Atherosclerosis [place] 530.0 Esophagitis Achalasia & Cardiospasm Office Visit 02/28/2013 10:08a [facility] Rylee 786.50 Pain Chest Assoc,rodriguez Valadez M.D. Unspec Hospitalists 414.01 Coronary Atherosclerosis [place] 530.0 Esophagitis Achalasia & Cardiospasm Office Visit 10/28/2012 9:51a [facility] Gordon Campbell 780.2 Syncope & Assoc,rodriguez ROSALES M.D. Collapse Hospitalists 786.51 Pain Precordial 414.00 Coronary Atherosclerosis Unspec Type Vessel [place]raft 959.01 Injury Head Unspecified Office Visit 10/27/2012 9:50a [facility] Gordon Campbell 780.2 Syncope & Assoc,rodriguez ROSALES M.D. Collapse Hospitalists 786.51 Pain Precordial 414.00 Coronary Atherosclerosis Unspec Type Vessel [place]raft 959.01 Injury Head Unspecified Office Visit 03/22/2010 12:15a [facility] Patrick Mejia, 786.50 Pain Chest Assocrodriguez M.D. Unspec Hospitalists Office Visit 03/21/2010 12:45a [facility] Kimo Conklin, 786.59 Pain Chest Assoc,pc N.P. Other Hospitalists Office Visit 03/16/2009 12:15a [facility] Alexa Heckhn, 786.59 Pain Chest Assoc,rodriguez [place]. Other Hospitalists Plan of Treatment 05/08/2019 - [place] Domínguez M.D., [facility], TSTWTU86.9 Chest pain, unspecifiedComments:As discussed, I feel you may have your EGD with dilatation with Dr. Buckley at [place] sometime in May of 2019. Please stop smoking. Call me if heart concerns.Follow up:one year after echoI27.20 Pulmonary hypertension , unspecifiedNew Orders:Echocardiogram, Ordered: 05/08/19
[2019-05-15 22:03] LABS: ABS Basophils 0.1 10^3/ul (0-0.2); ABS Lymphocytes 1.7 10^3/ul (1.0-4.8); ABS Monocytes 0.5 10^3/ul (0-0.8); Eosinophil % 0.5 %; Hematocrit 36 % (35-47); Lymphocyte % 27.1 %; Mean Corpuscular HGB Conc 34 g/dL (31-36); Mean Corpuscular Hemoglobin 27 pg (27-31); Mean Corpuscular Volume 80 fL (80-97); Mean Platelet Volume 7.8 fL (7.4-10.4); Nucleated Red Blood Cells % 0.1; Platelet Count 302 10^3/uL (150-450); Red Blood Count 4.47 10^6 /uL (3.70-4.87); Red Cell Distribution Width 17 % (10-15); White Blood Count 6.3 10^3/uL (3.5-10.8)
[2019-05-15 22:25] LABS: Albumin 3.8 g/dL (3.2-5.2); Albumin/Globulin Ratio 1.4 (1-3); BUN/Creatinine Ratio 30.4 (8-20); Calcium 8.5 mg/dL (8.6-10.3); EGFR African American 103.6 (>60); EGFR Non-African American 85.7 (>60); Globulin 2.8 g/dL (2-4); Total Bilirubin 0.3 mg/dL (0.2-1.0); Total Protein 6.6 g/dL (6.4-8.9)
[2019-05-15 22:27] LABS: Troponin I 0.01 ng/mL (<0.04)
[2019-05-16] MEDS ORDERED: HYDROmorphone INJ1* 1 MG/ML SYRINGE IV ONE (00:04)
[2019-05-16 03:00] VITALS: BP 147/76
== END 2019-05-16 02:58 | disposition home or self-care (01) ==
LOC: ED 21:09
DX: R07.89 Other chest pain (principal); R53.1 Weakness; I25.2 Old myocardial infarction; I10 Essential (primary) hypertension; Z86.718 Personal history of other venous thrombosis and embolism; Z86.711 Personal history of pulmonary embolism; Z79.01 Long term (current) use of anticoagulants; J44.9 Chronic obstructive pulmonary disease, unspecified; Z95.5 Presence of coronary angioplasty implant and graft; Z83.1 Family history of other infectious and parasitic diseases; Z96.652 Presence of left artificial knee joint; Z88.6 Allergy status to analgesic agent; Z88.3 Allergy status to other anti-infective agents; Z91.030 Bee allergy status; Z91.041 Radiographic dye allergy status; Z91.040 Latex allergy status; Z88.0 Allergy status to penicillin; Z91.013 Allergy to seafood; Z88.8 Allergy status to other drugs, medicaments and biological substances; Z91.048 Other nonmedicinal substance allergy status; Z87.891 Personal history of nicotine dependence
CPT/HCPCS: 36415; 80053; 83605; 84484; 85025; 93005; 96361; 96374; 96375; 96376; 99283; J1170; J2405

== ENCOUNTER 2019-07-16 11:11 | Emergency (ER) | payer OTHER ==
[2019-07-16] MEDS ORDERED: Ondansetron INJ* 2 MG/ML VIAL IV ONE (11:20)
--- NOTE | 2019-07-16 11:23 | ED ---
HPI Chest Pain - HPI Summary HPI Summary: 64 year old F brought in by EMS to [facility] complains of sharp, non-radiating chest pain rated 10/10 in severity currently with associated nausea since 3 days ago, worse since this morning. Patient states she had a myocardial infarction in January 2019. She states that her symptoms today feel like her myocardial infarction in January. Symptoms aggravated by nothing. Not aggravated by movement, position change, palpation, deep breathing. Symptoms alleviated by nothing. - History of Current Complaint Hx Obtained From: Patient Onset/Duration: Started Days Ago - 3, Still Present, Worse Since - today Timing: Constant Current Severity: Severe Pain Intensity: 10 Pain Scale Used: 0-10 Numeric Character: Sharp/Stabbing Aggravating Factor(s): Nothing Alleviating Factor(s): Nothing Associated Signs and Symptoms: Positive: Nausea - Additional Pertinent History Primary Care Physician: ERIKA - Allergy/Home Medications Allergies/Adverse Reactions: Allergies Allergy/AdvReac Type Severity Reaction Status Date / Time albumin colloid, human Allergy Severe Anaphylatic Verified 05/27/19 10:29 Shock bee venom protein (honey bee) Allergy Severe Anaphylatic Verified 05/27/19 10:29 Shock Iodinated Contrast Media Allergy Severe Anaphylatic Verified 05/27/19 10:29 [Iodinated Contrast- Oral Shock and IV Dye] onabotulinumtoxinA Allergy Severe Anaphylatic Verified 05/27/19 10:29 [From Botox] Shock Penicillins Allergy Severe Anaphylatic Verified 05/27/19 10:29 Shock shellfish derived Allergy Severe Anaphylatic Verified 05/27/19 10:29 Shock Adhesive Tape Allergy Mild Itching Verified 05/27/19 10:29 chlorhexidine Allergy Mild Rash And Verified 05/27/19 10:29 Itching latex Allergy Mild Hives Verified 05/27/19 10:29 NSAIDS (Non-Steroidal Allergy Mild Hives Verified 05/27/19 10:29 Anti-Inflamma povidone-iodine Allergy Mild Itching Verified 05/27/19 10:29 fentanyl Allergy Hallucinati Verified 05/27/19 10:29 ons Gadolinium-Containing Allergy Itching Verified 05/27/19 10:29 Contrast Medi ENVIRONMENTAL/SEASONAL Allergy Mild ITCHY,WATERY Uncoded 05/27/19 10:29 HAYFEVER EYES, SNEEZE, CONGESTION Home Medications: Home Medications Isosorbide Mononitrate ER TAB* [Imdur ER TAB*] 30 mg PO DAILY 07/16/19 [History Confirmed 07/16/19] PMH/Surg Hx/FS Hx/Imm Hx Endocrine/Hematology History: Reports: Hx Anticoagulant Therapy - plavix, Hx Anemia - possible Denies: Hx Diabetes, Hx Thyroid Disease Cardiovascular History: Reports: Hx Angina - has prn nitro, Hx Coronary Artery Disease - 2 stents- RCA stent 2006, LAD stent 2007, Hx Deep Vein Thrombosis, Hx Embolism, Hx Hypercholesterolemia, Hx Hypertension, Hx Myocardial Infarction, Hx Syncope, Other Cardiovascular Problems/Disorders - cardiac cath Denies: Hx Congestive Heart Failure, Hx Pacemaker/ICD, Hx Valvular Heart Disease Respiratory History: Reports: Hx Chronic Obstructive Pulmonary Disease (COPD) - Pt denies though providers have diagnosed it, Hx Pneumonia, Hx Pulmonary Embolism - and DVT 30 yrs ago, Hx Seasonal Allergies, Other Respiratory Problems /Disorders - SMOKER Denies: Hx Asthma, Hx Sleep Apnea GI History: Reports: Hx Diverticulosis, Hx Gastroesophageal Reflux Disease, Hx Hiatal Hernia - 3 surgeries, Other GI Disorders - achalasia, Fernández's esophagus , gastroparesis, J tube Denies: Hx Ulcer History: Reports: Hx Kidney Infection, Hx Kidney Stones - LAST 12/2015- NO PROBLEMS SINCE PER PATIENT Denies: Hx Dialysis, Hx Renal Disease, Other Problems/Disorders Musculoskeletal History: Reports: Hx Back Problems, Other Musculoskeletal History - L1 fx Denies: Hx Arthritis, Hx Osteoporosis Sensory History: Reports: Hx Cataracts - bilat cataracts Denies: Hx Contacts or Glasses, Hx Hearing Aid Opthamlomology History: Reports: Hx Cataracts - bilat cataracts Denies: Hx Contacts or Glasses Neurological History: Reports: Hx Spinal Cord Injury - L1, Hx Transient Ischemic Attacks (TIA) - 10/2017 [facility] [place] Psychiatric History: Reports: Hx Anxiety Denies: Hx Panic Disorder - Cancer History Cancer Type, Location and Year: RT BREAST CA, 2009 HAD A BILATERAL MASTECTOMY Hx Chemotherapy: No Hx Radiation Therapy: No - Surgical History Surgery Procedure, Year, and Place: RT LUMPECTOMY 02/2010, BILATERAL MASTECTOMY ,. 2006& 2007 CARDIAC STENT AT [facility] IN [place],. LEFT KNEE SURGERY X10,. BILATERAL SHOULDER SURGERY,. ESPOHOGEAL SURGERY,1996, 2014. failed breast implant on left. PARTIAL HYSTERECTOMY, 1976. APPENDIX A CHILD,. CHEST TUBE, 1996. ESOPHAGEAL DILATION. NISSIN FUNDOLPICATION multiple. total left knee replacement 2015. kidney stone surgery. left chest wound surgery 2010. Insertion Infusaport 02/2018 Hx Anesthesia Reactions: No - Immunization History Date of Tetanus Vaccine: utd Date of Influenza Vaccine: fall 2016 Infectious Disease History: Reports: Hx Clostridium Difficile Denies: Hx Hepatitis, Hx Human Immunodeficiency Virus (HIV), Hx of Known/ Suspected MRSA, Hx Shingles, Hx Tuberculosis, Hx Known/Suspected VRE, Hx Known/ Suspected VRSA, History Other Infectious Disease - Family History Known Family History: Positive: Cardiac Disease - Father, 2 brothers - [place]. Mother - AFIB, Hypertension, Diabetes - Social History Alcohol Use: None Hx Substance Use: No Substance Use Type: Reports: None Substance Use Comment - Amount & Last Used: prescribed Hx Tobacco Use: Yes Smoking Status (MU): Light Every Day Tobacco Smoker Type: Cigarettes Amount Used/How Often: LESS THAN 1/2 PACK DAILY Length of Time of Smoking/Using Tobacco: 40+ YEARS Have You Smoked in the Last Year: No Review of Systems Positive: Chest Pain Positive: Nausea All Other Systems Reviewed And Are Negative: Yes Physical Exam - Summary Physical Exam Summary: VITAL SIGNS: Reviewed. GENERAL: Patient is a well-developed and nourished FEMALE who is lying comfortable in the stretcher. Patient is not in any acute respiratory distress. HEAD AND FACE: No signs of trauma. No ecchymosis, hematomas or skull depressions. No sinus tenderness. EYES: PERRLA, EOMI x 2, No injected conjunctiva, no nystagmus. EARS: Hearing grossly intact. Ear canals and tympanic membranes are within normal limits. MOUTH: Oropharynx within normal limits. NECK: Supple, trachea is midline, no adenopathy, no JVD, no carotid bruit, no c- spine tenderness, neck with full ROM. CHEST: Symmetric, no tenderness at palpation. Reproducible chest pain, one prosthesis on the right, port-a-cath on the left LUNGS: Clear to auscultation bilaterally. No wheezing or crackles. CVS: Regular rate and rhythm, S1 and S2 present, no murmurs or gallops appreciated. ABDOMEN: Soft, non-tender. No signs of distention. No rebound, no guarding, and no masses palpated. Bowel sounds are normal. GJ tube in the lower abdomen EXTREMITIES: FROM in all major joints, no edema, no cyanosis or clubbing. NEURO: Alert and oriented x 3. No acute neurological deficits. Speech is normal and follows commands. SKIN: Dry and warm. Triage Information Reviewed: Yes Vital Signs Reviewed: Yes Diagnostics - Laboratory Result Diagrams: 07/16/19 11:30 07/16/19 11:30 Lab Statement: Any lab studies that have been ordered have been reviewed, and results considered in the medical decision making process. - Radiology Chest x-ray Radiology Interpretation Completed By: Radiologist Summary of Radiographic Findings: HYPERINFLATION, CONSISTENT WITH COPD. NO ACTIVE CARDIOPULMONARY DISEASE. ED physician has reviewed this report. - EKG 1119 Cardiac Rate: NL - 76 BPM EKG Rhythm: Sinus Rhythm Summary of EKG Findings: sinus rhythm [address] elevations Re-Evaluation - Re-Evaluation First Eval Re-Evaluation Time: 15:08 Change: Improved Comment: patient informed of lab and imaging findings. she is agreeable to discharge Chest Pain Course/Dx - Course Assessment/Plan: This patient is a 64-year-old female who presents to the emergency department via ambulance with a chief complaint of having left-sided chest pain. She reports that the pain is sharp and nonradiating. The patient reports nausea without vomiting. The patient has a history of achalasia and she usually has chest pain. Blood test results without any significant abnormality except for sodium 1:30, chloride 99, BUN is 25, magnesium 1.8. Troponin number1 is 0.01. EKG is similar to previous EKGs done in the past. Chest x-ray impression: Hyperinflation, consistent with COPD. No active cardiopulmonary disease. The chest pain is reproducible. Therefore, no suspicion for acute coronary syndrome. I will give the patient morphine for the pain. She was also given Zofran for nausea and vomiting. The heart to score is equal to 3 therefore no suspicion for an acute coronary syndrome. DEMETRIA score is equal to 2. Second troponin is 0.01. Patient was given one dose of morphine and her symptoms resolved. She was observed in the ED for approximately 2 hours after the morphine (regular home medication) and the pain did not return. Patient is pain free and nausea free. I discussed all the findings and test results with the patient. Patient was instructed to return to the emergency room immediately if any of the symptoms return or worsen. Plan of care was discussed with the patient and she understands and agrees. All questions were answered at patient satisfaction. There were no further complaints or concerns. Lung exam before discharge: CTA B/L. Good air exchange. No wheezing or crackles heard. CVS: S1 and S2 present. No murmurs appreciated. Patient is alert and oriented x 3. Patient is hemodynamically stable. Patient will be discharged home with follow up PCP in the next 2-3 days. - Chest Pain Differential Diagnosis/HQI/PQRI: Acute [place], ACS, Angina, CHF, Chest Wall, GI Disease, Lower Respiratory Infection, Pulmonary Edema - Diagnoses Provider Diagnoses: Atypical chest pain Discharge ED - Sign-Out/Discharge Documenting (check all that apply): Patient Departure - Discharge Patient Received Moderate/Deep Sedation with Procedure: No - Discharge Plan Condition: Stable Disposition: HOME Patient Education Materials: Chest Pain (ED) Referrals: Trish Combs MD [Primary Care Provider] - 3 Days Additional Instructions: Follow up with your primary care provider in 3 days. RETURN TO EMERGENCY DEPARTMENT FOR NEW OR WORSENING SYMPTOMS. - Billing Disposition and Condition Condition: STABLE Disposition: Home - Attestation Statements Document Initiated by Marielyibe: Yes Documenting Scribe: Michaela Buckner Provider For Whom Kiarra is Documenting (Include Credential): Polo Carrion MD Scribe Attestation: I, Michaela Buckner, scribed for Polo Carrion MD on 07/16/19 at 1859. Scribe Documentation Reviewed: Yes Provider Attestation: The documentation as recorded by the Michaela vyas accurately reflects the service I personally performed and the decisions made by me, Polo Carrion MD Status of Scribe Document: Viewed
[2019-07-16 12:03] LABS: ABS Lymphocytes 1.1 10^3/ul (1.0-4.8); ABS Monocytes 0.3 10^3/ul (0-0.8); ABS Neutrophils 4.7 10^3/ul (1.5-7.7); Eosinophil % 0.1 %; Hematocrit 40 % (35-47); Hemoglobin 13.5 g/dL (12.0-16.0); Lymphocyte % 17.4 %; Mean Corpuscular HGB Conc 34 g/dL (31-36); Mean Corpuscular Hemoglobin 28 pg (27-31); Mean Corpuscular Volume 82 fL (80-97); Mean Platelet Volume 7.6 fL (7.4-10.4); Nucleated Red Blood Cells % 0.1; Platelet Count 335 10^3/uL (150-450); Red Blood Count 4.82 10^6 /uL (3.70-4.87); Red Cell Distribution Width 18 % (10-15); White Blood Count 6.1 10^3/uL (3.5-10.8)
[2019-07-16 12:19] LABS: Albumin 3.9 g/dL (3.2-5.2); Albumin/Globulin Ratio 1.4 (1-3); BUN/Creatinine Ratio 30.9 (8-20); Calcium 8.7 mg/dL (8.6-10.3); EGFR African American 86.1 (>60); EGFR Non-African American 71.2 (>60); Globulin 2.8 g/dL (2-4); Magnesium 1.8 mg/dL (1.9-2.7); Potassium 4.2 mmol/L (3.5-5.0); Total Bilirubin 0.5 mg/dL (0.2-1.0); Total Protein 6.7 g/dL (6.4-8.9)
[2019-07-16 12:22] LABS: Troponin I 0.01 ng/mL (<0.04)
[2019-07-16 12:24] LABS: CKMB ng/mL 0.8 ng/mL (0.6-6.3)
[2019-07-16] MEDS ORDERED: Morphine 4 MG/ML VIAL (1 ml) 4 MG/ML VIAL IV ONE (12:29)
[2019-07-16 15:15] VITALS: BP 161/93
== END 2019-07-16 15:00 | disposition home or self-care (01) ==
LOC: ED 11:11
DX: R07.89 Other chest pain (principal); I25.119 Atherosclerotic heart disease of native coronary artery with unspecified angina pectoris; E78.00 Pure hypercholesterolemia, unspecified; I10 Essential (primary) hypertension; I25.2 Old myocardial infarction; J44.9 Chronic obstructive pulmonary disease, unspecified; K21.9 Gastro-esophageal reflux disease without esophagitis; F41.9 Anxiety disorder, unspecified; F17.210 Nicotine dependence, cigarettes, uncomplicated; Z85.3 Personal history of malignant neoplasm of breast; Z86.718 Personal history of other venous thrombosis and embolism; Z86.711 Personal history of pulmonary embolism; Z90.13 Acquired absence of bilateral breasts and nipples; Z95.5 Presence of coronary angioplasty implant and graft; Z90.711 Acquired absence of uterus with remaining cervical stump; Z96.652 Presence of left artificial knee joint; Z79.01 Long term (current) use of anticoagulants; Z79.899 Other long term (current) drug therapy; Z88.5 Allergy status to narcotic agent; Z88.0 Allergy status to penicillin; Z88.8 Allergy status to other drugs, medicaments and biological substances; Z88.6 Allergy status to analgesic agent; Z91.041 Radiographic dye allergy status; Z91.040 Latex allergy status
CPT/HCPCS: 36415; 71046; 80053; 82550; 82553; 83605; 83735; 83880; 84484; 85025; 93005; 96374; 96375; 99283; J1642; J2270; J2405

== ENCOUNTER 2019-09-08 05:21 | Observation (INO) | payer OTHER ==
[2019-09-08] MEDS ORDERED: Labetalol IV* 5 MG/ML 20 ML VIAL IV PUSH ONE (05:29)
[2019-09-08] MEDS ORDERED: amLODIPine TAB* 5 MG PO ONE ×2 (05:29→08:39)
[2019-09-08] MEDS ORDERED: Metoprolol Tartrate TAB* 25 MG PO ONE (05:29)
[2019-09-08] MEDS ORDERED: HYDROmorphone INJ* 0.5 MG/0.5 ML SYRINGE IV ONE ×2 (05:41→06:48)
--- NOTE | 2019-09-08 05:41 | ED ---
Complex/Multi-Sys Presentation - HPI Summary HPI Summary: This patient is a 64 year old F presenting to [facility] with a chief complaint of CP and ABD pain since yesterday afternoon. Pt states she took her blood pressure medications yesterday. Pt has a hx of achalasia. The patient rates the pain 9/10 in severity. Symptoms aggravated by nothing. Symptoms alleviated by nothing. Patient reports nausea. Patient denies fever, changes in vision. - History Of Current Complaint Time Seen by Provider: 09/08/19 05:28 Hx Obtained From: Patient Onset/Duration: Sudden Onset, Lasting Days - 1, Still Present Timing: Constant Severity Currently: Moderate Severity Initially: Moderate Aggravating Factor(s): nothing Alleviating Factor(s): nothing Associated Signs And Symptoms: Positive: Chest Pain, Nausea, Abdominal Pain, Other - negative - changes in vision. Negative: Fever - Allergies/Home Medications Allergies/Adverse Reactions: Allergies Allergy/AdvReac Type Severity Reaction Status Date / Time albumin colloid, human Allergy Severe Anaphylatic Verified 08/24/19 13:06 Shock bee venom protein (honey bee) Allergy Severe Anaphylatic Verified 08/24/19 13:06 Shock Iodinated Contrast Media Allergy Severe Anaphylatic Verified 08/24/19 13:06 [Iodinated Contrast- Oral Shock and IV Dye] onabotulinumtoxinA Allergy Severe Anaphylatic Verified 08/24/19 13:06 [From Botox] Shock Penicillins Allergy Severe Anaphylatic Verified 08/24/19 13:06 Shock shellfish derived Allergy Severe Anaphylatic Verified 08/24/19 13:06 Shock Adhesive Tape Allergy Mild Itching Verified 08/24/19 13:06 chlorhexidine Allergy Mild Rash And Verified 08/24/19 13:06 Itching latex Allergy Mild Hives Verified 08/24/19 13:06 NSAIDS (Non-Steroidal Allergy Mild Hives Verified 08/24/19 13:06 Anti-Inflamma povidone-iodine Allergy Mild Itching Verified 08/24/19 13:06 fentanyl Allergy Hallucinati Verified 08/24/19 13:06 ons Gadolinium-Containing Allergy Itching Verified 08/24/19 13:06 Contrast Medi ENVIRONMENTAL/SEASONAL Allergy Mild ITCHY,WATERY Uncoded 05/27/19 10:29 HAYFEVER EYES, SNEEZE, CONGESTION PMH/Surg Hx/FS Hx/Imm Hx Previously Healthy: No Endocrine/Hematology History: Reports: Hx Anticoagulant Therapy - plavix, Hx Anemia - possible Denies: Hx Diabetes, Hx Thyroid Disease Cardiovascular History: Reports: Hx Angina - has prn nitro, Hx Coronary Artery Disease - 2 stents- RCA stent 2006, LAD stent 2007, Hx Deep Vein Thrombosis, Hx Embolism, Hx Hypercholesterolemia, Hx Hypertension, Hx Myocardial Infarction, Hx Syncope, Other Cardiovascular Problems/Disorders - cardiac cath Denies: Hx Congestive Heart Failure, Hx Pacemaker/ICD, Hx Valvular Heart Disease Respiratory History: Reports: Hx Chronic Obstructive Pulmonary Disease (COPD) - Pt denies though providers have diagnosed it, Hx Pneumonia, Hx Pulmonary Embolism - and DVT 30 yrs ago, Hx Seasonal Allergies, Other Respiratory Problems /Disorders - SMOKER Denies: Hx Asthma, Hx Sleep Apnea GI History: Reports: Hx Diverticulosis, Hx Gastroesophageal Reflux Disease, Hx Hiatal Hernia - 3 surgeries, Other GI Disorders - achalasia, Fernández's esophagus , gastroparesis, J tube Denies: Hx Ulcer History: Reports: Hx Kidney Infection, Hx Kidney Stones - LAST 12/2015- NO PROBLEMS SINCE PER PATIENT Denies: Hx Dialysis, Hx Renal Disease, Other Problems/Disorders Musculoskeletal History: Reports: Hx Back Problems, Other Musculoskeletal History - L1 fx Denies: Hx Arthritis, Hx Osteoporosis Sensory History: Reports: Hx Cataracts - bilat cataracts Denies: Hx Contacts or Glasses, Hx Hearing Aid Opthamlomology History: Reports: Hx Cataracts - bilat cataracts Denies: Hx Contacts or Glasses Neurological History: Reports: Hx Spinal Cord Injury - L1, Hx Transient Ischemic Attacks (TIA) - 10/2017 [facility] Psychiatric History: Reports: Hx Anxiety Denies: Hx Panic Disorder - Cancer History Cancer Type, Location and Year: RT BREAST CA, 2009 HAD A BILATERAL MASTECTOMY Hx Chemotherapy: No Hx Radiation Therapy: No - Surgical History Surgical History: Yes Surgery Procedure, Year, and Place: RT LUMPECTOMY 02/2010, BILATERAL MASTECTOMY ,. 2006& 2007 CARDIAC STENT AT [facility] IN [place],. LEFT KNEE SURGERY X10,. BILATERAL SHOULDER SURGERY,. ESPOHOGEAL SURGERY,1996, 2015. failed breast implant on left. PARTIAL HYSTERECTOMY, 1976. APPENDIX A CHILD,. CHEST TUBE, 1996. ESOPHAGEAL DILATION. NISSIN FUNDOLPICATION multiple. total left knee replacement 2015. kidney stone surgery. left chest wound surgery 2010. Insertion Infusaport 02/2018 Hx Anesthesia Reactions: No - Immunization History Date of Tetanus Vaccine: utd Date of Influenza Vaccine: fall 2016 Infectious Disease History: No Infectious Disease History: Reports: Hx Clostridium Difficile Denies: Hx Hepatitis, Hx Human Immunodeficiency Virus (HIV), Hx of Known/ Suspected MRSA, Hx Shingles, Hx Tuberculosis, Hx Known/Suspected VRE, Hx Known/ Suspected VRSA, History Other Infectious Disease, Traveled Outside the [place] in Last 30 Days - Family History Known Family History: Positive: Cardiac Disease - Father, 2 brothers - [place]. Mother - AFIB, Hypertension, Diabetes - Social History Alcohol Use: None Hx Substance Use: No Substance Use Type: Reports: None Substance Use Comment - Amount & Last Used: prescribed Hx Tobacco Use: Yes Smoking Status (MU): Current Every Day Smoker Type: Cigarettes Amount Used/How Often: 1/2 PPD Length of Time of Smoking/Using Tobacco: 40+ YEARS Have You Smoked in the Last Year: No Review of Systems - ROS Summary Review of Systems Summary: Allergy/AdvReac Type Severity Reaction Status Date / Time albumin colloid, human Allergy Severe Anaphylatic Verified 08/24/19 13:06 Shock bee venom protein (honey bee) Allergy Severe Anaphylatic Verified 08/24/19 13:06 Shock Iodinated Contrast Media Allergy Severe Anaphylatic Verified 08/24/19 13:06 [Iodinated Contrast- Oral Shock and IV Dye] onabotulinumtoxinA Allergy Severe Anaphylatic Verified 08/24/19 13:06 [From Botox] Shock Penicillins Allergy Severe Anaphylatic Verified 08/24/19 13:06 Shock shellfish derived Allergy Severe Anaphylatic Verified 08/24/19 13:06 Shock Adhesive Tape Allergy Mild Itching Verified 08/24/19 13:06 chlorhexidine Allergy Mild Rash And Verified 08/24/19 13:06 Itching latex Allergy Mild Hives Verified 08/24/19 13:06 NSAIDS (Non-Steroidal Allergy Mild Hives Verified 08/24/19 13:06 Anti-Inflamma povidone-iodine Allergy Mild Itching Verified 08/24/19 13:06 fentanyl Allergy Hallucinati Verified 08/24/19 13:06 ons Gadolinium-Containing Allergy Itching Verified 08/24/19 13:06 Contrast Medi ENVIRONMENTAL/SEASONAL Allergy Mild ITCHY,WATERY Uncoded 05/27/19 10:29 HAYFEVER EYES, SNEEZE, CONGESTION Negative: Fever Eyes: Other - negative - changes in vision Positive: Chest Pain Positive: Abdominal Pain, Nausea All Other Systems Reviewed And Are Negative: Yes Physical Exam - Summary Physical Exam Summary: General: Well-developed, Well-nourished elderly FEMALE. Moderate discomfort. HEENT: Normocephalic, Atraumatic. Eyes: Conjuctiva normal, PERRL. Ears: TMs within normal limits. Nares: (-) discharge, (-) erythema. Oropharynx: Clear, mucous membranes moist, (-) exudates. Neck: Soft, FROM, (-) lymphadenopathy, (-) thyromegaly, (-) JVD. Cardiovascular: Normal sinus rhythm, (-) murmur. Lungs: Clear to auscultation bilaterally (-) wheezes, (-) rales, (-) rhonchi. Abdomen: Soft, non-distended, (-) organomegaly, normal bowel sounds. Diffusely tender to minimal palpation. Feeding tube site is clean and intact Back: (-) CVA tenderness Extremities: No edema. Skin: Warm, dry, (-) rash. Neuro: Alert and oriented x3, no focal deficits. Psychiatric: Mood normal, affect normal. Triage Information Reviewed: Yes Vital Signs On Initial Exam: Initial Vitals Temp Pulse Resp BP Pulse Ox 97.4 F 81 30 242/131 96 09/08/19 05:29 09/08/19 05:29 09/08/19 05:29 09/08/19 05:29 09/08/19 05:29 Vital Signs Reviewed: Yes Procedures - Sedation Patient Received Moderate/Deep Sedation with Procedure: No Diagnostics - Vital Signs Vital Signs Temp Pulse Resp BP Pulse Ox 09/08/19 05:29 97.4 F 81 30 242/131 96 - Laboratory Result Diagrams: 09/08/19 06:18 09/08/19 17:35 Lab Statement: Any lab studies that have been ordered have been reviewed, and results considered in the medical decision making process. - Radiology CXR Radiology Interpretation Completed By: ED Physician Summary of Radiographic Findings: Impression: no acute changes, no infiltrates or effusion. - EKG 0608 Cardiac Rate: NL - 70 BPM EKG Rhythm: Sinus Rhythm Summary of EKG Findings: EKG at 0608 shows 70 BPM, sinus rhythm, no STEMI Complex Multi-Symp Course/Dx Course Of Treatment: 64-year-old female with achalasia, feeding tube and severe abdominal pain. She is on by mouth Dilaudid at home which is not helping at this time. Patient's pressure is severely elevated at this time. She is given labetalol and Lopressor as well as by mouth meds. Patient given IV pain meds. Work up and recheck blood pressure is pending and patient is signed out at change of shift. - Diagnoses Provider Diagnoses: Achalasia, Chest pain Discharge ED - Sign-Out/Discharge Documenting (check all that apply): Sign-Out Patient Signing out patient TO: Sanjay Castro - This pt is a signout from Dr. Werner to Dr. Castro at 0700 09/08/[address] shift [address] Brain CT results and lowering BP - Discharge Plan Condition: Stable Disposition: ADMITTED TO [facility] - Billing Disposition and Condition Condition: STABLE Disposition: Admitted to [facility] - Attestation Statements Document Initiated by Scribe: Yes Documenting Scribe: Marvin Bai Provider For Whom Scribe is Documenting (Include Credential): Dr. Savi Werner MD Scribe Attestation: Marvin Chatterjee, scribed for Dr. Savi Werner MD on 09/11/19 at 0007. Scribe Documentation Reviewed: Yes Provider Attestation: The documentation as recorded by the Marvin vyas accurately reflects the service I personally performed and the decisions made by me, Dr. Savi Werner MD Status of Scribe Document: Viewed
[2019-09-08] MEDS ORDERED: Lorazepam PYXIS KEY PRN (05:44)
[2019-09-08] MEDS ORDERED: LORazepam INJ* 2 MG/ML 1 ML VIAL IV PUSH ONE (05:44)
[2019-09-08] MEDS ORDERED: Lorazepam PYXIS KEY ONE (05:51)
[2019-09-08] MEDS ORDERED: Ondansetron INJ* 2 MG/ML VIAL IV ONE (05:56)
--- OUTSIDE RECORDS SUMMARY | 2019-09-08 06:17 | XMS REPORT ---
:1955 Author Organization [facility] Care Team Providers Name Role Phone Unavailable Unavailable Unavailable Problems Condition Condition Condition Status Onset Resolution Last Treating Comments Name Details Category Date Date Treatment Clinician Date Pain frequent Pain Mgmt Resolve 2018-11-26 Ana pain d 07-07 16:15:00 [place] 13:30: [id number] 00 Pain severe pain Pain Mgmt Resolve 2018-11-26 Ana d 07-07 16:15:00 [place] 13:30: [id number] 00 Endo/Han anti-coagul Endo/Han Resolve 2019-02-06 Ana ation d 07-07 11:15:00 [place] therapy 13:30: [id number] 00 Integument surgical Integument Resolve 2018-08-05 Rea wound d 07-07 13:35:00 [place] present 13:30: [id number] 00 Nutrition nutritional Nutrition Resolve 2019-01-02 Ana restriction d 07-07 10:00:00 [place] s 13:30: [id number] 00 Nutrition changing Nutrition Resolve 2019-01-02 Ana weight/appe d 07-07 10:00:00 [place] tite 13:30: [id number] 00 Nutrition nutritional Nutrition Resolve 2019-01-02 Ana risk d 07-07 10:00:00 [place] 13:30: [id number] 00 Nutrition enteral Nutrition Resolve 2019-02-06 Ana therapy d 07-07 11:15:00 [place] 13:30: [id number] 00 Safety structural Safety Resolve 2019-02-06 Ana barriers d 07-07 11:15:00 [place] present 13:30: [id number] 00 Safety fall risk Safety Resolve 2019-02-06 Ana factor d 07-07 11:15:00 [place] present 13:30: [id number] 00 Safety risk for Safety Resolve 2019-02-06 Ana hospitaliza d 07-07 11:15:00 [place] tion 13:30: [id number] 00 Medication potential Meds Resolve 2019-02-06 Ana clinically d 07-07 11:15:00 [place] significant 13:30: [id number] medication 00 issue Musculoskel requires Musculoske Resolve 2019-02-06 Ana etal human letal d 07-07 11:15:00 [place] assist to 13:30: [id number] leave home 00 IV IV present IV Resolve 2019-02-06 Rea d 07-20 11:15:00 [place]iss[place] [id number] Respiratory dyspnea Respirator Resolve 2017-102019-02-06 [place] present y d 0-16 11:15:00 [place] 13:35: [id number] 00 Neuro confusion Neuro/Emot Resolve 2017-102019-02-06 [place] present ion d 0-16 11:15:00 [place] 13:35: [id number] 00 Neuro depressive Neuro/Emot Resolve 2017-102019-02-06 [place] feelings ion d 0-16 11:15:00 [place] present 13:35: [id number] 00 Safety can be left Safety Resolve 2017-102019-02-06 Mercedez alone for d 0-18 11:15:00 [place] only short 08:10: [id number] periods 00 Integument surgical Integument Resolve 2017-102018-10-30 Shila wound d 1-15 10:10:00 Brian present 08:55: [id number] 00 Elimination GI drain or Eliminatio Resolve 2017-102019-02-06 Shila tube n d 1-15 11:15:00 Brian present 08:55: [id number] 00 Neuro anxiety Neuro/Emot Resolve 2017-102019-02-06 Shila present ion d 1-15 11:15:00 Brian 08:55: [id number] 00 Medication injectable Meds Resolve 2017-102019-02-06 Shila med d 11-04 11:15:00 Brian assistance 08:55: [id number] required 00 Safety fire risk Safety Resolve 2017-102019-02-06 Shila present d 1-15 11:15:00 Brian 13:00: [id number] 00 Elimination urinary Eliminatio Resolve 2019-02-06 Mercedez incontinenc n d 11-18 11:15:00 [place] e 14:20: [id number] 00 Pain frequent Pain Mgmt Resolve 2019-02-06 Mer[place]ez pain d 2-15 11:15:00 [place] 10:15: [id number] 00 Safety risk for Safety Unknown Leanna hospitaliza 02-06 Re[place] tion 15:45: [id number] 00 Respiratory lung sounds Respirator Resolve 2019-04-03 Leanna deficit y d 02-10 10:01:00 Rege[place] 13:20: [id number] 00 Respiratory smoker Respirator Resolve 2019-04-03 Leanna y d 02-16 10:01:00 Regec[place] 12:10: [id number] 00 Respiratory dyspnea Respirator Resolve 2019-06-05 Mercedez present y d 15 10:30:00 [place] 09:00: [id number] 00 Integument surgical Integument Resolve 2019-03-27 Mercedez wound d 15 09:15:00 [place] present 09:00: [id number] 00 Nutrition enteral Nutrition Resolve 2019-03-27 Mercedez therapy d 15 09:15:00 [place] 09:00: [id number] 00 Elimination urinary Eliminatio Resolve 2019-04-10 Mercedez incontinenc n d 5-15 09:30:00 [place]gra[place] e 09:00: [id number] 00 Neuro confusion Neuro/Emot Active Mercedez present ion 5-15 In[place] 09:00: [id number] 00 Neuro anxiety Neuro/Emot Active 2018- Mercedez present ion 5-15 [place] 09:00: [id number] 00 Neuro depressive Neuro/Emot Active 2018- Mer[place]ez feelings ion 5-15 In[place] present 09:00: [id number] 00 Neuro impaired Neuro/Emot Active Mer[place]ez decision-ma ion 5-15 Ingrahm sonali 09:00: [id number] 00 Activity self-care Activity Resolve 2019-05-20 [place] deficit d 5-15 11:15:00 [place] 09:00: [id number] 00 Safety fall risk Safety Resolve 2019-07-17 Mer[place]ez factor d 5-15 10:35:00 [place] present 09:00: [id number] 00 Safety risk for Safety Resolve 2019-07-17 Mercedez hospitaliza d 5-15 10:35:00 [place] tion 09:00: [id number] 00 Medication potential Meds Resolve 2019-03-27 Mercedez clinically d 515 09:15:00 [place] significant 09:00: [id number] medication 00 issue Integument surgical Integument Resolve 2019-05-20 [place] wound d 7-12 11:15:00 [place] present 10:00: [id number] 00 Nutrition enteral Nutrition Resolve 2019-06-26 Mercedez therapy d 05-01 10:35:00 [place] 10:00: [id number] 00 Respiratory dyspnea Respirator Resolve 2019-08-07 Leanna present y d 06-26 10:25:00 Rege[place] 10:35: [id number] 00 Respiratory smoker Respirator Resolve 2019-07-01 Leanna y d 06-26 10:15:00 Rege[place] 10:35: [id number] 00 Endo/Han anti-coagul Endo/Han Resolve 2019-07-23 Leanna ation d 06-26 10:15:00 Regeczi therapy 10:35: [id number] 00 Elimination urinary Eliminatio Resolve 2019-07-23 Leanna incontinenc n d 06-26 10:15:00 Regeczi e 10:35: [id number] 00 Elimination nausea/vomi Eliminatio Resolve 2019-07-01 Leanna ting n d 06-26 10:15:00 Rege[place] 10:35: [id number] 00 Integument surgical Integument Resolve 2019-07-23 Mer[place] wound d 9-11 10:15:00 [place] present 10:15: [id number] 00 Nutrition enteral Nutrition Resolve 2019-07-23 Mer[place] therapy d 9-11 10:15:00 [place] 10:15: [id number] 00 Respiratory smoker Respirator Resolve 2019-07-16 Leanna y d 07-16 10:05:00 [place] 10:05: [id number] 00 Elimination diarrhea Eliminatio Resolve 2019-07-23 Leanna n d 9 10:15:00 [place] 10:35: [id number] 00 Cardio hypertensio Cardiovasc Resolve 2018-102019-07-30 Leanna n ular d 0-03 10:00:00 [place] 10:15: [id number] 00 Safety risk for Safety Resolve 2018-102019-07-23 Leanna hospitaliza d 0-03 10:15:00 Regeczi tion 10:15: [id number] 00 24 Hr Diet knowledge/s NT: 24Hr Resolve 2018-102019-07-23 Wen kill Diet d 0-03 15:00:00 [place] deficit - 15:00: [id number] pt 00 Nutritional eating NT: Resolve 2018-102019-07-23 Wen Barrier difficultie Barriers d 0-03 15:00:00 [place] s present 15:00: [id number] Safety risk for Safety Resolve 2018-102019-08-07 Roseline hospitaliza d 0-04 10:25:00 [place] tion 14:00: [id number] 00 Social financial MURIEL: Active 2018-10 [facility] Services resource Social 0-04 [place] deficit Services 14:00: [id number] 00 Social support MURIEL: Active 2018-10 [facility] deficit Social 0-04 [place] Services 14:00: [id number] 00 Social knowledge/s MURIEL: Active 2018-10 [facility] kill Social 0-04 [place] deficit - Services 14:00: [id number] pt 00 Social financial MURIEL: Unknown 2018-10 [place] Services resource Social 0-10 [place] deficit Services 15:00: [id number] 00 Social knowledge/s MURIEL: Unknown 2018-10 [place] Services kill Social 0-10 [place] deficit - Services 15:00: [id number] pt 00 Respiratory lung sounds Respirator Resolve 2018-102019-08-07 Leanna deficit y d 0-18 10:25:00 Rege[place] 10:25: [id number] 00 Respiratory dyspnea Respirator Active 2018-10 Mercedez present y 10-28 [place] 11:00: [id number] 00 Integument surgical Integument Active 2018-10 Mer[place]ez wound 10-28 Ingrm present 11:00: [id number] 00 Nutrition enteral Nutrition Active 2018-10 Mer[place] therapy 10-28 Ingrm 11:00: [id number] 00 Elimination urinary Eliminatio Active 2018-10 Mer[place] incontinenc n 10-28 Ingrm e 11:00: [id number] 00 Safety fall risk Safety Active 2018-10 Mercedez factor 10-28 Ingrm present 11:00: [id number] 00 Safety risk for Safety Active 2018-10 Mercedez hospitaliza 10-28 Ingrm tion 11:00: [id number] 00 Allergies, Adverse Reactions, Alerts Allergy Allergy Status Severity Reaction(s) Onset Inactive Treating Comments Name Type Date Date Clinician latex Base Active Unknown Hives [place]ez Ingredient 07-07 [facility] [id number] amoxicillin Base Active Unknown Anaphylaxis [place] Ingredient 07-07 [facility] [id number] bee venom Base Active Unknown Anaphylaxis [place] protein Ingredient 07-07 [facility] (honey bee) [id number] Botox Medication Active Unknown Anaphylaxis Mercedez Name ID 07-07 [facility] [id number] contrast Unknown Active Unknown Anaphylaxis Mercedez dye 07-07 [facility] [id number] Penicillins Allergen Active Unknown Anaphylaxis Mercedez Group 07-07 [facility] [id number] shellfish Base Active Unknown Anaphylaxis [place] derived Ingredient 07-07 [facility] [id number] adhesive Base Active Unknown Hives Mer[place] tape Ingredient 07-07 [facility] [id number] nsaids Unknown Active Unknown stomach issues Mercedez 07-07 [facility] [id number] oxycodone Base Active Unknown swelling Mercedez Ingredient 07-07 [facility] [id number] Betadine Medication Active Unknown Rash Mercedez Name ID 07-07 [facility] [id number] Hibiclens Medication Active Unknown Rash Mercedez Name ID 07-07 [facility] [id number] evironmenta Unknown Active Unknown hay fever, Rea l/seasonal watery eye, 07-07 Guidelli itching, [id number] sneeze, congestion povidone-io Base Active Unknown itching Rea dine Ingredient 07-07 Guidelli [id number] Iodine and Allergen Active Unknown Anaphylaxis Rea Iodide Group 07-07 Guidelli Containing [id number] Products albumin Base Active Unknown Anaphylaxis Rea colloid, Ingredient 07-07 Guidelli human [id number] fentanyl Base Active Unknown hallucinations Rea Ingredient 07-07 Guidelli [id number] Medications Ordered Filled Start Stop Current Ordering Indication Dosage Frequency Signature Comments Components Medication Medication Date Date Medication? Clinician (SIG) Name Name Jevity 1.5 Jevity 1.5 2018- No Blegen Unknown Unknown Pineda 0.06 Pineda 0.06 07-07 Tashia FINCH gram-1.5 gram-1.5 e kcal/mL kcal/mL oral liquid oral liquid cyanocobala cyanocobala 2017- No [place] Unknown Unknown min (vit min (vit 07-07 Tashia FINCH B-12) 1,000 B-12) 1,000 e mcg/mL mcg/mL injection injection solution solution Nitrostat Nitrostat No Ble[place] Unknown Unknown 0.4 mg 0.4 mg 07-07 Tashia FINCH sublingual sublingual e tablet tablet EpiPen EpiPen No Blegen Unknown Unknown 2-Godwin 0.3 2-Godwin 0.3 07-07 Tashia FINCH mg/0.3 mL mg/0.3 mL e injection, injection, auto-inject auto-inject or or albuterol albuterol 2018- No Ble[place] Unknown Unknown sulfate HFA sulfate HFA 07-07 10- Tashia FINCH 90 90 e mcg/actuati mcg/actuati on aerosol on aerosol inhaler inhaler metoprolol metoprolol 2018- No Blegen Unknown Unknown tartrate 50 tartrate 50 07-07 05-15 Tashia FINCH mg tablet mg tablet e carisoprodo carisoprodo 2018- No Ble[place] Unknown Unknown l 350 mg l 350 mg 07-07 04-19 Tashia FINCH tablet tablet e 0.9% normal 0.9% normal No Blegen Unknown Unknown saline saline 07-20 Tashia FINCH 1000ml with 1000ml with e 20meq of 20meq of KCL IV to KCL IV to infuse over infuse over 4 hours 1x 4 hours 1x a week via a week via gravity gravity 250cc/hr 250cc/hr morphine ER morphine ER 2017- No Ble[place] Unknown Unknown 30 mg 30 mg 07-07 Tashia FINCH tablet,exte tablet,exte e nded nded release release amLODIPine amLODIPine 2018- No [place] Unknown Unknown 10 mg 10 mg 07-07 Tashia FINCH tablet tablet e clopidogrel clopidogrel 2018- No Blegen Unknown Unknown 75 mg 75 mg 07-07 Tashia FINCH tablet tablet e morphine morphine 2017- No Blegen Unknown Unknown concentrate concentrate 07-07 Tashia FINCH 100 mg/5 mL 100 mg/5 mL e (20 mg/mL) (20 mg/mL) oral oral solution solution diphenhydrA diphenhydrA 2018- No Blegen Unknown Unknown MINE 50 mg MINE 50 mg 07-07 Tashia FINCH capsule capsule e famotidine famotidine 2017- No Blegen Unknown Unknown 40 mg/5 mL 40 mg/5 mL 07-07 Tashia FINCH (8 mg/mL) (8 mg/mL) e oral oral suspension suspension magnesium magnesium 2017- No Blegen Unknown Unknown 64 mg 64 mg 07-07 Tashia FINCH (magnesium (magnesium e chloride) chloride) tablet,linda tablet,linda yed release yed release ondansetron ondansetron 2018- No [place] Unknown Unknown 4 mg 4 mg 07-07 Tashia FINCH disintegrat disintegrat e ing tablet ing tablet pantoprazol pantoprazol 2017- No Blegen Unknown Unknown e 40 mg e 40 mg 07-07 Tashia FINCH tablet,linda tablet,linda e yed release yed release Carafate Carafate 2017- No Blegen Unknown Unknown 100 mg/mL 100 mg/mL 07-07 Tashia FINCH oral oral e suspension suspension morphine ER morphine ER 2017- No Blegen Unknown Unknown 30 mg 30 mg 07-07 Tashia FINCH tablet,exte tablet,exte e nded nded release release morphine morphine 2018- No Blegen Unknown Unknown concentrate concentrate 07-07 Tashia FINCH 100 mg/5 mL 100 mg/5 mL e (20 mg/mL) (20 mg/mL) oral oral solution solution magnesium magnesium 2017- No Blegen Unknown Unknown 64 mg 64 mg 07-07 Tashia FINCH (magnesium (magnesium e chloride) chloride) tablet,linda tablet,linda yed release yed release pantoprazol pantoprazol 2018- No Blegen Unknown Unknown e 40 mg e 40 mg 07-07 Tashia FINCH tablet,linda tablet,linda e yed release yed release morphine ER morphine ER 2017-10- No Blegen Unknown Unknown 30 mg 30 mg 10-26 Tashia FINCH tablet,exte tablet,exte e nded nded release release simvastatin simvastatin 2018- No Ble[place] Unknown Unknown 40 mg 40 mg 07-07 Tashia FINCH tablet tablet e losartan 50 losartan 50 2018- No [place] Unknown Unknown mg tablet mg tablet 07-07 Tashia FINCH e Normal Normal No Blegen Unknown Unknown Saline Saline 07-20 Tashia FINCH Flush 0.9 % Flush 0.9 % e injection injection syringe syringe heparin heparin No Ble[place] Unknown Unknown Lock Flush Lock Flush 07-20 Tashia FINCH (Porcine) (Porcine) e (PF) 100 (PF) 100 unit/mL unit/mL intravenous intravenous syringe syringe metoprolol metoprolol 2017-10- No [place] Unknown Unknown tartrate 25 tartrate 25 10-18 Tashia FINCH mg tablet mg tablet e Artificial Artificial No Blegen Unknown Unknown Tears Tears 11-18 Tashia FINCH (polyvinyl (polyvinyl e alcohol) alcohol) 1.4 % eye 1.4 % eye drops drops atorvastati atorvastati No Blegen Unknown Unknown n 40 mg n 40 mg 11-18 Tashia FINCH tablet tablet e morphine 10 morphine 10 2018- No Blegen Unknown Unknown mg/5 mL mg/5 mL 11-18 Tashia FINCH oral oral e solution solution HYDROmorpho HYDROmorpho 2018- No [place] Unknown Unknown ne 4 mg ne 4 mg 12-23- ,[place] tablet tablet levoFLOXaci levoFLOXaci 2018- No Ble[place] Unknown Unknown n 500 mg n 500 mg 01-13- Tashia FINCH tablet tablet e cyanocobala cyanocobala No Blegen Unknown Unknown min (vit min (vit 9-17 ,Tashia B-12) 1,000 B-12) 1,000 e mcg/mL mcg/mL injection injection solution solution carisoprodo carisoprodo No Blegen Unknown Unknown l 350 mg l 350 mg 10-26 ,Tashia tablet tablet e metoprolol metoprolol 2018- No [place] Unknown Unknown tartrate 50 tartrate 50 10-26 Tashia FINCH mg tablet mg tablet e amLODIPine amLODIPine No Blegen Unknown Unknown 10 mg 10 mg 10-26 Tashia FINCH tablet tablet e clopidogrel clopidogrel No Blegen Unknown Unknown 75 mg 75 mg 10-26 Tashia FINCH tablet tablet e diphenhydrA diphenhydrA 2018- No [place] Unknown Unknown MINE 50 mg MINE 50 mg 10-26 Tashai FINCH capsule capsule e pantoprazol pantoprazol 2018- No [place] Unknown Unknown e 40 mg e 40 mg 10-26 05-15 Tashia FINCH tablet,linda tablet,linda e yed release yed release morphine ER morphine ER 2018- No Blegen Unknown Unknown 30 mg 30 mg 10-26 04-24 Tashia FINCH tablet,exte tablet,exte e nded nded release release HYDROmorpho HYDROmorpho No [place] Unknown Unknown ne 4 mg ne 4 mg 12-23 ,[place] tablet tablet diphenhydrA diphenhydrA 2018- No [place] Unknown Unknown MINE 50 mg MINE 50 mg 10-26 Tashia FINCH capsule capsule e ondansetron ondansetron 2018- No [place] Unknown Unknown 4 mg 4 mg 02-06- Tashia FINCH disintegrat disintegrat e ing tablet ing tablet metoprolol metoprolol 2018- No Ble[place] Unknown Unknown tartrate 50 tartrate 50 04-23 05-15 Tashia FINCH mg tablet mg tablet e isosorbide isosorbide No Blegen Unknown Unknown mononitrate mononitrate 4-27 ,Tashia ER 30 mg ER 30 mg e tablet,exte tablet,exte nded nded release 24 release 24 hr hr ondansetron ondansetron No Blegen Unknown Unknown 4 mg 4 mg 4-29 Tashia FINCH disintegrat disintegrat e ing tablet ing tablet losartan losartan No Blegen Unknown Unknown 100 mg 100 mg 4-29 Tashia FINCH tablet tablet e morphine ER morphine ER No [place] Unknown Unknown 60 mg 60 mg 4-24 ,[place] tablet,exte tablet,exte nded nded release release magnesium magnesium No Blegen Unknown Unknown 64 mg 64 mg 4-30 Tashia FINCH (magnesium (magnesium e chloride) chloride) tablet,linda tablet,linda yed release yed release pantoprazol pantoprazol No Blegen Unknown Unknown e 40 mg e 40 mg 5-15 Tashia FINCH tablet,linda tablet,linda e yed release yed release metoprolol metoprolol No Blegen Unknown Unknown tartrate 25 tartrate 25 5-15 Tashia FINCH mg tablet mg tablet e folic acid folic acid No Blegen Unknown Unknown 1 mg tablet 1 mg tablet 5-15 Tashia FINCH Creon Creon No Blegen Unknown Unknown 12,000-38,0 12,000-38,0 5-15 Tashia FINCH 00-60,000 00-60,000 e unit unit capsule,del capsule,del ayed ayed release release thiamine thiamine No Blegen Unknown Unknown HCl HCl 5-15 Tashia FINCH (vitamin (vitamin e B1) 100 mg B1) 100 mg tablet tablet eszopiclone eszopiclone 2018- No [place] Unknown Unknown 1 mg tablet 1 mg tablet 03-26 06-11 Tashia FINCH mupirocin 2 mupirocin 2 2018- No [place] Unknown Unknown % topical % topical 03-26-20 Tashia FINCH cream cream e LORazepam LORazepam No [place] Unknown Unknown 0.5 mg 0.5 mg 6-11 MDTashia tablet tablet e albuterol albuterol 2018-10- Yes [place] Unknown Unknown sulfate HFA sulfate HFA 0-03 10-03 Tashia FINCH 90 90 e mcg/actuati mcg/actuati on aerosol on aerosol inhaler inhaler albuterol albuterol 2018-10 Yes Blegen Unknown Unknown sulfate HFA sulfate HFA 0-03 Tashia FINCH 90 90 e mcg/actuati mcg/actuati on aerosol on aerosol inhaler inhaler mupirocin 2 mupirocin 2 2018-10 Yes Blegen Unknown Unknown % topical % topical 0-03 Tashia FINCH cream cream e metoprolol metoprolol 2018-10 Yes Blegen Unknown Unknown tartrate 25 tartrate 25 0-03 MD,Tashia mg tablet mg tablet e Spiriva Spiriva 2018-10- Yes Blegen Unknown Unknown Respimat Respimat 0-07 10-21 Tashia FINCH 2.5 2.5 e mcg/actuati mcg/actuati on solution on solution for for inhalation inhalation spironolact spironolact 2018-10 Yes Ble[place] Unknown Unknown one 25 mg one 25 mg 0-21 ,Tashia tablet tablet e ipratropium ipratropium 2018-10 Yes Blegen Unknown Unknown bromide 17 bromide 17 0-21 ,Tashia mcg/actuati mcg/actuati e on HFA on HFA aerosol aerosol inhaler inhaler ipratropium ipratropium 2018-10 Yes Blegen Unknown Unknown bromide 17 bromide 17 0-21 MD,Tashia mcg/actuati mcg/actuati e on HFA on HFA aerosol aerosol inhaler inhaler Vital Signs Vital Name Observation Time Observation Value Comments SYSTOLIC mm[Hg] 2018-11-27 18:04:11 142 mm[Hg] mm[Hg] Method: Stand SYSTOLIC mm[Hg] 2019-06-27 18:07:43 122 mm[Hg] mm[Hg] Method: Lie DIASTOLIC mm[Hg] 2018-11-27 18:04:11 84 mm[Hg] mm[Hg] Method: Stand DIASTOLIC mm[Hg] 2019-06-27 18:07:43 50 mm[Hg] mm[Hg] Method: Lie Procedures This patient has no known procedures. Results This patient has no known results.
--- OUTSIDE RECORDS SUMMARY | 2019-09-08 06:17 | XMS REPORT ---
:1955 Author Organization [facility] Care Team Providers Name Role Phone Unavailable Unavailable Unavailable Problems Condition Condition Condition Status Onset Resolution Last Treating Comments Name Details Category Date Date Treatment Clinician Date Pain frequent Pain Mgmt Resolve 2018-11-26 Ana pain d 07-07 16:15:00 [place] 13:30: [id number] 00 Pain severe pain Pain Mgmt Resolve 2018-11-26 Ana d 07-07 16:15:00 [place] 13:30: [id number] 00 Endo/Han anti-coagul Endo/Han Resolve 2019-02-06 Ana ation d 07-07 11:15:00 [place] therapy 13:30: [id number] 00 Integument surgical Integument Resolve 2018-08-05 Rea wound d 07-07 13:35:00 [place] present 13:30: [id number] 00 Nutrition nutritional Nutrition Resolve 2019-01-02 Ana restriction d 07-07 10:00:00 [place] s 13:30: [id number] 00 Nutrition changing Nutrition Resolve 2019-01-02 Ana weight/appe d 07-07 10:00:00 [place] tite 13:30: [id number] 00 Nutrition nutritional Nutrition Resolve 2019-01-02 Ana risk d 07-07 10:00:00 [place] 13:30: [id number] 00 Nutrition enteral Nutrition Resolve 2019-02-06 Ana therapy d 07-07 11:15:00 [place] 13:30: [id number] 00 Safety structural Safety Resolve 2019-02-06 Ana barriers d 07-07 11:15:00 [place] present 13:30: [id number] 00 Safety fall risk Safety Resolve 2019-02-06 Ana factor d 07-07 11:15:00 [place] present 13:30: [id number] 00 Safety risk for Safety Resolve 2019-02-06 Ana hospitaliza d 07-07 11:15:00 [place] tion 13:30: [id number] 00 Medication potential Meds Resolve 2019-02-06 Ana clinically d 07-07 11:15:00 [place] significant 13:30: [id number] medication 00 issue Musculoskel requires Musculoske Resolve 2019-02-06 Ana etal human letal d 07-07 11:15:00 [place] assist to 13:30: [id number] leave home 00 IV IV present IV Resolve 2019-02-06 Rea d 07-20 11:15:00 [place] [id number] Respiratory dyspnea Respirator Resolve 2017-102019-02-06 [place] present y d 0-16 11:15:00 [place] 13:35: [id number] 00 Neuro confusion Neuro/Emot Resolve 2017-102019-02-06 [place] present ion d 0-16 11:15:00 [place] 13:35: [id number] 00 Neuro depressive Neuro/Emot Resolve 2017-102019-02-06 [place] feelings ion d 0-16 11:15:00 [place] present 13:35: [id number] 00 Safety can be left Safety Resolve 2017-102019-02-06 [place] alone for d 0-18 11:15:00 [place] only short 08:10: [id number] periods 00 Integument surgical Integument Resolve 2017-102018-10-30 Shila wound d 1-15 10:10:00 Brian present 08:55: [id number] 00 Elimination GI drain or Eliminatio Resolve 2017-102019-02-06 Shila tube n d 1-15 11:15:00 Brian present 08:55: [id number] 00 Neuro anxiety Neuro/Emot Resolve 2017-102019-02-06 Shila present ion d 1-15 11:15:00 Brian 08:55: [id number] 00 Medication injectable Meds Resolve 2017-102019-02-06 Shila med d 11-04 11:15:00 Brian assistance 08:55: [id number] required 00 Safety fire risk Safety Resolve 2017-102019-02-06 Shila present d 1-15 11:15:00 Brian 13:00: [id number] 00 Elimination urinary Eliminatio Resolve 2019-02-06 [place] incontinenc n d 11-18 11:15:00 [place] e 14:20: [id number] 00 Pain frequent Pain Mgmt Resolve 2019-02-06 [place] pain d 2-15 11:15:00 [place] 10:15: [id number] 00 Safety risk for Safety Unknown Leanna hospitaliza 02-06 [place] tion 15:45: [id number] 00 Respiratory lung sounds Respirator Resolve 2019-04-03 Leanna deficit y d 02-10 10:01:00 Re[place]zi 13:20: [id number] 00 Respiratory smoker Respirator Resolve 2019-04-03 Leanna y d 02-16 10:01:00 Regeczi 12:10: [id number] 00 Respiratory dyspnea Respirator Resolve 2019-06-05 [place] present y d 15 10:30:00 [place] 09:00: [id number] 00 Integument surgical Integument Resolve 2019-03-27 [place] wound d 15 09:15:00 [place] present 09:00: [id number] 00 Nutrition enteral Nutrition Resolve 2019-03-27 [place] therapy d 15 09:15:00 [place] 09:00: [id number] 00 Elimination urinary Eliminatio Resolve 2019-04-10 [facility] incontinenc n d 5-15 09:30:00 [place] e 09:00: [id number] 00 Neuro confusion Neuro/Emot Active [facility] present ion 5-15 [place] 09:00: [id number] 00 Neuro anxiety Neuro/Emot Active 2018- [place] present ion 5-15 [place] 09:00: [id number] 00 Neuro depressive Neuro/Emot Active 2018- [place] feelings ion 5-15 [place] present 09:00: [id number] 00 Neuro impaired Neuro/Emot Active [facility] decision-ma ion 5-15 [place] sonali 09:00: [id number] 00 Activity self-care Activity Resolve 2019-05-20 [place] deficit d 5-15 11:15:00 [place] 09:00: [id number] 00 Safety fall risk Safety Resolve 2019-07-17 [place] factor d 5-15 10:35:00 [place] present 09:00: [id number] 00 Safety risk for Safety Resolve 2019-07-17 [facility] hospitaliza d 5-15 10:35:00 [place] tion 09:00: [id number] 00 Medication potential Meds Resolve 2019-03-27 [place] clinically d 515 09:15:00 [place] significant 09:00: [id number] medication 00 issue Integument surgical Integument Resolve 2019-05-20 [place] wound d 7-12 11:15:00 [place] present 10:00: [id number] 00 Nutrition enteral Nutrition Resolve 2019-06-26 [place] therapy d 05-01 10:35:00 [place] 10:00: [id number] 00 Respiratory dyspnea Respirator Resolve 2019-08-07 Leanna present y d 06-26 10:25:00 Rege[place] 10:35: [id number] 00 Respiratory smoker Respirator Resolve 2019-07-01 Leanna y d 06-26 10:15:00 [place] 10:35: [id number] 00 Endo/Han anti-coagul Endo/Han Resolve 2019-07-23 Leanna ation d 06-26 10:15:00 [place] therapy 10:35: [id number] 00 Elimination urinary Eliminatio Resolve 2019-07-23 Leanna incontinenc n d 06-26 10:15:00 Rege[place]zi e 10:35: [id number] 00 Elimination nausea/vomi Eliminatio Resolve 2019-07-01 Leanna ting n d 06-26 10:15:00 [place] 10:35: [id number] 00 Integument surgical Integument Resolve 2019-07-23 [place] wound d 9-11 10:15:00 [place] present 10:15: [id number] 00 Nutrition enteral Nutrition Resolve 2019-07-23 [place] therapy d 9-11 10:15:00 [place] 10:15: [id number] 00 Respiratory smoker Respirator Resolve 2019-07-16 Leanna y d 07-16 10:05:00 [place] 10:05: [id number] 00 Elimination diarrhea Eliminatio Resolve 2019-07-23 Leanna n d 9 10:15:00 [place] 10:35: [id number] 00 Cardio hypertensio Cardiovasc Resolve 2018-102019-07-30 Leanna n ular d 0-03 10:00:00 [place] 10:15: [id number] 00 Safety risk for Safety Resolve 2018-102019-07-23 Leanna hospitaliza d 0-03 10:15:00 [place] tion 10:15: [id number] 00 24 Hr Diet knowledge/s NT: 24Hr Resolve 2018-102019-07-23 Wen kill Diet d 0-03 15:00:00 [place] deficit - 15:00: [id number] pt 00 Nutritional eating NT: Resolve 2018-102019-07-23 [place] Barrier difficultie Barriers d 0-03 15:00:00 [place] [facility] present 15:00: [id number] 00 Safety risk for Safety Resolve 2018-102019-08-07 [place] hospitaliza d 0-04 10:25:00 [place] tion 14:00: [id number] 00 Social financial MURIEL: Active 2018-10 [facility] resource Social 0-04 [place] deficit Services 14:00: [id number] 00 Social support MURIEL: Active 2018-10 [facility] deficit Social 0-04 [place] [facility] 14:00: [id number] 00 Social knowledge/s MURIEL: Active 2018-10 [facility] kill Social 0-04 [place] deficit - Services 14:00: [id number] pt 00 Social financial MURIEL: Unknown 2018-10 [facility] resource Social 0-10 [place] deficit Services 15:00: [id number] 00 Social knowledge/s MURIEL: Unknown 2018-10 [place] Services kill Social 0-10 [place] deficit - Services 15:00: [id number] pt 00 Respiratory lung sounds Respirator Resolve 2018-102019-08-07 Leanna deficit y d 0-18 10:25:00 [place] 10:25: [id number] 00 Respiratory dyspnea Respirator Active 2018-10 [place] present y 10-28 [place] 11:00: [id number] 00 Integument surgical Integument Active 2018-10 [place] wound 10-28 Ingrm present 11:00: [id number] 00 Nutrition enteral Nutrition Active 2018-10 [place] therapy 10-28 Ingrm 11:00: [id number] 00 Elimination urinary Eliminatio Active 2018-10 [place] incontinenc n 10-28 Ingrm e 11:00: [id number] 00 Safety fall risk Safety Active 2018-10 Mer[place]ez factor 10-28 Ingrm present 11:00: [id number] 00 Safety risk for Safety Active 2018-10 [facility] hospitaliza 10-28 Ingrm tion 11:00: [id number] 00 Allergies, Adverse Reactions, Alerts Allergy Allergy Status Severity Reaction(s) Onset Inactive Treating Comments Name Type Date Date Clinician latex Base Active Unknown Hives [facility] Ingredient 07-07 [facility] [id number] amoxicillin Base Active Unknown Anaphylaxis Mer[facility]ez Ingredient 07-07 [facility] [id number] bee venom Base Active Unknown Anaphylaxis [facility] protein Ingredient 07-07 [facility] (honey bee) [id number] Botox Medication Active Unknown Anaphylaxis Mercedez Name ID 07-07 [facility] [id number] contrast Unknown Active Unknown Anaphylaxis Mercedez dye 07-07 [facility] [id number] Penicillins Allergen Active Unknown Anaphylaxis Mer[facility]ez Group 07-07 [facility] [id number] shellfish Base Active Unknown Anaphylaxis Mer[facility]ez derived Ingredient 07-07 [facility] [id number] adhesive Base Active Unknown Hives Mer[facility]ez tape Ingredient 07-07 [facility] [id number] nsaids Unknown Active Unknown stomach issues Mercedez 07-07 [facility] [id number] oxycodone Base Active Unknown swelling Mercedez Ingredient 07-07 [facility] [id number] Betadine Medication Active Unknown Rash Mercedez Name ID 07-07 [facility] [id number] Hibiclens Medication Active Unknown Rash Mercedez Name ID 07-07 [facility] [id number] evironmenta Unknown Active Unknown hay fever, Rea l/seasonal watery eye, 07-07 [facility] itching, [id number] sneeze, congestion povidone-io Base Active Unknown itching Rea dine Ingredient 07-07 [facility] [id number] Iodine and Allergen Active Unknown Anaphylaxis Rea Iodide Group 07-07 [place] Containing [id number] Products albumin Base Active Unknown Anaphylaxis Rea colloid, Ingredient 07-07 [facility] human [id number] fentanyl Base Active Unknown hallucinations Rea Ingredient 07-07 [facility] [id number] Medications Ordered Filled Start Stop Current Ordering [...] mg 10-26 Tashia FINCH capsule capsule e pantoprazol pantoprazol 2018- [...]
--- OUTSIDE RECORDS SUMMARY | 2019-09-08 06:17 | XMS REPORT ---
:1955 Author Organization [facility] Care Team Providers Name Role Phone Unavailable Unavailable Unavailable Problems Condition Condition Condition Status Onset Resolution Last Treating Comments Name Details Category Date Date Treatment Clinician Date Pain frequent Pain Mgmt Resolve 2018-11-26 Ana pain d 07-07 16:15:00 [place] 13:30: [id number] 00 Pain severe pain Pain Mgmt Resolve 2018-11-26 Ana d 07-07 16:15:00 [place] 13:30: [id number] 00 Endo/Han anti-coagul Endo/Han Resolve 2019-02-06 Ana ation d 07-07 11:15:00 [place] therapy 13:30: [id number] 00 Integument surgical Integument Resolve 2018-08-05 Rea wound d 07-07 13:35:00 [place] present 13:30: [id number] 00 Nutrition nutritional Nutrition Resolve 2019-01-02 Ana restriction d 07-07 10:00:00 [place] s 13:30: [id number] 00 Nutrition changing Nutrition Resolve 2019-01-02 Ana weight/appe d 07-07 10:00:00 [place] tite 13:30: [id number] 00 Nutrition nutritional Nutrition Resolve 2019-01-02 Ana risk d 07-07 10:00:00 [place] 13:30: [id number] 00 Nutrition enteral Nutrition Resolve 2019-02-06 Ana therapy d 07-07 11:15:00 [place] 13:30: [id number] 00 Safety structural Safety Resolve 2019-02-06 Ana barriers d 07-07 11:15:00 [place] present 13:30: [id number] 00 Safety fall risk Safety Resolve 2019-02-06 Ana factor d 07-07 11:15:00 [place] present 13:30: [id number] 00 Safety risk for Safety Resolve 2019-02-06 Ana hospitaliza d 07-07 11:15:00 [place] tion 13:30: [id number] 00 Medication potential Meds Resolve 2019-02-06 Ana clinically d 07-07 11:15:00 [place] significant 13:30: [id number] medication 00 issue Musculoskel requires Musculoske Resolve 2019-02-06 Ana etal human letal d 07-07 11:15:00 [place] assist to 13:30: [id number] leave home 00 IV IV present IV Resolve 2019-02-06 Rea d 07-20 11:15:00 [place] [id number] Respiratory dyspnea Respirator Resolve 2017-102019-02-06 [place] present y d 0-16 11:15:00 [place] 13:35: [id number] 00 Neuro confusion Neuro/Emot Resolve 2017-102019-02-06 [place] present ion d 0-16 11:15:00 [place] 13:35: [id number] 00 Neuro depressive Neuro/Emot Resolve 2017-102019-02-06 [place] feelings ion d 0-16 11:15:00 [place] present 13:35: [id number] 00 Safety can be left Safety Resolve 2017-102019-02-06 [place] alone for d 0-18 11:15:00 [place] only short 08:10: [id number] periods 00 Integument surgical Integument Resolve 2017-102018-10-30 Shila wound d 1-15 10:10:00 Brian present 08:55: [id number] 00 Elimination GI drain or Eliminatio Resolve 2017-102019-02-06 Shila tube n d 1-15 11:15:00 Brian present 08:55: [id number] 00 Neuro anxiety Neuro/Emot Resolve 2017-102019-02-06 Shila present ion d 1-15 11:15:00 Brian 08:55: [id number] 00 Medication injectable Meds Resolve 2017-102019-02-06 Shila med d 11-04 11:15:00 Brian assistance 08:55: [id number] required 00 Safety fire risk Safety Resolve 2017-102019-02-06 Shila present d 1-15 11:15:00 Brian 13:00: [id number] 00 Elimination urinary Eliminatio Resolve 2019-02-06 [place] incontinenc n d 11-18 11:15:00 [place] e 14:20: [id number] 00 Pain frequent Pain Mgmt Resolve 2019-02-06 [place] pain d 2-15 11:15:00 [place] 10:15: [id number] 00 Safety risk for Safety Unknown Leanna hospitaliza 02-06 [place] tion 15:45: [id number] 00 Respiratory lung sounds Respirator Resolve 2019-04-03 Leanna deficit y d 02-10 10:01:00 [place] 13:20: [id number] 00 Respiratory smoker Respirator Resolve 2019-04-03 Leanna y d 02-16 10:01:00 [place] 12:10: [id number] 00 Respiratory dyspnea Respirator Resolve 2019-06-05 [place] present y d 15 10:30:00 [place] 09:00: [id number] 00 Integument surgical Integument Resolve 2019-03-27 [place] wound d 15 09:15:00 [place] present 09:00: [id number] 00 Nutrition enteral Nutrition Resolve 2019-03-27 [place] therapy d 15 09:15:00 [place] 09:00: [id number] 00 Elimination urinary Eliminatio Resolve 2019-04-10 [place] incontinenc n d 5-15 09:30:00 [place] e 09:00: [id number] 00 Neuro confusion Neuro/Emot Active [place] present ion 5-15 [place] 09:00: [id number] 00 Neuro anxiety Neuro/Emot Active 2018- [place] present ion 5-15 [place] 09:00: [id number] 00 Neuro depressive Neuro/Emot Active 2018- [place] feelings ion 5-15 [place] present 09:00: [id number] 00 Neuro impaired Neuro/Emot Active [place] decision-ma ion 5-15 [place] sonali 09:00: [id number] 00 Activity self-care Activity Resolve 2019-05-20 [place] deficit d 5-15 11:15:00 [place] 09:00: [id number] 00 Safety fall risk Safety Resolve 2019-07-17 [place] factor d 5-15 10:35:00 [place] present 09:00: [id number] 00 Safety risk for Safety Resolve 2019-07-17 [facility] hospitaliza d 5-15 10:35:00 [place] tion 09:00: [id number] 00 Medication potential Meds Resolve 2019-03-27 [place] clinically d 515 09:15:00 [place] significant 09:00: [id number] medication 00 issue Integument surgical Integument Resolve 2019-05-20 [place] wound d 7-12 11:15:00 [place] present 10:00: [id number] 00 Nutrition enteral Nutrition Resolve 2019-06-26 [place] therapy d 05-01 10:35:00 [place] 10:00: [id number] 00 Respiratory dyspnea Respirator Resolve 2019-08-07 Leanna present y d 06-26 10:25:00 [place] 10:35: [id number] 00 Respiratory smoker Respirator Resolve 2019-07-01 Leanna y d 06-26 10:15:00 [place] 10:35: [id number] 00 Endo/Han anti-coagul Endo/Han Resolve 2019-07-23 Leanna ation d 06-26 10:15:00 [place]ge[place]zi therapy 10:35: [id number] 00 Elimination urinary Eliminatio Resolve 2019-07-23 Leanna incontinenc n d 06-26 10:15:00 Rege[place]zi e 10:35: [id number] 00 Elimination nausea/vomi Eliminatio Resolve 2019-07-01 Leanna ting n d 06-26 10:15:00 Rege[place]zi 10:35: [id number] 00 Integument surgical Integument Resolve 2019-07-23 [place] wound d 9-11 10:15:00 [place] present 10:15: [id number] 00 Nutrition enteral Nutrition Resolve 2019-07-23 [place] therapy d 9-11 10:15:00 [place] 10:15: [id number] 00 Respiratory smoker Respirator Resolve 2019-07-16 Leanna y d 07-16 10:05:00 Rege[place]zi 10:05: [id number] 00 Elimination diarrhea Eliminatio Resolve 2019-07-23 Leanna n d 9 10:15:00 [place] 10:35: [id number] 00 Cardio hypertensio Cardiovasc Resolve 2018-102019-07-30 Leanna n ular d 0-03 10:00:00 [place] 10:15: [id number] 00 Safety risk for Safety Resolve 2018-102019-07-23 Leanna hospitaliza d 0-03 10:15:00 [place]ge[place]zi tion 10:15: [id number] 00 24 Hr Diet knowledge/s NT: 24Hr Resolve 2018-102019-07-23 Wen kill Diet d 0-03 15:00:00 [place] deficit - 15:00: [id number] pt 00 Nutritional eating NT: Resolve 2018-102019-07-23 Wen Barrier difficultie Barriers d 0-03 15:00:00 [place] s present 15:00: [id number] 00 Safety risk for Safety Resolve 2018-102019-08-07 [facility] hospitaliza d 0-04 10:25:00 [place] tion 14:00: [id number] 00 Social financial MURIEL: Active 2018-10 [facility] resource Social 0-04 [place] deficit Services 14:00: [id number] 00 Social support MURIEL: Active 2018-10 [facility] deficit Social 0-04 [place] [facility] 14:00: [id number] 00 Social knowledge/s MURIEL: Active 2018-10 [facility] kill Social 0-04 [place] deficit - Services 14:00: [id number] pt 00 Social financial MURIEL: Unknown 2018-10 [facility] [facility] resource Social 0-10 [place] deficit Services 15:00: [id number] 00 Social knowledge/s MURIEL: Unknown 2018-10 [facility] [facility] kill Social 0-10 [place] deficit - Services 15:00: [id number] pt 00 Respiratory lung sounds Respirator Resolve 2018-102019-08-07 Leanna deficit y d 0-18 10:25:00 [place] 10:25: [id number] 00 Respiratory dyspnea Respirator Active 2018-10 [facility] present y 10-28 [place] 11:00: [id number] 00 Integument surgical Integument Active 2018-10 [facility] wound 10-28 Ingrm present 11:00: [id number] 00 Nutrition enteral Nutrition Active 2018-10 [facility] therapy 10-28 Ingrm 11:00: [id number] 00 Elimination urinary Eliminatio Active 2018-10 [facility] incontinenc n 10-28 Ingrm e 11:00: [id number] 00 Safety fall risk Safety Active 2018-10 [facility] factor 10-28 Ingrm present 11:00: [id number] 00 Safety risk for Safety Active 2018-10 [facility] hospitaliza 10-28 Ingrm tion 11:00: [id number] 00 Allergies, Adverse Reactions, Alerts Allergy Allergy Status Severity Reaction(s) Onset Inactive Treating Comments Name Type Date Date Clinician latex Base Active Unknown Hives [facility]ez Ingredient 07-07 [facility] [id number] amoxicillin Base Active Unknown Anaphylaxis Mer[facility]ez Ingredient 07-07 [facility] [id number] bee venom Base Active Unknown Anaphylaxis Mer[facility] protein Ingredient 07-07 [facility] (honey bee) [id number] Botox Medication Active Unknown Anaphylaxis Mercedez Name ID 07-07 [facility] [id number] contrast Unknown Active Unknown Anaphylaxis Mer[facility]ez dye 07-07 [facility] [id number] Penicillins Allergen Active Unknown Anaphylaxis Mer[facility] Group 07-07 [facility] [id number] shellfish Base Active Unknown Anaphylaxis [facility] derived Ingredient 07-07 [facility] [id number] adhesive Base Active Unknown Hives [facility] tape Ingredient 07-07 [facility] [id number] nsaids Unknown Active Unknown stomach issues Mercedez 07-07 [facility] [id number] oxycodone Base Active Unknown swelling Mercedez Ingredient 07-07 [facility] [id number] Betadine Medication Active Unknown Rash Mercedez Name ID 07-07 [facility] [id number] Hibiclens Medication Active Unknown Rash Mercedez Name ID 07-07 [facility] [id number] evironmenta Unknown Active Unknown hay fever, Rea l/seasonal watery eye, 07-07 [facility] itching, [id number] sneeze, congestion povidone-io Base Active Unknown itching Rea dine Ingredient 07-07 [facility] [id number] Iodine and Allergen Active Unknown Anaphylaxis Rea Iodide Group 07-07 [facility] Containing [id number] Products albumin Base Active Unknown Anaphylaxis Rea colloid, Ingredient 07-07 [facility] human [id number] fentanyl Base Active Unknown hallucinations Rea Ingredient 07-07 [facility] [id number] Medications Ordered Filled Start Stop Current Ordering [...]
--- OUTSIDE RECORDS SUMMARY | 2019-09-08 06:17 | XMS REPORT ---
:1955 Author Organization [facility] Care Team Providers Name Role Phone Unavailable Unavailable Unavailable Problems Condition Condition Condition Status Onset Resolution Last Treating Comments Name Details Category Date Date Treatment Clinician Date Pain frequent Pain Mgmt Resolve 2018-11-26 Ana pain d 07-07 16:15:00 Ferguson 13:30: [id number] 00 Pain severe pain Pain Mgmt Resolve 2018-11-26 Ana d 07-07 16:15:00 Ferguson 13:30: [id number] 00 Endo/Han anti-coagul Endo/Han Resolve 2019-02-06 Ana ation d 07-07 11:15:00 Ferguson therapy 13:30: [id number] 00 Integument surgical Integument Resolve 2018-08-05 Rea wound d 07-07 13:35:00 Guidelli present 13:30: [id number] 00 Nutrition nutritional Nutrition Resolve 2019-01-02 Ana restriction d 07-07 10:00:00 Ferguson s 13:30: [id number] 00 Nutrition changing Nutrition Resolve 2019-01-02 Ana weight/appe d 07-07 10:00:00 Ferguson tite 13:30: [id number] 00 Nutrition nutritional Nutrition Resolve 2019-01-02 Ana risk d 07-07 10:00:00 Ferguson 13:30: [id number] 00 Nutrition enteral Nutrition Resolve 2019-02-06 Ana therapy d 07-07 11:15:00 Ferguson 13:30: [id number] 00 Safety structural Safety Resolve 2019-02-06 Ana barriers d 07-07 11:15:00 Ferguson present 13:30: [id number] 00 Safety fall risk Safety Resolve 2019-02-06 Ana factor d 07-07 11:15:00 Ferguson present 13:30: [id number] 00 Safety risk for Safety Resolve 2019-02-06 Ana hospitaliza d 07-07 11:15:00 Ferguson tion 13:30: [id number] 00 Medication potential Meds Resolve 2019-02-06 Ana clinically d 07-07 11:15:00 Ferguson significant 13:30: [id number] medication 00 issue Musculoskel requires Musculoske Resolve 2019-02-06 Ana etal human letal d 07-07 11:15:00 Ferguson assist to 13:30: [id number] leave home 00 IV IV present IV Resolve 2019-02-06 Rea d 07-20 11:15:00 [place] [id number] Respiratory dyspnea Respirator Resolve 2017-102019-02-06 Mercedez present y d 0-16 11:15:00 [place] 13:35: [id number] 00 Neuro confusion Neuro/Emot Resolve 2017-102019-02-06 Mercedez present ion d 0-16 11:15:00 [place] 13:35: [id number] 00 Neuro depressive Neuro/Emot Resolve 2017-102019-02-06 Mercedez feelings ion d 0-16 11:15:00 Ingrahm present 13:35: [id number] 00 Safety can be left Safety Resolve 2017-102019-02-06 Mercedez alone for d 0-18 11:15:00 Ingrahm only short 08:10: [id number] periods 00 Integument surgical Integument Resolve 2017-102018-10-30 Shila wound d 1-15 10:10:00 Brian present 08:55: [id number] 00 Elimination GI drain or Eliminatio Resolve 2017-102019-02-06 Shila tube n d 1-15 11:15:00 Brian present 08:55: [id number] 00 Neuro anxiety Neuro/Emot Resolve 2017-102019-02-06 Shila present ion d 1-15 11:15:00 Brian 08:55: [id number] 00 Medication injectable Meds Resolve 2017-102019-02-06 Shila med d 11-04 11:15:00 Brian assistance 08:55: [id number] required 00 Safety fire risk Safety Resolve 2017-102019-02-06 Shila present d 1-15 11:15:00 Brian 13:00: [id number] 00 Elimination urinary Eliminatio Resolve 2019-02-06 Mercedez incontinenc n d 11-18 11:15:00 Ingrahm e 14:20: [id number] 00 Pain frequent Pain Mgmt Resolve 2019-02-06 Mercedez pain d 2-15 11:15:00 Ingrahm 10:15: [id number] 00 Safety risk for Safety Unknown Leanna hospitaliza 02-06 Regeczi tion 15:45: [id number] 00 Respiratory lung sounds Respirator Resolve 2019-04-03 Leanna deficit y d 02-10 10:01:00 Regeczi 13:20: [id number] 00 Respiratory smoker Respirator Resolve 2019-04-03 Leanna y d 02-16 10:01:00 Regeczi 12:10: [id number] 00 Respiratory dyspnea Respirator Resolve 2019-06-05 Mercedez present y d 15 10:30:00 Ingrahm 09:00: [id number] 00 Integument surgical Integument Resolve 2019-03-27 Mercedez wound d 15 09:15:00 Ingrahm present 09:00: [id number] 00 Nutrition enteral Nutrition Resolve 2019-03-27 Mercedez therapy d 15 09:15:00 Ingrahm 09:00: [id number] 00 Elimination urinary Eliminatio Resolve 2019-04-10 Mercedez incontinenc n d 5-15 09:30:00 Ingrahm e 09:00: [id number] 00 Neuro confusion Neuro/Emot Active Mercedez present ion 5-15 Ingrahm 09:00: [id number] 00 Neuro anxiety Neuro/Emot Active 2018- Mercedez present ion 5-15 Ingrahm 09:00: [id number] 00 Neuro depressive Neuro/Emot Active 2018- Mercedez feelings ion 5-15 Ingrahm present 09:00: [id number] 00 Neuro impaired Neuro/Emot Active Mercedez decision-ma ion 5-15 Ingrahm sonali 09:00: [id number] 00 Activity self-care Activity Resolve 2019-05-20 Mercedez deficit d 5-15 11:15:00 Ingrahm 09:00: [id number] 00 Safety fall risk Safety Resolve 2019-07-17 Mercedez factor d 5-15 10:35:00 Ingrahm present 09:00: [id number] 00 Safety risk for Safety Resolve 2019-07-17 Mercedez hospitaliza d 5-15 10:35:00 Ingrahm tion 09:00: [id number] 00 Medication potential Meds Resolve 2019-03-27 Mercedez clinically d 515 09:15:00 Ingrahm significant 09:00: [id number] medication 00 issue Integument surgical Integument Resolve 2019-05-20 Mercedez wound d 7-12 11:15:00 Ingrahm present 10:00: [id number] 00 Nutrition enteral Nutrition Resolve 2019-06-26 Mercedez therapy d 05-01 10:35:00 Ingrahm 10:00: [id number] 00 Respiratory dyspnea Respirator Resolve 2019-08-07 Leanna present y d 06-26 10:25:00 Regeczi 10:35: [id number] 00 Respiratory smoker Respirator Resolve 2019-07-01 Leanna y d 06-26 10:15:00 Regeczi 10:35: [id number] 00 Endo/Han anti-coagul Endo/Han Resolve 2019-07-23 Leanna ation d 06-26 10:15:00 Regeczi therapy 10:35: [id number] 00 Elimination urinary Eliminatio Resolve 2019-07-23 Leanna incontinenc n d 06-26 10:15:00 Regeczi e 10:35: [id number] 00 Elimination nausea/vomi Eliminatio Resolve 2019-07-01 Leanna ting n d 06-26 10:15:00 Regeczi 10:35: [id number] 00 Integument surgical Integument Resolve 2019-07-23 Mercedez wound d 9-11 10:15:00 Ingrahm present 10:15: [id number] 00 Nutrition enteral Nutrition Resolve 2019-07-23 Mercedez therapy d 9-11 10:15:00 Ingrahm 10:15: [id number] 00 Respiratory smoker Respirator Resolve 2019-07-16 Leanna y d 07-16 10:05:00 Regeczi 10:05: [id number] 00 Elimination diarrhea Eliminatio Resolve 2019-07-23 Leanna n d 9 10:15:00 Regeczi 10:35: [id number] 00 Cardio hypertensio Cardiovasc Resolve 2018-102019-07-30 Leanna n ular d 0-03 10:00:00 Regeczi 10:15: [id number] 00 Safety risk for Safety Resolve 2018-102019-07-23 Leanna hospitaliza d 0-03 10:15:00 Regeczi tion 10:15: [id number] 00 24 Hr Diet knowledge/s NT: 24Hr Resolve 2018-102019-07-23 Wen kill Diet d 0-03 15:00:00 [place] deficit - 15:00: [id number] pt 00 Nutritional eating NT: Resolve 2018-102019-07-23 Wen Barrier difficultie Barriers d 0-03 15:00:00 [place] s present 15:00: [id number] 00 Safety risk for Safety Resolve 2018-102019-08-07 Roseline hospitaliza d 0-04 10:25:00 [place] tion 14:00: [id number] 00 Social financial MURIEL: Active 2018-10 [facility] resource Social 0-04 [place] deficit Services 14:00: [id number] 00 Social support MURIEL: Active 2018-10 [facility] deficit Social 0-04 [place] [facility] 14:00: [id number] 00 Social knowledge/s MURIEL: Active 2018-10 [facility] kill Social 0-04 [place] deficit - Services 14:00: [id number] pt 00 Social financial MURIEL: Unknown 2018-10 [facility] resource Social 0-10 [place] deficit Services 15:00: [id number] 00 Social knowledge/s MURIEL: Unknown 2018-10 [facility] kill Social 0-10 Ingrahm deficit - Services 15:00: [id number] pt 00 Respiratory lung sounds Respirator Resolve 2018-102019-08-07 Leanna deficit y d 0-18 10:25:00 Regeczi 10:25: [id number] 00 Respiratory dyspnea Respirator Active 2018-10 Mercedez present y 10-28 Ingrahm 11:00: [id number] 00 Integument surgical Integument Active 2018-10 Mercedez wound 10-28 Ingrm present 11:00: [id number] 00 Nutrition enteral Nutrition Active 2018-10 Mercedez therapy 10-28 Ingrm 11:00: [id number] 00 Elimination urinary Eliminatio Active 2018-10 Mercedez incontinenc n 10-28 Ingrm e 11:00: [id number] 00 Safety fall risk Safety Active 2018-10 Mercedez factor 10-28 Ingrm present 11:00: [id number] 00 Safety risk for Safety Active 2018-10 Mercedez hospitaliza 10-28 Ingrm tion 11:00: [id number] 00 Allergies, Adverse Reactions, Alerts Allergy Allergy Status Severity Reaction(s) Onset Inactive Treating Comments Name Type Date Date Clinician latex Base Active Unknown Hives Mercedez Ingredient 07-07 [facility] [id number] amoxicillin Base Active Unknown Anaphylaxis Mercedez Ingredient 07-07 [facility] [id number] bee venom Base Active Unknown Anaphylaxis Mercedez protein Ingredient 07-07 [facility] ([facility] [id number] Botox Medication Active Unknown Anaphylaxis Mercedez Name ID 07-07 [facility] [id number] contrast Unknown Active Unknown Anaphylaxis Mercedez dye 07-07 [facility] [id number] Penicillins Allergen Active Unknown Anaphylaxis Mercedez Group 07-07 [facility] [id number] shellfish Base Active Unknown Anaphylaxis Mercedez derived Ingredient 07-07 [facility] [id number] adhesive Base Active Unknown Hives Mercedez tape Ingredient 07-07 [facility] [id number] nsaids Unknown Active Unknown stomach issues Mercedez 07-07 [facility] [id number] oxycodone Base Active Unknown swelling Mercedez Ingredient 07-07 [facility] [id number] Betadine Medication Active Unknown Rash Mercedez Name ID 07-07 [facility] [id number] Hibiclens Medication Active Unknown Rash Mercedez Name ID 07-07 [facility] [id number] evironmenta Unknown Active Unknown hay fever, Rea l/seasonal watery eye, 07-07 Guidelli itching, [id number] sneeze, congestion povidone-io Base Active Unknown itching Rea dine Ingredient 07-07 Guidelli [id number] Iodine and Allergen Active Unknown Anaphylaxis Rea Iodide Group 07-07 Guidelli Containing [id number] Products albumin Base Active Unknown Anaphylaxis Rea colloid, Ingredient 07-07 Guidelli human [id number] fentanyl Base Active Unknown hallucinations Rea Ingredient 07-07 Guidelli [id number] Medications Ordered Filled Start Stop Current Ordering [...]
--- OUTSIDE RECORDS SUMMARY | 2019-09-08 06:18 | XMS REPORT ---
:1955 Author Organization [facility] Care Team Providers Name Role Phone Unavailable Unavailable Unavailable Problems Condition Condition Condition Status Onset Resolution Last Treating Comments Name Details Category Date Date Treatment Clinician Date Pain frequent Pain Mgmt Resolve 2018-11-26 Ana pain d 07-07 16:15:00 [place] 13:30: [id number] 00 Pain severe pain Pain Mgmt Resolve 2018-11-26 Ana d 07-07 16:15:00 [place] 13:30: [id number] 00 Endo/Han anti-coagul Endo/Han Resolve 2019-02-06 Ana ation d 07-07 11:15:00 [place] therapy 13:30: [id number] 00 Integument surgical Integument Resolve 2018-08-05 Rea wound d 07-07 13:35:00 Guidelli present 13:30: [id number] 00 Nutrition nutritional Nutrition Resolve 2019-01-02 Ana restriction d 07-07 10:00:00 [place] s 13:30: [id number] 00 Nutrition changing Nutrition Resolve 2019-01-02 Ana weight/appe d 07-07 10:00:00 [place] tite 13:30: [id number] 00 Nutrition nutritional Nutrition Resolve 2019-01-02 Ana risk d 07-07 10:00:00 [place] 13:30: [id number] 00 Nutrition enteral Nutrition Resolve 2019-02-06 Ana therapy d 07-07 11:15:00 [place] 13:30: [id number] 00 Safety structural Safety Resolve 2019-02-06 Ana barriers d 07-07 11:15:00 [place] present 13:30: [id number] 00 Safety fall risk Safety Resolve 2019-02-06 Ana factor d 07-07 11:15:00 [place] present 13:30: [id number] 00 Safety risk for Safety Resolve 2019-02-06 Ana hospitaliza d 07-07 11:15:00 [place] tion 13:30: [id number] 00 Medication potential Meds Resolve 2019-02-06 Ana clinically d 07-07 11:15:00 [place] significant 13:30: [id number] medication 00 issue Musculoskel requires Musculoske Resolve 2019-02-06 Ana etal human letal d 07-07 11:15:00 [place] assist to 13:30: [id number] leave home 00 IV IV present IV Resolve 2019-02-06 Rea d 07-20 11:15:00 Lissette [id number] Respiratory dyspnea Respirator Resolve 2017-102019-02-06 Mercedez present y d 0-16 11:15:00 Ingra[place] 13:35: [id number] 00 Neuro confusion Neuro/Emot Resolve 2017-102019-02-06 Mercedez present ion d 0-16 11:15:00 In[place] 13:35: [id number] 00 Neuro depressive Neuro/Emot Resolve 2017-102019-02-06 Mercedez feelings ion d 0-16 11:15:00 Ingrahm present 13:35: [id number] 00 Safety can be left Safety Resolve 2017-102019-02-06 Mercedez alone for d 0-18 11:15:00 Ingrahm only short 08:10: [id number] periods 00 Integument surgical Integument Resolve 2017-102018-10-30 Shila wound d 1-15 10:10:00 Brian present 08:55: [id number] 00 Elimination GI drain or Eliminatio Resolve 2017-102019-02-06 Shila tube n d 1-15 11:15:00 Brian present 08:55: [id number] 00 Neuro anxiety Neuro/Emot Resolve 2017-102019-02-06 Shila present ion d 1-15 11:15:00 Brian 08:55: [id number] 00 Medication injectable Meds Resolve 2017-102019-02-06 Shila med d 11-04 11:15:00 Brian assistance 08:55: [id number] required 00 Safety fire risk Safety Resolve 2017-102019-02-06 Shila present d 1-15 11:15:00 Brian 13:00: [id number] 00 Elimination urinary Eliminatio Resolve 2019-02-06 Mercedez incontinenc n d 11-18 11:15:00 Ingrahm e 14:20: [id number] 00 Pain frequent Pain Mgmt Resolve 2019-02-06 Mercedez pain d 2-15 11:15:00 Ingrahm 10:15: [id number] 00 Safety risk for Safety Unknown Leanna hospitaliza 02-06 Regeczi tion 15:45: [id number] 00 Respiratory lung sounds Respirator Resolve 2019-04-03 Leanna deficit y d 02-10 10:01:00 Regeczi 13:20: [id number] 00 Respiratory smoker Respirator Resolve 2019-04-03 Leanna y d 02-16 10:01:00 Regeczi 12:10: [id number] 00 Respiratory dyspnea Respirator Resolve 2019-06-05 Mercedez present y d 15 10:30:00 Ingrahm 09:00: [id number] 00 Integument surgical Integument Resolve 2019-03-27 Mercedez wound d 15 09:15:00 Ingrahm present 09:00: [id number] 00 Nutrition enteral Nutrition Resolve 2019-03-27 Mercedez therapy d 15 09:15:00 Ingrahm 09:00: [id number] 00 Elimination urinary Eliminatio Resolve 2019-04-10 Mercedez incontinenc n d 5-15 09:30:00 Ingrahm e 09:00: [id number] 00 Neuro confusion Neuro/Emot Active Mercedez present ion 5-15 Ingrahm 09:00: [id number] 00 Neuro anxiety Neuro/Emot Active 2018- Mercedez present ion 5-15 Ingrahm 09:00: [id number] 00 Neuro depressive Neuro/Emot Active 2018- [place]ez feelings ion 5-15 Ingrahm present 09:00: [id number] 00 Neuro impaired Neuro/Emot Active Mercedez decision-ma ion 5-15 Ingrahm sonali 09:00: [id number] 00 Activity self-care Activity Resolve 2019-05-20 Mercedez deficit d 5-15 11:15:00 Ingrahm 09:00: [id number] 00 Safety fall risk Safety Resolve 2019-07-17 Mercedez factor d 5-15 10:35:00 Ingrahm present 09:00: [id number] 00 Safety risk for Safety Resolve 2019-07-17 Mercedez hospitaliza d 5-15 10:35:00 Ingrahm tion 09:00: [id number] 00 Medication potential Meds Resolve 2019-03-27 Mercedez clinically d 515 09:15:00 Ingrahm significant 09:00: [id number] medication 00 issue Integument surgical Integument Resolve 2019-05-20 Mer[place]ez wound d 7-12 11:15:00 Ingrahm present 10:00: [id number] 00 Nutrition enteral Nutrition Resolve 2019-06-26 Mercedez therapy d 05-01 10:35:00 Ingrahm 10:00: [id number] 00 Respiratory dyspnea Respirator Resolve 2019-08-07 Leanna present y d 06-26 10:25:00 Regeczi 10:35: [id number] 00 Respiratory smoker Respirator Resolve 2019-07-01 Leanna y d 06-26 10:15:00 Regeczi 10:35: [id number] 00 Endo/Han anti-coagul Endo/Han Resolve 2019-07-23 Leanna ation d 06-26 10:15:00 Regeczi therapy 10:35: [id number] 00 Elimination urinary Eliminatio Resolve 2019-07-23 Leanna incontinenc n d 06-26 10:15:00 Regeczi e 10:35: [id number] 00 Elimination nausea/vomi Eliminatio Resolve 2019-07-01 Leanna ting n d 06-26 10:15:00 Regeczi 10:35: [id number] 00 Integument surgical Integument Resolve 2019-07-23 [place] wound d 9-11 10:15:00 Ingrahm present 10:15: [id number] 00 Nutrition enteral Nutrition Resolve 2019-07-23 [place] therapy d 9-11 10:15:00 Ingrahm 10:15: [id number] 00 Respiratory smoker Respirator Resolve 2019-07-16 Leanna y d 07-16 10:05:00 Regeczi 10:05: [id number] 00 Elimination diarrhea Eliminatio Resolve 2019-07-23 Leanna n d 9 10:15:00 Regeczi 10:35: [id number] 00 Cardio hypertensio Cardiovasc Resolve 2018-102019-07-30 Leanna n ular d 0-03 10:00:00 Regeczi 10:15: [id number] 00 Safety risk for Safety Resolve 2018-102019-07-23 Leanna hospitaliza d 0-03 10:15:00 Regeczi tion 10:15: [id number] 00 24 Hr Diet knowledge/s NT: 24Hr Resolve 2018-102019-07-23 Wen kill Diet d 0-03 15:00:00 [place] deficit - 15:00: [id number] pt 00 Nutritional eating NT: Resolve 2018-102019-07-23 Wen Barrier difficultie Barriers d 0-03 15:00:00 [place] s present 15:00: [id number] 00 Safety risk for Safety Resolve 2018-102019-08-07 [facility] hospitaliza d 0-04 10:25:00 [place] tion 14:00: [id number] 00 Social financial MURIEL: Active 2018-10 [facility] resource Social 0-04 [place] deficit Services 14:00: [id number] 00 Social support MURIEL: Active 2018-10 [facility] deficit Social 0-04 [place] [facility] 14:00: [id number] 00 Social knowledge/s MURIEL: Active 2018-10 [facility] kill Social 0-04 [place] deficit - Services 14:00: [id number] pt 00 Social financial MURIEL: Unknown 2018-10 [facility] resource Social 0-10 [place] deficit Services 15:00: [id number] 00 Social knowledge/s MURIEL: Unknown 2018-10 [facility] kill Social 0-10 [place] deficit - Services 15:00: [id number] pt 00 Respiratory lung sounds Respirator Resolve 2018-102019-08-07 Leanna deficit y d 0-18 10:25:00 Regeczi 10:25: [id number] 00 Allergies, Adverse Reactions, Alerts Allergy Allergy Status Severity Reaction(s) Onset Inactive Treating Comments Name Type Date Date Clinician latex Base Active Unknown Hives [facility] Ingredient 07-07 Ingrm [id number] amoxicillin Base Active Unknown Anaphylaxis Mer[place] Ingredient 07-07 In[facility] [id number] bee venom Base Active Unknown Anaphylaxis [facility] protein Ingredient 07-07 [facility] [id number] Botox Medication Active Unknown Anaphylaxis Mer[facility]ez Name ID 07-07 [facility] [id number] contrast Unknown Active Unknown Anaphylaxis [facility] dye 07-07 [facility] [id number] Penicillins Allergen Active Unknown Anaphylaxis Mer[facility] Group 07-07 [facility] [id number] shellfish Base Active Unknown Anaphylaxis [place] derived Ingredient 07-07 [facility] [id number] adhesive Base Active Unknown Hives Mer[place]ez tape Ingredient 07-07 [facility] [id number] nsaids Unknown Active Unknown stomach issues Mercedez 07-07 [facility] [id number] oxycodone Base Active Unknown swelling Mercedez Ingredient 07-07 [facility] [id number] Betadine Medication Active Unknown Rash Mercedez Name ID 07-07 [facility] [id number] Hibiclens Medication Active Unknown Rash Mercedez Name ID 07-07 [facility] [id number] evironmenta Unknown Active Unknown hay fever, Rea l/seasonal watery eye, 07-07 Guidelli itching, [id number] sneeze, congestion povidone-io Base Active Unknown itching Rea dine Ingredient 07-07 Guid[facility] [id number] Iodine and Allergen Active Unknown Anaphylaxis Rea Iodide Group 07-07 Guidelli Containing [id number] Products albumin Base Active Unknown Anaphylaxis Rea colloid, Ingredient 07-07 Guidelli human [id number] fentanyl Base Active Unknown hallucinations Rea Ingredient 07-07 [facility] [id number] Medications Ordered Filled Start Stop Current Ordering Indication Dosage Frequency Signature Comments Components Medication Medication Date Date Medication? Clinician (SIG) Name Name Jevity 1.5 Jevity 1.5 2018- 2019- No Blegen Unknown Unknown Pineda 0.06 Pineda 0.06 07-07 Tashia FINCH gram-1.5 gram-1.5 e kcal/mL kcal/mL oral liquid oral liquid cyanocobala cyanocobala 2017- No Blegen Unknown Unknown min (vit min (vit 07-07 ,Tashia B-12) 1,000 B-12) 1,000 e mcg/mL [...] Unknown Unknown sulfate HFA sulfate HFA 07-07 Tashia FINCH 90 90 e mcg/actuati mcg/actuati on aerosol on aerosol inhaler inhaler metoprolol metoprolol 2018- No [place] Unknown Unknown tartrate 50 tartrate 50 07-07 0515 Tashia FINCH mg tablet mg tablet e carisoprodo carisoprodo 2018- No [place] Unknown Unknown l 350 mg l 350 mg 07-07 Tashia FINCH tablet tablet e 0.9% normal [...] Blegen Unknown Unknown 30 mg 30 mg 010-26 Tashia FINCH tablet,exte tablet,exte e nded nded [...] ne 4 mg ne 4 mg 12-23 MDDouglas tablet tablet levoFLOXaci levoFLOXaci 2018- No Blegen Unknown Unknown n 500 mg n 500 mg 01-13 Tashia FINCH tablet tablet e cyanocobala cyanocobala No Blegen Unknown Unknown min (vit min (vit 07-07 Tashia FINCH B-12) 1,000 B-12) 1,000 e mcg/mL mcg/mL injection injection solution solution carisoprodo carisoprodo No [place] Unknown Unknown l 350 mg l 350 mg 10-26 Tashia FINCH tablet tablet e metoprolol metoprolol 2018- No Ble[place] Unknown Unknown tartrate 50 tartrate 50 10-26- Tashia FINCH mg tablet mg tablet e amLODIPine amLODIPine No [place] Unknown Unknown 10 mg 10 mg - ,Tashia tablet tablet e clopidogrel clopidogrel No Blegen Unknown Unknown 75 mg 75 mg - ,Tashia tablet tablet e diphenhydrA diphenhydrA 2018- No Blegen Unknown Unknown MINE 50 mg MINE 50 mg 10-26 ,Tashia capsule capsule e pantoprazol pantoprazol 2018- No Blegen Unknown Unknown e 40 mg e 40 mg 10-26- ,Tashia tablet,linda tablet,linda e yed release yed release morphine ER morphine ER 2018- No Blegen Unknown Unknown 30 mg 30 mg 10-26- Tashia FINCH tablet,exte tablet,exte e nded nded release release HYDROmorpho HYDROmorpho No [place] Unknown Unknown ne 4 mg ne 4 mg 3- ,Douglas tablet tablet diphenhydrA diphenhydrA 2018- No Blegen Unknown Unknown MINE 50 mg MINE 50 mg 10-26- Tashia FINCH capsule capsule e ondansetron ondansetron 2018- No [place] Unknown Unknown 4 mg 4 mg 02-06- Tashia FINCH disintegrat disintegrat e ing tablet ing tablet metoprolol metoprolol 2018- No [place] Unknown Unknown tartrate 50 tartrate 50 04-2315 Tashia FINCH mg tablet mg tablet e isosorbide isosorbide No [place] Unknown Unknown mononitrate mononitrate - Tashia FINCH ER 30 mg ER 30 mg e tablet,exte tablet,exte nded nded release 24 release 24 hr hr ondansetron ondansetron No Ble[place] Unknown Unknown 4 mg 4 mg - Tashia FINCH disintegrat disintegrat e ing tablet ing tablet losartan losartan No [place]gen Unknown Unknown 100 mg 100 mg - Tashia FINCH tablet tablet e morphine ER morphine ER No [place] Unknown Unknown 60 mg 60 mg 4- ,Douglas tablet,exte tablet,exte nded nded release release [...] tablet 1 mg tablet 5-15 Tashia FINCH e Creon Creon No [place] Unknown Unknown 12,000-38,0 12,000-38,0 5-15 Tashia FINCH 00-60,000 00-60,000 e unit unit capsule,del capsule,del ayed ayed release release thiamine thiamine No [place] Unknown Unknown HCl HCl 5-15 Tashia FINCH (vitamin (vitamin e B1) 100 mg B1) 100 mg tablet tablet eszopiclone eszopiclone 2018- No [place] Unknown Unknown 1 mg tablet 1 mg tablet 6 06-11 Tashia FINCH mupirocin 2 mupirocin 2 2018- No [place] Unknown Unknown % topical % topical 6 06-20 Tashia FINCH cream cream e LORazepam LORazepam No [place] Unknown Unknown 0.5 mg 0.5 mg 6-11 Tashia FINCH tablet tablet e albuterol albuterol 2018-10- Yes [...] mg tablet mg tablet e Spiriva Spiriva 2018-10 2019- Yes [place] Unknown Unknown Respimat Respimat 0-07 10-21 Tashia FINCH 2.5 2.5 e mcg/actuati mcg/actuati on solution on solution for for inhalation inhalation spironolact spironolact 2018-10 Yes [place] Unknown Unknown one 25 mg one 25 mg 0-21 Tashia FINCH tablet tablet e ipratropium ipratropium 2018-10 Yes [place] Unknown Unknown bromide 17 bromide 17 0-21 Tashia FINCH mcg/actuati mcg/actuati e on HFA on HFA aerosol aerosol inhaler inhaler ipratropium ipratropium 2018-10 Yes [place] Unknown Unknown bromide 17 bromide 17 0-21 Tashia FINCH mcg/actuati mcg/actuati e on HFA on HFA [...]
[2019-09-08 06:27] LABS: ABS Lymphocytes 0.6 10^3/ul (1.0-4.8); ABS Monocytes 0.3 10^3/ul (0-0.8); ABS Neutrophils 7.9 10^3/ul (1.5-7.7); Hematocrit 42 % (35-47); Hemoglobin 14.6 g/dL (12.0-16.0); Lymphocyte % 6.6 %; Mean Corpuscular HGB Conc 35 g/dL (31-36); Mean Corpuscular Hemoglobin 28 pg (27-31); Mean Corpuscular Volume 82 fL (80-97); Mean Platelet Volume 7.4 fL (7.4-10.4); Nucleated Red Blood Cells % 0.1; Platelet Count 313 10^3/uL (150-450); Red Blood Count 5.16 10^6 /uL (3.70-4.87); Red Cell Distribution Width 15 % (10-15); White Blood Count 8.9 10^3/uL (3.5-10.8)
[2019-09-08 06:42] LABS: ALT 10 U/L (7-52); Albumin 4.1 g/dL (3.2-5.2); Albumin/Globulin Ratio 1.2 (1-3); Alkaline Phosphatase 63 U/L (34-104); BUN/Creatinine Ratio 26.4 (8-20); Blood Urea Nitrogen 19 mg/dL (6-24); CO2 Carbon Dioxide 18 mmol/L (22-32); Calcium 8.6 mg/dL (8.6-10.3); Chloride 98 mmol/L (101-111); EGFR African American 98.7 (>60); EGFR Non-African American 81.6 (>60); Globulin 3.4 g/dL (2-4); Glucose 164 mg/dL (70-100); Sodium 127 mmol/L (135-145); Total Protein 7.5 g/dL (6.4-8.9)
[2019-09-08 06:45] LABS: Troponin I 0.01 ng/mL (<0.03)
[2019-09-08] MEDS ORDERED: Metoprolol Tartrate IV* 1 MG/ML 5 ML VIAL IV ONE (06:48)
[2019-09-08 06:52] LABS: Anion Gap 11 mmol/L (2-11)
--- NOTE | 2019-09-08 07:23 | ED ---
Progress - Progress Note Progress Note: This patient is a 64 y/o F presenting to [facility] with CC of chest pain due to her achalasia. Patient is a sign-out from Dr. Savi Werner to Dr. Sanjay Castro at 0700 on 09/08/19 at shift change pending brain CT and disposition. Medications reviewed. Allergies noted. Brain CT revealed: no acute intracranial abnormalities. Reviewed by Radiologist. Upon evaluation, the patient reports feeling a little bit better. She states that usually when she gets achalasia pain like this, only time helps. She says that sometimes her episodes of achalasia can last up to a couple of days. The last episode of achalasia she had was a couple of months ago and this one came around suddenly. Patient reports that she has also had three MIs, with the last MS occurring less than a year ago. However at that time, her physician felt it was not necessary to stent the patient. For todays episode, the patient denies difficulty breathing but reports nausea. Patient has a feeding tube in place because of her achalasia and history of breast cancer. BP in the room at 0702 is 172 systolic. She reports she wants to be admitted to [facility]. Physical Exam upon evaluation: Constitutional: Well-developed, Well-nourished, Alert. (-) Distressed Skin: Warm, Dry HENT: Normocephalic; Atraumatic Eyes: Conjunctiva normal Neck: Musculoskeletal ROM normal neck. (-) JVD, (-) Stridor, (-) Tracheal deviation Cardio: Rhythm regular, rate normal, Heart sounds normal; Intact distal pulses; Radial pulses are 2+ and symmetric. (-) Murmur. BP in the room is 172 systolic. Pulmonary/Chest wall: Effort normal. (-) Respiratory distress, (-) Wheezes, (-) Rales Abd: G-tube present without abdominal tenderness. Musculoskeletal: (-) Edema Lymph: (-) Cervical adenopathy Neuro: Alert, Oriented x3 Psych: Mood and affect Normal Course/Dx - Course Course Of Treatment: This patient is a 64 y/o F presenting to [facility] with CC of chest pain due to her achalasia. Patient is a sign-out from Dr. Savi Werenr to Dr. Sanjay Castro at 0700 on 09/08/19 at shift change pending brain CT and disposition. Patient has had severe chest pain which she feels is like her achalasia. However, patient does have a history of MS her last catheter in January. Patient also thinks this feels like her prior heart attack. Patient does have EKG changes with new T-wave inversions in her inferior leads. Given patient's unrelenting pain and EKG changes, she was admitted to the hospitalist for further workup and management. Patient was given aspirin by myself. - Diagnoses Provider Diagnoses: Achalasia, Chest pain - Provider Notifications Discussed Care Of Patient With: Tunde Burt Time Discussed With Above Provider: 07:14 Instructed by Provider To: Admit As Observation - Discussed results with Dr. Burt, hospitalist, who accepted the patient for admission to [facility]. Discharge ED - Sign-Out/Discharge Documenting (check all that apply): Patient Departure - Admit - Discharge Plan Condition: Stable Disposition: ADMITTED TO [facility] - Billing Disposition and Condition Condition: STABLE Disposition: Admitted to [facility] - Attestation Statements Document Initiated by Scribe: Yes Documenting Scribe: Richie Delarosa Provider For Whom Scribe is Documenting (Include Credential): Sanjay Castro MD Scribe Attestation: I, Richie Delarosa, scribed for Sanjay Castro MD on 09/08/19 at 1802. Scribe Documentation Reviewed: Yes Provider Attestation: The documentation as recorded by the scribeRichie accurately reflects the service I personally performed and the decisions made by me, Sanjay Castro MD Status of Scribe Document: Viewed Procedures - Sedation Patient Received Moderate/Deep Sedation with Procedure: No Diagnostics - Vital Signs Vital Signs Temp Pulse Resp BP Pulse Ox 09/08/19 07:07 68 22 192/119 97 09/08/19 07:02 70 19 172/104 97 09/08/19 07:00 71 18 96 09/08/19 06:57 70 20 183/104 96 09/08/19 06:51 71 18 177/106 95 09/08/19 06:46 202/116 09/08/19 06:43 69 19 201/117 95 09/08/19 06:42 17 206/118 09/08/19 06:21 71 17 181/101 96 09/08/19 06:12 68 17 201/115 93 09/08/19 06:07 71 16 91 09/08/19 05:55 25 09/08/19 05:54 25 09/08/19 05:29 97.4 F 81 30 242/131 96 - Laboratory Lab Results: Lab Results 09/08/19 09/08/19 09/08/19 Range/Units 06:18 06:18 06:18 WBC 8.9 (3.5-10.8) 10^3/uL RBC 5.16 H (3.70-4.87) 10^6 /uL Hgb 14.6 (12.0-16.0) g/dL Hct 42 (35-47) % MCV 82 (80-97) fL MCH 28 (27-31) pg MCHC 35 (31-36) g/dL RDW 15 (10-15) % Plt Count 313 (150-450) 10^3/uL MPV 7.4 (7.4-10.4) fL Neut % (Auto) 89.3 % Lymph % (Auto) 6.6 % [place] % (Auto) 3.7 % Eos % (Auto) 0.0 % Baso % (Auto) 0.4 % Absolute Neuts (auto) 7.9 H (1.5-7.7) 10^3/ul Absolute Lymphs (auto) 0.6 L (1.0-4.8) 10^3/ul Absolute Monos (auto) 0.3 (0-0.8) 10^3/ul Absolute Eos (auto) 0.0 (0-0.6) 10^3/ul Absolute Basos (auto) 0.0 (0-0.2) 10^3/ul Absolute Nucleated RBC 0.0 10^3/ul Nucleated RBC % 0.1 Sodium 127 L (135-145) mmol/L Potassium TNP Chloride 98 L (101-111) mmol/L Carbon Dioxide 18 L (22-32) mmol/L Anion Gap 11 (2-11) mmol/L BUN 19 (6-24) mg/dL Creatinine 0.72 (0.51-0.95) mg/dL Est GFR ( Amer) 98.7 (>60) Est GFR (Non-Af Amer) 81.6 (>60) BUN/Creatinine Ratio 26.4 H (8-20) Glucose 164 H (70-100) mg/dL Lactic Acid 1.6 (0.5-2.0) mmol/L Calcium 8.6 (8.6-10.3) mg/dL Total Bilirubin 0.60 (0.2-1.0) mg/dL AST TNP ALT 10 (7-52) U/L Alkaline Phosphatase 63 (34-104) U/L Troponin I 0.01 (<0.03) ng/mL B-Natriuretic Peptide (<=100) pg/mL Total Protein 7.5 (6.4-8.9) g/dL Albumin 4.1 (3.2-5.2) g/dL Globulin 3.4 (2-4) g/dL Albumin/Globulin Ratio 1.2 (1-3) 09/08/19 Range/Units 06:18 WBC (3.5-10.8) 10^3/uL RBC (3.70-4.87) 10^6 /uL Hgb (12.0-16.0) g/dL Hct (35-47) % MCV (80-97) fL MCH (27-31) pg MCHC (31-36) g/dL RDW (10-15) % Plt Count (150-450) 10^3/uL MPV (7.4-10.4) fL Neut % (Auto) % Lymph % (Auto) % [place] % (Auto) % Eos % (Auto) % Baso % (Auto) % Absolute Neuts (auto) (1.5-7.7) 10^3/ul Absolute Lymphs (auto) (1.0-4.8) 10^3/ul Absolute Monos (auto) (0-0.8) 10^3/ul Absolute Eos (auto) (0-0.6) 10^3/ul Absolute Basos (auto) (0-0.2) 10^3/ul Absolute Nucleated RBC 10^3/ul Nucleated RBC % Sodium (135-145) mmol/L Potassium Chloride (101-111) mmol/L Carbon Dioxide (22-32) mmol/L Anion Gap (2-11) mmol/L BUN (6-24) mg/dL Creatinine (0.51-0.95) mg/dL Est GFR ( Amer) (>60) Est GFR (Non-Af Amer) (>60) BUN/Creatinine Ratio (8-20) Glucose (70-100) mg/dL Lactic Acid (0.5-2.0) mmol/L Calcium (8.6-10.3) mg/dL Total Bilirubin (0.2-1.0) mg/dL AST ALT (7-52) U/L Alkaline Phosphatase (34-104) U/L Troponin I (<0.03) ng/mL B-Natriuretic Peptide 165 H (<=100) pg/mL Total Protein (6.4-8.9) g/dL Albumin (3.2-5.2) g/dL Globulin (2-4) g/dL Albumin/Globulin Ratio (1-3) Result Diagrams: 09/08/19 06:18 09/08/19 07:40 Lab Statement: Any lab studies that have been ordered have been reviewed, and results considered in the medical decision making process. - Radiology CXR Radiology Interpretation Completed By: ED Physician Summary of Radiographic Findings: Impression: no acute changes, no infiltrates or effusion. - CT Brain CT Interpretation Completed By: Radiologist Summary of CT Findings: No acute intracranial abnormalities. Dr. Castro has reviewed this radiology report. - EKG 0606 Cardiac Rate: NL - 71 BPM EKG Rhythm: Sinus Rhythm EKG Comparison: Other - New T-wave inversion in III and aVF, compared to old EKG on 07/16/19. Summary of EKG Findings: EKG at 0606 reveals NSR at 70 BPM, T-wave inversion in III and aVF that is new compared to an old EKG on 07/16/19. Dr. Castro has reviewed and interpreted this EKG. 0608 Cardiac Rate: NL - 70 BPM EKG Rhythm: Sinus Rhythm Summary of EKG Findings: EKG at 0608 shows 70 BPM, sinus rhythm, no STEMI
[2019-09-08 08:03] LABS: Potassium Redraw 3.2 mmol/L (3.5-5.0)
[2019-09-08] MEDS ORDERED: Nitroglycerin TAB 0.4 MG* 0.4 MG TAB SL PRN (08:23)
[2019-09-08] MEDS ORDERED: Albuterol HFA INHALER* 8 gm MDI INH PRN (08:23)
[2019-09-08] MEDS ORDERED: LORazepam TAB(*) 0.5 MG PO PRN (08:23)
[2019-09-08] MEDS ORDERED: diPHENhydraMINE PO* 50 MG PO PRN (08:23)
[2019-09-08] MEDS ORDERED: Aspirin 81 mg CHEW TAB* 81 MG TAB.CHEW PO ONE (08:28)
[2019-09-08] MEDS ORDERED: Fluticasone NASAL SPRAY 50MCG* 16 gm SPRAY BTL BOTH NARES PRN (08:39)
[2019-09-08] MEDS ORDERED: Atorvastatin* 80 MG TAB PO ONE (08:42)
[2019-09-08] MEDS ORDERED: Lactated Ringers 1000 ML Bag* 1,000 ML IV ONE (08:47)
[2019-09-08] MEDS ORDERED: HYDROmorphone INJ* 0.5 MG/0.5 ML SYRINGE IV PRN (09:00)
[2019-09-08] MEDS: Spironolactone TAB* 25 MG PO SCH (09:23)
[2019-09-08] MEDS: Morphine TAB Extended Release (*) 30 MG TAB.ER PO SCH ×3 (09:23→21:10)
[2019-09-08] MEDS: Famotidine TAB* 20 MG PO SCH (09:23)
[2019-09-08] MEDS: Pantoprazole TAB * 40 MG TAB PO SCH (09:24)
[2019-09-08] MEDS: Folic Acid TAB* 1 MG PO SCH (09:24)
[2019-09-08] MEDS: Clopidogrel TAB* 75 MG PO SCH (09:25)
[2019-09-08] MEDS: Carisoprodol TAB* 350 MG PO PRN ×2 (09:25→21:10)
[2019-09-08] MEDS: Metoprolol Tartrate TAB* 25 MG PO SCH ×2 (09:26→21:10)
[2019-09-08] MEDS: Isosorbide Mononitrate ER TAB* 30 MG PO SCH (10:37)
[2019-09-08] MEDS: HYDROmorphone INJ1* 1 MG/ML SYRINGE IV PRN ×5 (10:37→23:00)
[2019-09-08] MEDS ORDERED: Potassium Chloride* LIQUID 20 MEQ/15 ML UDC PO ONE (10:43)
[2019-09-08] MEDS: Ondansetron ODT TAB* 4 MG PO PRN ×2 (10:47→17:47)
[2019-09-08 11:03] LABS: C Reactive Protein 3.34 mg/L (<8.01); Magnesium 1.6 mg/dL (1.9-2.7)
[2019-09-08] MEDS ORDERED: Magnesium Sulfate IV* 3 GM in NS 0.9% 100 ML* 100 ML IVPB ONE (11:18)
[2019-09-08] MEDS: Potassium Chlor TAB* 20 MEQ TAB.ER PO SCH ×2 (11:36→14:02)
--- NOTE | 2019-09-08 11:54 | HP ---
HISTORY AND PHYSICAL: DATE OF ADMISSION: 09/08/19 ADMITTING PROVIDER: Tunde Burt MD PRIMARY CARE PHYSICIAN: Trish Combs MD OUTPATIENT THORACIC SURGEON: Dr. Eddie Buckley of [facility]. OUTPATIENT TINWARE LITHOGRAPH PRESS OPERATOR: Dr. Rock Domínguez. CHIEF COMPLAINT: Severe upper abdomen and substernal pains, retching. HISTORY OF PRESENT ILLNESS: Isabel Prasad is a 64-year-old female with past medical history of severe end-stage achalasia with GJ tube and several surgeries ; failure to thrive; DVT; PE; TIA; gastroparesis; chronic pain; current smoking ; long-term opiate use; hyperlipidemia; CAD/AL, status post RCA stent; Fernández' s esophagus; hypertension. At around 1400, a day prior to admission, she developed progressively severe upper abdominal and substernal pains consistent with her prior history of attacks of her achalasia associated with nausea and dry heaving. They were not relieved with her high doses of opioid pain medications or Zofran at home. She presented to [facility] Emergency Room via EMS. She was noted to be extremely hypertensive with EMS 240/120. Initial workup has revealed continued high blood pressures, negative troponin, but some new T- wave inversions in III and aVF with some chronic ST depressions in lead II. She was given 20 of labetalol, 1 of Ativan, 5 of amlodipine p.o., 5 of Lopressor IV, 25 of metoprolol tartrate p.o. along with some pain medications, referred to hospitalist service for concern for EKG changes and flare of her severe achalasia. She states she has shortness of breath and cough, a little bit worse than usual. She has a frontal headache, which is also worse than usual. Denies any radiation of the chest pain into the arms, jaws, or back. She does get short of breath with exertion. Per outpatient records, she had an esophageal dilation back on 05/08/[address] Buckley and noted that the lower esophageal sphincter did not seem to be tight. She had a left heart catheterization on 02/13/19, which showed mid LAD 30% obstruction, diagonal 60% and 60% mid RCA in-stent restenosis, thought best medically managed. PAST MEDICAL HISTORY: Severe end-stage achalasia, status post GJ tube and multiple surgeries; gastroparesis; DVT; PE; coronary artery disease, status post PCI, AL, and stents to RCA; hyperlipidemia; TIA. She denies history of seizure disorder as listed in her chart previously. COPD with longtime smoking ; hypertension; Fernández's esophagus; GERD; right breast cancer. PAST SURGICAL HISTORY: PCI x2; Godwin fundoplication; hiatal hernia surgeries x2; bilateral mastectomy; partial hysterectomy; left knee replacement; bilateral shoulder surgeries; esophageal surgeries; status post appendectomy; multiple esophageal dilations, last was 05/08/19; right breast lumpectomy and port placement. MEDICATIONS: Include: 1. Vitamin B12 injection 1000 mcg IM monthly. 2. Plavix 75 mg daily. 3. Soma 350 mg p.o. q.i.d. p.r.n. 4. Ventolin 2 puffs inhaled q.4 hours p.r.n. 5. Metoprolol tartrate 12.5 to 25 mg p.o. b.i.d. 6. Losartan 100 mg p.o. daily. 7. Jevity 1200 cc daily. 8. Ativan 0.25 to 0.5 mg p.o. at bedtime p.r.n. 9. eyedrops both eyes b.i.d. p.r.n. 10. Imdur 30 mg p.o. daily. 11. Dilaudid 8 mg p.o. q.4 hours p.r.n. 12. Folic acid 1 mg p.o. daily. 13. Flonase 2 sprays both nares daily p.r.n. 14. Pepcid 20 mg daily p.r.n. 15. EpiPen p.r.n. 16. Zofran 4 mg p.o. q.8 hours p.r.n. 17. Nitroglycerin 0.4 mg sublingual q.5 minutes p.r.n. 18. Nicotine spray 2 mg nasal q.i.d. p.r.n. 19. Multivitamin 1 tab p.o. daily. 20. Benadryl 50 mg p.o. q.6 hours p.r.n. 21. Amlodipine 10 mg daily. 22. Protonix 40 mg p.o. daily. 23. Creon 1 capsule per G-tube p.r.n. for flushes. 24. Morphine sulfate 60 mg extended release t.i.d. 25. Spironolactone 25 mg daily. ALLERGIES: PENICILLIN, SHELLFISH, ADHESIVE TAPE, LASIX, NSAIDS, IV CONTRAST, BEE VENOM, ALBUMIN, FENTANYL, CHLORHEXIDINE. FAMILY HISTORY: Father of massive heart attack at age 52. Mother of heart disease with AL and AFib at age 83. She has had one brother who at age 60 of heart problems and one other brother had CHF and another brother has medical issues, which she does not go into the details of. SOCIAL HISTORY: The patient is a current smoker of about half pack per day with a [id number] history. Denies alcohol use. 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 She desires to be a full code. Her daughter, Ela Yates, is her medical surrogate, possibly also Viola. REVIEW OF SYSTEMS: A complete 14-point review of systems is negative except as per HPI. She states she has been able to swallow pills recently, not needing to use her GJ tube. She does not actually bring up with the vomitus, dry heaves. PHYSICAL EXAMINATION GENERAL APPEARANCE: Chronically ill appearing with cachexia. VITAL SIGNS: Temperature 97.4, pulse rate 81, satting 96% on room air, respiratory rate between 16 and 30, initial blood pressure 242/131, most recently 136/86. HEENT: Normocephalic, atraumatic. Pupils are equal, round, and reactive to light. Extraocular motions are intact. No scleral icterus. LUNGS: Clear to auscultation bilaterally with no wheezing, rales or rhonchi. CARDIOVASCULAR: Regular rate and rhythm. No murmurs, rubs or gallops. ABDOMEN: Soft, some diffuse tenderness to palpation, has GJ tube with brownish liquid. No surrounding erythema or drainage. No rebound or guarding. EXTREMITIES: Warm, well perfused. No peripheral edema. SKIN: No lesions. No rashes. DIAGNOSTIC STUDIES/LAB DATA: White count 8.9, hemoglobin 14.6, hematocrit 42, platelets 313. Sodium was 127, potassium hemolyzed, chloride 98, carbon dioxide of 18, BUN 19, creatinine 0.72, glucose 164, lactic acid 1.6, total bili 0.6, AST hemolyzed, ALT 10, alk phos 63, troponin 0.01, BNP 165, albumin 4.1. Chest x-ray demonstrated no acute active cardiopulmonary process. CT brain noncontrast demonstrated no acute intracranial findings. EKG demonstrated normal sinus rhythm, left anterior fascicular block, there are T-wave inversions in III and aVF. ASSESSMENT AND PLAN: Isabel Prasad is a 64-year-old female with severe end- stage achalasia, though no significant lower esophageal sphincter tightness on last dilatation and per Dr. Ovalles's note seemingly also the same on the one prior in the fall of 2018; failure to thrive; myocardial infarction/ coronary artery disease with residual coronary artery disease, last cath on with 60% mid RCA restenosis, deemed medically managed, though not on statin, presenting with again severe upper abdomen and substernal chest pain consistent with her prior episodes of achalasia, but with some T-wave inversions on her EKG, which are new and hypertensive urgency with blood pressure of 240/120 in the setting of active dry heaving and severe pain, which she rated 8/10. We are going to try to get her pain under control and continue her morphine extended release 60 mg t.i.d., change her to Dilaudid IV 2 mg q.3 hours p.r.n. for breakthrough/severe pain, continue Zofran 4 mg q.6 hours p.r.n. p.o. or IV if necessary, continue her Protonix 40 mg daily and Pepcid 20 mg daily. For the chest pain, trend troponin q.3 hours along with EKGs, get echocardiogram. Depending on clinical course, get GI or Cardiology involved. Her blood pressures have already improved to the 130s/80s. We will continue her metoprolol tartrate 25 mg p.o. b.i.d., next dose tonight; amlodipine 10 mg daily, next dose tomorrow; spironolactone 25 mg, next dose tomorrow or later in the day. If the blood pressures start to creep back up, will not drop her blood pressures too much further. We gave her atorvastatin 80 mg now and daily and aspirin 324 mg once, continue her Plavix. She is a full code. She may need to have her esophagus removed. The medical surrogate is her daughter, Viola or Ela Yates. For her diet, I am going to put her on IV fluids, LR at 80 cc an hour, hold her Jevity for now while she is actively dry heaving with hope to restart that as soon as possible. [id number]/[facility] #: [id number] INDIO
--- NOTE | 2019-09-08 15:44 | ECHO ---
*[facility]* [place] [address] Fax #: [phone] Transthoracic Echocardiogram Patient: Isabel Prasad : 1955 Study Date: 09/08/2019 Age: 64 Gender: F HR: 65 bpm Height: 67 in /170.2 cm BSA: 1.53 m^2 Weight: 103.8 lb /47.2 kg BMI: 16.3 kg/m^2 *Data Management Consultant: * Liss Diego [facility] *Referring Physician: * Tunde Burt *Reading Physician: * Eugene Talley MD Indications: Chest Pain, unspecified. Abnormal EKG. History: Coronary artery disease. Transient ischemic attack. Chronic obstructive pulmonary disease. Risk factors: Hypertension. Dyslipidemia. Labs, prior tests, procedures, and surgery: Catheterization. There was a stenosis which was treated with a stent. Conclusions Summary: - Left ventricle: The cavity size is below normal. Wall thickness is moderately increased. Systolic function is normal. The estimated ejection fraction is 60-65%. Wall motion is normal; there are no regional wall motion abnormalities. The outflow tract shows moderate hypertrophy, mild obstruction, and a velocity flow profile with a late systolic peak, typical of dynamic obstruction. - Right ventricle: Systolic function is normal. - Mitral valve: There is mild systolic anterior motion of the anterior leaflet and chordal structures. There is trace regurgitation. - Aortic valve: There is no evidence of stenosis. - Tricuspid valve: There is trace regurgitation. - Pulmonary arteries: Systolic pressure is within the normal range. - Cmpared to study of 11/17/18, there is no significant change. Study data: Transthoracic echocardiogram. Procedure: Transthoracic echocardiography was performed. Image quality was fair. Complete 2D, spectral Doppler, and color flow Doppler. Location: Bedside. Patient status: Inpatient. Patient room number: 443-02. Rhythm: Normal sinus rhythm. Findings Left ventricle: The cavity size is below normal. Wall thickness is moderately increased. Systolic function is normal. The estimated ejection fraction is 60-65%. Wall motion is normal; there are no regional wall motion abnormalities. The outflow tract shows moderate hypertrophy, mild obstruction, and a velocity flow profile with a late systolic peak, typical of dynamic obstruction. Peak velocity at left ventricle septal base is 2.0 m/s. And Peak velocity at mid left ventricle is 2.0 m/s. Doppler parameters are consistent with abnormal left ventricular relaxation (grade 1 diastolic dysfunction). Right ventricle: The cavity size is normal. The moderator band is in a normal position. Systolic function is normal. Systolic pressure is within the normal range. Left atrium: The atrium is moderately dilated. Right atrium: The atrium is normal in size. Mitral valve: The leaflets are mildly thickened. There is mild systolic anterior motion of the anterior leaflet and chordal structures. There is no evidence of stenosis. There is trace regurgitation. Aortic valve: The valve is trileaflet. The leaflets are mildly thickened. Thickening, consistent with sclerosis. There is no evidence of stenosis. There is no significant regurgitation. Tricuspid valve: The leaflets are normal thickness. There is no evidence of stenosis. There is trace regurgitation. Pulmonic valve: The leaflets are normal thickness. There is no evidence of stenosis. There is trace regurgitation. Aorta: Aortic root: The aortic root is appears normal. Ascending aorta: The ascending aorta is mildly dilated. Aortic arch: The aortic arch is poorly visualized. Pericardium: There is no significant pericardial effusion. Pulmonary arteries: The main pulmonary artery is normal-sized. Systolic pressure is within the normal range. Systemic veins: Inferior vena cava: The vessel is normal in size. There is (>= 50%) respiratory change in the IVC dimension. Measurements Left ventricle Value Ref Right atrium continued Value Ref AFRICA, LAX (L) 3.7 cm 3.8 - 5.2 SI dim, ES, A4C 4.6 cm 3.4 - 5.3 ESD, LAX 2.3 cm 2.2 - 3.5 Estimated RAP 3 mm Hg --------- FS, LAX 37 % 27 - 45 PW, ED, LAX (H) 1.3 cm 0.6 - 0.9 Aortic valve Value Ref FS 37 % 27 - 45 Shady diam, ED 2.2 cm --------- PW, ED (H) 1.3 cm 0.6 - 0.9 Peak v, S 1.99 m/sec --------- E', lat shady, TDI (L) 3.9 cm/sec >=10.0 VTI, S 34.4 cm -- ------- E/e', lat shady, 11 Mean grad, S 7.0 mm Hg ----- ---- TDI Peak grad, S 16.0 mm Hg --------- E', med shady, TDI (L) 4.0 cm/sec >=7.0 LVOT/AV, VTI ratio 0.7 -- ------- E/e', med shady, 11 TDI Mitral valve Value Ref E', avg, TDI 4.0 cm/sec Peak E 0.45 m/sec ----- ---- E/e', avg, TDI 11 <=14 Peak A 0.64 m/sec -- ------- Decel time 380 ms --------- LVOT Value Ref Peak E/A ratio 0.7 --------- Peak edgar, S 1.52 m/sec VTI, S 24.0 cm Pulmonic valve Value Ref Peak grad, S 9 mm Hg Peak v, S 0.9 m/sec --------- Mean grad, S 5 mm Hg Peak grad, S 3.0 mm Hg --------- Ventricular septum Value Ref Tricuspid valve Value Ref IVS, ED (H) 1.4 cm 0.6 - 0.9 TR peak v 2.1 m/sec <=2.8 Peak RV-RA grad, S 18 mm Hg --------- Right ventricle Value Ref AFRICA, LAX 3.2 cm Aortic root Value Ref AFRICA minor ax, A4C 3.3 cm 1.9 - 3.5 Root diam 3.5 cm <3.8 mid Pressure, S 21 mm Hg Ascending aorta Value Ref AAo AP diam, S 3.9 cm --------- Left atrium Value Ref AP dim, ES 2.80 cm 2.70 - Pulmonary artery Value Ref 3.80 Pressure, S 18.0 mm Hg --------- ML dim, A4C 4.2 cm SI dim, A4C 4.2 cm Inferior vena cava Value Ref Vol/bsa, ES, 1-p 28 ml/m^2 11 - 40 Diam 1.7 cm --------- A4C Vol/bsa, ES, A/L (H) 43 ml/m^2 16 - 34 Right atrium Value Ref SI dim, ES 4.6 cm 3.4 - 5.3 ML dim, ES, A4C 3.9 cm 2.6 - 4.4 Legend: (L) and (H) redd values outside specified reference range. Prepared and electronically signed by Eugene Talley MD 09/08/2019 15:44
[2019-09-08] MEDS ORDERED: Alteplase (CATHFLO)* 2 MG/2 ML VIAL IV ONE (16:04)
[2019-09-08 18:15] LABS: BUN/Creatinine Ratio 22.3 (8-20); Calcium 8.1 mg/dL (8.6-10.3); EGFR African American 72.5 (>60); Potassium 4.6 mmol/L (3.5-5.0)
[2019-09-08 18:17] LABS: Troponin I 0.01 ng/mL (<0.03)
[2019-09-09] MEDS ORDERED: Acetaminophen TAB* 325 MG PO PRN (01:48)
[2019-09-09] MEDS: HYDROmorphone INJ1* 1 MG/ML SYRINGE IV PRN ×6 (02:13→21:03)
[2019-09-09 08:10] LABS: Urine Appearance Clear; Urine Bilirubin Negative (Negative); Urine Blood Negative (Negative); Urine Color Yellow; Urine Glucose Negative (Negative); Urine Ketones Negative (Negative); Urine Nitrite Negative (Negative); Urine Protein Negative (Negative); Urine Specific Gravity 1.016 (1.010-1.030); Urine Urobilinogen Negative (Negative)
[2019-09-09] MEDS ORDERED: amLODIPine TAB* 5 MG PO SCH (09:00)
[2019-09-09] MEDS: Folic Acid TAB* 1 MG PO SCH (09:19)
[2019-09-09] MEDS: Famotidine TAB* 20 MG PO SCH (09:19)
[2019-09-09] MEDS: Clopidogrel TAB* 75 MG PO SCH (09:19)
[2019-09-09] MEDS: amLODIPine TAB* 5 MG PO SCH (09:19)
[2019-09-09] MEDS: Spironolactone TAB* 25 MG PO SCH (09:19)
[2019-09-09] MEDS: Pantoprazole TAB * 40 MG TAB PO SCH (09:20)
[2019-09-09] MEDS: Morphine TAB Extended Release (*) 30 MG TAB.ER PO SCH ×3 (09:20→21:02)
--- NOTE | 2019-09-09 10:21 | PN ---
Subjective Date of Service: 09/09/19 Interval History: Patient has chronic nausea and abdominal/chest pain at baseline. However, both are worse than her baseline this morning. The abdominal pain that radiates into chest is unchanged from yesterday. Her nausea is minimally improved and she is "heaving" less, but this is still persistent. She endorses symptomatic chills but denies rigors. Denies difficulty breathing, symptomatic fever. Tolerated clear liquid diet and is asking for regular diet and states, "I can just pick at what I want." Objective Active Medications: Acetaminophen (Tylenol Tab*) 650 mg PO Q6H PRN PRN Reason: PAIN - MILD Last Admin: 09/09/19 02:03 Dose: 650 mg Albuterol (Ventolin Hfa Inhaler*) 2 puff INH Q4H PRN PRN Reason: SHORTNESS OF BREATH Amlodipine Besylate (Norvasc Tab*) 5 mg PO DAILY [facility] Last Admin: 09/09/19 09:19 Dose: 5 mg Atorvastatin Calcium (Lipitor*) 80 mg PO 1700 [facility] Carisoprodol (Soma Tab*) 350 mg PO QID PRN PRN Reason: SPASMS - MUSCLE Last Admin: 09/08/19 21:10 Dose: 350 mg Clopidogrel Bisulfate (Plavix Tab*) 75 mg PO QAM [facility] Last Admin: 09/09/19 09:19 Dose: 75 mg Diphenhydramine HCl (Benadryl Po*) 50 mg PO Q6H PRN PRN Reason: ITCHING Famotidine (Pepcid Tab*) 20 mg PO DAILY [facility] Last Admin: 09/09/19 09:19 Dose: 20 mg Fluticasone Propionate (Flonase Nasal [place] 50mcg*) 2 spray BOTH NARES DAILY PRN PRN Reason: Allergy Symptoms Folic Acid (Folvite Tab*) 1 mg PO DAILY [facility] Last Admin: 09/09/19 09:19 Dose: 1 mg Heparin Sodium (Porcine) (Heparin Flush Port (Ivad)) 5 ml FLUSH DAILY PRN; Protocol PRN Reason: port Last Admin: 09/09/19 05:47 Dose: 5 ml Hydromorphone HCl (Dilaudid Inj1s*) 2 mg IV Q3H PRN PRN Reason: PAIN - SEVERE Last Admin: 09/09/19 09:00 Dose: 2 mg Isosorbide Mononitrate (Imdur Er Tab*) 30 mg PO DAILY [facility] Last Admin: 09/08/19 10:37 Dose: 30 mg Lorazepam (Ativan Tab(*)) 0.5 mg PO BEDTIME PRN PRN Reason: ANXIETY Metoprolol Tartrate (Lopressor Tab*) 25 mg PO BID [facility] Last Admin: 09/08/19 21:10 Dose: 25 mg Miscellaneous (Ativan Pyxis Guerra) 1 ea N/A .ATIVAN IV GUERRA PRN PRN Reason: PYXIS GUERRA Morphine Sulfate (Ms Contin(*)) 60 mg PO TID [facility] Last Admin: 09/09/19 09:20 Dose: 60 mg Nitroglycerin (Nitroglycerin Tab 0.4 Mg*) 0.4 mg SL Q5M PRN PRN Reason: chest pain Ondansetron HCl (Zofran Odt Tab*) 4 mg PO Q6H PRN PRN Reason: NAUSEA/VOMITING Last Admin: 09/08/19 17:47 Dose: 4 mg Pantoprazole Sodium (Protonix Tab*) 40 mg PO DAILY [facility] Last Admin: 09/09/19 09:20 Dose: 40 mg Spironolactone (Aldactone Tab*) 25 mg PO DAILY [facility] Last Admin: 09/09/19 09:19 Dose: 25 mg Vital Signs - 8 hr 09/09/19 09/09/19 09/09/19 03:08 03:13 05:46 Temperature 97.9 F Pulse Rate 51 Respiratory 16 16 18 Rate Blood Pressure 120/68 (mmHg) O2 Sat by Pulse 95 Oximetry 09/09/19 09/09/19 09/09/19 07:17 09:00 09:20 Temperature 97.7 F Pulse Rate 51 Respiratory 16 16 16 Rate Blood Pressure 119/70 (mmHg) O2 Sat by Pulse 96 Oximetry 09/09/19 09:30 Temperature Pulse Rate 63 Respiratory 18 Rate Blood Pressure 140/85 (mmHg) O2 Sat by Pulse 98 Oximetry Oxygen Devices in Use Now: None Appearance: Thin, white female who appears older than stated age, laying upright in hospital bed, appearing in NAD Eyes: No Scleral Icterus, - - PERRL Ears/Nose/Mouth/Throat: Mucous Membranes Moist Neck: NL Appearance and Movements; NL JVP Respiratory: Symmetrical Chest Expansion and Respiratory Effort, - - lung sounds are overall diminished but CTA Cardiovascular: NL Sounds; No Murmurs; No JVD, RRR Abdominal: - - PEG in place; abdomen is thin, soft, nontender, nondistended Extremities: No Edema, No Clubbing, Cyanosis Skin: No Rash or Ulcers Neurological: Alert and Oriented x 3, NL Muscle Strength and Tone Result Diagrams: 09/08/19 06:18 09/08/19 17:35 Additional Lab and Data: Lab Results 09/08/19 09/08/19 09/08/19 Range/Units 06:18 06:18 06:18 WBC 8.9 (3.5-10.8) 10^3/uL RBC 5.16 H (3.70-4.87) 10^6 /uL Hgb 14.6 (12.0-16.0) g/dL Hct 42 (35-47) % MCV 82 (80-97) fL MCH 28 (27-31) pg MCHC 35 (31-36) g/dL RDW 15 (10-15) % Plt Count 313 (150-450) 10^3/uL MPV 7.4 (7.4-10.4) fL Neut % (Auto) 89.3 % Lymph % (Auto) 6.6 % Chambers % (Auto) 3.7 % Eos % (Auto) 0.0 % Baso % (Auto) 0.4 % Absolute Neuts (auto) 7.9 H (1.5-7.7) 10^3/ul Absolute Lymphs (auto) 0.6 L (1.0-4.8) 10^3/ul Absolute Monos (auto) 0.3 (0-0.8) 10^3/ul Absolute Eos (auto) 0.0 (0-0.6) 10^3/ul Absolute Basos (auto) 0.0 (0-0.2) 10^3/ul Absolute Nucleated RBC 0.0 10^3/ul Nucleated RBC % 0.1 Sodium 127 L (135-145) mmol/L Potassium TNP Chloride 98 L (101-111) mmol/L Carbon Dioxide 18 L (22-32) mmol/L Anion Gap 11 (2-11) mmol/L BUN 19 (6-24) mg/dL Creatinine 0.72 (0.51-0.95) mg/dL Est GFR ( Amer) 98.7 (>60) Est GFR (Non-Af Amer) 81.6 (>60) BUN/Creatinine Ratio 26.4 H (8-20) Glucose 164 H (70-100) mg/dL Lactic Acid 1.6 (0.5-2.0) mmol/L Calcium 8.6 (8.6-10.3) mg/dL Total Bilirubin 0.60 (0.2-1.0) mg/dL AST TNP ALT 10 (7-52) U/L Alkaline Phosphatase 63 (34-104) U/L Troponin I 0.01 (<0.03) ng/mL B-Natriuretic Peptide (<=100) pg/mL Total Protein 7.5 (6.4-8.9) g/dL Albumin 4.1 (3.2-5.2) g/dL Globulin 3.4 (2-4) g/dL Albumin/Globulin Ratio 1.2 (1-3) 09/08/ Range/Units 06:18 WBC (3.5-10.8) 10^3/uL RBC (3.70-4.87) 10^6 /uL Hgb (12.0-16.0) g/dL Hct (35-47) % MCV (80-97) fL MCH (27-31) pg MCHC (31-36) g/dL RDW (10-15) % Plt Count (150-450) 10^3/uL MPV (7.4-10.4) fL Neut % (Auto) % Lymph % (Auto) % Chambers % (Auto) % Eos % (Auto) % Baso % (Auto) % Absolute Neuts (auto) (1.5-7.7) 10^3/ul Absolute Lymphs (auto) (1.0-4.8) 10^3/ul Absolute Monos (auto) (0-0.8) 10^3/ul Absolute Eos (auto) (0-0.6) 10^3/ul Absolute Basos (auto) (0-0.2) 10^3/ul Absolute Nucleated RBC 10^3/ul Nucleated RBC % Sodium (135-145) mmol/L Potassium Chloride (101-111) mmol/L Carbon Dioxide (22-32) mmol/L Anion Gap (2-11) mmol/L BUN (6-24) mg/dL Creatinine (0.51-0.95) mg/dL Est GFR ( Amer) (>60) Est GFR (Non-Af Amer) (>60) BUN/Creatinine Ratio (8-20) Glucose (70-100) mg/dL Lactic Acid (0.5-2.0) mmol/L Calcium (8.6-10.3) mg/dL Total Bilirubin (0.2-1.0) mg/dL AST ALT (7-52) U/L Alkaline Phosphatase (34-104) U/L Troponin I (<0.03) ng/mL B-Natriuretic Peptide 165 H (<=100) pg/mL Total Protein (6.4-8.9) g/dL Albumin (3.2-5.2) g/dL Globulin (2-4) g/dL Albumin/Globulin Ratio (1-3) Assess/Plan/Problems-Billing Assessment: 64 yo white female with PMHx end-stage achalasia with PEG tube, gastroparesis, chronic pain on chornic opiates, hx DVT/PE, CAD, HTN, COPD, and current tobacco use presents with sever abdomen pain which radiates into chest, nausea, and retching. - Patient Problems (1) Chest pain Current Visit: No Status: Acute Onset Date: 07/04/14 Code(s): R07.9 - CHEST PAIN, UNSPECIFIED SNOMED Code(s): 23179407 Comment: - Associated with abdominal pain and nausea as well - EKG with new T wave inversions in inferior leads, but troponins neg x 3 - Echo without wall motion abnormalities, low concern for cardiac etiology - Most likely 2/2 achalasia - Chest and abdominal pain unchanged from admission per patient; abdominal exam is benign (2) Hypertensive urgency Current Visit: Yes Status: Acute Code(s): I16.0 - HYPERTENSIVE URGENCY SNOMED Code(s): 768134601 Comment: -BP in ED wa 200s/110s. CT brain without acute abnormality -possibly related to severe pain -normotensive today -increased metoprolol tartrate to 25mg BID (was previously 25 in AM and 12.5 in PM) -given her hypertrophic cardiomyopathy, will decrease amlodipine to 5 mg and holding home losartan -continue spironolactone -continue to monitor (3) Achalasia Current Visit: No Status: Chronic Priority: High Code(s): K22.0 - ACHALASIA OF CARDIA SNOMED Code(s): 75575365 Comment: - continue home pain medications as discussed below - prn dilaudid - clear liquid diet for now, tolerating well - discussed with patient's thoracic surgeon in [place], Dr. Montes. She is not a candidate for any further surgeries. Patient has PEG and should be using it, but continues to eat for pleasure to the point of causing pain. Perhaps palliative consult would be of benefit. (4) Chronic pain Current Visit: No Status: Acute Code(s): G89.29 - OTHER CHRONIC PAIN SNOMED Code(s): 36529065 Comment: - Continue home ativan, morphine, and soma (5) CAD (coronary artery disease) Current Visit: No Status: Chronic Code(s): I25.10 - ATHSCL HEART DISEASE OF [place] CORONARY ARTERY W/O ANG PCTRS SNOMED Code(s): 75072341 Comment: - Continue clopidogrel, metoprolol, lipitor (6) COPD (chronic obstructive pulmonary disease) Current Visit: No Status: Chronic Code(s): J44.9 - CHRONIC OBSTRUCTIVE PULMONARY DISEASE, UNSPECIFIED SNOMED Code(s): 73071216 Comment: - No evidence of acute exacerbation. - Continue PRN albuterol. (7) Tobacco use disorder Current Visit: No Status: Chronic Code(s): Z72.0 - TOBACCO USE SNOMED Code (s): 196065396 Comment: - Ordered nicotine patch (8) TIA (transient ischemic attack) Current Visit: No Status: Suspected Priority: High Onset Date: 01/19/15 Comment: - prior hx of TIA - continue plavix and lipitor (9) DVT prophylaxis Current Visit: No Status: Acute Priority: Low Onset Date: 01/19/15 Code( s): GPU3812 - SNOMED Code(s): 059583549 Comment: - very high risk due to past DVT - SCDs and lovenox SQ (10) Full code status Current Visit: No Status: Acute Onset Date: 01/19/15 Code(s): Z78.9 - OTHER SPECIFIED HEALTH STATUS SNOMED Code(s): 097598378 Comment:
[2019-09-09] MEDS ORDERED: Enoxaparin(*) 40 MG/0.4 ML SYR SUBCUT SCH (11:00)
[2019-09-09] MEDS: Isosorbide Mononitrate ER TAB* 30 MG PO SCH (11:40)
[2019-09-09] MEDS: Metoprolol Tartrate TAB* 25 MG PO SCH ×3 (11:40→22:55)
[2019-09-09] MEDS: Carisoprodol TAB* 350 MG PO PRN ×2 (11:40→22:56)
[2019-09-09] MEDS: Ondansetron ODT TAB* 4 MG PO PRN (11:40)
[2019-09-09] MEDS ORDERED: Enoxaparin(*) 30 MG/0.3 ML SYR SUBCUT SCH (14:30)
[2019-09-09] MEDS ORDERED: Atorvastatin* 80 MG TAB PO SCH (17:00)
[2019-09-09] MEDS ORDERED: Nicotine Patch Removal NOTE FOLLOW UP SCH (21:00)
[2019-09-10] MEDS: HYDROmorphone INJ1* 1 MG/ML SYRINGE IV PRN ×3 (01:47→09:27)
[2019-09-10] MEDS ORDERED: Nicotine PATCH 21 MG/24 HR* PATCH TRANSDERM SCH (08:00)
[2019-09-10] MEDS ORDERED: Enoxaparin(*) 30 MG/0.3 ML SYR SUBCUT SCH (09:00)
[2019-09-10] MEDS: Morphine TAB Extended Release (*) 30 MG TAB.ER PO SCH (09:18)
[2019-09-10] MEDS: Folic Acid TAB* 1 MG PO SCH (09:19)
[2019-09-10] MEDS: Famotidine TAB* 20 MG PO SCH (09:19)
[2019-09-10] MEDS: Pantoprazole TAB * 40 MG TAB PO SCH (09:19)
[2019-09-10] MEDS: Clopidogrel TAB* 75 MG PO SCH (09:20)
[2019-09-10] MEDS: Spironolactone TAB* 25 MG PO SCH (09:21)
[2019-09-10] MEDS: amLODIPine TAB* 5 MG PO SCH (09:21)
[2019-09-10] MEDS: Isosorbide Mononitrate ER TAB* 30 MG PO SCH (09:22)
[2019-09-10] MEDS: Metoprolol Tartrate TAB* 25 MG PO SCH (09:22)
[2019-09-10 12:36] VITALS: BP 155/82
--- NOTE | 2019-09-11 00:38 | DS ---
DISCHARGE SUMMARY: DATE OF ADMISSION: 09/08/19. DATE OF DISCHARGE: 09/10/19. PROVIDER: CRISTINA Coronado. ATTENDING PROVIDER: Tin Olivera MD * (DICTATED BY CRISTINA CORONADO) PRIMARY CARE PROVIDER: Dr. Trish Combs. OUTPATIENT THORACIC SURGEON: Dr. Eddie Buckley of [facility]. PRIMARY DIAGNOSES: 1. Abdominal pain, substernal pain, and retching secondary to end-stage achalasia, really improved. 2. Hypertensive urgency, resolved. SECONDARY DIAGNOSES: 1. End-stage achalasia, status post GJ tube and multiple surgeries including esophageal dilation in May 2019. 2. Gastroparesis. 3. Deep venous thrombosis. 4. Pulmonary embolism. 5. Coronary artery disease, status post percutaneous coronary intervention to right coronary carotid artery. 6. Hyperlipidemia. 7. Transient ischemic attack. 8. Chronic obstructive pulmonary disease. 9. Hypertension. 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 11. Gastroesophageal reflux disease. 12. History of right breast cancer. 13. Tobacco use. PERTINENT STUDIES/LAB DATA: Troponin negative x3. Echocardiogram on 09/08/19, ejection fraction 60% to 65%, wall motion is normal. There are no regional wall motion abnormalities. The outflow retractor shows moderate hypertrophy, mild obstruction, velocity flow profile with a late systolic beat, typical of dynamic obstruction. Doppler parameters are consistent with abnormal left ventricular relaxation (grade 1 diastolic dysfunction). HISTORY OF PRESENT ILLNESS/HOSPITAL COURSE: Isabel Prasad is a 64-year-old female with severe end-stage achalasia with a GJ tube, gastroparesis, chronic pain, current smoking, and history of coronary artery disease, who presented to the emergency department on 09/08/19 due to severe upper abdominal pain and chest pain and retching. She, at baseline, has chronic upper abdominal pain and chest pain. She presented with pain that was worse on her baseline. The suspicion for ACS is quite low given that her troponins were negative x3 and she had no EKG changes and her echocardiogram did not demonstrate any wall motion abnormalities. Given that she was hypertensive at admission, her amlodipine was increased; however, given her obstructive cardiomyopathy, just discussed that increasing her metoprolol, it appears that once her pain was more well controlled, her hypertension resolved. I have personally discussed this patient's case with Dr. Buckley, who knows the patient well. He told me that they have had multiple conversations and he placed the GJ tube, so that she can eat for pleasure, but frequently advised her to use the tube feeds if she is feeling unwell and she does frequently eat to the point of making herself uncomfortable. By the day of discharge, the patient is feeling back to her baseline. Her pain is tolerable. She no longer has nausea or retching, both of these were resolved on 09/11/19 as well. She denies difficulty breathing with dizziness or lightheadedness, fever, chills, nausea, vomiting or abdominal pain greater than her baseline. The patient was offered nicotine patch during her hospital stay and she declined , and we did discuss smoking cessation and she is "working on it" by trying to decrease her cigar consumption. PHYSICAL EXAMINATION ON DAY OF DISCHARGE: General: Thin elderly appearing white female, lying upright in the hospital bed, appeared comfortable, in no acute distress. Appears older than stated age. Neck: Supple without JVD. Lungs : Clear to auscultation throughout. Abdomen: GJ tube in place, normoactive bowel sounds in all 4 quadrants. Abdomen is soft, nontender, nondistended. Extremities: No clubbing, cyanosis or edema. Neuro: The patient is alert and oriented x3. No focal deficits. Skin: Skin is warm, dry, and intact. DISCHARGE PLAN: Diet: Please use only tube feeds for the next 3 to 4 days or longer if symptoms not improving. Then advance diet slowly as tolerated. Activity: The patient may return to normal activity as tolerated. The patient should return to the emergency department if she is experiencing vomiting , severe abdominal pain, fever, chills, severe chest pain, difficulty breathing. The patient should follow up with her primary care provider. The patient is advised to check her blood pressure at home and record this to bring this data to her followup appointment with her primary care provider. Her blood pressure was overall well controlled after adjusting her medications and the changes are reflected below. She can follow up with her thoracic surgeon as regularly scheduled. DISCHARGE MEDICATIONS: Discontinued home medications: 1. Losartan 100 mg p.o. daily. 2. Metoprolol tartrate 12.5 mg p.o. q.a.m. and 25 mg p.o. q.p.m. New medications: 1. Metoprolol tartrate 25 mg p.o. b.i.d. 2. Lipitor 40 mg p.o. daily. Continued home medications: 1. Spironolactone 25 mg p.o. daily. 2. Morphine sulfate 60 mg p.o. t.i.d. p.r.n. severe pain. 3. Vitamin B12 injection of 1000 mg IM monthly. 4. Plavix 75 mg p.o. daily. 5. Soma 350 mg p.o. 4 times a day p.r.n. muscle spasms. 6. Albuterol HFA inhaler 2 puffs inhaled q.4 hours p.r.n. shortness of breath/ wheezing. 7. Jevity 1185 mL G-tube daily. 8. Ativan 0.25-0.5 mg p.o. bedtime p.r.n. anxiety. 9. Allergy eye drops 1 drop both eyes daily p.r.n. allergy symptoms. 10. Imdur 30 mg p.o. daily. 11. Dilaudid tab 8 mg p.o. q.4 hours p.r.n. pain. 12. Folic acid 1 mg p.o. daily. 13. Flonase nasal spray 2 sprays both nares daily p.r.n. allergy symptoms. 14. Famotidine 20 mg G-tube daily p.r.n. indigestion. 15. Epinephrine 0.3 mg IM once p.r.n. anaphylaxis. 16. Zofran 4 mg p.o. q.8 hours p.r.n. nausea. 17. Nitroglycerin 0.4 mg sublingual q.5 minutes p.r.n. angina. 18. Nicotine nasal spray 10 mg nasal 4 times a day p.r.n. cravings. 19. Multivitamin 1 tab p.o. daily. 20. Benadryl 50 mg p.o. q.6 hours p.r.n. itching. 21. Amlodipine 10 mg p.o. daily. 22. Protonix 40 mg p.o. daily. 23. Creon 1 cap G-tube p.r.n. for G-tube clog. CONDITION ON DISCHARGE: Improved. DISPOSITION: Home. TIME SPENT: Approximately 35 minutes were spent on this discharge, approximately half that time spent at the bedside evaluating the patient, discussing the plan of care. CRISTINA CORONADO [id number]/[facility] #: [id number] [place]
== END 2019-09-10 12:56 | disposition home or self-care (01) ==
LOC: ED 05:21 → MEDTELE 08:16 → OBSVTOIN 09-10 08:24 → INTOOBSV 09-10 08:24
PROVIDERS: ADMIT Internal Medicine; ATTEND Internal Medicine
DX: K22.0 Achalasia of cardia (principal); R10.9 Unspecified abdominal pain; I16.0 Hypertensive urgency; K31.84 Gastroparesis; I82.409 Acute embolism and thrombosis of unspecified deep veins of unspecified lower extremity; I26.99 Other pulmonary embolism without acute cor pulmonale; I25.10 Atherosclerotic heart disease of native coronary artery without angina pectoris; I10 Essential (primary) hypertension; Z86.73 Personal history of transient ischemic attack (TIA), and cerebral infarction without residual deficits; K22.70 Barrett's esophagus without dysplasia; K21.9 Gastro-esophageal reflux disease without esophagitis; Z85.3 Personal history of malignant neoplasm of breast; Z72.0 Tobacco use; Z79.899 Other long term (current) drug therapy; R07.9 Chest pain, unspecified; Z93.1 Gastrostomy status
CPT/HCPCS: 36415; 70450; 71045; 80048; 80053; 81003; 83605; 83735; 83880; 84484; 85025; 86140; 87040; 93005; 93306; 96365; 96366; 96372; 96375; 96376; 99285; A9270-GY; G0378; J1170; J1642; J1650; J2060; J2405; J2997; J3475; J3490

== ENCOUNTER 2019-09-18 14:34 | Emergency (ER) | payer OTHER ==
[2019-09-18] MEDS ORDERED: NS 0.9% 1000 ML** 1,000 ML IV ONE (14:48)
[2019-09-18] MEDS ORDERED: Ondansetron INJ* 2 MG/ML VIAL IV ONE (14:48)
[2019-09-18] MEDS ORDERED: Morphine 4 MG/ML VIAL (1 ml) 4 MG/ML VIAL IV ONE ×3 (14:50→17:52)
--- NOTE | 2019-09-18 14:52 | ED ---
Abdominal Pain/Female - HPI Summary HPI Summary: 64 year old female presents to the ED by EMS for diffuse abdominal pain starting 3 days ago. Per pt, pain is 10/10. She reports dry heaving and gross myalgia. Denies diarrhea, cough, difficulty swallowing and congestion. Per EMS, patient was unable to remember identifying information, which is abnormal from baseline. Patient has a GJ feeding tube. Patient last ate yesterday dinner (PO) , last bowel movement was yesterday. Hx of achalasia, 2 HI's, and HTN. No Hx DM. - History of Current Complaint Stated Complaint: STOMACH PAIN PER EMS Time Seen by Provider: 09/18/19 14:36 Hx Obtained From: Patient ?: No Onset/Duration: Lasting Days - 3 days, Still Present Timing: Constant Severity Initially: Moderate Severity Currently: Severe Pain Intensity: 10 Pain Scale Used: 0-10 Numeric Location: Diffuse Aggravating Factor(s): Nothing Alleviating Factor(s): Nothing Associated Signs and Symptoms: Negative: Cough Allergies/Adverse Reactions: Allergies Allergy/AdvReac Type Severity Reaction Status Date / Time albumin colloid, human Allergy Severe Anaphylatic Verified 08/24/19 13:06 Shock bee venom protein (honey bee) Allergy Severe Anaphylatic Verified 08/24/19 13:06 Shock Iodinated Contrast Media Allergy Severe Anaphylatic Verified 08/24/19 13:06 [Iodinated Contrast- Oral Shock and IV Dye] onabotulinumtoxinA Allergy Severe Anaphylatic Verified 08/24/19 13:06 [From Botox] Shock Penicillins Allergy Severe Anaphylatic Verified 08/24/19 13:06 Shock shellfish derived Allergy Severe Anaphylatic Verified 08/24/19 13:06 Shock Adhesive Tape Allergy Mild Itching Verified 08/24/19 13:06 chlorhexidine Allergy Mild Rash And Verified 08/24/19 13:06 Itching latex Allergy Mild Hives Verified 08/24/19 13:06 NSAIDS (Non-Steroidal Allergy Mild Hives Verified 08/24/19 13:06 Anti-Inflamma povidone-iodine Allergy Mild Itching Verified 08/24/19 13:06 fentanyl Allergy Hallucinati Verified 08/24/19 13:06 ons Gadolinium-Containing Allergy Itching Verified 08/24/19 13:06 Contrast Medi ENVIRONMENTAL/SEASONAL Allergy Mild ITCHY,WATERY Uncoded 05/27/19 10:29 HAYFEVER EYES, SNEEZE, CONGESTION PMH/Surg Hx/FS Hx/Imm Hx Endocrine/Hematology History: Reports: Hx Anticoagulant Therapy - plavix, Hx Anemia - possible Denies: Hx Diabetes, Hx Thyroid Disease Cardiovascular History: Reports: Hx Angina - has prn nitro, Hx Coronary Artery Disease - 2 stents- RCA stent 2006, LAD stent 2007, Hx Deep Vein Thrombosis, Hx Embolism, Hx Hypercholesterolemia, Hx Hypertension, Hx Myocardial Infarction, Hx Syncope, Other Cardiovascular Problems/Disorders - cardiac cath Denies: Hx Congestive Heart Failure, Hx Pacemaker/ICD, Hx Valvular Heart Disease Respiratory History: Reports: Hx Chronic Obstructive Pulmonary Disease (COPD) - Pt denies though providers have diagnosed it, Hx Pneumonia, Hx Pulmonary Embolism - and DVT 30 yrs ago, Hx Seasonal Allergies, Other Respiratory Problems /Disorders - SMOKER Denies: Hx Asthma, Hx Sleep Apnea GI History: Reports: Hx Diverticulosis, Hx Gastroesophageal Reflux Disease, Hx Hiatal Hernia - 3 surgeries, Other GI Disorders - achalasia, Fernández's esophagus , gastroparesis, J tube Denies: Hx Ulcer History: Reports: Hx Kidney Infection, Hx Kidney Stones - LAST 12/2015- NO PROBLEMS SINCE PER PATIENT Denies: Hx Dialysis, Hx Renal Disease, Other Problems/Disorders Musculoskeletal History: Reports: Hx Back Problems, Other Musculoskeletal History - L1 fx Denies: Hx Arthritis, Hx Osteoporosis Sensory History: Reports: Hx Cataracts - bilat cataracts Denies: Hx Contacts or Glasses, Hx Hearing Aid Opthamlomology History: Reports: Hx Cataracts - bilat cataracts Denies: Hx Contacts or Glasses Neurological History: Reports: Hx Spinal Cord Injury - L1, Hx Transient Ischemic Attacks (TIA) - 10/2017 [facility] [place] Psychiatric History: Reports: Hx Anxiety Denies: Hx Panic Disorder - Cancer History Cancer Type, Location and Year: RT BREAST CA, 2009 HAD A BILATERAL MASTECTOMY Hx Chemotherapy: No Hx Radiation Therapy: No - Surgical History Surgery Procedure, Year, and Place: RT LUMPECTOMY 02/2010, BILATERAL MASTECTOMY ,. 2006& 2007 CARDIAC STENT AT [facility] IN [place],. LEFT KNEE SURGERY X10,. BILATERAL SHOULDER SURGERY,. ESPOHOGEAL SURGERY,1996, 2015. failed breast implant on left. PARTIAL HYSTERECTOMY, 1976. APPENDIX A CHILD,. CHEST TUBE, 1996. ESOPHAGEAL DILATION. NISSIN FUNDOLPICATION multiple. total left knee replacement 2016. kidney stone surgery. left chest wound surgery 2010. Insertion Infusaport 02/2018 Hx Anesthesia Reactions: No - Immunization History Date of Tetanus Vaccine: utd Date of Influenza Vaccine: fall 2016 Infectious Disease History: Reports: Hx Clostridium Difficile Denies: Hx Hepatitis, Hx Human Immunodeficiency Virus (HIV), Hx of Known/ Suspected MRSA, Hx Shingles, Hx Tuberculosis, Hx Known/Suspected VRE, Hx Known/ Suspected VRSA, History Other Infectious Disease - Family History Known Family History: Positive: Cardiac Disease - Father, 2 brothers - [place]. Mother - AFIB, Hypertension, Diabetes - Social History Alcohol Use: None Hx Substance Use: No Substance Use Type: Reports: None Substance Use Comment - Amount & Last Used: prescribed Hx Tobacco Use: Yes Smoking Status (MU): Current Every Day Smoker Type: Cigarettes Amount Used/How Often: 1/2 PPD Length of Time of Smoking/Using Tobacco: 40+ YEARS Have You Smoked in the Last Year: No Review of Systems Negative: Sore Throat, Other - congestion Negative: Shortness Of Breath, Cough Positive: Abdominal Pain, Vomiting - dry. Negative: Diarrhea Positive: Myalgia All Other Systems Reviewed And Are Negative: Yes Physical Exam - Summary Physical Exam Summary: Constitutional: Well-developed, Well-nourished, Alert. (-) Distressed Skin: Warm, Dry HENT: Normocephalic; Atraumatic Eyes: Conjunctiva normal Neck: Musculoskeletal ROM normal neck. (-) JVD, (-) Stridor, (-) Tracheal deviation Cardio: Rhythm regular, rate normal, Heart sounds normal; Intact distal pulses; The pedal pulses are 2+ and symmetric. Radial pulses are 2+ and symmetric. (-) Murmur Pulmonary/Chest wall: Effort normal. (-) Respiratory distress, (-) Wheezes, (-) Rales Abd: Soft, generalized tenderness, (-) Distension, (-) Guarding, (-) Rebound. GJ tube in place. No erythema or perineal discharge at ostomy site. Musculoskeletal: (-) Edema Lymph: (-) Cervical adenopathy Neuro: Alert, Oriented x3 Psych: Mood and affect Normal Triage Information Reviewed: Yes Vital Signs Reviewed: Yes Procedures - Sedation Patient Received Moderate/Deep Sedation with Procedure: No Diagnostics - Laboratory Result Diagrams: 09/18/19 15:10 09/18/19 15:10 Lab Statement: Any lab studies that have been ordered have been reviewed, and results considered in the medical decision making process. - Radiology ABD XR Radiology Interpretation Completed By: Radiologist Summary of Radiographic Findings: ABD XR IMPRESSION: No free air is noted. Gastrostomy tube appears in place. An ED physician has reviewed this report. - EKG No standard instances Cardiac Rate: NL EKG Rhythm: Sinus Rhythm ST Segment: Normal Ectopy: None Summary of EKG Findings: An ED physician has reviewed and interpreted this EKG. Abdominal Pain Fem Course/Dx - Course Course Of Treatment: 64 year old female presents to the ED by EMS for diffuse abdominal pain starting 3 days ago. Per pt, pain is 10/10. She reports dry heaving and gross myalgia. Denies diarrhea, cough, difficulty swallowing and congestion. Per EMS, patient was unable to remember identifying information, which is abnormal from baseline. Patient has a GJ feeding tube. Patient last ate yesterday dinner (PO), last bowel movement was yesterday. Hx of achalasia, 2 HI's, and HTN. No Hx DM. Abdomen soft with a GJ tube in place. No erythema or perineal discharge at ostomy site. Generalized abdominal tenderness. Lab results show potassium 3.1, BUN/creatinine ratio 26.2, AST 12, and lipase 10. EKG normal. ABD XR IMPRESSION: No free air is noted. Gastrostomy tube appears in place. During ED course patient was given heparin, hydralazine, morphine, fluids, and ondansetron. Diagnoses are abdominal pain and hypertension. Patient is feeling better and will be discharged home, follow up with PCP within 3 days. Patient was told to return to the ED for new or worsened symptoms. Pt understands and agrees with this plan. Discharge ED - Sign-Out/Discharge Documenting (check all that apply): Patient Departure - dc - Discharge Plan Condition: Stable Disposition: HOME Patient Education Materials: Acute Abdominal Pain (ED), Hypertension (ED) Referrals: Trish Combs MD [Primary Care Provider] - Additional Instructions: Follow up with your primary care provider in 2-3 days. Return to the Emergency Department if you experience new or worsened symptoms. - Billing Disposition and Condition Condition: STABLE Disposition: Home - Attestation Statements Document Initiated by Scribe: Yes Documenting Scribe: Colby Sahu Provider For Whom Scribe is Documenting (Include Credential): Tyler White DO Scribe Attestation: IColby, scribed for Tyler White DO on 09/18/19 at 1835. Status of Scribe Document: Viewed
[2019-09-18 15:26] LABS: ABS Basophils 0.1 10^3/ul (0-0.2); ABS Lymphocytes 1.4 10^3/ul (1.0-4.8); ABS Monocytes 0.4 10^3/ul (0-0.8); ABS Neutrophils 5.1 10^3/ul (1.5-7.7); Eosinophil % 0.5 %; Hematocrit 37 % (35-47); Hemoglobin 12.3 g/dL (12.0-16.0); Lymphocyte % 19.8 %; Mean Corpuscular HGB Conc 34 g/dL (31-36); Mean Corpuscular Hemoglobin 28 pg (27-31); Mean Corpuscular Volume 83 fL (80-97); Mean Platelet Volume 7.4 fL (7.4-10.4); Platelet Count 315 10^3/uL (150-450); Red Blood Count 4.42 10^6 /uL (3.70-4.87); Red Cell Distribution Width 15 % (10-15); White Blood Count 7.1 10^3/uL (3.5-10.8)
[2019-09-18 15:49] LABS: Albumin 3.5 g/dL (3.2-5.2); Albumin/Globulin Ratio 1.1 (1-3); BUN/Creatinine Ratio 26.2 (8-20); Calcium 8.6 mg/dL (8.6-10.3); EGFR African American 119.5 (>60); EGFR Non-African American 98.7 (>60); Globulin 3.1 g/dL (2-4); Potassium 3.1 mmol/L (3.5-5.0); Total Bilirubin 0.3 mg/dL (0.2-1.0); Total Protein 6.6 g/dL (6.4-8.9)
[2019-09-18] MEDS ORDERED: NS 0.9% 500 ML* 500 ML IV ONE (16:31)
[2019-09-18] MEDS ORDERED: hydrALAZINE IV* 20 MG/ML VIAL IV SLOW PU ONE (17:17)
[2019-09-18 18:23] VITALS: BP 165/94
== END 2019-09-18 18:22 | disposition home or self-care (01) ==
LOC: ED 14:34
DX: R10.9 Unspecified abdominal pain (principal); I10 Essential (primary) hypertension; Z93.1 Gastrostomy status; I25.2 Old myocardial infarction; I25.10 Atherosclerotic heart disease of native coronary artery without angina pectoris; E78.00 Pure hypercholesterolemia, unspecified; J44.9 Chronic obstructive pulmonary disease, unspecified; K21.9 Gastro-esophageal reflux disease without esophagitis; F41.9 Anxiety disorder, unspecified; F17.210 Nicotine dependence, cigarettes, uncomplicated; Z87.442 Personal history of urinary calculi; Z86.718 Personal history of other venous thrombosis and embolism; Z90.13 Acquired absence of bilateral breasts and nipples; Z95.5 Presence of coronary angioplasty implant and graft; Z90.711 Acquired absence of uterus with remaining cervical stump; Z96.652 Presence of left artificial knee joint; Z79.01 Long term (current) use of anticoagulants; Z88.5 Allergy status to narcotic agent; Z88.0 Allergy status to penicillin; Z88.8 Allergy status to other drugs, medicaments and biological substances; Z91.041 Radiographic dye allergy status; Z91.040 Latex allergy status
CPT/HCPCS: 36415; 74019; 80053; 83690; 84484; 85025; 93005; 96361; 96374; 96375; 96376; 99283; J0360; J1642; J2270; J2405

== ENCOUNTER 2019-10-25 17:54 | Inpatient (IN) | payer OTHER ==
[2019-10-25 19:04] LABS: ABS Basophils 0.1 10^3/ul (0-0.2); ABS Eosinophils 0.1 10^3/ul (0-0.6); ABS Lymphocytes 1.2 10^3/ul (1.0-4.8); ABS Neutrophils 10.5 10^3/ul (1.5-7.7); Eosinophil % 0.7 %; Hematocrit 35 % (35-47); Hemoglobin 11.7 g/dL (12.0-16.0); Lymphocyte % 9.1 %; Mean Corpuscular HGB Conc 33 g/dL (31-36); Mean Corpuscular Hemoglobin 27 pg (27-31); Mean Corpuscular Volume 82 fL (80-97); Mean Platelet Volume 7.3 fL (7.4-10.4); Platelet Count 321 10^3/uL (150-450); Red Blood Count 4.27 10^6 /uL (3.70-4.87); Red Cell Distribution Width 16 % (10-15); White Blood Count 12.9 10^3/uL (3.5-10.8)
[2019-10-25] MEDS ORDERED: Labetalol IV* 5 MG/ML 20 ML VIAL IV PUSH ONE (19:07)
[2019-10-25 19:18] LABS: ALT 10 U/L (7-52); AST 17 U/L (13-39); Albumin/Globulin Ratio 1.3 (1-3); Alkaline Phosphatase 67 U/L (34-104); Anion Gap 12 mmol/L (2-11); BUN/Creatinine Ratio 22.2 (8-20); Blood Urea Nitrogen 22 mg/dL (6-24); CO2 Carbon Dioxide 23 mmol/L (22-32); Calcium 9.3 mg/dL (8.6-10.3); Chloride 99 mmol/L (101-111); EGFR African American 68.3 (>60); EGFR Non-African American 56.5 (>60); Globulin 3.1 g/dL (2-4); Glucose 95 mg/dL (70-100); Potassium 3.9 mmol/L (3.5-5.0); Sodium 134 mmol/L (135-145); Total Protein 7.1 g/dL (6.4-8.9)
--- NOTE | 2019-10-25 19:28 | ED ---
Altered Mental Status - HPI Summary HPI Summary: Pt is a 64 y/o F presenting to the ED brought in by EMS for altered mental status. Per pts family friend who is staff at [facility], the pts neighbor called her saying that the pt was hallucinating. The pt allegedly said she saw her mother, other family members, a dog, and the dogs three owners, over the course of the past 24 hours. She also has multiple medications at home, and has accidentally overdosed in the past. Reportedly, the hallucinations were after taking Benadryl, which the pt has taken before w/o issues. Patient AAOx3 in room , intermittently drowsy. Pt currently complains of pain in her lower back from a fall a month and a half ago. She reports chills and anxiety. - History Of Current Complaint Chief Complaint: EDAltMentalStatus Stated Complaint: MHE PER EMS Time Seen by Provider: 10/25/19 18:03 Hx Obtained From: Patient - friend Hx From Patient Unobtainable Due To: Altered Mental Status Onset/Duration: Still Present, Gradually Timing: Constant, Lasting Hours Severity Initially: Moderate Severity Currently: Moderate Character: Confusion Aggravating Factor(s): Other - benadryl, reportedly Alleviating Factor(s): Nothing Associated Signs And Symptoms: Positive: Negative - Allergies/Home Medications Allergies/Adverse Reactions: Allergies Allergy/AdvReac Type Severity Reaction Status Date / Time albumin colloid, human Allergy Severe Anaphylatic Verified 10/25/19 18:12 Shock bee venom protein (honey bee) Allergy Severe Anaphylatic Verified 10/25/19 18:12 Shock Iodinated Contrast Media Allergy Severe Anaphylatic Verified 10/25/19 18:12 [Iodinated Contrast- Oral Shock and IV Dye] onabotulinumtoxinA Allergy Severe Anaphylatic Verified 10/25/19 18:12 [From Botox] Shock Penicillins Allergy Severe Anaphylatic Verified 10/25/19 18:12 Shock shellfish derived Allergy Severe Anaphylatic Verified 10/25/19 18:12 Shock Adhesive Tape Allergy Mild Itching Verified 10/25/19 18:12 chlorhexidine Allergy Mild Rash And Verified 10/25/19 18:12 Itching latex Allergy Mild Hives Verified 10/25/19 18:12 NSAIDS (Non-Steroidal Allergy Mild Hives Verified 10/25/19 18:12 Anti-Inflamma povidone-iodine Allergy Mild Itching Verified 10/25/19 18:12 oxycodone Allergy Unknown Unknown Verified 10/27/19 02:01 Reaction Details fentanyl Allergy Hallucinati Verified 10/25/19 18:12 ons Gadolinium-Containing Allergy Itching Verified 10/25/19 18:12 Contrast Medi ENVIRONMENTAL/SEASONAL Allergy Mild ITCHY,WATERY Uncoded 05/27/19 10:29 HAYFEVER EYES, SNEEZE, CONGESTION Home Medications: Home Medications Losartan Potassium 100 mg PO DAILY 10/25/19 [History Confirmed 10/25/19] PMH/Surg Hx/FS Hx/Imm Hx Previously Healthy: Yes Endocrine/Hematology History: Reports: Hx Anticoagulant Therapy - plavix, Hx Anemia - possible Denies: Hx Diabetes, Hx Thyroid Disease Cardiovascular History: Reports: Hx Angina - has prn nitro, Hx Coronary Artery Disease - 2 stents- RCA stent 2006, LAD stent 2007, Hx Deep Vein Thrombosis, Hx Embolism, Hx Hypercholesterolemia, Hx Hypertension, Hx Myocardial Infarction, Hx Syncope, Other Cardiovascular Problems/Disorders - cardiac cath Denies: Hx Congestive Heart Failure, Hx Pacemaker/ICD, Hx Valvular Heart Disease Respiratory History: Reports: Hx Chronic Obstructive Pulmonary Disease (COPD) - Pt denies though providers have diagnosed it, Hx Pneumonia, Hx Pulmonary Embolism - and DVT 30 yrs ago, Hx Seasonal Allergies, Other Respiratory Problems /Disorders - SMOKER Denies: Hx Asthma, Hx Sleep Apnea GI History: Reports: Hx Diverticulosis, Hx Gastroesophageal Reflux Disease, Hx Hiatal Hernia - 3 surgeries, Other GI Disorders - achalasia, Fernández's esophagus , gastroparesis, J tube Denies: Hx Ulcer History: Reports: Hx Kidney Infection, Hx Kidney Stones - LAST 12/2015- NO PROBLEMS SINCE PER PATIENT Denies: Hx Dialysis, Hx Renal Disease, Other Problems/Disorders Musculoskeletal History: Reports: Hx Back Problems, Other Musculoskeletal History - L1 fx Denies: Hx Arthritis, Hx Osteoporosis Sensory History: Reports: Hx Cataracts - bilat cataracts Denies: Hx Contacts or Glasses, Hx Hearing Aid Opthamlomology History: Reports: Hx Cataracts - bilat cataracts Denies: Hx Contacts or Glasses Neurological History: Reports: Hx Spinal Cord Injury - L1, Hx Transient Ischemic Attacks (TIA) - 10/2017 [facility] Psychiatric History: Reports: Hx Anxiety Denies: Hx Panic Disorder - Cancer History Cancer Type, Location and Year: RT BREAST CA, 2009 HAD A BILATERAL MASTECTOMY Hx Chemotherapy: No Hx Radiation Therapy: No - Surgical History Surgery Procedure, Year, and Place: RT LUMPECTOMY 02/2010, BILATERAL MASTECTOMY ,. 2006& 2007 CARDIAC STENT AT [facility] IN [place],. LEFT KNEE SURGERY X10,. BILATERAL SHOULDER SURGERY,. ESPOHOGEAL SURGERY,1996, 2015. failed breast implant on left. PARTIAL HYSTERECTOMY, 1976. APPENDIX A CHILD,. CHEST TUBE, 1996. ESOPHAGEAL DILATION. NISSIN FUNDOLPICATION multiple. total left knee replacement 2015. kidney stone surgery. left chest wound surgery 2010. Insertion Infusaport 02/2018 Hx Anesthesia Reactions: No - Immunization History Date of Tetanus Vaccine: utd Date of Influenza Vaccine: fall 2016 Infectious Disease History: No Infectious Disease History: Reports: Hx Clostridium Difficile Denies: Hx Hepatitis, Hx Human Immunodeficiency Virus (HIV), Hx of Known/ Suspected MRSA, Hx Shingles, Hx Tuberculosis, Hx Known/Suspected VRE, Hx Known/ Suspected VRSA, History Other Infectious Disease, Traveled Outside the [place] in Last 30 Days - Family History Known Family History: Positive: Cardiac Disease - Father, 2 brothers - [place]. Mother - AFIB, Hypertension, Diabetes - Social History Alcohol Use: None Hx Substance Use: No Substance Use Type: Reports: None Substance Use Comment - Amount & Last Used: prescribed Hx Tobacco Use: Yes Smoking Status (MU): Current Every Day Smoker Type: Cigarettes Amount Used/How Often: 1/2 PPD Length of Time of Smoking/Using Tobacco: 40+ YEARS Have You Smoked in the Last Year: No Review of Systems Positive: Chills Positive: Myalgia - back pain Neurological: Other - hallucinations Positive: Anxious All Other Systems Reviewed And Are Negative: Yes Physical Exam - Summary Physical Exam Summary: Constitutional: Thin, Alert. Tearful Skin: Warm, Dry HENT: Normocephalic; Atraumatic Eyes: Conjunctiva normal Neck: Musculoskeletal ROM normal neck. (-) JVD, (-) Stridor, (-) Nuchal rigidity Cardio: Rhythm regular, rate normal, Heart sounds normal; Intact distal pulses; Radial pulses are 2+ and symmetric. (-) Murmur Pulmonary/Chest wall: Port L chest wall. S/p L mastectomy. Effort normal. (-) Respiratory distress, (-) Wheezes, (-) Rales Abd: Soft, (-) tenderness, (-) Distension, (-) Guarding, (-) Rebound +gtube intact Musculoskeletal: (-) Edema. Tenderness lumbar spine Lymph: (-) Cervical adenopathy Neuro: Oriented x3, intermittently somnolent. Psych: tearful, anxious Triage Information Reviewed: Yes Vital Signs On Initial Exam: Initial Vitals Temp Pulse Resp BP Pulse Ox 98.6 F 76 18 215/105 91 10/25/19 18:08 10/25/19 18:08 10/25/19 18:08 10/25/19 18:08 10/25/19 18:08 Vital Signs Reviewed: Yes - Teresa Coma Scale Best Eye Response: 4 - Spontaneous Best Motor Response: 6 - Obeys Commands Best Verbal Response: 5 - Oriented Coma Scale Total: 15 Procedures - Sedation Patient Received Moderate/Deep Sedation with Procedure: No Diagnostics - Vital Signs Vital Signs Temp Pulse Resp BP Pulse Ox 10/25/19 18:08 98.6 F 76 18 215/105 91 - Laboratory Lab Results: Lab Results 10/25/19 10/25/19 Range/Units 18:55 18:55 WBC 12.9 H (3.5-10.8) 10^3/uL RBC 4.27 (3.70-4.87) 10^6 /uL Hgb 11.7 L (12.0-16.0) g/dL Hct 35 (35-47) % MCV 82 (80-97) fL MCH 27 (27-31) pg MCHC 33 (31-36) g/dL RDW 16 H (10-15) % Plt Count 321 (150-450) 10^3/uL MPV 7.3 L (7.4-10.4) fL Neut % (Auto) 81.5 % Lymph % (Auto) 9.1 % [place] % (Auto) 8.0 % Eos % (Auto) 0.7 % Baso % (Auto) 0.7 % Absolute Neuts (auto) 10.5 H (1.5-7.7) 10^3/ul Absolute Lymphs (auto) 1.2 (1.0-4.8) 10^3/ul Absolute Monos (auto) 1.0 H (0-0.8) 10^3/ul Absolute Eos (auto) 0.1 (0-0.6) 10^3/ul Absolute Basos (auto) 0.1 (0-0.2) 10^3/ul Absolute Nucleated RBC 0.0 10^3/ul Nucleated RBC % 0.0 Sodium 134 L (135-145) mmol/L Potassium 3.9 (3.5-5.0) mmol/L Chloride 99 L (101-111) mmol/L Carbon Dioxide 23 (22-32) mmol/L Anion Gap 12 H (2-11) mmol/L BUN 22 (6-24) mg/dL Creatinine 0.99 H (0.51-0.95) mg/dL Est GFR ( Amer) 68.3 (>60) Est GFR (Non-Af Amer) 56.5 (>60) BUN/Creatinine Ratio 22.2 H (8-20) Glucose 95 (70-100) mg/dL Calcium 9.3 (8.6-10.3) mg/dL Total Bilirubin 0.80 (0.2-1.0) mg/dL AST 17 (13-39) U/L ALT 10 (7-52) U/L Alkaline Phosphatase 67 (34-104) U/L Total Protein 7.1 (6.4-8.9) g/dL Albumin 4.0 (3.2-5.2) g/dL Globulin 3.1 (2-4) g/dL Albumin/Globulin Ratio 1.3 (1-3) TSH Pending Salicylates Pending Acetaminophen Pending Serum Alcohol Pending Result Diagrams: 10/27/19 06:10 10/27/19 06:10 Lab Statement: Any lab studies that have been ordered have been reviewed, and results considered in the medical decision making process. - Radiology CXR Radiology Interpretation Completed By: ED Physician Summary of Radiographic Findings: No acute abnormality. Pending official radiology report. Lumbar spine XR Radiology Interpretation Completed By: ED Physician Summary of Radiographic Findings: No fracture. Pending official radiology report. - CT Brain CT CT Interpretation Completed By: Radiologist Summary of CT Findings: No acute intracranial findings or significant change since prior. ED physician has reviewed this report. - EKG 2103 Cardiac Rate: NL - 71bpm EKG Rhythm: Sinus Rhythm ST Segment: Normal Ectopy: None EKG Comparison: No Significant Change Summary of EKG Findings: An EKG at 2103 reveals normal sinus rhythm 71bpm with L anterior fascicular block and T-wave inversions in leads III and v1-v3, from 09/18/19. No STEMI. No acute changes. ED physician has reviewed and interpreted this EKG. Re-Evaluation - Re-Evaluation 1st re-eval Re-Evaluation Time: 20:50 Change: Unchanged Comment: Pt complaining of chest pain. Troponin and EKG ordered. Altered Mental Statu Course/Dx - Course Course Of Treatment: 64 y/o F w hx achalasia, breast cancer, opiate use, hypertension who presents with altered mental status. Given that this patient has normal BG hypoglycemia/DKA less likely. DDx still includes: alcohol, electrolyte abnl, thyroid issues, infection/sepsis, drug overdose, hypothermia, uremia, trauma, encephalopathy/encephalitis, psych, stroke, SAH, postictal from seizure. Will check labs, head ct, urine, ekg, cxr. Reassess. labs notable for mildly elevated white count 12, urine 1+ leukesterase. chest x-ray w/o obvious abnormality, EKG baseline, troponin negative. head CT obtained that show any acute process, concern for possible PRES, given 20 labetalol without resolution of symptoms. - suspect that AMS could be 2/2 polypharmacy. Patient did report severe back pain after a fall so was given 4mg morphine (opioid tolerant). She became more somnolent afterwards but still responsive and was reporting CP so EKG and trop obtained. - given persistent AMS/hallucinations and CP, admitted to hospitalist service for further workup. - no fever, nuchal rigidity to suggest meningitis. - patient was given duoneb for possible COPD given hypoxia. VBG 7.4/35. - hypoxia could be contributing to AMS/somnolence. Unable to get CTA chest 2/2 contrast allergy. Placed on NC. - patient to be given cipro for UTI as per hospitalist team - Diagnoses Provider Diagnoses: Chest pain, Altered mental status Discharge ED - Sign-Out/Discharge Documenting (check all that apply): Patient Departure - Discharge Plan Condition: Stable Disposition: ADMITTED TO [facility] - Billing Disposition and Condition Condition: STABLE Disposition: Admitted to [facility] - Attestation Statements Document Initiated by Scribe: Yes Documenting Scribe: Nikki Mcgowan Provider For Whom Scribe is Documenting (Include Credential): Joaquin Gilmore MD. Scribe Attestation: I, Nikki Mcgowan, scribed for Joaquin Gilmore MD. on 10/27/19 at 1230. Scribe Documentation Reviewed: Yes Provider Attestation: The documentation as recorded by the scribe, Nikki Mcgowan accurately reflects the service I personally performed and the decisions made by me, Joaquin Gilmore MD. Status of Scribe Document: Viewed
[2019-10-25 19:31] LABS: Acetaminophen < 15 mcg/mL; Alcohol < 10 mg/dL (<10); Salicylate < 2.50 mg/dL (<30)
--- OUTSIDE RECORDS SUMMARY | 2019-10-25 19:41 | XMS REPORT ---
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 w/o ang pctrs ang pctrs Encounter Encounter Diagnosis Active Mercedez for for 07-07 Ingrahm attention attention [id number] to to gastrostomy gastrostomy Gastro-esop Gastro-esop Diagnosis Active Mercedez hageal hageal 07-07 Ingrahm reflux reflux [id number] disease disease without without esophagitis esophagitis Other Other Diagnosis Active Mercedez specified specified 07-07 Ingrahm arthritis, arthritis, [id number] unspecified unspecified site site Essential Essential Diagnosis Active Mercedez (primary) (primary) 07-07 Ingrahm hypertensio hypertensio [id number] [facility] Diagnosis Active [facility]ez (current) (current) Ingrahm use of use of [id number] anticoagula anticoagula nts nts Nicotine Nicotine Diagnosis Active Mercedez dependence, dependence, Ingrahm cigarettes, cigarettes, [id number] uncomplicat uncomplicat ed ed Personal Personal Diagnosis Active Mercedez history of history of Ingrahm malignant malignant [id number] neoplasm of neoplasm of breast breast Prsnl hx of Prsnl hx of Diagnosis Active Mercedez TIA (TIA), TIA (TIA), Ingrahm and cereb and cereb [id number] infrc w/o infrc w/o resid resid deficits deficits Pain frequent Pain Mgmt Resolve 2018-11-26 Ana pain d 9 16:15:00 [place] 13:30: [id number] 00 Pain severe pain Pain Mgmt Resolve 2018-11-26 Ana d 9 16:15:00 [place] 13:30: [id number] 00 Endo/Han anti-coagul Endo/Han Resolve 2019-02-06 Aan ation d 07-07 11:15:00 [place] therapy 13:30: [id number] 00 Integument surgical Integument Resolve 2018-08-05 Rea wound d 07-07 13:35:00 Guidelli present 13:30: [id number] 00 Nutrition nutritional Nutrition Resolve 2019-01-02 Ana restriction d 07-07 10:00:00 [place] s 13:30: [id number] 00 Nutrition changing Nutrition Resolve 2019-01-02 Ana weight/appe d 07-07 10:00:00 [place] tite 13:30: [id number] 00 Nutrition nutritional Nutrition Resolve 2019-01-02 Ana risk d 07-07 10:00:00 [place] 13:30: [id number] 00 Nutrition enteral Nutrition Resolve 2019-02-06 Ana therapy d 07-07 11:15:00 [place] 13:30: [id number] 00 Safety structural Safety Resolve 2019-02-06 Ana barriers d 07-07 11:15:00 [place] present 13:30: [id number] 00 Safety fall risk Safety Resolve 2019-02-06 Ana factor d 07-07 11:15:00 [place] present 13:30: [id number] 00 Safety risk for Safety Resolve 2019-02-06 Ana hospitaliza d 07-07 11:15:00 [place] tion 13:30: [id number] 00 Medication potential Meds Resolve 2019-02-06 Ana clinically d 07-07 11:15:00 [place] significant 13:30: [id number] medication 00 issue Musculoskel requires Musculoske Resolve 2019-02-06 Ana etal human letal d 07-07 11:15:00 [place] assist to 13:30: [id number] leave home 00 IV IV present IV Resolve 2019-02-06 Rea d 9-30 11:15:00 Lissette [id number] Respiratory dyspnea Respirator Resolve 2017-102019-02-06 Mercedez present y d 0-16 11:15:00 Ingrahm 13:35: [id number] 00 Neuro confusion Neuro/Emot Resolve 2017-102019-02-06 Mercedez present ion d 0-16 11:15:00 Ingrahm 13:35: [id number] 00 Neuro depressive Neuro/Emot Resolve 2017-102019-02-06 Mercedez feelings ion d 0-16 11:15:00 Ingrahm present 13:35: [id number] 00 Safety can be left Safety Resolve 2017-102019-02-06 Mercedez alone for d 0-18 11:15:00 Ingrahm only short 08:10: [id number] periods 00 Integument surgical Integument Resolve 2017-102018-10-30 Shila wound d 1-15 10:10:00 Brian present 08:55: [id number] 00 Elimination GI drain or Eliminatio Resolve 2017-102019-02-06 Shila tube n d 1-15 11:15:00 Brian present 08:55: [id number] 00 Neuro anxiety Neuro/Emot Resolve 2017-102019-02-06 Shila present ion d 1-15 11:15:00 Brian 08:55: [id number] 00 Medication injectable Meds Resolve 2017-102019-02-06 Shila med d 1-15 11:15:00 Brian assistance 08:55: [id number] required 00 Safety fire risk Safety Resolve 2017-102019-02-06 Shila present d 1-15 11:15:00 Brian 13:00: [id number] 00 Elimination urinary Eliminatio Resolve 2019-02-06 Mercedez incontinenc n d 1- 11:15:00 Ingrahm e 14:20: [id number] 00 Pain frequent Pain Mgmt Resolve 2019-02-06 Mercedez pain d 2-15 11:15:00 Ingrahm 10:15: [id number] 00 Safety risk for Safety Unknown Leanna denis 02-06 Regeczi tion 15:45: [id number] 00 Respiratory lung sounds Respirator Resolve 2019-04-03 Leanna deficit y d 4-23 10:01:00 Regeczi 13:20: [id number] 00 Respiratory smoker Respirator Resolve 2019-04-03 Leanna y d 4-29 10:01:00 Regeczi 12:10: [id number] 00 Respiratory dyspnea Respirator Resolve 2019-06-05 Mercedez present y d 5-15 10:30:00 Ingrahm 09:00: [id number] 00 Integument surgical Integument Resolve 2019-03-27 Mercedez wound d 5-15 09:15:00 Ingrahm present 09:00: [id number] 00 Nutrition enteral Nutrition Resolve 2019-03-27 Mercedez therapy d 5-15 09:15:00 Ingrahm 09:00: [id number] 00 Elimination urinary Eliminatio Resolve 2019-04-10 Mercedez incontinenc n d 5-15 09:30:00 Ingrahm e 09:00: [id number] 00 Neuro confusion Neuro/Emot Active Mercedez present ion 5-15 Ingrahm 09:00: [id number] 00 Neuro anxiety Neuro/Emot Active 2018- Mercedez present ion 5-15 Ingrahm 09:00: [id number] 00 Neuro depressive Neuro/Emot Active 2018- Mercedez feelings ion 5-15 Ingrahm present 09:00: [id number] 00 Neuro impaired Neuro/Emot Active 2018- Mercedez decision-ma ion 5-15 Ingrahm sonali 09:00: [id number] 00 Activity self-care Activity Resolve 2019-05-20 Mercedez deficit d 5-15 11:15:00 Ingrahm 09:00: [id number] 00 Safety fall risk Safety Resolve 2019-07-17 Mercedez factor d 5-15 10:35:00 Ingrahm present 09:00: [id number] 00 Safety risk for Safety Resolve 2019-07-17 Mercedez hospitaliza d 5-15 10:35:00 Ingrahm tion 09:00: [id number] 00 Medication potential Meds Resolve 2019-03-27 Mercedez clinically d 5-15 09:15:00 Ingrahm significant 09:00: [id number] medication 00 issue Integument surgical Integument Resolve 2019-05-20 Mercedez wound d 7-12 11:15:00 Ingrahm present 10:00: [id number] 00 Nutrition enteral Nutrition Resolve 2019-06-26 Mercedez therapy d 7-12 10:35:00 Ingrahm 10:00: [id number] 00 Respiratory dyspnea Respirator Resolve 2019-08-07 Leanna present y d 06-26 10:25:00 Regeczi 10:35: [id number] 00 Respiratory smoker Respirator Resolve 2019-07-01 Leanna y d 06-26 10:15:00 Regeczi 10:35: [id number] 00 Endo/Han anti-coagul Endo/Han Resolve 2019-07-23 Leanna ation d 06-26 10:15:00 Regeczi therapy 10:35: [id number] 00 Elimination urinary Eliminatio Resolve 2019-07-23 Leanna incontinenc n d 06-26 10:15:00 Regeczi e 10:35: [id number] 00 Elimination nausea/vomi Eliminatio Resolve 2019-07-01 Leanna ting n d 06-26 10:15:00 Regeczi 10:35: [id number] 00 Integument surgical Integument Resolve 2019-07-23 Mercedez wound d 9-11 10:15:00 Ingrahm present 10:15: [id number] 00 Nutrition enteral Nutrition Resolve 2019-07-23 Mercedez therapy d 9 10:15:00 Ingrahm 10:15: [id number] 00 Respiratory smoker Respirator Resolve 2019-07-16 Leanna y d 07-16 10:05:00 Regeczi 10:05: [id number] 00 Elimination diarrhea Eliminatio Resolve 2019-07-23 Leanna n d 07-17 10:15:00 Regeczi 10:35: [id number] 00 Cardio hypertensio Cardiovasc Resolve 2018-102019-07-30 Leanna eastman d 003 10:00:00 Regeczi 10:15: [id number] 00 Safety risk for Safety Resolve 2018-102019-07-23 Leanna hospitaliza d 0-03 10:15:00 Regeczi tion 10:15: [id number] 00 24 Hr Diet knowledge/s NT: 24Hr Resolve 2018-102019-07-23 Wen kill Diet d 0-03 15:00:00 Dalton deficit - 15:00: [id number] pt 00 Nutritional eating NT: Resolve 2018-102019-07-23 Wen Barrier difficultie Barriers d 0-03 15:00:00 Dalton s present 15:00: [id number] Safety risk for Safety Resolve 2018-102019-08-07 Roseline hospitaliza d 0-04 10:25:00 [place] tion 14:00: [id number] 00 Social financial MURIEL: Active 2018-10 [facility] Services resource Social 0-04 [place] deficit Services 14:00: [id number] 00 Social support MURIEL: Active 2018-10 [facility] deficit Social 0-04 [place] Services 14:00: [id number] 00 Social knowledge/s MURIEL: Active 2018-10 [facility] kill Social 0-04 [place] deficit - Services 14:00: [id number] pt 00 Social financial MURIEL: Unknown 2018-10 [facility] Services resource Social 0-10 Ingrahm deficit Services 15:00: [id number] 00 Social knowledge/s MURIEL: Unknown 2018-10 [facility] Services kill Social 0-10 Ingrahm deficit - Services 15:00: [id number] pt 00 Respiratory lung sounds Respirator Resolve 2018-102019-08-07 Leanna deficit y d 0-18 10:25:00 Regeczi 10:25: [id number] 00 Respiratory dyspnea Respirator Active 2018-10 Mercedez present y 10-28 Ingrahm 11:00: [id number] 00 Integument surgical Integument Resolve 2018-102019-09-11 Mercedez wound d 10-28 09:50:00 Ingrahm present 11:00: [id number] 00 Nutrition enteral Nutrition Resolve 2018-102019-09-11 Mercedez therapy d 10-28 09:50:00 Ingrahm 11:00: [id number] 00 Elimination urinary Eliminatio Resolve 2018-102019-09-11 Mercedez incontinenc n d 10-28 09:50:00 Ingrahm e 11:00: [id number] 00 Safety fall risk Safety Resolve 2018-102019-09-11 Mercedez factor d 10-28 09:50:00 Ingrahm present 11:00: [id number] 00 Safety risk for Safety Resolve 2018-102019-09-23 Mercedez appiahiza d 10-28 11:10:00 Ingrahm tion 11:00: [id number] 00 Safety risk for Safety Unknown 2018-10 Mercedez hospitaliza 11-24 Ingrahm tion 15:00: [id number] 00 Allergies, Adverse Reactions, Alerts Allergy Allergy Status Severity Reaction(s) Onset Inactive Treating Comments Name Type Date Date Clinician latex Base Active Unknown Hives Mercedez Ingredient 07-07 Ingrm [id number] amoxicillin Base Active Unknown Anaphylaxis Mercedez Ingredient 07-07 Ingrm [id number] bee venom Base Active Unknown Anaphylaxis Mercedez protein Ingredient 07-07 Ingrm (honey bee) [id number] Botox Medication Active Unknown Anaphylaxis [facility] 07[facility] [id number] contrast Unknown Active Unknown Anaphylaxis [facility]ez dye 07-07 [facility] [id number] Penicillins Allergen Active Unknown Anaphylaxis Mercedez Group 07-07 Ingrm [id number] shellfish Base Active Unknown Anaphylaxis Mer[facility]ez derived Ingredient 07-07 [facility] [id number] adhesive Base Active Unknown Hives Mer[facility]ez tape Ingredient 07-07 [facility] [id number] nsaids Unknown Active Unknown stomach issues Mercedez 07-07 Ingrm [id number] oxycodone Base Active Unknown swelling [facility] Ingredient 07-07 [facility] [id number] Betadine Medication Active Unknown Rash [facility]ez Name ID 07-07 [facility] [id number] Hibiclens Medication Active Unknown Rash [facility]ez Name ID 07-07 [facility] [id number] evironmenta Unknown Active Unknown hay fever, Rea l/seasonal watery eye, 07-07 Guidelli itching, [id number] sneeze, congestion povidone-io Base Active Unknown itching Rea dine Ingredient 07-07 Guidelli [id number] Iodine and Allergen Active Unknown Anaphylaxis Rea Iodide Group 07-07 Guidelli Containing [id number] Products albumin Base Active Unknown Anaphylaxis Rea colloid, Ingredient 07-07 Guidelli human [id number] fentanyl Base Active Unknown hallucinations Rea Ingredient 07-07 Guidelli [id number] Medications Ordered Filled Start Stop Current Ordering [...] Unknown Unknown sulfate HFA sulfate HFA 07-07 10-03 Tashia FINCH 90 90 e mcg/actuati [...] mg/mL) oral oral solution solution magnesium magnesium 2018-0 2018- No Blegen Unknown Unknown 64 mg 64 [...] mg tablet mg tablet 07-07 Tashia FINCH Normal Normal No Blegen Unknown Unknown Saline [...] Unknown Unknown 10 mg 10 mg 10-26 ,Tashia tablet tablet e clopidogrel clopidogrel No Blegen Unknown Unknown 75 mg 75 mg 10-26 ,Tashia tablet tablet e diphenhydrA diphenhydrA 2018- No Blegen Unknown Unknown MINE 50 mg MINE 50 mg 10-26- ,Tashia capsule capsule e pantoprazol pantoprazol 2018- [...] Unknown ne 4 mg ne 4 mg 3-05 ,Douglas tablet tablet diphenhydrA diphenhydrA 2018- No Blegen Unknown Unknown MINE 50 mg MINE 50 mg 10-26 09- ,Tashia capsule capsule e ondansetron ondansetron 2018- No Blegen Unknown Unknown 4 mg 4 mg 02-06 04-29 Tashia FINCH disintegrat disintegrat e ing tablet ing tablet metoprolol metoprolol 2018- No Blegen Unknown Unknown tartrate 50 tartrate 50 - 05-15 Tashia FINCH mg tablet mg tablet e isosorbide isosorbide No Blegen Unknown Unknown mononitrate mononitrate 4- Tashia FINCH ER 30 mg ER 30 mg e tablet,exte tablet,exte nded nded release 24 release 24 hr hr ondansetron ondansetron No Blegen Unknown Unknown 4 mg 4 mg - Tashia FINCH disintegrat disintegrat e ing tablet ing tablet losartan losartan 2018- No Blegen Unknown Unknown 100 mg 100 mg 02-16- Tashia FINCH tablet tablet e morphine ER morphine ER No [place] Unknown Unknown 60 mg 60 mg 4-24 MDDouglas tablet,exte tablet,exte nded nded release release magnesium magnesium No Blegen Unknown Unknown 64 mg 64 mg -30 Tashia FINCH (magnesium (magnesium e chloride) chloride) tablet,linda tablet,linda yed release yed release pantoprazol pantoprazol No Blegen Unknown Unknown e 40 mg e 40 mg 5-15 Tashia FINCH tablet,linda tablet,linda e yed release yed release metoprolol metoprolol 2018- No Blegen Unknown Unknown tartrate 25 tartrate 25 5-04 09- Tashia FINCH mg tablet mg tablet e [...] Unknown 1 mg tablet 1 mg tablet 03-26- Tashia FINCH mupirocin 2 mupirocin 2 2018- No Blegen Unknown Unknown % topical % topical 03-26- Tashia FINCH cream cream e LORazepam LORazepam No Blegen Unknown Unknown 0.5 mg 0.5 mg - Tashia FINCH tablet tablet e albuterol albuterol 2018-10- Yes Blegen Unknown Unknown sulfate HFA sulfate HFA 0- Tashia FINCH 90 90 e mcg/actuati mcg/actuati on aerosol on aerosol inhaler inhaler albuterol albuterol 2018-10 Yes Blegen Unknown Unknown sulfate HFA sulfate HFA 0-03 Tashia FINCH 90 90 e mcg/actuati mcg/actuati on aerosol on aerosol inhaler inhaler mupirocin 2 mupirocin 2 2018-10 Yes Blegen Unknown Unknown % topical % topical 0-03 Tashia FINCH cream cream e metoprolol metoprolol 2018-10- Yes Blegen Unknown Unknown tartrate 25 tartrate 25 0-03 11-21 Tashia FINCH mg tablet mg tablet e Spiriva Spiriva 2018-10- Yes Blegen Unknown Unknown Respimat Respimat 0-07 10-21 Tashia FINCH 2.5 2.5 e mcg/actuati mcg/actuati on solution on solution for for inhalation inhalation spironolact spironolact 2018-10 Yes Blegen Unknown Unknown one 25 mg one 25 mg 0-21 Tashia FINCH tablet tablet e ipratropium ipratropium 2018-10- Yes Blegen Unknown Unknown bromide 17 bromide 17 0-21 12-05 Tashia FINCH mcg/actuati mcg/actuati e on HFA on HFA aerosol aerosol inhaler inhaler ipratropium ipratropium 2018-10- Yes Blegen Unknown Unknown bromide 17 bromide 17 0-21 12-05 Tashia FINCH mcg/actuati mcg/actuati e on HFA on HFA aerosol aerosol inhaler inhaler metoprolol metoprolol 2018-10 Yes Blegen Unknown Unknown tartrate 25 tartrate 25 1-21 Tashia FINCH mg tablet mg tablet e ciprofloxac ciprofloxac 2018-10- Yes Blegen Unknown Unknown in 500 mg in 500 mg 11-18 12-03 Tashia FINCH tablet tablet e Spiriva Spiriva 2018-10 Yes Blegen Unknown Unknown Respimat Respimat 2-05 Tashia FINCH 2.5 2.5 e mcg/actuati mcg/actuati on solution on solution for for inhalation inhalation losartan losartan 2018-10 Yes Blegen Unknown Unknown 100 mg 100 mg 2-05 Tashia FINCH tablet tablet e Vital Signs Vital Name Observation Time Observation [...]
--- OUTSIDE RECORDS SUMMARY | 2019-10-25 19:41 | XMS REPORT ---
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 [place] tuscarora coronary coronary artery w/o artery w/o ang pctrs ang pctrs Encounter Encounter Diagnosis Active [facility]ez for for 07-07 Ingrahm attention attention [id number] to to gastrostomy gastrostomy Gastro-esop Gastro-esop Diagnosis Active Mer[facility]ez hageal hageal 07-07 Ingrahm reflux reflux [id number] disease disease without without esophagitis esophagitis Other Other Diagnosis Active [facility]ez specified specified 07-07 Ingrahm arthritis, arthritis, [id number] unspecified unspecified site site Essential Essential Diagnosis Active [facility]ez (primary) (primary) 07-07 Ingrahm hypertensio hypertensio [id number] n n FDC FDC Diagnosis Active [facility]ez (current) (current) Ingrahm use of use of [id number] anticoagula anticoagula nts nts Nicotine Nicotine Diagnosis Active [facility] dependence, dependence, Ingrahm cigarettes, cigarettes, [id number] uncomplicat uncomplicat ed ed Personal Personal Diagnosis Active [facility] history of history of Ingrahm malignant malignant [id number] neoplasm of neoplasm of breast breast Prsnl hx of Prsnl hx of Diagnosis Active [facility] TIA (TIA), TIA (TIA), Ingrahm and cereb and cereb [id number] infrc w/o infrc w/o resid resid deficits deficits Pain frequent Pain Mgmt Resolve 2018-11-26 Ana pain d 9 16:15:00 [place] 13:30: [id number] 00 Pain severe pain Pain Mgmt Resolve 2018-11-26 Ana d 9 16:15:00 [place] 13:30: [id number] 00 Endo/Han anti-coagul Endo/Han Resolve 2019-02-06 Ana ation d 07-07 11:15:00 [place] therapy 13:30: [id number] 00 Integument surgical Integument Resolve 2018-08-05 Rea wound d 07-07 13:35:00 [place] present 13:30: [id number] 00 Nutrition nutritional Nutrition Resolve 2019-01-02 Ana restriction d 07-07 10:00:00 [place] s 13:30: [id number] 00 Nutrition changing Nutrition Resolve 2019-01-02 Naa weight/appe d 07-07 10:00:00 [place] tite 13:30: [id number] 00 Nutrition nutritional Nutrition Resolve 2019-01-02 Ana risk d 07-07 10:00:00 [place] 13:30: [id number] 00 Nutrition enteral Nutrition Resolve 2019-02-06 Ana therapy d 07-07 11:15:00 [place] 13:30: [id number] 00 Safety structural Safety Resolve 2019-02-06 Ana barriers d 07-07 11:15:00 [place] present 13:30: [id number] 00 Safety fall risk Safety Resolve 2019-02-06 Ana factor d 07-07 11:15:00 [place] present 13:30: [id number] 00 Safety risk for Safety Resolve 2019-02-06 Ana hospitaliza d 07-07 11:15:00 [place] tion 13:30: [id number] 00 Medication potential Meds Resolve 2019-02-06 Ana clinically d 07-07 11:15:00 [place] significant 13:30: [id number] medication 00 issue Musculoskel requires Musculoske Resolve 2019-02-06 Ana etal human letal d 07-07 11:15:00 [place] assist to 13:30: [id number] leave home 00 IV IV present IV Resolve 2019-02-06 Rea d 9-30 11:15:00 [place] [id number] Respiratory dyspnea Respirator Resolve 2017-102019-02-06 [facility] present y d 0-16 11:15:00 [place] 13:35: [id number] 00 Neuro confusion Neuro/Emot Resolve 2017-102019-02-06 [facility] present ion d 0-16 11:15:00 [place] 13:35: [id number] 00 Neuro depressive Neuro/Emot Resolve 2017-102019-02-06 [facility] feelings ion d 0-16 11:15:00 [facility] present 13:35: [id number] 00 Safety can be left Safety Resolve 2017-102019-02-06 [facility] alone for d 0-18 11:15:00 Ingrahm only short 08:10: [id number] periods 00 Integument surgical Integument Resolve 2017-102018-10-30 Shila wound d 1-15 10:10:00 Brian present 08:55: [id number] 00 Elimination GI drain or Eliminatio Resolve 2017-102019-02-06 Shila tube n d 1-15 11:15:00 [place] present 08:55: [id number] 00 Neuro anxiety Neuro/Emot Resolve 2017-102019-02-06 Shila present ion d 1-15 11:15:00 [place] 08:55: [id number] 00 Medication injectable Meds Resolve 2017-102019-02-06 Shila med d 1-15 11:15:00 Brian assistance 08:55: [id number] required 00 Safety fire risk Safety Resolve 2017-102019-02-06 Shila present d 1-15 11:15:00 [place] 13:00: [id number] 00 Elimination urinary Eliminatio Resolve 2019-02-06 [facility] incontinenc n d 1- 11:15:00 Ingra[place] e 14:20: [id number] 00 Pain frequent Pain Mgmt Resolve 2019-02-06 [facility] pain d 2-15 11:15:00 [facility] 10:15: [id number] 00 Safety risk for Safety Unknown Leanna denis 02-06 Rege[facility]zi tion 15:45: [id number] 00 Respiratory lung sounds Respirator Resolve 2019-04-03 Leanna deficit y d 4-23 10:01:00 [place] 13:20: [id number] 00 Respiratory smoker Respirator Resolve 2019-04-03 Leanna y d 4-29 10:01:00 Regeczi 12:10: [id number] 00 Respiratory dyspnea Respirator Resolve 2019-06-05 [facility] present y d 5-15 10:30:00 [facility] 09:00: [id number] 00 Integument surgical Integument Resolve 2019-03-27 [facility] wound d 5-15 09:15:00 Ingrahm present 09:00: [id number] 00 Nutrition enteral Nutrition Resolve 2019-03-27 [facility] therapy d 5-15 09:15:00 In[place] 09:00: [id number] 00 Elimination urinary Eliminatio Resolve 2019-04-10 [facility]ez incontinenc n d 5-15 09:30:00 Ingrahm e 09:00: [id number] 00 Neuro confusion Neuro/Emot Active [facility] present ion 5-15 Ingrahm 09:00: [id number] 00 Neuro anxiety Neuro/Emot Active 2018- [facility] present ion 5-15 Ingrahm 09:00: [id number] 00 Neuro depressive Neuro/Emot Active 2018- [facility] feelings ion 5-15 Ingrahm present 09:00: [id number] 00 Neuro impaired Neuro/Emot Active 2018- [facility]ez decision-ma ion 5-15 Ingrahm sonali 09:00: [id number] 00 Activity self-care Activity Resolve 2019-05-20 [facility] deficit d 5-15 11:15:00 Ingrahm 09:00: [id number] 00 Safety fall risk Safety Resolve 2019-07-17 Mer[facility]ez factor d 5-15 10:35:00 Ingrahm present 09:00: [id number] 00 Safety risk for Safety Resolve 2019-07-17 Mer[facility]ez hospitaliza d 5-15 10:35:00 Ingrahm tion 09:00: [id number] 00 Medication potential Meds Resolve 2019-03-27 Mercedez clinically d 5-15 09:15:00 Ingrahm significant 09:00: [id number] medication 00 issue Integument surgical Integument Resolve 2019-05-20 [facility]ez wound d 7-12 11:15:00 Ingrahm present 10:00: [id number] 00 Nutrition enteral Nutrition Resolve 2019-06-26 [facility] therapy d 7-12 10:35:00 Ingrahm 10:00: [id number] 00 Respiratory dyspnea Respirator Resolve 2019-08-07 Leanna present y d 06-26 10:25:00 Regeczi 10:35: [id number] 00 Respiratory smoker Respirator Resolve 2019-07-01 Leanna y d 06-26 10:15:00 Rege[place]zi 10:35: [id number] 00 Endo/Han anti-coagul Endo/Han Resolve 2019-07-23 Leanna ation d 06-26 10:15:00 Regeczi therapy 10:35: [id number] 00 Elimination urinary Eliminatio Resolve 2019-07-23 Leanna incontinenc n d 06-26 10:15:00 Regeczi e 10:35: [id number] 00 Elimination nausea/vomi Eliminatio Resolve 2019-07-01 Leanna ting n d 06-26 10:15:00 Regeczi 10:35: [id number] 00 Integument surgical Integument Resolve 2019-07-23 [facility] wound d 9-11 10:15:00 Ingrahm present 10:15: [id number] 00 Nutrition enteral Nutrition Resolve 2019-07-23 [facility]ez therapy d 9 10:15:00 Ingrahm 10:15: [id number] 00 Respiratory smoker Respirator Resolve 2019-07-16 Leanna y d 07-16 10:05:00 Regeczi 10:05: [id number] 00 Elimination diarrhea Eliminatio Resolve 2019-07-23 Leanna n d 07-17 10:15:00 Regeczi 10:35: [id number] 00 Cardio hypertensio Cardiovasc Resolve 2018-102019-07-30 Leanna eastman d 003 10:00:00 Rege[place]zi 10:15: [id number] 00 Safety risk for Safety Resolve 2018-102019-07-23 Leanna hospitaliza d 0-03 10:15:00 Regeczi tion 10:15: [id number] 00 24 Hr Diet knowledge/s NT: 24Hr Resolve 2018-102019-07-23 [place] kill Diet d 0-03 15:00:00 [place] deficit - 15:00: [id number] pt 00 Nutritional eating NT: Resolve 2018-102019-07-23 [place] difficultie Barriers d 0-03 15:00:00 [place] s present 15:00: [id number] 00 Safety risk for Safety Resolve 2018-102019-08-07 [place] hospitaliza d 0-04 10:25:00 [place] tion 14:00: [id number] 00 Social financial MURIEL: Active 2018-10 [facility] Services resource Social 0-04 [place] deficit Services 14:00: [id number] 00 Social support MURIEL: Active 2018-10 [facility] deficit Social 0-04 [place] [facility] 14:00: [id number] 00 Social knowledge/s MURIEL: Active 2018-10 [facility] kill Social 0-04 [place] deficit - Services 14:00: [id number] pt 00 Social financial MURIEL: Unknown 2018-10 [facility] Services resource Social 0-10 Ingrahm deficit Services 15:00: [id number] 00 Social knowledge/s MURIEL: Unknown 2018-10 [facility] Services kill Social 0-10 Ingrahm deficit - Services 15:00: [id number] pt 00 Respiratory lung sounds Respirator Resolve 2018-102019-08-07 Leanna deficit y d 0-18 10:25:00 Regeczi 10:25: [id number] 00 Respiratory dyspnea Respirator Active 2018-10 Mercedez present y 10-28 Ingrahm 11:00: [id number] 00 Integument surgical Integument Resolve 2018-102019-09-11 Mercedez wound d 10-28 09:50:00 Ingrahm present 11:00: [id number] 00 Nutrition enteral Nutrition Resolve 2018-102019-09-11 Mer[facility]ez therapy d 10-28 09:50:00 Ingra[place] 11:00: [id number] 00 Elimination urinary Eliminatio Resolve 2018-102019-09-11 Mercedez incontinenc n d 10-28 09:50:00 Ingrahm e 11:00: [id number] 00 Safety fall risk Safety Resolve 2018-102019-09-11 Mercedez factor d 10-28 09:50:00 Ingrahm present 11:00: [id number] 00 Safety risk for Safety Resolve 2018-102019-09-23 Mercedez appiahiza d 10-28 11:10:00 Ingrahm tion 11:00: [id number] 00 Safety risk for Safety Unknown 2018-10 Mercedez hospitaliza 11-24 Ingrahm tion 15:00: [id number] 00 Allergies, Adverse Reactions, Alerts Allergy Allergy Status Severity Reaction(s) Onset Inactive Treating Comments Name Type Date Date Clinician latex Base Active Unknown Hives Mer[facility]ez Ingredient 07-07 Ingrm [id number] amoxicillin Base Active Unknown Anaphylaxis Mer[facility]ez Ingredient 07-07 Ingrm [id number] bee venom Base Active Unknown Anaphylaxis Mer[facility]ez protein Ingredient 07-07 Ingrm (honey bee) [id number] Botox Medication Active Unknown Anaphylaxis [id number] contrast Unknown Active Unknown Anaphylaxis [facility] [id number] Penicillins Allergen Active Unknown Anaphylaxis [facility] Group 07-07 Ingrm [id number] shellfish Base Active Unknown Anaphylaxis [facility] derived [facility]ient [facility] [id number] adhesive Base Active Unknown Hives [facility] tape [facility] [id number] nsaids Unknown Active Unknown stomach issues Mercedez 07-07 Ingrm [id number] oxycodone Base Active Unknown swelling [facility] [id number] Betadine Medication Active Unknown Rash [facility] 07[facility] [id number] Hibiclens Medication Active Unknown Rash [facility] 07[facility] [id number] evironmenta Unknown Active Unknown hay fever, Rea l/seasonal watery eye, 07-07 Guidelli itching, [id number] sneeze, congestion povidone-io Base Active Unknown itching Rea dine Ingredient 07-07 Guidelli [id number] Iodine and Allergen Active Unknown Anaphylaxis Rea Iodide Group 07-07 Guidelli Containing [id number] Products albumin Base Active Unknown Anaphylaxis Rea colloid, Ingredient 07-07 Guidelli human [id number] fentanyl Base Active Unknown hallucinations Rea Ingredient 07-07 Guidelli [id number] Medications Ordered Filled Start Stop Current Ordering [...] FINCH tablet tablet e albuterol albuterol 2018-10- No Blegen Unknown Unknown sulfate HFA sulfate HFA 0 10- Tashia FINCH 90 90 e mcg/actuati mcg/actuati on aerosol on aerosol inhaler inhaler albuterol albuterol 2018-10 No Blegen Unknown Unknown sulfate HFA sulfate HFA 0-03 Tashia FINCH 90 90 e mcg/actuati mcg/actuati on aerosol on aerosol inhaler inhaler mupirocin 2 mupirocin 2 2018-10 No Blegen Unknown Unknown % topical % topical 0-03 Tashia FINCH cream cream e metoprolol metoprolol 2018-10- No Blegen Unknown Unknown tartrate 25 tartrate [...]
--- OUTSIDE RECORDS SUMMARY | 2019-10-25 19:41 | XMS REPORT ---
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 [id number] [place] coronary coronary artery w/o artery w/o ang pctrs ang pctrs Encounter Encounter Diagnosis Active [facility]ez for for 07-07 Ingrahm attention attention [id number] to to gastrostomy gastrostomy Gastro-esop Gastro-esop Diagnosis Active Mercedez hageal hageal 07-07 Ingrahm reflux reflux [id number] disease disease without without esophagitis esophagitis Other Other Diagnosis Active Mer[facility]ez specified specified 07-07 Ingrahm arthritis, arthritis, [id number] unspecified unspecified site site Essential Essential Diagnosis Active [facility]ez (primary) (primary) 07-07 Ingrahm hypertensio hypertensio [id number] n n enrober residential Diagnosis Active [facility]ez (current) (current) Ingrahm use of use of [id number] anticoagula anticoagula nts nts Nicotine Nicotine Diagnosis Active [facility] dependence, dependence, Ingrahm cigarettes, cigarettes, [id number] uncomplicat uncomplicat ed ed Personal Personal Diagnosis Active Mercedez history of history of Ingrahm malignant malignant [id number] neoplasm of neoplasm of breast breast Prsnl hx of Prsnl hx of Diagnosis Active [facility] TIA (TIA), TIA (TIA), Ingrahm and cereb and cereb [id number] infrc w/o infrc w/o resid resid deficits deficits Pain frequent Pain Mgmt Resolve 2018-11-26 Ana pain d 9 16:15:00 [place] 13:30: [id number] 00 Pain severe pain Pain Mgmt Resolve 2018-11-26 Ana d 9 16:15:00 [place] 13:30: [id number] 00 Endo/Han anti-coagul Endo/Han Resolve 2019-02-06 Ana ation d 07-07 11:15:00 [place] therapy 13:30: [id number] 00 Integument surgical Integument Resolve 2018-08-05 Rea wound d 07-07 13:35:00 [place] present 13:30: [id number] 00 Nutrition nutritional Nutrition Resolve 2019-01-02 Ana restriction d 07-07 10:00:00 [place] s 13:30: [id number] 00 Nutrition changing Nutrition Resolve 2019-01-02 Ana weight/appe d 07-07 10:00:00 [place] tite 13:30: [id number] 00 Nutrition nutritional Nutrition Resolve 2019-01-02 Ana risk d 07-07 10:00:00 [place] 13:30: [id number] 00 Nutrition enteral Nutrition Resolve 2019-02-06 Ana therapy d 07-07 11:15:00 [place] 13:30: [id number] 00 Safety structural Safety Resolve 2019-02-06 Ana barriers d 07-07 11:15:00 [place] present 13:30: [id number] 00 Safety fall risk Safety Resolve 2019-02-06 Ana factor d 07-07 11:15:00 [place] present 13:30: [id number] 00 Safety risk for Safety Resolve 2019-02-06 Ana hospitaliza d 07-07 11:15:00 [place] tion 13:30: [id number] 00 Medication potential Meds Resolve 2019-02-06 Ana clinically d 07-07 11:15:00 [place] significant 13:30: [id number] medication 00 issue Musculoskel requires Musculoske Resolve 2019-02-06 Ana etal human letal d 07-07 11:15:00 [place] assist to 13:30: [id number] leave home 00 IV IV present IV Resolve 2019-02-06 Rea d 9-30 11:15:00 [place] [id number] Respiratory dyspnea Respirator Resolve 2017-102019-02-06 [facility] present y d 0-16 11:15:00 [place] 13:35: [id number] 00 Neuro confusion Neuro/Emot Resolve 2017-102019-02-06 [facility] present ion d 0-16 11:15:00 [place] 13:35: [id number] 00 Neuro depressive Neuro/Emot Resolve 2017-102019-02-06 [facility] feelings ion d 0-16 11:15:00 [place] present 13:35: [id number] 00 Safety can be left Safety Resolve 2017-102019-02-06 Mer[facility] alone for d 0-18 11:15:00 [place] only short 08:10: [id number] periods 00 Integument surgical Integument Resolve 2017-102018-10-30 Shila wound d 1-15 10:10:00 Brian present 08:55: [id number] 00 Elimination GI drain or Eliminatio Resolve 2017-102019-02-06 Shila tube n d 1-15 11:15:00 Brian present 08:55: [id number] 00 Neuro anxiety Neuro/Emot Resolve 2017-102019-02-06 Shila present ion d 1-15 11:15:00 Brian 08:55: [id number] 00 Medication injectable Meds Resolve 2017-102019-02-06 Shila med d 1-15 11:15:00 Brian assistance 08:55: [id number] required 00 Safety fire risk Safety Resolve 2017-102019-02-06 Shila present d 1-15 11:15:00 Brian 13:00: [id number] 00 Elimination urinary Eliminatio Resolve 2019-02-06 [facility] incontinenc n d 1- 11:15:00 [place] e 14:20: [id number] 00 Pain frequent Pain Mgmt Resolve 2019-02-06 Mer[facility]ez pain d 2-15 11:15:00 [place] 10:15: [id number] 00 Safety risk for Safety Unknown Leanna denis 02-06 Regeczi tion 15:45: [id number] 00 Respiratory lung sounds Respirator Resolve 2019-04-03 Leanna deficit y d 4-23 10:01:00 Rege[place]zi 13:20: [id number] 00 Respiratory smoker Respirator Resolve 2019-04-03 Leanna y d 4-29 10:01:00 Regeczi 12:10: [id number] 00 Respiratory dyspnea Respirator Resolve 2019-06-05 [facility] present y d 5-15 10:30:00 [place] 09:00: [id number] 00 Integument surgical Integument Resolve 2019-03-27 [facility] wound d 5-15 09:15:00 Ingrahm present 09:00: [id number] 00 Nutrition enteral Nutrition Resolve 2019-03-27 [facility] therapy d 5-15 09:15:00 [facility] 09:00: [id number] 00 Elimination urinary Eliminatio Resolve 2019-04-10 [facility]ez incontinenc n d 5-15 09:30:00 Ingrahm e 09:00: [id number] 00 Neuro confusion Neuro/Emot Active [facility] present ion 5-15 Ingrahm 09:00: [id number] 00 Neuro anxiety Neuro/Emot Active 2018- [facility] present ion 5-15 Ingrahm 09:00: [id number] 00 Neuro depressive Neuro/Emot Active 2018- [facility] feelings ion 5-15 Ingrahm present 09:00: [id number] 00 Neuro impaired Neuro/Emot Active 2018- [facility] decision-ma ion 5-15 Ingrahm sonali 09:00: [id number] 00 Activity self-care Activity Resolve 2019-05-20 [facility] deficit d 5-15 11:15:00 [facility] 09:00: [id number] 00 Safety fall risk Safety Resolve 2019-07-17 [facility]ez factor d 5-15 10:35:00 Ingrahm present 09:00: [id number] 00 Safety risk for Safety Resolve 2019-07-17 [facility] hospitaliza d 5-15 10:35:00 Ingra[facility] tion 09:00: [id number] 00 Medication potential Meds Resolve 2019-03-27 Mer[facility]ez clinically d 5-15 09:15:00 Ingra[facility] significant 09:00: [id number] medication 00 issue Integument surgical Integument Resolve 2019-05-20 [facility] wound d 7-12 11:15:00 In[facility] present 10:00: [id number] 00 Nutrition enteral Nutrition Resolve 2019-06-26 [facility] therapy d 7-12 10:35:00 Ingra[facility] 10:00: [id number] 00 Respiratory dyspnea Respirator Resolve 2019-08-07 Leanna present y d 06-26 10:25:00 Rege[place]zi 10:35: [id number] 00 Respiratory smoker Respirator Resolve 2019-07-01 Leanna y d 06-26 10:15:00 Rege[place]zi 10:35: [id number] 00 Endo/Han anti-coagul Endo/Han Resolve 2019-07-23 Leanna ation d 06-26 10:15:00 Regeczi therapy 10:35: [id number] 00 Elimination urinary Eliminatio Resolve 2019-07-23 Leanna incontinenc n d 06-26 10:15:00 Regeczi e 10:35: [id number] 00 Elimination nausea/vomi Eliminatio Resolve 2019-07-01 Leanna ting n d 06-26 10:15:00 Regeczi 10:35: [id number] 00 Integument surgical Integument Resolve 2019-07-23 M[place]red[place] wound d 9-11 10:15:00 Ingrahm present 10:15: [id number] 00 Nutrition enteral Nutrition Resolve 2019-07-23 [facility] therapy d 9 10:15:00 Ingrahm 10:15: [id number] 00 Respiratory smoker Respirator Resolve 2019-07-16 Leanna y d 07-16 10:05:00 Regeczi 10:05: [id number] 00 Elimination diarrhea Eliminatio Resolve 2019-07-23 Leanna n d 07-17 10:15:00 Regeczi 10:35: [id number] 00 Cardio hypertensio Cardiovasc Resolve 2018-102019-07-30 Leanna eastman d 003 10:00:00 Rege[place] 10:15: [id number] 00 Safety risk for Safety Resolve 2018-102019-07-23 Leanna hospitaliza d 0-03 10:15:00 Regeczi tion 10:15: [id number] 00 24 Hr Diet knowledge/s NT: 24Hr Resolve 2018-102019-07-23 Wen kill Diet d 0-03 15:00:00 [place] deficit - 15:00: [id number] pt 00 Nutritional eating NT: Resolve 2018-102019-07-23 Wen Barrier difficultie Barriers d 0-03 15:00:00 [place] s present 15:00: [id number] 00 Safety risk for Safety Resolve 2018-102019-08-07 [facility] hospitaliza d 0-04 10:25:00 [place] tion 14:00: [id number] 00 Social financial MURIEL: Active 2018-10 [facility] resource Social 0-04 [place] deficit Services 14:00: [id number] 00 Social support MURIEL: Active 2018-10 [facility] deficit Social 0-04 [place] [facility] 14:00: [id number] 00 Social knowledge/s MURIEL: Active 2018-10 [facility] kill Social 0-04 [place] deficit - Services 14:00: [id number] pt 00 Social financial MURIEL: Unknown 2018-10 [facility] Services resource Social 0-10 [facility] deficit Services 15:00: [id number] 00 Social knowledge/s MURIEL: Unknown 2018-10 [facility] Services kill Social 0-10 [facility] deficit - Services 15:00: [id number] pt 00 Respiratory lung sounds Respirator Resolve 2018-102019-08-07 Leanna deficit y d 0-18 10:25:00 Regeczi 10:25: [id number] 00 Respiratory dyspnea Respirator Active 2018-10 [facility] present y 10-28 In[facility] 11:00: [id number] 00 Integument surgical Integument Resolve 2018-102019-09-11 [facility] wound d 10-28 09:50:00 Ingra[facility] present 11:00: [id number] 00 Nutrition enteral Nutrition Resolve 2018-102019-09-11 [facility] therapy d 10-28 09:50:00 In[facility] 11:00: [id number] 00 Elimination urinary Eliminatio Resolve 2018-102019-09-11 [facility] incontinenc n d 10-28 09:50:00 Ingrahm e 11:00: [id number] 00 Safety fall risk Safety Resolve 2018-102019-09-11 Mer[facility]ez factor d 10-28 09:50:00 Ingra[facility] present 11:00: [id number] 00 Safety risk for Safety Resolve 2018-102019-09-23 Mer[facility] appiahiza d 10-28 11:10:00 Ingra[facility] tion 11:00: [id number] 00 Safety risk for Safety Unknown 2018-10 [facility] hospitaliza 11-24 Ingrahm tion 15:00: [id number] 00 Allergies, Adverse Reactions, Alerts Allergy Allergy Status Severity Reaction(s) Onset Inactive Treating Comments Name Type Date Date Clinician latex Base Active Unknown Hives [facility] Ingredient 07-07 Ingrm [id number] amoxicillin Base Active Unknown Anaphylaxis Mer[facility] Ingredient 07-07 Ingrm [id number] bee venom Base Active Unknown Anaphylaxis [facility] protein Ingredient 07-07 Ingrm (honey bee) [id number] Botox Medication Active Unknown An[facility]axis [id number] contrast Unknown Active Unknown Anaphylaxis [facility] [id number] Penicillins Allergen Active Unknown Anaphylaxis [facility] Group 07-07 Ingrm [id number] shellfish Base Active Unknown Anaphylaxis [facility] derived [facility]redient 07[facility] [id number] adhesive Base Active Unknown Hives [facility] tape [facility]ient [facility] [id number] nsaids Unknown Active Unknown stomach issues Mercedez 07-07 Ingrm SH127435 oxycodone Base Active Unknown swelling [facility]redient 07[facility] [id number] Betadine Medication Active Unknown Rash [facility] Name ID 07[facility] [id number] Hibiclens Medication Active Unknown Rash [facility] Name ID 07[facility] [id number] evironmenta Unknown Active Unknown hay fever, Rea l/seasonal watery eye, 07-07 Guidelli itching, [id number] sneeze, congestion povidone-io Base Active Unknown itching Rea dine Ingredient 07-07 Guidelli [id number] Iodine and Allergen Active Unknown Anaphylaxis Rea Iodide Group 07-07 Guidelli Containing [id number] Products albumin Base Active Unknown Anaphylaxis Rea colloid, Ingredient 07-07 Guidelli human [id number] fentanyl Base Active Unknown hallucinations Rea Ingredient 07-07 Guidelli [id number] Medications Ordered Filled Start Stop Current Ordering [...]
--- OUTSIDE RECORDS SUMMARY | 2019-10-25 19:41 | XMS REPORT ---
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 w/o artery w/o ang pctrs ang pctrs Encounter Encounter Diagnosis Active Mercedez for for 07-07 Ingrahm attention attention [id number] to to gastrostomy gastrostomy Gastro-esop Gastro-esop Diagnosis Active Mercedez hageal hageal 07-07 Ingrahm reflux reflux [id number] disease disease without without esophagitis esophagitis Other Other Diagnosis Active Mercedez specified specified 07-07 Ingrahm arthritis, arthritis, [id number] unspecified unspecified site site Essential Essential Diagnosis Active Mercedez (primary) (primary) 07-07 Ingrahm hypertensio hypertensio [id number] n n FCI FCI Diagnosis Active Mercedez (current) (current) Ingrahm use of use of [id number] anticoagula anticoagula nts nts Nicotine Nicotine Diagnosis Active Mercedez dependence, dependence, Ingrahm cigarettes, cigarettes, [id number] uncomplicat uncomplicat ed ed Personal Personal Diagnosis Active Mercedez history of history of Ingrahm malignant malignant [id number] neoplasm of neoplasm of breast breast Prsnl hx of Prsnl hx of Diagnosis Active Mercedez TIA (TIA), TIA (TIA), Ingrahm and cereb and cereb [id number] infrc w/o infrc w/o resid resid deficits deficits Pain frequent Pain Mgmt Resolve 2018-11-26 Ana pain d 9 16:15:00 [place] 13:30: [id number] 00 Pain severe pain Pain Mgmt Resolve 2018-11-26 Ana d 9 16:15:00 [place] 13:30: [id number] 00 Endo/Han anti-coagul Endo/Han Resolve 2019-02-06 Ana ation d 07-07 11:15:00 [place] therapy 13:30: [id number] 00 Integument surgical Integument Resolve 2018-08-05 Rea wound d 07-07 13:35:00 Guidelli present 13:30: [id number] 00 Nutrition nutritional Nutrition Resolve 2019-01-02 Ana restriction d 07-07 10:00:00 [place] s 13:30: [id number] 00 Nutrition changing Nutrition Resolve 2019-01-02 Ana weight/appe d 07-07 10:00:00 [place] tite 13:30: [id number] 00 Nutrition nutritional Nutrition Resolve 2019-01-02 Ana risk d 07-07 10:00:00 [place] 13:30: [id number] 00 Nutrition enteral Nutrition Resolve 2019-02-06 Ana therapy d 07-07 11:15:00 [place] 13:30: [id number] 00 Safety structural Safety Resolve 2019-02-06 Ana barriers d 07-07 11:15:00 [place] present 13:30: [id number] 00 Safety fall risk Safety Resolve 2019-02-06 Ana factor d 07-07 11:15:00 [place] present 13:30: [id number] 00 Safety risk for Safety Resolve 2019-02-06 Ana hospitaliza d 07-07 11:15:00 [place] tion 13:30: [id number] 00 Medication potential Meds Resolve 2019-02-06 Ana clinically d 07-07 11:15:00 [place] significant 13:30: [id number] medication 00 issue Musculoskel requires Musculoske Resolve 2019-02-06 Ana etal human letal d 07-07 11:15:00 [place] assist to 13:30: [id number] leave home 00 IV IV present IV Resolve 2019-02-06 Rea d 9-30 11:15:00 Lissette [id number] Respiratory dyspnea Respirator Resolve 2017-102019-02-06 Mercedez present y d 0-16 11:15:00 Ingra[place] 13:35: [id number] 00 Neuro confusion Neuro/Emot Resolve 2017-102019-02-06 Mercedez present ion d 0-16 11:15:00 Ingra[place] 13:35: [id number] 00 Neuro depressive Neuro/Emot Resolve 2017-102019-02-06 Mercedez feelings ion d 0-16 11:15:00 Ingrahm present 13:35: [id number] 00 Safety can be left Safety Resolve 2017-102019-02-06 Mercedez alone for d 0-18 11:15:00 Ingrahm only short 08:10: [id number] periods 00 Integument surgical Integument Resolve 2017-102018-10-30 Shila wound d 1-15 10:10:00 Brian present 08:55: [id number] 00 Elimination GI drain or Eliminatio Resolve 2017-102019-02-06 Shila tube n d 1-15 11:15:00 Brian present 08:55: [id number] 00 Neuro anxiety Neuro/Emot Resolve 2017-102019-02-06 Shila present ion d 1-15 11:15:00 Brian 08:55: [id number] 00 Medication injectable Meds Resolve 2017-102019-02-06 Shila med d 1-15 11:15:00 Brian assistance 08:55: [id number] required 00 Safety fire risk Safety Resolve 2017-102019-02-06 Shila present d 1-15 11:15:00 Brian 13:00: [id number] 00 Elimination urinary Eliminatio Resolve 2019-02-06 Mercedez incontinenc n d 1- 11:15:00 Ingrahm e 14:20: [id number] 00 Pain frequent Pain Mgmt Resolve 2019-02-06 Mercedez pain d 2-15 11:15:00 Ingrahm 10:15: [id number] 00 Safety risk for Safety Unknown Leanna denis 02-06 Regeczi tion 15:45: [id number] 00 Respiratory lung sounds Respirator Resolve 2019-04-03 Leanna deficit y d 4-23 10:01:00 Regeczi 13:20: [id number] 00 Respiratory smoker Respirator Resolve 2019-04-03 Leanna y d 4-29 10:01:00 Regeczi 12:10: [id number] 00 Respiratory dyspnea Respirator Resolve 2019-06-05 Mercedez present y d 5-15 10:30:00 Ingrahm 09:00: [id number] 00 Integument surgical Integument Resolve 2019-03-27 Mercedez wound d 5-15 09:15:00 Ingrahm present 09:00: [id number] 00 Nutrition enteral Nutrition Resolve 2019-03-27 Mercedez therapy d 5-15 09:15:00 Ingrahm 09:00: [id number] 00 Elimination urinary Eliminatio Resolve 2019-04-10 Mercedez incontinenc n d 5-15 09:30:00 Ingrahm e 09:00: [id number] 00 Neuro confusion Neuro/Emot Active Mercedez present ion 5-15 Ingrahm 09:00: [id number] 00 Neuro anxiety Neuro/Emot Active 2018- Mercedez present ion 5-15 Ingrahm 09:00: [id number] 00 Neuro depressive Neuro/Emot Active 2018- Mercedez feelings ion 5-15 Ingrahm present 09:00: [id number] 00 Neuro impaired Neuro/Emot Active 2018- Mercedez decision-ma ion 5-15 Ingrahm sonali 09:00: [id number] 00 Activity self-care Activity Resolve 2019-05-20 Mercedez deficit d 5-15 11:15:00 Ingrahm 09:00: [id number] 00 Safety fall risk Safety Resolve 2019-07-17 Mercedez factor d 5-15 10:35:00 Ingrahm present 09:00: [id number] 00 Safety risk for Safety Resolve 2019-07-17 Mercedez hospitaliza d 5-15 10:35:00 Ingrahm tion 09:00: [id number] 00 Medication potential Meds Resolve 2019-03-27 Mercedez clinically d 5-15 09:15:00 Ingrahm significant 09:00: [id number] medication 00 issue Integument surgical Integument Resolve 2019-05-20 Mercedez wound d 7-12 11:15:00 Ingrahm present 10:00: [id number] 00 Nutrition enteral Nutrition Resolve 2019-06-26 Mercedez therapy d 7-12 10:35:00 Ingrahm 10:00: [id number] 00 Respiratory dyspnea Respirator Resolve 2019-08-07 Leanna present y d 06-26 10:25:00 Regeczi 10:35: [id number] 00 Respiratory smoker Respirator Resolve 2019-07-01 Leanna y d 06-26 10:15:00 Regeczi 10:35: [id number] 00 Endo/Han anti-coagul Endo/Han Resolve 2019-07-23 Leanna ation d 06-26 10:15:00 Regeczi therapy 10:35: [id number] 00 Elimination urinary Eliminatio Resolve 2019-07-23 Leanna incontinenc n d 06-26 10:15:00 Regeczi e 10:35: [id number] 00 Elimination nausea/vomi Eliminatio Resolve 2019-07-01 Leanna ting n d 06-26 10:15:00 Regeczi 10:35: [id number] 00 Integument surgical Integument Resolve 2019-07-23 Mercedez wound d 9-11 10:15:00 Ingrahm present 10:15: [id number] 00 Nutrition enteral Nutrition Resolve 2019-07-23 Mercedez therapy d 9 10:15:00 Ingrahm 10:15: [id number] 00 Respiratory smoker Respirator Resolve 2019-07-16 Leanna y d 07-16 10:05:00 Regeczi 10:05: [id number] 00 Elimination diarrhea Eliminatio Resolve 2019-07-23 Leanna n d 07-17 10:15:00 Regeczi 10:35: [id number] 00 Cardio hypertensio Cardiovasc Resolve 2018-102019-07-30 Leanna eastman d 003 10:00:00 Regeczi 10:15: [id number] 00 Safety risk for Safety Resolve 2018-102019-07-23 Leanna hospitaliza d 0-03 10:15:00 Regeczi tion 10:15: [id number] 00 24 Hr Diet knowledge/s NT: 24Hr Resolve 2018-102019-07-23 Wen kill Diet d 0-03 15:00:00 [place] deficit - 15:00: [id number] pt 00 Nutritional eating NT: Resolve 2018-102019-07-23 Wen Barrier difficultie Barriers d 0-03 15:00:00 [place] s present 15:00: [id number] 00 Safety risk for Safety Resolve 2018-102019-08-07 Roseline hospitaliza d 0-04 10:25:00 [place] tion 14:00: [id number] 00 Social financial MURIEL: Active 2018-10 [facility] Services resource Social 0-04 [place] deficit Services 14:00: [id number] 00 Social support MURIEL: Active 2018-10 [facility] deficit Social 0-04 [place] Services 14:00: [id number] 00 Social knowledge/s MURIEL: Active 2018-10 [facility] kill Social 0-04 [place] deficit - Services 14:00: [id number] pt 00 Social financial MURIEL: Unknown 2018-10 [facility] Services resource Social 0-10 Ingrahm deficit Services 15:00: [id number] 00 Social knowledge/s MURIEL: Unknown 2018-10 [facility] Services kill Social 0-10 Ingrahm deficit - Services 15:00: [id number] pt 00 Respiratory lung sounds Respirator Resolve 2018-102019-08-07 Leanna deficit y d 0-18 10:25:00 Regeczi 10:25: [id number] 00 Respiratory dyspnea Respirator Resolve 2018-102019-10-23 Mercedez present y d 10-28 10:15:00 Ingrahm 11:00: [id number] 00 Integument surgical Integument Resolve 2018-102019-09-11 Mercedez wound d 10-28 09:50:00 Ingrahm present 11:00: [id number] 00 Nutrition enteral Nutrition Resolve 2018-102019-09-11 Mercedez therapy d 10-28 09:50:00 Ingrahm 11:00: [id number] 00 Elimination urinary Eliminatio Resolve 2018-102019-09-11 Mercedez incontinenc n d 10-28 09:50:00 Ingrahm e 11:00: [id number] 00 Safety fall risk Safety Resolve 2018-102019-09-11 Mercedez factor d 10-28 09:50:00 Ingrahm present 11:00: [id number] 00 Safety risk for Safety Resolve 2018-2019-09-23 Mercedez hospitaliza d 10-28 11:10:00 Ingrahm tion 11:00: [id number] 00 Safety risk for Safety Unknown 2018-10 Mercedez hospitaliza 11-24 Ingrahm tion 15:00: [id number] 00 Cardio hypertensio Cardiovasc Active Leanna n ular 10-23 Regeczi 10:15: [id number] 00 Elimination urinary Eliminatio Active Leanna incontinenc n 10-23 Regeczi e 10:15: [id number] 00 Elimination constipatio Eliminatio Active Leanna n n 10-23 Regeczi 10:15: [id number] 00 Allergies, Adverse Reactions, Alerts Allergy Allergy Status Severity Reaction(s) Onset Inactive Treating Comments Name Type Date Date Clinician latex Base Active Unknown Hives 2017- [facility] Ingredient 07-07 [facility] [id number] amoxicillin Base Active Unknown Anaphylaxis 2017- [facility] Ingredient 07-07 [facility] [id number] bee venom Base Active Unknown Anaphylaxis 2017- [facility] protein Ingredient 07-07 [facility] ([facility]) [id number] Botox Medication Active Unknown Anaphylaxis 2017- Mercedez Name ID 07-07 [facility] [id number] contrast Unknown Active Unknown Anaphylaxis 2017- Mercedez dye 07-07 [facility] [id number] Penicillins Allergen Active Unknown Anaphylaxis 2018- [facility] Group 07-07 [facility] [id number] shellfish Base Active Unknown Anaphylaxis 2018-0 Mercedez derived Ingredient 07-07 [facility] [id number] adhesive Base Active Unknown Hives 2017- Mer[facility]ez tape Ingredient 07-07 [facility] [id number] nsaids Unknown Active Unknown stomach issues 2017- [facility]cedez 07-07 [facility] [id number] oxycodone Base Active Unknown swelling 2017- [facility] Ingredient 07-07 [facility] [id number] Betadine Medication Active Unknown Rash 2017- [facility]ez Name ID 07-07 [facility] [id number] Hibiclens Medication Active Unknown Rash Mercedez Name ID 07-07 Janettem [id number] evironmenta Unknown Active Unknown hay fever, Rea l/seasonal watery eye, 07-07 Guidelli itching, [id number] sneeze, congestion povidone-io Base Active Unknown itching Rea dine Ingredient 07-07 Guidelli [id number] Iodine and Allergen Active Unknown Anaphylaxis Rea Iodide Group 07-07 Guidelli Containing [id number] Products albumin Base Active Unknown Anaphylaxis Rea colloid, Ingredient 07-07 Guidelli human [id number] fentanyl Base Active Unknown hallucinations Rea Ingredient 07-07 Guidelli [id number] Medications Ordered Filled Start Stop Current Ordering Indication Dosage Frequency Signature Comments Components Medication Medication Date Date Medication? Clinician (SIG) Name Name Jevity 1.5 Jevity 1.5 2018- No Blegen Unknown Unknown Pineda 0.06 Pineda 0.06 07-07 01-06 Tashia FINCH gram-1.5 gram-1.5 e kcal/mL kcal/mL [...] MINE 50 mg MINE 50 mg 07-07 Tahsia FINCH capsule capsule e famotidine famotidine 2017- [...] Unknown Unknown 4 mg 4 mg 07-07 Tashai FINCH disintegrat disintegrat e ing tablet ing [...] Unknown Unknown 40 mg 40 mg 07-07 Tsahia FINCH tablet tablet e losartan 50 losartan [...] e 40 mg e 40 mg 10-26- Tashia FINCH tablet,linda tablet,linda e yed release [...] Unknown Unknown 4 mg 4 mg 02-06 Tashia FINCH disintegrat disintegrat e ing tablet ing tablet metoprolol metoprolol 2018- No Blegen Unknown Unknown tartrate 50 tartrate 50 7 05-15 Tashia FINCH mg tablet mg tablet e isosorbide isosorbide No Blegen Unknown Unknown mononitrate mononitrate 4-27 Tashia FINCH ER 30 mg ER 30 mg e tablet,exte tablet,exte nded nded release 24 release 24 hr hr ondansetron ondansetron No Blegen Unknown Unknown 4 mg 4 mg 4- Tashia FINCH disintegrat disintegrat e ing tablet [...] Unknown Unknown tartrate 25 tartrate 25 5-15 -21 Tashia FINCH mg tablet mg tablet e [...] Blegen Unknown Unknown % topical % topical 6-06 06-20 ,Tashia cream cream e LORazepam LORazepam No Blegen Unknown Unknown 0.5 mg 0.5 mg 6-11 ,Tashia tablet tablet e albuterol albuterol 2018-10- No [...] Unknown Unknown % topical % topical 0-03 ,Tashia cream cream e metoprolol metoprolol 2018-10- No Blegen Unknown Unknown tartrate 25 tartrate 25 0-03 11-21 ,Tashia mg tablet mg tablet e Spiriva Spiriva 2018-10- Yes Blegen Unknown Unknown Respimat Respimat 0-07 10-21 Tashia FINCH 2.5 2.5 e mcg/actuati mcg/actuati on solution on solution for for inhalation inhalation spironolact spironolact 2018-10 Yes Blegen Unknown Unknown one 25 mg one 25 mg 0-21 ,Tashia tablet tablet e ipratropium ipratropium 2018-10- Yes Blegen Unknown Unknown bromide 17 bromide 17 0-21 12-05 Tashia FINCH mcg/actuati mcg/actuati e on HFA on HFA aerosol aerosol inhaler inhaler ipratropium ipratropium 2018-10- Yes Blegen Unknown Unknown bromide 17 bromide 17 0-21 12-05 ,Tashia mcg/actuati mcg/actuati e on HFA on HFA aerosol aerosol inhaler inhaler metoprolol metoprolol 2018-10 Yes Blegen Unknown Unknown tartrate 25 tartrate 25 1-21 MD,Tashia mg tablet mg tablet e ciprofloxac ciprofloxac 2018-10- Yes Blegen Unknown Unknown in 500 mg in 500 mg 11-18 12-03 ,Tashia tablet tablet e Spiriva Spiriva 2018-10 Yes Blegen Unknown Unknown Respimat Respimat 2-05 Tashia FINCH 2.5 2.5 e mcg/actuati mcg/actuati on solution on solution for for inhalation inhalation losartan losartan 2018-10 Yes Blegen Unknown Unknown 100 mg 100 mg 2-05 Tashia FINCH tablet tablet e Vital Signs Vital Name Observation Time Observation Value Comments SYSTOLIC mm[Hg] 2019-10-23 18:09:41 160 mm[Hg] mm[Hg] Method: Sit SYSTOLIC mm[Hg] 2018-11-27 18:04:11 142 mm[Hg] mm[Hg] Method: Stand SYSTOLIC mm[Hg] 2019-06-27 18:07:43 122 mm[Hg] mm[Hg] Method: Lie DIASTOLIC mm[Hg] 2019-10-23 18:09:41 90 mm[Hg] mm[Hg] Method: Sit DIASTOLIC mm[Hg] 2018-11-27 18:04:11 84 mm[Hg] mm[Hg] Method: Stand DIASTOLIC mm[Hg] 2019-06-27 18:07:43 50 mm[Hg] mm[Hg] Method: Lie PULSE 2019-10-23 18:09:41 76 /min /min RESP RATE 2019-10-23 18:09:41 16 /min /min Procedures This patient has no known procedures. Results This patient has no known results.
--- OUTSIDE RECORDS SUMMARY | 2019-10-25 19:41 | XMS REPORT ---
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 w/o ang pctrs ang pctrs Encounter Encounter Diagnosis Active Mercedez for for 07-07 Ingrahm attention attention [id number] to to gastrostomy gastrostomy Gastro-esop Gastro-esop Diagnosis Active Mercedez hageal hageal 07-07 Ingrahm reflux reflux [id number] disease disease without without esophagitis esophagitis Other Other Diagnosis Active Mercedez specified specified 07-07 Ingrahm arthritis, arthritis, [id number] unspecified unspecified site site Essential Essential Diagnosis Active Mercedez (primary) (primary) 07-07 Ingrahm hypertensio hypertensio [id number] n n [place] custodial Diagnosis Active Mercedez (current) (current) Ingrahm use of use of [id number] anticoagula anticoagula nts nts Nicotine Nicotine Diagnosis Active Mercedez dependence, dependence, Ingrahm cigarettes, cigarettes, [id number] uncomplicat uncomplicat ed ed Personal Personal Diagnosis Active Mercedez history of history of Ingrahm malignant malignant [id number] neoplasm of neoplasm of breast breast Prsnl hx of Prsnl hx of Diagnosis Active Mercedez TIA (TIA), TIA (TIA), Ingrahm and cereb and cereb [id number] infrc w/o infrc w/o resid resid deficits deficits Pain frequent Pain Mgmt Resolve 2018-11-26 Ana pain d 9 16:15:00 [place] 13:30: [id number] 00 Pain severe pain Pain Mgmt Resolve 2018-11-26 Ana d 9 16:15:00 [place] 13:30: [id number] 00 Endo/Han anti-coagul Endo/Han Resolve 2019-02-06 Ana ation d 07-07 11:15:00 [place] therapy 13:30: [id number] 00 Integument surgical Integument Resolve 2018-08-05 Rea wound d 07-07 13:35:00 Guidelli present 13:30: [id number] 00 Nutrition nutritional Nutrition Resolve 2019-01-02 Ana restriction d 07-07 10:00:00 [place] s 13:30: [id number] 00 Nutrition changing Nutrition Resolve 2019-01-02 Ana weight/appe d 07-07 10:00:00 [place] tite 13:30: [id number] 00 Nutrition nutritional Nutrition Resolve 2019-01-02 Ana risk d 07-07 10:00:00 [place] 13:30: [id number] 00 Nutrition enteral Nutrition Resolve 2019-02-06 Ana therapy d 07-07 11:15:00 [place] 13:30: [id number] 00 Safety structural Safety Resolve 2019-02-06 Ana barriers d 07-07 11:15:00 [place] present 13:30: [id number] 00 Safety fall risk Safety Resolve 2019-02-06 Ana factor d 07-07 11:15:00 [place] present 13:30: [id number] 00 Safety risk for Safety Resolve 2019-02-06 Ana hospitaliza d 07-07 11:15:00 [place] tion 13:30: [id number] 00 Medication potential Meds Resolve 2019-02-06 Ana clinically d 07-07 11:15:00 [place] significant 13:30: [id number] medication 00 issue Musculoskel requires Musculoske Resolve 2019-02-06 Ana etal human letal d 07-07 11:15:00 [place] assist to 13:30: [id number] leave home 00 IV IV present IV Resolve 2019-02-06 Rea d 9-30 11:15:00 Lissette [id number] Respiratory dyspnea Respirator Resolve 2017-102019-02-06 Mercedez present y d 0-16 11:15:00 Ingrahm 13:35: [id number] 00 Neuro confusion Neuro/Emot Resolve 2017-102019-02-06 Mercedez present ion d 0-16 11:15:00 Ingrahm 13:35: [id number] 00 Neuro depressive Neuro/Emot Resolve 2017-102019-02-06 Mercedez feelings ion d 0-16 11:15:00 Ingrahm present 13:35: [id number] 00 Safety can be left Safety Resolve 2017-102019-02-06 Mercedez alone for d 0-18 11:15:00 Ingrahm only short 08:10: [id number] periods 00 Integument surgical Integument Resolve 2017-102018-10-30 Shila wound d 1-15 10:10:00 Brian present 08:55: [id number] 00 Elimination GI drain or Eliminatio Resolve 2017-102019-02-06 Shila tube n d 1-15 11:15:00 Brian present 08:55: [id number] 00 Neuro anxiety Neuro/Emot Resolve 2017-102019-02-06 Shila present ion d 1-15 11:15:00 Brian 08:55: [id number] 00 Medication injectable Meds Resolve 2017-102019-02-06 Shila med d 1-15 11:15:00 Brian assistance 08:55: [id number] required 00 Safety fire risk Safety Resolve 2017-102019-02-06 Shila present d 1-15 11:15:00 Brian 13:00: [id number] 00 Elimination urinary Eliminatio Resolve 2019-02-06 Mercedez incontinenc n d 1- 11:15:00 Ingrahm e 14:20: [id number] 00 Pain frequent Pain Mgmt Resolve 2019-02-06 Mercedez pain d 2-15 11:15:00 Ingrahm 10:15: [id number] 00 Safety risk for Safety Unknown Leanna denis 02-06 Regeczi tion 15:45: [id number] 00 Respiratory lung sounds Respirator Resolve 2019-04-03 Leanna deficit y d 4-23 10:01:00 Regeczi 13:20: [id number] 00 Respiratory smoker Respirator Resolve 2019-04-03 Leanna y d 4-29 10:01:00 Regeczi 12:10: [id number] 00 Respiratory dyspnea Respirator Resolve 2019-06-05 Mercedez present y d 5-15 10:30:00 Ingrahm 09:00: [id number] 00 Integument surgical Integument Resolve 2019-03-27 Mercedez wound d 5-15 09:15:00 Ingrahm present 09:00: [id number] 00 Nutrition enteral Nutrition Resolve 2019-03-27 Mercedez therapy d 5-15 09:15:00 Ingrahm 09:00: [id number] 00 Elimination urinary Eliminatio Resolve 2019-04-10 Mercedez incontinenc n d 5-15 09:30:00 Ingrahm e 09:00: [id number] 00 Neuro confusion Neuro/Emot Active Mercedez present ion 5-15 Ingrahm 09:00: [id number] 00 Neuro anxiety Neuro/Emot Active 2018- Mercedez present ion 5-15 Ingrahm 09:00: [id number] 00 Neuro depressive Neuro/Emot Active 2018- Mercedez feelings ion 5-15 Ingrahm present 09:00: [id number] 00 Neuro impaired Neuro/Emot Active 2018- Mercedez decision-ma ion 5-15 Ingrahm sonali 09:00: [id number] 00 Activity self-care Activity Resolve 2019-05-20 Mercedez deficit d 5-15 11:15:00 Ingrahm 09:00: [id number] 00 Safety fall risk Safety Resolve 2019-07-17 Mercedez factor d 5-15 10:35:00 Ingrahm present 09:00: [id number] 00 Safety risk for Safety Resolve 2019-07-17 Mercedez hospitaliza d 5-15 10:35:00 Ingrahm tion 09:00: [id number] 00 Medication potential Meds Resolve 2019-03-27 Mercedez clinically d 5-15 09:15:00 Ingrahm significant 09:00: [id number] medication 00 issue Integument surgical Integument Resolve 2019-05-20 Mercedez wound d 7-12 11:15:00 Ingrahm present 10:00: [id number] 00 Nutrition enteral Nutrition Resolve 2019-06-26 Mercedez therapy d 7-12 10:35:00 Ingrahm 10:00: [id number] 00 Respiratory dyspnea Respirator Resolve 2019-08-07 Leanna present y d 06-26 10:25:00 Regeczi 10:35: [id number] 00 Respiratory smoker Respirator Resolve 2019-07-01 Leanna y d 06-26 10:15:00 Regeczi 10:35: [id number] 00 Endo/Han anti-coagul Endo/Han Resolve 2019-07-23 Leanna ation d 06-26 10:15:00 Regeczi therapy 10:35: [id number] 00 Elimination urinary Eliminatio Resolve 2019-07-23 Leanna incontinenc n d 06-26 10:15:00 Regeczi e 10:35: [id number] 00 Elimination nausea/vomi Eliminatio Resolve 2019-07-01 Leanna ting n d 06-26 10:15:00 Regeczi 10:35: [id number] 00 Integument surgical Integument Resolve 2019-07-23 Mercedez wound d 9-11 10:15:00 Ingrahm present 10:15: [id number] 00 Nutrition enteral Nutrition Resolve 2019-07-23 Mercedez therapy d 9 10:15:00 Ingrahm 10:15: [id number] 00 Respiratory smoker Respirator Resolve 2019-07-16 Leanna y d 07-16 10:05:00 Regeczi 10:05: [id number] 00 Elimination diarrhea Eliminatio Resolve 2019-07-23 Leanna n d 07-17 10:15:00 Regeczi 10:35: [id number] 00 Cardio hypertensio Cardiovasc Resolve 2018-102019-07-30 Leanna eastman d 003 10:00:00 Regeczi 10:15: [id number] 00 Safety risk for Safety Resolve 2018-102019-07-23 Leanna hospitaliza d 0-03 10:15:00 Regeczi tion 10:15: [id number] 00 24 Hr Diet knowledge/s NT: 24Hr Resolve 2018-102019-07-23 Wen kill Diet d 0-03 15:00:00 [place] deficit - 15:00: [id number] pt 00 Nutritional eating NT: Resolve 2018-102019-07-23 Wen Barrier difficultie Barriers d 0-03 15:00:00 [place]land s present 15:00: [id number] Safety risk for Safety Resolve 2018-102019-08-07 Roseline hospitaliza d 0-04 10:25:00 [place] tion 14:00: [id number] 00 Social financial MURIEL: Active 2018-10 [facility] Services resource Social 0-04 [place] deficit Services 14:00: [id number] 00 Social support MURIEL: Active 2018-10 [facility] deficit Social 0-04 [place] Services 14:00: [id number] 00 Social knowledge/s MURIEL: Active 2018-10 [facility] kill Social 0-04 [place] deficit - Services 14:00: [id number] pt 00 Social financial MURIEL: Unknown 2018-10 [facility] Services resource Social 0-10 Ingrahm deficit Services 15:00: [id number] 00 Social knowledge/s MURIEL: Unknown 2018-10 Mer[facility] Services kill Social 0-10 Ingrahm deficit - Services 15:00: [id number] pt 00 Respiratory lung sounds Respirator Resolve 2018-102019-08-07 Leanna deficit y d 0-18 10:25:00 Regeczi 10:25: [id number] 00 Respiratory dyspnea Respirator Active 2018-10 Mercedez present y 10-28 Ingrahm 11:00: [id number] 00 Integument surgical Integument Resolve 2018-102019-09-11 Mercedez wound d 10-28 09:50:00 Ingrahm present 11:00: [id number] 00 Nutrition enteral Nutrition Resolve 2018-102019-09-11 Mercedez therapy d 10-28 09:50:00 Ingrahm 11:00: [id number] 00 Elimination urinary Eliminatio Resolve 2018-102019-09-11 Mercedez incontinenc n d 10-28 09:50:00 Ingrahm e 11:00: [id number] 00 Safety fall risk Safety Resolve 2018-102019-09-11 Mercedez factor d 10-28 09:50:00 Ingrahm present 11:00: [id number] 00 Safety risk for Safety Resolve 2018-102019-09-23 Mercedez appiahiza d 10-28 11:10:00 Ingrahm tion 11:00: [id number] 00 Safety risk for Safety Unknown 2018-10 Mercedez hospitaliza 11-24 Ingrahm tion 15:00: [id number] 00 Allergies, Adverse Reactions, Alerts Allergy Allergy Status Severity Reaction(s) Onset Inactive Treating Comments Name Type Date Date Clinician latex Base Active Unknown Hives Mercedez Ingredient 07-07 Ingrm [id number] amoxicillin Base Active Unknown Anaphylaxis Mercedez Ingredient 07-07 Ingrm [id number] bee venom Base Active Unknown Anaphylaxis Mercedez protein Ingredient 07-07 Ingrm (honey bee) [id number] Botox Medication Active Unknown Anaphylaxis Mercedez Name ID 07-07 [facility] [id number] contrast Unknown Active Unknown Anaphylaxis Mercedez dye 07-07 [facility] [id number] Penicillins Allergen Active Unknown Anaphylaxis Mercedez Group 07-07 Ingrm [id number] shellfish Base Active Unknown Anaphylaxis Mercedez derived Ingredient 07-07 [facility] [id number] adhesive Base Active Unknown Hives Mercedez tape Ingredient 07-07 [facility] [id number] nsaids Unknown Active Unknown stomach issues Mercedez 07-07 Ingrm [id number] oxycodone Base Active Unknown swelling Mercedez Ingredient 07-07 [facility] [id number] Betadine Medication Active Unknown Rash Mercedez Name ID 07-07 [facility] [id number] Hibiclens Medication Active Unknown Rash Mercedez Name ID 07-07 [facility] [id number] evironmenta Unknown Active Unknown hay fever, Rea l/seasonal watery eye, 07-07 Guidelli itching, [id number] sneeze, congestion povidone-io Base Active Unknown itching Rea dine Ingredient 07-07 Guidelli [id number] Iodine and Allergen Active Unknown Anaphylaxis Rea Iodide Group 07-07 Guidelli Containing [id number] Products albumin Base Active Unknown Anaphylaxis Rea colloid, Ingredient 07-07 Guidelli human [id number] fentanyl Base Active Unknown hallucinations Rea Ingredient 07-07 Guidelli [id number] Medications Ordered Filled Start Stop Current Ordering [...]
--- OUTSIDE RECORDS SUMMARY | 2019-10-25 19:42 | XMS REPORT ---
:1955 Author Organization [facility] Care Team Providers Name Role Phone Unavailable Unavailable Unavailable Problems Condition Condition Condition Status Onset Resolution Last Treating Comments Name Details Category Date Date Treatment Clinician Date Pain frequent Pain Mgmt Resolve 2018-11-26 Ana pain d 07-07 16:15:00 [place] 13:30: [id number] 00 Pain severe pain Pain Mgmt Resolve 2018-11-26 Ana d 07-07 16:15:00 [place] 13:30: [id number] 00 Endo/Han anti-coagul Endo/Han Resolve 2019-02-06 Ana ation d 07-07 11:15:00 [place] therapy 13:30: [id number] 00 Integument surgical Integument Resolve 2018-08-05 Rea wound d 07-07 13:35:00 [place] present 13:30: [id number] 00 Nutrition nutritional Nutrition Resolve 2019-01-02 Ana restriction d 07-07 10:00:00 [place] s 13:30: [id number] 00 Nutrition changing Nutrition Resolve 2019-01-02 Ana weight/appe d 07-07 10:00:00 [place] tite 13:30: [id number] 00 Nutrition nutritional Nutrition Resolve 2019-01-02 Ana risk d 07-07 10:00:00 [place] 13:30: [id number] 00 Nutrition enteral Nutrition Resolve 2019-02-06 Ana therapy d 07-07 11:15:00 [place] 13:30: [id number] 00 Safety structural Safety Resolve 2019-02-06 Ana barriers d 07-07 11:15:00 [place] present 13:30: [id number] 00 Safety fall risk Safety Resolve 2019-02-06 Ana factor d 07-07 11:15:00 [place] present 13:30: [id number] 00 Safety risk for Safety Resolve 2019-02-06 Ana hospitaliza d 07-07 11:15:00 [place] tion 13:30: [id number] 00 Medication potential Meds Resolve 2019-02-06 Ana clinically d 07-07 11:15:00 [place] significant 13:30: [id number] medication 00 issue Musculoskel requires Musculoske Resolve 2019-02-06 Ana etal human letal d 07-07 11:15:00 [place] assist to 13:30: [id number] leave home 00 IV IV present IV Resolve 2019-02-06 Rea d 07-20 11:15:00 [place]iss[place] [id number] Respiratory dyspnea Respirator Resolve 2017-102019-02-06 [place] present y d 0-16 11:15:00 [place] 13:35: [id number] 00 Neuro confusion Neuro/Emot Resolve 2017-102019-02-06 [place] present ion d 0-16 11:15:00 [place] 13:35: [id number] 00 Neuro depressive Neuro/Emot Resolve 2017-102019-02-06 [place] feelings ion d 0-16 11:15:00 [place] present 13:35: [id number] 00 Safety can be left Safety Resolve 2017-102019-02-06 [place] alone for d 0-18 11:15:00 [place] only short 08:10: [id number] periods 00 Integument surgical Integument Resolve 2017-102018-10-30 Shila wound d 1-15 10:10:00 Brian present 08:55: [id number] 00 Elimination GI drain or Eliminatio Resolve 2017-102019-02-06 Shila tube n d 1-15 11:15:00 Brian present 08:55: [id number] 00 Neuro anxiety Neuro/Emot Resolve 2017-102019-02-06 Shila present ion d 1-15 11:15:00 Brian 08:55: [id number] 00 Medication injectable Meds Resolve 2017-102019-02-06 Shila med d 11-04 11:15:00 Brian assistance 08:55: [id number] required 00 Safety fire risk Safety Resolve 2017-102019-02-06 Shila present d 1-15 11:15:00 Brian 13:00: [id number] 00 Elimination urinary Eliminatio Resolve 2019-02-06 [place] incontinenc n d 11-18 11:15:00 [place] e 14:20: [id number] 00 Pain frequent Pain Mgmt Resolve 2019-02-06 [place] pain d 2-15 11:15:00 [place] 10:15: [id number] 00 Safety risk for Safety Unknown Leanna hospitaliza 02-06 [place] tion 15:45: [id number] 00 Respiratory lung sounds Respirator Resolve 2019-04-03 Leanna deficit y d 02-10 10:01:00 [place] 13:20: [id number] 00 Respiratory smoker Respirator Resolve 2019-04-03 Leanna y d 02-16 10:01:00 [place] 12:10: [id number] 00 Respiratory dyspnea Respirator Resolve 2019-06-05 [place] present y d 15 10:30:00 [place] 09:00: [id number] 00 Integument surgical Integument Resolve 2019-03-27 [place] wound d 15 09:15:00 [place] present 09:00: [id number] 00 Nutrition enteral Nutrition Resolve 2019-03-27 [place] therapy d 15 09:15:00 [place] 09:00: [id number] 00 Elimination urinary Eliminatio Resolve 2019-04-10 [place] incontinenc n d 5-15 09:30:00 [place] e 09:00: [id number] 00 Neuro confusion Neuro/Emot Active [place] present ion 5-15 [place] 09:00: [id number] 00 Neuro anxiety Neuro/Emot Active 2018- [place] present ion 5-15 [place] 09:00: [id number] 00 Neuro depressive Neuro/Emot Active 2018- [place] feelings ion 5-15 [place] present 09:00: [id number] 00 Neuro impaired Neuro/Emot Active [place] decision-ma ion 5-15 [place] sonali 09:00: [id number] 00 Activity self-care Activity Resolve 2019-05-20 [place] deficit d 5-15 11:15:00 [place] 09:00: [id number] 00 Safety fall risk Safety Resolve 2019-07-17 [place] factor d 5-15 10:35:00 [place] present 09:00: [id number] 00 Safety risk for Safety Resolve 2019-07-17 [place] hospitaliza d 5-15 10:35:00 [place] tion 09:00: [id number] 00 Medication potential Meds Resolve 2019-03-27 [place] clinically d 515 09:15:00 [place] significant 09:00: [id number] medication 00 issue Integument surgical Integument Resolve 2019-05-20 [place] wound d 7-12 11:15:00 [place] present 10:00: [id number] 00 Nutrition enteral Nutrition Resolve 2019-06-26 [place] therapy d 05-01 10:35:00 [place] 10:00: [id number] 00 Respiratory dyspnea Respirator Resolve 2019-08-07 Leanna present y d 06-26 10:25:00 [place] 10:35: [id number] 00 Respiratory smoker Respirator Resolve 2019-07-01 Leanna y d 06-26 10:15:00 [place] 10:35: [id number] 00 Endo/Han anti-coagul Endo/Han Resolve 2019-07-23 Leanna ation d 06-26 10:15:00 [place] therapy 10:35: [id number] 00 Elimination urinary Eliminatio Resolve 2019-07-23 Leanna incontinenc n d 06-26 10:15:00 [place] e 10:35: [id number] 00 Elimination nausea/vomi Eliminatio Resolve 2019-07-01 Leanna ting n d 06-26 10:15:00 [place] 10:35: [id number] 00 Integument surgical Integument Resolve 2019-07-23 [place] wound d 9-11 10:15:00 [place] present 10:15: [id number] 00 Nutrition enteral Nutrition Resolve 2019-07-23 [place] therapy d 9-11 10:15:00 [place] 10:15: [id number] 00 Respiratory smoker Respirator Resolve 2019-07-16 Leanna y d 07-16 10:05:00 [place] 10:05: [id number] 00 Elimination diarrhea Eliminatio Resolve 2019-07-23 Leanna n d 9 10:15:00 [place] 10:35: [id number] 00 Cardio hypertensio Cardiovasc Resolve 2018-102019-07-30 Leanna n ular d 0-03 10:00:00 [place] 10:15: [id number] 00 Safety risk for Safety Resolve 2018-102019-07-23 Leanna hospitaliza d 0-03 10:15:00 [place] tion 10:15: [id number] 00 24 Hr Diet knowledge/s NT: 24Hr Resolve 2018-102019-07-23 Wen kill Diet d 0-03 15:00:00 [place] deficit - 15:00: [id number] pt 00 Nutritional eating NT: Resolve 2018-102019-07-23 Wen Barrier difficultie Barriers d 0-03 15:00:00 [place] s present 15:00: [id number] Safety risk for Safety Resolve 2018-102019-08-07 Roseline hospitaliza d 0-04 10:25:00 [place] tion 14:00: [id number] 00 Social financial MURIEL: Active 2018-10 [facility] Services resource Social 0-04 [place] deficit Services 14:00: [id number] 00 Social support MURIEL: Active 2018-10 [facility] deficit Social 0-04 [place] Services 14:00: [id number] 00 Social knowledge/s MURIEL: Active 2018-10 [facility] kill Social 0-04 [place] deficit - Services 14:00: [id number] pt 00 Social financial MURIEL: Unknown 2018-10 [place] Services resource Social 0-10 [place] deficit Services 15:00: [id number] 00 Social knowledge/s MURIEL: Unknown 2018-10 [place] Services kill Social 0-10 [place] deficit - Services 15:00: [id number] pt 00 Respiratory lung sounds Respirator Resolve 2018-102019-08-07 Leanna deficit y d 0-18 10:25:00 [place] 10:25: [id number] 00 Respiratory dyspnea Respirator Active 2018-10 [place] present y 10-28 [place] 11:00: [id number] 00 Integument surgical Integument Resolve 2018-102019-09-11 [place] wound d 10-28 09:50:00 [place] present 11:00: [id number] 00 Nutrition enteral Nutrition Resolve 2018-102019-09-11 [place] therapy d 10-28 09:50:00 [place] 11:00: [id number] 00 Elimination urinary Eliminatio Resolve 2018-102019-09-11 [place] incontinenc n d 10-28 09:50:00 [place] e 11:00: [id number] 00 Safety fall risk Safety Resolve 2018-102019-09-11 [place] factor d 10-28 09:50:00 [place] present 11:00: [id number] 00 Safety risk for Safety Resolve 2018-102019-09-23 [place] hospitaliza d 10-28 11:10:00 [place] tion 11:00: [id number] 00 Safety risk for Safety Unknown 2018-10 [place] hospitaliza 11-24 [place] tion 15:00: [id number] 00 Allergies, Adverse Reactions, Alerts Allergy Allergy Status Severity Reaction(s) Onset Inactive Treating Comments Name Type Date Date Clinician latex Base Active Unknown Hives [place] Ingredient 07-07 [facility] [id number] amoxicillin Base Active Unknown Anaphylaxis [place] Ingredient 07-07 [facility] [id number] bee venom Base Active Unknown Anaphylaxis [place] protein Ingredient 07-07 [facility] (honey bee) [id number] Botox Medication Active Unknown Anaphylaxis [place] Name ID 07-07 [facility] [id number] contrast Unknown Active Unknown Anaphylaxis 2017- [place] dye 07-07 [facility] [id number] Penicillins Allergen Active Unknown Anaphylaxis [place] Group 07-07 [facility] [id number] shellfish Base Active Unknown Anaphylaxis [place] derived Ingredient 07-07 [facility] [id number] adhesive Base Active Unknown Hives [place] tape Ingredient 07-07 [facility] [id number] nsaids Unknown Active Unknown stomach issues [place] 07-07 [facility] [id number] oxycodone Base Active Unknown swelling [place] Ingredient 07-07 In[place] [id number] Betadine Medication Active Unknown Rash [place] Name ID 07-07 Dimitrios [id number] Hibiclens Medication Active Unknown Rash [place] Name ID 07-07 Dimitrios [id number] evironmenta Unknown Active Unknown hay fever, Rea l/seasonal watery eye, 07-07 [place] itching, [id number] sneeze, congestion povidone-io Base Active Unknown itching Rea dine Ingredient 07-07 [place] [id number] Iodine and Allergen Active Unknown Anaphylaxis Rea Iodide Group 07-07 [place] Containing [id number] Products albumin Base Active Unknown Anaphylaxis Rea colloid, Ingredient 07-07 Guidelli human [id number] fentanyl Base Active Unknown hallucinations Rea Ingredient 07-07 [place] [id number] Medications Ordered Filled Start Stop Current Ordering [...] Blegen Unknown Unknown tartrate 50 tartrate 50 07-0715 Tashia FINCH mg tablet mg tablet e [...] n 40 mg n 40 mg 11-18 ,Tashia tablet tablet e morphine 10 morphine 10 2018- No [place] Unknown Unknown mg/5 mL mg/5 mL 11-18 Tashia FINCH oral oral e solution solution HYDROmorpho HYDROmorpho 2018- No [place] Unknown Unknown ne 4 mg ne 4 mg 12-23- ,[place] tablet tablet levoFLOXaci levoFLOXaci 2018- No [place] Unknown Unknown n 500 mg n 500 mg 01-13 ,Tashia tablet tablet e cyanocobala cyanocobala No Blegen [...] mg 10-26- Tashia FINCH capsule capsule e pantoprazol pantoprazol 2018- No [place] Unknown Unknown e 40 mg e 40 mg 10-26 05-15 Tashia FINCH tablet,linda tablet,linda e yed release yed release morphine ER morphine ER 2018- No [place] Unknown Unknown 30 mg 30 mg 10-26 04-24 ,Tashia tablet,exte tablet,exte e nded nded release release HYDROmorpho HYDROmorpho No [place] Unknown Unknown ne 4 mg ne 4 mg 12-23 ,[place] tablet tablet diphenhydrA diphenhydrA 2018- No [place] Unknown Unknown MINE 50 mg MINE 50 mg 1- 09-27 Tashia FINCH capsule capsule e ondansetron ondansetron 2018- No [place] Unknown Unknown 4 mg 4 mg 4-29 Tashia FINCH disintegrat disintegrat e ing tablet ing tablet metoprolol metoprolol 2018- No [place] Unknown Unknown tartrate 50 tartrate 50 7- 05-15 Tashia FINCH mg tablet mg tablet [...] Unknown Unknown tartrate 25 tartrate 25 5-15 11-21 Tashia FINCH mg tablet mg tablet [...] tablet 1 mg tablet 03-26- Tashia FINCH e mupirocin 2 mupirocin 2 2018- No [place] Unknown Unknown % topical % topical 03-26 06-20 Tashia FINCH cream cream e LORazepam LORazepam No [place] Unknown Unknown 0.5 mg 0.5 mg 6- Tashia FINCH tablet tablet e albuterol albuterol [...] mg tablet mg tablet e ciprofloxac ciprofloxac 2018-10 2019- Yes [place] Unknown Unknown in 500 mg in 500 mg 11-18 Tashia FINCH tablet tablet e Spiriva Spiriva 2018-10 Yes [place] Unknown Unknown Respimat Respimat 2-05 Tashia FINCH 2.5 2.5 e mcg/actuati mcg/actuati on solution on solution for for inhalation inhalation losartan losartan 2018-10 Yes [place] Unknown Unknown 100 mg 100 mg 2-05 Tashia FINCH tablet tablet e Vital Signs Vital Name Observation Time Observation Value Comments SYSTOLIC mm[Hg] 2019-09-23 18:09:11 162 mm[Hg] mm[Hg] Method: Sit SYSTOLIC mm[Hg] 2018-11-27 18:04:11 142 mm[Hg] mm[Hg] Method: Stand SYSTOLIC mm[Hg] 2019-06-27 18:07:43 122 mm[Hg] mm[Hg] Method: Lie DIASTOLIC mm[Hg] 2019-09-23 18:09:11 90 mm[Hg] mm[Hg] Method: Sit DIASTOLIC mm[Hg] 2018-11-27 18:04:11 84 mm[Hg] mm[Hg] Method: Stand DIASTOLIC mm[Hg] 2019-06-27 18:07:43 50 mm[Hg] mm[Hg] Method: Lie Procedures This patient has no known procedures. Results This patient has no known results.
--- OUTSIDE RECORDS SUMMARY | 2019-10-25 19:42 | XMS REPORT ---
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/o artery w/o ang pctrs ang pctrs Encounter Encounter Diagnosis Active Mercedez for for 07-07 Ingrahm attention attention [id number] to to gastrostomy gastrostomy Gastro-esop Gastro-esop Diagnosis Active Mercedez hageal hageal 07-07 Ingrahm reflux reflux [id number] disease disease without without esophagitis esophagitis Other Other Diagnosis Active Mercedez specified specified 07-07 Ingrahm arthritis, arthritis, [id number] unspecified unspecified site site Essential Essential Diagnosis Active Mercedez (primary) (primary) 07-07 Ingrahm hypertensio hypertensio 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 Mercedez (current) (current) Ingrahm use of use of [id number] anticoagula anticoagula nts nts Nicotine Nicotine Diagnosis Active Mercedez dependence, dependence, Ingrahm cigarettes, cigarettes, [id number] uncomplicat uncomplicat ed ed Personal Personal Diagnosis Active Mercedez history of history of Ingrahm malignant malignant [id number] neoplasm of neoplasm of breast breast Prsnl hx of Prsnl hx of Diagnosis Active Mercedez TIA (TIA), TIA (TIA), Ingrahm and cereb and cereb [id number] infrc w/o infrc w/o resid resid deficits deficits Pain frequent Pain Mgmt Resolve 2018-11-26 Ana pain d 9 16:15:00 [place] 13:30: [id number] 00 Pain severe pain Pain Mgmt Resolve 2018-11-26 Ana d 9 16:15:00 [place] 13:30: [id number] 00 Endo/Han anti-coagul Endo/Han Resolve 2019-02-06 Ana ation d 07-07 11:15:00 [place] therapy 13:30: [id number] 00 Integument surgical Integument Resolve 2018-08-05 Rea wound d 07-07 13:35:00 Guidelli present 13:30: [id number] 00 Nutrition nutritional Nutrition Resolve 2019-01-02 Ana restriction d 07-07 10:00:00 [place] s 13:30: [id number] 00 Nutrition changing Nutrition Resolve 2019-01-02 Ana weight/appe d 07-07 10:00:00 [place] tite 13:30: [id number] 00 Nutrition nutritional Nutrition Resolve 2019-01-02 Ana risk d 07-07 10:00:00 [place] 13:30: [id number] 00 Nutrition enteral Nutrition Resolve 2019-02-06 Ana therapy d 07-07 11:15:00 [place] 13:30: [id number] 00 Safety structural Safety Resolve 2019-02-06 Ana barriers d 07-07 11:15:00 [place] present 13:30: [id number] 00 Safety fall risk Safety Resolve 2019-02-06 Ana factor d 07-07 11:15:00 [place] present 13:30: [id number] 00 Safety risk for Safety Resolve 2019-02-06 Ana hospitaliza d 07-07 11:15:00 [place] tion 13:30: [id number] 00 Medication potential Meds Resolve 2019-02-06 Ana clinically d 07-07 11:15:00 [place] significant 13:30: [id number] medication 00 issue Musculoskel requires Musculoske Resolve 2019-02-06 Ana etal human letal d 07-07 11:15:00 [place] assist to 13:30: [id number] leave home 00 IV IV present IV Resolve 2019-02-06 Rea d 9-30 11:15:00 Liss[place] [id number] Respiratory dyspnea Respirator Resolve 2017-102019-02-06 Mer[facility]ez present y d 0-16 11:15:00 [place] 13:35: [id number] 00 Neuro confusion Neuro/Emot Resolve 2017-102019-02-06 Mer[facility]ez present ion d 0-16 11:15:00 [place] 13:35: [id number] 00 Neuro depressive Neuro/Emot Resolve 2017-102019-02-06 Mer[facility]ez feelings ion d 0-16 11:15:00 In[place] present 13:35: [id number] 00 Safety can be left Safety Resolve 2017-102019-02-06 Mercedez alone for d 0-18 11:15:00 Ingrahm only short 08:10: [id number] periods 00 Integument surgical Integument Resolve 2017-102018-10-30 Shila wound d 1-15 10:10:00 Brian present 08:55: [id number] 00 Elimination GI drain or Eliminatio Resolve 2017-102019-02-06 Shila tube n d 1-15 11:15:00 Brian present 08:55: [id number] 00 Neuro anxiety Neuro/Emot Resolve 2017-102019-02-06 Shila present ion d 1-15 11:15:00 Brian 08:55: [id number] 00 Medication injectable Meds Resolve 2017-102019-02-06 Shila med d 1-15 11:15:00 Brian assistance 08:55: [id number] required 00 Safety fire risk Safety Resolve 2017-102019-02-06 Shila present d 1-15 11:15:00 Brian 13:00: [id number] 00 Elimination urinary Eliminatio Resolve 2019-02-06 Mercedez incontinenc n d 1- 11:15:00 Ingra[place] e 14:20: [id number] 00 Pain frequent Pain Mgmt Resolve 2019-02-06 Mer[facility]ez pain d 2-15 11:15:00 In[place] 10:15: [id number] 00 Safety risk for Safety Unknown Leanna denis 02-06 Regeczi tion 15:45: [id number] 00 Respiratory lung sounds Respirator Resolve 2019-04-03 Leanna deficit y d 4-23 10:01:00 Regeczi 13:20: [id number] 00 Respiratory smoker Respirator Resolve 2019-04-03 Leanna y d 4-29 10:01:00 Regeczi 12:10: [id number] 00 Respiratory dyspnea Respirator Resolve 2019-06-05 Mercedez present y d 5-15 10:30:00 [place] 09:00: [id number] 00 Integument surgical Integument Resolve 2019-03-27 Mercedez wound d 5-15 09:15:00 Ingrahm present 09:00: [id number] 00 Nutrition enteral Nutrition Resolve 2019-03-27 Mercedez therapy d 5-15 09:15:00 In[place] 09:00: [id number] 00 Elimination urinary Eliminatio Resolve 2019-04-10 Mercedez incontinenc n d 5-15 09:30:00 Ingrahm e 09:00: [id number] 00 Neuro confusion Neuro/Emot Active Mercedez present ion 5-15 Ingrahm 09:00: [id number] 00 Neuro anxiety Neuro/Emot Active 2018- Mercedez present ion 5-15 Ingra[facility] 09:00: [id number] 00 Neuro depressive Neuro/Emot Active 2018- Mercedez feelings ion 5-15 Ingrahm present 09:00: [id number] 00 Neuro impaired Neuro/Emot Active 2018- Mercedez decision-ma ion 5-15 Ingrahm sonali 09:00: [id number] 00 Activity self-care Activity Resolve 2019-05-20 Mercedez deficit d 5-15 11:15:00 Ingra[place] 09:00: [id number] 00 Safety fall risk Safety Resolve 2019-07-17 Mercedez factor d 5-15 10:35:00 Ingrahm present 09:00: [id number] 00 Safety risk for Safety Resolve 2019-07-17 Mercedez hospitaliza d 5-15 10:35:00 Ingrahm tion 09:00: [id number] 00 Medication potential Meds Resolve 2019-03-27 Mercedez clinically d 5-15 09:15:00 Ingrahm significant 09:00: [id number] medication 00 issue Integument surgical Integument Resolve 2019-05-20 Mercedez wound d 7-12 11:15:00 Ingrahm present 10:00: [id number] 00 Nutrition enteral Nutrition Resolve 2019-06-26 Mercedez therapy d 7-12 10:35:00 Ingrahm 10:00: [id number] 00 Respiratory dyspnea Respirator Resolve 2019-08-07 Leanna present y d 06-26 10:25:00 Regeczi 10:35: [id number] 00 Respiratory smoker Respirator Resolve 2019-07-01 Laenna y d 06-26 10:15:00 Regeczi 10:35: [id number] 00 Endo/Han anti-coagul Endo/Han Resolve 2019-07-23 Leanna ation d 06-26 10:15:00 Regeczi therapy 10:35: [id number] 00 Elimination urinary Eliminatio Resolve 2019-07-23 Leanna incontinenc n d 06-26 10:15:00 Regeczi e 10:35: [id number] 00 Elimination nausea/vomi Eliminatio Resolve 2019-07-01 Leanna ting n d 06-26 10:15:00 Regeczi 10:35: [id number] 00 Integument surgical Integument Resolve 2019-07-23 Mercedez wound d 9-11 10:15:00 Ingrahm present 10:15: [id number] 00 Nutrition enteral Nutrition Resolve 2019-07-23 Mercedez therapy d 9 10:15:00 Ingra[place] 10:15: [id number] 00 Respiratory smoker Respirator Resolve 2019-07-16 Leanna y d 07-16 10:05:00 Regeczi 10:05: [id number] 00 Elimination diarrhea Eliminatio Resolve 2019-07-23 Leanna n d 07-17 10:15:00 Regeczi 10:35: [id number] 00 Cardio hypertensio Cardiovasc Resolve 2018-102019-07-30 Leanna eastman d 003 10:00:00 Regeczi 10:15: [id number] 00 Safety risk for Safety Resolve 2018-102019-07-23 Leanna hospitaliza d 0-03 10:15:00 Regeczi tion 10:15: [id number] 00 24 Hr Diet knowledge/s NT: 24Hr Resolve 2018-102019-07-23 Wen kill Diet d 0-03 15:00:00 [place] deficit - 15:00: [id number] pt 00 Nutritional eating NT: Resolve 2018-102019-07-23 Wen Barrier difficultie Barriers d 0-03 15:00:00 [place] s present 15:00: [id number] 00 Safety risk for Safety Resolve 2018-102019-08-07 [facility] hospitaliza d 0-04 10:25:00 [place] tion 14:00: [id number] 00 Social financial MURIEL: Active 2018-10 [facility] resource Social 0-04 [place] deficit Services 14:00: [id number] 00 Social support MURIEL: Active 2018-10 [facility] deficit Social 0-04 [place] [facility] 14:00: [id number] 00 Social knowledge/s MURIEL: Active 2018-10 [facility] kill Social 0-04 [place] deficit - Services 14:00: [id number] pt 00 Social financial MURIEL: Unknown 2018-10 [facility] Services resource Social 0-10 Ingrahm deficit Services 15:00: [id number] 00 Social knowledge/s MURIEL: Unknown 2018-10 [facility] Services kill Social 0-10 Ingrahm deficit - Services 15:00: [id number] pt 00 Respiratory lung sounds Respirator Resolve 2018-102019-08-07 Leanna deficit y d 0-18 10:25:00 Regeczi 10:25: [id number] 00 Respiratory dyspnea Respirator Active 2018-10 Mercedez present y 10-28 Ingrahm 11:00: [id number] 00 Integument surgical Integument Resolve 2018-102019-09-11 Mercedez wound d 10-28 09:50:00 Ingrahm present 11:00: [id number] 00 Nutrition enteral Nutrition Resolve 2018-102019-09-11 Mercedez therapy d 10-28 09:50:00 Ingra[place] 11:00: [id number] 00 Elimination urinary Eliminatio Resolve 2018-102019-09-11 Mercedez incontinenc n d 10-28 09:50:00 Ingrahm e 11:00: [id number] 00 Safety fall risk Safety Resolve 2018-102019-09-11 Mercedez factor d 10-28 09:50:00 Ingrahm present 11:00: [id number] 00 Safety risk for Safety Resolve 2018-102019-09-23 Mercedez appiahiza d 10-28 11:10:00 Ingrahm tion 11:00: [id number] 00 Safety risk for Safety Unknown 2018-10 Mercedez hospitaliza 11-24 Ingrahm tion 15:00: [id number] 00 Allergies, Adverse Reactions, Alerts Allergy Allergy Status Severity Reaction(s) Onset Inactive Treating Comments Name Type Date Date Clinician latex Base Active Unknown Hives Mercedez Ingredient 07-07 Ingrm [id number] amoxicillin Base Active Unknown Anaphylaxis Mercedez Ingredient 07-07 Ingrm [id number] bee venom Base Active Unknown Anaphylaxis Mercedez protein Ingredient 07-07 Ingrm (honey bee) [id number] Botox Medication Active Unknown Anaphylaxis [id number] contrast Unknown Active Unknown Anaphylaxis [facility] dye 07[facility] [id number] Penicillins Allergen Active Unknown Anaphylaxis Mer[facility]ez Group 07-07 Ingrm [id number] shellfish Base Active Unknown Anaphylaxis [facility] derived Ingredient 07[facility] [id number] adhesive Base Active Unknown Hives [facility] tape [facility]redient 07[facility] [id number] nsaids Unknown Active Unknown stomach issues Mercedez 07-07 Ingrm [id number] oxycodone Base Active Unknown swelling [facility] Ingredient [facility] [id number] Betadine Medication Active Unknown Rash [facility] Name ID 07-[facility] [id number] Hibiclens Medication Active Unknown Rash [facility] Name ID 07-[facility] [id number] evironmenta Unknown Active Unknown hay fever, Rea l/seasonal watery eye, 07-07 Guidelli itching, [id number] sneeze, congestion povidone-io Base Active Unknown itching Rea dine Ingredient 07-07 Guidelli [id number] Iodine and Allergen Active Unknown Anaphylaxis Rea Iodide Group 07-07 Guidelli Containing [id number] Products albumin Base Active Unknown Anaphylaxis Rea colloid, Ingredient 07-07 Guidelli human [id number] fentanyl Base Active Unknown hallucinations Rea Ingredient 07-07 Guidelli [id number] Medications Ordered Filled Start Stop Current Ordering Indication Dosage Frequency Signature Comments Components Medication Medication Date Date Medication? Clinician (SIG) Name Name Jevity 1.5 Jevity 1.5 2018- No Blegen Unknown Unknown Pineda 0.06 Pineda 0.06 07-07 Tashia FINCH gram-1.5 gram-1.5 e kcal/mL kcal/mL oral liquid oral liquid cyanocobala cyanocobala 2017- No Blegen Unknown Unknown min (vit min (vit 07-07 [place]ia FINCH B-12) 1,000 B-12) 1,000 e mcg/mL [...]
--- OUTSIDE RECORDS SUMMARY | 2019-10-25 19:42 | XMS REPORT ---
:1955 Author Organization [facility] Care Team Providers Name Role Phone Unavailable Unavailable Unavailable Problems Condition Condition Condition Status Onset Resolution Last Treating Comments Name Details Category Date Date Treatment Clinician Date Pain frequent Pain Mgmt Resolve 2018-11-26 Ana pain d 07-07 16:15:00 [place] 13:30: [id number] 00 Pain severe pain Pain Mgmt Resolve 2018-11-26 Ana d 07-07 16:15:00 [place] 13:30: [id number] 00 Endo/Han anti-coagul Endo/Han Resolve 2019-02-06 Ana ation d 07-07 11:15:00 [place] therapy 13:30: [id number] 00 Integument surgical Integument Resolve 2018-08-05 Rea wound d 07-07 13:35:00 [place] present 13:30: [id number] 00 Nutrition nutritional Nutrition Resolve 2019-01-02 Ana restriction d 07-07 10:00:00 [place] s 13:30: [id number] 00 Nutrition changing Nutrition Resolve 2019-01-02 Ana weight/appe d 07-07 10:00:00 [place] tite 13:30: [id number] 00 Nutrition nutritional Nutrition Resolve 2019-01-02 Ana risk d 07-07 10:00:00 [place] 13:30: [id number] 00 Nutrition enteral Nutrition Resolve 2019-02-06 Ana therapy d 07-07 11:15:00 [place] 13:30: [id number] 00 Safety structural Safety Resolve 2019-02-06 Ana barriers d 07-07 11:15:00 Matt present 13:30: [id number] 00 Safety fall risk Safety Resolve 2019-02-06 Ana factor d 07-07 11:15:00 [place] present 13:30: [id number] 00 Safety risk for Safety Resolve 2019-02-06 Ana hospitaliza d 07-07 11:15:00 [place] tion 13:30: [id number] 00 Medication potential Meds Resolve 2019-02-06 Ana clinically d 07-07 11:15:00 [place] significant 13:30: [id number] medication 00 issue Musculoskel requires Musculoske Resolve 2019-02-06 Ana etal human letal d 07-07 11:15:00 [place] assist to 13:30: [id number] leave home 00 IV IV present IV Resolve 2019-02-06 Rea d 07-20 11:15:00 [place]iss[place] [id number] Respiratory dyspnea Respirator Resolve 2017-102019-02-06 Mercedez present y d 0-16 11:15:00 [place] 13:35: [id number] 00 Neuro confusion Neuro/Emot Resolve 2017-102019-02-06 Mer[facility] present ion d 0-16 11:15:00 [place] 13:35: [id number] 00 Neuro depressive Neuro/Emot Resolve 2017-102019-02-06 Mer[facility]ez feelings ion d 0-16 11:15:00 Ingra[place] present 13:35: [id number] 00 Safety can be left Safety Resolve 2017-102019-02-06 Merced[place] alone for d 0-18 11:15:00 In[place] only short 08:10: [id number] periods 00 Integument surgical Integument Resolve 2017-102018-10-30 Shila wound d 1-15 10:10:00 Brian present 08:55: [id number] 00 Elimination GI drain or Eliminatio Resolve 2017-102019-02-06 Shila tube n d 1-15 11:15:00 Brian present 08:55: [id number] 00 Neuro anxiety Neuro/Emot Resolve 2017-102019-02-06 Shila present ion d 1-15 11:15:00 Brian 08:55: [id number] 00 Medication injectable Meds Resolve 2017-102019-02-06 Shila med d 11-04 11:15:00 Brian assistance 08:55: [id number] required 00 Safety fire risk Safety Resolve 2017-102019-02-06 Shila present d 1-15 11:15:00 Brian 13:00: [id number] 00 Elimination urinary Eliminatio Resolve 2019-02-06 Mercedez incontinenc n d 11-18 11:15:00 Ingrahm e 14:20: [id number] 00 Pain frequent Pain Mgmt Resolve 2019-02-06 Mercedez pain d 2-15 11:15:00 Ingra[place] 10:15: [id number] 00 Safety risk for Safety Unknown Leanna hospitaliza 02-06 Regeczi tion 15:45: [id number] 00 Respiratory lung sounds Respirator Resolve 2019-04-03 Leanna deficit y d 02-10 10:01:00 Regeczi 13:20: [id number] 00 Respiratory smoker Respirator Resolve 2019-04-03 Leanna y d 02-16 10:01:00 Regeczi 12:10: [id number] 00 Respiratory dyspnea Respirator Resolve 2019-06-05 Mercedez present y d 15 10:30:00 [place] 09:00: [id number] 00 Integument surgical Integument Resolve 2019-03-27 Mercedez wound d 15 09:15:00 Ingrahm present 09:00: [id number] 00 Nutrition enteral Nutrition Resolve 2019-03-27 Mercedez therapy d 15 09:15:00 [place] 09:00: [id number] 00 Elimination urinary Eliminatio Resolve 2019-04-10 Mercedez incontinenc n d 5-15 09:30:00 Ingrahm e 09:00: [id number] 00 Neuro confusion Neuro/Emot Active Mercedez present ion 5-15 Ingrahm 09:00: [id number] 00 Neuro anxiety Neuro/Emot Active 2018- Mer[facility]ez present ion 5-15 Ingra[place] 09:00: [id number] 00 Neuro depressive Neuro/Emot Active 2018- Mercedez feelings ion 5-15 Ingrahm present 09:00: [id number] 00 Neuro impaired Neuro/Emot Active Mercedez decision-ma ion 5-15 Ingrahm sonali 09:00: [id number] 00 Activity self-care Activity Resolve 2019-05-20 Mercedez deficit d 5-15 11:15:00 Ingra[place] 09:00: [id number] 00 Safety fall risk Safety Resolve 2019-07-17 Mercedze factor d 5-15 10:35:00 Ingrahm present 09:00: [id number] 00 Safety risk for Safety Resolve 2019-07-17 Mercedez hospitaliza d 5-15 10:35:00 Ingrahm tion 09:00: [id number] 00 Medication potential Meds Resolve 2019-03-27 Mercedez clinically d 515 09:15:00 Ingrahm significant 09:00: [id number] medication 00 issue Integument surgical Integument Resolve 2019-05-20 Mercedez wound d 7-12 11:15:00 Ingrahm present 10:00: [id number] 00 Nutrition enteral Nutrition Resolve 2019-06-26 Mercedez therapy d 05-01 10:35:00 Ingrahm 10:00: [id number] 00 Respiratory dyspnea Respirator Resolve 2019-08-07 Leanna present y d 06-26 10:25:00 Regeczi 10:35: [id number] 00 Respiratory smoker Respirator Resolve 2019-07-01 Leanna y d 06-26 10:15:00 Regeczi 10:35: [id number] 00 Endo/Han anti-coagul Endo/Han Resolve 2019-07-23 Leanna ation d 06-26 10:15:00 Regeczi therapy 10:35: [id number] 00 Elimination urinary Eliminatio Resolve 2019-07-23 Leanna incontinenc n d 06-26 10:15:00 Regeczi e 10:35: [id number] 00 Elimination nausea/vomi Eliminatio Resolve 2019-07-01 Leanna ting n d 06-26 10:15:00 Regeczi 10:35: [id number] 00 Integument surgical Integument Resolve 2019-07-23 Mercedez wound d 9-11 10:15:00 Ingrahm present 10:15: [id number] 00 Nutrition enteral Nutrition Resolve 2019-07-23 Mercedez therapy d 9-11 10:15:00 Ingrahm 10:15: [id number] 00 Respiratory smoker Respirator Resolve 2019-07-16 Leanna y d 07-16 10:05:00 Regeczi 10:05: [id number] 00 Elimination diarrhea Eliminatio Resolve 2019-07-23 Leanna n d 9 10:15:00 Regeczi 10:35: [id number] 00 Cardio hypertensio Cardiovasc Resolve 2018-102019-07-30 Leanna n ular d 0-03 10:00:00 Regeczi 10:15: [id number] 00 Safety risk for Safety Resolve 2018-102019-07-23 Leanna hospitaliza d 0-03 10:15:00 Regeczi tion 10:15: [id number] 00 24 Hr Diet knowledge/s NT: 24Hr Resolve 2018-102019-07-23 Wen kill Diet d 0-03 15:00:00 [place] deficit - 15:00: [id number] pt 00 Nutritional eating NT: Resolve 2018-102019-07-23 Wen Barrier difficultie Barriers d 0-03 15:00:00 [place] s present 15:00: [id number] 00 Safety risk for Safety Resolve 2018-102019-08-07 [facility] hospitaliza d 0-04 10:25:00 [place] tion 14:00: [id number] 00 Social financial MURIEL: Active 2018-10 [facility] resource Social 0-04 [place] deficit Services 14:00: [id number] 00 Social support MURIEL: Active 2018-10 [facility] deficit Social 0-04 [place] [facility] 14:00: [id number] 00 Social knowledge/s MURIEL: Active 2018-10 [facility] kill Social 0-04 [place] deficit - Services 14:00: [id number] pt 00 Social financial MURIEL: Unknown 2018-10 [facility] Services resource Social 0-10 In[facility]hm deficit Services 15:00: [id number] 00 Social knowledge/s MURIEL: Unknown 2018-10 [facility] Services kill Social 0-10 Ingrahm deficit - Services 15:00: [id number] pt 00 Respiratory lung sounds Respirator Resolve 2018-102019-08-07 Leanna deficit y d 0-18 10:25:00 Regeczi 10:25: [id number] 00 Respiratory dyspnea Respirator Active 2018-10 Mercedez present y 10-28 Ingrahm 11:00: [id number] 00 Integument surgical Integument Resolve 2018-102019-09-11 Mercedez wound d 10-28 09:50:00 Ingrahm present 11:00: [id number] 00 Nutrition enteral Nutrition Resolve 2018-102019-09-11 Mer[facility]ez therapy d 10-28 09:50:00 Ingra[place] 11:00: [id number] 00 Elimination urinary Eliminatio Resolve 2018-102019-09-11 Mercedez incontinenc n d 10-28 09:50:00 Ingrahm e 11:00: [id number] 00 Safety fall risk Safety Resolve 2018-102019-09-11 Mercedez factor d 10-28 09:50:00 Ingrahm present 11:00: [id number] 00 Safety risk for Safety Resolve 2018-102019-09-23 Mercedez hospitaliza d 10-28 11:10:00 Ingrahm tion 11:00: [id number] 00 Safety risk for Safety Unknown 2018-10 Mercedez hospitaliza 11-24 Ingrahm tion 15:00: [id number] 00 Allergies, Adverse Reactions, Alerts Allergy Allergy Status Severity Reaction(s) Onset Inactive Treating Comments Name Type Date Date Clinician latex Base Active Unknown Hives [facility]red[facility] [id number] amoxicillin Base Active Unknown Anaphylaxis [facility]redient [facility] [id number] bee venom Base Active Unknown Anaphylaxis [facility] protein Ingredient 07[facility] (honey bee[facility] [id number] Botox Medication Active Unknown Anaphylaxis Mercedez Name ID 07-07 [facility] [id number] contrast Unknown Active Unknown Anaphylaxis 2017- [facility] dye 07-[facility] [id number] Penicillins Allergen Active Unknown Anaphylaxis [facility] Group 07[facility] [id number] shellfish Base Active Unknown Anaphylaxis [facility] derived Ingredient 07-[facility] [id number] adhesive Base Active Unknown Hives [facility] tape Ingredient 07-[facility] [id number] nsaids Unknown Active Unknown stomach issues [facility] 07[facility] [id number] oxycodone Base Active Unknown swelling Mercedez Ingredient 07-07 Ingrahm [id number] Betadine Medication Active Unknown Rash Mercedez Name ID 07-07 Dimitrios [id number] Hibiclens Medication Active Unknown Rash Mercedez Name ID 07-07 Dimitrios [id number] evironmenta Unknown Active Unknown hay fever, Rea l/seasonal watery eye, 07-07 Guidelli itching, [id number] sneeze, congestion povidone-io Base Active Unknown itching Rea dine Ingredient 07-07 Guidelli [id number] Iodine and Allergen Active Unknown Anaphylaxis Rea Iodide Group 07-07 Guidelli Containing [id number] Products albumin Base Active Unknown Anaphylaxis Rea colloid, Ingredient 07-07 Guidelli human [id number] fentanyl Base Active Unknown hallucinations Rea Ingredient 07-07 Guidelli [id number] Medications Ordered Filled Start Stop Current Ordering [...] Blegen Unknown Unknown % topical % topical 0- Tashia FINCH cream cream e metoprolol metoprolol [...] mg tablet mg tablet e ciprofloxac ciprofloxac 2019-1 2019- Yes Blegen Unknown Unknown in 500 mg in 500 mg 11-18 ,Tashia tablet tablet e Vital Signs Vital Name [...]
--- OUTSIDE RECORDS SUMMARY | 2019-10-25 19:42 | XMS REPORT ---
:1955 Author Organization [facility] Care Team Providers Name Role Phone Unavailable Unavailable Unavailable Problems Condition Condition Condition Status Onset Resolution Last Treating Comments Name Details Category Date Date Treatment Clinician Date Pain frequent Pain Mgmt Resolve 2018-11-26 Ana pain d 07-07 16:15:00 [place] 13:30: [id number] 00 Pain severe pain Pain Mgmt Resolve 2018-11-26 Ana d 07-07 16:15:00 [place] 13:30: [id number] 00 Endo/Han anti-coagul Endo/Han Resolve 2019-02-06 Ana ation d 07-07 11:15:00 [place] therapy 13:30: [id number] 00 Integument surgical Integument Resolve 2018-08-05 Rea wound d 07-07 13:35:00 Guidelli present 13:30: [id number] 00 Nutrition nutritional Nutrition Resolve 2019-01-02 Ana restriction d 07-07 10:00:00 [place] s 13:30: [id number] 00 Nutrition changing Nutrition Resolve 2019-01-02 Ana weight/appe d 07-07 10:00:00 Matt tite 13:30: [id number] 00 Nutrition nutritional Nutrition Resolve 2019-01-02 Ana risk d 07-07 10:00:00 [place] 13:30: [id number] 00 Nutrition enteral Nutrition Resolve 2019-02-06 Ana therapy d 07-07 11:15:00 [place] 13:30: [id number] 00 Safety structural Safety Resolve 2019-02-06 Ana barriers d 07-07 11:15:00 Matt present 13:30: [id number] 00 Safety fall risk Safety Resolve 2019-02-06 Ana factor d 07-07 11:15:00 [place] present 13:30: [id number] 00 Safety risk for Safety Resolve 2019-02-06 Ana hospitaliza d 07-07 11:15:00 [place] tion 13:30: [id number] 00 Medication potential Meds Resolve 2019-02-06 Ana clinically d 07-07 11:15:00 Matt significant 13:30: [id number] medication 00 issue Musculoskel requires Musculoske Resolve 2019-02-06 Ana etal human letal d 07-07 11:15:00 [place] assist to 13:30: [id number] leave home 00 IV IV present IV Resolve 2019-02-06 Rea d 07-20 11:15:00 Lissette [id number] Respiratory dyspnea Respirator Resolve 2017-102019-02-06 [place] present y d 0-16 11:15:00 [place] 13:35: [id number] 00 Neuro confusion Neuro/Emot Resolve 2017-102019-02-06 Mer[place]ez present ion d 0-16 11:15:00 [place] 13:35: [id number] 00 Neuro depressive Neuro/Emot Resolve 2017-102019-02-06 Mer[place]ez feelings ion d 0-16 11:15:00 [place] present 13:35: [id number] 00 Safety can be left Safety Resolve 2017-102019-02-06 Mercedez alone for d 0-18 11:15:00 In[place] only short 08:10: [id number] periods 00 Integument surgical Integument Resolve 2017-102018-10-30 Shila wound d 1-15 10:10:00 Brian present 08:55: [id number] 00 Elimination GI drain or Eliminatio Resolve 2017-102019-02-06 Shila tube n d 1-15 11:15:00 Brian present 08:55: [id number] 00 Neuro anxiety Neuro/Emot Resolve 2017-102019-02-06 Shila present ion d 1-15 11:15:00 Brian 08:55: [id number] 00 Medication injectable Meds Resolve 2017-102019-02-06 Shila med d 11-04 11:15:00 Brian assistance 08:55: [id number] required 00 Safety fire risk Safety Resolve 2017-102019-02-06 Shila present d 1-15 11:15:00 Brian 13:00: [id number] 00 Elimination urinary Eliminatio Resolve 2019-02-06 Mercedez incontinenc n d 11-18 11:15:00 Ingrahm e 14:20: [id number] 00 Pain frequent Pain Mgmt Resolve 2019-02-06 Mercedez pain d 2-15 11:15:00 Ingrahm 10:15: [id number] 00 Safety risk for Safety Unknown Leanna hospitaliza 02-06 Regeczi tion 15:45: [id number] 00 Respiratory lung sounds Respirator Resolve 2019-04-03 Leanna deficit y d 02-10 10:01:00 Regeczi 13:20: [id number] 00 Respiratory smoker Respirator Resolve 2019-04-03 Leanna y d 02-16 10:01:00 Regeczi 12:10: [id number] 00 Respiratory dyspnea Respirator Resolve 2019-06-05 Mercedez present y d 15 10:30:00 Ingrahm 09:00: [id number] 00 Integument surgical Integument Resolve 2019-03-27 Mercedez wound d 15 09:15:00 Ingrahm present 09:00: [id number] 00 Nutrition enteral Nutrition Resolve 2019-03-27 Mercedez therapy d 15 09:15:00 Ingrahm 09:00: [id number] 00 Elimination urinary Eliminatio Resolve 2019-04-10 Mercedez incontinenc n d 5-15 09:30:00 Ingrahm e 09:00: [id number] 00 Neuro confusion Neuro/Emot Active Mercedez present ion 5-15 Ingrahm 09:00: [id number] 00 Neuro anxiety Neuro/Emot Active 2018- Mercedez present ion 5-15 Ingrahm 09:00: [id number] 00 Neuro depressive Neuro/Emot Active 2018- Mer[place]ez feelings ion 5-15 Ingrahm present 09:00: [id number] 00 Neuro impaired Neuro/Emot Active Mercedez decision-ma ion 5-15 Ingrahm sonali 09:00: [id number] 00 Activity self-care Activity Resolve 2019-05-20 Mercedez deficit d 5-15 11:15:00 Ingrahm 09:00: [id number] 00 Safety fall risk Safety Resolve 2019-07-17 Mercedez factor d 5-15 10:35:00 Ingrahm present 09:00: [id number] 00 Safety risk for Safety Resolve 2019-07-17 Mercedez hospitaliza d 5-15 10:35:00 Ingrahm tion 09:00: [id number] 00 Medication potential Meds Resolve 2019-03-27 Mercedez clinically d 515 09:15:00 Ingrahm significant 09:00: [id number] medication 00 issue Integument surgical Integument Resolve 2019-05-20 Mercedez wound d 7-12 11:15:00 Ingrahm present 10:00: [id number] 00 Nutrition enteral Nutrition Resolve 2019-06-26 Mercedez therapy d 05-01 10:35:00 Ingrahm 10:00: [id number] 00 Respiratory dyspnea Respirator Resolve 2019-08-07 Leanna present y d 06-26 10:25:00 Regeczi 10:35: [id number] 00 Respiratory smoker Respirator Resolve 2019-07-01 Leanna y d 06-26 10:15:00 Regeczi 10:35: [id number] 00 Endo/Han anti-coagul Endo/Han Resolve 2019-07-23 Leanna ation d 06-26 10:15:00 Regeczi therapy 10:35: [id number] 00 Elimination urinary Eliminatio Resolve 2019-07-23 Leanna incontinenc n d 06-26 10:15:00 Regeczi e 10:35: [id number] 00 Elimination nausea/vomi Eliminatio Resolve 2019-07-01 Leanna ting n d 06-26 10:15:00 Regeczi 10:35: [id number] 00 Integument surgical Integument Resolve 2019-07-23 Mercedez wound d 9-11 10:15:00 Ingrahm present 10:15: [id number] 00 Nutrition enteral Nutrition Resolve 2019-07-23 Mercedez therapy d 9-11 10:15:00 Ingrahm 10:15: [id number] 00 Respiratory smoker Respirator Resolve 2019-07-16 Leanna y d 07-16 10:05:00 Regeczi 10:05: [id number] 00 Elimination diarrhea Eliminatio Resolve 2019-07-23 Leanna n d 9 10:15:00 Regeczi 10:35: [id number] 00 Cardio hypertensio Cardiovasc Resolve 2018-102019-07-30 Leanna n ular d 0-03 10:00:00 Regeczi 10:15: [id number] 00 Safety risk for Safety Resolve 2018-102019-07-23 Leanna hospitaliza d 0-03 10:15:00 Regeczi tion 10:15: [id number] 00 24 Hr Diet knowledge/s NT: 24Hr Resolve 2018-102019-07-23 Wen kill Diet d 0-03 15:00:00 [place] deficit - 15:00: [id number] pt 00 Nutritional eating NT: Resolve 2018-102019-07-23 Wen Barrier difficultie Barriers d 0-03 15:00:00 [place] s present 15:00: [id number] Safety risk for Safety Resolve 2018-102019-08-07 Roseline hospitaliza d 0-04 10:25:00 [place] tion 14:00: [id number] 00 Social financial MURIEL: Active 2018-10 [facility] Services resource Social 0-04 [place] deficit Services 14:00: [id number] 00 Social support MURIEL: Active 2018-10 [facility] deficit Social 0-04 [place] Services 14:00: [id number] 00 Social knowledge/s MURIEL: Active 2018-10 [facility] Services kill Social 0-04 [place] deficit - Services 14:00: [id number] pt 00 Social financial MURIEL: Unknown 2018-10 [facility] Services resource Social 0-10 [place] deficit Services 15:00: [id number] 00 Social knowledge/s MURIEL: Unknown 2018-10 [place] Services kill Social 0-10 [place] deficit - Services 15:00: [id number] pt 00 Respiratory lung sounds Respirator Resolve 2018-102019-08-07 Leanna deficit y d 0-18 10:25:00 Regeczi 10:25: [id number] 00 Respiratory dyspnea Respirator Active 2018-10 Mercedez present y 10-28 Ingrahm 11:00: [id number] 00 Integument surgical Integument Resolve 2018-102019-09-11 Mer[place]ez wound d 10-28 09:50:00 Ingrahm present 11:00: [id number] 00 Nutrition enteral Nutrition Resolve 2018-102019-09-11 [place] therapy d 10-28 09:50:00 Ingrahm 11:00: [id number] 00 Elimination urinary Eliminatio Resolve 2018-102019-09-11 Mer[place] incontinenc n d 10-28 09:50:00 Ingrahm e 11:00: [id number] 00 Safety fall risk Safety Resolve 2018-102019-09-11 Mercedez factor d 10-28 09:50:00 Ingrahm present 11:00: [id number] 00 Safety risk for Safety Resolve 2018-102019-09-23 Mercedez hospitaliza d 10-28 11:10:00 Ingrahm tion 11:00: [id number] 00 Safety risk for Safety Unknown 2018-10 Mercedez hospitaliza 11-24 Ingrahm tion 15:00: [id number] 00 Allergies, Adverse Reactions, Alerts Allergy Allergy Status Severity Reaction(s) Onset Inactive Treating Comments Name Type Date Date Clinician latex Base Active Unknown Hives [facility] Ingredient 07-[facility] [id number] amoxicillin Base Active Unknown Anaphylaxis [place] Ingredient 07-07 [facility] [id number] bee venom Base Active Unknown Anaphylaxis [place] protein Ingredient 07-07 [facility] [id number] Botox Medication Active Unknown Anaphylaxis Mer[place]ez Name ID 07-07 [facility] [id number] contrast Unknown Active Unknown Anaphylaxis 2017- [facility] dye 07-07 [facility] [id number] Penicillins Allergen Active Unknown Anaphylaxis [facility]ez Group 07-07 [facility] [id number] shellfish Base Active Unknown Anaphylaxis [place] derived Ingredient 07-07 [facility] [id number] adhesive Base Active Unknown Hives [place] tape Ingredient 07-07 [facility] [id number] nsaids Unknown Active Unknown stomach issues Mercedez 07-07 [facility] [id number] oxycodone Base Active Unknown swelling Mercedez Ingredient 07-07 Ingrahm [id number] Betadine Medication Active Unknown Rash Mercedez Name ID 07-07 Dimitrios [id number] Hibiclens Medication Active Unknown Rash Mer[place]ez Name ID 07-07 Dimitrios [id number] evironmenta Unknown Active Unknown hay fever, Rea l/seasonal watery eye, 07-07 Guidelli itching, [id number] sneeze, congestion povidone-io Base Active Unknown itching Rea dine Ingredient 07-07 Guidelli [id number] Iodine and Allergen Active Unknown Anaphylaxis Rea Iodide Group 07-07 Guidelli Containing [id number] Products albumin Base Active Unknown Anaphylaxis Rea colloid, Ingredient 07-07 Guidelli human [id number] fentanyl Base Active Unknown hallucinations Rea Ingredient 07-07 Guidelli [id number] Medications Ordered Filled Start Stop Current Ordering [...] Unknown Unknown 4 mg 4 mg 4-29 Tahsia FINCH disintegrat disintegrat e ing tablet ing [...]
[2019-10-25 19:46] LABS: TSH (Thyroid Stimulating Horm) 1.37 mcIU/mL (0.34-5.60)
[2019-10-25] MEDS ORDERED: Morphine 4 MG/ML VIAL (1 ml) 4 MG/ML VIAL IV ONE (19:51)
[2019-10-25] MEDS ORDERED: Albuterol/Ipratropium NEB.SOL* Albuterol 2.5 MG/Ipratropium 0.5 MG 3 ML INH ONE (19:53)
[2019-10-25 20:29] LABS: Urine Appearance Cloudy; Urine Bilirubin Negative (Negative); Urine Blood 1+ (Negative); Urine Color Yellow; Urine Glucose Negative (Negative); Urine Ketones Trace (Negative); Urine Nitrite Negative (Negative); Urine Protein Negative (Negative); Urine Specific Gravity 1.005 (1.010-1.030); Urine Urobilinogen Negative (Negative)
[2019-10-25 20:46] LABS: Urine Bacteria 1+ (Absent); Urine Red Blood Cell 1+(3-5/hpf) (Absent); Urine Squamous Epithelial Cell Present (Absent); Urine White Blood Cell 1+(6-10/hpf) (Absent)
[2019-10-25 20:57] LABS: Urine Benzodiazepine Screen None Detected (None Detect); Urine Opiates Screen Presumptive Positive (None Detect)
[2019-10-25] MEDS ORDERED: Morphine TAB Extended Release (*) 30 MG TAB.ER PO PRN (22:36)
[2019-10-25] MEDS ORDERED: Nitroglycerin TAB 0.4 MG* 0.4 MG TAB SL PRN (22:36)
[2019-10-25] MEDS ORDERED: Famotidine TAB* 20 MG PRN (22:36)
[2019-10-25] MEDS ORDERED: Albuterol HFA INHALER* 8 gm MDI INH PRN (22:36)
[2019-10-25] MEDS ORDERED: Fluticasone NASAL SPRAY 50MCG* 16 gm SPRAY BTL BOTH NARES PRN (22:36)
[2019-10-25] MEDS ORDERED: Ondansetron INJ* 2 MG/ML VIAL IV PRN (22:41)
[2019-10-26] MEDS: Ciprofloxacin 400MG IVPREMIX(* 400 MG/200 ML BAG IVPB SCH ×3 (00:41→23:21)
[2019-10-26] MEDS ORDERED: Famotidine TAB* 20 MG PO PRN (00:51)
[2019-10-26] MEDS: Enoxaparin(*) 40 MG/0.4 ML SYR SUBCUT SCH ×2 (00:52→23:26)
--- NOTE | 2019-10-26 05:31 | HP ---
CC: Dr. Trish Combs; Dr. Domínguez * HISTORY AND PHYSICAL: DATE OF ADMISSION: 10/25/19 PRIMARY CARE PHYSICIAN: Trish Combs MD SWISS TYPE SCREW MACHINE OPERATOR: Dr. Domínguez. HEALTHCARE PROXY: Daughter, Ela Chávez. STATUS: Presumed full. SOURCE OF INFORMATION: History obtained from interview with the patient's nurse , discussion with ER provider, review of past medical records, all are excellent , and discussion with the patient. RELIABILITY: Poor. CHIEF COMPLAINT: Hallucinations. HISTORY OF PRESENT ILLNESS: This is a 64-year-old female with past medical history of severe achalasia, now with GJ tube in place, chronic pain, on high- dose narcotics, last hospital stay at [facility] in August 2019 with nausea, vomiting , hypertensive urgency, was seen by [facility] staff in the emergency room, noted to be having visual hallucinations day prior to presentation where the patient thought she was seeing her grandmother and again today, identifying a dog and teenagers in her house that were not there and was brought to the emergency room. Of note, the patient had a hospital stay in September of 2018 after presenting with hallucinations which was thought secondary to misuse of her narcotics. Note that the patient took Benadryl the day prior to presentation as well as day of presentation, which was prescribed for pruritus. The patient had related to EDRN that recently she has been in more pain. She has not been sleeping and had increased her use of Benadryl. Additionally, she indicated that she did not take her medications this morning. Further history was difficult to obtain from the patient. She was lethargic in the emergency room. Per review of records indicate her doses of narcotics had significantly increased since she was last hospitalized with hallucinations in 2018. PAST MEDICAL HISTORY: Includes advanced achalasia requiring PEG tube. She does eat for pleasure and is noted to frequently overeat per the past records, history of DVT, PE, unable to find records from our imaging, history of TIA, gastroparesis, chronic pain on high dose narcotics, hyperlipidemia, history of CAD and an VT with an RCA stent, history of hypertension, Fernández's esophagus, COPD, right breast cancer, history of Godwin fundoplication, hiatal hernia repaired twice, bilateral mastectomy, partial hysterectomy, left total knee replacement, bilateral should surgeries, esophageal surgeries, appendectomy, esophageal dilatation last in [place] of 2019, and port placement. MEDICATIONS: Home medications include: 1. Pancrelipase 1 capsule with meals. 2. Ondansetron 4 mg every hour as needed. 3. Nitroglycerin sublingual 0.4 mg every 5 minutes as needed for chest pain. 4. Nicotine nasal spray 4 times a day as needed for nicotine cravings. 5. Multivitamin 1 tablet daily. 6. Jevity 1.5 at 1185 mL per G-tube daily. 7. Famotidine 20 mg per G-tube as needed for indigestion. 8. Vitamin B12 1000 micrograms monthly. 9. Allergy eye drops in both eyes twice daily as needed. 10. Hydromorphone 8 mg every 4 hours as needed for severe pain, max dose 10 tablets. 11. Fluticasone 2 sprays in both nares daily as needed. 12. Albuterol 2 puffs every 4 hours as needed. 13. Morphine sulfate ER 60 mg 3 times a day as needed for severe pain. 14. Lorazepam 0.25 to 0.5 mg at bedtime as needed. 15. Benadryl 50 mg every 6 hours as needed. 16. Folic acid 1 mg daily. 17. Soma 350 mg every 4 hours as needed for severe pain. 18. Metoprolol tartrate 25 mg twice daily. This was noted to be discontinued at previous hospital stay, unclear if this was re-added. 19. Losartan 100 mg daily and this was noted to be discontinued at previous hospital stay, unclear if this was re-added. 20. Clopidogrel 75 mg in the morning. 21. Amlodipine 10 mg daily. 22. Spironolactone 25 mg daily. 23. Pantoprazole 40 mg daily. 24. Imdur ER 30 mg daily. 25. Atorvastatin 40 mg daily. ALLERGIES: ALBUMIN, BEE VENOM, IODINATED CONTRAST MEDIA, BOTOX, PENICILLIN, which cause anaphylactic shock, SHELLFISH, ADHESIVE TAPE, CHLORHEXIDINE, LATEX, NSAIDS, POVIDONE-IODINE, FENTANYL, GADOLINIUM, and seasonal allergies. FAMILY HISTORY: Father at 52 from an VT. Mother with CAD and atrial fibrillation. SOCIAL HISTORY: She smokes half a pack per day. She has a 50-pack year history of smoking. No alcohol. REVIEW OF SYSTEMS: Unable to obtain from the patient. She is minimally verbal during the H and P. PHYSICAL EXAMINATION GENERAL: She is sitting up in bed with her eyes closed. VITAL SIGNS: Blood pressure on presentation is 215/105 and when seen by this author, 155/132; heart rate is 68; respiratory rate is 20; she is 94% on 2 L, decreased to 92% on room air; T-max is 98.6 in the emergency room. HEENT: Her oropharynx is clear. She has dry mucous membranes. Sclerae are anicteric. LUNGS: Clear throughout. HEART: She has regular rate and rhythm. She has a soft early peaking 2/6 systolic ejection murmur. ABDOMEN: She has G-tube in place. She has mild erythema on the left. Otherwise, clean, dry, and intact. Nontender, soft. Positive bowel sounds. EXTREMITIES: Warm and well perfused without clubbing, cyanosis, or edema. NEUROLOGIC: The patient frequently does not answer questions. She is mostly quiet, although with frequent questioning, ultimately does tell me her name and that she is in the emergency room and that it is 2020. She is able to follow some simple commands such as opening her mouth, sticking out her tongue. She is not able to follow 2-step commands such as, "show me your right hand." She participates with cranial nerve exam, which is intact. She has 4 to 5/5 strength in her extremities. She is while awake performing a chewing motion. Speech is slightly dysarthric. She falls asleep easily. SKIN: Illustrates bruising on bilateral knees. PSYCHIATRIC: She has no apparent anxiety, agitation, or depression. DIAGNOSTIC STUDIES/LABORATORY DATA: Labs reviewed notable for white blood cell count of 12.9, platelets 321, hemoglobin 11.7. Troponin is 0.01. TSH is 1.37. Urine is notable for ketones, blood, leukocyte esterase, white blood cells , squamous epithelial cells, and bacteria. Data reviewed. EKG with normal sinus rhythm, left axis, 1-mm ST depressions in aVF alone, Qs in V5 and V6. Brain CT, no acute intracranial findings. Chest x- ray, no active cardiopulmonary disease on this author's interpretation. Lumbar spine x- ray, formal interpretation is pending. ASSESSMENT AND PLAN: This is a 64-year-old female with past medical history as indicated above including achalasia with a percutaneous endoscopic gastrostomy tube, presenting with hallucinations. Hallucinations suspected in the setting of metabolic and/or toxic encephalopathy in the setting of underlying urinary tract infection and high- dose pain medications in conjunction with Benadryl. Toxic encephalopathy in the setting of narcotics with on her previous hospital stay in 2018. I have decreased her doses of Dilaudid and morphine by half, but kept the frequency the same. I have not changed her Soma. All home pain medication doses were confirmed in I-STOP. I am withholding Benadryl and benzodiazepines. I am starting Cipro in the setting of PENICILLIN allergy and urinalysis, which may suspect with an infection, especially with elevated leukocytosis. A cerebrovascular accident versus seizure do remain on the differential, however, I think less likely in the presence of the aforementioned more likely etiologies. Hypertensive urgency on presentation. She received labetalol in the emergency with better control. She has not taken her home medications this morning. Continuing home medications, but I am holding metoprolol as this was discontinued on her previous hospital stay and I am unclear that this is accurate. We ordered losartan, amlodipine, spironolactone, and Imdur. Chronic pain, decreased dose as indicated above. Hypoxia, on room air was 91% to 92%. She does not use oxygen at home. I noticed the oxygen decreasing as she fell asleep during our conversation, suspecting hypoventilation in the setting of oversedation. She is ventilating well as indicated by VBG and she is satting well on 2 L, I do not see a reason to give her Narcan at this time. In fact, she did receive morphine in the emergency room when she was crying out in pain. Tobacco use disorder. Nicotine patch. Severe malnutrition. Continue Jevity. I do not see that we have 1.5 here and start at 1.2 with clear liquid diet for comfort. Nutrition consultation. EKG with what appears to be a new Q-wave in V5. Unclear of previous cardiac ischemia somehow contributing to this patient's presentation at this time. I have ordered an echocardiogram. DVT prophylaxis with Lovenox. Social work consult in the setting of bilateral knee bruising, suspicious for frequent falls and inability to care for herself at home. [id number]/CPS #: [id number] MTDD
[2019-10-26] MEDS ORDERED: Pancrelipase (NF) 12,000 UNITS CAP.DR PO SCH (08:00)
--- NOTE | 2019-10-26 08:41 | PN ---
Subjective Date of Service: 10/26/19 Interval History: Pt is getting a TTE when I enter her room. She states she is scared because she does not know what is going on. She tells me that she does remember somewhat having hallucinations at home but just repeats "I don't know what is going on." She also asks why she is in severe pain. She did not get any pain medication overnight, at home she typically takes the medication relatively routinely. Objective Active Medications: Albuterol (Ventolin Hfa Inhaler*) 2 puff INH Q4H PRN PRN Reason: SHORTNESS OF BREATH Amlodipine Besylate (Norvasc Tab*) 10 mg PO DAILY [facility] Atorvastatin Calcium (Lipitor*) 40 mg PO DAILY [facility] Carisoprodol (Soma Tab*) 350 mg PO QID PRN PRN Reason: SPASMS - MUSCLE Clopidogrel Bisulfate (Plavix Tab*) 75 mg PO QAM [facility] Enoxaparin Sodium (Lovenox(*)) 40 mg SUBCUT Q24H [facility] Last Admin: 10/26/19 00:52 Dose: 40 mg Famotidine (Pepcid Tab*) 20 mg PO DAILY PRN PRN Reason: INDIGESTION Fluticasone Propionate (Flonase Nasal [place] 50mcg*) 2 spray BOTH NARES DAILY PRN PRN Reason: Allergy Symptoms Folic Acid (Folvite Tab*) 1 mg PO DAILY [facility] Hydromorphone HCl (Dilaudid Tab*) 4 mg PO Q4H PRN PRN Reason: PAIN Ciprofloxacin/Dextrose (Cipro 400 Mg Ivpremix(*)) 400 mg in 200 mls @ 200 mls/ hr IVPB Q12H [facility]; Protocol Last Admin: 10/26/19 00:41 Dose: 200 mls/hr Isosorbide Mononitrate (Imdur Er Tab*) 30 mg PO DAILY [facility] Losartan Potassium (Cozaar Tab*) 100 mg PO DAILY [facility] Morphine Sulfate (Ms Contin(*)) 60 mg PO TID PRN PRN Reason: PAIN - SEVERE Multivitamins/Minerals (Theragran/Minerals Tab*) 1 tab PO DAILY [facility] Nicotine (Nicotine Patch 14 Mg/24 Hr*) 1 patch TRANSDERM DAILY [facility] Nitroglycerin (Nitroglycerin Tab 0.4 Mg*) 0.4 mg SL Q5M PRN PRN Reason: chest pain Ondansetron HCl (Zofran Inj*) 4 mg IV Q4H PRN PRN Reason: NAUSEA/VOMITING Pantoprazole Sodium (Protonix Tab*) 40 mg PO DAILY [facility] Pharmacy Profile Note (Nicotine Patch Removal Note*) 1 note PATCH OFF 2099 [facility] Spironolactone (Aldactone Tab*) 25 mg PO DAILY [facility] Vital Signs - 8 hr 10/26/19 10/26/19 00:46 03:14 Temperature 98.6 F 97.7 F Pulse Rate 67 62 Respiratory 20 18 Rate Blood Pressure 136/71 153/60 (mmHg) O2 Sat by Pulse 98 98 Oximetry Oxygen Devices in Use Now: Nasal Cannula - 98% on RA Appearance: Middle aged chronically ill appearing female lying in bed, NAD Eyes: No Scleral Icterus Ears/Nose/Mouth/Throat: Mucous Membranes Moist Respiratory: Symmetrical Chest Expansion and Respiratory Effort, Clear to Auscultation - diminished breath sounds throughout Cardiovascular: NL Sounds; No Murmurs; No JVD, RRR, No Edema Abdominal: - - scaphoid abdomen, soft, NT, GT in place Extremities: No Clubbing, Cyanosis Skin: No Nodules or Sclerosis Neurological: - - alert, not oriented to place or time Result Diagrams: 10/25/19 18:55 10/25/19 18:55 Additional Lab and Data: Lab Results 10/25/19 10/25/19 Range/Units 18:55 18:55 WBC 12.9 H (3.5-10.8) 10^3/uL RBC 4.27 (3.70-4.87) 10^6 /uL Hgb 11.7 L (12.0-16.0) g/dL Hct 35 (35-47) % MCV 82 (80-97) fL MCH 27 (27-31) pg MCHC 33 (31-36) g/dL RDW 16 H (10-15) % Plt Count 321 (150-450) 10^3/uL MPV 7.3 L (7.4-10.4) fL Neut % (Auto) 81.5 % Lymph % (Auto) 9.1 % [place] % (Auto) 8.0 % Eos % (Auto) 0.7 % Baso % (Auto) 0.7 % Absolute Neuts (auto) 10.5 H (1.5-7.7) 10^3/ul Absolute Lymphs (auto) 1.2 (1.0-4.8) 10^3/ul Absolute Monos (auto) 1.0 H (0-0.8) 10^3/ul Absolute Eos (auto) 0.1 (0-0.6) 10^3/ul Absolute Basos (auto) 0.1 (0-0.2) 10^3/ul Absolute Nucleated RBC 0.0 10^3/ul Nucleated RBC % 0.0 Sodium 134 L (135-145) mmol/L Potassium 3.9 (3.5-5.0) mmol/L Chloride 99 L (101-111) mmol/L Carbon Dioxide 23 (22-32) mmol/L Anion Gap 12 H (2-11) mmol/L BUN 22 (6-24) mg/dL Creatinine 0.99 H (0.51-0.95) mg/dL Est GFR ( Amer) 68.3 (>60) Est GFR (Non-Af Amer) 56.5 (>60) BUN/Creatinine Ratio 22.2 H (8-20) Glucose 95 (70-100) mg/dL Calcium 9.3 (8.6-10.3) mg/dL Total Bilirubin 0.80 (0.2-1.0) mg/dL AST 17 (13-39) U/L ALT 10 (7-52) U/L Alkaline Phosphatase 67 (34-104) U/L Total Protein 7.1 (6.4-8.9) g/dL Albumin 4.0 (3.2-5.2) g/dL Globulin 3.1 (2-4) g/dL Albumin/Globulin Ratio 1.3 (1-3) TSH Pending Salicylates Pending Acetaminophen Pending Serum Alcohol Pending Assess/Plan/Problems-Billing Ms Prasad is a 64 yo F who has a h/o achalasia requiring G tube feeds, chronic pain on high dose narcotics, CAD, HTN and HLD who presented to the ER with hallucinations in the setting of possible UTI, benadryl use, high dose narcotic use and hypertensive urgency. - Patient Problems (1) Toxic encephalopathy Current Visit: Yes Status: Acute Code(s): G92 - TOXIC ENCEPHALOPATHY SNOMED Code(s): 58553634 Comment: The suspicion is that the patient's encephalopathy is secondary to UTI and benadryl use, possibly complicated by her routine high dose narcotic use for her chronic pain. She denies any hallucinations this AM. She seems scared and states she does not know what is going on. Will monitor for improvement in mental status throughout the day. We are treating the possible UTI with cipro given her PCN allergy and benadryl has been discontinued. I am resuming her usual dose of MS contin but continuing the reduced dose of dilaudid for now. (2) UTI (urinary tract infection) Current Visit: Yes Status: Acute Comment: Pt with abnormal UA. Will treat for possible UTI with cipro given her PCN allergy. (3) Achalasia Current Visit: Yes Status: Chronic Priority: High Code(s): K22.0 - ACHALASIA OF CARDIA SNOMED Code(s): 81363809 Comment: Pt with G tube, will continue tube feeds overnight. Pt can have regular diet for pleasure feeds. She is c/o chest pain currently but I suspect it is secondary to the fact that the patient did not have any pain medication overnight. (4) CAD (coronary artery disease) Current Visit: Yes Status: Chronic Code(s): I25.10 - ATHSCL HEART DISEASE OF [place] CORONARY ARTERY W/O ANG PCTRS SNOMED Code(s): 71399955 Comment: Pt with chest pain this AM. I do not think it is cardiac in nature as she c/o diffuse pain and has not had her usual pain medications in >12hr. Will get EKG. Continue clopidogrel, metoprolol and lipitor. (5) HTN (hypertension) Current Visit: Yes Status: Chronic Priority: Medium Code(s): I10 - ESSENTIAL (PRIMARY) HYPERTENSION SNOMED Code(s): 69900434 Comment: Pt with marked hypertensive urgency on presentation. BP now normalized. Will continue amlodipine, imdur, losartan and spironolactone. (6) Chronic pain Current Visit: No Status: Acute Code(s): G89.29 - OTHER CHRONIC PAIN SNOMED Code(s): 54129718 Comment: Pt in significant pain at this time. Increase extended release morphine to 60mg TID prn which is her home dose, continue reduced prn dilaudid dose. Continue soma. Pt states she was to have pain clinic appointment today. (7) GERD (gastroesophageal reflux disease) Current Visit: Yes Status: Acute Code(s): K21.9 - GASTRO-ESOPHAGEAL REFLUX DISEASE WITHOUT ESOPHAGITIS SNOMED Code(s): 576786080 Comment: Pt also with Barretts esophagus. Continue protonix and famotidine. (8) HLD (hyperlipidemia) Current Visit: Yes Status: Chronic Code(s): E78.5 - HYPERLIPIDEMIA, UNSPECIFIED SNOMED Code(s): 58401360 Comment: Continue atorvastatin. (9) COPD (chronic obstructive pulmonary disease) Current Visit: Yes Status: Chronic Code(s): J44.9 - CHRONIC OBSTRUCTIVE PULMONARY DISEASE, UNSPECIFIED SNOMED Code(s): 74269019 Comment: Stable and without any signs of exacerbation. (10) Tobacco use disorder Current Visit: Yes Status: Chronic Code(s): Z72.0 - TOBACCO USE SNOMED Code(s): 816259644 Comment: Continue nicotine patch (11) DVT prophylaxis Current Visit: Yes Status: Acute Code(s): IXS8949 - SNOMED Code(s): 352070563 Comment: [place] (12) Full code status Current Visit: Yes Status: Acute Onset Date: 01/19/15 Code(s): Z78.9 - OTHER SPECIFIED HEALTH STATUS SNOMED Code(s): 077816683 Comment:
[2019-10-26] MEDS ORDERED: NS 0.9% 1000 ML** 1,000 ML IV SCH (09:00)
[2019-10-26] MEDS: Folic Acid TAB* 1 MG PO SCH (09:01)
[2019-10-26] MEDS: amLODIPine TAB* 5 MG PO SCH (09:01)
[2019-10-26] MEDS: Carisoprodol TAB* 350 MG PO PRN ×3 (09:01→21:18)
[2019-10-26] MEDS: HYDROmorphone TAB* 4 MG PO PRN ×4 (09:02→23:33)
[2019-10-26] MEDS: Atorvastatin* 40 MG TAB PO SCH (09:02)
[2019-10-26] MEDS: Spironolactone TAB* 25 MG PO SCH (09:02)
[2019-10-26] MEDS: Clopidogrel TAB* 75 MG PO SCH (09:02)
[2019-10-26] MEDS: Isosorbide Mononitrate ER TAB* 30 MG PO SCH (09:02)
[2019-10-26] MEDS: Pantoprazole TAB * 40 MG TAB PO SCH (09:02)
[2019-10-26] MEDS: Multivitamins/Minerals TAB PO SCH (09:03)
[2019-10-26] MEDS: Losartan TAB* 25 MG PO SCH (09:03)
[2019-10-26] MEDS: Nicotine PATCH 14 MG/24 HR* PATCH TRANSDERM SCH (09:10)
[2019-10-26] MEDS: Metoprolol Tartrate TAB* 25 MG PO SCH ×2 (09:15→20:33)
--- NOTE | 2019-10-26 10:54 | ECHO ---
*[facility]* [place] [address] Fax #: [phone] Transthoracic Echocardiogram Patient: Isabel Prasad : 1955 Study Date: 10/26/2019 Age: 64 Gender: F HR: 71 bpm Height: 67 in /170.2 cm BSA: 1.51 m^2 Weight: 99.8 lb /45.4 kg BMI: 15.7 kg/m^2 *Institutional Research Coordinator: * Kamilah Smith *Referring Physician: * Kimo Castanon *Reading Physician: * Eugene Talley MD Indications: Abnormal EKG. History: Coronary artery disease. PMH: Myocardial infarction. Risk factors: COPD. Hypertension. Conclusions Summary: - Left ventricle: The cavity size is below normal. Wall thickness is moderately increased. Systolic function is hyperdynamic. The estimated ejection fraction is 60-65%. Mild left ventricular outflow tract obstruction, peak gradient of 51 mmHg, peak velocity of 3.6 m/s with or without valsalva. - Right ventricle: Systolic function is normal. - Atrial septum: No defect or patent foramen ovale is identified. - Mitral valve: There is systolic anterior motion. There is trace regurgitation. - Aortic valve: There is no evidence of stenosis. - Tricuspid valve: There is trace regurgitation. - Pulmonary arteries: Systolic pressure can not be accurately estimated. - Compared to study of 09/08/19, the left ventricle function and valve function are the same. The Mild left ventricle out flow obstruction is new Study data: Transthoracic echocardiogram. Procedure: Transthoracic echocardiography was performed. Image quality was good. Complete 2D, spectral Doppler, and color flow Doppler. Location: Bedside. Patient status: Inpatient. Patient room number: 405. Findings Left ventricle: The cavity size is below normal. Wall thickness is moderately increased. Systolic function is hyperdynamic. The estimated ejection fraction is 60-65%. Mild left ventricular outflow tract obstruction, peak gradient of 51 mmHg, peak velocity of 3.6 m/s with or without valsalva. Doppler parameters are consistent with abnormal left ventricular relaxation (grade 1 diastolic dysfunction). Right ventricle: The cavity size is normal. Systolic function is normal. Left atrium: The atrium is mildly dilated. Right atrium: The atrium is normal in size. Atrial septum: No defect or patent foramen ovale is identified. Mitral valve: The leaflets are mildly thickened. There is systolic anterior motion. There is no evidence of stenosis. There is trace regurgitation. Aortic valve: The valve is trileaflet. The leaflets are mildly calcified. There is no evidence of stenosis. There is no significant regurgitation. Tricuspid valve: The valve is structurally normal. There is no evidence of stenosis. There is trace regurgitation. Pulmonic valve: The valve is structurally normal. There is no evidence of stenosis. There is no regurgitation. Aorta: The aortic root appears normal. Pericardium: There is no significant pericardial effusion. Pulmonary arteries: Systolic pressure can not be accurately estimated. Systemic veins: Inferior vena cava: Not well visualized. Pulmonary veins: Not well visualized. Measurements Left ventricle Value Ref Left atrium continued Value Ref [place], LAX (L) 3.5 cm 3.8 - Vol/bsa, ES, 1-p 29 ml/m^2 11 - 40 5.2 A4C ESD, LAX 2.2 cm 2.2 - Vol/bsa, ES, A/L (H) 37 ml/m^2 16 - 34 3.5 FS, LAX 39 % 27 - 45 Right atrium Value Ref PW, ED, LAX (H) 1.6 cm 0.6 - SI dim, ES 4.4 cm 3.4 - 0.9 5.3 FS 38 % 27 - 45 ML dim, ES, A4C 2.9 cm 2.6 - Mid-wall FS 9 % -------- 4.4 PW, ED (H) 1.6 cm 0.6 - SI dim, ES, A4C 4.4 cm 3.4 - 0.9 5.3 PW/ID, ED 0.45 -------- E', lat shady, TDI (L) 5.5 cm/sec >=10.0 Aortic valve Value Ref E', avg, TDI 5.0 cm/sec -------- Peak v, S 1.83 m/sec --- ---- E/e', avg, TDI (H) 16 <=14 VTI, S 33.6 cm ------- Mean grad, S 7.0 mm Hg ------- LVOT Value Ref Peak grad, S 13.0 mm Hg ------- Diam, S 2.00 cm -------- MILI, VTI 5.47 cm^2 ------- Area 3.1 cm^2 -------- MILI, Vmax 4.41 cm^2 ------- Peak edgar, S 2.57 m/sec -------- Peak grad, S 26 mm Hg -------- Mitral valve Value Ref Mean grad, S 15 mm Hg -------- Peak E 0.79 m/sec ------- SV 184 ml -------- Peak A 0.8 m/sec ------- Decel time 225 ms ------- Ventricular septum Value Ref Peak grad, D 2.5 mm Hg ------- IVS, ED (H) 1.6 cm 0.6 - Peak E/A ratio 1 ------- 0.9 Pulmonic valve Value Ref Right ventricle Value Ref Peak v, S 0.64 m/sec ------- [place], LAX 2.4 cm -------- Peak grad, S 2.0 mm Hg ------- A[place] minor ax, A4C 2.7 cm 1.9 - mid 3.5 Aortic root Value Ref Root diam 3.4 cm <3.8 Left atrium Value Ref ML dim, A4C 3.7 cm -------- SI dim, A4C 4.8 cm -------- Legend: (L) and (H) redd values outside specified reference range. Prepared and electronically signed by Eugene Talley MD 10/26/2019 10:54
[2019-10-26] MEDS: Morphine TAB Extended Release (*) 30 MG TAB.ER PO PRN ×3 (11:10→20:34)
[2019-10-26] MEDS ORDERED: Nicotine Patch Removal NOTE PATCH OFF SCH (21:00)
[2019-10-27] MEDS ORDERED: HYDROmorphone TAB* 4 MG PO ONE (01:54)
[2019-10-27] MEDS: HYDROmorphone TAB* 4 MG PO PRN ×3 (03:40→13:31)
[2019-10-27 06:19] LABS: Hematocrit 31 % (35-47); Hemoglobin 10.3 g/dL (12.0-16.0); Mean Corpuscular HGB Conc 34 g/dL (31-36); Mean Corpuscular Hemoglobin 28 pg (27-31); Mean Corpuscular Volume 83 fL (80-97); Mean Platelet Volume 7.4 fL (7.4-10.4); Platelet Count 257 10^3/uL (150-450); Red Blood Count 3.71 10^6 /uL (3.70-4.87); Red Cell Distribution Width 16 % (10-15); White Blood Count 9.1 10^3/uL (3.5-10.8)
[2019-10-27 06:35] LABS: BUN/Creatinine Ratio 34.1 (8-20); Calcium 7.4 mg/dL (8.6-10.3); EGFR African American 75.3 (>60); EGFR Non-African American 62.2 (>60); Potassium 3.7 mmol/L (3.5-5.0)
[2019-10-27] MEDS: Isosorbide Mononitrate ER TAB* 30 MG PO SCH (08:10)
[2019-10-27] MEDS: Pantoprazole TAB * 40 MG TAB PO SCH (08:11)
[2019-10-27] MEDS: Metoprolol Tartrate TAB* 25 MG PO SCH (08:11)
[2019-10-27] MEDS: Atorvastatin* 40 MG TAB PO SCH (08:11)
[2019-10-27] MEDS: Clopidogrel TAB* 75 MG PO SCH (08:11)
[2019-10-27] MEDS: Carisoprodol TAB* 350 MG PO PRN ×2 (08:11→13:30)
[2019-10-27] MEDS: amLODIPine TAB* 5 MG PO SCH (08:11)
[2019-10-27] MEDS: Folic Acid TAB* 1 MG PO SCH (08:12)
[2019-10-27] MEDS: Losartan TAB* 25 MG PO SCH (08:12)
[2019-10-27] MEDS: Multivitamins/Minerals TAB PO SCH (08:12)
[2019-10-27] MEDS: Nicotine PATCH 14 MG/24 HR* PATCH TRANSDERM SCH (08:16)
[2019-10-27] MEDS: Spironolactone TAB* 25 MG PO SCH (08:19)
[2019-10-27] MEDS: Morphine TAB Extended Release (*) 30 MG TAB.ER PO PRN (09:56)
[2019-10-27] MEDS: Ciprofloxacin 400MG IVPREMIX(* 400 MG/200 ML BAG IVPB SCH (10:45)
[2019-10-27 15:41] VITALS: BP 155/95
--- NOTE | 2019-10-27 19:50 | DS ---
CC: Dr. Trish Combs * DISCHARGE SUMMARY: DATE OF ADMISSION: 10/25/19 DATE OF DISCHARGE: 10/27/19 PRIMARY CARE PROVIDER: Dr. Trish Combs. ATTENDING PHYSICIAN: Dr. Tunde Brut.* (DICTATED BY KIMBERLEY MALDONADO NP) PRIMARY DIAGNOSES: 1. Toxic encephalopathy. 2. Urinary tract infection. SECONDARY DIAGNOSES: 1. Achalasia. 2. Coronary artery disease. 3. Hypertension. 4. Chronic pain. 5. Gastroesophageal reflux disease. 6. Hyperlipidemia. 7. Chronic obstructive pulmonary disease. STUDIES WHILE IN THE HOSPITAL: 1. Brain CT on 10/25/19 reads as no acute intracranial findings or significant changes since prior. 2. Lumbar spine x-ray on 10/25/19 reads as unchanged mild right convex curve centered at the L2-L3 level, straightening relative to normal lumbar lordosis without spondylolisthesis at any level. Negative for fracture or spondylosis. Diffuse degenerative spondylosis and facet joint osteoarthritis, increasing in severity, extending caudal. Disc space narrowing is severe at L4-L5. Unremarkable paraspinal soft tissue contour. 3. Chest x-ray on 10/25/19 reads as no acute cardiopulmonary process by radiograph. 4. EKG on 10/25/19 shows normal sinus rhythm with a rate of 71, probable LVH. Q waves in V5 and V6. 5. EKG on 10/26/19 shows normal sinus rhythm with a rate of 61. No changes since prior. 6. Transthoracic echocardiogram on 10/26/19 reads as the left ventricular cavity size is below normal. Wall thickness is moderately increased. Systolic function is hyperdynamic. The estimated ejection fraction is 60% to 65%. Mild left ventricular outflow tract obstruction. Peak gradient of 51 mmHg, peak velocity of 3.6 m/s with or without Valsalva. Right ventricular systolic function is normal. No septal defect or patent foramen ovale was identified. In the mitral valve, there is systolic anterior motion. There is trace MR. There is no evidence of . There is trace TR. Systolic pressure in the pulmonary artery cannot be accurately estimated. Compared to previous study of 09/08/19, the left ventricular function and valve function are the same. The mild left ventricular outflow obstruction is new. HISTORY OF PRESENT ILLNESS AND HOSPITAL COURSE: Ms. Prasad is a 64-year-old female with past medical history of advanced achalasia, requiring PEG tube; DVT/ PE; TIA; hyperlipidemia; CAD with stents; and COPD, who presented to the emergency room on 10/25/19 with complaints of hallucinations. Please see the history and physical by Dr. Castanon for complete summary of the events leading up to this hospitalization. In short, the patient is on high dose narcotics for chronic pain, though she has been on these for some period of time. The patient reportedly took Benadryl the day prior to presentation and the day of presentation for pruritus and subsequently was noted to have hallucinations. In the emergency room, she had imaging as noted above. She had lab work, which revealed mild leukocytosis and a UA suggestive of urinary tract infection. She was admitted by the hospitalist service. The patient's mental status gradually improved and as of yesterday 10/26/19, the patient remembered having some hallucination, though her memory of the day prior was poor. It was suspected that her altered mental status was likely due to a combination of Benadryl use and urinary tract infection. She was started on Cipro for UTI. Of note, she does have a PENICILLIN allergy listed as anaphylactic shock. The patient's hospital stay has otherwise been uneventful. On EKG, she was noted to have some Q waves in V5 and V6, which are noted to be new, though echocardiogram only showed some mild outflow obstruction. Troponin was negative and she did not have any chest pain during this hospitalization. The patient had an uneventful night last night. She does report feeling well today. She is anxious to go home. She reports that she has good support at home. She does have a neighbor, who is in the same apartment complex, who checks on her quite frequently. She was seen by Physical Therapy and Occupational Therapy today, both of whom noted that she did not have any acute needs. Today, again the patient reports feeling adequately "foggy," though otherwise well. PHYSICAL EXAMINATION: She is alert and oriented x4 and has no focal neurological deficits. Heart has irregular rate and rhythm without murmurs, rubs, or gallops. Lungs are clear to auscultation without rhonchi, wheezes or rubs. There is no edema. There is a PEG tube in place. Physical exam is otherwise benign. Ms. Prasad is stable for discharge. Most recent vitals are as follows: Temp 99.2, heart rate 82, respiratory rate 16, oxygen saturation 97% on room air, blood pressure 155/95. DISCHARGE MEDICATIONS: New Medications: 1. Ciprofloxacin 500 mg p.o. b.i.d. x3 days. Continued Medications: 1. Albuterol MDI 2 puffs q.4 hours p.r.n. shortness of breath. 2. Amlodipine 10 mg p.o. daily. 3. Atorvastatin 40 mg p.o. daily. 4. Soma 350 mg p.o. 4 times a day p.r.n. spasms. 5. Plavix 75 mg p.o. daily. 6. Famotidine 20 mg p.o. daily p.r.n. indigestion. 7. Flonase 2 sprays both nares daily p.r.n. allergy symptoms. 8. Folic acid 1 mg p.o. daily. 9. Hydromorphone 8 mg p.o. q.4 hours p.r.n. pain. 10. Isosorbide mononitrate 30 mg p.o. daily. 11. Losartan 100 mg p.o. daily. 12. Morphine ER 60 mg p.o. t.i.d. 13. Multivitamin 1 tab p.o. daily. 14. Nitro 0.4 mg sublingual q.5 minutes p.r.n. chest pain. 15. Pantoprazole 40 mg p.o. daily. 16. Spironolactone 25 mg p.o. daily. 17. Vitamin B12 1000 mcg IM monthly. 18. EpiPen 0.3 mg IM once p.r.n. allergy symptoms. 19. Ketotifen fumarate 1 drop both eyes b.i.d. p.r.n. allergy symptoms. 20. Lorazepam 0.25 to 0.5 mg p.o. bedtime p.r.n. anxiety. 21. Metoprolol tartrate 25 mg p.o. b.i.d. 22. Nicotine 10 mg nasal 4 times a day p.r.n. cravings. 23. Ondansetron 4 mg p.o. q.8 hours p.r.n. nausea/vomiting. 24. Pancrelipase 12,000 units p.o. t.i.d. a.c. Discontinued medication: Benadryl. DISCHARGE PLAN: Ms. Prasad will be discharged to home. Activity will be as tolerated. Diet will be as tolerated. The patient can resume her usual p.o. diet for comfort and her usual PEG tube feedings. Medications are noted above. The patient and will need to complete an additional 3 days of Cipro to complete a total of 5 days of antibiotic therapy for her urinary tract infection. Of note, at this time, there are no listed results of the urine culture, though I did speak with a tech in the lab, who reported that there is bacterial growth, though specific organism has not been identified at this time. She can continue her other usual medications as noted above except for Benadryl, which I have advised her that she stop taking as this is likely contributing to some of her altered mental status. She will need to follow up with her PCP in the next 4 to 7 days. She should return to the emergency room or nearest hospital for any worsening symptoms, shortness of breath, lightheadedness, dizziness, chest discomfort, high fevers, chills, night sweats , loss of consciousness, or any other worrisome signs or symptoms. DISCHARGE CONDITION: Stable. DISCHARGE DISPOSITION: Home. This is a summarized report of a complex medical history and hospital stay. For further details, please see the entire medical record. TIME SPENT: Approximately 45 minutes was spent on this discharge. KIMBERLEY MALDONADO NP [id number]/CPS #: [id number] [place]
== END 2019-10-27 16:30 | disposition home or self-care (01) | DRG 463 ==
LOC: ED 17:54 → MED 22:41
PROVIDERS: ADMIT Internal Medicine; ATTEND Internal Medicine
DX: N39.0 Urinary tract infection, site not specified (principal); G92 Toxic encephalopathy; E43 Unspecified severe protein-calorie malnutrition; Z68.1 Body mass index [BMI] 19.9 or less, adult; E78.00 Pure hypercholesterolemia, unspecified; K31.84 Gastroparesis; K22.70 Barrett's esophagus without dysplasia; I25.10 Atherosclerotic heart disease of native coronary artery without angina pectoris; I10 Essential (primary) hypertension; J44.9 Chronic obstructive pulmonary disease, unspecified; F41.9 Anxiety disorder, unspecified; F17.210 Nicotine dependence, cigarettes, uncomplicated; G89.29 Other chronic pain; K22.0 Achalasia of cardia; E78.5 Hyperlipidemia, unspecified; T45.0X5A Adverse effect of antiallergic and antiemetic drugs, initial encounter; R09.02 Hypoxemia; I16.0 Hypertensive urgency; K21.9 Gastro-esophageal reflux disease without esophagitis; Z88.8 Allergy status to other drugs, medicaments and biological substances; Z85.3 Personal history of malignant neoplasm of breast; Z88.6 Allergy status to analgesic agent; Z91.030 Bee allergy status; Z91.041 Radiographic dye allergy status; Z91.040 Latex allergy status; Z88.0 Allergy status to penicillin; Z91.013 Allergy to seafood; Z90.13 Acquired absence of bilateral breasts and nipples; Z95.5 Presence of coronary angioplasty implant and graft; Z86.711 Personal history of pulmonary embolism; Z86.718 Personal history of other venous thrombosis and embolism; I25.2 Old myocardial infarction; Z86.73 Personal history of transient ischemic attack (TIA), and cerebral infarction without residual deficits; Z93.1 Gastrostomy status; Z79.02 Long term (current) use of antithrombotics/antiplatelets; Z79.899 Other long term (current) drug therapy
CPT/HCPCS: 36415; 70450; 71046; 72100; 80048; 80053; 80307; 80320; 80329; 81003; 81015; 82803; 84443; 84484; 85025; 85027; 87086; 93005; 93306; 96374; 96375; 99284; A9270-GY; G0480; J0744; J1642; J1650; J2270

== ENCOUNTER 2019-12-19 16:50 | Inpatient (IN) | payer OTHER ==
[2019-12-19] MEDS ORDERED: Ondansetron INJ* 2 MG/ML VIAL IV ONE (16:55)
--- NOTE | 2019-12-19 16:56 | ED ---
HPI Chest Pain - HPI Summary HPI Summary: This patient is a 64 y/o female, with hx of MIs, presenting to [facility] via EMS c/ o left sided chest pain today. Patient reports she has been feeling unwell for the past severeal days with generalized weakness. Per EMS today patient suddenly woke up shaking and had a possible syncopal episode. Patient's chest pain is nonradiating and is rated 10/10 in severity. Per EMS, pt reported today' s chest pain feels like her last NV in January 2019. Additionally patient reports nausea and SOB. EMS administered 324 mg of aspirin [employer] as well as oxygen NC. Patient does not use oxygen at baseline at home. PMHx includes achalasia, breast CA, NV, DVT, PE. Patient has a PEG tube for severe achalasia and is being treated in [place] for this. Home Medications Medication Instructions Recorded Confirmed Type Cyanocobalamin INJ * [Vitamin B12 1,000 mcg IM MONTHLY 05/31/15 12/19/19 History INJ *] Ondansetron ODT TAB* [Zofran 4 MG 4 mg PO Q8HR PRN 07/23/17 12/19/19 History Odt TAB*] Nitroglycerin TAB 0.4 MG* 0.4 mg SL Q5M PRN #30 tab 04/19/18 12/19/19 Rx Pantoprazole TAB * [Protonix TAB*] 40 mg PO DAILY #0 11/14/18 12/19/19 History Carisoprodol TAB* [Soma TAB*] 350 mg PO QID PRN 12/12/18 12/19/19 History Clopidogrel TAB* [Plavix TAB*] 75 mg PO QAM 12/12/18 12/19/19 History amLODIPine TAB* [Norvasc 5 mg TAB*] 10 mg PO DAILY 12/12/18 12/19/19 History Folic Acid TAB* [Folvite TAB*] 1 mg PO DAILY 02/26/19 12/19/19 History HYDROmorphone TAB* [Dilaudid Tab*] 8 mg PO Q4H PRN MDD 12 tabs 02/26/19 History Albuterol HFA INHALER* [Ventolin 2 puff INH Q4H PRN 06/12/19 12/19/19 History HFA Inhaler*] EPINEPHrine [Epipen 2-Godwin] 0.3 mg IM ONCE PRN 06/12/19 12/19/19 History Famotidine TAB* [Pepcid 20 MG TAB*] 20 mg G TUBE DAILY PRN 06/12/19 12/19/19 History Fluticasone NASAL SPRAY 50MCG* 2 spray BOTH NARES DAILY PRN 06/12/19 12/19/19 History [Flonase NASAL SPRAY 50MCG*] Ketotifen Fumarate [Allergy Eye 1 drop BOTH EYES BID PRN 06/12/19 12/19/19 History Drops] LORazepam TAB(*) [Ativan 0.5 MG 0.25 - 0.5 mg PO BEDTIME PRN 06/12/19 12/19/19 History TAB (*)] Lactose-Reduced Food/Fiber [Jevity 1,185 ml G TUBE DAILY 06/12/19 12/19/19 History 1.5 Pineda Liquid] Nicotine [Nicotrol NS 10 MG/ML 10 mg NASAL QID PRN 06/12/19 12/19/19 History NASAL SPRAY] Isosorbide Mononitrate ER TAB* 30 mg PO DAILY 07/16/19 12/19/19 History [Imdur ER TAB*] Spironolactone 25 mg PO DAILY 09/08/19 12/19/19 History Atorvastatin* [Lipitor 40 MG*] 40 mg PO DAILY #30 tab 09/10/19 12/19/19 Rx Metoprolol Tartrate TAB* 25 mg PO BID tab 09/10/19 12/19/19 Rx [Lopressor TAB*] Losartan Potassium 100 mg PO DAILY 10/25/19 12/19/19 History Morphine Sulfate [Morphine Sulfate 60 mg PO TID #0 10/27/19 12/19/19 Rx ER] Atrovent Hfa 2 puff INH Q6H PRN 12/19/19 12/19/19 History Fluticasone NASAL SPRAY 50MCG* 2 spray BOTH NARES DAILY 12/19/19 12/19/19 History [Flonase NASAL SPRAY 50MCG*] Levocetirizine Dihydrochloride 5 mg PO QPM PRN 12/19/19 12/19/19 History [Xyzal Allergy 24Hr] Multivitamins/Minerals TAB* 1 tab PO DAILY 12/19/19 12/19/19 History [Theragran/minerals TAB*] Spiriva Respimat 2 inh INH DAILY 12/19/19 12/19/19 History Thiamine HCl [Vitamin B-1] 100 mg PO DAILY 12/19/19 12/19/19 History - History of Current Complaint Time Seen by Provider: 12/19/19 16:52 Hx Obtained From: Patient, EMS Onset/Duration: Started Hours Ago, Still Present Timing: Lasting Hours Current Severity: Severe Pain Intensity: 10 Pain Scale Used: 0-10 Numeric Chest Pain Location: Left Anterior Chest Pain Radiates: No Aggravating Factor(s): Nothing Alleviating Factor(s): Nothing Associated Signs and Symptoms: Positive: Chest Pain, Weakness, Shortness of Breath, Syncope - ?, Nausea. Negative: Fever, Chills - Additional Pertinent History Primary Care Physician: [id number] - Allergy/Home Medications Allergies/Adverse Reactions: Allergies Allergy/AdvReac Type Severity Reaction Status Date / Time albumin colloid, human Allergy Severe Anaphylatic Verified 12/19/19 17:01 Shock bee venom protein (honey bee) Allergy Severe Anaphylatic Verified 12/19/19 17:01 Shock diphenhydramine Allergy Severe Hallucinati Verified 12/19/19 17:01 [From Benadryl] ons Iodinated Contrast Media Allergy Severe Anaphylatic Verified 12/19/19 17:01 [Iodinated Contrast- Oral Shock and IV Dye] onabotulinumtoxinA Allergy Severe Anaphylatic Verified 12/19/19 17:01 [From Botox] Shock Penicillins Allergy Severe Anaphylatic Verified 12/19/19 17:01 Shock shellfish derived Allergy Severe Anaphylatic Verified 12/19/19 17:01 Shock Adhesive Tape Allergy Mild Itching Verified 12/19/19 17:01 chlorhexidine Allergy Mild Rash And Verified 12/19/19 17:01 Itching latex Allergy Mild Hives Verified 12/19/19 17:01 NSAIDS (Non-Steroidal Allergy Mild Hives Verified 12/19/19 17:01 Anti-Inflamma povidone-iodine Allergy Mild Itching Verified 12/19/19 17:01 oxycodone Allergy Unknown Unknown Verified 12/19/19 17:01 Reaction Details fentanyl Allergy Hallucinati Verified 12/19/19 17:01 ons Gadolinium-Containing Allergy Itching Verified 12/19/19 17:01 Contrast Medi ENVIRONMENTAL/SEASONAL Allergy Mild ITCHY,WATERY Uncoded 05/27/19 10:29 HAYFEVER EYES, SNEEZE, CONGESTION Home Medications: Home Medications Cyanocobalamin INJ * [Vitamin B12 INJ *] 1,000 mcg IM MONTHLY 05/31/15 [History Confirmed 12/19/19] Ondansetron ODT TAB* [Zofran 4 MG Odt TAB*] 4 mg PO Q8HR PRN 07/23/17 [History Confirmed 12/19/19] Nitroglycerin TAB 0.4 MG* 0.4 mg SL Q5M PRN #30 tab 04/19/18 [Rx Confirmed ] Pantoprazole TAB * [Protonix TAB*] 40 mg PO DAILY #0 11/14/18 [History Confirmed 12/19/19] Carisoprodol TAB* [Soma TAB*] 350 mg PO QID PRN 12/12/18 [History Confirmed ] Clopidogrel TAB* [Plavix TAB*] 75 mg PO QAM 12/12/18 [History Confirmed 12/19/19 ] amLODIPine TAB* [Norvasc 5 mg TAB*] 10 mg PO DAILY 12/12/18 [History Confirmed 12/19/19] Folic Acid TAB* [Folvite TAB*] 1 mg PO DAILY 02/26/19 [History Confirmed ] HYDROmorphone TAB* [Dilaudid Tab*] 8 mg PO Q4H PRN MDD 12 tabs 02/26/19 [ History Confirmed 12/19/19] Albuterol HFA INHALER* [Ventolin HFA Inhaler*] 2 puff INH Q4H PRN 06/12/19 [ History Confirmed 12/19/19] EPINEPHrine [Epipen 2-Godwin] 0.3 mg IM ONCE PRN 06/12/19 [History Confirmed ] Famotidine TAB* [Pepcid 20 MG TAB*] 20 mg G TUBE DAILY PRN 06/12/19 [History Confirmed 12/19/19] Fluticasone NASAL SPRAY 50MCG* [Flonase NASAL SPRAY 50MCG*] 2 spray BOTH NARES DAILY PRN 06/12/19 [History Confirmed 12/19/19] Ketotifen Fumarate [Allergy Eye Drops] 1 drop BOTH EYES BID PRN 06/12/19 [ History Confirmed 12/19/19] LORazepam TAB(*) [Ativan 0.5 MG TAB (*)] 0.25 - 0.5 mg PO BEDTIME PRN 06/12/19 [ History Confirmed 12/19/19] Lactose-Reduced Food/Fiber [Jevity 1.5 Pineda Liquid] 1,185 ml G TUBE DAILY [History Confirmed 12/19/19] Nicotine [Nicotrol NS 10 MG/ML NASAL SPRAY] 10 mg NASAL QID PRN 06/12/19 [ History Confirmed 12/19/19] Isosorbide Mononitrate ER TAB* [Imdur ER TAB*] 30 mg PO DAILY 07/16/19 [History Confirmed 12/19/19] Spironolactone 25 mg PO DAILY 09/08/19 [History Confirmed 12/19/19] Atorvastatin* [Lipitor 40 MG*] 40 mg PO DAILY #30 tab 09/10/19 [Rx Confirmed ] Metoprolol Tartrate TAB* [Lopressor TAB*] 25 mg PO BID tab 09/10/19 [Rx Confirmed 12/19/19] Losartan Potassium 100 mg PO DAILY 10/25/19 [History Confirmed 12/19/19] Morphine Sulfate [Morphine Sulfate ER] 60 mg PO TID #0 10/27/19 [Rx Confirmed ] Atrovent Hfa 2 puff INH Q6H PRN 12/19/19 [History Confirmed 12/19/19] Fluticasone NASAL SPRAY 50MCG* [Flonase NASAL SPRAY 50MCG*] 2 spray BOTH NARES DAILY 12/19/19 [History Confirmed 12/19/19] Levocetirizine Dihydrochloride [Xyzal Allergy 24Hr] 5 mg PO QPM PRN 12/19/19 [ History Confirmed 12/19/19] Multivitamins/Minerals TAB* [Theragran/minerals TAB*] 1 tab PO DAILY 12/19/19 [ History Confirmed 12/19/19] Spiriva Respimat 2 inh INH DAILY 12/19/19 [History Confirmed 12/19/19] Thiamine HCl [Vitamin B-1] 100 mg PO DAILY 12/19/19 [History Confirmed 12/19/19] PMH/Surg Hx/FS Hx/Imm Hx Endocrine/Hematology History: Reports: Hx Anticoagulant Therapy - plavix, Hx Anemia - possible Denies: Hx Diabetes, Hx Thyroid Disease Cardiovascular History: Reports: Hx Angina - has prn nitro, Hx Coronary Artery Disease - 2 stents- RCA stent 2006, LAD stent 2007, Hx Deep Vein Thrombosis, Hx Embolism, Hx Hypercholesterolemia, Hx Hypertension, Hx Myocardial Infarction, Hx Syncope, Other Cardiovascular Problems/Disorders - cardiac cath Denies: Hx Congestive Heart Failure, Hx Pacemaker/ICD, Hx Valvular Heart Disease Respiratory History: Reports: Hx Chronic Obstructive Pulmonary Disease (COPD) - Pt denies though providers have diagnosed it, Hx Pneumonia, Hx Pulmonary Embolism - and DVT 30 yrs ago, Hx Seasonal Allergies, Other Respiratory Problems /Disorders - SMOKER Denies: Hx Asthma, Hx Sleep Apnea GI History: Reports: Hx Diverticulosis, Hx Gastroesophageal Reflux Disease, Hx Hiatal Hernia - 3 surgeries, Other GI Disorders - achalasia, Fernández's esophagus , gastroparesis, J tube Denies: Hx Ulcer History: Reports: Hx Kidney Infection, Hx Kidney Stones - LAST 12/2015- NO PROBLEMS SINCE PER PATIENT Denies: Hx Dialysis, Hx Renal Disease, Other Problems/Disorders Musculoskeletal History: Reports: Hx Back Problems, Other Musculoskeletal History - L1 fx Denies: Hx Arthritis, Hx Osteoporosis Sensory History: Reports: Hx Cataracts - bilat cataracts Denies: Hx Contacts or Glasses, Hx Hearing Aid Opthamlomology History: Reports: Hx Cataracts - bilat cataracts Denies: Hx Contacts or Glasses Neurological History: Reports: Hx Spinal Cord Injury - L1, Hx Transient Ischemic Attacks (TIA) - 10/2017 [facility] Psychiatric History: Reports: Hx Anxiety Denies: Hx Panic Disorder - Cancer History Cancer Type, Location and Year: RT BREAST CA, 2009 HAD A BILATERAL MASTECTOMY Hx Chemotherapy: No Hx Radiation Therapy: No - Surgical History Surgery Procedure, Year, and Place: RT LUMPECTOMY 02/2010, BILATERAL MASTECTOMY ,. 2006& 2008 CARDIAC STENT AT [facility] IN [place],. LEFT KNEE SURGERY X10,. BILATERAL SHOULDER SURGERY,. ESPOHOGEAL SURGERY,1996, 2014. failed breast implant on left. PARTIAL HYSTERECTOMY, 1976. APPENDIX A CHILD,. CHEST TUBE, 1996. ESOPHAGEAL DILATION. NISSIN FUNDOLPICATION multiple. total left knee replacement 2016. kidney stone surgery. left chest wound surgery 2010. Insertion Infusaport 02/2018 Hx Anesthesia Reactions: No - Immunization History Date of Tetanus Vaccine: utd Date of Influenza Vaccine: fall 2016 Infectious Disease History: Reports: Hx Clostridium Difficile Denies: Hx Hepatitis, Hx Human Immunodeficiency Virus (HIV), Hx of Known/ Suspected MRSA, Hx Shingles, Hx Tuberculosis, Hx Known/Suspected VRE, Hx Known/ Suspected VRSA, History Other Infectious Disease - Family History Known Family History: Positive: Cardiac Disease - Father, 2 brothers - NV. Mother - AFIB, Hypertension, Diabetes - Social History Alcohol Use: None Hx Substance Use: No Substance Use Type: Reports: None Substance Use Comment - Amount & Last Used: prescribed Hx Tobacco Use: Yes Smoking Status (MU): Current Every Day Smoker Type: Cigarettes Amount Used/How Often: 1/2 PPD Length of Time of Smoking/Using Tobacco: 40+ YEARS Have You Smoked in the Last Year: No Review of Systems Negative: Fever Positive: Chest Pain Positive: Shortness Of Breath Positive: Nausea Positive: Weakness - generalized, Syncope - ? All Other Systems Reviewed And Are Negative: Yes Physical Exam - Summary Physical Exam Summary: VITAL SIGNS: Reviewed. GENERAL: Patient is a well-developed and nourished female who is lying comfortable in the stretcher. Patient is not in any acute respiratory distress. HEAD AND FACE: No signs of trauma. No ecchymosis, hematomas or skull depressions. No sinus tenderness. EYES: PERRLA, EOMI x 2, No injected conjunctiva, no nystagmus. EARS: Hearing grossly intact. Ear canals and tympanic membranes are within normal limits. MOUTH: Oropharynx within normal limits. NECK: Supple, trachea is midline, no adenopathy, no JVD, no carotid bruit, no c- spine tenderness, neck with full ROM. CHEST: Symmetric, no tenderness at palpation. Breast implants. LUNGS: Clear to auscultation bilaterally. No wheezing or crackles. CVS: Regular rate and rhythm, S1 and S2 present, no murmurs or gallops appreciated. ABDOMEN: Soft, non-tender. No signs of distention. No rebound no guarding, and no masses palpated. Bowel sounds are normal. Patient has a PEG tube. EXTREMITIES: FROM in all major joints, no edema, no cyanosis or clubbing. NEURO: Alert and oriented x 3. No acute neurological deficits. Speech is normal and follows commands. SKIN: Dry and warm Triage Information Reviewed: Yes Vital Signs On Initial Exam: Initial Vitals Temp Pulse Resp BP Pulse Ox 98.3 F 84 20 228/158 93 12/19/19 16:57 12/19/19 16:57 12/19/19 16:57 12/19/19 16:57 12/19/19 16:57 Vital Signs Reviewed: Yes Procedures - Sedation Patient Received Moderate/Deep Sedation with Procedure: No Diagnostics - Laboratory Result Diagrams: 12/19/19 17:24 12/19/19 17:24 Lab Statement: Any lab studies that have been ordered have been reviewed, and results considered in the medical decision making process. - Radiology Chest XR Radiology Interpretation Completed By: Radiologist Summary of Radiographic Findings: IMPRESSION: No radiographic evidence for acute cardiopulmonary abnormality on this portable chest x-ray. Dr. Carrion has reviewed this report. - EKG 16:53 Cardiac Rate: NL - at 83 bpm EKG Rhythm: Sinus Rhythm EKG Comparison: No Significant Change - similar to prior EKGs on 10/25/19 and . Summary of EKG Findings: EKG at 1653 shows sinus rhythm at a rate of [address] elevations. EKG similar to prior on 10/25/19 and 10/26/19. This EKG was interpreted and reviewed by ED physician. Chest Pain Course/Dx - Course Assessment/Plan: This patient is a 64 y/o female, with hx of MIs, presenting to [facility] via EMS c/o left sided chest pain today. Patient reports she has been feeling unwell for the past several days with generalized weakness. Per EMS today, the patient suddenly woke up shaking and had a possible syncopal episode. Patient's chest pain is nonradiating and is rated 10/10 in severity. Per EMS, pt reported today's chest pain feels like her last NV in January 2019. Additionally, patient report nausea and SOB. EMS administered 324 mg of aspirin [employer] as well as oxygen NC. Patient does not use oxygen at baseline at home. PMHx includes achalasia, breast CA, NV, DVT, PE. Patient has a PEG tube for severe achalasia and is being treated in [place] for this. In the ED course the patient was placed in a child monitor, IV access was obtained, IV fluids were started. Patient was given ASA By EMS. In the ED she was given Zofran for nausea, Morphine as well as Nitroglycerin for the pain. Patient is hypertensive and she was given Labetalol 20 mg IV. Blood test w/o a significant abnormality except for WBCs 11.4, absolute neutrophils 9.7, Sodium 129, chloride 94, CO2 20. AG 15, BUN 31, creatinine 1.02, glucose 125, Magnesium 1.5, BNP 273. First troponin is 0.01. EKG today is similar to previous EKG. Chest x-ray impression: No acute cardiothoracic disease. Heart score is 5. Patient is still hypertensive therefore she was given another dose of labetalol 20 mg IV. At this time I discussed my physical exam and findings with Dr. Olivera from the hospitalist services and he accepted the patient for admission. The patient is hemodynamically stable, alert and oriented 3. - Chest Pain Differential Diagnosis/HQI/PQRI: Acute NV, ACS, Angina, CHF, Chest Wall, GI Disease, Lower Respiratory Infection, Pulmonary Edema - Diagnoses Provider Diagnoses: Hypertensive urgency, Chest pain - Provider Notifications Discussed Care Of Patient With: Tin Olivera - hospitalist Time Discussed With Above Provider: 18:54 Instructed by Provider To: Admit As Inpatient - Critical Care Time Critical Care Time: 30-74 min Discharge ED - Sign-Out/Discharge Documenting (check all that apply): Patient Departure - Admit [place] [facility] [place] Discharge Plan Condition: Stable Disposition: ADMITTED TO [facility] - Billing Disposition and Condition Condition: STABLE Disposition: Admitted to [facility] - Attestation Statements Document Initiated by Kiarra: Yes Documenting Scribe: Candida Denton Provider For Whom Marielyibe is Documenting (Include Credential): Polo Carrion MD Scribe Attestation: ICandida scribed for Polo Carrion MD on 12/19/19 at 2120. Scribe Documentation Reviewed: Yes Provider Attestation: The documentation as recorded by the Candida vyas accurately reflects the service I personally performed and the decisions made by me, Polo Carrion MD Status of Scribe Document: Viewed
[2019-12-19] MEDS ORDERED: Labetalol IV* 5 MG/ML 20 ML VIAL IV PUSH ONE ×2 (17:28→18:46)
[2019-12-19] MEDS ORDERED: Morphine 4 MG/ML VIAL (1 ml) 4 MG/ML VIAL IV ONE (17:29)
[2019-12-19 17:33] LABS: ABS Basophils 0.1 10^3/ul (0-0.2); ABS Lymphocytes 0.9 10^3/ul (1.0-4.8); ABS Monocytes 0.7 10^3/ul (0-0.8); ABS Neutrophils 9.7 10^3/ul (1.5-7.7); Hematocrit 45 % (35-47); Mean Corpuscular HGB Conc 34 g/dL (31-36); Mean Corpuscular Hemoglobin 28 pg (27-31); Mean Corpuscular Volume 82 fL (80-97); Mean Platelet Volume 7.5 fL (7.4-10.4); Nucleated Red Blood Cells % 0.1; Platelet Count 401 10^3/uL (150-450); Red Blood Count 5.41 10^6 /uL (3.70-4.87); Red Cell Distribution Width 16 % (10-15); White Blood Count 11.4 10^3/uL (3.5-10.8)
[2019-12-19 17:42] LABS: Activated Partial Thrombo Time 34.5 seconds (26.0-38.0); INR 1.02 (0.82-1.09)
--- OUTSIDE RECORDS SUMMARY | 2019-12-19 17:45 | XMS REPORT ---
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 jamul coronary coronary artery w/o artery w/o ang pctrs ang pctrs Encounter Encounter Diagnosis Active Mercedez for for 07-07 Ingrahm attention attention [id number] to to gastrostomy gastrostomy Gastro-esop Gastro-esop Diagnosis Active Mercedez hageal hageal 07-07 Ingrahm reflux reflux [id number] disease disease without without esophagitis esophagitis Other Other Diagnosis Active Mercedez specified specified 07-07 Ingrahm arthritis, arthritis, [id number] unspecified unspecified site site Essential Essential Diagnosis Active Mer[facility]ez (primary) (primary) 07-07 Ingrahm hypertensio hypertensio [id number] [facility] Diagnosis Active [facility]ez (current) (current) Ingrahm use of use of [id number] anticoagula anticoagula nts nts Nicotine Nicotine Diagnosis Active Mercedez dependence, dependence, Ingrahm cigarettes, cigarettes, [id number] uncomplicat uncomplicat ed ed Personal Personal Diagnosis Active Mer[facility]ez history of history of Ingrahm malignant malignant [id number] neoplasm of neoplasm of breast breast Prsnl hx of Prsnl hx of Diagnosis Active Mercedez TIA (TIA), TIA (TIA), Ingrahm and cereb and cereb [id number] infrc w/o infrc w/o resid resid deficits deficits Pain frequent Pain Mgmt Resolve 2018-11-26 Naa pain d 9 16:15:00 [place] 13:30: [id number] 00 Pain severe pain Pain Mgmt Resolve 2018-11-26 Ana d 9 16:15:00 [place] 13:30: [id number] 00 Endo/Han anti-coagul Endo/Han Resolve 2019-02-06 Ana ation d 07-07 11:15:00 [place] therapy 13:30: [id number] 00 Integument surgical Integument Resolve 2018-08-05 Rea wound d 07-07 13:35:00 [place] present 13:30: [id number] 00 Nutrition nutritional Nutrition Resolve 2019-01-02 Ana restriction d 07-07 10:00:00 [place] s 13:30: [id number] 00 Nutrition changing Nutrition Resolve 2019-01-02 Ana weight/appe d 07-07 10:00:00 [place] tite 13:30: [id number] 00 Nutrition nutritional Nutrition Resolve 2019-01-02 Ana risk d 07-07 10:00:00 [place] 13:30: [id number] 00 Nutrition enteral Nutrition Resolve 2019-02-06 Ana therapy d 07-07 11:15:00 [place] 13:30: [id number] 00 Safety structural Safety Resolve 2019-02-06 Ana barriers d 07-07 11:15:00 [place] present 13:30: [id number] 00 Safety fall risk Safety Resolve 2019-02-06 Ana factor d 07-07 11:15:00 [place] present 13:30: [id number] 00 Safety risk for Safety Resolve 2019-02-06 Ana hospitaliza d 07-07 11:15:00 [place] tion 13:30: [id number] 00 Medication potential Meds Resolve 2019-02-06 Ana clinically d 07-07 11:15:00 [place] significant 13:30: [id number] medication 00 issue Musculoskel requires Musculoske Resolve 2019-02-06 Ana etal human letal d 07-07 11:15:00 [place] assist to 13:30: [id number] leave home 00 IV IV present IV Resolve 2019-02-06 Rea d 9-30 11:15:00 [place] [id number] Respiratory dyspnea Respirator Resolve 2017-102019-02-06 [place] present y d 0-16 11:15:00 [place] 13:35: [id number] 00 Neuro confusion Neuro/Emot Unknown 2017-10 [facility] present ion 0-16 [place] 13:35: [id number] 00 Neuro depressive Neuro/Emot Unknown 2017-10 [facility] feelings ion 0-16 [place] present 13:35: [id number] 00 Safety can be left Safety Resolve 2017-102019-02-06 Mercedez alone for d 0-18 11:15:00 [place] only short 08:10: [id number] periods 00 Integument surgical Integument Resolve 2017-102018-10-30 Shila wound d 1-15 10:10:00 Brian present 08:55: [id number] 00 Elimination GI drain or Eliminatio Resolve 2017-102019-02-06 Shila tube n d 1-15 11:15:00 Brian present 08:55: [id number] 00 Neuro anxiety Neuro/Emot Resolve 2017-102019-02-06 Shila present ion d 1-15 11:15:00 Brian 08:55: [id number] 00 Medication injectable Meds Resolve 2017-102019-02-06 Shila med d 1-15 11:15:00 Brian assistance 08:55: [id number] required 00 Safety fire risk Safety Resolve 2017-102019-02-06 Shila present d 1-15 11:15:00 [place] 13:00: [id number] 00 Elimination urinary Eliminatio Resolve 2019-02-06 [facility] incontinenc n d - 11:15:00 [place] e 14:20: [id number] 00 Pain frequent Pain Mgmt Resolve 2019-02-06 [facility] pain d 2-15 11:15:00 [place] 10:15: [id number] 00 Safety risk for Safety Unknown Leanna hospitaliza 02-06 [place] tion 15:45: [id number] 00 Respiratory lung sounds Respirator Resolve 2019-04-03 Leanna deficit y d 02-10 10:01:00 [place] 13:20: [id number] 00 Respiratory smoker Respirator Resolve 2019-04-03 Leanna y d 4-29 10:01:00 Regeczi 12:10: [id number] 00 Respiratory dyspnea Respirator Resolve 2019-06-05 [facility] present y d 5-15 10:30:00 [place] 09:00: [id number] 00 Integument surgical Integument Resolve 2019-03-27 [facility] wound d 5-15 09:15:00 [place] present 09:00: [id number] 00 Nutrition enteral Nutrition Resolve 2019-03-27 [facility] therapy d -15 09:15:00 [place] 09:00: [id number] 00 Elimination urinary Eliminatio Resolve 2019-04-10 [facility] incontinenc n d 15 09:30:00 [place] e 09:00: [id number] 00 Neuro confusion Neuro/Emot Resolve 2019-11-25 [facility] present ion d 15 11:10:00 [place] 09:00: [id number] 00 Neuro anxiety Neuro/Emot Resolve 2019-11-25 [facility] present ion d 515 11:10:00 [place] 09:00: [id number] 00 Neuro depressive Neuro/Emot Resolve 2019-11-25 [facility] feelings ion d 15 11:10:00 [place] present 09:00: [id number] 00 Neuro impaired Neuro/Emot Resolve 2019-11-25 [facility] decision-ma ion d 15 11:10:00 [facility] sonali 09:00: [id number] 00 Activity self-care Activity Resolve 2019-05-20 [place] deficit d -15 11:15:00 [place] 09:00: [id number] 00 Safety fall risk Safety Resolve 2019-07-17 [facility] factor d 5-15 10:35:00 [place] present 09:00: [id number] 00 Safety risk for Safety Resolve 2019-07-17 Mer[facility] hospitaliza d 5-15 10:35:00 [place] tion 09:00: [id number] 00 Medication potential Meds Resolve 2019-03-27 Mer[facility]ez clinically d 5-15 09:15:00 [place] significant 09:00: [id number] medication 00 issue Integument surgical Integument Resolve 2019-05-20 [facility] wound d 7-12 11:15:00 [place] present 10:00: [id number] 00 Nutrition enteral Nutrition Resolve 2019-06-26 [facility] therapy d 7-12 10:35:00 [place] 10:00: [id number] 00 Respiratory dyspnea Respirator Resolve 2019-08-07 Leanna present y d 06-26 10:25:00 [place] 10:35: [id number] 00 Respiratory smoker Respirator Resolve 2019-07-01 Leanna y d 06-26 10:15:00 [place] 10:35: [id number] 00 Endo/Han anti-coagul Endo/Han Resolve 2019-07-23 Leanna ation d 06-26 10:15:00 [place] therapy 10:35: [id number] 00 Elimination urinary Eliminatio Resolve 2019-07-23 Leanna incontinenc n d 06-26 10:15:00 Rege[place]zi e 10:35: [id number] 00 Elimination nausea/vomi Eliminatio Resolve 2019-07-01 Leanna serranog n d 06-26 10:15:00 [place] 10:35: [id number] 00 Integument surgical Integument Resolve 2019-07-23 [facility] wound d 9-11 10:15:00 [place] present 10:15: [id number] 00 Nutrition enteral Nutrition Resolve 2019-07-23 [facility] therapy d 07-01 10:15:00 [place] 10:15: [id number] 00 Respiratory smoker Respirator Resolve 2019-07-16 Leanna y d 07-16 10:05:00 [place] 10:05: [id number] 00 Elimination diarrhea Eliminatio Resolve 2019-07-23 Leanna n d 07-17 10:15:00 [place] 10:35: [id number] 00 Cardio hypertensio Cardiovasc Resolve 2018-102019-07-30 Leanna olivares 0 10:00:00 [place] 10:15: [id number] 00 Safety risk for Safety Resolve 2018-102019-07-23 Leanna hospitaliza d 0-03 10:15:00 [place] tion 10:15: [id number] 00 24 Hr Diet knowledge/s NT: 24Hr Resolve 2018-102019-07-23 Wen kill Diet d 0-03 15:00:00 [place] deficit - 15:00: [id number] pt 00 Nutritional eating NT: Resolve 2018-102019-07-23 Wen Barrier difficultie Barriers d 0-03 15:00:00 [place] s present 15:00: [id number] Safety risk for Safety Resolve 2018-102019-08-07 Roseline hospitaliza d 0-04 10:25:00 [place] tion 14:00: [id number] 00 Social financial MURIEL: Active 2018-10 [facility] Services resource Social 0-04 [place] deficit Services 14:00: [id number] 00 Social support MURIEL: Active 2018-10 [facility] deficit Social 0-04 [place] Services 14:00: [id number] 00 Social knowledge/s MURIEL: Active 2018-10 [facility] kill Social 0-04 [place] deficit - Services 14:00: [id number] pt 00 Social financial MURIEL: Unknown 2018-10 [facility] Services resource Social 0-10 [facility] deficit Services 15:00: [id number] 00 Social knowledge/s MURIEL: Unknown 2018-10 [facility] Services kill Social 0-10 [place] deficit - Services 15:00: [id number] pt 00 Respiratory lung sounds Respirator Resolve 2018-102019-08-07 Leanna deficit y d 0-18 10:25:00 [place] 10:25: [id number] 00 Respiratory dyspnea Respirator Resolve 2018-102019-10-23 [facility]ez present y d 10-28 10:15:00 [place] 11:00: [id number] 00 Integument surgical Integument Resolve 2018-102019-09-11 [facility] wound d 10-28 09:50:00 [place] present 11:00: [id number] 00 Nutrition enteral Nutrition Resolve 2018-102019-09-11 [facility] therapy d 10-28 09:50:00 [place] 11:00: [id number] 00 Elimination urinary Eliminatio Resolve 2018-102019-09-11 [facility] incontinenc n d 10-28 09:50:00 Ingra[place] e 11:00: [id number] 00 Safety fall risk Safety Resolve 2018-102019-09-11 [facility] factor d 10-28 09:50:00 [place] present 11:00: [id number] 00 Safety risk for Safety Resolve 2018-102019-09-23 [facility] hospitaliza d 10-28 11:10:00 [place] tion 11:00: [id number] 00 Safety risk for Safety Unknown 2018-10 [facility] hospitaliza 11-24 Ingrahm tion 15:00: [id number] 00 Cardio hypertensio Cardiovasc Resolve 2019-11-25 Leanna n ular d 10-23 11:10:00 [place] 10:15: [id number] 00 Elimination urinary Eliminatio Resolve 2019-11-05 Leanna incontinenc n d 10-23 10:23:00 Regeczi e 10:15: [id number] 00 Elimination constipatio Eliminatio Resolve 2019-11-05 Leanna n n d 10-23 10:23:00 [place] 10:15: [id number] 00 Integument surgical Integument Resolve 2019-11-19 [facility] wound d 10-28 10:50:00 [place] present 10:50: [id number] 00 Nutrition enteral Nutrition Resolve 2019-11-25 [facility] therapy d 10-28 11:10:00 [place] 10:50: [id number] 00 Elimination UTI within Eliminatio Resolve 2019-11-05 Mercedez past 14 n d 10-28 10:23:00 Ingra[place] days 10:50: [id number] 00 Activity self-care Activity Resolve 2019-11-05 [facility] deficit d 10-28 10:23:00 [place] 10:50: [id number] 00 Safety fall risk Safety Resolve 2019-11-05 Mer[facility]ez factor d 10-28 10:23:00 [place] present 10:50: [id number] 00 Safety risk for Safety Resolve 2019-11-05 Mer[facility]ez hospitaliza d 10-28 10:23:00 [place] tion 10:50: [id number] 00 Safety risk for Safety Active Roseline denis 2-12 [facility] tion 11:00: [id number] 00 Allergies, Adverse Reactions, Alerts Allergy Allergy Status Severity Reaction(s) Onset Inactive Treating Comments Name Type Date Date Clinician latex Base Active Unknown Hives Merecdez Ingredient 07-07 Ingrahm [id number] amoxicillin Base Active Unknown Anaphylaxis [facility] Ingredient 07-07 Ingrahm [id number] bee venom Base Active Unknown Anaphylaxis [facility] protein Ingredient 07-07 Ingrahm (honey bee) [id number] Botox Medication Active Unknown Anaphylaxis [id number] contrast Unknown Active Unknown Anaphylaxis Mer[facility]ez dye 07-07 Ingrm [id number] Penicillins Allergen Active Unknown Anaphylaxis [facility] Group 07-07 Ingrm [id number] shellfish Base Active Unknown Anaphylaxis Mer[facility]ez derived Ingredient 07-07 [facility] [id number] adhesive Base Active Unknown Hives Mer[facility] tape Ingredient 07-07 Ingrm [id number] nsaids Unknown Active Unknown stomach issues 2017- [facility]ez 07-07 Ingrm [id number] oxycodone Base Active Unknown swelling Mer[facility] Ingredient 07-07 Ingrm [id number] Betadine Medication Active Unknown Rash 2017- [facility] [id number] Hibiclens Medication Active Unknown Rash Mer[facility]ez Name ID 07-07 [facility] [id number] evironmenta Unknown Active Unknown hay fever, 2018 Rea l/seasonal watery eye, 07-07 Guidelli itching, [id number] sneeze, congestion povidone-io Base Active Unknown itching Rea dine Ingredient 07-07 [place] [id number] Iodine and Allergen Active Unknown Anaphylaxis Rea Iodide Group 07-07 [place] Containing [id number] Products albumin Base Active Unknown Anaphylaxis Rea colloid, Ingredient 07-07 Guidelli human [id number] fentanyl Base Active Unknown hallucinations Rea Ingredient 07-07 [place] [id number] Medications Ordered Filled Start Stop Current Ordering Indication Dosage Frequency Signature Comments Components Medication Medication Date Date Medication? Clinician (SIG) Name Name Jevity 1.5 Jevity 1.5 2018- No Blegen Unknown Unknown Pineda 0.06 Pineda 0.06 07-07 0106 Tashia FINCH gram-1.5 gram-1.5 e kcal/mL kcal/mL [...] Unknown Unknown tartrate 50 tartrate 50 07-07 Tashia FINCH mg tablet mg tablet e carisoprodo carisoprodo 2018- No Blegen Unknown Unknown l 350 mg l 350 mg 07-07 Tashia FINCH tablet tablet e 0.9% normal 0.9% normal 2019- No Blegen Unknown Unknown saline saline 07-20 [...] tablet 07-07 Tashia FINCH e Normal Normal 2019- No Blegen Unknown Unknown Saline Saline 07-20 Tashia FINCH Flush 0.9 % Flush 0.9 % e injection injection syringe syringe heparin heparin 2019- No Ble[place] Unknown Unknown Lock Flush Lock [...] ne 4 mg 12-23 ,Douglas tablet tablet levoFLOXaci levoFLOXaci 2018- No [...] Unknown e 40 mg e 40 mg 10-26-15 ,Tashia tablet,linda tablet,linda e yed release yed [...] isosorbide No Blegen Unknown Unknown mononitrate mononitrate 02-14 Tashia FINCH ER 30 mg ER 30 mg e tablet,exte tablet,exte nded nded release 24 release 24 hr hr ondansetron ondansetron No Blegen Unknown Unknown 4 mg 4 mg 02-16 Tashia FINCH disintegrat disintegrat e ing tablet ing tablet losartan losartan 2018- No Ble[place] Unknown Unknown 100 mg 100 mg 02-16- Tashia FINCH tablet tablet e morphine ER morphine ER No [place] Unknown Unknown 60 mg 60 mg - ,[place] tablet,exte tablet,exte nded nded release release magnesium magnesium No Blegen Unknown Unknown 64 mg 64 mg -30 Tashia FINCH (magnesium (magnesium e chloride) chloride) tablet,linda tablet,linda yed release yed release pantoprazol pantoprazol No Blegen Unknown Unknown e 40 mg e 40 mg 5-15 Tashia FINCH tablet,linda tablet,ilnda e yed release yed release metoprolol metoprolol 2018- No Ble[place] Unknown Unknown tartrate 25 tartrate 25 5-15 - Tashia FINCH mg tablet mg tablet e [...] Blegen Unknown Unknown 0.5 mg 0.5 mg 03-31 Tashia FINCH tablet tablet e albuterol albuterol 2018-10- No [place] Unknown Unknown sulfate HFA sulfate HFA 0-03 10- Tashia FINCH 90 90 e mcg/actuati mcg/actuati on aerosol on aerosol inhaler inhaler albuterol albuterol 2018-10 No Blegen Unknown Unknown sulfate HFA sulfate HFA 0-03 Tashia FINCH 90 90 e mcg/actuati mcg/actuati on aerosol on aerosol inhaler inhaler mupirocin 2 mupirocin 2 2018-10 No [place] Unknown Unknown % topical % topical 0-03 MD,Tashia cream cream e metoprolol metoprolol 2018-10- No [place] Unknown Unknown tartrate 25 tartrate 25 0-03 11-21 MD,Tashia mg tablet mg tablet e Spiriva Spiriva 2018-10- No Ble[place] Unknown Unknown Respimat Respimat 0-07 10-21 ,Tashia 2.5 2.5 e mcg/actuati mcg/actuati on solution on solution for for inhalation inhalation spironolact spironolact 2018-10 No Blegen Unknown Unknown one 25 mg one 25 mg 0-21 MD,Tashia tablet tablet e ipratropium ipratropium 2018-10- No [place] Unknown Unknown bromide 17 bromide 17 0-21 12-05 MD,Tashia mcg/actuati mcg/actuati e on HFA on HFA aerosol aerosol inhaler inhaler ipratropium ipratropium 2018-10- No Ble[place] Unknown Unknown bromide 17 bromide 17 0-21 12-05 MD,Tashia mcg/actuati mcg/actuati e on HFA on HFA aerosol aerosol inhaler inhaler metoprolol metoprolol 2018-10 No Blegen Unknown Unknown tartrate 25 tartrate 25 1-21 ,Tashia mg tablet mg tablet e ciprofloxac ciprofloxac 2018-10- Yes Blegen Unknown Unknown in 500 mg in 500 mg 11-18 12-03 ,Tashia tablet tablet e Spiriva Spiriva 2018-10 Yes Blegen Unknown Unknown Respimat Respimat 2-05 ,Tashia 2.5 2.5 e mcg/actuati mcg/actuati on solution on solution for for inhalation inhalation losartan losartan 2018-10 Yes Ble[place] Unknown Unknown 100 mg 100 mg 2-05 ,Tashia tablet tablet e azelastine azelastine Yes Blegen Unknown Unknown 0.05 % eye 0.05 % eye 1-03 ,Tashia drops drops e ketotifen ketotifen Yes Blegen Unknown Unknown 0.025 % 0.025 % 1-03 MD,Tashia (0.035 %) (0.035 %) e eye drops eye drops ciprofloxac ciprofloxac 2019- Yes Blegen Unknown Unknown in 500 mg in 500 mg 10-28 Tashia FINCH tablet tablet e azelastine azelastine Yes Blegen Unknown Unknown 137 mcg 137 mcg 10-30 aTshia FINCH (0.1 %) (0.1 %) e nasal spray nasal spray aerosol aerosol 0.9% normal 0.9% normal Yes Blegen Unknown Unknown saline saline 2-04 Tashia FINCH 1000ml with 1000ml with e 20meq of 20meq of KCL IV to KCL IV to infuse over infuse over 4 hours 1x 4 hours 1x a week via a week via gravity gravity 250cc/hr 250cc/hr Normal Normal Yes Blegen Unknown Unknown Saline Saline 2- Tashia FINCH Flush 0.9 % Flush 0.9 % e injection injection syringe syringe heparin heparin Yes Blegen Unknown Unknown Lock Flush Lock Flush - Tashia FINCH (Porcine) (Porcine) e (PF) 100 (PF) 100 unit/mL unit/mL intravenous intravenous syringe syringe Vital Signs Vital Name Observation Time Observation Value Comments SYSTOLIC mm[Hg] 2019-12-09 18:10:28 92 mm[Hg] mm[Hg] Method: Sit SYSTOLIC mm[Hg] 2018-11-27 18:04:11 142 mm[Hg] mm[Hg] Method: Stand SYSTOLIC mm[Hg] 2019-06-27 18:07:43 122 mm[Hg] mm[Hg] Method: Lie DIASTOLIC mm[Hg] 2019-12-09 18:10:28 64 mm[Hg] mm[Hg] Method: Sit DIASTOLIC mm[Hg] 2018-11-27 18:04:11 84 mm[Hg] mm[Hg] Method: Stand DIASTOLIC mm[Hg] 2019-06-27 18:07:43 50 mm[Hg] mm[Hg] Method: Lie PULSE 2019-12-10 18:10:29 88 /min /min RESP RATE 2019-12-10 18:10:29 16 /min /min Procedures This patient has no known procedures. Results This patient has no known results.
--- OUTSIDE RECORDS SUMMARY | 2019-12-19 17:45 | XMS REPORT ---
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 [id number] asa'carsarmiut asa'carsarmiut coronary coronary artery w/o artery w/o ang pctrs ang pctrs Encounter Encounter Diagnosis Active Mercedez for for 07-07 Ingrahm attention attention [id number] to to gastrostomy gastrostomy Gastro-esop Gastro-esop Diagnosis Active Mercedez hageal hageal 07-07 Ingrahm reflux reflux [id number] disease disease without without esophagitis esophagitis Other Other Diagnosis Active Mercedez specified specified 07-07 Ingrahm arthritis, arthritis, [id number] unspecified unspecified site site Essential Essential Diagnosis Active Mercedez (primary) (primary) 07-07 Ingrahm hypertensio hypertensio [id number] n n intermediate frame tender detention Diagnosis Active Mercedez (current) (current) Ingrahm use of use of [id number] anticoagula anticoagula nts nts Nicotine Nicotine Diagnosis Active Mercedez dependence, dependence, Ingrahm cigarettes, cigarettes, [id number] uncomplicat uncomplicat ed ed Personal Personal Diagnosis Active Mercedez history of history of Ingrahm malignant malignant [id number] neoplasm of neoplasm of breast breast Prsnl hx of Prsnl hx of Diagnosis Active Mercedez TIA (TIA), TIA (TIA), Ingrahm and cereb and cereb [id number] infrc w/o infrc w/o resid resid deficits deficits Pain frequent Pain Mgmt Resolve 2018-11-26 Ana pain d 9 16:15:00 [place] 13:30: [id number] 00 Pain severe pain Pain Mgmt Resolve 2018-11-26 Ana d 9 16:15:00 [place] 13:30: [id number] 00 Endo/Han anti-coagul Endo/Han Resolve 2019-02-06 Ana ation d 07-07 11:15:00 [place] therapy 13:30: [id number] 00 Integument surgical Integument Resolve 2018-08-05 Rea wound d 07-07 13:35:00 Guidelli present 13:30: [id number] 00 Nutrition nutritional Nutrition Resolve 2019-01-02 Ana restriction d 07-07 10:00:00 [facility] s 13:30: [id number] 00 Nutrition changing Nutrition Resolve 2019-01-02 Ana weight/appe d 07-07 10:00:00 [facility] tite 13:30: [id number] 00 Nutrition nutritional Nutrition Resolve 2019-01-02 Ana risk d 07-07 10:00:00 [place] 13:30: [id number] 00 Nutrition enteral Nutrition Resolve 2019-02-06 Ana therapy d 07-07 11:15:00 [place] 13:30: [id number] 00 Safety structural Safety Resolve 2019-02-06 Ana barriers d 07-07 11:15:00 [place] present 13:30: [id number] 00 Safety fall risk Safety Resolve 2019-02-06 Ana factor d 07-07 11:15:00 [place] present 13:30: [id number] 00 Safety risk for Safety Resolve 2019-02-06 Ana hospitaliza d 07-07 11:15:00 [place] tion 13:30: [id number] 00 Medication potential Meds Resolve 2019-02-06 Ana clinically d 07-07 11:15:00 [place] significant 13:30: [id number] medication 00 issue Musculoskel requires Musculoske Resolve 2019-02-06 Ana etal human letal d 07-07 11:15:00 [place] assist to 13:30: [id number] leave home 00 IV IV present IV Resolve 2019-02-06 Rea d 9-30 11:15:00 Lissette [id number] Respiratory dyspnea Respirator Resolve 2017-102019-02-06 Mercedez present y d 0-16 11:15:00 Ingrahm 13:35: [id number] 00 Neuro confusion Neuro/Emot Unknown 2017-10 Mercedez present ion 0-16 Ingrahm 13:35: [id number] 00 Neuro depressive Neuro/Emot Unknown 2017-10 Mercedez feelings ion 0-16 Ingrahm present 13:35: [id number] 00 Safety can be left Safety Resolve 2017-102019-02-06 Mercedez alone for d 0-18 11:15:00 Ingrahm only short 08:10: [id number] periods 00 Integument surgical Integument Resolve 2017-102018-10-30 Shila wound d 1-15 10:10:00 Brian present 08:55: [id number] 00 Elimination GI drain or Eliminatio Resolve 2017-102019-02-06 Shila tube n d 1-15 11:15:00 Brian present 08:55: [id number] 00 Neuro anxiety Neuro/Emot Resolve 2017-102019-02-06 Shila present ion d 1-15 11:15:00 Brian 08:55: [id number] 00 Medication injectable Meds Resolve 2017-102019-02-06 Shila med d 1-15 11:15:00 Brian assistance 08:55: [id number] required 00 Safety fire risk Safety Resolve 2017-102019-02-06 Shila present d 1-15 11:15:00 Brian 13:00: [id number] 00 Elimination urinary Eliminatio Resolve 2019-02-06 Mercedez incontinenc n d - 11:15:00 Ingrahm e 14:20: [id number] 00 Pain frequent Pain Mgmt Resolve 2019-02-06 Mercedez pain d 2-15 11:15:00 Ingrahm 10:15: [id number] 00 Safety risk for Safety Unknown Leanna hospitaliza 02-06 Regeczi tion 15:45: [id number] 00 Respiratory lung sounds Respirator Resolve 2019-04-03 Leanna deficit y d 02-10 10:01:00 Regeczi 13:20: [id number] 00 Respiratory smoker Respirator Resolve 2019-04-03 Leanna y d 4-29 10:01:00 Regeczi 12:10: [id number] 00 Respiratory dyspnea Respirator Resolve 2019-06-05 Mercedez present y d 5-15 10:30:00 Ingrahm 09:00: [id number] 00 Integument surgical Integument Resolve 2019-03-27 Mercedez wound d 5-15 09:15:00 Ingrahm present 09:00: [id number] 00 Nutrition enteral Nutrition Resolve 2019-03-27 Mercedez therapy d -15 09:15:00 Ingrahm 09:00: [id number] 00 Elimination urinary Eliminatio Resolve 2019-04-10 Mercedez incontinenc n d 15 09:30:00 Ingrahm e 09:00: [id number] 00 Neuro confusion Neuro/Emot Resolve 2019-11-25 Mercedez present ion d 15 11:10:00 Ingrahm 09:00: [id number] 00 Neuro anxiety Neuro/Emot Resolve 2019-11-25 Mercedez present ion d 515 11:10:00 Ingrahm 09:00: [id number] 00 Neuro depressive Neuro/Emot Resolve 2019-11-25 Mercedez feelings ion d 15 11:10:00 Ingrahm present 09:00: [id number] 00 Neuro impaired Neuro/Emot Resolve 2019-11-25 Mercedez decision-ma ion d 15 11:10:00 [facility] sonali 09:00: [id number] 00 Activity self-care Activity Resolve 2019-05-20 Mercedez deficit d -15 11:15:00 Ingrahm 09:00: [id number] 00 Safety fall risk Safety Resolve 2019-07-17 Mercedez factor d 5-15 10:35:00 Ingrahm present 09:00: [id number] 00 Safety risk for Safety Resolve 2019-07-17 Mercedez hospitaliza d 5-15 10:35:00 Ingrahm tion 09:00: [id number] 00 Medication potential Meds Resolve 2019-03-27 Mercedez clinically d 5-15 09:15:00 Ingrahm significant 09:00: [id number] medication 00 issue Integument surgical Integument Resolve 2019-05-20 Mercedez wound d 7-12 11:15:00 Ingrahm present 10:00: [id number] 00 Nutrition enteral Nutrition Resolve 2019-06-26 Mercedez therapy d 7-12 10:35:00 Ingrahm 10:00: [id number] 00 Respiratory dyspnea Respirator Resolve 2019-08-07 Leanna present y d 06-26 10:25:00 Regeczi 10:35: [id number] 00 Respiratory smoker Respirator Resolve 2019-07-01 Leanna y d 06-26 10:15:00 Regeczi 10:35: [id number] 00 Endo/Han anti-coagul Endo/Han Resolve 2019-07-23 Leanna ation d 06-26 10:15:00 Regeczi therapy 10:35: [id number] 00 Elimination urinary Eliminatio Resolve 2019-07-23 Leanna incontinenc n d 06-26 10:15:00 Regeczi e 10:35: [id number] 00 Elimination nausea/vomi Eliminatio Resolve 2019-07-01 Leanna serranog n d 06-26 10:15:00 Regeczi 10:35: [id number] 00 Integument surgical Integument Resolve 2019-07-23 Mercedez wound d 9-11 10:15:00 Ingrahm present 10:15: [id number] 00 Nutrition enteral Nutrition Resolve 2019-07-23 Mercedez therapy d 07-01 10:15:00 Ingrahm 10:15: [id number] 00 Respiratory smoker Respirator Resolve 2019-07-16 Leanna y d 07-16 10:05:00 Regeczi 10:05: [id number] 00 Elimination diarrhea Eliminatio Resolve 2019-07-23 Leanna n d 07-17 10:15:00 Regeczi 10:35: [id number] 00 Cardio hypertensio Cardiovasc Resolve 2018-102019-07-30 Leanna olivares 0 10:00:00 Regeczi 10:15: [id number] 00 Safety risk for Safety Resolve 2018-102019-07-23 Leanna hospitaliza d 0-03 10:15:00 Regeczi tion 10:15: [id number] 00 24 Hr Diet knowledge/s NT: 24Hr Resolve 2018-102019-07-23 Wen kill Diet d 0-03 15:00:00 [place] deficit - 15:00: [id number] pt 00 Nutritional eating NT: Resolve 2018-102019-07-23 Wen Barrier difficultie Barriers d 0-03 15:00:00 [place] s present 15:00: [id number] Safety risk for Safety Resolve 2018-102019-08-07 Roseline hospitaliza d 0-04 10:25:00 [place] tion 14:00: [id number] 00 Social financial MURIEL: Active 2018-10 Roseline Services resource Social 0-04 [place] deficit Services 14:00: [id number] 00 Social support MURIEL: Active 2018-10 Roseline Services deficit Social 0-04 [place] Services 14:00: [id number] 00 Social knowledge/s MURIEL: Active 2018-10 Roseline Services kill Social 0-04 [place] deficit - Services 14:00: [id number] pt 00 Social financial MURIEL: Unknown 2018-10 Mercedez Services resource Social 0-10 Ingrahm deficit Services 15:00: [id number] 00 Social knowledge/s MURIEL: Unknown 2018-10 Mer[facility]ez Services kill Social 0-10 Ingrahm deficit - Services 15:00: [id number] pt 00 Respiratory lung sounds Respirator Resolve 2018-102019-08-07 Leanna deficit y d 0-18 10:25:00 Regeczi 10:25: [id number] 00 Respiratory dyspnea Respirator Resolve 2018-102019-10-23 Mercedez present y d 10-28 10:15:00 Ingrahm 11:00: [id number] 00 Integument surgical Integument Resolve 2018-102019-09-11 Mercedez wound d 10-28 09:50:00 Ingrahm present 11:00: [id number] 00 Nutrition enteral Nutrition Resolve 2018-102019-09-11 Mercedez therapy d 10-28 09:50:00 Ingrahm 11:00: [id number] 00 Elimination urinary Eliminatio Resolve 2018-102019-09-11 Mercedez incontinenc n d 10-28 09:50:00 Ingrahm e 11:00: [id number] 00 Safety fall risk Safety Resolve 2018-102019-09-11 Mercedez factor d 10-28 09:50:00 Ingrahm present 11:00: [id number] 00 Safety risk for Safety Resolve 2018-102019-09-23 Mercedez hospitaliza d 10-28 11:10:00 Ingrahm tion 11:00: [id number] 00 Safety risk for Safety Unknown 2018-10 Mercedez hospitaliza 11-24 Ingrahm tion 15:00: [id number] 00 Cardio hypertensio Cardiovasc Resolve 2019-11-25 Leanna n ular d 10-23 11:10:00 Regeczi 10:15: [id number] 00 Elimination urinary Eliminatio Resolve 2019-11-05 Leanna incontinenc n d 10-23 10:23:00 Regeczi e 10:15: [id number] 00 Elimination constipatio Eliminatio Resolve 2019-11-05 Leanna n n d 10-23 10:23:00 Regeczi 10:15: [id number] 00 Integument surgical Integument Resolve 2019-11-19 Mercedez wound d 10-28 10:50:00 Ingrahm present 10:50: [id number] 00 Nutrition enteral Nutrition Resolve 2019-11-25 Mercedez therapy d 10-28 11:10:00 Ingrahm 10:50: [id number] 00 Elimination UTI within Eliminatio Resolve 2019-11-05 Mercedez past 14 n d 10-28 10:23:00 Ingrahm days 10:50: [id number] 00 Activity self-care Activity Resolve 2019-11-05 Mercedez deficit d 10-28 10:23:00 Ingrahm 10:50: [id number] 00 Safety fall risk Safety Resolve 2019-11-05 Mercedez factor d 10-28 10:23:00 Ingrahm present 10:50: [id number] 00 Safety risk for Safety Resolve 2019-11-05 Mercedez hospitaliza d 10-28 10:23:00 Ingrahm tion 10:50: [id number] 00 Safety risk for Safety Active Roseline denis 2-12 Rust tion 11:00: [id number] 00 Allergies, Adverse Reactions, Alerts Allergy Allergy Status Severity Reaction(s) Onset Inactive Treating Comments Name Type Date Date Clinician latex Base Active Unknown Hives Mercedez Ingredient 07-07 Ingrahm [id number] amoxicillin Base Active Unknown Anaphylaxis Mercedez Ingredient 07-07 Ingrahm [id number] bee venom Base Active Unknown Anaphylaxis Mercedez protein Ingredient 07-07 Ingrahm (honey bee) [id number] Botox Medication Active Unknown Anaphylaxis [id number] Unknown Active Unknown Anaphylaxis Mercedez dye 07-07 Ingrm [id number] Penicillins Allergen Active Unknown Anaphylaxis Mer[facility]ez Group 07-07 Ingrm [id number] shellfish Base Active Unknown Anaphylaxis Mercedez derived Ingredient 07-07 [facility] [id number] adhesive Base Active Unknown Hives Mercedez tape Ingredient 07-07 Ingrm [id number] nsaids Unknown Active Unknown stomach issues 2017- Mercedez 07-07 Ingrm [id number] oxycodone Base Active Unknown swelling Mercedez Ingredient 07-07 Ingrm [id number] Betadine Medication Active Unknown Rash 2017- Mercedez Name ID 07-07 Ingr[facility] [id number] Hibiclens Medication Active Unknown Rash Mercedez Name ID 07-07 [facility] [id number] evironmenta Unknown Active Unknown hay fever, 2018 Rea l/seasonal watery eye, 07-07 Guidelli itching, [id number] sneeze, congestion povidone-io Base Active Unknown itching Rea dine Ingredient 07-07 Guidelli [id number] Iodine and Allergen Active Unknown Anaphylaxis Rea Iodide Group 07-07 Guidelli Containing [id number] Products albumin Base Active Unknown Anaphylaxis Rea colloid, Ingredient 07-07 Guidelli human [id number] fentanyl Base Active Unknown hallucinations Rea Ingredient 07-07 Guidelli [id number] Medications Ordered Filled Start Stop Current Ordering [...] EpiPen No Blegen Unknown Unknown 2-Godwin 0.3 2-Godiwn 0.3 07-07 Tashia FINCH mg/0.3 mL mg/0.3 [...] tablet mg tablet e ciprofloxac ciprofloxac 2018-10- No Blegen Unknown Unknown in 500 mg in [...] Unknown Unknown 137 mcg 137 mcg 10-30 Tashia FINCH (0.1 %) (0.1 %) e nasal [...] Observation Time Observation Value Comments SYSTOLIC mm[Hg] 2019-12-17 18:10:36 182 mm[Hg] mm[Hg] Method: Sit SYSTOLIC mm[Hg] 2018-11-27 18:04:11 142 mm[Hg] mm[Hg] Method: Stand SYSTOLIC mm[Hg] 2019-06-27 18:07:43 122 mm[Hg] mm[Hg] Method: Lie DIASTOLIC mm[Hg] 2019-12-17 18:10:36 96 mm[Hg] mm[Hg] Method: Sit DIASTOLIC mm[Hg] 2018-11-27 18:04:11 84 mm[Hg] mm[Hg] Method: Stand DIASTOLIC mm[Hg] 2019-06-27 18:07:43 50 mm[Hg] mm[Hg] Method: Lie PULSE 2019-12-17 18:10:36 69 /min /min RESP RATE 2019-12-17 18:10:36 16 /min /min TEMP 2019-12-17 18:10:36 98.3 [degF] Procedures This patient has no known procedures. Results This patient has no known results.
--- OUTSIDE RECORDS SUMMARY | 2019-12-19 17:46 | XMS REPORT ---
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 w/o ang pctrs ang pctrs Encounter Encounter Diagnosis Active Mer[facility]ez for for 07-07 Ingrahm attention attention [id number] to to gastrostomy gastrostomy Gastro-esop Gastro-esop Diagnosis Active Mercedez hageal hageal 07-07 Ingrahm reflux reflux [id number] disease disease without without esophagitis esophagitis Other Other Diagnosis Active Mercedez specified specified 07-07 Ingrahm arthritis, arthritis, [id number] unspecified unspecified site site Essential Essential Diagnosis Active [facility]ez (primary) (primary) 07-07 Ingrahm hypertensio hypertensio [id number] n n perinatology physician shelter Diagnosis Active [facility] (current) (current) Ingrahm use of use of [id number] anticoagula anticoagula nts nts Nicotine Nicotine Diagnosis Active Mer[facility]ez dependence, dependence, Ingrahm cigarettes, cigarettes, [id number] uncomplicat uncomplicat ed ed Personal Personal Diagnosis Active [facility]ez history of history of Ingrahm malignant malignant [id number] neoplasm of neoplasm of breast breast Prsnl hx of Prsnl hx of Diagnosis Active Mer[facility]ez TIA (TIA), TIA (TIA), Ingrahm and cereb and cereb [id number] infrc w/o infrc w/o resid resid deficits deficits Pain frequent Pain Mgmt Resolve 2018-11-26 Ana pain d 9 16:15:00 [place] 13:30: [id number] 00 Pain severe pain Pain Mgmt Resolve 2018-11-26 Ana d 9 16:15:00 [place] 13:30: [id number] 00 Endo/Han anti-coagul Endo/Han Resolve 2019-02-06 Ana ation d 07-07 11:15:00 [place] therapy 13:30: [id number] 00 Integument surgical Integument Resolve 2018-08-05 Rea wound d 07-07 13:35:00 [place] present 13:30: [id number] 00 Nutrition nutritional Nutrition Resolve 2019-01-02 Ana restriction d 07-07 10:00:00 [place] s 13:30: [id number] 00 Nutrition changing Nutrition Resolve 2019-01-02 Ana weight/appe d 07-07 10:00:00 [place] tite 13:30: [id number] 00 Nutrition nutritional Nutrition Resolve 2019-01-02 Ana risk d 07-07 10:00:00 [place] 13:30: [id number] 00 Nutrition enteral Nutrition Resolve 2019-02-06 Naa therapy d 07-07 11:15:00 [place] 13:30: [id number] 00 Safety structural Safety Resolve 2019-02-06 Ana barriers d 07-07 11:15:00 [place] present 13:30: [id number] 00 Safety fall risk Safety Resolve 2019-02-06 Ana factor d 07-07 11:15:00 [place] present 13:30: [id number] 00 Safety risk for Safety Resolve 2019-02-06 Ana hospitaliza d 07-07 11:15:00 [place] tion 13:30: [id number] 00 Medication potential Meds Resolve 2019-02-06 Ana clinically d 07-07 11:15:00 [place] significant 13:30: [id number] medication 00 issue Musculoskel requires Musculoske Resolve 2019-02-06 Ana etal human letal d 07-07 11:15:00 [place] assist to 13:30: [id number] leave home 00 IV IV present IV Resolve 2019-02-06 Rea d 9-30 11:15:00 [place] [id number] Respiratory dyspnea Respirator Resolve 2017-102019-02-06 [place] present y d 0-16 11:15:00 [place] 13:35: [id number] 00 Neuro confusion Neuro/Emot Unknown 2017-10 [facility] present ion 0-16 [place] 13:35: [id number] 00 Neuro depressive Neuro/Emot Unknown 2017-10 [facility]ez feelings ion 0-16 [place] present 13:35: [id number] 00 Safety can be left Safety Resolve 2017-102019-02-06 Mercedez alone for d 0-18 11:15:00 Ingra[place] only short 08:10: [id number] periods 00 Integument surgical Integument Resolve 2017-102018-10-30 Shila wound d 1-15 10:10:00 Brian present 08:55: [id number] 00 Elimination GI drain or Eliminatio Resolve 2017-102019-02-06 Shila tube n d 1-15 11:15:00 Brian present 08:55: [id number] 00 Neuro anxiety Neuro/Emot Resolve 2017-102019-02-06 Shila present ion d 1-15 11:15:00 Brian 08:55: [id number] 00 Medication injectable Meds Resolve 2017-102019-02-06 Shila med d 1-15 11:15:00 Brian assistance 08:55: [id number] required 00 Safety fire risk Safety Resolve 2017-102019-02-06 Shila present d 1-15 11:15:00 Brian 13:00: [id number] 00 Elimination urinary Eliminatio Resolve 2019-02-06 [facility]ez incontinenc n d - 11:15:00 [place] e 14:20: [id number] 00 Pain frequent Pain Mgmt Resolve 2019-02-06 [facility] pain d 2-15 11:15:00 [place] 10:15: [id number] 00 Safety risk for Safety Unknown Leanna hospitaliza 02-06 [place] tion 15:45: [id number] 00 Respiratory lung sounds Respirator Resolve 2019-04-03 Leanna deficit y d 02-10 10:01:00 Regeczi 13:20: [id number] 00 Respiratory smoker Respirator Resolve 2019-04-03 Leanna y d 4-29 10:01:00 Regeczi 12:10: [id number] 00 Respiratory dyspnea Respirator Resolve 2019-06-05 [facility]ez present y d 5-15 10:30:00 [place] 09:00: [id number] 00 Integument surgical Integument Resolve 2019-03-27 [facility] wound d 5-15 09:15:00 In[place] present 09:00: [id number] 00 Nutrition enteral Nutrition Resolve 2019-03-27 Mer[facility]ez therapy d -15 09:15:00 [place] 09:00: [id number] 00 Elimination urinary Eliminatio Resolve 2019-04-10 Mer[facility]ez incontinenc n d 15 09:30:00 Ingra[place] e 09:00: [id number] 00 Neuro confusion Neuro/Emot Resolve 2019-11-25 [facility] present ion d 15 11:10:00 [place] 09:00: [id number] 00 Neuro anxiety Neuro/Emot Resolve 2019-11-25 Mer[facility]ez present ion d 515 11:10:00 [place] 09:00: [id number] 00 Neuro depressive Neuro/Emot Resolve 2019-11-25 Mer[facility]ez feelings ion d 15 11:10:00 In[place] present 09:00: [id number] 00 Neuro impaired Neuro/Emot Resolve 2019-11-25 [facility]ez decision-ma ion d 15 11:10:00 [facility] sonali 09:00: [id number] 00 Activity self-care Activity Resolve 2019-05-20 [place] deficit d -15 11:15:00 [place] 09:00: [id number] 00 Safety fall risk Safety Resolve 2019-07-17 Mercedez factor d 5-15 10:35:00 Ingra[place] present 09:00: [id number] 00 Safety risk for Safety Resolve 2019-07-17 Mercedez hospitaliza d 5-15 10:35:00 Ingra[place] tion 09:00: [id number] 00 Medication potential Meds Resolve 2019-03-27 Mercedez clinically d 5-15 09:15:00 Ingrahm significant 09:00: [id number] medication 00 issue Integument surgical Integument Resolve 2019-05-20 Mer[facility]ez wound d 7-12 11:15:00 Ingrahm present 10:00: [id number] 00 Nutrition enteral Nutrition Resolve 2019-06-26 Mer[facility]ez therapy d 7-12 10:35:00 [place] 10:00: [id number] 00 Respiratory dyspnea Respirator Resolve 2019-08-07 Leanna present y d 06-26 10:25:00 Regeczi 10:35: [id number] 00 Respiratory smoker Respirator Resolve 2019-07-01 Leanna y d 06-26 10:15:00 Regeczi 10:35: [id number] 00 Endo/Han anti-coagul Endo/Han Resolve 2019-07-23 Leanna ation d 06-26 10:15:00 Regeczi therapy 10:35: [id number] 00 Elimination urinary Eliminatio Resolve 2019-07-23 Leanna incontinenc n d 06-26 10:15:00 Regeczi e 10:35: [id number] 00 Elimination nausea/vomi Eliminatio Resolve 2019-07-01 Leanna serranog n d 06-26 10:15:00 Regeczi 10:35: [id number] 00 Integument surgical Integument Resolve 2019-07-23 [facility] wound d 9-11 10:15:00 Ingra[place] present 10:15: [id number] 00 Nutrition enteral Nutrition Resolve 2019-07-23 [facility] therapy d 07-01 10:15:00 [place] 10:15: [id number] 00 Respiratory smoker Respirator Resolve 2019-07-16 Leanna y d 07-16 10:05:00 Regeczi 10:05: [id number] 00 Elimination diarrhea Eliminatio Resolve 2019-07-23 Leanna n d 07-17 10:15:00 Regeczi 10:35: [id number] 00 Cardio hypertensio Cardiovasc Resolve 2018-102019-07-30 Leanna olivares 0 10:00:00 Rege[place] 10:15: [id number] 00 Safety risk for Safety Resolve 2018-102019-07-23 Leanna hospitaliza d 0-03 10:15:00 Regeczi tion 10:15: [id number] 00 24 Hr Diet knowledge/s NT: 24Hr Resolve 2018-102019-07-23 Wen kill Diet d 0-03 15:00:00 [place] deficit - 15:00: [id number] pt 00 Nutritional eating NT: Resolve 2018-102019-07-23 Wen Barrier difficultie Barriers d 0-03 15:00:00 [place] s present 15:00: [id number] 00 Safety risk for Safety Resolve 2018-102019-08-07 Roseline hospitaliza d 0-04 10:25:00 [place] tion 14:00: [id number] 00 Social financial MURIEL: Active 2018-10 [facility] Services resource Social 0-04 [place] deficit Services 14:00: [id number] 00 Social support MURIEL: Active 2018-10 [facility] Services deficit Social 0-04 [place] Services 14:00: [id number] 00 Social knowledge/s MURIEL: Active 2018-10 [facility] Services kill Social 0-04 [place] deficit - Services 14:00: [id number] pt 00 Social financial MURIEL: Unknown 2018-10 [facility] Services resource Social 0-10 [place] deficit Services 15:00: [id number] 00 Social knowledge/s MURIEL: Unknown 2018-10 [facility] Services kill Social 0-10 In[place] deficit - Services 15:00: [id number] pt 00 Respiratory lung sounds Respirator Resolve 2018-102019-08-07 Leanna deficit y d 0-18 10:25:00 Regeczi 10:25: [id number] 00 Respiratory dyspnea Respirator Resolve 2018-102019-10-23 Mer[facility]ez present y d 10-28 10:15:00 [place] 11:00: [id number] 00 Integument surgical Integument Resolve 2018-102019-09-11 [facility] wound d 10-28 09:50:00 Ingrahm present 11:00: [id number] 00 Nutrition enteral Nutrition Resolve 2018-102019-09-11 Mer[facility]ez therapy d 10-28 09:50:00 [place] 11:00: [id number] 00 Elimination urinary Eliminatio Resolve 2018-102019-09-11 Mer[facility]ez incontinenc n d 10-28 09:50:00 Ingrahm e 11:00: [id number] 00 Safety fall risk Safety Resolve 2018-102019-09-11 Mer[facility]ez factor d 10-28 09:50:00 Ingra[place] present 11:00: [id number] 00 Safety risk for Safety Resolve 2018-102019-09-23 Mercedez hospitaliza d 10-28 11:10:00 Ingrahm tion 11:00: [id number] 00 Safety risk for Safety Unknown 2018-10 Mercedez hospitaliza 11-24 Ingrahm tion 15:00: [id number] 00 Cardio hypertensio Cardiovasc Resolve 2019-11-25 Leanna n ular d 10-23 11:10:00 Rege[place]zi 10:15: [id number] 00 Elimination urinary Eliminatio Resolve 2019-11-05 Leanna incontinenc n d 10-23 10:23:00 Regeczi e 10:15: [id number] 00 Elimination constipatio Eliminatio Resolve 2019-11-05 Leanna n n d 10-23 10:23:00 Re[place] 10:15: [id number] 00 Integument surgical Integument Resolve 2019-11-19 [facility] wound d 10-28 10:50:00 Ingra[place] present 10:50: [id number] 00 Nutrition enteral Nutrition Resolve 2019-11-25 Mer[facility]ez therapy d 10-28 11:10:00 [place] 10:50: [id number] 00 Elimination UTI within Eliminatio Resolve 2019-11-05 Mercedez past 14 n d 10-28 10:23:00 Ingrahm days 10:50: [id number] 00 Activity self-care Activity Resolve 2019-11-05 [place] deficit d 10-28 10:23:00 [place] 10:50: [id number] 00 Safety fall risk Safety Resolve 2019-11-05 Mercedez factor d 10-28 10:23:00 Ingrahm present 10:50: [id number] 00 Safety risk for Safety Resolve 2019-11-05 Mercedez hospitaliza d 10-28 10:23:00 Ingrahm tion 10:50: [id number] 00 Safety risk for Safety Active Roseline denis 2-12 [facility] tion 11:00: [id number] 00 Allergies, Adverse Reactions, Alerts Allergy Allergy Status Severity Reaction(s) Onset Inactive Treating Comments Name Type Date Date Clinician latex Base Active Unknown Hives [facility] Ingredient 07-07 Ingrahm [id number] amoxicillin Base Active Unknown Anaphylaxis [facility] Ingredient 07-07 Ingrahm [id number] bee venom Base Active Unknown Anaphylaxis Mer[facility] protein Ingredient 07-07 Ingrahm (honey bee) [id number] Botox Medication Active Unknown Anaphylaxis [id number] contrast Unknown Active Unknown Anaphylaxis Mercedez dye 07-07 Ingrm [id number] Penicillins Allergen Active Unknown Anaphylaxis [facility] Group 07-07 Ingrm [id number] shellfish Base Active Unknown Anaphylaxis Mer[facility]ez derived Ingredient 07-07 [facility] [id number] adhesive Base Active Unknown Hives Mer[facility]ez tape Ingredient 07-07 Ingrm [id number] nsaids Unknown Active Unknown stomach issues 2017- Mercedez 07-07 Ingrm [id number] oxycodone Base Active Unknown swelling Mercedez Ingredient 07-07 Ingrm [id number] Betadine Medication Active Unknown Rash 2017- [id number] Hibiclens Medication Active Unknown Rash Mercedez Name ID 07-07 [facility] [id number] evironmenta Unknown Active Unknown hay fever, 2018 Rea l/seasonal watery eye, 07-07 Guidelli itching, [id number] sneeze, congestion povidone-io Base Active Unknown itching Rea dine Ingredient 07-07 Guidelli [id number] Iodine and Allergen Active Unknown Anaphylaxis Rea Iodide Group 07-07 Guid[place] Containing [id number] Products albumin Base Active Unknown Anaphylaxis Rea colloid, Ingredient 07-07 Guidelli human [id number] fentanyl Base Active Unknown hallucinations Rea Ingredient 07-07 [place] [id number] Medications Ordered Filled Start Stop Current Ordering [...] No Blegen Unknown Unknown saline saline 07-20 aTshia FINCH 1000ml with 1000ml with e 20meq [...] Unknown 30 mg 30 mg 10-26 Tashia IFNCH tablet,exte tablet,exte e nded nded release release [...] Unknown Unknown 10 mg 10 mg 10-26 ,Tsahia tablet tablet e clopidogrel clopidogrel No Blegen [...] normal Yes Blegen Unknown Unknown saline saline 2- Tashia FINCH 1000ml with 1000ml with e [...]
--- OUTSIDE RECORDS SUMMARY | 2019-12-19 17:46 | XMS REPORT ---
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 w/o ang pctrs ang pctrs Encounter Encounter Diagnosis Active [facility]ez for for 07-07 [facility] attention attention [id number] to to gastrostomy gastrostomy Gastro-esop Gastro-esop Diagnosis Active Mercedez hageal hageal 07-07 In[facility] reflux reflux [id number] disease disease without without esophagitis esophagitis Other Other Diagnosis Active Mer[facility]ez specified specified 07-07 In[facility] arthritis, arthritis, [id number] unspecified unspecified site site Essential Essential Diagnosis Active [facility]ez (primary) (primary) 07-07 [facility] hypertensio hypertensio [id number] 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[facility]ez (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) (current) Ingrahm use of use of [id number] anticoagula anticoagula nts nts Nicotine Nicotine Diagnosis Active [facility]ez dependence, dependence, In[place] cigarettes, cigarettes, [id number] uncomplicat uncomplicat ed ed Personal Personal Diagnosis Active [facility]ez history of history of [place] malignant malignant [id number] neoplasm of neoplasm of breast breast Prsnl hx of Prsnl hx of Diagnosis Active Mer[facility]ez TIA (TIA), TIA (TIA), Ingrahm and cereb and cereb [id number] infrc w/o infrc w/o resid resid deficits deficits Pain frequent Pain Mgmt Resolve 2018-11-26 Ana pain d 9 16:15:00 [place] 13:30: [id number] 00 Pain severe pain Pain Mgmt Resolve 2018-11-26 Ana d 9 16:15:00 [place] 13:30: [id number] 00 Endo/Han anti-coagul Endo/Han Resolve 2019-02-06 Ana ation d 07-07 11:15:00 [place] therapy 13:30: [id number] 00 Integument surgical Integument Resolve 2018-08-05 Rea wound d 07-07 13:35:00 [place] present 13:30: [id number] 00 Nutrition nutritional Nutrition Resolve 2019-01-02 Ana restriction d 07-07 10:00:00 [place] s 13:30: [id number] 00 Nutrition changing Nutrition Resolve 2019-01-02 Ana weight/appe d 07-07 10:00:00 [place] tite 13:30: [id number] 00 Nutrition nutritional Nutrition Resolve 2019-01-02 Ana risk d 07-07 10:00:00 [place] 13:30: [id number] 00 Nutrition enteral Nutrition Resolve 2019-02-06 Ana therapy d 07-07 11:15:00 [place] 13:30: [id number] 00 Safety structural Safety Resolve 2019-02-06 Ana barriers d 07-07 11:15:00 [place] present 13:30: [id number] 00 Safety fall risk Safety Resolve 2019-02-06 Ana factor d 07-07 11:15:00 [place] present 13:30: [id number] 00 Safety risk for Safety Resolve 2019-02-06 Ana hospitaliza d 07-07 11:15:00 [place] tion 13:30: [id number] 00 Medication potential Meds Resolve 2019-02-06 Ana clinically d 07-07 11:15:00 [place] significant 13:30: [id number] medication 00 issue Musculoskel requires Musculoske Resolve 2019-02-06 Ana etal human letal d 07-07 11:15:00 [place] assist to 13:30: [id number] leave home 00 IV IV present IV Resolve 2019-02-06 Rea d 9-30 11:15:00 [place] [id number] Respiratory dyspnea Respirator Resolve 2017-102019-02-06 [facility] present y d 0-16 11:15:00 [place] 13:35: [id number] 00 Neuro confusion Neuro/Emot Active 2017-10 [facility] present ion 0-16 [place] 13:35: [id number] 00 Neuro depressive Neuro/Emot Active 2017-10 [facility] feelings ion 0-16 [place] present 13:35: [id number] 00 Safety can be left Safety Resolve 2017-102019-02-06 Mercedez alone for d 0-18 11:15:00 [place] only short 08:10: [id number] periods 00 Integument surgical Integument Resolve 2017-102018-10-30 Shila wound d 1-15 10:10:00 Brian present 08:55: [id number] 00 Elimination GI drain or Eliminatio Resolve 2017-102019-02-06 Shila tube n d 1-15 11:15:00 Brian present 08:55: [id number] 00 Neuro anxiety Neuro/Emot Resolve 2017-102019-02-06 Shila present ion d 1-15 11:15:00 Brian 08:55: [id number] 00 Medication injectable Meds Resolve 2017-102019-02-06 Shila med d 1-15 11:15:00 Brian assistance 08:55: [id number] required 00 Safety fire risk Safety Resolve 2017-102019-02-06 Shila present d 1-15 11:15:00 Brian 13:00: [id number] 00 Elimination urinary Eliminatio Resolve 2019-02-06 [facility] incontinenc n d - 11:15:00 [place] e 14:20: [id number] 00 Pain frequent Pain Mgmt Resolve 2019-02-06 [facility] pain d 2-15 11:15:00 [place] 10:15: [id number] 00 Safety risk for Safety Unknown Leanna hospitaliza 02-06 [place] tion 15:45: [id number] 00 Respiratory lung sounds Respirator Resolve 2019-04-03 Leanna deficit y d 02-10 10:01:00 Re[place] 13:20: [id number] 00 Respiratory smoker Respirator Resolve 2019-04-03 Leanna y d 4-29 10:01:00 Rege[facility]zi 12:10: [id number] 00 Respiratory dyspnea Respirator Resolve 2019-06-05 [facility]ez present y d 5-15 10:30:00 [place] 09:00: [id number] 00 Integument surgical Integument Resolve 2019-03-27 [facility] wound d 5-15 09:15:00 [place] present 09:00: [id number] 00 Nutrition enteral Nutrition Resolve 2019-03-27 Mer[facility]ez therapy d -15 09:15:00 [place] 09:00: [id number] 00 Elimination urinary Eliminatio Resolve 2019-04-10 Mer[facility]ez incontinenc n d 15 09:30:00 Ingra[place] e 09:00: [id number] 00 Neuro confusion Neuro/Emot Resolve 2019-11-25 [facility]ez present ion d 15 11:10:00 [place] 09:00: [id number] 00 Neuro anxiety Neuro/Emot Resolve 2019-11-25 [facility]ez present ion d 515 11:10:00 [place] 09:00: [id number] 00 Neuro depressive Neuro/Emot Resolve 2019-11-25 Mer[facility]ez feelings ion d 15 11:10:00 [place] present 09:00: [id number] 00 Neuro impaired Neuro/Emot Resolve 2019-11-25 Mer[facility] decision-ma ion d 15 11:10:00 [facility] sonali 09:00: [id number] 00 Activity self-care Activity Resolve 2019-05-20 [facility] deficit d -15 11:15:00 [place] 09:00: [id number] 00 Safety fall risk Safety Resolve 2019-07-17 Mer[facility]ez factor d 5-15 10:35:00 [place] present 09:00: [id number] 00 Safety risk for Safety Resolve 2019-07-17 Mercedez hospitaliza d 5-15 10:35:00 [place] tion 09:00: [id number] 00 Medication potential Meds Resolve 2019-03-27 Mercedez clinically d 5-15 09:15:00 [place] significant 09:00: [id number] medication 00 issue Integument surgical Integument Resolve 2019-05-20 [facility]ez wound d 7-12 11:15:00 [place] present 10:00: [id number] 00 Nutrition enteral Nutrition Resolve 2019-06-26 Mer[facility]ez therapy d 7-12 10:35:00 [place] 10:00: [id number] 00 Respiratory dyspnea Respirator Resolve 2019-08-07 Leanna present y d 06-26 10:25:00 Regeczi 10:35: [id number] 00 Respiratory smoker Respirator Resolve 2019-07-01 Leanna y d 06-26 10:15:00 Regeczi 10:35: [id number] 00 Endo/Han anti-coagul Endo/Han Resolve 2019-07-23 Leanna ation d 06-26 10:15:00 Regeczi therapy 10:35: [id number] 00 Elimination urinary Eliminatio Resolve 2019-07-23 Leanna incontinenc n d 06-26 10:15:00 Regeczi e 10:35: [id number] 00 Elimination nausea/vomi Eliminatio Resolve 2019-07-01 Leanna serranog n d 06-26 10:15:00 Regeczi 10:35: [id number] 00 Integument surgical Integument Resolve 2019-07-23 [facility] wound d 9-11 10:15:00 [place] present 10:15: [id number] 00 Nutrition enteral Nutrition Resolve 2019-07-23 [facility] therapy d 07-01 10:15:00 [place] 10:15: [id number] 00 Respiratory smoker Respirator Resolve 2019-07-16 Leanna y d 07-16 10:05:00 Rege[place]zi 10:05: [id number] 00 Elimination diarrhea Eliminatio Resolve 2019-07-23 Leanna n d 07-17 10:15:00 Rege[place] 10:35: [id number] 00 Cardio hypertensio Cardiovasc Resolve 2018-102019-07-30 Leanna olivares 0 10:00:00 Re[place] 10:15: [id number] 00 Safety risk for Safety Resolve 2018-102019-07-23 Leanna hospitaliza d 0-03 10:15:00 Regeczi tion 10:15: [id number] 00 24 Hr Diet knowledge/s NT: 24Hr Resolve 2018-102019-07-23 Wen kill Diet d 0-03 15:00:00 [place] deficit - 15:00: [id number] pt 00 Nutritional eating NT: Resolve 2018-102019-07-23 Wen Barrier difficultie Barriers d 0-03 15:00:00 [place] s present 15:00: [id number] 00 Safety risk for Safety Resolve 2018-102019-08-07 [place] hospitaliza d 0-04 10:25:00 [place] tion 14:00: [id number] 00 Social financial MURIEL: Active 2018-10 [facility] resource Social 0-04 [place] deficit Services 14:00: [id number] 00 Social support MURIEL: Active 2018-10 [facility] deficit Social 0-04 [place] [facility] 14:00: [id number] 00 Social knowledge/s MURIEL: Active 2018-10 [facility] kill Social 0-04 [place] deficit - Services 14:00: [id number] pt 00 Social financial MURIEL: Unknown 2018-10 [facility] Services resource Social 0-10 [facility] deficit Services 15:00: [id number] 00 Social knowledge/s MURIEL: Unknown 2018-10 [facility] Services kill Social 0-10 [facility] deficit - Services 15:00: [id number] pt 00 Respiratory lung sounds Respirator Resolve 2018-102019-08-07 Leanna deficit y d 0-18 10:25:00 Regeczi 10:25: [id number] 00 Respiratory dyspnea Respirator Resolve 2018-102019-10-23 [facility]ez present y d 10-28 10:15:00 [place] 11:00: [id number] 00 Integument surgical Integument Resolve 2018-102019-09-11 [facility] wound d 10-28 09:50:00 [place] present 11:00: [id number] 00 Nutrition enteral Nutrition Resolve 2018-102019-09-11 [facility]ez therapy d 10-28 09:50:00 [place] 11:00: [id number] 00 Elimination urinary Eliminatio Resolve 2018-102019-09-11 [facility] incontinenc n d 10-28 09:50:00 Ingra[place] e 11:00: [id number] 00 Safety fall risk Safety Resolve 2018-102019-09-11 Mer[facility]ez factor d 10-28 09:50:00 [place] present 11:00: [id number] 00 Safety risk for Safety Resolve 2018-102019-09-23 Mer[facility] hospitaliza d 10-28 11:10:00 Ingra[place] tion 11:00: [id number] 00 Safety risk for Safety Unknown 2018-10 Mercedez hospitaliza 11-24 Ingrahm tion 15:00: [id number] 00 Cardio hypertensio Cardiovasc Resolve 2019-11-25 Leanna n ular d 10-23 11:10:00 Rege[place]zi 10:15: [id number] 00 Elimination urinary Eliminatio Resolve 2019-11-05 Leanna incontinenc n d 10-23 10:23:00 Regeczi e 10:15: [id number] 00 Elimination constipatio Eliminatio Resolve 2019-11-05 Leanna n n d 10-23 10:23:00 Re[place] 10:15: [id number] 00 Integument surgical Integument Resolve 2019-11-19 [facility] wound d 10-28 10:50:00 [place] present 10:50: [id number] 00 Nutrition enteral Nutrition Resolve 2019-11-25 [facility]ez therapy d 10-28 11:10:00 [place] 10:50: [id number] 00 Elimination UTI within Eliminatio Resolve 2019-11-05 Mercedez past 14 n d 10-28 10:23:00 Ingrahm days 10:50: [id number] 00 Activity self-care Activity Resolve 2019-11-05 [facility] deficit d 10-28 10:23:00 [place] 10:50: [id number] 00 Safety fall risk Safety Resolve 2019-11-05 Mercedez factor d 10-28 10:23:00 Ingra[place] present 10:50: [id number] 00 Safety risk for Safety Resolve 2019-11-05 Mercedez hospitaliza d 10-28 10:23:00 Ingra[place] tion 10:50: [id number] 00 Allergies, Adverse Reactions, Alerts Allergy Allergy Status Severity Reaction(s) Onset Inactive Treating Comments Name Type Date Date Clinician latex Base Active Unknown Hives [facility] [id number] amoxicillin Base Active Unknown Anaphylaxis [facility] [id number] bee venom Base Active Unknown Anaphylaxis [facility] [id number] Botox Medication Active Unknown Anaphylaxis [facility]ez Name ID 07-07 [facility] [id number] contrast Unknown Active Unknown Anaphylaxis Mer[facility]ez dye 07-07 [facility] [id number] Penicillins Allergen Active Unknown Anaphylaxis [facility] Group 07-07 [facility] [id number] shellfish Base Active Unknown Anaphylaxis [facility] derived Ingredient 07-07 [facility] [id number] adhesive Base Active Unknown Hives [facility] tape Ingredient 07-07 [facility] [id number] nsaids Unknown Active Unknown stomach issues Mer[facility]ez 07-07 [facility] [id number] oxycodone Base Active Unknown swelling Mer[facility]ez Ingredient 07-07 [facility] [id number] Betadine Medication Active Unknown Rash [facility]ez Name ID 07-07 [facility] [id number] Hibiclens Medication Active Unknown Rash [facility]ez Name ID 07-07 [facility] [id number] evironmenta Unknown Active Unknown hay fever, Rea l/seasonal watery eye, 07-07 [facility] itching, [id number] sneeze, congestion povidone-io Base Active Unknown itching Rea dine Ingredient 07-07 [facility] [id number] Iodine and Allergen Active Unknown Anaphylaxis Rea Iodide Group 07-07 [facility] Containing [id number] Products albumin Base Active Unknown Anaphylaxis Rea colloid, Ingredient 07-07 [facility] human [id number] fentanyl Base Active Unknown hallucinations Rea Ingredient 07-07 [facility] [id number] Medications Ordered Filled Start Stop Current Ordering [...] No Blegen Unknown Unknown saline saline 07-20 02 Tashia FINCH 1000ml with 1000ml with e [...] MINE 50 mg MINE 50 mg 07-07 Tasiha FINCH capsule capsule e famotidine famotidine 2017- [...] Blegen Unknown Unknown 30 mg 30 mg 10-26-24 Tashia FINCH tablet,exte tablet,exte e nded nded release release HYDROmorpho HYDROmorpho No [place] Unknown Unknown ne 4 mg ne 4 mg 3-05 ,Douglas tablet tablet diphenhydrA diphenhydrA 2018- No Blegen Unknown Unknown MINE 50 mg MINE 50 mg 10-26- ,Tashia capsule capsule e ondansetron ondansetron 2018- No [place] Unknown Unknown 4 mg 4 mg 02-06- Tashia FINCH disintegrat disintegrat e ing tablet ing tablet metoprolol metoprolol 2018- No [place] Unknown Unknown tartrate 50 tartrate 50 04-23-15 Tashia FINCH mg tablet mg tablet e [...] Blegen Unknown Unknown 100 mg 100 mg 02-16 11-21 Tashia FINCH tablet tablet e morphine ER morphine ER No [place] Unknown Unknown 60 mg 60 mg 4-24 [place] FINCH tablet,exte tablet,exte nded nded release release magnesium [...] 1 mg tablet 1 mg tablet 03-26 06- Tashia FINCH mupirocin 2 mupirocin 2 2018- [...] Blegen Unknown Unknown Respimat Respimat 0-07 10-21 MD,Tashia 2.5 2.5 e mcg/actuati mcg/actuati on solution [...] in 500 mg in 500 mg 11-18 12- ,Tashia tablet tablet e Spiriva Spiriva 2018-10 Yes [place] Unknown Unknown Respimat Respimat 2-05 ,Tashia 2.5 2.5 e mcg/actuati mcg/actuati on solution on solution for for inhalation inhalation losartan losartan 2018-10 Yes [place] Unknown Unknown 100 mg 100 mg 2-05 ,Tashia tablet tablet e azelastine azelastine Yes [place] Unknown Unknown 0.05 % eye 0.05 % eye - ,Tashia drops drops e ketotifen ketotifen Yes [place] Unknown Unknown 0.025 % 0.025 % - ,Tashia (0.035 %) (0.035 %) e eye drops eye drops ciprofloxac ciprofloxac 2019- Yes [place] Unknown Unknown in 500 mg in 500 mg 10-28- ,Tashia tablet tablet e azelastine azelastine Yes Ble[place] Unknown Unknown 137 mcg 137 mcg 1-10 Tashia FINCH (0.1 %) (0.1 %) e [...] Normal Yes [place] Unknown Unknown Saline Saline 2-04 Tashia FINCH Flush 0.9 % Flush 0.9 % e injection injection syringe syringe heparin heparin Yes [place] Unknown Unknown Lock Flush Lock Flush 2-04 Tashia FINCH (Porcine) (Porcine) e (PF) 100 (PF) 100 unit/mL unit/mL intravenous intravenous syringe syringe Vital Signs Vital Name Observation Time Observation Value Comments SYSTOLIC mm[Hg] 2019-11-25 18:10:14 158 mm[Hg] mm[Hg] Method: Sit SYSTOLIC mm[Hg] 2018-11-27 18:04:11 142 mm[Hg] mm[Hg] Method: Stand SYSTOLIC mm[Hg] 2019-06-27 18:07:43 122 mm[Hg] mm[Hg] Method: Lie DIASTOLIC mm[Hg] 2019-11-25 18:10:14 90 mm[Hg] mm[Hg] Method: Sit DIASTOLIC mm[Hg] 2018-11-27 18:04:11 84 mm[Hg] mm[Hg] Method: Stand DIASTOLIC mm[Hg] 2019-06-27 18:07:43 50 mm[Hg] mm[Hg] Method: Lie PULSE 2019-11-25 18:10:14 72 /min /min RESP RATE 2019-11-25 18:10:14 16 /min /min TEMP 2019-11-25 18:10:14 97.9 [degF] Procedures This patient has no known procedures. Results This patient has no known results.
--- OUTSIDE RECORDS SUMMARY | 2019-12-19 17:46 | XMS REPORT ---
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 gambell gambell coronary coronary artery w/o artery w/o ang pctrs ang pctrs Encounter Encounter Diagnosis Active [facility]ez for for 07-07 Ingrahm attention attention [id number] to to gastrostomy gastrostomy Gastro-esop Gastro-esop Diagnosis Active Mercedez hageal hageal 07-07 Ingrahm reflux reflux [id number] disease disease without without esophagitis esophagitis Other Other Diagnosis Active Mercedez specified specified 07-07 Ingrahm arthritis, arthritis, [id number] unspecified unspecified site site Essential Essential Diagnosis Active [facility]ez (primary) (primary) 07-07 Ingrahm hypertensio hypertensio [id number] n n long term long-term Diagnosis Active [facility]ez (current) (current) Ingrahm use of use of [id number] anticoagula anticoagula nts nts Nicotine Nicotine Diagnosis Active Mer[facility]ez dependence, dependence, Ingrahm cigarettes, cigarettes, [id number] uncomplicat uncomplicat ed ed Personal Personal Diagnosis Active [facility]ez history of history of Ingrahm malignant malignant [id number] neoplasm of neoplasm of breast breast Prsnl hx of Prsnl hx of Diagnosis Active Mer[facility]ez TIA (TIA), TIA (TIA), Ingrahm and cereb and cereb [id number] infrc w/o infrc w/o resid resid deficits deficits Pain frequent Pain Mgmt Resolve 2018-11-26 Ana pain d 9 16:15:00 [place] 13:30: [id number] 00 Pain severe pain Pain Mgmt Resolve 2018-11-26 Ana d 9 16:15:00 [place] 13:30: [id number] 00 Endo/Han anti-coagul Endo/Han Resolve 2019-02-06 Ana ation d 07-07 11:15:00 [place] therapy 13:30: [id number] 00 Integument surgical Integument Resolve 2018-08-05 Rea wound d 07-07 13:35:00 [place] present 13:30: [id number] 00 Nutrition nutritional Nutrition Resolve 2019-01-02 Ana restriction d 07-07 10:00:00 [place] s 13:30: [id number] 00 Nutrition changing Nutrition Resolve 2019-01-02 Ana weight/appe d 07-07 10:00:00 [place] tite 13:30: [id number] 00 Nutrition nutritional Nutrition Resolve 2019-01-02 Ana risk d 07-07 10:00:00 [place] 13:30: [id number] 00 Nutrition enteral Nutrition Resolve 2019-02-06 Ana therapy d 07-07 11:15:00 [place] 13:30: [id number] 00 Safety structural Safety Resolve 2019-02-06 Ana barriers d 07-07 11:15:00 [place] present 13:30: [id number] 00 Safety fall risk Safety Resolve 2019-02-06 Ana factor d 07-07 11:15:00 [place] present 13:30: [id number] 00 Safety risk for Safety Resolve 2019-02-06 Ana hospitaliza d 07-07 11:15:00 [place] tion 13:30: [id number] 00 Medication potential Meds Resolve 2019-02-06 Ana clinically d 07-07 11:15:00 [place] significant 13:30: [id number] medication 00 issue Musculoskel requires Musculoske Resolve 2019-02-06 Ana etal human letal d 07-07 11:15:00 [place] assist to 13:30: [id number] leave home 00 IV IV present IV Resolve 2019-02-06 Rea d 9-30 11:15:00 [place] [id number] Respiratory dyspnea Respirator Resolve 2017-102019-02-06 [place] present y d 0-16 11:15:00 [place] 13:35: [id number] 00 Neuro confusion Neuro/Emot Unknown 2017-10 [facility] present ion 0-16 [place] 13:35: [id number] 00 Neuro depressive Neuro/Emot Unknown 2017-10 [facility] feelings ion 0-16 [place] present 13:35: [id number] 00 Safety can be left Safety Resolve 2017-102019-02-06 Mercedez alone for d 0-18 11:15:00 [place] only short 08:10: [id number] periods 00 Integument surgical Integument Resolve 2017-102018-10-30 Shila wound d 1-15 10:10:00 Brian present 08:55: [id number] 00 Elimination GI drain or Eliminatio Resolve 2017-102019-02-06 Shila tube n d 1-15 11:15:00 Brian present 08:55: [id number] 00 Neuro anxiety Neuro/Emot Resolve 2017-102019-02-06 Shila present ion d 1-15 11:15:00 Brian 08:55: [id number] 00 Medication injectable Meds Resolve 2017-102019-02-06 Shila med d 1-15 11:15:00 Brian assistance 08:55: [id number] required 00 Safety fire risk Safety Resolve 2017-102019-02-06 Shila present d 1-15 11:15:00 Brian 13:00: [id number] 00 Elimination urinary Eliminatio Resolve 2019-02-06 [facility] incontinenc n d - 11:15:00 [place] e 14:20: [id number] 00 Pain frequent Pain Mgmt Resolve 2019-02-06 [facility] pain d 2-15 11:15:00 [place] 10:15: [id number] 00 Safety risk for Safety Unknown Leanna hospitaliza 02-06 [place] tion 15:45: [id number] 00 Respiratory lung sounds Respirator Resolve 2019-04-03 Leanna deficit y d 02-10 10:01:00 [place] 13:20: [id number] 00 Respiratory smoker Respirator Resolve 2019-04-03 Leanna y d 4-29 10:01:00 [place] 12:10: [id number] 00 Respiratory dyspnea Respirator Resolve 2019-06-05 [facility] present y d 5-15 10:30:00 [place] 09:00: [id number] 00 Integument surgical Integument Resolve 2019-03-27 [facility] wound d 5-15 09:15:00 [place] present 09:00: [id number] 00 Nutrition enteral Nutrition Resolve 2019-03-27 [facility] therapy d -15 09:15:00 [place] 09:00: [id number] 00 Elimination urinary Eliminatio Resolve 2019-04-10 [facility]ez incontinenc n d 15 09:30:00 Ingra[place] e 09:00: [id number] 00 Neuro confusion Neuro/Emot Resolve 2019-11-25 [facility] present ion d 15 11:10:00 [place] 09:00: [id number] 00 Neuro anxiety Neuro/Emot Resolve 2019-11-25 [facility] present ion d 515 11:10:00 [place] 09:00: [id number] 00 Neuro depressive Neuro/Emot Resolve 2019-11-25 [facility] feelings ion d 15 11:10:00 [place] present 09:00: [id number] 00 Neuro impaired Neuro/Emot Resolve 2019-11-25 [facility] decision-ma ion d 15 11:10:00 [facility] sonali 09:00: [id number] 00 Activity self-care Activity Resolve 2019-05-20 [place] deficit d -15 11:15:00 [place] 09:00: [id number] 00 Safety fall risk Safety Resolve 2019-07-17 [facility]ez factor d 5-15 10:35:00 In[place] present 09:00: [id number] 00 Safety risk for Safety Resolve 2019-07-17 Mer[facility]ez hospitaliza d 5-15 10:35:00 Ingra[place] tion 09:00: [id number] 00 Medication potential Meds Resolve 2019-03-27 Mercedez clinically d 5-15 09:15:00 Ingra[place] significant 09:00: [id number] medication 00 issue Integument surgical Integument Resolve 2019-05-20 [facility] wound d 7-12 11:15:00 In[place] present 10:00: [id number] 00 Nutrition enteral Nutrition Resolve 2019-06-26 [facility] therapy d 7-12 10:35:00 [place] 10:00: [id number] 00 Respiratory dyspnea Respirator Resolve 2019-08-07 Leanna present y d 06-26 10:25:00 Rege[place] 10:35: [id number] 00 Respiratory smoker Respirator Resolve 2019-07-01 Leanna y d 06-26 10:15:00 [place] 10:35: [id number] 00 Endo/Han anti-coagul Endo/Han Resolve 2019-07-23 Leanna ation d 06-26 10:15:00 Rege[place] therapy 10:35: [id number] 00 Elimination urinary Eliminatio Resolve 2019-07-23 Leanna incontinenc n d 06-26 10:15:00 Regeczi e 10:35: [id number] 00 Elimination nausea/vomi Eliminatio Resolve 2019-07-01 Leanna serranog n d 06-26 10:15:00 [place] 10:35: [id number] 00 Integument surgical Integument Resolve 2019-07-23 [facility] wound d 9-11 10:15:00 [place] present 10:15: [id number] 00 Nutrition enteral Nutrition Resolve 2019-07-23 [facility] therapy d 07-01 10:15:00 [place] 10:15: [id number] 00 Respiratory smoker Respirator Resolve 2019-07-16 Leanna y d 07-16 10:05:00 [place] 10:05: [id number] 00 Elimination diarrhea Eliminatio Resolve 2019-07-23 Leanna n d 07-17 10:15:00 [place] 10:35: [id number] 00 Cardio hypertensio Cardiovasc Resolve 2018-102019-07-30 Leanna olivares 0 10:00:00 [place] 10:15: [id number] 00 Safety risk for Safety Resolve 2018-102019-07-23 Leanna hospitaliza d 0-03 10:15:00 [place] tion 10:15: [id number] 00 24 Hr Diet knowledge/s NT: 24Hr Resolve 2018-102019-07-23 Wen kill Diet d 0-03 15:00:00 [place] deficit - 15:00: [id number] pt 00 Nutritional eating NT: Resolve 2018-102019-07-23 Wen Barrier difficultie Barriers d 0-03 15:00:00 [place] s present 15:00: [id number] Safety risk for Safety Resolve 2018-102019-08-07 Roseline hospitaliza d 0-04 10:25:00 [place] tion 14:00: [id number] 00 Social financial MURIEL: Active 2018-10 [facility] Services resource Social 0-04 [place] deficit Services 14:00: [id number] 00 Social support MURIEL: Active 2018-10 [facility] deficit Social 0-04 [place] Services 14:00: [id number] 00 Social knowledge/s MURIEL: Active 2018-10 [facility] Services kill Social 0-04 [place] deficit - Services 14:00: [id number] pt 00 Social financial MURIEL: Unknown 2018-10 [facility] Services resource Social 0-10 [place] deficit Services 15:00: [id number] 00 Social knowledge/s MURIEL: Unknown 2018-10 [facility] Services kill Social 0-10 [place] deficit - Services 15:00: [id number] pt 00 Respiratory lung sounds Respirator Resolve 2018-102019-08-07 Leanna deficit y d 0-18 10:25:00 [place] 10:25: [id number] 00 Respiratory dyspnea Respirator Resolve 2018-102019-10-23 [place] present y d 10-28 10:15:00 [place] 11:00: [id number] 00 Integument surgical Integument Resolve 2018-102019-09-11 [facility] wound d 10-28 09:50:00 In[place] present 11:00: [id number] 00 Nutrition enteral Nutrition Resolve 2018-102019-09-11 [facility] therapy d 10-28 09:50:00 [place] 11:00: [id number] 00 Elimination urinary Eliminatio Resolve 2018-102019-09-11 [facility] incontinenc n d 10-28 09:50:00 Ingrahm e 11:00: [id number] 00 Safety fall risk Safety Resolve 2018-102019-09-11 [facility]ez factor d 10-28 09:50:00 [place] present 11:00: [id number] 00 Safety risk for Safety Resolve 2018-102019-09-23 Mer[facility] hospitaliza d 10-28 11:10:00 [place] tion 11:00: [id number] 00 Safety risk for Safety Unknown 2018-10 Mer[facility]ez hospitaliza 11-24 Ingrahm tion 15:00: [id number] 00 Cardio hypertensio Cardiovasc Resolve 2019-11-25 Leanna n ular d 10-23 11:10:00 [place] 10:15: [id number] 00 Elimination urinary Eliminatio Resolve 2019-11-05 Leanna incontinenc n d 10-23 10:23:00 Re[place] e 10:15: [id number] 00 Elimination constipatio Eliminatio Resolve 2019-11-05 Leanna n n d 10-23 10:23:00 [place] 10:15: [id number] 00 Integument surgical Integument Resolve 2019-11-19 [facility] wound d 10-28 10:50:00 [place] present 10:50: [id number] 00 Nutrition enteral Nutrition Resolve 2019-11-25 [facility] therapy d 10-28 11:10:00 [place] 10:50: [id number] 00 Elimination UTI within Eliminatio Resolve 2019-11-05 Mercedez past 14 n d 10-28 10:23:00 Ingrahm days 10:50: [id number] 00 Activity self-care Activity Resolve 2019-11-05 [place] deficit d 10-28 10:23:00 [place] 10:50: [id number] 00 Safety fall risk Safety Resolve 2019-11-05 Mer[facility]ez factor d 10-28 10:23:00 [place] present 10:50: [id number] 00 Safety risk for Safety Resolve 2019-11-05 Mercedez hospitaliza d 10-28 10:23:00 [place] tion 10:50: [id number] 00 Safety risk for Safety Active Roseline denis 2-12 [facility] tion 11:00: [id number] 00 Allergies, Adverse Reactions, Alerts Allergy Allergy Status Severity Reaction(s) Onset Inactive Treating Comments Name Type Date Date Clinician latex Base Active Unknown Hives [facility] Ingredient 07-07 Ingrahm [id number] amoxicillin Base Active Unknown Anaphylaxis [place] Ingredient 07-07 Ingrahm [id number] bee venom Base Active Unknown Anaphylaxis [facility] protein Ingredient 07-07 Ingrahm (honey bee) [id number] Botox Medication Active Unknown An[facility]axis [id number] Unknown Active Unknown Anaphylaxis [facility]ez dye 07-07 Ingrm [id number] Penicillins Allergen Active Unknown Anaphylaxis [facility] Group 07-07 Ingrm [id number] shellfish Base Active Unknown Anaphylaxis [facility] derived Ingredient 07-07 [facility] [id number] adhesive Base Active Unknown Hives [facility] tape Ingredient 07-07 Ingrm [id number] nsaids Unknown Active Unknown stomach issues 2017- [place]ez 07-07 Ingrm [id number] oxycodone Base Active Unknown swelling Mer[facility]ez Ingredient 07-07 Ingrm [id number] Betadine Medication Active Unknown Rash 2017- [facility] Name ID 07-07 [facility] [id number] Hibiclens Medication Active Unknown Rash Mer[facility]ez Name ID 07-07 [facility] [id number] evironmenta Unknown Active Unknown hay fever, 2018 Rea l/seasonal watery eye, 07-07 Guidelli itching, [id number] sneeze, congestion povidone-io Base Active Unknown itching Rea dine Ingredient 07-07 Guidelli [id number] Iodine and Allergen Active Unknown Anaphylaxis Rea Iodide Group 07-07 [place] Containing [id number] Products albumin Base Active Unknown Anaphylaxis Rea colloid, Ingredient 07-07 Guidelli human [id number] fentanyl Base Active Unknown hallucinations Rea Ingredient 07-07 [place] [id number] Medications Ordered Filled Start Stop Current Ordering [...] Tashia FINCH (magnesium (magnesium e chloride) chloride) tablet,linad tablet,linda yed release yed release pantoprazol pantoprazol [...] Unknown Unknown tartrate 50 tartrate 50 10-26- Tasiha FINCH mg tablet mg tablet e amLODIPine [...]
--- OUTSIDE RECORDS SUMMARY | 2019-12-19 17:46 | XMS REPORT ---
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 w/o ang pctrs ang pctrs Encounter Encounter Diagnosis Active Mer[facility]ez for for 07-07 In[facility] attention attention [id number] to to gastrostomy gastrostomy Gastro-esop Gastro-esop Diagnosis Active Mercedez hageal hageal 07-07 Ingrahm reflux reflux [id number] disease disease without without esophagitis esophagitis Other Other Diagnosis Active Mercedez specified specified 07-07 Ingrahm arthritis, arthritis, [id number] unspecified unspecified site site Essential Essential Diagnosis Active [facility]ez (primary) (primary) 07-07 Ingrahm hypertensio hypertensio [id number] n 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 Diagnosis 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 [facility]ez (current) (current) Ingrahm use of use of [id number] anticoagula anticoagula nts nts Nicotine Nicotine Diagnosis Active Mer[facility]ez dependence, dependence, Ingrahm cigarettes, cigarettes, [id number] uncomplicat uncomplicat ed ed Personal Personal Diagnosis Active [facility]ez history of history of Ingrahm malignant malignant [id number] neoplasm of neoplasm of breast breast Prsnl hx of Prsnl hx of Diagnosis Active Mercedez TIA (TIA), TIA (TIA), Ingrahm and cereb and cereb [id number] infrc w/o infrc w/o resid resid deficits deficits Pain frequent Pain Mgmt Resolve 2018-11-26 Ana pain d 9 16:15:00 [place] 13:30: [id number] 00 Pain severe pain Pain Mgmt Resolve 2018-11-26 Ana d 9 16:15:00 [place] 13:30: [id number] 00 Endo/Han anti-coagul Endo/Han Resolve 2019-02-06 Ana ation d 07-07 11:15:00 [place] therapy 13:30: [id number] 00 Integument surgical Integument Resolve 2018-08-05 Rea wound d 07-07 13:35:00 [place] present 13:30: [id number] 00 Nutrition nutritional Nutrition Resolve 2019-01-02 Ana restriction d 07-07 10:00:00 [place] s 13:30: [id number] 00 Nutrition changing Nutrition Resolve 2019-01-02 Ana weight/appe d 07-07 10:00:00 [place] tite 13:30: [id number] 00 Nutrition nutritional Nutrition Resolve 2019-01-02 Ana risk d 07-07 10:00:00 [place] 13:30: [id number] 00 Nutrition enteral Nutrition Resolve 2019-02-06 Ana therapy d 07-07 11:15:00 [place] 13:30: [id number] 00 Safety structural Safety Resolve 2019-02-06 Ana barriers d 07-07 11:15:00 [place] present 13:30: [id number] 00 Safety fall risk Safety Resolve 2019-02-06 Ana factor d 07-07 11:15:00 [place] present 13:30: [id number] 00 Safety risk for Safety Resolve 2019-02-06 Ana hospitaliza d 07-07 11:15:00 [place] tion 13:30: [id number] 00 Medication potential Meds Resolve 2019-02-06 Ana clinically d 07-07 11:15:00 [place] significant 13:30: [id number] medication 00 issue Musculoskel requires Musculoske Resolve 2019-02-06 Ana etal human letal d 07-07 11:15:00 [place] assist to 13:30: [id number] leave home 00 IV IV present IV Resolve 2019-02-06 Rea d 9-30 11:15:00 Lissette [id number] Respiratory dyspnea Respirator Resolve 2017-102019-02-06 Mer[facility]ez present y d 0-16 11:15:00 [place] 13:35: [id number] 00 Neuro confusion Neuro/Emot Unknown 2017-10 [facility]ez present ion 0-16 [facility] 13:35: [id number] 00 Neuro depressive Neuro/Emot Unknown 2017-10 Mer[facility]ez feelings ion 0-16 In[facility] present 13:35: [id number] 00 Safety can be left Safety Resolve 2017-102019-02-06 Mercedez alone for d 0-18 11:15:00 Ingrahm only short 08:10: [id number] periods 00 Integument surgical Integument Resolve 2017-102018-10-30 Shila wound d 1-15 10:10:00 Brian present 08:55: [id number] 00 Elimination GI drain or Eliminatio Resolve 2017-102019-02-06 Shila tube n d 1-15 11:15:00 Brian present 08:55: [id number] 00 Neuro anxiety Neuro/Emot Resolve 2017-102019-02-06 Shila present ion d 1-15 11:15:00 Brian 08:55: [id number] 00 Medication injectable Meds Resolve 2017-102019-02-06 Shila med d 1-15 11:15:00 Brian assistance 08:55: [id number] required 00 Safety fire risk Safety Resolve 2017-102019-02-06 Shila present d 1-15 11:15:00 Brian 13:00: [id number] 00 Elimination urinary Eliminatio Resolve 2019-02-06 Mer[facility]ez incontinenc n d - 11:15:00 Ingrahm e 14:20: [id number] 00 Pain frequent Pain Mgmt Resolve 2019-02-06 Mer[facility]ez pain d 2-15 11:15:00 [place] 10:15: [id number] 00 Safety risk for Safety Unknown Leanna hospitaliza 02-06 [facility] tion 15:45: [id number] 00 Respiratory lung sounds Respirator Resolve 2019-04-03 Leanna deficit y d 02-10 10:01:00 Regeczi 13:20: [id number] 00 Respiratory smoker Respirator Resolve 2019-04-03 Leanna y d 4-29 10:01:00 Regeczi 12:10: [id number] 00 Respiratory dyspnea Respirator Resolve 2019-06-05 Mer[facility]ez present y d 5-15 10:30:00 Ingra[place] 09:00: [id number] 00 Integument surgical Integument Resolve 2019-03-27 Mer[facility]ez wound d 5-15 09:15:00 Ingrahm present 09:00: [id number] 00 Nutrition enteral Nutrition Resolve 2019-03-27 Mercedez therapy d -15 09:15:00 [place] 09:00: [id number] 00 Elimination urinary Eliminatio Resolve 2019-04-10 Mercedez incontinenc n d 15 09:30:00 Ingrahm e 09:00: [id number] 00 Neuro confusion Neuro/Emot Resolve 2019-11-25 Mercedez present ion d 15 11:10:00 [place] 09:00: [id number] 00 Neuro anxiety Neuro/Emot Resolve 2019-11-25 Mercedez present ion d 515 11:10:00 [place] 09:00: [id number] 00 Neuro depressive Neuro/Emot Resolve 2019-11-25 Mercedez feelings ion d 15 11:10:00 Ingra[place] present 09:00: [id number] 00 Neuro impaired Neuro/Emot Resolve 2019-11-25 Mercedez decision-ma ion d 15 11:10:00 [facility] sonali 09:00: [id number] 00 Activity self-care Activity Resolve 2019-05-20 Mercedez deficit d -15 11:15:00 [place] 09:00: [id number] 00 Safety fall risk Safety Resolve 2019-07-17 Mercedez factor d 5-15 10:35:00 Ingrahm present 09:00: [id number] 00 Safety risk for Safety Resolve 2019-07-17 Mercedez hospitaliza d 5-15 10:35:00 Ingrahm tion 09:00: [id number] 00 Medication potential Meds Resolve 2019-03-27 Mercedez clinically d 5-15 09:15:00 Ingrahm significant 09:00: [id number] medication 00 issue Integument surgical Integument Resolve 2019-05-20 Mercedez wound d 7-12 11:15:00 Ingrahm present 10:00: [id number] 00 Nutrition enteral Nutrition Resolve 2019-06-26 Mercedez therapy d 7-12 10:35:00 [place] 10:00: [id number] 00 Respiratory dyspnea Respirator Resolve 2019-08-07 Leanna present y d 06-26 10:25:00 Regeczi 10:35: [id number] 00 Respiratory smoker Respirator Resolve 2019-07-01 Leanna y d 06-26 10:15:00 Regeczi 10:35: [id number] 00 Endo/Han anti-coagul Endo/Han Resolve 2019-07-23 Leanna ation d 06-26 10:15:00 Regeczi therapy 10:35: [id number] 00 Elimination urinary Eliminatio Resolve 2019-07-23 Leanna incontinenc n d 06-26 10:15:00 Regeczi e 10:35: [id number] 00 Elimination nausea/vomi Eliminatio Resolve 2019-07-01 Leanna serranog n d 06-26 10:15:00 Regeczi 10:35: [id number] 00 Integument surgical Integument Resolve 2019-07-23 Mer[facility]ez wound d 9-11 10:15:00 Ingrahm present 10:15: [id number] 00 Nutrition enteral Nutrition Resolve 2019-07-23 Mercedez therapy d 07-01 10:15:00 Ingrahm 10:15: [id number] 00 Respiratory smoker Respirator Resolve 2019-07-16 Leanna y d 07-16 10:05:00 Regeczi 10:05: [id number] 00 Elimination diarrhea Eliminatio Resolve 2019-07-23 Leanna n d 07-17 10:15:00 Regeczi 10:35: [id number] 00 Cardio hypertensio Cardiovasc Resolve 2018-102019-07-30 Leanna olivares 0 10:00:00 Regeczi 10:15: [id number] 00 Safety risk for Safety Resolve 2018-102019-07-23 Leanna hospitaliza d 0-03 10:15:00 Regeczi tion 10:15: [id number] 00 24 Hr Diet knowledge/s NT: 24Hr Resolve 2018-102019-07-23 Wen kill Diet d 0-03 15:00:00 [place] deficit - 15:00: [id number] pt 00 Nutritional eating NT: Resolve 2018-102019-07-23 Wen Barrier difficultie Barriers d 0-03 15:00:00 [place] s present 15:00: [id number] Safety risk for Safety Resolve 2018-102019-08-07 Roseline hospitaliza d 0-04 10:25:00 [place] tion 14:00: [id number] 00 Social financial MURIEL: Active 2018-10 Ros[facility] Services resource Social 0-04 [place] deficit Services 14:00: [id number] 00 Social support MURIEL: Active 2018-10 [facility] Services deficit Social 0-04 [place] Services 14:00: [id number] 00 Social knowledge/s MURIEL: Active 2018-10 [facility] Services kill Social 0-04 [place] deficit - Services 14:00: [id number] pt 00 Social financial MURIEL: Unknown 2018-10 [facility] Services resource Social 0-10 [facility] deficit Services 15:00: [id number] 00 Social knowledge/s MURIEL: Unknown 2018-10 [facility] Services kill Social 0-10 In[place] deficit - Services 15:00: [id number] pt 00 Respiratory lung sounds Respirator Resolve 2018-102019-08-07 Leanna deficit y d 0-18 10:25:00 Regeczi 10:25: [id number] 00 Respiratory dyspnea Respirator Resolve 2018-102019-10-23 Mercedez present y d 10-28 10:15:00 Ingrahm 11:00: [id number] 00 Integument surgical Integument Resolve 2018-102019-09-11 Mercedez wound d 10-28 09:50:00 Ingrahm present 11:00: [id number] 00 Nutrition enteral Nutrition Resolve 2018-102019-09-11 Mercedze therapy d 10-28 09:50:00 Ingra[place] 11:00: [id number] 00 Elimination urinary Eliminatio Resolve 2018-102019-09-11 Mercedez incontinenc n d 10-28 09:50:00 Ingrahm e 11:00: [id number] 00 Safety fall risk Safety Resolve 2018-102019-09-11 Mercedez factor d 10-28 09:50:00 Ingrahm present 11:00: [id number] 00 Safety risk for Safety Resolve 2018-102019-09-23 Mercedez hospitaliza d 10-28 11:10:00 Ingrahm tion 11:00: [id number] 00 Safety risk for Safety Unknown 2018-10 Mercedez hospitaliza 11-24 Ingrahm tion 15:00: [id number] 00 Cardio hypertensio Cardiovasc Resolve 2019-11-25 Leanna n ular d 10-23 11:10:00 Regeczi 10:15: [id number] 00 Elimination urinary Eliminatio Resolve 2019-11-05 Leanna incontinenc n d 10-23 10:23:00 Regeczi e 10:15: [id number] 00 Elimination constipatio Eliminatio Resolve 2019-11-05 Leanna n n d 10-23 10:23:00 Regeczi 10:15: [id number] 00 Integument surgical Integument Resolve 2019-11-19 Mercedez wound d 10-28 10:50:00 Ingrahm present 10:50: [id number] 00 Nutrition enteral Nutrition Resolve 2019-11-25 Mercedez therapy d 10-28 11:10:00 Ingrahm 10:50: [id number] 00 Elimination UTI within Eliminatio Resolve 2019-11-05 Mercedez past 14 n d 10-28 10:23:00 Ingrahm days 10:50: [id number] 00 Activity self-care Activity Resolve 2019-11-05 Mercedez deficit d 10-28 10:23:00 Ingrahm 10:50: [id number] 00 Safety fall risk Safety Resolve 2019-11-05 Mercedez factor d 10-28 10:23:00 Ingrahm present 10:50: [id number] 00 Safety risk for Safety Resolve 2019-11-05 Mercedez hospitaliza d 10-28 10:23:00 Ingrahm tion 10:50: [id number] 00 Safety risk for Safety Active Roseline denis 2-12 [facility] tion 11:00: [id number] 00 Allergies, Adverse Reactions, Alerts Allergy Allergy Status Severity Reaction(s) Onset Inactive Treating Comments Name Type Date Date Clinician latex Base Active Unknown Hives Mer[facility]ez Ingredient 07-07 Ingrahm [id number] amoxicillin Base Active Unknown Anaphylaxis [facility] Ingredient 07-07 Ingrahm [id number] bee venom Base Active Unknown Anaphylaxis Mer[facility]ez protein Ingredient 07-07 Ingrahm (honey bee) [id number] Botox Medication Active Unknown Anaphylaxis [id number] Unknown Active Unknown Anaphylaxis Mercedez dye 07-07 Ingrm [id number] Penicillins Allergen Active Unknown Anaphylaxis [facility] Group 07-07 Ingrm [id number] shellfish Base Active Unknown Anaphylaxis [facility]ez derived Ingredient 07-07 [facility] [id number] adhesive Base Active Unknown Hives Mer[facility]ez tape Ingredient 07-07 Ingrm [id number] nsaids Unknown Active Unknown stomach issues 2017- Mercedez 07-07 Ingrm [id number] oxycodone Base Active Unknown swelling Mercedez Ingredient 07-07 Ingrm [id number] Betadine Medication Active Unknown Rash 2017- [facility] Name ID 07-07 [facility] [id number] Hibiclens Medication Active Unknown Rash [facility]ez Name ID 07-07 [facility] [id number] evironmenta Unknown Active Unknown hay fever, 2018 Rea l/seasonal watery eye, 07-07 Guidelli itching, [id number] sneeze, congestion povidone-io Base Active Unknown itching Rea dine Ingredient 07-07 Guidelli [id number] Iodine and Allergen Active Unknown Anaphylaxis Rea Iodide Group 07-07 Guidelli Containing [id number] Products albumin Base Active Unknown Anaphylaxis Rea colloid, Ingredient 07-07 Guidelli human [id number] fentanyl Base Active Unknown hallucinations Rea Ingredient 07-07 Guidelli [id number] Medications Ordered Filled Start Stop Current Ordering [...]
--- OUTSIDE RECORDS SUMMARY | 2019-12-19 17:46 | XMS REPORT ---
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 w/o ang pctrs ang pctrs Encounter Encounter Diagnosis Active Mer[facility]ez for for 07-07 Ingrahm attention attention [id number] to to gastrostomy gastrostomy Gastro-esop Gastro-esop Diagnosis Active Mercedez hageal hageal 07-07 Ingrahm reflux reflux [id number] disease disease without without esophagitis esophagitis Other Other Diagnosis Active Mercedez specified specified 07-07 Ingrahm arthritis, arthritis, [id number] unspecified unspecified site site Essential Essential Diagnosis Active [facility]ez (primary) (primary) 07-07 Ingrahm hypertensio 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 [facility] (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) (current) Ingrahm use of use of [id number] anticoagula anticoagula nts nts Nicotine Nicotine Diagnosis Active Mer[facility]ez dependence, dependence, Ingrahm cigarettes, cigarettes, [id number] uncomplicat uncomplicat ed ed Personal Personal Diagnosis Active Mercdeez history of history of Ingrahm malignant malignant [id number] neoplasm of neoplasm of breast breast Prsnl hx of Prsnl hx of Diagnosis Active Mer[facility]ez TIA (TIA), TIA (TIA), Ingrahm and cereb and cereb [id number] infrc w/o infrc w/o resid resid deficits deficits Pain frequent Pain Mgmt Resolve 2018-11-26 Ana pain d 9 16:15:00 [place] 13:30: [id number] 00 Pain severe pain Pain Mgmt Resolve 2018-11-26 Ana d 9 16:15:00 [place] 13:30: [id number] 00 Endo/Han anti-coagul Endo/Han Resolve 2019-02-06 Ana ation d 07-07 11:15:00 [place] therapy 13:30: [id number] 00 Integument surgical Integument Resolve 2018-08-05 Rea wound d 07-07 13:35:00 Guidelli present 13:30: [id number] 00 Nutrition nutritional Nutrition Resolve 2019-01-02 Ana restriction d 07-07 10:00:00 [place] s 13:30: [id number] 00 Nutrition changing Nutrition Resolve 2019-01-02 Ana weight/appe d 07-07 10:00:00 [place] tite 13:30: [id number] 00 Nutrition nutritional Nutrition Resolve 2019-01-02 Ana risk d 07-07 10:00:00 [place] 13:30: [id number] 00 Nutrition enteral Nutrition Resolve 2019-02-06 Ana therapy d 07-07 11:15:00 [place] 13:30: [id number] 00 Safety structural Safety Resolve 2019-02-06 Ana barriers d 07-07 11:15:00 [place] present 13:30: [id number] 00 Safety fall risk Safety Resolve 2019-02-06 Ana factor d 07-07 11:15:00 [place] present 13:30: [id number] 00 Safety risk for Safety Resolve 2019-02-06 Ana hospitaliza d 07-07 11:15:00 [place] tion 13:30: [id number] 00 Medication potential Meds Resolve 2019-02-06 Ana clinically d 07-07 11:15:00 [place] significant 13:30: [id number] medication 00 issue Musculoskel requires Musculoske Resolve 2019-02-06 Ana etal human letal d 07-07 11:15:00 [place] assist to 13:30: [id number] leave home 00 IV IV present IV Resolve 2019-02-06 Rea d 9-30 11:15:00 Lissette [id number] Respiratory dyspnea Respirator Resolve 2017-102019-02-06 Mercedez present y d 0-16 11:15:00 In[place] 13:35: [id number] 00 Neuro confusion Neuro/Emot Unknown 2017-10 Mer[facility]ez present ion 0-16 Ingra[place] 13:35: [id number] 00 Neuro depressive Neuro/Emot Unknown 2017-10 [facility]ez feelings ion 0-16 Ingrahm present 13:35: [id number] 00 Safety can be left Safety Resolve 2017-102019-02-06 Mercedez alone for d 0-18 11:15:00 Ingrahm only short 08:10: [id number] periods 00 Integument surgical Integument Resolve 2017-102018-10-30 Shila wound d 1-15 10:10:00 Brian present 08:55: [id number] 00 Elimination GI drain or Eliminatio Resolve 2017-102019-02-06 Shila tube n d 1-15 11:15:00 Brian present 08:55: [id number] 00 Neuro anxiety Neuro/Emot Resolve 2017-102019-02-06 Shila present ion d 1-15 11:15:00 Brian 08:55: [id number] 00 Medication injectable Meds Resolve 2017-102019-02-06 Shila med d 1-15 11:15:00 Brian assistance 08:55: [id number] required 00 Safety fire risk Safety Resolve 2017-102019-02-06 Shila present d 1-15 11:15:00 Brian 13:00: [id number] 00 Elimination urinary Eliminatio Resolve 2019-02-06 Mercedez incontinenc n d - 11:15:00 Ingrahm e 14:20: [id number] 00 Pain frequent Pain Mgmt Resolve 2019-02-06 Mercedez pain d 2-15 11:15:00 Ingrahm 10:15: [id number] 00 Safety risk for Safety Unknown Leanna hospitaliza 02-06 Regeczi tion 15:45: [id number] 00 Respiratory lung sounds Respirator Resolve 2019-04-03 Leanna deficit y d 02-10 10:01:00 Regeczi 13:20: [id number] 00 Respiratory smoker Respirator Resolve 2019-04-03 Leanna y d 4-29 10:01:00 Regeczi 12:10: [id number] 00 Respiratory dyspnea Respirator Resolve 2019-06-05 Mercedez present y d 5-15 10:30:00 Ingrahm 09:00: [id number] 00 Integument surgical Integument Resolve 2019-03-27 Mercedez wound d 5-15 09:15:00 Ingrahm present 09:00: [id number] 00 Nutrition enteral Nutrition Resolve 2019-03-27 Mercedez therapy d -15 09:15:00 Ingrahm 09:00: [id number] 00 Elimination urinary Eliminatio Resolve 2019-04-10 Mercedez incontinenc n d 15 09:30:00 Ingrahm e 09:00: [id number] 00 Neuro confusion Neuro/Emot Resolve 2019-11-25 Mercedez present ion d 15 11:10:00 Ingrahm 09:00: [id number] 00 Neuro anxiety Neuro/Emot Resolve 2019-11-25 Mercedez present ion d 515 11:10:00 Ingrahm 09:00: [id number] 00 Neuro depressive Neuro/Emot Resolve 2019-11-25 Mercedez feelings ion d 15 11:10:00 Ingrahm present 09:00: [id number] 00 Neuro impaired Neuro/Emot Resolve 2019-11-25 Mercedez decision-ma ion d 15 11:10:00 [facility] sonali 09:00: [id number] 00 Activity self-care Activity Resolve 2019-05-20 Mercedez deficit d -15 11:15:00 Ingrahm 09:00: [id number] 00 Safety fall risk Safety Resolve 2019-07-17 Mercedez factor d 5-15 10:35:00 Ingrahm present 09:00: [id number] 00 Safety risk for Safety Resolve 2019-07-17 Mercedez hospitaliza d 5-15 10:35:00 Ingrahm tion 09:00: [id number] 00 Medication potential Meds Resolve 2019-03-27 Mercedez clinically d 5-15 09:15:00 Ingrahm significant 09:00: [id number] medication 00 issue Integument surgical Integument Resolve 2019-05-20 Mercedez wound d 7-12 11:15:00 Ingrahm present 10:00: [id number] 00 Nutrition enteral Nutrition Resolve 2019-06-26 Mercedez therapy d 7-12 10:35:00 Ingrahm 10:00: [id number] 00 Respiratory dyspnea Respirator Resolve 2019-08-07 Leanna present y d 06-26 10:25:00 Regeczi 10:35: [id number] 00 Respiratory smoker Respirator Resolve 2019-07-01 Leanna y d 06-26 10:15:00 Regeczi 10:35: [id number] 00 Endo/Han anti-coagul Endo/Han Resolve 2019-07-23 Leanna ation d 06-26 10:15:00 Regeczi therapy 10:35: [id number] 00 Elimination urinary Eliminatio Resolve 2019-07-23 Leanna incontinenc n d 06-26 10:15:00 Regeczi e 10:35: [id number] 00 Elimination nausea/vomi Eliminatio Resolve 2019-07-01 Leanna serranog n d 06-26 10:15:00 Regeczi 10:35: [id number] 00 Integument surgical Integument Resolve 2019-07-23 Mercedez wound d 9-11 10:15:00 Ingrahm present 10:15: [id number] 00 Nutrition enteral Nutrition Resolve 2019-07-23 Mercedez therapy d 07-01 10:15:00 Ingrahm 10:15: [id number] 00 Respiratory smoker Respirator Resolve 2019-07-16 Leanna y d 07-16 10:05:00 Regeczi 10:05: [id number] 00 Elimination diarrhea Eliminatio Resolve 2019-07-23 Leanna n d 07-17 10:15:00 Regeczi 10:35: [id number] 00 Cardio hypertensio Cardiovasc Resolve 2018-102019-07-30 Leanna olivares 0 10:00:00 Regeczi 10:15: [id number] 00 Safety risk for Safety Resolve 2018-102019-07-23 Leanna hospitaliza d 0-03 10:15:00 Regeczi tion 10:15: [id number] 00 24 Hr Diet knowledge/s NT: 24Hr Resolve 2018-102019-07-23 Wen kill Diet d 0-03 15:00:00 [place] deficit - 15:00: [id number] pt 00 Nutritional eating NT: Resolve 2018-102019-07-23 Wen Barrier difficultie Barriers d 0-03 15:00:00 [place] s present 15:00: [id number] Safety risk for Safety Resolve 2018-102019-08-07 Roseline hospitaliza d 0-04 10:25:00 [place] tion 14:00: [id number] 00 Social financial MURIEL: Active 2018-10 [facility] resource Social 0-04 [place] deficit Services 14:00: [id number] 00 Social support MURIEL: Active 2018-10 [facility] deficit Social 0-04 [place] Services 14:00: [id number] 00 Social knowledge/s MURIEL: Active 2018-10 [facility] kill Social 0-04 [place] deficit - Services 14:00: [id number] pt 00 Social financial MURIEL: Unknown 2018-10 [facility] Services resource Social 0-10 Ingrahm deficit Services 15:00: [id number] 00 Social knowledge/s MURIEL: Unknown 2018-10 [facility] Services kill Social 0-10 Ingrahm deficit - Services 15:00: [id number] pt 00 Respiratory lung sounds Respirator Resolve 2018-102019-08-07 Leanna deficit y d 0-18 10:25:00 Regeczi 10:25: [id number] 00 Respiratory dyspnea Respirator Resolve 2018-102019-10-23 Mercedez present y d 10-28 10:15:00 Ingrahm 11:00: [id number] 00 Integument surgical Integument Resolve 2018-102019-09-11 Mercedez wound d 10-28 09:50:00 Ingrahm present 11:00: [id number] 00 Nutrition enteral Nutrition Resolve 2018-102019-09-11 Mercedez therapy d 10-28 09:50:00 Ingrahm 11:00: [id number] 00 Elimination urinary Eliminatio Resolve 2018-102019-09-11 Mercedez incontinenc n d 10-28 09:50:00 Ingrahm e 11:00: [id number] 00 Safety fall risk Safety Resolve 2018-102019-09-11 Mercedez factor d 10-28 09:50:00 Ingrahm present 11:00: [id number] 00 Safety risk for Safety Resolve 2018-102019-09-23 Mercedez hospitaliza d 10-28 11:10:00 Ingrahm tion 11:00: [id number] 00 Safety risk for Safety Unknown 2018-10 Mercedez hospitaliza 11-24 Ingrahm tion 15:00: [id number] 00 Cardio hypertensio Cardiovasc Resolve 2019-11-25 Leanna n ular d 10-23 11:10:00 Regeczi 10:15: [id number] 00 Elimination urinary Eliminatio Resolve 2019-11-05 Leanna incontinenc n d 10-23 10:23:00 Regeczi e 10:15: [id number] 00 Elimination constipatio Eliminatio Resolve 2019-11-05 Leanna n n d 10-23 10:23:00 Regeczi 10:15: [id number] 00 Integument surgical Integument Resolve 2019-11-19 Mercedez wound d 10-28 10:50:00 Ingrahm present 10:50: [id number] 00 Nutrition enteral Nutrition Resolve 2019-11-25 Mercedez therapy d 10-28 11:10:00 Ingrahm 10:50: [id number] 00 Elimination UTI within Eliminatio Resolve 2019-11-05 Mercedez past 14 n d 10-28 10:23:00 Ingrahm days 10:50: [id number] 00 Activity self-care Activity Resolve 2019-11-05 Mercedez deficit d 10-28 10:23:00 Ingrahm 10:50: [id number] 00 Safety fall risk Safety Resolve 2019-11-05 Mercedez factor d 10-28 10:23:00 Ingrahm present 10:50: [id number] 00 Safety risk for Safety Resolve 2019-11-05 Mercedez hospitaliza d 10-28 10:23:00 Ingrahm tion 10:50: [id number] 00 Allergies, Adverse Reactions, Alerts Allergy Allergy Status Severity Reaction(s) Onset Inactive Treating Comments Name Type Date Date Clinician latex Base Active Unknown Hives [facility] [id number] amoxicillin Base Active Unknown Anaphylaxis [facility] [id number] bee venom Base Active Unknown Anaphylaxis [facility] [id number] Botox Medication Active Unknown Anaphylaxis Mercedez Name ID 07-07 [facility] [id number] contrast Unknown Active Unknown Anaphylaxis Mercedez dye 07-07 [facility] [id number] Penicillins Allergen Active Unknown Anaphylaxis Mer[facility]ez Group 07-07 [facility] [id number] shellfish Base Active Unknown Anaphylaxis Mercedez derived Ingredient 07-07 [facility] [id number] adhesive Base Active Unknown Hives Mercedez tape Ingredient 07-07 [facility] [id number] nsaids Unknown Active Unknown stomach issues Mercedez 07-07 [facility] [id number] oxycodone Base Active Unknown swelling Mercedez Ingredient 07-07 [facility] [id number] Betadine Medication Active Unknown Rash Mercedez Name ID 07-07 [facility] [id number] Hibiclens Medication Active Unknown Rash Mercedez Name ID 07-07 [facility] [id number] evironmenta Unknown Active Unknown hay fever, Rea l/seasonal watery eye, 07-07 Guidelli itching, [id number] sneeze, congestion povidone-io Base Active Unknown itching Rea dine Ingredient 07-07 Guidelli [id number] Iodine and Allergen Active Unknown Anaphylaxis Rea Iodide Group 07-07 Guidelli Containing [id number] Products albumin Base Active Unknown Anaphylaxis Rea colloid, Ingredient 07-07 Guidelli human [id number] fentanyl Base Active Unknown hallucinations Rea Ingredient 07-07 Guidelli [id number] Medications Ordered Filled Start Stop Current Ordering [...]
--- OUTSIDE RECORDS SUMMARY | 2019-12-19 17:46 | XMS REPORT ---
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 gakona coronary coronary artery w/o artery w/o ang pctrs ang pctrs Encounter Encounter Diagnosis Active [facility]ez for for 07-07 Ingrahm attention attention [id number] to to gastrostomy gastrostomy Gastro-esop Gastro-esop Diagnosis Active Mercedez hageal hageal 07-07 Ingrahm reflux reflux [id number] disease disease without without esophagitis esophagitis Other Other Diagnosis Active Mer[facility]ez specified specified 07-07 Ingrahm arthritis, arthritis, [id number] unspecified unspecified site site Essential Essential Diagnosis Active [facility]ez (primary) (primary) 07-07 Ingrahm hypertensio hypertensio [id number] 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 [facility] (current) (current) Ingrahm use of use of [id number] anticoagula anticoagula nts nts Nicotine Nicotine Diagnosis Active [facility] dependence, dependence, Ingrahm cigarettes, cigarettes, [id number] uncomplicat uncomplicat ed ed Personal Personal Diagnosis Active [facility]ez history of history of Ingrahm malignant malignant [id number] neoplasm of neoplasm of breast breast Prsnl hx of Prsnl hx of Diagnosis Active [facility]ez TIA (TIA), TIA (TIA), Ingrahm and cereb and cereb [id number] infrc w/o infrc w/o resid resid deficits deficits Pain frequent Pain Mgmt Resolve 2018-11-26 Ana pain d 9 16:15:00 [place] 13:30: [id number] 00 Pain severe pain Pain Mgmt Resolve 2018-11-26 Ana d 9 16:15:00 [place] 13:30: [id number] 00 Endo/Han anti-coagul Endo/Han Resolve 2019-02-06 Ana ation d 07-07 11:15:00 [place] therapy 13:30: [id number] 00 Integument surgical Integument Resolve 2018-08-05 Rea wound d 07-07 13:35:00 [place] present 13:30: [id number] 00 Nutrition nutritional Nutrition Resolve 2019-01-02 Ana restriction d 07-07 10:00:00 [place] s 13:30: [id number] 00 Nutrition changing Nutrition Resolve 2019-01-02 Ana weight/appe d 07-07 10:00:00 [place] tite 13:30: [id number] 00 Nutrition nutritional Nutrition Resolve 2019-01-02 Ana risk d 07-07 10:00:00 [place] 13:30: [id number] 00 Nutrition enteral Nutrition Resolve 2019-02-06 Ana therapy d 07-07 11:15:00 [place] 13:30: [id number] 00 Safety structural Safety Resolve 2019-02-06 Ana barriers d 07-07 11:15:00 [place] present 13:30: [id number] 00 Safety fall risk Safety Resolve 2019-02-06 Ana factor d 07-07 11:15:00 [place] present 13:30: [id number] 00 Safety risk for Safety Resolve 2019-02-06 Ana hospitaliza d 07-07 11:15:00 [place] tion 13:30: [id number] 00 Medication potential Meds Resolve 2019-02-06 Ana clinically d 07-07 11:15:00 [place] significant 13:30: [id number] medication 00 issue Musculoskel requires Musculoske Resolve 2019-02-06 Ana etal human letal d 07-07 11:15:00 [place] assist to 13:30: [id number] leave home 00 IV IV present IV Resolve 2019-02-06 Rea d 9-30 11:15:00 [place] [id number] Respiratory dyspnea Respirator Resolve 2017-102019-02-06 [facility] present y d 0-16 11:15:00 [place] 13:35: [id number] 00 Neuro confusion Neuro/Emot Unknown 2017-10 [facility] present ion 0-16 [place] 13:35: [id number] 00 Neuro depressive Neuro/Emot Unknown 2017-10 [facility] feelings ion 0-16 [place] present 13:35: [id number] 00 Safety can be left Safety Resolve 2017-102019-02-06 Mercedez alone for d 0-18 11:15:00 [place] only short 08:10: [id number] periods 00 Integument surgical Integument Resolve 2017-102018-10-30 Shila wound d 1-15 10:10:00 Brian present 08:55: [id number] 00 Elimination GI drain or Eliminatio Resolve 2017-102019-02-06 Shila tube n d 1-15 11:15:00 Brian present 08:55: [id number] 00 Neuro anxiety Neuro/Emot Resolve 2017-102019-02-06 Shila present ion d 1-15 11:15:00 Brian 08:55: [id number] 00 Medication injectable Meds Resolve 2017-102019-02-06 Shila med d 1-15 11:15:00 Brian assistance 08:55: [id number] required 00 Safety fire risk Safety Resolve 2017-102019-02-06 Shila present d 1-15 11:15:00 [place] 13:00: [id number] 00 Elimination urinary Eliminatio Resolve 2019-02-06 [facility] incontinenc n d - 11:15:00 [place] e 14:20: [id number] 00 Pain frequent Pain Mgmt Resolve 2019-02-06 [facility] pain d 2-15 11:15:00 [place] 10:15: [id number] 00 Safety risk for Safety Unknown Leanna hospitaliza 02-06 [place] tion 15:45: [id number] 00 Respiratory lung sounds Respirator Resolve 2019-04-03 Leanna deficit y d 02-10 10:01:00 [place] 13:20: [id number] 00 Respiratory smoker Respirator Resolve 2019-04-03 Leanna y d 4-29 10:01:00 [place] 12:10: [id number] 00 Respiratory dyspnea Respirator Resolve 2019-06-05 [facility] present y d 5-15 10:30:00 [place] 09:00: [id number] 00 Integument surgical Integument Resolve 2019-03-27 [facility] wound d 5-15 09:15:00 [place] present 09:00: [id number] 00 Nutrition enteral Nutrition Resolve 2019-03-27 [facility] therapy d -15 09:15:00 [place] 09:00: [id number] 00 Elimination urinary Eliminatio Resolve 2019-04-10 [facility] incontinenc n d 15 09:30:00 [place] e 09:00: [id number] 00 Neuro confusion Neuro/Emot Resolve 2019-11-25 [facility] present ion d 15 11:10:00 [place] 09:00: [id number] 00 Neuro anxiety Neuro/Emot Resolve 2019-11-25 [facility] present ion d 515 11:10:00 [place] 09:00: [id number] 00 Neuro depressive Neuro/Emot Resolve 2019-11-25 [facility] feelings ion d 15 11:10:00 [place] present 09:00: [id number] 00 Neuro impaired Neuro/Emot Resolve 2019-11-25 [facility] decision-ma ion d 15 11:10:00 [facility] sonali 09:00: [id number] 00 Activity self-care Activity Resolve 2019-05-20 [facility] deficit d -15 11:15:00 [place] 09:00: [id number] 00 Safety fall risk Safety Resolve 2019-07-17 Mer[facility]ez factor d 5-15 10:35:00 [place] present 09:00: [id number] 00 Safety risk for Safety Resolve 2019-07-17 Mercedez hospitaliza d 5-15 10:35:00 [place] tion 09:00: [id number] 00 Medication potential Meds Resolve 2019-03-27 Mer[facility]ez clinically d 5-15 09:15:00 Ingra[place] significant 09:00: [id number] medication 00 issue Integument surgical Integument Resolve 2019-05-20 [facility] wound d 7-12 11:15:00 [place] present 10:00: [id number] 00 Nutrition enteral Nutrition Resolve 2019-06-26 [facility] therapy d 7-12 10:35:00 [place] 10:00: [id number] 00 Respiratory dyspnea Respirator Resolve 2019-08-07 Leanna present y d 06-26 10:25:00 Rege[place] 10:35: [id number] 00 Respiratory smoker Respirator Resolve 2019-07-01 Leanna y d 06-26 10:15:00 Re[place] 10:35: [id number] 00 Endo/Han anti-coagul Endo/Han Resolve 2019-07-23 Leanna ation d 06-26 10:15:00 Regeczi therapy 10:35: [id number] 00 Elimination urinary Eliminatio Resolve 2019-07-23 Leanna incontinenc n d 06-26 10:15:00 Regeczi e 10:35: [id number] 00 Elimination nausea/vomi Eliminatio Resolve 2019-07-01 Leanna serranog n d 06-26 10:15:00 Re[place] 10:35: [id number] 00 Integument surgical Integument Resolve 2019-07-23 [facility] wound d 9-11 10:15:00 In[place] present 10:15: [id number] 00 Nutrition enteral Nutrition Resolve 2019-07-23 [facility] therapy d 07-01 10:15:00 [place] 10:15: [id number] 00 Respiratory smoker Respirator Resolve 2019-07-16 Leanna y d 07-16 10:05:00 [place] 10:05: [id number] 00 Elimination diarrhea Eliminatio Resolve 2019-07-23 Leanna n d 07-17 10:15:00 [place] 10:35: [id number] 00 Cardio hypertensio Cardiovasc Resolve 2018-102019-07-30 Leanna olivares 0 10:00:00 [place] 10:15: [id number] 00 Safety risk for Safety Resolve 2018-102019-07-23 Leanna hospitaliza d 0-03 10:15:00 Rege[place] tion 10:15: [id number] 00 24 Hr Diet knowledge/s NT: 24Hr Resolve 2018-102019-07-23 Wen kill Diet d 0-03 15:00:00 [place] deficit - 15:00: [id number] pt 00 Nutritional eating NT: Resolve 2018-102019-07-23 Wen Barrier difficultie Barriers d 0-03 15:00:00 [place] s present 15:00: [id number] Safety risk for Safety Resolve 2018-102019-08-07 Roseline hospitaliza d 0-04 10:25:00 [place] tion 14:00: [id number] 00 Social financial MURIEL: Active 2018-10 [facility] Services resource Social 0-04 [place] deficit Services 14:00: [id number] 00 Social support MURIEL: Active 2018-10 [facility] deficit Social 0-04 [place] Services 14:00: [id number] 00 Social knowledge/s MURIEL: Active 2018-10 [facility] Services kill Social 0-04 [place] deficit - Services 14:00: [id number] pt 00 Social financial MURIEL: Unknown 2018-10 [facility] Services resource Social 0-10 [facility] deficit Services 15:00: [id number] 00 Social knowledge/s MURIEL: Unknown 2018-10 [facility] Services kill Social 0-10 [facility] deficit - Services 15:00: [id number] pt 00 Respiratory lung sounds Respirator Resolve 2018-102019-08-07 Leanna deficit y d 0-18 10:25:00 Re[place] 10:25: [id number] 00 Respiratory dyspnea Respirator Resolve 2018-102019-10-23 [facility]ez present y d 10-28 10:15:00 [place] 11:00: [id number] 00 Integument surgical Integument Resolve 2018-102019-09-11 [facility] wound d 10-28 09:50:00 [place] present 11:00: [id number] 00 Nutrition enteral Nutrition Resolve 2018-102019-09-11 [facility] therapy d 10-28 09:50:00 [place] 11:00: [id number] 00 Elimination urinary Eliminatio Resolve 2018-102019-09-11 Mer[facility]ez incontinenc n d 10-28 09:50:00 Ingrahm e 11:00: [id number] 00 Safety fall risk Safety Resolve 2018-102019-09-11 Mer[facility]ez factor d 10-28 09:50:00 [place] present 11:00: [id number] 00 Safety risk for Safety Resolve 2018-102019-09-23 Mer[facility] hospitaliza d 10-28 11:10:00 Ingrahm tion 11:00: [id number] 00 Safety risk for Safety Unknown 2018-10 Mer[facility]ez hospitaliza 11-24 Ingrahm tion 15:00: [id number] 00 Cardio hypertensio Cardiovasc Resolve 2019-11-25 Leanna n ular d 10-23 11:10:00 [place] 10:15: [id number] 00 Elimination urinary Eliminatio Resolve 2019-11-05 Leanna incontinenc n d 10-23 10:23:00 Rege[place]zi e 10:15: [id number] 00 Elimination constipatio Eliminatio Resolve 2019-11-05 Leanna n n d 10-23 10:23:00 [place] 10:15: [id number] 00 Integument surgical Integument Resolve 2019-11-19 [facility] wound d 10-28 10:50:00 [place] present 10:50: [id number] 00 Nutrition enteral Nutrition Resolve 2019-11-25 Mer[facility]ez therapy d 10-28 11:10:00 [place] 10:50: [id number] 00 Elimination UTI within Eliminatio Resolve 2019-11-05 Mercedez past 14 n d 10-28 10:23:00 Ingrahm days 10:50: [id number] 00 Activity self-care Activity Resolve 2019-11-05 [facility] deficit d 10-28 10:23:00 [place] 10:50: [id number] 00 Safety fall risk Safety Resolve 2019-11-05 Mercedez factor d 10-28 10:23:00 Ingra[place] present 10:50: [id number] 00 Safety risk for Safety Resolve 2019-11-05 Mercedez hospitaliza d 10-28 10:23:00 Ingra[place] tion 10:50: [id number] 00 Safety risk for Safety Active Roseline denis 2-12 [facility] tion 11:00: [id number] 00 Allergies, Adverse Reactions, Alerts Allergy Allergy Status Severity Reaction(s) Onset Inactive Treating Comments Name Type Date Date Clinician latex Base Active Unknown Hives [facility] Ingredient 07-07 Ingrahm [id number] amoxicillin Base Active Unknown Anaphylaxis [facility] Ingredient 07-07 Ingrahm [id number] bee venom Base Active Unknown Anaphylaxis [facility] protein Ingredient 07-07 Ingrahm (honey bee) [id number] Botox Medication Active Unknown [facility]aphylaxis [id number] contrast Unknown Active Unknown Anaphylaxis Mer[facility]ez dye 07-07 Ingrm [id number] Penicillins Allergen Active Unknown Anaphylaxis [facility] Group 07-07 Ingrm [id number] shellfish Base Active Unknown Anaphylaxis [facility]ez derived Ingredient 07-07 [facility] [id number] adhesive Base Active Unknown Hives Mer[facility] tape Ingredient 07-07 Ingrm [id number] nsaids Unknown Active Unknown stomach issues 2017- [facility]ez 07-07 Ingrm [id number] oxycodone Base Active Unknown swelling Mer[facility] Ingredient 07-07 Ingrm [id number] Betadine Medication Active Unknown Rash 2017- [facility] [id number] Hibiclens Medication Active Unknown Rash Mercedez Name ID 07-07 [facility] [id number] evironmenta Unknown Active Unknown hay fever, 2018 Rea l/seasonal watery eye, 07-07 [place] itching, [id number] sneeze, congestion povidone-io Base Active Unknown itching Rea dine Ingredient 07-07 Guid[place] [id number] Iodine and Allergen Active Unknown Anaphylaxis Rea Iodide Group 07-07 [place] Containing [id number] Products albumin Base Active Unknown Anaphylaxis Rea colloid, Ingredient 07-07 Guidelli human [id number] fentanyl Base Active Unknown hallucinations Rea Ingredient 07-07 [place] [id number] Medications Ordered Filled Start Stop Current Ordering [...] 18:07:43 50 mm[Hg] mm[Hg] Method: Lie PULSE 2019-12-09 18:10:28 87 /min /min RESP RATE 2019-12-09 18:10:28 16 /min /min TEMP 2019-12-09 18:10:28 98.0 [degF] Procedures This patient has no known procedures. Results This patient has no known results.
--- OUTSIDE RECORDS SUMMARY | 2019-12-19 17:46 | XMS REPORT ---
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 ang pctrs ang pctrs Encounter Encounter Diagnosis Active Mer[facility]ez for for 07-07 Ingrahm attention attention [id number] to to gastrostomy gastrostomy Gastro-esop Gastro-esop Diagnosis Active Mercedez hageal hageal 07-07 Ingrahm reflux reflux [id number] disease disease without without esophagitis esophagitis Other Other Diagnosis Active Mercedez specified specified 07-07 Ingrahm arthritis, arthritis, [id number] unspecified unspecified site site Essential Essential Diagnosis Active [facility]ez (primary) (primary) 07-07 Ingrahm hypertensio hypertensio 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 [facility]ez (current) (current) Ingrahm use of use of [id number] anticoagula anticoagula nts nts Nicotine Nicotine Diagnosis Active Mer[facility]ez dependence, dependence, Ingrahm cigarettes, cigarettes, [id number] uncomplicat uncomplicat ed ed Personal Personal Diagnosis Active Mer[facility]ez history of history of Ingrahm malignant malignant [id number] neoplasm of neoplasm of breast breast Prsnl hx of Prsnl hx of Diagnosis Active Mercedez TIA (TIA), TIA (TIA), Ingrahm and cereb and cereb [id number] infrc w/o infrc w/o resid resid deficits deficits Pain frequent Pain Mgmt Resolve 2018-11-26 Ana pain d 9 16:15:00 Herald 13:30: [id number] 00 Pain severe pain Pain Mgmt Resolve 2018-11-26 Ana d 9 16:15:00 Herald 13:30: [id number] 00 Endo/Han anti-coagul Endo/Han Resolve 2019-02-06 Ana ation d 07-07 11:15:00 Herald therapy 13:30: [id number] 00 Integument surgical Integument Resolve 2018-08-05 Rea wound d 07-07 13:35:00 Guidelli present 13:30: [id number] 00 Nutrition nutritional Nutrition Resolve 2019-01-02 Ana restriction d 07-07 10:00:00 Herald s 13:30: [id number] 00 Nutrition changing Nutrition Resolve 2019-01-02 Ana weight/appe d 07-07 10:00:00 Herald tite 13:30: [id number] 00 Nutrition nutritional Nutrition Resolve 2019-01-02 Ana risk d 07-07 10:00:00 Herald 13:30: [id number] 00 Nutrition enteral Nutrition Resolve 2019-02-06 Ana therapy d 07-07 11:15:00 Herald 13:30: [id number] 00 Safety structural Safety Resolve 2019-02-06 Ana barriers d 07-07 11:15:00 Herald present 13:30: [id number] 00 Safety fall risk Safety Resolve 2019-02-06 Ana factor d 07-07 11:15:00 Herald present 13:30: [id number] 00 Safety risk for Safety Resolve 2019-02-06 Ana hospitaliza d 07-07 11:15:00 Herald tion 13:30: [id number] 00 Medication potential Meds Resolve 2019-02-06 Ana clinically d 07-07 11:15:00 Herald significant 13:30: [id number] medication 00 issue Musculoskel requires Musculoske Resolve 2019-02-06 Ana etal human letal d 07-07 11:15:00 Herald assist to 13:30: [id number] leave home 00 IV IV present IV Resolve 2019-02-06 Rea d 9-30 11:15:00 Lissette [id number] Respiratory dyspnea Respirator Resolve 2017-102019-02-06 Mer[facility]ez present y d 0-16 11:15:00 In[place] 13:35: [id number] 00 Neuro confusion Neuro/Emot Unknown 2017-10 Mer[facility]ez present ion 0-16 Ingra[facility] 13:35: [id number] 00 Neuro depressive Neuro/Emot Unknown 2017-10 Mer[facility]ez feelings ion 0-16 Ingrahm present 13:35: [id number] 00 Safety can be left Safety Resolve 2017-102019-02-06 Mercedez alone for d 0-18 11:15:00 Ingrahm only short 08:10: [id number] periods 00 Integument surgical Integument Resolve 2017-102018-10-30 Shila wound d 1-15 10:10:00 Brian present 08:55: [id number] 00 Elimination GI drain or Eliminatio Resolve 2017-102019-02-06 Shila tube n d 1-15 11:15:00 Brian present 08:55: [id number] 00 Neuro anxiety Neuro/Emot Resolve 2017-102019-02-06 Shila present ion d 1-15 11:15:00 Brian 08:55: [id number] 00 Medication injectable Meds Resolve 2017-102019-02-06 Shila med d 1-15 11:15:00 Brian assistance 08:55: [id number] required 00 Safety fire risk Safety Resolve 2017-102019-02-06 Shila present d 1-15 11:15:00 Brian 13:00: [id number] 00 Elimination urinary Eliminatio Resolve 2019-02-06 Mercedez incontinenc n d - 11:15:00 Ingrahm e 14:20: [id number] 00 Pain frequent Pain Mgmt Resolve 2019-02-06 Mercedez pain d 2-15 11:15:00 Ingrahm 10:15: [id number] 00 Safety risk for Safety Unknown Leanna hospitaliza 02-06 Regeczi tion 15:45: [id number] 00 Respiratory lung sounds Respirator Resolve 2019-04-03 Leanna deficit y d 02-10 10:01:00 Regeczi 13:20: [id number] 00 Respiratory smoker Respirator Resolve 2019-04-03 Leanna y d 4-29 10:01:00 Regeczi 12:10: [id number] 00 Respiratory dyspnea Respirator Resolve 2019-06-05 Mer[facility]ez present y d 5-15 10:30:00 Ingrahm 09:00: [id number] 00 Integument surgical Integument Resolve 2019-03-27 Mer[facility]ez wound d 5-15 09:15:00 Ingrahm present 09:00: [id number] 00 Nutrition enteral Nutrition Resolve 2019-03-27 Mercedez therapy d -15 09:15:00 Ingrahm 09:00: [id number] 00 Elimination urinary Eliminatio Resolve 2019-04-10 Mercedez incontinenc n d 15 09:30:00 Ingrahm e 09:00: [id number] 00 Neuro confusion Neuro/Emot Resolve 2019-11-25 Mercedez present ion d 15 11:10:00 Ingrahm 09:00: [id number] 00 Neuro anxiety Neuro/Emot Resolve 2019-11-25 Mercedez present ion d 515 11:10:00 Ingrahm 09:00: [id number] 00 Neuro depressive Neuro/Emot Resolve 2019-11-25 Mercedez feelings ion d 15 11:10:00 Ingrahm present 09:00: [id number] 00 Neuro impaired Neuro/Emot Resolve 2019-11-25 Mercedez decision-ma ion d 15 11:10:00 [facility] sonali 09:00: [id number] 00 Activity self-care Activity Resolve 2019-05-20 Mercedez deficit d -15 11:15:00 Ingrahm 09:00: [id number] 00 Safety fall risk Safety Resolve 2019-07-17 Mercedez factor d 5-15 10:35:00 Ingrahm present 09:00: [id number] 00 Safety risk for Safety Resolve 2019-07-17 Mercedez hospitaliza d 5-15 10:35:00 Ingrahm tion 09:00: [id number] 00 Medication potential Meds Resolve 2019-03-27 Mercedez clinically d 5-15 09:15:00 Ingrahm significant 09:00: [id number] medication 00 issue Integument surgical Integument Resolve 2019-05-20 Mercedez wound d 7-12 11:15:00 Ingrahm present 10:00: [id number] 00 Nutrition enteral Nutrition Resolve 2019-06-26 Mercedez therapy d 7-12 10:35:00 Ingrahm 10:00: [id number] 00 Respiratory dyspnea Respirator Resolve 2019-08-07 Leanna present y d 06-26 10:25:00 Regeczi 10:35: [id number] 00 Respiratory smoker Respirator Resolve 2019-07-01 Leanna y d 06-26 10:15:00 Regeczi 10:35: [id number] 00 Endo/Han anti-coagul Endo/Han Resolve 2019-07-23 Leanna ation d 06-26 10:15:00 Regeczi therapy 10:35: [id number] 00 Elimination urinary Eliminatio Resolve 2019-07-23 Leanna incontinenc n d 06-26 10:15:00 Regeczi e 10:35: [id number] 00 Elimination nausea/vomi Eliminatio Resolve 2019-07-01 Leanna serranog n d 06-26 10:15:00 Regeczi 10:35: [id number] 00 Integument surgical Integument Resolve 2019-07-23 Mercedez wound d 9-11 10:15:00 Ingrahm present 10:15: [id number] 00 Nutrition enteral Nutrition Resolve 2019-07-23 Mercedez therapy d 07-01 10:15:00 Ingrahm 10:15: [id number] 00 Respiratory smoker Respirator Resolve 2019-07-16 Leanna y d 07-16 10:05:00 Regeczi 10:05: [id number] 00 Elimination diarrhea Eliminatio Resolve 2019-07-23 Leanna n d 07-17 10:15:00 Regeczi 10:35: [id number] 00 Cardio hypertensio Cardiovasc Resolve 2018-102019-07-30 Leanna olivares 0 10:00:00 Regeczi 10:15: [id number] 00 Safety risk for Safety Resolve 2018-102019-07-23 Leanna hospitaliza d 0-03 10:15:00 Regeczi tion 10:15: [id number] 00 24 Hr Diet knowledge/s NT: 24Hr Resolve 2018-102019-07-23 Wen kill Diet d 0-03 15:00:00 [place] deficit - 15:00: [id number] pt 00 Nutritional eating NT: Resolve 2018-102019-07-23 Wen Barrier difficultie Barriers d 0-03 15:00:00 [place] s present 15:00: [id number] 00 Safety risk for Safety Resolve 2018-102019-08-07 Roseline hospitaliza d 0-04 10:25:00 [place] tion 14:00: [id number] 00 Social financial MURIEL: Active 2018-10 [facility] resource Social 0-04 [place] deficit Services 14:00: [id number] 00 Social support MURIEL: Active 2018-10 [facility] deficit Social 0-04 [place] Services 14:00: [id number] 00 Social knowledge/s MURIEL: Active 2018-10 [facility] kill Social 0-04 [place] deficit - Services 14:00: [id number] pt 00 Social financial MURIEL: Unknown 2018-10 [facility] Services resource Social 0-10 In[facility] deficit Services 15:00: [id number] 00 Social knowledge/s MURIEL: Unknown 2018-10 [facility] Services kill Social 0-10 Ingrahm deficit - Services 15:00: [id number] pt 00 Respiratory lung sounds Respirator Resolve 2018-102019-08-07 Leanna deficit y d 0-18 10:25:00 Regeczi 10:25: [id number] 00 Respiratory dyspnea Respirator Resolve 2018-102019-10-23 Mercedez present y d 10-28 10:15:00 Ingrahm 11:00: [id number] 00 Integument surgical Integument Resolve 2018-102019-09-11 Mercedez wound d 10-28 09:50:00 Ingrahm present 11:00: [id number] 00 Nutrition enteral Nutrition Resolve 2018-102019-09-11 Mercedez therapy d 10-28 09:50:00 Ingrahm 11:00: [id number] 00 Elimination urinary Eliminatio Resolve 2018-102019-09-11 Mercedez incontinenc n d 10-28 09:50:00 Ingrahm e 11:00: [id number] 00 Safety fall risk Safety Resolve 2018-102019-09-11 Mercedez factor d 10-28 09:50:00 Ingrahm present 11:00: [id number] 00 Safety risk for Safety Resolve 2018-102019-09-23 Mercedez hospitaliza d 10-28 11:10:00 Ingrahm tion 11:00: [id number] 00 Safety risk for Safety Unknown 2018-10 Mercedez hospitaliza 11-24 Ingrahm tion 15:00: [id number] 00 Cardio hypertensio Cardiovasc Resolve 2019-11-25 Leanna n ular d 10-23 11:10:00 Regeczi 10:15: [id number] 00 Elimination urinary Eliminatio Resolve 2019-11-05 Leanna incontinenc n d 10-23 10:23:00 Regeczi e 10:15: [id number] 00 Elimination constipatio Eliminatio Resolve 2019-11-05 Leanna n n d 10-23 10:23:00 Regeczi 10:15: [id number] 00 Integument surgical Integument Resolve 2019-11-19 Mercedez wound d 10-28 10:50:00 Ingrahm present 10:50: [id number] 00 Nutrition enteral Nutrition Resolve 2019-11-25 Mercedez therapy d 10-28 11:10:00 Ingrahm 10:50: [id number] 00 Elimination UTI within Eliminatio Resolve 2019-11-05 Mercedez past 14 n d 10-28 10:23:00 Ingrahm days 10:50: [id number] 00 Activity self-care Activity Resolve 2019-11-05 Mercedez deficit d 10-28 10:23:00 Ingrahm 10:50: [id number] 00 Safety fall risk Safety Resolve 2019-11-05 Mercedez factor d 10-28 10:23:00 Ingrahm present 10:50: [id number] 00 Safety risk for Safety Resolve 2019-11-05 Mercedez hospitaliza d 10-28 10:23:00 Ingrahm tion 10:50: [id number] 00 Allergies, Adverse Reactions, Alerts Allergy Allergy Status Severity Reaction(s) Onset Inactive Treating Comments Name Type Date Date Clinician latex Base Active Unknown Hives [facility] [id number] amoxicillin Base Active Unknown Anaphylaxis [facility]redient 07[facility] [id number] bee venom Base Active Unknown Anaphylaxis [facility] protein [facility]redient 07[facility] [id number] Botox Medication Active Unknown Anaphylaxis Mercedez Name ID 07-07 [facility] [id number] contrast Unknown Active Unknown Anaphylaxis Mercedez dye 07-07 [facility] [id number] Penicillins Allergen Active Unknown Anaphylaxis Mer[facility]ez Group 07-07 [facility] [id number] shellfish Base Active Unknown Anaphylaxis Mercedez derived Ingredient 07-07 [facility] [id number] adhesive Base Active Unknown Hives Mercedez tape Ingredient 07-07 [facility] [id number] nsaids Unknown Active Unknown stomach issues Mercedez 07-07 [facility] [id number] oxycodone Base Active Unknown swelling Mercedez Ingredient 07-07 [facility] [id number] Betadine Medication Active Unknown Rash Mercedez Name ID 07-07 [facility] [id number] Hibiclens Medication Active Unknown Rash Mercedez Name ID 07-07 [facility] [id number] evironmenta Unknown Active Unknown hay fever, Rea l/seasonal watery eye, 07-07 Guidelli itching, [id number] sneeze, congestion povidone-io Base Active Unknown itching Rea dine Ingredient 07-07 Guidelli [id number] Iodine and Allergen Active Unknown Anaphylaxis Rea Iodide Group 07-07 Guidelli Containing [id number] Products albumin Base Active Unknown Anaphylaxis Rea colloid, Ingredient 07-07 Guidelli human [id number] fentanyl Base Active Unknown hallucinations Rea Ingredient 07-07 Guidelli [id number] Medications Ordered Filled Start Stop Current Ordering [...] Blegen Unknown Unknown 12,000-38,0 12,000-38,0 5-15 Tashia [facility] 00-60,000 00-60,000 e unit unit capsule,del capsule,del [...] Blegen Unknown Unknown Respimat Respimat 0-07 10-21 MD,Tashai 2.5 2.5 e mcg/actuati mcg/actuati on solution [...] Observation Time Observation Value Comments SYSTOLIC mm[Hg] 2019-12-02 18:10:21 150 mm[Hg] mm[Hg] Method: Sit SYSTOLIC mm[Hg] 2018-11-27 18:04:11 142 mm[Hg] mm[Hg] Method: Stand SYSTOLIC mm[Hg] 2019-06-27 18:07:43 122 mm[Hg] mm[Hg] Method: Lie DIASTOLIC mm[Hg] 2019-12-02 18:10:21 86 mm[Hg] mm[Hg] Method: Sit DIASTOLIC mm[Hg] 2018-11-27 18:04:11 84 mm[Hg] mm[Hg] Method: Stand DIASTOLIC mm[Hg] 2019-06-27 18:07:43 50 mm[Hg] mm[Hg] Method: Lie PULSE 2019-12-02 18:10:21 76 /min /min RESP RATE 2019-11-25 18:10:14 16 /min /min TEMP 2019-12-02 18:10:21 98.6 [degF] Procedures This patient has no known procedures. Results This patient has no known results.
--- OUTSIDE RECORDS SUMMARY | 2019-12-19 17:46 | XMS REPORT ---
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/o artery w/o ang pctrs ang pctrs Encounter Encounter Diagnosis Active Mercedez for for 07-07 Ingrahm attention attention [id number] to to gastrostomy gastrostomy Gastro-esop Gastro-esop Diagnosis Active Mercedez hageal hageal 07-07 Ingrahm reflux reflux [id number] disease disease without without esophagitis esophagitis Other Other Diagnosis Active Mercedez specified specified 07-07 Ingrahm arthritis, arthritis, [id number] unspecified unspecified site site Essential Essential Diagnosis Active Mercedez (primary) (primary) 07-07 Ingrahm hypertensio hypertensio [id number] 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 use of [id number] anticoagula anticoagula nts nts Nicotine Nicotine Diagnosis Active Mercedez dependence, dependence, Ingrahm cigarettes, cigarettes, [id number] uncomplicat uncomplicat ed ed Personal Personal Diagnosis Active Mercedez history of history of Ingrahm malignant malignant [id number] neoplasm of neoplasm of breast breast Prsnl hx of Prsnl hx of Diagnosis Active Mercedez TIA (TIA), TIA (TIA), Ingrahm and cereb and cereb [id number] infrc w/o infrc w/o resid resid deficits deficits Pain frequent Pain Mgmt Resolve 2018-11-26 Ana pain d 9 16:15:00 [place] 13:30: [id number] 00 Pain severe pain Pain Mgmt Resolve 2018-11-26 Ana d 9 16:15:00 [place] 13:30: [id number] 00 Endo/Ahn anti-coagul Endo/Han Resolve 2019-02-06 Ana ation d 07-07 11:15:00 [place] therapy 13:30: [id number] 00 Integument surgical Integument Resolve 2018-08-05 Rea wound d 07-07 13:35:00 Guidelli present 13:30: [id number] 00 Nutrition nutritional Nutrition Resolve 2019-01-02 Ana restriction d 07-07 10:00:00 [place] s 13:30: [id number] 00 Nutrition changing Nutrition Resolve 2019-01-02 Ana weight/appe d 07-07 10:00:00 [place] tite 13:30: [id number] 00 Nutrition nutritional Nutrition Resolve 2019-01-02 Ana risk d 07-07 10:00:00 [place] 13:30: [id number] 00 Nutrition enteral Nutrition Resolve 2019-02-06 Ana therapy d 07-07 11:15:00 [place] 13:30: [id number] 00 Safety structural Safety Resolve 2019-02-06 Ana barriers d 07-07 11:15:00 [place] present 13:30: [id number] 00 Safety fall risk Safety Resolve 2019-02-06 Ana factor d 07-07 11:15:00 [place] present 13:30: [id number] 00 Safety risk for Safety Resolve 2019-02-06 Ana hospitaliza d 07-07 11:15:00 [place] tion 13:30: [id number] 00 Medication potential Meds Resolve 2019-02-06 Ana clinically d 07-07 11:15:00 [place] significant 13:30: [id number] medication 00 issue Musculoskel requires Musculoske Resolve 2019-02-06 Ana etal human letal d 07-07 11:15:00 [place] assist to 13:30: [id number] leave home 00 IV IV present IV Resolve 2019-02-06 Rea d 9-30 11:15:00 Lissette [id number] Respiratory dyspnea Respirator Resolve 2017-102019-02-06 Mercedez present y d 0-16 11:15:00 In[place] 13:35: [id number] 00 Neuro confusion Neuro/Emot Resolve 2017-102019-02-06 Mercedez present ion d 0-16 11:15:00 [place] 13:35: [id number] 00 Neuro depressive Neuro/Emot Resolve 2017-102019-02-06 Mercedez feelings ion d 0-16 11:15:00 Ingrahm present 13:35: [id number] 00 Safety can be left Safety Resolve 2017-102019-02-06 Mercedez alone for d 0-18 11:15:00 Ingrahm only short 08:10: [id number] periods 00 Integument surgical Integument Resolve 2017-102018-10-30 Shila wound d 1-15 10:10:00 Brian present 08:55: [id number] 00 Elimination GI drain or Eliminatio Resolve 2017-102019-02-06 Shila tube n d 1-15 11:15:00 Brian present 08:55: [id number] 00 Neuro anxiety Neuro/Emot Resolve 2017-102019-02-06 Shila present ion d 1-15 11:15:00 Brian 08:55: [id number] 00 Medication injectable Meds Resolve 2017-102019-02-06 Shila med d 1-15 11:15:00 Brian assistance 08:55: [id number] required 00 Safety fire risk Safety Resolve 2017-102019-02-06 Shila present d 1-15 11:15:00 Brian 13:00: [id number] 00 Elimination urinary Eliminatio Resolve 2019-02-06 Mercedez incontinenc n d 1- 11:15:00 Ingrahm e 14:20: [id number] 00 Pain frequent Pain Mgmt Resolve 2019-02-06 Mercedez pain d 2-15 11:15:00 Ingrahm 10:15: [id number] 00 Safety risk for Safety Unknown Leanna denis 02-06 Regeczi tion 15:45: [id number] 00 Respiratory lung sounds Respirator Resolve 2019-04-03 Leanna deficit y d 4-23 10:01:00 Regeczi 13:20: [id number] 00 Respiratory smoker Respirator Resolve 2019-04-03 Leanna y d 4-29 10:01:00 Regeczi 12:10: [id number] 00 Respiratory dyspnea Respirator Resolve 2019-06-05 Mercedez present y d 5-15 10:30:00 Ingrahm 09:00: [id number] 00 Integument surgical Integument Resolve 2019-03-27 Mercedez wound d 5-15 09:15:00 Ingrahm present 09:00: [id number] 00 Nutrition enteral Nutrition Resolve 2019-03-27 Mercedez therapy d 5-15 09:15:00 Ingrahm 09:00: [id number] 00 Elimination urinary Eliminatio Resolve 2019-04-10 Mercedez incontinenc n d 5-15 09:30:00 Ingrahm e 09:00: [id number] 00 Neuro confusion Neuro/Emot Active Mercedez present ion 5-15 Ingrahm 09:00: [id number] 00 Neuro anxiety Neuro/Emot Active 2018- Mercedez present ion 5-15 Ingrahm 09:00: [id number] 00 Neuro depressive Neuro/Emot Active 2018- Mercedez feelings ion 5-15 Ingrahm present 09:00: [id number] 00 Neuro impaired Neuro/Emot Active 2018- Mercedez decision-ma ion 5-15 Ingrahm sonali 09:00: [id number] 00 Activity self-care Activity Resolve 2019-05-20 Mercedez deficit d 5-15 11:15:00 Ingrahm 09:00: [id number] 00 Safety fall risk Safety Resolve 2019-07-17 Mercedez factor d 5-15 10:35:00 Ingrahm present 09:00: [id number] 00 Safety risk for Safety Resolve 2019-07-17 Mercedez hospitaliza d 5-15 10:35:00 Ingrahm tion 09:00: [id number] 00 Medication potential Meds Resolve 2019-03-27 Mercedez clinically d 5-15 09:15:00 Ingrahm significant 09:00: [id number] medication 00 issue Integument surgical Integument Resolve 2019-05-20 Mercedez wound d 7-12 11:15:00 Ingrahm present 10:00: [id number] 00 Nutrition enteral Nutrition Resolve 2019-06-26 Mercedez therapy d 7-12 10:35:00 Ingrahm 10:00: [id number] 00 Respiratory dyspnea Respirator Resolve 2019-08-07 Leanna present y d 06-26 10:25:00 Regeczi 10:35: [id number] 00 Respiratory smoker Respirator Resolve 2019-07-01 Leanna y d 06-26 10:15:00 Regeczi 10:35: [id number] 00 Endo/Han anti-coagul Endo/Han Resolve 2019-07-23 Leanna ation d 06-26 10:15:00 Regeczi therapy 10:35: [id number] 00 Elimination urinary Eliminatio Resolve 2019-07-23 Leanna incontinenc n d 06-26 10:15:00 Regeczi e 10:35: [id number] 00 Elimination nausea/vomi Eliminatio Resolve 2019-07-01 Leanna ting n d 06-26 10:15:00 Regeczi 10:35: [id number] 00 Integument surgical Integument Resolve 2019-07-23 Mercedez wound d 9-11 10:15:00 Ingrahm present 10:15: [id number] 00 Nutrition enteral Nutrition Resolve 2019-07-23 Mercedez therapy d 9 10:15:00 Ingrahm 10:15: [id number] 00 Respiratory smoker Respirator Resolve 2019-07-16 Leanna y d 07-16 10:05:00 Regeczi 10:05: [id number] 00 Elimination diarrhea Eliminatio Resolve 2019-07-23 Leanna n d 07-17 10:15:00 Regeczi 10:35: [id number] 00 Cardio hypertensio Cardiovasc Resolve 2018-102019-07-30 Leanna eastman d 003 10:00:00 Regeczi 10:15: [id number] 00 Safety risk for Safety Resolve 2018-102019-07-23 Leanna hospitaliza d 0-03 10:15:00 Regeczi tion 10:15: [id number] 00 24 Hr Diet knowledge/s NT: 24Hr Resolve 2018-102019-07-23 Wen kill Diet d 0-03 15:00:00 Zebulon deficit - 15:00: [id number] pt 00 Nutritional eating NT: Resolve 2018-102019-07-23 Wen Barrier difficultie Barriers d 0-03 15:00:00 Zebulon s present 15:00: [id number] Safety risk for Safety Resolve 2018-102019-08-07 Roseline hospitaliza d 0-04 10:25:00 [place] tion 14:00: [id number] 00 Social financial MURIEL: Active 2018-10 [facility] Services resource Social 0-04 [place] deficit Services 14:00: [id number] 00 Social support MURIEL: Active 2018-10 [facility] deficit Social 0-04 [place] Services 14:00: [id number] 00 Social knowledge/s MURIEL: Active 2018-10 [facility] kill Social 0-04 [place] deficit - Services 14:00: [id number] pt 00 Social financial MURIEL: Unknown 2018-10 [facility] Services resource Social 0-10 Ingrahm deficit Services 15:00: [id number] 00 Social knowledge/s MURIEL: Unknown 2018-10 [facility] Services kill Social 0-10 Ingrahm deficit - Services 15:00: [id number] pt 00 Respiratory lung sounds Respirator Resolve 2018-102019-08-07 Leanna deficit y d 0-18 10:25:00 Regeczi 10:25: [id number] 00 Respiratory dyspnea Respirator Resolve 2018-102019-10-23 Mercedez present y d 10-28 10:15:00 Ingrahm 11:00: [id number] 00 Integument surgical Integument Resolve 2018-102019-09-11 Mercedez wound d 10-28 09:50:00 Ingrahm present 11:00: [id number] 00 Nutrition enteral Nutrition Resolve 2018-102019-09-11 Mercedez therapy d 10-28 09:50:00 Ingrahm 11:00: [id number] 00 Elimination urinary Eliminatio Resolve 2018-102019-09-11 Mercedez incontinenc n d 10-28 09:50:00 Ingrahm e 11:00: [id number] 00 Safety fall risk Safety Resolve 2018-102019-09-11 Mercedez factor d 10-28 09:50:00 Ingrahm present 11:00: [id number] 00 Safety risk for Safety Resolve 2018-102019-09-23 Mercedez hospitaliza d 10-28 11:10:00 Ingrahm tion 11:00: [id number] 00 Safety risk for Safety Unknown 2018-10 Mercedez hospitaliza 11-24 Ingrahm tion 15:00: [id number] 00 Cardio hypertensio Cardiovasc Active Leanna n ular 10-23 Regeczi 10:15: [id number] 00 Elimination urinary Eliminatio Resolve 2019-11-05 Leanna incontinenc n d 10-23 10:23:00 Regeczi e 10:15: [id number] 00 Elimination constipatio Eliminatio Resolve 2019-11-05 Leanna n n d 10-23 10:23:00 Regeczi 10:15: [id number] 00 Integument surgical Integument Resolve 2019-11-19 Mercedez wound d 10-28 10:50:00 Ingrahm present 10:50: [id number] 00 Nutrition enteral Nutrition Active Mercedez therapy 10-28 Ingrahm 10:50: [id number] 00 Elimination UTI within Eliminatio Resolve 2019-11-05 Mercedez past 14 n d 10-28 10:23:00 Ingrahm days 10:50: [id number] 00 Activity self-care Activity Resolve 2019-11-05 Mercedez deficit d 10-28 10:23:00 Ingrahm 10:50: [id number] 00 Safety fall risk Safety Resolve 2019-11-05 Mercedez factor d 10-28 10:23:00 Ingrahm present 10:50: [id number] 00 Safety risk for Safety Resolve 2019-11-05 Mercedez hospitaliza d 10-28 10:23:00 Ingrahm tion 10:50: [id number] 00 Allergies, Adverse Reactions, Alerts Allergy Allergy Status Severity Reaction(s) Onset Inactive Treating Comments Name Type Date Date Clinician latex Base Active Unknown Hives [id number] amox[facility] Base Active Unknown Anaphylaxis [facility] [id number] bee venom Base Active Unknown Anaphylaxis Mer[facility]ez protein Ingredient 07-07 Ingrm (honey bee) [id number] Botox Medication Active Unknown Anaphylaxis Mercedez Name ID 07-07 [facility] [id number] contrast Unknown Active Unknown Anaphylaxis [facility] [id number] Penicillins Allergen Active Unknown Anaphylaxis [facility] [id number] shellfish Base Active Unknown Anaphylaxis [facility] derived Ingredient 07-[facility] [id number] adhesive Base Active Unknown Hives [facility] tape [facility]ient [facility] [id number] nsaids Unknown Active Unknown stomach issues [facility] [id number] oxycodone Base Active Unknown swelling Mercedez Ingredient 07-07 [facility] [id number] Betadine Medication Active Unknown Rash Mercedez Name ID 07-07 [facility] [id number] Hibiclens Medication Active Unknown Rash Mercedez Name ID 07-07 [facility] [id number] evironmenta Unknown Active Unknown hay fever, Rea l/seasonal watery eye, 07-07 Guidelli itching, [id number] sneeze, congestion povidone-io Base Active Unknown itching Rea dine Ingredient 07-07 Guidelli [id number] Iodine and Allergen Active Unknown Anaphylaxis Rea Iodide Group 07-07 Guidelli Containing [id number] Products albumin Base Active Unknown Anaphylaxis Rea colloid, Ingredient 07-07 Guidelli human [id number] fentanyl Base Active Unknown hallucinations Rea Ingredient 07-07 Guidelli [id number] Medications Ordered Filled Start Stop Current Ordering Indication Dosage Frequency Signature Comments Components Medication Medication Date Date Medication? Clinician (SIG) Name Name Jevity 1.5 Jevity 1.5 2019- No Blegen Unknown Unknown Pineda 0.06 Pineda 0.06 07-07 01-06 Tashia FINCH gram-1.5 gram-1.5 e kcal/mL kcal/mL oral liquid oral liquid cyanocobala cyanocobala 2018-0 2018- No Blegen Unknown Unknown min (vit min [...] mg tablet 07-07 Tashia FINCH Normal Normal 2019- No Blegen Unknown Unknown [...] ne 4 mg ne 4 mg 12-23 Douglas FINCH tablet tablet levoFLOXaci levoFLOXaci 2018- No Blegen [...] Blegen Unknown Unknown 10 mg 10 mg 1- ,Tashia tablet tablet e clopidogrel clopidogrel No Blegen Unknown Unknown 75 mg 75 mg 1- ,Tashia tablet tablet e diphenhydrA diphenhydrA 2018- [...] Unknown Unknown 60 mg 60 mg 4-24 MD,Douglas tablet,exte tablet,exte nded nded release release magnesium [...] Unknown Unknown tartrate 25 tartrate 25 0-03 - Tashia FINCH mg tablet mg tablet [...] Blegen Unknown Unknown tartrate 25 tartrate 25 1- Tashia FINCH mg tablet mg tablet e [...] 0.05 % eye 0.05 % eye - Tashia FINCH drops drops e ketotifen ketotifen Yes Blegen Unknown Unknown 0.025 % 0.025 % - Tashia FINCH (0.035 %) (0.035 %) e eye drops eye drops ciprofloxac ciprofloxac 2019- Yes Blegen Unknown Unknown in 500 mg in 500 mg 10-28- ,Tashia tablet tablet e azelastine azelastine Yes Blegen Unknown Unknown 137 mcg 137 mcg - Tashia FINCH (0.1 %) (0.1 %) e nasal spray nasal spray aerosol aerosol 0.9% normal 0.9% normal Yes Blegen Unknown Unknown saline saline 2-04 Tashia FINCH 1000ml with 1000ml with e 20meq of 20meq of KCL IV to KCL IV to infuse over infuse over 4 hours 1x 4 hours 1x a week via a week via gravity gravity 250cc/hr 250cc/hr Normal Normal 2019-0 Yes Blegen Unknown Unknown Saline Saline 2-04 Tashia FINCH Flush 0.9 % Flush 0.9 % e injection injection syringe syringe heparin heparin Yes Blegen Unknown Unknown Lock Flush Lock Flush 2-04 Tashia FINCH (Porcine) (Porcine) e (PF) 100 (PF) 100 unit/mL unit/mL intravenous intravenous syringe syringe Vital Signs Vital Name Observation Time Observation Value Comments SYSTOLIC mm[Hg] 2019-11-19 18:10:08 160 mm[Hg] mm[Hg] Method: Sit SYSTOLIC mm[Hg] 2018-11-27 18:04:11 142 mm[Hg] mm[Hg] Method: Stand SYSTOLIC mm[Hg] 2019-06-27 18:07:43 122 mm[Hg] mm[Hg] Method: Lie DIASTOLIC mm[Hg] 2019-11-19 18:10:08 90 mm[Hg] mm[Hg] Method: Sit DIASTOLIC mm[Hg] 2018-11-27 18:04:11 84 mm[Hg] mm[Hg] Method: Stand DIASTOLIC mm[Hg] 2019-06-27 18:07:43 50 mm[Hg] mm[Hg] Method: Lie PULSE 2019-11-19 18:10:08 72 /min /min RESP RATE 2019-11-19 18:10:08 24 /min /min TEMP 2019-11-19 18:10:08 98.9 [degF] Procedures This patient has no known procedures. Results This patient has no known results.
--- OUTSIDE RECORDS SUMMARY | 2019-12-19 17:46 | XMS REPORT ---
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/o artery w/o ang pctrs ang pctrs Encounter Encounter Diagnosis Active Mercedez for for 07-07 Ingrahm attention attention [id number] to to gastrostomy gastrostomy Gastro-esop Gastro-esop Diagnosis Active Mercedez hageal hageal 07-07 Ingrahm reflux reflux [id number] disease disease without without esophagitis esophagitis Other Other Diagnosis Active Mercedez specified specified 07-07 Ingrahm arthritis, arthritis, [id number] unspecified unspecified site site Essential Essential Diagnosis Active [facility]ez (primary) (primary) 07-07 Ingrahm hypertensio hypertensio 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 [facility]ez (current) (current) Ingrahm use of use of [id number] anticoagula anticoagula nts nts Nicotine Nicotine Diagnosis Active Mercedez dependence, dependence, Ingrahm cigarettes, cigarettes, [id number] uncomplicat uncomplicat ed ed Personal Personal Diagnosis Active Mer[facility]ez history of history of Ingrahm malignant malignant [id number] neoplasm of neoplasm of breast breast Prsnl hx of Prsnl hx of Diagnosis Active Mercedez TIA (TIA), TIA (TIA), Ingrahm and cereb and cereb [id number] infrc w/o infrc w/o resid resid deficits deficits Pain frequent Pain Mgmt Resolve 2018-11-26 Ana pain d 9 16:15:00 Acme 13:30: [id number] 00 Pain severe pain Pain Mgmt Resolve 2018-11-26 Ana d 9 16:15:00 Acme 13:30: [id number] 00 Endo/Han anti-coagul Endo/Han Resolve 2019-02-06 Ana ation d 07-07 11:15:00 Acme therapy 13:30: [id number] 00 Integument surgical Integument Resolve 2018-08-05 Rea wound d 07-07 13:35:00 Guidelli present 13:30: [id number] 00 Nutrition nutritional Nutrition Resolve 2019-01-02 Ana restriction d 07-07 10:00:00 Acme s 13:30: [id number] 00 Nutrition changing Nutrition Resolve 2019-01-02 Ana weight/appe d 07-07 10:00:00 Acme tite 13:30: [id number] 00 Nutrition nutritional Nutrition Resolve 2019-01-02 Ana risk d 07-07 10:00:00 Acme 13:30: [id number] 00 Nutrition enteral Nutrition Resolve 2019-02-06 Ana therapy d 07-07 11:15:00 Acme 13:30: [id number] 00 Safety structural Safety Resolve 2019-02-06 Ana barriers d 07-07 11:15:00 Acme present 13:30: [id number] 00 Safety fall risk Safety Resolve 2019-02-06 Ana factor d 07-07 11:15:00 Acme present 13:30: [id number] 00 Safety risk for Safety Resolve 2019-02-06 Ana hospitaliza d 07-07 11:15:00 Acme tion 13:30: [id number] 00 Medication potential Meds Resolve 2019-02-06 Ana clinically d 07-07 11:15:00 Acme significant 13:30: [id number] medication 00 issue Musculoskel requires Musculoske Resolve 2019-02-06 Ana etal human letal d 07-07 11:15:00 Acme assist to 13:30: [id number] leave home 00 IV IV present IV Resolve 2019-02-06 Rea d 9-30 11:15:00 Lissette [id number] Respiratory dyspnea Respirator Resolve 2017-102019-02-06 Mercedez present y d 0-16 11:15:00 Ingrahm 13:35: [id number] 00 Neuro confusion Neuro/Emot Unknown 2017-10 Mercedez present ion 0-16 Ingrahm 13:35: [id number] 00 Neuro depressive Neuro/Emot Unknown 2017-10 Mercedez feelings ion 0-16 Ingrahm present 13:35: [id number] 00 Safety can be left Safety Resolve 2017-102019-02-06 Mercedez alone for d 0-18 11:15:00 Ingrahm only short 08:10: [id number] periods 00 Integument surgical Integument Resolve 2017-102018-10-30 Shila wound d 1-15 10:10:00 Brian present 08:55: [id number] 00 Elimination GI drain or Eliminatio Resolve 2017-102019-02-06 Shila tube n d 1-15 11:15:00 Brian present 08:55: [id number] 00 Neuro anxiety Neuro/Emot Resolve 2017-102019-02-06 Shila present ion d 1-15 11:15:00 Brian 08:55: [id number] 00 Medication injectable Meds Resolve 2017-102019-02-06 Shila med d 1-15 11:15:00 Brian assistance 08:55: [id number] required 00 Safety fire risk Safety Resolve 2017-102019-02-06 Shila present d 1-15 11:15:00 Brian 13:00: [id number] 00 Elimination urinary Eliminatio Resolve 2019-02-06 Mercedez incontinenc n d - 11:15:00 Ingrahm e 14:20: [id number] 00 Pain frequent Pain Mgmt Resolve 2019-02-06 Mercedez pain d 2-15 11:15:00 Ingrahm 10:15: [id number] 00 Safety risk for Safety Unknown Leanna hospitaliza 02-06 Regeczi tion 15:45: [id number] 00 Respiratory lung sounds Respirator Resolve 2019-04-03 Leanna deficit y d 02-10 10:01:00 Regeczi 13:20: [id number] 00 Respiratory smoker Respirator Resolve 2019-04-03 Leanna y d 4-29 10:01:00 Regeczi 12:10: [id number] 00 Respiratory dyspnea Respirator Resolve 2019-06-05 Mercedez present y d 5-15 10:30:00 Ingrahm 09:00: [id number] 00 Integument surgical Integument Resolve 2019-03-27 Mercedez wound d 5-15 09:15:00 Ingrahm present 09:00: [id number] 00 Nutrition enteral Nutrition Resolve 2019-03-27 Mercedez therapy d -15 09:15:00 Ingrahm 09:00: [id number] 00 Elimination urinary Eliminatio Resolve 2019-04-10 Mercedez incontinenc n d 15 09:30:00 Ingrahm e 09:00: [id number] 00 Neuro confusion Neuro/Emot Resolve 2019-11-25 Mercedez present ion d 15 11:10:00 Ingrahm 09:00: [id number] 00 Neuro anxiety Neuro/Emot Resolve 2019-11-25 Mercedez present ion d 515 11:10:00 Ingrahm 09:00: [id number] 00 Neuro depressive Neuro/Emot Resolve 2019-11-25 Mercedez feelings ion d 15 11:10:00 Ingrahm present 09:00: [id number] 00 Neuro impaired Neuro/Emot Resolve 2019-11-25 Mercedez decision-ma ion d 15 11:10:00 [facility] sonali 09:00: [id number] 00 Activity self-care Activity Resolve 2019-05-20 Mercedez deficit d -15 11:15:00 Ingrahm 09:00: [id number] 00 Safety fall risk Safety Resolve 2019-07-17 Mercedez factor d 5-15 10:35:00 Ingrahm present 09:00: [id number] 00 Safety risk for Safety Resolve 2019-07-17 Mercedez hospitaliza d 5-15 10:35:00 Ingrahm tion 09:00: [id number] 00 Medication potential Meds Resolve 2019-03-27 Mercedez clinically d 5-15 09:15:00 Ingrahm significant 09:00: [id number] medication 00 issue Integument surgical Integument Resolve 2019-05-20 Mercedez wound d 7-12 11:15:00 Ingrahm present 10:00: [id number] 00 Nutrition enteral Nutrition Resolve 2019-06-26 Mercedez therapy d 7-12 10:35:00 Ingrahm 10:00: [id number] 00 Respiratory dyspnea Respirator Resolve 2019-08-07 Leanna present y d 06-26 10:25:00 Regeczi 10:35: [id number] 00 Respiratory smoker Respirator Resolve 2019-07-01 Leanna y d 06-26 10:15:00 Regeczi 10:35: [id number] 00 Endo/Han anti-coagul Endo/Han Resolve 2019-07-23 Leanna ation d 06-26 10:15:00 Regeczi therapy 10:35: [id number] 00 Elimination urinary Eliminatio Resolve 2019-07-23 Leanna incontinenc n d 06-26 10:15:00 Regeczi e 10:35: [id number] 00 Elimination nausea/vomi Eliminatio Resolve 2019-07-01 Leanna serranog n d 06-26 10:15:00 Regeczi 10:35: [id number] 00 Integument surgical Integument Resolve 2019-07-23 Mercedez wound d 9-11 10:15:00 Ingrahm present 10:15: [id number] 00 Nutrition enteral Nutrition Resolve 2019-07-23 Mercedez therapy d 07-01 10:15:00 Ingrahm 10:15: [id number] 00 Respiratory smoker Respirator Resolve 2019-07-16 Leanna y d 07-16 10:05:00 Regeczi 10:05: [id number] 00 Elimination diarrhea Eliminatio Resolve 2019-07-23 Leanna n d 07-17 10:15:00 Regeczi 10:35: [id number] 00 Cardio hypertensio Cardiovasc Resolve 2018-102019-07-30 Leanna olivares 0 10:00:00 Regeczi 10:15: [id number] 00 Safety risk for Safety Resolve 2018-102019-07-23 Leanna hospitaliza d 0-03 10:15:00 Regeczi tion 10:15: [id number] 00 24 Hr Diet knowledge/s NT: 24Hr Resolve 2018-102019-07-23 Wen kill Diet d 0-03 15:00:00 [employer] deficit - 15:00: [id number] pt 00 Nutritional eating NT: Resolve 2018-102019-07-23 Wen Barrier difficultie Barriers d 0-03 15:00:00 [employer] s present 15:00: [id number] 00 Safety risk for Safety Resolve 2018-102019-08-07 Roseline hospitaliza d 0-04 10:25:00 [place] tion 14:00: [id number] 00 Social financial MURIEL: Active 2018-10 Ros[facility] Services resource Social 0-04 [place] deficit Services 14:00: [id number] 00 Social support MURIEL: Active 2018-10 [facility] deficit Social 0-04 [place] Services 14:00: [id number] 00 Social knowledge/s MURIEL: Active 2018-10 [facility] kill Social 0-04 [place] deficit - Services 14:00: [id number] pt 00 Social financial MURIEL: Unknown 2018-10 [facility] Services resource Social 0-10 Ingrahm deficit Services 15:00: [id number] 00 Social knowledge/s MURIEL: Unknown 2018-10 [facility] Services kill Social 0-10 Ingrahm deficit - Services 15:00: [id number] pt 00 Respiratory lung sounds Respirator Resolve 2018-102019-08-07 Leanna deficit y d 0-18 10:25:00 Regeczi 10:25: [id number] 00 Respiratory dyspnea Respirator Resolve 2018-102019-10-23 Mercedez present y d 10-28 10:15:00 Ingrahm 11:00: [id number] 00 Integument surgical Integument Resolve 2018-102019-09-11 Mercedez wound d 10-28 09:50:00 Ingrahm present 11:00: [id number] 00 Nutrition enteral Nutrition Resolve 2018-102019-09-11 Mercedez therapy d 10-28 09:50:00 Ingrahm 11:00: [id number] 00 Elimination urinary Eliminatio Resolve 2018-102019-09-11 Mercedez incontinenc n d 10-28 09:50:00 Ingrahm e 11:00: [id number] 00 Safety fall risk Safety Resolve 2018-102019-09-11 Mercedez factor d 10-28 09:50:00 Ingrahm present 11:00: [id number] 00 Safety risk for Safety Resolve 2018-102019-09-23 Mercedez hospitaliza d 10-28 11:10:00 Ingrahm tion 11:00: [id number] 00 Safety risk for Safety Unknown 2018-10 Mercedez hospitaliza 11-24 Ingrahm tion 15:00: [id number] 00 Cardio hypertensio Cardiovasc Resolve 2019-11-25 Leanna n ular d 10-23 11:10:00 Regeczi 10:15: [id number] 00 Elimination urinary Eliminatio Resolve 2019-11-05 Leanna incontinenc n d 10-23 10:23:00 Regeczi e 10:15: [id number] 00 Elimination constipatio Eliminatio Resolve 2019-11-05 Leanna n n d 10-23 10:23:00 Regeczi 10:15: [id number] 00 Integument surgical Integument Resolve 2019-11-19 Mercedez wound d 10-28 10:50:00 Ingrahm present 10:50: [id number] 00 Nutrition enteral Nutrition Resolve 2019-11-25 Mercedez therapy d 10-28 11:10:00 Ingrahm 10:50: [id number] 00 Elimination UTI within Eliminatio Resolve 2019-11-05 Mercedez past 14 n d 10-28 10:23:00 Ingrahm days 10:50: [id number] 00 Activity self-care Activity Resolve 2019-11-05 Mercedez deficit d 10-28 10:23:00 Ingrahm 10:50: [id number] 00 Safety fall risk Safety Resolve 2019-11-05 Mercedez factor d 10-28 10:23:00 Ingrahm present 10:50: [id number] 00 Safety risk for Safety Resolve 2019-11-05 Mercedez hospitaliza d 10-28 10:23:00 Ingrahm tion 10:50: [id number] 00 Safety risk for Safety Active Roseline denis 2-12 [facility] tion 11:00: [id number] 00 Allergies, Adverse Reactions, Alerts Allergy Allergy Status Severity Reaction(s) Onset Inactive Treating Comments Name Type Date Date Clinician latex Base Active Unknown Hives Mercedez Ingredient 07-07 Ingrahm [id number] amoxicillin Base Active Unknown Anaphylaxis Mercedez Ingredient 07-07 Ingrahm [id number] bee venom Base Active Unknown Anaphylaxis Mercedez protein Ingredient 07-07 Ingrahm (honey bee) [id number] Botox Medication Active Unknown Anaphylaxis [facility] 07[facility]07 [id number] contrast Unknown Active Unknown Anaphylaxis Mercedez dye 07-07 Ingrm [id number] Penicillins Allergen Active Unknown Anaphylaxis [facility] Group 07-07 Ingrm [id number] shellfish Base Active Unknown Anaphylaxis Mercedez derived Ingredient 07-07 [facility] [id number] adhesive Base Active Unknown Hives Mercedez tape Ingredient 07-07 Ingrm [id number] nsaids Unknown Active Unknown stomach issues 2017- Mercedez 07-07 Ingrm [id number] oxycodone Base Active Unknown swelling Mercedez Ingredient 07-07 Ingrm [id number] Betadine Medication Active Unknown Rash 2017- [facility] [id number] Hibiclens Medication Active Unknown Rash Mercedez Name ID 07-07 [facility] [id number] evironmenta Unknown Active Unknown hay fever, 2018 Rea l/seasonal watery eye, 07-07 Guidelli itching, [id number] sneeze, congestion povidone-io Base Active Unknown itching Rea dine Ingredient 07-07 Guidelli [id number] Iodine and Allergen Active Unknown Anaphylaxis Rea Iodide Group 07-07 Guidelli Containing [id number] Products albumin Base Active Unknown Anaphylaxis Rea colloid, Ingredient 07-07 Guidelli human [id number] fentanyl Base Active Unknown hallucinations Rea Ingredient 07-07 Guidelli [id number] Medications Ordered Filled Start Stop Current Ordering [...] No Blegen Unknown Unknown concentrate concentrate 07-07 Tashai FINCH 100 mg/5 mL 100 mg/5 mL [...] No Blegen Unknown Unknown Tears Tears 11-18 Tasiha FINCH (polyvinyl (polyvinyl e alcohol) alcohol) 1.4 [...] Unknown Unknown 10 mg 10 mg 10-26 ,aTshia tablet tablet e clopidogrel clopidogrel No Blegen [...] 2019-06-27 18:07:43 50 mm[Hg] mm[Hg] Method: Lie RESP RATE 2019-11-25 18:10:14 16 /min /min Procedures This patient has no known procedures. Results This patient has no known results.
--- OUTSIDE RECORDS SUMMARY | 2019-12-19 17:46 | XMS REPORT ---
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 w/o ang pctrs ang pctrs Encounter Encounter Diagnosis Active [facility] for for 07-07 In[facility] attention attention [id number] to to gastrostomy gastrostomy Gastro-esop Gastro-esop Diagnosis Active [facility]ez hageal hageal 07-07 Ingrahm reflux reflux [id number] disease disease without without esophagitis esophagitis Other Other Diagnosis Active [facility] specified specified 07-07 Ingrahm arthritis, arthritis, [id number] unspecified unspecified site site Essential Essential Diagnosis Active [facility] (primary) (primary) 07-07 Ingrahm hypertensio hypertensio 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 [facility] Diagnosis Active [facility] (current) (current) Ingrahm use of use of [id number] anticoagula anticoagula nts nts Nicotine Nicotine Diagnosis Active [facility] dependence, dependence, In[facility]hm cigarettes, cigarettes, [id number] uncomplicat uncomplicat ed ed Personal Personal Diagnosis Active [facility] history of history of [facility] malignant malignant [id number] neoplasm of neoplasm of breast breast Prsnl hx of Prsnl hx of Diagnosis Active [facility] TIA (TIA), TIA (TIA), Ingrahm and cereb and cereb [id number] infrc w/o infrc w/o resid resid deficits deficits Pain frequent Pain Mgmt Resolve 2018-11-26 Ana pain d 9 16:15:00 [facility] 13:30: [id number] 00 Pain severe pain Pain Mgmt Resolve 2018-11-26 Ana d 9 16:15:00 [facility] 13:30: [id number] 00 Endo/Han anti-coagul Endo/Han Resolve 2019-02-06 Ana ation d 07-07 11:15:00 [facility] therapy 13:30: [id number] 00 Integument surgical Integument Resolve 2018-08-05 Rea wound d 07-07 13:35:00 [facility] present 13:30: [id number] 00 Nutrition nutritional Nutrition Resolve 2019-01-02 Ana restriction d 07-07 10:00:00 [facility] s 13:30: [id number] 00 Nutrition changing Nutrition Resolve 2019-01-02 Ana weight/appe d 07-07 10:00:00 [facility] tite 13:30: [id number] 00 Nutrition nutritional Nutrition Resolve 2019-01-02 Ana risk d 07-07 10:00:00 [facility] 13:30: [id number] 00 Nutrition enteral Nutrition Resolve 2019-02-06 Ana therapy d 07-07 11:15:00 [facility] 13:30: [id number] 00 Safety structural Safety Resolve 2019-02-06 Ana barriers d 07-07 11:15:00 [facility] present 13:30: [id number] 00 Safety fall risk Safety Resolve 2019-02-06 Ana factor d 07-07 11:15:00 [facility] present 13:30: [id number] 00 Safety risk for Safety Resolve 2019-02-06 Ana hospitaliza d 07-07 11:15:00 [facility] tion 13:30: [id number] 00 Medication potential Meds Resolve 2019-02-06 Ana clinically d 07-07 11:15:00 [facility] significant 13:30: [id number] medication 00 issue Musculoskel requires Musculoske Resolve 2019-02-06 Ana etal human letal d 07-07 11:15:00 [facility] assist to 13:30: [id number] leave home 00 IV IV present IV Resolve 2019-02-06 Rea d 9-30 11:15:00 Lissette [id number] Respiratory dyspnea Respirator Resolve 2017-102019-02-06 [facility] present y d 0-16 11:15:00 [facility] 13:35: [id number] 00 Neuro confusion Neuro/Emot Unknown 2017-10 [facility] present ion 0-16 [facility] 13:35: [id number] 00 Neuro depressive Neuro/Emot Unknown 2017-10 [facility] feelings ion 0-16 [facility] present 13:35: [id number] 00 Safety can be left Safety Resolve 2017-102019-02-06 Mer[facility]ez alone for d 0-18 11:15:00 [facility] only short 08:10: [id number] periods 00 Integument surgical Integument Resolve 2017-102018-10-30 Shila wound d 1-15 10:10:00 Brian present 08:55: [id number] 00 Elimination GI drain or Eliminatio Resolve 2017-102019-02-06 Shila tube n d 1-15 11:15:00 Brian present 08:55: [id number] 00 Neuro anxiety Neuro/Emot Resolve 2017-102019-02-06 Shila present ion d 1-15 11:15:00 Brian 08:55: [id number] 00 Medication injectable Meds Resolve 2017-102019-02-06 Shila med d 1-15 11:15:00 Brian assistance 08:55: [id number] required 00 Safety fire risk Safety Resolve 2017-102019-02-06 Shila present d 1-15 11:15:00 Brian 13:00: [id number] 00 Elimination urinary Eliminatio Resolve 2019-02-06 [facility] incontinenc n d - 11:15:00 [facility] e 14:20: [id number] 00 Pain frequent Pain Mgmt Resolve 2019-02-06 [facility] pain d 2-15 11:15:00 [facility] 10:15: [id number] 00 Safety risk for Safety Unknown Leanna hospitaliza 02-06 [facility] tion 15:45: [id number] 00 Respiratory lung sounds Respirator Resolve 2019-04-03 Leanna deficit y d 02-10 10:01:00 Re[facility] 13:20: [id number] 00 Respiratory smoker Respirator Resolve 2019-04-03 Leanna y d 4-29 10:01:00 Re[facility]zi 12:10: [id number] 00 Respiratory dyspnea Respirator Resolve 2019-06-05 [facility] present y d 5-15 10:30:00 [facility] 09:00: [id number] 00 Integument surgical Integument Resolve 2019-03-27 [facility] wound d 5-15 09:15:00 [facility] present 09:00: [id number] 00 Nutrition enteral Nutrition Resolve 2019-03-27 [facility] therapy d -15 09:15:00 [facility] 09:00: [id number] 00 Elimination urinary Eliminatio Resolve 2019-04-10 [facility] incontinenc n d 15 09:30:00 Ingra[facility] e 09:00: [id number] 00 Neuro confusion Neuro/Emot Resolve 2019-11-25 [facility] present ion d 15 11:10:00 [facility] 09:00: [id number] 00 Neuro anxiety Neuro/Emot Resolve 2019-11-25 [facility] present ion d 515 11:10:00 [facility] 09:00: [id number] 00 Neuro depressive Neuro/Emot Resolve 2019-11-25 [facility] feelings ion d 15 11:10:00 [facility] present 09:00: [id number] 00 Neuro impaired Neuro/Emot Resolve 2019-11-25 [facility] decision-ma ion d 15 11:10:00 [facility] sonali 09:00: [id number] 00 Activity self-care Activity Resolve 2019-05-20 [facility] deficit d -15 11:15:00 [facility] 09:00: [id number] 00 Safety fall risk Safety Resolve 2019-07-17 [facility]ez factor d 5-15 10:35:00 [facility] present 09:00: [id number] 00 Safety risk for Safety Resolve 2019-07-17 Mer[facility]ez hospitaliza d 5-15 10:35:00 Ingra[facility] tion 09:00: [id number] 00 Medication potential Meds Resolve 2019-03-27 Mercedez clinically d 5-15 09:15:00 Ingrahm significant 09:00: [id number] medication 00 issue Integument surgical Integument Resolve 2019-05-20 [facility]ez wound d 7-12 11:15:00 Ingra[facility] present 10:00: [id number] 00 Nutrition enteral Nutrition Resolve 2019-06-26 [facility]ez therapy d 7-12 10:35:00 [facility] 10:00: [id number] 00 Respiratory dyspnea Respirator Resolve 2019-08-07 Leanna present y d 06-26 10:25:00 Regeczi 10:35: [id number] 00 Respiratory smoker Respirator Resolve 2019-07-01 Leanna y d 06-26 10:15:00 Regeczi 10:35: [id number] 00 Endo/Han anti-coagul Endo/Han Resolve 2019-07-23 Leanna ation d 06-26 10:15:00 Regeczi therapy 10:35: [id number] 00 Elimination urinary Eliminatio Resolve 2019-07-23 Leanna incontinenc n d 06-26 10:15:00 Regeczi e 10:35: [id number] 00 Elimination nausea/vomi Eliminatio Resolve 2019-07-01 Leanna serranog n d 06-26 10:15:00 Regeczi 10:35: [id number] 00 Integument surgical Integument Resolve 2019-07-23 [place] wound d 9-11 10:15:00 Ingrahm present 10:15: [id number] 00 Nutrition enteral Nutrition Resolve 2019-07-23 [facility] therapy d 07-01 10:15:00 [facility] 10:15: [id number] 00 Respiratory smoker Respirator Resolve 2019-07-16 Leanna y d 07-16 10:05:00 Regeczi 10:05: [id number] 00 Elimination diarrhea Eliminatio Resolve 2019-07-23 Leanna n d 07-17 10:15:00 Regeczi 10:35: [id number] 00 Cardio hypertensio Cardiovasc Resolve 2018-102019-07-30 Leanna olivares 0 10:00:00 Regeczi 10:15: [id number] 00 Safety risk for Safety Resolve 2018-102019-07-23 Leanna hospitaliza d 0-03 10:15:00 Regeczi tion 10:15: [id number] 00 24 Hr Diet knowledge/s NT: 24Hr Resolve 2018-102019-07-23 Wen kill Diet d 0-03 15:00:00 [place] deficit - 15:00: [id number] pt 00 Nutritional eating NT: Resolve 2018-102019-07-23 Wen Barrier difficultie Barriers d 0-03 15:00:00 [place] s present 15:00: [id number] 00 Safety risk for Safety Resolve 2018-102019-08-07 [facility] hospitaliza d 0-04 10:25:00 [place] tion 14:00: [id number] 00 Social financial MURIEL: Active 2018-10 [facility] resource Social 0-04 [place] deficit Services 14:00: [id number] 00 Social support MURIEL: Active 2018-10 [facility] deficit Social 0-04 [place] [facility] 14:00: [id number] 00 Social knowledge/s MURIEL: Active 2018-10 [facility] kill Social 0-04 [place] deficit - Services 14:00: [id number] pt 00 Social financial MURIEL: Unknown 2018-10 [facility] resource Social 0-10 [facility] deficit Services 15:00: [id number] 00 Social knowledge/s MURIEL: Unknown 2018-10 [facility] Services kill Social 0-10 [facility] deficit - Services 15:00: [id number] pt 00 Respiratory lung sounds Respirator Resolve 2018-102019-08-07 Leanna deficit y d 0-18 10:25:00 Regeczi 10:25: [id number] 00 Respiratory dyspnea Respirator Resolve 2018-102019-10-23 [facility]ez present y d 10-28 10:15:00 [facility] 11:00: [id number] 00 Integument surgical Integument Resolve 2018-102019-09-11 [facility] wound d 10-28 09:50:00 Ingrahm present 11:00: [id number] 00 Nutrition enteral Nutrition Resolve 2018-102019-09-11 [facility] therapy d 10-28 09:50:00 [facility] 11:00: [id number] 00 Elimination urinary Eliminatio Resolve 2018-102019-09-11 [facility] incontinenc n d 10-28 09:50:00 Ingrahm e 11:00: [id number] 00 Safety fall risk Safety Resolve 2018-102019-09-11 [facility] factor d 10-28 09:50:00 [facility] present 11:00: [id number] 00 Safety risk for Safety Resolve 2018-102019-09-23 [facility] hospitaliza d 10-28 11:10:00 Ingra[facility] tion 11:00: [id number] 00 Safety risk for Safety Unknown 2018-10 [facility] hospitaliza 11-24 Ingrahm tion 15:00: [id number] 00 Cardio hypertensio Cardiovasc Resolve 2019-11-25 Leanna n ular d 10-23 11:10:00 Regeczi 10:15: [id number] 00 Elimination urinary Eliminatio Resolve 2019-11-05 Leanna incontinenc n d 10-23 10:23:00 Regeczi e 10:15: [id number] 00 Elimination constipatio Eliminatio Resolve 2019-11-05 Leanna n n d 10-23 10:23:00 Regeczi 10:15: [id number] 00 Integument surgical Integument Resolve 2019-11-19 [facility] wound d 10-28 10:50:00 Ingrahm present 10:50: [id number] 00 Nutrition enteral Nutrition Resolve 2019-11-25 [facility] therapy d 10-28 11:10:00 Ingra[facility] 10:50: [id number] 00 Elimination UTI within Eliminatio Resolve 2019-11-05 Mercedez past 14 n d 10-28 10:23:00 Ingrahm days 10:50: [id number] 00 Activity self-care Activity Resolve 2019-11-05 [facility] deficit d 10-28 10:23:00 Ingrahm 10:50: [id number] 00 Safety fall risk Safety Resolve 2019-11-05 [facility]ez factor d 10-28 10:23:00 Ingrahm present 10:50: [id number] 00 Safety risk for Safety Resolve 2019-11-05 Mer[facility] hospitaliza d 10-28 10:23:00 Ingrahm tion 10:50: [id number] 00 Allergies, Adverse Reactions, Alerts Allergy Allergy Status Severity Reaction(s) Onset Inactive Treating Comments Name Type Date Date Clinician latex Base Active Unknown Hives [facility] Ingredient 07-07 [facility] [id number] amoxicillin Base Active Unknown Anaphylaxis [facility] Ingredient 07-07 [facility] [id number] bee venom Base Active Unknown Anaphylaxis [facility] protein Ingredient 07-07 [facility] ([facility]) [id number] Botox Medication Active Unknown Anaphylaxis [facility] Name ID 07-07 [facility] [id number] contrast Unknown Active Unknown Anaphylaxis [facility]ez dye 07-07 [facility] [id number] Penicillins Allergen Active Unknown Anaphylaxis [facility] Group 07-07 [facility] [id number] shellfish Base Active Unknown Anaphylaxis [facility] derived Ingredient 07-07 [facility] [id number] adhesive Base Active Unknown Hives [facility] tape Ingredient 07-07 [facility] [id number] nsaids Unknown Active Unknown stomach issues [facility]ez 07-07 [facility] [id number] oxycodone Base Active Unknown swelling [facility] Ingredient 07-07 [facility] [id number] Betadine Medication Active Unknown Rash [facility]ez Name ID 07-07 [facility] [id number] Hibiclens Medication Active Unknown Rash [facility] Name ID 07-07 [facility] [id number] evironmenta Unknown Active Unknown hay fever, Rea l/seasonal watery eye, 07-07 [facility] itching, [id number] sneeze, congestion povidone-io Base Active Unknown itching Rea dine Ingredient 07-07 [facility] [id number] Iodine and Allergen Active Unknown Anaphylaxis Rea Iodide Group 07-07 [facility] Containing [id number] Products albumin Base Active Unknown Anaphylaxis Rea colloid, Ingredient 07-07 [facility] human [id number] fentanyl Base Active Unknown hallucinations Rea Ingredient 07-07 [facility] [id number] Medications Ordered Filled Start Stop Current Ordering [...]
--- OUTSIDE RECORDS SUMMARY | 2019-12-19 17:47 | XMS REPORT ---
:1955 Author Organization [facility] Care Team Providers Name Role Phone Unavailable Unavailable Unavailable Problems Condition Condition Condition Status Onset Resolution Last Treating Comments Name Details Category Date Date Treatment Clinician Date Achalasia Achalasia Diagnosis Active Mer[facility]ez of [facility] [facility] 07-07 Ingrahm [id number] Athscl Athscl Diagnosis Active Mercedez heart heart 07-07 Ingrahm disease of disease of [id number] [place] coronary coronary artery w/o artery w/o ang pctrs ang pctrs Encounter Encounter Diagnosis Active Mercedez for for 07-07 Ingrahm attention attention [id number] to to gastrostomy gastrostomy Gastro-esop Gastro-esop Diagnosis Active Mercedez hageal hageal 07-07 Ingrahm reflux reflux [id number] disease disease without without esophagitis esophagitis Other Other Diagnosis Active Mercedez specified specified 07-07 Ingrahm arthritis, arthritis, [id number] unspecified unspecified site site Essential Essential Diagnosis Active Mer[facility]ez (primary) (primary) 07-07 Ingrahm hypertensio hypertensio [id number] 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 Mercedez (current) (current) Ingrahm use of use of [id number] anticoagula anticoagula nts nts Nicotine Nicotine Diagnosis Active [facility]ez dependence, dependence, In[place]hm cigarettes, cigarettes, [id number] uncomplicat uncomplicat ed ed Personal Personal Diagnosis Active Mercedez history of history of Ingrahm malignant malignant [id number] neoplasm of neoplasm of breast breast Prsnl hx of Prsnl hx of Diagnosis Active Mercedez TIA (TIA), TIA (TIA), Ingrahm and cereb and cereb [id number] infrc w/o infrc w/o resid resid deficits deficits Pain frequent Pain Mgmt Resolve 2018-11-26 Ana pain d 9 16:15:00 [place] 13:30: [id number] 00 Pain severe pain Pain Mgmt Resolve 2018-11-26 Ana d 9 16:15:00 [place] 13:30: [id number] 00 Endo/Han anti-coagul Endo/Han Resolve 2019-02-06 Ana ation d 07-07 11:15:00 [place] therapy 13:30: [id number] 00 Integument surgical Integument Resolve 2018-08-05 Rea wound d 07-07 13:35:00 [place] present 13:30: [id number] 00 Nutrition nutritional Nutrition Resolve 2019-01-02 Ana restriction d 07-07 10:00:00 Cary s 13:30: [id number] 00 Nutrition changing Nutrition Resolve 2019-01-02 Ana weight/appe d 07-07 10:00:00 Cary tite 13:30: [id number] 00 Nutrition nutritional Nutrition Resolve 2019-01-02 Ana risk d 07-07 10:00:00 [place] 13:30: [id number] 00 Nutrition enteral Nutrition Resolve 2019-02-06 Ana therapy d 07-07 11:15:00 [place] 13:30: [id number] 00 Safety structural Safety Resolve 2019-02-06 Ana barriers d 07-07 11:15:00 [place] present 13:30: [id number] 00 Safety fall risk Safety Resolve 2019-02-06 Ana factor d 07-07 11:15:00 [place] present 13:30: [id number] 00 Safety risk for Safety Resolve 2019-02-06 Ana hospitaliza d 07-07 11:15:00 [place] tion 13:30: [id number] 00 Medication potential Meds Resolve 2019-02-06 Ana clinically d 07-07 11:15:00 [place] significant 13:30: [id number] medication 00 issue Musculoskel requires Musculoske Resolve 2019-02-06 Ana etal human letal d 07-07 11:15:00 Cary assist to 13:30: [id number] leave home 00 IV IV present IV Resolve 2019-02-06 Rea d 9-30 11:15:00 Lissette [id number] Respiratory dyspnea Respirator Resolve 2017-102019-02-06 Mer[facility]ez present y d 0-16 11:15:00 [place] 13:35: [id number] 00 Neuro confusion Neuro/Emot Resolve 2017-102019-02-06 Mer[facility]ez present ion d 0-16 11:15:00 In[place] 13:35: [id number] 00 Neuro depressive Neuro/Emot Resolve 2017-102019-02-06 Mer[facility]ez feelings ion d 0-16 11:15:00 Ingra[place] present 13:35: [id number] 00 Safety can be left Safety Resolve 2017-102019-02-06 Mercedez alone for d 0-18 11:15:00 Ingrahm only short 08:10: [id number] periods 00 Integument surgical Integument Resolve 2017-102018-10-30 Shila wound d 1-15 10:10:00 Brian present 08:55: [id number] 00 Elimination GI drain or Eliminatio Resolve 2017-102019-02-06 Shila tube n d 1-15 11:15:00 Brian present 08:55: [id number] 00 Neuro anxiety Neuro/Emot Resolve 2017-102019-02-06 Shila present ion d 1-15 11:15:00 Brian 08:55: [id number] 00 Medication injectable Meds Resolve 2017-102019-02-06 Shila med d 1-15 11:15:00 Brian assistance 08:55: [id number] required 00 Safety fire risk Safety Resolve 2017-102019-02-06 Shila present d 1-15 11:15:00 Brian 13:00: [id number] 00 Elimination urinary Eliminatio Resolve 2019-02-06 Mercedez incontinenc n d 1- 11:15:00 Ingrahm e 14:20: [id number] 00 Pain frequent Pain Mgmt Resolve 2019-02-06 Mercedez pain d 2-15 11:15:00 Ingrahm 10:15: [id number] 00 Safety risk for Safety Unknown Leanna denis 02-06 Regeczi tion 15:45: [id number] 00 Respiratory lung sounds Respirator Resolve 2019-04-03 Leanna deficit y d 4-23 10:01:00 Regeczi 13:20: [id number] 00 Respiratory smoker Respirator Resolve 2019-04-03 Leanna y d 4-29 10:01:00 Regeczi 12:10: [id number] 00 Respiratory dyspnea Respirator Resolve 2019-06-05 Mercedez present y d 5-15 10:30:00 Ingrahm 09:00: [id number] 00 Integument surgical Integument Resolve 2019-03-27 Mercedez wound d 5-15 09:15:00 Ingrahm present 09:00: [id number] 00 Nutrition enteral Nutrition Resolve 2019-03-27 Mercedez therapy d 5-15 09:15:00 Ingrahm 09:00: [id number] 00 Elimination urinary Eliminatio Resolve 2019-04-10 Mercedez incontinenc n d 5-15 09:30:00 Ingrahm e 09:00: [id number] 00 Neuro confusion Neuro/Emot Active Mercedez present ion 5-15 Ingrahm 09:00: [id number] 00 Neuro anxiety Neuro/Emot Active 2018- Mercedez present ion 5-15 Ingrahm 09:00: [id number] 00 Neuro depressive Neuro/Emot Active 2018- Mercedez feelings ion 5-15 Ingrahm present 09:00: [id number] 00 Neuro impaired Neuro/Emot Active 2018- Mer[facility]ez decision-ma ion 5-15 Ingrahm sonali 09:00: [id number] 00 Activity self-care Activity Resolve 2019-05-20 Mercedez deficit d 5-15 11:15:00 Ingrahm 09:00: [id number] 00 Safety fall risk Safety Resolve 2019-07-17 Mercedez factor d 5-15 10:35:00 Ingrahm present 09:00: [id number] 00 Safety risk for Safety Resolve 2019-07-17 Mercedez hospitaliza d 5-15 10:35:00 Ingrahm tion 09:00: [id number] 00 Medication potential Meds Resolve 2019-03-27 Mercedez clinically d 5-15 09:15:00 Ingrahm significant 09:00: [id number] medication 00 issue Integument surgical Integument Resolve 2019-05-20 Mercedez wound d 7-12 11:15:00 Ingrahm present 10:00: [id number] 00 Nutrition enteral Nutrition Resolve 2019-06-26 Mercedez therapy d 7-12 10:35:00 Ingrahm 10:00: [id number] 00 Respiratory dyspnea Respirator Resolve 2019-08-07 Leanna present y d 06-26 10:25:00 Regeczi 10:35: [id number] 00 Respiratory smoker Respirator Resolve 2019-07-01 Leanna y d 06-26 10:15:00 Regeczi 10:35: [id number] 00 Endo/Han anti-coagul Endo/Han Resolve 2019-07-23 Leanna ation d 06-26 10:15:00 Regeczi therapy 10:35: [id number] 00 Elimination urinary Eliminatio Resolve 2019-07-23 Leanna incontinenc n d 06-26 10:15:00 Regeczi e 10:35: [id number] 00 Elimination nausea/vomi Eliminatio Resolve 2019-07-01 Leanna ting n d 06-26 10:15:00 Regeczi 10:35: [id number] 00 Integument surgical Integument Resolve 2019-07-23 Mercedez wound d 9-11 10:15:00 Ingrahm present 10:15: [id number] 00 Nutrition enteral Nutrition Resolve 2019-07-23 Mercedez therapy d 9 10:15:00 Ingrahm 10:15: [id number] 00 Respiratory smoker Respirator Resolve 2019-07-16 Leanna y d 07-16 10:05:00 Regeczi 10:05: [id number] 00 Elimination diarrhea Eliminatio Resolve 2019-07-23 Leanna n d 07-17 10:15:00 Regeczi 10:35: [id number] 00 Cardio hypertensio Cardiovasc Resolve 2018-102019-07-30 Leanna eastman d 003 10:00:00 Regeczi 10:15: [id number] 00 Safety risk for Safety Resolve 2018-102019-07-23 Leanna hospitaliza d 0-03 10:15:00 Regeczi tion 10:15: [id number] 00 24 Hr Diet knowledge/s NT: 24Hr Resolve 2018-102019-07-23 Wen kill Diet d 0-03 15:00:00 [place] deficit - 15:00: [id number] pt 00 Nutritional eating NT: Resolve 2018-102019-07-23 Wen Barrier difficultie Barriers d 0-03 15:00:00 [place] s present 15:00: [id number] 00 Safety risk for Safety Resolve 2018-102019-08-07 Roseline hospitaliza d 0-04 10:25:00 [place] tion 14:00: [id number] 00 Social financial MURIEL: Active 2018-10 [facility] resource Social 0-04 [place] deficit Services 14:00: [id number] 00 Social support MURIEL: Active 2018-10 [facility] deficit Social 0-04 [place] [facility] 14:00: [id number] 00 Social knowledge/s MURIEL: Active 2018-10 [facility] kill Social 0-04 [place] deficit - Services 14:00: [id number] pt 00 Social financial MURIEL: Unknown 2018-10 [facility] Services resource Social 0-10 In[facility] deficit Services 15:00: [id number] 00 Social knowledge/s MURIEL: Unknown 2018-10 [facility] Services kill Social 0-10 In[place] deficit - Services 15:00: [id number] pt 00 Respiratory lung sounds Respirator Resolve 2018-102019-08-07 Leanna deficit y d 0-18 10:25:00 Regeczi 10:25: [id number] 00 Respiratory dyspnea Respirator Resolve 2018-102019-10-23 Mercedez present y d 10-28 10:15:00 Ingrahm 11:00: [id number] 00 Integument surgical Integument Resolve 2018-102019-09-11 Mercedez wound d 10-28 09:50:00 Ingrahm present 11:00: [id number] 00 Nutrition enteral Nutrition Resolve 2018-102019-09-11 Mercedez therapy d 10-28 09:50:00 Ingrahm 11:00: [id number] 00 Elimination urinary Eliminatio Resolve 2018-102019-09-11 Mercedez incontinenc n d 10-28 09:50:00 Ingrahm e 11:00: [id number] 00 Safety fall risk Safety Resolve 2018-102019-09-11 Mercedez factor d 10-28 09:50:00 Ingrahm present 11:00: [id number] 00 Safety risk for Safety Resolve 2018-2019-09-23 Mercedez hospitaliza d 10-28 11:10:00 Ingrahm tion 11:00: [id number] 00 Safety risk for Safety Unknown 2018-10 Mercedez hospitaliza 11-24 Ingrahm tion 15:00: [id number] 00 Cardio hypertensio Cardiovasc Active 2020-0 Leanna n ular 10-23 Regeczi 10:15: [id number] 00 Elimination urinary Eliminatio Active 2019-0 Leanna incontinenc n 10-23 Regeczi e 10:15: [id number] 00 Elimination constipatio Eliminatio Active 2019-0 Leanna n n 10-23 Regeczi 10:15: [id number] 00 Integument surgical Integument Active 2019-0 Mercedez wound 10-28 Ingrahm present 10:50: [id number] 00 Nutrition enteral Nutrition Active 2020-0 Mercedez therapy 10-28 Ingrahm 10:50: [id number] 00 Elimination UTI within Eliminatio Active 2019-0 Mercedez past 14 n - Ingrahm days 10:50: [id number] 00 Activity self-care Activity Active 2020-0 Mercedez deficit 10-28 Ingrahm 10:50: [id number] 00 Safety fall risk Safety Active 2020-0 Mercedez factor - Ingrahm present 10:50: [id number] 00 Safety risk for Safety Active 2020-0 Emrcedez hospitaliza 10-28 Ingrahm tion 10:50: [id number] 00 Allergies, Adverse Reactions, Alerts Allergy Allergy Status Severity Reaction(s) Onset Inactive Treating Comments Name Type Date Date Clinician latex Base Active Unknown Hives [facility] [id number] amoxicillin Base Active Unknown Anaphylaxis [facility] Ingredient 07-07 [facility] [id number] bee venom Base Active Unknown Anaphylaxis [facility] protein Ingredient 07-07 [facility] ([facility]) [id number] Botox Medication Active Unknown Anaphylaxis Mercedez Name ID 07-07 [facility] [id number] contrast Unknown Active Unknown Anaphylaxis Mercedez dye 07-07 [facility] [id number] Penicillins Allergen Active Unknown Anaphylaxis [facility] Group 07-07 [facility] [id number] shellfish Base Active Unknown Anaphylaxis Mer[facility]ez derived Ingredient 07-07 [facility] [id number] adhesive Base Active Unknown Hives Mercedez tape Ingredient 07-07 [facility] [id number] nsaids Unknown Active Unknown stomach issues Mercedez 07-07 [facility] [id number] oxycodone Base Active Unknown swelling Mercedez Ingredient 07-07 [facility] [id number] Betadine Medication Active Unknown Rash Mercedez Name ID 07-07 [facility] [id number] Hibiclens Medication Active Unknown Rash Mercedez Name ID 07-07 [facility] [id number] evironmenta Unknown Active Unknown hay fever, Rea l/seasonal watery eye, 07-07 Guidelli itching, [id number] sneeze, congestion povidone-io Base Active Unknown itching Rea dine Ingredient 07-07 Guidelli [id number] Iodine and Allergen Active Unknown Anaphylaxis Rea Iodide Group 07-07 Guid[facility] Containing [id number] Products albumin Base Active Unknown Anaphylaxis Rea colloid, Ingredient 07-07 Guidelli human [id number] fentanyl Base Active Unknown hallucinations Rea Ingredient 07-07 Guid[facility] [id number] Medications Ordered Filled Start Stop Current Ordering [...] Unknown Unknown min (vit min (vit 9-17 Tashia FINCH B-12) 1,000 B-12) 1,000 e [...] Blegen Unknown Unknown tartrate 50 tartrate 50 04-23- Tashia FINCH mg tablet mg tablet e [...] Unknown Unknown tartrate 25 tartrate 25 5-04 09-21 Tashia FINCH mg tablet mg tablet e [...] Unknown Unknown bromide 17 bromide 17 0-21 12- Tashia FINCH mcg/actuati mcg/actuati e on HFA on HFA aerosol aerosol inhaler inhaler ipratropium ipratropium 2018-10- Yes Blegen Unknown Unknown bromide 17 bromide 17 0- 12- ,[place] mcg/actuati mcg/actuati e on HFA on HFA aerosol aerosol inhaler inhaler metoprolol metoprolol 2018-10 Yes Blegen Unknown Unknown tartrate 25 tartrate 25 - Tashia FINCH mg tablet mg tablet e ciprofloxac ciprofloxac 2018-10- Yes Blegen Unknown Unknown in 500 mg in 500 mg 11-18 Tashia FINCH tablet tablet e Spiriva Spiriva 2018-10 Yes Blegen Unknown Unknown Respimat Respimat 2- Tashia FINCH 2.5 2.5 e mcg/actuati mcg/actuati on solution on solution for for inhalation inhalation losartan losartan 2018-10 Yes Blegen Unknown Unknown 100 mg 100 mg 2 Tashia FINCH tablet tablet e azelastine azelastine Yes Blegen Unknown Unknown 0.05 % eye 0.05 % eye 10-23 Tashia FINCH drops drops e ketotifen ketotifen Yes Blegen Unknown Unknown 0.025 % 0.025 % 10-23 Tashia FINCH (0.035 %) (0.035 %) e eye drops eye drops ciprofloxac ciprofloxac 2019- Yes Blegen Unknown Unknown in 500 mg in 500 mg 10-28 Tashia FINCH tablet tablet e Vital Signs Vital Name Observation Time Observation Value Comments SYSTOLIC mm[Hg] 2018-11-27 18:04:11 142 mm[Hg] mm[Hg] Method: Stand SYSTOLIC mm[Hg] 2019-06-27 18:07:43 122 mm[Hg] mm[Hg] Method: Lie DIASTOLIC mm[Hg] 2018-11-27 18:04:11 84 mm[Hg] mm[Hg] Method: Stand DIASTOLIC mm[Hg] 2019-06-27 18:07:43 50 mm[Hg] mm[Hg] Method: Lie RESP RATE 2019-10-28 18:09:46 16 /min /min Procedures This patient has no known procedures. Results This patient has no known results.
--- OUTSIDE RECORDS SUMMARY | 2019-12-19 17:47 | XMS REPORT | Continuity of Care Document ---
:1955 External Reference #:[id number] Author Name Rock Domínguez M.D., [facility], FASNC (transmitted by agent of provider Cecy Cardoso) Address [facility] [place] [address] Care Team Providers Name Role Phone Trish Combs MD - Family Care Team Information Box Stapler [phone] Medicine Problems Active Problems Provider Date Chest pain Rock Domínguez M.D., [facility], Onset: 12/02/2013 FASNC Syncope and collapse Rock Domínguez M.D., [facility], Onset: 09/03/2014 FASNC Arthralgia of the lower leg Benny Celeste M.D. Onset: 04/05/2015 Derangement of knee Benny Celeste M.D. Onset: 04/05/2015 Coronary arteriosclerosis Rock Domínguez M.D., [facility], Onset: 05/09/2015 FASNC Achalasia of esophagus Benny Celeste M.D. Onset: 11/24/2015 Localized, primary osteoarthritis Benny Celeste M.D. Onset: 11/24/2015 Atherosclerotic heart disease of Rock Domínguez M.D., [facility], Onset: 2015 [place] coronary artery with other FASIN forms of angina pectoris Essential hypertension Rock Domínguez M.D., [facility], Onset: 02/14/2016 FASNC Arthroplasty of knee Benny Celeste M.D. Onset: 03/29/2016 Abdominal pain Taylor Hutchison NP Onset: 04/16/2018 Chronic obstructive lung disease Tennille Sierra N.P. Onset: 04/17/2018 Hypokalemia Liss Chandler NP Onset: 06/16/2018 Nausea and vomiting Liss Gila Chandler NP Onset: 06/16/2018 Acute renal failure syndrome Taylor Hutchison NP Onset: 06/17/2018 Pulmonary hypertension Rock Domínguez M.D., [facility], Onset: 05/08/2019 [facility] Social History Type Date Description Comments Sex Unknown Tobacco Use Start: Unknown Patient is a [...] Itching, Swelling of oxycodone okay 05/08/2019 eyelid Benadryl hallucinations per patient 11/13/2019 Medications Active Medications SIG Qnty Indications Ordering Date Provider Madonna Odt one tab by mouth 30tabs Benny 03/23/2016 4mg Tablets every 8 hours as Ramon Celeste Dispers needed for nausea Losartan Potassium 1 by mouth every day 90tabs Rock Mcgee 02/14/2016 Ramon Domínguez, 100mg Tablets [facility] Atrovent HFA 2 puff by mouth up to Unknown 17mcg/Act every 6 hours as Aerosol needed for shortness of breath/wheezing Spironolactone 1 by mouth every day Unknown 25mg am Tablets Azelastine HCL 2 spray each nostril Unknown (Nasal) once a day 137mcg/Miltona Solution Lorazepam 1-2 tabs q hs for Unknown 0.5mg Tablets insomnia Folic Acid take one Unknown 1mg Tablets capsule/tablet daily by mouth Narcan inject in the nose as Unknown 4mg/0.1ML Liquid needed for overdose Hydromorphone HCL 2 tablets every four Unknown 4mg hours as needed, max Tablets daily dose 12 Atorvastatin Calcium 1 by mouth every day Unknown 40mg Tablets Metoprolol Tartrate 1 tablet by mouth Unknown twice a day ( med 25mg Tablets change increase 1/2 to 1 tablet approx Summer 2018) Isosorbide 1 by mouth every day Unknown Mononitrate ER 30mg Tablets ER 24HR Pantoprazole Sodium 1 by mouth every day Unknown 40mg Tablets DR Ketotifen Fumarate 1 drop each eye twice Unknown per day for allergic 0.025% Solution conjunctivitis Nicotrol as directed, no more Unknown 10mg Inhaler than 5 per day Famotidine 1 by mouth every day Unknown 20mg Tablets Thiamine HCL 1 by mouth every day Unknown 100mg Tablets Multi Vitamin Daily 1 by mouth every day Unknown Tablets Amlodipine Besylate 1 by mouth every day Unknown 10mg Tablets Jevity 1.5 Pineda 5 can/day Unknown Liquid Morphine Sulfate ER 1 tab by mouth every Unknown 8 hours as needed 60mg Tablets ER Proair HFA 2 puffs by mouth Unknown 108(90Base) every 4 hours as mcg/Act Aerosol needed for wheezing Cyanocobalamin 1.0 cubic centimeters Unknown intramuscular every 1000mcg/ML Solution month Clopidogrel Bisulfate 1 by mouth every day Unknown 75mg Tablets Epipen 2-Godwin use as directed Unknown 0.3mg/0.3ML Solution Auto-Inject Carisoprodol 1 tab 4 times a day 90tabs Unknown 350mg for muscle Tablets spasms/achalasia Nitrostat 1 tab dissolve under 25tabs Rock Mcgee 0.4mg Tablets tongue as needed Ramon Domínguez, Sub chest pain FACC, FASNC Medications Administered in Office Medication SIG Qnty [...] Up FACC, FASNC To 40 Millicuries Injection Immunizations Description No Information Available Vital Signs Date Vital Result Comment 11/13/2019 1:26pm Height 67 inches 5'7" Weight 111.00 lb with shoes Heart Rate 76 /min BP Systolic Sitting 136 mmHg lue reg cuff BP Diastolic Sitting 80 mmHg lue reg cuff BP Systolic Standing 134 mmHg lue rreg cuff BP Diastolic Standing 80 mmHg lue rreg cuff Respiratory Rate 20 /min BMI (Body Mass Index) 17.4 kg/m2 Ejection Fraction 60-65% echo.10/26/19 05/08/2019 1:16pm Height 67 inches 5'7" Weight 103.00 lb Heart Rate 56 /min BP Systolic Sitting 100 mmHg Lue, reg cuff BP Diastolic Sitting 72 mmHg Lue, reg cuff BP Systolic Standing 106 mmHg Lue, reg cuff BP Diastolic Standing 68 mmHg Lue, reg cuff Respiratory Rate 14 /min BMI (Body Mass Index) 16.1 kg/m2 Ejection Fraction 60-65% echo 04/02/19 Results Description No Information Available Procedures Date Code Description Status 11/13/2019 74071 EKG Tracing & Interpretation Completed 10/26/2019 61464 ECHO Transthorasic Realtime 2D W Doppler & Color Flow Hosp Completed 10/26/2019 46276 EKG, Interpretation Only Completed 09/09/2019 61987 EKG, Interpretation Only Completed 09/08/2019 23418 ECHO Transthorasic Realtime 2D W Doppler & Color Flow Hosp Completed 09/08/2019 17244 EKG, Interpretation Only Completed Medical Devices Description No Information Available Encounters Type Date Location Provider Dx Diagnosis Office Visit 11/13/2019 [facility] Rock Mcgee R07.9 Chest pain, 1:45p Of Dwight Domínguez M.D., unspecified [facility], [facility] Office Visit 10/26/2019 [facility] Yumiko Milan, G92 Toxic encephalopathy 9:14a Assoc,pc D.O. Hospitalists K22.0 Achalasia of cardia I25.10 Athscl heart disease of [place] coronary artery w/o ang pctrs I10 Essential (primary) hypertension G89.29 Other chronic pain K21.9 Gastro-esophageal reflux disease without esophagitis Z72.0 Tobacco use Office Visit 09/10/2019 10:07a [facility] Rosibel K22.0 Achalasia of Assoc,pc JAIME Cisneros cardia Hospitalists R10.10 Upper abdominal pain, unspecified I16.0 Hypertensive urgency R07.9 Chest pain, unspecified Office Visit 09/08/2019 10:05a [facility] Tunde Burt, I16.0 Hypertensive Assoc,pc urgency Hospitalists K22.0 Achalasia of cardia R07.9 Chest pain, unspecified R10.10 Upper abdominal pain, unspecified Assessments Date Code Description Provider 11/13/2019 R07.9 Chest pain, unspecified Rock Domínguez M.D., [facility], [facility] 10/27/2019 G92 Toxic encephalopathy Laura Darvin, BLADDER TRIMMER 10/26/2019 R94.31 Abnormal electrocardiogram [ECG] [EKG] Neisha Garcia M.D. 10/26/2019 R94.31 Abnormal electrocardiogram [ECG] [EKG] Eugene Talley M.D. 10/26/2019 G92 Toxic encephalopathy Yumiko Milan D.O. 10/26/2019 K22.0 Achalasia of cardia Yumiko Milan D.O. 10/26/2019 I25.10 Atherosclerotic heart disease of Yumiko Milan D.O. [place] coronary artery without angina pectoris 10/26/2019 I10 Essential (primary) hypertension Yumiko Milan D.O. 10/26/2019 G89.29 Other chronic pain Yumiko Milan D.O. 10/26/2019 K21.9 Gastro-esophageal reflux disease Yumiko Milan D.O. without esophagitis 10/26/2019 Z72.0 Tobacco use Dionicio Urias.Montrell 10/25/2019 G92 Toxic encephalopathy Kimo Castanon M.D. 10/25/2019 R44.3 Hallucinations, unspecified Kimo Castanon M.D. 10/25/2019 I16.0 Hypertensive urgency Kimo Castanon M.D. 10/25/2019 R09.02 Hypoxemia Kimo Castanon M.D. 10/25/2019 E43 Unspecified severe protein-calorie Kimo Castanon M.D. malnutrition 10/25/2019 Z93.1 Gastrostomy status Kimo Castanon M.D. 09/10/2019 K22.0 Achalasia of cardia Rosibel O'edwina, PA-C 09/10/2019 R10.10 Upper abdominal pain, unspecified Rosibel O'edwina, PA-C 09/10/2019 I16.0 Hypertensive urgency Rosibel O'edwina, PA-C 09/10/2019 R07.9 Chest pain, unspecified Rosibel O'edwina, PA-C 09/09/2019 R94.31 Abnormal electrocardiogram [ECG] [EKG] Neisha Garcia M.D. 09/09/2019 I16.0 Hypertensive urgency Rosibel O'edwina, PA-C 09/09/2019 R07.9 Chest pain, unspecified Rosibel O'edwina, PA-C 09/09/2019 K22.0 Achalasia of cardia Rosibel O'edwina, PA-C 09/08/2019 R94.31 Abnormal electrocardiogram [ECG] [EKG] Neisha Garcia M.D. 09/08/2019 I16.0 Hypertensive urgency Tunde Burt, MD 09/08/2019 K22.0 Achalasia of cardia Tunde Burt MD 09/08/2019 R07.9 Chest pain, unspecified Eugene Talley M.D. 09/08/2019 R07.9 Chest pain, unspecified Tunde Burt MD 09/08/2019 R10.10 Upper abdominal pain, unspecified Tunde Burt MD Plan of Treatment Future Appointment(s):01/20/2020 10:45 am - [facility] at [facility]12/14/2019 11:45 am - [facility] GAM[facility] at [facility]11/13/2019 - Rock Domínguez M.D., [facility], BACTFU41.9 Chest pain, unspecifiedNew Orders:Stress Test, Pharmacologic Nuclear (Lexiscan), Ordered: 11/13/19Comments:As discussed, we will recheck your stress test. Overall I feel your blood pressure is okay and if stays increased, could increase your Imdur further with your PCP (which may also help with your esophageal spasm). Your echo findings are stable. Please continue to stay hydrated.Follow up:after NLM Functional Status Description No Information Available Mental Status Description No Information Available Referrals Description No Information Available
--- OUTSIDE RECORDS SUMMARY | 2019-12-19 17:47 | XMS REPORT ---
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 coronary coronary artery w/o artery w/o ang pctrs ang pctrs Encounter Encounter Diagnosis Active Mercedez for for 07-07 Ingrahm attention attention [id number] to to gastrostomy gastrostomy Gastro-esop Gastro-esop Diagnosis Active Mercedez hageal hageal 07-07 Ingrahm reflux reflux [id number] disease disease without without esophagitis esophagitis Other Other Diagnosis Active Mercedez specified specified 07-07 Ingrahm arthritis, arthritis, [id number] unspecified unspecified site site Essential Essential Diagnosis Active Mercedez (primary) (primary) 07-07 Ingrahm hypertensio hypertensio [id number] n n 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) (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) Ingrahm use of use of [id number] anticoagula anticoagula nts nts Nicotine Nicotine Diagnosis Active Mercedez dependence, dependence, Ingrahm cigarettes, cigarettes, [id number] uncomplicat uncomplicat ed ed Personal Personal Diagnosis Active Mercedez history of history of Ingrahm malignant malignant [id number] neoplasm of neoplasm of breast breast Prsnl hx of Prsnl hx of Diagnosis Active Mercedez TIA (TIA), TIA (TIA), Ingrahm and cereb and cereb [id number] infrc w/o infrc w/o resid resid deficits deficits Pain frequent Pain Mgmt Resolve 2018-11-26 Ana pain d 9 16:15:00 Colome 13:30: [id number] 00 Pain severe pain Pain Mgmt Resolve 2018-11-26 Ana d 9 16:15:00 Colome 13:30: [id number] 00 Endo/Han anti-coagul Endo/Han Resolve 2019-02-06 Ana ation d 07-07 11:15:00 Colome therapy 13:30: [id number] 00 Integument surgical Integument Resolve 2018-08-05 Rea wound d 07-07 13:35:00 Guidelli present 13:30: [id number] 00 Nutrition nutritional Nutrition Resolve 2019-01-02 Ana restriction d 07-07 10:00:00 Colome s 13:30: [id number] 00 Nutrition changing Nutrition Resolve 2019-01-02 Ana weight/appe d 07-07 10:00:00 Colome tite 13:30: [id number] 00 Nutrition nutritional Nutrition Resolve 2019-01-02 Ana risk d 07-07 10:00:00 Colome 13:30: [id number] 00 Nutrition enteral Nutrition Resolve 2019-02-06 Ana therapy d 07-07 11:15:00 Colome 13:30: [id number] 00 Safety structural Safety Resolve 2019-02-06 Ana barriers d 07-07 11:15:00 Colome present 13:30: [id number] 00 Safety fall risk Safety Resolve 2019-02-06 Ana factor d 07-07 11:15:00 Colome present 13:30: [id number] 00 Safety risk for Safety Resolve 2019-02-06 Ana hospitaliza d 07-07 11:15:00 Colome tion 13:30: [id number] 00 Medication potential Meds Resolve 2019-02-06 Ana clinically d 07-07 11:15:00 Colome significant 13:30: [id number] medication 00 issue Musculoskel requires Musculoske Resolve 2019-02-06 Ana etal human letal d 07-07 11:15:00 Colome assist to 13:30: [id number] leave home 00 IV IV present IV Resolve 2019-02-06 Rea d 9-30 11:15:00 Lissette [id number] Respiratory dyspnea Respirator Resolve 2017-102019-02-06 Mercedez present y d 0-16 11:15:00 Ingrahm 13:35: [id number] 00 Neuro confusion Neuro/Emot Resolve 2017-102019-02-06 Mercedez present ion d 0-16 11:15:00 Ingrahm 13:35: [id number] 00 Neuro depressive Neuro/Emot Resolve 2017-102019-02-06 Mercedez feelings ion d 0-16 11:15:00 Ingrahm present 13:35: [id number] 00 Safety can be left Safety Resolve 2017-102019-02-06 Mercedez alone for d 0-18 11:15:00 Ingrahm only short 08:10: [id number] periods 00 Integument surgical Integument Resolve 2017-102018-10-30 Shila wound d 1-15 10:10:00 Brian present 08:55: [id number] 00 Elimination GI drain or Eliminatio Resolve 2017-102019-02-06 Shila tube n d 1-15 11:15:00 Brian present 08:55: [id number] 00 Neuro anxiety Neuro/Emot Resolve 2017-102019-02-06 Shila present ion d 1-15 11:15:00 Brian 08:55: [id number] 00 Medication injectable Meds Resolve 2017-102019-02-06 Shila med d 1-15 11:15:00 Brian assistance 08:55: [id number] required 00 Safety fire risk Safety Resolve 2017-102019-02-06 Shila present d 1-15 11:15:00 Brian 13:00: [id number] 00 Elimination urinary Eliminatio Resolve 2019-02-06 Mercedez incontinenc n d 1- 11:15:00 Ingrahm e 14:20: [id number] 00 Pain frequent Pain Mgmt Resolve 2019-02-06 Mercedez pain d 2-15 11:15:00 Ingrahm 10:15: [id number] 00 Safety risk for Safety Unknown Leanna denis 02-06 Regeczi tion 15:45: [id number] 00 Respiratory lung sounds Respirator Resolve 2019-04-03 Leanna deficit y d 4-23 10:01:00 Regeczi 13:20: [id number] 00 Respiratory smoker Respirator Resolve 2019-04-03 Leanna y d 4-29 10:01:00 Regeczi 12:10: [id number] 00 Respiratory dyspnea Respirator Resolve 2019-06-05 Mercedez present y d 5-15 10:30:00 Ingrahm 09:00: [id number] 00 Integument surgical Integument Resolve 2019-03-27 Mercedez wound d 5-15 09:15:00 Ingrahm present 09:00: [id number] 00 Nutrition enteral Nutrition Resolve 2019-03-27 Mercedez therapy d 5-15 09:15:00 Ingrahm 09:00: [id number] 00 Elimination urinary Eliminatio Resolve 2019-04-10 Mercedez incontinenc n d 5-15 09:30:00 Ingrahm e 09:00: [id number] 00 Neuro confusion Neuro/Emot Active Mercedez present ion 5-15 Ingrahm 09:00: [id number] 00 Neuro anxiety Neuro/Emot Active 2018- Mercedez present ion 5-15 Ingrahm 09:00: [id number] 00 Neuro depressive Neuro/Emot Active 2018- Mercedez feelings ion 5-15 Ingrahm present 09:00: [id number] 00 Neuro impaired Neuro/Emot Active 2018- Mercedez decision-ma ion 5-15 Ingrahm sonali 09:00: [id number] 00 Activity self-care Activity Resolve 2019-05-20 Mercedez deficit d 5-15 11:15:00 Ingrahm 09:00: [id number] 00 Safety fall risk Safety Resolve 2019-07-17 Mercedez factor d 5-15 10:35:00 Ingrahm present 09:00: [id number] 00 Safety risk for Safety Resolve 2019-07-17 Mercedez hospitaliza d 5-15 10:35:00 Ingrahm tion 09:00: [id number] 00 Medication potential Meds Resolve 2019-03-27 Mercedez clinically d 5-15 09:15:00 Ingrahm significant 09:00: [id number] medication 00 issue Integument surgical Integument Resolve 2019-05-20 Mercedez wound d 7-12 11:15:00 Ingrahm present 10:00: [id number] 00 Nutrition enteral Nutrition Resolve 2019-06-26 Mercedez therapy d 7-12 10:35:00 Ingrahm 10:00: [id number] 00 Respiratory dyspnea Respirator Resolve 2019-08-07 Leanna present y d 06-26 10:25:00 Regeczi 10:35: [id number] 00 Respiratory smoker Respirator Resolve 2019-07-01 Leanna y d 06-26 10:15:00 Regeczi 10:35: [id number] 00 Endo/Han anti-coagul Endo/Han Resolve 2019-07-23 Leanna ation d 06-26 10:15:00 Regeczi therapy 10:35: [id number] 00 Elimination urinary Eliminatio Resolve 2019-07-23 Leanna incontinenc n d 06-26 10:15:00 Regeczi e 10:35: [id number] 00 Elimination nausea/vomi Eliminatio Resolve 2019-07-01 Leanna ting n d 06-26 10:15:00 Regeczi 10:35: [id number] 00 Integument surgical Integument Resolve 2019-07-23 Mercedez wound d 9-11 10:15:00 Ingrahm present 10:15: [id number] 00 Nutrition enteral Nutrition Resolve 2019-07-23 Mercedez therapy d 9 10:15:00 Ingrahm 10:15: [id number] 00 Respiratory smoker Respirator Resolve 2019-07-16 Leanna y d 07-16 10:05:00 Regeczi 10:05: [id number] 00 Elimination diarrhea Eliminatio Resolve 2019-07-23 Leanna n d 07-17 10:15:00 Regeczi 10:35: [id number] 00 Cardio hypertensio Cardiovasc Resolve 2018-102019-07-30 Leanna eastman d 003 10:00:00 Regeczi 10:15: [id number] 00 Safety risk for Safety Resolve 2018-102019-07-23 Leanna hospitaliza d 0-03 10:15:00 Regeczi tion 10:15: [id number] 00 24 Hr Diet knowledge/s NT: 24Hr Resolve 2018-102019-07-23 Wen kill Diet d 0-03 15:00:00 [place] deficit - 15:00: [id number] pt 00 Nutritional eating NT: Resolve 2018-102019-07-23 Wen Barrier difficultie Barriers d 0-03 15:00:00 [place] s present 15:00: [id number] Safety risk for Safety Resolve 2018-102019-08-07 Roseline hospitaliza d 0-04 10:25:00 [place] tion 14:00: [id number] 00 Social financial MURIEL: Active 2018-10 Ros[facility] Services resource Social 0-04 [place] deficit Services 14:00: [id number] 00 Social support MURIEL: Active 2018-10 [facility] deficit Social 0-04 [place] Services 14:00: [id number] 00 Social knowledge/s MURIEL: Active 2018-10 [facility] kill Social 0-04 [place] deficit - Services 14:00: [id number] pt 00 Social financial MURIEL: Unknown 2018-10 Mercedez Services resource Social 0-10 Ingrahm deficit Services 15:00: [id number] 00 Social knowledge/s MURIEL: Unknown 2018-10 Mercedez Services kill Social 0-10 Ingrahm deficit - Services 15:00: [id number] pt 00 Respiratory lung sounds Respirator Resolve 2018-102019-08-07 Leanna deficit y d 0-18 10:25:00 Regeczi 10:25: [id number] 00 Respiratory dyspnea Respirator Resolve 2018-102019-10-23 Mercedez present y d 10-28 10:15:00 Ingrahm 11:00: [id number] 00 Integument surgical Integument Resolve 2018-102019-09-11 Mercedez wound d 10-28 09:50:00 Ingrahm present 11:00: [id number] 00 Nutrition enteral Nutrition Resolve 2018-102019-09-11 Mercedez therapy d 10-28 09:50:00 Ingrahm 11:00: [id number] 00 Elimination urinary Eliminatio Resolve 2018-102019-09-11 Mercedez incontinenc n d 10-28 09:50:00 Ingrahm e 11:00: [id number] 00 Safety fall risk Safety Resolve 2018-102019-09-11 Mercedez factor d 10-28 09:50:00 Ingrahm present 11:00: [id number] 00 Safety risk for Safety Resolve 2018-2019-09-23 Mercedez hospitaliza d 10-28 11:10:00 Ingrahm tion 11:00: [id number] 00 Safety risk for Safety Unknown 2018-10 Mercedez hospitaliza 11-24 Ingrahm tion 15:00: [id number] 00 Cardio hypertensio Cardiovasc Active 2020-0 Leanna n ular 10-23 Regeczi 10:15: [id number] 00 Elimination urinary Eliminatio Active 2019-0 Leanna incontinenc n 10-23 Regeczi e 10:15: [id number] 00 Elimination constipatio Eliminatio Active 2019-0 Leanna n n 10-23 Regeczi 10:15: [id number] 00 Integument surgical Integument Active 2019-0 Mercedez wound 10-28 Ingrahm present 10:50: [id number] 00 Nutrition enteral Nutrition Active 2020-0 Mercedez therapy 10-28 Ingrahm 10:50: [id number] 00 Elimination UTI within Eliminatio Active 2019-0 Mercedez past 14 n - Ingrahm days 10:50: [id number] 00 Activity self-care Activity Active 2020-0 Mercedez deficit 10-28 Ingrahm 10:50: [id number] 00 Safety fall risk Safety Active 2020-0 Mercedez factor - Ingrahm present 10:50: [id number] 00 Safety risk for Safety Active 2020-0 Mercedez hospitaliza 10-28 Ingrahm tion 10:50: [id number] 00 Allergies, Adverse Reactions, Alerts Allergy Allergy Status Severity Reaction(s) Onset Inactive Treating Comments Name Type Date Date Clinician latex Base Active Unknown [id number] amox[facility] Base Active Unknown Anaphylaxis [facility] [id number] bee venom Base Active Unknown Anaphylaxis [facility] [id number] Botox Medication Active Unknown Anaphylaxis Mercedez Name ID 07-07 [facility] [id number] contrast Unknown Active Unknown Anaphylaxis Mercedez dye 07-07 [facility] [id number] Penicillins Allergen Active Unknown Anaphylaxis [facility] [id number] shellfish Base Active Unknown Anaphylaxis Mercedez derived Ingredient 07-07 [facility] [id number] adhesive Base Active Unknown Hives Mercedez tape Ingredient 07-07 [facility] [id number] nsaids Unknown Active Unknown stomach issues Mercedez 07-07 [facility] [id number] oxycodone Base Active Unknown swelling Mercedez Ingredient 07-07 [facility] [id number] Betadine Medication Active Unknown Rash Mercedez Name ID 07-07 [facility] [id number] Hibiclens Medication Active Unknown Rash Mercedez Name ID 07-07 [facility] [id number] evironmenta Unknown Active Unknown hay fever, Rea l/seasonal watery eye, 07-07 Guidelli itching, [id number] sneeze, congestion povidone-io Base Active Unknown itching Rea dine Ingredient 07-07 Guidelli [id number] Iodine and Allergen Active Unknown Anaphylaxis Rea Iodide Group 07-07 Guidelli Containing [id number] Products albumin Base Active Unknown Anaphylaxis Rea colloid, Ingredient 07-07 Guidelli human [id number] fentanyl Base Active Unknown hallucinations Rea Ingredient 07-07 Guidelli [id number] Medications Ordered Filled Start Stop Current Ordering Indication Dosage Frequency Signature Comments Components Medication Medication Date Date Medication? Clinician (SIG) Name Name Jevity 1.5 Jevity 1.5 2018- No Blegen Unknown Unknown Pineda 0.06 Pinead 0.06 07-07 Tashia FINCH gram-1.5 gram-1.5 e [...] Unknown bromide 17 bromide 17 0- 12- ,Tashia mcg/actuati mcg/actuati e on HFA on [...]
--- OUTSIDE RECORDS SUMMARY | 2019-12-19 17:47 | XMS REPORT ---
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/o artery w/o ang pctrs ang pctrs Encounter Encounter Diagnosis Active Mercedez for for 07-07 Ingrahm attention attention [id number] to to gastrostomy gastrostomy Gastro-esop Gastro-esop Diagnosis Active Mercedez hageal hageal 07-07 Ingrahm reflux reflux [id number] disease disease without without esophagitis esophagitis Other Other Diagnosis Active Mercedez specified specified 07-07 Ingrahm arthritis, arthritis, [id number] unspecified unspecified site site Essential Essential Diagnosis Active Mercedez (primary) (primary) 07-07 Ingrahm hypertensio hypertensio [id number] [facility] [employer] Diagnosis Active Mercedez (current) (current) Ingrahm use of use of [id number] anticoagula anticoagula nts nts Nicotine Nicotine Diagnosis Active Mercedez dependence, dependence, Ingrahm cigarettes, cigarettes, [id number] uncomplicat uncomplicat ed ed Personal Personal Diagnosis Active Mercedez history of history of Ingrahm malignant malignant [id number] neoplasm of neoplasm of breast breast Prsnl hx of Prsnl hx of Diagnosis Active Mercedez TIA (TIA), TIA (TIA), Ingrahm and cereb and cereb [id number] infrc w/o infrc w/o resid resid deficits deficits Pain frequent Pain Mgmt Resolve 2018-11-26 Ana pain d 9 16:15:00 [place] 13:30: [id number] 00 Pain severe pain Pain Mgmt Resolve 2018-11-26 Ana d 9 16:15:00 [place] 13:30: [id number] 00 Endo/Han anti-coagul Endo/Han Resolve 2019-02-06 Ana ation d 07-07 11:15:00 [place] therapy 13:30: [id number] 00 Integument surgical Integument Resolve 2018-08-05 Rea wound d 07-07 13:35:00 [place] present 13:30: [id number] 00 Nutrition nutritional Nutrition Resolve 2019-01-02 Ana restriction d 07-07 10:00:00 [place] s 13:30: [id number] 00 Nutrition changing Nutrition Resolve 2019-01-02 Ana weight/appe d 07-07 10:00:00 [place] tite 13:30: [id number] 00 Nutrition nutritional Nutrition Resolve 2019-01-02 Ana risk d 07-07 10:00:00 [place] 13:30: [id number] 00 Nutrition enteral Nutrition Resolve 2019-02-06 Ana therapy d 07-07 11:15:00 [place] 13:30: [id number] 00 Safety structural Safety Resolve 2019-02-06 Ana barriers d 07-07 11:15:00 [place] present 13:30: [id number] 00 Safety fall risk Safety Resolve 2019-02-06 Ana factor d 07-07 11:15:00 [place] present 13:30: [id number] 00 Safety risk for Safety Resolve 2019-02-06 Ana hospitaliza d 07-07 11:15:00 [place] tion 13:30: [id number] 00 Medication potential Meds Resolve 2019-02-06 Ana clinically d 07-07 11:15:00 [place] significant 13:30: [id number] medication 00 issue Musculoskel requires Musculoske Resolve 2019-02-06 Ana etal human letal d 07-07 11:15:00 [place] assist to 13:30: [id number] leave home 00 IV IV present IV Resolve 2019-02-06 Rea d 9-30 11:15:00 Lissette [id number] Respiratory dyspnea Respirator Resolve 2017-102019-02-06 Mercedez present y d 0-16 11:15:00 [place] 13:35: [id number] 00 Neuro confusion Neuro/Emot Resolve 2017-102019-02-06 Mercedez present ion d 0-16 11:15:00 [place] 13:35: [id number] 00 Neuro depressive Neuro/Emot Resolve 2017-102019-02-06 Mercedez feelings ion d 0-16 11:15:00 Ingrahm present 13:35: [id number] 00 Safety can be left Safety Resolve 2017-102019-02-06 Mercedez alone for d 0-18 11:15:00 Ingrahm only short 08:10: [id number] periods 00 Integument surgical Integument Resolve 2017-102018-10-30 Shila wound d 1-15 10:10:00 Brian present 08:55: [id number] 00 Elimination GI drain or Eliminatio Resolve 2017-102019-02-06 Shila tube n d 1-15 11:15:00 Brian present 08:55: [id number] 00 Neuro anxiety Neuro/Emot Resolve 2017-102019-02-06 Shila present ion d 1-15 11:15:00 Brian 08:55: [id number] 00 Medication injectable Meds Resolve 2017-102019-02-06 Shila med d 1-15 11:15:00 Brian assistance 08:55: [id number] required 00 Safety fire risk Safety Resolve 2017-102019-02-06 Shila present d 1-15 11:15:00 Brian 13:00: [id number] 00 Elimination urinary Eliminatio Resolve 2019-02-06 Mercedez incontinenc n d 1- 11:15:00 Ingrahm e 14:20: [id number] 00 Pain frequent Pain Mgmt Resolve 2019-02-06 Mercedez pain d 2-15 11:15:00 Ingrahm 10:15: [id number] 00 Safety risk for Safety Unknown Leanna denis 02-06 Regeczi tion 15:45: [id number] 00 Respiratory lung sounds Respirator Resolve 2019-04-03 Leanna deficit y d 4-23 10:01:00 Regeczi 13:20: [id number] 00 Respiratory smoker Respirator Resolve 2019-04-03 Leanna y d 4-29 10:01:00 Regeczi 12:10: [id number] 00 Respiratory dyspnea Respirator Resolve 2019-06-05 Mercedez present y d 5-15 10:30:00 Ingra[place] 09:00: [id number] 00 Integument surgical Integument Resolve 2019-03-27 Mercedez wound d 5-15 09:15:00 Ingrahm present 09:00: [id number] 00 Nutrition enteral Nutrition Resolve 2019-03-27 Mercedez therapy d 5-15 09:15:00 Ingra[place] 09:00: [id number] 00 Elimination urinary Eliminatio Resolve 2019-04-10 Mercedez incontinenc n d 5-15 09:30:00 Ingrahm e 09:00: [id number] 00 Neuro confusion Neuro/Emot Active Mercedez present ion 5-15 Ingrahm 09:00: [id number] 00 Neuro anxiety Neuro/Emot Active 2018- Mercedez present ion 5-15 Ingrahm 09:00: [id number] 00 Neuro depressive Neuro/Emot Active 2018- Mercedez feelings ion 5-15 Ingrahm present 09:00: [id number] 00 Neuro impaired Neuro/Emot Active 2018- Mercedez decision-ma ion 5-15 Ingrahm sonali 09:00: [id number] 00 Activity self-care Activity Resolve 2019-05-20 Mercedez deficit d 5-15 11:15:00 Ingra[place] 09:00: [id number] 00 Safety fall risk Safety Resolve 2019-07-17 Mercedez factor d 5-15 10:35:00 Ingrahm present 09:00: [id number] 00 Safety risk for Safety Resolve 2019-07-17 Mercedez hospitaliza d 5-15 10:35:00 Ingrahm tion 09:00: [id number] 00 Medication potential Meds Resolve 2019-03-27 Mercedez clinically d 5-15 09:15:00 Ingrahm significant 09:00: [id number] medication 00 issue Integument surgical Integument Resolve 2019-05-20 Mercedez wound d 7-12 11:15:00 Ingrahm present 10:00: [id number] 00 Nutrition enteral Nutrition Resolve 2019-06-26 Mercedez therapy d 7-12 10:35:00 Ingra[place] 10:00: [id number] 00 Respiratory dyspnea Respirator Resolve 2019-08-07 Leanna present y d 06-26 10:25:00 Regeczi 10:35: [id number] 00 Respiratory smoker Respirator Resolve 2019-07-01 Leanna y d 06-26 10:15:00 Regeczi 10:35: [id number] 00 Endo/Han anti-coagul Endo/Han Resolve 2019-07-23 Leanna ation d 06-26 10:15:00 Regeczi therapy 10:35: [id number] 00 Elimination urinary Eliminatio Resolve 2019-07-23 Leanna incontinenc n d 06-26 10:15:00 Regeczi e 10:35: [id number] 00 Elimination nausea/vomi Eliminatio Resolve 2019-07-01 Leanna ting n d 06-26 10:15:00 Regeczi 10:35: [id number] 00 Integument surgical Integument Resolve 2019-07-23 Mercedez wound d 9-11 10:15:00 Ingrahm present 10:15: [id number] 00 Nutrition enteral Nutrition Resolve 2019-07-23 Mercedez therapy d 9 10:15:00 Ingrahm 10:15: [id number] 00 Respiratory smoker Respirator Resolve 2019-07-16 Leanna y d 07-16 10:05:00 Regeczi 10:05: [id number] 00 Elimination diarrhea Eliminatio Resolve 2019-07-23 Leanna n d 07-17 10:15:00 Regeczi 10:35: [id number] 00 Cardio hypertensio Cardiovasc Resolve 2018-102019-07-30 Leanna eastman d 003 10:00:00 Regeczi 10:15: [id number] 00 Safety risk for Safety Resolve 2018-102019-07-23 Leanna hospitaliza d 0-03 10:15:00 Regeczi tion 10:15: [id number] 00 24 Hr Diet knowledge/s NT: 24Hr Resolve 2018-102019-07-23 Wen kill Diet d 0-03 15:00:00 [place] deficit - 15:00: [id number] pt 00 Nutritional eating NT: Resolve 2018-102019-07-23 Wen Barrier difficultie Barriers d 0-03 15:00:00 Barling s present 15:00: [id number] Safety risk for Safety Resolve 2018-102019-08-07 Roseline hospitaliza d 0-04 10:25:00 [place] tion 14:00: [id number] 00 Social financial MURIEL: Active 2018-10 [facility] Services resource Social 0-04 [place] deficit Services 14:00: [id number] 00 Social support MURIEL: Active 2018-10 [facility] deficit Social 0-04 [place] Services 14:00: [id number] 00 Social knowledge/s MURIEL: Active 2018-10 [facility] kill Social 0-04 [place] deficit - Services 14:00: [id number] pt 00 Social financial MURIEL: Unknown 2018-10 [facility]ez Services resource Social 0-10 Ingrahm deficit Services 15:00: [id number] 00 Social knowledge/s MURIEL: Unknown 2018-10 [facility] Services kill Social 0-10 Ingrahm deficit - Services 15:00: [id number] pt 00 Respiratory lung sounds Respirator Resolve 2018-102019-08-07 Leanna deficit y d 0-18 10:25:00 Regeczi 10:25: [id number] 00 Respiratory dyspnea Respirator Resolve 2018-102019-10-23 Mercedez present y d 10-28 10:15:00 Ingra[place] 11:00: [id number] 00 Integument surgical Integument Resolve 2018-102019-09-11 Mercdeez wound d 10-28 09:50:00 Ingrahm present 11:00: [id number] 00 Nutrition enteral Nutrition Resolve 2018-102019-09-11 Mercedez therapy d 10-28 09:50:00 Ingrahm 11:00: [id number] 00 Elimination urinary Eliminatio Resolve 2018-102019-09-11 Mercedez incontinenc n d 10-28 09:50:00 Ingrahm e 11:00: [id number] 00 Safety fall risk Safety Resolve 2018-102019-09-11 Mercedez factor d 10-28 09:50:00 Ingrahm present 11:00: [id number] 00 Safety risk for Safety Resolve 2018-102019-09-23 Mercdeez hospitaliza d 10-28 11:10:00 Ingrahm tion 11:00: [id number] 00 Safety risk for Safety Unknown 2018-10 Mercedez hospitaliza 11-24 Ingrahm tion 15:00: [id number] 00 Cardio hypertensio Cardiovasc Active Leanna n ular 10-23 Regeczi 10:15: [id number] 00 Elimination urinary Eliminatio Resolve 2019-11-05 Leanna incontinenc n d 10-23 10:23:00 Regeczi e 10:15: [id number] 00 Elimination constipatio Eliminatio Resolve 2019-11-05 Leanna n n d 10-23 10:23:00 Regeczi 10:15: [id number] 00 Integument surgical Integument Active Mercedez wound 10-28 Ingrahm present 10:50: [id number] 00 Nutrition enteral Nutrition Active Mercedez therapy 10-28 Ingrahm 10:50: [id number] 00 Elimination UTI within Eliminatio Resolve 2019-11-05 Mercedez past 14 n d 10-28 10:23:00 Ingrahm days 10:50: [id number] 00 Activity self-care Activity Resolve 2019-11-05 Mercedez deficit d 10-28 10:23:00 Ingrahm 10:50: [id number] 00 Safety fall risk Safety Resolve 2019-11-05 Mercedez factor d 10-28 10:23:00 Ingrahm present 10:50: [id number] 00 Safety risk for Safety Resolve 2019-11-05 Mercedez hospitaliza d 10-28 10:23:00 Ingrahm tion 10:50: [id number] 00 Allergies, Adverse Reactions, Alerts Allergy Allergy Status Severity Reaction(s) Onset Inactive Treating Comments Name Type Date Date Clinician latex Base Active Unknown Hives Mercedez Ingredient 07-07 Ingrahm [id number] amoxicillin Base Active Unknown Anaphylaxis Mercedez Ingredient 07-07 [facility] [id number] bee venom Base Active Unknown Anaphylaxis Mercedez protein Ingredient 07-07 [facility] (honey bee) [id number] Botox Medication Active Unknown Anaphylaxis Mercedez Name ID 07-07 [facility] [id number] contrast Unknown Active Unknown Anaphylaxis Mercedez dye 07-07 [facility] [id number] Penicillins Allergen Active Unknown Anaphylaxis Mercedez Group 07-07 [facility] [id number] shellfish Base Active Unknown Anaphylaxis Mercedez derived Ingredient 07-07 [facility] [id number] adhesive Base Active Unknown Hives Mercedez tape Ingredient 07-07 [facility] [id number] nsaids Unknown Active Unknown stomach issues Mercedez 07-07 [facility] [id number] oxycodone Base Active Unknown swelling Mercedez Ingredient 07-07 [facility] [id number] Betadine Medication Active Unknown Rash Mercedez Name ID 07-07 [facility] [id number] Hibiclens Medication Active Unknown Rash Mercedez Name ID 07-07 [facility] [id number] evironmenta Unknown Active Unknown hay fever, Rea l/seasonal watery eye, 07-07 Guidelli itching, [id number] sneeze, congestion povidone-io Base Active Unknown itching Rea dine Ingredient 07-07 Guidelli [id number] Iodine and Allergen Active Unknown Anaphylaxis Rea Iodide Group 07-07 Guidelli Containing [id number] Products albumin Base Active Unknown Anaphylaxis Rea colloid, Ingredient 07-07 Guidelli human [id number] fentanyl Base Active Unknown hallucinations Rea Ingredient 07-07 Guidelli [id number] Medications Ordered Filled Start Stop Current Ordering Indication Dosage Frequency Signature Comments Components Medication Medication Date Date Medication? Clinician (SIG) Name Name Jevity 1.5 Jevity 1.5 2019- No Blegen Unknown Unknown Pineda 0.06 Pineda 0.06 07-07 Tashia FINCH gram-1.5 gram-1.5 e kcal/mL kcal/mL oral liquid oral liquid cyanocobala cyanocobala 2018- No Blegen Unknown Unknown min (vit [...] Blegen Unknown Unknown 75 mg 75 mg 1-06 ,Tashia tablet tablet e diphenhydrA diphenhydrA 2018- No Blegen Unknown Unknown MINE 50 mg MINE 50 mg 10-26- ,Tashia capsule capsule e pantoprazol pantoprazol 2018- No Blegen Unknown Unknown e 40 mg e 40 mg 10-26 05-15 ,Tashia tablet,linda tablet,linda e yed release yed release morphine ER morphine ER 2018- No Blegen Unknown Unknown 30 mg 30 mg 10-26 04-24 ,Tashia tablet,exte tablet,exte e nded nded release release HYDROmorpho HYDROmorpho No [place] Unknown Unknown ne 4 mg ne 4 mg 3- ,[place]las tablet tablet diphenhydrA diphenhydrA 2018- No Blegen Unknown Unknown MINE 50 mg MINE 50 mg 10-26 09- Tashia FINCH capsule capsule e ondansetron ondansetron [...] Unknown Unknown 100 mg 100 mg 02-16 11- Tashia FINCH tablet tablet e morphine ER [...] Unknown Unknown tartrate 25 tartrate 25 0-03 -21 Tashia FINCH mg tablet mg tablet e Spiriva Spiriva 2018-10- No Blegen Unknown Unknown Respimat Respimat 0-07 10-21 Tashia FINCH 2.5 2.5 e mcg/actuati mcg/actuati on solution on solution for for inhalation inhalation spironolact spironolact 2018-10 No Blegen Unknown Unknown one 25 mg one 25 mg 0-21 ,Tashia tablet tablet e ipratropium ipratropium 2018-10- No [...] Unknown Unknown tartrate 25 tartrate 25 - ,Tashia mg tablet mg tablet e ciprofloxac ciprofloxac 2018-10- Yes Blegen Unknown Unknown in 500 mg in 500 mg 11-18 ,Tashia tablet tablet e Spiriva Spiriva 2018-10 Yes Blegen Unknown Unknown Respimat Respimat 2-05 ,Tashia 2.5 2.5 e mcg/actuati mcg/actuati on solution on solution for for inhalation inhalation losartan losartan 2018-10 Yes Blegen Unknown Unknown 100 mg 100 mg 2-05 Tashia FINCH tablet tablet e azelastine azelastine Yes Blegen Unknown Unknown 0.05 % eye 0.05 % eye 10-23 Tashia FINCH drops drops e ketotifen ketotifen Yes Blegen Unknown Unknown 0.025 % 0.025 % - Tashia FINCH (0.035 %) (0.035 %) e eye drops eye drops ciprofloxac ciprofloxac Yes Blegen Unknown Unknown in 500 mg in 500 mg 10-28 Tashia FINCH tablet tablet e Vital Signs Vital Name Observation Time Observation Value Comments SYSTOLIC mm[Hg] 2019-11-12 18:10:01 166 mm[Hg] mm[Hg] Method: Sit SYSTOLIC mm[Hg] 2018-11-27 18:04:11 142 mm[Hg] mm[Hg] Method: Stand SYSTOLIC mm[Hg] 2019-06-27 18:07:43 122 mm[Hg] mm[Hg] Method: Lie DIASTOLIC mm[Hg] 2019-11-12 18:10:01 86 mm[Hg] mm[Hg] Method: Sit DIASTOLIC mm[Hg] 2018-11-27 18:04:11 84 mm[Hg] mm[Hg] Method: Stand DIASTOLIC mm[Hg] 2019-06-27 18:07:43 50 mm[Hg] mm[Hg] Method: Lie PULSE 2019-11-12 18:10:01 76 /min /min TEMP 2019-11-12 18:10:01 97.4 [degF] Procedures This patient has no known procedures. Results This patient has no known results.
--- OUTSIDE RECORDS SUMMARY | 2019-12-19 17:47 | XMS REPORT ---
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 [id number] teller teller coronary coronary artery w/o artery w/o ang pctrs ang pctrs Encounter Encounter Diagnosis Active [facility]ez for for 07-07 [facility] attention attention [id number] to to gastrostomy gastrostomy Gastro-esop Gastro-esop Diagnosis Active Mer[facility]ez hageal hageal 07-07 Ingrahm reflux reflux [id number] disease disease without without esophagitis esophagitis Other Other Diagnosis Active [facility]ez specified specified 07-07 Ingrahm arthritis, arthritis, [id number] unspecified unspecified site site Essential Essential Diagnosis Active [facility] (primary) (primary) 07-07 Ingrahm hypertensio hypertensio [id number] n n [facility] 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 Diagnosis Active [facility] (current) (current) Ingrahm use of use of [id number] anticoagula anticoagula nts nts Nicotine Nicotine Diagnosis Active [facility] dependence, dependence, In[place]hm cigarettes, cigarettes, [id number] uncomplicat uncomplicat ed ed Personal Personal Diagnosis Active [facility] history of history of [facility] malignant malignant [id number] neoplasm of neoplasm of breast breast Prsnl hx of Prsnl hx of Diagnosis Active [facility]ez TIA (TIA), TIA (TIA), In[place] and cereb and cereb [id number] infrc w/o infrc w/o resid resid deficits deficits Pain frequent Pain Mgmt Resolve 2018-11-26 Ana pain d 9 16:15:00 [place] 13:30: [id number] 00 Pain severe pain Pain Mgmt Resolve 2018-11-26 Ana d 9 16:15:00 [place] 13:30: [id number] 00 Endo/Han anti-coagul Endo/Han Resolve 2019-02-06 Ana ation d 07-07 11:15:00 [place] therapy 13:30: [id number] 00 Integument surgical Integument Resolve 2018-08-05 Rea wound d 07-07 13:35:00 [place] present 13:30: [id number] 00 Nutrition nutritional Nutrition Resolve 2019-01-02 Ana restriction d 07-07 10:00:00 [place] s 13:30: [id number] 00 Nutrition changing Nutrition Resolve 2019-01-02 Ana weight/appe d 07-07 10:00:00 [place] tite 13:30: [id number] 00 Nutrition nutritional Nutrition Resolve 2019-01-02 Ana risk d 07-07 10:00:00 [place] 13:30: [id number] 00 Nutrition enteral Nutrition Resolve 2019-02-06 Ana therapy d 07-07 11:15:00 [place] 13:30: [id number] 00 Safety structural Safety Resolve 2019-02-06 Ana barriers d 07-07 11:15:00 [place] present 13:30: [id number] 00 Safety fall risk Safety Resolve 2019-02-06 Ana factor d 07-07 11:15:00 [place] present 13:30: [id number] 00 Safety risk for Safety Resolve 2019-02-06 Ana hospitaliza d 07-07 11:15:00 [place] tion 13:30: [id number] 00 Medication potential Meds Resolve 2019-02-06 Ana clinically d 07-07 11:15:00 [place] significant 13:30: [id number] medication 00 issue Musculoskel requires Musculoske Resolve 2019-02-06 Ana etal human letal d 07-07 11:15:00 [place] assist to 13:30: [id number] leave home 00 IV IV present IV Resolve 2019-02-06 Rea d 9-30 11:15:00 Lissette [id number] Respiratory dyspnea Respirator Resolve 2017-102019-02-06 [facility] present y d 0-16 11:15:00 [place] 13:35: [id number] 00 Neuro confusion Neuro/Emot Resolve 2017-102019-02-06 [facility] present ion d 0-16 11:15:00 [place] 13:35: [id number] 00 Neuro depressive Neuro/Emot Resolve 2017-102019-02-06 [facility] feelings ion d 0-16 11:15:00 [place] present 13:35: [id number] 00 Safety can be left Safety Resolve 2017-102019-02-06 [facility] alone for d 0-18 11:15:00 [place] only short 08:10: [id number] periods 00 Integument surgical Integument Resolve 2017-102018-10-30 Shila wound d 1-15 10:10:00 Brian present 08:55: [id number] 00 Elimination GI drain or Eliminatio Resolve 2017-102019-02-06 Shila tube n d 1-15 11:15:00 Brian present 08:55: [id number] 00 Neuro anxiety Neuro/Emot Resolve 2017-102019-02-06 Shila present ion d 1-15 11:15:00 Brian 08:55: [id number] 00 Medication injectable Meds Resolve 2017-102019-02-06 Shila med d 1-15 11:15:00 Brian assistance 08:55: [id number] required 00 Safety fire risk Safety Resolve 2017-102019-02-06 Shila present d 1-15 11:15:00 Brian 13:00: [id number] 00 Elimination urinary Eliminatio Resolve 2019-02-06 [facility] incontinenc n d 1- 11:15:00 In[place] e 14:20: [id number] 00 Pain frequent Pain Mgmt Resolve 2019-02-06 [facility] pain d 2-15 11:15:00 [place] 10:15: [id number] 00 Safety risk for Safety Unknown Leanna denis 02-06 Re[place] tion 15:45: [id number] 00 Respiratory lung sounds Respirator Resolve 2019-04-03 Leanna deficit y d 4-23 10:01:00 Regeczi 13:20: [id number] 00 Respiratory smoker Respirator Resolve 2019-04-03 Leanna y d 4-29 10:01:00 Regeczi 12:10: [id number] 00 Respiratory dyspnea Respirator Resolve 2019-06-05 [facility] present y d 5-15 10:30:00 [place] 09:00: [id number] 00 Integument surgical Integument Resolve 2019-03-27 [facility] wound d 5-15 09:15:00 In[place] present 09:00: [id number] 00 Nutrition enteral Nutrition Resolve 2019-03-27 [facility]ez therapy d 5-15 09:15:00 [place] 09:00: [id number] 00 Elimination urinary Eliminatio Resolve 2019-04-10 [facility] incontinenc n d 5-15 09:30:00 Ingrahm e 09:00: [id number] 00 Neuro confusion Neuro/Emot Active [facility] present ion 5-15 In[place] 09:00: [id number] 00 Neuro anxiety Neuro/Emot Active 2018- [facility] present ion 5-15 Ingra[facility] 09:00: [id number] 00 Neuro depressive Neuro/Emot Active 2018- [facility]ez feelings ion 5-15 Ingra[facility] present 09:00: [id number] 00 Neuro impaired Neuro/Emot Active 2018- [facility] decision-ma ion 5-15 Ingrahm sonali 09:00: [id number] 00 Activity self-care Activity Resolve 2019-05-20 [facility] deficit d 5-15 11:15:00 [place] 09:00: [id number] 00 Safety fall risk Safety Resolve 2019-07-17 Mer[facility]ez factor d 5-15 10:35:00 Ingra[place] present 09:00: [id number] 00 Safety risk for Safety Resolve 2019-07-17 Mercedez hospitaliza d 5-15 10:35:00 Ingrahm tion 09:00: [id number] 00 Medication potential Meds Resolve 2019-03-27 Mercedez clinically d 5-15 09:15:00 Ingrahm significant 09:00: [id number] medication 00 issue Integument surgical Integument Resolve 2019-05-20 Mer[facility]ez wound d 7-12 11:15:00 Ingrahm present 10:00: [id number] 00 Nutrition enteral Nutrition Resolve 2019-06-26 Mer[facility]ez therapy d 7-12 10:35:00 [place] 10:00: [id number] 00 Respiratory dyspnea Respirator Resolve 2019-08-07 Leanna present y d 06-26 10:25:00 Regeczi 10:35: [id number] 00 Respiratory smoker Respirator Resolve 2019-07-01 Leanna y d 06-26 10:15:00 Regeczi 10:35: [id number] 00 Endo/Han anti-coagul Endo/Han Resolve 2019-07-23 Leanna ation d 06-26 10:15:00 Regeczi therapy 10:35: [id number] 00 Elimination urinary Eliminatio Resolve 2019-07-23 Leanna incontinenc n d 06-26 10:15:00 Regeczi e 10:35: [id number] 00 Elimination nausea/vomi Eliminatio Resolve 2019-07-01 Leanna ting n d 06-26 10:15:00 Regeczi 10:35: [id number] 00 Integument surgical Integument Resolve 2019-07-23 [facility] wound d 9-11 10:15:00 Ingra[place] present 10:15: [id number] 00 Nutrition enteral Nutrition Resolve 2019-07-23 Mer[facility]ez therapy d 9 10:15:00 Ingra[place] 10:15: [id number] 00 Respiratory smoker Respirator Resolve 2019-07-16 Leanna y d 07-16 10:05:00 Regeczi 10:05: [id number] 00 Elimination diarrhea Eliminatio Resolve 2019-07-23 Leanna n d 07-17 10:15:00 Regeczi 10:35: [id number] 00 Cardio hypertensio Cardiovasc Resolve 2018-102019-07-30 Leanna eastman d 003 10:00:00 Regeczi 10:15: [id number] 00 Safety risk for Safety Resolve 2018-102019-07-23 Leanna hospitaliza d 0-03 10:15:00 Regeczi tion 10:15: [id number] 00 24 Hr Diet knowledge/s NT: 24Hr Resolve 2018-102019-07-23 Wen kill Diet d 0-03 15:00:00 [place] deficit - 15:00: [id number] pt 00 Nutritional eating NT: Resolve 2018-102019-07-23 Wen Barrier difficultie Barriers d 0-03 15:00:00 [place] s present 15:00: [id number] Safety risk for Safety Resolve 2018-102019-08-07 [facility] hospitaliza d 0-04 10:25:00 [place] tion 14:00: [id number] 00 Social financial MURIEL: Active 2018-10 [facility] resource Social 0-04 [place] deficit Services 14:00: [id number] 00 Social support MURIEL: Active 2018-10 [facility] deficit Social 0-04 [place] [facility] 14:00: [id number] 00 Social knowledge/s MURIEL: Active 2018-10 [facility] kill Social 0-04 [place] deficit - Services 14:00: [id number] pt 00 Social financial MURIEL: Unknown 2018-10 [facility] Services resource Social 0-10 [facility] deficit Services 15:00: [id number] 00 Social knowledge/s MURIEL: Unknown 2018-10 [facility] Services kill Social 0-10 In[facility] deficit - Services 15:00: [id number] pt 00 Respiratory lung sounds Respirator Resolve 2018-102019-08-07 Leanna deficit y d 0-18 10:25:00 Regeczi 10:25: [id number] 00 Respiratory dyspnea Respirator Resolve 2018-102019-10-23 Mer[facility]ez present y d 10-28 10:15:00 In[place] 11:00: [id number] 00 Integument surgical Integument Resolve 2018-102019-09-11 [facility]ez wound d 10-28 09:50:00 Ingrahm present 11:00: [id number] 00 Nutrition enteral Nutrition Resolve 2018-102019-09-11 Mer[facility]ez therapy d 10-28 09:50:00 In[place] 11:00: [id number] 00 Elimination urinary Eliminatio Resolve 2018-102019-09-11 Mer[facility]ez incontinenc n d 10-28 09:50:00 Ingrahm e 11:00: [id number] 00 Safety fall risk Safety Resolve 2018-102019-09-11 Mer[facility]ez factor d 10-28 09:50:00 In[place] present 11:00: [id number] 00 Safety risk for Safety Resolve 2018-102019-09-23 Mer[facility] hospitaliza d 10-28 11:10:00 Ingra[place] tion 11:00: [id number] 00 Safety risk for Safety Unknown 2018-10 Mer[facility]ez hospitaliza 11-24 Ingrahm tion 15:00: [id number] 00 Cardio hypertensio Cardiovasc Active Leanna n ular 10-23 Regeczi 10:15: [id number] 00 Elimination urinary Eliminatio Resolve 2019-11-05 Leanna incontinenc n d 10-23 10:23:00 Regeczi e 10:15: [id number] 00 Elimination constipatio Eliminatio Resolve 2019-11-05 Leanna n n d 10-23 10:23:00 Regeczi 10:15: [id number] 00 Integument surgical Integument Active Mer[facility]ez wound 10-28 Ingrahm present 10:50: [id number] 00 Nutrition enteral Nutrition Active Mercedez therapy 10-28 Ingrahm 10:50: [id number] 00 Elimination UTI within Eliminatio Resolve 2019-11-05 Mercedez past 14 n d 10-28 10:23:00 Ingrahm days 10:50: [id number] 00 Activity self-care Activity Resolve 2019-11-05 [facility] deficit d 10-28 10:23:00 Ingrahm 10:50: [id number] 00 Safety fall risk Safety Resolve 2019-11-05 Mercedez factor d 10-28 10:23:00 Ingrahm present 10:50: [id number] 00 Safety risk for Safety Resolve 2019-11-05 Mercedez hospitaliza d 10-28 10:23:00 Ingrahm tion 10:50: [id number] 00 Allergies, Adverse Reactions, Alerts Allergy Allergy Status Severity Reaction(s) Onset Inactive Treating Comments Name Type Date Date Clinician latex Base Active Unknown Hives [facility] Ingredient 07-07 Ingrahm [id number] amoxicillin Base Active Unknown Anaphylaxis [facility] Ingredient 07-07 [facility] [id number] bee venom Base Active Unknown Anaphylaxis [facility] protein Ingredient 07-07 [facility] (honey bee) [id number] Botox Medication Active Unknown Anaphylaxis [facility]ez Name ID 07-07 [facility] [id number] contrast Unknown Active Unknown Anaphylaxis Mer[facility]ez dye 07-07 [facility] [id number] Penicillins Allergen Active Unknown Anaphylaxis [facility] Group 07-07 [facility] [id number] shellfish Base Active Unknown Anaphylaxis [facility] derived Ingredient 07-07 [facility] [id number] adhesive Base Active Unknown Hives [facility] tape Ingredient 07-07 [facility] [id number] nsaids Unknown Active Unknown stomach issues Mercedez 07-07 [facility] [id number] oxycodone Base Active Unknown swelling [facility]ez Ingredient 07-07 [facility] [id number] Betadine Medication Active Unknown Rash [facility]ez Name ID 07-07 [facility] [id number] Hibiclens Medication Active Unknown Rash Mer[facility]ez Name ID 07-07 [facility] [id number] evironmenta Unknown Active Unknown hay fever, Rea l/seasonal watery eye, 07-07 [facility] itching, [id number] sneeze, congestion povidone-io Base Active Unknown itching Rea dine Ingredient 07-07 Guid[facility] [id number] Iodine and Allergen Active Unknown Anaphylaxis Rea Iodide Group 07-07 Guid[place] Containing [id number] Products albumin Base Active Unknown Anaphylaxis Rea colloid, Ingredient 07-07 Guidelli human [id number] fentanyl Base Active Unknown hallucinations Rea Ingredient 07-07 [facility] [id number] Medications Ordered Filled Start Stop Current Ordering [...] e 40 mg 07-07 Tashia FINCH tablet,linda tablet,ilnda e yed release yed release morphine ER [...]
--- OUTSIDE RECORDS SUMMARY | 2019-12-19 17:47 | XMS REPORT ---
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 [place] tu[place] coronary coronary artery w/o artery w/o ang pctrs ang pctrs Encounter Encounter Diagnosis Active Mer[facility]ez for for 07-07 Ingrahm attention attention [id number] to to gastrostomy gastrostomy Gastro-esop Gastro-esop Diagnosis Active Mercedez hageal hageal 07-07 Ingrahm reflux reflux [id number] disease disease without without esophagitis esophagitis Other Other Diagnosis Active Mercedez specified specified 07-07 Ingrahm arthritis, arthritis, [id number] unspecified unspecified site site Essential Essential Diagnosis Active Mercedez (primary) (primary) 07-07 Ingrahm hypertensio hypertensio 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 [facility]ez (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) (current) Ingrahm use of use of [id number] anticoagula anticoagula nts nts Nicotine Nicotine Diagnosis Active Mer[facility]ez dependence, dependence, Ingrahm cigarettes, cigarettes, [id number] uncomplicat uncomplicat ed ed Personal Personal Diagnosis Active Mer[facility]ez history of history of Ingrahm malignant malignant [id number] neoplasm of neoplasm of breast breast Prsnl hx of Prsnl hx of Diagnosis Active Mercedez TIA (TIA), TIA (TIA), Ingrahm and cereb and cereb [id number] infrc w/o infrc w/o resid resid deficits deficits Pain frequent Pain Mgmt Resolve 2018-11-26 Ana pain d 9 16:15:00 [place] 13:30: [id number] 00 Pain severe pain Pain Mgmt Resolve 2018-11-26 Ana d 9 16:15:00 [place] 13:30: [id number] 00 Endo/Han anti-coagul Endo/Han Resolve 2019-02-06 Ana ation d 07-07 11:15:00 [place] therapy 13:30: [id number] 00 Integument surgical Integument Resolve 2018-08-05 Rea wound d 07-07 13:35:00 [place] present 13:30: [id number] 00 Nutrition nutritional Nutrition Resolve 2019-01-02 Ana restriction d 07-07 10:00:00 [place] s 13:30: [id number] 00 Nutrition changing Nutrition Resolve 2019-01-02 Ana weight/appe d 07-07 10:00:00 [place] tite 13:30: [id number] 00 Nutrition nutritional Nutrition Resolve 2019-01-02 Ana risk d 07-07 10:00:00 [place] 13:30: [id number] 00 Nutrition enteral Nutrition Resolve 2019-02-06 Ana therapy d 07-07 11:15:00 [place] 13:30: [id number] 00 Safety structural Safety Resolve 2019-02-06 Ana barriers d 07-07 11:15:00 [place] present 13:30: [id number] 00 Safety fall risk Safety Resolve 2019-02-06 Ana factor d 07-07 11:15:00 [place] present 13:30: [id number] 00 Safety risk for Safety Resolve 2019-02-06 Ana hospitaliza d 07-07 11:15:00 [place] tion 13:30: [id number] 00 Medication potential Meds Resolve 2019-02-06 Ana clinically d 07-07 11:15:00 [place] significant 13:30: [id number] medication 00 issue Musculoskel requires Musculoske Resolve 2019-02-06 Ana etal human letal d 07-07 11:15:00 [place] assist to 13:30: [id number] leave home 00 IV IV present IV Resolve 2019-02-06 Rea d 9-30 11:15:00 Lissette [id number] Respiratory dyspnea Respirator Resolve 2017-102019-02-06 Mer[facility]ez present y d 0-16 11:15:00 [place] 13:35: [id number] 00 Neuro confusion Neuro/Emot Resolve 2017-102019-02-06 Mer[facility]ez present ion d 0-16 11:15:00 In[place] 13:35: [id number] 00 Neuro depressive Neuro/Emot Resolve 2017-102019-02-06 Mer[facility]ez feelings ion d 0-16 11:15:00 Ingra[place] present 13:35: [id number] 00 Safety can be left Safety Resolve 2017-102019-02-06 Mercedez alone for d 0-18 11:15:00 Ingrahm only short 08:10: [id number] periods 00 Integument surgical Integument Resolve 2017-102018-10-30 Shila wound d 1-15 10:10:00 Brian present 08:55: [id number] 00 Elimination GI drain or Eliminatio Resolve 2017-102019-02-06 Shila tube n d 1-15 11:15:00 Brian present 08:55: [id number] 00 Neuro anxiety Neuro/Emot Resolve 2017-102019-02-06 Shila present ion d 1-15 11:15:00 Brian 08:55: [id number] 00 Medication injectable Meds Resolve 2017-102019-02-06 Shila med d 1-15 11:15:00 Brian assistance 08:55: [id number] required 00 Safety fire risk Safety Resolve 2017-102019-02-06 Shila present d 1-15 11:15:00 Brian 13:00: [id number] 00 Elimination urinary Eliminatio Resolve 2019-02-06 Mercedez incontinenc n d 1- 11:15:00 Ingrahm e 14:20: [id number] 00 Pain frequent Pain Mgmt Resolve 2019-02-06 Mercedez pain d 2-15 11:15:00 Ingrahm 10:15: [id number] 00 Safety risk for Safety Unknown Leanna denis 02-06 Regeczi tion 15:45: [id number] 00 Respiratory lung sounds Respirator Resolve 2019-04-03 Leanna deficit y d 4-23 10:01:00 Regeczi 13:20: [id number] 00 Respiratory smoker Respirator Resolve 2019-04-03 Leanna y d 4-29 10:01:00 Regeczi 12:10: [id number] 00 Respiratory dyspnea Respirator Resolve 2019-06-05 Mercedez present y d 5-15 10:30:00 Ingrahm 09:00: [id number] 00 Integument surgical Integument Resolve 2019-03-27 Mercedez wound d 5-15 09:15:00 Ingrahm present 09:00: [id number] 00 Nutrition enteral Nutrition Resolve 2019-03-27 Mercedez therapy d 5-15 09:15:00 Ingrahm 09:00: [id number] 00 Elimination urinary Eliminatio Resolve 2019-04-10 Mercedez incontinenc n d 5-15 09:30:00 Ingrahm e 09:00: [id number] 00 Neuro confusion Neuro/Emot Active Mercedez present ion 5-15 Ingrahm 09:00: [id number] 00 Neuro anxiety Neuro/Emot Active 2018- Mercedez present ion 5-15 Ingrahm 09:00: [id number] 00 Neuro depressive Neuro/Emot Active 2018- Mercedez feelings ion 5-15 Ingrahm present 09:00: [id number] 00 Neuro impaired Neuro/Emot Active 2018- Mercedez decision-ma ion 5-15 Ingrahm sonali 09:00: [id number] 00 Activity self-care Activity Resolve 2019-05-20 Mercedez deficit d 5-15 11:15:00 Ingrahm 09:00: [id number] 00 Safety fall risk Safety Resolve 2019-07-17 Mercedez factor d 5-15 10:35:00 Ingrahm present 09:00: [id number] 00 Safety risk for Safety Resolve 2019-07-17 Mercedez hospitaliza d 5-15 10:35:00 Ingrahm tion 09:00: [id number] 00 Medication potential Meds Resolve 2019-03-27 Mercedez clinically d 5-15 09:15:00 Ingrahm significant 09:00: [id number] medication 00 issue Integument surgical Integument Resolve 2019-05-20 Mercedez wound d 7-12 11:15:00 Ingrahm present 10:00: [id number] 00 Nutrition enteral Nutrition Resolve 2019-06-26 Mercedez therapy d 7-12 10:35:00 Ingrahm 10:00: [id number] 00 Respiratory dyspnea Respirator Resolve 2019-08-07 Leanna present y d 06-26 10:25:00 Regeczi 10:35: [id number] 00 Respiratory smoker Respirator Resolve 2019-07-01 Leanna y d 06-26 10:15:00 Regeczi 10:35: [id number] 00 Endo/Han anti-coagul Endo/Han Resolve 2019-07-23 Leanna ation d 06-26 10:15:00 Regeczi therapy 10:35: [id number] 00 Elimination urinary Eliminatio Resolve 2019-07-23 Leanna incontinenc n d 06-26 10:15:00 Regeczi e 10:35: [id number] 00 Elimination nausea/vomi Eliminatio Resolve 2019-07-01 Leanna ting n d 06-26 10:15:00 Regeczi 10:35: [id number] 00 Integument surgical Integument Resolve 2019-07-23 Mercedez wound d 9-11 10:15:00 Ingrahm present 10:15: [id number] 00 Nutrition enteral Nutrition Resolve 2019-07-23 Mercedez therapy d 9 10:15:00 Ingrahm 10:15: [id number] 00 Respiratory smoker Respirator Resolve 2019-07-16 Leanna y d 07-16 10:05:00 Regeczi 10:05: [id number] 00 Elimination diarrhea Eliminatio Resolve 2019-07-23 Leanna n d 07-17 10:15:00 Regeczi 10:35: [id number] 00 Cardio hypertensio Cardiovasc Resolve 2018-102019-07-30 Leanna eastman d 003 10:00:00 Regeczi 10:15: [id number] 00 Safety risk for Safety Resolve 2018-102019-07-23 Leanna hospitaliza d 0-03 10:15:00 Regeczi tion 10:15: [id number] 00 24 Hr Diet knowledge/s NT: 24Hr Resolve 2018-102019-07-23 Wen kill Diet d 0-03 15:00:00 [place] deficit - 15:00: [id number] pt 00 Nutritional eating NT: Resolve 2018-102019-07-23 Wen Barrier difficultie Barriers d 0-03 15:00:00 Peridot s present 15:00: [id number] Safety risk for Safety Resolve 2018-102019-08-07 Roseline hospitaliza d 0-04 10:25:00 [place] tion 14:00: [id number] 00 Social financial MURIEL: Active 2018-10 [facility] Services resource Social 0-04 [place] deficit Services 14:00: [id number] 00 Social support MURIEL: Active 2018-10 [facility] deficit Social 0-04 [place] Services 14:00: [id number] 00 Social knowledge/s MURIEL: Active 2018-10 [facility] kill Social 0-04 [place] deficit - Services 14:00: [id number] pt 00 Social financial MURIEL: Unknown 2018-10 [facility] Services resource Social 0-10 In[facility] deficit Services 15:00: [id number] 00 Social knowledge/s MURIEL: Unknown 2018-10 [facility] Services kill Social 0-10 Ingrahm deficit - Services 15:00: [id number] pt 00 Respiratory lung sounds Respirator Resolve 2018-102019-08-07 Leanna deficit y d 0-18 10:25:00 Regeczi 10:25: [id number] 00 Respiratory dyspnea Respirator Resolve 2018-102019-10-23 Mercedez present y d 10-28 10:15:00 Ingrahm 11:00: [id number] 00 Integument surgical Integument Resolve 2018-102019-09-11 Mercedez wound d 10-28 09:50:00 Ingrahm present 11:00: [id number] 00 Nutrition enteral Nutrition Resolve 2018-102019-09-11 Mercedez therapy d 10-28 09:50:00 Ingrahm 11:00: [id number] 00 Elimination urinary Eliminatio Resolve 2018-102019-09-11 Mercedez incontinenc n d 10-28 09:50:00 Ingrahm e 11:00: [id number] 00 Safety fall risk Safety Resolve 2018-102019-09-11 Mercedez factor d 10-28 09:50:00 Ingrahm present 11:00: [id number] 00 Safety risk for Safety Resolve 2018-102019-09-23 Mercedez hospitaliza d 10-28 11:10:00 Ingrahm tion 11:00: [id number] 00 Safety risk for Safety Unknown 2018-10 Mercedez hospitaliza 11-24 Ingrahm tion 15:00: [id number] 00 Cardio hypertensio Cardiovasc Active Leanna n ular 10-23 Regeczi 10:15: [id number] 00 Elimination urinary Eliminatio Resolve 2019-11-05 Lenana incontinenc n d 10-23 10:23:00 Regeczi e 10:15: [id number] 00 Elimination constipatio Eliminatio Resolve 2019-11-05 Leanna n n d 10-23 10:23:00 Regeczi 10:15: [id number] 00 Integument surgical Integument Resolve 2019-11-19 Mercedez wound d 10-28 10:50:00 Ingrahm present 10:50: [id number] 00 Nutrition enteral Nutrition Active Mercedez therapy 10-28 Ingrahm 10:50: [id number] 00 Elimination UTI within Eliminatio Resolve 2019-11-05 Mercedez past 14 n d 10-28 10:23:00 Ingrahm days 10:50: [id number] 00 Activity self-care Activity Resolve 2019-11-05 Mercedez deficit d 10-28 10:23:00 Ingrahm 10:50: [id number] 00 Safety fall risk Safety Resolve 2019-11-05 Mercedez factor d 10-28 10:23:00 Ingrahm present 10:50: [id number] 00 Safety risk for Safety Resolve 2019-11-05 Mercedez hospitaliza d 10-28 10:23:00 Ingrahm tion 10:50: [id number] 00 Allergies, Adverse Reactions, Alerts Allergy Allergy Status Severity Reaction(s) Onset Inactive Treating Comments Name Type Date Date Clinician latex Base Active Unknown [id number] amox[facility] Base Active Unknown Anaphylaxis [facility] [id number] bee venom Base Active Unknown Anaphylaxis Mercedez protein Ingredient 07-07 Ingrm (honey bee) [id number] Botox Medication Active Unknown Anaphylaxis Mercedez Name ID 07-07 [facility] [id number] contrast Unknown Active Unknown Anaphylaxis [facility] [id number] Penicillins Allergen Active Unknown Anaphylaxis [facility] Group [facility] [id number] shellfish Base Active Unknown Anaphylaxis [facility] derived [facility]redient [facility] [id number] adhesive Base Active Unknown Hives [facility] [id number] nsaids Unknown Active Unknown stomach issues [facility] [id number] oxycodone Base Active Unknown swelling Mercedez Ingredient 07-07 [facility] [id number] Betadine Medication Active Unknown Rash Mercedez Name ID 07-07 [facility] [id number] Hibiclens Medication Active Unknown Rash Mercedez Name ID 07-07 [facility] [id number] evironmenta Unknown Active Unknown hay fever, Rea l/seasonal watery eye, 07-07 Guidelli itching, [id number] sneeze, congestion povidone-io Base Active Unknown itching Rea dine Ingredient 07-07 Guidelli [id number] Iodine and Allergen Active Unknown Anaphylaxis Rea Iodide Group 07-07 Guidelli Containing [id number] Products albumin Base Active Unknown Anaphylaxis Rea colloid, Ingredient 07-07 Guidelli human [id number] fentanyl Base Active Unknown hallucinations Rea Ingredient 07-07 Guidelli [id number] Medications Ordered Filled Start Stop Current Ordering [...] MINE 50 mg MINE 50 mg 07-07 Tsahia FINCH capsule capsule e famotidine famotidine 2017- [...] 1 mg tablet 1 mg tablet 6 06- Tashia FINCH mupirocin 2 mupirocin 2 [...] Unknown Unknown tartrate 25 tartrate 25 0-03 11- Tashia FINCH mg tablet mg tablet e Spiriva Spiriva 2018-10- No Blegen Unknown Unknown Respimat Respimat 0-07 -21 Tashia FINCH 2.5 2.5 e mcg/actuati mcg/actuati [...] e nasal spray nasal spray aerosol aerosol Vital Signs Vital Name Observation Time Observation [...]
--- OUTSIDE RECORDS SUMMARY | 2019-12-19 17:47 | XMS REPORT | Continuity of Care Document ---
:1955 External Reference #:[id number] Author Name Trish Combs M.D. Address [address] [place] [address] Care Team Providers Name Role Phone Arvaind Rosas MD Care Team Information Shut Off Worker Unavailable Rock Keith MD - Cardiovascular Care Team Information Shut Off Worker [phone] Disease Javdi Romo - Gastroenterology Care Team Information Shut Off Worker Gary Frank - Cardiovascular Care Team Information Shut Off Worker [phone] Disease Problems Active Problems Provider Date Essential hypertension Trish Combs M.D. Onset: 04/10/2011 Coronary arteriosclerosis Trish Combs M.D. Onset: 04/10/2011 Carcinoma in situ of breast Trish Combs M.D. Onset: 04/10/2011 Anxiety state Trish Combs M.D. Onset: 07/09/2011 Social History Type Date Description Comments Sex Unknown Tobacco Use Start: Unknown current cigarette H/O 3 PPD smoking, quit smoker 2005 but started smoking cigarettes intermittently since then, 0-3 cigarettes per day currently. Smoking Status Reviewed: 11/23/19 current cigarette H/O 3 PPD smoking, quit smoker 2005 but started smoking cigarettes intermittently since then, 0-3 cigarettes per day currently. ETOH Use Negative For Currently consumes alcohol Recreational Drug Use Denies Drug Use Tobacco Use Start: Unknown Patient is a current 0-3 cigarettes per day smoker, smokes some days Allergies, Adverse Reactions, Alerts Active Allergies Reaction Severity Comments Date Bee Stings Anaphylaxis 02/08/2005 Nsaid Anaphylaxis To Nsaid; GI 02/08/2005 Upset With Asa PCN Anaphylaxis With -Cillins 02/08/2005 IVP Contrast Anaphylaxis 02/08/2005 Seafood Anaphylaxis 02/08/2005 Botox Contraindicated Due To 10/28/[address] Romo Betadine , hibiclens, etc-- use 04/11/2016 alcohol only Oxycontin Severe Itching, Swelling AT Eyes, 08/23/2016 Oxycodone [place] Benadryl Altered Mental Status Severe 10/30/2019 Medications Active Medications SIG Qnty Indications Ordering Date Provider Mometasone Furoate spray two sprays in 17units Trish P. each nostril every Blegen, M.D. 0 50mcg/Act Suspension day for allergic nose symptoms- Instead Of Fluticasone Azelastine HCL 2 sprays each nostril 30ml Trish P. (Nasal) once per day for Blegen, M.D. 0 137mcg/[place] allergic nose Solution Hydromorphone HCL 4 Tablets (8 MG) PO 12tabs Trish P. 2mg Q 4 Hours Today prn Blegen, M.D. 0 Tablets Pain as Directed Morphine Sulfate ER 2 PO X 1 Dose For 2tabs Trish P. Afternoon Dose Today Blegen, M.D. 0 30mg Tablets ER For Pain as Directed Spiriva Respimat 2 inhalations once 8gm Trish P. per every day for Blegen, M.D. 9 2.5mcg/Act Aerosol copd (do not use atrovent when using this) Pump Supply Kit to use with luis fernandoity 1units Trish P. tube feeds Blegen, M.D. 9 Spironolactone 1 by mouth every day 30tabs Trish P. 25mg in morning for Blegen, M.D. 9 Tablets hypertension Atrovent HFA inhale 2 puffs by 12.9units Trish P. 17mcg/Act mouth up to every 6 Blegen, M.D. 9 Aerosol hours as needed for shortness of breath/wheezing Jevity 1.5 [place]ined[place]/Fiber jevity 1.5 with fiber 90units Trish P. 2-3 cans per night Ramon Combs 9 Liquid along with 2-3 cans of jevity 1.5 for total of 5 cans per night for tube feeding- achalasia Ventolin HFA inhale two puffs by 18units Trish Leonardo mouth every 4 hours Ramon Combs 9 108(90Base) mcg/Act as needed for Aerosol wheezing- may fill with any preferred albuterol inhaler Lorazepam take 1/2 to 1 tablet 14tabs Trish Leonardo 0.5mg Tablets by mouth at night as Ramon Combs 9 needed for anxiety Mupirocin use twice per day for 22gm R21 Trish Leonardo 2% Ointment 2 weeks until wound Ramon Combs 9 healed Multiple Vitamin 1 by mouth every day Trish Leonardo Ramon Combs 9 Tablets Thiamine HCL 1 PO Qday For Trish Leonardo 100mg Nutrition Supplement Ramon Combs 9 Tablets Personal Emergency uad 1units Destiny Device DAYNE [place] 9 Amlodipine Besylate take one tablet by 30tabs Trish Leonardo mouth every day for Ramon Combs 9 10mg Tablets high blood pressure Palliative Care palliative services Trish Leonardo Ramon Combs 8 Famotidine take 1 tablet 30tabs Trish Leonardo 20mg Tablets dissolved or Ramon Combs 8 suspension- J tube every day for gerd- as needed Saline 1 liter normal saline 1000units Trish Leonardo 0.9% Solution with potassium 20 meq Ramon Combs 8 per liter, once weekly, infuse over 4 hours 250ml/1hr via port Saline Flush prefilled - use as 30ml Trish Leonardo 0.9% directed Ramon Combs 8 Solution Heparin Lock Flush use as directed QS Trish Leonardo Ramon Combs 8 100Unit/ML Solution Nicotrol inhale as directed 168units Z71.6 Trish Leonardo 10mg Inhaler when quit smoking- no Ramon Combs 8 more than 5 per day Levocetirizine take 1 tablet by 30tabs J30.9 Trish Leonardo Dihydrochloride mouth at bedtime for Garret MEusebioDEusebio 8 5mg allergies Tablets Fluticasone nasal spray- 2 sprays 16gm J30.9 Trish PEusebio Propionate each nostril every Blegen M.D. 8 50mcg/Act day as directed for Suspension allergic nose symptoms Ketotifen Fumarate 1 drop each eye twice 5ml Trish PEusebio per day for allergic Blegen M.DEusebio 7 0.025% Solution conjunctivitis Jevity 1.5 Pineda 5 cans via j tube as 150units Trish PEusebio Liquid directed per day Dylan CombsDEusebio 7 Split Gauze Pads For use as directed bid 1monthsup Trish Leonardo J Tube Use to qid around j tube león oCmbs M.D. 7 site Tube Feeding as directed for j 1MonthSup Trish Leonardo Supplies/ Bags tube feeds- 5 cans ply Ramon Combs 7 jevity per night Losartan Potassium 1 PO Qday For Blood 30tabs I10 Trish Leonardo Pressure Blegen MEusebioDEusebio 7 100mg Tablets Epipen 2-Godwin use as directed for 2units Trish Leonardo bee sting allergy and Blegen M.DEusebio 7 0.3mg/0.3ML Solution call 911 Auto-Inject Pump Feeding Supply use as directed. low 1units Trish Leonardo Kit profile button, 24 Garret MEusebioD. 6 fr, 2.0cm Ondansetron 1 by mouth every 8 30tabs R11.0 Trish Leonardo 4mg Tablets hours as needed Dylan CombsDEusebio 6 Dispers nausea/ vomiting Clopidogrel Bisulfate take one tablet by 90tabs Trish Leonardo mouth once daily Blegen M.D. 5 75mg Tablets instead of aspirin Syringe/3ML/25G X use as directed to 3undamon Leonardo 02/25" give vitamin b12 1 Ramon Combs 5 25G X 02/25" 3 ML milliliters injection Misc every month Cyanocobalamin inject 1ml once 3units Trish Leonardo monthly as directed Ramon Combs 5 1000mcg/ML Solution for vitamin b12 deficiency, malabsorption Metoprolol Tartrate 1 po bid for heart/ 60tabs Trish Leonardo blood pressure Ramon Combs 0 25mg Tablets Folic Acid 1 by mouth everyday 30tabs Trish Leonardo 1mg Tablets as directed Ramon Combs 0 Narcan use as directed for Unknown 4mg/0.1ML Liquid opioid overdose 0 Isosorbide 1 po qday for angina/ 90tabs Trish Leonardo Mononitrate ER heart Ramon Combs 0 30mg Tablets ER 24HR Hydromorphone HCL Take Two Tablets By Unknown 4mg Mouth Every 4 Hours 0 Tablets as Needed For Pain Maximum Daily Dose 12 Morphine Sulfate ER 1 PO Q 8 Hours For Unknown Pain 0 60mg Tablets ER Atorvastatin Calcium Take One Tablet By Unknown Mouth AT Bedtime 0 40mg Tablets Pantoprazole Sodium take 1 tablet by 90tabs Trish Leonardo mouth daily on an Ramon Combs [address] empty stomach for gastroesophageal reflux disease Carisoprodol take one tablet by Unknown 350mg mouth Qid as directed 0 Tablets for muscle spasm/ achalasia Nitrostat one tab dissolve 25tabs Trish Leonardo 0.4mg Tablets under tongue prn Ramon Combs 0 Sub chest pain as directed, sit or lie down when you take it and call 911 if chest pain lasts History Medications Spiriva Respimat 2 inhalations once 4gm Trish Leonardo 07/27/2019 - per every day for Ramon Combs 08/10/2019 2.5mcg/Act Aerosol copd Medications Administered in Office Medication SIG Qnty Indications Ordering Provider Date Vitamin B-12 Injection-To Trish Combs M.D. 11/23/2019 1000mcg Injection Vitamin B-12 Injection-To Trish Combs M.D. 09/24/2019 1000mcg Injection Vitamin B-12 Injection-To Trish Combs M.D. 07/27/2019 1000mcg Injection Vitamin B-12 Injection-To Trish Combs M.D. 06/18/2019 1000mcg Injection Vitamin B-12 Injection-To Trish Combs M.D. 05/25/2019 1000mcg Injection Vitamin B-12 Injection-To Trish Combs M.D. 03/26/2019 1000mcg Injection Vitamin B-12 Injection-To Trish Combs M.D. 03/10/2019 1000mcg Injection Vitamin B-12 Injection-To Trish Combs M.D. 12/22/2018 1000mcg Injection Vitamin B-12 Injection-To Trish Combs M.D. 11/24/2018 1000mcg Injection Vitamin B-12 Injection-To Trish Combs M.D. 10/09/2018 1000mcg Injection Vitamin B-12 Injection-To Trish Combs M.D. 08/07/2018 1000mcg Injection Vitamin B-12 Injection-To Trish Combs M.D. 07/17/2018 1000mcg Injection Vitamin B-12 Injection-To Trish Combs M.D. 08/21/2017 1000mcg Injection Vitamin B-12 Injection-To Trish Combs M.D. 07/31/2017 1000mcg Injection Vitamin B-12 Injection-To Trish Combs M.D. 07/04/2017 1000mcg Injection Vitamin B-12 Injection-To Trish Combs M.D. 04/25/2017 1000mcg Injection Vitamin B-12 Injection-To Trish Combs M.D. 03/07/2017 1000mcg Injection Vitamin B-12 Injection-To Trish Combs M.D. 02/13/2017 1000mcg Injection Vitamin B-12 Injection-To Trish Combs M.D. 01/10/2017 1000mcg Injection Vitamin B-12 Injection-To Trish Combs M.D. 11/15/2016 1000mcg Injection Vitamin B-12 Injection-To Trish Combs M.D. 10/08/2016 1000mcg Injection Vitamin B-12 Injection-To Trish Combs M.D. 08/01/2016 1000mcg Injection Vitamin B-12 Injection-To Trish Combs M.D. 07/04/2016 1000mcg Injection Vitamin B-12 Injection-To Trish Combs M.D. 02/20/2016 1000mcg Injection Vitamin B-12 Injection-To Trish Combs M.D. 12/27/2015 1000mcg Injection Vitamin B-12 Injection-To Trish Combs M.D. 09/05/2015 1000mcg Injection Vitamin B-12 Injection-To Trish Combs M.D. 03/08/2015 1000mcg Injection Vitamin B-12 Injection-To Trish Combs M.D. 01/31/2015 1000mcg Injection Vitamin B-12 Injection-To Trish Combs M.D. 08/25/2014 1000mcg Injection Vitamin B-12 Injection-To Trish Combs M.D. 07/28/2014 1000mcg Injection Vitamin B-12 Injection-To Trish Combs M.D. 04/30/2013 1000mcg Injection Immunizations CPT Code Status Date Vaccine Lot # [id number] Given 07/27/2019 Influenza Virus Vaccine, Quadrivalent, 3 Yr > [id number] Quad, Preserv Free 94352 Given 07/03/2018 Influenza Virus Vaccine, Quadrivalent, 3 Yr > Quad, Preserv Free 87884 Given 07/04/2017 Influenza Virus Vaccine, Quadrivalent, 3 Yr > [id number] Quad, Preserv Free 41663 Given 08/23/2016 Prevnar-13 Pneumococcal Conjugate Vaccine [id number] 40090 Given 07/04/2016 Influenza Virus Vaccine, Quadrivalent, 3 Yr > [id number] Quad, Preserv Free 18689 Given 09/05/2015 Influenza Virus Vaccine, Quadrivalent, 3 Yr > [id number] Quad, Preserv Free 60520 Given 07/28/2014 Influenza Virus Vaccine, Quadrivalent, 3 Yr > [id number] Quad, Preserv Free 12213 Given 06/30/2013 Influenza Vaccine-Preservative Free 3 Yrs And [id number] Above 41844 Given 08/14/2012 Pneumovax 23 (PPSV23) 65+ years or high risk 2 to [id number] 64 year old 54227 Given 08/14/2012 Influenza Vaccine-Preservative Free 3 Yrs And [id number] Above 23690 Given 07/09/2011 Influenza Vaccine-Preservative Free 3 Yrs And [id number] Above 30157 Given 03/04/2011 DT (Adult) 92863 Given 07/04/2010 Influenza Vaccine-Preservative Free 3 Yrs And [id number] Above 91370 Given 08/20/2006 Influenza Virus Vaccine, 3 Yrs And Above 13823 06486 Given 09/01/2005 Pneumovax 23 (PPSV23) 65+ years or high risk 2 to 64 year old 74233 Given 09/01/2005 Influenza Virus Vaccine, 3 Yrs And Above Vital Signs Date Vital Result Comment 11/23/2019 12:29pm BP Systolic 148 mmHg BP Diastolic 80 mmHg Heart Rate 72 /min Body Temperature 97.5 F Respiratory Rate 16 /min O2 % BldC Oximetry 98 % 10/30/2019 9:46am Weight 104.12 lb Weight 47.231 kg BP Systolic 188 mmHg BP Diastolic 104 mmHg Heart Rate 60 /min Body Temperature 97.5 F Respiratory Rate 16 /min O2 % BldC Oximetry 96 % Results Test Acquired Facility Test Result H/L Range Note Date Urine Culture And 10/25/2019 [facility] Urine Culture SEE RESULT 1 Sensitivities [phone] BELOW Urine Drug SCR ED 10/25/2019 [facility] Urine None None & [facility] [phone] Amphetamine Detected Detect Screen Urine Barbiturates Screen None Detected None Detect Urine Benzodiazepine Screen None Detected None Detect Urine Cannabinoids Screen None Detected None Detect Urine Cocaine Screen None Detected None Detect Urine Opiates Screen Presumptive Posi <SEE NOTE> Abnormal None Detect 2 Urine Phencyclidine Screen None Detected None Detect 3 Venous Blood 10/25/2019 [facility] Venous Blood 7.42 Normal 7.32-7.43 Gas [phone] pH Venous Pco2 35 mmHg Low 41-51 Venous Po2 < 38.0 mmHg Normal 35-45 Venous O2 Saturation 63.3 % Low 70-80 Venous Blood Base Excess -1.3 mmol/L Low 0.0-4.0 4 Venous Bicarbonate Hco3 22.9 mmol/L Low 24-28 Laboratory test 10/25/2019 [facility] Troponin-I 0.01 <0.03 5 finding [phone] (TnI) ng/mL CBC Auto Diff 10/25/2019 [facility] White Blood 12.9 High 3.5-10.8 [phone] Count 10^3/uL Red Blood Count 4.27 10^6/uL Normal 3.70-4.87 Hemoglobin 11.7 g/dL Low 12.0-16.0 Hematocrit 35 % Normal 35-47 Mean Corpuscular Volume 82 fL Normal 80-97 Mean Corpuscular Hemoglobin 27 pg Normal 27-31 Mean Corpuscular HGB Conc 33 g/dL Normal 31-36 Red Cell Distribution Width 16 % High 10-15 Platelet Count 321 10^3/uL Normal 150-450 Mean Platelet Volume 7.3 fL Low 7.4-10.4 Abs Neutrophils 10.5 10^3/uL High 1.5-7.7 Abs Lymphocytes 1.2 10^3/uL Normal 1.0-4.8 Abs Monocytes 1.0 10^3/uL High 0-0.8 Abs Eosinophils 0.1 10^3/uL Normal 0-0.6 Abs Basophils 0.1 10^3/uL Normal 0-0.2 Abs Nucleated RBC 0.0 10^3/uL Granulocyte % 81.5 % Lymphocyte % 9.1 % Monocyte % 8.0 % Eosinophil % 0.7 % Basophil % 0.7 % Nucleated Red Blood Cells % 0.0 Comp Metabolic 10/25/2019 [facility] Sodium 134 mmol/ L Low 135-145 Panel [phone] Potassium 3.9 mmol/L Normal 3.5-5.0 Chloride 99 mmol/L Low 101-111 Co2 Carbon Dioxide 23 mmol/L Normal 22-32 Anion Gap 12 mmol/L High 2-11 Glucose 95 mg/dL Normal 70-100 Blood Urea Nitrogen 22 mg/dL Normal 6-24 Creatinine 0.99 mg/dL High 0.51-0.95 BUN/Creatinine Ratio 22.2 High 8-20 Calcium 9.3 mg/dL Normal 8.6-10.3 Total Protein 7.1 g/dL Normal 6.4-8.9 Albumin 4.0 g/dL Normal 3.2-5.2 Globulin 3.1 g/dL Normal 2-4 Albumin/Globulin Ratio 1.3 Normal 1-3 Total Bilirubin 0.80 mg/dL Normal 0.2-1.0 Alkaline Phosphatase 67 U/L Normal 34-104 Alt 10 U/L Normal 7-52 Ast 17 U/L Normal 13-39 Egfr Non- 56.5 >60 Egfr 68.3 >60 6 Laboratory test 10/25/2019 [facility] Acetaminophen < 15 g/mL 7 finding [phone] Alcohol < 10 mg/dL Normal <10 Salicylate < 2.50 mg/dL <30 TSH (Thyroid Stimulating Horm) 1.37 mcIU/mL Normal 0.34-5.60 Urinalysis Profile 10/25/2019 [facility] Urine Color Yellow [phone] Urine Appearance Cloudy Urine Specific [place] 1.005 Low 1.010-1.030 Urine pH 6.0 Normal 5-9 Urine Urobilinogen Negative Negative Urine Ketones Trace Abnormal Negative Urine Protein Negative Negative Urine Leukocytes 1+ Abnormal Negative Urine Blood 1+ Abnormal Negative Urine Nitrite Negative Negative Urine Bilirubin Negative Negative Urine Glucose Negative Negative Urine White Blood Cell 1+(6-10/hpf) Abnormal Absent Urine Red Blood Cell 1+(3-5/hpf) Abnormal Absent Urine Bacteria 1+ Abnormal Absent Urine Squamous Epithelial Cell Present Abnormal Absent Laboratory test 09/18/2019 [facility] Lipase 10 U/L Low 11.0-82.0 finding [phone] CBC Auto Diff 09/18/2019 [facility] White Blood 7.1 Normal 3.5-10.8 [phone] Count 10^3/uL Red Blood Count 4.42 10^6/uL Normal 3.70-4.87 Hemoglobin 12.3 g/dL Normal 12.0-16.0 Hematocrit 37 % Normal 35-47 Mean Corpuscular Volume 83 fL Normal 80-97 Mean Corpuscular Hemoglobin 28 pg Normal 27-31 Mean Corpuscular HGB Conc 34 g/dL Normal 31-36 Red Cell Distribution Width 15 % Normal 10-15 Platelet Count 315 10^3/uL Normal 150-450 Mean Platelet Volume 7.4 fL Normal 7.4-10.4 Abs Neutrophils 5.1 10^3/uL Normal 1.5-7.7 Abs Lymphocytes 1.4 10^3/uL Normal 1.0-4.8 Abs Monocytes 0.4 10^3/uL Normal 0-0.8 Abs Eosinophils 0.0 10^3/uL Normal 0-0.6 Abs Basophils 0.1 10^3/uL Normal 0-0.2 Abs Nucleated RBC 0.0 10^3/uL Granulocyte % 72.7 % Lymphocyte % 19.8 % Monocyte % 6.0 % Eosinophil % 0.5 % Basophil % 1.0 % Nucleated Red Blood Cells % 0.0 Comp Metabolic 09/18/2019 [facility] Sodium 137 mmol/ L Normal 135-145 Panel [phone] Potassium 3.1 mmol/L Low 3.5-5.0 Chloride 108 mmol/L Normal 101-111 Co2 Carbon Dioxide 22 mmol/L Normal 22-32 Anion Gap 7 mmol/L Normal 2-11 Glucose 89 mg/dL Normal 70-100 Blood Urea Nitrogen 16 mg/dL Normal 6-24 Creatinine 0.61 mg/dL Normal 0.51-0.95 BUN/Creatinine Ratio 26.2 High 8-20 Calcium 8.6 mg/dL Normal 8.6-10.3 Total Protein 6.6 g/dL Normal 6.4-8.9 Albumin 3.5 g/dL Normal 3.2-5.2 Globulin 3.1 g/dL Normal 2-4 Albumin/Globulin Ratio 1.1 Normal 1-3 Total Bilirubin 0.30 mg/dL Normal 0.2-1.0 Alkaline Phosphatase 60 U/L Normal 34-104 Alt 7 U/L Normal 7-52 Ast 12 U/L Low 13-39 Egfr Non- 98.7 >60 Egfr 119.5 >60 8 Laboratory test 09/18/2019 [facility] Troponin-I 0.01 ng/mL <0.03 9 finding [phone] (TnI) Laboratory test 09/08/2019 [facility] Potassium 3.2 mmol/L Low 3.5-5.0 finding [phone] Redraw Ast Redraw 18 U/L Normal 13-39 Magnesium 1.6 mg/dL Low 1.9-2.7 C Reactive Protein 3.34 mg/L Normal <8.01 CBC Auto 09/08/2019 [facility] White Blood 8.9 10^3/ uL Normal 3.5-10.8 Diff [phone] Count Red Blood Count 5.16 10^6/uL High 3.70-4.87 Hemoglobin 14.6 g/dL Normal 12.0-16.0 Hematocrit 42 % Normal 35-47 Mean Corpuscular Volume 82 fL Normal 80-97 Mean Corpuscular Hemoglobin 28 pg Normal 27-31 Mean Corpuscular HGB Conc 35 g/dL Normal 31-36 Red Cell Distribution Width 15 % Normal 10-15 Platelet Count 313 10^3/uL Normal 150-450 Mean Platelet Volume 7.4 fL Normal 7.4-10.4 Abs Neutrophils 7.9 10^3/uL High 1.5-7.7 Abs Lymphocytes 0.6 10^3/uL Low 1.0-4.8 Abs Monocytes 0.3 10^3/uL Normal 0-0.8 Abs Eosinophils 0.0 10^3/uL Normal 0-0.6 Abs Basophils 0.0 10^3/uL Normal 0-0.2 Abs Nucleated RBC 0.0 10^3/uL Granulocyte % 89.3 % Lymphocyte % 6.6 % Monocyte % 3.7 % Eosinophil % 0.0 % Basophil % 0.4 % Nucleated Red Blood Cells % 0.1 Laboratory test 09/08/2019 [facility] Lactic Acid 1.6 mmol/L Normal 0.5-2.0 10 finding [phone] Comp Metabolic 09/08/2019 [facility] Sodium 127 mmol/ L Low 135-145 Panel [phone] Chloride 98 mmol/L Low 101-111 Co2 Carbon Dioxide 18 mmol/L Low 22-32 Glucose 164 mg/dL High 70-100 Blood Urea Nitrogen 19 mg/dL Normal 6-24 Creatinine 0.72 mg/dL Normal 0.51-0.95 BUN/Creatinine Ratio 26.4 High 8-20 Calcium 8.6 mg/dL Normal 8.6-10.3 Total Protein 7.5 g/dL Normal 6.4-8.9 Albumin 4.1 g/dL Normal 3.2-5.2 Globulin 3.4 g/dL Normal 2-4 Albumin/Globulin Ratio 1.2 Normal 1-3 Total Bilirubin 0.60 mg/dL Normal 0.2-1.0 Alkaline Phosphatase 63 U/L Normal 34-104 Alt 10 U/L Normal 7-52 Egfr Non- 81.6 >60 Egfr 98.7 >60 11 Potassium TNP mmol/L 3.5-5.0 12 Anion Gap 11 mmol/L Normal 2-11 Ast TNP U/L 13-39 13 Laboratory test 09/08/2019 [facility] Troponin-I (TnI ) 0.01 ng/mL <0.03 14 finding [phone] B-Type Natriuretic Peptide BNP 165 pg/mL High <=100 Urinalysis Profile 09/08/2019 [facility] Urine Color Yellow [phone] Urine Appearance Clear Urine Specific [place] 1.016 Normal 1.010-1.030 Urine pH 5.0 Normal 5-9 Urine Urobilinogen Negative Negative Urine Ketones Negative Negative Urine Protein Negative Negative Urine Leukocytes Negative Negative Urine Blood Negative Negative Urine Nitrite Negative Negative Urine Bilirubin Negative Negative Urine Glucose Negative Negative Laboratory 07/16/2019 [facility] Troponin-I 0.01 < 0.04 15 test finding [phone] (TnI) ng/mL CBC Auto Diff 07/16/2019 [facility] White Blood 6.1 Normal 3.5-10.8 [phone] Count 10^3/uL Red Blood Count 4.82 10^6/uL Normal 3.70-4.87 Hemoglobin 13.5 g/dL Normal 12.0-16.0 Hematocrit 40 % Normal 35-47 Mean Corpuscular Volume 82 fL Normal 80-97 Mean Corpuscular Hemoglobin 28 pg Normal 27-31 Mean Corpuscular HGB Conc 34 g/dL Normal 31-36 Red Cell Distribution Width 18 % High 10-15 Platelet Count 335 10^3/uL Normal 150-450 Mean Platelet Volume 7.6 fL Normal 7.4-10.4 Abs Neutrophils 4.7 10^3/uL Normal 1.5-7.7 Abs Lymphocytes 1.1 10^3/uL Normal 1.0-4.8 Abs Monocytes 0.3 10^3/uL Normal 0-0.8 Abs Eosinophils 0.0 10^3/uL Normal 0-0.6 Abs Basophils 0.0 10^3/uL Normal 0-0.2 Abs Nucleated RBC 0.0 10^3/uL Granulocyte % 76.6 % Lymphocyte % 17.4 % Monocyte % 5.4 % Eosinophil % 0.1 % Basophil % 0.5 % Nucleated Red Blood Cells % 0.1 Laboratory test 07/16/2019 [facility] Lactic Acid 1.3 mmol/L Normal 0.5-2.0 16 finding [phone] Comp Metabolic 07/16/2019 [facility] Sodium 130 mmol/ L Low 135-145 Panel [phone] Potassium 4.2 mmol/L Normal 3.5-5.0 Chloride 99 mmol/L Low 101-111 Co2 Carbon Dioxide 21 mmol/L Low 22-32 Anion Gap 10 mmol/L Normal 2-11 Glucose 93 mg/dL Normal 70-100 Blood Urea Nitrogen 25 mg/dL High 6-24 Creatinine 0.81 mg/dL Normal 0.51-0.95 BUN/Creatinine Ratio 30.9 High 8-20 Calcium 8.7 mg/dL Normal 8.6-10.3 Total Protein 6.7 g/dL Normal 6.4-8.9 Albumin 3.9 g/dL Normal 3.2-5.2 Globulin 2.8 g/dL Normal 2-4 Albumin/Globulin Ratio 1.4 Normal 1-3 Total Bilirubin 0.50 mg/dL Normal 0.2-1.0 Alkaline Phosphatase 61 U/L Normal 34-104 Alt 7 U/L Normal 7-52 Ast 13 U/L Normal 13-39 Egfr Non- 71.2 >60 Egfr 86.1 >60 17 Laboratory test 07/16/2019 [facility] Magnesium 1.8 mg/dL Low 1.9-2.7 finding [phone] Creatine Kinase 21 U/L Normal 10-223 Troponin-I (TnI) 0.01 ng/mL <0.04 18 CKMB 07/16/2019 [facility] CKMB ng/mL 0.8 ng/mL Normal 0.6-6.3 [phone] Laboratory test 07/16/2019 [facility] B-Type 55 pg/ mL <=100 finding [phone] Natriuretic Peptide BNP Urine Culture 06/12/2019 [facility] Urine Culture SEE 19 And [phone] RESULT Sensitivities BELOW Urinalysis 06/12/2019 [facility] Urine Color Yellow Profile [phone] Urine Appearance Cloudy Urine Specific [place] 1.018 Normal 1.010-1.030 Urine pH 5.0 Normal 5-9 Urine Urobilinogen Negative Negative Urine Ketones Negative Negative Urine Protein Negative Negative Urine Leukocytes 2+ Abnormal Negative Urine Blood Negative Negative Urine Nitrite Negative Negative Urine Bilirubin Negative Negative Urine Glucose Negative Negative Urine White Blood Cell Trace(0-5/hpf) Absent Urine Red Blood Cell 2+(6-10/hpf) Abnormal Absent Urine Bacteria Absent Absent Urine Squamous Epithelial Cell Present Abnormal Absent Urine Drug 06/12/2019 [facility] Urine None Detected None Detect SCR ED & [phone] Amphetamine Pain Clinic Screen Urine Barbiturates Screen None Detected None Detect Urine Benzodiazepine Screen None Detected None Detect Urine Cannabinoids Screen None Detected None Detect Urine Cocaine Screen None Detected None Detect Urine Opiates Screen Presumptive Posi <SEE NOTE> Abnormal None Detect 20 Urine Phencyclidine Screen None Detected None Detect 21 Laboratory test 06/12/2019 [facility] Creatine 33 U/ L Normal 10-223 finding [phone] Kinase Troponin-I (TnI) 0.00 ng/mL <0.04 22 Comp Metabolic 06/12/2019 [facility] Sodium 136 mmol/ L Normal 135-145 Panel [phone] Potassium 3.8 mmol/L Normal 3.5-5.0 Chloride 107 mmol/L Normal 101-111 Co2 Carbon Dioxide 25 mmol/L Normal 22-32 Anion Gap 4 mmol/L Normal 2-11 Glucose 80 mg/dL Normal 70-100 Blood Urea Nitrogen 27 mg/dL High 6-24 Creatinine 0.91 mg/dL Normal 0.51-0.95 BUN/Creatinine Ratio 29.7 High 8-20 Calcium 8.4 mg/dL Low 8.6-10.3 Total Protein 6.4 g/dL Normal 6.4-8.9 Albumin 3.8 g/dL Normal 3.2-5.2 Globulin 2.6 g/dL Normal 2-4 Albumin/Globulin Ratio 1.5 Normal 1-3 Total Bilirubin 0.50 mg/dL Normal 0.2-1.0 Alkaline Phosphatase 52 U/L Normal 34-104 Alt 7 U/L Normal 7-52 Ast 12 U/L Low 13-39 Egfr Non- 62.2 >60 Egfr 75.3 >60 23 Laboratory test 06/12/2019 [facility] Carbon 6.6 % High <4.0 finding [phone] Monoxide Venous Blood Gas 06/12/2019 [facility] Venous Blood 7.32 Normal 7.32-7.43 [phone] pH Venous Pco2 46 mmHg Normal 41-51 Venous Po2 13.0 mmHg Low 35-45 Venous O2 Saturation < 38 % Low 70-80 Venous Blood Base Excess -2.6 mmol/L Low 0.0-4.0 24 Venous Bicarbonate Hco3 20.8 mmol/L Low 24-28 CBC Auto 06/12/2019 [facility] White Blood 7.3 10^3/ uL Normal 3.5-10.8 Diff [phone] Count Red Blood Count 4.34 10^6/uL Normal 3.70-4.87 Hemoglobin 11.5 g/dL Low 12.0-16.0 Hematocrit 35 % Normal 35-47 Mean Corpuscular Volume 81 fL Normal 80-97 Mean Corpuscular Hemoglobin 27 pg Normal 27-31 Mean Corpuscular HGB Conc 33 g/dL Normal 31-36 Red Cell Distribution Width 18 % High 10-15 Platelet Count 285 10^3/uL Normal 150-450 Mean Platelet Volume 7.4 fL Normal 7.4-10.4 Abs Neutrophils 4.5 10^3/uL Normal 1.5-7.7 Abs Lymphocytes 1.9 10^3/uL Normal 1.0-4.8 Abs Monocytes 0.7 10^3/uL Normal 0-0.8 Abs Eosinophils 0.1 10^3/uL Normal 0-0.6 Abs Basophils 0.1 10^3/uL Normal 0-0.2 Abs Nucleated RBC 0.0 10^3/uL Granulocyte % 61.4 % Lymphocyte % 25.6 % Monocyte % 10.2 % Eosinophil % 1.9 % Basophil % 0.9 % Nucleated Red Blood Cells % 0.0 Varicella Zoster 05/25/2019 [facility] Varicella Zoster RT THIGH Culture [phone] Source Varicella Zoster Result Negative Negative 25 Herpes Simplex PCR 05/25/2019 [facility] Herpes Source RT THIGH [phone] HSV 1 PCR Negative Negative HSV 2 PCR Positive Abnormal Negative 26 1 SEE RESULT BELOW Name: ISABEL PRASAD : [address]: Tunde Burt MD Acct: [id number] Unit: [id number] AGE: 64 Location: [place] [address] Re10/25/19 Dis: 10/27/19 SEX: F Status: DIS IN SPEC: [id number] ALLIE: 10/25/19-[address] [facility] DR: Joaquin Gilmore MD REQ: [id number] RECD: 10/25/19 STATUS: COMP [facility] DR: Trish Combs MD _ SOURCE: URINE SPDESC: ORDERED: Urine Culture Procedure Result Reported Site Urine Culture Final 10/29/19- 1334 ML No growth of clinically significant organisms * ML - Main Lab . END OF REPORT DEPARTMENT OF PATHOLOGY, [address] [place] [address] Toan Guillaume M.D. Director [facility] # [id number] 2 Presumptive Positive Presumptive positive results are unconfirmed. 3 The urine specimen was tested at the listed cutoffs: Drug class test level (ng/mL) Amphetamines 500 Barbiturates 200 Benzodiazepine metabolites 200 Cocaine metabolites 150 Cannabinoids 50 Opiates 300 Pcp 25 Specimen was received without chain of custody. Results should be used for medical purposes only. 4 Reference ranges based on room air. 5 Troponin-I testing on Plasma Separator Tubes (PST) has a known false positive rate of 0.20-0.40%. All positive troponins reflex immediately to secondary confirmatory testing. Using the BoostUp DxI 800 Access Immunoassay systems, the 99th percentile upper reference limit was demonstrated to be < 0.03 ng/mL. 6 Because ethnic data is not always readily [...] 15-29 5 Kidney failure <15 (or dialysis) 7 Therapeutic concentration: <50 ug/mL Toxic concentration: >120 ug/mL 8 Because ethnic data is not always readily [...] 15-29 5 Kidney failure <15 (or dialysis) 9 Troponin-I testing on Plasma Separator Tubes (PST) has a known false positive rate of 0.20-0.40%. All positive troponins reflex immediately to secondary confirmatory testing. Using the BoostUp DxI 800 Access Immunoassay systems, the 99th percentile upper reference limit was demonstrated to be < 0.03 ng/mL. 10 [facility] Severe Sepsis and Septic Shock Management Bundle Measure requires all lactic acids initially measuring >2.0 mmol/L be repeated. 11 Because ethnic data is not always readily [...] 15-29 5 Kidney failure <15 (or dialysis) 12 Specimen Hemolyzed. Result may not be valid. Unable to report test result due to hemolysis. 13 Unable to report test result due to hemolysis. 14 Troponin-I testing on Plasma Separator Tubes (PST) has a known false positive rate of 0.20-0.40%. All positive troponins reflex immediately to secondary confirmatory testing. Using the UnicTempoIQ DxI 800 Access Immunoassay systems, the 99th percentile upper reference limit was demonstrated to be < 0.03 ng/mL. 15 Troponin-I testing on Plasma Separator Tubes (PST) has a known false positive rate of 0.20-0.40%. All positive troponins reflex immediately to secondary confirmatory testing. Using the Un[employer]el DxI 800 Access Immunoassay systems, the 99th percentile upper reference limit was demonstrated to be < 0.03 ng/mL. 16 [facility] Severe Sepsis and Septic Shock Management Bundle Measure requires all lactic acids initially measuring >2.0 mmol/L be repeated. 17 Because ethnic data is not always readily [...] 15-29 5 Kidney failure <15 (or dialysis) 18 Troponin-I testing on Plasma Separator Tubes (PST) has a known false positive rate of 0.20-0.40%. All positive troponins reflex immediately to secondary confirmatory testing. Using the Boost[employer] DxI 800 Access Immunoassay systems, the 99th percentile upper reference limit was demonstrated to be < 0.03 ng/mL. 19 SEE RESULT BELOW Name: ISABEL PRASAD : [address]: Sanjay Castro MD Acct: [id number] Unit: [id number] AGE: 64 Location: ED Re06/12/19 SEX: F Status: DEP ER SPEC: [id number] ALLIE: 06/12/[address]: Sanjay Castro MD REQ: [id number] RECD: 06/12/19 STATUS: COMP [facility] DR: Trish Combs MD _ SOURCE: URINE SPDESC: ORDERED: Urine Culture Procedure Result Reported Site Urine Culture Final 06/13/19- 1200 ML No growth of clinically significant organisms * ML - Main Lab . END OF REPORT DEPARTMENT OF PATHOLOGY, [address] [place] [address] Toan Guillaume M.D. Director [facility] # [id number] 20 Presumptive Positive Presumptive positive results are unconfirmed. 21 The urine specimen was tested at the listed cutoffs: Drug class test level (ng/mL) Amphetamines 500 Barbiturates 200 Benzodiazepine metabolites 200 Cocaine metabolites 150 Cannabinoids 50 Opiates 300 Pcp 25 Specimen was received without chain of custody. Results should be used for medical purposes only. 22 Troponin-I testing on Plasma Separator Tubes (PST) has a known false positive rate of 0.20-0.40%. All positive troponins reflex immediately to secondary confirmatory testing. Using the BoostUp DxI 800 Access Immunoassay systems, the 99th percentile upper reference limit was demonstrated to be < 0.03 ng/mL. 23 Because ethnic data is not always readily [...] 15-29 5 Kidney failure <15 (or dialysis) 24 Reference ranges based on room air. 25 ADDITIONAL INFORMATION This test was developed and its performance characteristics determined by [facility] in a manner consistent with CLIA requirements. This test has not been cleared or approved by the U.S. Food and Drug Administration. Test Performed by: [facility] [address] [place] [address] 26 ADDITIONAL INFORMATION This test has been modified from the nursing aide's instructions. Its performance characteristics were determined by [facility] in a manner consistent with CLIA requirements. This test has not been cleared or approved by the U.S. Food and Drug Administration. Test Performed by: [facility] [address] [place] [address] Procedures Date Code Description Status 09/24/2019 38392 Therapeutic,Prophylactic,Or Diagnostic Inj,SC/Im Completed Specify Drug 07/27/2019 76898 Therapeutic,Prophylactic,Or Diagnostic Inj,SC/Im Completed Specify Drug 06/18/2019 48392 Therapeutic,Prophylactic,Or Diagnostic Inj,SC/Im Completed Specify Drug 05/25/2019 39501 Therapeutic,Prophylactic,Or Diagnostic Inj,SC/Im Completed Specify Drug 06/21/2016 [id number] Colonoscopy Completed Medical Devices Description No Information Available Encounters Type Date Location Provider Dx Diagnosis Office Visit 10/30/2019 Main Office Trish Combs, I10 Essential ( primary) 10:00a M.D. hypertension R07.89 Other chest pain N39.0 Urinary tract infection, site not specified E53.8 Deficiency of other specified B group vitamins R41.0 Disorientation, unspecified R09.81 Nasal congestion K31.84 Gastroparesis Office Visit 09/24/2019 1:45p Main Office Trish Leonardo I10 Essential ( primary) Blegen, M.D. hypertension R07.89 Other chest pain E86.0 Dehydration E53.8 Deficiency of other specified B group vitamins R06.00 Dyspnea, unspecified Office Visit 07/27/2019 1:00p [facility] Trish Leonardo R07.89 Other chest Blegen, M.D. pain E86.0 Dehydration I10 Essential (primary) hypertension E53.8 Deficiency of other specified B group vitamins R06.00 Dyspnea, unspecified G47.00 Insomnia, unspecified Z23 Encounter for immunization Office Visit 06/18/2019 12:15p Main Office Trish Cobms R07.89 Other chest pain M.D. E86.0 Dehydration I10 Essential (primary) hypertension E53.8 Deficiency of other specified B group vitamins R25.1 Tremor, unspecified Office Visit 05/25/2019 1:00p [facility] Trish Leonardo R07.89 Other chest Garret, MEusebioDEusebio pain E86.0 Dehydration I10 Essential (primary) hypertension E53.8 Deficiency of other specified B group vitamins G47.00 Insomnia, unspecified R21 Rash and other nonspecific skin eruption Assessments Date Code Description Provider 11/23/2019 I10 Essential (primary) hypertension Trish Combs M.D. 11/23/2019 E53.8 Deficiency of other specified B group Trish Combs M.D. vitamins 11/23/2019 R07.89 Other chest pain Trish Combs M.D. 11/23/2019 R09.81 Nasal congestion Trish Combs M.D. 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 specified sites 10/30/2019 I10 Essential (primary) hypertension Trish Combs M.D. 10/30/2019 R07.89 Other chest pain Trish Combs M.D. 10/30/2019 N39.0 Urinary tract infection, site not Trish Combs M.D. specified 10/30/2019 E53.8 Deficiency of other specified B group Trish Combs M.D. vitamins 10/30/2019 R41.0 Disorientation, unspecified Trish oCmbs M.D. 10/30/2019 R09.81 Nasal congestion Trish Combs M.D. 10/30/2019 K31.84 Gastroparesis Trish Combs M.D. 09/24/2019 I10 Essential (primary) hypertension Trish Combs M.D. 09/24/2019 R07.89 Other chest pain Trish Combs M.D. 09/24/2019 E86.0 Dehydration Trish Combs M.D. 09/24/2019 E53.8 Deficiency of other specified B group Trish Combs M.D. vitamins 09/24/2019 R06.00 Dyspnea, unspecified Trish Combs M.D. 07/27/2019 R07.89 Other chest pain Trish Combs M.D. 07/27/2019 E86.0 Dehydration Trish Combs M.D. 07/27/2019 I10 Essential (primary) hypertension Trish Combs M.D. 07/27/2019 E53.8 Deficiency of other specified B group Trish Cobms M.D. vitamins 07/27/2019 R06.00 Dyspnea, unspecified Trish Combs M.D. 07/27/2019 G47.00 Insomnia, unspecified Trish Combs M.D. 07/27/2019 Z23 Encounter for immunization Trish Combs M.D. 06/18/2019 R07.89 Other chest pain Trish Combs M.D. 06/18/2019 E86.0 Dehydration Trish Combs M.D. 06/18/2019 I10 Essential (primary) hypertension Trish Combs M.D. 06/18/2019 E53.8 Deficiency of other specified B group Trish Combs M.D. vitamins 06/18/2019 R25.1 Tremor, unspecified Trish Combs M.D. 05/25/2019 R07.89 Other chest pain Trish Combs M.D. 05/25/2019 E86.0 Dehydration Trish Combs M.D. 05/25/2019 I10 Essential (primary) hypertension Trish Combs M.D. 05/25/2019 E53.8 Deficiency of other specified B group Trish Combs M.D. vitamins 05/25/2019 G47.00 Insomnia, unspecified Trish Combs M.D. 05/25/2019 R21 Rash and other nonspecific skin eruption Trish Combs M.D. Plan of Treatment Future Appointment(s):12/21/2019 11:45 am - Trish Combs M.D. at [facility]11/23/2019 - Trish P. Blegen, M.D.I10 Essential (primary) hypertensionComments: ABOVE, DR. KEITH WAS CONCERNED THAT PT NEEDS TO HAVE INCREASED HYDRATION DEHYDRATION CAUSING ISSUES WITH THE LV OUTFLOW TRACT OBSTRUCTION. PT TRIES TO GET MUCH FLUIDS IN ORALLY POSSIBLE BUTLIMITED WHEN GETS NAUSEA/ PAIN FROM ACHALASIA, HAS SLOWED GASTRIC EMPTYING. DOES FLUSH HER TUBE WITHAT LEAST 100-200 CC A FEW TIMES PER DAY. GETS IVF HYDRATION ONCE PER WEEK, DR. KEITH RECOMMENDED INCREASE IVF - AT LEAST TWICE PER WEEK. PT WILL F/U WITH STRESS TESTING WITH DR. KEITH AND WILL HAVE REPEAT ECHO IN NEXT 6 MONTHS TO MAKE SURE IMPROVEMENT SEENFollow up:F/U DECEMBER AT [facility]- 30 MIN- OK TO TAKE 11:45 AND 12 SLOT FOR HER. THANKS!Recommendations:-- YOUR BLOOD PRESSURE IS IMPROVED -- STAY ON THE METOPROLOL 25 MG 1 TABLET TWICE PER DAY -- STAY ON THE LOSARTAN 100 MG PER DAY -- STAY ON THE AMLODIPINE 10 MG PER DAY - - STAY ON THE [id number] MG 1 PER DAY IN THE MORNING -- INCREASE YOUR WATER INTAKE- AIM FOR 8 CUPS PER DAY- TRYADDING IN MORE WATER FLUSHES OF YOUR TUBE -- I WILL INCREASE YOUR IV FLUIDS TO TWICE PER WEEK -- REMINDER TO GET ON WAIT LIST AT PHARMACY FOR THE SHINGRIX SHINGLES [id number] Deficiency of other specified B group vitaminsFollow up:.Recommendations:-- WE GAVE YOU YOUR VITAMIN B12 INJECTION TODAY- CONTINUE ONCE PER MONTH [id number] Other chest painFollow up:.Recommendations:-- CONTINUE TO FOLLOW-UP WITH DR. FOSTER THIS WEEK -- CONTINUE USING YOUR PILL BOX -- CONTINUEYOUR TUBE FEEDS EVERY NIGHT, 5 CANS OF THE JEVITY EVERY UTYSTS13.81 Nasal congestionComments:PT FEELS HER NASAL CONGESTION IS IMPROVED FROM LAST VISIT WITH ADDITION OF AZELASTINE NASAL SPRAY, STILL ON FLUTICASONE NASAL SPRAY , STILL SIGNIFICANT NASAL CONGESTION AT TIMES AND ALSO CLEAR RHINORRHEA OTHER TIMES. NOT USING BENADRYL AT ALL ANYMORE AFTER HAD SEVERE ADVERSE REACTION, OVERSEDATION. SOMETIMES MOMETASONE STEROID NASAL SPRAY WORKS BETTER THAN FLUTICASONE, WILL TRY THAT, RX SENT. IF NOT COVERED BY HER INSURANCE, WILL STAY ON CURRENT REGIMEN.Follow up:.Recommendations:-- CONTINUE THE FLUTICASONE STEROID NASAL SPRAY 2 SPRAYS EACH NOSTRIL ONCE PER DAY-- I WILL SEE IF YOUR INSURANCE WILL COVER THE MOMETASONE NASAL STEROID SPRAY 2 SPRAYS ONCE PER DAY- IF SO, THEN USE MOMETASONE INSTEAD OF THE FLUTICASONE -- CONTINUE THE AZELASTINE ANTIHISTAMINE NASAL SPRAY 2 SPRAYS EACH NOSTRIL ONCE PER DAY, AT OTHER END OF THE DAY FROM FLUTICASONE -- AVOID BENADRYL/ DIPHENHYDRAMINEAND OTHER ANTIHISTAMINES [id number] Neoplasm of uncertain behavior of other specified sitesNew Xrays:Ultrasound Soft Tissue Extremity, Ordered: Comments:HAS APPARENT ROUNDED MASS DEEP RIGHT AXILLA, NOT SUBCUTANEOUS, MAY BE LYMPHADENOPATHY. RECOMMENDED GET ULTRASOUND TO FURTHER EVAL AND WILL GET CONSULT WITH SURGEON, DR. IYER DID HER MASTECTOMY SO WILL GET CONSULT WITH HIM.Follow up:. -- BILATERAL AXILLARY ULTRASOUNDS -- CONSULT DR. IYER (HE DID HER MASTECTOMY 2009) FOR AXILLARYMASS, H/O BREAST CANCERRecommendations:-- GET THE ULTRASOUND OF YOUR ARMPITS (AXILLAE) -- WE WILL HAVE YOU GET A CONSULT WITH DR. IYER Functional Status Functional Condition Comment Date Status Glasses Active Mental Status Description No Information Available Referrals Refer to Dr Reason for Referral Status Appt Date Rock Keith MD F/U DR. KEITH FOR CARDIOLOGY- LVOT ON RECENT ECHO, Closed DIFFICULTY TO CONTROL HTN - - Please contact Pt to schedule appt. - - Please fax appointment date/time to [facility], . [place] [address] [place] [address] [phone]
--- OUTSIDE RECORDS SUMMARY | 2019-12-19 17:47 | XMS REPORT ---
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 [place] [facility] coronary coronary artery w/o artery w/o ang pctrs ang pctrs Encounter Encounter Diagnosis Active Mer[facility]ez for for 07-07 Ingrahm attention attention [id number] to to gastrostomy gastrostomy Gastro-esop Gastro-esop Diagnosis Active Mercedez hageal hageal 07-07 Ingrahm reflux reflux [id number] disease disease without without esophagitis esophagitis Other Other Diagnosis Active Mercedez specified specified 07-07 Ingrahm arthritis, arthritis, [id number] unspecified unspecified site site Essential Essential Diagnosis Active [facility]ez (primary) (primary) 07-07 Ingrahm hypertensio hypertensio [id number] 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 (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) (current) Ingrahm use of use of [id number] anticoagula anticoagula nts nts Nicotine Nicotine Diagnosis Active Mer[facility]ez dependence, dependence, Ingrahm cigarettes, cigarettes, [id number] uncomplicat uncomplicat ed ed Personal Personal Diagnosis Active [facility]ez history of history of Ingrahm malignant malignant [id number] neoplasm of neoplasm of breast breast Prsnl hx of Prsnl hx of Diagnosis Active Mer[facility]ez TIA (TIA), TIA (TIA), Ingrahm and cereb and cereb [id number] infrc w/o infrc w/o resid resid deficits deficits Pain frequent Pain Mgmt Resolve 2018-11-26 Ana pain d 9 16:15:00 [place] 13:30: [id number] 00 Pain severe pain Pain Mgmt Resolve 2018-11-26 Ana d 9 16:15:00 [place] 13:30: [id number] 00 Endo/Han anti-coagul Endo/Han Resolve 2019-02-06 Ana ation d 07-07 11:15:00 [place] therapy 13:30: [id number] 00 Integument surgical Integument Resolve 2018-08-05 Rea wound d 07-07 13:35:00 Guidelli present 13:30: [id number] 00 Nutrition nutritional Nutrition Resolve 2019-01-02 Ana restriction d 07-07 10:00:00 [place] s 13:30: [id number] 00 Nutrition changing Nutrition Resolve 2019-01-02 Ana weight/appe d 07-07 10:00:00 [place] tite 13:30: [id number] 00 Nutrition nutritional Nutrition Resolve 2019-01-02 Ana risk d 07-07 10:00:00 [place] 13:30: [id number] 00 Nutrition enteral Nutrition Resolve 2019-02-06 Ana therapy d 07-07 11:15:00 [place] 13:30: [id number] 00 Safety structural Safety Resolve 2019-02-06 Ana barriers d 07-07 11:15:00 [place] present 13:30: [id number] 00 Safety fall risk Safety Resolve 2019-02-06 Ana factor d 07-07 11:15:00 [place] present 13:30: [id number] 00 Safety risk for Safety Resolve 2019-02-06 Ana hospitaliza d 07-07 11:15:00 [place] tion 13:30: [id number] 00 Medication potential Meds Resolve 2019-02-06 Ana clinically d 07-07 11:15:00 [place] significant 13:30: [id number] medication 00 issue Musculoskel requires Musculoske Resolve 2019-02-06 Ana etal human letal d 07-07 11:15:00 [place] assist to 13:30: [id number] leave home 00 IV IV present IV Resolve 2019-02-06 Rea d 9-30 11:15:00 Lissette [id number] Respiratory dyspnea Respirator Resolve 2017-102019-02-06 Mercedez present y d 0-16 11:15:00 Ingrahm 13:35: [id number] 00 Neuro confusion Neuro/Emot Resolve 2017-102019-02-06 Mer[facility]ez present ion d 0-16 11:15:00 Ingrahm 13:35: [id number] 00 Neuro depressive Neuro/Emot Resolve 2017-102019-02-06 Mer[facility]ez feelings ion d 0-16 11:15:00 Ingrahm present 13:35: [id number] 00 Safety can be left Safety Resolve 2017-102019-02-06 Mercedez alone for d 0-18 11:15:00 Ingrahm only short 08:10: [id number] periods 00 Integument surgical Integument Resolve 2017-102018-10-30 Shila wound d 1-15 10:10:00 Brian present 08:55: [id number] 00 Elimination GI drain or Eliminatio Resolve 2017-102019-02-06 Shila tube n d 1-15 11:15:00 Brian present 08:55: [id number] 00 Neuro anxiety Neuro/Emot Resolve 2017-102019-02-06 Shila present ion d 1-15 11:15:00 Brian 08:55: [id number] 00 Medication injectable Meds Resolve 2017-102019-02-06 Shila med d 1-15 11:15:00 Brian assistance 08:55: [id number] required 00 Safety fire risk Safety Resolve 2017-102019-02-06 Shila present d 1-15 11:15:00 Brian 13:00: [id number] 00 Elimination urinary Eliminatio Resolve 2019-02-06 Mercedez incontinenc n d 1- 11:15:00 Ingrahm e 14:20: [id number] 00 Pain frequent Pain Mgmt Resolve 2019-02-06 Mercedez pain d 2-15 11:15:00 Ingrahm 10:15: [id number] 00 Safety risk for Safety Unknown Leanna denis 02-06 Regeczi tion 15:45: [id number] 00 Respiratory lung sounds Respirator Resolve 2019-04-03 Leanna deficit y d 4-23 10:01:00 Regeczi 13:20: [id number] 00 Respiratory smoker Respirator Resolve 2019-04-03 Leanna y d 4-29 10:01:00 Regeczi 12:10: [id number] 00 Respiratory dyspnea Respirator Resolve 2019-06-05 Mer[facility]ez present y d 5-15 10:30:00 Ingrahm 09:00: [id number] 00 Integument surgical Integument Resolve 2019-03-27 Mercedez wound d 5-15 09:15:00 Ingrahm present 09:00: [id number] 00 Nutrition enteral Nutrition Resolve 2019-03-27 Mercedez therapy d 5-15 09:15:00 Ingrahm 09:00: [id number] 00 Elimination urinary Eliminatio Resolve 2019-04-10 Mercedez incontinenc n d 5-15 09:30:00 Ingrahm e 09:00: [id number] 00 Neuro confusion Neuro/Emot Active Mercedez present ion 5-15 Ingrahm 09:00: [id number] 00 Neuro anxiety Neuro/Emot Active 2018- Mercedez present ion 5-15 Ingrahm 09:00: [id number] 00 Neuro depressive Neuro/Emot Active 2018- Mercedez feelings ion 5-15 Ingrahm present 09:00: [id number] 00 Neuro impaired Neuro/Emot Active 2018- Mercedez decision-ma ion 5-15 Ingrahm sonali 09:00: [id number] 00 Activity self-care Activity Resolve 2019-05-20 Mercedez deficit d 5-15 11:15:00 Ingrahm 09:00: [id number] 00 Safety fall risk Safety Resolve 2019-07-17 Mercedez factor d 5-15 10:35:00 Ingrahm present 09:00: [id number] 00 Safety risk for Safety Resolve 2019-07-17 Mercedez hospitaliza d 5-15 10:35:00 Ingrahm tion 09:00: [id number] 00 Medication potential Meds Resolve 2019-03-27 Mercedez clinically d 5-15 09:15:00 Ingrahm significant 09:00: [id number] medication 00 issue Integument surgical Integument Resolve 2019-05-20 Mercedez wound d 7-12 11:15:00 Ingrahm present 10:00: [id number] 00 Nutrition enteral Nutrition Resolve 2019-06-26 Mercedez therapy d 7-12 10:35:00 Ingrahm 10:00: [id number] 00 Respiratory dyspnea Respirator Resolve 2019-08-07 Leanna present y d 06-26 10:25:00 Regeczi 10:35: [id number] 00 Respiratory smoker Respirator Resolve 2019-07-01 Leanna y d 06-26 10:15:00 Regeczi 10:35: [id number] 00 Endo/Han anti-coagul Endo/Han Resolve 2019-07-23 Leanna ation d 06-26 10:15:00 Regeczi therapy 10:35: [id number] 00 Elimination urinary Eliminatio Resolve 2019-07-23 Leanna incontinenc n d 06-26 10:15:00 Regeczi e 10:35: [id number] 00 Elimination nausea/vomi Eliminatio Resolve 2019-07-01 Leanna ting n d 06-26 10:15:00 Regeczi 10:35: [id number] 00 Integument surgical Integument Resolve 2019-07-23 Mercedez wound d 9-11 10:15:00 Ingrahm present 10:15: [id number] 00 Nutrition enteral Nutrition Resolve 2019-07-23 Mercedez therapy d 9 10:15:00 Ingrahm 10:15: [id number] 00 Respiratory smoker Respirator Resolve 2019-07-16 Leanna y d 07-16 10:05:00 Regeczi 10:05: [id number] 00 Elimination diarrhea Eliminatio Resolve 2019-07-23 Leanna n d 07-17 10:15:00 Regeczi 10:35: [id number] 00 Cardio hypertensio Cardiovasc Resolve 2018-102019-07-30 Leanna eastman d 003 10:00:00 Regeczi 10:15: [id number] 00 Safety risk for Safety Resolve 2018-102019-07-23 Leanna hospitaliza d 0-03 10:15:00 Regeczi tion 10:15: [id number] 00 24 Hr Diet knowledge/s NT: 24Hr Resolve 2018-102019-07-23 Wen kill Diet d 0-03 15:00:00 [place] deficit - 15:00: [id number] pt 00 Nutritional eating NT: Resolve 2018-102019-07-23 Wen Barrier difficultie Barriers d 0-03 15:00:00 [place] s present 15:00: [id number] Safety risk for Safety Resolve 2018-102019-08-07 Roseline hospitaliza d 0-04 10:25:00 [place] tion 14:00: [id number] 00 Social financial MURIEL: Active 2018-10 [facility] resource Social 0-04 [place] deficit Services 14:00: [id number] 00 Social support MURIEL: Active 2018-10 [facility] deficit Social 0-04 [place] Services 14:00: [id number] 00 Social knowledge/s MURIEL: Active 2018-10 [facility] kill Social 0-04 [place] deficit - Services 14:00: [id number] pt 00 Social financial MURIEL: Unknown 2018-10 [facility] Services resource Social 0-10 Ingrahm deficit Services 15:00: [id number] 00 Social knowledge/s MURIEL: Unknown 2018-10 [facility] Services kill Social 0-10 Ingrahm deficit - Services 15:00: [id number] pt 00 Respiratory lung sounds Respirator Resolve 2018-102019-08-07 Leanna deficit y d 0-18 10:25:00 Regeczi 10:25: [id number] 00 Respiratory dyspnea Respirator Resolve 2018-102019-10-23 Mercedez present y d 10-28 10:15:00 Ingrahm 11:00: [id number] 00 Integument surgical Integument Resolve 2018-102019-09-11 Mercedez wound d 10-28 09:50:00 Ingrahm present 11:00: [id number] 00 Nutrition enteral Nutrition Resolve 2018-102019-09-11 Mercedez therapy d 10-28 09:50:00 Ingrahm 11:00: [id number] 00 Elimination urinary Eliminatio Resolve 2018-102019-09-11 Mercedez incontinenc n d 10-28 09:50:00 Ingrahm e 11:00: [id number] 00 Safety fall risk Safety Resolve 2018-102019-09-11 Mercedez factor d 10-28 09:50:00 Ingrahm present 11:00: [id number] 00 Safety risk for Safety Resolve 2018-102019-09-23 Mercedez hospitaliza d 10-28 11:10:00 Ingrahm tion 11:00: [id number] 00 Safety risk for Safety Unknown 2018-10 Mercedez hospitaliza 11-24 Ingrahm tion 15:00: [id number] 00 Cardio hypertensio Cardiovasc Active Leanna n ular 10-23 Regeczi 10:15: [id number] 00 Elimination urinary Eliminatio Resolve 2019-11-05 Leanna incontinenc n d 10-23 10:23:00 Regeczi e 10:15: [id number] 00 Elimination constipatio Eliminatio Resolve 2019-11-05 Leanna n n d 10-23 10:23:00 Regeczi 10:15: [id number] 00 Integument surgical Integument Active Mercedez wound 10-28 Ingrahm present 10:50: [id number] 00 Nutrition enteral Nutrition Active Mercedez therapy 10-28 Ingrahm 10:50: [id number] 00 Elimination UTI within Eliminatio Resolve 2019-11-05 Mercedez past 14 n d 10-28 10:23:00 Ingrahm days 10:50: [id number] 00 Activity self-care Activity Resolve 2019-11-05 Mercedez deficit d 10-28 10:23:00 Ingrahm 10:50: [id number] 00 Safety fall risk Safety Resolve 2019-11-05 Mercedez factor d 10-28 10:23:00 Ingrahm present 10:50: [id number] 00 Safety risk for Safety Resolve 2019-11-05 Mercedez hospitaliza d 10-28 10:23:00 Ingrahm tion 10:50: [id number] 00 Allergies, Adverse Reactions, Alerts Allergy Allergy Status Severity Reaction(s) Onset Inactive Treating Comments Name Type Date Date Clinician latex Base Active Unknown Hives Mercedez Ingredient 07-07 Ingrahm [id number] amoxicillin Base Active Unknown Anaphylaxis Mer[facility]ez Ingredient 07-07 [facility] [id number] bee venom Base Active Unknown Anaphylaxis Mer[facility]ez protein Ingredient 07-07 [facility] (honey bee) [id number] Botox Medication Active Unknown Anaphylaxis Mercedez Name ID 07-07 [facility] [id number] contrast Unknown Active Unknown Anaphylaxis Mercedez dye 07-07 [facility] [id number] Penicillins Allergen Active Unknown Anaphylaxis Mer[facility]ez Group 07-07 [facility] [id number] shellfish Base Active Unknown Anaphylaxis Mercedez derived Ingredient 07-07 [facility] [id number] adhesive Base Active Unknown Hives Mercedez tape Ingredient 07-07 [facility] [id number] nsaids Unknown Active Unknown stomach issues Mercedez 07-07 [facility] [id number] oxycodone Base Active Unknown swelling Mercedez Ingredient 07-07 [facility] [id number] Betadine Medication Active Unknown Rash Mercedez Name ID 07-07 [facility] [id number] Hibiclens Medication Active Unknown Rash Mercedez Name ID 07-07 [facility] [id number] evironmenta Unknown Active Unknown hay fever, Rea l/seasonal watery eye, 07-07 Guidelli itching, [id number] sneeze, congestion povidone-io Base Active Unknown itching Rea dine Ingredient 07-07 Guidelli [id number] Iodine and Allergen Active Unknown Anaphylaxis Rea Iodide Group 07-07 Guidelli Containing [id number] Products albumin Base Active Unknown Anaphylaxis Rea colloid, Ingredient 07-07 Guidelli human [id number] fentanyl Base Active Unknown hallucinations Rea Ingredient 07-07 Guidelli [id number] Medications Ordered Filled Start Stop Current Ordering [...]
--- OUTSIDE RECORDS SUMMARY | 2019-12-19 17:47 | XMS REPORT ---
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 w/o artery w/o ang pctrs ang pctrs Encounter Encounter Diagnosis Active Mercedez for for 07-07 Ingrahm attention attention [id number] to to gastrostomy gastrostomy Gastro-esop Gastro-esop Diagnosis Active Mercedez hageal hageal 07-07 Ingrahm reflux reflux [id number] disease disease without without esophagitis esophagitis Other Other Diagnosis Active Mercedez specified specified 07-07 Ingrahm arthritis, arthritis, [id number] unspecified unspecified site site Essential Essential Diagnosis Active Mercedez (primary) (primary) 07-07 Ingrahm hypertensio hypertensio 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 (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) (current) Ingrahm use of use of [id number] anticoagula anticoagula nts nts Nicotine Nicotine Diagnosis Active Mercedez dependence, dependence, Ingrahm cigarettes, cigarettes, [id number] uncomplicat uncomplicat ed ed Personal Personal Diagnosis Active Mercedez history of history of Ingrahm malignant malignant [id number] neoplasm of neoplasm of breast breast Prsnl hx of Prsnl hx of Diagnosis Active Mercedez TIA (TIA), TIA (TIA), Ingrahm and cereb and cereb [id number] infrc w/o infrc w/o resid resid deficits deficits Pain frequent Pain Mgmt Resolve 2018-11-26 Ana pain d 9 16:15:00 Reading 13:30: [id number] 00 Pain severe pain Pain Mgmt Resolve 2018-11-26 Ana d 9 16:15:00 Reading 13:30: [id number] 00 Endo/Han anti-coagul Endo/Han Resolve 2019-02-06 Ana ation d 07-07 11:15:00 Reading therapy 13:30: [id number] 00 Integument surgical Integument Resolve 2018-08-05 Rea wound d 07-07 13:35:00 Guidelli present 13:30: [id number] 00 Nutrition nutritional Nutrition Resolve 2019-01-02 Ana restriction d 07-07 10:00:00 Reading s 13:30: [id number] 00 Nutrition changing Nutrition Resolve 2019-01-02 Ana weight/appe d 07-07 10:00:00 Reading tite 13:30: [id number] 00 Nutrition nutritional Nutrition Resolve 2019-01-02 Ana risk d 07-07 10:00:00 Reading 13:30: [id number] 00 Nutrition enteral Nutrition Resolve 2019-02-06 Ana therapy d 07-07 11:15:00 Reading 13:30: [id number] 00 Safety structural Safety Resolve 2019-02-06 Ana barriers d 07-07 11:15:00 Reading present 13:30: [id number] 00 Safety fall risk Safety Resolve 2019-02-06 Ana factor d 07-07 11:15:00 Reading present 13:30: [id number] 00 Safety risk for Safety Resolve 2019-02-06 Ana hospitaliza d 07-07 11:15:00 Reading tion 13:30: [id number] 00 Medication potential Meds Resolve 2019-02-06 Ana clinically d 07-07 11:15:00 Reading significant 13:30: [id number] medication 00 issue Musculoskel requires Musculoske Resolve 2019-02-06 Ana etal human letal d 07-07 11:15:00 Reading assist to 13:30: [id number] leave home 00 IV IV present IV Resolve 2019-02-06 Rea d 9-30 11:15:00 Lissette [id number] Respiratory dyspnea Respirator Resolve 2017-102019-02-06 Mercedez present y d 0-16 11:15:00 Ingrahm 13:35: [id number] 00 Neuro confusion Neuro/Emot Resolve 2017-102019-02-06 Mercedez present ion d 0-16 11:15:00 Ingrahm 13:35: [id number] 00 Neuro depressive Neuro/Emot Resolve 2017-102019-02-06 Mercedez feelings ion d 0-16 11:15:00 Ingrahm present 13:35: [id number] 00 Safety can be left Safety Resolve 2017-102019-02-06 Mercedez alone for d 0-18 11:15:00 Ingrahm only short 08:10: [id number] 00 Integument surgical Integument Resolve 2017-102018-10-30 Shila wound d 1-15 10:10:00 Brian present 08:55: [id number] 00 Elimination GI drain or Eliminatio Resolve 2017-102019-02-06 Shila tube n d 1-15 11:15:00 Brian present 08:55: [id number] 00 Neuro anxiety Neuro/Emot Resolve 2017-102019-02-06 Shila present ion d 1-15 11:15:00 Brian 08:55: [id number] 00 Medication injectable Meds Resolve 2017-102019-02-06 Shila med d 1-15 11:15:00 Brian assistance 08:55: [id number] required 00 Safety fire risk Safety Resolve 2017-102019-02-06 Shila present d 1-15 11:15:00 Brian 13:00: [id number] 00 Elimination urinary Eliminatio Resolve 2019-02-06 Mercedez incontinenc n d 1- 11:15:00 Ingrahm e 14:20: [id number] 00 Pain frequent Pain Mgmt Resolve 2019-02-06 Mercedez pain d 2-15 11:15:00 Ingrahm 10:15: [id number] 00 Safety risk for Safety Unknown Leanna denis 02-06 Regeczi tion 15:45: [id number] 00 Respiratory lung sounds Respirator Resolve 2019-04-03 Leanna deficit y d 4-23 10:01:00 Regeczi 13:20: [id number] 00 Respiratory smoker Respirator Resolve 2019-04-03 Leanna y d 4-29 10:01:00 Regeczi 12:10: [id number] 00 Respiratory dyspnea Respirator Resolve 2019-06-05 Mercedez present y d 5-15 10:30:00 Ingrahm 09:00: [id number] 00 Integument surgical Integument Resolve 2019-03-27 Mercedez wound d 5-15 09:15:00 Ingrahm present 09:00: [id number] 00 Nutrition enteral Nutrition Resolve 2019-03-27 Mercedez therapy d 5-15 09:15:00 Ingrahm 09:00: [id number] 00 Elimination urinary Eliminatio Resolve 2019-04-10 Mercedez incontinenc n d 5-15 09:30:00 Ingrahm e 09:00: [id number] 00 Neuro confusion Neuro/Emot Active Mercedez present ion 5-15 Ingrahm 09:00: [id number] 00 Neuro anxiety Neuro/Emot Active 2018- Mercedez present ion 5-15 Ingrahm 09:00: [id number] 00 Neuro depressive Neuro/Emot Active 2018- Mercedez feelings ion 5-15 Ingrahm present 09:00: [id number] 00 Neuro impaired Neuro/Emot Active 2018- Mercedez decision-ma ion 5-15 Ingrahm sonali 09:00: [id number] 00 Activity self-care Activity Resolve 2019-05-20 Mercedez deficit d 5-15 11:15:00 Ingrahm 09:00: [id number] 00 Safety fall risk Safety Resolve 2019-07-17 Mercedez factor d 5-15 10:35:00 Ingrahm present 09:00: [id number] 00 Safety risk for Safety Resolve 2019-07-17 Mercedez hospitaliza d 5-15 10:35:00 Ingrahm tion 09:00: [id number] 00 Medication potential Meds Resolve 2019-03-27 Mercedez clinically d 5-15 09:15:00 Ingrahm significant 09:00: [id number] medication 00 issue Integument surgical Integument Resolve 2019-05-20 Mercedez wound d 7-12 11:15:00 Ingrahm present 10:00: [id number] 00 Nutrition enteral Nutrition Resolve 2019-06-26 Mercedez therapy d 7-12 10:35:00 Ingrahm 10:00: [id number] 00 Respiratory dyspnea Respirator Resolve 2019-08-07 Leanna present y d 06-26 10:25:00 Regeczi 10:35: [id number] 00 Respiratory smoker Respirator Resolve 2019-07-01 Leanna y d 06-26 10:15:00 Regeczi 10:35: [id number] 00 Endo/Han anti-coagul Endo/Han Resolve 2019-07-23 Leanna ation d 06-26 10:15:00 Regeczi therapy 10:35: [id number] 00 Elimination urinary Eliminatio Resolve 2019-07-23 Leanna incontinenc n d 06-26 10:15:00 Regeczi e 10:35: [id number] 00 Elimination nausea/vomi Eliminatio Resolve 2019-07-01 Leanna ting n d 06-26 10:15:00 Regeczi 10:35: [id number] 00 Integument surgical Integument Resolve 2019-07-23 Mercedez wound d 9-11 10:15:00 Ingrahm present 10:15: [id number] 00 Nutrition enteral Nutrition Resolve 2019-07-23 Mercedez therapy d 9 10:15:00 Ingrahm 10:15: [id number] 00 Respiratory smoker Respirator Resolve 2019-07-16 Leanna y d 07-16 10:05:00 Regeczi 10:05: [id number] 00 Elimination diarrhea Eliminatio Resolve 2019-07-23 Leanna n d 07-17 10:15:00 Regeczi 10:35: [id number] 00 Cardio hypertensio Cardiovasc Resolve 2018-102019-07-30 Leanna eastman d 003 10:00:00 Regeczi 10:15: [id number] 00 Safety risk for Safety Resolve 2018-102019-07-23 Leanna hospitaliza d 0-03 10:15:00 Regeczi tion 10:15: [id number] 00 24 Hr Diet knowledge/s NT: 24Hr Resolve 2018-102019-07-23 Wen kill Diet d 0-03 15:00:00 Bussey deficit - 15:00: [id number] pt 00 Nutritional eating NT: Resolve 2018-102019-07-23 Wen Barrier difficultie Barriers d 0-03 15:00:00 Bussey s present 15:00: [id number] 00 Safety risk for Safety Resolve 2018-102019-08-07 Roseline hospitaliza d 0-04 10:25:00 [place] tion 14:00: [id number] 00 Social financial MURIEL: Active 2018-10 [facility] Services resource Social 0-04 [place] deficit Services 14:00: [id number] 00 Social support MURIEL: Active 2018-10 [facility] deficit Social 0-04 [place] Services 14:00: [id number] 00 Social knowledge/s MURIEL: Active 2018-10 [facility] kill Social 0-04 [place] deficit - Services 14:00: [id number] pt 00 Social financial MURIEL: Unknown 2018-10 [facility] Services resource Social 0-10 Ingrahm deficit Services 15:00: [id number] 00 Social knowledge/s MURIEL: Unknown 2018-10 [facility] Services kill Social 0-10 Ingrahm deficit - Services 15:00: [id number] pt 00 Respiratory lung sounds Respirator Resolve 2018-102019-08-07 Leanna deficit y d 0-18 10:25:00 Regeczi 10:25: [id number] 00 Respiratory dyspnea Respirator Resolve 2018-102019-10-23 Mercedez present y d 10-28 10:15:00 Ingrahm 11:00: [id number] 00 Integument surgical Integument Resolve 2018-102019-09-11 Mercedez wound d 10-28 09:50:00 Ingrahm present 11:00: [id number] 00 Nutrition enteral Nutrition Resolve 2018-102019-09-11 Mercedez therapy d 10-28 09:50:00 Ingrahm 11:00: [id number] 00 Elimination urinary Eliminatio Resolve 2018-102019-09-11 Mercedez incontinenc n d 10-28 09:50:00 Ingrahm e 11:00: [id number] 00 Safety fall risk Safety Resolve 2018-102019-09-11 Mercedez factor d 10-28 09:50:00 Ingrahm present 11:00: [id number] 00 Safety risk for Safety Resolve 2018-102019-09-23 Mercedez hospitaliza d 10-28 11:10:00 Ingrahm tion 11:00: [id number] 00 Safety risk for Safety Unknown 2018-10 Mercedez hospitaliza 11-24 Ingrahm tion 15:00: [id number] 00 Cardio hypertensio Cardiovasc Active Leanna n ular 10-23 Regeczi 10:15: [id number] 00 Elimination urinary Eliminatio Resolve 2019-11-05 Leanna incontinenc n d 10-23 10:23:00 Regeczi e 10:15: [id number] 00 Elimination constipatio Eliminatio Resolve 2019-11-05 Leanna n n d 10-23 10:23:00 Regeczi 10:15: [id number] 00 Integument surgical Integument Active Mercedez wound 10-28 Ingrahm present 10:50: [id number] 00 Nutrition enteral Nutrition Active Mercedez therapy 10-28 Ingrahm 10:50: [id number] 00 Elimination UTI within Eliminatio Resolve 2019-11-05 Mercedez past 14 n d 10-28 10:23:00 Ingrahm days 10:50: [id number] 00 Activity self-care Activity Resolve 2019-11-05 Mercedez deficit d 10-28 10:23:00 Ingrahm 10:50: [id number] 00 Safety fall risk Safety Resolve 2019-11-05 Mercedez factor d 10-28 10:23:00 Ingrahm present 10:50: [id number] 00 Safety risk for Safety Resolve 2019-11-05 Mercedez hospitaliza d 10-28 10:23:00 Ingrahm tion 10:50: [id number] 00 Allergies, Adverse Reactions, Alerts Allergy Allergy Status Severity Reaction(s) Onset Inactive Treating Comments Name Type Date Date Clinician latex Base Active Unknown Hives Mercedez Ingredient 07-07 Ingrahm [id number] amoxicillin Base Active Unknown Anaphylaxis Mer[facility]ez Ingredient 07-07 [facility] [id number] bee venom Base Active Unknown Anaphylaxis Mercedez protein Ingredient 07-07 [facility] (honey bee) [id number] Botox Medication Active Unknown Anaphylaxis Mercedez Name ID 07-07 [facility] [id number] contrast Unknown Active Unknown Anaphylaxis Mercedez dye 07-07 [facility] [id number] Penicillins Allergen Active Unknown Anaphylaxis Mercedez Group 07-07 [facility] [id number] shellfish Base Active Unknown Anaphylaxis Mercedez derived Ingredient 07-07 [facility] [id number] adhesive Base Active Unknown Hives Mercedez tape Ingredient 07-07 [facility] [id number] nsaids Unknown Active Unknown stomach issues Mercedez 07-07 [facility] [id number] oxycodone Base Active Unknown swelling Mercedez Ingredient 07-07 [facility] [id number] Betadine Medication Active Unknown Rash Mercedez Name ID 07-07 [facility] [id number] Hibiclens Medication Active Unknown Rash Mercedez Name ID 07-07 [facility] [id number] evironmenta Unknown Active Unknown hay fever, Rea l/seasonal watery eye, 07-07 Guidelli itching, [id number] sneeze, congestion povidone-io Base Active Unknown itching Rea dine Ingredient 07-07 Guidelli [id number] Iodine and Allergen Active Unknown Anaphylaxis Rea Iodide Group 07-07 Guidelli Containing [id number] Products albumin Base Active Unknown Anaphylaxis Rea colloid, Ingredient 07-07 Guidelli human [id number] fentanyl Base Active Unknown hallucinations Rea Ingredient 07-07 Guidelli [id number] Medications Ordered Filled Start Stop Current Ordering [...]
--- OUTSIDE RECORDS SUMMARY | 2019-12-19 17:47 | XMS REPORT ---
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 torres martinez torres martinez coronary coronary artery w/o artery w/o ang pctrs ang pctrs Encounter Encounter Diagnosis Active [facility] for for 07-07 [facility] attention attention [id number] to to gastrostomy gastrostomy Gastro-esop Gastro-esop Diagnosis Active [facility]ez hageal hageal 07-07 In[facility] reflux reflux [id number] disease disease without without esophagitis esophagitis Other Other Diagnosis Active [facility] specified specified 07-07 Ingrahm arthritis, arthritis, [id number] unspecified unspecified site site Essential Essential Diagnosis Active [facility] (primary) (primary) 07-07 Ingrahm hypertensio hypertensio [id number] 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 Diagnosis Active [facility]ez (current) (current) Ingrahm use of use of [id number] anticoagula anticoagula nts nts Nicotine Nicotine Diagnosis Active [facility] dependence, dependence, [place] cigarettes, cigarettes, [id number] uncomplicat uncomplicat ed ed Personal Personal Diagnosis Active [facility] history of history of [place] malignant malignant [id number] neoplasm of neoplasm of breast breast Prsnl hx of Prsnl hx of Diagnosis Active [facility]ez TIA (TIA), TIA (TIA), Ingrahm and cereb and cereb [id number] infrc w/o infrc w/o resid resid deficits deficits Pain frequent Pain Mgmt Resolve 2018-11-26 Ana pain d 9 16:15:00 [place] 13:30: [id number] 00 Pain severe pain Pain Mgmt Resolve 2018-11-26 Ana d 9 16:15:00 [place] 13:30: [id number] 00 Endo/Han anti-coagul Endo/Han Resolve 2019-02-06 Ana ation d 07-07 11:15:00 [place] therapy 13:30: [id number] 00 Integument surgical Integument Resolve 2018-08-05 Rea wound d 07-07 13:35:00 [place] present 13:30: [id number] 00 Nutrition nutritional Nutrition Resolve 2019-01-02 Ana restriction d 07-07 10:00:00 [place] s 13:30: [id number] 00 Nutrition changing Nutrition Resolve 2019-01-02 Ana weight/appe d 07-07 10:00:00 [place] tite 13:30: [id number] 00 Nutrition nutritional Nutrition Resolve 2019-01-02 Ana risk d 07-07 10:00:00 [place] 13:30: [id number] 00 Nutrition enteral Nutrition Resolve 2019-02-06 Ana therapy d 07-07 11:15:00 [place] 13:30: [id number] 00 Safety structural Safety Resolve 2019-02-06 Ana barriers d 07-07 11:15:00 [place] present 13:30: [id number] 00 Safety fall risk Safety Resolve 2019-02-06 Ana factor d 07-07 11:15:00 [place] present 13:30: [id number] 00 Safety risk for Safety Resolve 2019-02-06 Ana hospitaliza d 07-07 11:15:00 [place] tion 13:30: [id number] 00 Medication potential Meds Resolve 2019-02-06 Ana clinically d 07-07 11:15:00 [place] significant 13:30: [id number] medication 00 issue Musculoskel requires Musculoske Resolve 2019-02-06 Ana etal human letal d 07-07 11:15:00 [place] assist to 13:30: [id number] leave home 00 IV IV present IV Resolve 2019-02-06 Rea d 9-30 11:15:00 [place] [id number] Respiratory dyspnea Respirator Resolve 2017-102019-02-06 [facility] present y d 0-16 11:15:00 [place] 13:35: [id number] 00 Neuro confusion Neuro/Emot Resolve 2017-102019-02-06 [facility] present ion d 0-16 11:15:00 [place] 13:35: [id number] 00 Neuro depressive Neuro/Emot Resolve 2017-102019-02-06 [facility] feelings ion d 0-16 11:15:00 [place] present 13:35: [id number] 00 Safety can be left Safety Resolve 2017-102019-02-06 [facility]ez alone for d 0-18 11:15:00 [place] only short 08:10: [id number] periods 00 Integument surgical Integument Resolve 2017-102018-10-30 Shila wound d 1-15 10:10:00 Brian present 08:55: [id number] 00 Elimination GI drain or Eliminatio Resolve 2017-102019-02-06 Shila tube n d 1-15 11:15:00 Brian present 08:55: [id number] 00 Neuro anxiety Neuro/Emot Resolve 2017-102019-02-06 Shila present ion d 1-15 11:15:00 Brian 08:55: [id number] 00 Medication injectable Meds Resolve 2017-102019-02-06 Shila med d 1-15 11:15:00 Brian assistance 08:55: [id number] required 00 Safety fire risk Safety Resolve 2017-102019-02-06 Shila present d 1-15 11:15:00 Brian 13:00: [id number] 00 Elimination urinary Eliminatio Resolve 2019-02-06 [facility] incontinenc n d 1- 11:15:00 [place] e 14:20: [id number] 00 Pain frequent Pain Mgmt Resolve 2019-02-06 [facility] pain d 2-15 11:15:00 [place] 10:15: [id number] 00 Safety risk for Safety Unknown Leanna denis 02-06 [place] tion 15:45: [id number] 00 Respiratory lung sounds Respirator Resolve 2019-04-03 Leanna deficit y d 4-23 10:01:00 [place] 13:20: [id number] 00 Respiratory smoker Respirator Resolve 2019-04-03 Leanna y d 4-29 10:01:00 Rege[place] 12:10: [id number] 00 Respiratory dyspnea Respirator Resolve 2019-06-05 [facility] present y d 5-15 10:30:00 [place] 09:00: [id number] 00 Integument surgical Integument Resolve 2019-03-27 [facility] wound d 5-15 09:15:00 [place] present 09:00: [id number] 00 Nutrition enteral Nutrition Resolve 2019-03-27 [facility] therapy d 5-15 09:15:00 [place] 09:00: [id number] 00 Elimination urinary Eliminatio Resolve 2019-04-10 [facility] incontinenc n d 5-15 09:30:00 [place] e 09:00: [id number] 00 Neuro confusion Neuro/Emot Active [facility]ez present ion 5-15 [place] 09:00: [id number] 00 Neuro anxiety Neuro/Emot Active 2018- [facility] present ion 5-15 [place] 09:00: [id number] 00 Neuro depressive Neuro/Emot Active 2018- [facility] feelings ion 5-15 [facility] present 09:00: [id number] 00 Neuro impaired Neuro/Emot Active 2018- [facility] decision-ma ion 5-15 Ingrahm sonali 09:00: [id number] 00 Activity self-care Activity Resolve 2019-05-20 Mercedze deficit d 5-15 11:15:00 [place] 09:00: [id number] 00 Safety fall risk Safety Resolve 2019-07-17 Mer[facility]ez factor d 5-15 10:35:00 [place] present 09:00: [id number] 00 Safety risk for Safety Resolve 2019-07-17 Mer[facility]ez hospitaliza d 5-15 10:35:00 [place]gra[place] tion 09:00: [id number] 00 Medication potential Meds Resolve 2019-03-27 Mercedez clinically d 5-15 09:15:00 In[place] significant 09:00: [id number] medication 00 issue Integument surgical Integument Resolve 2019-05-20 [facility] wound d 7-12 11:15:00 [place] present 10:00: [id number] 00 Nutrition enteral Nutrition Resolve 2019-06-26 [facility]ez therapy d 7-12 10:35:00 [place] 10:00: [id number] 00 Respiratory dyspnea Respirator Resolve 2019-08-07 Leanna present y d 06-26 10:25:00 Rege[place] 10:35: [id number] 00 Respiratory smoker Respirator Resolve 2019-07-01 Leanna y d 06-26 10:15:00 Rege[place] 10:35: [id number] 00 Endo/Han anti-coagul Endo/Han Resolve 2019-07-23 Leanna ation d 06-26 10:15:00 Rege[place]zi therapy 10:35: [id number] 00 Elimination urinary Eliminatio Resolve 2019-07-23 Leanna incontinenc n d 06-26 10:15:00 Rege[place]zi e 10:35: [id number] 00 Elimination nausea/vomi Eliminatio Resolve 2019-07-01 Leanna ting n d 06-26 10:15:00 Rege[place]zi 10:35: [id number] 00 Integument surgical Integument Resolve 2019-07-23 [facility] wound d 9-11 10:15:00 [place] present 10:15: [id number] 00 Nutrition enteral Nutrition Resolve 2019-07-23 [facility]ez therapy d 9 10:15:00 [place] 10:15: [id number] 00 Respiratory smoker Respirator Resolve 2019-07-16 Leanna y d 07-16 10:05:00 Rege[place]zi 10:05: [id number] 00 Elimination diarrhea Eliminatio Resolve 2019-07-23 Leanna n d 07-17 10:15:00 [place] 10:35: [id number] 00 Cardio hypertensio Cardiovasc Resolve 2018-102019-07-30 Leanna eastman d 003 10:00:00 [place] 10:15: [id number] 00 Safety risk for Safety Resolve 2018-102019-07-23 Leanna hospitaliza d 0-03 10:15:00 Rege[place] tion 10:15: [id number] 00 24 Hr Diet knowledge/s NT: 24Hr Resolve 2018-102019-07-23 Wen kill Diet d 0-03 15:00:00 [place] deficit - 15:00: [id number] pt 00 Nutritional eating NT: Resolve 2018-102019-07-23 Wen Barrier difficultie Barriers d 0-03 15:00:00 [place] s present 15:00: [id number] Safety risk for Safety Resolve 2018-102019-08-07 [facility] hospitaliza d 0-04 10:25:00 [place] tion 14:00: [id number] 00 Social financial MURIEL: Active 2018-10 [facility] resource Social 0-04 [place] deficit Services 14:00: [id number] 00 Social support MURIEL: Active 2018-10 [facility] deficit Social 0-04 [place] Services 14:00: [id number] 00 Social knowledge/s MURIEL: Active 2018-10 [facility] kill Social 0-04 [place] deficit - Services 14:00: [id number] pt 00 Social financial MURIEL: Unknown 2018-10 [facility] Services resource Social 0-10 [facility] deficit Services 15:00: [id number] 00 Social knowledge/s MURIEL: Unknown 2018-10 [facility] Services kill Social 0-10 [facility] deficit - Services 15:00: [id number] pt 00 Respiratory lung sounds Respirator Resolve 2018-102019-08-07 Leanna deficit y d 0-18 10:25:00 Rege[place]zi 10:25: [id number] 00 Respiratory dyspnea Respirator Resolve 2018-102019-10-23 [facility]ez present y d 10-28 10:15:00 [place] 11:00: [id number] 00 Integument surgical Integument Resolve 2018-102019-09-11 [facility] wound d 10-28 09:50:00 In[place] present 11:00: [id number] 00 Nutrition enteral Nutrition Resolve 2018-102019-09-11 [facility] therapy d 10-28 09:50:00 [place] 11:00: [id number] 00 Elimination urinary Eliminatio Resolve 2018-102019-09-11 [facility] incontinenc n d 10-28 09:50:00 Ingrahm e 11:00: [id number] 00 Safety fall risk Safety Resolve 2018-102019-09-11 [facility]ez factor d 10-28 09:50:00 [place] present 11:00: [id number] 00 Safety risk for Safety Resolve 2018-102019-09-23 [facility] hospitaliza d 10-28 11:10:00 In[place] tion 11:00: [id number] 00 Safety risk for Safety Unknown 2018-10 Mer[facility]ez hospitaliza 11-24 Ingrahm tion 15:00: [id number] 00 Cardio hypertensio Cardiovasc Active Leanna n ular 10-23 Regeczi 10:15: [id number] 00 Elimination urinary Eliminatio Resolve 2019-11-05 Leanna incontinenc n d 10-23 10:23:00 Regeczi e 10:15: [id number] 00 Elimination constipatio Eliminatio Resolve 2019-11-05 Leanna n n d 10-23 10:23:00 Re[place] 10:15: [id number] 00 Integument surgical Integument Active Mer[facility]ez wound 10-28 Ingrahm present 10:50: [id number] 00 Nutrition enteral Nutrition Active Mer[facility]ez therapy 10-28 In[place] 10:50: [id number] 00 Elimination UTI within Eliminatio Resolve 2019-11-05 Mercedez past 14 n d 10-28 10:23:00 Ingrahm days 10:50: [id number] 00 Activity self-care Activity Resolve 2019-11-05 [facility] deficit d 10-28 10:23:00 [place] 10:50: [id number] 00 Safety fall risk Safety Resolve 2019-11-05 Mer[facility]ez factor d 10-28 10:23:00 [place] present 10:50: [id number] 00 Safety risk for Safety Resolve 2019-11-05 Mer[facility]ez hospitaliza d 10-28 10:23:00 Ingra[place] tion 10:50: [id number] 00 Allergies, Adverse Reactions, Alerts Allergy Allergy Status Severity Reaction(s) Onset Inactive Treating Comments Name Type Date Date Clinician latex Base Active Unknown Hives [facility]ez Ingredient 07-07 Ingrahm [id number] amoxicillin Base Active Unknown Anaphylaxis [facility] Ingredient 07-07 [facility] [id number] bee venom Base Active Unknown Anaphylaxis [facility] protein Ingredient 07-07 [facility] (honey bee) [id number] Botox Medication Active Unknown Anaphylaxis [facility]ez Name ID 07-07 [facility] [id number] contrast Unknown Active Unknown Anaphylaxis Mercedez dye 07-07 [facility] [id number] Penicillins Allergen Active Unknown Anaphylaxis [facility] Group 07-07 [facility] [id number] shellfish Base Active Unknown Anaphylaxis [facility] derived Ingredient 07-07 [facility] [id number] adhesive Base Active Unknown Hives [facility] tape Ingredient 07-07 [facility] [id number] nsaids Unknown Active Unknown stomach issues Mercedez 07-07 [facility] [id number] oxycodone Base Active Unknown swelling Mer[facility]ez Ingredient 07-07 [facility] [id number] Betadine Medication Active Unknown Rash [facility]ez Name ID 07-07 [facility] [id number] Hibiclens Medication Active Unknown Rash [facility]ez Name ID 07-07 [facility] [id number] evironmenta Unknown Active Unknown hay fever, Rea l/seasonal watery eye, 07-07 [place] itching, [id number] sneeze, congestion povidone-io Base Active Unknown itching Rea dine Ingredient 07-07 [facility] [id number] Iodine and Allergen Active Unknown Anaphylaxis Rea Iodide Group 07-07 [place] Containing [id number] Products albumin Base Active Unknown Anaphylaxis Rea colloid, Ingredient 07-07 [facility] human [id number] fentanyl Base Active Unknown hallucinations Rea Ingredient 07-07 [place] [id number] Medications Ordered Filled Start Stop Current Ordering [...] n 40 mg n 40 mg 11-18 [place]ia FINCH tablet tablet e morphine 10 morphine [...]
--- OUTSIDE RECORDS SUMMARY | 2019-12-19 17:48 | XMS REPORT ---
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 ang pctrs ang pctrs Encounter Encounter Diagnosis Active Mercedez for for 07-07 In[facility] attention attention [id number] to to gastrostomy gastrostomy Gastro-esop Gastro-esop Diagnosis Active Mercedez hageal hageal 07-07 Ingra[facility] reflux reflux [id number] disease disease without without esophagitis esophagitis Other Other Diagnosis Active Mercedez specified specified 07-07 In[facility] arthritis, arthritis, [id number] unspecified unspecified site site Essential Essential Diagnosis Active Mercedez (primary) (primary) 07-07 In[place] hypertensio hypertensio [id number] 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) Ingrahm use of use of [id number] anticoagula anticoagula nts nts Nicotine Nicotine Diagnosis Active Mercedez dependence, dependence, In[place] cigarettes, cigarettes, [id number] uncomplicat uncomplicat ed ed Personal Personal Diagnosis Active Mer[facility]ez history of history of [place] malignant malignant [id number] neoplasm of neoplasm of breast breast Prsnl hx of Prsnl hx of Diagnosis Active Mercedez TIA (TIA), TIA (TIA), Ingrahm and cereb and cereb [id number] infrc w/o infrc w/o resid resid deficits deficits Pain frequent Pain Mgmt Resolve 2018-11-26 Ana pain d 9 16:15:00 [place] 13:30: [id number] 00 Pain severe pain Pain Mgmt Resolve 2018-11-26 Ana d 9 16:15:00 [place] 13:30: [id number] 00 Endo/Han anti-coagul Endo/Han Resolve 2019-02-06 Ana ation d 07-07 11:15:00 [place] therapy 13:30: [id number] 00 Integument surgical Integument Resolve 2018-08-05 Rea wound d 07-07 13:35:00 [place] present 13:30: [id number] 00 Nutrition nutritional Nutrition Resolve 2019-01-02 Ana restriction d 07-07 10:00:00 [place] s 13:30: [id number] 00 Nutrition changing Nutrition Resolve 2019-01-02 Ana weight/appe d 07-07 10:00:00 [place] tite 13:30: [id number] 00 Nutrition nutritional Nutrition Resolve 2019-01-02 Ana risk d 07-07 10:00:00 [place] 13:30: [id number] 00 Nutrition enteral Nutrition Resolve 2019-02-06 Ana therapy d 07-07 11:15:00 [place] 13:30: [id number] 00 Safety structural Safety Resolve 2019-02-06 Ana barriers d 07-07 11:15:00 [place] present 13:30: [id number] 00 Safety fall risk Safety Resolve 2019-02-06 Ana factor d 07-07 11:15:00 [place] present 13:30: [id number] 00 Safety risk for Safety Resolve 2019-02-06 Ana hospitaliza d 07-07 11:15:00 [place] tion 13:30: [id number] 00 Medication potential Meds Resolve 2019-02-06 Ana clinically d 07-07 11:15:00 [place] significant 13:30: [id number] medication 00 issue Musculoskel requires Musculoske Resolve 2019-02-06 Ana etal human letal d 07-07 11:15:00 [place] assist to 13:30: [id number] leave home 00 IV IV present IV Resolve 2019-02-06 Rea d 9-30 11:15:00 Lissette [id number] Respiratory dyspnea Respirator Resolve 2017-102019-02-06 Mer[facility]ez present y d 0-16 11:15:00 [place] 13:35: [id number] 00 Neuro confusion Neuro/Emot Resolve 2017-102019-02-06 Mercedez present ion d 0-16 11:15:00 [place] 13:35: [id number] 00 Neuro depressive Neuro/Emot Resolve 2017-102019-02-06 Mercdeez feelings ion d 0-16 11:15:00 [place] present 13:35: [id number] 00 Safety can be left Safety Resolve 2017-102019-02-06 Mercedez alone for d 0-18 11:15:00 [place] only short 08:10: [id number] periods 00 Integument surgical Integument Resolve 2017-102018-10-30 Shila wound d 1-15 10:10:00 Brian present 08:55: [id number] 00 Elimination GI drain or Eliminatio Resolve 2017-102019-02-06 Shila tube n d 1-15 11:15:00 Brian present 08:55: [id number] 00 Neuro anxiety Neuro/Emot Resolve 2017-102019-02-06 Shila present ion d 1-15 11:15:00 Brian 08:55: [id number] 00 Medication injectable Meds Resolve 2017-102019-02-06 Shila med d 1-15 11:15:00 Brian assistance 08:55: [id number] required 00 Safety fire risk Safety Resolve 2017-102019-02-06 Shila present d 1-15 11:15:00 Brian 13:00: [id number] 00 Elimination urinary Eliminatio Resolve 2019-02-06 Mercedez incontinenc n d 1- 11:15:00 In[place] e 14:20: [id number] 00 Pain frequent Pain Mgmt Resolve 2019-02-06 Mercedez pain d 2-15 11:15:00 In[place] 10:15: [id number] 00 Safety risk for Safety Unknown Leanna denis 02-06 Rege[place] tion 15:45: [id number] 00 Respiratory lung sounds Respirator Resolve 2019-04-03 Leanna deficit y d 4-23 10:01:00 Regeczi 13:20: [id number] 00 Respiratory smoker Respirator Resolve 2019-04-03 Leanna y d 4-29 10:01:00 Regeczi 12:10: [id number] 00 Respiratory dyspnea Respirator Resolve 2019-06-05 Mercedez present y d 5-15 10:30:00 [place] 09:00: [id number] 00 Integument surgical Integument Resolve 2019-03-27 Mercedez wound d 5-15 09:15:00 Ingra[place] present 09:00: [id number] 00 Nutrition enteral Nutrition Resolve 2019-03-27 Mercedez therapy d 5-15 09:15:00 [place] 09:00: [id number] 00 Elimination urinary Eliminatio Resolve 2019-04-10 Mercedez incontinenc n d 5-15 09:30:00 Ingrahm e 09:00: [id number] 00 Neuro confusion Neuro/Emot Active Mercedez present ion 5-15 Ingra[place] 09:00: [id number] 00 Neuro anxiety Neuro/Emot Active 2018- Mercedez present ion 5-15 In[place] 09:00: [id number] 00 Neuro depressive Neuro/Emot Active 2018- Mercedez feelings ion 5-15 Ingrahm present 09:00: [id number] 00 Neuro impaired Neuro/Emot Active 2018- Mercedez decision-ma ion 5-15 Ingrahm sonali 09:00: [id number] 00 Activity self-care Activity Resolve 2019-05-20 Mercedez deficit d 5-15 11:15:00 In[place] 09:00: [id number] 00 Safety fall risk Safety Resolve 2019-07-17 Mercedez factor d 5-15 10:35:00 Ingrahm present 09:00: [id number] 00 Safety risk for Safety Resolve 2019-07-17 Mercedez hospitaliza d 5-15 10:35:00 Ingrahm tion 09:00: [id number] 00 Medication potential Meds Resolve 2019-03-27 Mercedez clinically d 5-15 09:15:00 Ingrahm significant 09:00: [id number] medication 00 issue Integument surgical Integument Resolve 2019-05-20 Mercedez wound d 7-12 11:15:00 Ingra[place] present 10:00: [id number] 00 Nutrition enteral Nutrition Resolve 2019-06-26 Mercedez therapy d 7-12 10:35:00 [place] 10:00: [id number] 00 Respiratory dyspnea Respirator Resolve 2019-08-07 Leanna present y d 06-26 10:25:00 Regeczi 10:35: [id number] 00 Respiratory smoker Respirator Resolve 2019-07-01 Leanna y d 06-26 10:15:00 Regeczi 10:35: [id number] 00 Endo/Han anti-coagul Endo/Han Resolve 2019-07-23 Leanna ation d 06-26 10:15:00 Regeczi therapy 10:35: [id number] 00 Elimination urinary Eliminatio Resolve 2019-07-23 Leanna incontinenc n d 06-26 10:15:00 Regeczi e 10:35: [id number] 00 Elimination nausea/vomi Eliminatio Resolve 2019-07-01 Leanna ting n d 06-26 10:15:00 Regeczi 10:35: [id number] 00 Integument surgical Integument Resolve 2019-07-23 Mercedez wound d 9-11 10:15:00 Ingrahm present 10:15: [id number] 00 Nutrition enteral Nutrition Resolve 2019-07-23 Mercedez therapy d 9 10:15:00 In[place] 10:15: [id number] 00 Respiratory smoker Respirator Resolve 2019-07-16 Leanna y d 07-16 10:05:00 Regeczi 10:05: [id number] 00 Elimination diarrhea Eliminatio Resolve 2019-07-23 Leanna n d 07-17 10:15:00 Regeczi 10:35: [id number] 00 Cardio hypertensio Cardiovasc Resolve 2018-102019-07-30 Leanna eastman d 003 10:00:00 Regeczi 10:15: [id number] 00 Safety risk for Safety Resolve 2018-102019-07-23 Leanna hospitaliza d 0-03 10:15:00 Regeczi tion 10:15: [id number] 00 24 Hr Diet knowledge/s NT: 24Hr Resolve 2018-102019-07-23 Wen kill Diet d 0-03 15:00:00 [place] deficit - 15:00: [id number] pt 00 Nutritional eating NT: Resolve 2018-102019-07-23 Wen Barrier difficultie Barriers d 0-03 15:00:00 [place] s present 15:00: [id number] Safety risk for Safety Resolve 2018-102019-08-07 Roseline hospitaliza d 0-04 10:25:00 [place] tion 14:00: [id number] 00 Social financial MURIEL: Active 2018-10 [facility] Services resource Social 0-04 [place] deficit Services 14:00: [id number] 00 Social support MURIEL: Active 2018-10 [facility] deficit Social 0-04 [place] Services 14:00: [id number] 00 Social knowledge/s MURIEL: Active 2018-10 [facility] kill Social 0-04 [place] deficit - Services 14:00: [id number] pt 00 Social financial MURIEL: Unknown 2018-10 [facility] Services resource Social 0-10 [place] deficit Services 15:00: [id number] 00 Social knowledge/s MURIEL: Unknown 2018-10 [facility] Services kill Social 0-10 In[place] deficit - Services 15:00: [id number] pt 00 Respiratory lung sounds Respirator Resolve 2018-102019-08-07 Leanna deficit y d 0-18 10:25:00 Regeczi 10:25: [id number] 00 Respiratory dyspnea Respirator Resolve 2018-102019-10-23 Mercedez present y d 10-28 10:15:00 Ingra[place] 11:00: [id number] 00 Integument surgical Integument Resolve 2018-102019-09-11 Mercedez wound d 10-28 09:50:00 Ingrahm present 11:00: [id number] 00 Nutrition enteral Nutrition Resolve 2018-102019-09-11 Mercedez therapy d 10-28 09:50:00 In[place] 11:00: [id number] 00 Elimination urinary Eliminatio Resolve 2018-102019-09-11 Mercedez incontinenc n d 10-28 09:50:00 Ingrahm e 11:00: [id number] 00 Safety fall risk Safety Resolve 2018-102019-09-11 Mercedez factor d 10-28 09:50:00 Ingrahm present 11:00: [id number] 00 Safety risk for Safety Resolve 2018-2019-09-23 Mercedez hospitaliza d 10-28 11:10:00 Ingrahm tion 11:00: [id number] 00 Safety risk for Safety Unknown 2018-10 Mercedez hospitaliza 11-24 Ingrahm tion 15:00: [id number] 00 Cardio hypertensio Cardiovasc Active 2020-0 Elanna n ular 10-23 Regeczi 10:15: [id number] 00 Elimination urinary Eliminatio Active 2019-0 Leanna incontinenc n 10-23 Regeczi e 10:15: [id number] 00 Elimination constipatio Eliminatio Active 2019-0 Leanna n n 10-23 Regeczi 10:15: [id number] 00 Integument surgical Integument Active 2019-0 Mercedez wound 10-28 Ingrahm present 10:50: [id number] 00 Nutrition enteral Nutrition Active 2020-0 Mercedez therapy 10-28 Ingrahm 10:50: [id number] 00 Elimination UTI within Eliminatio Active 2019-0 Mercedez past 14 n - Ingrahm days 10:50: [id number] 00 Activity self-care Activity Active 2020-0 Mercedez deficit 10-28 Ingrahm 10:50: [id number] 00 Safety fall risk Safety Active 2020-0 Mercedez factor - Ingrahm present 10:50: [id number] 00 Safety risk for Safety Active 2020-0 Mercedez hospitaliza 10-28 Ingrahm tion 10:50: [id number] 00 Allergies, Adverse Reactions, Alerts Allergy Allergy Status Severity Reaction(s) Onset Inactive Treating Comments Name Type Date Date Clinician latex Base Active Unknown Hives [facility] [id number] amoxicillin Base Active Unknown Anaphylaxis [facility]redient [facility] [id number] bee venom Base Active Unknown Anaphylaxis [facility] protein Ingredient [facility] [id number] Botox Medication Active Unknown Anaphylaxis Mer[facility]ez Name ID 07-07 [facility] [id number] contrast Unknown Active Unknown Anaphylaxis Mercedez dye 07-07 [facility] [id number] Penicillins Allergen Active Unknown Anaphylaxis [facility] Group [facility] [id number] shellfish Base Active Unknown Anaphylaxis Mercedez derived Ingredient 07-07 [facility] [id number] adhesive Base Active Unknown Hives Mercedez tape Ingredient 07-07 [facility] [id number] nsaids Unknown Active Unknown stomach issues Mercedez 07-07 [facility] [id number] oxycodone Base Active Unknown swelling Mercedez Ingredient 07-07 [facility] [id number] Betadine Medication Active Unknown Rash Mercedez Name ID 07-07 [facility] [id number] Hibiclens Medication Active Unknown Rash Mercedez Name ID 07-07 [facility] [id number] evironmenta Unknown Active Unknown hay fever, Rea l/seasonal watery eye, 07-07 Guidelli itching, [id number] sneeze, congestion povidone-io Base Active Unknown itching Rea dine Ingredient 07-07 Guidelli [id number] Iodine and Allergen Active Unknown Anaphylaxis Rea Iodide Group 07-07 [place] Containing [id number] Products albumin Base Active Unknown Anaphylaxis Rea colloid, Ingredient 07-07 Guidelli human [id number] fentanyl Base Active Unknown hallucinations Rea Ingredient 07-07 Guidelli [id number] Medications Ordered Filled Start Stop Current Ordering [...] Unknown Unknown bromide 17 bromide 17 0- 12-05 ,Tashia mcg/actuati mcg/actuati e on HFA on HFA aerosol aerosol inhaler inhaler metoprolol metoprolol 2018-10 Yes Blegen Unknown Unknown tartrate 25 tartrate 25 - Tashia FINCH mg tablet mg tablet e ciprofloxac ciprofloxac 2018-10- Yes Blegen Unknown Unknown in 500 mg in 500 mg 11-18 Tashia FINCH tablet tablet e Spiriva Spiriva 2018-10 Yes Blegen Unknown Unknown Respimat Respimat 2- ,Tashia 2.5 2.5 e mcg/actuati mcg/actuati on [...] Observation Time Observation Value Comments SYSTOLIC mm[Hg] 2019-10-28 18:09:46 206 mm[Hg] mm[Hg] Method: Sit SYSTOLIC mm[Hg] 2018-11-27 18:04:11 142 mm[Hg] mm[Hg] Method: Stand SYSTOLIC mm[Hg] 2019-06-27 18:07:43 122 mm[Hg] mm[Hg] Method: Lie DIASTOLIC mm[Hg] 2019-10-28 18:09:46 123 mm[Hg] mm[Hg] Method: Sit DIASTOLIC mm[Hg] 2018-11-27 18:04:11 84 mm[Hg] mm[Hg] Method: Stand DIASTOLIC mm[Hg] 2019-06-27 18:07:43 50 mm[Hg] mm[Hg] Method: Lie PULSE 2019-10-28 18:09:46 93 /min /min RESP RATE 2019-10-28 18:09:46 16 /min /min TEMP 2019-10-28 18:09:46 98.1 [degF] Procedures This patient has no known procedures. Results This patient has no known results.
--- OUTSIDE RECORDS SUMMARY | 2019-12-19 17:48 | XMS REPORT ---
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 w/o ang pctrs ang pctrs Encounter Encounter Diagnosis Active [facility]ez for for 07-07 [facility] attention attention [id number] to to gastrostomy gastrostomy Gastro-esop Gastro-esop Diagnosis Active Mercedez hageal hageal 07-07 In[place] reflux reflux [id number] disease disease without without esophagitis esophagitis Other Other Diagnosis Active Mercedez specified specified 07-07 In[facility]hm arthritis, arthritis, [id number] unspecified unspecified site site Essential Essential Diagnosis Active [facility]ez (primary) (primary) 07-07 Ingrahm hypertensio hypertensio 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[facility]ez (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) (current) Ingrahm use of use of [id number] anticoagula anticoagula nts nts Nicotine Nicotine Diagnosis Active [facility]ez dependence, dependence, In[place] cigarettes, cigarettes, [id number] uncomplicat uncomplicat ed ed Personal Personal Diagnosis Active [facility]ez history of history of [place] malignant malignant [id number] neoplasm of neoplasm of breast breast Prsnl hx of Prsnl hx of Diagnosis Active Mer[facility]ez TIA (TIA), TIA (TIA), Ingrahm and cereb and cereb [id number] infrc w/o infrc w/o resid resid deficits deficits Pain frequent Pain Mgmt Resolve 2018-11-26 Ana pain d 9 16:15:00 [place] 13:30: [id number] 00 Pain severe pain Pain Mgmt Resolve 2018-11-26 Ana d 9 16:15:00 [place] 13:30: [id number] 00 Endo/Han anti-coagul Endo/Han Resolve 2019-02-06 Ana ation d 07-07 11:15:00 [place] therapy 13:30: [id number] 00 Integument surgical Integument Resolve 2018-08-05 Rea wound d 07-07 13:35:00 [place] present 13:30: [id number] 00 Nutrition nutritional Nutrition Resolve 2019-01-02 Ana restriction d 07-07 10:00:00 [place] s 13:30: [id number] 00 Nutrition changing Nutrition Resolve 2019-01-02 Ana weight/appe d 07-07 10:00:00 [place] tite 13:30: [id number] 00 Nutrition nutritional Nutrition Resolve 2019-01-02 Ana risk d 07-07 10:00:00 [place] 13:30: [id number] 00 Nutrition enteral Nutrition Resolve 2019-02-06 Ana therapy d 07-07 11:15:00 [place] 13:30: [id number] 00 Safety structural Safety Resolve 2019-02-06 Ana barriers d 07-07 11:15:00 [place] present 13:30: [id number] 00 Safety fall risk Safety Resolve 2019-02-06 Ana factor d 07-07 11:15:00 [place] present 13:30: [id number] 00 Safety risk for Safety Resolve 2019-02-06 Ana hospitaliza d 07-07 11:15:00 [place] tion 13:30: [id number] 00 Medication potential Meds Resolve 2019-02-06 Ana clinically d 07-07 11:15:00 [place] significant 13:30: [id number] medication 00 issue Musculoskel requires Musculoske Resolve 2019-02-06 Ana etal human letal d 07-07 11:15:00 [place] assist to 13:30: [id number] leave home 00 IV IV present IV Resolve 2019-02-06 Rea d 9-30 11:15:00 Lissette [id number] Respiratory dyspnea Respirator Resolve 2017-102019-02-06 [place] present y d 0-16 11:15:00 [place] 13:35: [id number] 00 Neuro confusion Neuro/Emot Resolve 2017-102019-02-06 [facility] present ion d 0-16 11:15:00 [place] 13:35: [id number] 00 Neuro depressive Neuro/Emot Resolve 2017-102019-02-06 [facility] feelings ion d 0-16 11:15:00 [place] present 13:35: [id number] 00 Safety can be left Safety Resolve 2017-102019-02-06 [facility] alone for d 0-18 11:15:00 [place] only short 08:10: [id number] periods 00 Integument surgical Integument Resolve 2017-102018-10-30 Shila wound d 1-15 10:10:00 Brian present 08:55: [id number] 00 Elimination GI drain or Eliminatio Resolve 2017-102019-02-06 Shila tube n d 1-15 11:15:00 Brian present 08:55: [id number] 00 Neuro anxiety Neuro/Emot Resolve 2017-102019-02-06 Shila present ion d 1-15 11:15:00 Brian 08:55: [id number] 00 Medication injectable Meds Resolve 2017-102019-02-06 Shila med d 1-15 11:15:00 Brian assistance 08:55: [id number] required 00 Safety fire risk Safety Resolve 2017-102019-02-06 Shila present d 1-15 11:15:00 Brian 13:00: [id number] 00 Elimination urinary Eliminatio Resolve 2019-02-06 [facility]ez incontinenc n d 1- 11:15:00 [place] e 14:20: [id number] 00 Pain frequent Pain Mgmt Resolve 2019-02-06 [facility] pain d 2-15 11:15:00 [place] 10:15: [id number] 00 Safety risk for Safety Unknown Leanna denis 02-06 Re[place] tion 15:45: [id number] 00 Respiratory lung sounds Respirator Resolve 2019-04-03 Leanna deficit y d 4-23 10:01:00 Rege[place]zi 13:20: [id number] 00 Respiratory smoker Respirator Resolve 2019-04-03 Leanna y d 4-29 10:01:00 Regeczi 12:10: [id number] 00 Respiratory dyspnea Respirator Resolve 2019-06-05 [facility]ez present y d 5-15 10:30:00 [place] 09:00: [id number] 00 Integument surgical Integument Resolve 2019-03-27 [facility] wound d 5-15 09:15:00 In[place] present 09:00: [id number] 00 Nutrition enteral Nutrition Resolve 2019-03-27 [facility]ez therapy d 5-15 09:15:00 [place] 09:00: [id number] 00 Elimination urinary Eliminatio Resolve 2019-04-10 Mer[facility] incontinenc n d 5-15 09:30:00 Ingra[place] e 09:00: [id number] 00 Neuro confusion Neuro/Emot Active [facility]ez present ion 5-15 [place] 09:00: [id number] 00 Neuro anxiety Neuro/Emot Active 2018- [facility]ez present ion 5-15 [place] 09:00: [id number] 00 Neuro depressive Neuro/Emot Active 2018- [facility]ez feelings ion 5-15 In[place] present 09:00: [id number] 00 Neuro impaired Neuro/Emot Active 2018- [facility]ez decision-ma ion 5-15 Ingrahm sonali 09:00: [id number] 00 Activity self-care Activity Resolve 2019-05-20 [facility] deficit d 5-15 11:15:00 [place] 09:00: [id number] 00 Safety fall risk Safety Resolve 2019-07-17 Mercedez factor d 5-15 10:35:00 Ingra[place] present 09:00: [id number] 00 Safety risk for Safety Resolve 2019-07-17 Mercedez hospitaliza d 5-15 10:35:00 Ingra[place] tion 09:00: [id number] 00 Medication potential Meds Resolve 2019-03-27 Mercedez clinically d 5-15 09:15:00 Ingrahm significant 09:00: [id number] medication 00 issue Integument surgical Integument Resolve 2019-05-20 Mer[facility]ez wound d 7-12 11:15:00 [place] present 10:00: [id number] 00 Nutrition enteral Nutrition Resolve 2019-06-26 Mercedez therapy d 7-12 10:35:00 [place] 10:00: [id number] 00 Respiratory dyspnea Respirator Resolve 2019-08-07 Leanna present y d 06-26 10:25:00 Regeczi 10:35: [id number] 00 Respiratory smoker Respirator Resolve 2019-07-01 Leanna y d 06-26 10:15:00 Regec[place] 10:35: [id number] 00 Endo/Han anti-coagul Endo/Han Resolve 2019-07-23 Leanna ation d 06-26 10:15:00 Regeczi therapy 10:35: [id number] 00 Elimination urinary Eliminatio Resolve 2019-07-23 Leanna incontinenc n d 06-26 10:15:00 Regeczi e 10:35: [id number] 00 Elimination nausea/vomi Eliminatio Resolve 2019-07-01 Leanna ting n d 06-26 10:15:00 Regeczi 10:35: [id number] 00 Integument surgical Integument Resolve 2019-07-23 [facility] wound d 9-11 10:15:00 [place] present 10:15: [id number] 00 Nutrition enteral Nutrition Resolve 2019-07-23 Mer[facility]ez therapy d 9 10:15:00 [place] 10:15: [id number] 00 Respiratory smoker Respirator Resolve 2019-07-16 Leanna y d 07-16 10:05:00 Regeczi 10:05: [id number] 00 Elimination diarrhea Eliminatio Resolve 2019-07-23 Leanna n d 07-17 10:15:00 Regec[place] 10:35: [id number] 00 Cardio hypertensio Cardiovasc Resolve 2018-102019-07-30 Leanna eastman d 003 10:00:00 Regec[place] 10:15: [id number] 00 Safety risk for Safety Resolve 2018-102019-07-23 Leanna hospitaliza d 0-03 10:15:00 Regeczi tion 10:15: [id number] 00 24 Hr Diet knowledge/s NT: 24Hr Resolve 2018-102019-07-23 Wen kill Diet d 0-03 15:00:00 [place] deficit - 15:00: [id number] pt 00 Nutritional eating NT: Resolve 2018-102019-07-23 Wen Barrier difficultie Barriers d 0-03 15:00:00 [place] s present 15:00: [id number] 00 Safety risk for Safety Resolve 2018-102019-08-07 Roseline hospitaliza d 0-04 10:25:00 [place] tion 14:00: [id number] 00 Social financial MURIEL: Active 2018-10 [facility] resource Social 0-04 [place] deficit Services 14:00: [id number] 00 Social support MURIEL: Active 2018-10 [facility] deficit Social 0-04 [place] Services 14:00: [id number] 00 Social knowledge/s MURIEL: Active 2018-10 [facility] kill Social 0-04 [place] deficit - Services 14:00: [id number] pt 00 Social financial MURIEL: Unknown 2018-10 [facility] Services resource Social 0-10 [place] deficit Services 15:00: [id number] 00 Social knowledge/s MURIEL: Unknown 2018-10 [facility] Services kill Social 0-10 [place] deficit - Services 15:00: [id number] pt 00 Respiratory lung sounds Respirator Resolve 2018-102019-08-07 Leanna deficit y d 0-18 10:25:00 Regeczi 10:25: [id number] 00 Respiratory dyspnea Respirator Resolve 2018-102019-10-23 Mer[facility]ez present y d 10-28 10:15:00 [place] 11:00: [id number] 00 Integument surgical Integument Resolve 2018-102019-09-11 Mer[facility]ez wound d 10-28 09:50:00 Ingra[place] present 11:00: [id number] 00 Nutrition enteral Nutrition Resolve 2018-102019-09-11 Mer[facility]ez therapy d 10-28 09:50:00 [place] 11:00: [id number] 00 Elimination urinary Eliminatio Resolve 2018-102019-09-11 Mer[facility]ez incontinenc n d 10-28 09:50:00 Ingrahm e 11:00: [id number] 00 Safety fall risk Safety Resolve 2018-102019-09-11 Mercedez factor d 10-28 09:50:00 In[place] present 11:00: [id number] 00 Safety risk for Safety Resolve 2018-2019-09-23 Mer[facility]ez hospitaliza d 10-28 11:10:00 Ingra[place] tion 11:00: [id number] 00 Safety risk for Safety Unknown 2018-10 Mercedez hospitaliza 11-24 Ingrahm tion 15:00: [id number] 00 Cardio hypertensio Cardiovasc Active 2020-0 Leanna n ular 10-23 Regeczi 10:15: [id number] 00 Elimination urinary Eliminatio Active 2019-0 Leanna incontinenc n 10-23 Regeczi e 10:15: [id number] 00 Elimination constipatio Eliminatio Active 2019-0 Leanna n n 10-23 Regeczi 10:15: [id number] 00 Integument surgical Integument Active 2019-0 [facility]ez wound 10-28 Ingrahm present 10:50: [id number] 00 Nutrition enteral Nutrition Active 2020-0 Mer[facility]ez therapy 10-28 [place] 10:50: [id number] 00 Elimination UTI within Eliminatio Active 2019-0 Mercedez past 14 n - Ingrahm days 10:50: [id number] 00 Activity self-care Activity Active 2020-0 [facility] deficit 10-28 [place] 10:50: [id number] 00 Safety fall risk Safety Active 2020-0 Mercedez factor - Ingrahm present 10:50: [id number] 00 Safety risk for Safety Active 2020-0 Mercedez hospitaliza 10-28 Ingrahm tion 10:50: [id number] 00 Allergies, Adverse Reactions, Alerts Allergy Allergy Status Severity Reaction(s) Onset Inactive Treating Comments Name Type Date Date Clinician latex Base Active Unknown Hives [id number] amoxicillin Base Active Unknown Anaphylaxis [facility] [id number] bee venom Base Active Unknown Anaphylaxis [facility] [id number] Botox Medication Active Unknown Anaphylaxis Mercedez Name ID 07-07 [facility] [id number] contrast Unknown Active Unknown Anaphylaxis Mer[facility]ez dye 07-07 [facility] [id number] Penicillins Allergen Active Unknown Anaphylaxis [facility] [id number] shellfish Base Active Unknown Anaphylaxis Mer[facility]ez derived Ingredient 07-07 [facility] [id number] adhesive Base Active Unknown Hives Mer[facility]ez tape Ingredient 07-07 [facility] [id number] nsaids Unknown Active Unknown stomach issues Mercedez 07-07 [facility] [id number] oxycodone Base Active Unknown swelling Mercedez Ingredient 07-07 [facility] [id number] Betadine Medication Active Unknown Rash Mercedez Name ID 07-07 [facility] [id number] Hibiclens Medication Active Unknown Rash Mercedez Name ID 07-07 [facility] [id number] evironmenta Unknown Active Unknown hay fever, Rea l/seasonal watery eye, 07-07 Guid[place] itching, [id number] sneeze, congestion povidone-io Base Active Unknown itching Rea dine Ingredient 07-07 [place] [id number] Iodine and Allergen Active Unknown Anaphylaxis Rea Iodide Group 07-07 Guid[place] Containing [id number] Products albumin Base Active Unknown Anaphylaxis Rea colloid, Ingredient 07-07 Guidelli human [id number] fentanyl Base Active Unknown hallucinations Rea Ingredient 07-07 [place] [id number] Medications Ordered Filled Start Stop Current Ordering [...] No Blegen Unknown Unknown saline saline 07-20 Tashai FINCH 1000ml with 1000ml with e 20meq [...]
--- OUTSIDE RECORDS SUMMARY | 2019-12-19 17:48 | XMS REPORT ---
:1955 Author Organization [facility] Care Team Providers Name Role Phone Unavailable Unavailable Unavailable Problems Condition Condition Condition Status Onset Resolution Last Treating Comments Name Details Category Date Date Treatment Clinician Date Achalasia Achalasia Diagnosis Active Mercedez of card[place] of cardia 07-07 Ingrahm [id number] Athscl Athscl Diagnosis Active Mercedez heart heart 07-07 Ingrahm disease of disease of [id number] [place] coronary coronary artery w/o artery w/o ang pctrs ang pctrs Encounter Encounter Diagnosis Active Mercedez for for 07-07 Ingrahm attention attention [id number] to to gastrostomy gastrostomy Gastro-esop Gastro-esop Diagnosis Active Mercedez hageal hageal 07-07 Ingrahm reflux reflux [id number] disease disease without without esophagitis esophagitis Other Other Diagnosis Active Mercedez specified specified 07-07 Ingrahm arthritis, arthritis, [id number] unspecified unspecified site site Essential Essential Diagnosis Active Mercedez (primary) (primary) 07-07 Ingrahm hypertensio hypertensio [id number] 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) Ingrahm use of use of [id number] anticoagula anticoagula nts nts Nicotine Nicotine Diagnosis Active Mercedez dependence, dependence, Ingrahm cigarettes, cigarettes, [id number] uncomplicat uncomplicat ed ed Personal Personal Diagnosis Active Mercedez history of history of Ingrahm malignant malignant [id number] neoplasm of neoplasm of breast breast Prsnl hx of Prsnl hx of Diagnosis Active Mercedez TIA (TIA), TIA (TIA), Ingrahm and cereb and cereb [id number] infrc w/o infrc w/o resid resid deficits deficits Pain frequent Pain Mgmt Resolve 2018-11-26 Ana pain d 9 16:15:00 [place] 13:30: [id number] 00 Pain severe pain Pain Mgmt Resolve 2018-11-26 Ana d 9 16:15:00 [place] 13:30: [id number] 00 Endo/Han anti-coagul Endo/Han Resolve 2019-02-06 Ana ation d 07-07 11:15:00 [place] therapy 13:30: [id number] 00 Integument surgical Integument Resolve 2018-08-05 Rea wound d 07-07 13:35:00 [place] present 13:30: [id number] 00 Nutrition nutritional Nutrition Resolve 2019-01-02 Ana restriction d 07-07 10:00:00 [place] s 13:30: [id number] 00 Nutrition changing Nutrition Resolve 2019-01-02 Ana weight/appe d 07-07 10:00:00 [place] tite 13:30: [id number] 00 Nutrition nutritional Nutrition Resolve 2019-01-02 Ana risk d 07-07 10:00:00 [place] 13:30: [id number] 00 Nutrition enteral Nutrition Resolve 2019-02-06 Ana therapy d 07-07 11:15:00 [place] 13:30: [id number] 00 Safety structural Safety Resolve 2019-02-06 Ana barriers d 07-07 11:15:00 [place] present 13:30: [id number] 00 Safety fall risk Safety Resolve 2019-02-06 Ana factor d 07-07 11:15:00 [place] present 13:30: [id number] 00 Safety risk for Safety Resolve 2019-02-06 Ana hospitaliza d 07-07 11:15:00 [place] tion 13:30: [id number] 00 Medication potential Meds Resolve 2019-02-06 Ana clinically d 07-07 11:15:00 [place] significant 13:30: [id number] medication 00 issue Musculoskel requires Musculoske Resolve 2019-02-06 Ana etal human letal d 07-07 11:15:00 [place] assist to 13:30: [id number] leave home 00 IV IV present IV Resolve 2019-02-06 Rea d 9-30 11:15:00 Lissette [id number] Respiratory dyspnea Respirator Resolve 2017-102019-02-06 Mercedez present y d 0-16 11:15:00 [place] 13:35: [id number] 00 Neuro confusion Neuro/Emot Resolve 2017-102019-02-06 Mercedez present ion d 0-16 11:15:00 [place] 13:35: [id number] 00 Neuro depressive Neuro/Emot Resolve 2017-102019-02-06 Mercedez feelings ion d 0-16 11:15:00 [place] present 13:35: [id number] 00 Safety can be left Safety Resolve 2017-102019-02-06 Mercedez alone for d 0-18 11:15:00 Ingra[place] only short 08:10: [id number] periods 00 Integument surgical Integument Resolve 2017-102018-10-30 Shila wound d 1-15 10:10:00 Brian present 08:55: [id number] 00 Elimination GI drain or Eliminatio Resolve 2017-102019-02-06 Shila tube n d 1-15 11:15:00 Brian present 08:55: [id number] 00 Neuro anxiety Neuro/Emot Resolve 2017-102019-02-06 Shila present ion d 1-15 11:15:00 Brian 08:55: [id number] 00 Medication injectable Meds Resolve 2017-102019-02-06 Shila med d 1-15 11:15:00 Brian assistance 08:55: [id number] required 00 Safety fire risk Safety Resolve 2017-102019-02-06 Shila present d 1-15 11:15:00 Brian 13:00: [id number] 00 Elimination urinary Eliminatio Resolve 2019-02-06 Mercedez incontinenc n d 1- 11:15:00 Ingra[place] e 14:20: [id number] 00 Pain frequent Pain Mgmt Resolve 2019-02-06 Mercedez pain d 2-15 11:15:00 [place] 10:15: [id number] 00 Safety risk for Safety Unknown Leanna denis 02-06 [place] tion 15:45: [id number] 00 Respiratory lung sounds Respirator Resolve 2019-04-03 Leanna deficit y d 4-23 10:01:00 Regeczi 13:20: [id number] 00 Respiratory smoker Respirator Resolve 2019-04-03 Leanna y d 4-29 10:01:00 Regeczi 12:10: [id number] 00 Respiratory dyspnea Respirator Resolve 2019-06-05 Mercedez present y d 5-15 10:30:00 [place] 09:00: [id number] 00 Integument surgical Integument Resolve 2019-03-27 Mercedez wound d 5-15 09:15:00 Ingrahm present 09:00: [id number] 00 Nutrition enteral Nutrition Resolve 2019-03-27 Mercedez therapy d 5-15 09:15:00 [place] 09:00: [id number] 00 Elimination urinary Eliminatio Resolve 2019-04-10 Mercedez incontinenc n d 5-15 09:30:00 Ingrahm e 09:00: [id number] 00 Neuro confusion Neuro/Emot Active Emrcedez present ion 5-15 Ingrahm 09:00: [id number] 00 Neuro anxiety Neuro/Emot Active 2018- Mercedez present ion 5-15 Ingrahm 09:00: [id number] 00 Neuro depressive Neuro/Emot Active 2018- Mercedez feelings ion 5-15 Ingrahm present 09:00: [id number] 00 Neuro impaired Neuro/Emot Active 2018- Mercedez decision-ma ion 5-15 Ingrahm sonali 09:00: [id number] 00 Activity self-care Activity Resolve 2019-05-20 Mer[facility]ez deficit d 5-15 11:15:00 [place] 09:00: [id number] 00 Safety fall risk Safety Resolve 2019-07-17 Mercedez factor d 5-15 10:35:00 Ingrahm present 09:00: [id number] 00 Safety risk for Safety Resolve 2019-07-17 Mercedez hospitaliza d 5-15 10:35:00 Ingrahm tion 09:00: [id number] 00 Medication potential Meds Resolve 2019-03-27 Mercedez clinically d 5-15 09:15:00 Ingrahm significant 09:00: [id number] medication 00 issue Integument surgical Integument Resolve 2019-05-20 Mercedez wound d 7-12 11:15:00 Ingra[place] present 10:00: [id number] 00 Nutrition enteral Nutrition Resolve 2019-06-26 Mercedez therapy d 7-12 10:35:00 In[place] 10:00: [id number] 00 Respiratory dyspnea Respirator Resolve 2019-08-07 Leanna present y d 06-26 10:25:00 Regeczi 10:35: [id number] 00 Respiratory smoker Respirator Resolve 2019-07-01 Leanna y d 06-26 10:15:00 Regeczi 10:35: [id number] 00 Endo/Han anti-coagul Endo/Han Resolve 2019-07-23 Leanna ation d 06-26 10:15:00 Regeczi therapy 10:35: [id number] 00 Elimination urinary Eliminatio Resolve 2019-07-23 Leanna incontinenc n d 06-26 10:15:00 Regeczi e 10:35: [id number] 00 Elimination nausea/vomi Eliminatio Resolve 2019-07-01 Leanna ting n d 06-26 10:15:00 Regeczi 10:35: [id number] 00 Integument surgical Integument Resolve 2019-07-23 Mer[facility]ez wound d 9-11 10:15:00 Ingra[place] present 10:15: [id number] 00 Nutrition enteral Nutrition Resolve 2019-07-23 Mercedez therapy d 9 10:15:00 [place] 10:15: [id number] 00 Respiratory smoker Respirator Resolve 2019-07-16 Leanna y d 07-16 10:05:00 Regeczi 10:05: [id number] 00 Elimination diarrhea Eliminatio Resolve 2019-07-23 Leanna n d 07-17 10:15:00 [place] 10:35: [id number] 00 Cardio hypertensio Cardiovasc Resolve 2018-102019-07-30 Leanna eastman d 003 10:00:00 Regeczi 10:15: [id number] 00 Safety risk for Safety Resolve 2018-102019-07-23 Leanna hospitaliza d 0-03 10:15:00 Regeczi tion 10:15: [id number] 00 24 Hr Diet knowledge/s NT: 24Hr Resolve 2018-102019-07-23 Wen kill Diet d 0-03 15:00:00 [place] deficit - 15:00: [id number] pt 00 Nutritional eating NT: Resolve 2018-102019-07-23 Wen Barrier difficultie Barriers d 0-03 15:00:00 [place] s present 15:00: [id number] Safety risk for Safety Resolve 2018-102019-08-07 Roseline hospitaliza d 0-04 10:25:00 [place] tion 14:00: [id number] 00 Social financial MURIEL: Active 2018-10 [facility] Services resource Social 0-04 [place] deficit Services 14:00: [id number] 00 Social support MURIEL: Active 2018-10 [facility] deficit Social 0-04 [place] Services 14:00: [id number] 00 Social knowledge/s MURIEL: Active 2018-10 [facility] kill Social 0-04 [place] deficit - Services 14:00: [id number] pt 00 Social financial MURIEL: Unknown 2018-10 [facility] Services resource Social 0-10 Ingrahm deficit Services 15:00: [id number] 00 Social knowledge/s MURIEL: Unknown 2018-10 [facility] Services kill Social 0-10 Ingrahm deficit - Services 15:00: [id number] pt 00 Respiratory lung sounds Respirator Resolve 2018-102019-08-07 Leanna deficit y d 0-18 10:25:00 Regeczi 10:25: [id number] 00 Respiratory dyspnea Respirator Resolve 2018-102019-10-23 Mercedez present y d 10-28 10:15:00 [place] 11:00: [id number] 00 Integument surgical Integument Resolve 2018-102019-09-11 Mercedez wound d 10-28 09:50:00 Ingra[place] present 11:00: [id number] 00 Nutrition enteral Nutrition Resolve 2018-102019-09-11 Mercedez therapy d 10-28 09:50:00 [place] 11:00: [id number] 00 Elimination urinary Eliminatio Resolve 2018-102019-09-11 Mercedez incontinenc n d 10-28 09:50:00 Ingrahm e 11:00: [id number] 00 Safety fall risk Safety Resolve 2018-102019-09-11 Mercedez factor d 10-28 09:50:00 Ingra[place] present 11:00: [id number] 00 Safety risk for Safety Resolve 2018-2019-09-23 Mercedez hospitaliza d 10-28 11:10:00 Ingra[place] tion 11:00: [id number] 00 Safety risk for Safety Unknown 2018-10 Mercedez hospitaliza 11-24 Ingrahm tion 15:00: [id number] 00 Cardio hypertensio Cardiovasc Active Leanna n ular 10-23 Regeczi 10:15: [id number] 00 Elimination urinary Eliminatio Active Leanna incontinenc n 10-23 Regeczi e 10:15: [id number] 00 Elimination constipatio Eliminatio Active Leanna n n 10-23 Regeczi 10:15: [id number] 00 Allergies, Adverse Reactions, Alerts Allergy Allergy Status Severity Reaction(s) Onset Inactive Treating Comments Name Type Date Date Clinician latex Base Active Unknown Hives 2017- [facility] Ingredient 07-07 [facility] [id number] amoxicillin Base Active Unknown Anaphylaxis 2017- [facility] Ingredient 07-07 [facility] [id number] bee venom Base Active Unknown Anaphylaxis 2017- [facility] protein Ingredient 07-07 [facility] (honey bee) [id number] Botox Medication Active Unknown Anaphylaxis 2017- Mercedez Name ID 07-07 [facility] [id number] contrast Unknown Active Unknown Anaphylaxis 2017- Mercedez dye 07-07 [facility] [id number] Penicillins Allergen Active Unknown Anaphylaxis 2018- [facility]ez Group 07-07 [facility] [id number] shellfish Base Active Unknown Anaphylaxis 2018-0 Mer[facility]ez derived Ingredient 07-07 [facility] [id number] adhesive Base Active Unknown Hives 2017- [facility] tape Ingredient 07-07 [facility] [id number] nsaids Unknown Active Unknown stomach issues 2017- Mercedez 07-07 [facility] [id number] oxycodone Base Active Unknown swelling 2017- [facility] Ingredient 07-07 [facility] [id number] Betadine Medication Active Unknown Rash 2017- Mer[facility]ez Name ID 07-07 [facility] [id number] Hibiclens Medication Active Unknown Rash Mercedez Name ID 07-07 Janettem [id number] evironmenta Unknown Active Unknown hay fever, Rea l/seasonal watery eye, 07-07 Guidelli itching, [id number] sneeze, congestion povidone-io Base Active Unknown itching Rea dine Ingredient 07-07 Guid[place] [id number] Iodine and Allergen Active Unknown Anaphylaxis Rea Iodide Group 07-07 Guid[place] Containing [id number] Products albumin Base Active Unknown Anaphylaxis Rea colloid, Ingredient 07-07 Guidelli human [id number] fentanyl Base Active Unknown hallucinations Rea Ingredient 07-07 Guidelli [id number] Medications Ordered Filled Start Stop Current Ordering [...] 0.05 % eye 0.05 % eye 1-03 Tashia FINCH drops drops e ketotifen ketotifen Yes Blegen Unknown Unknown 0.025 % 0.025 % 1-03 Tashia FINCH (0.035 %) (0.035 %) e eye drops eye drops Vital Signs Vital Name Observation Time Observation [...]
[2019-12-19 17:52] LABS: Albumin 4.4 g/dL (3.2-5.2); Albumin/Globulin Ratio 1.3 (1-3); BUN/Creatinine Ratio 30.4 (8-20); Calcium 9.1 mg/dL (8.6-10.3); EGFR Non-African American 54.6 (>60); Globulin 3.4 g/dL (2-4); Magnesium 1.5 mg/dL (1.9-2.7); Potassium 3.5 mmol/L (3.5-5.0); Total Bilirubin 0.6 mg/dL (0.2-1.0); Total Protein 7.8 g/dL (6.4-8.9)
[2019-12-19 17:55] LABS: Troponin I 0.01 ng/mL (<0.03)
[2019-12-19 17:57] LABS: CKMB ng/mL 1.9 ng/mL (0.6-6.3)
[2019-12-19] MEDS ORDERED: NS 0.9% 1000 ML** 1,000 ML IV ONE (18:34)
[2019-12-19 18:37] LABS: TSH (Thyroid Stimulating Horm) 1.3 mcIU/mL (0.34-5.60)
[2019-12-19] MEDS ORDERED: Metoclopramide IV* 5 MG/ML 2 ML VIAL IV SLOW PU ONE (18:42)
[2019-12-19] MEDS ORDERED: Magnesium Sulfate 1 GM IV* 1 GM/100 ML BAG IV ONE (18:44)
[2019-12-19] MEDS ORDERED: Nitroglycerin 0.1 mg/Hr PATCH* (2.5 MG) TRANSDERM ONE (18:46)
[2019-12-19] MEDS ORDERED: Fluticasone NASAL SPRAY 50MCG* 16 gm SPRAY BTL BOTH NARES PRN (19:32)
[2019-12-19] MEDS ORDERED: HYDROmorphone TAB* 4 MG PO PRN (19:32)
[2019-12-19] MEDS ORDERED: Nitroglycerin TAB 0.4 MG* 0.4 MG TAB SL PRN (19:32)
[2019-12-19] MEDS ORDERED: Magnesium Sulfate 2 GM IV* 2 GM/50 ML BAG IVPB ONE (19:35)
[2019-12-19] MEDS ORDERED: Ondansetron INJ* 2 MG/ML VIAL IV PRN (19:44)
[2019-12-19] MEDS ORDERED: hydrALAZINE IV* 20 MG/ML VIAL IV SLOW PU PRN (19:53)
[2019-12-19] MEDS ORDERED: Heparin DRIP 25,000 UNITS(*) 25,000 UNITS/500 ML BAG IV SCH (20:15)
[2019-12-19] MEDS ORDERED: Heparin VIAL(*) 5000 UNITS/ML VIAL (FIVE THOUSAND) IV PRN (20:15)
[2019-12-19] MEDS: HYDROmorphone INJ1* 1 MG/ML SYRINGE IV PRN (20:21)
[2019-12-19] MEDS: Morphine TAB Extended Release (*) 30 MG TAB.ER PO SCH (21:54)
[2019-12-19] MEDS: Metoprolol Tartrate TAB* 25 MG PO SCH (21:55)
[2019-12-19] MEDS: Heparin VIAL(*) 5000 UNITS/ML VIAL (FIVE THOUSAND) SUBCUT SCH (21:55)
[2019-12-19] MEDS ORDERED: Heparin VIAL(*) 5000 UNITS/ML VIAL (FIVE THOUSAND) SUBCUT SCH (22:00)
[2019-12-19] MEDS: Carisoprodol TAB* 350 MG PO PRN (22:19)
--- NOTE | 2019-12-19 22:22 | HP ---
CC: Dr. Combs; Dr. Domínguez * HOSPITAL MEDICINE HISTORY AND PHYSICAL: DATE OF ADMISSION: 12/19/19 PRIMARY CARE PHYSICIAN: Dr. Combs. E D TECH: Dr. Domínguez. ATTENDING PHYSICIAN: Dr. Tin Olivera * (dictated provided by Tennille Sierra NP) . CHIEF COMPLAINT: Chest pain. HISTORY OF PRESENT ILLNESS: Ms. Prasad is a 64-year-old female with a past medical history of severe endstage achalasia with GJ tube, DVT, PE, TIA, chronic pain, CAD, SC status post RCA, who presents today to hospital with concern for chest pain. Ms. Prasad states that she has had increased nausea and vomiting over the past week or so. 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 While seated in her chair, she had the sudden onset of severe substernal chest pressure rated as 10/10. She states this is similar to pain that she has had in the past, but this is much more severe than it has ever been before. Nothing seem to make the pain worse or better. She felt short of breath. The pain did not radiate. I will note that Ms. Prasad has been seen and admitted to the hospital multiple times for similar presentation. She did have a transfer to the [facility] where she was found to have a non-Q-wave SC and a cardiac catheterization showing minimal coronary artery disease with plan for medical management. She follows with Dr. Domínguez and was last seen by him in October of 2019, at which time it was noted that she had an echocardiogram with finding of left ventricular outflow obstruction. Dr. Domínguez notes that this was stable, but given her ongoing symptoms, he recommended that she have ischemic workup with a nuclear cardiac stress test outpatient. The patient states that she was scheduled for this last week, but that she was feeling too poorly to be able to do that. In the emergency room, Ms. Prasad had labs, which showed a troponin of 0.01. Her EKG showed concern for ST depressions in II, III, aVF, and V5 and V6. I will note that the patient's EKG has been abnormal with various indicators for ischemia in the past. Most recent EKG from October 2019 shows T-wave inversions in V2 with slight ST elevation at V3. In the EKG before that, the prior day, showed T-wave inversions in III and aVF and V3, so there are lots of variability in her EKGs. I should say the patient states that she is having 9/10 chest pain at the time of my examination and is requesting pain medication. PAST MEDICAL HISTORY: 1. Severe achalasia, status post GJ tube and multiple surgeries. 2. Gastroparesis. 3. History of DVT and PE, reported to be at the time a knee surgery. 4. Coronary artery disease, status post PCI. 5. SC with stent to the RCA. 6. History of cardiac catheterization in January 2019 with finding of minimal coronary artery disease and plan for medical management. 7. Hyperlipidemia. 8. TIA. 9. History of seizure disorder. 10. COPD with long-time smoking. 11. Hypertension. 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 13. GERD. 14. Right breast cancer. PAST SURGICAL HISTORY: 1. PCI x2. 2. Godwin fundoplication. 3. Hiatal hernia surgeries x2. 4. Bilateral mastectomy. 5. Partial hysterectomy. 6. Left knee replacement. 7. Bilateral shoulder surgeries. 8. Esophageal surgeries. 9. Status post appendectomy. 10. Multiple esophageal dilatations, last was April 2019. 11. Right breast lumpectomy and port placement. MEDICATIONS: Outpatient are: 1. Flonase 2 sprays both nares daily. 2. Xyzal 5 mg p.o. q.p.m. p.r.n.. 3. Thiamine 100 mg p.o. daily. 4. Multivitamin and mineral 1 tab p.o. daily. 5. Atrovent 2 puffs inhaled q.6 hours p.r.n. 6. Spironolactone 25 mg p.o. daily. 7. Spiriva 2 inhalations daily. 8. Atorvastatin 40 mg p.o. daily. 9. Albuterol inhaler 2 puffs inhaled q.4 hours p.r.n. 10. Famotidine 20 mg through G-tube daily p.r.n. 11. Epinephrine pen p.r.n. 12. Cyanocobalamin 1000 mcg IM monthly. 13. Clopidogrel 75 mg p.o. q.a.m. 14. Soma 350 mg p.o. 4 times a day p.r.n. 15. Isosorbide mononitrate ER 30 mg p.o. daily. 16. Hydromorphone tablets 8 mg p.o. q.4 hours p.r.n. pain, max dose 12 daily. 17. Folic acid 1 mg p.o. daily. 18. Jevity 1.5, 1185 mL through G-tube daily 19. Lorazepam mg p.o. at bedtime p.r.n.. 20. Allergy eyedrops b.i.d. p.r.n. 21. Metoprolol tartrate 25 mg p.o. b.i.d. 22. Losartan 100 mg p.o. daily. 23. Ondansetron 4 mg p.o. q.8 hours p.r.n. 24. Nitroglycerin 0.4 mg sublingually q.5 minutes p.r.n. chest pain. 25. Nicotine nasal spray 10 mg nasal 4 times a day p.r.n. 26. Morphine sulfate 60 mg p.o. t.i.d. 27. Pantoprazole 40 mg p.o. daily. 28. Amlodipine 10 mg p.o. daily. FAMILY HISTORY: The patient reports her mother and father both had heart issues. Mother in her 80s. Father around 54. SOCIAL HISTORY: The patient is a continued smoker, states she smokes about half a pack a day. No report of alcohol or drug use. She lives alone. States that her daughter is the healthcare proxy. REVIEW OF SYSTEMS: A 14-point review of systems was completed with Ms. Prasad and all those not mentioned above were negative. PHYSICAL EXAMINATION GENERAL: Ms. Prasad is lying in the bed. She is in no acute distress, but complaining of 9/10 pain. VITAL SIGNS: Temperature 98.3, pulse rate 71 respiratory rate 19, O2 saturation 95% on 2 L nasal cannula, blood pressure 170/111. LUNGS: Clear to auscultation bilaterally. No accessory muscle use and good aeration. HEART: S1 and S2. No murmur, rub, or gallop. Regular. ABDOMEN: Soft and nontender with bowel sounds positive x4. NEUROLOGIC: She is alert. She is oriented x3. She moves all extremities equally. There is no facial asymmetry or focal weakness. Extraocular movements are intact. SKIN: Intact. DIAGNOSTIC STUDIES/LABORATORY DATA: Labs show sodium 129, potassium 3.5, chloride 94, serum bicarbonate 20, BUN 31, creatinine 1.02, glucose 125, magnesium 1.5, troponin 0.01. TSH 1.30. D-dimer is pending. INR is 1.02. WBC 11.4, hemoglobin 15.0, hematocrit 45, platelet count 401. The chest x-ray shows no radiographic evidence for acute cardiopulmonary abnormality. ASSESSMENT AND PLAN: Ms. Prasad is a 64-year-old female with a past medical history of severe achalasia with GJ tube, coronary artery disease with myocardial infarction and most recent cath showing minimal coronary artery disease and plan for medical management from January 2019, and frequent admissions to the hospital with concern for nausea, retching, and abdominal and chest pain, who presents today to the hospital again with severe substernal chest pain. Our plans are for inpatient admission with expected length of stay to be greater than 2 days for the followin. Chest pain. The patient dose have risk factors for coronary artery disease and has had an myocardial infarction with stent placement in the past. She also has a complicated history of severe endstage achalasia, which has contributed to severe pain for her with similar presentation. Her first troponin is negative. Plan to repeat troponins x2 with EKGs. It is reassuring that though she is still having pain now that her troponin was negative. It is also reassuring that she had a negative cardiac cath in January. She was seen by Dr. Domínguez in October with plans for ischemic workup outpatient. Plan to complete that on Saturday with a chemical nuclear stress test. She is on Plavix. We will add aspirin in a short term while she is being evaluated. She is already on atorvastatin and metoprolol as well. She is on isosorbide, which we will continue. It may be that her pain is related to her achalasia. Her last consultation was here with Dr. Ovalles in February, but she does follow routinely with providers at the [facility] and she had been told that the only thing left to do for her is to remove her esophagus, which she is reasonably unwilling to do. She states she is able to tolerate food, but is having retching. If she has continued pain and her cardiac workup is negative, we will need to consider GI consultation as well. They have not been called tonight. The patient does also have a history of deep vein thrombosis and pulmonary embolism, but this seems to have been related to a knee surgery. The patient has had multiple negative V/Q scans in the past, but none recently. We will check D- dimer now and determine whether or not there is any indication for V/Q scan during this hospitalization. Continue Plavix. 2. Uncontrolled hypertension. I suspect this is due to her severe pain. We will add pain medications and she will have hydralazine available for systolic blood pressure greater than 185. Also, continue the patient's home medications of amlodipine, isosorbide, losartan, metoprolol, spironolactone. 3. History of severe achalasia. We will continue with her tube feeding and she can have heart-healthy diet with no caffeine and she is interested in taking some food orally. Again, pain medications p.r.n. 4. Hyponatremia. The patient's sodium is slightly low. Overall, her basic metabolic panel suggest that she is slightly dehydrated, perhaps related to poor oral intake and retching. Plan to have normal saline at 75 mL per hour overnight. She has had a bolus in the emergency department. We will recheck all her labs in the morning. 5. Hypomagnesemia. Plan to replete. 6. DVT prophylaxis: With heparin subcu. 7. Code status: Full code. This was reviewed with the patient at bedside. TIME SPENT: Approximately 60 minutes was spent on the admission of this patient , more than half time spent with the patient at the bedside reviewing the events leading up to this hospitalization, performing the physical examination, and reviewing my plan of care. TENNILLE SIERRA NP [id number]/[facility] #: [id number] [place]
[2019-12-19] MEDS ORDERED: Morphine INJ* 2 MG/ML 1 ML SYRINGE (TWO MG - NEW SYRINGE VERSION) IV ONE (22:35)
[2019-12-19 23:34] LABS: Troponin I 0.03 ng/mL (<0.03)
[2019-12-19] MEDS ORDERED: Lorazepam PYXIS KEY PRN (23:42)
[2019-12-19] MEDS ORDERED: LORazepam INJ* 2 MG/ML 1 ML VIAL IV PUSH ONE (23:42)
[2019-12-20] MEDS: NS 0.9% 1000 ML** 1,000 ML IV SCH ×2 (00:34→14:34)
[2019-12-20] MEDS: HYDROmorphone TAB* 4 MG PO PRN ×3 (05:07→16:24)
[2019-12-20] MEDS: Heparin VIAL(*) 5000 UNITS/ML VIAL (FIVE THOUSAND) SUBCUT SCH (05:38)
[2019-12-20 06:04] LABS: ABS Monocytes 0.9 10^3/ul (0-0.8); ABS Neutrophils 5.4 10^3/ul (1.5-7.7); Eosinophil % 0.5 %; Hematocrit 34 % (35-47); Hemoglobin 11.8 g/dL (12.0-16.0); Mean Corpuscular HGB Conc 35 g/dL (31-36); Mean Corpuscular Hemoglobin 29 pg (27-31); Mean Corpuscular Volume 82 fL (80-97); Mean Platelet Volume 7.4 fL (7.4-10.4); Platelet Count 297 10^3/uL (150-450); Red Blood Count 4.11 10^6 /uL (3.70-4.87); Red Cell Distribution Width 16 % (10-15); White Blood Count 8.5 10^3/uL (3.5-10.8)
[2019-12-20 06:31] LABS: BUN/Creatinine Ratio 34.4 (8-20); Calcium 7.7 mg/dL (8.6-10.3); EGFR African American 73.4 (>60); EGFR Non-African American 60.7 (>60); Potassium 3.1 mmol/L (3.5-5.0)
[2019-12-20] MEDS: Enoxaparin(*) 40 MG/0.4 ML SYR SUBCUT SCH (08:11)
[2019-12-20] MEDS: KCL 20 MEQ/100 ML IVPREMIX* 20 MEQ/100 ML BAG IV SCH ×2 (08:11→10:17)
[2019-12-20] MEDS: Morphine TAB Extended Release (*) 30 MG TAB.ER PO SCH ×3 (08:12→21:20)
[2019-12-20] MEDS: Multivitamins/Minerals TAB PO SCH (08:12)
[2019-12-20] MEDS: Pantoprazole TAB * 40 MG TAB PO SCH (08:12)
[2019-12-20] MEDS: Spironolactone TAB* 25 MG PO SCH (08:12)
[2019-12-20] MEDS: Atorvastatin* 40 MG TAB PO SCH (08:12)
[2019-12-20] MEDS: Clopidogrel TAB* 75 MG PO SCH (08:12)
[2019-12-20] MEDS: Isosorbide Mononitrate ER TAB* 30 MG PO SCH (08:12)
[2019-12-20] MEDS: Folic Acid TAB* 1 MG PO SCH (08:12)
[2019-12-20] MEDS: Metoprolol Tartrate TAB* 25 MG PO SCH ×2 (08:12→21:21)
[2019-12-20] MEDS: Aspirin 81 mg CHEW TAB* 81 MG TAB.CHEW PO SCH (08:12)
[2019-12-20] MEDS: Losartan TAB* 25 MG PO SCH (08:12)
[2019-12-20] MEDS: amLODIPine TAB* 5 MG PO SCH (08:12)
[2019-12-20] MEDS: HYDROmorphone INJ1* 1 MG/ML SYRINGE IV PRN ×4 (08:18→23:08)
[2019-12-20 08:47] LABS: Magnesium 2.5 mg/dL (1.9-2.7)
[2019-12-20] MEDS: Carisoprodol TAB* 350 MG PO PRN ×4 (09:24→21:19)
[2019-12-20] MEDS ORDERED: Morphine INJ* 4 MG/ML 1 ML SYRINGE (NEW SYRINGE VERSION) IV ONE (11:19)
[2019-12-20] MEDS: LORazepam TAB(*) 0.5 MG PO PRN ×2 (11:39→23:08)
[2019-12-20] MEDS ORDERED: Albuterol 2.5 MG/3 ML NEB.SOL* (0.083%) INH PRN (12:25)
[2019-12-20] MEDS: SPIRIVA Respimat* (tiotropium) 2.5 mcg/inh Inhaler INH SCH (12:34)
--- NOTE | 2019-12-20 15:03 | PN ---
Subjective Date of Service: 12/20/19 Interval History: Patient states that her abdominal pain has significantly decreased overnight, but her CP is still occasionally unbearable. Pain decreased with pain medication , but otherwise unaffected by movement, palpation, or eating. Retching makes it much worse. Family History: Unchanged from Admission Social History: Unchanged from Admission Past Medical History: Unchanged from Admission Objective Active Medications: Albuterol (Ventolin Hfa Inhaler*) 2 puff INH Q4H PRN PRN Reason: SHORTNESS OF BREATH Albuterol (Ventolin 2.5 Mg/3 Ml Neb.Cely*) 2.5 mg INH Q4H PRN PRN Reason: SOB/WHEEZING Amlodipine Besylate (Norvasc Tab*) 10 mg PO DAILY [facility] Last Admin: 12/20/19 08:12 Dose: 10 mg Aspirin (Aspirin 81 Mg Chew Tab*) 81 mg PO DAILY [facility] Last Admin: 12/20/19 08:12 Dose: 81 mg Atorvastatin Calcium (Lipitor*) 40 mg PO DAILY [facility] Last Admin: 12/20/19 08:12 Dose: 40 mg Carisoprodol (Soma Tab*) 350 mg PO QID PRN PRN Reason: SPASMS - MUSCLE Last Admin: 12/20/19 14:34 Dose: 350 mg Clopidogrel Bisulfate (Plavix Tab*) 75 mg PO QAM [facility] Last Admin: 12/20/19 08:12 Dose: 75 mg Cyanocobalamin (Vitamin B12 Inj *) 1,000 mcg IM MONTHLY [facility] Enoxaparin Sodium (Lovenox(*)) 40 mg SUBCUT Q24H [facility] Last Admin: 12/20/19 08:11 Dose: 40 mg Fluticasone Propionate (Flonase Nasal [place] 50mcg*) 2 spray BOTH NARES DAILY PRN PRN Reason: Allergy Symptoms Folic Acid (Folvite Tab*) 1 mg PO DAILY [facility] Last Admin: 12/20/19 08:12 Dose: 1 mg Hydralazine HCl (Apresoline Iv*) 5 mg IV SLOW PU Q6H PRN PRN Reason: SBP > 185 Hydromorphone HCl (Dilaudid Inj1s*) 1 mg IV Q4H PRN PRN Reason: pain-severe Last Admin: 12/20/19 13:13 Dose: 1 mg Hydromorphone HCl (Dilaudid Tab*) 8 mg PO Q4H PRN PRN Reason: Pain-moderate Last Admin: 12/20/19 10:19 Dose: 8 mg Sodium Chloride (Ns 0.9% 1000 Ml) 1,000 mls @ 75 mls/hr IV PER RATE [facility] Last Admin: 12/20/19 14:34 Dose: 75 mls/hr Isosorbide Mononitrate (Imdur Er Tab*) 30 mg PO DAILY [facility] Last Admin: 12/20/19 08:12 Dose: 30 mg Lorazepam (Ativan Tab(*)) 0.5 mg PO BEDTIME PRN PRN Reason: ANXIETY Last Admin: 12/20/19 11:39 Dose: 0.5 mg Losartan Potassium (Cozaar Tab*) 100 mg PO DAILY [facility] Last Admin: 12/20/19 08:12 Dose: 100 mg Metoprolol Tartrate (Lopressor Tab*) 25 mg PO BID [facility] Last Admin: 12/20/19 08:12 Dose: 25 mg Miscellaneous (Ativan Pyxis Guerra) 1 ea N/A .ATIVAN IV GUERRA PRN PRN Reason: PYXIS GUERRA Morphine Sulfate (Ms Contin(*)) 60 mg PO TID [facility] Last Admin: 12/20/19 13:11 Dose: 60 mg Multivitamins/Minerals (Theragran/Minerals Tab*) 1 tab PO DAILY [facility] Last Admin: 12/20/19 08:12 Dose: 1 tab Nitroglycerin (Nitroglycerin Tab 0.4 Mg*) 0.4 mg SL Q5M PRN PRN Reason: chest pain Ondansetron HCl (Zofran Odt Tab*) 4 mg PO Q8HR PRN PRN Reason: NAUSEA/VOMITING Ondansetron HCl (Zofran Inj*) 4 mg IV Q6H PRN PRN Reason: NAUSEA Last Admin: 12/20/19 08:07 Dose: 4 mg Pantoprazole Sodium (Protonix Tab*) 40 mg PO DAILY [facility] Last Admin: 12/20/19 08:12 Dose: 40 mg Prochlorperazine Edisylate (Compazine Inj*) 5 mg IV Q6H PRN PRN Reason: NAUSEA/VOMITING Spironolactone (Aldactone Tab*) 25 mg PO DAILY [facility] Last Admin: 12/20/19 08:12 Dose: 25 mg Tiotropium [place] (Spiriva Respimat 2.5 Mcg) 2 puff INH DAILY [facility] Last Admin: 12/20/19 12:34 Dose: Not Given Vital Signs - 8 hr 12/20/19 12/20/19 12/20/19 07:15 08:00 08:12 Temperature 97.7 F Pulse Rate 62 Respiratory 16 16 16 Rate Blood Pressure 139/88 (mmHg) O2 Sat by Pulse 96 Oximetry 12/20/19 12/20/19 12/20/19 08:18 09:24 10:19 Temperature Pulse Rate Respiratory 16 16 16 Rate Blood Pressure (mmHg) O2 Sat by Pulse Oximetry 12/20/19 12/20/19 12/20/19 11:15 11:27 11:39 Temperature 98.3 F Pulse Rate 60 Respiratory 16 16 16 Rate Blood Pressure 82/48 (mmHg) O2 Sat by Pulse 94 Oximetry 12/20/19 12/20/19 12/20/19 12:24 13:11 13:13 Temperature Pulse Rate Respiratory 16 16 16 Rate Blood Pressure (mmHg) O2 Sat by Pulse Oximetry 12/20/19 12/20/19 12/20/19 14:07 14:34 14:40 Temperature 98.3 F Pulse Rate 60 Respiratory 16 16 16 Rate Blood Pressure 110/54 (mmHg) O2 Sat by Pulse 94 Oximetry Oxygen Devices in Use Now: None Appearance: Patient is a 64yo female who appears older than stated age and is sitting in the bed in NAD. Eyes: No Scleral Icterus, PERRLA Ears/Nose/Mouth/Throat: NL Teeth, Lips, Gums, Clear Oropharnyx, Mucous Membranes Moist Neck: NL Appearance and Movements; NL JVP, Trachea Midline Respiratory: Symmetrical Chest Expansion and Respiratory Effort, Clear to Auscultation Cardiovascular: NL Sounds; No Murmurs; No JVD, RRR, No Edema Abdominal: NL Sounds; No Tenderness; No Distention, No Hepatosplenomegaly, - - PEG Tube in Place. Lymphatic: No Cervical Adenopathy Extremities: No Edema, No Clubbing, Cyanosis Skin: No Rash or Ulcers, No Nodules or Sclerosis Neurological: Alert and Oriented x 3, NL Sensation, NL Muscle Strength and Tone , - - CN II-XII intact. Result Diagrams: 12/21/19 07:07 12/21/19 07:07 Assess/Plan/Problems-Billing Assessment: Patient is a 64yo female with a PMH for CAD, Achalasia, PE, here with Chest pain which is severe. Admitted for pain control and ischemic workup given significant cardiac history. - Patient Problems (1) Chest pain Current Visit: No Status: Acute Onset Date: 07/04/14 Code(s): R07.9 - CHEST PAIN, UNSPECIFIED SNOMED Code(s): 57072792 Comment: - Associated with abdominal pain and nausea as well - Variable EKG findings, no abvious ischemic changes - Most likely 2/2 achalasia - Was scheduled for stress test outpatient as recently has NSTEMI - Stress test low risk. - With history PE, Elevated trop, Elevated D-Dimer with no other obvious cause, BNP above baseline, will order V/Q scan to assess for PE. (2) Chronic pain Current Visit: No Status: Acute Code(s): G89.29 - OTHER CHRONIC PAIN SNOMED Code(s): 64708634 Comment: - Pt in significant acute on chronic pain at this time. - Increase extended release morphine to 60mg TID prn which is her home dose, - Continue PRN dilaudid dose. - Continue soma PRN. - Follow up pain clinic outpatient. (3) Electrolyte abnormality Current Visit: No Status: Acute Code(s): E87.8 - OTH DISORDERS OF ELECTROLYTE AND FLUID BALANCE, NEC SNOMED Code(s): 131651241 Comment: - Hyponatremia, Hypokalemia, and Hypomagnesemia - Replace PRN - Due to Poor oral intake (4) Elevated troponin Current Visit: No Status: Acute Code(s): R74.8 - ABNORMAL LEVELS OF OTHER SERUM ENZYMES SNOMED Code(s): 110944555 Comment: - Troponin elevation, no new EKG changes, Worsened chest pain - Stress test normal, Order V/Q scan as above. (5) Hx of deep venous thrombosis Current Visit: No Status: Acute Code(s): Z86.718 - PERSONAL HISTORY OF OTHER VENOUS THROMBOSIS AND EMBOLISM SNOMED Code(s): 680688876 Comment: - Not on anticoagulation outpatient. - V/Q scan pending. (6) Hypertensive urgency Current Visit: No Status: Acute Code(s): I16.0 - HYPERTENSIVE URGENCY SNOMED Code(s): 026420432 Comment: - BP in ED wa 200s/110s - Likely related to severe pain - Improving - Continue metoprolol tartrate to 25mg BID - Continue spironolactone, Losartan, Imdur (7) Intractable nausea and vomiting Current Visit: No Status: Acute Code(s): R11.2 - NAUSEA WITH VOMITING, UNSPECIFIED SNOMED Code(s): 832561830 Comment: - Strong provoker of chest pain - Aggressive anti-emetics. (8) Achalasia Current Visit: No Status: Chronic Priority: High Code(s): K22.0 - ACHALASIA OF CARDIA SNOMED Code(s): 17349486 Comment: - Continue pain control and tube feeds. - Aggressive anti-emetics - Pleasure feeds PRN. (9) Barretts esophagus Current Visit: No Status: Chronic Code(s): K22.70 - PARIS'S ESOPHAGUS WITHOUT DYSPLASIA SNOMED Code(s): 301845899 Comment: - Outpatient GI surveilence. (10) CAD (coronary artery disease) Current Visit: No Status: Chronic Code(s): I25.10 - ATHSCL HEART DISEASE OF [place] CORONARY ARTERY W/O ANG PCTRS SNOMED Code(s): 37663328 Comment: - Continue DAPT, Metoprolol and Lipitor - Stress test low risk (11) HLD (hyperlipidemia) Current Visit: No Status: Chronic Code(s): E78.5 - HYPERLIPIDEMIA, UNSPECIFIED SNOMED Code(s): 57387987 Comment: - Continue atorvastatin. (12) Anemia Current Visit: Yes Status: Acute Code(s): D64.9 - ANEMIA, UNSPECIFIED SNOMED Code(s): 518831539 Comment: - Worsening anemia unclear cause, no signs of GI Bleeding - Possibly dilutional, likely concentrated serum on admission - Baseline anemia likely due to AOCD. (13) DVT prophylaxis Current Visit: No Status: Acute Priority: Low Onset Date: 01/19/15 Code( s): LAU0439 - SNOMED Code(s): 370707507 Comment: - SCDs and Lovenox SQ (14) Full code status Current Visit: No Status: Acute Onset Date: 01/19/15 Code(s): Z78.9 - OTHER SPECIFIED HEALTH STATUS SNOMED Code(s): 569643051 Comment: Status and Disposition: Observation for chest pain and stress test.
[2019-12-20] MEDS: Albuterol HFA INHALER* 8 gm MDI INH PRN (16:37)
[2019-12-20] MEDS: PROCHLORPERAZINE INJ 5 MG/ML 2 ML VIAL IV PRN (18:21)
[2019-12-21] MEDS: HYDROmorphone TAB* 4 MG PO PRN ×4 (01:47→22:04)
[2019-12-21] MEDS: Carisoprodol TAB* 350 MG PO PRN ×3 (03:06→20:13)
[2019-12-21] MEDS: NS 0.9% 1000 ML** 1,000 ML IV SCH (04:15)
[2019-12-21] MEDS: HYDROmorphone INJ1* 1 MG/ML SYRINGE IV PRN ×4 (04:19→20:12)
[2019-12-21] MEDS: SPIRIVA Respimat* (tiotropium) 2.5 mcg/inh Inhaler INH SCH (08:18)
[2019-12-21] MEDS: Enoxaparin(*) 40 MG/0.4 ML SYR SUBCUT SCH (08:41)
[2019-12-21] MEDS: Metoprolol Tartrate TAB* 25 MG PO SCH ×2 (08:43→22:05)
[2019-12-21] MEDS: Morphine TAB Extended Release (*) 30 MG TAB.ER PO SCH ×3 (08:44→22:05)
[2019-12-21] MEDS: Multivitamins/Minerals TAB PO SCH (08:45)
[2019-12-21] MEDS: Pantoprazole TAB * 40 MG TAB PO SCH (08:45)
[2019-12-21] MEDS: amLODIPine TAB* 5 MG PO SCH (08:45)
[2019-12-21] MEDS: Isosorbide Mononitrate ER TAB* 30 MG PO SCH (08:45)
[2019-12-21] MEDS: Folic Acid TAB* 1 MG PO SCH (08:45)
[2019-12-21] MEDS: Losartan TAB* 25 MG PO SCH (08:45)
[2019-12-21] MEDS: Atorvastatin* 40 MG TAB PO SCH (08:45)
[2019-12-21] MEDS: Spironolactone TAB* 25 MG PO SCH (08:45)
[2019-12-21] MEDS: Clopidogrel TAB* 75 MG PO SCH (08:45)
[2019-12-21] MEDS: Aspirin 81 mg CHEW TAB* 81 MG TAB.CHEW PO SCH (08:46)
[2019-12-21 08:49] LABS: ABS Basophils 0.1 10^3/ul (0-0.2); ABS Eosinophils 0.2 10^3/ul (0-0.6); ABS Lymphocytes 2.1 10^3/ul (1.0-4.8); ABS Monocytes 0.7 10^3/ul (0-0.8); ABS Neutrophils 6.3 10^3/ul (1.5-7.7); Eosinophil % 1.8 %; Hematocrit 29 % (35-47); Hemoglobin 9.8 g/dL (12.0-16.0); Lymphocyte % 22.3 %; Mean Corpuscular HGB Conc 34 g/dL (31-36); Mean Corpuscular Hemoglobin 28 pg (27-31); Mean Corpuscular Volume 83 fL (80-97); Mean Platelet Volume 7.6 fL (7.4-10.4); Platelet Count 222 10^3/uL (150-450); Red Blood Count 3.49 10^6 /uL (3.70-4.87); Red Cell Distribution Width 16 % (10-15); White Blood Count 9.3 10^3/uL (3.5-10.8)
[2019-12-21 08:58] LABS: BUN/Creatinine Ratio 28.2 (8-20); Calcium 7.4 mg/dL (8.6-10.3); EGFR Non-African American 74.4 (>60); Magnesium 2.1 mg/dL (1.9-2.7); Potassium 3.7 mmol/L (3.5-5.0)
[2019-12-21] MEDS ORDERED: Regadenoson* 0.4 MG/5 ML SYRINGE ONE (10:25)
[2019-12-21] MEDS ORDERED: Ondansetron INJ* 2 MG/ML VIAL ONE (10:25)
--- NOTE | 2019-12-21 13:36 | PN ---
Subjective Date of Service: 12/21/19 Interval History: Patient still has severe pain, with SOB on exertion. Patient states this is unimproved from yesterday. Patient follows with the pain clinic. Patient denies dizziness, somnolence, palpitations, N/V, abdominal pain, LE swelling, or other pain. Family History: Unchanged from Admission Social History: Unchanged from Admission Past Medical History: Unchanged from Admission Objective Active Medications: Albuterol (Ventolin Hfa Inhaler*) 2 puff INH Q4H PRN PRN Reason: SHORTNESS OF BREATH Last Admin: 12/20/19 16:37 Dose: 2 puff Albuterol (Ventolin 2.5 Mg/3 Ml Neb.Cely*) 2.5 mg INH Q4H PRN PRN Reason: SOB/WHEEZING Last Admin: 12/20/19 19:11 Dose: 2.5 mg Amlodipine Besylate (Norvasc Tab*) 10 mg PO DAILY [facility] Last Admin: 12/21/19 08:45 Dose: 10 mg Aspirin (Aspirin 81 Mg Chew Tab*) 81 mg PO DAILY [facility] Last Admin: 12/21/19 08:46 Dose: 81 mg Atorvastatin Calcium (Lipitor*) 40 mg PO DAILY [facility] Last Admin: 12/21/19 08:45 Dose: 40 mg Carisoprodol (Soma Tab*) 350 mg PO QID PRN PRN Reason: SPASMS - MUSCLE Last Admin: 12/21/19 11:25 Dose: 350 mg Clopidogrel Bisulfate (Plavix Tab*) 75 mg PO QAM [facility] Last Admin: 12/21/19 08:45 Dose: 75 mg Cyanocobalamin (Vitamin B12 Inj *) 1,000 mcg IM MONTHLY [facility] Enoxaparin Sodium (Lovenox(*)) 40 mg SUBCUT Q24H [facility] Last Admin: 12/21/19 08:41 Dose: 40 mg Fluticasone Propionate (Flonase Nasal [place] 50mcg*) 2 spray BOTH NARES DAILY PRN PRN Reason: Allergy Symptoms Folic Acid (Folvite Tab*) 1 mg PO DAILY [facility] Last Admin: 12/21/19 08:45 Dose: 1 mg Hydromorphone HCl (Dilaudid Inj1s*) 1 mg IV Q4H PRN PRN Reason: pain-severe Last Admin: 12/21/19 08:57 Dose: 1 mg Hydromorphone HCl (Dilaudid Tab*) 8 mg PO Q4H PRN PRN Reason: Pain-moderate Last Admin: 12/21/19 06:16 Dose: 8 mg Isosorbide Mononitrate (Imdur Er Tab*) 30 mg PO DAILY [facility] Last Admin: 12/21/19 08:45 Dose: 30 mg Lorazepam (Ativan Tab(*)) 0.5 mg PO BEDTIME PRN PRN Reason: ANXIETY Last Admin: 12/20/19 23:08 Dose: 0.5 mg Losartan Potassium (Cozaar Tab*) 100 mg PO DAILY [facility] Last Admin: 12/21/19 08:45 Dose: 100 mg Metoprolol Tartrate (Lopressor Tab*) 25 mg PO BID [facility] Last Admin: 12/21/19 08:43 Dose: 25 mg Miscellaneous (Ativan Pyxis Guerra) 1 ea N/A .ATIVAN IV GUERRA PRN PRN Reason: PYXIS GUERRA Morphine Sulfate (Ms Contin(*)) 60 mg PO TID [facility] Last Admin: 12/21/19 08:44 Dose: 60 mg Multivitamins/Minerals (Theragran/Minerals Tab*) 1 tab PO DAILY [facility] Last Admin: 12/21/19 08:45 Dose: 1 tab Nitroglycerin (Nitroglycerin Tab 0.4 Mg*) 0.4 mg SL Q5M PRN PRN Reason: chest pain Ondansetron HCl (Zofran Odt Tab*) 4 mg PO Q8HR PRN PRN Reason: NAUSEA/VOMITING Ondansetron HCl (Zofran Inj*) 4 mg IV Q6H PRN PRN Reason: NAUSEA Last Admin: 12/20/19 08:07 Dose: 4 mg Pantoprazole Sodium (Protonix Tab*) 40 mg PO DAILY [facility] Last Admin: 12/21/19 08:45 Dose: 40 mg Prochlorperazine Edisylate (Compazine Inj*) 5 mg IV Q6H PRN PRN Reason: NAUSEA/VOMITING Last Admin: 12/20/19 18:21 Dose: 5 mg Spironolactone (Aldactone Tab*) 25 mg PO DAILY [facility] Last Admin: 12/21/19 08:45 Dose: 25 mg Tiotropium [place] (Spiriva Respimat 2.5 Mcg) 2 puff INH DAILY [facility] Last Admin: 12/21/19 08:18 Dose: 2 puff Vital Signs - 8 hr 12/21/19 12/21/19 12/21/19 06:16 07:15 08:00 Temperature 97.6 F Pulse Rate 57 Respiratory 16 16 20 Rate Blood Pressure 118/62 (mmHg) O2 Sat by Pulse 96 Oximetry 12/21/19 12/21/19 12/21/19 08:19 08:44 08:46 Temperature Pulse Rate 53 Respiratory 16 16 20 Rate Blood Pressure (mmHg) O2 Sat by Pulse 95 Oximetry 12/21/19 12/21/19 12/21/19 08:57 11:15 11:25 Temperature 97.8 F Pulse Rate 57 Respiratory 20 14 20 Rate Blood Pressure 124/66 (mmHg) O2 Sat by Pulse 95 Oximetry Oxygen Devices in Use Now: None Appearance: Patient is a 64yo female who appears older than stated age and is sitting in the bed in NAD. Eyes: No Scleral Icterus, PERRLA Ears/Nose/Mouth/Throat: NL Teeth, Lips, Gums, Clear Oropharnyx, Mucous Membranes Moist Neck: NL Appearance and Movements; NL JVP, Trachea Midline Respiratory: Symmetrical Chest Expansion and Respiratory Effort, Clear to Auscultation Cardiovascular: NL Sounds; No Murmurs; No JVD, RRR, No Edema Abdominal: No Hepatosplenomegaly, - - Normal Sounds, Tender to palpation throughout. Lymphatic: No Cervical Adenopathy Extremities: No Edema, No Clubbing, Cyanosis Skin: No Rash or Ulcers, No Nodules or Sclerosis Neurological: Alert and Oriented x 3, NL Sensation, NL Muscle Strength and Tone , - - CN II-XII intact. Result Diagrams: 12/21/19 07:07 12/21/19 07:07 Assess/Plan/Problems-Billing Assessment: Patient is a 64yo female with a PMH for CAD, Achalasia, PE, here with Chest pain which is severe. Admitted for pain control and ischemic workup given significant cardiac history. - Patient Problems (1) Chest pain Current Visit: No Status: Acute Onset Date: 07/04/14 Code(s): R07.9 - CHEST PAIN, UNSPECIFIED SNOMED Code(s): 58863198 Comment: - Associated with abdominal pain and nausea as well - Variable EKG findings, no abvious ischemic changes - Most likely 2/2 achalasia - Was scheduled for stress test outpatient as recently has NSTEMI - Stress test low risk. - With history PE, Elevated trop, Elevated D-Dimer with no other obvious cause, BNP above baseline, will order V/Q scan to assess for PE. (2) Chronic pain Current Visit: No Status: Acute Code(s): G89.29 - OTHER CHRONIC PAIN SNOMED Code(s): 08198707 Comment: - Pt in significant acute on chronic pain at this time. - Increase extended release morphine to 60mg TID prn which is her home dose, - Continue PRN dilaudid dose. - Continue soma PRN. - Follow up pain clinic outpatient. (3) Electrolyte abnormality Current Visit: No Status: Acute Code(s): E87.8 - OTH DISORDERS OF ELECTROLYTE AND FLUID BALANCE, NEC SNOMED Code(s): 673830367 Comment: - Hyponatremia, Hypokalemia, and Hypomagnesemia - Replace PRN - Due to Poor oral intake (4) Elevated troponin Current Visit: No Status: Acute Code(s): R74.8 - ABNORMAL LEVELS OF OTHER SERUM ENZYMES SNOMED Code(s): 867521771 Comment: - Troponin elevation, no new EKG changes, Worsened chest pain - Stress test normal, Order V/Q scan as above. (5) Hx of deep venous thrombosis Current Visit: No Status: Acute Code(s): Z86.718 - PERSONAL HISTORY OF OTHER VENOUS THROMBOSIS AND EMBOLISM SNOMED Code(s): 933031100 Comment: - Not on anticoagulation outpatient. - V/Q scan pending. (6) Hypertensive urgency Current Visit: No Status: Acute Code(s): I16.0 - HYPERTENSIVE URGENCY SNOMED Code(s): 732839358 Comment: - BP in ED wa 200s/110s - Likely related to severe pain - Improving - Continue metoprolol tartrate to 25mg BID - Continue spironolactone, Losartan, Imdur (7) Intractable nausea and vomiting Current Visit: No Status: Acute Code(s): R11.2 - NAUSEA WITH VOMITING, UNSPECIFIED SNOMED Code(s): 858215096 Comment: - Strong provoker of chest pain - Aggressive anti-emetics. (8) Achalasia Current Visit: No Status: Chronic Priority: High Code(s): K22.0 - ACHALASIA OF CARDIA SNOMED Code(s): 26940415 Comment: - Continue pain control and tube feeds. - Aggressive anti-emetics - Pleasure feeds PRN. (9) Barretts esophagus Current Visit: No Status: Chronic Code(s): K22.70 - [place]'S ESOPHAGUS WITHOUT DYSPLASIA SNOMED Code(s): 164599184 Comment: - Outpatient GI surveilence. (10) CAD (coronary artery disease) Current Visit: No Status: Chronic Code(s): I25.10 - ATHSCL HEART DISEASE OF [place] CORONARY ARTERY W/O ANG PCTRS SNOMED Code(s): 49777800 Comment: - Continue DAPT, Metoprolol and Lipitor - Stress test low risk (11) HLD (hyperlipidemia) Current Visit: No Status: Chronic Code(s): E78.5 - HYPERLIPIDEMIA, UNSPECIFIED SNOMED Code(s): 18420273 Comment: - Continue atorvastatin. (12) DVT prophylaxis Current Visit: No Status: Acute Priority: Low Onset Date: 01/19/15 Code( s): [id number] - SNOMED Code(s): 327234375 Comment: - SCDs and Lovenox SQ (13) Full code status Current Visit: No Status: Acute Onset Date: 01/19/15 Code(s): Z78.9 - OTHER SPECIFIED HEALTH STATUS SNOMED Code(s): 130892396 Comment: Status and Disposition: Inpatient for intractable chest pain and R/O PE.
[2019-12-21] MEDS: Albuterol HFA INHALER* 8 gm MDI INH PRN ×2 (16:05→23:24)
[2019-12-21] MEDS: LORazepam TAB(*) 0.5 MG PO PRN (22:05)
[2019-12-22] MEDS: HYDROmorphone INJ1* 1 MG/ML SYRINGE IV PRN ×6 (00:37→21:17)
[2019-12-22] MEDS: Carisoprodol TAB* 350 MG PO PRN ×3 (02:56→19:36)
[2019-12-22] MEDS: HYDROmorphone TAB* 4 MG PO PRN ×3 (02:57→19:37)
[2019-12-22] MEDS: Ondansetron ODT TAB* 4 MG PO PRN ×2 (04:50→19:40)
[2019-12-22 06:38] LABS: ABS Basophils 0.1 10^3/ul (0-0.2); ABS Eosinophils 0.3 10^3/ul (0-0.6); ABS Lymphocytes 1.4 10^3/ul (1.0-4.8); ABS Monocytes 0.8 10^3/ul (0-0.8); ABS Neutrophils 6.3 10^3/ul (1.5-7.7); Hematocrit 31 % (35-47); Hemoglobin 10.4 g/dL (12.0-16.0); Lymphocyte % 15.9 %; Mean Corpuscular HGB Conc 34 g/dL (31-36); Mean Corpuscular Hemoglobin 28 pg (27-31); Mean Corpuscular Volume 83 fL (80-97); Mean Platelet Volume 7.2 fL (7.4-10.4); Platelet Count 249 10^3/uL (150-450); Red Blood Count 3.69 10^6 /uL (3.70-4.87); Red Cell Distribution Width 17 % (10-15); White Blood Count 8.8 10^3/uL (3.5-10.8)
[2019-12-22] MEDS: Albuterol HFA INHALER* 8 gm MDI INH PRN ×2 (06:51→14:14)
[2019-12-22 06:55] LABS: BUN/Creatinine Ratio 23.3 (8-20); Calcium 7.8 mg/dL (8.6-10.3); EGFR African American 121.8 (>60); EGFR Non-African American 100.6 (>60); Magnesium 1.7 mg/dL (1.9-2.7); Potassium 4.2 mmol/L (3.5-5.0)
[2019-12-22] MEDS: SPIRIVA Respimat* (tiotropium) 2.5 mcg/inh Inhaler INH SCH (08:12)
[2019-12-22] MEDS ORDERED: Magnesium Sulfate 2 GM IV* 2 GM/50 ML BAG IVPB ONE (09:03)
[2019-12-22] MEDS: Metoprolol Tartrate TAB* 25 MG PO SCH ×2 (09:34→21:15)
[2019-12-22] MEDS: Spironolactone TAB* 25 MG PO SCH (09:35)
[2019-12-22] MEDS: Pantoprazole TAB * 40 MG TAB PO SCH (09:35)
[2019-12-22] MEDS: Losartan TAB* 25 MG PO SCH (09:36)
[2019-12-22] MEDS: Morphine TAB Extended Release (*) 30 MG TAB.ER PO SCH ×3 (09:37→21:16)
[2019-12-22] MEDS: amLODIPine TAB* 5 MG PO SCH (09:39)
[2019-12-22] MEDS: Aspirin 81 mg CHEW TAB* 81 MG TAB.CHEW PO SCH (09:39)
[2019-12-22] MEDS: Isosorbide Mononitrate ER TAB* 30 MG PO SCH (09:40)
[2019-12-22] MEDS: Folic Acid TAB* 1 MG PO SCH (09:40)
[2019-12-22] MEDS: Clopidogrel TAB* 75 MG PO SCH (09:41)
[2019-12-22] MEDS: PROCHLORPERAZINE INJ 5 MG/ML 2 ML VIAL IV PRN (09:42)
[2019-12-22] MEDS: Enoxaparin(*) 40 MG/0.4 ML SYR SUBCUT SCH (09:43)
[2019-12-22] MEDS: Multivitamins/Minerals TAB PO SCH (09:43)
[2019-12-22] MEDS: Atorvastatin* 40 MG TAB PO SCH (09:43)
--- NOTE | 2019-12-22 18:08 | PN ---
Subjective Date of Service: 12/22/19 Interval History: Ms. Prasad continues to have chest pain in the epigastric/LUQ/L chest area that she reports is constant and rated at 10/10. She states nothing makes it worse, including eating. She reports that nothing makes it go away, but dilaudid "calms it down." She has no nausea, vomiting, diarrhea. No other complaints today. Family History: Unchanged from Admission Social History: Unchanged from Admission Past Medical History: Unchanged from Admission Objective Active Medications: Albuterol (Ventolin Hfa Inhaler*) 2 puff INH Q4H PRN PRN Reason: SHORTNESS OF BREATH Last Admin: 12/22/19 14:14 Dose: 2 puff Albuterol (Ventolin 2.5 Mg/3 Ml Neb.Cely*) 2.5 mg INH Q4H PRN PRN Reason: SOB/WHEEZING Last Admin: 12/20/19 19:11 Dose: 2.5 mg Amlodipine Besylate (Norvasc Tab*) 10 mg PO DAILY [facility] Last Admin: 12/22/19 09:39 Dose: 10 mg Aspirin (Aspirin 81 Mg Chew Tab*) 81 mg PO DAILY [facility] Last Admin: 12/22/19 09:39 Dose: 81 mg Atorvastatin Calcium (Lipitor*) 40 mg PO DAILY [facility] Last Admin: 12/22/19 09:43 Dose: 40 mg Carisoprodol (Soma Tab*) 350 mg PO QID PRN PRN Reason: SPASMS - MUSCLE Last Admin: 12/22/19 12:12 Dose: 350 mg Clopidogrel Bisulfate (Plavix Tab*) 75 mg PO QAM [facility] Last Admin: 12/22/19 09:41 Dose: 75 mg Cyanocobalamin (Vitamin B12 Inj *) 1,000 mcg IM MONTHLY [facility] Enoxaparin Sodium (Lovenox(*)) 40 mg SUBCUT Q24H [facility] Last Admin: 12/22/19 09:43 Dose: 40 mg Fluticasone Propionate (Flonase Nasal [place] 50mcg*) 2 spray BOTH NARES DAILY PRN PRN Reason: Allergy Symptoms Folic Acid (Folvite Tab*) 1 mg PO DAILY [facility] Last Admin: 12/22/19 09:40 Dose: 1 mg Heparin Sodium (Porcine) (Heparin Flush Port (Ivad)) 5 ml FLUSH DAILY [facility]; Protocol Last Admin: 12/22/19 09:44 Dose: 5 ml Hydromorphone HCl (Dilaudid Inj1s*) 1 mg IV Q4H PRN PRN Reason: pain-severe Last Admin: 12/22/19 16:37 Dose: 1 mg Hydromorphone HCl (Dilaudid Tab*) 8 mg PO Q4H PRN PRN Reason: Pain-moderate Last Admin: 12/22/19 11:30 Dose: 8 mg Isosorbide Mononitrate (Imdur Er Tab*) 30 mg PO DAILY [facility] Last Admin: 12/22/19 09:40 Dose: 30 mg Lorazepam (Ativan Tab(*)) 0.5 mg PO BEDTIME PRN PRN Reason: ANXIETY Last Admin: 12/21/19 22:05 Dose: 0.5 mg Losartan Potassium (Cozaar Tab*) 100 mg PO DAILY [facility] Last Admin: 12/22/19 09:36 Dose: 100 mg Metoprolol Tartrate (Lopressor Tab*) 25 mg PO BID [facility] Last Admin: 12/22/19 09:34 Dose: 25 mg Morphine Sulfate (Ms Contin(*)) 60 mg PO TID [facility] Last Admin: 12/22/19 14:13 Dose: 60 mg Multivitamins/Minerals (Theragran/Minerals Tab*) 1 tab PO DAILY [facility] Last Admin: 12/22/19 09:43 Dose: Not Given Nitroglycerin (Nitroglycerin Tab 0.4 Mg*) 0.4 mg SL Q5M PRN PRN Reason: chest pain Ondansetron HCl (Zofran Odt Tab*) 4 mg PO Q8HR PRN PRN Reason: NAUSEA/VOMITING Last Admin: 12/22/19 04:50 Dose: 4 mg Ondansetron HCl (Zofran Inj*) 4 mg IV Q6H PRN PRN Reason: NAUSEA Last Admin: 12/20/19 08:07 Dose: 4 mg Pantoprazole Sodium (Protonix Tab*) 40 mg PO DAILY [facility] Last Admin: 12/22/19 09:35 Dose: 40 mg Prochlorperazine Edisylate (Compazine Inj*) 5 mg IV Q6H PRN PRN Reason: NAUSEA/VOMITING Last Admin: 12/22/19 09:42 Dose: 5 mg Spironolactone (Aldactone Tab*) 25 mg PO DAILY [facility] Last Admin: 12/22/19 09:35 Dose: 25 mg Tiotropium [place] (Spiriva Respimat 2.5 Mcg) 2 puff INH DAILY [facility] Last Admin: 12/22/19 08:12 Dose: 2 puff Vital Signs: Temp Pulse Resp BP Pulse Ox 97.7 F 57 20 136/61 95 12/22/19 15:15 12/22/19 15:15 12/22/19 17:29 12/22/19 15:15 12/22/19 15:15 Oxygen Devices in Use Now: None Appearance: Ms. Prasad is a cachectic-appearing older white woman who is sitting up in bed. She appears mildly uncomfortable, but in no acute distress. Eyes: No Scleral Icterus, PERRLA Ears/Nose/Mouth/Throat: NL Teeth, Lips, Gums, Clear Oropharnyx, Mucous Membranes Moist Neck: NL Appearance and Movements; NL JVP, Trachea Midline Respiratory: Symmetrical Chest Expansion and Respiratory Effort, - - breath sounds diminished throughout without wheeze, rhonchi, rales Cardiovascular: NL Sounds; No Murmurs; No JVD, RRR, No Edema Abdominal: NL Sounds; No Tenderness; No Distention, - - feeding tube in place; hypoactive bowel sounds; abdomen TTP at epigastric, LLQ Extremities: No Edema, No Clubbing, Cyanosis Neurological: Alert and Oriented x 3 Result Diagrams: 12/22/19 06:28 12/22/19 06:28 Assess/Plan/Problems-Billing Assessment: Patient is a 64yo female with a PMH for CAD, Achalasia, PE, here with Chest pain which is severe. Admitted for pain control and ischemic workup given significant cardiac history. - Patient Problems (1) Chest pain Comment: - Associated with abdominal pain and nausea as well - Variable EKG findings, no abvious ischemic changes - Most likely 2/2 achalasia - Was scheduled for stress test outpatient as recently has NSTEMI - Stress test low risk - With history PE, Elevated trop, Elevated D-Dimer with no other obvious cause, BNP above baseline, V/Q scan ordered, which was low risk (2) Chronic pain Comment: - Pt in significant acute on chronic pain at this time. - continue extended release morphine to 60mg TID prn which is her home dose - Continue PRN dilaudid dose. - Continue soma PRN. - She follows outpatient with pain clinic; pain consult ordered for further recommendations (3) Electrolyte abnormality Comment: - Hyponatremia, Hypokalemia, and Hypomagnesemia - Replace PRN - Due to Poor oral intake (4) Elevated troponin Comment: - Troponin elevation, no new EKG changes, worsened chest pain - Stress test normal - V/Q scan low risk (5) Hypertensive urgency Comment: -BP in ED wa 200s/110s -SBP controlled 130-150's -likely related to severe pain -continue metoprolol tartrate to 25mg BID -continue spironolactone, imdur, losartan (6) Achalasia Comment: - Continue pain control; pain consult ordered, due to continued uncontrolled pain - tube feeds overnight - Aggressive anti-emetics - Pleasure feeds PRN (7) Intractable nausea and vomiting Comment: - Strong provoker of chest pain - Aggressive anti-emetics. (8) CAD (coronary artery disease) Comment: -Stress test low risk -continue DAPT, metoprolol, imdur, lipitor (9) Hx of deep venous thrombosis Comment: -not on anticoagulation outpatient -V/Q scan low risk (10) HLD (hyperlipidemia) Comment: -continue atorvastatin (11) Barretts esophagus Comment: - Outpatient GI surveilence (12) DVT prophylaxis Comment: - SCDs and Lovenox SQ (13) Full code status Comment: Status and Disposition: Observation for chest pain and stress test.
[2019-12-22] MEDS: LORazepam TAB(*) 0.5 MG PO PRN (19:46)
[2019-12-23] MEDS: HYDROmorphone INJ1* 1 MG/ML SYRINGE IV PRN ×4 (02:10→15:38)
[2019-12-23] MEDS: HYDROmorphone TAB* 4 MG PO PRN ×2 (03:08→07:46)
[2019-12-23] MEDS: Carisoprodol TAB* 350 MG PO PRN ×3 (03:15→15:36)
[2019-12-23] MEDS ORDERED: Magnesium Sulfate 2 GM IV* 2 GM/50 ML BAG IVPB ONE (07:39)
[2019-12-23] MEDS: SPIRIVA Respimat* (tiotropium) 2.5 mcg/inh Inhaler INH SCH (07:47)
[2019-12-23] MEDS: Aspirin 81 mg CHEW TAB* 81 MG TAB.CHEW PO SCH (08:47)
[2019-12-23] MEDS: Spironolactone TAB* 25 MG PO SCH (08:47)
[2019-12-23] MEDS: Multivitamins/Minerals TAB PO SCH (08:48)
[2019-12-23] MEDS: Isosorbide Mononitrate ER TAB* 30 MG PO SCH (08:48)
[2019-12-23] MEDS: Clopidogrel TAB* 75 MG PO SCH (08:48)
[2019-12-23] MEDS: Pantoprazole TAB * 40 MG TAB PO SCH (08:49)
[2019-12-23] MEDS: Folic Acid TAB* 1 MG PO SCH (08:49)
[2019-12-23] MEDS: Losartan TAB* 25 MG PO SCH (08:49)
[2019-12-23] MEDS: amLODIPine TAB* 5 MG PO SCH (08:49)
[2019-12-23] MEDS: Atorvastatin* 40 MG TAB PO SCH (08:49)
[2019-12-23] MEDS: Metoprolol Tartrate TAB* 25 MG PO SCH (08:50)
[2019-12-23] MEDS: Morphine TAB Extended Release (*) 30 MG TAB.ER PO SCH ×2 (08:50→13:58)
[2019-12-23] MEDS: Enoxaparin(*) 40 MG/0.4 ML SYR SUBCUT SCH (08:51)
--- NOTE | 2019-12-23 13:23 | CONSULT ---
Consult Consult: December 23, 2019 INPATIENT PAIN CONSULTATION Isabel Prasad is a 64 year old female. She has atypical chest pain from distal esophogeal spasm and probable achalasia. She has a thoracic surgeon, Dr. Buckley. She had tried Botox injections but had a anaphylactic reaction to that and was unable to do that again. She has been a patient in the pain clinic for the past three years and prior to that was getting opioids from her primary care doctor. She has had a ME in January,. Her most recent visit in the Pain Clinic was in November. At that time she was on MS Contin, 60 mg [id number], Soma 350 mg 4 times a day and Dilaudid 4 mg tabs, up to 9 tabs a day PRN, she often takes two dilaudid at a time. She was admitted to the hospital on Saturday with chest pain. The patient thought she was having a ME and was admitted. She had a workup for an ME and Troponins were 0.03 and 0.02. She was still having pain. I am asked to see her for pain management. PAST MEDICAL HISTORY: NSTEMI, CAD, Jtube, PE Allergies Allergy/AdvReac Type Severity Reaction Status Date / Time albumin colloid, human Allergy Severe Anaphylatic Verified 12/19/19 17:01 Shock bee venom protein (honey bee) Allergy Severe Anaphylatic Verified 12/19/19 17:01 Shock diphenhydramine Allergy Severe Hallucinati Verified 12/19/19 17:01 [From Benadryl] ons Iodinated Contrast Media Allergy Severe Anaphylatic Verified 12/19/19 17:01 [Iodinated Contrast- Oral Shock and IV Dye] onabotulinumtoxinA Allergy Severe Anaphylatic Verified 12/19/19 17:01 [From Botox] Shock Penicillins Allergy Severe Anaphylatic Verified 12/19/19 17:01 Shock shellfish derived Allergy Severe Anaphylatic Verified 12/19/19 17:01 Shock Adhesive Tape Allergy Mild Itching Verified 12/19/19 17:01 chlorhexidine Allergy Mild Rash And Verified 12/19/19 17:01 Itching latex Allergy Mild Hives Verified 12/19/19 17:01 NSAIDS (Non-Steroidal Allergy Mild Hives Verified 12/19/19 17:01 Anti-Inflamma povidone-iodine Allergy Mild Itching Verified 12/19/19 17:01 oxycodone Allergy Unknown Unknown Verified 12/19/19 17:01 Reaction Details fentanyl Allergy Hallucinati Verified 12/19/19 17:01 ons Gadolinium-Containing Allergy Itching Verified 12/19/19 17:01 Contrast Medi ENVIRONMENTAL/SEASONAL Allergy Mild ITCHY,WATERY Uncoded 05/27/19 10:29 HAYFEVER EYES, SNEEZE, CONGESTION Current Medications Albuterol (Ventolin Hfa Inhaler*) 2 puff INH Q4H PRN PRN Reason: SHORTNESS OF BREATH Last Admin: 12/22/19 14:14 Dose: 2 puff Albuterol (Ventolin 2.5 Mg/3 Ml Neb.Cely*) 2.5 mg INH Q4H PRN PRN Reason: SOB/WHEEZING Last Admin: 12/20/19 19:11 Dose: 2.5 mg Amlodipine Besylate (Norvasc Tab*) 10 mg PO DAILY [facility] Last Admin: 12/23/19 08:49 Dose: 10 mg Aspirin (Aspirin 81 Mg Chew Tab*) 81 mg PO DAILY [facility] Last Admin: 12/23/19 08:47 Dose: 81 mg Atorvastatin Calcium (Lipitor*) 40 mg PO DAILY [facility] Last Admin: 12/23/19 08:49 Dose: 40 mg Carisoprodol (Soma Tab*) 350 mg PO QID PRN PRN Reason: SPASMS - MUSCLE Last Admin: 12/23/19 08:50 Dose: 350 mg Clopidogrel Bisulfate (Plavix Tab*) 75 mg PO QAM [facility] Last Admin: 12/23/19 08:48 Dose: 75 mg Cyanocobalamin (Vitamin B12 Inj *) 1,000 mcg IM MONTHLY [facility] Enoxaparin Sodium (Lovenox(*)) 40 mg SUBCUT Q24H [facility] Last Admin: 12/23/19 08:51 Dose: 40 mg Fluticasone Propionate (Flonase Nasal [place] 50mcg*) 2 spray BOTH NARES DAILY PRN PRN Reason: Allergy Symptoms Folic Acid (Folvite Tab*) 1 mg PO DAILY [facility] Last Admin: 12/23/19 08:49 Dose: 1 mg Heparin Sodium (Porcine) (Heparin Flush Port (Ivad)) 5 ml FLUSH DAILY [facility]; Protocol Last Admin: 12/23/19 10:32 Dose: 5 ml Hydromorphone HCl (Dilaudid Inj1s*) 1 mg IV Q4H PRN PRN Reason: pain-severe Last Admin: 12/23/19 10:32 Dose: 1 mg Hydromorphone HCl (Dilaudid Tab*) 8 mg PO Q4H PRN PRN Reason: Pain-moderate Last Admin: 12/23/19 07:46 Dose: 8 mg Isosorbide Mononitrate (Imdur Er Tab*) 30 mg PO DAILY [facility] Last Admin: 12/23/19 08:48 Dose: 30 mg Lorazepam (Ativan Tab(*)) 0.5 mg PO BEDTIME PRN PRN Reason: ANXIETY Last Admin: 12/22/19 19:46 Dose: 0.5 mg Losartan Potassium (Cozaar Tab*) 100 mg PO DAILY [facility] Last Admin: 12/23/19 08:49 Dose: 100 mg Metoprolol Tartrate (Lopressor Tab*) 25 mg PO BID [facility] Last Admin: 12/23/19 08:50 Dose: 25 mg Morphine Sulfate (Ms Contin(*)) 60 mg PO TID [facility] Last Admin: 12/23/19 08:50 Dose: 60 mg Multivitamins/Minerals (Theragran/Minerals Tab*) 1 tab PO DAILY [facility] Last Admin: 12/23/19 08:48 Dose: Not Given Nitroglycerin (Nitroglycerin Tab 0.4 Mg*) 0.4 mg SL Q5M PRN PRN Reason: chest pain Ondansetron HCl (Zofran Odt Tab*) 4 mg PO Q8HR PRN PRN Reason: NAUSEA/VOMITING Last Admin: 12/22/19 19:40 Dose: 4 mg Ondansetron HCl (Zofran Inj*) 4 mg IV Q6H PRN PRN Reason: NAUSEA Last Admin: 12/20/19 08:07 Dose: 4 mg Pantoprazole Sodium (Protonix Tab*) 40 mg PO DAILY [facility] Last Admin: 12/23/19 08:49 Dose: 40 mg Prochlorperazine Edisylate (Compazine Inj*) 5 mg IV Q6H PRN PRN Reason: NAUSEA/VOMITING Last Admin: 12/22/19 09:42 Dose: 5 mg Spironolactone (Aldactone Tab*) 25 mg PO DAILY [facility] Last Admin: 12/23/19 08:47 Dose: 25 mg Tiotropium [place] (Spiriva Respimat 2.5 Mcg) 2 puff INH DAILY [facility] Last Admin: 12/23/19 07:47 Dose: 2 puff SOCIAL HISTORY: 1/2 ppd smoker, denies alcohol or drug use Vital Signs Temp Pulse Resp BP Pulse Ox 97.5 F 67 18 120/77 94 12/23/19 11:48 12/23/19 11:48 12/23/19 13:58 12/23/19 11:48 12/23/19 11:48 EXAM: GENERAL: Mild distress LUNGS: Clear HEART: Reg rhythm ABDOMEN: Soft, tender in epigastric region NEUROLOGIC: Sensation intact. Able to move 4 extremities ASSESSMENT: 1. Atypical Chest Pain PLAN: I will add a small amount of morphine concentrate for her to use when the pain is severe. I will add Morphine 20 mg/ml and she can take 1 ml up to twice a day for breakthrough pain. I will send in a 10 day supply
[2019-12-23 15:26] VITALS: BP 124/56
[2019-12-23] MEDS: PROCHLORPERAZINE INJ 5 MG/ML 2 ML VIAL IV PRN (15:37)
[2019-12-23] MEDS: Albuterol HFA INHALER* 8 gm MDI INH PRN (17:39)
--- NOTE | 2019-12-23 22:30 | DS ---
DISCHARGE SUMMARY: DATE OF ADMISSION: 12/19/19 DATE OF DISCHARGE: 12/23/19 PRIMARY CARE PROVIDER: Dr. Combs. OTHER PROVIDERS: Dr. Domínguez, Dr. Ayala. ATTENDING PHYSICIAN: Dr. Yumiko Milan* (dictated by CRISTINA Olivarez). PRIMARY DIAGNOSES: 1. Chest pain, acute coronary syndrome ruled out. 2. Chronic pain. 3. Electrolyte disturbances. 4. Hypertensive urgency due to pain. SECONDARY DIAGNOSES: 1. Severe achalasia, status post GJ tube. 2. Coronary artery disease, status post percutaneous coronary intervention, stent to RCA. 3. Hyperlipidemia. 4. History of transient ischemic attack. 5. History of seizure disorder. 6. Chronic obstructive pulmonary disease. 7. Hypertension. 8. Fernández's esophagus, gastroesophageal reflux disease. 9. History of right breast cancer. 10. Gastroparesis. STUDIES WHILE IN THE HOSPITAL: 1. Chest x-ray, impression: No radiographic evidence for acute cardiopulmonary abnormality on this portable chest x-ray. 2. Nuclear medicine stress test, impression: No evidence for stress-induced myocardial ischemia or presence of an infarct. Normal left ventricular wall motion and ejection fraction. Assessment, low risk based on nuclear portion. 3. Chest x-ray, impression: Right breast implant. Lung rivas are clear. 4. Nuclear medicine lung perfusion/ventilation, impression: Matched defect of the left mid lung likely an artifact of a left-sided chest port, low probability V/Q scan. CONSULTATIONS WHILE IN THE HOSPITAL: Pain consult for atypical chest pain. Plan: I will add a small amount of morphine concentrate for her to use when the pain is severe. I will add morphine 20 mg per mL and she can take 1 mL up to twice a day for breakthrough pain. I sent in a 10-day supply. DISCHARGE MEDICATIONS: Home medications: 1. Albuterol HFA inhaler 2 puffs inhalation q.4 hours p.r.n. 2. Amlodipine 10 mg p.o. daily. 3. Atorvastatin 40 mg p.o. daily. 4. Atrovent 2 puffs inhalation q.6 hours p.r.n. 5. Carisoprodol 350 mg p.o. 4 times a day p.r.n. 6. Clopidogrel 75 mg p.o. daily. 7. Cyanocobalamin 1000 mcg IM monthly. 8. Epinephrine 0.3 mg IM once p.r.n. 9. Famotidine 20 mg G-tube daily p.r.n. 10. Fluticasone nasal spray 2 sprays to both nares daily. 11. Folic acid 1 mg p.o. daily. 12. Hydromorphone 8 mg p.o. q.4 hours p.r.n., MDD 12 tabs. 13. Isosorbide mononitrate 30 mg p.o. daily. 14. Allergy eyedrops 1 drop to both eyes b.i.d. p.r.n. 15. Jevity 1.5 calorie liquid 1185 mL per G-tube daily. 16. Levocetirizine 5 mg p.o. daily p.r.n. 17. Lorazepam 0.25 to 0.5 mg p.o. at bedtime p.r.n. 18. Losartan 100 mg p.o. daily. 19. Metoprolol tartrate 25 mg p.o. b.i.d. 20. Morphine sulfate 60 mg p.o. t.i.d. 21. Multivitamin/minerals 1 tab p.o. daily. 22. Nicotine nasal spray 10 mg nasally 4 times a day p.r.n. 23. Nitroglycerin 0.4 mg sublingual q.5 minutes p.r.n. 24. Ondansetron 4 mg p.o. q.8 hours p.r.n. 25. Pantoprazole 40 mg p.o. daily. 26. Spiriva Respimat 2 inhalations daily. 27. Spironolactone 25 mg p.o. daily. 28. Thiamine 100 mg p.o. daily. New home medications: Morphine 20 mg/mL 1 mL up to twice daily for breakthrough pain, 10 days supply sent by Dr. Ayala. HISTORY OF PRESENT ILLNESS/HOSPITAL COURSE: Ms. Prasad is a 64-year-old female with a past medical history of CAD, status post PCI and stenting; severe achalasia; hypertension; hyperlipidemia, who presented to the ER on 12/19/19 with complaints of chest pain as well as increased nausea and vomiting. For full and complete details, please see the history and physical dictated by Tennille Sierra NP, but in short, the patient presented with the above symptoms. She has presented with chest pain multiple times. She was last seen by Dr. Domínguez in October 2019 at which time she had an echocardiogram that revealed LV outflow obstruction and Dr. Domínguez recommended nuclear cardiac stress test. In the ER, an EKG was obtained and revealed ST depression in leads II, III, possibly aVF, V5 and V6. Her troponins were trended and were as followed: 0.01 , 0.02, 0.03, 0.02 with a very mild positive of 0.03. With this, the patient was admitted for further workup. A nuclear cardiac stress test was therefore obtained and the patient was low risk based on stress testing. Due to concern for continued chest pain, D-dimer was obtained, which was elevated to 781; therefore, a V/Q scan was ordered, this was also unremarkable and was low probability V/Q scan. The suspicion is that the patient's continued pain is likely the result of her achalasia. She does follow with the pain clinic; therefore, Dr. Ayala was consulted for continued uncontrolled pain. He recommended small dose of liquid morphine, which he has sent to the pharmacy. The patient was instructed to follow up with her doctor at the [facility], who she follows for achalasia and with Dr. Ayaal at the pain clinic at discharge. We had a discussion about keeping the patient overnight to try to attempt pain control, but the patient is requesting to leave. She will therefore be discharged with prescription sent for liquid morphine to her pharmacy. The patient was noted to have some electrolyte abnormalities during her stay, this is likely the result of poor p.o. intake, they were replenished as necessary. She was offered tube feedings at bedtime, but refused stating that they give her loose stools and she has too far to transfer to the toilet and therefore, she would like to continue to eat orally and restart tube feeds at home. It is important to note that upon arrival, the patient did have hypertension with systolic blood pressures elevated to 200, these were likely related to pain and improved throughout her stay. At discharge, her systolic blood pressure is in the 120s. She also noted episodes of nausea and vomiting at admission, although these appeared to resolve prior to discharge and she reports no recent nausea, vomiting, or retching prior to discharge. At this time, the patient continues to have 10/10 epigastric/left chest pain, again ACS was ruled out. She reports her pain as a pressure that is constant. She will continue to follow with Dr. Ayala and a specialist at [facility]. She denies cough, fever, chills, but does note occasional shortness of breath, which is chronic. She denies nausea, vomiting, diarrhea, constipation, myalgias, arthralgias. At this time, Ms. Prasad is stable for discharge home. PHYSICAL EXAMINATION: Vital Signs: Temperature 97.7 temporal, heart rate 61, respiratory rate 20, oxygen saturation 96% on room air, blood pressure 124/56. General: Ms. Prasad is a thin, malnourished, cachectic-appearing, middle-aged white woman, who appears somewhat older than her stated age, who is sitting up in bed. She appears very mildly uncomfortable, but in no acute distress. HEENT : PERRL. EOMI. Nonicteric sclerae without injection. Hearing is grossly intact. Oral mucous membranes are moist. There are no lesions. The pharynx is clear. The tongue is at midline. Palate elevates symmetrically. Cardiovascular: Regular rate and rhythm with S1 and S2 present. There are no murmurs, rubs, clicks, or gallops. There is no JVD or peripheral edema. Pulmonary: Diminished breath sounds throughout bilaterally without rales, rhonchi, or wheeze. Chest expansion is symmetrical. Abdomen: Thin, flat. Bowel sounds in all quadrants. The abdomen is soft. There is mild tenderness to palpation diffusely. There is a feeding tube in place to the left upper abdomen that appears without drainage or surrounding erythema. Musculoskeletal : Full range of motion without pain or deformity. Neuro: The patient is awake. She is alert and oriented x3 with cranial nerves II through XII grossly intact. DISCHARGE PLAN: Ms. Prasad is stable for discharge to home. CONDITION: Fair. DIET: 1. Regular unrestricted diet. 2. Continue tube feedings. ACTIVITY: As tolerated. MEDICATIONS: Adjustments per Dr. Ayala: Morphine concentrate for severe pain, take 1 mL up to twice a day for breakthrough pain. EDUCATION: 1. Follow up with pain clinic in 3 to 5 days. 2. Follow up with primary care provider in 4 to 7 days. 3. Follow up with specialist at [facility] in 4 to 7 days to discuss further treatment options. 4. Return to the ER or nearest hospital for return or worsening of symptoms, chest pain or discomfort, shortness of breath, dizziness, lightheadedness, loss of consciousness, high fevers, chills, night sweats, or any other worrisome signs or symptoms. This is a summarized report of a complex medical history and hospital stay. For further details, please see the entire medical record. TIME SPENT: Approximately 35 minutes was spent on this discharge, greater than half that time was spent [id number] with the patient discussing discharge plans and instructions. CRISTINA UREÑA [id number]/CPS #: [id number] [place]
[2020-01-02] MEDS ORDERED: Cyanocobalamin INJ * 1,000 MCG/ML VIAL 1 ML VIAL IM SCH (09:00)
== END 2019-12-23 18:28 | disposition home or self-care (01) | DRG 243 ==
LOC: ED 16:50 → MEDTELE 19:30
PROVIDERS: ADMIT Internal Medicine; ATTEND Internal Medicine
DX: K22.0 Achalasia of cardia (principal); E87.1 Hypo-osmolality and hyponatremia; G89.29 Other chronic pain; I16.0 Hypertensive urgency; I25.10 Atherosclerotic heart disease of native coronary artery without angina pectoris; E78.5 Hyperlipidemia, unspecified; G40.909 Epilepsy, unspecified, not intractable, without status epilepticus; J44.9 Chronic obstructive pulmonary disease, unspecified; I10 Essential (primary) hypertension; K22.70 Barrett's esophagus without dysplasia; K21.9 Gastro-esophageal reflux disease without esophagitis; K31.84 Gastroparesis; J30.2 Other seasonal allergic rhinitis; E78.00 Pure hypercholesterolemia, unspecified; K57.90 Diverticulosis of intestine, part unspecified, without perforation or abscess without bleeding; H26.9 Unspecified cataract; F41.9 Anxiety disorder, unspecified; F17.210 Nicotine dependence, cigarettes, uncomplicated; E83.42 Hypomagnesemia; R79.89 Other specified abnormal findings of blood chemistry; E87.6 Hypokalemia; D64.9 Anemia, unspecified; Z96.89 Presence of other specified functional implants; Z79.02 Long term (current) use of antithrombotics/antiplatelets; I25.2 Old myocardial infarction; Z86.718 Personal history of other venous thrombosis and embolism; Z86.711 Personal history of pulmonary embolism; Z95.5 Presence of coronary angioplasty implant and graft; Z86.73 Personal history of transient ischemic attack (TIA), and cerebral infarction without residual deficits; Z85.3 Personal history of malignant neoplasm of breast; Z93.1 Gastrostomy status; Z88.6 Allergy status to analgesic agent; Z91.030 Bee allergy status; Z91.041 Radiographic dye allergy status; Z91.040 Latex allergy status; Z88.5 Allergy status to narcotic agent; Z88.0 Allergy status to penicillin; Z91.013 Allergy to seafood; Z88.8 Allergy status to other drugs, medicaments and biological substances; Z91.048 Other nonmedicinal substance allergy status; Z90.13 Acquired absence of bilateral breasts and nipples; Z90.711 Acquired absence of uterus with remaining cervical stump; Z96.652 Presence of left artificial knee joint
CPT/HCPCS: 36415; 71045; 71046; 78452; 78582; 80048; 80053; 82550; 82553; 83605; 83735; 83880; 84443; 84484; 85025; 85379; 85610; 85730; 93005; 93017; 94640; 96374; 96375; 99284; A9270-GY; A9502; A9540; A9558; J0780; J1170; J1642; J1644; J1650; J2060; J2270; J2405; J2765; J2785; J3475; J3480; J3535

== ENCOUNTER 2020-01-19 07:33 | Emergency (ER) | payer OTHER ==
[2020-01-19] MEDS ORDERED: Ondansetron INJ* 2 MG/ML VIAL IV ONE (07:42)
[2020-01-19] MEDS ORDERED: HYDROmorphone INJ* 0.5 MG/0.5 ML SYRINGE IV ONE (07:42)
[2020-01-19] MEDS ORDERED: NS 0.9% 1000 ML** 1,000 ML IV ONE ×2 (07:43→08:20)
--- NOTE | 2020-01-19 07:43 | ED ---
Abdominal Pain/Female - HPI Summary HPI Summary: Patient is a 64 y/o F presenting to the ED via EMS for a chief complaint of abdominal pain and chest pain. Per EMS, patient has also had nausea and vomiting described as dry heaving. Patient also reports shortness of breath. She denies fever. The chest pain is described as a pressure sensation. Patient was given 3 ASA and NTG by EMS without relief. She also took her prescribed Zofran, Dilaudid, and morphine at home without relief. No aggravating or alleviating factors are reported. Last bowel movement was on 01/18/20. She denies having a feeding tube. PMHx is significant for HTN, 3 LA, breast cancer in remission, and achalasia, but denies history of DM or SBO. PSHx is significant for stent placement, abdominal surgery, and port placement. - History of Current Complaint Chief Complaint: EDChestPainROMI Stated Complaint: CHEST PAIN PER EMS Hx Obtained From: Patient, EMS Onset/Duration: Sudden Onset, Still Present Timing: Constant Severity Initially: Moderate Severity Currently: Moderate Pain Scale Used: 0-10 Numeric Radiates: No Aggravating Factor(s): Nothing Alleviating Factor(s): Nothing Associated Signs and Symptoms: Positive: Chest Pain, Nausea, Vomiting. Negative : Fever Allergies/Adverse Reactions: Allergies Allergy/AdvReac Type Severity Reaction Status Date / Time albumin colloid, human Allergy Severe Anaphylatic Verified 12/19/19 17:01 Shock bee venom protein (honey bee) Allergy Severe Anaphylatic Verified 12/19/19 17:01 Shock diphenhydramine Allergy Severe Hallucinati Verified 12/19/19 17:01 [From Benadryl] ons Iodinated Contrast Media Allergy Severe Anaphylatic Verified 12/19/19 17:01 [Iodinated Contrast- Oral Shock and IV Dye] onabotulinumtoxinA Allergy Severe Anaphylatic Verified 12/19/19 17:01 [From Botox] Shock Penicillins Allergy Severe Anaphylatic Verified 12/19/19 17:01 Shock shellfish derived Allergy Severe Anaphylatic Verified 12/19/19 17:01 Shock Adhesive Tape Allergy Mild Itching Verified 12/19/19 17:01 chlorhexidine Allergy Mild Rash And Verified 12/19/19 17:01 Itching latex Allergy Mild Hives Verified 12/19/19 17:01 NSAIDS (Non-Steroidal Allergy Mild Hives Verified 12/19/19 17:01 Anti-Inflamma povidone-iodine Allergy Mild Itching Verified 12/19/19 17:01 oxycodone Allergy Unknown Unknown Verified 12/19/19 17:01 Reaction Details fentanyl Allergy Hallucinati Verified 12/19/19 17:01 ons Gadolinium-Containing Allergy Itching Verified 12/19/19 17:01 Contrast Medi ENVIRONMENTAL/SEASONAL Allergy Mild ITCHY,WATERY Uncoded 05/27/19 10:29 HAYFEVER EYES, SNEEZE, CONGESTION Home Medications: Home Medications Cyanocobalamin INJ * [Vitamin B12 INJ *] 1 ml IM MONTHLY 05/31/15 [History Confirmed 01/19/20] Ondansetron ODT TAB* [Zofran 4 MG Odt TAB*] 4 mg PO Q8HR PRN 07/23/17 [History Confirmed 01/19/20] Nitroglycerin TAB 0.4 MG* 0.4 mg SL Q5M PRN #30 tab 04/19/18 [Rx Confirmed 01/18] Pantoprazole TAB * [Protonix TAB*] 40 mg PO DAILY #0 11/14/18 [History Confirmed 01/19/20] Carisoprodol TAB* [Soma TAB*] 350 mg PO QID PRN 12/12/18 [History Confirmed ] Clopidogrel TAB* [Plavix TAB*] 75 mg PO DAILY 12/12/18 [History Confirmed ] amLODIPine TAB* [Norvasc 5 mg TAB*] 10 mg PO DAILY 12/12/18 [History Confirmed 01/19/20] Folic Acid TAB* [Folvite TAB*] 1 mg PO DAILY 02/26/19 [History Confirmed ] HYDROmorphone TAB* [Dilaudid Tab*] 8 mg PO Q4H PRN MDD 12 tabs 02/26/19 [ History Confirmed 01/19/20] Albuterol HFA INHALER* [Ventolin HFA Inhaler*] 2 puff INH Q4H PRN 06/12/19 [ History Confirmed 01/19/20] EPINEPHrine [Epipen 2-Godwin] 0.3 mg IM ONCE PRN 06/12/19 [History Confirmed ] Famotidine TAB* [Pepcid 20 MG TAB*] 20 mg J TUBE DAILY PRN 06/12/19 [History Confirmed 01/19/20] Ketotifen Fumarate [Allergy Eye Drops] 1 drop BOTH EYES BID PRN 06/12/19 [ History Confirmed 01/19/20] LORazepam TAB(*) [Ativan 0.5 MG TAB (*)] 0.25 - 0.5 mg PO BEDTIME PRN 06/12/19 [ History Confirmed 01/19/20] Lactose-Reduced Food/Fiber [Jevity 1.5 Pindea Liquid] 1,185 ml J TUBE DAILY [History Confirmed 01/19/20] Nicotine [Nicotrol NS 10 MG/ML NASAL SPRAY] 10 mg NASAL QID PRN 06/12/19 [ History Confirmed 01/19/20] Isosorbide Mononitrate ER TAB* [Imdur ER TAB*] 30 mg PO DAILY 07/16/19 [History Confirmed 01/19/20] Spironolactone 25 mg PO DAILY 09/08/19 [History Confirmed 01/19/20] Metoprolol Tartrate TAB* [Lopressor TAB*] 25 mg PO BID tab 09/10/19 [Rx Confirmed 01/19/20] Losartan Potassium 100 mg PO DAILY 10/25/19 [History Confirmed 01/19/20] Fluticasone NASAL SPRAY 50MCG* [Flonase NASAL SPRAY 50MCG*] 2 spray BOTH NARES DAILY 12/19/19 [History Confirmed 01/19/20] Levocetirizine Dihydrochloride [Xyzal] 5 mg PO BEDTIME PRN 12/19/19 [History Confirmed 01/19/20] Multivitamins/Minerals TAB* [Theragran/minerals TAB*] 1 tab PO DAILY 12/19/19 [ History Confirmed 01/19/20] Thiamine HCl [Vitamin B-1] 100 mg PO DAILY 12/19/19 [History Confirmed 01/19/20] Atorvastatin* [Lipitor 40 MG*] 40 mg PO BEDTIME 01/19/20 [History Confirmed ] Azelastine HCl 2 spray BOTH NARES DAILY 01/19/20 [History Confirmed 01/19/20] Ipratropium HFA INHALER(NF) [Atrovent Hfa Inhaler(NF)] 2 puff INH Q6H PRN [History Confirmed 01/19/20] Mometasone NASAL (NF) [Nasonex (NF)] 2 spray BOTH NARES DAILY 01/19/20 [History Confirmed 01/19/20] Morphine Sulfate [Morphine Sulfate ER] 60 mg PO Q8H PRN 01/19/20 [History Confirmed 01/19/20] Mupirocin 2% CREAM* [Bactroban 2% CREAM*] 1 applic TOPICAL BID 01/19/20 [ History Confirmed 01/19/20] Naloxone Nasal [place]* [Narcan Nasal [place]] 4 mg BOTH NARES ONCE PRN 01/19/20 [ History Confirmed 01/19/20] Tiotropium [place] [Spiriva Respimat] 2 inh PO DAILY PRN 01/19/20 [History Confirmed 01/19/20] PMH/Surg Hx/FS Hx/Imm Hx Previously Healthy: Yes Endocrine/Hematology History: Reports: Hx Anticoagulant Therapy - plavix, Hx Anemia - possible Denies: Hx Diabetes, Hx Thyroid Disease Cardiovascular History: Reports: Hx Angina - has prn nitro, Hx Coronary Artery Disease - 2 stents- RCA stent 2006, LAD stent 2007, Hx Deep Vein Thrombosis, Hx Embolism, Hx Hypertension, Hx Myocardial Infarction, Hx Syncope, Other Cardiovascular Problems/Disorders - cardiac cath Denies: Hx Congestive Heart Failure, Hx Hypercholesterolemia, Hx Pacemaker/ ICD, Hx Valvular Heart Disease Respiratory History: Reports: Hx Chronic Obstructive Pulmonary Disease (COPD) - Pt denies though providers have diagnosed it, Hx Pneumonia, Hx Pulmonary Embolism - and DVT 30 yrs ago, Hx Seasonal Allergies, Other Respiratory Problems /Disorders - SMOKER Denies: Hx Asthma, Hx Sleep Apnea GI History: Reports: Hx Diverticulosis, Hx Gastroesophageal Reflux Disease, Hx Hiatal Hernia - 3 surgeries, Other GI Disorders - achalasia, Fernández's esophagus , gastroparesis, J tube Denies: Hx Ulcer History: Reports: Hx Kidney Infection, Hx Kidney Stones - LAST 12/2015- NO PROBLEMS SINCE PER PATIENT Denies: Hx Dialysis, Hx Renal Disease, Other Problems/Disorders Musculoskeletal History: Reports: Hx Back Problems, Other Musculoskeletal History - L1 fx Denies: Hx Arthritis, Hx Osteoporosis Sensory History: Reports: Hx Cataracts - bilat cataracts, Hx Contacts or Glasses Denies: Hx Hearing Aid Opthamlomology History: Reports: Hx Cataracts - bilat cataracts, Hx Contacts or Glasses Neurological History: Reports: Hx Spinal Cord Injury - L1, Hx Transient Ischemic Attacks (TIA) - 10/2017 [facility] Psychiatric History: Reports: Hx Anxiety Denies: Hx Panic Disorder - Cancer History Cancer Type, Location and Year: RT BREAST CA, 2009 HAD A BILATERAL MASTECTOMY Hx Chemotherapy: No Hx Radiation Therapy: No - Surgical History Surgical History: Yes Surgery Procedure, Year, and Place: RT LUMPECTOMY 02/2010, BILATERAL MASTECTOMY ,. 2006& 2007 CARDIAC STENT AT [facility] IN [place],. LEFT KNEE SURGERY X10,. BILATERAL SHOULDER SURGERY,. ESPOHOGEAL SURGERY,1996, 2014. Hysterectomy, pt estimated 1977. failed breast implant on left. PARTIAL HYSTERECTOMY, 1976. APPENDIX A CHILD,. CHEST TUBE, 1996. ESOPHAGEAL DILATION. NISSIN FUNDOLPICATION . total left knee replacement 2015. kidney stone surgery. left chest wound surgery 2010. Insertion Infusaport 2017 Hx Anesthesia Reactions: No - Immunization History Date of Tetanus Vaccine: utd Date of Influenza Vaccine: fall 2016 Infectious Disease History: Yes Infectious Disease History: Reports: Hx Clostridium Difficile Denies: Hx Hepatitis, Hx Human Immunodeficiency Virus (HIV), Hx of Known/ Suspected MRSA, Hx Shingles, Hx Tuberculosis, Hx Known/Suspected VRE, Hx Known/ Suspected VRSA, History Other Infectious Disease - Family History Known Family History: Positive: Cardiac Disease - Father, 2 brothers - [place]. Mother - AFIB, Hypertension, Diabetes - Social History Occupation: Disabled Alcohol Use: None Hx Substance Use: No Substance Use Type: Reports: None Substance Use Comment - Amount & Last Used: prescribed Hx Tobacco Use: Yes Smoking Status (MU): Current Every Day Smoker Type: Cigarettes Amount Used/How Often: 1/2 PPD Length of Time of Smoking/Using Tobacco: 40+ YEARS Have You Smoked in the Last Year: Yes Review of Systems Negative: Fever Positive: Chest Pain Positive: Shortness Of Breath Positive: Abdominal Pain, Vomiting, Nausea All Other Systems Reviewed And Are Negative: Yes Physical Exam - Summary Physical Exam Summary: Constitutional: Well-developed, Well-nourished, Alert. (-) Distressed. Patient appears weak. Skin: Warm, Dry HENT: Normocephalic; Atraumatic Eyes: Conjunctiva normal Neck: Musculoskeletal ROM normal neck. (-) JVD, (-) Stridor, (-) Tracheal deviation Cardio: Rhythm regular, rate normal, Heart sounds normal; Intact distal pulses; The pedal pulses are 2+ and symmetric. Radial pulses are 2+ and symmetric. (-) Murmur Pulmonary/Chest wall: Effort normal. (-) Respiratory distress, (-) Wheezes, (-) Rales. Port noted in the left upper chest, feeding tube noted, s/p left mastectomy. Abd: Soft, (-) tenderness, (-) Distension, (-) Guarding, (-) Rebound. Epigastric tenderness Musculoskeletal: (-) Edema Lymph: (-) Cervical adenopathy Neuro: Alert, Oriented x3 Psych: Mood and affect Normal Triage Information Reviewed: Yes Vital Signs Reviewed: Yes Procedures - Sedation Patient Received Moderate/Deep Sedation with Procedure: No Diagnostics - Laboratory Result Diagrams: 01/19/20 07:45 01/19/20 15:19 Lab Statement: Any lab studies that have been ordered have been reviewed, and results considered in the medical decision making process. - Radiology Chest X-ray Radiology Interpretation Completed By: Radiologist Summary of Radiographic Findings: Chest X-ray IMPRESSION: NO ACTIVE CARDIOPULMONARY DISEASE. Reviewed by Dr. White. - EKG 07:52 Cardiac Rate: NL - 76 BPM EKG Rhythm: Sinus Rhythm ST Segment: Normal Ectopy: None Summary of EKG Findings: EKG at 07:52 shows normal sinus rhythm with slight ST depression in lead II and V4-V6. Dr. White has reviewed and interpreted this EKG. Abdominal Pain Fem Course/Dx - Course Course Of Treatment: Patient is a 64 y/o F presenting to the ED via EMS for a chief complaint of abdominal pain and chest pain. Per EMS, patient has also had nausea and vomiting described as dry heaving. Patient also reports shortness of breath. She denies fever. The chest pain is described as a pressure sensation. PMHx is significant for HTN, 3 LA, breast cancer in remission, and achalasia, but denies history of DM or SBO. PSHx is significant for stent placement, abdominal surgery, and port placement. On exam, patient appears weak, port noted in the left upper chest, feeding tube noted, s/p left mastectomy, abdomen soft and non-distended, epigastric tenderness. In the ED course, patient was given Aprasoline 10 mg IV SLOW, Dilaudid 1 mg IV, Zofran 4 mg IV, and IV fluids. EKG at 07:52 shows normal sinus rhythm with slight ST depression in lead II and V4-V6. Chest X-ray IMPRESSION: NO ACTIVE CARDIOPULMONARY DISEASE. Laboratory abnormal findings: potassium 3.1, lactic acid 2.9, magnesium 1.5. Repeat lactic 2.4. All other abnormal lab results are not pertinent to current cc. At 08:50, I discussed admission vs consultation with Dr. Rylee Valadez. At 14:24, Dr. Lj Galindo states that they will send a tool down to clean out the patients feeding tube which is clogged. Patient will be discharged with a diagnosis of multiple electrolyte abnormality, vomiting, hypertension, and chronic pain. Follow up with PCP in 1-2 days. - Diagnoses Provider Diagnoses: Electrolyte abnormality, Vomiting, Chronic pain, Hypertension - Provider Notifications Discussed Care Of Patient With: Rylee Valadez - At 08:50, I discussed admission vs consultation with Dr. Rylee Valadez. At 14:24, Dr. Lj Galindo states that they will send a tool down to clean out the patients feeding tube which is clogged. Time Discussed With Above Provider: 08:50 Discharge ED - Sign-Out/Discharge Documenting (check all that apply): Patient Departure - Discharge - Discharge Plan Condition: Stable Disposition: HOME Patient Education Materials: Hypertension (ED) Referrals: Trish Combs MD [Primary Care Provider] - Additional Instructions: RETURN TO THE EMERGENCY DEPARTMENT FOR CHANGING OR WORSENING SYMPTOMS. Follow up with your primary care physician in 1-2 days. - Billing Disposition and Condition Condition: STABLE Disposition: Home - Attestation Statements Document Initiated by Kiarra: Yes Documenting Kiarra: Celena Coleman Provider For Whom Kiarra is Documenting (Include Credential): DO Mariely Solomonibzakiya Attestation: Celena Chatterjee scribed for Dionicio White DO on 01/19/20 at 1559. Scribe Documentation Reviewed: Yes Provider Attestation: The documentation as recorded by the Celena vyas accurately reflects the service I personally performed and the decisions made by me, Dionicio White DO Status of Scrkarlie Document: Viewed
[2020-01-19 07:55] LABS: ABS Lymphocytes 0.9 10^3/ul (1.0-4.8); ABS Monocytes 0.5 10^3/ul (0-0.8); ABS Neutrophils 9.3 10^3/ul (1.5-7.7); Hematocrit 43 % (35-47); Hemoglobin 14.8 g/dL (12.0-16.0); Mean Corpuscular HGB Conc 34 g/dL (31-36); Mean Corpuscular Hemoglobin 28 pg (27-31); Mean Corpuscular Volume 82 fL (80-97); Platelet Count 319 10^3/uL (150-450); Red Blood Count 5.29 10^6 /uL (3.70-4.87); Red Cell Distribution Width 16 % (10-15); White Blood Count 10.7 10^3/uL (3.5-10.8)
[2020-01-19] MEDS ORDERED: hydrALAZINE IV* 20 MG/ML VIAL IV SLOW PU ONE (08:00)
[2020-01-19 08:13] LABS: Albumin 4.3 g/dL (3.2-5.2); Albumin/Globulin Ratio 1.2 (1-3); Calcium 9.1 mg/dL (8.6-10.3); EGFR African American 92.7 (>60); EGFR Non-African American 76.6 (>60); Globulin 3.7 g/dL (2-4); Magnesium 1.5 mg/dL (1.9-2.7); Potassium 3.1 mmol/L (3.5-5.0); Total Bilirubin 0.5 mg/dL (0.2-1.0)
[2020-01-19 08:15] LABS: Troponin I 0.01 ng/mL (<0.03)
[2020-01-19] MEDS ORDERED: Magnesium Sulfate 1 GM IV* 1 GM/100 ML BAG IV ONE ×2 (08:17→09:08)
--- OUTSIDE RECORDS SUMMARY | 2020-01-19 08:22 | XMS REPORT | Continuity of Care Document ---
:1955 External Reference #:[id number] Author Name Rock Domínguez M.D., [facility], [facility] (transmitted by agent of provider Delmi Arreola) Address [address] [phone] Care Team Providers Name Role Phone Trish Combs MD - Family Care Team Information Editorial Cartoonist [phone] Medicine Problems Active Problems Provider Date Chest pain Rock Domínguez M.D., [facility], Onset: 12/02/2013 [facility] Syncope and collapse Rock Domínguez M.D., [facility], Onset: 09/03/2014 [facility] Arthralgia of the lower leg Benny Celeste M.D. Onset: 04/05/2015 Derangement of knee Benny Celeste M.D. Onset: 04/05/2015 Coronary arteriosclerosis Rock Domínguez M.D., [facility], Onset: 05/09/2015 [facility] Achalasia of esophagus Benny Celeste M.D. Onset: 11/24/2015 Localized, primary osteoarthritis Benny Celeste M.D. Onset: 11/24/2015 Atherosclerotic heart disease of Rock Domínguez M.D., [facility], Onset: 2015 sun'aq coronary artery with other [facility] forms of angina pectoris Essential hypertension Rock Domínguez M.D., [facility], Onset: 02/14/2016 [facility] Arthroplasty of knee Benny Celeste M.D. Onset: 03/29/2016 Abdominal pain Taylor Hutchison NP Onset: 04/16/2018 Chronic obstructive lung disease Tennille Sierra N.P. Onset: 04/17/2018 Hypokalemia Liss Chandler NP Onset: 06/16/2018 Nausea and vomiting Liss Gila Chandler NP Onset: 06/16/2018 Acute renal failure syndrome Taylor Hutchison NP Onset: 06/17/2018 Pulmonary hypertension Rock Domínguez M.D., [facility], Onset: 05/08/2019 [facility] Social History Type Date Description Comments [...] SIG Qnty Indications Ordering Date Provider Madonna Bustillot one tab by mouth 30tabs Benny 03/23/2016 4mg Tablets every 8 hours as Ramon Celeste Dispers needed for nausea Losartan Potassium 1 by mouth every day 90tabs Rock Mcgee 02/14/2016 Ramon Domínguez, 100mg Tablets [facility], [facility] Atrovent HFA 2 puff by mouth up to Unknown 17mcg/Act every 6 hours as Aerosol needed for shortness of breath/wheezing Spironolactone 1 by mouth every day Unknown 25mg am Tablets Azelastine HCL 2 spray each nostril Unknown (Nasal) once a day 137mcg/[place] Solution Lorazepam 1-2 tabs q hs for [...] kg/m2 Ejection Fraction 60-65% echo 04/02/19 Results Test Acquired Date Facility Test Result H/L Range Note Order 12/21/2019 [employer] In-House Stress Test, Pharmacologic <pending> Nuclear (Lexiscan) Procedures Date Code Description Status 12/21/2019 85551 Treadmill Interp/Report Only Completed 12/21/2019 69533 Stress Test Supervsn W/Out I/R Completed 12/21/2019 88282 EKG, Interpretation Only Completed 12/20/2019 82989 EKG, Interpretation Only Completed 12/19/2019 66279 EKG, Interpretation Only Completed 11/13/2019 28019 EKG Tracing & Interpretation Completed 10/26/2019 56966 ECHO Transthorasic Realtime 2D W Doppler & Color Flow Hosp Completed 10/26/2019 39472 EKG, Interpretation Only Completed 09/09/2019 89923 EKG, Interpretation Only Completed 09/08/2019 96342 ECHO Transthorasic Realtime 2D W Doppler & Color Flow Hosp Completed 09/08/2019 77448 EKG, Interpretation Only Completed Medical Devices Description No Information Available Encounters Type Date Location Provider Dx Diagnosis Office Visit 12/23/2019 [facility] I16.0 Hypertensive 10:10a Assocro[facility]iguez PA urgency Hospitalists R07.9 Chest pain, unspecified Office Visit 12/22/2019 [facility] R07.9 Chest pain, 10:09a Assocrodriguez PA unspecified Hospitalists G89.29 Other chronic pain E87.8 Oth disorders of electrolyte and fluid balance, NEC K22.0 Achalasia of cardia R11.2 Nausea with vomiting, unspecified I10 Essential (primary) hypertension Office Visit 12/21/2019 10:08a [facility] Aravind R07.9 Chest pain, Assocrodriguez PA unspecified Hospitalists G89.29 Other chronic pain E87.8 Oth disorders of electrolyte and fluid balance, NEC R79.89 Other specified abnormal findings of blood chemistry I10 Essential (primary) hypertension K22.0 Achalasia of cardia R11.2 Nausea with vomiting, unspecified Office Visit 12/20/2019 10:08a [facility] R07.9 Chest pain, Assoc,rodriguez Roberts PA unspecified Hospitalists G89.29 Other chronic pain E87.8 Oth disorders of electrolyte and fluid balance, NEC R79.89 Other specified abnormal findings of blood chemistry I10 Essential (primary) hypertension K22.0 Achalasia of cardia R11.2 Nausea with vomiting, unspecified Office Visit 12/19/2019 10:07a [facility] Tennille Sierra, R07.9 Chest pain , Assoc,pc N.P. unspecified Hospitalists I10 Essential (primary) hypertension Office Visit 11/13/2019 1:45p [facility] Rokc Mcgee R07.9 Chest pain, Of Dwight Domínguez M.D., unspecified [facility], [facility] I25.10 Athscl heart disease of sun'aq coronary artery w/o ang pctrs R94.31 Abnormal electrocardiogram [ECG] [EKG] Office Visit 10/27/2019 9:15a [facility] Laura Darvin, G92 Toxic encephalopathy Assoc,pc [employer] Hospitalists N39.0 Urinary tract infection, site not specified Office Visit 10/26/2019 9:14a [facility] Yumiko G92 Toxic encephalopathy Assoc,pc Leda Milan Hospitalists K22.0 Achalasia of cardia I25.10 Athscl heart disease of sun'aq coronary artery w/o ang pctrs I10 Essential (primary) hypertension G89.29 Other chronic pain K21.9 Gastro-esophageal reflux disease without esophagitis Z72.0 Tobacco use Office Visit 10/25/2019 9:14a [facility] Kimo G92 Toxic encephalopathy Assoc,rodriguez Castanon M.D. Hospitalists R44.3 Hallucinations, unspecified I16.0 Hypertensive urgency R09.02 Hypoxemia E43 Unspecified severe protein-calorie malnutrition Z93.1 Gastrostomy status Office Visit 09/10/2019 10:07a [facility] Rosibel K22.0 Achalasia of Assoc,pc JAIME Cisneros cardia Hospitalists R10.10 Upper abdominal pain, unspecified I16.0 Hypertensive urgency R07.9 Chest pain, unspecified Office Visit 09/08/2019 10:05a [facility] Tunde Burt, I16.0 Hypertensive Assoc,pc urgency Hospitalists K22.0 Achalasia of cardia R07.9 Chest pain, unspecified R10.10 Upper abdominal pain, unspecified Assessments Date Code Description Provider 12/23/2019 I16.0 Hypertensive urgency CRISTINA Olivarez 12/23/2019 R07.9 Chest pain, unspecified Divina Hernandez, PA 12/22/2019 R07.9 Chest pain, unspecified Divina Hernandez, PA 12/22/2019 G89.29 Other chronic pain Divina Hernandez, PA 12/22/2019 E87.8 Other disorders of electrolyte and Divina Mary, PA fluid balance, not elsewhere classified 12/22/2019 K22.0 Achalasia of cardia Divinavitaliy Hernandez, PA 12/22/2019 R11.2 Nausea with vomiting, unspecified Divina Hernandez, PA 12/22/2019 I10 Essential (primary) hypertension Divinavitaliy Hernandez, PA 12/21/2019 R07.9 Chest pain, unspecified Erick Madrid, DO [facility] 12/21/2019 R07.9 Chest pain, unspecified Aravind [place], [place] 12/21/2019 G89.29 Other chronic pain Aravind Armando, PA 12/21/2019 E87.8 Other disorders of electrolyte and Aravind Armando, PA fluid balance, not elsewhere classified 12/21/2019 R79.89 Other specified abnormal findings of Aravind Roberts, PA blood chemistry 12/21/2019 I10 Essential (primary) hypertension Aravind Roberts, PA 12/21/2019 K22.0 Achalasia of cardia Aravind Armando, PA 12/21/2019 R11.2 Nausea with vomiting, unspecified Aravind [place], [place] 12/21/2019 R07.9 Chest pain, unspecified Chato Del Angel MD, [facility], [facility] 12/20/2019 R94.31 Abnormal electrocardiogram [ECG] [EKG] Rock Domínguez M.D., [facility], [facility] 12/20/2019 R07.9 Chest pain, unspecified Aravind [place], [place] 12/20/2019 G89.29 Other chronic pain Aravind Armando, PA 12/20/2019 E87.8 Other disorders of electrolyte and Aravind Armando, PA fluid balance, not elsewhere classified 12/20/2019 R79.89 Other specified abnormal findings of Aravind Roberts, PA blood chemistry 12/20/2019 I10 Essential (primary) hypertension Aravind Roberts, PA 12/20/2019 K22.0 Achalasia of cardia Aravind Armando, PA 12/20/2019 R11.2 Nausea with vomiting, unspecified CRISTINA Doty 12/19/2019 R94.31 Abnormal electrocardiogram [ECG] [EKG] Rock Domínguez M.D., [facility], [facility] 12/19/2019 R07.9 Chest pain, unspecified Tennille Sierra, N.P. 12/19/2019 I10 Essential (primary) hypertension Tennille Sierra, N.P. 11/13/2019 R07.9 Chest pain, unspecified Rock Domínguez M.D., [facility], [facility] 11/13/2019 I25.10 Atherosclerotic heart disease of Rock Domínguez M.D., [facility], sun'aq coronary artery without angina [facility] pectoris 11/13/2019 R94.31 Abnormal electrocardiogram [ECG] [EKG] Rock Domínguez M.D., [facility], [facility] 10/27/2019 G92 Toxic encephalopathy Laura Darvin, [employer] 10/27/2019 N39.0 Urinary tract infection, site not Laura Darvin, [employer] specified 10/26/2019 R94.31 Abnormal electrocardiogram [ECG] [EKG] Neisha Garcia M.D. 10/26/2019 R94.31 Abnormal electrocardiogram [ECG] [EKG] Eugene Talley M.D. 10/26/2019 G92 Toxic encephalopathy Yumiko Bjorn, D.O. 10/26/2019 K22.0 Achalasia of cardia Yumiko Milan, D.O. 10/26/2019 I25.10 Atherosclerotic heart disease of Yumiko Milan D.O. sun'aq coronary artery without angina pectoris 10/26/2019 I10 Essential (primary) hypertension Yumiko Bjorn, D.O. 10/26/2019 G89.29 Other chronic pain Yumiko Bjonr, D.O. 10/26/2019 K21.9 Gastro-esophageal reflux disease Yumiko Bjorn, D.O. without esophagitis 10/26/2019 Z72.0 Tobacco use Yumiko Bjorn, D.O. 10/25/2019 G92 Toxic encephalopathy Kimo Castanon M.D. [...] Garcia M.D. 09/08/2019 I16.0 Hypertensive urgency Tunde Burt MD 09/08/2019 K22.0 Achalasia of cardia Tunde Burt MD 09/08/2019 R07.9 Chest pain, unspecified Eugene Talley M.D. 09/08/2019 R07.9 Chest pain, unspecified Tunde Burt MD 09/08/2019 R10.10 Upper abdominal pain, unspecified Tunde Burt MD Plan of Treatment 11/13/2019 - Rock Domínguez M.D., [facility], ZSBCLM47.9 Chest pain, unspecifiedComments:As discussed, we will recheck your stress test. Overall I feel your blood pressure is okay and if stays increased, could increase your Imdur further with your PCP (which may also help with your esophageal spasm). Your echo findings are stable. Please continue to stay hydrated.Follow up:after NLMI25.10 Atherosclerotic heart disease of sun'aq coronary artery without angina qzwaxcebV84.31 Abnormal electrocardiogram [ECG] [EKG] Functional Status Description No Information Available Mental Status Description No Information Available Referrals Description No Information Available
--- OUTSIDE RECORDS SUMMARY | 2020-01-19 08:22 | XMS REPORT | Continuity of Care Document ---
:1955 External Reference #:[id number] Author Name Chato Del Angel MD, [facility], 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 Onset: 04/05/2015 Derangement of knee Benny Celeste M.D. Onset: 04/05/2015 Coronary arteriosclerosis Rock Domínguez M.D., [facility], Onset: 05/09/2015 [facility] Achalasia of esophagus Benny Celeste M.D. Onset: 11/24/2015 Localized, primary osteoarthritis Benny Celeste M.D. Onset: 11/24/2015 Atherosclerotic heart disease of Rock Domínguez M.D., [facility], Onset: 2015 andreafski coronary artery with other [facility] forms of angina pectoris Essential hypertension Rock Domínguez M.D., [facility], Onset: 02/14/2016 [facility] Arthroplasty of knee Benny Celeste M.D. Onset: 03/29/2016 Abdominal pain Taylor Hutchison NP Onset: 04/16/2018 Chronic obstructive lung disease Tennille Sierra N.Galilea. Onset: 04/17/2018 Hypokalemia Liss Chandler NP Onset: 06/16/2018 Nausea and vomiting Liss Chandler, DAYNE Onset: 06/16/2018 Acute renal failure syndrome Taylor Hutchison, DAYNE Onset: 06/17/2018 Pulmonary hypertension Rock Domínguez M.D., [facility], Onset: 05/08/2019 [facility] Social History Type Date Description [...] Rock Mcgee 02/14/2016 Ramon Domínguez, 100mg Tablets [facility] Atrovent HFA 2 puff by mouth up to Unknown 17mcg/Act every 6 hours as Aerosol needed for shortness of breath/wheezing Spironolactone 1 by mouth every day Unknown 25mg am Tablets Azelastine HCL 2 spray each nostril Unknown (Nasal) once a day 137mcg/[place] Solution Lorazepam 1-2 tabs q hs for [...] Test Result H/L Range Note Order 12/21/2019 [employer] In-House Stress Test, Pharmacologic <pending> Nuclear (Lexiscan) Procedures Date Code Description Status 12/21/2019 57797 Treadmill Interp/Report Only Completed 12/21/2019 92003 Stress Test Supervsn W/Out I/R Completed 11/13/2019 99931 EKG Tracing & Interpretation Completed 10/26/2019 39662 ECHO Transthorasic Realtime 2D W Doppler & Color Flow Hosp Completed 10/26/2019 33323 EKG, Interpretation Only Completed 09/09/2019 55711 EKG, Interpretation Only Completed 09/08/2019 84635 ECHO Transthorasic Realtime 2D W Doppler & Color Flow Hosp Completed 09/08/2019 88996 EKG, Interpretation Only Completed Medical Devices Description No Information Available Encounters Type Date Location Provider Dx Diagnosis [facility] 10:10a Assoc,CRISTINA Raman urgency Hospitalists R07.9 Chest pain, unspecified [facility]9 Chest pain, 10:09a Assoc,CRISTINA Raman unspecified Hospitalists G89.29 Other chronic pain E87.8 Oth disorders of electrolyte and fluid balance, NEC K22.0 Achalasia of cardia R11.2 Nausea with vomiting, unspecified I10 Essential (primary) hypertension Office Visit 12/21/2019 10:08a [facility] Aravind R07.9 Chest pain, Assoc,rodriguez Roberts PA unspecified Hospitalists G89.29 Other chronic pain E87.8 Oth disorders of electrolyte and fluid balance, NEC R79.89 Other specified abnormal findings of blood chemistry I10 Essential (primary) hypertension K22.0 Achalasia of cardia R11.2 Nausea with vomiting, unspecified Office Visit 12/20/2019 10:08a [facility] Aravind R07.9 Chest pain, Assoc,pc Armando PA unspecified Hospitalists G89.29 Other chronic pain E87.8 Oth disorders of electrolyte and fluid balance, NEC R79.89 Other specified abnormal findings of blood chemistry I10 Essential (primary) hypertension K22.0 Achalasia of cardia R11.2 Nausea with vomiting, unspecified Office Visit 12/19/2019 10:07a [facility] Tennille Sierra, R07.9 Chest pain , Assoc,pc N.P. unspecified Hospitalists I10 Essential (primary) hypertension Office Visit 11/13/2019 1:45p [facility] Rock Everardo R07.9 Chest pain, Of Dwight Domínguez M.D., unspecified FAC, [facility] I25.10 Athscl heart disease of andreafski coronary artery w/o ang pctrs R94.31 Abnormal electrocardiogram [ECG] [EKG] Office Visit 10/27/2019 9:15a [facility] Laura Darvin, G92 Toxic encephalopathy Assoc,pc [employer] Hospitalists N39.0 Urinary tract infection, site not specified Office Visit 10/26/2019 9:14a [facility] Yumiko G92 Toxic encephalopathy Assoc,pc Leda Milan Hospitalists K22.0 Achalasia of cardia I25.10 Athscl heart disease of andreafski coronary artery w/o ang pctrs I10 Essential (primary) hypertension G89.29 Other chronic pain K21.9 Gastro-esophageal reflux disease without esophagitis Z72.0 Tobacco use Office Visit 10/25/2019 9:14a [facility] Kimo G92 Toxic encephalopathy Assoc,rodriguez Castanon M.D. Hospitalists R44.3 Hallucinations, unspecified I16.0 Hypertensive urgency R09.02 Hypoxemia E43 Unspecified severe protein-calorie malnutrition Z93.1 Gastrostomy status Office Visit 09/10/2019 10:07a [facility] Rosibel K22.0 Achalasia of Assoc,pc JAIME Cisneros cardia Hospitalists R10.10 Upper abdominal pain, unspecified I16.0 Hypertensive urgency R07.9 Chest pain, unspecified Office Visit 09/08/2019 10:05a [facility] Tunde Burt, I16.0 Hypertensive Assoc,pc urgency Hospitalists K22.0 Achalasia of cardia R07.9 Chest pain, unspecified R10.10 Upper abdominal pain, unspecified Assessments Date Code Description Provider 12/23/2019 I16.0 Hypertensive urgency CRISTINA Olivarez 12/23/2019 R07.9 Chest pain, unspecified CRISTINA Olivarez 12/22/2019 R07.9 Chest pain, unspecified CRISTINA Olivarez 12/22/2019 G89.29 Other chronic pain Divina Hernandez, PA 12/22/2019 E87.8 Other disorders of electrolyte and Divina Hernandez PA fluid balance, not elsewhere classified 12/22/2019 K22.0 Achalasia of cardia Divinavitaliy Hernandez, PA 12/22/2019 R11.2 Nausea with vomiting, unspecified Divinavitaliy Hernandez, PA 12/22/2019 I10 Essential (primary) hypertension Divina Hernandez, PA 12/21/2019 R07.9 Chest pain, unspecified Aravind Armando, PA 12/21/2019 G89.29 Other chronic pain Aravind Armando, PA 12/21/2019 E87.8 Other disorders of electrolyte and Aravind Armando, PA fluid balance, not elsewhere classified 12/21/2019 R79.89 Other specified abnormal findings of Aravind Roberts PA blood chemistry 12/21/2019 I10 Essential (primary) hypertension Aravind Roberts, PA 12/21/2019 K22.0 Achalasia of cardia Aravind Roberts, PA 12/21/2019 R11.2 Nausea with vomiting, unspecified Aravind Armando, PA 12/21/2019 R07.9 Chest pain, unspecified Chato Del Angel MD, [facility], [facility] 12/20/2019 R07.9 Chest pain, unspecified Aravind Garrett, PA 12/20/2019 G89.29 Other chronic pain Aravind Roberts, PA 12/20/2019 E87.8 Other disorders of electrolyte and Aravind Garrett, PA fluid balance, not elsewhere classified 12/20/2019 R79.89 Other specified abnormal findings of Aravind Roberts PA blood chemistry 12/20/2019 I10 Essential (primary) hypertension Aravind Roberts, PA 12/20/2019 K22.0 Achalasia of cardia Aravind Armando, PA 12/20/2019 R11.2 Nausea with vomiting, unspecified Aravind Roberts, PA 12/19/2019 R07.9 Chest pain, unspecified Tennille Sierra, N.P. 12/19/2019 I10 Essential (primary) hypertension Tennille Sierra, N.P. 11/13/2019 R07.9 Chest pain, unspecified Rock Domínguez M.D., [facility], [facility] 11/13/2019 I25.10 Atherosclerotic heart disease of Rock Domínguez M.D., [facility], andreafski coronary artery without angina [facility] pectoris 11/13/2019 R94.31 Abnormal electrocardiogram [ECG] [EKG] Rock Domínguez M.D., [facility], [facility] 10/27/2019 G92 Toxic encephalopathy Laura Darvin, [employer] 10/27/2019 N39.0 Urinary tract infection, site not Laura Darvin, [employer] specified 10/26/2019 R94.31 Abnormal electrocardiogram [ECG] [EKG] Neisha Garcia M.D. 10/26/2019 R94.31 Abnormal electrocardiogram [ECG] [EKG] Eugene Talley M.D. 10/26/2019 G92 Toxic encephalopathy Dionicio Urias.OEusebio 10/26/2019 K22.0 Achalasia of cardia Yumiko Milan D.OEusebio 10/26/2019 I25.10 Atherosclerotic heart disease of Dionicio Urias.OEusebio andreafski coronary artery without angina pectoris 10/26/2019 I10 Essential (primary) hypertension Dionicio Urias.O. 10/26/2019 G89.29 Other chronic pain Yumiko Milna D.OEusebio 10/26/2019 K21.9 Gastro-esophageal reflux disease Yumiko Milan D.O. without esophagitis 10/26/2019 Z72.0 Tobacco use Yumiko Milan D.O. 10/25/2019 G92 Toxic encephalopathy Kimo Castanon M.D. 10/25/2019 R44.3 Hallucinations, unspecified Kimo Castanon M.D. 10/25/2019 I16.0 Hypertensive urgency Kimo Castanon M.D. 10/25/2019 R09.02 Hypoxemia Kimo Castanon M.D. 10/25/2019 E43 Unspecified severe protein-calorie Kimo Castanon M.D. malnutrition 10/25/2019 Z93.1 Gastrostomy status Kimo Castanon M.D. 09/10/2019 K22.0 Achalasia of cardia Rosibel Cisneros PA-C 09/10/2019 R10.10 Upper abdominal pain, unspecified Rosibel Cisneros PA-C 09/10/2019 I16.0 Hypertensive urgency Rosibel Cisneros PA-C 09/10/2019 R07.9 Chest pain, unspecified Rosibel [...] Appointment(s):01/20/2020 10:45 am - Rock Domínguez M.D., [facility], [facility] at [facility]11/13/2019 - Rock Domínguez M.D., [facility], HHTIEK77.9 Chest pain, unspecifiedComments:As discussed, we will recheck your stress test. Overall I feel your blood pressure is okay and if stays increased, could increase your Imdur further with your PCP (which may also help with your esophageal spasm). Your echo findings are stable. Please continue to stay hydrated.Follow up:after NLMI25.10 Atherosclerotic heart disease of andreafski coronary artery without angina bomysodcV79.31 Abnormal electrocardiogram [ECG] [ EKG] Functional Status Description No Information Available Mental Status Description No Information Available Referrals Description No Information Available
--- OUTSIDE RECORDS SUMMARY | 2020-01-19 08:22 | XMS REPORT | Continuity of Care Document ---
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 Onset: 04/05/2015 Derangement of knee Benny Celeste M.D. Onset: 04/05/2015 Coronary arteriosclerosis Rock Domínguez M.D., [facility], Onset: 05/09/2015 FASNC Achalasia of esophagus Benny Celeste M.D. Onset: 11/24/2015 Localized, primary osteoarthritis Benny Celeste M.D. Onset: 11/24/2015 Atherosclerotic heart disease of Rock Domínguez M.D., [facility], Onset: 2015 ewiiaapaayp coronary artery with other [facility] forms of angina pectoris Essential hypertension Rock Domínguez M.D., [facility], Onset: 02/14/2016 FASNC Arthroplasty of knee Benny Celeste M.D. Onset: 03/29/2016 Abdominal pain Taylor Hutchison NP Onset: 04/16/2018 Chronic obstructive lung disease Tennille Sierra N.P. Onset: 04/17/2018 Hypokalemia Liss Chandler NP Onset: 06/16/2018 Nausea and vomiting Liss Gila Chandler NP Onset: 06/16/2018 Acute renal failure syndrome Taylor Hutchison NP Onset: 06/17/2018 Pulmonary hypertension Rock Domínguez M.D., [facility], Onset: 05/08/2019 [facility] Social History Type Date Description Comments [...] Rock Mcgee 02/14/2016 Ramon Domínguez, 100mg Tablets [facility], [facility] Atrovent HFA 2 puff by mouth up to Unknown 17mcg/Act every 6 hours as Aerosol needed for shortness of breath/wheezing Spironolactone 1 by mouth every day Unknown 25mg am Tablets Azelastine HCL 2 spray each nostril Unknown (Nasal) once a day 137mcg/[place] Solution Lorazepam 1-2 tabs q hs for [...] Test Result H/L Range Note Order 12/21/2019 [employer] In-House Stress Test, Pharmacologic <pending> Nuclear (Lexiscan) Procedures Date Code Description Status 12/21/2019 54448 Treadmill Interp/Report Only Completed 12/21/2019 24851 Stress Test Supervsn W/Out I/R Completed 12/21/2019 04794 EKG, Interpretation Only Completed 12/20/2019 76039 EKG, Interpretation Only Completed 12/19/2019 46469 EKG, Interpretation Only Completed 11/13/2019 28545 EKG Tracing & Interpretation Completed 10/26/2019 10775 ECHO Transthorasic Realtime 2D W Doppler & Color Flow Hosp Completed 10/26/2019 38481 EKG, Interpretation Only Completed 09/09/2019 34903 EKG, Interpretation Only Completed 09/08/2019 42270 ECHO Transthorasic Realtime 2D W Doppler & Color Flow Hosp Completed 09/08/2019 93078 EKG, Interpretation Only Completed Medical Devices Description No Information Available Encounters Type Date Location Provider Dx Diagnosis Office Visit 12/23/2019 [facility] I16.0 Hypertensive 10:10a Assocrodriguez PA urgency Hospitalists R07.9 Chest pain, unspecified Office Visit 12/22/2019 [facility] R07.9 Chest pain, 10:09a Assocrodriguez PA unspecified Hospitalists G89.29 Other chronic pain E87.8 Oth disorders of electrolyte and fluid balance, NEC K22.0 Achalasia of cardia R11.2 Nausea with vomiting, unspecified I10 Essential (primary) hypertension Office Visit 12/21/2019 10:08a [facility] Aravind R07.9 Chest pain, Assocrodriguez PA unspecified Hospitalists G89.29 Other chronic pain E87.8 Oth disorders of electrolyte and fluid balance, NEC R79.89 Other specified abnormal findings of blood chemistry I10 Essential (primary) hypertension K22.0 Achalasia of cardia R11.2 Nausea with vomiting, unspecified Office Visit 12/20/2019 10:08a [facility] R07.9 Chest pain, Assoc,rodriguez Roberts PA unspecified Hospitalists G89.29 Other chronic pain E87.8 Oth disorders of electrolyte and fluid balance, NEC R79.89 Other specified abnormal findings of blood chemistry I10 Essential (primary) hypertension K22.0 Achalasia of cardia R11.2 Nausea with vomiting, unspecified Office Visit 12/19/2019 10:07a [facility] Tennille Sierra, R07.9 Chest pain , Assoc,pc N.P. unspecified Hospitalists I10 Essential (primary) hypertension Office Visit 11/13/2019 1:45p [facility] Rcok Mcgee R07.9 Chest pain, Of Dwight Domínguez M.D., unspecified FACC, FASNC I25.10 Athscl heart disease of ewiiaapaayp coronary artery w/o ang pctrs R94.31 Abnormal electrocardiogram [ECG] [EKG] Office Visit 10/27/2019 9:15a [facility] Laura Darvin, G92 Toxic encephalopathy Assoc,pc [employer] INS[employer]OR Hospitalists N39.0 Urinary tract infection, site not specified Office Visit 10/26/2019 9:14a [facility] Yumiko G92 Toxic encephalopathy Assoc,pc Leda Milan Hospitalists K22.0 Achalasia of cardia I25.10 Athscl heart disease of ewiiaapaayp coronary artery w/o ang pctrs I10 Essential (primary) hypertension G89.29 Other chronic pain K21.9 Gastro-esophageal reflux disease without esophagitis Z72.0 Tobacco use Office Visit 10/25/2019 9:14a [facility] Kimo G92 Toxic encephalopathy Assoc,rodriguez Castanon M.D. Hospitalists R44.3 Hallucinations, unspecified I16.0 Hypertensive urgency R09.02 Hypoxemia E43 Unspecified severe protein-calorie malnutrition Z93.1 Gastrostomy status Office Visit 09/10/2019 10:07a [facility] Rosibel K22.0 Achalasia of Assoc,pc JAIME Cisneros cardia Hospitalists R10.10 Upper abdominal pain, unspecified I16.0 Hypertensive urgency R07.9 Chest pain, unspecified Office Visit 09/08/2019 10:05a [facility] Tunde Burt, I16.0 Hypertensive Assoc,pc [...] R07.9 Chest pain, unspecified Erick Madrid, DO [facility] 12/21/2019 R07.9 Chest pain, unspecified Aravind [place], [place] 12/21/2019 G89.29 Other chronic pain Aravind Armando, PA 12/21/2019 E87.8 Other disorders of electrolyte and Aravind Armando, PA fluid balance, not elsewhere classified 12/21/2019 R79.89 Other specified abnormal findings of Aravind Roberts, PA blood chemistry 12/21/2019 I10 Essential (primary) hypertension Aravind Roberts, PA 12/21/2019 K22.0 Achalasia of cardia Aravind Armando, PA 12/21/2019 R11.2 Nausea with vomiting, unspecified Aravind [place], [place] 12/21/2019 R07.9 Chest pain, unspecified Chato Del Angel MD, [facility], [facility] 12/20/2019 R94.31 Abnormal electrocardiogram [ECG] [EKG] Rock Domínguez M.D., [facility], [facility] 12/20/2019 R07.9 Chest pain, unspecified Aravind [place], [place] 12/20/2019 G89.29 Other chronic pain Aravind [...] Abnormal electrocardiogram [ECG] [EKG] Rock Domínguez M.D., [facility], [facility] 12/19/2019 R07.9 Chest pain, unspecified Tennille Sierra, N.P. 12/19/2019 I10 Essential (primary) hypertension Tennille Sierra, N.P. 11/13/2019 R07.9 Chest pain, unspecified Rock Domínguez M.D., [facility], [facility] 11/13/2019 I25.10 Atherosclerotic heart disease of Rock Domínguez M.D., [facility], ewiiaapaayp coronary artery without angina FASNC pectoris 11/13/2019 R94.31 Abnormal electrocardiogram [ECG] [EKG] Rock Domínguez M.D., [facility], [facility] 10/27/2019 G92 Toxic encephalopathy Laura Darvin, [employer]OR 10/27/2019 N39.0 Urinary tract infection, site not Laura Darvin, [employer] INS[employer]OR specified 10/26/2019 R94.31 Abnormal electrocardiogram [ECG] [EKG] Neisha Garcia M.D. 10/26/2019 R94.31 Abnormal electrocardiogram [ECG] [EKG] Eugene Talley M.D. 10/26/2019 G92 Toxic encephalopathy Yumiko Bjorn, D.O. 10/26/2019 K22.0 Achalasia of cardia Yumiko Milan, D.O. 10/26/2019 I25.10 Atherosclerotic heart disease of Yumiko Milan D.O. ewiiaapaayp coronary artery without angina pectoris 10/26/2019 I10 Essential (primary) hypertension Yumiko Bjorn, D.O. 10/26/2019 G89.29 Other chronic pain Yumiko Bjorn, D.O. 10/26/2019 K21.9 Gastro-esophageal reflux disease Yumiko [...] PA-C 09/10/2019 R07.9 Chest pain, unspecified Rosibel O'ediwna, PA-C 09/09/2019 R94.31 Abnormal electrocardiogram [ECG] [EKG] [...] of Treatment 11/13/2019 - Rock Domínguez M.D., [facility], BBDVQJ70.9 Chest pain, unspecifiedComments:As discussed, we will recheck your stress test. Overall I feel your blood pressure is okay and if stays increased, could increase your Imdur further with your PCP (which may also help with your esophageal spasm). Your echo findings are stable. Please continue to stay hydrated.Follow up:after NLMI25.10 Atherosclerotic heart disease of ewiiaapaayp coronary artery without angina xkhxwlnbJ54.31 Abnormal electrocardiogram [ECG] [EKG] Functional Status Description No Information Available Mental Status Description No Information Available Referrals Description No Information Available
--- OUTSIDE RECORDS SUMMARY | 2020-01-19 08:22 | XMS REPORT ---
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 [id number] [place] coronary coronary artery w/o artery w/o ang pctrs ang pctrs Encounter Encounter Diagnosis Active Mercedez for for 07-07 Ingrahm attention attention [id number] to to gastrostomy gastrostomy Gastro-esop Gastro-esop Diagnosis Active Mercedez hageal hageal 07-07 Ingrahm reflux reflux [id number] disease disease without without esophagitis esophagitis Other Other Diagnosis Active Mercedez specified specified 07-07 Ingrahm arthritis, arthritis, [id number] unspecified unspecified site site Essential Essential Diagnosis Active Mercedez (primary) (primary) 07-07 Ingrahm hypertensio hypertensio [id number] n n halfway halfway Diagnosis Active Mercedez (current) (current) Ingrahm use of use of [id number] anticoagula anticoagula nts nts Nicotine Nicotine Diagnosis Active Mercedez dependence, dependence, Ingrahm cigarettes, cigarettes, [id number] uncomplicat uncomplicat ed ed Personal Personal Diagnosis Active Mercedez history of history of Ingrahm malignant malignant [id number] neoplasm of neoplasm of breast breast Prsnl hx of Prsnl hx of Diagnosis Active Mercedez TIA (TIA), TIA (TIA), Ingrahm and cereb and cereb [id number] infrc w/o infrc w/o resid resid deficits deficits Pain frequent Pain Mgmt Resolve 2018-11-26 Ana pain d 9 16:15:00 Don[place]han 13:30: [id number] 00 Pain severe pain Pain Mgmt Resolve 2018-11-26 Ana d 9 16:15:00 Don[place]han 13:30: [id number] 00 Endo/Han anti-coagul Endo/Han Resolve 2019-02-06 Ana ation d 07-07 11:15:00 Doniphan therapy 13:30: [id number] 00 Integument surgical Integument Resolve 2018-08-05 Rea wound d 07-07 13:35:00 Guidelli present 13:30: [id number] 00 Nutrition nutritional Nutrition Resolve 2019-01-02 Ana restriction d 07-07 10:00:00 Doniphan s 13:30: [id number] 00 Nutrition changing Nutrition Resolve 2019-01-02 Ana weight/appe d 07-07 10:00:00 Doniphan tite 13:30: [id number] 00 Nutrition nutritional Nutrition Resolve 2019-01-02 Ana risk d 07-07 10:00:00 Doniphan 13:30: [id number] 00 Nutrition enteral Nutrition Resolve 2019-02-06 Ana therapy d 07-07 11:15:00 Doniphan 13:30: [id number] 00 Safety structural Safety Resolve 2019-02-06 Ana barriers d 07-07 11:15:00 Doniphan present 13:30: [id number] 00 Safety fall risk Safety Resolve 2019-02-06 Ana factor d 07-07 11:15:00 Doniphan present 13:30: [id number] 00 Safety risk for Safety Resolve 2019-02-06 Ana hospitaliza d 07-07 11:15:00 Doniphan tion 13:30: [id number] 00 Medication potential Meds Resolve 2019-02-06 Ana clinically d 07-07 11:15:00 Doniphan significant 13:30: [id number] medication 00 issue Musculoskel requires Musculoske Resolve 2019-02-06 Ana etal human letal d 07-07 11:15:00 Doniphan assist to 13:30: [id number] leave home 00 IV IV present IV Resolve 2019-02-06 Rea d 9-30 11:15:00 Lissette [id number] Respiratory dyspnea Respirator Resolve 2017-102019-02-06 Mercedez present y d 0-16 11:15:00 Ingrahm 13:35: [id number] 00 Neuro confusion Neuro/Emot Unknown 2017-10 Mercedez present ion 0-16 Ingrahm 13:35: [id number] 00 Neuro depressive Neuro/Emot Unknown 2017-10 Mercedez feelings ion 0-16 Ingrahm present 13:35: [id number] 00 Safety can be left Safety Resolve 2017-102019-02-06 Mercedez alone for d 0-18 11:15:00 Ingrahm only short 08:10: [id number] periods 00 Integument surgical Integument Resolve 2017-102018-10-30 Shila wound d 1-15 10:10:00 Brian present 08:55: [id number] 00 Elimination GI drain or Eliminatio Resolve 2017-102019-02-06 Shila tube n d 1-15 11:15:00 Brian present 08:55: [id number] 00 Neuro anxiety Neuro/Emot Resolve 2017-102019-02-06 Shila present ion d 1-15 11:15:00 Brian 08:55: [id number] 00 Medication injectable Meds Resolve 2017-102019-02-06 Shila med d 1-15 11:15:00 Brian assistance 08:55: [id number] required 00 Safety fire risk Safety Resolve 2017-102019-02-06 Shila present d 1-15 11:15:00 Brian 13:00: [id number] 00 Elimination urinary Eliminatio Resolve 2019-02-06 Mercedez incontinenc n d - 11:15:00 Ingrahm e 14:20: [id number] 00 Pain frequent Pain Mgmt Resolve 2019-02-06 Mercedez pain d 2-15 11:15:00 Ingrahm 10:15: [id number] 00 Safety risk for Safety Unknown Leanna hospitaliza 02-06 Regeczi tion 15:45: [id number] 00 Respiratory lung sounds Respirator Resolve 2019-04-03 Leanna deficit y d 02-10 10:01:00 Regeczi 13:20: [id number] 00 Respiratory smoker Respirator Resolve 2019-04-03 Leanna y d 4-29 10:01:00 Regeczi 12:10: [id number] 00 Respiratory dyspnea Respirator Resolve 2019-06-05 Mercedez present y d 5-15 10:30:00 Ingrahm 09:00: [id number] 00 Integument surgical Integument Resolve 2019-03-27 Mercedez wound d 5-15 09:15:00 Ingrahm present 09:00: [id number] 00 Nutrition enteral Nutrition Resolve 2019-03-27 Mercedez therapy d -15 09:15:00 Ingrahm 09:00: [id number] 00 Elimination urinary Eliminatio Resolve 2019-04-10 Mercedez incontinenc n d 15 09:30:00 Ingrahm e 09:00: [id number] 00 Neuro confusion Neuro/Emot Resolve 2019-11-25 Mercedez present ion d 15 11:10:00 Ingrahm 09:00: [id number] 00 Neuro anxiety Neuro/Emot Resolve 2019-11-25 Mercedez present ion d 515 11:10:00 Ingrahm 09:00: [id number] 00 Neuro depressive Neuro/Emot Resolve 2019-11-25 Mercedez feelings ion d 15 11:10:00 Ingrahm present 09:00: [id number] 00 Neuro impaired Neuro/Emot Resolve 2019-11-25 Mercedez decision-ma ion d 15 11:10:00 [facility] sonali 09:00: [id number] 00 Activity self-care Activity Resolve 2019-05-20 Mercedez deficit d -15 11:15:00 Ingrahm 09:00: [id number] 00 Safety fall risk Safety Resolve 2019-07-17 Mercedez factor d 5-15 10:35:00 Ingrahm present 09:00: [id number] 00 Safety risk for Safety Resolve 2019-07-17 Mercedez hospitaliza d 5-15 10:35:00 Ingrahm tion 09:00: [id number] 00 Medication potential Meds Resolve 2019-03-27 Mercedez clinically d 5-15 09:15:00 Ingrahm significant 09:00: [id number] medication 00 issue Integument surgical Integument Resolve 2019-05-20 Mercedez wound d 7-12 11:15:00 Ingrahm present 10:00: [id number] 00 Nutrition enteral Nutrition Resolve 2019-06-26 Mercedez therapy d 7-12 10:35:00 Ingrahm 10:00: [id number] 00 Respiratory dyspnea Respirator Resolve 2019-08-07 Leanna present y d 06-26 10:25:00 Regeczi 10:35: [id number] 00 Respiratory smoker Respirator Resolve 2019-07-01 Leanna y d 06-26 10:15:00 Regeczi 10:35: [id number] 00 Endo/Han anti-coagul Endo/Han Resolve 2019-07-23 Leanna ation d 06-26 10:15:00 Regeczi therapy 10:35: [id number] 00 Elimination urinary Eliminatio Resolve 2019-07-23 Leanna incontinenc n d 06-26 10:15:00 Regeczi e 10:35: [id number] 00 Elimination nausea/vomi Eliminatio Resolve 2019-07-01 Leanna serranog n d 06-26 10:15:00 Regeczi 10:35: [id number] 00 Integument surgical Integument Resolve 2019-07-23 Mercedez wound d 9-11 10:15:00 Ingrahm present 10:15: [id number] 00 Nutrition enteral Nutrition Resolve 2019-07-23 Mercedez therapy d 07-01 10:15:00 Ingrahm 10:15: [id number] 00 Respiratory smoker Respirator Resolve 2019-07-16 Leanna y d 07-16 10:05:00 Regeczi 10:05: [id number] 00 Elimination diarrhea Eliminatio Resolve 2019-07-23 Leanna n d 07-17 10:15:00 Regeczi 10:35: [id number] 00 Cardio hypertensio Cardiovasc Resolve 2018-102019-07-30 Leanna olivares 0 10:00:00 Regeczi 10:15: [id number] 00 Safety risk for Safety Resolve 2018-102019-07-23 Leanna hospitaliza d 0-03 10:15:00 Regeczi tion 10:15: [id number] 00 24 Hr Diet knowledge/s NT: 24Hr Resolve 2018-102019-07-23 Wen kill Diet d 0-03 15:00:00 [place] deficit - 15:00: [id number] pt 00 Nutritional eating NT: Resolve 2018-102019-07-23 Wen Barrier difficultie Barriers d 0-03 15:00:00 [place] s present 15:00: [id number] Safety risk for Safety Resolve 2018-102019-08-07 Roseline hospitaliza d 0-04 10:25:00 [place] tion 14:00: [id number] 00 Social financial MURIEL: Active 2018-10 Roseline Services resource Social 0-04 [place] deficit Services 14:00: [id number] 00 Social support MURIEL: Active 2018-10 [facility] Services deficit Social 0-04 [place] Services 14:00: [id number] 00 Social knowledge/s MURIEL: Active 2018-10 Roseline Services kill Social 0-04 [place] deficit - Services 14:00: [id number] pt 00 Social financial MURIEL: Unknown 2018-10 Mercedez Services resource Social 0-10 Ingrahm deficit Services 15:00: [id number] 00 Social knowledge/s MURIEL: Unknown 2018-10 Mercedez Services kill Social 0-10 Ingrahm deficit - Services 15:00: [id number] pt 00 Respiratory lung sounds Respirator Resolve 2018-102019-08-07 Leanna deficit y d 0-18 10:25:00 Regeczi 10:25: [id number] 00 Respiratory dyspnea Respirator Resolve 2018-102019-10-23 Mercedez present y d 10-28 10:15:00 Ingrahm 11:00: [id number] 00 Integument surgical Integument Resolve 2018-102019-09-11 Mercedez wound d 10-28 09:50:00 Ingrahm present 11:00: [id number] 00 Nutrition enteral Nutrition Resolve 2018-102019-09-11 Mercedez therapy d 10-28 09:50:00 Ingrahm 11:00: [id number] 00 Elimination urinary Eliminatio Resolve 2018-102019-09-11 Mercedez incontinenc n d 10-28 09:50:00 Ingrahm e 11:00: [id number] 00 Safety fall risk Safety Resolve 2018-102019-09-11 Mercedez factor d 10-28 09:50:00 Ingrahm present 11:00: [id number] 00 Safety risk for Safety Resolve 2018-102019-09-23 Mercedez hospitaliza d 10-28 11:10:00 Ingrahm tion 11:00: [id number] 00 Safety risk for Safety Unknown 2018-10 Mercedez hospitaliza 11-24 Ingrahm tion 15:00: [id number] 00 Cardio hypertensio Cardiovasc Resolve 2019-11-25 Leanna n ular d 10-23 11:10:00 Regeczi 10:15: [id number] 00 Elimination urinary Eliminatio Resolve 2019-11-05 Leanna incontinenc n d 10-23 10:23:00 Regeczi e 10:15: [id number] 00 Elimination constipatio Eliminatio Resolve 2019-11-05 Leanna n n d 10-23 10:23:00 Regeczi 10:15: [id number] 00 Integument surgical Integument Resolve 2019-11-19 Mercedez wound d 10-28 10:50:00 Ingrahm present 10:50: [id number] 00 Nutrition enteral Nutrition Resolve 2019-11-25 Mercedez therapy d 10-28 11:10:00 Ingrahm 10:50: [id number] 00 Elimination UTI within Eliminatio Resolve 2019-11-05 Mercedez past 14 n d 10-28 10:23:00 Ingrahm days 10:50: [id number] 00 Activity self-care Activity Resolve 2019-11-05 Mercedez deficit d 10-28 10:23:00 Ingrahm 10:50: [id number] 00 Safety fall risk Safety Resolve 2019-11-05 Mercedez factor d 10-28 10:23:00 Ingrahm present 10:50: [id number] 00 Safety risk for Safety Resolve 2019-11-05 Mercedez hospitaliza d 10-28 10:23:00 Ingrahm tion 10:50: [id number] 00 Safety risk for Safety Active Roseline hospitaliza 2-12 [place] tion 11:00: [id number] 00 Nutrition enteral Nutrition Unknown Mercedez therapy 3- Ingrahm 08:45: [id number] 00 Integument surgical Integument Active Mercedez wound 12-24 Ingrahm present 08:45: [id number] 00 Neuro depressive Neuro/Emot Active Mercedez feelings ion - Ingrahm present 08:45: [id number] 00 Neuro confusion Neuro/Emot Active Mercedez present ion 3- Ingrahm 08:45: [id number] 00 Neuro anxiety Neuro/Emot Active Mercedez present ion 12-24 Ingrahm 08:45: [id number] 00 Safety fall risk Safety Active Mercedez factor 12-24 Ingrahm present 08:45: [id number] 00 Medication potential Meds Resolve 2019-12-29 Mercedez clinically d 12-24 10:15:00 Ingrahm significant 08:45: [id number] medication 00 issue Allergies, Adverse Reactions, Alerts Allergy Allergy Status Severity Reaction(s) Onset Inactive Treating Comments Name Type Date Date Clinician latex Base Active Unknown Hives Mercedez Ingredient 07-07 [facility] [id number] amoxicillin Base Active Unknown Anaphylaxis Mercedez Ingredient 07-07 [facility] [id number] bee venom Base Active Unknown Anaphylaxis Mercedez protein Ingredient 07-07 [facility] (honey bee) [id number] Botox Medication Active Unknown Anaphylaxis Mercedez Name ID 07-07 [facility] [id number] contrast Unknown Active Unknown Anaphylaxis Mercedez dye 07-07 [facility] [id number] Penicillins Allergen Active Unknown Anaphylaxis Mercedze Group 07-07 Ingrm [id number] shellfish Base Active Unknown Anaphylaxis Mercedez derived Ingredient 07-07 Ingrm [id number] adhesive Base Active Unknown Hives Mercedez tape Ingredient 07-07 [facility] [id number] nsaids Unknown Active Unknown stomach issues Mercedez 07-07 Ingrm [id number] oxycodone Base Active Unknown swelling Mercedez Ingredient 07-07 [facility] [id number] Betadine Medication Active Unknown Rash Mercedez Name ID 07-07 [facility] [id number] Hibiclens Medication Active Unknown Rash Mercedez Name ID 07-07 Janettegurpreet [id number] evironmenta Unknown Active Unknown hay fever, Rea l/seasonal watery eye, 07-07 Guidelli itching, [id number] sneeze, congestion povidone-io Base Active Unknown itching Rea dine Ingredient 07-07 Guidelli [id number] Iodine and Allergen Active Unknown Anaphylaxis Rea Iodide Group 07-07 Guidelli Containing [id number] Products albumin Base Active Unknown Anaphylaxis Rea colloid, Ingredient 07-07 Guidelli human [id number] fentanyl Base Active Unknown hallucinations Rea Ingredient 07-07 Guidelli [id number] Medications Ordered Filled Start Stop Current Ordering [...] Blegen Unknown Unknown mg/5 mL mg/5 mL 11-18- Tashia FINCH oral oral e solution solution [...] Unknown MINE 50 mg MINE 50 mg - 09-27 Tashia FINCH capsule capsule e ondansetron [...] FINCH tablet tablet e ipratropium ipratropium 2018-10- No [...] tablet mg tablet e ciprofloxac ciprofloxac 2018-10 No Blegen Unknown Unknown in 500 mg in 500 mg 11-18 Tashia FINCH tablet tablet e Spiriva Spiriva 2018-10 No Blegen Unknown Unknown Respimat Respimat 11-25 Tashia FINCH 2.5 2.5 e mcg/actuati mcg/actuati on solution on solution for for inhalation inhalation losartan losartan 2018-10 No Blegen Unknown Unknown 100 mg 100 mg 11-25 Tashia FINCH tablet tablet e azelastine azelastine [...] 100 unit/mL unit/mL intravenous intravenous syringe syringe morphine morphine Yes [place] Unknown Unknown concentrate concentrate 3-04 Douglas FINCH 100 mg/5 mL 100 mg/5 mL (20 mg/mL) (20 mg/mL) oral oral solution solution Vital Signs Vital Name Observation Time Observation Value Comments SYSTOLIC mm[Hg] 2020-01-12 18:11:02 172 mm[Hg] mm[Hg] Method: Sit SYSTOLIC mm[Hg] 2018-11-27 18:04:11 142 mm[Hg] mm[Hg] Method: Stand SYSTOLIC mm[Hg] 2019-06-27 18:07:43 122 mm[Hg] mm[Hg] Method: Lie DIASTOLIC mm[Hg] 2020-01-12 18:11:02 90 mm[Hg] mm[Hg] Method: Sit DIASTOLIC mm[Hg] 2018-11-27 18:04:11 84 mm[Hg] mm[Hg] Method: Stand DIASTOLIC mm[Hg] 2019-06-27 18:07:43 50 mm[Hg] mm[Hg] Method: Lie Procedures This patient has no known procedures. Results This patient has no known results.
--- OUTSIDE RECORDS SUMMARY | 2020-01-19 08:22 | XMS REPORT | Continuity of Care Document ---
:1955 External Reference #:[id number] Author Name Erick Madrid DO [facility] (transmitted by agent of provider Delmi Arreola) Address [facility] [place] [address] Care Team Providers Name Role Phone Trish Combs MD - Family Care Team Information Life Sciences Director [phone] Medicine Problems Active Problems Provider Date Chest [...] Domínguez M.D., [facility], Onset: 2015 [place] coronary artery with other FASNC forms of angina pectoris Essential hypertension Rock Domínguez M.D., [facility], Onset: 02/14/2016 FASNC Arthroplasty of knee Benny Celeste M.D. Onset: 03/29/2016 Abdominal pain Taylor Hutchison NP Onset: 04/16/2018 Chronic obstructive lung disease Tennille Sierra NOdalis. Onset: 04/17/2018 Hypokalemia Liss Chandler NP Onset: 06/16/2018 Nausea and vomiting Liss Chandler NP Onset: 06/16/2018 Acute renal failure syndrome Taylor Hutchison, DAYNE Onset: 06/17/2018 Pulmonary hypertension Rock Domínguez M.D., [facility], Onset: 05/08/2019 [facility] Social History Type Date Description Comments Sex [...] Rock Mcgee 02/14/2016 Ramon Domínguez, 100mg Tablets [facility] Atrovent HFA 2 puff by mouth up to Unknown 17mcg/Act every 6 hours as Aerosol needed for shortness of breath/wheezing Spironolactone 1 by mouth every day Unknown 25mg am Tablets Azelastine HCL 2 spray each nostril Unknown (Nasal) once a day 137mcg/[place] Solution Lorazepam 1-2 tabs q hs for [...] Test Result H/L Range Note Order 12/21/2019 [facility] In-House Stress Test, Pharmacologic <pending> Nuclear (Lexiscan) Procedures Date Code Description Status 12/21/2019 08174 Treadmill Interp/Report Only Completed 12/21/2019 84339 Stress Test Supervsn W/Out I/R Completed 12/21/2019 05486 EKG, Interpretation Only Completed 12/20/2019 20564 EKG, Interpretation Only Completed 12/19/2019 56699 EKG, Interpretation Only Completed 11/13/2019 45485 EKG Tracing & Interpretation Completed 10/26/2019 51557 ECHO Transthorasic Realtime 2D W Doppler & Color Flow Hosp Completed 10/26/2019 77362 EKG, Interpretation Only Completed 09/09/2019 21375 EKG, Interpretation Only Completed 09/08/2019 77400 ECHO Transthorasic Realtime 2D W Doppler & Color Flow Hosp Completed 09/08/2019 86083 EKG, Interpretation Only Completed Medical Devices Description No Information Available Encounters Type Date Location Provider Dx Diagnosis Office Visit 12/23/2019 [facility] I16.0 Hypertensive 10:10a Assoc,CRISTINA Raman urgency Hospitalists R07.9 Chest pain, unspecified Office Visit 12/22/2019 [facility] R07.9 Chest pain, 10:09a Assoc,CRISTINA Raman unspecified Hospitalists G89.29 Other chronic pain E87.8 Oth disorders of electrolyte and fluid balance, NEC K22.0 Achalasia of cardia R11.2 Nausea with vomiting, unspecified I10 Essential (primary) hypertension Office Visit 12/21/2019 10:08a [facility] R07.9 Chest pain, Assoc,CRISTINA Peraza unspecified Hospitalists G89.29 Other chronic pain E87.8 Oth disorders of electrolyte and fluid balance, NEC R79.89 Other specified abnormal findings of blood chemistry I10 Essential (primary) hypertension K22.0 Achalasia of cardia R11.2 Nausea with vomiting, unspecified Office Visit 12/20/2019 10:08a [facility] R07.9 Chest pain, Assoc,rodriguez Roberts PA unspecified Hospitalists G89.29 Other chronic pain E87.8 Oth disorders of electrolyte and fluid balance, NEC R79.89 Other specified abnormal findings of blood chemistry I10 Essential (primary) hypertension K22.0 Achalasia of cardia R11.2 Nausea with vomiting, unspecified Office Visit 12/19/2019 10:07a [facility] Tennille Sierra, R07.9 Chest pain , Assoc,pc N.P. unspecified Hospitalists I10 Essential (primary) hypertension Office Visit 11/13/2019 1:45p [facility] Rock Everardo R07.9 Chest pain, Of Dwight Domínguez M.D., unspecified FACC, FASNC I25.10 Athscl heart disease of [place] coronary artery w/o ang pctrs R94.31 Abnormal electrocardiogram [ECG] [EKG] Office Visit 10/27/2019 9:15a [facility] Laura Darvin, G92 Toxic encephalopathy Assoc,pc YEAST DISTILLER Hospitalists N39.0 Urinary tract infection, site not specified Office Visit 10/26/2019 9:14a [facility] Yumiko G92 Toxic encephalopathy Assoc,pc Leda Milan Hospitalists K22.0 Achalasia of cardia I25.10 Athscl heart disease of [place] coronary artery w/o ang pctrs I10 Essential (primary) hypertension G89.29 Other chronic pain K21.9 Gastro-esophageal reflux disease without esophagitis Z72.0 Tobacco use Office Visit 10/25/2019 9:14a [facility] Kimo G92 Toxic encephalopathy Assoc,rodriguez Castanon M.D. Hospitalists R44.3 Hallucinations, unspecified I16.0 Hypertensive urgency R09.02 Hypoxemia E43 Unspecified severe protein-calorie malnutrition Z93.1 Gastrostomy status Office Visit 09/10/2019 10:07a [facility] Rosibel K22.0 Achalasia of Assoc,pc JAIME Cisneros cardia Hospitalists R10.10 Upper abdominal pain, unspecified I16.0 Hypertensive urgency R07.9 Chest pain, unspecified Office Visit 09/08/2019 10:05a [facility] Tunde Burt, I16.0 Hypertensive Assoc,rodriguez FINCH urgency Hospitalists K22.0 Achalasia of cardia R07.9 Chest pain, unspecified R10.10 Upper abdominal pain, unspecified Assessments Date Code Description Provider 12/23/2019 I16.0 Hypertensive urgency CRISTINA Olivarez 12/23/2019 R07.9 Chest pain, unspecified Divina Hernandez, PA 12/22/2019 R07.9 Chest pain, unspecified Divina Hernandez, PA 12/22/2019 G89.29 Other chronic pain Divina Hernandez, PA 12/22/2019 E87.8 Other disorders of electrolyte and Divina Hernandez, PA fluid balance, not elsewhere classified 12/22/2019 K22.0 Achalasia of cardia Divinavitaliy Hernandez, PA 12/22/2019 R11.2 Nausea with vomiting, unspecified Divina Hernandez, PA 12/22/2019 I10 Essential (primary) hypertension Divinavitaliy Hernandez, PA 12/21/2019 R07.9 Chest pain, unspecified Erick Madrid, DO [facility] 12/21/2019 R07.9 Chest pain, unspecified Aravind Armando, PA 12/21/2019 G89.29 Other chronic pain Aravind [place], PA 12/21/2019 E87.8 Other disorders of electrolyte and Aravind Armando, PA fluid balance, not elsewhere classified 12/21/2019 R79.89 Other specified abnormal findings of Aravind [place], PA blood chemistry 12/21/2019 I10 Essential (primary) hypertension Aravind Armando, PA 12/21/2019 K22.0 Achalasia of cardia Aravind Armando, PA 12/21/2019 R11.2 Nausea with vomiting, unspecified Aravind [place], PA 12/21/2019 R07.9 Chest pain, unspecified Chato Del Angel MD, [facility], [facility] 12/20/2019 R94.31 Abnormal electrocardiogram [ECG] [EKG] Rock Domínguez M.D., [facility], [facility] 12/20/2019 R07.9 Chest pain, unspecified Aravind [place], PA 12/20/2019 G89.29 Other chronic pain Aravind Armando, PA 12/20/2019 E87.8 Other disorders of electrolyte and Aravind [place], PA fluid balance, not elsewhere classified 12/20/2019 R79.89 Other specified abnormal findings of Aravind Armando, PA blood chemistry 12/20/2019 I10 Essential (primary) hypertension Aravind Armando, PA 12/20/2019 K22.0 Achalasia of cardia Aravind Armando, PA 12/20/2019 R11.2 Nausea with vomiting, unspecified Aravind Armando, PA 12/19/2019 R94.31 Abnormal electrocardiogram [ECG] [EKG] Rock Domínguez M.D., [facility], [facility] 12/19/2019 R07.9 Chest pain, unspecified Tennille Sierra, N.P. 12/19/2019 I10 Essential (primary) hypertension Tennille Sierra, N.P. 11/13/2019 R07.9 Chest pain, unspecified Rock Domínguez M.D., [facility], [facility] 11/13/2019 I25.10 Atherosclerotic heart disease of Rock Domínguez M.D., [facility], [place] coronary artery without angina [facility] pectoris 11/13/2019 R94.31 Abnormal electrocardiogram [ECG] [EKG] Rock Domínguez M.D., [facility], [facility] 10/27/2019 G92 Toxic encephalopathy Laura Darvin, YE[facility] DISTILLER 10/27/2019 N39.0 Urinary tract infection, site not Laura Darvin, YEAST DISTILLER specified 10/26/2019 R94.31 Abnormal electrocardiogram [ECG] [EKG] Neisha Garcia M.D. 10/26/2019 R94.31 Abnormal electrocardiogram [ECG] [EKG] Eugene Talley M.D. 10/26/2019 G92 Toxic encephalopathy Yumiko Milan D.O. 10/26/2019 K22.0 Achalasia of cardia Yumiko Milan D.O. 10/26/2019 I25.10 Atherosclerotic heart disease of Yumiko Milan D.O. [place] coronary artery without angina pectoris 10/26/2019 I10 [...] of Treatment 11/13/2019 - Rock Domínguez M.D., [facility], AMUBKT26.9 Chest pain, unspecifiedComments:As discussed, we will recheck your stress test. Overall I feel your blood pressure is okay and if stays increased, could increase your Imdur further with your PCP (which may also help with your esophageal spasm). Your echo findings are stable. Please continue to stay hydrated.Follow up:after NLMI25.10 Atherosclerotic heart disease of [place] coronary artery without angina bblaooihE60.31 Abnormal electrocardiogram [ECG] [EKG] Functional Status Description No Information Available Mental Status Description No Information Available Referrals Description No Information Available
--- OUTSIDE RECORDS SUMMARY | 2020-01-19 08:22 | XMS REPORT ---
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 cantwell cantwell coronary coronary artery w/o artery w/o ang pctrs ang pctrs Encounter Encounter Diagnosis Active Mercedez for for 07-07 In[place] attention attention [id number] to to gastrostomy gastrostomy Gastro-esop Gastro-esop Diagnosis Active Mercedez hageal hageal 07-07 Ingrahm reflux reflux [id number] disease disease without without esophagitis esophagitis Other Other Diagnosis Active Mercedez specified specified 07-07 Ingrahm arthritis, arthritis, [id number] unspecified unspecified site site Essential Essential Diagnosis Active Mercedez (primary) (primary) 07-07 Ingrahm hypertensio hypertensio [id number] n n longterm longterm Diagnosis Active Mercedez (current) (current) Ingrahm use of use of [id number] anticoagula anticoagula nts nts Nicotine Nicotine Diagnosis Active Mercedez dependence, dependence, Ingrahm cigarettes, cigarettes, [id number] uncomplicat uncomplicat ed ed Personal Personal Diagnosis Active Mercedez history of history of Ingrahm malignant malignant [id number] neoplasm of neoplasm of breast breast Prsnl hx of Prsnl hx of Diagnosis Active Mercedez TIA (TIA), TIA (TIA), Ingrahm and cereb and cereb [id number] infrc w/o infrc w/o resid resid deficits deficits Pain frequent Pain Mgmt Resolve 2018-11-26 Ana pain d 9 16:15:00 [place] 13:30: [id number] 00 Pain severe pain Pain Mgmt Resolve 2018-11-26 Ana d 9 16:15:00 [place] 13:30: [id number] 00 Endo/Han anti-coagul Endo/Han Resolve 2019-02-06 Ana ation d 07-07 11:15:00 [place] therapy 13:30: [id number] 00 Integument surgical Integument Resolve 2018-08-05 Rea wound d 07-07 13:35:00 [place] present 13:30: [id number] 00 Nutrition nutritional Nutrition Resolve 2019-01-02 Ana restriction d 07-07 10:00:00 [place] s 13:30: [id number] 00 Nutrition changing Nutrition Resolve 2019-01-02 Ana weight/appe d 07-07 10:00:00 [place] tite 13:30: [id number] 00 Nutrition nutritional Nutrition Resolve 2019-01-02 Ana risk d 07-07 10:00:00 [place] 13:30: [id number] 00 Nutrition enteral Nutrition Resolve 2019-02-06 Ana therapy d 07-07 11:15:00 [place] 13:30: [id number] 00 Safety structural Safety Resolve 2019-02-06 Ana barriers d 07-07 11:15:00 [place] present 13:30: [id number] 00 Safety fall risk Safety Resolve 2019-02-06 Ana factor d 07-07 11:15:00 [place] present 13:30: [id number] 00 Safety risk for Safety Resolve 2019-02-06 Ana hospitaliza d 07-07 11:15:00 [place] tion 13:30: [id number] 00 Medication potential Meds Resolve 2019-02-06 Ana clinically d 07-07 11:15:00 [place] significant 13:30: [id number] medication 00 issue Musculoskel requires Musculoske Resolve 2019-02-06 Ana etal human letal d 07-07 11:15:00 [place] assist to 13:30: [id number] leave home 00 IV IV present IV Resolve 2019-02-06 Rea d 9-30 11:15:00 Lissette [id number] Respiratory dyspnea Respirator Resolve 2017-102019-02-06 Mercedez present y d 0-16 11:15:00 [place] 13:35: [id number] 00 Neuro confusion Neuro/Emot Unknown 2017-10 Mercedez present ion 0-16 [place] 13:35: [id number] 00 Neuro depressive Neuro/Emot Unknown 2017-10 Mercedez feelings ion 0-16 [place] present 13:35: [id number] 00 Safety can be left Safety Resolve 2017-102019-02-06 Mercedez alone for d 0-18 11:15:00 [place] only short 08:10: [id number] periods 00 Integument surgical Integument Resolve 2017-102018-10-30 Shila wound d 1-15 10:10:00 Brian present 08:55: [id number] 00 Elimination GI drain or Eliminatio Resolve 2017-102019-02-06 Shila tube n d 1-15 11:15:00 Brian present 08:55: [id number] 00 Neuro anxiety Neuro/Emot Resolve 2017-102019-02-06 Shila present ion d 1-15 11:15:00 Brian 08:55: [id number] 00 Medication injectable Meds Resolve 2017-102019-02-06 Shila med d 1-15 11:15:00 Brian assistance 08:55: [id number] required 00 Safety fire risk Safety Resolve 2017-102019-02-06 Shila present d 1-15 11:15:00 Brian 13:00: [id number] 00 Elimination urinary Eliminatio Resolve 2019-02-06 Mercedez incontinenc n d - 11:15:00 Ingra[place] e 14:20: [id number] 00 Pain frequent Pain Mgmt Resolve 2019-02-06 Mercedez pain d 2-15 11:15:00 [place] 10:15: [id number] 00 Safety risk for Safety Unknown Leanna hospitaliza 02-06 Re[place] tion 15:45: [id number] 00 Respiratory lung sounds Respirator Resolve 2019-04-03 Leanna deficit y d 02-10 10:01:00 Regec[place] 13:20: [id number] 00 Respiratory smoker Respirator Resolve 2019-04-03 Leanna y d 4-29 10:01:00 Regeczi 12:10: [id number] 00 Respiratory dyspnea Respirator Resolve 2019-06-05 Mercedez present y d 5-15 10:30:00 [place] 09:00: [id number] 00 Integument surgical Integument Resolve 2019-03-27 Mercedez wound d 5-15 09:15:00 Ingra[place] present 09:00: [id number] 00 Nutrition enteral Nutrition Resolve 2019-03-27 Mercedez therapy d -15 09:15:00 [place] 09:00: [id number] 00 Elimination urinary Eliminatio Resolve 2019-04-10 Mercedez incontinenc n d 15 09:30:00 Ingra[place] e 09:00: [id number] 00 Neuro confusion Neuro/Emot Resolve 2019-11-25 Mercedez present ion d 15 11:10:00 [place] 09:00: [id number] 00 Neuro anxiety Neuro/Emot Resolve 2019-11-25 Mercedez present ion d 515 11:10:00 [place] 09:00: [id number] 00 Neuro depressive Neuro/Emot Resolve 2019-11-25 Mercedez feelings ion d 15 11:10:00 In[place] present 09:00: [id number] 00 Neuro impaired Neuro/Emot Resolve 2019-11-25 Mercedez decision-ma ion d 15 11:10:00 [facility] sonali 09:00: [id number] 00 Activity self-care Activity Resolve 2019-05-20 Mercedez deficit d -15 11:15:00 [place] 09:00: [id number] 00 Safety fall risk Safety Resolve 2019-07-17 Mercedez factor d 5-15 10:35:00 [place] present 09:00: [id number] 00 Safety risk for Safety Resolve 2019-07-17 Mercedez hospitaliza d 5-15 10:35:00 Ingra[place] tion 09:00: [id number] 00 Medication potential Meds Resolve 2019-03-27 Mercedez clinically d 5-15 09:15:00 In[place] significant 09:00: [id number] medication 00 issue Integument surgical Integument Resolve 2019-05-20 Mercedez wound d 7-12 11:15:00 Ingra[place] present 10:00: [id number] 00 Nutrition enteral Nutrition Resolve 2019-06-26 Mercedez therapy d 7-12 10:35:00 [place] 10:00: [id number] 00 Respiratory dyspnea Respirator Resolve 2019-08-07 Leanna present y d 06-26 10:25:00 Regeczi 10:35: [id number] 00 Respiratory smoker Respirator Resolve 2019-07-01 Leanna y d 06-26 10:15:00 Regeczi 10:35: [id number] 00 Endo/Han anti-coagul Endo/Han Resolve 2019-07-23 Leanna ation d 06-26 10:15:00 Regeczi therapy 10:35: [id number] 00 Elimination urinary Eliminatio Resolve 2019-07-23 Leanna incontinenc n d 06-26 10:15:00 Regeczi e 10:35: [id number] 00 Elimination nausea/vomi Eliminatio Resolve 2019-07-01 Leanna serranog n d 06-26 10:15:00 Regeczi 10:35: [id number] 00 Integument surgical Integument Resolve 2019-07-23 Mercedez wound d 9-11 10:15:00 Ingrahm present 10:15: [id number] 00 Nutrition enteral Nutrition Resolve 2019-07-23 Mercedez therapy d 07-01 10:15:00 In[place] 10:15: [id number] 00 Respiratory smoker Respirator Resolve 2019-07-16 Leanna y d 07-16 10:05:00 Regeczi 10:05: [id number] 00 Elimination diarrhea Eliminatio Resolve 2019-07-23 Leanna n d 07-17 10:15:00 Regeczi 10:35: [id number] 00 Cardio hypertensio Cardiovasc Resolve 2018-102019-07-30 Leanna olivares 0 10:00:00 Rege[place] 10:15: [id number] 00 Safety risk for Safety Resolve 2018-102019-07-23 Leanna hospitaliza d 0-03 10:15:00 Regeczi tion 10:15: [id number] 00 24 Hr Diet knowledge/s NT: 24Hr Resolve 2018-102019-07-23 Wen kill Diet d 0-03 15:00:00 [place] deficit - 15:00: [id number] pt 00 Nutritional eating NT: Resolve 2018-102019-07-23 Wen Barrier difficultie Barriers d 0-03 15:00:00 [place] s present 15:00: [id number] 00 Safety risk for Safety Resolve 2018-102019-08-07 Roseline hospitaliza d 0-04 10:25:00 [place] tion 14:00: [id number] 00 Social financial MURIEL: Active 2018-10 [facility] Services resource Social 0-04 [place] deficit Services 14:00: [id number] 00 Social support MURIEL: Active 2018-10 [facility] Services deficit Social 0-04 [place] Services 14:00: [id number] 00 Social knowledge/s MURIEL: Active 2018-10 [facility] Services kill Social 0-04 [place] deficit - Services 14:00: [id number] pt 00 Social financial MURIEL: Unknown 2018-10 Mer[facility]ez Services resource Social 0-10 In[place] deficit Services 15:00: [id number] 00 Social knowledge/s MURIEL: Unknown 2018-10 Mer[facility] Services kill Social 0-10 Ingra[place] deficit - Services 15:00: [id number] pt 00 Respiratory lung sounds Respirator Resolve 2018-102019-08-07 Leanna deficit y d 0-18 10:25:00 Regeczi 10:25: [id number] 00 Respiratory dyspnea Respirator Resolve 2018-102019-10-23 Mercedez present y d 10-28 10:15:00 [place] 11:00: [id number] 00 Integument surgical Integument Resolve 2018-102019-09-11 Mercedez wound d 10-28 09:50:00 [place] present 11:00: [id number] 00 Nutrition enteral Nutrition Resolve 2018-102019-09-11 Emrcedez therapy d 10-28 09:50:00 [place] 11:00: [id number] 00 Elimination urinary Eliminatio Resolve 2018-102019-09-11 Mercedez incontinenc n d 10-28 09:50:00 Ingra[place] e 11:00: [id number] 00 Safety fall risk Safety Resolve 2018-102019-09-11 Mercedez factor d 10-28 09:50:00 [place] present 11:00: [id number] 00 Safety risk for Safety Resolve 2018-102019-09-23 Mercedez hospitaliza d 10-28 11:10:00 Ingra[place] tion 11:00: [id number] 00 Safety risk for Safety Unknown 2018-10 Mercedez hospitaliza 11-24 Ingrahm tion 15:00: [id number] 00 Cardio hypertensio Cardiovasc Resolve 2019-11-25 Leanna n ular d 10-23 11:10:00 Rege[place] 10:15: [id number] 00 Elimination urinary Eliminatio Resolve 2019-11-05 Leanna incontinenc n d 10-23 10:23:00 Regeczi e 10:15: [id number] 00 Elimination constipatio Eliminatio Resolve 2019-11-05 Leanna n n d 10-23 10:23:00 Rege[place] 10:15: [id number] 00 Integument surgical Integument Resolve 2019-11-19 Mercedez wound d 10-28 10:50:00 In[place] present 10:50: [id number] 00 Nutrition enteral Nutrition Resolve 2019-11-25 Mercedez therapy d 10-28 11:10:00 Ingra[place] 10:50: [id number] 00 Elimination UTI within Eliminatio Resolve 2019-11-05 Mercedez past 14 n d 10-28 10:23:00 Ingrahm days 10:50: [id number] 00 Activity self-care Activity Resolve 2019-11-05 Mercedez deficit d 10-28 10:23:00 [place] 10:50: [id number] 00 Safety fall risk Safety Resolve 2019-11-05 Mercedez factor d 10-28 10:23:00 Ingra[place] present 10:50: [id number] 00 Safety risk for Safety Resolve 2019-11-05 Mercedez hospitaliza d 10-28 10:23:00 Ingra[place] tion 10:50: [id number] 00 Safety risk for Safety Active Roseline hospitaliza 2-12 [place] tion 11:00: [id number] 00 Nutrition enteral Nutrition Unknown Mercedez therapy 3- Ingrahm 08:45: [id number] 00 Integument surgical Integument Active Mercedez wound 12-24 Ingrahm present 08:45: [id number] 00 Neuro depressive Neuro/Emot Active Mercedez feelings ion - Ingrahm present 08:45: [id number] 00 Neuro confusion Neuro/Emot Active Mercedez present ion 3- Ingrahm 08:45: [id number] 00 Neuro anxiety Neuro/Emot Active Mercedez present ion 12-24 Ingra[place] 08:45: [id number] 00 Safety fall risk Safety Active Mercedez factor 12-24 Ingrahm present 08:45: [id number] 00 Medication potential Meds Resolve 2019-12-29 Mercedez clinically d 12-24 10:15:00 Ingra[place] significant 08:45: [id number] medication 00 issue Allergies, Adverse Reactions, Alerts Allergy Allergy Status Severity Reaction(s) Onset Inactive Treating Comments Name Type Date Date Clinician latex Base Active Unknown Hives [facility] [id number] amoxicillin Base Active Unknown Anaphylaxis [facility] Ingredient 07-[facility] [id number] bee venom Base Active Unknown Anaphylaxis [facility] protein [facility]redient 07[facility] [id number] Botox Medication Active Unknown Anaphylaxis Mercedez Name ID 07-07 [facility] [id number] contrast Unknown Active Unknown Anaphylaxis [facility] dye 07-07 [facility] [id number] Penicillins Allergen Active Unknown Anaphylaxis Mercedez Group 07-07 Ingrm [id number] shellfish Base Active Unknown Anaphylaxis Mercedez derived Ingredient 07-07 Ingrm [id number] adhesive Base Active Unknown Hives [facility] tape [facility]redient 07-[facility] [id number] nsaids Unknown Active Unknown stomach issues Mercedez 07-07 Ingrm [id number] oxycodone Base Active Unknown swelling Mercedez Ingredient 07-07 [facility] [id number] Betadine Medication Active Unknown Rash [facility] Name ID 07-07 [facility] [id number] Hibiclens Medication Active Unknown Rash Mercedez Name ID 07-07 Janettegurpreet [id number] evironmenta Unknown Active Unknown hay fever, Rea l/seasonal watery eye, 07-07 Guidelli itching, [id number] sneeze, congestion povidone-io Base Active Unknown itching Rea dine Ingredient 07-07 Guidelli [id number] Iodine and Allergen Active Unknown Anaphylaxis Rea Iodide Group 07-07 Guidelli Containing [id number] Products albumin Base Active Unknown Anaphylaxis Rea colloid, Ingredient 07-07 Guidelli human [id number] fentanyl Base Active Unknown hallucinations Rea Ingredient 07-07 Guidelli [id number] Medications Ordered Filled Start Stop Current Ordering [...] Unknown mg/5 mL mg/5 mL 11-18- Tashia FNICH oral oral e solution solution HYDROmorpho HYDROmorpho [...] Unknown 137 mcg 137 mcg 10-30 Tashia FNICH (0.1 %) (0.1 %) e nasal spray [...]
--- OUTSIDE RECORDS SUMMARY | 2020-01-19 08:22 | XMS REPORT ---
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 07-07 Ingrahm [id number] Athscl Athscl Diagnosis Active Mercedez heart heart 07-07 Ingrahm disease of disease of [id number] [place] coronary coronary artery w/o artery w/o ang pctrs ang pctrs Encounter Encounter Diagnosis Active Mercedez for for 07-07 Ingrahm attention attention [id number] to to gastrostomy gastrostomy Gastro-esop Gastro-esop Diagnosis Active Mercedez hageal hageal 07-07 Ingrahm reflux reflux [id number] disease disease without without esophagitis esophagitis Other Other Diagnosis Active Mercedez specified specified 07-07 Ingrahm arthritis, arthritis, [id number] unspecified unspecified site site Essential Essential Diagnosis Active Mercedez (primary) (primary) 07-07 Ingrahm hypertensio hypertensio [id number] n n [employer]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 (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) (current) Ingrahm use of use of [id number] anticoagula anticoagula nts nts Nicotine Nicotine Diagnosis Active Mercedez dependence, dependence, Ingrahm cigarettes, cigarettes, [id number] uncomplicat uncomplicat ed ed Personal Personal Diagnosis Active Mercedez history of history of Ingrahm malignant malignant [id number] neoplasm of neoplasm of breast breast Prsnl hx of Prsnl hx of Diagnosis Active Mercedez TIA (TIA), TIA (TIA), Ingrahm and cereb and cereb [id number] infrc w/o infrc w/o resid resid deficits deficits Pain frequent Pain Mgmt Resolve 2018-11-26 Ana pain d 9 16:15:00 [place] 13:30: [id number] 00 Pain severe pain Pain Mgmt Resolve 2018-11-26 Ana d 9 16:15:00 [place] 13:30: [id number] 00 Endo/Han anti-coagul Endo/Han Resolve 2019-02-06 Ana ation d 07-07 11:15:00 [place] therapy 13:30: [id number] 00 Integument surgical Integument Resolve 2018-08-05 Rea wound d 07-07 13:35:00 [place] present 13:30: [id number] 00 Nutrition nutritional Nutrition Resolve 2019-01-02 Ana restriction d 07-07 10:00:00 [place] s 13:30: [id number] 00 Nutrition changing Nutrition Resolve 2019-01-02 Ana weight/appe d 07-07 10:00:00 [place] tite 13:30: [id number] 00 Nutrition nutritional Nutrition Resolve 2019-01-02 Ana risk d 07-07 10:00:00 [place] 13:30: [id number] 00 Nutrition enteral Nutrition Resolve 2019-02-06 Ana therapy d 07-07 11:15:00 [place] 13:30: [id number] 00 Safety structural Safety Resolve 2019-02-06 Ana barriers d 07-07 11:15:00 [place] present 13:30: [id number] 00 Safety fall risk Safety Resolve 2019-02-06 Ana factor d 07-07 11:15:00 [place] present 13:30: [id number] 00 Safety risk for Safety Resolve 2019-02-06 Ana hospitaliza d 07-07 11:15:00 [place] tion 13:30: [id number] 00 Medication potential Meds Resolve 2019-02-06 Ana clinically d 07-07 11:15:00 [place] significant 13:30: [id number] medication 00 issue Musculoskel requires Musculoske Resolve 2019-02-06 Ana etal human letal d 07-07 11:15:00 [place] assist to 13:30: [id number] leave home 00 IV IV present IV Resolve 2019-02-06 Rea d 9-30 11:15:00 [place] [id number] Respiratory dyspnea Respirator Resolve 2017-102019-02-06 Mercedez present y d 0-16 11:15:00 [place] 13:35: [id number] 00 Neuro confusion Neuro/Emot Unknown 2017-10 Mer[facility]ez present ion 0-16 [place] 13:35: [id number] 00 Neuro depressive Neuro/Emot Unknown 2017-10 Mercedez feelings ion 0-16 In[place] present 13:35: [id number] 00 Safety can be left Safety Resolve 2017-102019-02-06 Mercedez alone for d 0-18 11:15:00 [place] only short 08:10: [id number] periods 00 Integument surgical Integument Resolve 2017-102018-10-30 Shila wound d 1-15 10:10:00 Brian present 08:55: [id number] 00 Elimination GI drain or Eliminatio Resolve 2017-102019-02-06 Shila tube n d 1-15 11:15:00 Brian present 08:55: [id number] 00 Neuro anxiety Neuro/Emot Resolve 2017-102019-02-06 Shila present ion d 1-15 11:15:00 Brian 08:55: [id number] 00 Medication injectable Meds Resolve 2017-102019-02-06 Shila med d 1-15 11:15:00 Brian assistance 08:55: [id number] required 00 Safety fire risk Safety Resolve 2017-102019-02-06 Shila present d 1-15 11:15:00 Brian 13:00: [id number] 00 Elimination urinary Eliminatio Resolve 2019-02-06 Mercedez incontinenc n d - 11:15:00 [place] e 14:20: [id number] 00 Pain frequent Pain Mgmt Resolve 2019-02-06 Mercedez pain d 2-15 11:15:00 [place] 10:15: [id number] 00 Safety risk for Safety Unknown Leanna hospitaliza 02-06 [place] tion 15:45: [id number] 00 Respiratory lung sounds Respirator Resolve 2019-04-03 Leanna deficit y d 02-10 10:01:00 Re[place] 13:20: [id number] 00 Respiratory smoker Respirator Resolve 2019-04-03 Leanna y d 4-29 10:01:00 Regeczi 12:10: [id number] 00 Respiratory dyspnea Respirator Resolve 2019-06-05 Mercedez present y d 5-15 10:30:00 [place] 09:00: [id number] 00 Integument surgical Integument Resolve 2019-03-27 Mer[facility]ez wound d 5-15 09:15:00 In[place] present 09:00: [id number] 00 Nutrition enteral Nutrition Resolve 2019-03-27 Mercedez therapy d -15 09:15:00 [place] 09:00: [id number] 00 Elimination urinary Eliminatio Resolve 2019-04-10 Mercedez incontinenc n d 15 09:30:00 Ingra[place] e 09:00: [id number] 00 Neuro confusion Neuro/Emot Resolve 2019-11-25 Mercedez present ion d 15 11:10:00 [place] 09:00: [id number] 00 Neuro anxiety Neuro/Emot Resolve 2019-11-25 Mercedez present ion d 515 11:10:00 [place] 09:00: [id number] 00 Neuro depressive Neuro/Emot Resolve 2019-11-25 Mercedez feelings ion d 15 11:10:00 In[place] present 09:00: [id number] 00 Neuro impaired Neuro/Emot Resolve 2019-11-25 Emrcedez decision-ma ion d 15 11:10:00 [facility] sonali 09:00: [id number] 00 Activity self-care Activity Resolve 2019-05-20 Mercedez deficit d -15 11:15:00 [place] 09:00: [id number] 00 Safety fall risk Safety Resolve 2019-07-17 Mercedez factor d 5-15 10:35:00 Ingra[place] present 09:00: [id number] 00 Safety risk for Safety Resolve 2019-07-17 Mercedez hospitaliza d 5-15 10:35:00 Ingrahm tion 09:00: [id number] 00 Medication potential Meds Resolve 2019-03-27 Mercedez clinically d 5-15 09:15:00 Ingrahm significant 09:00: [id number] medication 00 issue Integument surgical Integument Resolve 2019-05-20 Mercedez wound d 7-12 11:15:00 In[place] present 10:00: [id number] 00 Nutrition enteral Nutrition Resolve 2019-06-26 Mercedez therapy d 7-12 10:35:00 [place] 10:00: [id number] 00 Respiratory dyspnea Respirator Resolve 2019-08-07 Leanna present y d 06-26 10:25:00 Regeczi 10:35: [id number] 00 Respiratory smoker Respirator Resolve 2019-07-01 Leanna y d 06-26 10:15:00 Regeczi 10:35: [id number] 00 Endo/Han anti-coagul Endo/Han Resolve 2019-07-23 Leanna ation d 06-26 10:15:00 Regeczi therapy 10:35: [id number] 00 Elimination urinary Eliminatio Resolve 2019-07-23 Leanna incontinenc n d 06-26 10:15:00 Regeczi e 10:35: [id number] 00 Elimination nausea/vomi Eliminatio Resolve 2019-07-01 Leanna serranog n d 06-26 10:15:00 Regec[place] 10:35: [id number] 00 Integument surgical Integument Resolve 2019-07-23 Mer[place]ez wound d 9-11 10:15:00 In[place] present 10:15: [id number] 00 Nutrition enteral Nutrition Resolve 2019-07-23 Mercedez therapy d 07-01 10:15:00 [place] 10:15: [id number] 00 Respiratory smoker Respirator Resolve 2019-07-16 Leanna y d 07-16 10:05:00 Rege[place] 10:05: [id number] 00 Elimination diarrhea Eliminatio Resolve 2019-07-23 Leanna n d 07-17 10:15:00 Re[place] 10:35: [id number] 00 Cardio hypertensio Cardiovasc Resolve 2018-102019-07-30 Leanna olivares 0 10:00:00 [place] 10:15: [id number] 00 Safety risk for Safety Resolve 2018-102019-07-23 Leanna hospitaliza d 0-03 10:15:00 Regeczi tion 10:15: [id number] 00 24 Hr Diet knowledge/s NT: 24Hr Resolve 2018-102019-07-23 Wen kill Diet d 0-03 15:00:00 Tyler deficit - 15:00: [id number] pt 00 Nutritional eating NT: Resolve 2018-102019-07-23 Wen Barrier difficultie Barriers d 0-03 15:00:00 Tyler s present 15:00: [id number] Safety risk for Safety Resolve 2018-102019-08-07 Roseline hospitaliza d 0-04 10:25:00 [place] tion 14:00: [id number] 00 Social financial MURIEL: Active 2018-10 [facility] Services resource Social 0-04 [place] deficit Services 14:00: [id number] 00 Social support MURIEL: Active 2018-10 [facility] deficit Social 0-04 [place] Services 14:00: [id number] 00 Social knowledge/s MURIEL: Active 2018-10 [facility] kill Social 0-04 [place] deficit - Services 14:00: [id number] pt 00 Social financial MURIEL: Unknown 2018-10 [facility] Services resource Social 0-10 In[place] deficit Services 15:00: [id number] 00 Social knowledge/s MURIEL: Unknown 2018-10 [facility] Services kill Social 0-10 Ingrahm deficit - Services 15:00: [id number] pt 00 Respiratory lung sounds Respirator Resolve 2018-102019-08-07 Leanna deficit y d 0-18 10:25:00 Rege[place]zi 10:25: [id number] 00 Respiratory dyspnea Respirator Resolve 2018-102019-10-23 Mercedez present y d 10-28 10:15:00 [place] 11:00: [id number] 00 Integument surgical Integument Resolve 2018-102019-09-11 Mercedez wound d 10-28 09:50:00 Ingra[place] present 11:00: [id number] 00 Nutrition enteral Nutrition Resolve 2018-102019-09-11 Mercedez therapy d 10-28 09:50:00 [place] 11:00: [id number] 00 Elimination urinary Eliminatio Resolve 2018-102019-09-11 Mercedez incontinenc n d 10-28 09:50:00 Ingrahm e 11:00: [id number] 00 Safety fall risk Safety Resolve 2018-102019-09-11 Mercedez factor d 10-28 09:50:00 Ingra[place] present 11:00: [id number] 00 Safety risk for Safety Resolve 2018-102019-09-23 Mercedez hospitaliza d 10-28 11:10:00 Ingrahm tion 11:00: [id number] 00 Safety risk for Safety Unknown 2018-10 Mercedez hospitaliza 11-24 Ingrahm tion 15:00: [id number] 00 Cardio hypertensio Cardiovasc Resolve 2019-11-25 Leanna n ular d 10-23 11:10:00 Regeczi 10:15: [id number] 00 Elimination urinary Eliminatio Resolve 2019-11-05 Leanna incontinenc n d 10-23 10:23:00 Regeczi e 10:15: [id number] 00 Elimination constipatio Eliminatio Resolve 2019-11-05 Leanna n n d 10-23 10:23:00 Regeczi 10:15: [id number] 00 Integument surgical Integument Resolve 2019-11-19 Mercedez wound d 10-28 10:50:00 Ingra[place] present 10:50: [id number] 00 Nutrition enteral Nutrition Resolve 2019-11-25 Mercedez therapy d 10-28 11:10:00 [place] 10:50: [id number] 00 Elimination UTI within Eliminatio Resolve 2019-11-05 Mercedez past 14 n d 10-28 10:23:00 Ingrahm days 10:50: [id number] 00 Activity self-care Activity Resolve 2019-11-05 Mercedez deficit d 10-28 10:23:00 Ingra[place] 10:50: [id number] 00 Safety fall risk Safety Resolve 2019-11-05 Mercedez factor d 10-28 10:23:00 Ingrahm present 10:50: [id number] 00 Safety risk for Safety Resolve 2019-11-05 Mercedez hospitaliza d 10-28 10:23:00 Ingrahm tion 10:50: [id number] 00 Safety risk for Safety Active Roseline hospitaliza 2-12 [place] tion 11:00: [id number] 00 Nutrition enteral Nutrition Unknown Mercedez therapy 3- Ingrahm 08:45: [id number] 00 Integument surgical Integument Active Mercedez wound 12-24 Ingrahm present 08:45: [id number] 00 Neuro depressive Neuro/Emot Active Mercedez feelings ion - Ingrahm present 08:45: [id number] 00 Neuro confusion Neuro/Emot Active Mercedez present ion 3- Ingrahm 08:45: [id number] 00 Neuro anxiety Neuro/Emot Active Mercedez present ion 12-24 Ingrahm 08:45: [id number] 00 Safety fall risk Safety Active Mercedez factor 12-24 Ingrahm present 08:45: [id number] 00 Medication potential Meds Resolve 2019-12-29 Mercedez clinically d 12-24 10:15:00 Ingrahm significant 08:45: [id number] medication 00 issue Allergies, Adverse Reactions, Alerts Allergy Allergy Status Severity Reaction(s) Onset Inactive Treating Comments Name Type Date Date Clinician latex Base Active Unknown [facility]ives [id number] amoxicillin Base Active Unknown Anaphylaxis [facility]redient [facility] [id number] bee venom Base Active Unknown Anaphylaxis [facility] protein [facility]redient 07[facility] [id number] Botox Medication Active Unknown Anaphylaxis Mercedez Name ID 07-07 [facility] [id number] contrast Unknown Active Unknown Anaphylaxis [facility] dye 07[facility] [id number] Penicillins Allergen Active Unknown Anaphylaxis Mer[facility]ez Group 07-07 Ingrm [id number] shellfish Base Active Unknown Anaphylaxis Mercedez derived Ingredient 07-07 Ingrm [id number] adhesive Base Active Unknown Hives [facility] tape [facility]redient 07[facility] [id number] nsaids Unknown Active Unknown stomach issues Mercedez 07-07 Ingrm [id number] oxycodone Base Active Unknown swelling Mercedez Ingredient 07-07 [facility] [id number] Betadine Medication Active Unknown Rash [facility] 07[facility] [id number] Hibiclens Medication Active Unknown Rash Mercedez Name ID 07-07 Janettegurpreet [id number] evironmenta Unknown Active Unknown hay fever, Rea l/seasonal watery eye, 07-07 Guidelli itching, [id number] sneeze, congestion povidone-io Base Active Unknown itching Rea dine Ingredient 07-07 Guidelli [id number] Iodine and Allergen Active Unknown Anaphylaxis Rea Iodide Group 07-07 Guidelli Containing [id number] Products albumin Base Active Unknown Anaphylaxis Rea colloid, Ingredient 07-07 Guidelli human [id number] fentanyl Base Active Unknown hallucinations Rea Ingredient 07-07 Guidelli [id number] Medications Ordered Filled Start Stop Current Ordering [...] carisoprodo carisoprodo 2018- No Blegen Unknown Unknown L 350 mg L 350 mg 07-07 Tashia FINCH tablet tablet [...] mg 07-07 Tashia FINCH tablet tablet e clopidogreL clopidogreL 2018- No Blegen Unknown Unknown 75 mg [...] solution carisoprodo carisoprodo No Blegen Unknown Unknown L 350 mg L 350 mg 10-26 ,Tashia tablet tablet e metoprolol metoprolol 2018- No Blegen Unknown Unknown tartrate 50 tartrate 50 10-26- Tashia FINCH mg tablet mg tablet e amLODIPine amLODIPine No Blegen Unknown Unknown 10 mg 10 mg 10-26 ,Tashia tablet tablet e clopidogreL clopidogreL No Blegen Unknown Unknown 75 mg 75 [...] Blegen Unknown Unknown HCl HCl 5-15 Tashia FINHC (vitamin (vitamin e B1) 100 mg B1) [...] Observation Time Observation Value Comments SYSTOLIC mm[Hg] 2020-01-17 18:11:07 182 mm[Hg] mm[Hg] Method: Sit SYSTOLIC mm[Hg] 2018-11-27 18:04:11 142 mm[Hg] mm[Hg] Method: Stand SYSTOLIC mm[Hg] 2019-06-27 18:07:43 122 mm[Hg] mm[Hg] Method: Lie DIASTOLIC mm[Hg] 2020-01-17 18:11:07 96 mm[Hg] mm[Hg] Method: Sit DIASTOLIC mm[Hg] 2018-11-27 18:04:11 84 mm[Hg] mm[Hg] Method: Stand DIASTOLIC mm[Hg] 2019-06-27 18:07:43 50 mm[Hg] mm[Hg] Method: Lie Procedures This patient has no known procedures. Results This patient has no known results.
--- OUTSIDE RECORDS SUMMARY | 2020-01-19 08:23 | XMS REPORT | Continuity of Care Document ---
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 Onset: 04/05/2015 Derangement of knee Benny Celeste M.D. Onset: 04/05/2015 Coronary arteriosclerosis Rock Domínguez M.D., [facility], Onset: 05/09/2015 FASNC Achalasia of esophagus Benny Celeste M.D. Onset: 11/24/2015 Localized, primary osteoarthritis Benny Celeste M.D. Onset: 11/24/2015 Atherosclerotic heart disease of Rcok Domínguez M.D., [facility], Onset: 2015 [place] coronary artery with other FASNC forms of angina pectoris Essential hypertension Rock Domínguez M.D., [facility], Onset: 02/14/2016 FASNC Arthroplasty of knee Benny Celeste M.D. Onset: 03/29/2016 Abdominal pain Taylor Hutchison NP Onset: 04/16/2018 Chronic obstructive lung disease Tennille Sierra N.P. Onset: 04/17/2018 Hypokalemia Liss Chandler NP Onset: 06/16/2018 Nausea and vomiting Liss Chandler NP Onset: 06/16/2018 Acute renal failure syndrome Taylor Hutchison NP Onset: 06/17/2018 Pulmonary hypertension Rock Domínguez M.D., [facility], Onset: 05/08/2019 [facility] Social History Type Date Description Comments [...] Rock Mcgee 02/14/2016 Ramon Domínguez, 100mg Tablets [facility], [facility] Atrovent HFA 2 puff by mouth up to Unknown 17mcg/Act every 6 hours as Aerosol needed for shortness of breath/wheezing Spironolactone 1 by mouth every day Unknown 25mg am Tablets Azelastine HCL 2 spray each nostril Unknown (Nasal) once a day 137mcg/[place] Solution Lorazepam 1-2 tabs q hs for [...] Available Procedures Date Code Description Status 11/13/2019 09166 EKG Tracing & Interpretation Completed 10/26/2019 33418 ECHO Transthorasic Realtime 2D W Doppler & Color Flow Hosp Completed 10/26/2019 38137 EKG, Interpretation Only Completed 09/09/2019 86756 EKG, Interpretation Only Completed 09/08/2019 36773 ECHO Transthorasic Realtime 2D W Doppler & Color Flow Hosp Completed 09/08/2019 65542 EKG, Interpretation Only Completed Medical Devices Description No Information Available Encounters Type Date Location Provider Dx Diagnosis Office Visit 12/23/2019 [facility] I16.0 Hypertensive 10:10a Assoc,pc CRISTINA Hernandez urgency Hospitalists R07.9 Chest pain, unspecified [facility], 10:09a [facility] [place], [place] unspecified Hospitalists G89.29 Other chronic pain E87.8 Oth disorders of electrolyte and fluid balance, NEC K22.0 Achalasia of cardia R11.2 Nausea with vomiting, unspecified I10 Essential (primary) hypertension Office Visit 12/21/2019 10:08a [facility] Aravind R07.9 Chest pain, Assoc,pc [place], [place] unspecified Hospitalists G89.29 Other chronic pain E87.8 Oth disorders of electrolyte and fluid balance, NEC R79.89 Other specified abnormal findings of blood chemistry I10 Essential (primary) hypertension K22.0 Achalasia of cardia R11.2 Nausea with vomiting, unspecified Office Visit 12/20/2019 10:08a [facility] Aravind R07.9 Chest pain, Assoc,pc [place], [place] unspecified Hospitalists G89.29 Other chronic pain E87.8 Oth disorders of electrolyte and fluid balance, NEC R79.89 Other specified abnormal findings of blood chemistry I10 Essential (primary) hypertension K22.0 Achalasia of cardia R11.2 Nausea with vomiting, unspecified Office Visit 12/19/2019 10:07a [facility] Tennille Sierra R07.9 Chest pain , Assoc,pc N.P. unspecified Hospitalists I10 Essential (primary) hypertension Office Visit 11/13/2019 1:45p [facility] Rockpatricia Mcgee R07.9 Chest pain, Of Dwight Domínguez M.D., unspecified FACC, FASNC I25.10 Athscl heart disease of [place] coronary artery w/o ang pctrs R94.31 Abnormal electrocardiogram [ECG] [EKG] Office Visit 10/27/2019 9:15a [facility] Laura Darvin, G92 Toxic encephalopathy Assoc,pc PHYSICS TECHNICIAN Hospitalists N39.0 Urinary tract infection, site not specified Office Visit 10/26/2019 9:14a [facility] Yumiko G92 Toxic encephalopathy Assoc,pc Leda Milan Hospitalists K22.0 Achalasia of cardia I25.10 Athscl heart disease of [facility] coronary artery w/o ang pctrs I10 Essential (primary) hypertension G89.29 Other chronic pain K21.9 Gastro-esophageal reflux disease without esophagitis Z72.0 Tobacco use Office Visit 10/25/2019 9:14a [facility] Kimo G92 Toxic encephalopathy Assoc,rodriguez Castanon M.D. Hospitalists R44.3 Hallucinations, unspecified I16.0 Hypertensive urgency R09.02 Hypoxemia E43 Unspecified severe protein-calorie malnutrition Z93.1 Gastrostomy status Office Visit 09/10/2019 10:07a [facility] Rosibel K22.0 Achalasia of Assoc,pc JAIME Cisneros cardia Hospitalists R10.10 Upper abdominal pain, unspecified I16.0 Hypertensive urgency R07.9 Chest pain, unspecified Office Visit 09/08/2019 10:05a [facility] Tunde Burt, I16.0 Hypertensive Assoc,pc urgency Hospitalists K22.0 Achalasia of cardia R07.9 Chest pain, unspecified R10.10 Upper abdominal pain, unspecified Assessments Date Code Description Provider 12/23/2019 I16.0 Hypertensive urgency CRISTINA Olivarez 12/23/2019 R07.9 Chest pain, unspecified CRISTINA Olivarez 12/22/2019 R07.9 Chest pain, unspecified CRISTINA Olivarez 12/22/2019 G89.29 Other chronic pain CRISTINA Olivarez 12/22/2019 E87.8 Other disorders of electrolyte and CRISTINA Olivarez fluid balance, not elsewhere classified 12/22/2019 K22.0 Achalasia of cardia CRISTINA Olivarez 12/22/2019 R11.2 Nausea with vomiting, unspecified CRISTINA Olivarez 12/22/2019 I10 Essential (primary) hypertension Divina Hernandez PA 12/21/2019 R07.9 Chest pain, unspecified Aravind Roberts, [place] 12/21/2019 G89.29 Other chronic pain Aravind Roberts PA 12/21/2019 E87.8 Other disorders of electrolyte and Aravind Roberts PA fluid balance, not elsewhere classified 12/21/2019 R79.89 Other specified abnormal findings of CRISTINA Doty blood chemistry 12/21/2019 I10 Essential (primary) hypertension Aravind Roberts PA 12/21/2019 K22.0 Achalasia of cardia Aravind Roberts, [place] 12/21/2019 R11.2 Nausea with vomiting, unspecified Aravind Roberts PA 12/20/2019 R07.9 Chest pain, unspecified Aravind Roberts, [place] 12/20/2019 G89.29 Other chronic pain Aravind Roberts PA 12/20/2019 E87.8 Other disorders of electrolyte and CRISTINA Doty fluid balance, not elsewhere classified 12/20/2019 R79.89 Other specified abnormal findings of CRISTINA Doty blood chemistry 12/20/2019 I10 Essential (primary) hypertension Aravind Roberts PA 12/20/2019 K22.0 Achalasia of cardia Aravind Roberts PA 12/20/2019 R11.2 Nausea with vomiting, unspecified Aravind Roberts, [place] 12/19/2019 R07.9 Chest pain, unspecified Tennille Sierra, N.P. 12/19/2019 I10 Essential (primary) hypertension Tennille Sierra, N.P. 11/13/2019 R07.9 Chest pain, unspecified Rock Domínguez M.D., [facility], [facility] 11/13/2019 I25.10 Atherosclerotic heart disease of Rock Domínguez M.D., [facility], [place] coronary artery without angina FASIN pectoris 11/13/2019 R94.31 Abnormal electrocardiogram [ECG] [EKG] Rock Domínguez M.D., [facility], [facility] 10/27/2019 G92 Toxic encephalopathy Laura Darvin, PHYSICS TECHNICIAN 10/27/2019 N39.0 Urinary tract infection, site not Laura Darvin, PHYSICS TECHNICIAN specified 10/26/2019 R94.31 Abnormal electrocardiogram [ECG] [EKG] Neisha Garcia M.D. 10/26/2019 R94.31 Abnormal electrocardiogram [ECG] [EKG] Eugene Talley M.D. 10/26/2019 G92 Toxic encephalopathy Yumiko Milan D.O. 10/26/2019 K22.0 Achalasia of cardia Yumiko Milan D.O. 10/26/2019 I25.10 Atherosclerotic heart disease of Yumiko Milan D.O. [facility] coronary artery without angina pectoris 10/26/2019 I10 [...] Castanon M.D. 09/10/2019 K22.0 Achalasia of cardia ZEN JavierC 09/10/2019 R10.10 Upper abdominal pain, unspecified Rosibel O'edwina, ZENC 09/10/2019 I16.0 Hypertensive urgency Rosiebl O'edwinaCRISTINA-C 09/10/2019 R07.9 Chest pain, unspecified Rosibel Aleida'ewdinaZENC 09/09/2019 R94.31 Abnormal electrocardiogram [ECG] [EKG] Neisha Garcia M.D. 09/09/2019 I16.0 Hypertensive urgency Rosibel O'edwinaCRISTINA-C 09/09/2019 R07.9 Chest pain, unspecified Rosibel O'edwina, PAStanislavC 09/09/2019 K22.0 Achalasia of cardia Rosibel Cisneros PA-C 09/08/2019 R94.31 Abnormal electrocardiogram [ECG] [EKG] Neisha Garcia M.D. 09/08/2019 I16.0 Hypertensive urgency Tunde Burt MD 09/08/2019 K22.0 Achalasia of cardia Tunde Burt MD 09/08/2019 R07.9 Chest pain, unspecified Eugene Talley M.D. 09/08/2019 R07.9 Chest pain, unspecified Tunde Burt MD 09/08/2019 R10.10 Upper abdominal pain, unspecified Tunde Burt MD Plan of Treatment Future Appointment(s):01/20/2020 10:45 am - Rock Domínguez M.D., FACNhan, FASIN at [facility]11/13/2019 - Rock Domínguez M.D., [facility], NJJGYS06.9 Chest pain, unspecifiedNew Orders:Stress Test, Pharmacologic Nuclear (Lexiscan), Ordered: 11/13/19Comments:As discussed, we will recheck your stress test. Overall I feel your blood pressure is okay and if stays increased, could increase your Imdur further with your PCP (which may also help with your esophageal spasm). Your echo findings are stable. Please continue to stay hydrated.Follow up:after NLMI25.10 Atherosclerotic heart disease of [place] coronary artery without angina vctphuihQ02.31 Abnormal electrocardiogram [ECG] [ EKG] Functional Status Description No Information Available Mental Status Description No Information Available Referrals Description No Information Available
--- OUTSIDE RECORDS SUMMARY | 2020-01-19 08:23 | XMS REPORT ---
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 w/o ang pctrs ang pctrs Encounter Encounter Diagnosis Active Mer[facility]ez for for 07-07 Ingrahm attention attention [id number] to to gastrostomy gastrostomy Gastro-esop Gastro-esop Diagnosis Active Mercedez hageal hageal 07-07 Ingrahm reflux reflux [id number] disease disease without without esophagitis esophagitis Other Other Diagnosis Active Mercedez specified specified 07-07 Ingrahm arthritis, arthritis, [id number] unspecified unspecified site site Essential Essential Diagnosis Active [facility]ez (primary) (primary) 07-07 Ingrahm hypertensio hypertensio [id number] n n CHCF CHCF Diagnosis Active [facility]ez (current) (current) Ingrahm use of use of [id number] anticoagula anticoagula nts nts Nicotine Nicotine Diagnosis Active Mer[facility]ez dependence, dependence, Ingrahm cigarettes, cigarettes, [id number] uncomplicat uncomplicat ed ed Personal Personal Diagnosis Active [facility]ez history of history of Ingrahm malignant malignant [id number] neoplasm of neoplasm of breast breast Prsnl hx of Prsnl hx of Diagnosis Active Mer[facility]ez TIA (TIA), TIA (TIA), Ingrahm and cereb and cereb [id number] infrc w/o infrc w/o resid resid deficits deficits Pain frequent Pain Mgmt Resolve 2018-11-26 Ana pain d 9 16:15:00 Talmage 13:30: [id number] 00 Pain severe pain Pain Mgmt Resolve 2018-11-26 Ana d 9 16:15:00 Talmage 13:30: [id number] 00 Endo/Han anti-coagul Endo/Han Resolve 2019-02-06 Ana ation d 07-07 11:15:00 Talmage therapy 13:30: [id number] 00 Integument surgical Integument Resolve 2018-08-05 Rea wound d 07-07 13:35:00 Guidelli present 13:30: [id number] 00 Nutrition nutritional Nutrition Resolve 2019-01-02 Ana restriction d 07-07 10:00:00 Talmage s 13:30: [id number] 00 Nutrition changing Nutrition Resolve 2019-01-02 Ana weight/appe d 07-07 10:00:00 Talmage tite 13:30: [id number] 00 Nutrition nutritional Nutrition Resolve 2019-01-02 Ana risk d 07-07 10:00:00 Talmage 13:30: [id number] 00 Nutrition enteral Nutrition Resolve 2019-02-06 Ana therapy d 07-07 11:15:00 Talmage 13:30: [id number] 00 Safety structural Safety Resolve 2019-02-06 Ana barriers d 07-07 11:15:00 Talmage present 13:30: [id number] 00 Safety fall risk Safety Resolve 2019-02-06 Ana factor d 07-07 11:15:00 Talmage present 13:30: [id number] 00 Safety risk for Safety Resolve 2019-02-06 Ana hospitaliza d 07-07 11:15:00 Talmage tion 13:30: [id number] 00 Medication potential Meds Resolve 2019-02-06 Ana clinically d 07-07 11:15:00 Talmage significant 13:30: [id number] medication 00 issue Musculoskel requires Musculoske Resolve 2019-02-06 Ana etal human letal d 07-07 11:15:00 Talmage assist to 13:30: [id number] leave home 00 IV IV present IV Resolve 2019-02-06 Rea d 9-30 11:15:00 Lissette [id number] Respiratory dyspnea Respirator Resolve 2017-102019-02-06 Mercedez present y d 0-16 11:15:00 Ingrahm 13:35: [id number] 00 Neuro confusion Neuro/Emot Unknown 2017-10 Mercedez present ion 0-16 Ingrahm 13:35: [id number] 00 Neuro depressive Neuro/Emot Unknown 2017-10 Mercedez feelings ion 0-16 Ingrahm present 13:35: [id number] 00 Safety can be left Safety Resolve 2017-102019-02-06 Mercedez alone for d 0-18 11:15:00 Ingrahm only short 08:10: [id number] periods 00 Integument surgical Integument Resolve 2017-102018-10-30 Shila wound d 1-15 10:10:00 Brian present 08:55: [id number] 00 Elimination GI drain or Eliminatio Resolve 2017-102019-02-06 Shila tube n d 1-15 11:15:00 Brian present 08:55: [id number] 00 Neuro anxiety Neuro/Emot Resolve 2017-102019-02-06 Shila present ion d 1-15 11:15:00 Brian 08:55: [id number] 00 Medication injectable Meds Resolve 2017-102019-02-06 Shila med d 1-15 11:15:00 Brian assistance 08:55: [id number] required 00 Safety fire risk Safety Resolve 2017-102019-02-06 Shila present d 1-15 11:15:00 Brian 13:00: [id number] 00 Elimination urinary Eliminatio Resolve 2019-02-06 Mer[facility]ez incontinenc n d - 11:15:00 Ingrahm e 14:20: [id number] 00 Pain frequent Pain Mgmt Resolve 2019-02-06 Mercedez pain d 2-15 11:15:00 Ingrahm 10:15: [id number] 00 Safety risk for Safety Unknown Leanna hospitaliza 02-06 Regeczi tion 15:45: [id number] 00 Respiratory lung sounds Respirator Resolve 2019-04-03 Leanna deficit y d 02-10 10:01:00 Regeczi 13:20: [id number] 00 Respiratory smoker Respirator Resolve 2019-04-03 Leanna y d 4-29 10:01:00 Regeczi 12:10: [id number] 00 Respiratory dyspnea Respirator Resolve 2019-06-05 Mer[facility]ez present y d 5-15 10:30:00 Ingrahm 09:00: [id number] 00 Integument surgical Integument Resolve 2019-03-27 Mer[facility]ez wound d 5-15 09:15:00 Ingrahm present 09:00: [id number] 00 Nutrition enteral Nutrition Resolve 2019-03-27 Mercedez therapy d -15 09:15:00 Ingrahm 09:00: [id number] 00 Elimination urinary Eliminatio Resolve 2019-04-10 Mercedez incontinenc n d 15 09:30:00 Ingrahm e 09:00: [id number] 00 Neuro confusion Neuro/Emot Resolve 2019-11-25 Mercedez present ion d 15 11:10:00 Ingrahm 09:00: [id number] 00 Neuro anxiety Neuro/Emot Resolve 2019-11-25 Mercedez present ion d 515 11:10:00 Ingrahm 09:00: [id number] 00 Neuro depressive Neuro/Emot Resolve 2019-11-25 Mercedez feelings ion d 15 11:10:00 Ingrahm present 09:00: [id number] 00 Neuro impaired Neuro/Emot Resolve 2019-11-25 Mercedez decision-ma ion d 15 11:10:00 [facility] sonali 09:00: [id number] 00 Activity self-care Activity Resolve 2019-05-20 Mercedez deficit d -15 11:15:00 Ingrahm 09:00: [id number] 00 Safety fall risk Safety Resolve 2019-07-17 Mercedez factor d 5-15 10:35:00 Ingrahm present 09:00: [id number] 00 Safety risk for Safety Resolve 2019-07-17 Mercedez hospitaliza d 5-15 10:35:00 Ingrahm tion 09:00: [id number] 00 Medication potential Meds Resolve 2019-03-27 Mercedez clinically d 5-15 09:15:00 Ingrahm significant 09:00: [id number] medication 00 issue Integument surgical Integument Resolve 2019-05-20 Mercedez wound d 7-12 11:15:00 Ingrahm present 10:00: [id number] 00 Nutrition enteral Nutrition Resolve 2019-06-26 Mercedez therapy d 7-12 10:35:00 Ingrahm 10:00: [id number] 00 Respiratory dyspnea Respirator Resolve 2019-08-07 Leanna present y d 06-26 10:25:00 Regeczi 10:35: [id number] 00 Respiratory smoker Respirator Resolve 2019-07-01 Leanna y d 06-26 10:15:00 Regeczi 10:35: [id number] 00 Endo/Han anti-coagul Endo/Han Resolve 2019-07-23 Leanna ation d 06-26 10:15:00 Regeczi therapy 10:35: [id number] 00 Elimination urinary Eliminatio Resolve 2019-07-23 Leanna incontinenc n d 06-26 10:15:00 Regeczi e 10:35: [id number] 00 Elimination nausea/vomi Eliminatio Resolve 2019-07-01 Leanna serranog n d 06-26 10:15:00 Regeczi 10:35: [id number] 00 Integument surgical Integument Resolve 2019-07-23 Mer[facility]ez wound d 9-11 10:15:00 Ingrahm present 10:15: [id number] 00 Nutrition enteral Nutrition Resolve 2019-07-23 Mercedez therapy d 07-01 10:15:00 Ingrahm 10:15: [id number] 00 Respiratory smoker Respirator Resolve 2019-07-16 Leanna y d 07-16 10:05:00 Regeczi 10:05: [id number] 00 Elimination diarrhea Eliminatio Resolve 2019-07-23 Leanna n d 07-17 10:15:00 Regeczi 10:35: [id number] 00 Cardio hypertensio Cardiovasc Resolve 2018-102019-07-30 Leanna olivares 0 10:00:00 Regeczi 10:15: [id number] 00 Safety risk for Safety Resolve 2018-102019-07-23 Leanna hospitaliza d 0-03 10:15:00 Regeczi tion 10:15: [id number] 00 24 Hr Diet knowledge/s NT: 24Hr Resolve 2018-102019-07-23 Wen kill Diet d 0-03 15:00:00 Mcwilliams deficit - 15:00: [id number] pt 00 Nutritional eating NT: Resolve 2018-102019-07-23 Wen Barrier difficultie Barriers d 0-03 15:00:00 Mcwilliams s present 15:00: [id number] 00 Safety risk for Safety Resolve 2018-102019-08-07 Roseline hospitaliza d 0-04 10:25:00 [place] tion 14:00: [id number] 00 Social financial MURIEL: Active 2018-10 [facility] resource Social 0-04 [place] deficit Services 14:00: [id number] 00 Social support MURIEL: Active 2018-10 [facility] deficit Social 0-04 [place] [facility] 14:00: [id number] 00 Social knowledge/s MURIEL: Active 2018-10 [facility] kill Social 0-04 [place] deficit - Services 14:00: [id number] pt 00 Social financial MURIEL: Unknown 2018-10 [facility] Services resource Social 0-10 Ingrahm deficit Services 15:00: [id number] 00 Social knowledge/s MURIEL: Unknown 2018-10 [facility] Services kill Social 0-10 Ingrahm deficit - Services 15:00: [id number] pt 00 Respiratory lung sounds Respirator Resolve 2018-102019-08-07 Leanna deficit y d 0-18 10:25:00 Regeczi 10:25: [id number] 00 Respiratory dyspnea Respirator Resolve 2018-102019-10-23 Mercedez present y d 10-28 10:15:00 Ingrahm 11:00: [id number] 00 Integument surgical Integument Resolve 2018-102019-09-11 Mercedez wound d 10-28 09:50:00 Ingrahm present 11:00: [id number] 00 Nutrition enteral Nutrition Resolve 2018-102019-09-11 Mercedez therapy d 10-28 09:50:00 Ingrahm 11:00: [id number] 00 Elimination urinary Eliminatio Resolve 2018-102019-09-11 Mercedez incontinenc n d 10-28 09:50:00 Ingrahm e 11:00: [id number] 00 Safety fall risk Safety Resolve 2018-102019-09-11 Mercedez factor d 10-28 09:50:00 Ingrahm present 11:00: [id number] 00 Safety risk for Safety Resolve 2018-102019-09-23 Mercedez hospitaliza d 10-28 11:10:00 Ingrahm tion 11:00: [id number] 00 Safety risk for Safety Unknown 2018-10 Mercedez hospitaliza 11-24 Ingrahm tion 15:00: [id number] 00 Cardio hypertensio Cardiovasc Resolve 2019-11-25 Leanna n ular d 10-23 11:10:00 Regeczi 10:15: [id number] 00 Elimination urinary Eliminatio Resolve 2019-11-05 Leanna incontinenc n d 10-23 10:23:00 Regeczi e 10:15: [id number] 00 Elimination constipatio Eliminatio Resolve 2019-11-05 Leanna n n d 10-23 10:23:00 Regeczi 10:15: [id number] 00 Integument surgical Integument Resolve 2019-11-19 Mercedez wound d 10-28 10:50:00 Ingrahm present 10:50: [id number] 00 Nutrition enteral Nutrition Resolve 2019-11-25 Mercedez therapy d 10-28 11:10:00 Ingrahm 10:50: [id number] 00 Elimination UTI within Eliminatio Resolve 2019-11-05 Mercedez past 14 n d 10-28 10:23:00 Ingrahm days 10:50: [id number] 00 Activity self-care Activity Resolve 2019-11-05 Mercedez deficit d 10-28 10:23:00 Ingrahm 10:50: [id number] 00 Safety fall risk Safety Resolve 2019-11-05 Mercedez factor d 10-28 10:23:00 Ingrahm present 10:50: [id number] 00 Safety risk for Safety Resolve 2019-11-05 Mercedez hospitaliza d 10-28 10:23:00 Ingrahm tion 10:50: [id number] 00 Safety risk for Safety Active Roseline hospitaliza 2-12 [place] tion 11:00: [id number] 00 Nutrition enteral Nutrition Unknown Mercedez therapy 3-05 Ingrahm 08:45: [id number] 00 Integument surgical Integument Active Mercedez wound 3-06 Ingrahm present 08:45: [id number] 00 Neuro depressive Neuro/Emot Active Mercedez feelings ion 3- Ingrahm present 08:45: [id number] 00 Neuro confusion Neuro/Emot Active 2019- Mercedez present ion 3-06 Ingrahm 08:45: [id number] 00 Neuro anxiety Neuro/Emot Active 2019- Mercedez present ion 3- Ingrahm 08:45: [id number] 00 Safety fall risk Safety Active Mercedez factor 3- Ingrahm present 08:45: [id number] 00 Medication potential Meds Active Mercedez clinically 12-24 Ingrahm significant 08:45: [id number] medication 00 issue Allergies, Adverse Reactions, Alerts Allergy Allergy Status Severity Reaction(s) Onset Inactive Treating Comments Name Type Date Date Clinician latex Base Active Unknown Hives [facility] [id number] amoxicillin Base Active Unknown Anaphylaxis [facility] [id number] bee venom Base Active Unknown Anaphylaxis [facility] protein [facility]redient [facility] [id number] Botox Medication Active Unknown Anaphylaxis Mer[facility]ez Name ID 07-07 [facility] [id number] contrast Unknown Active Unknown Anaphylaxis [facility] dye 07[facility] [id number] Penicillins Allergen Active Unknown Anaphylaxis 2017- [facility] Group 07-07 Ingrm [id number] shellfish Base Active Unknown Anaphylaxis [facility] derived Ingredient 07-[facility] [id number] adhesive Base Active Unknown Hives [facility] tape [facility]redient 07[facility] [id number] nsaids Unknown Active Unknown stomach issues 2017- Mercedez 07-07 Ingrm [id number] oxycodone Base Active Unknown swelling [facility] Ingredient [facility] [id number] Betadine Medication Active Unknown Rash [facility] [id number] Hibiclens Medication Active Unknown Rash [facility] Name ID 07[facility] [id number] evironmenta Unknown Active Unknown hay fever, Rea l/seasonal watery eye, 07-07 Guidelli itching, [id number] sneeze, congestion povidone-io Base Active Unknown itching Rea dine Ingredient 07-07 Guidelli [id number] Iodine and Allergen Active Unknown Anaphylaxis Rea Iodide Group 07-07 Guidelli Containing [id number] Products albumin Base Active Unknown Anaphylaxis Rea colloid, Ingredient 07-07 Guidelli human [id number] fentanyl Base Active Unknown hallucinations Rea Ingredient 07-07 Guidelli [id number] Medications Ordered Filled Start Stop Current Ordering [...] Blegen Unknown Unknown Tears Tears 11-18 Tashia [facility] (polyvinyl (polyvinyl e alcohol) alcohol) 1.4 % [...] Blegen Unknown Unknown 4 mg 4 mg 02-06-29 Tashia FINCH disintegrat disintegrat e ing tablet [...] tartrate 25 tartrate 25 5-15 11-21 Tashia [facility] mg tablet mg tablet e folic acid [...] 1 mg tablet 6 06-11 Tashia FINCH e mupirocin 2 mupirocin 2 [...] 2018-10 No Blegen Unknown Unknown Respimat Respimat - Tashia FINCH 2.5 2.5 e mcg/actuati mcg/actuati [...] Blegen Unknown Unknown Lock Flush Lock Flush 11-24 Tashia FINCH (Porcine) (Porcine) e (PF) 100 (PF) 100 unit/mL unit/mL intravenous intravenous syringe syringe Vital Signs Vital Name Observation Time Observation Value Comments SYSTOLIC mm[Hg] 2019-12-30 18:10:49 172 mm[Hg] mm[Hg] Method: Sit SYSTOLIC mm[Hg] 2018-11-27 18:04:11 142 mm[Hg] mm[Hg] Method: Stand SYSTOLIC mm[Hg] 2019-06-27 18:07:43 122 mm[Hg] mm[Hg] Method: Lie DIASTOLIC mm[Hg] 2019-12-30 18:10:49 96 mm[Hg] mm[Hg] Method: Sit DIASTOLIC mm[Hg] 2018-11-27 18:04:11 84 mm[Hg] mm[Hg] Method: Stand DIASTOLIC mm[Hg] 2019-06-27 18:07:43 50 mm[Hg] mm[Hg] Method: Lie Procedures This patient has no known procedures. Results This patient has no known results.
--- OUTSIDE RECORDS SUMMARY | 2020-01-19 08:23 | XMS REPORT | Continuity of Care Document ---
:1955 External Reference #:[id number] Author Name Trish Combs M.D. (transmitted by agent of provider Carolyn Ocampo) Address [address] [place] [address] Care Team Providers Name Role Phone Aravind Rosas MD Care Team Information [place] [facility] Unavailable Rock Keith MD - Cardiovascular Care Team Information [place] [facility] Disease Javid Romo - Gastroenterology Care Team Information [place] [facility] Gary Frank - Cardiovascular Care Team Information [place] [facility] Zuleika Wright MD - Surgery Care Team Information [place] [facility] [phone] Problems Active Problems Provider Date Essential hypertension [...] Severe Itching, Swelling AT Eyes, 08/23/2016 Oxycodone Okay Benadryl Altered Mental Status Severe 10/30/2019 Medications Active Medications SIG Qnty Indications Ordering Date Provider Mometasone Furoate spray two sprays in 17units Trish P. each nostril every Blegen, M.D. 0 50mcg/Act Suspension day for allergic nose symptoms- Instead Of Fluticasone Azelastine HCL 2 sprays each nostril 30ml Trish P. (Nasal) once per day for Blegen, M.D. 0 137mcg/[place] allergic nose Solution Hydromorphone HCL 4 Tablets [...] this) Pump Supply Kit to use with jevity 1units Trish P. tube feeds Blegen, M.D. 9 Spironolactone 1 by mouth every day 30tabs Trish P. 25mg in morning for Blegen, M.D. 9 Tablets hypertension Atrovent HFA inhale 2 puffs by 12.9units Trish P. 17mcg/Act mouth up to every 6 Blegen, M.D. 9 Aerosol hours as needed for shortness of breath/wheezing Jevity 1.5 Pineda/Fiber jevity 1.5 with fiber 90units Trish Leonardo 2-3 cans per night Ramon Combs 9 [...] 20 meq Ramon Combs 8 per liter, twice per week for dehydration, lvot, infuse over 4 hours 250ml/1hr via port Saline Flush prefilled - use as 30ml Trish Leonardo 0.9% directed Ramon Combs 8 Solution Heparin Lock Flush use as directed QS Trish Leonardo Ramon Combs 8 100Unit/ML Solution Nicotrol inhale as directed 168units Z71.6 Trish PEusebio 10mg Inhaler when quit smoking- no Ramon Combs 8 more than 5 per day Levocetirizine take 1 tablet by 30tabs J30.9 Trish PEusebio Dihydrochloride mouth at bedtime for Ramon Combs 8 5mg allergies Tablets Fluticasone nasal spray- 2 sprays 16gm J30.9 Trish PEusebio Propionate each nostril every Dylan CombsDEusebio 8 50mcg/Act day as directed for Suspension allergic nose symptoms Ketotifen Fumarate 1 drop each eye twice 5ml Trish Leonardo per day for allergic Ramon Combs 7 0.025% Solution conjunctivitis Jevity 1.5 Pineda 5 cans via j tube as 150units Trish Leonardo Liquid directed per day Ramon Combs 7 Split Gauze Pads For use as directed bid 1monthsup Trish Leonardo J Tube Use to qid around j tube león Combs M.D. 7 site Tube Feeding as directed for j 1MonthSup Trish Leonardo Supplies/ Bags tube feeds- 5 cans león Combs M.D. 7 jevity per night Losartan Potassium 1 PO Qday For Blood 30tabs I10 Trish Leonardo Pressure Ramon Combs 7 100mg Tablets Epipen 2-Godwin use as directed for 2units Trish Leonardo bee sting allergy and Dylan CombsDEusebio 7 0.3mg/0.3ML Solution call 911 Auto-Inject Pump Feeding Supply use as directed. low 1units Trish Leonardo Kit profile button, 24 Ramon Combs 6 fr, 2.0cm Ondansetron 1 by mouth every 8 30tabs R11.0 Trish Leonardo 4mg Tablets hours as needed Ramon Combs 6 Dispers nausea/ vomiting Clopidogrel Bisulfate take one tablet by 90tabs Trish Leonardo mouth once daily Ramon Combs 5 75mg Tablets instead of aspirin Syringe/3ML/25G X use as directed to 3units Trish Leonardo 02/25" give vitamin b12 1 Ramon [...] Date Vitamin B-12 Injection-To Trish Combs M.D. 12/30/2019 1000g Injection Vitamin B-12 Injection-To Trish Combs M.D. 11/23/2019 1000g Injection Vitamin B-12 Injection-To Trish Combs M.D. 09/24/2019 1000g Injection Vitamin B-12 Injection-To Trish Combs M.D. 07/27/2019 1000g Injection Vitamin B-12 Injection-To Trish Combs M.D. 06/18/2019 1000g Injection Vitamin B-12 Injection-To Trish Combs M.D. 05/25/2019 1000g Injection Vitamin B-12 Injection-To Trish Combs M.D. [...] 07/04/2017 1000mcg Injection Vitamin B-12 Injection-To Trish Comsb M.D. 04/25/2017 1000mcg Injection Vitamin B-12 Injection-To [...] 07/04/2016 1000mcg Injection Vitamin B-12 Injection-To Trish oCmbs M.D. 02/20/2016 1000mcg Injection Vitamin B-12 Injection-To [...] CPT Code Status Date Vaccine Lot # [id number] Given 07/27/2019 Influenza Virus Vaccine, Quadrivalent, 3 Yr > [id number] Quad, Preserv Free 05275 Given 07/03/2018 Influenza Virus Vaccine, Quadrivalent, 3 Yr > Quad, Preserv Free 16987 Given 07/04/2017 Influenza Virus Vaccine, Quadrivalent, 3 Yr > [id number] Quad, Preserv Free 40544 Given 08/23/2016 Prevnar-13 Pneumococcal Conjugate Vaccine [id number] 68449 Given 07/04/2016 Influenza Virus Vaccine, Quadrivalent, 3 Yr > [id number] Quad, Preserv Free 51189 Given 09/05/2015 Influenza Virus Vaccine, Quadrivalent, 3 Yr > [id number] Quad, Preserv Free 41157 Given 07/28/2014 Influenza Virus Vaccine, Quadrivalent, 3 Yr > [id number] Quad, Preserv Free 13186 Given 06/30/2013 Influenza Vaccine-Preservative Free 3 Yrs And [id number] Above 85453 Given 08/14/2012 Pneumovax 23 (PPSV23) 65+ years or high risk 2 to [id number] 64 year old 96257 Given 08/14/2012 Influenza Vaccine-Preservative Free 3 Yrs And [id number] Above 12312 Given 07/09/2011 Influenza Vaccine-Preservative Free 3 Yrs And [id number] Above 02788 Given 03/04/2011 DT (Adult) 37932 Given 07/04/2010 Influenza Vaccine-Preservative Free 3 Yrs And [id number] Above 17360 Given 08/20/2006 Influenza Virus Vaccine, 3 Yrs And Above [id number] 22907 Given 09/01/2005 Pneumovax 23 (PPSV23) 65+ years or high risk 2 to 64 year old 06656 Given 09/01/2005 Influenza Virus Vaccine, 3 Yrs And Above Vital Signs Date Vital Result Comment 12/30/2019 10:15am Weight 116.00 lb Weight 52.618 kg BP Systolic 142 mmHg BP Diastolic 82 mmHg Heart Rate 57 /min Body Temperature 99.2 F O2 % BldC Oximetry 98 % 11/23/2019 12:29pm BP Systolic 148 mmHg BP Diastolic 80 mmHg Heart Rate 72 /min Body Temperature 97.5 F Respiratory Rate 16 /min O2 % BldC Oximetry 98 % Results Test Acquired Facility Test Result H/L Range Note Date Laboratory 12/19/2019 [facility] TSH (Thyroid 1.30 Normal 0.34-5.6 test finding [phone] Stimulating mcIU/mL 0 Horm) D Dimer Quantitative 781 ng/mL High Less Than 230 1 CKMB 12/19/2019 [facility] CKMB 1.9 ng/mL Normal 0.6-6.3 [phone] ng/mL Laboratory test 12/19/2019 [facility] Troponin-I 0.02 ng/mL <0.03 2 finding [phone] (TnI) CBC Auto Diff 12/19/2019 [facility] White 11.4 High 3.5-10.8 [phone] Blood 10^3/uL Count Red Blood Count 5.41 10^6/uL High 3.70-4.87 Hemoglobin 15.0 g/dL Normal 12.0-16.0 Hematocrit 45 % Normal 35-47 Mean Corpuscular Volume 82 fL Normal 80-97 Mean Corpuscular Hemoglobin 28 pg Normal 27-31 Mean Corpuscular HGB Conc 34 g/dL Normal 31-36 Red Cell Distribution Width 16 % High 10-15 Platelet Count 401 10^3/uL Normal 150-450 Mean Platelet Volume 7.5 fL Normal 7.4-10.4 Abs Neutrophils 9.7 10^3/uL High 1.5-7.7 Abs Lymphocytes 0.9 10^3/uL Low 1.0-4.8 Abs Monocytes 0.7 10^3/uL Normal 0-0.8 Abs Eosinophils 0.0 10^3/uL Normal 0-0.6 Abs Basophils 0.1 10^3/uL Normal 0-0.2 Abs Nucleated RBC 0.0 10^3/uL Granulocyte % 85.4 % Lymphocyte % 8.0 % Monocyte % 6.2 % Eosinophil % 0.0 % Basophil % 0.4 % Nucleated Red Blood Cells % 0.1 Inr/Protime 12/19/2019 [facility] Inr 1.02 Normal 0.82-1.09 3 [phone] Laboratory test 12/19/2019 [facility] Partial 34.5 Normal 26.0-38.0 finding [phone] Thrombo seconds Time PTT B-Type Natriuretic Peptide BNP 273 pg/mL High <=100 Lactic Acid 1.9 mmol/L Normal 0.5-2.0 4 Laboratory test 12/19/2019 [facility] Magnesium 1.5 mg/dL Low 1.9-2.7 finding [phone] Creatine Kinase 50 U/L Normal 10-223 Troponin-I (TnI) 0.01 ng/mL <0.03 5 Comp Metabolic 12/19/2019 [facility] Sodium 129 mmol/ L Low 135-145 Panel [phone] Potassium 3.5 mmol/L Normal 3.5-5.0 Chloride 94 mmol/L Low 101-111 Co2 Carbon Dioxide 20 mmol/L Low 22-32 Anion Gap 15 mmol/L High 2-11 Glucose 125 mg/dL High 70-100 Blood Urea Nitrogen 31 mg/dL High 6-24 Creatinine 1.02 mg/dL High 0.51-0.95 BUN/Creatinine Ratio 30.4 High 8-20 Calcium 9.1 mg/dL Normal 8.6-10.3 Total Protein 7.8 g/dL Normal 6.4-8.9 Albumin 4.4 g/dL Normal 3.2-5.2 Globulin 3.4 g/dL Normal 2-4 Albumin/Globulin Ratio 1.3 Normal 1-3 Total Bilirubin 0.60 mg/dL Normal 0.2-1.0 Alkaline Phosphatase 66 U/L Normal 34-104 Alt 12 U/L Normal 7-52 Ast 16 U/L Normal 13-39 Egfr Non- 54.6 >60 Egfr 66.0 >60 6 Venous Blood 10/25/2019 [facility] Venous Blood 7.42 Normal 7.32-7.43 Gas [phone] pH Venous Pco2 35 mmHg Low 41-51 Venous Po2 < 38.0 mmHg Normal 35-45 Venous O2 Saturation 63.3 % Low 70-80 Venous Blood Base Excess -1.3 mmol/L Low 0.0-4.0 7 Venous Bicarbonate Hco3 22.9 mmol/L Low 24-28 Laboratory test 10/25/2019 [facility] Troponin-I 0.01 ng/mL <0.03 8 finding [phone] (TnI) Urine Culture And 10/25/2019 [facility] Urine Culture SEE RESULT 9 Sensitivities [phone] BELOW Urine Drug SCR ED 10/25/2019 [facility] Urine None None [facility] [phone] Amphetamine Detected Detect Screen Urine Barbiturates Screen None Detected None Detect Urine Benzodiazepine Screen None Detected None Detect Urine Cannabinoids Screen None Detected None Detect Urine Cocaine Screen None Detected None Detect Urine Opiates Screen Presumptive Posi <SEE NOTE> Abnormal None Detect 10 Urine Phencyclidine Screen None Detected None Detect 11 Urinalysis Profile 10/25/2019 [facility] Urine Color Yellow [phone] Urine Appearance Cloudy Urine Specific [place] 1.005 Low 1.010-1.030 Urine pH 6.0 Normal [...] Epithelial Cell Present Abnormal Absent Laboratory test 10/25/2019 [facility] Acetaminophen < 15 g/mL 12 finding [phone] Alcohol < 10 mg/dL Normal <10 Salicylate < 2.50 mg/dL <30 TSH (Thyroid Stimulating Horm) 1.37 mcIU/mL Normal 0.34-5.60 Comp Metabolic 10/25/2019 [facility] Sodium 134 mmol/ L Low 135-145 Panel [phone] Potassium 3.9 mmol/L Normal 3.5-5.0 Chloride 99 [...] Egfr Non- 56.5 >60 Egfr 68.3 >60 13 CBC Auto 10/25/2019 [facility] White Blood 12.9 10^3/ uL High 3.5-10.8 Diff [phone] Count Red Blood Count 4.27 10^6/uL Normal 3.70-4.87 [...] % Nucleated Red Blood Cells % 0.0 Laboratory test 09/18/2019 [facility] Lipase 10 U/L Low 11.0-82.0 finding [phone] CBC Auto Diff 09/18/2019 [facility] White Blood 7.1 Normal 3.5-10.8 [phone] Count 10^3/uL Red Blood Count 4.42 10^6/uL [...] Blood Cells % 0.0 Comp Metabolic 09/18/2019 [facility] Sodium 137 mmol/ L Normal 135-145 Panel [phone] Potassium 3.1 mmol/L Low 3.5-5.0 Chloride 108 [...] Egfr Non- 98.7 >60 Egfr 119.5 >60 14 Laboratory test 09/18/2019 [facility] Troponin-I (TnI ) 0.01 ng/mL <0.03 15 finding [phone] Urinalysis 09/08/2019 [facility] Urine Color Yellow Profile [phone] Urine Appearance Clear Urine Specific [place] 1.016 Normal 1.010-1.030 Urine pH 5.0 Normal 5-9 Urine Urobilinogen Negative Negative Urine Ketones Negative Negative Urine Protein Negative Negative Urine Leukocytes Negative Negative Urine Blood Negative Negative Urine Nitrite Negative Negative Urine Bilirubin Negative Negative Urine Glucose Negative Negative Laboratory test 09/08/2019 [facility] Troponin-I (TnI ) 0.01 ng/mL <0.03 16 finding [phone] B-Type Natriuretic Peptide BNP 165 pg/mL High <=100 Comp Metabolic 09/08/2019 [facility] Sodium 127 mmol/ L Low 135-145 Panel [phone] Chloride 98 mmol/L Low 101-111 Co2 Carbon [...] Egfr Non- 81.6 >60 Egfr 98.7 >60 17 Potassium TNP mmol/L 3.5-5.0 18 Anion Gap 11 mmol/L Normal 2-11 Ast TNP U/L 13-39 19 Laboratory test 09/08/2019 [facility] Lactic Acid 1.6 mmol/L Normal 0.5-2.0 20 finding [phone] CBC Auto Diff 09/08/2019 [facility] White Blood 8.9 Normal 3.5-10.8 [phone] Count 10^3/uL Red Blood Count 5.16 10^6/uL High 3.70-4.87 [...] Blood Cells % 0.1 Laboratory test 09/08/2019 [facility] Potassium 3.2 mmol/L Low 3.5-5.0 finding [phone] Redraw Ast Redraw 18 U/L Normal 13-39 Magnesium 1.6 mg/dL Low 1.9-2.7 C Reactive Protein 3.34 mg/L Normal <8.01 CKMB 07/16/2019 [facility] CKMB ng/mL 0.8 ng/mL Normal 0.6-6.3 [phone] Laboratory test 07/16/2019 [facility] B-Type 55 pg/ mL <=100 finding [phone] Natriuretic Peptide BNP Laboratory test 07/16/2019 [facility] Magnesium 1.8 mg/dL Low 1.9-2.7 finding [phone] Creatine Kinase 21 U/L Normal 10-223 Troponin-I (TnI) 0.01 ng/mL <0.04 21 Comp Metabolic 07/16/2019 [facility] Sodium 130 mmol/ L Low 135-145 Panel [phone] Potassium 4.2 mmol/L Normal 3.5-5.0 Chloride 99 [...] Egfr Non- 71.2 >60 Egfr 86.1 >60 22 Laboratory test 07/16/2019 [facility] Lactic Acid 1.3 mmol/L Normal 0.5-2.0 23 finding [phone] CBC Auto Diff 07/16/2019 [facility] White Blood 6.1 Normal 3.5-10.8 [phone] Count 10^3/uL Red Blood Count 4.82 10^6/uL [...] Blood Cells % 0.1 Laboratory test 07/16/2019 [facility] Troponin-I (TnI ) 0.01 ng/mL <0.04 24 finding [phone] 1 Please note: The following may produce a false positive D Dimer test: - Rheumatoid factor greater than 60 IU/ml - Plasma hemoglobin greater than 0.05 gm/dl - Bilirubin greater than 50 mg/dl - Lipids greater than 1000 mg/dl - FDP greater than 20 ug/ml 2 Troponin-I testing on Plasma Separator Tubes (PST) has a known false positive rate of 0.20-0.40%. All positive troponins reflex immediately to secondary confirmatory testing. Using the [employer] DxI 800 Access Immunoassay systems, the 99th percentile upper reference limit was demonstrated to be < 0.03 ng/mL. 3 Standard intensity warfarin therapeutic range: 2.0-3.0 High intensity warfarin therapeutic range: 2.5-3.5 4 [facility] Severe Sepsis and Septic Shock Management Bundle Measure requires all lactic acids initially measuring >2.0 mmol/L be repeated. 5 Troponin-I testing on Plasma Separator Tubes [...] 5 Kidney failure <15 (or dialysis) 7 Reference ranges based on room air. 8 Troponin-I testing on Plasma Separator Tubes (PST) has a known false positive rate of 0.20-0.40%. All positive troponins reflex immediately to secondary confirmatory testing. Using the [employer] DxI 800 Access Immunoassay systems, the 99th percentile upper reference limit was demonstrated to be < 0.03 ng/mL. 9 SEE RESULT BELOW Name: ROBYISABEL Brigitte : [address]: Tunde Burt MD Acct: [id number] Unit: [id number] AGE: 64 Location: [place] [address] Re10/25/19 Dis: 10/27/19 SEX: F Status: DIS IN SPEC: [id number] ALLIE: 10/25/[address] [facility] [address]: Joaquin Gilmore MD REQ: [id number] RECD: 10/25/19 STATUS: LIBRA GOLDMAN DR: Trish Combs MD _ SOURCE: URINE SPDESC: ORDERED: Urine Culture Procedure Result Reported Site Urine Culture Final 10/29/19- 1334 ML No growth of clinically significant organisms * ML - Main Lab . END OF REPORT DEPARTMENT OF PATHOLOGY, [address] [place] [id number] Toan Guillaume M.D. Director [facility] # [id number] 10 Presumptive Positive Presumptive positive results are unconfirmed. 11 The urine specimen was tested at the listed cutoffs: Drug class test level (ng/mL) Amphetamines 500 Barbiturates 200 Benzodiazepine metabolites 200 Cocaine metabolites 150 Cannabinoids 50 Opiates 300 Pcp 25 Specimen was received without chain of custody. Results should be used for medical purposes only. 12 Therapeutic concentration: <50 ug/mL Toxic concentration: >120 ug/mL 13 Because ethnic data is not always readily [...] 15-29 5 Kidney failure <15 (or dialysis) 14 Because ethnic data is not always readily [...] 15-29 5 Kidney failure <15 (or dialysis) 15 Troponin-I testing on Plasma Separator Tubes (PST) has a known false positive rate of 0.20-0.40%. All positive troponins reflex immediately to secondary confirmatory testing. Using the [employer] DxI 800 Access Immunoassay systems, the 99th percentile upper reference limit was demonstrated to be < 0.03 ng/mL. 16 Troponin-I testing on Plasma Separator Tubes (PST) has a known false positive rate of 0.20-0.40%. All positive troponins reflex immediately to secondary confirmatory testing. Using the [employer] DxI 800 Access Immunoassay systems, the 99th percentile upper reference limit was demonstrated to be < 0.03 ng/mL. 17 Because ethnic data is not always [...] 5 Kidney failure <15 (or dialysis) 18 Specimen Hemolyzed. Result may not be valid. Unable to report test result due to hemolysis. 19 Unable to report test result due to hemolysis. 20 [facility] Severe Sepsis and Septic Shock Management Bundle Measure requires all lactic acids initially measuring >2.0 mmol/L be repeated. 21 Troponin-I testing on Plasma Separator Tubes (PST) has a known false positive rate of 0.20-0.40%. All positive troponins reflex immediately to secondary confirmatory testing. Using the [employer] DxI 800 Access Immunoassay systems, the 99th percentile upper reference limit was demonstrated to be < 0.03 ng/mL. 22 Because ethnic data is not always readily [...] 15-29 5 Kidney failure <15 (or dialysis) 23 [facility] Severe Sepsis and Septic Shock Management Bundle Measure requires all lactic acids initially measuring >2.0 mmol/L be repeated. 24 Troponin-I testing on Plasma Separator Tubes (PST) has a known false positive rate of 0.20-0.40%. All positive troponins reflex immediately to secondary confirmatory testing. Using the [employer] 800 Access Immunoassay systems, the 99th percentile upper reference limit was demonstrated to be < 0.03 ng/mL. Procedures Date Code Description Status 12/30/2019 77847 Therapeutic,Prophylactic,Or Diagnostic Inj,SC/Im Completed Specify Drug 11/23/2019 45521 Therapeutic,Prophylactic,Or Diagnostic Inj,SC/Im Completed Specify Drug 09/24/2019 55352 Therapeutic,Prophylactic,Or Diagnostic Inj,SC/Im Completed Specify Drug 07/27/2019 76559 Therapeutic,Prophylactic,Or Diagnostic Inj,SC/Im Completed Specify Drug 06/21/2016 06151623 Colonoscopy Completed Medical Devices Description No Information Available Encounters Type Date Location Provider Dx Diagnosis Office Visit 12/30/2019 Main Office Saskia Borges Essential ( primary) 10:15a MEusebioDEusebio hypertension R07.89 Other chest pain E53.8 Deficiency of other specified B group vitamins F41.9 Anxiety disorder, unspecified 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 R21 Rash and other nonspecific skin eruption Office Visit 11/23/2019 12:30p [facility] Trish Kruger Essential (primary) Ramon Combs hypertension E53.8 Deficiency of other specified B group vitamins R07.89 Other chest pain R09.81 Nasal congestion 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 Office Visit 10/30/2019 10:00a Main Office Trish Ramirez ( primary) Ramon Combs hypertension R07.89 Other chest pain N39.0 Urinary tract infection, site not specified E53.8 Deficiency of other specified B group vitamins R41.0 Disorientation, unspecified R09.81 Nasal congestion K31.84 Gastroparesis Office Visit 09/24/2019 1:45p Main Office Trish Leonardo I10 Essential ( primary) Ramon Combs hypertension R07.89 Other chest pain E86.0 Dehydration E53.8 Deficiency of other specified B group vitamins R06.00 Dyspnea, unspecified Office Visit 07/27/2019 1:00p [facility] Trish Leonardo R07.89 Other chest Blegen M.DEusebio pain E86.0 Dehydration I10 Essential (primary) hypertension E53.8 Deficiency of other specified B group vitamins R06.00 Dyspnea, unspecified G47.00 Insomnia, unspecified Z23 Encounter for immunization Assessments Date Code Description Provider 12/30/2019 I10 Essential (primary) hypertension Trish Combs M.D. 12/30/2019 R07.89 Other chest pain Trish Combs M.D. 12/30/2019 E53.8 Deficiency of other specified B group Trish Combs M.D. vitamins 12/30/2019 F41.9 Anxiety disorder, unspecified Trish Combs M.D. 12/30/2019 D48.7 Neoplasm of uncertain behavior of suzie Combs M.D. specified sites 12/30/2019 R21 Rash and other nonspecific skin eruption Trish Combs M.D. 11/23/2019 I10 Essential (primary) hypertension Trish Combs M.D. 11/23/2019 E53.8 Deficiency of other specified B group Trish Combs M.D. vitamins 11/23/2019 R07.89 Other chest pain Trish Combs M.D. 11/23/2019 R09.81 Nasal congestion Trish Combs M.D. 11/23/2019 D48.7 Neoplasm of uncertain behavior of suzie Combs M.D. specified sites 10/30/2019 I10 Essential (primary) hypertension Trish Combs M.D. 10/30/2019 R07.89 Other chest pain Trish Combs M.D. 10/30/2019 N39.0 Urinary tract infection, site not Trish Combs M.D. specified 10/30/2019 E53.8 Deficiency of other specified B group Trish Combs M.D. vitamins 10/30/2019 R41.0 Disorientation, unspecified Trish Combs M.D. 10/30/2019 R09.81 Nasal congestion Trish Combs [...] specified B group Trish Combs M.D. vitamins 07/27/2019 R06.00 Dyspnea, unspecified Trish Combs M.D. 07/27/2019 G47.00 Insomnia, unspecified Trish Combs M.D. 07/27/2019 Z23 Encounter for immunization Trish Combs M.D. Plan of Treatment Future Appointment(s):01/21/2020 12:00 pm - Trish Combs M.D. at Main [facility]2212/30/2019 - Trish Combs M.D.I10 Essential (primary) hypertensionComments:BP TENDS TO BE VERY ELEVATED WHEN IN PAIN AND OTHERWISE TENDS TO BE UNDER GOOD CONTROL. CONTINUE CURRENT MEDS.Follow up:F/U JANUARY AT [facility] OFFICE- END OF SESSION-Recommendations:-- YOUR BLOOD PRESSURE IS IMPROVED -- STAY ON THE METOPROLOL 25 MG 1 TABLET TWICE PER DAY -- STAY ON THE LOSARTAN 100 MG PER DAY -- STAY ON THE AMLODIPINE 10 MG PER DAY -- STAY ON THE [id number] MG 1 PER DAY IN THE MORNING -- INCREASE YOUR WATER INTAKE- AIM FOR 8 CUPS PER DAY- TRYADDING IN MORE WATER FLUSHES OF YOUR TUBE - - CONTINUE IV FLUIDS TO TWICE PER WEEK -- REMINDER TO GET ON WAIT LIST AT PHARMACY FOR THE SHINGRIX SHINGLES BEPOYISX27.89 Other chest painFollow up: .Recommendations:-- CONTINUE TO FOLLOW-UP WITH DR. 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 AGAIN RECOMMENDED GET ULTRASOUND TO FURTHER EVAL AND RESCHEDULE CONSULT WITH SURGEON, DR. IYER DID HER MASTECTOMY, WILL BE SEEING DR. SANFORD. PT HAD TO RESCHEDULE FROM LAST WEEK WHEN SICK.Follow up: .Recommendations:-- GET THE ULTRASOUND OF YOUR ARMPITS (AXILLAE) -- RESCHEDULE YOUR CONSULT WITH DR. SANFORD - [phone]-- LET ME KNOW IF DIFFICULTY GETTING [id number] Rash and other nonspecific skin eruptionComments:NO RASH CURRENTLY BUT CAN GET ALLERGIES/ ITCHY AT TIMES. TO STAY OFF BENADRYL UNLESS ABSOLUTELY NEEDED DUE TO MENTAL STATUS CHANGES WITH IT IN THE PAST. TO TRY CETIRIZINE 10 MG AT BEDTIME- HAS NOT TRIED THAT IN YEARS. DISCUSSED JUST ONCE PER DAY.Recommendations:-- YOU CAN TAKE CETIRIZINE/ ZYRTEC 10 MG ONCE PER DAY EVERY DAY OR AT NIGHT NEEDED- JUST ONCE PERDAY FOR ALLERGIES/ ITCHING -- AVOID THE BENADRYL Functional Status Functional Condition Comment Date Status Glasses Active Mental Status Description No Information Available Referrals Refer to Reason for Referral Status Appt Date Melidna Sanford MD CONSULT DR. IYER (HE DID HER MASTECTOMY Scheduled 2009) FOR AXILLARY MASS, H/O BREAST CANCER MAS transportion confirmed: 12/17/19, 1 pm last picker for 2 pm appt. Pt will call [phone] when ready for return transportion home Conf# [id number] Pt notified. [address] [facility] [address] [phone] Rock Keith MD F/U DR. KEITH FOR CARDIOLOGY- LVOT ON RECENT ECHO, Closed DIFFICULTY TO CONTROL HTN - - Please contact Pt to schedule appt. - - Please fax appointment date/time to [facility], [place], . [facility] [address] [place] [address] [phone]
--- OUTSIDE RECORDS SUMMARY | 2020-01-19 08:23 | XMS REPORT ---
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 w/o ang pctrs ang pctrs Encounter Encounter Diagnosis Active Mercedez for for 07-07 Ingrahm attention attention [id number] to to gastrostomy gastrostomy Gastro-esop Gastro-esop Diagnosis Active Mercedez hageal hageal 07-07 Ingrahm reflux reflux [id number] disease disease without without esophagitis esophagitis Other Other Diagnosis Active Mercedez specified specified 07-07 Ingrahm arthritis, arthritis, [id number] unspecified unspecified site site Essential Essential Diagnosis Active Mer[facility]ez (primary) (primary) 07-07 Ingrahm hypertensio hypertensio [id number] n n snf snf Diagnosis Active Mercedez (current) (current) Ingrahm use of use of [id number] anticoagula anticoagula nts nts Nicotine Nicotine Diagnosis Active Mercedez dependence, dependence, Ingrahm cigarettes, cigarettes, [id number] uncomplicat uncomplicat ed ed Personal Personal Diagnosis Active Mercedez history of history of Ingrahm malignant malignant [id number] neoplasm of neoplasm of breast breast Prsnl hx of Prsnl hx of Diagnosis Active Mercedez TIA (TIA), TIA (TIA), Ingrahm and cereb and cereb [id number] infrc w/o infrc w/o resid resid deficits deficits Pain frequent Pain Mgmt Resolve 2018-11-26 Ana pain d 9 16:15:00 [place] 13:30: [id number] 00 Pain severe pain Pain Mgmt Resolve 2018-11-26 Ana d 9 16:15:00 [place] 13:30: [id number] 00 Endo/Han anti-coagul Endo/Han Resolve 2019-02-06 Ana ation d 07-07 11:15:00 [place] therapy 13:30: [id number] 00 Integument surgical Integument Resolve 2018-08-05 Rea wound d 07-07 13:35:00 [place] present 13:30: [id number] 00 Nutrition nutritional Nutrition Resolve 2019-01-02 Ana restriction d 07-07 10:00:00 [place] s 13:30: [id number] 00 Nutrition changing Nutrition Resolve 2019-01-02 Ana weight/appe d 07-07 10:00:00 [place] tite 13:30: [id number] 00 Nutrition nutritional Nutrition Resolve 2019-01-02 Ana risk d 07-07 10:00:00 [place] 13:30: [id number] 00 Nutrition enteral Nutrition Resolve 2019-02-06 Ana therapy d 07-07 11:15:00 [place] 13:30: [id number] 00 Safety structural Safety Resolve 2019-02-06 Ana barriers d 07-07 11:15:00 [place] present 13:30: [id number] 00 Safety fall risk Safety Resolve 2019-02-06 Ana factor d 07-07 11:15:00 [place] present 13:30: [id number] 00 Safety risk for Safety Resolve 2019-02-06 Ana hospitaliza d 07-07 11:15:00 [place] tion 13:30: [id number] 00 Medication potential Meds Resolve 2019-02-06 Ana clinically d 07-07 11:15:00 [place] significant 13:30: [id number] medication 00 issue Musculoskel requires Musculoske Resolve 2019-02-06 Ana etal human letal d 07-07 11:15:00 [place] assist to 13:30: [id number] leave home 00 IV IV present IV Resolve 2019-02-06 Rea d 9-30 11:15:00 [place] [id number] Respiratory dyspnea Respirator Resolve 2017-102019-02-06 Mercedez present y d 0-16 11:15:00 Ingra[place] 13:35: [id number] 00 Neuro confusion Neuro/Emot Unknown 2017-10 Mer[facility]ez present ion 0-16 Ingra[place] 13:35: [id number] 00 Neuro depressive Neuro/Emot Unknown 2017-10 Mercedez feelings ion 0-16 Ingra[place] present 13:35: [id number] 00 Safety can be left Safety Resolve 2017-102019-02-06 Mercedez alone for d 0-18 11:15:00 Ingrahm only short 08:10: [id number] periods 00 Integument surgical Integument Resolve 2017-102018-10-30 Shila wound d 1-15 10:10:00 Brian present 08:55: [id number] 00 Elimination GI drain or Eliminatio Resolve 2017-102019-02-06 Shila tube n d 1-15 11:15:00 Brian present 08:55: [id number] 00 Neuro anxiety Neuro/Emot Resolve 2017-102019-02-06 Shila present ion d 1-15 11:15:00 Brian 08:55: [id number] 00 Medication injectable Meds Resolve 2017-102019-02-06 Shila med d 1-15 11:15:00 Brian assistance 08:55: [id number] required 00 Safety fire risk Safety Resolve 2017-102019-02-06 Shila present d 1-15 11:15:00 Brian 13:00: [id number] 00 Elimination urinary Eliminatio Resolve 2019-02-06 Mercedez incontinenc n d - 11:15:00 Ingrahm e 14:20: [id number] 00 Pain frequent Pain Mgmt Resolve 2019-02-06 Mercedez pain d 2-15 11:15:00 Ingrahm 10:15: [id number] 00 Safety risk for Safety Unknown Leanna hospitaliza 02-06 Regeczi tion 15:45: [id number] 00 Respiratory lung sounds Respirator Resolve 2019-04-03 Leanna deficit y d 02-10 10:01:00 Regeczi 13:20: [id number] 00 Respiratory smoker Respirator Resolve 2019-04-03 Leanna y d 4-29 10:01:00 Regeczi 12:10: [id number] 00 Respiratory dyspnea Respirator Resolve 2019-06-05 Mercedez present y d 5-15 10:30:00 Ingrahm 09:00: [id number] 00 Integument surgical Integument Resolve 2019-03-27 Mercedez wound d 5-15 09:15:00 Ingrahm present 09:00: [id number] 00 Nutrition enteral Nutrition Resolve 2019-03-27 Mercedez therapy d -15 09:15:00 Ingrahm 09:00: [id number] 00 Elimination urinary Eliminatio Resolve 2019-04-10 Mercedez incontinenc n d 15 09:30:00 Ingrahm e 09:00: [id number] 00 Neuro confusion Neuro/Emot Resolve 2019-11-25 Mercedez present ion d 15 11:10:00 Ingrahm 09:00: [id number] 00 Neuro anxiety Neuro/Emot Resolve 2019-11-25 Mercedez present ion d 515 11:10:00 Ingrahm 09:00: [id number] 00 Neuro depressive Neuro/Emot Resolve 2019-11-25 Mercedez feelings ion d 15 11:10:00 Ingrahm present 09:00: [id number] 00 Neuro impaired Neuro/Emot Resolve 2019-11-25 Mercedez decision-ma ion d 15 11:10:00 [facility] sonali 09:00: [id number] 00 Activity self-care Activity Resolve 2019-05-20 Mercedez deficit d -15 11:15:00 Ingra[place] 09:00: [id number] 00 Safety fall risk Safety Resolve 2019-07-17 Mercedez factor d 5-15 10:35:00 Ingrahm present 09:00: [id number] 00 Safety risk for Safety Resolve 2019-07-17 Mercedez hospitaliza d 5-15 10:35:00 Ingrahm tion 09:00: [id number] 00 Medication potential Meds Resolve 2019-03-27 Mercedez clinically d 5-15 09:15:00 Ingrahm significant 09:00: [id number] medication 00 issue Integument surgical Integument Resolve 2019-05-20 Mercedez wound d 7-12 11:15:00 Ingrahm present 10:00: [id number] 00 Nutrition enteral Nutrition Resolve 2019-06-26 Mercedez therapy d 7-12 10:35:00 Ingrahm 10:00: [id number] 00 Respiratory dyspnea Respirator Resolve 2019-08-07 Leanna present y d 06-26 10:25:00 Regeczi 10:35: [id number] 00 Respiratory smoker Respirator Resolve 2019-07-01 Leanna y d 06-26 10:15:00 Regeczi 10:35: [id number] 00 Endo/Han anti-coagul Endo/Han Resolve 2019-07-23 Leanna ation d 06-26 10:15:00 Regeczi therapy 10:35: [id number] 00 Elimination urinary Eliminatio Resolve 2019-07-23 Leanna incontinenc n d 06-26 10:15:00 Regeczi e 10:35: [id number] 00 Elimination nausea/vomi Eliminatio Resolve 2019-07-01 Leanna serranog n d 06-26 10:15:00 Regeczi 10:35: [id number] 00 Integument surgical Integument Resolve 2019-07-23 Mercedez wound d 9-11 10:15:00 Ingrahm present 10:15: [id number] 00 Nutrition enteral Nutrition Resolve 2019-07-23 Mercedez therapy d 07-01 10:15:00 Ingrahm 10:15: [id number] 00 Respiratory smoker Respirator Resolve 2019-07-16 Leanna y d 07-16 10:05:00 Regeczi 10:05: [id number] 00 Elimination diarrhea Eliminatio Resolve 2019-07-23 Leanna n d 07-17 10:15:00 Regeczi 10:35: [id number] 00 Cardio hypertensio Cardiovasc Resolve 2018-102019-07-30 Leanna olivares 0 10:00:00 Regeczi 10:15: [id number] 00 Safety risk for Safety Resolve 2018-102019-07-23 Leanna hospitaliza d 0-03 10:15:00 Regeczi tion 10:15: [id number] 00 24 Hr Diet knowledge/s NT: 24Hr Resolve 2018-102019-07-23 Wen kill Diet d 0-03 15:00:00 [place] deficit - 15:00: [id number] pt 00 Nutritional eating NT: Resolve 2018-102019-07-23 Wen Barrier difficultie Barriers d 0-03 15:00:00 [place] s present 15:00: [id number] Safety risk for Safety Resolve 2018-102019-08-07 Roseline hospitaliza d 0-04 10:25:00 [place] tion 14:00: [id number] 00 Social financial MURIEL: Active 2018-10 [facility] Services resource Social 0-04 [place] deficit Services 14:00: [id number] 00 Social support MURIEL: Active 2018-10 [facility] deficit Social 0-04 [place] Services 14:00: [id number] 00 Social knowledge/s MURIEL: Active 2018-10 [facility] kill Social 0-04 [place] deficit - Services 14:00: [id number] pt 00 Social financial MURIEL: Unknown 2018-10 [facility] Services resource Social 0-10 In[facility]hm deficit Services 15:00: [id number] 00 Social knowledge/s MURIEL: Unknown 2018-10 [facility] Services kill Social 0-10 Ingrahm deficit - Services 15:00: [id number] pt 00 Respiratory lung sounds Respirator Resolve 2018-102019-08-07 Leanna deficit y d 0-18 10:25:00 Regeczi 10:25: [id number] 00 Respiratory dyspnea Respirator Resolve 2018-102019-10-23 Mercedez present y d 10-28 10:15:00 Ingrahm 11:00: [id number] 00 Integument surgical Integument Resolve 2018-102019-09-11 Mercedez wound d 10-28 09:50:00 Ingrahm present 11:00: [id number] 00 Nutrition enteral Nutrition Resolve 2018-102019-09-11 Mercedez therapy d 10-28 09:50:00 Ingrahm 11:00: [id number] 00 Elimination urinary Eliminatio Resolve 2018-102019-09-11 Mercedez incontinenc n d 10-28 09:50:00 Ingrahm e 11:00: [id number] 00 Safety fall risk Safety Resolve 2018-102019-09-11 Mercedez factor d 10-28 09:50:00 Ingrahm present 11:00: [id number] 00 Safety risk for Safety Resolve 2018-102019-09-23 Mercedez hospitaliza d 10-28 11:10:00 Ingrahm tion 11:00: [id number] 00 Safety risk for Safety Unknown 2018-10 Mercedez hospitaliza 11-24 Ingrahm tion 15:00: [id number] 00 Cardio hypertensio Cardiovasc Resolve 2019-11-25 Leanna n ular d 10-23 11:10:00 Regeczi 10:15: [id number] 00 Elimination urinary Eliminatio Resolve 2019-11-05 Leanna incontinenc n d 10-23 10:23:00 Regeczi e 10:15: [id number] 00 Elimination constipatio Eliminatio Resolve 2019-11-05 Leanna n n d 10-23 10:23:00 Regeczi 10:15: [id number] 00 Integument surgical Integument Resolve 2019-11-19 Mercedez wound d 10-28 10:50:00 Ingrahm present 10:50: [id number] 00 Nutrition enteral Nutrition Resolve 2019-11-25 Mercedez therapy d 10-28 11:10:00 Ingrahm 10:50: [id number] 00 Elimination UTI within Eliminatio Resolve 2019-11-05 Mercedez past 14 n d 10-28 10:23:00 Ingrahm days 10:50: [id number] 00 Activity self-care Activity Resolve 2019-11-05 Mercedez deficit d 10-28 10:23:00 Ingrahm 10:50: [id number] 00 Safety fall risk Safety Resolve 2019-11-05 Mercedez factor d 10-28 10:23:00 Ingrahm present 10:50: [id number] 00 Safety risk for Safety Resolve 2019-11-05 Mercedez hospitaliza d 10-28 10:23:00 Ingrahm tion 10:50: [id number] 00 Safety risk for Safety Active Roseline hospitaliza 2-12 [place] tion 11:00: [id number] 00 Nutrition enteral Nutrition Unknown Mercedez therapy 3- Ingrahm 08:45: [id number] 00 Integument surgical Integument Active Mercedez wound 12-24 Ingrahm present 08:45: [id number] 00 Neuro depressive Neuro/Emot Active Mercedez feelings ion - Ingrahm present 08:45: [id number] 00 Neuro confusion Neuro/Emot Active Mercedez present ion 3- Ingrahm 08:45: [id number] 00 Neuro anxiety Neuro/Emot Active Mercedez present ion 12-24 Ingrahm 08:45: [id number] 00 Safety fall risk Safety Active Mercedez factor 12-24 Ingrahm present 08:45: [id number] 00 Medication potential Meds Resolve 2019-12-29 Mercedez clinically d 12-24 10:15:00 Ingrahm significant 08:45: [id number] medication 00 issue Allergies, Adverse Reactions, Alerts Allergy Allergy Status Severity Reaction(s) Onset Inactive Treating Comments Name Type Date Date Clinician latex Base Active Unknown [facility]ives [id number] amoxicillin Base Active Unknown Anaphylaxis [facility] [id number] bee venom Base Active Unknown Anaphylaxis [facility] [id number] Botox Medication Active Unknown Anaphylaxis Mercedez Name ID 07-07 [facility] [id number] contrast Unknown Active Unknown Anaphylaxis [facility] [id number] Penicillins Allergen Active Unknown Anaphylaxis Mercedez Group 07-07 Ingrm [id number] shellfish Base Active Unknown Anaphylaxis Mercedez derived Ingredient 07-07 Ingrm [id number] adhesive Base Active Unknown Hives [facility] [id number] nsaids Unknown Active Unknown stomach issues Mercedez 07-07 Ingrm [id number] oxycodone Base Active Unknown swelling Mercedez Ingredient 07-07 [facility] [id number] Betadine Medication Active Unknown Rash [facility] [id number] Hibiclens Medication Active Unknown Rash Mercedez Name ID 07-07 Janettegurpreet [id number] evironmenta Unknown Active Unknown hay fever, Rea l/seasonal watery eye, 07-07 Guidelli itching, [id number] sneeze, congestion povidone-io Base Active Unknown itching Rea dine Ingredient 07-07 Guidelli [id number] Iodine and Allergen Active Unknown Anaphylaxis Rea Iodide Group 07-07 Guidelli Containing [id number] Products albumin Base Active Unknown Anaphylaxis Rea colloid, Ingredient 07-07 Guidelli human [id number] fentanyl Base Active Unknown hallucinations Rea Ingredient 07-07 Guidelli [id number] Medications Ordered Filled Start Stop Current Ordering [...] Unknown Unknown 64 mg 64 mg 4-30 aTshia FINCH (magnesium (magnesium e chloride) chloride) tablet,linda [...] Observation Time Observation Value Comments SYSTOLIC mm[Hg] 2020-01-04 18:10:54 152 mm[Hg] mm[Hg] Method: Sit SYSTOLIC mm[Hg] 2018-11-27 18:04:11 142 mm[Hg] mm[Hg] Method: Stand SYSTOLIC mm[Hg] 2019-06-27 18:07:43 122 mm[Hg] mm[Hg] Method: Lie DIASTOLIC mm[Hg] 2020-01-04 18:10:54 84 mm[Hg] mm[Hg] Method: Sit DIASTOLIC mm[Hg] 2018-11-27 18:04:11 84 mm[Hg] mm[Hg] Method: Stand DIASTOLIC mm[Hg] 2019-06-27 18:07:43 50 mm[Hg] mm[Hg] Method: Lie Procedures This patient has no known procedures. Results This patient has no known results.
--- OUTSIDE RECORDS SUMMARY | 2020-01-19 08:23 | XMS REPORT ---
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 [id number] [place] coronary coronary artery w/o artery w/o ang pctrs ang pctrs Encounter Encounter Diagnosis Active Mercedez for for 07-07 Ingrahm attention attention [id number] to to gastrostomy gastrostomy Gastro-esop Gastro-esop Diagnosis Active Mercedez hageal hageal 07-07 Ingrahm reflux reflux [id number] disease disease without without esophagitis esophagitis Other Other Diagnosis Active Mercedez specified specified 07-07 Ingrahm arthritis, arthritis, [id number] unspecified unspecified site site Essential Essential Diagnosis Active Mercedez (primary) (primary) 07-07 Ingrahm hypertensio hypertensio [id number] n n CHCF CHCF Diagnosis Active Mercedez (current) (current) Ingrahm use of use of [id number] anticoagula anticoagula nts nts Nicotine Nicotine Diagnosis Active Mercedez dependence, dependence, Ingrahm cigarettes, cigarettes, [id number] uncomplicat uncomplicat ed ed Personal Personal Diagnosis Active Mercedez history of history of Ingrahm malignant malignant [id number] neoplasm of neoplasm of breast breast Prsnl hx of Prsnl hx of Diagnosis Active Mercedez TIA (TIA), TIA (TIA), Ingrahm and cereb and cereb [id number] infrc w/o infrc w/o resid resid deficits deficits Pain frequent Pain Mgmt Resolve 2018-11-26 Ana pain d 9 16:15:00 [place] 13:30: [id number] 00 Pain severe pain Pain Mgmt Resolve 2018-11-26 Ana d 9 16:15:00 [place] 13:30: [id number] 00 Endo/Han anti-coagul Endo/Han Resolve 2019-02-06 Ana ation d 07-07 11:15:00 [place] therapy 13:30: [id number] 00 Integument surgical Integument Resolve 2018-08-05 Rea wound d 07-07 13:35:00 [place] present 13:30: [id number] 00 Nutrition nutritional Nutrition Resolve 2019-01-02 Ana restriction d 07-07 10:00:00 [place] s 13:30: [id number] 00 Nutrition changing Nutrition Resolve 2019-01-02 Ana weight/appe d 07-07 10:00:00 [place] tite 13:30: [id number] 00 Nutrition nutritional Nutrition Resolve 2019-01-02 Ana risk d 07-07 10:00:00 [place] 13:30: [id number] 00 Nutrition enteral Nutrition Resolve 2019-02-06 Ana therapy d 07-07 11:15:00 [place] 13:30: [id number] 00 Safety structural Safety Resolve 2019-02-06 Ana barriers d 07-07 11:15:00 [place] present 13:30: [id number] 00 Safety fall risk Safety Resolve 2019-02-06 Ana factor d 07-07 11:15:00 [place] present 13:30: [id number] 00 Safety risk for Safety Resolve 2019-02-06 Ana hospitaliza d 07-07 11:15:00 [place] tion 13:30: [id number] 00 Medication potential Meds Resolve 2019-02-06 Ana clinically d 07-07 11:15:00 [place] significant 13:30: [id number] medication 00 issue Musculoskel requires Musculoske Resolve 2019-02-06 Ana etal human letal d 07-07 11:15:00 [place] assist to 13:30: [id number] leave home 00 IV IV present IV Resolve 2019-02-06 Rea d 9-30 11:15:00 Lissette [id number] Respiratory dyspnea Respirator Resolve 2017-102019-02-06 Mercedez present y d 0-16 11:15:00 Ingrahm 13:35: [id number] 00 Neuro confusion Neuro/Emot Unknown 2017-10 Mercedez present ion 0-16 Ingrahm 13:35: [id number] 00 Neuro depressive Neuro/Emot Unknown 2017-10 Mercedez feelings ion 0-16 Ingrahm present 13:35: [id number] 00 Safety can be left Safety Resolve 2017-102019-02-06 Mercedez alone for d 0-18 11:15:00 Ingrahm only short 08:10: [id number] periods 00 Integument surgical Integument Resolve 2017-102018-10-30 Shila wound d 1-15 10:10:00 Brian present 08:55: [id number] 00 Elimination GI drain or Eliminatio Resolve 2017-102019-02-06 Shila tube n d 1-15 11:15:00 Brian present 08:55: [id number] 00 Neuro anxiety Neuro/Emot Resolve 2017-102019-02-06 Shila present ion d 1-15 11:15:00 Brian 08:55: [id number] 00 Medication injectable Meds Resolve 2017-102019-02-06 Shila med d 1-15 11:15:00 Brian assistance 08:55: [id number] required 00 Safety fire risk Safety Resolve 2017-102019-02-06 Shila present d 1-15 11:15:00 Brian 13:00: [id number] 00 Elimination urinary Eliminatio Resolve 2019-02-06 Mercedez incontinenc n d - 11:15:00 Ingrahm e 14:20: [id number] 00 Pain frequent Pain Mgmt Resolve 2019-02-06 Mercedez pain d 2-15 11:15:00 Ingrahm 10:15: [id number] 00 Safety risk for Safety Unknown Leanna hospitaliza 02-06 Regeczi tion 15:45: [id number] 00 Respiratory lung sounds Respirator Resolve 2019-04-03 Leanna deficit y d 02-10 10:01:00 Regeczi 13:20: [id number] 00 Respiratory smoker Respirator Resolve 2019-04-03 Leanna y d 4-29 10:01:00 Regeczi 12:10: [id number] 00 Respiratory dyspnea Respirator Resolve 2019-06-05 Mercedez present y d 5-15 10:30:00 Ingrahm 09:00: [id number] 00 Integument surgical Integument Resolve 2019-03-27 Mercedez wound d 5-15 09:15:00 Ingrahm present 09:00: [id number] 00 Nutrition enteral Nutrition Resolve 2019-03-27 Mercedez therapy d -15 09:15:00 Ingrahm 09:00: [id number] 00 Elimination urinary Eliminatio Resolve 2019-04-10 Mercedez incontinenc n d 15 09:30:00 Ingrahm e 09:00: [id number] 00 Neuro confusion Neuro/Emot Resolve 2019-11-25 Mercedez present ion d 15 11:10:00 Ingrahm 09:00: [id number] 00 Neuro anxiety Neuro/Emot Resolve 2019-11-25 Mercedez present ion d 515 11:10:00 Ingrahm 09:00: [id number] 00 Neuro depressive Neuro/Emot Resolve 2019-11-25 Mercedez feelings ion d 15 11:10:00 Ingrahm present 09:00: [id number] 00 Neuro impaired Neuro/Emot Resolve 2019-11-25 Mercedez decision-ma ion d 15 11:10:00 [facility] sonali 09:00: [id number] 00 Activity self-care Activity Resolve 2019-05-20 Mercedez deficit d -15 11:15:00 Ingrahm 09:00: [id number] 00 Safety fall risk Safety Resolve 2019-07-17 Mercedez factor d 5-15 10:35:00 Ingrahm present 09:00: [id number] 00 Safety risk for Safety Resolve 2019-07-17 Mercedez hospitaliza d 5-15 10:35:00 Ingrahm tion 09:00: [id number] 00 Medication potential Meds Resolve 2019-03-27 Mercedez clinically d 5-15 09:15:00 Ingrahm significant 09:00: [id number] medication 00 issue Integument surgical Integument Resolve 2019-05-20 Mercedez wound d 7-12 11:15:00 Ingrahm present 10:00: [id number] 00 Nutrition enteral Nutrition Resolve 2019-06-26 Mercedez therapy d 7-12 10:35:00 Ingrahm 10:00: [id number] 00 Respiratory dyspnea Respirator Resolve 2019-08-07 Leanna present y d 06-26 10:25:00 Regeczi 10:35: [id number] 00 Respiratory smoker Respirator Resolve 2019-07-01 Leanna y d 06-26 10:15:00 Regeczi 10:35: [id number] 00 Endo/Han anti-coagul Endo/Han Resolve 2019-07-23 Leanna ation d 06-26 10:15:00 Regeczi therapy 10:35: [id number] 00 Elimination urinary Eliminatio Resolve 2019-07-23 Leanna incontinenc n d 06-26 10:15:00 Regeczi e 10:35: [id number] 00 Elimination nausea/vomi Eliminatio Resolve 2019-07-01 Leanna serranog n d 06-26 10:15:00 Regeczi 10:35: [id number] 00 Integument surgical Integument Resolve 2019-07-23 Mercedez wound d 9-11 10:15:00 Ingrahm present 10:15: [id number] 00 Nutrition enteral Nutrition Resolve 2019-07-23 Mercedez therapy d 07-01 10:15:00 Ingrahm 10:15: [id number] 00 Respiratory smoker Respirator Resolve 2019-07-16 Leanna y d 07-16 10:05:00 Regeczi 10:05: [id number] 00 Elimination diarrhea Eliminatio Resolve 2019-07-23 Leanna n d 07-17 10:15:00 Regeczi 10:35: [id number] 00 Cardio hypertensio Cardiovasc Resolve 2018-102019-07-30 Leanna olivares 0 10:00:00 Regeczi 10:15: [id number] 00 Safety risk for Safety Resolve 2018-102019-07-23 Leanna hospitaliza d 0-03 10:15:00 Regeczi tion 10:15: [id number] 00 24 Hr Diet knowledge/s NT: 24Hr Resolve 2018-102019-07-23 Wen kill Diet d 0-03 15:00:00 [place] deficit - 15:00: [id number] pt 00 Nutritional eating NT: Resolve 2018-102019-07-23 Wen Barrier difficultie Barriers d 0-03 15:00:00 [place] s present 15:00: [id number] Safety risk for Safety Resolve 2018-102019-08-07 Roseline hospitaliza d 0-04 10:25:00 [place] tion 14:00: [id number] 00 Social financial MURIEL: Active 2018-10 Roseline Services resource Social 0-04 [place] deficit Services 14:00: [id number] 00 Social support MURIEL: Active 2018-10 [facility] Services deficit Social 0-04 [place] Services 14:00: [id number] 00 Social knowledge/s MURIEL: Active 2018-10 [facility]eline Services kill Social 0-04 [place] deficit - Services 14:00: [id number] pt 00 Social financial MURIEL: Unknown 2018-10 Mercedez Services resource Social 0-10 Ingrahm deficit Services 15:00: [id number] 00 Social knowledge/s MURIEL: Unknown 2018-10 Mercedez Services kill Social 0-10 Ingrahm deficit - Services 15:00: [id number] pt 00 Respiratory lung sounds Respirator Resolve 2018-102019-08-07 Leanna deficit y d 0-18 10:25:00 Regeczi 10:25: [id number] 00 Respiratory dyspnea Respirator Resolve 2018-102019-10-23 Mercedez present y d 10-28 10:15:00 Ingrahm 11:00: [id number] 00 Integument surgical Integument Resolve 2018-102019-09-11 Mercedez wound d 10-28 09:50:00 Ingrahm present 11:00: [id number] 00 Nutrition enteral Nutrition Resolve 2018-102019-09-11 Mercedez therapy d 10-28 09:50:00 Ingrahm 11:00: [id number] 00 Elimination urinary Eliminatio Resolve 2018-102019-09-11 Mercedez incontinenc n d 10-28 09:50:00 Ingrahm e 11:00: [id number] 00 Safety fall risk Safety Resolve 2018-102019-09-11 Mercedez factor d 10-28 09:50:00 Ingrahm present 11:00: [id number] 00 Safety risk for Safety Resolve 2018-102019-09-23 Mercedez hospitaliza d 10-28 11:10:00 Ingrahm tion 11:00: [id number] 00 Safety risk for Safety Unknown 2018-10 Mercedez hospitaliza 11-24 Ingrahm tion 15:00: [id number] 00 Cardio hypertensio Cardiovasc Resolve 2019-11-25 Leanna n ular d 10-23 11:10:00 Regeczi 10:15: [id number] 00 Elimination urinary Eliminatio Resolve 2019-11-05 Leanna incontinenc n d 10-23 10:23:00 Regeczi e 10:15: [id number] 00 Elimination constipatio Eliminatio Resolve 2019-11-05 Leanna n n d 10-23 10:23:00 Regeczi 10:15: [id number] 00 Integument surgical Integument Resolve 2019-11-19 Mercedez wound d 10-28 10:50:00 Ingrahm present 10:50: [id number] 00 Nutrition enteral Nutrition Resolve 2019-11-25 Mercedez therapy d 10-28 11:10:00 Ingrahm 10:50: [id number] 00 Elimination UTI within Eliminatio Resolve 2019-11-05 Mercedez past 14 n d 10-28 10:23:00 Ingrahm days 10:50: [id number] 00 Activity self-care Activity Resolve 2019-11-05 Mercedez deficit d 10-28 10:23:00 Ingrahm 10:50: [id number] 00 Safety fall risk Safety Resolve 2019-11-05 Mercedez factor d 10-28 10:23:00 Ingrahm present 10:50: [id number] 00 Safety risk for Safety Resolve 2019-11-05 Mercedez hospitaliza d 10-28 10:23:00 Ingrahm tion 10:50: [id number] 00 Safety risk for Safety Active Roseline hospitaliza 2-12 [place] tion 11:00: [id number] 00 Nutrition enteral Nutrition Unknown Mercedez therapy 3- Ingrahm 08:45: [id number] 00 Integument surgical Integument Active Mercedez wound 12-24 Ingrahm present 08:45: [id number] 00 Neuro depressive Neuro/Emot Active Mercedez feelings ion - Ingrahm present 08:45: [id number] 00 Neuro confusion Neuro/Emot Active Mercedez present ion 3- Ingrahm 08:45: [id number] 00 Neuro anxiety Neuro/Emot Active Mercedez present ion 12-24 Ingrahm 08:45: [id number] 00 Safety fall risk Safety Active Mercedez factor 12-24 Ingrahm present 08:45: [id number] 00 Medication potential Meds Resolve 2019-12-29 Mercedez clinically d 12-24 10:15:00 Ingrahm significant 08:45: [id number] medication 00 issue Allergies, Adverse Reactions, Alerts Allergy Allergy Status Severity Reaction(s) Onset Inactive Treating Comments Name Type Date Date Clinician latex Base Active Unknown Hives [facility] [id number] amoxicillin Base Active Unknown Anaphylaxis [facility] [id number] bee venom Base Active Unknown Anaphylaxis [facility] protein [facility]redient [facility] [id number] Botox Medication Active Unknown Anaphylaxis Mercedez Name ID 07-07 [facility] [id number] contrast Unknown Active Unknown Anaphylaxis [facility] dye [facility] [id number] Penicillins Allergen Active Unknown Anaphylaxis Mercedez Group 07-07 Ingrm [id number] shellfish Base Active Unknown Anaphylaxis Mercedez derived Ingredient 07-07 Ingrm [id number] adhesive Base Active Unknown Hives [facility] tape [facility]redient [facility] [id number] nsaids Unknown Active Unknown stomach issues Mercedez 07-07 Ingrm [id number] oxycodone Base Active Unknown swelling Mercedez Ingredient 07-07 [facility] [id number] Betadine Medication Active Unknown Rash [facility] [id number] Hibiclens Medication Active Unknown Rash Mercedez Name ID 07-07 Janettegurpreet [id number] evironmenta Unknown Active Unknown hay fever, Rea l/seasonal watery eye, 07-07 Guidelli itching, [id number] sneeze, congestion povidone-io Base Active Unknown itching Rea dine Ingredient 07-07 Guidelli [id number] Iodine and Allergen Active Unknown Anaphylaxis Rea Iodide Group 07-07 Guidelli Containing [id number] Products albumin Base Active Unknown Anaphylaxis Rea colloid, Ingredient 07-07 Guidelli human [id number] fentanyl Base Active Unknown hallucinations Rea Ingredient 07-07 Guidelli [id number] Medications Ordered Filled Start Stop Current Ordering [...] Unknown Lock Flush Lock Flush 2-04 Tashia FICNH (Porcine) (Porcine) e (PF) 100 (PF) 100 [...]
--- OUTSIDE RECORDS SUMMARY | 2020-01-19 08:23 | XMS REPORT | Continuity of Care Document ---
:1955 External Reference #:[id number] Author Name CRISTINA Olivarez (transmitted by agent of provider Caroline Mae) Address [address] [place] [address] Care Team Providers Name Role Phone Trish Combs MD - Family Care Team Information Manufacturing Engineering Technologist [phone] Medicine Problems Active Problems Provider Date Chest [...] M.D., [facility], Onset: 2015 [place] coronary artery with other FASNC forms of angina pectoris Essential hypertension Rock Domínguez M.D., [facility], Onset: 02/14/2016 FASNC Arthroplasty of knee Benny Celeste M.D. Onset: 03/29/2016 Abdominal pain Taylor Hutchison NP Onset: 04/16/2018 Chronic obstructive lung disease Tennille Sierra N.P. Onset: 04/17/2018 Hypokalemia Liss Chandler NP Onset: 06/16/2018 Nausea and vomiting Liss Chandler LABORATORY PHLEBOTOMIST Onset: 06/16/2018 Acute renal failure syndrome Taylor Hutchison NP Onset: 06/17/2018 Pulmonary hypertension Rock Domínguez M.D., [facility], Onset: 05/08/2019 [facility] Social History Type Date Description Comments [...] Rock Mcgee 02/14/2016 Ramon Domínguez, 100mg Tablets [facility] Atrovent HFA 2 puff by mouth up to Unknown 17mcg/Act every 6 hours as Aerosol needed for shortness of breath/wheezing Spironolactone 1 by mouth every day Unknown 25mg am Tablets Azelastine HCL 2 spray each nostril Unknown (Nasal) once a day 137mcg/[place] Solution Lorazepam 1-2 tabs q hs for [...] M.D. 12/16/2015 Injection Inj, Regadenoson, 0.1 MG Marline Henriquez, PA 12/16/2015 Injection Technetium TC 99M Eugene Talley M.D. 12/16/2015 Tetrofosmin, Per Unit Dose Up To 40 Millicuries Injection Technetium TC 99M CRISTINA Christianson 12/16/2015 Tetrofosmin, Per Unit Dose Up To 40 Millicuries Injection Inj, Regadenoson, 0.1 MG Rock Domínguez M.D., 08/02/2014 Injection FACC, FASNC Aminophylline Rock Domínguez M.D., 08/02/2014 Injection FACC, FASNC Technetium TC 99M oRck Domínguez M.D., 08/02/2014 Tetrofosmin, Per Unit Dose [...] Available Procedures Date Code Description Status 11/13/2019 47361 EKG Tracing & Interpretation Completed 10/26/2019 56406 ECHO Transthorasic Realtime 2D W Doppler & Color Flow Hosp Completed 10/26/2019 05273 EKG, Interpretation Only Completed 09/09/2019 77022 EKG, Interpretation Only Completed 09/08/2019 19453 ECHO Transthorasic Realtime 2D W Doppler & Color Flow Hosp Completed 09/08/2019 33434 EKG, Interpretation Only Completed Medical Devices Description No Information Available Encounters Type Date Location Provider Dx Diagnosis [facility] CRISTINA Hernandez urgency Hospitalists R07.9 Chest pain, unspecified [facility] R07[facility]9 Chest pain, 10:09a Assoc,pc [place], [place] unspecified Hospitalists G89.29 Other chronic pain E87.8 Oth disorders of electrolyte and fluid balance, NEC K22.0 Achalasia of cardia R11.2 Nausea with vomiting, unspecified I10 Essential (primary) hypertension Office Visit 12/21/2019 10:08a [facility] Aravind R07.9 Chest pain, Assoc,pc Armando, [place] unspecified Hospitalists G89.29 Other chronic pain E87.8 Oth disorders of electrolyte and fluid balance, NEC R79.89 Other specified abnormal findings of blood chemistry I10 Essential (primary) hypertension K22.0 Achalasia of cardia R11.2 Nausea with vomiting, unspecified Office Visit 12/20/2019 10:08a [facility] Aravind R07.9 Chest pain, Assoc,pc Armando, [place] unspecified Hospitalists G89.29 Other chronic pain E87.8 Oth disorders of electrolyte and fluid balance, NEC R79.89 Other specified abnormal findings of blood chemistry I10 Essential (primary) hypertension K22.0 Achalasia of cardia R11.2 Nausea with vomiting, unspecified Office Visit 12/19/2019 10:07a [facility] Tennille Sierra, R07.9 Chest pain , Assoc,pc N.P. unspecified Hospitalists I10 Essential (primary) hypertension Office Visit 11/13/2019 1:45p [facility] Rock Mcgee R07.9 Chest pain, Of Dwight Domínguez M.D., unspecified FACC, FASNC I25.10 Athscl heart disease of [place] coronary artery w/o ang pctrs R94.31 Abnormal electrocardiogram [ECG] [EKG] Office Visit 10/27/2019 9:15a [facility] Laura Darvin, G92 Toxic encephalopathy Assoc,pc LABORATORY PHLEBOTOMIST Hospitalists N39.0 Urinary tract infection, site not specified Office Visit 10/26/2019 9:14a [facility] Yumiko G92 Toxic encephalopathy Assoc,pc Leda Milan Hospitalists K22.0 Achalasia of cardia I25.10 Athscl heart disease of [place] coronary artery w/o ang pctrs I10 Essential (primary) hypertension G89.29 Other chronic pain K21.9 Gastro-esophageal reflux disease without esophagitis Z72.0 Tobacco use Office Visit 10/25/2019 9:14a [facility] Kimo G92 Toxic encephalopathy Assoc,rodriguez Castanon M.D. Hospitalists R44.3 Hallucinations, unspecified I16.0 Hypertensive urgency R09.02 Hypoxemia E43 Unspecified severe protein-calorie malnutrition Z93.1 Gastrostomy status Office Visit 09/10/2019 10:07a [facility] Rosibel K22.0 Achalasia of Assoc,pc JAIME Cisneros cardia Hospitalists R10.10 Upper abdominal pain, unspecified I16.0 Hypertensive urgency R07.9 Chest pain, unspecified Office Visit 09/08/2019 10:05a [facility] Tunde Burt, I16.0 Hypertensive Assoc,pc urgency Hospitalists [...] PA 12/21/2019 R07.9 Chest pain, unspecified Aravind Roberts PA 12/21/2019 G89.29 Other chronic pain Aravind [...] PA 12/20/2019 R07.9 Chest pain, unspecified Aravind Roberts PA 12/20/2019 G89.29 Other chronic pain CRISTINA Doty 12/20/2019 E87.8 Other disorders of electrolyte and CRISTINA Doty fluid balance, not elsewhere classified 12/20/2019 R79.89 Other specified abnormal findings of CRISTINA Doty blood chemistry 12/20/2019 I10 Essential (primary) hypertension Aravind Roberts PA 12/20/2019 K22.0 Achalasia of cardia Aravind Roberts PA 12/20/2019 R11.2 Nausea with vomiting, unspecified Aravind Roberts PA 12/19/2019 R07.9 Chest pain, unspecified Tennille Sierra, N.P. 12/19/2019 I10 Essential (primary) hypertension Tennille Sierra, N.P. 11/13/2019 R07.9 Chest pain, unspecified Rock Domínguez M.D., [facility], [facility] 11/13/2019 I25.10 Atherosclerotic heart disease of Rock Domínguez M.D., [facility], [place] coronary artery without angina FASNC pectoris 11/13/2019 R94.31 Abnormal electrocardiogram [ECG] [EKG] Rock Domínguez M.D., [facility], [facility] 10/27/2019 G92 Toxic encephalopathy Laura Darvin, LABORATORY PHLEBOTOMIST 10/27/2019 N39.0 Urinary tract infection, site not Laura Darvin, LABORATORY PHLEBOTOMIST specified 10/26/2019 R94.31 Abnormal electrocardiogram [ECG] [EKG] Qutaybeh S. Maghaydah, M.D. 10/26/2019 R94.31 Abnormal electrocardiogram [ECG] [EKG] Eugene Talley M.D. 10/26/2019 G92 Toxic encephalopathy Yumiko Milan D.O. 10/26/2019 K22.0 Achalasia of cardia Yumiko Milan D.O. 10/26/2019 I25.10 Atherosclerotic heart disease of Yumiko Milan D.O. [place] coronary artery without angina pectoris 10/26/2019 I10 Essential (primary) hypertension Yumiko Milan D.O. 10/26/2019 G89.29 Other chronic pain Dionicio Urias.OEusebio 10/26/2019 K21.9 Gastro-esophageal reflux disease Yumiko Milan D.O. without esophagitis 10/26/2019 Z72.0 Tobacco use Yumiko Milan D.OEusebio 10/25/2019 G92 Toxic encephalopathy Kimo Castanon M.D. 10/25/2019 R44.3 Hallucinations, unspecified Kimo Castanon M.D. 10/25/2019 I16.0 Hypertensive urgency Kimo Castanon M.D. 10/25/2019 R09.02 Hypoxemia Kimo Castanon M.D. 10/25/2019 E43 Unspecified severe protein-calorie Kimo Castanon M.D. malnutrition 10/25/2019 Z93.1 Gastrostomy status Kimo Castanon M.D. 09/10/2019 K22.0 Achalasia of cardia ZEN JavierC 09/10/2019 R10.10 Upper abdominal pain, unspecified Rosibel Aleida'ZEN blandC 09/10/2019 I16.0 Hypertensive urgency Rosibel ZEN CisnerosC 09/10/2019 R07.9 Chest pain, unspecified RosibelZEN McclureC 09/09/2019 R94.31 Abnormal electrocardiogram [ECG] [EKG] Neisha Garcia M.D. 09/09/2019 I16.0 Hypertensive urgency Rosibel Aleida'ZEN blandC 09/09/2019 R07.9 Chest pain, unspecified Rosibel JAIME Cisneros 09/09/2019 K22.0 Achalasia of cardia Rosibel JAIME Cisneros 09/08/2019 R94.31 Abnormal electrocardiogram [ECG] [EKG] Neisha Garcia M.D. 09/08/2019 I16.0 Hypertensive urgency Tunde Burt MD 09/08/2019 K22.0 Achalasia of cardia Tunde Burt MD 09/08/2019 R07.9 Chest pain, unspecified Eugene Talley M.D. 09/08/2019 R07.9 Chest pain, unspecified Tunde Burt MD 09/08/2019 R10.10 Upper abdominal pain, unspecified Tunde Burt MD Plan of Treatment Future Appointment(s):01/20/2020 10:45 am - Rock Domínguez M.D., FACC, FASMO at [facility]11/13/2019 - Rock Domínguez M.D., [facility], CDNKAJ58.9 Chest pain, unspecifiedNew Orders:Stress Test, Pharmacologic Nuclear (Lexiscan), Ordered: 11/13/19Comments:As discussed, we will recheck your stress test. Overall I feel your blood pressure is okay and if stays increased, could increase your Imdur further with your PCP (which may also help with your esophageal spasm). Your echo findings are stable. Please continue to stay hydrated.Follow up:after NLMI25.10 Atherosclerotic heart disease of [place] coronary artery without angina lhkiidzhK59.31 Abnormal electrocardiogram [ECG] [ EKG] Functional Status Description No Information Available Mental Status Description No Information Available Referrals Description No Information Available
--- OUTSIDE RECORDS SUMMARY | 2020-01-19 08:23 | XMS REPORT ---
:1955 Author Organization [facility] Care Team Providers Name Role Phone Unavailable Unavailable Unavailable Problems Condition Condition Condition Status Onset Resolution Last Treating Comments Name Details Category Date Date Treatment Clinician Date Achalasia Achalasia Diagnosis Active Mercedez of cardia of cardia 07-07 Ingrahm [id number] Athscl Athscl Diagnosis Active Mercedez heart heart 07-07 Ingrahm disease of disease of [id number] grand ronde tribes grand ronde tribes coronary coronary artery w/o artery w/o ang pctrs ang pctrs Encounter Encounter Diagnosis Active Mercedez for for 07-07 Ingrahm attention attention [id number] to to gastrostomy gastrostomy Gastro-esop Gastro-esop Diagnosis Active Mercedez hageal hageal 07-07 Ingrahm reflux reflux [id number] disease disease without without esophagitis esophagitis Other Other Diagnosis Active Mercedez specified specified 07-07 Ingrahm arthritis, arthritis, [id number] unspecified unspecified site site Essential Essential Diagnosis Active Mercedez (primary) (primary) 07-07 Ingrahm hypertensio hypertensio [id number] n n group home group home Diagnosis Active Mercedez (current) (current) Ingrahm use of use of [id number] anticoagula anticoagula nts nts Nicotine Nicotine Diagnosis Active Mercedez dependence, dependence, Ingrahm cigarettes, cigarettes, [id number] uncomplicat uncomplicat ed ed Personal Personal Diagnosis Active Mercedez history of history of Ingrahm malignant malignant [id number] neoplasm of neoplasm of breast breast Prsnl hx of Prsnl hx of Diagnosis Active Mercedez TIA (TIA), TIA (TIA), Ingrahm and cereb and cereb [id number] infrc w/o infrc w/o resid resid deficits deficits Pain frequent Pain Mgmt Resolve 2018-11-26 Ana pain d 9 16:15:00 [place] 13:30: [id number] 00 Pain severe pain Pain Mgmt Resolve 2018-11-26 Ana d 9 16:15:00 [place] 13:30: [id number] 00 Endo/Han anti-coagul Endo/Han Resolve 2019-02-06 Ana ation d 07-07 11:15:00 [place] therapy 13:30: [id number] 00 Integument surgical Integument Resolve 2018-08-05 Rea wound d 07-07 13:35:00 [place] present 13:30: [id number] 00 Nutrition nutritional Nutrition Resolve 2019-01-02 Ana restriction d 07-07 10:00:00 [place] s 13:30: [id number] 00 Nutrition changing Nutrition Resolve 2019-01-02 Ana weight/appe d 07-07 10:00:00 [place] tite 13:30: [id number] 00 Nutrition nutritional Nutrition Resolve 2019-01-02 Ana risk d 07-07 10:00:00 [place] 13:30: [id number] 00 Nutrition enteral Nutrition Resolve 2019-02-06 Ana therapy d 07-07 11:15:00 [place] 13:30: [id number] 00 Safety structural Safety Resolve 2019-02-06 Ana barriers d 07-07 11:15:00 [place] present 13:30: [id number] 00 Safety fall risk Safety Resolve 2019-02-06 Ana factor d 07-07 11:15:00 [place] present 13:30: [id number] 00 Safety risk for Safety Resolve 2019-02-06 Ana hospitaliza d 07-07 11:15:00 [place] tion 13:30: [id number] 00 Medication potential Meds Resolve 2019-02-06 Ana clinically d 07-07 11:15:00 [place] significant 13:30: [id number] medication 00 issue Musculoskel requires Musculoske Resolve 2019-02-06 Ana etal human letal d 07-07 11:15:00 [place] assist to 13:30: [id number] leave home 00 IV IV present IV Resolve 2019-02-06 Rea d 9-30 11:15:00 Lissette [id number] Respiratory dyspnea Respirator Resolve 2017-102019-02-06 Mercedez present y d 0-16 11:15:00 [place] 13:35: [id number] 00 Neuro confusion Neuro/Emot Unknown 2017-10 Mercedez present ion 0-16 Ingra[place] 13:35: [id number] 00 Neuro depressive Neuro/Emot Unknown 2017-10 Mercedez feelings ion 0-16 Ingra[place] present 13:35: [id number] 00 Safety can be left Safety Resolve 2017-102019-02-06 Mercedez alone for d 0-18 11:15:00 Ingrahm only short 08:10: [id number] periods 00 Integument surgical Integument Resolve 2017-102018-10-30 Shila wound d 1-15 10:10:00 Brian present 08:55: [id number] 00 Elimination GI drain or Eliminatio Resolve 2017-102019-02-06 Shila tube n d 1-15 11:15:00 Brian present 08:55: [id number] 00 Neuro anxiety Neuro/Emot Resolve 2017-102019-02-06 Shila present ion d 1-15 11:15:00 Brian 08:55: [id number] 00 Medication injectable Meds Resolve 2017-102019-02-06 Shila med d 1-15 11:15:00 Brian assistance 08:55: [id number] required 00 Safety fire risk Safety Resolve 2017-102019-02-06 Shila present d 1-15 11:15:00 Brian 13:00: [id number] 00 Elimination urinary Eliminatio Resolve 2019-02-06 Mercedez incontinenc n d - 11:15:00 Ingrahm e 14:20: [id number] 00 Pain frequent Pain Mgmt Resolve 2019-02-06 Mercedez pain d 2-15 11:15:00 Ingra[place] 10:15: [id number] 00 Safety risk for Safety Unknown Leanna hospitaliza 02-06 Rege[place] tion 15:45: [id number] 00 Respiratory lung sounds Respirator Resolve 2019-04-03 Leanna deficit y d 02-10 10:01:00 Regeczi 13:20: [id number] 00 Respiratory smoker Respirator Resolve 2019-04-03 Leanna y d 4-29 10:01:00 Regeczi 12:10: [id number] 00 Respiratory dyspnea Respirator Resolve 2019-06-05 Mercedez present y d 5-15 10:30:00 Ingrahm 09:00: [id number] 00 Integument surgical Integument Resolve 2019-03-27 Mercedez wound d 5-15 09:15:00 Ingrahm present 09:00: [id number] 00 Nutrition enteral Nutrition Resolve 2019-03-27 Mercedez therapy d -15 09:15:00 Ingra[place] 09:00: [id number] 00 Elimination urinary Eliminatio Resolve 2019-04-10 Mercedez incontinenc n d 15 09:30:00 Ingrahm e 09:00: [id number] 00 Neuro confusion Neuro/Emot Resolve 2019-11-25 Mercedez present ion d 15 11:10:00 Ingra[place] 09:00: [id number] 00 Neuro anxiety Neuro/Emot Resolve 2019-11-25 Mercedez present ion d 515 11:10:00 In[place] 09:00: [id number] 00 Neuro depressive Neuro/Emot Resolve 2019-11-25 Mercedez feelings ion d 15 11:10:00 Ingra[place] present 09:00: [id number] 00 Neuro impaired Neuro/Emot Resolve 2019-11-25 Mercedez decision-ma ion d 15 11:10:00 [facility] sonali 09:00: [id number] 00 Activity self-care Activity Resolve 2019-05-20 Mercedez deficit d -15 11:15:00 [place] 09:00: [id number] 00 Safety fall risk Safety Resolve 2019-07-17 Mercedez factor d 5-15 10:35:00 Ingrahm present 09:00: [id number] 00 Safety risk for Safety Resolve 2019-07-17 Mercedez hospitaliza d 5-15 10:35:00 Ingrahm tion 09:00: [id number] 00 Medication potential Meds Resolve 2019-03-27 Mercedez clinically d 5-15 09:15:00 Ingrahm significant 09:00: [id number] medication 00 issue Integument surgical Integument Resolve 2019-05-20 Mercedez wound d 7-12 11:15:00 Ingrahm present 10:00: [id number] 00 Nutrition enteral Nutrition Resolve 2019-06-26 Mercedez therapy d 7-12 10:35:00 Ingra[place] 10:00: [id number] 00 Respiratory dyspnea Respirator Resolve 2019-08-07 Leanna present y d 06-26 10:25:00 Regeczi 10:35: [id number] 00 Respiratory smoker Respirator Resolve 2019-07-01 Leanna y d 06-26 10:15:00 Regeczi 10:35: [id number] 00 Endo/Han anti-coagul Endo/Han Resolve 2019-07-23 Leanna ation d 06-26 10:15:00 Regeczi therapy 10:35: [id number] 00 Elimination urinary Eliminatio Resolve 2019-07-23 Leanna incontinenc n d 06-26 10:15:00 Regeczi e 10:35: [id number] 00 Elimination nausea/vomi Eliminatio Resolve 2019-07-01 Leanna serranog n d 06-26 10:15:00 Regeczi 10:35: [id number] 00 Integument surgical Integument Resolve 2019-07-23 Mercedez wound d 9-11 10:15:00 Ingrahm present 10:15: [id number] 00 Nutrition enteral Nutrition Resolve 2019-07-23 Mercedez therapy d 07-01 10:15:00 Ingra[place] 10:15: [id number] 00 Respiratory smoker Respirator Resolve 2019-07-16 Leanna y d 07-16 10:05:00 Regeczi 10:05: [id number] 00 Elimination diarrhea Eliminatio Resolve 2019-07-23 Leanna n d 07-17 10:15:00 Regeczi 10:35: [id number] 00 Cardio hypertensio Cardiovasc Resolve 2018-102019-07-30 Leanna olivares 0 10:00:00 Regec[place] 10:15: [id number] 00 Safety risk for Safety Resolve 2018-102019-07-23 Leanna hospitaliza d 0-03 10:15:00 Regeczi tion 10:15: [id number] 00 24 Hr Diet knowledge/s NT: 24Hr Resolve 2018-102019-07-23 Wen kill Diet d 0-03 15:00:00 Garrett deficit - 15:00: [id number] pt 00 Nutritional eating NT: Resolve 2018-102019-07-23 Wen Barrier difficultie Barriers d 0-03 15:00:00 Garrett s present 15:00: [id number] Safety risk for Safety Resolve 2018-102019-08-07 Roseline hospitaliza d 0-04 10:25:00 [place] tion 14:00: [id number] 00 Social financial MURIEL: Active 2018-10 Ros[facility] Services resource Social 0-04 [place] deficit Services 14:00: [id number] 00 Social support MURIEL: Active 2018-10 [facility] deficit Social 0-04 [place] Services 14:00: [id number] 00 Social knowledge/s MURIEL: Active 2018-10 [facility] kill Social 0-04 [place] deficit - Services 14:00: [id number] pt 00 Social financial MURIEL: Unknown 2018-10 [facility] Services resource Social 0-10 Ingrahm deficit Services 15:00: [id number] 00 Social knowledge/s MURIEL: Unknown 2018-10 Mer[facility] Services kill Social 0-10 Ingrahm deficit - Services 15:00: [id number] pt 00 Respiratory lung sounds Respirator Resolve 2018-102019-08-07 Leanna deficit y d 0-18 10:25:00 Regeczi 10:25: [id number] 00 Respiratory dyspnea Respirator Resolve 2018-102019-10-23 Mercedez present y d 10-28 10:15:00 In[place] 11:00: [id number] 00 Integument surgical Integument Resolve 2018-102019-09-11 Mercedez wound d 10-28 09:50:00 Ingrahm present 11:00: [id number] 00 Nutrition enteral Nutrition Resolve 2018-102019-09-11 Mercedez therapy d 10-28 09:50:00 In[place] 11:00: [id number] 00 Elimination urinary Eliminatio Resolve 2018-102019-09-11 Mercedez incontinenc n d 10-28 09:50:00 Ingrahm e 11:00: [id number] 00 Safety fall risk Safety Resolve 2018-102019-09-11 Mercedez factor d 10-28 09:50:00 Ingrahm present 11:00: [id number] 00 Safety risk for Safety Resolve 2018-102019-09-23 Mercedez hospitaliza d 10-28 11:10:00 Ingrahm tion 11:00: [id number] 00 Safety risk for Safety Unknown 2018-10 Mercedez hospitaliza 11-24 Ingrahm tion 15:00: [id number] 00 Cardio hypertensio Cardiovasc Resolve 2019-11-25 Leanna n ular d 10-23 11:10:00 Regeczi 10:15: [id number] 00 Elimination urinary Eliminatio Resolve 2019-11-05 Leanna incontinenc n d 10-23 10:23:00 Regeczi e 10:15: [id number] 00 Elimination constipatio Eliminatio Resolve 2019-11-05 Leanna n n d 10-23 10:23:00 Regeczi 10:15: [id number] 00 Integument surgical Integument Resolve 2019-11-19 Mercedez wound d 10-28 10:50:00 Ingrahm present 10:50: [id number] 00 Nutrition enteral Nutrition Resolve 2019-11-25 Mercedez therapy d 10-28 11:10:00 Ingra[place] 10:50: [id number] 00 Elimination UTI within Eliminatio Resolve 2019-11-05 Mercedez past 14 n d 10-28 10:23:00 Ingrahm days 10:50: [id number] 00 Activity self-care Activity Resolve 2019-11-05 Mercedez deficit d 10-28 10:23:00 Ingrahm 10:50: [id number] 00 Safety fall risk Safety Resolve 2019-11-05 Mercedez factor d 10-28 10:23:00 Ingrahm present 10:50: [id number] 00 Safety risk for Safety Resolve 2019-11-05 Mercedez hospitaliza d 10-28 10:23:00 Ingrahm tion 10:50: [id number] 00 Safety risk for Safety Active Roselien hospitaliza 2-12 [place] tion 11:00: [id number] 00 Nutrition enteral Nutrition Unknown Mercedez therapy 3- Ingrahm 08:45: [id number] 00 Integument surgical Integument Active Mercedez wound 12-24 Ingrahm present 08:45: [id number] 00 Neuro depressive Neuro/Emot Active Mercedez feelings ion - Ingrahm present 08:45: [id number] 00 Neuro confusion Neuro/Emot Active Mercedez present ion 3- Ingrahm 08:45: [id number] 00 Neuro anxiety Neuro/Emot Active Mercedez present ion 12-24 Ingrahm 08:45: [id number] 00 Safety fall risk Safety Active Mercedez factor 12-24 Ingrahm present 08:45: [id number] 00 Medication potential Meds Resolve 2019-12-29 Mercedez clinically d 12-24 10:15:00 Ingrahm significant 08:45: [id number] medication 00 issue Allergies, Adverse Reactions, Alerts Allergy Allergy Status Severity Reaction(s) Onset Inactive Treating Comments Name Type Date Date Clinician latex Base Active Unknown Hives [facility] [id number] amoxicillin Base Active Unknown Anaphylaxis [facility]redient [facility] [id number] bee venom Base Active Unknown Anaphylaxis [facility] protein Ingredient 07-[facility] [id number] Botox Medication Active Unknown Anaphylaxis Mer[facility]ez Name ID 07-07 [facility] [id number] contrast Unknown Active Unknown Anaphylaxis [facility] dye [facility] [id number] Penicillins Allergen Active Unknown Anaphylaxis Mer[facility]ez Group 07-07 Ingrm [id number] shellfish Base Active Unknown Anaphylaxis Mer[facility]ez derived Ingredient 07-07 Ingrm [id number] adhesive Base Active Unknown Hives [facility] tape [facility]ient [facility] [id number] nsaids Unknown Active Unknown stomach issues Mercedez 07-07 Ingrm [id number] oxycodone Base Active Unknown swelling Mer[facility]ez Ingredient 07-07 [facility] [id number] Betadine Medication Active Unknown Rash [facility] [id number] Hibiclens Medication Active Unknown Rash Mercedez Name ID 07-07 Janettegurpreet [id number] evironmenta Unknown Active Unknown hay fever, Rea l/seasonal watery eye, 07-07 Guidelli itching, [id number] sneeze, congestion povidone-io Base Active Unknown itching Rea dine Ingredient 07-07 Guidelli [id number] Iodine and Allergen Active Unknown Anaphylaxis Rea Iodide Group 07-07 Guidelli Containing [id number] Products albumin Base Active Unknown Anaphylaxis Rea colloid, Ingredient 07-07 Guidelli human [id number] fentanyl Base Active Unknown hallucinations Rea Ingredient 07-07 Guidelli [id number] Medications Ordered Filled Start Stop Current Ordering [...]
--- OUTSIDE RECORDS SUMMARY | 2020-01-19 08:23 | XMS REPORT | Continuity of Care Document ---
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 Onset: 04/05/2015 Derangement of knee Benny Celeste M.D. Onset: 04/05/2015 Coronary arteriosclerosis Rock Domínguez M.D., [facility], Onset: 05/09/2015 FASNC Achalasia of esophagus Benny Celeste M.D. Onset: 11/24/2015 Localized, primary osteoarthritis Benny Celeste M.D. Onset: 11/24/2015 Atherosclerotic heart disease of Rock Domínguez M.D., [facility], Onset: 2015 douglas coronary artery with other FASNC forms of angina pectoris Essential hypertension Rock Domínguez M.D., [facility], Onset: 02/14/2016 FASNC Arthroplasty of knee Benny Celeste M.D. Onset: 03/29/2016 Abdominal pain Taylor Hutchison NP Onset: 04/16/2018 Chronic obstructive lung disease Tennille Sierra N.P. Onset: 04/17/2018 Hypokalemia Liss Chandler NP Onset: 06/16/2018 Nausea and vomiting Liss Chandler [employer] Onset: 06/16/2018 Acute renal failure syndrome Taylor Hutchison NP Onset: 06/17/2018 Pulmonary hypertension Rock Domínguez M.D., [facility], Onset: 05/08/2019 [facility] Social History Type Date Description Comments Sex [...] Rock Mcgee 02/14/2016 Ramon Domínguez, 100mg Tablets [facility] Atrovent HFA 2 puff by mouth up to Unknown 17mcg/Act every 6 hours as Aerosol needed for shortness of breath/wheezing Spironolactone 1 by mouth every day Unknown 25mg am Tablets Azelastine HCL 2 spray each nostril Unknown (Nasal) once a day 137mcg/[place] Solution Lorazepam 1-2 tabs q hs for [...] Available Procedures Date Code Description Status 11/13/2019 95739 EKG Tracing & Interpretation Completed 10/26/2019 34214 ECHO Transthorasic Realtime 2D W Doppler & Color Flow Hosp Completed 10/26/2019 66801 EKG, Interpretation Only Completed 09/09/2019 66178 EKG, Interpretation Only Completed 09/08/2019 56626 ECHO Transthorasic Realtime 2D W Doppler & Color Flow Hosp Completed 09/08/2019 26630 EKG, Interpretation Only Completed Medical Devices Description No Information Available Encounters Type Date Location Provider Dx Diagnosis Office Visit 12/22/2019 [facility] Divina R07.9 Chest pain, 10:09a Assoc,pc CRISTINA Hernandez unspecified Hospitalists G89.29 Other chronic pain E87.8 Oth disorders of electrolyte and fluid balance, NEC K22.0 Achalasia of cardia R11.2 Nausea with vomiting, unspecified I10 Essential (primary) hypertension Office Visit 11/13/2019 1:45p [facility] Rock Everardo R07.9 Chest pain, Of Dwight Domínguez M.D., unspecified FACC, FASNC I25.10 Athscl heart disease of douglas coronary artery w/o ang pctrs R94.31 Abnormal electrocardiogram [ECG] [EKG] Office Visit 10/27/2019 9:15a [facility] Laura Darvin, G92 Toxic encephalopathy Assoc,pc [employer] Hospitalists N39.0 Urinary tract infection, site not specified Office Visit 10/26/2019 9:14a [facility] Yumiko G92 Toxic encephalopathy Assoc,rodriguez Milan D.O. Hospitalists K22.0 Achalasia of cardia I25.10 Athscl heart disease of douglas coronary artery w/o ang pctrs I10 Essential (primary) hypertension G89.29 Other chronic pain K21.9 Gastro-esophageal reflux disease without esophagitis Z72.0 Tobacco use Office Visit 10/25/2019 9:14a [facility] Kimo G92 Toxic encephalopathy Assoc,rodriguez Castanon M.D. Hospitalists R44.3 Hallucinations, unspecified I16.0 Hypertensive urgency R09.02 Hypoxemia E43 Unspecified severe protein-calorie malnutrition Z93.1 Gastrostomy status Office Visit 09/10/2019 10:07a [facility] Rosibel K22.0 Achalasia of Assoc,pc Blayne, PA-C cardia Hospitalists R10.10 Upper abdominal pain, unspecified I16.0 Hypertensive urgency R07.9 Chest pain, unspecified Office Visit 09/08/2019 10:05a [facility] Tunde Burt, I16.0 Hypertensive Assoc,pc urgency Hospitalists K22.0 Achalasia of cardia R07.9 Chest pain, unspecified R10.10 Upper abdominal pain, unspecified Assessments Date Code Description Provider 12/22/2019 R07.9 Chest pain, unspecified Divina Hernandez, PA 12/22/2019 G89.29 Other chronic pain Divina Hernandez, PA 12/22/2019 E87.8 Other disorders of electrolyte and Divinavitaliy Hernandez PA fluid balance, not elsewhere classified 12/22/2019 K22.0 Achalasia of cardia Divina Hernandez, PA 12/22/2019 R11.2 Nausea with vomiting, unspecified Divinavitaliy Hernandez, PA 12/22/2019 I10 Essential (primary) hypertension Divina Hernandez, PA 12/21/2019 R07.9 Chest pain, unspecified Aravind Roberts, PA 12/21/2019 G89.29 Other chronic pain Aravind Roberts, PA 12/21/2019 E87.8 Other disorders of electrolyte and Aravind Armando, PA fluid balance, not elsewhere classified 12/21/2019 R79.89 Other specified abnormal findings of Aravind Roberts PA blood chemistry 12/21/2019 I10 Essential (primary) hypertension Aravind Roberts, PA 12/21/2019 K22.0 Achalasia of cardia Aravind Roberts, PA 12/21/2019 R11.2 Nausea with vomiting, unspecified Aravind Roberts, PA 12/20/2019 R07.9 Chest pain, unspecified Aravind Armando, PA 12/20/2019 G89.29 Other chronic pain Aravind Roberts, PA 12/20/2019 E87.8 Other disorders of electrolyte and Aravind Armando, PA fluid balance, not elsewhere classified 12/20/2019 R79.89 Other specified abnormal findings of Aravind Roberts PA blood chemistry 12/20/2019 I10 Essential (primary) hypertension Aravind Roberts, PA 12/20/2019 K22.0 Achalasia of cardia Aravind Roberts, PA 12/20/2019 R11.2 Nausea with vomiting, unspecified Aravind Roberts, PA 12/19/2019 R07.9 Chest pain, unspecified Tennille Sierra, N.P. 12/19/2019 I10 Essential (primary) hypertension Tennille Sierra, N.P. 11/13/2019 R07.9 Chest pain, unspecified Rock Domínguez M.D., [facility], [facility] 11/13/2019 I25.10 Atherosclerotic heart disease of Rock Domínguez M.D., [facility], douglas coronary artery without angina FASNC pectoris 11/13/2019 R94.31 Abnormal electrocardiogram [ECG] [EKG] Rock Domínguez M.D., [facility], [facility] 10/27/2019 G92 Toxic encephalopathy Laura Darvin, [employer] 10/27/2019 N39.0 Urinary tract infection, site not Laura Darvin, [employer] specified 10/26/2019 R94.31 Abnormal electrocardiogram [ECG] [EKG] Neisha Garcia M.D. 10/26/2019 R94.31 Abnormal electrocardiogram [ECG] [EKG] Eugene Talley M.D. 10/26/2019 G92 Toxic encephalopathy Yumiko Bjorn, D.O. 10/26/2019 K22.0 Achalasia of cardia Yumiko Milan D.O. 10/26/2019 I25.10 Atherosclerotic heart disease of Yumiko Milan D.O. douglas coronary artery without angina pectoris 10/26/2019 I10 [...] 10:45 am - Rock Domínguez M.D., FACNhan, FASNC at [facility]11/13/2019 - Rock [facility] M.D., [facility], VTUCUW07.9 Chest pain, unspecifiedNew Orders:Stress Test, Pharmacologic Nuclear (Lexiscan), Ordered: 11/13/19Comments:As discussed, we will recheck your stress test. Overall I feel your blood pressure is okay and if stays increased, could increase your Imdur further with your PCP (which may also help with your esophageal spasm). Your echo findings are stable. Please continue to stay hydrated.Follow up:after NLMI25.10 Atherosclerotic heart disease of douglas coronary artery without angina mmijfqetM99.31 Abnormal electrocardiogram [ECG] [ EKG] Functional Status Description No Information Available Mental Status Description No Information Available Referrals Description No Information Available
--- OUTSIDE RECORDS SUMMARY | 2020-01-19 08:23 | XMS REPORT | Continuity of Care Document ---
:1955 External Reference #:[id number] Author Name CRISTINA Doty (transmitted by agent of provider Caroline Mae) Address [address] [place] [address] Care Team Providers Name Role Phone Trish Combs MD - Family Care Team Information Technical Services Specialist [phone] Medicine Problems Active Problems Provider Date Chest pain Rock Domínguez M.D., [facility], Onset: 12/02/2013 FASNC Syncope and collapse Rock Domínguez M.D., [facility], Onset: 09/03/2014 FASNC Arthralgia of the lower leg Benny Celeste M.D. Onset: 04/05/2015 Derangement of knee Benny Celeste M.D. Onset: 04/05/2015 Coronary arteriosclerosis Rock Domínguez M.D., [facility], Onset: 05/09/2015 FASNC Achalasia of esophagus Benny Celeste M.D. Onset: 11/24/2015 Localized, primary osteoarthritis Benny Celeste M.D. Onset: 11/24/2015 Atherosclerotic heart disease of Rock Domínguez M.D., [facility], Onset: 2015 [place] coronary artery with other FASNC forms of angina pectoris Essential hypertension Rock Domínguez M.D., [facility], Onset: 02/14/2016 FASNC Arthroplasty of knee Benny Celeste M.D. Onset: 03/29/2016 Abdominal pain Taylor Hutchison NP Onset: 04/16/2018 Chronic obstructive lung disease Tennille Sierra N.P. Onset: 04/17/2018 Hypokalemia Liss Chandler NP Onset: 06/16/2018 Nausea and vomiting Liss Chandler NP Onset: 06/16/2018 Acute renal failure syndrome Taylor Hutchison NP Onset: 06/17/2018 Pulmonary hypertension Rock Domínguez M.D., [facility], Onset: 05/08/2019 [facility] Social History Type Date Description Comments Sex [...] Rock Mcgee 02/14/2016 Ramon Domínguez, 100mg Tablets [facility], [facility] Atrovent HFA 2 puff by mouth up to Unknown 17mcg/Act every 6 hours as Aerosol needed for shortness of breath/wheezing Spironolactone 1 by mouth every day Unknown 25mg am Tablets Azelastine HCL 2 spray each nostril Unknown (Nasal) once a day 137mcg/[place] Solution Lorazepam 1-2 tabs q hs for [...] Available Procedures Date Code Description Status 11/13/2019 32370 EKG Tracing & Interpretation Completed 10/26/2019 30367 ECHO Transthorasic Realtime 2D W Doppler & Color Flow Hosp Completed 10/26/2019 59691 EKG, Interpretation Only Completed 09/09/2019 43596 EKG, Interpretation Only Completed 09/08/2019 62273 ECHO Transthorasic Realtime 2D W Doppler & Color Flow Hosp Completed 09/08/2019 07058 EKG, Interpretation Only Completed Medical Devices Description No Information Available Encounters Type Date Location Provider Dx Diagnosis Office Visit 12/23/2019 [facility] I16.0 Hypertensive 10:10a Assoc,pc CRISTINA Hernandez urgency Hospitalists R07.9 Chest pain, unspecified [facility] Chest pain, 10:09a Assoc,pc [place], [place] unspecified Hospitalists G89.29 Other chronic pain E87.8 Oth disorders of electrolyte and fluid balance, NEC K22.0 Achalasia of cardia R11.2 Nausea with vomiting, unspecified I10 Essential (primary) hypertension Office Visit 12/21/2019 10:08a [facility] Aravind R07.9 Chest pain, Assoc,pc Armando, [place] unspecified Hospitalists G89.29 Other chronic pain E87.8 Oth disorders of electrolyte and fluid balance, NEC R79.89 Other specified abnormal findings of blood chemistry I10 Essential (primary) hypertension K22.0 Achalasia of cardia R11.2 Nausea with vomiting, unspecified Office Visit 12/20/2019 10:08a [facility] Aravind R07.9 Chest pain, Assoc,pc [place]ando, [place] unspecified Hospitalists G89.29 Other chronic pain E87.8 Oth disorders of electrolyte and fluid balance, NEC R79.89 Other specified abnormal findings of blood chemistry I10 Essential (primary) hypertension K22.0 Achalasia of cardia R11.2 Nausea with vomiting, unspecified Office Visit 12/19/2019 10:07a [facility] Tennille Sierra R07.9 Chest pain , Assoc,pc N.P. unspecified Hospitalists I10 Essential (primary) hypertension Office Visit 11/13/2019 1:45p [facility] Rockpatricia Mcgee R07.9 Chest pain, Of Dwight Domínguez M.D., unspecified FACC, FASNC I25.10 Athscl heart disease of [place] coronary artery w/o ang pctrs R94.31 Abnormal electrocardiogram [ECG] [EKG] Office Visit 10/27/2019 9:15a [facility] Laura Darvin, G92 Toxic encephalopathy Assoc,pc [employer] Hospitalists N39.0 Urinary tract infection, site not specified Office Visit 10/26/2019 9:14a [facility] Yumiko G92 Toxic encephalopathy Assoc,pc Leda Milan Hospitalists K22.0 Achalasia of cardia I25.10 Athscl heart disease of [place] coronary artery w/o ang pctrs I10 Essential (primary) hypertension G89.29 Other chronic pain K21.9 Gastro-esophageal reflux disease without esophagitis Z72.0 Tobacco use Office Visit 10/25/2019 9:14a [facility] Kimo G92 Toxic encephalopathy Assoc,rodriguez Castanon M.D. Hospitalists R44.3 Hallucinations, unspecified I16.0 Hypertensive urgency R09.02 Hypoxemia E43 Unspecified severe protein-calorie malnutrition Z93.1 Gastrostomy status Office Visit 09/10/2019 10:07a [facility] Rosibel K22.0 Achalasia of Assoc,pc JAIME Cisneros cardia Hospitalists R10.10 Upper abdominal pain, unspecified I16.0 Hypertensive urgency R07.9 Chest pain, unspecified Office Visit 09/08/2019 10:05a [facility] Tunde Burt, I16.0 Hypertensive Assoc,pc [...] 12/20/2019 R79.89 Other specified abnormal findings of CRITSINA Doty blood chemistry 12/20/2019 I10 Essential (primary) hypertension Aravind Roberts PA 12/20/2019 K22.0 Achalasia of cardia Aravind Roberts PA 12/20/2019 R11.2 Nausea with vomiting, unspecified Aravind Roberts, [place] 12/19/2019 R07.9 Chest pain, unspecified Tennille Sierra, N.P. 12/19/2019 I10 Essential (primary) hypertension Tennille Sierra, N.P. 11/13/2019 R07.9 Chest pain, unspecified Rock Domínguez M.D., [facility], [facility] 11/13/2019 I25.10 Atherosclerotic heart disease of Rock Domínguez M.D., [facility], [place] coronary artery without angina FASPR pectoris 11/13/2019 R94.31 Abnormal electrocardiogram [ECG] [EKG] Rock Domínguez M.D., [facility], [facility] 10/27/2019 G92 Toxic encephalopathy Laura Darvin, [employer] 10/27/2019 N39.0 Urinary tract infection, site not Laura Darvin, [employer] specified 10/26/2019 R94.31 Abnormal electrocardiogram [ECG] [EKG] Neisha Garcia M.D. 10/26/2019 R94.31 Abnormal electrocardiogram [ECG] [EKG] Eugene Talley M.D. 10/26/2019 G92 Toxic encephalopathy Yumiko Milan D.O. 10/26/2019 K22.0 Achalasia of cardia Yumiko Milan D.O. 10/26/2019 I25.10 Atherosclerotic heart disease of Yumiko Milan D.O. [place] coronary artery without angina pectoris 10/26/2019 I10 [...] Rosibel O'edwina, ZENC 09/10/2019 I16.0 Hypertensive urgency Rosibel O'edwinaCRISTINA-C 09/10/2019 R07.9 Chest pain, unspecified Orsibel Aleida'edwinaZENC 09/09/2019 R94.31 Abnormal electrocardiogram [ECG] [EKG] Neisha Garcia M.D. 09/09/2019 I16.0 Hypertensive urgency Rosibel O'edwinaCRISTINA-C 09/09/2019 R07.9 Chest pain, unspecified Rosibel O'edwina, PAStanislavC 09/09/2019 K22.0 Achalasia of cardia Rosibel Cisneros PA-C 09/08/2019 R94.31 Abnormal electrocardiogram [ECG] [EKG] Neisha Garcia M.D. 09/08/2019 I16.0 Hypertensive urgency Tunde Burt MD 09/08/2019 K22.0 Achalasia of cardia uTnde Burt MD 09/08/2019 R07.9 Chest pain, unspecified Eugene Talley M.D. 09/08/2019 R07.9 Chest pain, unspecified Tunde Burt MD 09/08/2019 R10.10 Upper abdominal pain, unspecified Tunde Burt MD Plan of Treatment Future Appointment(s):01/20/2020 10:45 am - Rock Domínguez M.D., FACNhan, FASPR at [facility]11/13/2019 - Rock Domínguez M.D., [facility], XXHBWA16.9 Chest pain, unspecifiedNew Orders:Stress Test, Pharmacologic Nuclear (Lexiscan), Ordered: 11/13/19Comments:As discussed, we will recheck your stress test. Overall I feel your blood pressure is okay and if stays increased, could increase your Imdur further with your PCP (which may also help with your esophageal spasm). Your echo findings are stable. Please continue to stay hydrated.Follow up:after NLMI25.10 Atherosclerotic heart disease of [place] coronary artery without angina vsvrzukbZ07.31 Abnormal electrocardiogram [ECG] [ EKG] Functional Status Description No Information Available Mental Status Description No Information Available Referrals Description No Information Available
--- OUTSIDE RECORDS SUMMARY | 2020-01-19 08:23 | XMS REPORT | Continuity of Care Document ---
:1955 External Reference #:[id number] Author Name Tennille Sierra N.P. (transmitted by agent of provider Caroline Mae) Address [address] , [place] [address] Care Team Providers Name Role Phone Trish Combs MD - Family Care Team Information Conduit Cleaner [phone] Medicine Problems Active Problems Provider Date Chest pain Rock Domínguez M.D., [facility], Onset: 12/02/2013 FASNC Syncope and collapse Rock Domínguez M.D., [facility], Onset: 09/03/2014 FASNC Arthralgia of the lower leg Benny Celeste M.D. Onset: 04/05/2015 Derangement of knee Benny Celeste M.D. Onset: 04/05/2015 Coronary arteriosclerosis Rock Domínguez M.D., [facility], Onset: 05/09/2015 FASNC Achalasia of esophagus Benny Celeste M.D. Onset: 11/24/2015 Localized, primary osteoarthritis Benny Celeste M.D. Onset: 11/24/2015 Atherosclerotic heart disease of Rock Domínguez M.D., [facility], Onset: 2015 [place] coronary artery with other FASNC forms of angina pectoris Essential hypertension Rock Domínguez M.D., [facility], Onset: 02/14/2016 FASNC Arthroplasty of knee Benny Celeste M.D. Onset: 03/29/2016 Abdominal pain Taylor Hutchison NP Onset: 04/16/2018 Chronic obstructive lung disease Tennille Sierra N.P. Onset: 04/17/2018 Hypokalemia Liss Chandler NP Onset: 06/16/2018 Nausea and vomiting Liss Chandler NP Onset: 06/16/2018 Acute renal failure syndrome Taylor Hutchison NP Onset: 06/17/2018 Pulmonary hypertension Rock Domínguez M.D., [facility], Onset: 05/08/2019 [facility] Social History Type Date Description Comments [...] Rock Mcgee 02/14/2016 Ramon Domínguez, 100mg Tablets [facility] Atrovent HFA 2 puff by mouth up to Unknown 17mcg/Act every 6 hours as Aerosol needed for shortness of breath/wheezing Spironolactone 1 by mouth every day Unknown 25mg am Tablets Azelastine HCL 2 spray each nostril Unknown (Nasal) once a day 137mcg/[place] Solution Lorazepam 1-2 tabs q hs for [...] Ordering Provider Date Inj, Regadenoson, 0.1 MG Euegne Talley M.D. 12/16/2015 Injection Inj, Regadenoson, 0.1 MG Marline Henriquez, CRISTINA 12/16/2015 Injection Technetium TC 99M Eugene Talley M.D. 12/16/2015 Tetrofosmin, Per Unit Dose Up To 40 Millicuries Injection Technetium TC 99M Marline Henriquez, CRISTINA 12/16/2015 Tetrofosmin, Per Unit Dose Up To [...] Available Procedures Date Code Description Status 11/13/2019 41299 EKG Tracing & Interpretation Completed 10/26/2019 69491 ECHO Transthorasic Realtime 2D W Doppler & Color Flow Hosp Completed 10/26/2019 58051 EKG, Interpretation Only Completed 09/09/2019 90103 EKG, Interpretation Only Completed 09/08/2019 19383 ECHO Transthorasic Realtime 2D W Doppler & Color Flow Hosp Completed 09/08/2019 57400 EKG, Interpretation Only Completed Medical Devices Description No Information Available Encounters Type Date Location Provider Dx Diagnosis [facility]:10a Assoc,pc Mary, CRISTINA urgency Hospitalists R07.9 Chest pain, unspecified [facility] R[facility] Chest pain, 10:09a Assoc,pc [place], [place] unspecified Hospitalists G89.29 Other chronic pain E87.8 Oth disorders of electrolyte and fluid balance, NEC K22.0 Achalasia of cardia R11.2 Nausea with vomiting, unspecified I10 Essential (primary) hypertension Office Visit 12/21/2019 10:08a [facility] Aravind R07.9 Chest pain, Assoc,pc Armando, [place] unspecified Hospitalists G89.29 Other chronic pain E87.8 Oth disorders of electrolyte and fluid balance, NEC R79.89 Other specified abnormal findings of blood chemistry I10 Essential (primary) hypertension K22.0 Achalasia of cardia R11.2 Nausea with vomiting, unspecified Office Visit 12/20/2019 10:08a [facility] Aravind R07.9 Chest pain, Assoc,pc Armando, [place] unspecified Hospitalists G89.29 Other chronic pain E87.8 Oth disorders of electrolyte and fluid balance, NEC R79.89 Other specified abnormal findings of blood chemistry I10 Essential (primary) hypertension K22.0 Achalasia of cardia R11.2 Nausea with vomiting, unspecified Office Visit 12/19/2019 10:07a [facility] Tennille Sierra R07.9 Chest pain , Assoc,pc N.P. unspecified Hospitalists I10 Essential (primary) hypertension Office Visit 11/13/2019 1:45p [facility] Rock Mcgee R07.9 Chest pain, Of Dwight Domínguez M.D., unspecified FACC, FASNC I25.10 Athscl heart disease of [place] coronary artery w/o ang pctrs R94.31 Abnormal electrocardiogram [ECG] [EKG] Office Visit 10/27/2019 9:15a [facility] Laura Vazquezulx, G92 Toxic encephalopathy Assoc,pc [employer] INSPECTOR Hospitalists N39.0 Urinary tract infection, site not specified Office Visit 10/26/2019 9:14a [facility] Yumiko G92 Toxic encephalopathy Assoc,pc Leda Milan Hospitalists K22.0 Achalasia of cardia I25.10 Athscl heart disease of [place] coronary artery w/o ang pctrs I10 Essential (primary) hypertension G89.29 Other chronic pain K21.9 Gastro-esophageal reflux disease without esophagitis Z72.0 Tobacco use Office Visit 10/25/2019 9:14a [facility] Kimo G92 Toxic encephalopathy Assoc,rodirguez Castanon M.D. Hospitalists R44.3 Hallucinations, unspecified I16.0 Hypertensive urgency R09.02 Hypoxemia E43 Unspecified severe protein-calorie malnutrition Z93.1 Gastrostomy status Office Visit 09/10/2019 10:07a [facility] Rosibel K22.0 Achalasia of Assoc,pc JAIME Cisneros cardia Hospitalists R10.10 Upper abdominal pain, unspecified I16.0 Hypertensive urgency R07.9 Chest pain, unspecified Office Visit 09/08/2019 10:05a [facility] Tunde Burt, I16.0 Hypertensive Assoc,pc urgency [...] Olivarez 12/22/2019 R11.2 Nausea with vomiting, unspecified Divina Hernandez PA 12/22/2019 I10 Essential (primary) hypertension Divina Hernandez [...] R07.9 Chest pain, unspecified Rock Domínguez M.D., [facility], FASMI 11/13/2019 I25.10 Atherosclerotic heart disease of Rock Domínguez M.D., [facility], [place] coronary artery without angina FASMI pectoris 11/13/2019 R94.31 Abnormal electrocardiogram [ECG] [EKG] Rock Domínguez M.D., [facility], FASMI 10/27/2019 G92 Toxic encephalopathy Laura Darvin, [employer] INS[employer] 10/27/2019 N39.0 Urinary tract infection, site not Laura Darvin, FORECL[employer] FIELD INSPECTOR specified 10/26/2019 R94.31 Abnormal electrocardiogram [ECG] [EKG] Neisha Garcia M.D. 10/26/2019 R94.31 Abnormal electrocardiogram [ECG] [EKG] Eugene Talley M.D. 10/26/2019 G92 Toxic encephalopathy Dionicio Urias.OEusebio 10/26/2019 K22.0 Achalasia of cardia Dionicio Urias.OEusebio 10/26/2019 I25.10 Atherosclerotic heart disease of Dionicio Urisa.O. [place] coronary artery without angina pectoris 10/26/2019 I10 Essential (primary) hypertension Dionicio Urias.OEusebio 10/26/2019 G89.29 Other chronic pain Dionicio Urias.OEusebio 10/26/2019 K21.9 Gastro-esophageal reflux disease Dionciio Urias.OEusebio without esophagitis 10/26/2019 Z72.0 Tobacco use Dionicio Urias.OEusebio 10/25/2019 G92 Toxic encephalopathy Kimo Castanon M.D. 10/25/2019 R44.3 Hallucinations, unspecified Kimo Castanon M.D. 10/25/2019 I16.0 Hypertensive urgency Kimo Castanon M.D. 10/25/2019 R09.02 Hypoxemia Kimo Castanon M.D. 10/25/2019 E43 Unspecified severe protein-calorie Kimo Castanon M.D. malnutrition 10/25/2019 Z93.1 Gastrostomy status Kimo Castanon M.D. 09/10/2019 K22.0 Achalasia of cardia Rosibel Cisneros PA-C 09/10/2019 R10.10 Upper abdominal pain, unspecified Rosibel lAeida'ZEN blandC 09/10/2019 I16.0 Hypertensive urgency ZEN JavierC 09/10/2019 R07.9 Chest pain, unspecified Rosibel Aleida'ZEN blandC 09/09/2019 R94.31 Abnormal electrocardiogram [ECG] [EKG] Neisha Garcia M.D. 09/09/2019 I16.0 Hypertensive urgency Rosibel Aleida'ZEN blandC 09/09/2019 R07.9 Chest pain, unspecified Rosibel O'edwina, PA-C 09/09/2019 K22.0 Achalasia of cardia Rosibel Cisneros [...] 10:45 am - Rock Domínguez M.D., FACC, FASMI at [facility]11/13/2019 - Rock Domínguez M.D., [facility], WRMYOB96.9 Chest pain, unspecifiedNew Orders:Stress Test, Pharmacologic Nuclear (Lexiscan), Ordered: 11/13/19Comments:As discussed, we will recheck your stress test. Overall I feel your blood pressure is okay and if stays increased, could increase your Imdur further with your PCP (which may also help with your esophageal spasm). Your echo findings are stable. Please continue to stay hydrated.Follow up:after NLMI25.10 Atherosclerotic heart disease of [place] coronary artery without angina vnfmyajeV34.31 Abnormal electrocardiogram [ECG] [ EKG] Functional Status Description No Information Available Mental Status Description No Information Available Referrals Description No Information Available
--- OUTSIDE RECORDS SUMMARY | 2020-01-19 08:23 | XMS REPORT ---
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 w/o ang pctrs ang pctrs Encounter Encounter Diagnosis Active Mercedez for for 07-07 Ingrahm attention attention [id number] to to gastrostomy gastrostomy Gastro-esop Gastro-esop Diagnosis Active Mercedez hageal hageal 07-07 Ingrahm reflux reflux [id number] disease disease without without esophagitis esophagitis Other Other Diagnosis Active Mercedez specified specified 07-07 Ingrahm arthritis, arthritis, [id number] unspecified unspecified site site Essential Essential Diagnosis Active Mercedez (primary) (primary) 07-07 Ingrahm hypertensio hypertensio [id number] n n residential residential Diagnosis Active Mercedez (current) (current) Ingrahm use of use of [id number] anticoagula anticoagula nts nts Nicotine Nicotine Diagnosis Active Mercedez dependence, dependence, Ingrahm cigarettes, cigarettes, [id number] uncomplicat uncomplicat ed ed Personal Personal Diagnosis Active Mercedez history of history of Ingrahm malignant malignant [id number] neoplasm of neoplasm of breast breast Prsnl hx of Prsnl hx of Diagnosis Active Mercedez TIA (TIA), TIA (TIA), Ingrahm and cereb and cereb [id number] infrc w/o infrc w/o resid resid deficits deficits Pain frequent Pain Mgmt Resolve 2018-11-26 Ana pain d 9 16:15:00 [place] 13:30: [id number] 00 Pain severe pain Pain Mgmt Resolve 2018-11-26 Ana d 9 16:15:00 [place] 13:30: [id number] 00 Endo/Han anti-coagul Endo/Han Resolve 2019-02-06 Ana ation d 07-07 11:15:00 [place] therapy 13:30: [id number] 00 Integument surgical Integument Resolve 2018-08-05 Rea wound d 07-07 13:35:00 [place] present 13:30: [id number] 00 Nutrition nutritional Nutrition Resolve 2019-01-02 Ana restriction d 07-07 10:00:00 [place] s 13:30: [id number] 00 Nutrition changing Nutrition Resolve 2019-01-02 Ana weight/appe d 07-07 10:00:00 [place] tite 13:30: [id number] 00 Nutrition nutritional Nutrition Resolve 2019-01-02 Ana risk d 07-07 10:00:00 [place] 13:30: [id number] 00 Nutrition enteral Nutrition Resolve 2019-02-06 Ana therapy d 07-07 11:15:00 [place] 13:30: [id number] 00 Safety structural Safety Resolve 2019-02-06 Ana barriers d 07-07 11:15:00 [place] present 13:30: [id number] 00 Safety fall risk Safety Resolve 2019-02-06 Ana factor d 07-07 11:15:00 [place] present 13:30: [id number] 00 Safety risk for Safety Resolve 2019-02-06 Ana hospitaliza d 07-07 11:15:00 [place] tion 13:30: [id number] 00 Medication potential Meds Resolve 2019-02-06 Ana clinically d 07-07 11:15:00 [place] significant 13:30: [id number] medication 00 issue Musculoskel requires Musculoske Resolve 2019-02-06 Ana etal human letal d 07-07 11:15:00 [place] assist to 13:30: [id number] leave home 00 IV IV present IV Resolve 2019-02-06 Rea d 9-30 11:15:00 [place] [id number] Respiratory dyspnea Respirator Resolve 2017-102019-02-06 [place]ez present y d 0-16 11:15:00 [place] 13:35: [id number] 00 Neuro confusion Neuro/Emot Unknown 2017-10 Mer[facility]ez present ion 0-16 [place] 13:35: [id number] 00 Neuro depressive Neuro/Emot Unknown 2017-10 Mercedez feelings ion 0-16 [place] present 13:35: [id number] 00 Safety can be left Safety Resolve 2017-102019-02-06 Mercedez alone for d 0-18 11:15:00 [place] only short 08:10: [id number] periods 00 Integument surgical Integument Resolve 2017-102018-10-30 Shila wound d 1-15 10:10:00 Brian present 08:55: [id number] 00 Elimination GI drain or Eliminatio Resolve 2017-102019-02-06 Shila tube n d 1-15 11:15:00 Brian present 08:55: [id number] 00 Neuro anxiety Neuro/Emot Resolve 2017-102019-02-06 Shila present ion d 1-15 11:15:00 Brian 08:55: [id number] 00 Medication injectable Meds Resolve 2017-102019-02-06 Shila med d 1-15 11:15:00 Brian assistance 08:55: [id number] required 00 Safety fire risk Safety Resolve 2017-102019-02-06 Shila present d 1-15 11:15:00 Brian 13:00: [id number] 00 Elimination urinary Eliminatio Resolve 2019-02-06 Mercedez incontinenc n d - 11:15:00 [place] e 14:20: [id number] 00 Pain frequent Pain Mgmt Resolve 2019-02-06 Mercedez pain d 2-15 11:15:00 [place] 10:15: [id number] 00 Safety risk for Safety Unknown Leanna hospitaliza 02-06 [place] tion 15:45: [id number] 00 Respiratory lung sounds Respirator Resolve 2019-04-03 Leanna deficit y d 02-10 10:01:00 [place] 13:20: [id number] 00 Respiratory smoker Respirator Resolve 2019-04-03 Leanna y d 4-29 10:01:00 Regeczi 12:10: [id number] 00 Respiratory dyspnea Respirator Resolve 2019-06-05 Mercedez present y d 5-15 10:30:00 [place] 09:00: [id number] 00 Integument surgical Integument Resolve 2019-03-27 Mercedez wound d 5-15 09:15:00 Ingra[place] present 09:00: [id number] 00 Nutrition enteral Nutrition Resolve 2019-03-27 Mercedez therapy d -15 09:15:00 [place] 09:00: [id number] 00 Elimination urinary Eliminatio Resolve 2019-04-10 Mercedez incontinenc n d 15 09:30:00 Ingrahm e 09:00: [id number] 00 Neuro confusion Neuro/Emot Resolve 2019-11-25 Mercedez present ion d 15 11:10:00 [place] 09:00: [id number] 00 Neuro anxiety Neuro/Emot Resolve 2019-11-25 Mercedez present ion d 515 11:10:00 [place] 09:00: [id number] 00 Neuro depressive Neuro/Emot Resolve 2019-11-25 Mercedez feelings ion d 15 11:10:00 [place] present 09:00: [id number] 00 Neuro impaired Neuro/Emot Resolve 2019-11-25 Mercedez decision-ma ion d 15 11:10:00 [facility] sonali 09:00: [id number] 00 Activity self-care Activity Resolve 2019-05-20 Mer[place]ez deficit d -15 11:15:00 [place] 09:00: [id number] 00 Safety fall risk Safety Resolve 2019-07-17 Mercedez factor d 5-15 10:35:00 Ingra[place] present 09:00: [id number] 00 Safety risk for Safety Resolve 2019-07-17 Mercedez hospitaliza d 5-15 10:35:00 Ingra[place] tion 09:00: [id number] 00 Medication potential Meds Resolve 2019-03-27 Mercedez clinically d 5-15 09:15:00 Ingra[place] significant 09:00: [id number] medication 00 issue Integument surgical Integument Resolve 2019-05-20 Mercedez wound d 7-12 11:15:00 In[place] present 10:00: [id number] 00 Nutrition enteral Nutrition Resolve 2019-06-26 Mercedez therapy d 7-12 10:35:00 [place] 10:00: [id number] 00 Respiratory dyspnea Respirator Resolve 2019-08-07 Leanna present y d 06-26 10:25:00 Regeczi 10:35: [id number] 00 Respiratory smoker Respirator Resolve 2019-07-01 Leanna y d 06-26 10:15:00 Regeczi 10:35: [id number] 00 Endo/Han anti-coagul Endo/Han Resolve 2019-07-23 Leanna ation d 06-26 10:15:00 Regeczi therapy 10:35: [id number] 00 Elimination urinary Eliminatio Resolve 2019-07-23 Leanna incontinenc n d 06-26 10:15:00 Regeczi e 10:35: [id number] 00 Elimination nausea/vomi Eliminatio Resolve 2019-07-01 Leanna serranog n d 06-26 10:15:00 Regeczi 10:35: [id number] 00 Integument surgical Integument Resolve 2019-07-23 Mer[place]ez wound d 9-11 10:15:00 In[place] present 10:15: [id number] 00 Nutrition enteral Nutrition Resolve 2019-07-23 Mer[facility]ez therapy d 07-01 10:15:00 [place] 10:15: [id number] 00 Respiratory smoker Respirator Resolve 2019-07-16 Leanna y d 07-16 10:05:00 Regeczi 10:05: [id number] 00 Elimination diarrhea Eliminatio Resolve 2019-07-23 Leanna n d 07-17 10:15:00 Rege[place] 10:35: [id number] 00 Cardio hypertensio Cardiovasc Resolve 2018-102019-07-30 Leanna olivares 0 10:00:00 Rege[place] 10:15: [id number] 00 Safety risk for Safety Resolve 2018-102019-07-23 Leanna hospitaliza d 0-03 10:15:00 Regeczi tion 10:15: [id number] 00 24 Hr Diet knowledge/s NT: 24Hr Resolve 2018-102019-07-23 Wen kill Diet d 0-03 15:00:00 Rousseau deficit - 15:00: [id number] pt 00 Nutritional eating NT: Resolve 2018-102019-07-23 Wen Barrier difficultie Barriers d 0-03 15:00:00 Rousseau s present 15:00: [id number] 00 Safety risk for Safety Resolve 2018-102019-08-07 Roseline hospitaliza d 0-04 10:25:00 [place] tion 14:00: [id number] 00 Social financial MURIEL: Active 2018-10 [facility] Services resource Social 0-04 [place] deficit Services 14:00: [id number] 00 Social support MURIEL: Active 2018-10 [facility] deficit Social 0-04 [place] Services 14:00: [id number] 00 Social knowledge/s MURIEL: Active 2018-10 [facility] kill Social 0-04 [place] deficit - Services 14:00: [id number] pt 00 Social financial MURIEL: Unknown 2018-10 [facility] Services resource Social 0-10 In[facility] deficit Services 15:00: [id number] 00 Social knowledge/s MURIEL: Unknown 2018-10 [facility] Services kill Social 0-10 In[place] deficit - Services 15:00: [id number] pt 00 Respiratory lung sounds Respirator Resolve 2018-102019-08-07 Leanna deficit y d 0-18 10:25:00 Regeczi 10:25: [id number] 00 Respiratory dyspnea Respirator Resolve 2018-102019-10-23 Mercedez present y d 10-28 10:15:00 [place] 11:00: [id number] 00 Integument surgical Integument Resolve 2018-102019-09-11 Mercedez wound d 10-28 09:50:00 Ingrahm present 11:00: [id number] 00 Nutrition enteral Nutrition Resolve 2018-102019-09-11 Mercedez therapy d 10-28 09:50:00 [place] 11:00: [id number] 00 Elimination urinary Eliminatio Resolve 2018-102019-09-11 Mercedez incontinenc n d 10-28 09:50:00 Ingrahm e 11:00: [id number] 00 Safety fall risk Safety Resolve 2018-102019-09-11 Mercedze factor d 10-28 09:50:00 Ingra[place] present 11:00: [id number] 00 Safety risk for Safety Resolve 2018-102019-09-23 Mercedez hospitaliza d 10-28 11:10:00 Ingrahm tion 11:00: [id number] 00 Safety risk for Safety Unknown 2018-10 Mercedez hospitaliza 11-24 Ingrahm tion 15:00: [id number] 00 Cardio hypertensio Cardiovasc Resolve 2019-11-25 Leanna n ular d 10-23 11:10:00 Rege[place]zi 10:15: [id number] 00 Elimination urinary Eliminatio Resolve 2019-11-05 Leanna incontinenc n d 10-23 10:23:00 Regeczi e 10:15: [id number] 00 Elimination constipatio Eliminatio Resolve 2019-11-05 Leanna n n d 10-23 10:23:00 Rege[place] 10:15: [id number] 00 Integument surgical Integument Resolve 2019-11-19 Mercedez wound d 10-28 10:50:00 Ingra[place] present 10:50: [id number] 00 Nutrition enteral Nutrition Resolve 2019-11-25 Mercedze therapy d 10-28 11:10:00 [place] 10:50: [id number] 00 Elimination UTI within Eliminatio Resolve 2019-11-05 Mercedez past 14 n d 10-28 10:23:00 Ingrahm days 10:50: [id number] 00 Activity self-care Activity Resolve 2019-11-05 Mer[place]ez deficit d 10-28 10:23:00 [place] 10:50: [id number] 00 Safety fall risk Safety Resolve 2019-11-05 Mercedez factor d 10-28 10:23:00 Ingra[place] present 10:50: [id number] 00 Safety risk for Safety Resolve 2019-11-05 Mrecedez hospitaliza d 10-28 10:23:00 Ingrahm tion 10:50: [id number] 00 Safety risk for Safety Active Roseline hospitaliza 2-12 [place] tion 11:00: [id number] 00 Nutrition enteral Nutrition Unknown Mercedez therapy 3- Ingrahm 08:45: [id number] 00 Integument surgical Integument Active Mercedez wound 12-24 Ingrahm present 08:45: [id number] 00 Neuro depressive Neuro/Emot Active Mercedez feelings ion - Ingrahm present 08:45: [id number] 00 Neuro confusion Neuro/Emot Active Mercedez present ion 3- Ingrahm 08:45: [id number] 00 Neuro anxiety Neuro/Emot Active Mercedez present ion 12-24 [place] 08:45: [id number] 00 Safety fall risk Safety Active Mercedez factor 12-24 Ingrahm present 08:45: [id number] 00 Medication potential Meds Resolve 2019-12-29 Mercedez clinically d 12-24 10:15:00 Ingrahm significant 08:45: [id number] medication 00 issue Allergies, Adverse Reactions, Alerts Allergy Allergy Status Severity Reaction(s) Onset Inactive Treating Comments Name Type Date Date Clinician latex Base Active Unknown Hives Mer[facility]ez Ingredient 07-07 [facility] [id number] amoxicillin Base Active Unknown Anaphylaxis Mer[facility]ez Ingredient 07-07 [facility] [id number] bee venom Base Active Unknown Anaphylaxis Mer[facility]ez protein Ingredient 07-07 [facility]gr[facility] (honey bee) [id number] Botox Medication Active Unknown Anaphylaxis Mercedez Name ID 07-07 [facility] [id number] contrast Unknown Active Unknown Anaphylaxis Mercedez dye 07-07 [facility] [id number] Penicillins Allergen Active Unknown Anaphylaxis Mercedez Group 07-07 Ingrm [id number] shellfish Base Active Unknown Anaphylaxis Mercedez derived Ingredient 07-07 Ingrm [id number] adhesive Base Active Unknown Hives Mercedez tape Ingredient 07-07 [facility] [id number] nsaids Unknown Active Unknown stomach issues Mercedez 07-07 Ingrm [id number] oxycodone Base Active Unknown swelling Mercedez Ingredient 07-07 [facility] [id number] Betadine Medication Active Unknown Rash Mercedez Name ID 07-07 Janetteva [facility] [id number] Hibiclens Medication Active Unknown Rash Mercedez Name ID 07-07 Janettegurpreet [id number] evironmenta Unknown Active Unknown hay fever, Rea l/seasonal watery eye, 07-07 Guidelli itching, [id number] sneeze, congestion povidone-io Base Active Unknown itching Rea dine Ingredient 07-07 Guid[place] [id number] Iodine and Allergen Active Unknown Anaphylaxis Rea Iodide Group 07-07 Guid[place] Containing [id number] Products albumin Base Active Unknown Anaphylaxis Rea colloid, Ingredient 07-07 Guidelli human [id number] fentanyl Base Active Unknown hallucinations Rea Ingredient 07-07 Guidelli [id number] Medications Ordered Filled Start Stop Current Ordering [...]
--- OUTSIDE RECORDS SUMMARY | 2020-01-19 08:23 | XMS REPORT ---
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 w/o ang pctrs ang pctrs Encounter Encounter Diagnosis Active Mercedez for for 07-07 Ingrahm attention attention [id number] to to gastrostomy gastrostomy Gastro-esop Gastro-esop Diagnosis Active Mercedez hageal hageal 07-07 Ingrahm reflux reflux [id number] disease disease without without esophagitis esophagitis Other Other Diagnosis Active Mercedez specified specified 07-07 Ingrahm arthritis, arthritis, [id number] unspecified unspecified site site Essential Essential Diagnosis Active Mercedez (primary) (primary) 07-07 Ingrahm hypertensio hypertensio [id number] n n correction correction Diagnosis Active Mercedez (current) (current) Ingrahm use of use of [id number] anticoagula anticoagula nts nts Nicotine Nicotine Diagnosis Active Mercedez dependence, dependence, Ingrahm cigarettes, cigarettes, [id number] uncomplicat uncomplicat ed ed Personal Personal Diagnosis Active Mercedez history of history of Ingrahm malignant malignant [id number] neoplasm of neoplasm of breast breast Prsnl hx of Prsnl hx of Diagnosis Active Mercedez TIA (TIA), TIA (TIA), Ingrahm and cereb and cereb [id number] infrc w/o infrc w/o resid resid deficits deficits Pain frequent Pain Mgmt Resolve 2018-11-26 Ana pain d 9 16:15:00 [place] 13:30: [id number] 00 Pain severe pain Pain Mgmt Resolve 2018-11-26 Ana d 9 16:15:00 [place] 13:30: [id number] 00 Endo/Han anti-coagul Endo/Han Resolve 2019-02-06 Ana ation d 07-07 11:15:00 [place] therapy 13:30: [id number] 00 Integument surgical Integument Resolve 2018-08-05 Rea wound d 07-07 13:35:00 Guidelli present 13:30: [id number] 00 Nutrition nutritional Nutrition Resolve 2019-01-02 Ana restriction d 07-07 10:00:00 [place] s 13:30: [id number] 00 Nutrition changing Nutrition Resolve 2019-01-02 Ana weight/appe d 07-07 10:00:00 [place] tite 13:30: [id number] 00 Nutrition nutritional Nutrition Resolve 2019-01-02 Ana risk d 07-07 10:00:00 [place] 13:30: [id number] 00 Nutrition enteral Nutrition Resolve 2019-02-06 Ana therapy d 07-07 11:15:00 [place] 13:30: [id number] 00 Safety structural Safety Resolve 2019-02-06 Ana barriers d 07-07 11:15:00 [place] present 13:30: [id number] 00 Safety fall risk Safety Resolve 2019-02-06 Ana factor d 07-07 11:15:00 [place] present 13:30: [id number] 00 Safety risk for Safety Resolve 2019-02-06 Ana hospitaliza d 07-07 11:15:00 [place] tion 13:30: [id number] 00 Medication potential Meds Resolve 2019-02-06 Ana clinically d 07-07 11:15:00 [place] significant 13:30: [id number] medication 00 issue Musculoskel requires Musculoske Resolve 2019-02-06 Ana etal human letal d 07-07 11:15:00 [place] assist to 13:30: [id number] leave home 00 IV IV present IV Resolve 2019-02-06 Rea d 9-30 11:15:00 Lissette [id number] Respiratory dyspnea Respirator Resolve 2017-102019-02-06 Mercedez present y d 0-16 11:15:00 Ingrahm 13:35: [id number] 00 Neuro confusion Neuro/Emot Unknown 2017-10 Mercedez present ion 0-16 Ingrahm 13:35: [id number] 00 Neuro depressive Neuro/Emot Unknown 2017-10 Mercedez feelings ion 0-16 Ingrahm present 13:35: [id number] 00 Safety can be left Safety Resolve 2017-102019-02-06 Mercedez alone for d 0-18 11:15:00 Ingrahm only short 08:10: [id number] periods 00 Integument surgical Integument Resolve 2017-102018-10-30 Shila wound d 1-15 10:10:00 Brian present 08:55: [id number] 00 Elimination GI drain or Eliminatio Resolve 2017-102019-02-06 Shila tube n d 1-15 11:15:00 Brian present 08:55: [id number] 00 Neuro anxiety Neuro/Emot Resolve 2017-102019-02-06 Shila present ion d 1-15 11:15:00 Brian 08:55: [id number] 00 Medication injectable Meds Resolve 2017-102019-02-06 Shila med d 1-15 11:15:00 Brian assistance 08:55: [id number] required 00 Safety fire risk Safety Resolve 2017-102019-02-06 Shila present d 1-15 11:15:00 Brian 13:00: [id number] 00 Elimination urinary Eliminatio Resolve 2019-02-06 Mercedez incontinenc n d - 11:15:00 Ingrahm e 14:20: [id number] 00 Pain frequent Pain Mgmt Resolve 2019-02-06 Mercedez pain d 2-15 11:15:00 Ingrahm 10:15: [id number] 00 Safety risk for Safety Unknown Leanna hospitaliza 02-06 Regeczi tion 15:45: [id number] 00 Respiratory lung sounds Respirator Resolve 2019-04-03 Leanna deficit y d 02-10 10:01:00 Regeczi 13:20: [id number] 00 Respiratory smoker Respirator Resolve 2019-04-03 Leanna y d 4-29 10:01:00 Regeczi 12:10: [id number] 00 Respiratory dyspnea Respirator Resolve 2019-06-05 Mercedez present y d 5-15 10:30:00 Ingrahm 09:00: [id number] 00 Integument surgical Integument Resolve 2019-03-27 Mercedez wound d 5-15 09:15:00 Ingrahm present 09:00: [id number] 00 Nutrition enteral Nutrition Resolve 2019-03-27 Mercedez therapy d -15 09:15:00 Ingrahm 09:00: [id number] 00 Elimination urinary Eliminatio Resolve 2019-04-10 Mercedez incontinenc n d 15 09:30:00 Ingrahm e 09:00: [id number] 00 Neuro confusion Neuro/Emot Resolve 2019-11-25 Mercedez present ion d 15 11:10:00 Ingrahm 09:00: [id number] 00 Neuro anxiety Neuro/Emot Resolve 2019-11-25 Mercedez present ion d 515 11:10:00 Ingrahm 09:00: [id number] 00 Neuro depressive Neuro/Emot Resolve 2019-11-25 Mercedez feelings ion d 15 11:10:00 Ingrahm present 09:00: [id number] 00 Neuro impaired Neuro/Emot Resolve 2019-11-25 Mercedez decision-ma ion d 15 11:10:00 [employer] sonali 09:00: [id number] 00 Activity self-care Activity Resolve 2019-05-20 Mercedez deficit d -15 11:15:00 Ingrahm 09:00: [id number] 00 Safety fall risk Safety Resolve 2019-07-17 Mercedez factor d 5-15 10:35:00 Ingrahm present 09:00: [id number] 00 Safety risk for Safety Resolve 2019-07-17 Mercedez hospitaliza d 5-15 10:35:00 Ingrahm tion 09:00: [id number] 00 Medication potential Meds Resolve 2019-03-27 Mercedez clinically d 5-15 09:15:00 Ingrahm significant 09:00: [id number] medication 00 issue Integument surgical Integument Resolve 2019-05-20 Mercedez wound d 7-12 11:15:00 Ingrahm present 10:00: [id number] 00 Nutrition enteral Nutrition Resolve 2019-06-26 Mercedez therapy d 7-12 10:35:00 Ingrahm 10:00: [id number] 00 Respiratory dyspnea Respirator Resolve 2019-08-07 Leanna present y d 06-26 10:25:00 Regeczi 10:35: [id number] 00 Respiratory smoker Respirator Resolve 2019-07-01 Leanna y d 06-26 10:15:00 Regeczi 10:35: [id number] 00 Endo/Han anti-coagul Endo/Han Resolve 2019-07-23 Leanna ation d 06-26 10:15:00 Regeczi therapy 10:35: [id number] 00 Elimination urinary Eliminatio Resolve 2019-07-23 Leanna incontinenc n d 06-26 10:15:00 Regeczi e 10:35: [id number] 00 Elimination nausea/vomi Eliminatio Resolve 2019-07-01 Leanna serranog n d 06-26 10:15:00 Regeczi 10:35: [id number] 00 Integument surgical Integument Resolve 2019-07-23 Mercedez wound d 9-11 10:15:00 Ingrahm present 10:15: [id number] 00 Nutrition enteral Nutrition Resolve 2019-07-23 Mercedez therapy d 07-01 10:15:00 Ingrahm 10:15: [id number] 00 Respiratory smoker Respirator Resolve 2019-07-16 Leanna y d 07-16 10:05:00 Regeczi 10:05: [id number] 00 Elimination diarrhea Eliminatio Resolve 2019-07-23 Leanna n d 07-17 10:15:00 Regeczi 10:35: [id number] 00 Cardio hypertensio Cardiovasc Resolve 2018-102019-07-30 Leanna olivares 0 10:00:00 Regeczi 10:15: [id number] 00 Safety risk for Safety Resolve 2018-102019-07-23 Leanna hospitaliza d 0-03 10:15:00 Regeczi tion 10:15: [id number] 00 24 Hr Diet knowledge/s NT: 24Hr Resolve 2018-102019-07-23 Wen kill Diet d 0-03 15:00:00 [place] deficit - 15:00: [id number] pt 00 Nutritional eating NT: Resolve 2018-102019-07-23 Wen Barrier difficultie Barriers d 0-03 15:00:00 [place] s present 15:00: [id number] 00 Safety risk for Safety Resolve 2018-102019-08-07 Roseline hospitaliza d 0-04 10:25:00 [place] tion 14:00: [id number] 00 Social financial MURIEL: Active 2018-10 [facility] Services resource Social 0-04 [place] deficit Services 14:00: [id number] 00 Social support MURIEL: Active 2018-10 [facility] deficit Social 0-04 [place] Services 14:00: [id number] 00 Social knowledge/s MURIEL: Active 2018-10 [facility] kill Social 0-04 [place] deficit - Services 14:00: [id number] pt 00 Social financial MURIEL: Unknown 2018-10 [facility] Services resource Social 0-10 Ingrahm deficit Services 15:00: [id number] 00 Social knowledge/s MURIEL: Unknown 2018-10 [facility] Services kill Social 0-10 Ingrahm deficit - Services 15:00: [id number] pt 00 Respiratory lung sounds Respirator Resolve 2018-102019-08-07 Leanna deficit y d 0-18 10:25:00 Regeczi 10:25: [id number] 00 Respiratory dyspnea Respirator Resolve 2018-102019-10-23 Mercedez present y d 10-28 10:15:00 Ingrahm 11:00: [id number] 00 Integument surgical Integument Resolve 2018-102019-09-11 Mercedez wound d 10-28 09:50:00 Ingrahm present 11:00: [id number] 00 Nutrition enteral Nutrition Resolve 2018-102019-09-11 Mercedez therapy d 10-28 09:50:00 Ingrahm 11:00: [id number] 00 Elimination urinary Eliminatio Resolve 2018-102019-09-11 Mrecedez incontinenc n d 10-28 09:50:00 Ingrahm e 11:00: [id number] 00 Safety fall risk Safety Resolve 2018-102019-09-11 Mercedez factor d 10-28 09:50:00 Ingrahm present 11:00: [id number] 00 Safety risk for Safety Resolve 2018-102019-09-23 Mercedez hospitaliza d 10-28 11:10:00 Ingrahm tion 11:00: [id number] 00 Safety risk for Safety Unknown 2018-10 Mercedez hospitaliza 11-24 Ingrahm tion 15:00: [id number] 00 Cardio hypertensio Cardiovasc Resolve 2019-11-25 Leanna n ular d 10-23 11:10:00 Regeczi 10:15: [id number] 00 Elimination urinary Eliminatio Resolve 2019-11-05 Leanna incontinenc n d 10-23 10:23:00 Regeczi e 10:15: [id number] 00 Elimination constipatio Eliminatio Resolve 2019-11-05 Leanna n n d 10-23 10:23:00 Regeczi 10:15: [id number] 00 Integument surgical Integument Resolve 2019-11-19 Mercedez wound d 10-28 10:50:00 Ingrahm present 10:50: [id number] 00 Nutrition enteral Nutrition Resolve 2019-11-25 Mercedez therapy d 10-28 11:10:00 Ingrahm 10:50: [id number] 00 Elimination UTI within Eliminatio Resolve 2019-11-05 Mercedez past 14 n d 10-28 10:23:00 Ingrahm days 10:50: [id number] 00 Activity self-care Activity Resolve 2019-11-05 Mercedez deficit d 10-28 10:23:00 Ingrahm 10:50: [id number] 00 Safety fall risk Safety Resolve 2019-11-05 Mercedez factor d 10-28 10:23:00 Ingrahm present 10:50: [id number] 00 Safety risk for Safety Resolve 2019-11-05 Mercedez hospitaliza d 10-28 10:23:00 Ingrahm tion 10:50: [id number] 00 Safety risk for Safety Active Roseline hospitaliza 2-12 [place] tion 11:00: [id number] 00 Nutrition enteral Nutrition Unknown Mercedez therapy 3-05 Ingrahm 08:45: [id number] 00 Integument surgical Integument Active Mercedez wound 3-06 Ingrahm present 08:45: [id number] 00 Neuro depressive Neuro/Emot Active Mercedez feelings ion 3- Ingrahm present 08:45: [id number] 00 Neuro confusion Neuro/Emot Active 2019- Mercedez present ion 3-06 Ingrahm 08:45: [id number] 00 Neuro anxiety Neuro/Emot Active 2019- Mercedez present ion 3- Ingrahm 08:45: [id number] 00 Safety fall risk Safety Active Mercedez factor 3- Ingrahm present 08:45: [id number] 00 Medication potential Meds Active Mercedez clinically 12-24 Ingrahm significant 08:45: [id number] medication 00 issue Allergies, Adverse Reactions, Alerts Allergy Allergy Status Severity Reaction(s) Onset Inactive Treating Comments Name Type Date Date Clinician latex Base Active Unknown [id number] amox[facility] Base Active Unknown Anaphylaxis [facility] [id number] bee venom Base Active Unknown Anaphylaxis [facility] protein [facility] [id number] Botox Medication Active Unknown Anaphylaxis Mercdeez Name ID 07-07 [facility] [id number] contrast Unknown Active Unknown Anaphylaxis [facility] [id number] Penicillins Allergen Active Unknown Anaphylaxis 2017- [facility] Group 07-07 Ingrm [id number] shellfish Base Active Unknown Anaphylaxis [facility] derived [facility]redient [facility] [id number] adhesive Base Active Unknown Hives [facility] [id number] nsaids Unknown Active Unknown stomach issues 2017- Mercedez 07-07 Ingrm [id number] oxycodone Base Active Unknown swelling [facility] [id number] Betadine Medication Active Unknown Rash [facility] [id number] Hibiclens Medication Active Unknown Rash [facility] [id number] evironmenta Unknown Active Unknown hay fever, Rea l/seasonal watery eye, 07-07 Guidelli itching, [id number] sneeze, congestion povidone-io Base Active Unknown itching Rea dine Ingredient 07-07 Guidelli [id number] Iodine and Allergen Active Unknown Anaphylaxis Rea Iodide Group 07-07 Guidelli Containing [id number] Products albumin Base Active Unknown Anaphylaxis Rea colloid, Ingredient 07-07 Guidelli human [id number] fentanyl Base Active Unknown hallucinations Rea Ingredient 07-07 Guidelli [id number] Medications Ordered Filled Start Stop Current Ordering [...] n 500 mg n 500 mg 01-13 Tsahia FINCH tablet tablet e cyanocobala cyanocobala No [...]
--- OUTSIDE RECORDS SUMMARY | 2020-01-19 08:24 | XMS REPORT ---
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/o artery w/o ang pctrs ang pctrs Encounter Encounter Diagnosis Active Mercedez for for 07-07 Ingrahm attention attention [id number] to to gastrostomy gastrostomy Gastro-esop Gastro-esop Diagnosis Active Mercedez hageal hageal 07-07 Ingrahm reflux reflux [id number] disease disease without without esophagitis esophagitis Other Other Diagnosis Active Mercedez specified specified 07-07 Ingrahm arthritis, arthritis, [id number] unspecified unspecified site site Essential Essential Diagnosis Active Mercedez (primary) (primary) 07-07 Ingrahm hypertensio hypertensio [id number] n n rn long term care rn long term care Diagnosis Active Mercedez (current) (current) Ingrahm use of use of [id number] anticoagula anticoagula nts nts Nicotine Nicotine Diagnosis Active Mercedez dependence, dependence, Ingrahm cigarettes, cigarettes, [id number] uncomplicat uncomplicat ed ed Personal Personal Diagnosis Active Mercedez history of history of Ingrahm malignant malignant [id number] neoplasm of neoplasm of breast breast Prsnl hx of Prsnl hx of Diagnosis Active Mercedez TIA (TIA), TIA (TIA), Ingrahm and cereb and cereb [id number] infrc w/o infrc w/o resid resid deficits deficits Pain frequent Pain Mgmt Resolve 2018-11-26 Ana pain d 9 16:15:00 [place] 13:30: [id number] 00 Pain severe pain Pain Mgmt Resolve 2018-11-26 Ana d 9 16:15:00 [place] 13:30: [id number] 00 Endo/Han anti-coagul Endo/Han Resolve 2019-02-06 Ana ation d 07-07 11:15:00 [place] therapy 13:30: [id number] 00 Integument surgical Integument Resolve 2018-08-05 Rea wound d 07-07 13:35:00 Guid[place] present 13:30: [id number] 00 Nutrition nutritional Nutrition Resolve 2019-01-02 Ana restriction d 07-07 10:00:00 [place] s 13:30: [id number] 00 Nutrition changing Nutrition Resolve 2019-01-02 Ana weight/appe d 07-07 10:00:00 [place] tite 13:30: [id number] 00 Nutrition nutritional Nutrition Resolve 2019-01-02 Ana risk d 07-07 10:00:00 [place] 13:30: [id number] 00 Nutrition enteral Nutrition Resolve 2019-02-06 Ana therapy d 07-07 11:15:00 [place] 13:30: [id number] 00 Safety structural Safety Resolve 2019-02-06 Ana barriers d 07-07 11:15:00 [place] present 13:30: [id number] 00 Safety fall risk Safety Resolve 2019-02-06 Ana factor d 07-07 11:15:00 [place] present 13:30: [id number] 00 Safety risk for Safety Resolve 2019-02-06 Ana hospitaliza d 07-07 11:15:00 [place] tion 13:30: [id number] 00 Medication potential Meds Resolve 2019-02-06 Ana clinically d 07-07 11:15:00 [place] significant 13:30: [id number] medication 00 issue Musculoskel requires Musculoske Resolve 2019-02-06 Ana etal human letal d 07-07 11:15:00 [place] assist to 13:30: [id number] leave home 00 IV IV present IV Resolve 2019-02-06 Rea d 9-30 11:15:00 Lissette [id number] Respiratory dyspnea Respirator Resolve 2017-102019-02-06 Mercedez present y d 0-16 11:15:00 [place] 13:35: [id number] 00 Neuro confusion Neuro/Emot Unknown 2017-10 Mercedez present ion 0-16 Ingra[place] 13:35: [id number] 00 Neuro depressive Neuro/Emot Unknown 2017-10 Mercedez feelings ion 0-16 Ingrahm present 13:35: [id number] 00 Safety can be left Safety Resolve 2017-102019-02-06 Mercedez alone for d 0-18 11:15:00 Ingrahm only short 08:10: [id number] periods 00 Integument surgical Integument Resolve 2017-102018-10-30 Shila wound d 1-15 10:10:00 Brian present 08:55: [id number] 00 Elimination GI drain or Eliminatio Resolve 2017-102019-02-06 Shila tube n d 1-15 11:15:00 Brian present 08:55: [id number] 00 Neuro anxiety Neuro/Emot Resolve 2017-102019-02-06 Shila present ion d 1-15 11:15:00 Brian 08:55: [id number] 00 Medication injectable Meds Resolve 2017-102019-02-06 Shila med d 1-15 11:15:00 Brian assistance 08:55: [id number] required 00 Safety fire risk Safety Resolve 2017-102019-02-06 Shila present d 1-15 11:15:00 Brian 13:00: [id number] 00 Elimination urinary Eliminatio Resolve 2019-02-06 Mercedez incontinenc n d - 11:15:00 Ingrahm e 14:20: [id number] 00 Pain frequent Pain Mgmt Resolve 2019-02-06 Mercedez pain d 2-15 11:15:00 Ingrahm 10:15: [id number] 00 Safety risk for Safety Unknown Leanna hospitaliza 02-06 Regeczi tion 15:45: [id number] 00 Respiratory lung sounds Respirator Resolve 2019-04-03 Leanna deficit y d 02-10 10:01:00 Regeczi 13:20: [id number] 00 Respiratory smoker Respirator Resolve 2019-04-03 Leanna y d 4-29 10:01:00 Regeczi 12:10: [id number] 00 Respiratory dyspnea Respirator Resolve 2019-06-05 Mercedez present y d 5-15 10:30:00 Ingrahm 09:00: [id number] 00 Integument surgical Integument Resolve 2019-03-27 Mercedez wound d 5-15 09:15:00 Ingrahm present 09:00: [id number] 00 Nutrition enteral Nutrition Resolve 2019-03-27 Mercedez therapy d -15 09:15:00 Ingrahm 09:00: [id number] 00 Elimination urinary Eliminatio Resolve 2019-04-10 Mercedez incontinenc n d 15 09:30:00 Ingrahm e 09:00: [id number] 00 Neuro confusion Neuro/Emot Resolve 2019-11-25 Mercedez present ion d 15 11:10:00 Ingrahm 09:00: [id number] 00 Neuro anxiety Neuro/Emot Resolve 2019-11-25 Mercedez present ion d 515 11:10:00 Ingrahm 09:00: [id number] 00 Neuro depressive Neuro/Emot Resolve 2019-11-25 Mercedez feelings ion d 15 11:10:00 Ingrahm present 09:00: [id number] 00 Neuro impaired Neuro/Emot Resolve 2019-11-25 Mercedez decision-ma ion d 15 11:10:00 [facility] sonali 09:00: [id number] 00 Activity self-care Activity Resolve 2019-05-20 Mercedez deficit d -15 11:15:00 Ingrahm 09:00: [id number] 00 Safety fall risk Safety Resolve 2019-07-17 Mercedez factor d 5-15 10:35:00 Ingrahm present 09:00: [id number] 00 Safety risk for Safety Resolve 2019-07-17 Mercedez hospitaliza d 5-15 10:35:00 Ingrahm tion 09:00: [id number] 00 Medication potential Meds Resolve 2019-03-27 Mercedez clinically d 5-15 09:15:00 Ingrahm significant 09:00: [id number] medication 00 issue Integument surgical Integument Resolve 2019-05-20 Mercedez wound d 7-12 11:15:00 Ingrahm present 10:00: [id number] 00 Nutrition enteral Nutrition Resolve 2019-06-26 Mercedez therapy d 7-12 10:35:00 Ingrahm 10:00: [id number] 00 Respiratory dyspnea Respirator Resolve 2019-08-07 Leanna present y d 06-26 10:25:00 Regeczi 10:35: [id number] 00 Respiratory smoker Respirator Resolve 2019-07-01 Leanna y d 06-26 10:15:00 Regeczi 10:35: [id number] 00 Endo/Han anti-coagul Endo/Han Resolve 2019-07-23 Leanna ation d 06-26 10:15:00 Regeczi therapy 10:35: [id number] 00 Elimination urinary Eliminatio Resolve 2019-07-23 Leanna incontinenc n d 06-26 10:15:00 Regeczi e 10:35: [id number] 00 Elimination nausea/vomi Eliminatio Resolve 2019-07-01 Leanna serranog n d 06-26 10:15:00 Regeczi 10:35: [id number] 00 Integument surgical Integument Resolve 2019-07-23 Mercedez wound d 9-11 10:15:00 Ingrahm present 10:15: [id number] 00 Nutrition enteral Nutrition Resolve 2019-07-23 Mercedez therapy d 07-01 10:15:00 Ingrahm 10:15: [id number] 00 Respiratory smoker Respirator Resolve 2019-07-16 Leanna y d 07-16 10:05:00 Regeczi 10:05: [id number] 00 Elimination diarrhea Eliminatio Resolve 2019-07-23 Leanna n d 07-17 10:15:00 Regeczi 10:35: [id number] 00 Cardio hypertensio Cardiovasc Resolve 2018-102019-07-30 Leanna olivares 0 10:00:00 Regeczi 10:15: [id number] 00 Safety risk for Safety Resolve 2018-102019-07-23 Leanna hospitaliza d 0-03 10:15:00 Regeczi tion 10:15: [id number] 00 24 Hr Diet knowledge/s NT: 24Hr Resolve 2018-102019-07-23 Wen kill Diet d 0-03 15:00:00 Willet deficit - 15:00: [id number] pt 00 Nutritional eating NT: Resolve 2018-102019-07-23 Wen Barrier difficultie Barriers d 0-03 15:00:00 Willet s present 15:00: [id number] Safety risk for Safety Resolve 2018-102019-08-07 Roseline hospitaliza d 0-04 10:25:00 [place] tion 14:00: [id number] 00 Social financial MURIEL: Active 2018-10 Ros[facility] Services resource Social 0-04 [place] deficit Services 14:00: [id number] 00 Social support MURIEL: Active 2018-10 [facility] Services deficit Social 0-04 [place] Services 14:00: [id number] 00 Social knowledge/s MURIEL: Active 2018-10 [facility] Services kill Social 0-04 [place] deficit - Services 14:00: [id number] pt 00 Social financial MURIEL: Unknown 2018-10 [facility]ez Services resource Social 0-10 Ingrahm deficit Services 15:00: [id number] 00 Social knowledge/s MURIEL: Unknown 2018-10 [facility] Services kill Social 0-10 Ingrahm deficit - Services 15:00: [id number] pt 00 Respiratory lung sounds Respirator Resolve 2018-102019-08-07 Leanna deficit y d 0-18 10:25:00 Regeczi 10:25: [id number] 00 Respiratory dyspnea Respirator Resolve 2018-102019-10-23 Mercedez present y d 10-28 10:15:00 Ingrahm 11:00: [id number] 00 Integument surgical Integument Resolve 2018-102019-09-11 Mercedez wound d 10-28 09:50:00 Ingrahm present 11:00: [id number] 00 Nutrition enteral Nutrition Resolve 2018-102019-09-11 Mercedez therapy d 10-28 09:50:00 Ingrahm 11:00: [id number] 00 Elimination urinary Eliminatio Resolve 2018-102019-09-11 Mercedez incontinenc n d 10-28 09:50:00 Ingrahm e 11:00: [id number] 00 Safety fall risk Safety Resolve 2018-102019-09-11 Mercedez factor d 10-28 09:50:00 Ingrahm present 11:00: [id number] 00 Safety risk for Safety Resolve 2018-102019-09-23 Mercedez hospitaliza d 10-28 11:10:00 Ingrahm tion 11:00: [id number] 00 Safety risk for Safety Unknown 2018-10 Mercedez hospitaliza 11-24 Ingrahm tion 15:00: [id number] 00 Cardio hypertensio Cardiovasc Resolve 2019-11-25 Leanna n ular d 10-23 11:10:00 Regeczi 10:15: [id number] 00 Elimination urinary Eliminatio Resolve 2019-11-05 Leanna incontinenc n d 10-23 10:23:00 Regeczi e 10:15: [id number] 00 Elimination constipatio Eliminatio Resolve 2019-11-05 Leanna n n d 10-23 10:23:00 Regeczi 10:15: [id number] 00 Integument surgical Integument Resolve 2019-11-19 Mercedez wound d 10-28 10:50:00 Ingrahm present 10:50: [id number] 00 Nutrition enteral Nutrition Resolve 2019-11-25 Mercedez therapy d 10-28 11:10:00 Ingrahm 10:50: [id number] 00 Elimination UTI within Eliminatio Resolve 2019-11-05 Mercedez past 14 n d 10-28 10:23:00 Ingrahm days 10:50: [id number] 00 Activity self-care Activity Resolve 2019-11-05 Mercedez deficit d 10-28 10:23:00 Ingrahm 10:50: [id number] 00 Safety fall risk Safety Resolve 2019-11-05 Mercedez factor d 10-28 10:23:00 Ingrahm present 10:50: [id number] 00 Safety risk for Safety Resolve 2019-11-05 Mercedez hospitaliza d 10-28 10:23:00 Ingrahm tion 10:50: [id number] 00 Safety risk for Safety Active Roseline appiahiza 2-12 [place] tion 11:00: [id number] 00 Nutrition enteral Nutrition Active [facility] 3[facility] 08[facility]: [id number] 00 Allergies, Adverse Reactions, Alerts Allergy Allergy Status Severity Reaction(s) Onset Inactive Treating Comments Name Type Date Date Clinician latex Base Active Unknown Hives Mercedez Ingredient 07-07 [facility] [id number] amoxicillin Base Active Unknown Anaphylaxis [facility]redient 07[facility] [id number] bee venom Base Active Unknown Anaphylaxis [facility] protein [facility]redient 07[facility]07 [facility] [id number] Botox Medication Active Unknown Anaphylaxis Mercedez Name ID 07-07 [facility] [id number] contrast Unknown Active Unknown Anaphylaxis Mercedez dye 07-07 [facility] [id number] Penicillins Allergen Active Unknown Anaphylaxis Mercedez Group 07-07 [facility] [id number] shellfish Base Active Unknown Anaphylaxis Mercedez derived Ingredient 07-07 [facility] [id number] adhesive Base Active Unknown Hives Mercedez tape Ingredient 07-07 [facility] [id number] nsaids Unknown Active Unknown stomach issues Mercedez 07-07 [facility] [id number] oxycodone Base Active Unknown swelling Mercedez Ingredient 07-07 [facility] [id number] Betadine Medication Active Unknown Rash Mercedez Name ID 07-07 [facility] [id number] Hibiclens Medication Active Unknown Rash Mercedez Name ID 07-07 [facility] [id number] evironmenta Unknown Active Unknown hay fever, Rea l/seasonal watery eye, 07-07 Guidelli itching, [id number] sneeze, congestion povidone-io Base Active Unknown itching Rea dine Ingredient 07-07 Guidelli [id number] Iodine and Allergen Active Unknown Anaphylaxis Rea Iodide Group 07-07 Guidelli Containing [id number] Products albumin Base Active Unknown Anaphylaxis Rea colloid, Ingredient 07-07 Guidelli human [id number] fentanyl Base Active Unknown hallucinations Rea Ingredient 07-07 Guidelli [id number] Medications Ordered Filled Start Stop Current Ordering [...] l 350 mg l 350 mg 07-07 04- Tashia FINCH tablet tablet e 0.9% normal 0.9% normal 2019- No Blegen Unknown Unknown saline saline 07-20 02-04 Tashia FINCH 1000ml with 1000ml with e [...] Unknown l 350 mg l 350 mg - Tashia FINCH tablet tablet e metoprolol metoprolol [...] ne 4 mg ne 4 mg 3-05 MD,Douglas tablet tablet diphenhydrA diphenhydrA 2018- No Blegen Unknown Unknown MINE 50 mg MINE 50 mg 10-26 09-27 Tashia FINCH capsule capsule e ondansetron [...] Unknown Unknown 60 mg 60 mg 4-24 Prosper FINCHw tablet,exte tablet,exte nded nded release release magnesium [...] 2018-10 No Blegen Unknown Unknown Respimat Respimat 2-05 Tashia [...] e eye drops eye drops ciprofloxac ciprofloxac 2020-0 2020- Yes Blegen Unknown Unknown in 500 mg in 500 mg 10-28 Tashia FINCH tablet tablet e azelastine azelastine 2019-0 Yes Blegen Unknown Unknown 137 mcg 137 mcg -10 Tashia FINCH (0.1 %) (0.1 %) e nasal spray nasal spray aerosol aerosol 0.9% normal 0.9% normal 2019-0 Yes Blegen Unknown Unknown saline saline 2-04 [...] Blegen Unknown Unknown Lock Flush Lock Flush 2- Tashia FINCH (Porcine) (Porcine) e (PF) 100 (PF) 100 unit/mL unit/mL intravenous intravenous syringe syringe Vital Signs Vital Name Observation Time Observation Value Comments SYSTOLIC mm[Hg] 2019-12-25 18:10:44 182 mm[Hg] mm[Hg] Method: Sit SYSTOLIC mm[Hg] 2018-11-27 18:04:11 142 mm[Hg] mm[Hg] Method: Stand SYSTOLIC mm[Hg] 2019-06-27 18:07:43 122 mm[Hg] mm[Hg] Method: Lie DIASTOLIC mm[Hg] 2019-12-25 18:10:44 96 mm[Hg] mm[Hg] Method: Sit DIASTOLIC mm[Hg] 2018-11-27 18:04:11 84 mm[Hg] mm[Hg] Method: Stand DIASTOLIC mm[Hg] 2019-06-27 18:07:43 50 mm[Hg] mm[Hg] Method: Lie PULSE 2019-12-25 18:10:44 79 /min /min RESP RATE 2019-12-25 18:10:44 16 /min /min TEMP 2019-12-25 18:10:44 98.4 [degF] Procedures This patient has no known procedures. Results This patient has no known results.
--- OUTSIDE RECORDS SUMMARY | 2020-01-19 08:24 | XMS REPORT ---
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/o artery w/o ang pctrs ang pctrs Encounter Encounter Diagnosis Active Mercedez for for 07-07 Ingrahm attention attention [id number] to to gastrostomy gastrostomy Gastro-esop Gastro-esop Diagnosis Active Mercedez hageal hageal 07-07 Ingrahm reflux reflux [id number] disease disease without without esophagitis esophagitis Other Other Diagnosis Active Mercedez specified specified 07-07 Ingrahm arthritis, arthritis, [id number] unspecified unspecified site site Essential Essential Diagnosis Active Mercedez (primary) (primary) 07-07 Ingrahm hypertensio hypertensio [id number] 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) Ingrahm use of use of [id number] anticoagula anticoagula nts nts Nicotine Nicotine Diagnosis Active Mercedez dependence, dependence, Ingrahm cigarettes, cigarettes, [id number] uncomplicat uncomplicat ed ed Personal Personal Diagnosis Active Mercedez history of history of Ingrahm malignant malignant [id number] neoplasm of neoplasm of breast breast Prsnl hx of Prsnl hx of Diagnosis Active Mercedez TIA (TIA), TIA (TIA), Ingrahm and cereb and cereb [id number] infrc w/o infrc w/o resid resid deficits deficits Pain frequent Pain Mgmt Resolve 2018-11-26 Ana pain d 9 16:15:00 [place]bert 13:30: [id number] 00 Pain severe pain Pain Mgmt Resolve 2018-11-26 Ana d 9 16:15:00 [place]bert 13:30: [id number] 00 Endo/Han anti-coagul Endo/Han Resolve 2019-02-06 Ana ation d 07-07 11:15:00 [place]bert therapy 13:30: [id number] 00 Integument surgical Integument Resolve 2018-08-05 Rea wound d 07-07 13:35:00 Guidelli present 13:30: [id number] 00 Nutrition nutritional Nutrition Resolve 2019-01-02 Ana restriction d 07-07 10:00:00 [place]ulbert s 13:30: [id number] 00 Nutrition changing Nutrition Resolve 2019-01-02 Ana weight/appe d 07-07 10:00:00 Hulbert tite 13:30: [id number] 00 Nutrition nutritional Nutrition Resolve 2019-01-02 Ana risk d 07-07 10:00:00 [place]ulbert 13:30: [id number] 00 Nutrition enteral Nutrition Resolve 2019-02-06 Ana therapy d 07-07 11:15:00 [place]ulbert 13:30: [id number] 00 Safety structural Safety Resolve 2019-02-06 Ana barriers d 07-07 11:15:00 [place] present 13:30: [id number] 00 Safety fall risk Safety Resolve 2019-02-06 Ana factor d 07-07 11:15:00 [place] present 13:30: [id number] 00 Safety risk for Safety Resolve 2019-02-06 Ana hospitaliza d 07-07 11:15:00 [place]bert tion 13:30: [id number] 00 Medication potential Meds Resolve 2019-02-06 Ana clinically d 07-07 11:15:00 Hulbert significant 13:30: [id number] medication 00 issue Musculoskel requires Musculoske Resolve 2019-02-06 Ana etal human letal d 07-07 11:15:00 Hulbert assist to 13:30: [id number] leave home 00 IV IV present IV Resolve 2019-02-06 Rea d 9-30 11:15:00 Lissette [id number] Respiratory dyspnea Respirator Resolve 2017-102019-02-06 Mercedez present y d 0-16 11:15:00 Ingrahm 13:35: [id number] 00 Neuro confusion Neuro/Emot Unknown 2017-10 Mercedez present ion 0-16 Ingrahm 13:35: [id number] 00 Neuro depressive Neuro/Emot Unknown 2017-10 Mercedez feelings ion 0-16 Ingrahm present 13:35: [id number] 00 Safety can be left Safety Resolve 2017-102019-02-06 Mercedez alone for d 0-18 11:15:00 Ingrahm only short 08:10: [id number] periods 00 Integument surgical Integument Resolve 2017-102018-10-30 Shila wound d 1-15 10:10:00 Brian present 08:55: [id number] 00 Elimination GI drain or Eliminatio Resolve 2017-102019-02-06 Shila tube n d 1-15 11:15:00 Brian present 08:55: [id number] 00 Neuro anxiety Neuro/Emot Resolve 2017-102019-02-06 Shila present ion d 1-15 11:15:00 Brian 08:55: [id number] 00 Medication injectable Meds Resolve 2017-102019-02-06 Shila med d 1-15 11:15:00 Brian assistance 08:55: [id number] required 00 Safety fire risk Safety Resolve 2017-102019-02-06 Shila present d 1-15 11:15:00 Brian 13:00: [id number] 00 Elimination urinary Eliminatio Resolve 2019-02-06 Mercedez incontinenc n d - 11:15:00 Ingrahm e 14:20: [id number] 00 Pain frequent Pain Mgmt Resolve 2019-02-06 Mercedez pain d 2-15 11:15:00 Ingrahm 10:15: [id number] 00 Safety risk for Safety Unknown Leanna hospitaliza 02-06 Regeczi tion 15:45: [id number] 00 Respiratory lung sounds Respirator Resolve 2019-04-03 Leanna deficit y d 02-10 10:01:00 Regeczi 13:20: [id number] 00 Respiratory smoker Respirator Resolve 2019-04-03 Leanna y d 4-29 10:01:00 Regeczi 12:10: [id number] 00 Respiratory dyspnea Respirator Resolve 2019-06-05 Mercedez present y d 5-15 10:30:00 Ingrahm 09:00: [id number] 00 Integument surgical Integument Resolve 2019-03-27 Mercedez wound d 5-15 09:15:00 Ingrahm present 09:00: [id number] 00 Nutrition enteral Nutrition Resolve 2019-03-27 Mercedez therapy d -15 09:15:00 Ingrahm 09:00: [id number] 00 Elimination urinary Eliminatio Resolve 2019-04-10 Mercedez incontinenc n d 15 09:30:00 Ingrahm e 09:00: [id number] 00 Neuro confusion Neuro/Emot Resolve 2019-11-25 Mercedez present ion d 15 11:10:00 Ingrahm 09:00: [id number] 00 Neuro anxiety Neuro/Emot Resolve 2019-11-25 Mercedez present ion d 515 11:10:00 Ingrahm 09:00: [id number] 00 Neuro depressive Neuro/Emot Resolve 2019-11-25 Mercedez feelings ion d 15 11:10:00 Ingrahm present 09:00: [id number] 00 Neuro impaired Neuro/Emot Resolve 2019-11-25 Mercedez decision-ma ion d 15 11:10:00 [facility] sonali 09:00: [id number] 00 Activity self-care Activity Resolve 2019-05-20 Mercedez deficit d -15 11:15:00 Ingrahm 09:00: [id number] 00 Safety fall risk Safety Resolve 2019-07-17 Mercedez factor d 5-15 10:35:00 Ingrahm present 09:00: [id number] 00 Safety risk for Safety Resolve 2019-07-17 Mercedez hospitaliza d 5-15 10:35:00 Ingrahm tion 09:00: [id number] 00 Medication potential Meds Resolve 2019-03-27 Mercedez clinically d 5-15 09:15:00 Ingrahm significant 09:00: [id number] medication 00 issue Integument surgical Integument Resolve 2019-05-20 Mercedez wound d 7-12 11:15:00 Ingrahm present 10:00: [id number] 00 Nutrition enteral Nutrition Resolve 2019-06-26 Mercedez therapy d 7-12 10:35:00 Ingrahm 10:00: [id number] 00 Respiratory dyspnea Respirator Resolve 2019-08-07 Leanna present y d 06-26 10:25:00 Regeczi 10:35: [id number] 00 Respiratory smoker Respirator Resolve 2019-07-01 Leanna y d 06-26 10:15:00 Regeczi 10:35: [id number] 00 Endo/Han anti-coagul Endo/Han Resolve 2019-07-23 Leanna ation d 06-26 10:15:00 Regeczi therapy 10:35: [id number] 00 Elimination urinary Eliminatio Resolve 2019-07-23 Leanna incontinenc n d 06-26 10:15:00 Regeczi e 10:35: [id number] 00 Elimination nausea/vomi Eliminatio Resolve 2019-07-01 Leanna serranog n d 06-26 10:15:00 Regeczi 10:35: [id number] 00 Integument surgical Integument Resolve 2019-07-23 Mercedez wound d 9-11 10:15:00 Ingrahm present 10:15: [id number] 00 Nutrition enteral Nutrition Resolve 2019-07-23 Mercedez therapy d 07-01 10:15:00 Ingrahm 10:15: [id number] 00 Respiratory smoker Respirator Resolve 2019-07-16 Leanna y d 07-16 10:05:00 Regeczi 10:05: [id number] 00 Elimination diarrhea Eliminatio Resolve 2019-07-23 Leanna n d 07-17 10:15:00 Regeczi 10:35: [id number] 00 Cardio hypertensio Cardiovasc Resolve 2018-102019-07-30 Leanna olivares 0 10:00:00 Regeczi 10:15: [id number] 00 Safety risk for Safety Resolve 2018-102019-07-23 Leanna hospitaliza d 0-03 10:15:00 Regeczi tion 10:15: [id number] 00 24 Hr Diet knowledge/s NT: 24Hr Resolve 2018-102019-07-23 Wen kill Diet d 0-03 15:00:00 [place] deficit - 15:00: [id number] pt 00 Nutritional eating NT: Resolve 2018-102019-07-23 Wen Barrier difficultie Barriers d 0-03 15:00:00 [place] s present 15:00: [id number] Safety risk for Safety Resolve 2018-102019-08-07 Roseline hospitaliza d 0-04 10:25:00 [place] tion 14:00: [id number] 00 Social financial MURIEL: Active 2018-10 Roseline Services resource Social 0-04 [place] deficit Services 14:00: [id number] 00 Social support MURIEL: Active 2018-10 [facility] Services deficit Social 0-04 [place] Services 14:00: [id number] 00 Social knowledge/s MURIEL: Active 2018-10 [facility] Services kill Social 0-04 [place] deficit - Services 14:00: [id number] pt 00 Social financial MURIEL: Unknown 2018-10 [facility]ez Services resource Social 0-10 Ingrahm deficit Services 15:00: [id number] 00 Social knowledge/s MURIEL: Unknown 2018-10 Mer[facility] Services kill Social 0-10 Ingrahm deficit - Services 15:00: [id number] pt 00 Respiratory lung sounds Respirator Resolve 2018-102019-08-07 Leanna deficit y d 0-18 10:25:00 Regeczi 10:25: [id number] 00 Respiratory dyspnea Respirator Resolve 2018-102019-10-23 Mercedez present y d 10-28 10:15:00 Ingrahm 11:00: [id number] 00 Integument surgical Integument Resolve 2018-102019-09-11 Mercedez wound d 10-28 09:50:00 Ingrahm present 11:00: [id number] 00 Nutrition enteral Nutrition Resolve 2018-102019-09-11 Mercedez therapy d 10-28 09:50:00 Ingrahm 11:00: [id number] 00 Elimination urinary Eliminatio Resolve 2018-102019-09-11 Mercedez incontinenc n d 10-28 09:50:00 Ingrahm e 11:00: [id number] 00 Safety fall risk Safety Resolve 2018-102019-09-11 Mercedez factor d 10-28 09:50:00 Ingrahm present 11:00: [id number] 00 Safety risk for Safety Resolve 2018-102019-09-23 Mercedez hospitaliza d 10-28 11:10:00 Ingrahm tion 11:00: [id number] 00 Safety risk for Safety Unknown 2018-10 Mercedez hospitaliza 11-24 Ingrahm tion 15:00: [id number] 00 Cardio hypertensio Cardiovasc Resolve 2019-11-25 Leanna n ular d 10-23 11:10:00 Regeczi 10:15: [id number] 00 Elimination urinary Eliminatio Resolve 2019-11-05 Leanna incontinenc n d 10-23 10:23:00 Regeczi e 10:15: [id number] 00 Elimination constipatio Eliminatio Resolve 2019-11-05 Leanna n n d 10-23 10:23:00 Regeczi 10:15: [id number] 00 Integument surgical Integument Resolve 2019-11-19 Mercedez wound d 10-28 10:50:00 Ingrahm present 10:50: [id number] 00 Nutrition enteral Nutrition Resolve 2019-11-25 Mercedez therapy d 10-28 11:10:00 Ingrahm 10:50: [id number] 00 Elimination UTI within Eliminatio Resolve 2019-11-05 Mercedez past 14 n d 10-28 10:23:00 Ingrahm days 10:50: [id number] 00 Activity self-care Activity Resolve 2019-11-05 Mercedez deficit d 10-28 10:23:00 Ingrahm 10:50: [id number] 00 Safety fall risk Safety Resolve 2019-11-05 Mercedez factor d 10-28 10:23:00 Ingrahm present 10:50: [id number] 00 Safety risk for Safety Resolve 2019-11-05 Mercedez hospitaliza d 10-28 10:23:00 Ingrahm tion 10:50: [id number] 00 Safety risk for Safety Active Roseline appiahiza 2-12 [place] tion 11:00: [id number] 00 Nutrition enteral Nutrition [facility]: [id number] 00 Allergies, Adverse Reactions, Alerts Allergy Allergy Status Severity Reaction(s) Onset Inactive Treating Comments Name Type Date Date Clinician latex Base Active Unknown Hives Mercedez Ingredient 07-07 [facility] [id number] amoxicillin Base Active Unknown Anaphylaxis [facility] [id number] bee venom Base Active Unknown Anaphylaxis [facility] [id number] Botox Medication Active Unknown Anaphylaxis Mercedez Name ID 07-07 [facility] [id number] contrast Unknown Active Unknown Anaphylaxis Mercedez dye 07-07 [facility] [id number] Penicillins Allergen Active Unknown Anaphylaxis Mer[facility]ez Group 07-07 [facility] [id number] shellfish Base Active Unknown Anaphylaxis Mercedez derived Ingredient 07-07 [facility] [id number] adhesive Base Active Unknown Hives Mercedez tape Ingredient 07-07 [facility] [id number] nsaids Unknown Active Unknown stomach issues Mercedez 07-07 [facility] [id number] oxycodone Base Active Unknown swelling Mercedez Ingredient 07-07 [facility] [id number] Betadine Medication Active Unknown Rash Mercedez Name ID 07-07 [facility] [id number] Hibiclens Medication Active Unknown Rash Mercedez Name ID 07-07 [facility] [id number] evironmenta Unknown Active Unknown hay fever, Rea l/seasonal watery eye, 07-07 Guidelli itching, [id number] sneeze, congestion povidone-io Base Active Unknown itching Rea dine Ingredient 07-07 Guidelli [id number] Iodine and Allergen Active Unknown Anaphylaxis Rea Iodide Group 07-07 Guidelli Containing [id number] Products albumin Base Active Unknown Anaphylaxis Rea colloid, Ingredient 07-07 Guidelli human [id number] fentanyl Base Active Unknown hallucinations Rea Ingredient 07-07 Guidelli [id number] Medications Ordered Filled Start Stop Current Ordering [...]
--- OUTSIDE RECORDS SUMMARY | 2020-01-19 08:24 | XMS REPORT ---
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 w/o artery w/o ang pctrs ang pctrs Encounter Encounter Diagnosis Active Mercedez for for 07-07 Ingrahm attention attention [id number] to to gastrostomy gastrostomy Gastro-esop Gastro-esop Diagnosis Active Mercedez hageal hageal 07-07 Ingrahm reflux reflux [id number] disease disease without without esophagitis esophagitis Other Other Diagnosis Active Mercedez specified specified 07-07 Ingrahm arthritis, arthritis, [id number] unspecified unspecified site site Essential Essential Diagnosis Active Mercedez (primary) (primary) 07-07 Ingrahm hypertensio hypertensio [id number] n n senior care senior care Diagnosis Active Mercedez (current) (current) Ingrahm use of use of [id number] anticoagula anticoagula nts nts Nicotine Nicotine Diagnosis Active Mercedez dependence, dependence, Ingrahm cigarettes, cigarettes, [id number] uncomplicat uncomplicat ed ed Personal Personal Diagnosis Active Mercedez history of history of Ingrahm malignant malignant [id number] neoplasm of neoplasm of breast breast Prsnl hx of Prsnl hx of Diagnosis Active Mercedez TIA (TIA), TIA (TIA), Ingrahm and cereb and cereb [id number] infrc w/o infrc w/o resid resid deficits deficits Pain frequent Pain Mgmt Resolve 2018-11-26 Ana pain d 9 16:15:00 [place] 13:30: [id number] 00 Pain severe pain Pain Mgmt Resolve 2018-11-26 Ana d 9 16:15:00 [place] 13:30: [id number] 00 Endo/Han anti-coagul Endo/Han Resolve 2019-02-06 Ana ation d 07-07 11:15:00 [place] therapy 13:30: [id number] 00 Integument surgical Integument Resolve 2018-08-05 Rea wound d 07-07 13:35:00 [place] present 13:30: [id number] 00 Nutrition nutritional Nutrition Resolve 2019-01-02 Ana restriction d 07-07 10:00:00 [place] s 13:30: [id number] 00 Nutrition changing Nutrition Resolve 2019-01-02 Ana weight/appe d 07-07 10:00:00 [place] tite 13:30: [id number] 00 Nutrition nutritional Nutrition Resolve 2019-01-02 Ana risk d 07-07 10:00:00 [place] 13:30: [id number] 00 Nutrition enteral Nutrition Resolve 2019-02-06 Ana therapy d 07-07 11:15:00 [place] 13:30: [id number] 00 Safety structural Safety Resolve 2019-02-06 Ana barriers d 07-07 11:15:00 [place] present 13:30: [id number] 00 Safety fall risk Safety Resolve 2019-02-06 Ana factor d 07-07 11:15:00 [place] present 13:30: [id number] 00 Safety risk for Safety Resolve 2019-02-06 Ana hospitaliza d 07-07 11:15:00 [place] tion 13:30: [id number] 00 Medication potential Meds Resolve 2019-02-06 Ana clinically d 07-07 11:15:00 [place] significant 13:30: [id number] medication 00 issue Musculoskel requires Musculoske Resolve 2019-02-06 Ana etal human letal d 07-07 11:15:00 [place] assist to 13:30: [id number] leave home 00 IV IV present IV Resolve 2019-02-06 Rea d 9-30 11:15:00 Lissette [id number] Respiratory dyspnea Respirator Resolve 2017-102019-02-06 Mercedez present y d 0-16 11:15:00 [place] 13:35: [id number] 00 Neuro confusion Neuro/Emot Unknown 2017-10 Mercedez present ion 0-16 [place] 13:35: [id number] 00 Neuro depressive Neuro/Emot Unknown 2017-10 Mercedez feelings ion 0-16 In[place]hm present 13:35: [id number] 00 Safety can be left Safety Resolve 2017-102019-02-06 Mercedez alone for d 0-18 11:15:00 Ingrahm only short 08:10: [id number] periods 00 Integument surgical Integument Resolve 2017-102018-10-30 Shila wound d 1-15 10:10:00 Brian present 08:55: [id number] 00 Elimination GI drain or Eliminatio Resolve 2017-102019-02-06 Shila tube n d 1-15 11:15:00 Brian present 08:55: [id number] 00 Neuro anxiety Neuro/Emot Resolve 2017-102019-02-06 Shila present ion d 1-15 11:15:00 Brian 08:55: [id number] 00 Medication injectable Meds Resolve 2017-102019-02-06 Shila med d 1-15 11:15:00 Brian assistance 08:55: [id number] required 00 Safety fire risk Safety Resolve 2017-102019-02-06 Shila present d 1-15 11:15:00 Brian 13:00: [id number] 00 Elimination urinary Eliminatio Resolve 2019-02-06 Mercedez incontinenc n d - 11:15:00 Ingrahm e 14:20: [id number] 00 Pain frequent Pain Mgmt Resolve 2019-02-06 Mercedez pain d 2-15 11:15:00 Ingrahm 10:15: [id number] 00 Safety risk for Safety Unknown Leanna hospitaliza 02-06 Regeczi tion 15:45: [id number] 00 Respiratory lung sounds Respirator Resolve 2019-04-03 Leanna deficit y d 02-10 10:01:00 Regeczi 13:20: [id number] 00 Respiratory smoker Respirator Resolve 2019-04-03 Leanna y d 4-29 10:01:00 Regeczi 12:10: [id number] 00 Respiratory dyspnea Respirator Resolve 2019-06-05 Mercedez present y d 5-15 10:30:00 Ingra[place] 09:00: [id number] 00 Integument surgical Integument Resolve 2019-03-27 Mercedez wound d 5-15 09:15:00 Ingrahm present 09:00: [id number] 00 Nutrition enteral Nutrition Resolve 2019-03-27 Mercedez therapy d -15 09:15:00 Ingra[place] 09:00: [id number] 00 Elimination urinary Eliminatio Resolve 2019-04-10 Mercedez incontinenc n d 15 09:30:00 Ingrahm e 09:00: [id number] 00 Neuro confusion Neuro/Emot Resolve 2019-11-25 Mercedez present ion d 15 11:10:00 Ingra[place] 09:00: [id number] 00 Neuro anxiety Neuro/Emot Resolve 2019-11-25 Mercedez present ion d 515 11:10:00 Ingra[place] 09:00: [id number] 00 Neuro depressive Neuro/Emot Resolve 2019-11-25 Mercedez feelings ion d 15 11:10:00 Ingrahm present 09:00: [id number] 00 Neuro impaired Neuro/Emot Resolve 2019-11-25 Mercedez decision-ma ion d 15 11:10:00 [facility] sonali 09:00: [id number] 00 Activity self-care Activity Resolve 2019-05-20 Mercedez deficit d -15 11:15:00 [place] 09:00: [id number] 00 Safety fall risk Safety Resolve 2019-07-17 Mercedez factor d 5-15 10:35:00 Ingrahm present 09:00: [id number] 00 Safety risk for Safety Resolve 2019-07-17 Mercedez hospitaliza d 5-15 10:35:00 Ingrahm tion 09:00: [id number] 00 Medication potential Meds Resolve 2019-03-27 Mercedez clinically d 5-15 09:15:00 Ingrahm significant 09:00: [id number] medication 00 issue Integument surgical Integument Resolve 2019-05-20 Mercedez wound d 7-12 11:15:00 Ingrahm present 10:00: [id number] 00 Nutrition enteral Nutrition Resolve 2019-06-26 Mercedez therapy d 7-12 10:35:00 Ingrahm 10:00: [id number] 00 Respiratory dyspnea Respirator Resolve 2019-08-07 Leanna present y d 06-26 10:25:00 Regeczi 10:35: [id number] 00 Respiratory smoker Respirator Resolve 2019-07-01 Leanna y d 06-26 10:15:00 Regeczi 10:35: [id number] 00 Endo/Han anti-coagul Endo/Han Resolve 2019-07-23 Leanna ation d 06-26 10:15:00 Regeczi therapy 10:35: [id number] 00 Elimination urinary Eliminatio Resolve 2019-07-23 Leanna incontinenc n d 06-26 10:15:00 Regeczi e 10:35: [id number] 00 Elimination nausea/vomi Eliminatio Resolve 2019-07-01 Leanna serranog n d 06-26 10:15:00 Regeczi 10:35: [id number] 00 Integument surgical Integument Resolve 2019-07-23 Mercedez wound d 9-11 10:15:00 Ingrahm present 10:15: [id number] 00 Nutrition enteral Nutrition Resolve 2019-07-23 Mercedez therapy d 07-01 10:15:00 Ingrahm 10:15: [id number] 00 Respiratory smoker Respirator Resolve 2019-07-16 Leanna y d 07-16 10:05:00 Regeczi 10:05: [id number] 00 Elimination diarrhea Eliminatio Resolve 2019-07-23 Leanna n d 07-17 10:15:00 Regeczi 10:35: [id number] 00 Cardio hypertensio Cardiovasc Resolve 2018-102019-07-30 Leanna olivares 0 10:00:00 Regeczi 10:15: [id number] 00 Safety risk for Safety Resolve 2018-102019-07-23 Leanna hospitaliza d 0-03 10:15:00 Regeczi tion 10:15: [id number] 00 24 Hr Diet knowledge/s NT: 24Hr Resolve 2018-102019-07-23 Wen kill Diet d 0-03 15:00:00 [place] deficit - 15:00: [id number] pt 00 Nutritional eating NT: Resolve 2018-102019-07-23 Wen Barrier difficultie Barriers d 0-03 15:00:00 [place] s present 15:00: [id number] Safety risk for Safety Resolve 2018-102019-08-07 Roseline hospitaliza d 0-04 10:25:00 [place] tion 14:00: [id number] 00 Social financial MURIEL: Active 2018-10 [facility] Services resource Social 0-04 [place] deficit Services 14:00: [id number] 00 Social support MURIEL: Active 2018-10 [facility] deficit Social 0-04 [place] Services 14:00: [id number] 00 Social knowledge/s MURIEL: Active 2018-10 [facility] kill Social 0-04 [place] deficit - Services 14:00: [id number] pt 00 Social financial MURIEL: Unknown 2018-10 [facility] Services resource Social 0-10 Ingrahm deficit Services 15:00: [id number] 00 Social knowledge/s MURIEL: Unknown 2018-10 [facility] Services kill Social 0-10 Ingrahm deficit - Services 15:00: [id number] pt 00 Respiratory lung sounds Respirator Resolve 2018-102019-08-07 Leanna deficit y d 0-18 10:25:00 Regeczi 10:25: [id number] 00 Respiratory dyspnea Respirator Resolve 2018-102019-10-23 Mercedez present y d 10-28 10:15:00 In[place] 11:00: [id number] 00 Integument surgical Integument Resolve 2018-102019-09-11 Mercedez wound d 10-28 09:50:00 Ingrahm present 11:00: [id number] 00 Nutrition enteral Nutrition Resolve 2018-102019-09-11 Mercedez therapy d 10-28 09:50:00 In[place] 11:00: [id number] 00 Elimination urinary Eliminatio Resolve 2018-102019-09-11 Mercedez incontinenc n d 10-28 09:50:00 Ingrahm e 11:00: [id number] 00 Safety fall risk Safety Resolve 2018-102019-09-11 Mercedez factor d 10-28 09:50:00 Ingrahm present 11:00: [id number] 00 Safety risk for Safety Resolve 2018-102019-09-23 Mercedez hospitaliza d 10-28 11:10:00 Ingrahm tion 11:00: [id number] 00 Safety risk for Safety Unknown 2018-10 Mercedez hospitaliza 11-24 Ingrahm tion 15:00: [id number] 00 Cardio hypertensio Cardiovasc Resolve 2019-11-25 Leanna n ular d 10-23 11:10:00 Regeczi 10:15: [id number] 00 Elimination urinary Eliminatio Resolve 2019-11-05 Leanna incontinenc n d 10-23 10:23:00 Regeczi e 10:15: [id number] 00 Elimination constipatio Eliminatio Resolve 2019-11-05 Leanna n n d 10-23 10:23:00 Regeczi 10:15: [id number] 00 Integument surgical Integument Resolve 2019-11-19 Mercedez wound d 10-28 10:50:00 Ingrahm present 10:50: [id number] 00 Nutrition enteral Nutrition Resolve 2019-11-25 Mercedez therapy d 10-28 11:10:00 Ingrahm 10:50: [id number] 00 Elimination UTI within Eliminatio Resolve 2019-11-05 Mercedez past 14 n d 10-28 10:23:00 Ingrahm days 10:50: [id number] 00 Activity self-care Activity Resolve 2019-11-05 Mercedez deficit d 10-28 10:23:00 Ingrahm 10:50: [id number] 00 Safety fall risk Safety Resolve 2019-11-05 Mercedez factor d 10-28 10:23:00 Ingrahm present 10:50: [id number] 00 Safety risk for Safety Resolve 2019-11-05 Mercedez hospitaliza d 10-28 10:23:00 Ingrahm tion 10:50: [id number] 00 Safety risk for Safety Active Roseline hospitaliza 2-12 [place] tion 11:00: [id number] 00 Nutrition enteral Nutrition Unknown Mercedez therapy 3-05 Ingrahm 08:45: [id number] 00 Integument surgical Integument Active Mercedez wound 3-06 Ingrahm present 08:45: [id number] 00 Neuro depressive Neuro/Emot Active Mercedez feelings ion 3- Ingrahm present 08:45: [id number] 00 Neuro confusion Neuro/Emot Active 2019- Mercedez present ion 3-06 Ingrahm 08:45: [id number] 00 Neuro anxiety Neuro/Emot Active 2019- Mercedez present ion 3- Ingrahm 08:45: [id number] 00 Safety fall risk Safety Active Mercedez factor 3- Ingrahm present 08:45: [id number] 00 Medication potential Meds Active Mercedez clinically 12-24 Ingrahm significant 08:45: [id number] medication 00 issue Allergies, Adverse Reactions, Alerts Allergy Allergy Status Severity Reaction(s) Onset Inactive Treating Comments Name Type Date Date Clinician latex Base Active Unknown Hives Mer[facility] Ingredient 07-07 [facility] [id number] amoxicillin Base Active Unknown Anaphylaxis Mercedez Ingredient 07-07 [facility] [id number] bee venom Base Active Unknown Anaphylaxis Mercedez protein Ingredient 07-07 [facility] (honey bee) [id number] Botox Medication Active Unknown Anaphylaxis Mercedez Name ID 07-07 [facility] [id number] contrast Unknown Active Unknown Anaphylaxis Mercedez dye 07-07 [facility] [id number] Penicillins Allergen Active Unknown Anaphylaxis 2017- [facility] Group 07-07 Ingrm [id number] shellfish Base Active Unknown Anaphylaxis Mercedez derived Ingredient 07-07 [facility] [id number] adhesive Base Active Unknown Hives Mercedez tape Ingredient 07-07 [facility] [id number] nsaids Unknown Active Unknown stomach issues 2017- Mercedez 07-07 Ingrm [id number] oxycodone Base Active Unknown swelling Mercedez Ingredient 07-07 [facility] [id number] Betadine Medication Active Unknown Rash Mercedez Name ID 07-07 [facility] [id number] Hibiclens Medication Active Unknown Rash Mercedez Name ID 07-07 [facility] [id number] evironmenta Unknown Active Unknown hay fever, Rea l/seasonal watery eye, 07-07 Guidelli itching, [id number] sneeze, congestion povidone-io Base Active Unknown itching Rea dine Ingredient 07-07 Guidelli [id number] Iodine and Allergen Active Unknown Anaphylaxis Rea Iodide Group 07-07 Guidelli Containing [id number] Products albumin Base Active Unknown Anaphylaxis Rea colloid, Ingredient 07-07 Guidelli human [id number] fentanyl Base Active Unknown hallucinations Rea Ingredient 07-07 Guidelli [id number] Medications Ordered Filled Start Stop Current Ordering [...] Observation Time Observation Value Comments SYSTOLIC mm[Hg] 2019-12-29 18:10:48 172 mm[Hg] mm[Hg] Method: Sit SYSTOLIC mm[Hg] 2018-11-27 18:04:11 142 mm[Hg] mm[Hg] Method: Stand SYSTOLIC mm[Hg] 2019-06-27 18:07:43 122 mm[Hg] mm[Hg] Method: Lie DIASTOLIC mm[Hg] 2019-12-29 18:10:48 96 mm[Hg] mm[Hg] Method: Sit DIASTOLIC mm[Hg] 2018-11-27 18:04:11 84 mm[Hg] mm[Hg] Method: Stand DIASTOLIC mm[Hg] 2019-06-27 18:07:43 50 mm[Hg] mm[Hg] Method: Lie PULSE 2019-12-29 18:10:48 72 /min /min TEMP 2019-12-29 18:10:48 97.9 [degF] Procedures This patient has no known procedures. Results This patient has no known results.
--- OUTSIDE RECORDS SUMMARY | 2020-01-19 08:24 | XMS REPORT ---
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/o artery w/o ang pctrs ang pctrs Encounter Encounter Diagnosis Active Mercedez for for 07-07 Ingrahm attention attention [id number] to to gastrostomy gastrostomy Gastro-esop Gastro-esop Diagnosis Active Mercedez hageal hageal 07-07 Ingrahm reflux reflux [id number] disease disease without without esophagitis esophagitis Other Other Diagnosis Active Mercedez specified specified 07-07 Ingrahm arthritis, arthritis, [id number] unspecified unspecified site site Essential Essential Diagnosis Active Mercedez (primary) (primary) 07-07 Ingrahm hypertensio hypertensio 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) Ingrahm use of use of [id number] anticoagula anticoagula nts nts Nicotine Nicotine Diagnosis Active Mercedez dependence, dependence, Ingrahm cigarettes, cigarettes, [id number] uncomplicat uncomplicat ed ed Personal Personal Diagnosis Active Mercedez history of history of Ingrahm malignant malignant [id number] neoplasm of neoplasm of breast breast Prsnl hx of Prsnl hx of Diagnosis Active Mercedez TIA (TIA), TIA (TIA), Ingrahm and cereb and cereb [id number] infrc w/o infrc w/o resid resid deficits deficits Pain frequent Pain Mgmt Resolve 2018-11-26 Ana pain d 9 16:15:00 Valentine 13:30: [id number] 00 Pain severe pain Pain Mgmt Resolve 2018-11-26 Ana d 9 16:15:00 Valentine 13:30: [id number] 00 Endo/Han anti-coagul Endo/Han Resolve 2019-02-06 Ana ation d 07-07 11:15:00 Valentine therapy 13:30: [id number] 00 Integument surgical Integument Resolve 2018-08-05 Rea wound d 07-07 13:35:00 Guidelli present 13:30: [id number] 00 Nutrition nutritional Nutrition Resolve 2019-01-02 Ana restriction d 07-07 10:00:00 Valentine s 13:30: [id number] 00 Nutrition changing Nutrition Resolve 2019-01-02 Ana weight/appe d 07-07 10:00:00 Valentine tite 13:30: [id number] 00 Nutrition nutritional Nutrition Resolve 2019-01-02 Ana risk d 07-07 10:00:00 Valentine 13:30: [id number] 00 Nutrition enteral Nutrition Resolve 2019-02-06 Ana therapy d 07-07 11:15:00 Valentine 13:30: [id number] 00 Safety structural Safety Resolve 2019-02-06 Ana barriers d 07-07 11:15:00 Valentine present 13:30: [id number] 00 Safety fall risk Safety Resolve 2019-02-06 Ana factor d 07-07 11:15:00 Valentine present 13:30: [id number] 00 Safety risk for Safety Resolve 2019-02-06 Ana hospitaliza d 07-07 11:15:00 Valentine tion 13:30: [id number] 00 Medication potential Meds Resolve 2019-02-06 Ana clinically d 07-07 11:15:00 Valentine significant 13:30: [id number] medication 00 issue Musculoskel requires Musculoske Resolve 2019-02-06 Ana etal human letal d 07-07 11:15:00 Valentine assist to 13:30: [id number] leave home 00 IV IV present IV Resolve 2019-02-06 Rea d 9-30 11:15:00 Lissette [id number] Respiratory dyspnea Respirator Resolve 2017-102019-02-06 Mercedez present y d 0-16 11:15:00 Ingrahm 13:35: [id number] 00 Neuro confusion Neuro/Emot Unknown 2017-10 Mercedez present ion 0-16 Ingrahm 13:35: [id number] 00 Neuro depressive Neuro/Emot Unknown 2017-10 Mercedez feelings ion 0-16 Ingrahm present 13:35: [id number] 00 Safety can be left Safety Resolve 2017-102019-02-06 Mercedez alone for d 0-18 11:15:00 Ingrahm only short 08:10: [id number] periods 00 Integument surgical Integument Resolve 2017-102018-10-30 Shila wound d 1-15 10:10:00 Brian present 08:55: [id number] 00 Elimination GI drain or Eliminatio Resolve 2017-102019-02-06 Shila tube n d 1-15 11:15:00 Brian present 08:55: [id number] 00 Neuro anxiety Neuro/Emot Resolve 2017-102019-02-06 Shila present ion d 1-15 11:15:00 Brian 08:55: [id number] 00 Medication injectable Meds Resolve 2017-102019-02-06 Shila med d 1-15 11:15:00 Brian assistance 08:55: [id number] required 00 Safety fire risk Safety Resolve 2017-102019-02-06 Shila present d 1-15 11:15:00 Brian 13:00: [id number] 00 Elimination urinary Eliminatio Resolve 2019-02-06 Mercedez incontinenc n d - 11:15:00 Ingrahm e 14:20: [id number] 00 Pain frequent Pain Mgmt Resolve 2019-02-06 Mercedez pain d 2-15 11:15:00 Ingrahm 10:15: [id number] 00 Safety risk for Safety Unknown Leanna hospitaliza 02-06 Regeczi tion 15:45: [id number] 00 Respiratory lung sounds Respirator Resolve 2019-04-03 Leanna deficit y d 02-10 10:01:00 Regeczi 13:20: [id number] 00 Respiratory smoker Respirator Resolve 2019-04-03 Leanna y d 4-29 10:01:00 Regeczi 12:10: [id number] 00 Respiratory dyspnea Respirator Resolve 2019-06-05 Mercedez present y d 5-15 10:30:00 Ingrahm 09:00: [id number] 00 Integument surgical Integument Resolve 2019-03-27 Mercedez wound d 5-15 09:15:00 Ingrahm present 09:00: [id number] 00 Nutrition enteral Nutrition Resolve 2019-03-27 Mercedez therapy d -15 09:15:00 Ingrahm 09:00: [id number] 00 Elimination urinary Eliminatio Resolve 2019-04-10 Mercedez incontinenc n d 15 09:30:00 Ingrahm e 09:00: [id number] 00 Neuro confusion Neuro/Emot Resolve 2019-11-25 Mercedez present ion d 15 11:10:00 Ingrahm 09:00: [id number] 00 Neuro anxiety Neuro/Emot Resolve 2019-11-25 Mercedez present ion d 515 11:10:00 Ingrahm 09:00: [id number] 00 Neuro depressive Neuro/Emot Resolve 2019-11-25 Mercedez feelings ion d 15 11:10:00 Ingrahm present 09:00: [id number] 00 Neuro impaired Neuro/Emot Resolve 2019-11-25 Mercedez decision-ma ion d 15 11:10:00 [facility] sonali 09:00: [id number] 00 Activity self-care Activity Resolve 2019-05-20 Mercedez deficit d -15 11:15:00 Ingrahm 09:00: [id number] 00 Safety fall risk Safety Resolve 2019-07-17 Mercedez factor d 5-15 10:35:00 Ingrahm present 09:00: [id number] 00 Safety risk for Safety Resolve 2019-07-17 Mercedez hospitaliza d 5-15 10:35:00 Ingrahm tion 09:00: [id number] 00 Medication potential Meds Resolve 2019-03-27 Mercedez clinically d 5-15 09:15:00 Ingrahm significant 09:00: [id number] medication 00 issue Integument surgical Integument Resolve 2019-05-20 Mercedez wound d 7-12 11:15:00 Ingrahm present 10:00: [id number] 00 Nutrition enteral Nutrition Resolve 2019-06-26 Mercedez therapy d 7-12 10:35:00 Ingrahm 10:00: [id number] 00 Respiratory dyspnea Respirator Resolve 2019-08-07 Leanna present y d 06-26 10:25:00 Regeczi 10:35: [id number] 00 Respiratory smoker Respirator Resolve 2019-07-01 Leanna y d 06-26 10:15:00 Regeczi 10:35: [id number] 00 Endo/Han anti-coagul Endo/Han Resolve 2019-07-23 Leanna ation d 06-26 10:15:00 Regeczi therapy 10:35: [id number] 00 Elimination urinary Eliminatio Resolve 2019-07-23 Leanna incontinenc n d 06-26 10:15:00 Regeczi e 10:35: [id number] 00 Elimination nausea/vomi Eliminatio Resolve 2019-07-01 Leanna serranog n d 06-26 10:15:00 Regeczi 10:35: [id number] 00 Integument surgical Integument Resolve 2019-07-23 Mercedez wound d 9-11 10:15:00 Ingrahm present 10:15: [id number] 00 Nutrition enteral Nutrition Resolve 2019-07-23 Mercedez therapy d 07-01 10:15:00 Ingrahm 10:15: [id number] 00 Respiratory smoker Respirator Resolve 2019-07-16 Leanna y d 07-16 10:05:00 Regeczi 10:05: [id number] 00 Elimination diarrhea Eliminatio Resolve 2019-07-23 Leanna n d 07-17 10:15:00 Regeczi 10:35: [id number] 00 Cardio hypertensio Cardiovasc Resolve 2018-102019-07-30 Leanna olivares 0 10:00:00 Regeczi 10:15: [id number] 00 Safety risk for Safety Resolve 2018-102019-07-23 Leanna hospitaliza d 0-03 10:15:00 Regeczi tion 10:15: [id number] 00 24 Hr Diet knowledge/s NT: 24Hr Resolve 2018-102019-07-23 Wen kill Diet d 0-03 15:00:00 [place] deficit - 15:00: [id number] pt 00 Nutritional eating NT: Resolve 2018-102019-07-23 Wen Barrier difficultie Barriers d 0-03 15:00:00 [place] s present 15:00: [id number] 00 Safety risk for Safety Resolve 2018-102019-08-07 Roseline hospitaliza d 0-04 10:25:00 [place] tion 14:00: [id number] 00 Social financial MURIEL: Active 2018-10 [facility] Services resource Social 0-04 [place] deficit Services 14:00: [id number] 00 Social support MURIEL: Active 2018-10 [facility] deficit Social 0-04 [place] Services 14:00: [id number] 00 Social knowledge/s MURIEL: Active 2018-10 [facility] kill Social 0-04 [place] deficit - Services 14:00: [id number] pt 00 Social financial MURIEL: Unknown 2018-10 [facility]ez Services resource Social 0-10 Ingrahm deficit Services 15:00: [id number] 00 Social knowledge/s MURIEL: Unknown 2018-10 Mer[facility]ez Services kill Social 0-10 Ingrahm deficit - Services 15:00: [id number] pt 00 Respiratory lung sounds Respirator Resolve 2018-102019-08-07 Leanna deficit y d 0-18 10:25:00 Regeczi 10:25: [id number] 00 Respiratory dyspnea Respirator Resolve 2018-102019-10-23 Mercedez present y d 10-28 10:15:00 Ingrahm 11:00: [id number] 00 Integument surgical Integument Resolve 2018-102019-09-11 Mercedez wound d 10-28 09:50:00 Ingrahm present 11:00: [id number] 00 Nutrition enteral Nutrition Resolve 2018-102019-09-11 Mercedez therapy d 10-28 09:50:00 Ingrahm 11:00: [id number] 00 Elimination urinary Eliminatio Resolve 2018-102019-09-11 Mercedez incontinenc n d 10-28 09:50:00 Ingrahm e 11:00: [id number] 00 Safety fall risk Safety Resolve 2018-102019-09-11 Mercedez factor d 10-28 09:50:00 Ingrahm present 11:00: [id number] 00 Safety risk for Safety Resolve 2018-102019-09-23 Mercedez hospitaliza d 10-28 11:10:00 Ingrahm tion 11:00: [id number] 00 Safety risk for Safety Unknown 2018-10 Mercedez hospitaliza 11-24 Ingrahm tion 15:00: [id number] 00 Cardio hypertensio Cardiovasc Resolve 2019-11-25 Leanna n ular d 10-23 11:10:00 Regeczi 10:15: [id number] 00 Elimination urinary Eliminatio Resolve 2019-11-05 Leanna incontinenc n d 10-23 10:23:00 Regeczi e 10:15: [id number] 00 Elimination constipatio Eliminatio Resolve 2019-11-05 Leanna n n d 10-23 10:23:00 Regeczi 10:15: [id number] 00 Integument surgical Integument Resolve 2019-11-19 Mercedez wound d 10-28 10:50:00 Ingrahm present 10:50: [id number] 00 Nutrition enteral Nutrition Resolve 2019-11-25 Mercedez therapy d 10-28 11:10:00 Ingrahm 10:50: [id number] 00 Elimination UTI within Eliminatio Resolve 2019-11-05 Mercedez past 14 n d 10-28 10:23:00 Ingrahm days 10:50: [id number] 00 Activity self-care Activity Resolve 2019-11-05 Mercedez deficit d 10-28 10:23:00 Ingrahm 10:50: [id number] 00 Safety fall risk Safety Resolve 2019-11-05 Mercedez factor d 10-28 10:23:00 Ingrahm present 10:50: [id number] 00 Safety risk for Safety Resolve 2019-11-05 Mercedez hospitaliza d 10-28 10:23:00 Ingrahm tion 10:50: [id number] 00 Safety risk for Safety Active Roseline denis 2-12 [facility] tion 11:00: [id number] 00 Allergies, Adverse Reactions, Alerts Allergy Allergy Status Severity Reaction(s) Onset Inactive Treating Comments Name Type Date Date Clinician latex Base Active Unknown Hives Mercedez Ingredient 07-07 Ingrahm [id number] amoxicillin Base Active Unknown Anaphylaxis Mercedez Ingredient 07-07 Ingrahm [id number] bee venom Base Active Unknown Anaphylaxis Mercedez protein Ingredient 07-07 Ingrahm (honey bee) [id number] Botox Medication Active Unknown Anaphylaxis Mercedez Name ID 07-07 [facility] [id number] contrast Unknown Active Unknown Anaphylaxis Mercedez dye 07-07 Ingrm [id number] Penicillins Allergen Active Unknown Anaphylaxis Mercedez Group 07-07 Ingrm [id number] shellfish Base Active Unknown Anaphylaxis Mercedez derived Ingredient 07-07 [facility] [id number] adhesive Base Active Unknown Hives Mercedez tape Ingredient 07-07 Ingrm [id number] nsaids Unknown Active Unknown stomach issues 2017- Mercedez 07-07 Ingrm [id number] oxycodone Base Active Unknown swelling Mercedez Ingredient 07-07 Ingrm [id number] Betadine Medication Active Unknown Rash 2017- [id number] Hibiclens Medication Active Unknown Rash Mercedez Name ID 07-07 [facility] [id number] evironmenta Unknown Active Unknown hay fever, 2018 Rea l/seasonal watery eye, 07-07 Guidelli itching, [id number] sneeze, congestion povidone-io Base Active Unknown itching Rea dine Ingredient 07-07 Guidelli [id number] Iodine and Allergen Active Unknown Anaphylaxis Rea Iodide Group 07-07 Guidelli Containing [id number] Products albumin Base Active Unknown Anaphylaxis Rea colloid, Ingredient 07-07 Guidelli human [id number] fentanyl Base Active Unknown hallucinations Rea Ingredient 07-07 Guidelli [id number] Medications Ordered Filled Start Stop Current Ordering [...] Unknown 2-Godwin 0.3 2-Godwin 0.3 07-07 Tashia [facility]IC[facility] mg/0.3 mL mg/0.3 mL e injection, injection, [...] Blegen Unknown Unknown Respimat Respimat 0-07 10-21 ,aTshia 2.5 2.5 e mcg/actuati mcg/actuati on solution [...] ,Tashia tablet tablet e Spiriva Spiriva 2018-10 No Blegen Unknown Unknown Respimat Respimat 2-05 MD,Tashia 2.5 2.5 e mcg/actuati mcg/actuati on solution on solution for for inhalation inhalation losartan losartan 2018-10 No Blegen Unknown Unknown 100 mg 100 mg 2-05 ,Tashia tablet tablet e azelastine azelastine Yes Blegen Unknown Unknown 0.05 % eye 0.05 % eye 1-03 MD,Tashia drops drops e ketotifen ketotifen Yes Blegen [...] Observation Time Observation Value Comments SYSTOLIC mm[Hg] 2019-12-19 18:10:38 170 mm[Hg] mm[Hg] Method: Sit SYSTOLIC mm[Hg] 2018-11-27 18:04:11 142 mm[Hg] mm[Hg] Method: Stand SYSTOLIC mm[Hg] 2019-06-27 18:07:43 122 mm[Hg] mm[Hg] Method: Lie DIASTOLIC mm[Hg] 2019-12-19 18:10:38 92 mm[Hg] mm[Hg] Method: Sit DIASTOLIC mm[Hg] 2018-11-27 18:04:11 84 mm[Hg] mm[Hg] Method: Stand DIASTOLIC mm[Hg] 2019-06-27 18:07:43 50 mm[Hg] mm[Hg] Method: Lie Procedures This patient has no known procedures. Results This patient has no known results.
--- OUTSIDE RECORDS SUMMARY | 2020-01-19 08:24 | XMS REPORT | Continuity of Care Document ---
:1955 External Reference #:[id number] Author Name Trish Combs M.D. Address [address] [place] [address] Care Team Providers Name Role Phone Aravind Rosas MD Care Team Information Labor Supervisor Unavailable Rock Keith MD - Cardiovascular Care Team Information Labor Supervisor Disease Javid Romo - Gastroenterology Care Team Information Labor Supervisor [phone] Gary Frank - Cardiovascular Care Team Information Labor Supervisor Disease Zuleika Wright MD - Surgery Care Team Information Labor Supervisor [phone] Problems Active Problems Provider Date Essential hypertension [...] once per day for Blegen, M.D. 0 137mcg/Gardiner allergic nose Solution Hydromorphone HCL 4 Tablets [...] 30tabs Trish Leonardo 20mg Tablets dissolved or Ramno Combs 8 suspension- J tube every day [...] Nicotrol inhale as directed 168units Z71.6 Trish P. 10mg Inhaler when quit smoking- no Ramon Combs 8 more than 5 per day Levocetirizine take 1 tablet by 30tabs J30.9 Trish P. Dihydrochloride mouth at bedtime for Dylan CombsDEusebio 8 5mg allergies Tablets Fluticasone nasal spray- 2 sprays 16gm J30.9 Trish P. Propionate each nostril every BleZahra plasencia.DEusebio 8 50mcg/Act day as directed for Suspension allergic nose symptoms Ketotifen Fumarate 1 drop each eye twice 5ml Trish PEusebio per day for allergic Ramon Combs 7 0.025% Solution conjunctivitis Jevity 1.5 Pineda 5 cans via j tube as 150units Trish PEusebio Liquid directed per day Ramon Combs 7 Split Gauze Pads For use as directed bid 1monthsup Trish P. J Tube Use to qid around j tube león Combs M.D. 7 site Tube Feeding as directed for j 1MonthSup Trish PEusebio Supplies/ Bags tube feeds- 5 cans león Combs M.D. 7 jevity per night Losartan Potassium 1 PO Qday For Blood 30tabs I10 Trish PEusebio Pressure Dylan CombsDEusebio 7 100mg Tablets Epipen 2-Godwin use as directed for 2units Trish PEusebio bee sting allergy and Garret MEusebioDEusebio 7 0.3mg/0.3ML Solution call 911 Auto-Inject Pump Feeding Supply use as directed. low 1units Trish P. Kit profile button, 24 Ramon Combs 6 fr, 2.0cm Ondansetron 1 by mouth every 8 30tabs R11.0 Trish P. 4mg Tablets hours as needed Ramon Combs [...] Sodium take 1 tablet by 90tabs Trish PEusebio mouth daily on an Ramon Combs 0 [...] 02/13/2017 1000mcg Injection Vitamin B-12 Injection-To Trish Comsb M.D. 01/10/2017 1000mcg Injection Vitamin B-12 Injection-To [...] CPT Code Status Date Vaccine Lot # [id number] Given 07/27/2019 Influenza Virus Vaccine, Quadrivalent, 3 Yr > [id number] Quad, Preserv Free 64530 Given 07/03/2018 Influenza Virus Vaccine, Quadrivalent, 3 Yr > Quad, Preserv Free 45738 Given 07/04/2017 Influenza Virus Vaccine, Quadrivalent, 3 Yr > [id number] Quad, Preserv Free 89811 Given 08/23/2016 Prevnar-13 Pneumococcal Conjugate Vaccine [id number] 49235 Given 07/04/2016 Influenza Virus Vaccine, Quadrivalent, 3 Yr > [id number] Quad, Preserv Free 65882 Given 09/05/2015 Influenza Virus Vaccine, Quadrivalent, 3 Yr > [id number] Quad, Preserv Free 48986 Given 07/28/2014 Influenza Virus Vaccine, Quadrivalent, 3 Yr > [id number] Quad, Preserv Free 51162 Given 06/30/2013 Influenza Vaccine-Preservative Free 3 Yrs And [id number] Above 61932 Given 08/14/2012 Pneumovax 23 (PPSV23) 65+ years or high risk 2 to [id number] 64 year old 14676 Given 08/14/2012 Influenza Vaccine-Preservative Free 3 Yrs And [id number] Above 32998 Given 07/09/2011 Influenza Vaccine-Preservative Free 3 Yrs And [id number] Above 98692 Given 03/04/2011 DT (Adult) 59116 Given 07/04/2010 Influenza Vaccine-Preservative Free 3 Yrs And [id number] Above 03234 Given 08/20/2006 Influenza Virus Vaccine, 3 Yrs And Above [id number] 60949 Given 09/01/2005 Pneumovax 23 (PPSV23) 65+ years or high risk 2 to 64 year old 59014 Given 09/01/2005 Influenza Virus Vaccine, 3 Yrs And Above Vital Signs Date Vital Result Comment 12/30/2019 10:15am Weight 117.00 lb Weight 53.071 kg BP Systolic 142 mmHg BP Diastolic 82 mmHg Heart Rate 57 /min Body Temperature 99.2 F O2 % BldC Oximetry 98 % 11/23/2019 12:29pm BP Systolic 148 mmHg BP Diastolic 80 mmHg Heart Rate 72 /min Body Temperature 97.5 F Respiratory Rate 16 /min O2 % BldC Oximetry 98 % Results Test Acquired Facility Test Result H/L Range Note Date Laboratory 12/19/2019 [facility] TSH (Thyroid 1.30 Normal 0.34-5.6 test finding [phone] Stimulating mcIU/mL 0 Horm) D Dimer Quantitative 781 ng/mL High Less Than 230 1 CKMB 12/19/2019 [facility] CKMB 1.9 ng/mL Normal 0.6-6.3 [phone] ng/mL Laboratory test 12/19/2019 [facility] Troponin-I 0.02 ng/mL <0.03 2 finding [phone] (TnI) CBC Auto Diff 12/19/2019 [facility] White 11.4 High 3.5-10.8 [phone] Blood 10^3/uL Count Red Blood Count 5.41 [...] Red Blood Cells % 0.1 Inr/Protime 12/19/2019 [facility] Inr 1.02 Normal 0.82-1.09 3 [phone] Laboratory test 12/19/2019 [facility] Partial 34.5 Normal 26.0-38.0 finding [phone] Thrombo seconds Time PTT B-Type Natriuretic Peptide BNP 273 pg/mL High <=100 Lactic Acid 1.9 mmol/L Normal 0.5-2.0 4 Laboratory test 12/19/2019 [facility] Magnesium 1.5 mg/dL Low 1.9-2.7 finding [phone] Creatine Kinase 50 U/L Normal 10-223 Troponin-I (TnI) 0.01 ng/mL <0.03 5 Comp Metabolic 12/19/2019 [facility] Sodium 129 mmol/ L Low 135-145 Panel [phone] Potassium 3.5 mmol/L Normal 3.5-5.0 Chloride 94 [...] Egfr 66.0 >60 6 Venous Blood 10/25/2019 [facility] Venous Blood 7.42 Normal 7.32-7.43 Gas [phone] pH Venous Pco2 35 mmHg Low 41-51 Venous Po2 < 38.0 mmHg Normal 35-45 Venous O2 Saturation 63.3 % Low 70-80 Venous Blood Base Excess -1.3 mmol/L Low 0.0-4.0 7 Venous Bicarbonate Hco3 22.9 mmol/L Low 24-28 Laboratory test 10/25/2019 [facility] Troponin-I 0.01 ng/mL <0.03 8 finding [phone] (TnI) Urine Culture And 10/25/2019 [facility] Urine Culture SEE RESULT 9 Sensitivities [phone] BELOW Urine Drug SCR ED 10/25/2019 [facility] Urine None None [facility] [phone] Amphetamine Detected Detect Screen Urine Barbiturates Screen None Detected None Detect Urine Benzodiazepine Screen None Detected None Detect Urine Cannabinoids Screen None Detected None Detect Urine Cocaine Screen None Detected None Detect Urine Opiates Screen Presumptive Posi <SEE NOTE> Abnormal None Detect 10 Urine Phencyclidine Screen None Detected None Detect 11 Urinalysis Profile 10/25/2019 [facility] Urine Color Yellow [phone] Urine Appearance Cloudy Urine Specific [facility] 1.005 Low 1.010-1.030 Urine pH 6.0 Normal [...] Cell Present Abnormal Absent Laboratory test 10/25/2019 [facility] Acetaminophen < 15 g/mL 12 finding [phone] Alcohol < 10 mg/dL Normal <10 Salicylate < 2.50 mg/dL <30 TSH (Thyroid Stimulating Horm) 1.37 mcIU/mL Normal 0.34-5.60 Comp Metabolic 10/25/2019 [facility] Sodium 134 mmol/ L Low 135-145 Panel [phone] Potassium 3.9 mmol/L Normal 3.5-5.0 Chloride 99 [...] Egfr 68.3 >60 13 CBC Auto 10/25/2019 [facility] White Blood 12.9 10^3/ uL High 3.5-10.8 Diff [phone] Count Red Blood Count 4.27 10^6/uL Normal [...] Blood Cells % 0.0 Laboratory test 09/18/2019 [facility] Lipase 10 U/L Low 11.0-82.0 finding [phone] CBC Auto Diff 09/18/2019 [facility] White Blood 7.1 Normal 3.5-10.8 [phone] Count 10^3/uL Red Blood Count 4.42 10^6/uL [...] Blood Cells % 0.0 Comp Metabolic 09/18/2019 [facility] Sodium 137 mmol/ L Normal 135-145 Panel [phone] Potassium 3.1 mmol/L Low 3.5-5.0 Chloride 108 [...] Egfr 119.5 >60 14 Laboratory test 09/18/2019 [facility] Troponin-I (TnI ) 0.01 ng/mL <0.03 15 finding [phone] Urinalysis 09/08/2019 [facility] Urine Color Yellow Profile [phone] Urine Appearance Clear Urine Specific [facility] 1.016 Normal 1.010-1.030 Urine pH 5.0 Normal 5-9 Urine Urobilinogen Negative Negative Urine Ketones Negative Negative Urine Protein Negative Negative Urine Leukocytes Negative Negative Urine Blood Negative Negative Urine Nitrite Negative Negative Urine Bilirubin Negative Negative Urine Glucose Negative Negative Laboratory test 09/08/2019 [facility] Troponin-I (TnI ) 0.01 ng/mL <0.03 16 finding [phone] B-Type Natriuretic Peptide BNP 165 pg/mL High <=100 Comp Metabolic 09/08/2019 [facility] Sodium 127 mmol/ L Low 135-145 Panel [phone] Chloride 98 mmol/L Low 101-111 Co2 Carbon [...] TNP U/L 13-39 19 Laboratory test 09/08/2019 [facility] Lactic Acid 1.6 mmol/L Normal 0.5-2.0 20 finding [phone] CBC Auto Diff 09/08/2019 [facility] White Blood 8.9 Normal 3.5-10.8 [phone] Count 10^3/uL Red Blood Count 5.16 10^6/uL [...] Blood Cells % 0.1 Laboratory test 09/08/2019 [facility] Potassium 3.2 mmol/L Low 3.5-5.0 finding [phone] Redraw Ast Redraw 18 U/L Normal 13-39 Magnesium 1.6 mg/dL Low 1.9-2.7 C Reactive Protein 3.34 mg/L Normal <8.01 CKMB 07/16/2019 [facility] CKMB ng/mL 0.8 ng/mL Normal 0.6-6.3 [phone] Laboratory test 07/16/2019 [facility] B-Type 55 pg/ mL <=100 finding [phone] Natriuretic Peptide BNP Laboratory test 07/16/2019 [facility] Magnesium 1.8 mg/dL Low 1.9-2.7 finding [phone] Creatine Kinase 21 U/L Normal 10-223 Troponin-I (TnI) 0.01 ng/mL <0.04 21 Comp Metabolic 07/16/2019 [facility] Sodium 130 mmol/ L Low 135-145 Panel [phone] Potassium 4.2 mmol/L Normal 3.5-5.0 Chloride 99 [...] Egfr 86.1 >60 22 Laboratory test 07/16/2019 [facility] Lactic Acid 1.3 mmol/L Normal 0.5-2.0 23 finding [phone] CBC Auto Diff 07/16/2019 [facility] White Blood 6.1 Normal 3.5-10.8 [phone] Count 10^3/uL Red Blood Count 4.82 10^6/uL [...] Blood Cells % 0.1 Laboratory test 07/16/2019 [facility] Troponin-I (TnI ) 0.01 ng/mL <0.04 24 finding [phone] 1 Please note: The following may produce [...] immediately to secondary confirmatory testing. Using the [employer] MobileI 800 Access Immunoassay systems, the 99th percentile upper reference limit was demonstrated to be < 0.03 ng/mL. 3 Standard intensity warfarin therapeutic range: 2.0-3.0 High intensity warfarin therapeutic range: 2.5-3.5 4 NDS Severe Sepsis and Septic Shock Management Bundle Measure requires all lactic acids initially measuring >2.0 mmol/L be repeated. 5 Troponin-I testing on Plasma Separator Tubes (PST) has a known false positive rate of 0.20-0.40%. All positive troponins reflex immediately to secondary confirmatory testing. Using the [employer] DxI 800 Access Immunoassay systems, the 99th [...] immediately to secondary confirmatory testing. Using the [employer] DxI 800 Access Immunoassay systems, the 99th percentile upper reference limit was demonstrated to be < 0.03 ng/mL. 9 SEE RESULT BELOW Name: ISABEL CA : [address]: Tunde Burt MD Acct: [id number] Unit: [id number] AGE: 64 Location: [place] [address]- Re10/25/19 Dis: 10/27/19 SEX: F Status: DIS IN SPEC: [id number] ALLIE: 10/25/19-[address] [facility] [address]: Joaquin Gilmore MD REQ: [id number] RECD: 10/25/19 STATUS: COMP JONES DR: Trish Combs MD _ SOURCE: URINE SPDESC: ORDERED: Urine Culture Procedure Result Reported Site Urine Culture Final 10/29/19- 1334 ML No growth of clinically significant organisms * ML - Main Lab . END OF REPORT DEPARTMENT OF PATHOLOGY, [address] [place] [address] Toan Guillaume M.D. Director [facility] # [id number] 10 Presumptive Positive Presumptive positive results are [...] immediately to secondary confirmatory testing. Using the [employer] Access Immunoassay systems, the 99th percentile upper reference limit was demonstrated to be < 0.03 ng/mL. 16 Troponin-I testing on Plasma Separator Tubes (PST) has a known false positive rate of 0.20-0.40%. All positive troponins reflex immediately to secondary confirmatory testing. Using the Ox[employer] DxI 800 Access Immunoassay systems, the 99th [...] report test result due to hemolysis. 20 [facility] Severe Sepsis and Septic Shock Management Bundle Measure requires all lactic acids initially measuring >2.0 mmol/L be repeated. 21 Troponin-I testing on Plasma Separator Tubes (PST) has a known false positive rate of 0.20-0.40%. All positive troponins reflex immediately to secondary confirmatory testing. Using the Ox[employer] DxI 800 Access Immunoassay systems, the 99th [...] 5 Kidney failure <15 (or dialysis) 23 [facility] Severe Sepsis and Septic Shock Management Bundle Measure requires all lactic acids initially measuring >2.0 mmol/L be repeated. 24 Troponin-I testing on Plasma Separator Tubes (PST) has a known false positive rate of 0.20-0.40%. All positive troponins reflex immediately to secondary confirmatory testing. Using the [employer] Access Immunoassay systems, the 99th percentile upper reference limit was demonstrated to be < 0.03 ng/mL. Procedures Date Code Description Status 11/23/2019 28440 Therapeutic,Prophylactic,Or Diagnostic Inj,SC/Im Completed Specify Drug 09/24/2019 93677 Therapeutic,Prophylactic,Or Diagnostic Inj,SC/Im Completed Specify Drug 07/27/2019 77848 Therapeutic,Prophylactic,Or Diagnostic Inj,SC/Im Completed Specify Drug 06/21/2016 [id number] Colonoscopy Completed Medical Devices Description No Information Available Encounters Type Date Location Provider Dx Diagnosis Office Visit 11/23/2019 [place] [facility] Leonardo I1Davey Essential ( primary) 12:30p Ramon Combs hypertension E53.8 Deficiency of other specified B group vitamins R07.89 Other chest pain R09.81 Nasal congestion 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 specified sites 12/30/2019 R21 Rash [...] immunization Trish Combs M.D. Plan of Treatment 12/30/2019 - Trish Combs M.D.I10 Essential (primary) hypertensionFollow up:/U JANUARY AT [facility] OFFICE- END OF SESSION-Recommendations:-- YOUR BLOOD PRESSURE IS IMPROVED -- STAY ON THE METOPROLOL 25 MG 1 TABLET TWICE PER DAY -- STAY ON THE LOSARTAN 100 MG PER DAY -- STAY ON THE AMLODIPINE 10 MG PER DAY - - STAY ON THE [id number] MG 1 PER DAY IN THE MORNING -- INCREASE YOUR WATER INTAKE- AIM FOR 8 CUPS PER DAY- TRYADDING IN MORE WATER FLUSHES OF YOUR TUBE -- CONTINUE IV FLUIDS TO TWICE PER WEEK -- REMINDER TO GET ON WAIT LIST AT PHARMACY FOR THE SHINGRIX SHINGLES FUCIQHYO84.89 Other chest painFollow up:.Recommendations:-- CONTINUE TO FOLLOW-UP WITH DR. FOSTER SCHEDULED -- CONTINUE USING YOUR PILL BOX TO KEEP TRACK OF YOR MEDICATION -- CONTINUE YOUR TUBE FEEDS EVERY NIGHT, 5 CANS OF THE JEVITY EVERY AHPEKT53.8 Deficiency of other specified B group vitaminsFollow up:.Recommendations:-- WE GAVE YOU YOUR VITAMIN B12 INJECTION TODAY- CONTINUE ONCE PER MONTH [id number] Anxiety disorder, unspecifiedRecommendations:-- YOU CAN TAKE THE LORAZEPAM 1/2-1 NEEDED ONCE PER DAY AT NIGHT FOR ANXIETY, DO NOT TAKE AT SAMETIME YOUR MORPHINE IT CAN INCREASED RISK OF DROWSINESS/ MENTAL STATUS GHLTIIWP13.7 Neoplasm of uncertain behavior of other specified sitesFollow up: .Recommendations:-- GET THE ULTRASOUND OF YOUR ARMPITS (AXILLAE) -- RESCHEDULE YOUR CONSULT WITH DR. SANFORD - [phone]-- LET ME KNOW IF DIFFICULTY GETTING [id number] Rash and other nonspecific skin eruptionRecommendations:-- YOU CAN TAKE CETIRIZINE/ ZYRTEC 10 MG ONCE PER DAY EVERY DAY OR AT NIGHT NEEDED- JUST ONCE PERDAY FOR ALLERGIES/ ITCHING -- AVOID THE BENADRYL Functional Status Functional Condition Comment Date Status Glasses Active Mental Status Description No Information Available Referrals Refer to Reason for Referral Status Appt Date Melinda Sanford MD CONSULT DR. IYER (HE DID HER MASTECTOMY Scheduled 2009) FOR AXILLARY MASS, H/O BREAST CANCER MAS transportion confirmed: 12/17/19, 1 pm pickling solution maker for 2 pm appt. Pt will call [phone] when ready for return transportion home Conf# [id number] Pt notified. [address] [facility] [address] [phone] Rock Keith MD F/U DR. KEITH FOR CARDIOLOGY- LVOT ON RECENT ECHO, Closed DIFFICULTY TO CONTROL HTN - - Please contact Pt to schedule appt. - - Please fax appointment date/time to [facility], . [place] [id number] [place] [address] [phone]
--- OUTSIDE RECORDS SUMMARY | 2020-01-19 08:24 | XMS REPORT ---
:1955 Author Organization [facility] Care Team Providers Name Role Phone Unavailable Unavailable Unavailable Problems Condition Condition Condition Status Onset Resolution Last Treating Comments Name Details Category Date Date Treatment Clinician Date Achalasia Achalasia Diagnosis Active Mercedez of [facility] [facility] 07-07 Ingrahm [id number] Athscl Athscl Diagnosis Active Mercedez heart heart 07-07 Ingrahm disease of disease of [id number] [place] coronary coronary artery w/o artery w/o ang pctrs ang pctrs Encounter Encounter Diagnosis Active Mercedez for for 07-07 Ingrahm attention attention [id number] to to gastrostomy gastrostomy Gastro-esop Gastro-esop Diagnosis Active Mercedez hageal hageal 07-07 Ingrahm reflux reflux [id number] disease disease without without esophagitis esophagitis Other Other Diagnosis Active Mercedez specified specified 07-07 Ingrahm arthritis, arthritis, [id number] unspecified unspecified site site Essential Essential Diagnosis Active Mercedez (primary) (primary) 07-07 Ingrahm hypertensio hypertensio [id number] n n half-way half-way Diagnosis Active Mercedez (current) (current) Ingrahm use of use of [id number] anticoagula anticoagula nts nts Nicotine Nicotine Diagnosis Active Mercedez dependence, dependence, Ingrahm cigarettes, cigarettes, [id number] uncomplicat uncomplicat ed ed Personal Personal Diagnosis Active Mercedez history of history of Ingrahm malignant malignant [id number] neoplasm of neoplasm of breast breast Prsnl hx of Prsnl hx of Diagnosis Active Mercedez TIA (TIA), TIA (TIA), Ingrahm and cereb and cereb [id number] infrc w/o infrc w/o resid resid deficits deficits Pain frequent Pain Mgmt Resolve 2018-11-26 Ana pain d 9 16:15:00 Sweet 13:30: [id number] 00 Pain severe pain Pain Mgmt Resolve 2018-11-26 Ana d 9 16:15:00 Sweet 13:30: [id number] 00 Endo/Han anti-coagul Endo/Han Resolve 2019-02-06 Ana ation d 07-07 11:15:00 Sweet therapy 13:30: [id number] 00 Integument surgical Integument Resolve 2018-08-05 Rea wound d 07-07 13:35:00 Guidelli present 13:30: [id number] 00 Nutrition nutritional Nutrition Resolve 2019-01-02 Ana restriction d 07-07 10:00:00 Sweet s 13:30: [id number] 00 Nutrition changing Nutrition Resolve 2019-01-02 Ana weight/appe d 07-07 10:00:00 Sweet tite 13:30: [id number] 00 Nutrition nutritional Nutrition Resolve 2019-01-02 Ana risk d 07-07 10:00:00 Sweet 13:30: [id number] 00 Nutrition enteral Nutrition Resolve 2019-02-06 Ana therapy d 07-07 11:15:00 Sweet 13:30: [id number] 00 Safety structural Safety Resolve 2019-02-06 Ana barriers d 07-07 11:15:00 Sweet present 13:30: [id number] 00 Safety fall risk Safety Resolve 2019-02-06 Ana factor d 07-07 11:15:00 Sweet present 13:30: [id number] 00 Safety risk for Safety Resolve 2019-02-06 Ana hospitaliza d 07-07 11:15:00 Sweet tion 13:30: [id number] 00 Medication potential Meds Resolve 2019-02-06 Ana clinically d 07-07 11:15:00 Sweet significant 13:30: [id number] medication 00 issue Musculoskel requires Musculoske Resolve 2019-02-06 Ana etal human letal d 07-07 11:15:00 Sweet assist to 13:30: [id number] leave home 00 IV IV present IV Resolve 2019-02-06 Rea d 9-30 11:15:00 Lissette [id number] Respiratory dyspnea Respirator Resolve 2017-102019-02-06 Mercedez present y d 0-16 11:15:00 Ingrahm 13:35: [id number] 00 Neuro confusion Neuro/Emot Unknown 2017-10 Mercedez present ion 0-16 Ingrahm 13:35: [id number] 00 Neuro depressive Neuro/Emot Unknown 2017-10 Mercedez feelings ion 0-16 Ingrahm present 13:35: [id number] 00 Safety can be left Safety Resolve 2017-102019-02-06 Mercedez alone for d 0-18 11:15:00 Ingrahm only short 08:10: [id number] periods 00 Integument surgical Integument Resolve 2017-102018-10-30 Shila wound d 1-15 10:10:00 Brian present 08:55: [id number] 00 Elimination GI drain or Eliminatio Resolve 2017-102019-02-06 Shila tube n d 1-15 11:15:00 Brian present 08:55: [id number] 00 Neuro anxiety Neuro/Emot Resolve 2017-102019-02-06 Shila present ion d 1-15 11:15:00 Brian 08:55: [id number] 00 Medication injectable Meds Resolve 2017-102019-02-06 Shila med d 1-15 11:15:00 Brian assistance 08:55: [id number] required 00 Safety fire risk Safety Resolve 2017-102019-02-06 Shila present d 1-15 11:15:00 Brian 13:00: [id number] 00 Elimination urinary Eliminatio Resolve 2019-02-06 Mercedez incontinenc n d - 11:15:00 Ingrahm e 14:20: [id number] 00 Pain frequent Pain Mgmt Resolve 2019-02-06 Mercedez pain d 2-15 11:15:00 Ingrahm 10:15: [id number] 00 Safety risk for Safety Unknown Leanna hospitaliza 02-06 Regeczi tion 15:45: [id number] 00 Respiratory lung sounds Respirator Resolve 2019-04-03 Leanna deficit y d 02-10 10:01:00 Regeczi 13:20: [id number] 00 Respiratory smoker Respirator Resolve 2019-04-03 Leanna y d 4-29 10:01:00 Regeczi 12:10: [id number] 00 Respiratory dyspnea Respirator Resolve 2019-06-05 Mercedez present y d 5-15 10:30:00 Ingrahm 09:00: [id number] 00 Integument surgical Integument Resolve 2019-03-27 Mercedez wound d 5-15 09:15:00 Ingrahm present 09:00: [id number] 00 Nutrition enteral Nutrition Resolve 2019-03-27 Mercedez therapy d -15 09:15:00 Ingrahm 09:00: [id number] 00 Elimination urinary Eliminatio Resolve 2019-04-10 Mercedez incontinenc n d 15 09:30:00 Ingrahm e 09:00: [id number] 00 Neuro confusion Neuro/Emot Resolve 2019-11-25 Mercedez present ion d 15 11:10:00 Ingrahm 09:00: [id number] 00 Neuro anxiety Neuro/Emot Resolve 2019-11-25 Mercedez present ion d 515 11:10:00 Ingrahm 09:00: [id number] 00 Neuro depressive Neuro/Emot Resolve 2019-11-25 Mercedez feelings ion d 15 11:10:00 Ingrahm present 09:00: [id number] 00 Neuro impaired Neuro/Emot Resolve 2019-11-25 Mercedez decision-ma ion d 15 11:10:00 [facility] sonali 09:00: [id number] 00 Activity self-care Activity Resolve 2019-05-20 Mercedez deficit d -15 11:15:00 Ingrahm 09:00: [id number] 00 Safety fall risk Safety Resolve 2019-07-17 Mercedez factor d 5-15 10:35:00 Ingrahm present 09:00: [id number] 00 Safety risk for Safety Resolve 2019-07-17 Mercedez hospitaliza d 5-15 10:35:00 Ingrahm tion 09:00: [id number] 00 Medication potential Meds Resolve 2019-03-27 Mercedez clinically d 5-15 09:15:00 Ingrahm significant 09:00: [id number] medication 00 issue Integument surgical Integument Resolve 2019-05-20 Mercedez wound d 7-12 11:15:00 Ingrahm present 10:00: [id number] 00 Nutrition enteral Nutrition Resolve 2019-06-26 Mercedez therapy d 7-12 10:35:00 Ingrahm 10:00: [id number] 00 Respiratory dyspnea Respirator Resolve 2019-08-07 Leanna present y d 06-26 10:25:00 Regeczi 10:35: [id number] 00 Respiratory smoker Respirator Resolve 2019-07-01 Leanna y d 06-26 10:15:00 Regeczi 10:35: [id number] 00 Endo/Han anti-coagul Endo/Han Resolve 2019-07-23 Leanna ation d 06-26 10:15:00 Regeczi therapy 10:35: [id number] 00 Elimination urinary Eliminatio Resolve 2019-07-23 Leanna incontinenc n d 06-26 10:15:00 Regeczi e 10:35: [id number] 00 Elimination nausea/vomi Eliminatio Resolve 2019-07-01 Leanna serranog n d 06-26 10:15:00 Regeczi 10:35: [id number] 00 Integument surgical Integument Resolve 2019-07-23 Mercedez wound d 9-11 10:15:00 Ingrahm present 10:15: [id number] 00 Nutrition enteral Nutrition Resolve 2019-07-23 Mercedez therapy d 07-01 10:15:00 Ingrahm 10:15: [id number] 00 Respiratory smoker Respirator Resolve 2019-07-16 Leanna y d 07-16 10:05:00 Regeczi 10:05: [id number] 00 Elimination diarrhea Eliminatio Resolve 2019-07-23 Leanna n d 07-17 10:15:00 Regeczi 10:35: [id number] 00 Cardio hypertensio Cardiovasc Resolve 2018-102019-07-30 Leanna olivares 0 10:00:00 Regeczi 10:15: [id number] 00 Safety risk for Safety Resolve 2018-102019-07-23 Leanna hospitaliza d 0-03 10:15:00 Regeczi tion 10:15: [id number] 00 24 Hr Diet knowledge/s NT: 24Hr Resolve 2018-102019-07-23 Wen kill Diet d 0-03 15:00:00 [place] deficit - 15:00: [id number] pt 00 Nutritional eating NT: Resolve 2018-102019-07-23 Wen Barrier difficultie Barriers d 0-03 15:00:00 [place] s present 15:00: [id number] Safety risk for Safety Resolve 2018-102019-08-07 Roseline hospitaliza d 0-04 10:25:00 [place] tion 14:00: [id number] 00 Social financial MURIEL: Active 2018-10 [facility] Services resource Social 0-04 [place] deficit Services 14:00: [id number] 00 Social support MURIEL: Active 2018-10 [facility] deficit Social 0-04 [place] Services 14:00: [id number] 00 Social knowledge/s MURIEL: Active 2018-10 [facility] kill Social 0-04 [place] deficit - Services 14:00: [id number] pt 00 Social financial MURIEL: Unknown 2018-10 [facility] Services resource Social 0-10 Ingrahm deficit Services 15:00: [id number] 00 Social knowledge/s MURIEL: Unknown 2018-10 [facility] Services kill Social 0-10 Ingrahm deficit - Services 15:00: [id number] pt 00 Respiratory lung sounds Respirator Resolve 2018-102019-08-07 Leanna deficit y d 0-18 10:25:00 Regeczi 10:25: [id number] 00 Respiratory dyspnea Respirator Resolve 2018-102019-10-23 Mercedez present y d 10-28 10:15:00 Ingrahm 11:00: [id number] 00 Integument surgical Integument Resolve 2018-102019-09-11 Mercedez wound d 10-28 09:50:00 Ingrahm present 11:00: [id number] 00 Nutrition enteral Nutrition Resolve 2018-102019-09-11 Mercedez therapy d 10-28 09:50:00 Ingrahm 11:00: [id number] 00 Elimination urinary Eliminatio Resolve 2018-102019-09-11 Mercedez incontinenc n d 10-28 09:50:00 Ingrahm e 11:00: [id number] 00 Safety fall risk Safety Resolve 2018-102019-09-11 Mercedez factor d 10-28 09:50:00 Ingrahm present 11:00: [id number] 00 Safety risk for Safety Resolve 2018-102019-09-23 Mercedez hospitaliza d 10-28 11:10:00 Ingrahm tion 11:00: [id number] 00 Safety risk for Safety Unknown 2018-10 Mercedez hospitaliza 11-24 Ingrahm tion 15:00: [id number] 00 Cardio hypertensio Cardiovasc Resolve 2019-11-25 Leanna n ular d 10-23 11:10:00 Regeczi 10:15: [id number] 00 Elimination urinary Eliminatio Resolve 2019-11-05 Leanna incontinenc n d 10-23 10:23:00 Regeczi e 10:15: [id number] 00 Elimination constipatio Eliminatio Resolve 2019-11-05 Leanna n n d 10-23 10:23:00 Regeczi 10:15: [id number] 00 Integument surgical Integument Resolve 2019-11-19 Mercedez wound d 10-28 10:50:00 Ingrahm present 10:50: [id number] 00 Nutrition enteral Nutrition Resolve 2019-11-25 Mercedez therapy d 10-28 11:10:00 Ingrahm 10:50: [id number] 00 Elimination UTI within Eliminatio Resolve 2019-11-05 Mercedez past 14 n d 10-28 10:23:00 Ingrahm days 10:50: [id number] 00 Activity self-care Activity Resolve 2019-11-05 Mercedez deficit d 10-28 10:23:00 Ingrahm 10:50: [id number] 00 Safety fall risk Safety Resolve 2019-11-05 Mercedez factor d 10-28 10:23:00 Ingrahm present 10:50: [id number] 00 Safety risk for Safety Resolve 2019-11-05 Mercedez hospitaliza d 10-28 10:23:00 Ingrahm tion 10:50: [id number] 00 Safety risk for Safety Active Roseline hospitaliza 2-12 [place] tion 11:00: [id number] 00 Nutrition enteral Nutrition Unknown Mercedez therapy 3-05 Ingrahm 08:45: [id number] 00 Integument surgical Integument Active Mercedez wound 3-06 Ingrahm present 08:45: [id number] 00 Neuro depressive Neuro/Emot Active Mercedez feelings ion 3- Ingrahm present 08:45: [id number] 00 Neuro confusion Neuro/Emot Active 2019- Mercedez present ion 3-06 Ingrahm 08:45: [id number] 00 Neuro anxiety Neuro/Emot Active 2019- Mercedez present ion 3- Ingrahm 08:45: [id number] 00 Safety fall risk Safety Active Mercedez factor 3- Ingrahm present 08:45: [id number] 00 Medication potential Meds Active Mercedez clinically 12-24 Ingrahm significant 08:45: [id number] medication 00 issue Allergies, Adverse Reactions, Alerts Allergy Allergy Status Severity Reaction(s) Onset Inactive Treating Comments Name Type Date Date Clinician latex Base Active Unknown Hives Mercedez Ingredient 07-07 [facility] [id number] amoxicillin Base Active Unknown Anaphylaxis Mercedez Ingredient 07-07 [facility] [id number] bee venom Base Active Unknown Anaphylaxis Mercedez protein Ingredient 07-07 Ingrstony [facility] (honey bee) [id number] Botox Medication Active Unknown Anaphylaxis Mercedez Name ID 07-07 [facility] [id number] contrast Unknown Active Unknown Anaphylaxis Mercedez dye 07-07 [facility] [id number] Penicillins Allergen Active Unknown Anaphylaxis 2017- Mercedez Group 07-07 Ingrm [id number] shellfish Base Active Unknown Anaphylaxis Mercedez derived Ingredient 07-07 [facility]grstony [facility] [id number] adhesive Base Active Unknown Hives Mercedez tape Ingredient 07-07 [facility] [id number] nsaids Unknown Active Unknown stomach issues 2017- Mercedez 07-07 Ingrm [id number] oxycodone Base Active Unknown swelling Mercedez Ingredient 07-07 [facility] [id number] Betadine Medication Active Unknown Rash Mercedez Name ID 07-07 Janettest[facility] [id number] Hibiclens Medication Active Unknown Rash Mercedez Name ID 07-07 Janettestony [facility] [id number] evironmenta Unknown Active Unknown hay fever, Rea l/seasonal watery eye, 07-07 Guidelli itching, [id number] sneeze, congestion povidone-io Base Active Unknown itching Rea dine Ingredient 07-07 Guidelli [id number] Iodine and Allergen Active Unknown Anaphylaxis Rea Iodide Group 07-07 Guidelli Containing [id number] Products albumin Base Active Unknown Anaphylaxis Rea colloid, Ingredient 07-07 Guidelli human [id number] fentanyl Base Active Unknown hallucinations Rea Ingredient 07-07 Guidelli [id number] Medications Ordered Filled Start Stop Current Ordering [...] Unknown Unknown 75 mg 75 mg 07-07 Tahsia FINCH tablet tablet e morphine morphine 2017- [...]
[2020-01-19] MEDS ORDERED: KCL 20 MEQ/100 ML IVPREMIX* 20 MEQ/100 ML BAG IV SCH (09:00)
[2020-01-19] MEDS ORDERED: Potassium Chloride* LIQUID 20 MEQ/15 ML UDC PO ONE (09:04)
[2020-01-19] MEDS ORDERED: amLODIPine TAB* 5 MG PO ONE (09:10)
[2020-01-19] MEDS ORDERED: Losartan TAB* 25 MG PO ONE (09:11)
[2020-01-19] MEDS ORDERED: Metoprolol Tartrate TAB* 25 MG PO ONE (09:12)
[2020-01-19] MEDS ORDERED: Metoclopramide IV* 5 MG/ML 2 ML VIAL IV ONE (09:30)
[2020-01-19] MEDS ORDERED: Morphine 10 MG/ML VIAL (1 ml) IV ONE (09:31)
[2020-01-19] MEDS: KCL 20 MEQ/100 ML IVPREMIX* 20 MEQ/100 ML BAG IV SCH ×2 (12:08→13:26)
[2020-01-19 15:47] LABS: BUN/Creatinine Ratio 24.1 (8-20); Calcium 8.4 mg/dL (8.6-10.3); EGFR African American 126.6 (>60); EGFR Non-African American 104.7 (>60); Magnesium 1.9 mg/dL (1.9-2.7); Potassium 4.3 mmol/L (3.5-5.0)
[2020-01-19 15:50] VITALS: BP 200/99
--- NOTE | 2020-01-19 19:13 | CONS ---
CONSULTATION REPORT: DATE OF CONSULT: 01/19/20 - EMERGENCY DEPT PROVIDER: CRISTINA Coronado ATTENDING PHYSICIAN WHILE IN THE HOSPITAL: Rylee Pepper MD (dictated by CRISTINA Coronado) REQUESTING PHYSICIAN: Dionicio White MD CHIEF COMPLAINT: Nausea and abdominal pain. HISTORY OF PRESENT ILLNESS: Isabel Prasad is a 64-year-old white female with past medical history significant for end-stage achalasia, gastroparesis, coronary artery disease, hypertension, chronic tobacco use, COPD, and a GJ tube in place, who presents to the emergency department today due to 2 to 3 days of abdominal pain, nausea, and frequent retching. The patient takes chronic opiates for her chronic abdominal pain and has history of frequent hospitalizations with same symptomatology and was recently discharged from this facility on 12/23/19 again for hospitalization for the same presentation. The patient has a GJ tube in place because of her end-stage achalasia and is advised by multiple providers to use that tube if she is feeling any sort of abdominal discomfort; however, she is known to continue eating by mouth and avoid her gastric tube feeding. It appears this is the case at this time as well. The patient tells me that she started feeling abdominal discomfort approximately 2 to 3 days ago and she has been feeling nauseous and has been frequently retching since then. She has not vomited. She was able to keep down p.o. liquids. She was attempting to eat during this time, but did not eat today or yesterday evening. She has not attempted any of her Jevity feeds in several days and she has had difficulty with attempting to use it today because it is clogged. She tells me she flushes it after every time she used it, but there is an evident large occlusion of tube feed that is brown and has likely been in there for several days. Dr. White asked the hospitalist to evaluate the patient due to her electrolyte abnormalities. The patient denies fever, chills, diarrhea, constipation, chest pain, difficulty breathing. During her time in the emergency department, I additionally added IV morphine for pain control. The nurses were able to flush the blockage out of one of the lumens of her GJ tube, but the other was still blocked and I used a PEG tube cleaning brush to dislodge the occluded contents of the tube from the other lumen with good success. PAST MEDICAL HISTORY: 1. End-stage achalasia with GJ tube in place status post multiple esophageal surgeries and dilations. 2. Gastroparesis. 3. DVT, PE. 4. Coronary artery disease. 5. Hyperlipidemia. 6. TIA. 7. COPD. 8. Tobacco use. 9. Hypertension. 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 11. GERD. 12. Right breast cancer history. PAST SURGICAL HISTORY: 1. GJ tube in place. 2. Esophageal dilation. 3. PCI x2. 4. Godwin fundoplication. 5. Partial hysterectomy. 6. Left knee replacement. 7. Hiatal hernia repair x2. 8. Breast lumpectomy. HOME MEDICATIONS: 1. Metoprolol tartrate 25 mg p.o. b.i.d. 2. Famotidine 20 mg per J-tube daily p.r.n. acid reflux. 3. Narcan 4 mg both nares once p.r.n. overdose. 4. Folic acid 1 mg p.o. daily. 5. Imdur 30 mg p.o. daily. 6. Morphine sulfate 60 mg p.o. q.8 hours p.r.n. pain. 7. Lipitor 40 mg p.o. at bedtime. 8. Pantoprazole 40 mg p.o. daily. 9. Nitroglycerin 0.4 mg sublingual q.5 minutes p.r.n. angina. 10. Carisoprodol 350 mg p.o. 4 times a day p.r.n. muscle spasms. 11. Zofran 4 mg p.o. q.8 hours p.r.n. nausea, vomiting. 12. Vitamin B12 injection 1 mL IM monthly. 13. Plavix 75 mg p.o. daily. 14. Losartan 100 mg p.o. daily. 15. Allergy eye drops 1 drop both eyes b.i.d. p.r.n. allergy symptoms. 16. Epinephrine 0.3 mg IM once p.r.n. anaphylaxis. 17. Levocetirizine 5 mg p.o. at bedtime p.r.n. allergy symptoms. 18. Fluticasone nasal spray 2 sprays both nares daily. 19. Nicotine nasal spray 10 mg both nares 4 times a day p.r.n. cravings. 20. Jevity 1.5 Pineda liquid 1185 mL per J-tube daily. 21. Amlodipine 10 mg p.o. daily. 22. Thiamine 100 mg p.o. daily. 23. Multivitamin 1 tab p.o. daily. 24. Mupirocin 2% cream 1 application topically b.i.d. 25. Ativan 0.25 to 0.5 mg p.o. at bedtime p.r.n. anxiety. 26. Albuterol 2 puffs inhaled q.4 hours p.r.n. shortness of breath or wheezing. 27. Ipratropium inhaler 2 puffs inhaled q.6 hours p.r.n. shortness of breath or wheezing. 28. Spironolactone 25 mg p.o. daily. 29. Spiriva 2 inhalations daily. 30. Hydromorphone 8 mg p.o. q.4 hours p.r.n. pain. 31. Azelastine 2 sprays both nares daily. 32. Mometasone 2 sprays both nares daily. ALLERGIES: 1. Anaphylactic shock to HUMAN ALBUMIN. 2. Anaphylactic shock to BEE VENOM. 3. Hallucinations from BENADRYL. 4. Anaphylactic shock to CONTRAST. 5. Anaphylactic shock to BOTOX. 6. Anaphylactic shock to PENICILLINS. 7. Anaphylactic shock to SHELLFISH. 8. Itching to ADHESIVE TAPE. 9. Rash and itching to CHLORHEXIDINE. 10. Hives to LATEX. 11. Hives to NSAIDS. 12. Itching to POVIDONE-IODINE. 13. Unknown reaction to OXYCODONE. 14. Hallucinations to FENTANYL. 15. Itching to GADOLINIUM. SOCIAL HISTORY: The patient is a smoker. She lives alone. FAMILY HISTORY: Her mother of heart disease in her 80s and her father at age 54 of unclear etiology, but possibly heart disease as well. REVIEW OF SYSTEMS: An 11-point review of systems was completed. All pertinent positives and negatives are above in the HPI. All other systems are negative. PHYSICAL EXAMINATION: Vital Signs: Temperature 97.7, pulse rate 74, respiratory rate 22, oxygen saturation 95% on room air, blood pressure 227/128, later 146/84. General: Thin, elderly white female who appears older than stated age, lying in hospital bed, appearing comfortable, in no acute distress. Eyes: PERRL. Sclerae anicteric. ENT: Lips appear dry. Lungs: Clear to auscultation throughout. Cardio: Regular rate and rhythm without murmurs, rubs , or gallops. Abdomen: Soft, nontender, nondistended. Extremities: No clubbing, cyanosis, or edema. Extremities are thin. Neuro: The patient is alert and oriented x3. Able to move all extremities. Answers to questions appropriately. PERTINENT STUDIES/LAB DATA: White blood cell count 10.7, hemoglobin 14.8, hematocrit 43, platelet count 319. Sodium 129, potassium 3.1 and later 4.3, chloride 93, carbon dioxide 21, anion gap 15 and then later 11, BUN 19, creatinine 0.76, glucose 175. Lactic acid 2.9, then later 2.4. Magnesium 1.5, then later 1.9. LFTs were unremarkable. Chest x-ray, no acute cardiopulmonary disease. EKG, no ST depressions or elevations, there are T-wave inversions in V1 through V3, though on her EKG on 12/21/19 those T-wave inversions in V2 and V1 were already present, heart rate 76 beats per minute with normal sinus rhythm. ASSESSMENT AND PLAN: Isabel Prasad is a 64-year-old white female with past medical history significant for end-stage achalasia with GJ tube placement, gastroparesis, coronary artery disease, chronic obstructive pulmonary disease, hypertension, who presented to the emergency department today due to abdominal pain, nausea. I recommended that Dr. White discharge her to home from the emergency department. The patient's GJ tube is no longer occluded and she has been able to tolerate medications through this tube as well as flushes and her symptoms are minimally improved. She does have this issue chronically and this is why she is advised to stop eating food by mouth during these times and to use her tube feeds. She has been advised of this again today. Additionally, we did discuss having [facility] following her as an outpatient. She was interested and the social media content specialist, Paz, did start a referral for this palliative care program. Additionally, the patient arrived with hypertensive urgency. Her blood pressure is elevated, though this is likely due to being unable to take medications for several days. This did improve with IV hydralazine, but additionally she was given her home medications through her feeding tube and her BP did decrease. The patient was advised to flush her feeding tube frequently and after every single time she uses it for feedings or for medications. She can return to the emergency department if she is experiencing vomiting to the point of not being able to keep down any liquids, though to this point she should be using her gastric tube at that time, or if she is experiencing fevers, chills, chest pain, difficulty breathing. Dr. White is in agreement with this plan. Her electrolytes have been replaced and are now within normal limits and I have no concern regarding her minimally elevated lactic acid as this is likely due to her acute dehydration and it did improve with IV normal saline. DISPOSITION: Reccomend discharge to home. This case has been reviewed by my attending physician, Dr. Rylee Pepper, and she agrees with the plan of care. TIME SPENT: Approximately 75 minutes was spent on this consultation, approximately half of this time was spent at bedtime evaluating the patient, discussing the plan of care, and providing feeding tube care. CRISTINA CORONADO [id number]/[facility] #: [id number] MTDD
== END 2020-01-19 15:51 | disposition home or self-care (01) ==
LOC: ED 07:33
DX: R07.9 Chest pain, unspecified (principal); R11.2 Nausea with vomiting, unspecified; R10.9 Unspecified abdominal pain; I10 Essential (primary) hypertension; J44.9 Chronic obstructive pulmonary disease, unspecified; I25.2 Old myocardial infarction; K21.9 Gastro-esophageal reflux disease without esophagitis; E87.8 Other disorders of electrolyte and fluid balance, not elsewhere classified; R06.02 Shortness of breath; G89.29 Other chronic pain; Z85.3 Personal history of malignant neoplasm of breast; Z88.0 Allergy status to penicillin; Z88.6 Allergy status to analgesic agent; Z79.899 Other long term (current) drug therapy; Z79.01 Long term (current) use of anticoagulants; Z95.5 Presence of coronary angioplasty implant and graft; Z86.718 Personal history of other venous thrombosis and embolism; Z87.442 Personal history of urinary calculi; Z86.73 Personal history of transient ischemic attack (TIA), and cerebral infarction without residual deficits; Z93.1 Gastrostomy status; F17.210 Nicotine dependence, cigarettes, uncomplicated; R94.31 Abnormal electrocardiogram [ECG] [EKG]
CPT/HCPCS: 36415; 71045; 80048; 80053; 83605; 83690; 83735; 84484; 85025; 93005; 99285; A9270-GY; J0360; J1170; J1642; J2270; J2405; J2765; J3475; J3480

== ENCOUNTER 2020-01-20 20:02 | Inpatient (IN) | payer OTHER ==
--- NOTE | 2020-01-20 20:10 | ED ---
Complex/Multi-Sys Presentation - HPI Summary HPI Summary: 64 year old F presenting to [facility] via EMS with a chief complaint of intermittent chest pain that is worsening today. Patient reports a cough and diaphoresis. The patient rates the pain 10/10 in severity. Symptoms aggravated by nothing. Symptoms alleviated by nothing. Patient denies any vomiting, pain or swelling in her legs, or fever. The patient was here yesterday and had her feeding tube unclogged and fluids, then was discharged. She was advised by Dr. Combs to come to the emergency department for further evaluation. The patient has a history of achalasia. Medication list reviewed. Allergy list reviewed. Home Medications Medication Instructions Recorded Confirmed Type Cyanocobalamin INJ * [Vitamin B12 1 ml IM MONTHLY 05/31/15 01/19/20 History INJ *] Ondansetron ODT TAB* [Zofran 4 MG 4 mg PO Q8HR PRN 07/23/17 01/19/20 History Odt TAB*] Nitroglycerin TAB 0.4 MG* 0.4 mg SL Q5M PRN #30 tab 04/19/18 01/19/20 Rx Pantoprazole TAB * [Protonix TAB*] 40 mg PO DAILY #0 11/14/18 01/19/20 History Carisoprodol TAB* [Soma TAB*] 350 mg PO QID PRN 12/12/18 01/19/20 History Clopidogrel TAB* [Plavix TAB*] 75 mg PO DAILY 12/12/18 01/19/20 History amLODIPine TAB* [Norvasc 5 mg TAB*] 10 mg PO DAILY 12/12/18 01/19/20 History Folic Acid TAB* [Folvite TAB*] 1 mg PO DAILY 02/26/19 01/19/20 History HYDROmorphone TAB* [Dilaudid Tab*] 8 mg PO Q4H PRN MDD 12 tabs 02/26/19 History Albuterol HFA INHALER* [Ventolin 2 puff INH Q4H PRN 06/12/19 01/19/20 History HFA Inhaler*] EPINEPHrine [Epipen 2-Godwin] 0.3 mg IM ONCE PRN 06/12/19 01/19/20 History Famotidine TAB* [Pepcid 20 MG TAB*] 20 mg J TUBE DAILY PRN 06/12/19 01/19/20 History Ketotifen Fumarate [Allergy Eye 1 drop BOTH EYES BID PRN 06/12/19 01/19/20 History Drops] LORazepam TAB(*) [Ativan 0.5 MG 0.25 - 0.5 mg PO BEDTIME PRN 06/12/19 01/19/20 History TAB (*)] Lactose-Reduced Food/Fiber [Jevity 1,185 ml J TUBE DAILY 06/12/19 01/19/20 History 1.5 [place] Liquid] Nicotine [Nicotrol NS 10 MG/ML 10 mg NASAL QID PRN 06/12/19 01/19/20 History NASAL SPRAY] Isosorbide Mononitrate ER TAB* 30 mg PO DAILY 07/16/19 01/19/20 History [Imdur ER TAB*] Spironolactone 25 mg PO DAILY 09/08/19 01/19/20 History Metoprolol Tartrate TAB* 25 mg PO BID tab 09/10/19 01/19/20 Rx [Lopressor TAB*] Losartan Potassium 100 mg PO DAILY 10/25/19 01/19/20 History Fluticasone NASAL SPRAY 50MCG* 2 spray BOTH NARES DAILY 12/19/19 01/19/20 History [Flonase NASAL SPRAY 50MCG*] Levocetirizine Dihydrochloride 5 mg PO BEDTIME PRN 12/19/19 01/19/20 History [Xyzal] Multivitamins/Minerals TAB* 1 tab PO DAILY 12/19/19 01/19/20 History [Theragran/minerals TAB*] Thiamine HCl [Vitamin B-1] 100 mg PO DAILY 12/19/19 01/19/20 History Atorvastatin* [Lipitor 40 MG*] 40 mg PO BEDTIME 01/19/20 01/19/20 History Azelastine HCl 2 spray BOTH NARES DAILY 01/19/20 01/19/20 History Ipratropium HFA INHALER(NF) 2 puff INH Q6H PRN 01/19/20 01/19/20 History [Atrovent Hfa Inhaler(NF)] Mometasone NASAL (NF) [Nasonex 2 spray BOTH NARES DAILY 01/19/20 01/19/20 History (NF)] Morphine Sulfate [Morphine Sulfate 60 mg PO Q8H PRN 01/19/20 01/19/20 History ER] Mupirocin 2% CREAM* [Bactroban 2% 1 applic TOPICAL BID 01/19/20 01/19/20 History CREAM*] Naloxone Nasal [place]* [Narcan 4 mg BOTH NARES ONCE PRN 01/19/20 01/19/20 History Nasal [place]] Tiotropium [place] [Spiriva 2 inh PO DAILY PRN 01/19/20 01/19/20 History Respimat] - History Of Current Complaint Time Seen by Provider: 01/20/20 20:03 Hx Obtained From: Patient, EMS Onset/Duration: Still Present Timing: Constant Aggravating Factor(s): None Alleviating Factor(s): None Associated Signs And Symptoms: Positive: Cough, Diaphoresis. Negative: Vomiting , Fever - Allergies/Home Medications Allergies/Adverse Reactions: Allergies Allergy/AdvReac Type Severity Reaction Status Date / Time albumin colloid, human Allergy Severe Anaphylatic Verified 12/19/19 17:01 Shock bee venom protein (honey bee) Allergy Severe Anaphylatic Verified 12/19/19 17:01 Shock diphenhydramine Allergy Severe Hallucinati Verified 12/19/19 17:01 [From Benadryl] ons Iodinated Contrast Media Allergy Severe Anaphylatic Verified 12/19/19 17:01 [Iodinated Contrast- Oral Shock and IV Dye] onabotulinumtoxinA Allergy Severe Anaphylatic Verified 12/19/19 17:01 [From Botox] Shock Penicillins Allergy Severe Anaphylatic Verified 12/19/19 17:01 Shock shellfish derived Allergy Severe Anaphylatic Verified 12/19/19 17:01 Shock Adhesive Tape Allergy Mild Itching Verified 12/19/19 17:01 chlorhexidine Allergy Mild Rash And Verified 12/19/19 17:01 Itching latex Allergy Mild Hives Verified 12/19/19 17:01 NSAIDS (Non-Steroidal Allergy Mild Hives Verified 12/19/19 17:01 Anti-Inflamma povidone-iodine Allergy Mild Itching Verified 12/19/19 17:01 oxycodone Allergy Unknown Unknown Verified 12/19/19 17:01 Reaction Details fentanyl Allergy Hallucinati Verified 12/19/19 17:01 ons Gadolinium-Containing Allergy Itching Verified 12/19/19 17:01 Contrast Medi ENVIRONMENTAL/SEASONAL Allergy Mild ITCHY,WATERY Uncoded 05/27/19 10:29 HAYFEVER EYES, SNEEZE, CONGESTION Home Medications: Home Medications Cyanocobalamin INJ * [Vitamin B12 INJ *] 1 ml IM MONTHLY 05/31/15 [History Confirmed 01/20/20] Ondansetron ODT TAB* [Zofran 4 MG Odt TAB*] 4 mg PO Q8HR PRN 07/23/17 [History Confirmed 01/20/20] Nitroglycerin TAB 0.4 MG* 0.4 mg SL Q5M PRN #30 tab 04/19/18 [Rx Confirmed 01/19] Pantoprazole TAB * [Protonix TAB*] 40 mg PO DAILY #0 11/14/18 [History Confirmed 01/20/20] Carisoprodol TAB* [Soma TAB*] 350 mg PO QID PRN 12/12/18 [History Confirmed 11/09] Clopidogrel TAB* [Plavix TAB*] 75 mg PO DAILY 12/12/18 [History Confirmed ] amLODIPine TAB* [Norvasc 5 mg TAB*] 10 mg PO DAILY 12/12/18 [History Confirmed 01/20/20] Folic Acid TAB* [Folvite TAB*] 1 mg PO DAILY 02/26/19 [History Confirmed ] HYDROmorphone TAB* [Dilaudid Tab*] 8 mg PO Q4H PRN MDD 12 tabs 02/26/19 [ History Confirmed 01/20/20] Albuterol HFA INHALER* [Ventolin HFA Inhaler*] 2 puff INH Q4H PRN 06/12/19 [ History Confirmed 01/20/20] EPINEPHrine [Epipen 2-Godwin] 0.3 mg IM ONCE PRN 06/12/19 [History Confirmed ] Famotidine TAB* [Pepcid 20 MG TAB*] 20 mg J TUBE DAILY PRN 06/12/19 [History Confirmed 01/20/20] Ketotifen Fumarate [Allergy Eye Drops] 1 drop BOTH EYES BID PRN 06/12/19 [ History Confirmed 01/20/20] LORazepam TAB(*) [Ativan 0.5 MG TAB (*)] 0.25 - 0.5 mg PO BEDTIME PRN 06/12/19 [ History Confirmed 01/20/20] Lactose-Reduced Food/Fiber [Jevity 1.5 [place] Liquid] 1,185 ml J TUBE DAILY [History Confirmed 01/20/20] Nicotine [Nicotrol NS 10 MG/ML NASAL SPRAY] 10 mg NASAL QID PRN 06/12/19 [ History Confirmed 01/20/20] Isosorbide Mononitrate ER TAB* [Imdur ER TAB*] 30 mg PO DAILY 07/16/19 [History Confirmed 01/20/20] Spironolactone 25 mg PO DAILY 09/08/19 [History Confirmed 01/20/20] Metoprolol Tartrate TAB* [Lopressor TAB*] 25 mg PO BID tab 09/10/19 [Rx Confirmed 01/20/20] Losartan Potassium 100 mg PO DAILY 10/25/19 [History Confirmed 01/20/20] Fluticasone NASAL SPRAY 50MCG* [Flonase NASAL SPRAY 50MCG*] 2 spray BOTH NARES DAILY 12/19/19 [History Confirmed 01/20/20] Levocetirizine Dihydrochloride [Xyzal] 5 mg PO BEDTIME PRN 12/19/19 [History Confirmed 01/20/20] Multivitamins/Minerals TAB* [Theragran/minerals TAB*] 1 tab PO DAILY 12/19/19 [ History Confirmed 01/20/20] Thiamine HCl [Vitamin B-1] 100 mg PO DAILY 12/19/19 [History Confirmed 01/20/20] Atorvastatin* [Lipitor 40 MG*] 40 mg PO BEDTIME 01/19/20 [History Confirmed 11/09] Azelastine HCl 2 spray BOTH NARES DAILY 01/19/20 [History Confirmed 01/20/20] Ipratropium HFA INHALER(NF) [Atrovent Hfa Inhaler(NF)] 2 puff INH Q6H PRN [History Confirmed 01/20/20] Mometasone NASAL (NF) [Nasonex (NF)] 2 spray BOTH NARES DAILY 01/19/20 [History Confirmed 01/20/20] Morphine Sulfate [Morphine Sulfate ER] 60 mg PO Q8H PRN 01/19/20 [History Confirmed 01/20/20] Mupirocin 2% CREAM* [Bactroban 2% CREAM*] 1 applic TOPICAL BID 01/19/20 [ History Confirmed 01/20/20] Naloxone Nasal [place]* [Narcan Nasal [place]] 4 mg BOTH NARES ONCE PRN 01/19/20 [ History Confirmed 01/20/20] Tiotropium [place] [Spiriva Respimat] 2 inh PO DAILY PRN 01/19/20 [History Confirmed 01/20/20] Morphine ORAL.CONC BULK BOT* [Roxanol ORAL.CONC Bottle*] 1 mg PO BID PRN [History Confirmed 01/20/20] PMH/Surg Hx/FS Hx/Imm Hx Endocrine/Hematology History: Reports: Hx Anticoagulant Therapy - plavix, Hx Anemia - possible Denies: Hx Diabetes, Hx Thyroid Disease Cardiovascular History: Reports: Hx Angina - has prn nitro, Hx Coronary Artery Disease - 2 stents- RCA stent 2006, LAD stent 2007, Hx Deep Vein Thrombosis, Hx Embolism, Hx Hypertension, Hx Myocardial Infarction, Hx Syncope, Other Cardiovascular Problems/Disorders - cardiac cath Denies: Hx Congestive Heart Failure, Hx Hypercholesterolemia, Hx Pacemaker/ ICD, Hx Valvular Heart Disease Respiratory History: Reports: Hx Chronic Obstructive Pulmonary Disease (COPD) - Pt denies though providers have diagnosed it, Hx Pneumonia, Hx Pulmonary Embolism - and DVT 30 yrs ago, Hx Seasonal Allergies, Other Respiratory Problems /Disorders - SMOKER Denies: Hx Asthma, Hx Sleep Apnea GI History: Reports: Hx Diverticulosis, Hx Gastroesophageal Reflux Disease, Hx Hiatal Hernia - 3 surgeries, Other GI Disorders - achalasia, Fernández's esophagus , gastroparesis, J tube Denies: Hx Ulcer History: Reports: Hx Kidney Infection, Hx Kidney Stones - LAST 12/2015- NO PROBLEMS SINCE PER PATIENT Denies: Hx Dialysis, Hx Renal Disease, Other Problems/Disorders Musculoskeletal History: Reports: Hx Back Problems, Other Musculoskeletal History - L1 fx Denies: Hx Arthritis, Hx Osteoporosis Sensory History: Reports: Hx Cataracts - bilat cataracts, Hx Contacts or Glasses Denies: Hx Hearing Aid Opthamlomology History: Reports: Hx Cataracts - bilat cataracts, Hx Contacts or Glasses Neurological History: Reports: Hx Spinal Cord Injury - L1, Hx Transient Ischemic Attacks (TIA) - 10/2017 [facility] [place] Psychiatric History: Reports: Hx Anxiety Denies: Hx Panic Disorder - Cancer History Cancer Type, Location and Year: RT BREAST CA, 2009 HAD A BILATERAL MASTECTOMY Hx Chemotherapy: No Hx Radiation Therapy: No - Surgical History Surgery Procedure, Year, and Place: RT LUMPECTOMY 02/2010, BILATERAL MASTECTOMY ,. 2006& 2007 CARDIAC STENT AT [facility] IN [place],. LEFT KNEE SURGERY X10,. BILATERAL SHOULDER SURGERY,. ESPOHOGEAL SURGERY,1996, 2015. Hysterectomy, pt estimated 1977. failed breast implant on left. PARTIAL HYSTERECTOMY, 1976. APPENDIX A CHILD,. CHEST TUBE, 1996. ESOPHAGEAL DILATION. NISSIN FUNDOLPICATION multiple. total left knee replacement 2015. kidney stone surgery. left chest wound surgery 2010. Insertion [place] 2017 Hx Anesthesia Reactions: No - Immunization History Date of Tetanus Vaccine: utd Date of Influenza Vaccine: fall 2016 Infectious Disease History: Reports: Hx Clostridium Difficile Denies: Hx Hepatitis, Hx Human Immunodeficiency Virus (HIV), Hx of Known/ Suspected MRSA, Hx Shingles, Hx Tuberculosis, Hx Known/Suspected VRE, Hx Known/ Suspected VRSA, History Other Infectious Disease - Family History Known Family History: Positive: Cardiac Disease - Father, 2 brothers - [place]. Mother - AFIB, Hypertension, Diabetes - Social History Alcohol Use: None Hx Substance Use: No Substance Use Type: Reports: None Substance Use Comment - Amount & Last Used: prescribed Hx Tobacco Use: Yes Smoking Status (MU): Current Every Day Smoker Type: Cigarettes Amount Used/How Often: 1/2 PPD Length of Time of Smoking/Using Tobacco: 40+ YEARS Have You Smoked in the Last Year: Yes Review of Systems Positive: Skin Diaphoresis. Negative: Fever Positive: Chest Pain Positive: Cough Negative: Vomiting Musculoskeletal: Negative - Leg pain or swelling All Other Systems Reviewed And Are Negative: Yes Physical Exam - Summary Physical Exam Summary: Constitutional: Well-developed, Well-nourished, Alert. (-) Distressed Skin: Warm, Dry HENT: Normocephalic; Atraumatic Eyes: Conjunctiva normal Neck: Musculoskeletal ROM normal neck. (-) JVD, (-) Stridor, (-) Tracheal deviation Cardio: Rhythm regular, rate normal, Heart sounds normal; Intact distal pulses; Radial pulses are 2+ and symmetric. (-) Murmur Pulmonary/Chest wall: Effort normal. (-) Respiratory distress, (-) Wheezes, (-) Rales, oxygen saturation is 94% on room air. Abd: Soft, (-) tenderness, (-) Distension, (-) Guarding, (-) Rebound Musculoskeletal: (-) Edema Lymph: (-) Cervical adenopathy Neuro: Alert, Oriented x3 Psych: Mood and affect Normal Triage Information Reviewed: Yes Vital Signs Reviewed: Yes Procedures - Sedation Patient Received Moderate/Deep Sedation with Procedure: No Diagnostics - Laboratory Result Diagrams: 01/20/20 20:34 01/20/20 20:34 Lab Statement: Any lab studies that have been ordered have been reviewed, and results considered in the medical decision making process. - Radiology Chest x-ray Radiology Interpretation Completed By: ED Physician Summary of Radiographic Findings: Right breast implant, unchanged from yesterday. ED physician has reviewed and interpreted this report. - EKG 20:24 Cardiac Rate: NL - 77 BPM EKG Rhythm: Sinus Rhythm Summary of EKG Findings: Unchanged from EKG yesterday. ED physician has reviewed and interpreted this EKG. Complex Multi-Symp Course/Dx Course Of Treatment: Patient is here with chest pain and shortness of breath. Patient was seen here yesterday for similar complaint and was discharged. Patient does have a history of ACS in the past but did have a stress test one month ago which was negative. During that admission, patient had a VQ scan which showed a mismatched segment but was read as low risk overall. Due to patient's repeat visit and worsening symptoms, testing was ordered. Patient had an elevated troponin of 0.03 which is new compared to labs yesterday. Patient has had an elevated troponin in the past. Patient had a d-dimer sent which was positive. Was 94% on room air. Patient had no EKG changes compared to yesterday. Patient's hyponatremia is worsening from 127 to 123. Given patient's worsening lab values, elevated troponin, and need for a repeat VQ scan , patient was admitted to the hospital - Diagnoses Provider Diagnoses: Chest pain, Elevated d-dimer, Elevated troponin, Hyponatremia, Achalasia - Physician Notifications Discussed Care Of Patient With: Jazmin Reynolds Time Discussed With Above Provider: 21:37 Instructed by Provider To: Other - Discussed with Dr. Reynolds who accepts the patient for admission. Discharge ED - Sign-Out/Discharge Documenting (check all that apply): Patient Departure - Discharge Plan Condition: Stable Disposition: ADMITTED TO [facility] - Billing Disposition and Condition Condition: STABLE Disposition: Admitted to [facility] - Attestation Statements Document Initiated by Marielyibzakiya: Yes Documenting Scribe: Myra Barragan Provider For Whom Kiarra is Documenting (Include Credential): Sanjay Castro MD Scribe Attestation: Sen, Myra Barragan, scribed for Sanjay Castro MD on 01/20/20 at 2320. Scribe Documentation Reviewed: Yes Provider Attestation: The documentation as recorded by the Myra vyas accurately reflects the service I personally performed and the decisions made by me, Sanjay Castro MD Status of Scribe Document: Viewed
[2020-01-20] MEDS ORDERED: NS 0.9% 1000 ML** 1,000 ML IV ONE (20:15)
[2020-01-20] MEDS ORDERED: Morphine 4 MG/ML VIAL (1 ml) 4 MG/ML VIAL IV ONE (20:15)
[2020-01-20] MEDS ORDERED: Metoclopramide IV* 5 MG/ML 2 ML VIAL IV ONE (20:15)
[2020-01-20 20:52] LABS: ABS Lymphocytes 1.3 10^3/ul (1.0-4.8); ABS Monocytes 1.2 10^3/ul (0-0.8); Eosinophil % 0.1 %; Hematocrit 44 % (35-47); Hemoglobin 14.9 g/dL (12.0-16.0); Lymphocyte % 9.8 %; Mean Corpuscular HGB Conc 34 g/dL (31-36); Mean Corpuscular Hemoglobin 28 pg (27-31); Mean Corpuscular Volume 82 fL (80-97); Nucleated Red Blood Cells % 0.1; Platelet Count 303 10^3/uL (150-450); Red Blood Count 5.41 10^6 /uL (3.70-4.87); Red Cell Distribution Width 16 % (10-15); White Blood Count 13.6 10^3/uL (3.5-10.8)
[2020-01-20 21:01] LABS: ALT 12 U/L (7-52); AST 20 U/L (13-39); Albumin/Globulin Ratio 1.1 (1-3); Alkaline Phosphatase 76 U/L (34-104); Anion Gap 13 mmol/L (2-11); BUN/Creatinine Ratio 32.8 (8-20); Blood Urea Nitrogen 20 mg/dL (6-24); CO2 Carbon Dioxide 18 mmol/L (22-32); Calcium 8.7 mg/dL (8.6-10.3); Chloride 92 mmol/L (101-111); EGFR African American 119.5 (>60); EGFR Non-African American 98.7 (>60); Globulin 3.6 g/dL (2-4); Glucose 118 mg/dL (70-100); Potassium 3.4 mmol/L (3.5-5.0); Sodium 123 mmol/L (135-145); Total Protein 7.6 g/dL (6.4-8.9)
[2020-01-20 21:05] LABS: Troponin I 0.03 ng/mL (<0.03)
[2020-01-20] MEDS ORDERED: Nitroglycerin TAB 0.4 MG* 0.4 MG TAB SL PRN (22:33)
[2020-01-20] MEDS ORDERED: Ondansetron ODT TAB* 4 MG PO PRN (22:33)
[2020-01-20] MEDS ORDERED: Albuterol HFA INHALER* 8 gm MDI INH PRN (22:33)
[2020-01-20] MEDS ORDERED: Ipratropium HFA INHALER(NF) (ALTERNATIVE = NEBS) INH PRN (22:33)
--- NOTE | 2020-01-20 22:39 | HP ---
History of Present Illness - History of Present Illness Reason for Visit: chest pain History of Present Illness: 64 year old F presenting to [facility] with worsening chest pain. She has a hx of CAD with stents placement 5 years ago, and severe achalasia with a feeding tube. She was recently here about a month ago iwth severe epigastric chest pain associated iwth N/V. During that admission, she had a stress test that was normal. Pt discharged to take more morphine at home. She said the pain is similar to that time. It did get better with the higher dose of morphine but she feels that it does not work as well anymore and now she is unable to eat. Pt takes jevity, 5 cans total a day. She presents after being urged by her caregiver to go to the ED. She is weaker, sluggish, and her pain has been debilitating. Her initial lab works is significant for hyponatremia and hypokalemia. This is not the first time she has had electrolyte imbalances. Usually when her oral intake is low despite being on jevity, she said her levels drop. Otherwise today, her Symptoms are aggravated by nothing. Of note, she was here yesterday and had her feeding tube unclogged and fluids, then was discharged. - Past Medical History Cardiac: CAD Pulmonary: COPD Gastrointestinal: Diverticulosis, Gastritis, Other Heme/Onc: Anemia NOS - Past Surgical History Past Surgical History: Total Knee Replacement - Past Family History Family History: CAD - Past Social History Smoke: No Alcohol: None Drugs: None Lives: Alone Domestic Violence: Negative Review of Systems - Measurements Intake and Output: Intake and Output Last 24 Hours 01/18/20 01/19/20 01/20/20 01/21/20 06:59 06:59 06:59 06:59 Intake Total 1000 Balance 1000 Weight 104 lb Intake: IV Fluids 1000 - Review of Systems Constitutional Symptoms: Positive: Weight Loss, Weakness, Fatigue Negative: Weight Gain, Fever, Night Sweats, Unexplained Falls, Other Dermatology: Negative: Normal, Rash, Skin Lesions, Cancer, Skin Lumps, Other HEENT: Negative: Normal, Change in Hearing, Vertigo, Dental Problems, Tinnitus, Sinus Problem, Other Eyes: Negative: Normal, Change in Vision, Double Vision, Eye Pain, Glaucoma, Cataract, Contacts or Glasses, Other Thyroid: Negative: Normal, Goiter, Thyroid Nodule, Cold Intolerance, Heat Intolerance , Sweatiness, Tremor, Frequent Defecation, Constipation, Palpitations, Primary Hypothyroidism, Primary Hyperthyroidism, Weight Loss, Weight Gain, Change in Skin/Hair, Change in Menstruation, Radiation Exposure, Other Pulmonary: Negative: Normal, Cough, Sputum, Hemoptysis, Wheezing, Respiratory Distress, Shortness of Breath, COPD, Asthma, Exercise Intolerance, Home Oxygen, Other Cardiology: Positive: Chest Pain Negative: Normal, Shortness of Breath, Palpitations, Swelling of Ankles, Peripheral Vascular Dis, Edema, Faintness, Syncope, Claudication, Proximal NocturnalDyspnea, Orthopnoea, Other Gastroenterology: Positive: Abdominal Pain, Nausea, Difficulty Swallowing Negative: Normal, Vomiting, Anorexia, Indigestion, Heartburn, Constipation, Diarrhea, Blood in Stools, Change in Bowel Habits, Haematemesis, Melena, Other Genital - Urinary: Negative: Normal, Dysuria, Hematuria, Polyuria, Nocturia, Other Genitourinay - Female: Negative: Menses Normal, Vaginal Discharge, Menopause, Dysmenorrhea, Other Endocrinology: Negative: Normal, Thyroid Problems, Adrenal Problems, Gonadal Problems, Family Hx Endocrine Disorders, Obesity, Diabetes Mellitus, Hyperglycemia, Hx Hypoglycemia, Diabetic Foot Ulcers, Calluses, Hirsutism, Menstrual Abnormalities , Polydipsia, Polyuria, Gonadal Problems, Gynecomastia, Pituitary disease, Other Hematologic/Lymphatic: Negative: Anemia, Easy Bruising, Hx Leukemia, Hx Lymphoma, Use of Anticoagulant, Use of Antiplatelet Drugs, Other Objective Active Medications: Albuterol (Ventolin Hfa Inhaler*) 2 puff INH Q4H PRN PRN Reason: SHORTNESS OF BREATH Amlodipine Besylate (Norvasc Tab*) 10 mg PO DAILY [facility] Atorvastatin Calcium (Lipitor*) 40 mg PO BEDTIME [facility] Clopidogrel Bisulfate (Plavix Tab*) 75 mg PO DAILY [facility] Famotidine (Pepcid Tab*) 20 mg PO DAILY [facility] Fluticasone Propionate (Flonase Nasal Marion 50mcg*) 2 spray BOTH NARES DAILY [facility] Folic Acid (Folvite Tab*) 1 mg PO DAILY [facility] Hydromorphone HCl (Dilaudid Tab*) 8 mg PO Q4H PRN PRN Reason: PAIN Sodium Chloride (Ns 0.9% 1000 Ml) 1,000 mls @ 125 mls/hr IV PER RATE [facility] Ipratropium Purchase (Atrovent Hfa Inhaler(Nf)) 2 puff INH Q6H PRN PRN Reason: SOB/WHEEZING Isosorbide Mononitrate (Imdur Er Tab*) 30 mg PO DAILY [facility] Lorazepam (Ativan Tab(*)) 0.25 - 0.5 mg PO BEDTIME PRN PRN Reason: ANXIETY Metoprolol Tartrate (Lopressor Tab*) 25 mg PO BID [facility] Mometasone Furoate (Nasonex (Nf)) 2 spray BOTH NARES DAILY [facility] Nitroglycerin (Nitroglycerin Tab 0.4 Mg*) 0.4 mg SL Q5M PRN PRN Reason: chest pain Non-Formulary Medication (Losartan Potassium [Losartan Potassium]) 100 mg PO DAILY [facility] Ondansetron HCl (Zofran Odt Tab*) 4 mg PO Q8HR PRN PRN Reason: NAUSEA/VOMITING Pantoprazole Sodium (Protonix Tab*) 40 mg PO DAILY [facility] Ambulatory Orders Cyanocobalamin INJ * [Vitamin B12 INJ *] 1 ml IM MONTHLY 05/31/15 Ondansetron ODT TAB* [Zofran 4 MG Odt TAB*] 4 mg PO Q8HR PRN 07/23/17 Nitroglycerin TAB 0.4 MG* 0.4 mg SL Q5M PRN #30 tab 04/19/18 Pantoprazole TAB * [Protonix TAB*] 40 mg PO DAILY #0 11/14/18 Carisoprodol TAB* [Soma TAB*] 350 mg PO QID PRN 12/12/18 Clopidogrel TAB* [Plavix TAB*] 75 mg PO DAILY 12/12/18 amLODIPine TAB* [Norvasc 5 mg TAB*] 10 mg PO DAILY 12/12/18 Folic Acid TAB* [Folvite TAB*] 1 mg PO DAILY 02/26/19 HYDROmorphone TAB* [Dilaudid Tab*] 8 mg PO Q4H PRN MDD 12 tabs 02/26/19 Albuterol HFA INHALER* [Ventolin HFA Inhaler*] 2 puff INH Q4H PRN 06/12/19 EPINEPHrine [Epipen 2-Godwin] 0.3 mg IM ONCE PRN 06/12/19 Famotidine TAB* [Pepcid 20 MG TAB*] 20 mg J TUBE DAILY PRN 06/12/19 Ketotifen Fumarate [Allergy Eye Drops] 1 drop BOTH EYES BID PRN 06/12/19 LORazepam TAB(*) [Ativan 0.5 MG TAB (*)] 0.25 - 0.5 mg PO BEDTIME PRN Lactose-Reduced Food/Fiber [Jevity 1.5 Pindea Liquid] 1,185 ml J TUBE DAILY 06/12 Nicotine [Nicotrol NS 10 MG/ML NASAL SPRAY] 10 mg NASAL QID PRN 06/12/19 Isosorbide Mononitrate ER TAB* [Imdur ER TAB*] 30 mg PO DAILY 07/16/19 Spironolactone 25 mg PO DAILY 09/08/19 Metoprolol Tartrate TAB* [Lopressor TAB*] 25 mg PO BID tab 09/10/19 Losartan Potassium 100 mg PO DAILY 10/25/19 Fluticasone NASAL SPRAY 50MCG* [Flonase NASAL SPRAY 50MCG*] 2 spray BOTH NARES DAILY 12/19/19 Levocetirizine Dihydrochloride [Xyzal] 5 mg PO BEDTIME PRN 12/19/19 Multivitamins/Minerals TAB* [Theragran/minerals TAB*] 1 tab PO DAILY 12/19/19 Atorvastatin* [Lipitor 40 MG*] 40 mg PO BEDTIME 01/19/20 Azelastine HCl 2 spray BOTH NARES DAILY 01/19/20 Ipratropium HFA INHALER(NF) [Atrovent Hfa Inhaler(NF)] 2 puff INH Q6H PRN Mometasone NASAL (NF) [Nasonex (NF)] 2 spray BOTH NARES DAILY 01/19/20 Morphine Sulfate [Morphine Sulfate ER] 60 mg PO Q8H PRN 01/19/20 Mupirocin 2% CREAM* [Bactroban 2% CREAM*] 1 applic TOPICAL BID 01/19/20 Naloxone Nasal Marion* [Narcan Nasal Marion] 4 mg BOTH NARES ONCE PRN 01/19/20 Tiotropium Purchase [Spiriva Respimat] 2 inh PO DAILY PRN 01/19/20 Morphine ORAL.CONC BULK BOT* [Roxanol ORAL.CONC Bottle*] 1 mg PO BID PRN 01/19 Vital Signs - 8 hr 04/01/20 04/01/20 04/01/20 20:09 20:16 20:17 Temperature 98.2 F Pulse Rate 82 86 81 Respiratory 18 Rate Blood Pressure 197/114 197/114 (mmHg) O2 Sat by Pulse 96 96 97 Oximetry 01/20/20 01/20/20 01/20/20 20:47 21:00 21:18 Temperature Pulse Rate 77 76 81 Respiratory 18 16 22 Rate Blood Pressure 175/108 (mmHg) O2 Sat by Pulse 95 93 94 Oximetry 01/20/20 01/20/20 01/20/20 21:44 21:47 22:00 Temperature Pulse Rate 74 74 Respiratory 18 19 19 Rate Blood Pressure 145/96 (mmHg) O2 Sat by Pulse 94 93 Oximetry 01/20/20 22:17 Temperature Pulse Rate 73 Respiratory 20 Rate Blood Pressure 171/103 (mmHg) O2 Sat by Pulse 94 Oximetry Oxygen Devices in Use Now: None Appearance: sluggish, very weak Eyes: No Scleral Icterus, PERRLA Ears/Nose/Mouth/Throat: NL Teeth, Lips, Gums Neck: NL Appearance and Movements; NL JVP, Trachea Midline Respiratory: Symmetrical Chest Expansion and Respiratory Effort, Clear to Auscultation, Clear to Percussion Cardiovascular: NL Sounds; No Murmurs; No JVD, No Edema Abdominal: NL Sounds; No Tenderness; No Distention Lymphatic: No Cervical Adenopathy Extremities: No Edema, No Clubbing, Cyanosis Skin: No Rash or Ulcers, No Nodules or Sclerosis Neurological: Alert and Oriented x 3, - - generalized weakness Result Diagrams: 01/20/20 20:34 01/20/20 20:34 Assess/Plan/Problems-Billing Assessment: - Patient Problems (1) Chest pain Current Visit: No Status: Acute Onset Date: 07/04/14 Code(s): R07.9 - CHEST PAIN, UNSPECIFIED SNOMED Code(s): 66964074 Comment: - Associated with abdominal pain and nausea as well. Very similar to her previous episodes. she was discharged on morphine last month and she said it has not been helping her - Variable EKG findings, no obvious ischemic changes, she was stressed last month and it was normal. With her hx of CAD and stent placements, will just trend her troponins - the pain is likely 2/2 achalasia -lastly D-dimer elevated, and she had a VQ which was low risk . -will up her pain management. She may need to see GI again (2) Chronic pain Current Visit: No Status: Acute Code(s): G89.29 - OTHER CHRONIC PAIN SNOMED Code(s): 30626175 Comment: - Pt in significant acute on chronic pain at this time. - continue extended release morphine to 60mg TID prn which is her home dose - Continue PRN dilaudid dose. - Continue soma PRN. - She follows outpatient with pain clinic; pain consult ordered for further recommendations (3) Dehydration Current Visit: No Status: Acute Code(s): E86.0 - DEHYDRATION SNOMED Code(s ): 31156426 Comment: hydration overnight BMP Q6H (4) Electrolyte abnormality Current Visit: No Status: Acute Code(s): E87.8 - OTH DISORDERS OF ELECTROLYTE AND FLUID BALANCE, NEC SNOMED Code(s): 739902392 Comment: Hyponatremia, Hypokalemia, and Hypomagnesemia - Replace PRN - Due to Poor oral intake (5) Elevated troponin Current Visit: No Status: Acute Code(s): R74.8 - ABNORMAL LEVELS OF OTHER SERUM ENZYMES SNOMED Code(s): 562346526 Comment: - Troponin elevation, no new EKG changes, worsened chest pain - Stress test normal - V/Q scan low risk (6) Epigastric pain Current Visit: No Status: Acute Code(s): R10.13 - EPIGASTRIC PAIN SNOMED Code(s): 88638845 Comment: -Patient with h/o achalasia, still reporting pain, but improved -Continue pain, nausea management -GI consult requested -Continue NPO until consult (7) Full code status Current Visit: No Status: Acute Onset Date: 01/19/15 Code(s): Z78.9 - OTHER SPECIFIED HEALTH STATUS SNOMED Code(s): 155657843 Comment: (8) GERD (gastroesophageal reflux disease) Current Visit: No Status: Acute Code(s): K21.9 - GASTRO-ESOPHAGEAL REFLUX DISEASE WITHOUT ESOPHAGITIS SNOMED Code(s): 910540864 Comment: Pt also with Barretts esophagus. Continue protonix and famotidine. (9) Achalasia Current Visit: No Status: Chronic Priority: High Code(s): K22.0 - ACHALASIA OF CARDIA SNOMED Code(s): 01009756 Comment: - Continue pain control; pain consult ordered, due to continued uncontrolled pain - tube feeds overnight - Aggressive anti-emetics - Pleasure feeds PRN (10) COPD (chronic obstructive pulmonary disease) Current Visit: No Status: Chronic Code(s): J44.9 - CHRONIC OBSTRUCTIVE PULMONARY DISEASE, UNSPECIFIED SNOMED Code(s): 52981177 Comment: Stable and without any signs of exacerbation. cont prn albuterol (11) HLD (hyperlipidemia) Current Visit: No Status: Chronic Code(s): E78.5 - HYPERLIPIDEMIA, UNSPECIFIED SNOMED Code(s): 90156288 Comment: -continue atorvastatin (12) HTN (hypertension) Current Visit: No Status: Chronic Priority: Medium Code(s): I10 - ESSENTIAL (PRIMARY) HYPERTENSION SNOMED Code(s): 25249659 Comment: continue amlodipine, imdur, losartan and spironolactone. (13) DVT prophylaxis Current Visit: No Status: Acute Priority: Low Onset Date: 01/19/15 Code( s): FRQ1462 - SNOMED Code(s): 843277675 Comment: - SCDs and Lovenox SQ
[2020-01-20] MEDS: Morphine TAB Extended Release (*) 30 MG TAB.ER PO PRN (23:50)
[2020-01-20] MEDS: Enoxaparin(*) 30 MG/0.3 ML SYR SUBCUT SCH (23:51)
[2020-01-20] MEDS: NS 0.9% 1000 ML** 1,000 ML IV SCH (23:51)
[2020-01-21] MEDS ORDERED: Albuterol 2.5 MG/3 ML NEB.SOL* (0.083%) INH PRN (00:27)
[2020-01-21] MEDS ORDERED: Morphine INJ* 4 MG/ML 1 ML SYRINGE (NEW SYRINGE VERSION) IV ONE (01:15)
[2020-01-21] MEDS ORDERED: Ondansetron INJ* 2 MG/ML VIAL IV ONE (01:17)
[2020-01-21] MEDS: hydrALAZINE IV* 20 MG/ML VIAL IV SLOW PU PRN (01:34)
[2020-01-21 02:33] LABS: BUN/Creatinine Ratio 34.5 (8-20); Calcium 7.9 mg/dL (8.6-10.3); EGFR African American 134.6 (>60); EGFR Non-African American 111.3 (>60); Potassium 3.2 mmol/L (3.5-5.0)
[2020-01-21] MEDS: HYDROmorphone TAB* 4 MG PO PRN ×3 (03:17→12:21)
[2020-01-21 04:31] LABS: ABS Lymphocytes 1.3 10^3/ul (1.0-4.8); ABS Neutrophils 8.4 10^3/ul (1.5-7.7); Eosinophil % 0.1 %; Hematocrit 38 % (35-47); Hemoglobin 12.9 g/dL (12.0-16.0); Lymphocyte % 12.2 %; Mean Corpuscular HGB Conc 34 g/dL (31-36); Mean Corpuscular Hemoglobin 28 pg (27-31); Mean Corpuscular Volume 82 fL (80-97); Mean Platelet Volume 7.9 fL (7.4-10.4); Platelet Count 257 10^3/uL (150-450); Red Blood Count 4.67 10^6 /uL (3.70-4.87); Red Cell Distribution Width 16 % (10-15); White Blood Count 10.8 10^3/uL (3.5-10.8)
[2020-01-21] MEDS ORDERED: Ondansetron INJ* 2 MG/ML VIAL IV PRN (06:27)
[2020-01-21] MEDS: Metoclopramide IV* 5 MG/ML 2 ML VIAL IV PRN ×2 (06:45→12:21)
[2020-01-21] MEDS: Isosorbide Mononitrate ER TAB* 30 MG PO SCH (08:56)
[2020-01-21] MEDS: Metoprolol Tartrate TAB* 25 MG PO SCH ×2 (08:56→20:05)
[2020-01-21] MEDS: Losartan TAB* 25 MG PO SCH (08:56)
[2020-01-21] MEDS: Clopidogrel TAB* 75 MG PO SCH (08:56)
[2020-01-21] MEDS: Folic Acid TAB* 1 MG PO SCH (08:56)
[2020-01-21] MEDS: amLODIPine TAB* 5 MG PO SCH (08:57)
[2020-01-21] MEDS: Famotidine TAB* 20 MG PO SCH (08:57)
[2020-01-21] MEDS: Pantoprazole TAB * 40 MG TAB PO SCH (08:57)
[2020-01-21] MEDS: Fluticasone NASAL SPRAY 50MCG* 16 gm SPRAY BTL BOTH NARES SCH (08:57)
[2020-01-21] MEDS: NS 0.9% 1000 ML** 1,000 ML IV SCH ×2 (08:58→20:02)
[2020-01-21] MEDS ORDERED: Mometasone NASAL (NF) SPRAY BOTH NARES SCH (09:00)
[2020-01-21 09:28] LABS: BUN/Creatinine Ratio 35.2 (8-20); Calcium 7.8 mg/dL (8.6-10.3); EGFR African American 137.5 (>60); EGFR Non-African American 113.7 (>60)
[2020-01-21] MEDS: KCL 20 MEQ/100 ML IVPREMIX* 20 MEQ/100 ML BAG IV SCH ×2 (12:20→15:45)
[2020-01-21] MEDS: Morphine TAB Extended Release (*) 30 MG TAB.ER PO PRN (12:21)
--- NOTE | 2020-01-21 14:25 | PN ---
Subjective Date of Service: 01/21/20 Interval History: Patient continues to have severe pain in her epigastric area, worse wth palpation. Patient hasn't had anything to eat. Patient denies F/C, SOB, dysuria , other pain. Patient has been having poor oral intake. Patient has been getting somewhat dizzy on standing but has not passed out. Patient has not seen her [facility] in a large period of time and would be will to go back and discuss palliative procedures. Family History: Unchanged from Admission Social History: Unchanged from Admission Past Medical History: Unchanged from Admission Objective Active Medications: Albuterol (Ventolin 2.5 Mg/3 Ml Neb.Cely*) 2.5 mg INH Q4H PRN PRN Reason: SHORTNESS OF BREATH Amlodipine Besylate (Norvasc Tab*) 10 mg PO DAILY [facility] Last Admin: 01/21/20 08:57 Dose: 10 mg Atorvastatin Calcium (Lipitor*) 40 mg PO BEDTIME [facility] Carisoprodol (Soma Tab*) 350 mg PO QID PRN PRN Reason: SPASMS - MUSCLE Clopidogrel Bisulfate (Plavix Tab*) 75 mg PO DAILY [facility] Last Admin: 01/21/20 08:56 Dose: 75 mg Enoxaparin Sodium (Lovenox(*)) 30 mg SUBCUT BEDTIME [facility] Last Admin: 01/20/20 23:51 Dose: 30 mg Famotidine (Pepcid Tab*) 20 mg PO DAILY [facility] Last Admin: 01/21/20 08:57 Dose: 20 mg Fluticasone Propionate (Flonase Nasal [place] 50mcg*) 2 spray BOTH NARES DAILY [facility] Last Admin: 01/21/20 08:57 Dose: 2 spray Folic Acid (Folvite Tab*) 1 mg PO DAILY [facility] Last Admin: 01/21/20 08:56 Dose: 1 mg Hydralazine HCl (Apresoline Iv*) 5 mg IV SLOW PU Q6H PRN PRN Reason: BLOOD PRESSURE Last Admin: 01/21/20 01:34 Dose: 5 mg Hydromorphone HCl (Dilaudid Tab*) 8 mg PO Q4H PRN PRN Reason: PAIN Last Admin: 01/21/20 12:21 Dose: 8 mg Sodium Chloride (Ns 0.9% 1000 Ml) 1,000 mls @ 125 mls/hr IV PER RATE [facility] Last Admin: 01/21/20 08:58 Dose: 125 mls/hr Potassium Chloride (Potassium Chloride 20 Meq/100 Ml Ivpremix*) 20 meq in 100 mls @ 50 mls/hr IV Q2H [facility] Stop: 01/21/20 14:59 Last Admin: 01/21/20 12:20 Dose: 50 mls/hr Isosorbide Mononitrate (Imdur Er Tab*) 30 mg PO DAILY [facility] Last Admin: 01/21/20 08:56 Dose: 30 mg Lorazepam (Ativan Tab(*)) 0.25 mg PO BEDTIME PRN PRN Reason: ANXIETY Losartan Potassium (Cozaar Tab*) 100 mg PO DAILY [facility] Last Admin: 01/21/20 08:56 Dose: 100 mg Metoclopramide HCl (Reglan Iv*) 5 mg IV Q6H PRN PRN Reason: NAUSEA/VOMITING Last Admin: 01/21/20 12:21 Dose: 5 mg Metoprolol Tartrate (Lopressor Tab*) 25 mg PO BID [facility] Last Admin: 01/21/20 08:56 Dose: 25 mg Morphine Sulfate (Ms Contin(*)) 60 mg PO Q8H PRN PRN Reason: PAIN - MODERATE Last Admin: 01/21/20 12:21 Dose: 60 mg Nitroglycerin (Nitroglycerin Tab 0.4 Mg*) 0.4 mg SL Q5M PRN PRN Reason: chest pain Ondansetron HCl (Zofran Inj*) 4 mg IV Q6H PRN PRN Reason: NAUSEA Pantoprazole Sodium (Protonix Tab*) 40 mg PO DAILY [facility] Last Admin: 01/21/20 08:57 Dose: 40 mg Vital Signs - 8 hr 01/21/20 01/21/20 01/21/20 07:15 07:39 10:08 Temperature 98.3 F Pulse Rate 71 Respiratory 16 18 18 Rate Blood Pressure 196/92 (mmHg) O2 Sat by Pulse 96 Oximetry 01/21/20 12:21 Temperature Pulse Rate Respiratory 18 Rate Blood Pressure (mmHg) O2 Sat by Pulse Oximetry Oxygen Devices in Use Now: None Appearance: Patient is a 64yo female who appears older than stated age and is sitting in the bed in [facility]. Eyes: No Scleral Icterus, PERRLA Ears/Nose/Mouth/Throat: NL Teeth, Lips, Gums, Clear Oropharnyx, - - Dry Mucus Membrane Neck: NL Appearance and Movements; NL JVP, Trachea Midline Respiratory: Symmetrical Chest Expansion and Respiratory Effort, Clear to Auscultation Cardiovascular: NL Sounds; No Murmurs; No JVD, RRR, No Edema Abdominal: No Hepatosplenomegaly, - - Epigastric tenderness. Lymphatic: No Cervical Adenopathy Extremities: No Edema, No Clubbing, Cyanosis Skin: No Rash or Ulcers, No Nodules or Sclerosis Neurological: Alert and Oriented x 3, NL Sensation, NL Muscle Strength and Tone , - - CN II-XII intact. Result Diagrams: 01/21/20 04:23 01/21/20 08:38 Assess/Plan/Problems-Billing Assessment: Patient is a 64yo female with a PMH for chronic pain due to achalasia, CAD with LA, PE, here with intractable abdominal pain and dehydration with electrolyte derangements. - Patient Problems (1) Chronic pain Current Visit: No Status: Acute Code(s): G89.29 - OTHER CHRONIC PAIN SNOMED Code(s): 55579644 Comment: - Pt in significant acute on chronic pain at this time. - continue extended release morphine to 60mg TID prn which is her home dose - Continue PRN dilaudid IV - Continue soma PRN. May need to schedule. - She follows outpatient with pain clinic; pain consult appreciated - Will need to follow up with outpatient GI to discuss further treatment possibilities as she has incredibly difficult to control pain. (2) Dehydration Current Visit: No Status: Acute Code(s): E86.0 - DEHYDRATION SNOMED Code(s ): 19722809 Comment: - Hydration IV and by feeding tube - BMP in AM (3) Electrolyte abnormality Current Visit: No Status: Acute Code(s): E87.8 - OTH DISORDERS OF ELECTROLYTE AND FLUID BALANCE, NEC SNOMED Code(s): 475891781 Comment: - Hyponatremia, Hypokalemia, and Hypomagnesemia - Replace PRN - Due to Poor oral intake (4) Achalasia Current Visit: No Status: Chronic Priority: High Code(s): K22.0 - ACHALASIA OF CARDIA SNOMED Code(s): 88390324 Comment: - Continue pain control; pain consult ordered, due to continued uncontrolled pain - tube feeds overnight - Aggressive anti-emetics - Pleasure feeds PRN - Discussed with GI, nothing new to offer at this time, will need to F/U outpatient GI. (5) CAD (coronary artery disease) Current Visit: No Status: Chronic Code(s): I25.10 - ATHSCL HEART DISEASE OF [place] CORONARY ARTERY W/O ANG PCTRS SNOMED Code(s): 14342022 Comment: -Stress test low risk 1 month ago -continue DAPT, metoprolol, imdur, lipitor (6) COPD (chronic obstructive pulmonary disease) Current Visit: No Status: Chronic Code(s): J44.9 - CHRONIC OBSTRUCTIVE PULMONARY DISEASE, UNSPECIFIED SNOMED Code(s): 30010035 Comment: - Stable and without any signs of exacerbation. - Cont prn albuterol (7) HLD (hyperlipidemia) Current Visit: No Status: Chronic Code(s): E78.5 - HYPERLIPIDEMIA, UNSPECIFIED SNOMED Code(s): 54859117 Comment: - Continue atorvastatin (8) HTN (hypertension) Current Visit: No Status: Chronic Priority: Medium Code(s): I10 - ESSENTIAL (PRIMARY) HYPERTENSION SNOMED Code(s): 34881357 Comment: - Markedly hypertensive - Continue amlodipine, imdur, losartan and spironolactone. - PRN hydralazine (9) DVT prophylaxis Current Visit: No Status: Acute Priority: Low Onset Date: 01/19/15 Code( s): CAN4209 - SNOMED Code(s): 859749621 Comment: - SCDs and Lovenox SQ Status and Disposition: Observation for intractable pain.
--- NOTE | 2020-01-21 14:47 | CONSULT ---
Consult Consult: January 21, 2020 INPATIENT PAIN CONSULTATION Isabel Prasad is a 64 year old female. She has atypical chest pain from distal esophogeal spasm and possible achalasia. She has a thoracic surgeon, Dr. Buckley. She tried Botox injections but had an anaphylactic reaction and was unable to repeat them. SHe has been on chronic opioid therapy for the pain, first from her primary care doctor, and then in the Pain Clinic the last three years. She was last hospitalized with atypical chest pain in early December. I added Morphine concentrate to her usual medications. Currently, she is on MS Contin 60 mg Q8, Dilaudid, 4 mg up to 9 tabs a day (she often takes two), Soma 350 mg 4 times a day and Morphine concentrate 100 mg/5ml and she usually takes 1-2 ml when her pain is bad. She came back to the hospital for severe chest pain. PAST MEDICAL HISTORY: NSTEMI, CAD, Nicotine addiction, J tube, PE Allergies Allergy/AdvReac Type Severity Reaction Status Date / Time albumin colloid, human Allergy Severe Anaphylatic Verified 12/19/19 17:01 Shock bee venom protein (honey bee) Allergy Severe Anaphylatic Verified 12/19/19 17:01 Shock diphenhydramine Allergy Severe Hallucinati Verified 12/19/19 17:01 [From Benadryl] ons Iodinated Contrast Media Allergy Severe Anaphylatic Verified 12/19/19 17:01 [Iodinated Contrast- Oral Shock and IV Dye] onabotulinumtoxinA Allergy Severe Anaphylatic Verified 12/19/19 17:01 [From Botox] Shock Penicillins Allergy Severe Anaphylatic Verified 12/19/19 17:01 Shock shellfish derived Allergy Severe Anaphylatic Verified 12/19/19 17:01 Shock Adhesive Tape Allergy Mild Itching Verified 12/19/19 17:01 chlorhexidine Allergy Mild Rash And Verified 12/19/19 17:01 Itching latex Allergy Mild Hives Verified 12/19/19 17:01 NSAIDS (Non-Steroidal Allergy Mild Hives Verified 12/19/19 17:01 Anti-Inflamma povidone-iodine Allergy Mild Itching Verified 12/19/19 17:01 oxycodone Allergy Unknown Unknown Verified 12/19/19 17:01 Reaction Details fentanyl Allergy Hallucinati Verified 12/19/19 17:01 ons Gadolinium-Containing Allergy Itching Verified 12/19/19 17:01 Contrast Medi ENVIRONMENTAL/SEASONAL Allergy Mild ITCHY,WATERY Uncoded 05/27/19 10:29 HAYFEVER EYES, SNEEZE, CONGESTION Current Medications Albuterol (Ventolin 2.5 Mg/3 Ml Neb.Cely*) 2.5 mg INH Q4H PRN PRN Reason: SHORTNESS OF BREATH Amlodipine Besylate (Norvasc Tab*) 10 mg PO DAILY [facility] Last Admin: 01/21/20 08:57 Dose: 10 mg Atorvastatin Calcium (Lipitor*) 40 mg PO BEDTIME [facility] Carisoprodol (Soma Tab*) 350 mg PO QID PRN PRN Reason: SPASMS - MUSCLE Clopidogrel Bisulfate (Plavix Tab*) 75 mg PO DAILY [facility] Last Admin: 01/21/20 08:56 Dose: 75 mg Enoxaparin Sodium (Lovenox(*)) 30 mg SUBCUT BEDTIME [facility] Last Admin: 01/20/20 23:51 Dose: 30 mg Famotidine (Pepcid Tab*) 20 mg PO DAILY [facility] Last Admin: 01/21/20 08:57 Dose: 20 mg Fluticasone Propionate (Flonase Nasal [place] 50mcg*) 2 spray BOTH NARES DAILY [facility] Last Admin: 01/21/20 08:57 Dose: 2 spray Folic Acid (Folvite Tab*) 1 mg PO DAILY [facility] Last Admin: 01/21/20 08:56 Dose: 1 mg Hydralazine HCl (Apresoline Iv*) 5 mg IV SLOW PU Q6H PRN PRN Reason: BLOOD PRESSURE Last Admin: 01/21/20 01:34 Dose: 5 mg Hydromorphone HCl (Dilaudid Tab*) 8 mg PO Q4H PRN PRN Reason: PAIN Last Admin: 01/21/20 12:21 Dose: 8 mg Sodium Chloride (Ns 0.9% 1000 Ml) 1,000 mls @ 125 mls/hr IV PER RATE [facility] Last Admin: 01/21/20 08:58 Dose: 125 mls/hr Potassium Chloride (Potassium Chloride 20 Meq/100 Ml Ivpremix*) 20 meq in 100 mls @ 50 mls/hr IV Q2H [facility] Stop: 01/21/20 14:59 Last Admin: 01/21/20 12:20 Dose: 50 mls/hr Isosorbide Mononitrate (Imdur Er Tab*) 30 mg PO DAILY [facility] Last Admin: 01/21/20 08:56 Dose: 30 mg Lorazepam (Ativan Tab(*)) 0.25 mg PO BEDTIME PRN PRN Reason: ANXIETY Losartan Potassium (Cozaar Tab*) 100 mg PO DAILY [facility] Last Admin: 01/21/20 08:56 Dose: 100 mg Metoclopramide HCl (Reglan Iv*) 5 mg IV Q6H PRN PRN Reason: NAUSEA/VOMITING Last Admin: 01/21/20 12:21 Dose: 5 mg Metoprolol Tartrate (Lopressor Tab*) 25 mg PO BID [facility] Last Admin: 01/21/20 08:56 Dose: 25 mg Morphine Sulfate (Ms Contin(*)) 60 mg PO Q8H PRN PRN Reason: PAIN - MODERATE Last Admin: 01/21/20 12:21 Dose: 60 mg Nitroglycerin (Nitroglycerin Tab 0.4 Mg*) 0.4 mg SL Q5M PRN PRN Reason: chest pain Ondansetron HCl (Zofran Inj*) 4 mg IV Q6H PRN PRN Reason: NAUSEA Pantoprazole Sodium (Protonix Tab*) 40 mg PO DAILY [facility] Last Admin: 01/21/20 08:57 Dose: 40 mg SOCIAL HISTORY: 1/2 ppd smoker, no alcohol or drug use Vital Signs Temp Pulse Resp BP Pulse Ox 98.3 F 71 18 196/92 96 01/21/20 07:15 01/21/20 07:15 01/21/20 12:21 01/21/20 07:15 01/21/20 07:15 EXAM: GENERAL: No distress LUNGS: Clear HEART: Reg rhythm ABDOMEN: Pain over epigastric region NEUROLOGIC: Able to move 4 extremities. Sensation intact ASSESSMENT: 1. Atypical Chest Pain 2. Distal Esophogeal Spasm PLAN: I will make her MS Contin scheduled as it usually is. She is getting Dilaudid 8 mg as needed, and her Soma. I will add IV Dilaudid for the next 12 hours. She is not sure the morphine concentrate is particularly helpful. I may need to schedule the Soma also. Given her history of CAD and an MT, as well as her BISHOP spasm, it would be better if she could stop smoking. I will follow
[2020-01-21] MEDS: Carisoprodol TAB* 350 MG PO PRN (15:45)
[2020-01-21] MEDS: Enoxaparin(*) 30 MG/0.3 ML SYR SUBCUT SCH (20:02)
[2020-01-21] MEDS: Morphine TAB Extended Release (*) 30 MG TAB.ER PO SCH (20:03)
[2020-01-21] MEDS: Atorvastatin* 40 MG TAB PO SCH (20:03)
[2020-01-21] MEDS: HYDROmorphone INJ* 0.5 MG/0.5 ML SYRINGE IV SLOW PU PRN (23:19)
[2020-01-22] MEDS: hydrALAZINE IV* 20 MG/ML VIAL IV SLOW PU PRN (00:26)
[2020-01-22] MEDS: Carisoprodol TAB* 350 MG PO PRN ×4 (02:59→20:30)
[2020-01-22] MEDS: LORazepam TAB(*) 0.5 MG PO PRN (03:11)
[2020-01-22] MEDS: Morphine TAB Extended Release (*) 30 MG TAB.ER PO SCH ×3 (05:15→20:29)
[2020-01-22] MEDS: Pantoprazole TAB * 40 MG TAB PO SCH (08:46)
[2020-01-22] MEDS: HYDROmorphone TAB* 4 MG PO PRN ×3 (08:46→20:36)
[2020-01-22] MEDS: Famotidine TAB* 20 MG PO SCH (08:46)
[2020-01-22] MEDS: Isosorbide Mononitrate ER TAB* 30 MG PO SCH (08:46)
[2020-01-22] MEDS: Metoprolol Tartrate TAB* 25 MG PO SCH ×2 (08:47→20:30)
[2020-01-22] MEDS: Metoclopramide IV* 5 MG/ML 2 ML VIAL IV PRN (08:47)
[2020-01-22] MEDS: amLODIPine TAB* 5 MG PO SCH (08:47)
[2020-01-22] MEDS: Clopidogrel TAB* 75 MG PO SCH (08:47)
[2020-01-22] MEDS: Folic Acid TAB* 1 MG PO SCH (08:47)
[2020-01-22] MEDS: Losartan TAB* 25 MG PO SCH (08:47)
[2020-01-22] MEDS: NS 0.9% 1000 ML** 1,000 ML IV SCH ×2 (08:57→23:31)
[2020-01-22] MEDS: Fluticasone NASAL SPRAY 50MCG* 16 gm SPRAY BTL BOTH NARES SCH (09:00)
[2020-01-22] MEDS: HYDROmorphone INJ* 0.5 MG/0.5 ML SYRINGE IV SLOW PU PRN ×2 (12:13→18:40)
[2020-01-22 13:39] LABS: BUN/Creatinine Ratio 26.1 (8-20); Calcium 7.8 mg/dL (8.6-10.3); EGFR African American 103.6 (>60); EGFR Non-African American 85.7 (>60); Magnesium 1.7 mg/dL (1.9-2.7); Potassium 2.9 mmol/L (3.5-5.0)
[2020-01-22] MEDS ORDERED: Magnesium Sulfate 2 GM IV* 2 GM/50 ML BAG IVPB ONE (13:45)
--- NOTE | 2020-01-22 14:33 | PN ---
Subjective Date of Service: 01/22/20 Interval History: Patient is feeling still poorly. Patient has a little more appetite and less pain, but is still needing the dilaudid IV for breakthrough. Patient denies F/C , cough, SOB, dizziness, palpitations, or other pain. Family History: Unchanged from Admission Social History: Unchanged from Admission Past Medical History: Unchanged from Admission Objective Active Medications: Albuterol (Ventolin 2.5 Mg/3 Ml Neb.Cely*) 2.5 mg INH Q4H PRN PRN Reason: SHORTNESS OF BREATH Amlodipine Besylate (Norvasc Tab*) 10 mg PO DAILY [facility] Last Admin: 01/22/20 08:47 Dose: 10 mg Atorvastatin Calcium (Lipitor*) 40 mg PO BEDTIME [facility] Last Admin: 01/21/20 20:03 Dose: 40 mg Carisoprodol (Soma Tab*) 350 mg PO QID PRN PRN Reason: SPASMS - MUSCLE Last Admin: 01/22/20 08:57 Dose: 350 mg Clopidogrel Bisulfate (Plavix Tab*) 75 mg PO DAILY [facility] Last Admin: 01/22/20 08:47 Dose: 75 mg Enoxaparin Sodium (Lovenox(*)) 30 mg SUBCUT BEDTIME [facility] Last Admin: 01/21/20 20:02 Dose: 30 mg Famotidine (Pepcid Tab*) 20 mg PO DAILY [facility] Last Admin: 01/22/20 08:46 Dose: 20 mg Fluticasone Propionate (Flonase Nasal [place] 50mcg*) 2 spray BOTH NARES DAILY [facility] Last Admin: 01/22/20 09:00 Dose: 2 spray Folic Acid (Folvite Tab*) 1 mg PO DAILY [facility] Last Admin: 01/22/20 08:47 Dose: 1 mg Hydralazine HCl (Apresoline Iv*) 5 mg IV SLOW PU Q6H PRN PRN Reason: BLOOD PRESSURE Last Admin: 01/22/20 00:26 Dose: 5 mg Hydromorphone HCl (Dilaudid Inj*) 1 mg IV SLOW PU Q6H PRN PRN Reason: PAIN - SEVERE Last Admin: 01/22/20 12:13 Dose: 1 mg Hydromorphone HCl (Dilaudid Tab*) 8 mg PO Q4H PRN PRN Reason: PAIN - SEVERE Hydromorphone HCl (Dilaudid Tab*) 4 mg PO Q4H PRN PRN Reason: PAIN - MODERATE Sodium Chloride (Ns 0.9% 1000 Ml) 1,000 mls @ 75 mls/hr IV PER RATE [facility] Last Admin: 01/22/20 08:57 Dose: 75 mls/hr Magnesium Sulfate (Magnesium Sulfate 2 Gm Iv*) 2 gm in 50 mls @ 50 mls/hr IVPB ONCE ONE Stop: 01/22/20 14:44 Last Admin: 01/22/20 14:18 Dose: 50 mls/hr Potassium Chloride (Potassium Chloride 20 Meq/100 Ml Ivpremix*) 20 meq in 100 mls @ 50 mls/hr IV Q2H [facility] Stop: 01/22/20 19:59 Isosorbide Mononitrate (Imdur Er Tab*) 30 mg PO DAILY [facility] Last Admin: 01/22/20 08:46 Dose: 30 mg Lorazepam (Ativan Tab(*)) 0.25 mg PO BEDTIME PRN PRN Reason: ANXIETY Last Admin: 01/22/20 03:11 Dose: 0.25 mg Losartan Potassium (Cozaar Tab*) 100 mg PO DAILY [facility] Last Admin: 01/22/20 08:47 Dose: 100 mg Metoclopramide HCl (Reglan Iv*) 5 mg IV Q6H PRN PRN Reason: NAUSEA/VOMITING Last Admin: 01/22/20 08:47 Dose: 5 mg Metoprolol Tartrate (Lopressor Tab*) 25 mg PO BID [facility] Last Admin: 01/22/20 08:47 Dose: 25 mg Morphine Sulfate (Ms Contin(*)) 60 mg PO Q8H [facility] Last Admin: 01/22/20 12:11 Dose: 60 mg Nitroglycerin (Nitroglycerin Tab 0.4 Mg*) 0.4 mg SL Q5M PRN PRN Reason: chest pain Ondansetron HCl (Zofran Inj*) 4 mg IV Q6H PRN PRN Reason: NAUSEA Last Admin: 01/21/20 20:11 Dose: 4 mg Pantoprazole Sodium (Protonix Tab*) 40 mg PO DAILY [facility] Last Admin: 01/22/20 08:46 Dose: 40 mg Vital Signs - 8 hr 01/22/20 01/22/20 01/22/20 07:22 08:46 08:57 Temperature 97.7 F Pulse Rate 70 Respiratory 16 18 18 Rate Blood Pressure 146/87 (mmHg) O2 Sat by Pulse 95 Oximetry 01/22/20 01/22/20 01/22/20 11:15 11:40 12:11 Temperature 98.4 F Pulse Rate 72 Respiratory 18 16 18 Rate Blood Pressure 118/82 (mmHg) O2 Sat by Pulse 95 Oximetry 01/22/20 01/22/20 12:13 13:00 Temperature Pulse Rate Respiratory 18 16 Rate Blood Pressure (mmHg) O2 Sat by Pulse Oximetry Oxygen Devices in Use Now: None Appearance: Patient is a 64yo female who appears older than stated age and is sitting in the bed in NAD. Eyes: No Scleral Icterus, PERRLA Ears/Nose/Mouth/Throat: NL Teeth, Lips, Gums, Clear Oropharnyx, Mucous Membranes Moist Neck: NL Appearance and Movements; NL JVP, Trachea Midline Respiratory: Symmetrical Chest Expansion and Respiratory Effort, Clear to Auscultation Cardiovascular: NL Sounds; No Murmurs; No JVD, RRR, No Edema Abdominal: No Hepatosplenomegaly, - - Tender to palpation. Lymphatic: No Cervical Adenopathy Extremities: No Edema, No Clubbing, Cyanosis Skin: No Rash or Ulcers, No Nodules or Sclerosis Neurological: Alert and Oriented x 3, NL Sensation, NL Muscle Strength and Tone , - - CN II-XII intact. Result Diagrams: 01/21/20 04:23 01/22/20 13:15 Assess/Plan/Problems-Billing Assessment: Patient is a 64yo female with a PMH for chronic pain due to achalasia, CAD with TN, PE, here with intractable abdominal pain and dehydration with electrolyte derangements. - Patient Problems (1) Chronic pain Current Visit: No Status: Acute Code(s): G89.29 - OTHER CHRONIC PAIN SNOMED Code(s): 43370002 Comment: - Pt in significant acute on chronic pain at this time. Some improvement today - continue extended release morphine to 60mg TID scheduled which is her home dose - Continue PRN dilaudid IV - Continue soma PRN. May need to schedule. - She follows outpatient with pain clinic; pain consult appreciated - Will need to follow up with outpatient GI to discuss further treatment possibilities as she has incredibly difficult to control pain. (2) Dehydration Current Visit: No Status: Acute Code(s): E86.0 - DEHYDRATION SNOMED Code(s ): 93955603 Comment: - Hydration IV and by feeding tube - Likely cause of hyponatremia - BMP in AM and magenesium (3) Electrolyte abnormality Current Visit: No Status: Acute Code(s): E87.8 - OTH DISORDERS OF ELECTROLYTE AND FLUID BALANCE, NEC SNOMED Code(s): 706990911 Comment: - Hyponatremia, Hypokalemia, and Hypomagnesemia - Replace PRN - Due to Poor oral intake (4) Achalasia Current Visit: No Status: Chronic Priority: High Code(s): K22.0 - ACHALASIA OF CARDIA SNOMED Code(s): 00543170 Comment: - Continue pain control; pain consult ordered, due to continued uncontrolled pain - tube feeds overnight - Aggressive anti-emetics - Pleasure feeds PRN - Discussed with in house GI, nothing new to offer at this time, will need to F/ U outpatient GI. (5) CAD (coronary artery disease) Current Visit: No Status: Chronic Code(s): I25.10 - ATHSCL HEART DISEASE OF [place] CORONARY ARTERY W/O ANG PCTRS SNOMED Code(s): 92585133 Comment: -Stress test low risk 1 month ago -continue DAPT, metoprolol, imdur, lipitor (6) COPD (chronic obstructive pulmonary disease) Current Visit: No Status: Chronic Code(s): J44.9 - CHRONIC OBSTRUCTIVE PULMONARY DISEASE, UNSPECIFIED SNOMED Code(s): 41185618 Comment: - Stable and without any signs of exacerbation. - Cont prn albuterol (7) HLD (hyperlipidemia) Current Visit: No Status: Chronic Code(s): E78.5 - HYPERLIPIDEMIA, UNSPECIFIED SNOMED Code(s): 77140793 Comment: - Continue atorvastatin (8) HTN (hypertension) Current Visit: No Status: Chronic Priority: Medium Code(s): I10 - ESSENTIAL (PRIMARY) HYPERTENSION SNOMED Code(s): 02142052 Comment: - Markedly hypertensive - Continue amlodipine, imdur, losartan and spironolactone. - PRN hydralazine (9) DVT prophylaxis Current Visit: No Status: Acute Priority: Low Onset Date: 01/19/15 Code( s): HWA4632 - SNOMED Code(s): 302774080 Comment: - SCDs and Lovenox SQ Status and Disposition: Inpatient for intractable pain, hopefully home tomorrow.
[2020-01-22] MEDS: KCL 20 MEQ/100 ML IVPREMIX* 20 MEQ/100 ML BAG IV SCH ×3 (15:41→21:12)
--- NOTE | 2020-01-22 17:19 | PN ---
Progress Note - Progress Note Date of Service: 01/22/20 Note: INPATIENT PAIN-PROGRESS Isabel is somewhat more comfortable than she was yesterday. She had a dose of IV Dilaudid at midnight and slept through her 4 am MS Contin dose. I sent in a new prescription for Morphine concentrated solution. She can continue on her usual medicines and follow up in the pain clinic. Hopefully home tomorrow or later today Current Medications Albuterol (Ventolin 2.5 Mg/3 Ml Neb.Cely*) 2.5 mg INH Q4H PRN PRN Reason: SHORTNESS OF BREATH Amlodipine Besylate (Norvasc Tab*) 10 mg PO DAILY [facility] Last Admin: 01/22/20 08:47 Dose: 10 mg Atorvastatin Calcium (Lipitor*) 40 mg PO BEDTIME [facility] Last Admin: 01/21/20 20:03 Dose: 40 mg Carisoprodol (Soma Tab*) 350 mg PO QID PRN PRN Reason: SPASMS - MUSCLE Last Admin: 01/22/20 15:47 Dose: 350 mg Clopidogrel Bisulfate (Plavix Tab*) 75 mg PO DAILY [facility] Last Admin: 01/22/20 08:47 Dose: 75 mg Enoxaparin Sodium (Lovenox(*)) 30 mg SUBCUT BEDTIME [facility] Last Admin: 01/21/20 20:02 Dose: 30 mg Famotidine (Pepcid Tab*) 20 mg PO DAILY [facility] Last Admin: 01/22/20 08:46 Dose: 20 mg Fluticasone Propionate (Flonase Nasal [place] 50mcg*) 2 spray BOTH NARES DAILY [facility] Last Admin: 01/22/20 09:00 Dose: 2 spray Folic Acid (Folvite Tab*) 1 mg PO DAILY [facility] Last Admin: 01/22/20 08:47 Dose: 1 mg Hydralazine HCl (Apresoline Iv*) 5 mg IV SLOW PU Q6H PRN PRN Reason: BLOOD PRESSURE Last Admin: 01/22/20 00:26 Dose: 5 mg Hydromorphone HCl (Dilaudid Inj*) 1 mg IV SLOW PU Q6H PRN PRN Reason: PAIN - SEVERE Last Admin: 01/22/20 12:13 Dose: 1 mg Hydromorphone HCl (Dilaudid Tab*) 8 mg PO Q4H PRN PRN Reason: PAIN - SEVERE Last Admin: 01/22/20 15:47 Dose: 8 mg Hydromorphone HCl (Dilaudid Tab*) 4 mg PO Q4H PRN PRN Reason: PAIN - MODERATE Sodium Chloride (Ns 0.9% 1000 Ml) 1,000 mls @ 75 mls/hr IV PER RATE [facility] Last Admin: 01/22/20 08:57 Dose: 75 mls/hr Potassium Chloride (Potassium Chloride 20 Meq/100 Ml Ivpremix*) 20 meq in 100 mls @ 50 mls/hr IV Q2H [facility] Stop: 01/22/20 19:59 Last Admin: 01/22/20 15:41 Dose: 50 mls/hr Isosorbide Mononitrate (Imdur Er Tab*) 30 mg PO DAILY [facility] Last Admin: 01/22/20 08:46 Dose: 30 mg Lorazepam (Ativan Tab(*)) 0.25 mg PO BEDTIME PRN PRN Reason: ANXIETY Last Admin: 01/22/20 03:11 Dose: 0.25 mg Losartan Potassium (Cozaar Tab*) 100 mg PO DAILY [facility] Last Admin: 01/22/20 08:47 Dose: 100 mg Metoclopramide HCl (Reglan Iv*) 5 mg IV Q6H PRN PRN Reason: NAUSEA/VOMITING Last Admin: 01/22/20 08:47 Dose: 5 mg Metoprolol Tartrate (Lopressor Tab*) 25 mg PO BID [facility] Last Admin: 01/22/20 08:47 Dose: 25 mg Morphine Sulfate (Ms Contin(*)) 60 mg PO Q8H [facility] Last Admin: 01/22/20 12:11 Dose: 60 mg Nitroglycerin (Nitroglycerin Tab 0.4 Mg*) 0.4 mg SL Q5M PRN PRN Reason: chest pain Ondansetron HCl (Zofran Inj*) 4 mg IV Q6H PRN PRN Reason: NAUSEA Last Admin: 01/21/20 20:11 Dose: 4 mg Pantoprazole Sodium (Protonix Tab*) 40 mg PO DAILY [facility] Last Admin: 01/22/20 08:46 Dose: 40 mg Vital Signs Temp Pulse Resp BP Pulse Ox 98.4 F 72 16 118/82 95 01/22/20 11:15 01/22/20 11:15 01/22/20 15:47 01/22/20 11:15 01/22/20 11:15 EXAM: GENERAL: Minimal distress ABDOMEN: Some epigastric tenderness. J tube has tube feeds foing ASSESSMENT: 1. Atypical Chest Pain 2. Probable Achalasia PLAN: There aren't a lot of great options. If she could've tolerated Botox, that might have been ideal. She can go home with MS Johnson/Dilaudid/Morphine elixir. She can follow up at the Pain Clinic
[2020-01-22] MEDS: Atorvastatin* 40 MG TAB PO SCH (20:30)
[2020-01-22] MEDS: Enoxaparin(*) 30 MG/0.3 ML SYR SUBCUT SCH (20:30)
[2020-01-23] MEDS: HYDROmorphone INJ* 0.5 MG/0.5 ML SYRINGE IV SLOW PU PRN ×2 (00:45→07:59)
[2020-01-23] MEDS: LORazepam TAB(*) 0.5 MG PO PRN ×2 (00:51→10:26)
[2020-01-23] MEDS: Morphine TAB Extended Release (*) 30 MG TAB.ER PO SCH ×2 (04:06→11:21)
[2020-01-23] MEDS: Carisoprodol TAB* 350 MG PO PRN ×2 (04:29→10:25)
[2020-01-23] MEDS: HYDROmorphone TAB* 4 MG PO PRN ×2 (04:29→10:26)
[2020-01-23 04:34] LABS: BUN/Creatinine Ratio 28.2 (8-20); Calcium 7.5 mg/dL (8.6-10.3); EGFR Non-African American 74.4 (>60); Magnesium 1.7 mg/dL (1.9-2.7); Potassium 3.7 mmol/L (3.5-5.0)
[2020-01-23] MEDS: Metoprolol Tartrate TAB* 25 MG PO SCH (08:00)
[2020-01-23] MEDS: Famotidine TAB* 20 MG PO SCH (08:00)
[2020-01-23] MEDS: Folic Acid TAB* 1 MG PO SCH (08:00)
[2020-01-23] MEDS: amLODIPine TAB* 5 MG PO SCH (08:01)
[2020-01-23] MEDS: Clopidogrel TAB* 75 MG PO SCH (08:01)
[2020-01-23] MEDS: Isosorbide Mononitrate ER TAB* 30 MG PO SCH (08:01)
[2020-01-23] MEDS: Losartan TAB* 25 MG PO SCH (08:01)
[2020-01-23] MEDS: Pantoprazole TAB * 40 MG TAB PO SCH (08:01)
[2020-01-23] MEDS: Fluticasone NASAL SPRAY 50MCG* 16 gm SPRAY BTL BOTH NARES SCH (08:02)
[2020-01-23] MEDS ORDERED: Magnesium Sulfate 2 GM IV* 2 GM/50 ML BAG IVPB ONE (08:30)
[2020-01-23] MEDS ORDERED: KCL 20 MEQ/100 ML IVPREMIX* 20 MEQ/100 ML BAG IV ONE (08:33)
[2020-01-23] MEDS: Metoclopramide IV* 5 MG/ML 2 ML VIAL IV PRN (11:20)
[2020-01-23 12:48] VITALS: BP 139/70
--- NOTE | 2020-01-24 00:58 | DS ---
CC: Dr. Trish Combs * DISCHARGE SUMMARY: DATE OF ADMISSION: 01/21/20 DATE OF DISCHARGE: 01/23/20 PROVIDER: Mariluz Ladd NP ATTENDING PHYSICIAN: Dr. Otero.* (DICTATED BY MARILUZ LADD NP) PRIMARY CARE PHYSICIAN: Dr. Trish Combs. CONSULTING PHYSICIAN: Dr. Ayala. PRIMARY DIAGNOSES: Intractable pain secondary to achalasia. PROCEDURES: None. DIAGNOSTIC STUDIES: Chest x-ray showed no active cardiopulmonary disease. PERTINENT LABORATORY DATA: D-dimer of 615. Sodium 128, BUN/creatinine ratio 20.2, calcium 7.5, magnesium 1.7. HISTORY OF PRESENT ILLNESS/HOSPITAL COURSE: This is a 64-year-old female with a past medical history significant for coronary artery disease with stents, achalasia with a feeding tube, and COPD, who came to the emergency room on 01/19 for worsening chest pain. She [place] [facility] [place] prior to her admission admission with severe epigastric chest pain associated with nausea and vomiting, and during that admission, she had a stress test which was normal. She reported that the pain during this admission was similar to her previous admission, but the pain had gotten so bad that she was unable to eat, though was still able to take in her Jevity at 5 cans a day and her caregiver had urged her to come to the emergency room because she was weaker and the pain was debilitating. When she came to the emergency room, she was initially found to be significantly hyponatremic and she had hypokalemia. Her potassium was replaced and she was found to be dehydrated as well so was given IV hydration. Through the next several days, her appetite slowly got better though still remained poor for the first 2 days and was relying on IV Dilaudid for pain relief. Dr. Ayala was consulted for pain control and suggested in addition to her normal MS Contin to increase her normal dosage of oral Dilaudid from 4 mg to 8 mg as well as adding morphine concentrate to her medication. She was also amenable to the idea of following up with the GI doctor that she sees in [place] to explore possibilities for further palliative care procedures as our GI doctor here could contribute no further to her care. In the past, she had not responded well to Botox injections because of an anaphylaxis. She also stated that she had tried taking nitrates prior to eating meals to be able to tolerate her food better and did not have any relief with that. However, today on the day of discharge, she was feeling much better, no longer required IV Dilaudid, and was able to tolerate a good amount of her meals on top of her tube feeding and was requesting to be discharged home. Dr. Ayala had sent in a prescription for her additional pain medication and suggested that she follow up with her pain clinic. REVIEW OF SYSTEMS: A 12-point system review was performed, which was positive for epigastric/chest pain, occasional nausea, but otherwise was negative for lightheadedness, dizziness, shortness of breath, vomiting, or issues moving her bowels or bladder. PHYSICAL EXAMINATION: Vital Signs: 98.5 Fahrenheit, 60 pulse, 18 respirations , 99% oxygen on room air, and 139/70 blood pressure. General: This is a well- developed, chronically ill-appearing woman, seen sitting up in bed, in no acute distress. HEENT: Conjunctivae pink and moist. PERRLA. EOMs intact. Oropharynx clear. Mucous membranes are moist. Neck is supple. Cardiac: S1, S2 present. Heart rate regular. No murmurs, gallops, or rubs appreciated. Respiratory: Lung sounds clear throughout bilaterally though diminished in bases on room air with no accessory muscle use noted. Abdomen: Distended but soft, nontender with positive bowel sounds x4. Mai tube noted to left upper quadrant. Insertion site slightly pink without drainage. Musculoskeletal: No clubbing or cyanosis of the digits. Skin is intact and without any rashes or lesions. Mai tube as described above. Neurologic: Sensation intact to light touch. No focal deficits appreciated. Able to move all extremities. Psych: She is alert and oriented x4. Thought content organized. DISCHARGE PLAN: She is to be discharged home with her tube feeding diet of Jevity 1.5 five cans a day on top of pleasure feeds as desired and as tolerated. Her activity is as tolerated. She is to return to the hospital should her pain become uncontrollable even with current pain regimen or should she be unable to tolerate food or tube feedings. PLAN FOR EACH CONDITION: 1. Intractable pain secondary to achalasia. She is to continue her normal use of MS Contin and should continue on with increased dose of Dilaudid 8 mg as well as her new prescription for morphine solution. Also recommend that she do follow up with her GI in [place] to explore further palliative care procedures if they are available. She may also continue using the Soma as needed for chronic pain and Zofran ODT tabs for nausea. 2. Hypertension. She may continue her spironolactone, amlodipine, metoprolol, and losartan. 3. GERD. She may continue pantoprazole and famotidine as needed. 4. Coronary artery disease with stenting. She is to continue her Plavix as well as atorvastatin. 5. COPD. She is to continue her Atrovent, levocetirizine, tiotropium, and albuterol inhaler. 6. Anemia. She is to continue her folic acid and thiamine. Continue cyanocobalamin monthly injection. 7. Anxiety. She can continue her usual lorazepam. DISCHARGE MEDICATIONS: New medications upon discharge, which is the morphine oral concentrate 1 mg p.o. b.i.d. p.r.n. Medications to continue upon discharge: 1. MS Contin 60 mg p.o. q.8 hours p.r.n. 2. Amlodipine 10 mg p.o. daily. 3. Tiotropium bromide 2 inhalations p.o. daily p.r.n. 4. Thiamine 100 mg p.o. daily. 5. Spironolactone 25 mg p.o. daily. 6. Pantoprazole 40 mg p.o. daily. 7. Ondansetron 4 mg p.o. q.8 hours p.r.n. 8. Nitroglycerin 0.4 mg sublingually q.5 minutes p.r.n. 9. Nicotine 10 mg nasally 4 times daily p.r.n. 10. spray 4 mg both nares once p.r.n. 11. Mupirocin 2% cream 1 application topically b.i.d. 12. Multivitamin 1 tab daily. 13. Mometasone 2 sprays both nares daily. 14. Metoprolol tartrate 25 mg p.o. b.i.d. 15. Losartan potassium 100 mg p.o. daily. 16. Levocetirizine 5 mg p.o. at bedtime p.r.n. 17. Jevity 1185 mL per J-tube daily. 18. Lorazepam 0.25 to 0.5 mg p.o. at bedtime p.r.n. 19. Ketotifen fumarate 1 drop both eyes b.i.d. p.r.n. 20. Isosorbide mononitrate ER 30 mg p.o. daily. 21. Ipratropium inhaler 2 puffs inhalation q.6 hours p.r.n. 22. Hydromorphone 8 mg p.o. q.4 hours p.r.n., max daily dose 12 tabs. 23. Folic acid 1 mg p.o. daily. 24. Fluticasone nasal spray 2 sprays both nares daily. 25. Famotidine 20 mg per J-tube daily p.r.n. 26. Epinephrine 0.3 mg IM once p.r.n. 27. Cyanocobalamin 1 mL IM monthly. 28. Clopidogrel 75 mg p.o. daily. 29. Carisoprodol or Soma 350 mg p.o. 4 times daily p.r.n. 30. Azelastine 2 sprays both nares daily. 31. Atorvastatin 40 mg p.o. at bedtime. 32. Albuterol inhaler 2 puffs inhalation q.4 hours p.r.n. CONDITION UPON DISCHARGE: Stable. DISPOSITION: To home. TIME SPENT: Time spent on the patient was 60 minutes with 30 of that spent face -to- face. MARILUZ LADD, [employer] WORKER [id number]/[facility] #: [id number] [facility]
== END 2020-01-23 15:45 | disposition home health service (06) | DRG 243 ==
LOC: ED 20:02 → MEDTELE 22:15 → OBSVTOIN 01-21 11:00
PROVIDERS: ADMIT Student in an Organized Health Care Education/Training Program; ATTEND Hospitalist
DX: K22.0 Achalasia of cardia (principal); E87.1 Hypo-osmolality and hyponatremia; R07.89 Other chest pain; I25.10 Atherosclerotic heart disease of native coronary artery without angina pectoris; J44.9 Chronic obstructive pulmonary disease, unspecified; R10.13 Epigastric pain; E87.6 Hypokalemia; G89.29 Other chronic pain; E86.0 Dehydration; K21.9 Gastro-esophageal reflux disease without esophagitis; D64.9 Anemia, unspecified; F41.9 Anxiety disorder, unspecified; K57.30 Diverticulosis of large intestine without perforation or abscess without bleeding; R74.8 Abnormal levels of other serum enzymes; E78.5 Hyperlipidemia, unspecified; Z96.659 Presence of unspecified artificial knee joint; Z95.5 Presence of coronary angioplasty implant and graft; Z93.1 Gastrostomy status; Z82.49 Family history of ischemic heart disease and other diseases of the circulatory system; Z79.891 Long term (current) use of opiate analgesic; Z79.899 Other long term (current) drug therapy; Z88.6 Allergy status to analgesic agent; Z91.030 Bee allergy status; Z91.041 Radiographic dye allergy status; Z91.040 Latex allergy status; Z88.5 Allergy status to narcotic agent; Z88.0 Allergy status to penicillin; Z91.013 Allergy to seafood; Z88.8 Allergy status to other drugs, medicaments and biological substances; Z91.048 Other nonmedicinal substance allergy status
CPT/HCPCS: 36415; 71045; 80048; 80053; 83735; 84484; 85025; 85379; 93005; 96361; 96374; 96375; 99284; A9270-GY; J0360; J1170; J1650; J2270; J2405; J2765; J3475; J3480

== ENCOUNTER 2020-12-01 16:32 | Observation (INO) ==
[2020-12-01] MEDS ORDERED: NS 0.9% 1000 ml BAG 1,000 ML IV ONE (16:43)
[2020-12-01] MEDS ORDERED: diPHENhydraMINE IV 50 MG/ML 1 ml VIAL (BENADRYL) SLOW PUSH ONE (16:45)
[2020-12-01] MEDS ORDERED: Ondansetron 4 mg VIAL 2 MG/ML 2 ml VIAL IV ONE (16:45)
[2020-12-01] MEDS ORDERED: Famotidine IV 10 MG/ML 2 ml VIAL (20 mg) IV SLOW PU ONE (16:45)
[2020-12-01 17:12] LABS: ABS Lymphocytes 1.1 10^3/ul (1.0-4.8); ABS Monocytes 0.7 10^3/ul (0-0.8); ABS Neutrophils 11.1 10^3/ul (1.5-7.7); Hematocrit 47 % (35-47); Hemoglobin 16.2 g/dL (12.0-16.0); Lymphocyte % 8.2 %; Mean Corpuscular HGB Conc 34 g/dL (31-36); Mean Corpuscular Hemoglobin 28 pg (27-31); Mean Corpuscular Volume 82 fL (80-97); Mean Platelet Volume 7.8 fL (7.4-10.4); Platelet Count 387 10^3/uL (150-450); Red Blood Count 5.82 10^6 /uL (3.70-4.87); Red Cell Distribution Width 15 % (10-15); White Blood Count 12.9 10^3/uL (3.5-10.8)
[2020-12-01 17:32] LABS: ALT 13 U/L (7-52); AST 18 U/L (13-39); Albumin 4.4 g/dL (3.2-5.2); Albumin/Globulin Ratio 1.3 (1-3); Alkaline Phosphatase 75 U/L (34-104); Anion Gap 15 mmol/L (2-11); BUN/Creatinine Ratio 36.8 (8-20); Blood Urea Nitrogen 35 mg/dL (6-24); C Reactive Protein 1.56 mg/L (<8.01); CO2 Carbon Dioxide 19 mmol/L (22-32); Calcium 9.4 mg/dL (8.6-10.3); Chloride 91 mmol/L (101-111); EGFR African American 71.4 (>60); Globulin 3.5 g/dL (2-4); Glucose 146 mg/dL (70-100); Lipase 18 U/L (11.0-82.0); Magnesium 1.5 mg/dL (1.9-2.7); Potassium 3.5 mmol/L (3.5-5.0); Sodium 125 mmol/L (135-145); Total Protein 7.9 g/dL (6.4-8.9)
[2020-12-01] MEDS ORDERED: Magnesium Sulfate 2 gm BAG 2 GM/50 ML BAG IVPB ONE (17:43)
[2020-12-01 17:47] LABS: Troponin I 0.03 ng/mL (<0.03)
[2020-12-01] MEDS ORDERED: NS 0.9% 1000 ml BAG 500 ML IV ONE (18:11)
[2020-12-01] MEDS ORDERED: Morphine 2 MG/ML SYRINGE IV ONE (18:20)
[2020-12-01] MEDS ORDERED: HYDROmorphone 1 MG/1 ML SYRINGE IV SLOW PU ONE (20:08)
[2020-12-01] MEDS ORDERED: NS 0.9% 1000 ml BAG 1,000 ML IV SCH (20:45)
[2020-12-01 20:56] LABS: Urine Appearance Cloudy; Urine Bilirubin Negative (Negative); Urine Blood 2+ (Negative); Urine Color Yellow; Urine Glucose 1+(50 mg/dL) (Negative); Urine Ketones Negative (Negative); Urine Nitrite Negative (Negative); Urine Protein 3+(>=500 mg/dL) (Negative); Urine Specific Gravity 1.017 (1.010-1.030); Urine Urobilinogen Negative (Negative)
[2020-12-01 21:03] LABS: Urine Bacteria Absent (Absent); Urine Red Blood Cell Trace(0-2/hpf) (Absent); Urine Squamous Epithelial Cell Present (Absent); Urine White Blood Cell Trace(0-5/hpf) (Absent)
[2020-12-01 21:41] LABS: Troponin I 0.03 ng/mL (<0.03)
[2020-12-01] MEDS ORDERED: hydrALAZINE 20 mg/ml 1 ML Vial IV IV SLOW PU PRN (21:56)
[2020-12-01] MEDS ORDERED: Pantoprazole VIAL 40 MG VIAL IV ONE (21:56)
[2020-12-01] MEDS: Isosorbide Mononit ER 30mg TAB PO SCH (23:25)
[2020-12-01] MEDS: Morphine ER 30 mg TAB ** extended release PO SCH (23:25)
[2020-12-01] MEDS: Enoxaparin 40 MG/0.4 ML SYR SUBCUT SCH (23:29)
[2020-12-01] MEDS ORDERED: Albuterol HFA INHALER 8 gm MDI INH PRN (23:45)
[2020-12-02] MEDS: Ondansetron 4 mg VIAL 2 MG/ML 2 ml VIAL IV PRN ×4 (00:41→17:42)
[2020-12-02] MEDS: HYDROmorphone 1 MG/1 ML SYRINGE IV SLOW PU PRN ×3 (00:49→12:06)
[2020-12-02 01:26] LABS: Troponin I 0.04 ng/mL (<0.03)
[2020-12-02] MEDS ORDERED: Nitro 2% OINT (Nitroglycerin) 1 INCH/PAK TOPICAL ONE (01:35)
[2020-12-02] MEDS ORDERED: Nitro 2% OINT (Nitroglycerin) 1 INCH/PAK ONE (02:59)
[2020-12-02] MEDS: Morphine ORAL.SOLN 10 mg 2 mg/ml UDC 5 ml (10 mg) PO PRN ×2 (03:18→19:45)
[2020-12-02 04:29] LABS: ABS Lymphocytes 1.2 10^3/ul (1.0-4.8); ABS Monocytes 0.8 10^3/ul (0-0.8); Hematocrit 40 % (35-47); Hemoglobin 13.4 g/dL (12.0-16.0); Lymphocyte % 10.2 %; Mean Corpuscular HGB Conc 34 g/dL (31-36); Mean Corpuscular Hemoglobin 28 pg (27-31); Mean Corpuscular Volume 81 fL (80-97); Mean Platelet Volume 7.5 fL (7.4-10.4); Platelet Count 331 10^3/uL (150-450); Red Blood Count 4.86 10^6 /uL (3.70-4.87); Red Cell Distribution Width 15 % (10-15); White Blood Count 12.1 10^3/uL (3.5-10.8)
[2020-12-02 04:47] LABS: Anion Gap 8 mmol/L (2-11); BUN/Creatinine Ratio 36.9 (8-20); Blood Urea Nitrogen 31 mg/dL (6-24); CO2 Carbon Dioxide 21 mmol/L (22-32); Calcium 7.9 mg/dL (8.6-10.3); Chloride 100 mmol/L (101-111); Cholesterol 245 mg/dL; EGFR African American 82.3 (>60); Glucose 110 mg/dL (70-100); HDL Cholesterol 55.4 mg/dL; LDL Cholesterol 167 mg/dL; Potassium 3.6 mmol/L (3.5-5.0); Sodium 129 mmol/L (135-145); Triglycerides 111 mg/dL
[2020-12-02 04:52] LABS: Troponin I 0.03 ng/mL (<0.03)
[2020-12-02] MEDS: Morphine ER 30 mg TAB ** extended release PO SCH ×3 (05:52→22:41)
[2020-12-02] MEDS: SPIRIVA Respimat (tiotropium) 2.5 mcg/inh Inhaler INH SCH (07:33)
[2020-12-02] MEDS ORDERED: Nitro Patch/OINT Remove PATCH PATCH OFF ONE (08:00)
[2020-12-02] MEDS ORDERED: Mometasone NASAL (NF) SPRAY BOTH NARES SCH (09:00)
[2020-12-02] MEDS: Isosorbide Mononit ER 30mg TAB PO SCH (09:45)
[2020-12-02] MEDS: Multivitamins/Minerals TAB PO SCH (09:46)
[2020-12-02] MEDS: Fluticasone NASAL SPRAY 50MCG 16 gm SPRAY BTL BOTH NARES SCH (09:48)
[2020-12-02] MEDS: Enoxaparin 40 MG/0.4 ML SYR SUBCUT SCH (19:51)
[2020-12-03] MEDS: Morphine ER 30 mg TAB ** extended release PO SCH (06:14)
[2020-12-03] MEDS: SPIRIVA Respimat (tiotropium) 2.5 mcg/inh Inhaler INH SCH (07:31)
[2020-12-03 07:59] VITALS: BP 143/76
[2020-12-03] MEDS: Multivitamins/Minerals TAB PO SCH (08:24)
[2020-12-03] MEDS: Isosorbide Mononit ER 30mg TAB PO SCH (08:25)
[2020-12-03] MEDS: Fluticasone NASAL SPRAY 50MCG 16 gm SPRAY BTL BOTH NARES SCH (08:27)
[2020-12-03] MEDS: Ondansetron 4 mg VIAL 2 MG/ML 2 ml VIAL IV PRN (08:34)
== END 2020-12-03 12:20 | disposition home or self-care (01) ==
LOC: MED 16:32 → ED 16:32
PROVIDERS: ADMIT Student in an Organized Health Care Education/Training Program; ATTEND Student in an Organized Health Care Education/Training Program

== ENCOUNTER 2021-03-10 09:31 | Observation (INO) ==
[2021-03-10] MEDS ORDERED: NS 0.9% 1000 ml BAG 1,000 ML IV ONE ×3 (09:56→13:48)
[2021-03-10] MEDS ORDERED: HYDROmorphone 1 MG/1 ML SYRINGE IV ONE ×3 (10:09→12:15)
[2021-03-10] MEDS ORDERED: Ondansetron 4 mg VIAL 2 MG/ML 2 ml VIAL IV ONE (10:09)
[2021-03-10 10:18] LABS: ABS Monocytes 0.9 10^3/ul (0-0.8); Eosinophil % 0.1 %; Hematocrit 48 % (35-47); Hemoglobin 16.4 g/dL (12.0-16.0); INR 1.21 (0.82-1.09); Mean Corpuscular HGB Conc 35 g/dL (31-36); Mean Corpuscular Hemoglobin 29 pg (27-31); Mean Corpuscular Volume 83 fL (80-97); Mean Platelet Volume 7.6 fL (7.4-10.4); Platelet Count 411 10^3/uL (150-450); Red Blood Count 5.71 10^6 /uL (3.70-4.87); Red Cell Distribution Width 15 % (10-15); White Blood Count 10.9 10^3/uL (3.5-10.8)
[2021-03-10 10:27] LABS: ALT 12 U/L (7-52); AST 21 U/L (13-39); Albumin 3.7 g/dL (3.2-5.2); Albumin/Globulin Ratio 1.2 (1-3); Alkaline Phosphatase 72 U/L (35-149); Anion Gap 12 mmol/L (2-11); Blood Urea Nitrogen 21 mg/dL (6-24); CO2 Carbon Dioxide 23 mmol/L (22-32); Calcium 8.8 mg/dL (8.6-10.3); Chloride 92 mmol/L (101-111); EGFR African American 92.1 (>60); EGFR Non-African American 76.1 (>60); Globulin 3.2 g/dL (2-4); Glucose 115 mg/dL (70-100); Potassium 3.2 mmol/L (3.5-5.0); Sodium 127 mmol/L (135-145); Total Protein 6.9 g/dL (6.4-8.9)
[2021-03-10 10:33] LABS: Troponin I 0.04 ng/mL (<0.03)
[2021-03-10] MEDS ORDERED: Metoclopramide 5 MG/ML VIAL (10 mg) IV SLOW PU ONE (11:19)
[2021-03-10 13:28] LABS: Anion Gap 9 mmol/L (2-11); Blood Urea Nitrogen 18 mg/dL (6-24); CO2 Carbon Dioxide 22 mmol/L (22-32); Calcium 7.5 mg/dL (8.6-10.3); Chloride 97 mmol/L (101-111); EGFR African American 108.4 (>60); EGFR Non-African American 89.6 (>60); Glucose 107 mg/dL (70-100); Potassium 2.9 mmol/L (3.5-5.0); Sodium 128 mmol/L (135-145)
[2021-03-10] MEDS ORDERED: Potassium Chlor 20 meq TAB.ER PO ONE (13:30)
[2021-03-10 13:34] LABS: Troponin I 0.04 ng/mL (<0.03)
[2021-03-10 13:49] LABS: Magnesium 1.6 mg/dL (1.9-2.7)
[2021-03-10] MEDS ORDERED: Magnesium Sulf 4 GM/100 ML IV 4,000 MG/100 ML BAG IVPB ONE (14:06)
[2021-03-10] MEDS ORDERED: Morphine ORAL CONCENTRATE 5 MG/0.25 ML ORAL.SYRIN PO PRN (14:47)
[2021-03-10] MEDS ORDERED: hydrALAZINE 20 mg/ml 1 ML Vial IV IV SLOW PU ONE (15:00)
[2021-03-10] MEDS: Isosorbide Mononit ER 30mg TAB PO SCH (17:47)
[2021-03-10] MEDS: HYDROmorphone 1 MG/1 ML SYRINGE IV PRN ×2 (17:48→23:34)
[2021-03-10] MEDS: Ondansetron ODT 4 mg TAB 4 MG TAB PO PRN (17:48)
[2021-03-10] MEDS: NS 0.45% 1000 ml BAG 1,000 ML IV SCH (17:50)
[2021-03-10] MEDS: Morphine ER 30 mg TAB ** extended release PO SCH (21:28)
[2021-03-10] MEDS: Enoxaparin 40 MG/0.4 ML SYR SUBCUT SCH (21:29)
[2021-03-11] MEDS: NS 0.45% 1000 ml BAG 1,000 ML IV SCH ×3 (03:51→22:05)
[2021-03-11] MEDS: HYDROmorphone 1 MG/1 ML SYRINGE IV PRN ×4 (03:51→19:27)
[2021-03-11] MEDS: Albuterol HFA INHALER 8 gm MDI INH PRN (04:46)
[2021-03-11] MEDS: Morphine ER 30 mg TAB ** extended release PO SCH ×3 (05:59→21:59)
[2021-03-11 06:55] LABS: Calcium 6.9 mg/dL (8.6-10.3); EGFR African American 104.7 (>60); EGFR Non-African American 86.6 (>60); Potassium 3.2 mmol/L (3.5-5.0)
[2021-03-11] MEDS: Fluticasone NASAL SPRAY 50MCG 16 gm SPRAY BTL BOTH NARES SCH (08:25)
[2021-03-11] MEDS: Ondansetron ODT 4 mg TAB 4 MG TAB PO PRN ×2 (08:25→16:20)
[2021-03-11] MEDS: Isosorbide Mononit ER 30mg TAB PO SCH (08:25)
[2021-03-11] MEDS ORDERED: Isosorbide Mononit ER 30mg TAB PO SCH (09:00)
[2021-03-11] MEDS ORDERED: Mometasone NASAL (NF) SPRAY BOTH NARES SCH (09:00)
[2021-03-11] MEDS ORDERED: KCL 20 MEQ/100 ML IVPREMIX 20 MEQ/100 ML BAG ONE (09:03)
[2021-03-11] MEDS: KCL 20 MEQ/100 ML IVPREMIX 20 MEQ/100 ML BAG IV SCH ×3 (09:05→13:09)
[2021-03-11] MEDS ORDERED: Magnesium Hydroxide LIQ 30 ML UDC PO PRN (10:52)
[2021-03-11] MEDS ORDERED: Polyethylene Glycol 3350 17 GM PACKET PO PRN (10:52)
[2021-03-11] MEDS ORDERED: Senna TAB 8.6 mg TAB PO PRN (10:52)
[2021-03-11] MEDS: Magnesium Hydroxide LIQ 30 ML UDC PO SCH ×2 (11:19→22:02)
[2021-03-11] MEDS ORDERED: Morphine ORAL.SOLN 10 mg 2 mg/ml UDC 5 ml (10 mg) PO PRN (12:34)
[2021-03-11] MEDS: Enoxaparin 40 MG/0.4 ML SYR SUBCUT SCH (22:01)
[2021-03-12] MEDS: Albuterol HFA INHALER 8 gm MDI INH PRN (01:09)
[2021-03-12] MEDS: Morphine ER 30 mg TAB ** extended release PO SCH (05:27)
[2021-03-12] MEDS: HYDROmorphone 1 MG/1 ML SYRINGE IV PRN (05:28)
[2021-03-12 06:01] LABS: Calcium 7.8 mg/dL (8.6-10.3); EGFR African American 114.4 (>60); EGFR Non-African American 94.5 (>60); Potassium 4.2 mmol/L (3.5-5.0)
[2021-03-12 07:12] VITALS: BP 152/92
[2021-03-12] MEDS: Ondansetron ODT 4 mg TAB 4 MG TAB PO PRN (07:14)
[2021-03-12] MEDS: Isosorbide Mononit ER 30mg TAB PO SCH (07:14)
[2021-03-12] MEDS: Fluticasone NASAL SPRAY 50MCG 16 gm SPRAY BTL BOTH NARES SCH (07:15)
[2021-03-12] MEDS: NS 0.45% 1000 ml BAG 1,000 ML IV SCH (07:16)
[2021-03-12] MEDS: Magnesium Hydroxide LIQ 30 ML UDC PO SCH (07:18)
[2021-03-24] MEDS ORDERED: Cyanocobalamin INJ 1,000 MCG/ML VIAL 1 ML VIAL IM SCH (09:00)
== END 2021-03-12 11:30 | disposition home or self-care (01) ==
LOC: ED 09:31 → MEDTELE 09:31
PROVIDERS: ADMIT Student in an Organized Health Care Education/Training Program; ATTEND Internal Medicine

== ENCOUNTER 2021-06-04 16:36 | Inpatient (IN) ==
[2021-06-04] MEDS ORDERED: Labetalol IV 5 MG/ML 20 ml VIAL IV PUSH ONE (16:59)
[2021-06-04] MEDS ORDERED: Ondansetron 4 mg VIAL 2 MG/ML 2 ml VIAL IV ONE ×2 (16:59→20:09)
[2021-06-04] MEDS ORDERED: Morphine 4 MG/ML VIAL (1 ml) IV ONE ×2 (16:59→20:09)
[2021-06-04 17:29] LABS: ABS Lymphocytes 0.5 10^3/ul (1.0-4.8); ABS Monocytes 0.4 10^3/ul (0-0.8); ABS Neutrophils 8.2 10^3/ul (1.5-7.7); Hematocrit 45 % (35-47); Hemoglobin 15.6 g/dL (12.0-16.0); Lymphocyte % 5.6 %; Mean Corpuscular HGB Conc 35 g/dL (31-36); Mean Corpuscular Hemoglobin 29 pg (27-31); Mean Corpuscular Volume 83 fL (80-97); Mean Platelet Volume 7.6 fL (7.4-10.4); Platelet Count 379 10^3/uL (150-450); Red Blood Count 5.41 10^6 /uL (3.70-4.87); Red Cell Distribution Width 15 % (10-15); White Blood Count 9.1 10^3/uL (3.5-10.8)
[2021-06-04 18:00] LABS: Albumin 4.2 g/dL (3.2-5.2); Albumin/Globulin Ratio 1.2 (1-3); Calcium 8.9 mg/dL (8.6-10.3); EGFR African American 92.1 (>60); EGFR Non-African American 76.1 (>60); Globulin 3.6 g/dL (2-4); Potassium 3.7 mmol/L (3.5-5.0); Total Bilirubin 0.6 mg/dL (0.2-1.0); Total Protein 7.8 g/dL (6.4-8.9)
[2021-06-04 18:02] LABS: Troponin I 0.02 ng/mL (<0.03)
[2021-06-04 18:08] LABS: INR 6.45 (0.86-1.15)
[2021-06-04 20:36] LABS: Troponin I 0.04 ng/mL (<0.03)
[2021-06-04] MEDS ORDERED: Ondansetron 4 mg VIAL 2 MG/ML 2 ml VIAL ONE (23:50)
[2021-06-04] MEDS: Ondansetron 4 mg VIAL 2 MG/ML 2 ml VIAL IV PRN (23:51)
[2021-06-05 00:27] LABS: Troponin I 0.03 ng/mL (<0.03)
[2021-06-05] MEDS ORDERED: Albuterol HFA INHALER 8 gm MDI INH PRN (04:07)
[2021-06-05] MEDS ORDERED: Ipratropium HFA INHALER(NF) (ALTERNATIVE = NEBS) INH PRN (04:07)
[2021-06-05] MEDS: Ondansetron 4 mg VIAL 2 MG/ML 2 ml VIAL IV PRN ×3 (04:33→19:07)
[2021-06-05] MEDS: Morphine ORAL.SOLN 10 mg 2 mg/ml UDC 5 ml (10 mg) PO PRN (04:34)
[2021-06-05] MEDS ORDERED: Phytonadione Oral Solution 5 MG/25 ML UDC PO ONE (05:28)
[2021-06-05] MEDS ORDERED: Lactated Ringers 1000 ml BAG 1,000 ML IV ONE (05:32)
[2021-06-05] MEDS ORDERED: EPINEPHrine PEN ADULT(NF) 0.3 MG SYRINGE IM PRN (05:35)
[2021-06-05] MEDS: Morphine ER 30 mg TAB ** extended release PO SCH ×3 (06:33→22:26)
[2021-06-05] MEDS ORDERED: NS 0.9% 1000 ml BAG 1,000 ML IV SCH (07:45)
[2021-06-05] MEDS: Isosorbide Mononit ER 30mg TAB PO SCH (08:02)
[2021-06-05] MEDS: Enoxaparin 40 MG/0.4 ML SYR SUBCUT SCH (08:02)
[2021-06-05 08:07] LABS: Hematocrit 42 % (35-47); Hemoglobin 14.4 g/dL (12.0-16.0); Mean Corpuscular HGB Conc 34 g/dL (31-36); Mean Corpuscular Hemoglobin 28 pg (27-31); Mean Corpuscular Volume 83 fL (80-97); Mean Platelet Volume 7.5 fL (7.4-10.4); Platelet Count 355 10^3/uL (150-450); Red Blood Count 5.09 10^6 /uL (3.70-4.87); Red Cell Distribution Width 15 % (10-15); White Blood Count 7.9 10^3/uL (3.5-10.8)
[2021-06-05 08:23] LABS: EGFR African American 79.9 (>60); Magnesium 1.6 mg/dL (1.9-2.7); Phosphorus 2.6 mg/dL (2.5-5.0); Potassium 3.7 mmol/L (3.5-5.0)
[2021-06-05 09:00] LABS: Activated Partial Thrombo Time 28.4 seconds (26.0-38.0); Fibrinogen 302.9 mg/dL (110.8-404.3); INR 1.03 (0.86-1.15)
[2021-06-05] MEDS ORDERED: Magnesium Sulfate IV 3 GM in NS 0.9% 100 ml BAG 100 ML IVPB ONE (14:30)
[2021-06-05] MEDS: SPIRIVA Respimat (tiotropium) 2.5 mcg/inh Inhaler INH SCH (15:42)
[2021-06-05] MEDS: HYDROmorphone 1 MG/1 ML SYRINGE IV SLOW PU PRN (21:06)
[2021-06-06] MEDS: HYDROmorphone 1 MG/1 ML SYRINGE IV SLOW PU PRN ×5 (01:18→20:54)
[2021-06-06] MEDS: Morphine ORAL.SOLN 10 mg 2 mg/ml UDC 5 ml (10 mg) PO PRN (04:18)
[2021-06-06] MEDS: Ondansetron 4 mg VIAL 2 MG/ML 2 ml VIAL IV PRN ×2 (04:18→13:50)
[2021-06-06] MEDS: Fluticasone NASAL SPRAY 50MCG 16 gm SPRAY BTL BOTH NARES SCH ×2 (05:11→08:57)
[2021-06-06] MEDS: Morphine ER 30 mg TAB ** extended release PO SCH ×3 (06:39→20:55)
[2021-06-06 08:27] LABS: ABS Basophils 0.1 10^3/ul (0-0.2); ABS Eosinophils 0.1 10^3/ul (0-0.6); ABS Lymphocytes 1.5 10^3/ul (1.0-4.8); ABS Monocytes 0.6 10^3/ul (0-0.8); ABS Neutrophils 5.4 10^3/ul (1.5-7.7); Eosinophil % 0.8 %; Hematocrit 37 % (35-47); Hemoglobin 12.5 g/dL (12.0-16.0); Lymphocyte % 19.2 %; Mean Corpuscular HGB Conc 34 g/dL (31-36); Mean Corpuscular Hemoglobin 29 pg (27-31); Mean Corpuscular Volume 84 fL (80-97); Mean Platelet Volume 7.5 fL (7.4-10.4); Platelet Count 304 10^3/uL (150-450); Red Blood Count 4.39 10^6 /uL (3.70-4.87); Red Cell Distribution Width 15 % (10-15); White Blood Count 7.6 10^3/uL (3.5-10.8)
[2021-06-06 08:54] LABS: Calcium 7.2 mg/dL (8.6-10.3); EGFR African American 98.1 (>60); Magnesium 1.9 mg/dL (1.9-2.7); Potassium 3.4 mmol/L (3.5-5.0)
[2021-06-06] MEDS: Isosorbide Mononit ER 30mg TAB PO SCH (08:56)
[2021-06-06] MEDS: Enoxaparin 40 MG/0.4 ML SYR SUBCUT SCH (08:56)
[2021-06-06] MEDS: SPIRIVA Respimat (tiotropium) 2.5 mcg/inh Inhaler INH SCH (16:04)
[2021-06-06] MEDS: KCL 20 MEQ/100 ML IVPREMIX 20 MEQ/100 ML BAG IV SCH ×2 (17:27→20:54)
[2021-06-07] MEDS: HYDROmorphone 1 MG/1 ML SYRINGE IV SLOW PU PRN ×4 (01:08→13:31)
[2021-06-07] MEDS: Morphine ER 30 mg TAB ** extended release PO SCH (07:12)
[2021-06-07] MEDS: Ondansetron 4 mg VIAL 2 MG/ML 2 ml VIAL IV PRN (08:05)
[2021-06-07] MEDS: Isosorbide Mononit ER 30mg TAB PO SCH (08:49)
[2021-06-07] MEDS: Enoxaparin 40 MG/0.4 ML SYR SUBCUT SCH (08:55)
[2021-06-07] MEDS ORDERED: SPIRIVA Respimat (tiotropium) 2.5 mcg/inh Inhaler INH SCH (09:00)
[2021-06-07] MEDS: Morphine ORAL.SOLN 10 mg 2 mg/ml UDC 5 ml (10 mg) PO PRN (11:28)
[2021-06-07 12:20] VITALS: BP 136/73
== END 2021-06-07 13:45 | disposition home or self-care (01) | DRG 392 ==
LOC: ED 16:36 → EDHOLD 06-05 04:01 → SUATTDRO 06-05 04:01 → EDHOLD 06-05 12:53 → MEDTELE 06-05 13:17
PROVIDERS: ADMIT Internal Medicine; ATTEND Internal Medicine

== ENCOUNTER 2022-04-16 14:45 | Inpatient (IN) ==
[2022-04-16 16:14] LABS: Hematocrit 50 % (35-47); Hemoglobin 16.7 g/dL (12.0-16.0); Mean Corpuscular HGB Conc 34 g/dL (31-36); Mean Corpuscular Hemoglobin 29 pg (27-31); Mean Corpuscular Volume 86 fL (80-97); Mean Platelet Volume 7.2 fL (7.4-10.4); Platelet Count 381 10^3/uL (150-450); Red Blood Count 5.78 10^6 /uL (3.70-4.87); Red Cell Distribution Width 14 % (10-15); White Blood Count 15.8 10^3/uL (3.5-10.8)
[2022-04-16] MEDS ORDERED: Ondansetron 4 mg VIAL 2 MG/ML 2 ml VIAL IV ONE (16:18)
[2022-04-16] MEDS ORDERED: Al Hydrox/Mg Hydrox/Simet LIQ 30 ML UDC PO ONE (16:18)
[2022-04-16] MEDS ORDERED: Famotidine IV 10 MG/ML 2 ml VIAL (20 mg) IV SLOW PU ONE (16:18)
[2022-04-16] MEDS ORDERED: HYDROmorphone 1 MG/1 ML SYRINGE IV SLOW PU ONE ×3 (16:19→19:09)
[2022-04-16] MEDS ORDERED: NS 0.9% 1000 ml BAG 1,000 ML IV ONE ×3 (16:20→16:21)
[2022-04-16 16:27] LABS: INR 1.04 (0.86-1.15)
[2022-04-16 17:23] LABS: ABS Lymphocytes 1.1 10^3/ul (1.0-4.8); ABS Monocytes 1.7 10^3/ul (0-0.8); ABS Neutrophils 12.9 10^3/ul (1.5-7.7); Lymphocyte % 7.2 %; Nucleated Red Blood Cells % 0.2
[2022-04-16 17:27] LABS: Albumin 4.3 g/dL (3.2-5.2); Albumin/Globulin Ratio 1.3 (1-3); Calcium 9.3 mg/dL (8.6-10.3); Globulin 3.2 g/dL (2-4); Potassium 3.2 mmol/L (3.5-5.0); Total Bilirubin 1.7 mg/dL (0.2-1.0); Total Protein 7.5 g/dL (6.4-8.9); eGFR CKD-EPI 76.1 (>60)
[2022-04-16 18:01] LABS: High Sensitivity Troponin 1 Hr 100 pg/mL (<15)
[2022-04-16] MEDS: KCL 10 MEQ/50 ML IVPREMIX 10 MEQ/50 ML BAG IV SCH ×2 (19:36→20:49)
[2022-04-16] MEDS ORDERED: Ondansetron 4 mg VIAL 2 MG/ML 2 ml VIAL IV PRN (20:18)
[2022-04-16] MEDS ORDERED: Albuterol HFA INHALER 8 gm MDI INH PRN (20:24)
[2022-04-16] MEDS ORDERED: Metoprolol Tartrate 5 mg VIAL 5 ml VIAL (1 mg/ml) IV ONE (20:42)
[2022-04-16] MEDS: HYDROmorphone 1 MG/1 ML SYRINGE IV PRN (22:06)
[2022-04-16] MEDS: Heparin 5000 UNITS/ML 1 mL VIAL SUBCUT SCH (22:07)
[2022-04-16] MEDS: Morphine ER 30 mg TAB ** extended release PO SCH (23:47)
[2022-04-17] MEDS: HYDROmorphone 1 MG/1 ML SYRINGE IV PRN ×3 (02:54→09:17)
[2022-04-17 05:29] LABS: ABS Eosinophils 0.1 10^3/ul (0-0.6); ABS Lymphocytes 1.4 10^3/ul (1.0-4.8); ABS Monocytes 1.3 10^3/ul (0-0.8); ABS Neutrophils 8.5 10^3/ul (1.5-7.7); Eosinophil % 0.6 %; Hematocrit 43 % (35-47); Hemoglobin 14.5 g/dL (12.0-16.0); Lymphocyte % 12.2 %; Mean Corpuscular HGB Conc 34 g/dL (31-36); Mean Corpuscular Hemoglobin 29 pg (27-31); Mean Corpuscular Volume 86 fL (80-97); Mean Platelet Volume 7.1 fL (7.4-10.4); Platelet Count 285 10^3/uL (150-450); Red Cell Distribution Width 14 % (10-15); White Blood Count 11.3 10^3/uL (3.5-10.8)
[2022-04-17 06:01] LABS: Calcium 8.1 mg/dL (8.6-10.3); Phosphorus 3.5 mg/dL (2.5-5.0); Potassium 3.7 mmol/L (3.5-5.0)
[2022-04-17] MEDS: Heparin 5000 UNITS/ML 1 mL VIAL SUBCUT SCH ×3 (06:10→22:07)
[2022-04-17] MEDS: Morphine ER 30 mg TAB ** extended release PO SCH ×3 (08:46→23:44)
[2022-04-17] MEDS: Isosorbide Mononit ER 30mg TAB PO SCH (08:47)
[2022-04-17] MEDS: Fluticasone NASAL SPRAY 50MCG 16 gm SPRAY BTL BOTH NARES SCH (08:56)
[2022-04-17] MEDS: CMCS: FLUTICAS/UMECLI/VILANT 100-62.5-25 MDI (NF) INH SCH (15:29)
[2022-04-17 18:06] LABS: C Reactive Protein 5.86 mg/L (<8.01)
[2022-04-18] MEDS: Heparin 5000 UNITS/ML 1 mL VIAL SUBCUT SCH ×3 (06:40→22:50)
[2022-04-18 06:50] LABS: ABS Basophils 0.1 10^3/ul (0-0.2); ABS Eosinophils 0.1 10^3/ul (0-0.6); ABS Lymphocytes 1.4 10^3/ul (1.0-4.8); ABS Monocytes 0.8 10^3/ul (0-0.8); ABS Neutrophils 8.7 10^3/ul (1.5-7.7); Eosinophil % 1.1 %; Hematocrit 33 % (35-47); Hemoglobin 11.3 g/dL (12.0-16.0); Lymphocyte % 12.3 %; Mean Corpuscular HGB Conc 34 g/dL (31-36); Mean Corpuscular Hemoglobin 30 pg (27-31); Mean Corpuscular Volume 87 fL (80-97); Mean Platelet Volume 7.3 fL (7.4-10.4); Platelet Count 215 10^3/uL (150-450); Red Blood Count 3.84 10^6 /uL (3.70-4.87); Red Cell Distribution Width 14 % (10-15)
[2022-04-18 07:45] LABS: Albumin 3.2 g/dL (3.2-5.2); Albumin/Globulin Ratio 1.6 (1-3); Calcium 7.6 mg/dL (8.6-10.3); Magnesium 1.9 mg/dL (1.9-2.7); Phosphorus 2.9 mg/dL (2.5-5.0); Potassium 3.4 mmol/L (3.5-5.0); Total Bilirubin 0.4 mg/dL (0.2-1.0); Total Protein 5.2 g/dL (6.4-8.9); eGFR CKD-EPI 63.3 (>60)
[2022-04-18] MEDS: Isosorbide Mononit ER 30mg TAB PO SCH (08:26)
[2022-04-18] MEDS: Morphine ER 30 mg TAB ** extended release PO SCH ×3 (08:26→22:49)
[2022-04-18] MEDS: CMCS: FLUTICAS/UMECLI/VILANT 100-62.5-25 MDI (NF) INH SCH (08:33)
[2022-04-18] MEDS ORDERED: Potassium Chloride LIQUID 20 MEQ/15 ML LIQUID PO ONE (09:08)
[2022-04-18] MEDS: Fluticasone NASAL SPRAY 50MCG 16 gm SPRAY BTL BOTH NARES SCH (09:11)
[2022-04-18] MEDS ORDERED: Potassium Chloride LIQUID 20 MEQ/15 ML LIQUID PEG TUBE ONE (10:42)
[2022-04-18 20:15] LABS: ABS Eosinophils 0.1 10^3/ul (0-0.6); ABS Lymphocytes 1.3 10^3/ul (1.0-4.8); ABS Monocytes 0.8 10^3/ul (0-0.8); ABS Neutrophils 8.5 10^3/ul (1.5-7.7); Hematocrit 33 % (35-47); Hemoglobin 11.4 g/dL (12.0-16.0); Lymphocyte % 12.3 %; Mean Corpuscular HGB Conc 35 g/dL (31-36); Mean Corpuscular Hemoglobin 30 pg (27-31); Mean Corpuscular Volume 87 fL (80-97); Mean Platelet Volume 7.3 fL (7.4-10.4); Platelet Count 218 10^3/uL (150-450); Red Blood Count 3.78 10^6 /uL (3.70-4.87); Red Cell Distribution Width 14 % (10-15); White Blood Count 10.8 10^3/uL (3.5-10.8)
[2022-04-18 20:27] LABS: PCO2 Arterial 36 mmHg (35-45); PO2 Arterial 90 mmHg (80-100)
[2022-04-18 20:33] LABS: INR 0.99 (0.86-1.15)
[2022-04-18 21:23] LABS: Potassium 4.5 mmol/L (3.5-5.0)
[2022-04-18 21:24] LABS: Phosphorus 2.5 mg/dL (2.5-5.0); eGFR CKD-EPI 63.3 (>60)
[2022-04-18 22:03] LABS: Calcium 8.3 mg/dL (8.6-10.3)
[2022-04-19] MEDS: Heparin 5000 UNITS/ML 1 mL VIAL SUBCUT SCH ×2 (05:36→14:28)
[2022-04-19] MEDS: CMCS: FLUTICAS/UMECLI/VILANT 100-62.5-25 MDI (NF) INH SCH (08:04)
[2022-04-19] MEDS: Fluticasone NASAL SPRAY 50MCG 16 gm SPRAY BTL BOTH NARES SCH (08:28)
[2022-04-19] MEDS: Isosorbide Mononit ER 30mg TAB PO SCH (08:29)
[2022-04-19] MEDS: Morphine ER 30 mg TAB ** extended release PO SCH (08:31)
[2022-04-19 12:13] LABS: Folate 7.45 ng/mL (5.90-24.80)
[2022-04-19 14:11] LABS: Vitamin D Total 25(OH) 10.8 ng/mL (20-50)
[2022-04-19 17:51] VITALS: BP 117/68
== END 2022-04-19 18:15 | disposition home or self-care (01) | DRG 91 ==
LOC: ED 14:45 → EDHOLD 20:18 → SUATTDRO 20:18 → MEDTELE 04-17 06:32
PROVIDERS: ADMIT Student in an Organized Health Care Education/Training Program; ATTEND Hospitalist

== ENCOUNTER 2022-12-24 14:11 | Inpatient (IN) ==
[2022-12-24] MEDS ORDERED: Lactated Ringers 1000 ml BAG 1,000 ML IV ONE ×2 (14:41→18:21)
[2022-12-24 15:31] LABS: ABS Basophils 0.1 10^3/ul (0-0.2); ABS Lymphocytes 1.2 10^3/ul (1.0-4.8); ABS Neutrophils 17.7 10^3/ul (1.5-7.7); Eosinophil % 0.2 %; Hematocrit 47 % (35-47); Hemoglobin 15.7 g/dL (12.0-16.0); Lymphocyte % 5.9 %; Mean Corpuscular HGB Conc 33 g/dL (31-36); Mean Corpuscular Hemoglobin 28 pg (27-31); Mean Corpuscular Volume 84 fL (80-97); Mean Platelet Volume 7.5 fL (7.4-10.4); Platelet Count 402 10^3/uL (150-450); Red Blood Count 5.61 10^6 /uL (3.70-4.87); Red Cell Distribution Width 14 % (10-15); Venous Bicarbonate HCO3 25.5 mmol/L (24-28); White Blood Count 20.1 10^3/uL (3.5-10.8)
[2022-12-24 16:21] LABS: Albumin 4.2 g/dL (3.2-5.2); Albumin/Globulin Ratio 1.4 (1-3); Calcium 9.4 mg/dL (8.6-10.3); Creatinine, Serum 0.77 mg/dL (0.51-0.95); Potassium 3.5 mmol/L (3.5-5.0); Total Bilirubin 0.7 mg/dL (0.2-1.0); Total Protein 7.2 g/dL (6.4-8.9); eGFR CKD-EPI 84.5 (>60)
[2022-12-24 17:09] LABS: High Sensitivity Troponin 1 Hr 38 pg/mL (<15)
[2022-12-24] MEDS ORDERED: Labetalol IV 5 MG/ML 20 ml VIAL IV PUSH ONE ×2 (17:32→21:26)
[2022-12-24] MEDS ORDERED: fentaNYL 100 mcg/2 ml 50 MCG/ML VIAL IV SLOW PU ONE (18:13)
[2022-12-24 18:27] LABS: Urine Appearance Cloudy; Urine Bilirubin Negative (Negative); Urine Blood 3+ (Negative); Urine Color Yellow; Urine Glucose Negative (Negative); Urine Ketones 1+ (Negative); Urine Nitrite Positive (Negative); Urine Protein 3+(>=500 mg/dL) (Negative); Urine Urobilinogen Negative (Negative)
[2022-12-24 18:37] LABS: Urine Bacteria 1+ (Absent); Urine Red Blood Cell 2+(6-10/hpf) (Absent); Urine Squamous Epithelial Cell Present (Absent); Urine White Blood Cell 3+(>20/hpf) (Absent)
[2022-12-24] MEDS ORDERED: cefTRIAXone 1 gm/50 mL D5W 1 GM/50 ML BAG IV ONE (18:39)
[2022-12-24] MEDS ORDERED: fentaNYL PATCH 50 MCG/HR 1 PATCH TRANSDERM ONE (22:15)
[2022-12-24] MEDS ORDERED: hydrALAZINE 20 mg/ml 1 ML Vial IV IV SLOW PU PRN (22:40)
[2022-12-24] MEDS ORDERED: hydrOXYzine IM 50 MG/ML VIAL IM PRN (23:52)
[2022-12-25] MEDS: HYDROmorphone 1 MG/1 ML SYRINGE IV PRN ×3 (00:05→19:13)
[2022-12-25] MEDS: Azithromycin 500 mg/250 ml NS 500 MG/250 ML BAG IVPB SCH ×2 (00:06→22:37)
[2022-12-25] MEDS ORDERED: hydrALAZINE 20 mg/ml 1 ML Vial IV IV SLOW PU ONE ×2 (00:17→18:44)
[2022-12-25] MEDS ORDERED: Nicotine GUM 2MG FRUIT FLAVOR PO PRN (00:36)
[2022-12-25] MEDS ORDERED: Albuterol HFA INHALER 8 gm MDI INH PRN (00:47)
[2022-12-25] MEDS ORDERED: Thiamine 100 MG/ML 2 ml VIAL (200 mg) IV ONE (01:36)
[2022-12-25] MEDS ORDERED: Thiamine IV 100 MG in NS 0.9% 50 ML Q24H IV ONE (02:00)
[2022-12-25] MEDS: Enoxaparin 40 MG/0.4 ML SYR SUBCUT SCH ×2 (02:04→20:50)
[2022-12-25 02:37] LABS: C Reactive Protein 11.24 mg/L (<8.01)
[2022-12-25] MEDS: metroNIDAZOLE IV 500 MG/100ML 500 MG/100 ML BAG IVPB SCH ×3 (04:07→21:28)
[2022-12-25] MEDS ORDERED: hydrALAZINE 20 mg/ml 1 ML Vial IV IV SLOW PU PRN (05:08)
[2022-12-25] MEDS: HYDROmorphone 1 MG/1 ML SYRINGE IV SLOW PU PRN (05:39)
[2022-12-25] MEDS: fentaNYL Patch Check Q Shift NOTE FOLLOW UP SCH ×2 (07:08→21:29)
[2022-12-25] MEDS ORDERED: NS 0.9% 500 ml BAG 500 ML IV ONE (07:28)
[2022-12-25] MEDS: Ondansetron ODT 4 mg TAB 4 MG TAB PO PRN ×2 (08:00→17:25)
[2022-12-25] MEDS: Fluticasone NASAL SPRAY 50MCG 16 gm SPRAY BTL BOTH NARES SCH (08:52)
[2022-12-25] MEDS: Isosorbide Mononit ER 30mg TAB PO SCH (08:52)
[2022-12-25] MEDS: Nicotine PATCH 14 MG/24 HR PATCH TRANSDERM SCH (08:53)
[2022-12-25] MEDS: Albuterol/Ipratropium NEB.SOL (2.5/0.5 MG) 3 ML NEB.SOLN INH SCH ×4 (09:12→19:15)
[2022-12-25 09:33] LABS: ABS Lymphocytes 1.1 10^3/ul (1.0-4.8); ABS Monocytes 1.3 10^3/ul (0-0.8); ABS Neutrophils 14.9 10^3/ul (1.5-7.7); Hematocrit 48 % (35-47); Lymphocyte % 6.1 %; Mean Corpuscular HGB Conc 33 g/dL (31-36); Mean Corpuscular Hemoglobin 28 pg (27-31); Mean Corpuscular Volume 85 fL (80-97); Mean Platelet Volume 7.8 fL (7.4-10.4); Platelet Count 420 10^3/uL (150-450); Red Blood Count 5.69 10^6 /uL (3.70-4.87); Red Cell Distribution Width 14 % (10-15); White Blood Count 17.3 10^3/uL (3.5-10.8)
[2022-12-25 10:09] LABS: Calcium 8.9 mg/dL (8.6-10.3); Creatinine, Serum 0.77 mg/dL (0.51-0.95); Potassium 3.3 mmol/L (3.5-5.0); eGFR CKD-EPI 84.5 (>60)
[2022-12-25] MEDS ORDERED: Morphine 2 MG/ML SYRINGE ONE (10:51)
[2022-12-25] MEDS: NON FORMULARY MED (Budesonide-Glycopyr-Formoterol [Breztri Aerosphere] 160-9-4.8 mcg/actua INH SCH ×2 (11:22→19:16)
[2022-12-25] MEDS ORDERED: Potassium EFFERVES 25 meq TAB PO ONE (15:44)
[2022-12-25 16:41] LABS: Magnesium 1.5 mg/dL (1.9-2.7)
[2022-12-25] MEDS ORDERED: Magnesium Sulfate IV 3 GM in NS 0.9% 100 ml BAG 100 ML IVPB ONE (16:42)
[2022-12-25] MEDS ORDERED: Nitroglycerin 0.1 mg/hr PATCH (2.5 mg) TRANSDERM SCH (20:30)
[2022-12-25] MEDS: cefTRIAXone 1 gm/50 mL D5W 1 GM/50 ML BAG IV SCH (20:47)
[2022-12-25 21:01] LABS: High Sensitivity Troponin 1 Hr 79 pg/mL (<15)
[2022-12-26] MEDS ORDERED: Heparin DRIP 25,000 UNITS BAG 25,000 UNITS/500 ML BAG IV SCH (01:00)
[2022-12-26] MEDS: HYDROmorphone 1 MG/1 ML SYRINGE IV PRN ×3 (01:07→10:58)
[2022-12-26 01:25] LABS: Hematocrit 44 % (35-47); Hemoglobin 14.6 g/dL (12.0-16.0); Mean Corpuscular HGB Conc 34 g/dL (31-36); Mean Corpuscular Hemoglobin 29 pg (27-31); Mean Corpuscular Volume 86 fL (80-97); Mean Platelet Volume 7.6 fL (7.4-10.4); Platelet Count 327 10^3/uL (150-450); Red Blood Count 5.09 10^6 /uL (3.70-4.87); Red Cell Distribution Width 14 % (10-15)
[2022-12-26 01:48] LABS: Creatinine, Serum 0.96 mg/dL (0.51-0.95); eGFR CKD-EPI 64.8 (>60)
[2022-12-26 01:58] LABS: ABS Basophils 0.1 10^3/ul (0-0.2); ABS Lymphocytes 1.3 10^3/ul (1.0-4.8); ABS Monocytes 1.7 10^3/ul (0-0.8); ABS Neutrophils 16.9 10^3/ul (1.5-7.7); Eosinophil % 0.1 %; Lymphocyte % 6.6 %
[2022-12-26] MEDS ORDERED: Heparin 5000 UNITS/ML 1 mL VIAL IV SCH (02:00)
[2022-12-26] MEDS ORDERED: Lactated Ringers 1000 ml BAG 1,000 ML IV ONE (02:34)
[2022-12-26] MEDS: metroNIDAZOLE IV 500 MG/100ML 500 MG/100 ML BAG IVPB SCH ×3 (03:26→19:44)
[2022-12-26] MEDS: Albuterol/Ipratropium NEB.SOL (2.5/0.5 MG) 3 ML NEB.SOLN INH SCH (06:57)
[2022-12-26] MEDS: Ondansetron ODT 4 mg TAB 4 MG TAB PO PRN (06:59)
[2022-12-26] MEDS: NON FORMULARY MED (Budesonide-Glycopyr-Formoterol [Breztri Aerosphere] 160-9-4.8 mcg/actua INH SCH (07:00)
[2022-12-26] MEDS ORDERED: Albuterol/Ipratropium NEB.SOL (2.5/0.5 MG) 3 ML NEB.SOLN INH PRN (07:08)
[2022-12-26] MEDS: fentaNYL Patch Check Q Shift NOTE FOLLOW UP SCH ×2 (07:33→19:30)
[2022-12-26 07:39] LABS: High Sensitivity Troponin 1 Hr 49 pg/mL (<15)
[2022-12-26] MEDS: Isosorbide Mononit ER 30mg TAB PO SCH (09:44)
[2022-12-26] MEDS: Nicotine PATCH 14 MG/24 HR PATCH TRANSDERM SCH (09:44)
[2022-12-26] MEDS: Fluticasone NASAL SPRAY 50MCG 16 gm SPRAY BTL BOTH NARES SCH (09:51)
[2022-12-26] MEDS: CMC:FLUTICAS/UMECLI/VILANT 100-62.5-25 MDI (NF) INH SCH (15:52)
[2022-12-26] MEDS: HYDROmorphone 1 MG/1 ML SYRINGE IV SLOW PU PRN ×2 (16:18→21:00)
[2022-12-26] MEDS: cefTRIAXone 1 gm/50 mL D5W 1 GM/50 ML BAG IV SCH (18:24)
[2022-12-26] MEDS ORDERED: NON FORMULARY MED (Budesonide-Glycopyr-Formoterol [Breztri Aerosphere] 160-9-4.8 mcg/actua INH SCH (21:00)
[2022-12-27] MEDS: hydrALAZINE 20 mg/ml 1 ML Vial IV IV SLOW PU PRN ×2 (01:46→07:38)
[2022-12-27] MEDS: HYDROmorphone 1 MG/1 ML SYRINGE IV PRN ×2 (01:49→05:54)
[2022-12-27] MEDS: metroNIDAZOLE IV 500 MG/100ML 500 MG/100 ML BAG IVPB SCH (02:46)
[2022-12-27] MEDS: Ondansetron ODT 4 mg TAB 4 MG TAB PO PRN ×2 (05:29→12:32)
[2022-12-27 05:47] LABS: ABS Basophils 0.1 10^3/ul (0-0.2); ABS Eosinophils 0.1 10^3/ul (0-0.6); ABS Lymphocytes 1.6 10^3/ul (1.0-4.8); Eosinophil % 0.7 %; Hematocrit 41 % (35-47); Lymphocyte % 13.6 %; Mean Corpuscular HGB Conc 34 g/dL (31-36); Mean Corpuscular Hemoglobin 29 pg (27-31); Mean Corpuscular Volume 85 fL (80-97); Mean Platelet Volume 7.6 fL (7.4-10.4); Platelet Count 317 10^3/uL (150-450); Red Blood Count 4.88 10^6 /uL (3.70-4.87); Red Cell Distribution Width 13 % (10-15); White Blood Count 11.7 10^3/uL (3.5-10.8)
[2022-12-27 05:58] LABS: Calcium 8.3 mg/dL (8.6-10.3); Magnesium 1.9 mg/dL (1.9-2.7); Potassium 2.9 mmol/L (3.5-5.0)
[2022-12-27 06:04] LABS: Creatinine, Serum 0.61 mg/dL (0.51-0.95); eGFR CKD-EPI 97.9 (>60)
[2022-12-27] MEDS: CMC:FLUTICAS/UMECLI/VILANT 100-62.5-25 MDI (NF) INH SCH (07:26)
[2022-12-27] MEDS ORDERED: Potassium Chloride LIQUID 20 MEQ/15 ML LIQUID PEG TUBE ONE (07:30)
[2022-12-27] MEDS: fentaNYL Patch Check Q Shift NOTE FOLLOW UP SCH (07:30)
[2022-12-27] MEDS ORDERED: Metoprolol Tartrate 5 mg VIAL 5 ml VIAL (1 mg/ml) IV ONE (09:09)
[2022-12-27] MEDS: Nitroglycerin 0.1 mg/hr PATCH (2.5 mg) TRANSDERM SCH (09:37)
[2022-12-27] MEDS: Nicotine PATCH 14 MG/24 HR PATCH TRANSDERM SCH (09:37)
[2022-12-27] MEDS: Fluticasone NASAL SPRAY 50MCG 16 gm SPRAY BTL BOTH NARES SCH (09:38)
[2022-12-27] MEDS: Isosorbide Mononit ER 30mg TAB PO SCH (09:38)
[2022-12-27 10:15] LABS: Calcium 8.6 mg/dL (8.6-10.3); Creatinine, Serum 0.57 mg/dL (0.51-0.95); Potassium 4.9 mmol/L (3.5-5.0); eGFR CKD-EPI 99.5 (>60)
[2022-12-27 10:45] LABS: High Sensitivity Troponin 1 Hr 35 pg/mL (<15)
[2022-12-27] MEDS ORDERED: hydrALAZINE 20 mg/ml 1 ML Vial IV IV SLOW PU PRN (10:55)
[2022-12-27] MEDS: Morphine ER 30 mg TAB ** extended release PO SCH ×2 (10:55→17:55)
[2022-12-27 16:09] LABS: Calcium 8.5 mg/dL (8.6-10.3); Creatinine, Serum 0.57 mg/dL (0.51-0.95); Potassium 3.8 mmol/L (3.5-5.0); eGFR CKD-EPI 99.5 (>60)
[2022-12-27] MEDS: cefTRIAXone 1 gm/50 mL D5W 1 GM/50 ML BAG IV SCH (17:55)
[2022-12-27] MEDS: Pantoprazole VIAL 40 MG VIAL IV SCH (20:07)
[2022-12-27] MEDS: Heparin 5000 UNITS/ML 1 mL VIAL SUBCUT SCH (20:10)
[2022-12-27] MEDS: HYDROmorphone 1 MG/1 ML SYRINGE IV SLOW PU PRN (23:18)
[2022-12-28] MEDS: Morphine ER 30 mg TAB ** extended release PO SCH ×3 (02:18→18:15)
[2022-12-28] MEDS: HYDROmorphone 1 MG/1 ML SYRINGE IV SLOW PU PRN ×2 (03:52→08:36)
[2022-12-28 05:20] LABS: Hematocrit 40 % (35-47); Hemoglobin 13.5 g/dL (12.0-16.0); Mean Corpuscular HGB Conc 34 g/dL (31-36); Mean Corpuscular Hemoglobin 28 pg (27-31); Mean Corpuscular Volume 84 fL (80-97); Mean Platelet Volume 7.4 fL (7.4-10.4); Platelet Count 319 10^3/uL (150-450); Red Blood Count 4.81 10^6 /uL (3.70-4.87); Red Cell Distribution Width 13 % (10-15); White Blood Count 10.4 10^3/uL (3.5-10.8)
[2022-12-28 05:59] LABS: Calcium 8.3 mg/dL (8.6-10.3); Creatinine, Serum 0.71 mg/dL (0.51-0.95); Magnesium 1.8 mg/dL (1.9-2.7); Potassium 3.4 mmol/L (3.5-5.0); eGFR CKD-EPI 93.1 (>60)
[2022-12-28] MEDS ORDERED: KCL 20 MEQ/100 ML IVPREMIX 20 MEQ/100 ML BAG IV ONE (07:05)
[2022-12-28] MEDS ORDERED: Magnesium Sulfate 2 gm BAG 2 GM/50 ML BAG IVPB ONE (07:05)
[2022-12-28] MEDS: CMC:FLUTICAS/UMECLI/VILANT 100-62.5-25 MDI (NF) INH SCH (07:32)
[2022-12-28] MEDS: Pantoprazole VIAL 40 MG VIAL IV SCH ×2 (10:54→20:17)
[2022-12-28] MEDS: Polyethylene Glycol 3350 17 GM PACKET G TUBE SCH (10:55)
[2022-12-28] MEDS: Nitroglycerin 0.1 mg/hr PATCH (2.5 mg) TRANSDERM SCH (10:55)
[2022-12-28] MEDS: Fluticasone NASAL SPRAY 50MCG 16 gm SPRAY BTL BOTH NARES SCH (10:55)
[2022-12-28] MEDS: Heparin 5000 UNITS/ML 1 mL VIAL SUBCUT SCH ×2 (11:33→20:17)
[2022-12-28] MEDS ORDERED: Regadenoson 0.4 MG/5 ML SYRINGE ONE (12:11)
[2022-12-28] MEDS ORDERED: Aminophylline 25 MG/ML VIAL ONE (12:11)
[2022-12-28] MEDS ORDERED: NS 0.9% 1000 ml BAG 1,000 ML IV SCH (14:00)
[2022-12-28] MEDS: HYDROmorphone 1 MG/1 ML SYRINGE IV PRN ×2 (14:42→20:16)
[2022-12-28] MEDS: Isosorbide Mononit ER 30mg TAB PO SCH (15:54)
[2022-12-28] MEDS: cefTRIAXone 1 gm/50 mL D5W 1 GM/50 ML BAG IV SCH (18:15)
[2022-12-29] MEDS: HYDROmorphone 1 MG/1 ML SYRINGE IV PRN ×6 (00:37→21:55)
[2022-12-29] MEDS: Morphine ER 30 mg TAB ** extended release PO SCH ×3 (03:40→17:40)
[2022-12-29 05:41] LABS: Hematocrit 37 % (35-47); Hemoglobin 12.3 g/dL (12.0-16.0); Mean Corpuscular HGB Conc 34 g/dL (31-36); Mean Corpuscular Hemoglobin 29 pg (27-31); Mean Corpuscular Volume 85 fL (80-97); Mean Platelet Volume 7.7 fL (7.4-10.4); Platelet Count 287 10^3/uL (150-450); Red Blood Count 4.33 10^6 /uL (3.70-4.87); Red Cell Distribution Width 13 % (10-15); White Blood Count 11.9 10^3/uL (3.5-10.8)
[2022-12-29 06:08] LABS: Calcium 7.8 mg/dL (8.6-10.3); Creatinine, Serum 0.77 mg/dL (0.51-0.95); Magnesium 1.9 mg/dL (1.9-2.7); Potassium 3.6 mmol/L (3.5-5.0); eGFR CKD-EPI 84.5 (>60)
[2022-12-29] MEDS: CMC:FLUTICAS/UMECLI/VILANT 100-62.5-25 MDI (NF) INH SCH (07:18)
[2022-12-29] MEDS: Pantoprazole VIAL 40 MG VIAL IV SCH ×2 (09:28→21:54)
[2022-12-29] MEDS: Polyethylene Glycol 3350 17 GM PACKET G TUBE SCH (09:28)
[2022-12-29] MEDS: Isosorbide Mononit ER 30mg TAB PO SCH (09:29)
[2022-12-29] MEDS: Heparin 5000 UNITS/ML 1 mL VIAL SUBCUT SCH ×2 (09:30→21:55)
[2022-12-29] MEDS: Fluticasone NASAL SPRAY 50MCG 16 gm SPRAY BTL BOTH NARES SCH (11:43)
[2022-12-29] MEDS: HYDROmorphone 1 MG/1 ML SYRINGE IV SLOW PU PRN ×2 (11:48→16:11)
[2022-12-29] MEDS ORDERED: Polyethylene Glycol 3350 17 GM PACKET G TUBE PRN (12:15)
[2022-12-29] MEDS: cefTRIAXone 1 gm/50 mL D5W 1 GM/50 ML BAG IV SCH (17:40)
[2022-12-30] MEDS: HYDROmorphone 1 MG/1 ML SYRINGE IV PRN ×5 (01:47→20:04)
[2022-12-30] MEDS: Morphine ER 30 mg TAB ** extended release PO SCH ×3 (04:07→18:19)
[2022-12-30 06:55] LABS: Hematocrit 36 % (35-47); Hemoglobin 11.9 g/dL (12.0-16.0); Mean Corpuscular HGB Conc 33 g/dL (31-36); Mean Corpuscular Hemoglobin 28 pg (27-31); Mean Corpuscular Volume 85 fL (80-97); Mean Platelet Volume 7.4 fL (7.4-10.4); Platelet Count 262 10^3/uL (150-450); Red Blood Count 4.23 10^6 /uL (3.70-4.87); Red Cell Distribution Width 13 % (10-15); White Blood Count 13.4 10^3/uL (3.5-10.8)
[2022-12-30] MEDS: CMC:FLUTICAS/UMECLI/VILANT 100-62.5-25 MDI (NF) INH SCH ×2 (06:55→07:02)
[2022-12-30 07:35] LABS: Creatinine, Serum 0.63 mg/dL (0.51-0.95); Magnesium 1.6 mg/dL (1.9-2.7); Phosphorus 3.7 mg/dL (2.5-5.0); Potassium 3.7 mmol/L (3.5-5.0); eGFR CKD-EPI 97.2 (>60)
[2022-12-30] MEDS ORDERED: Magnesium Sulfate 2 gm BAG 2 GM/50 ML BAG IVPB ONE (07:49)
[2022-12-30] MEDS ORDERED: Lidocaine 2% PF 5 ML VIAL ONE (08:53)
[2022-12-30] MEDS ORDERED: Propofol 10 MG/ML 20 ML BTL ONE ×2 (08:53→09:39)
[2022-12-30] MEDS ORDERED: Midazolam 2 mg/2 ml VIAL 1 mg/ml 2 ml VIAL (2 mg) ONE (08:53)
[2022-12-30] MEDS ORDERED: Ketamine HCL 50 mg/ml 10 ml VIAL (500 MG) ONE (09:40)
[2022-12-30] MEDS ORDERED: Naloxone 0.4 mg VIAL 0.4 mg/ml 1 ml VIAL IV PRN (09:54)
[2022-12-30] MEDS ORDERED: Ondansetron 4 mg VIAL 2 MG/ML 2 ml VIAL IV PRN (09:54)
[2022-12-30] MEDS: Pantoprazole VIAL 40 MG VIAL IV SCH (11:14)
[2022-12-30] MEDS: Isosorbide Mononit ER 30mg TAB PO SCH (11:14)
[2022-12-30] MEDS: Heparin 5000 UNITS/ML 1 mL VIAL SUBCUT SCH ×2 (11:14→20:05)
[2022-12-30] MEDS: Fluticasone NASAL SPRAY 50MCG 16 gm SPRAY BTL BOTH NARES SCH (11:15)
[2022-12-30] MEDS: KCL 20 MEQ/100 ML IVPREMIX 20 MEQ/100 ML BAG IV SCH ×2 (11:15→13:56)
[2022-12-30] MEDS: HYDROmorphone 1 MG/1 ML SYRINGE IV SLOW PU PRN (18:19)
[2022-12-30] MEDS: cefTRIAXone 1 gm/50 mL D5W 1 GM/50 ML BAG IV SCH (18:19)
[2022-12-31] MEDS: HYDROmorphone 1 MG/1 ML SYRINGE IV PRN ×5 (00:10→23:05)
[2022-12-31] MEDS: Morphine ER 30 mg TAB ** extended release PO SCH ×3 (02:00→17:09)
[2022-12-31 06:28] LABS: ABS Basophils 0.1 10^3/ul (0-0.2); ABS Eosinophils 0.4 10^3/ul (0-0.6); ABS Lymphocytes 1.3 10^3/ul (1.0-4.8); ABS Monocytes 1.1 10^3/ul (0-0.8); ABS Neutrophils 9.5 10^3/ul (1.5-7.7); Eosinophil % 3.4 %; Hematocrit 35 % (35-47); Hemoglobin 11.5 g/dL (12.0-16.0); Lymphocyte % 10.8 %; Mean Corpuscular HGB Conc 33 g/dL (31-36); Mean Corpuscular Hemoglobin 28 pg (27-31); Mean Corpuscular Volume 84 fL (80-97); Mean Platelet Volume 7.6 fL (7.4-10.4); Platelet Count 273 10^3/uL (150-450); Red Blood Count 4.12 10^6 /uL (3.70-4.87); Red Cell Distribution Width 13 % (10-15); White Blood Count 12.5 10^3/uL (3.5-10.8)
[2022-12-31 07:07] LABS: Calcium 8.1 mg/dL (8.6-10.3); Creatinine, Serum 0.7 mg/dL (0.51-0.95); Magnesium 1.9 mg/dL (1.9-2.7); Phosphorus 3.3 mg/dL (2.5-5.0); eGFR CKD-EPI 94.7 (>60)
[2022-12-31] MEDS: CMC:FLUTICAS/UMECLI/VILANT 100-62.5-25 MDI (NF) INH SCH (07:19)
[2022-12-31] MEDS: Fluticasone NASAL SPRAY 50MCG 16 gm SPRAY BTL BOTH NARES SCH (10:11)
[2022-12-31] MEDS: Isosorbide Mononit ER 30mg TAB PO SCH (10:14)
[2022-12-31] MEDS: Heparin 5000 UNITS/ML 1 mL VIAL SUBCUT SCH ×2 (10:15→21:02)
[2022-12-31] MEDS ORDERED: cefTRIAXone 1 GM Q24H (ADVAN) IVPB SCH (18:00)
[2022-12-31] MEDS ORDERED: cefTRIAXone 1 gm/50 mL D5W 1 GM/50 ML BAG IV ONE (18:00)
[2022-12-31] MEDS: HYDROmorphone 1 MG/1 ML SYRINGE IV SLOW PU PRN (20:49)
[2023-01-01] MEDS: Morphine ER 30 mg TAB ** extended release PO SCH ×3 (01:22→18:15)
[2023-01-01] MEDS: HYDROmorphone 1 MG/1 ML SYRINGE IV SLOW PU PRN ×2 (02:42→21:43)
[2023-01-01 05:33] LABS: ABS Basophils 0.1 10^3/ul (0-0.2); ABS Eosinophils 0.4 10^3/ul (0-0.6); ABS Lymphocytes 1.7 10^3/ul (1.0-4.8); ABS Monocytes 0.9 10^3/ul (0-0.8); ABS Neutrophils 6.3 10^3/ul (1.5-7.7); Eosinophil % 4.3 %; Hematocrit 33 % (35-47); Hemoglobin 11.1 g/dL (12.0-16.0); Lymphocyte % 18.1 %; Mean Corpuscular HGB Conc 34 g/dL (31-36); Mean Corpuscular Hemoglobin 28 pg (27-31); Mean Corpuscular Volume 84 fL (80-97); Mean Platelet Volume 7.4 fL (7.4-10.4); Platelet Count 287 10^3/uL (150-450); Red Blood Count 3.92 10^6 /uL (3.70-4.87); Red Cell Distribution Width 13 % (10-15); White Blood Count 9.4 10^3/uL (3.5-10.8)
[2023-01-01 06:18] LABS: Potassium 3.5 mmol/L (3.5-5.0)
[2023-01-01] MEDS: HYDROmorphone 1 MG/1 ML SYRINGE IV PRN ×4 (06:19→18:35)
[2023-01-01 06:27] LABS: Creatinine, Serum 0.84 mg/dL (0.51-0.95); eGFR CKD-EPI 76.1 (>60)
[2023-01-01] MEDS: CMC:FLUTICAS/UMECLI/VILANT 100-62.5-25 MDI (NF) INH SCH (07:15)
[2023-01-01] MEDS: Isosorbide Mononit ER 30mg TAB PO SCH (09:42)
[2023-01-01] MEDS: Heparin 5000 UNITS/ML 1 mL VIAL SUBCUT SCH ×2 (09:42→21:46)
[2023-01-01] MEDS: Fluticasone NASAL SPRAY 50MCG 16 gm SPRAY BTL BOTH NARES SCH (09:43)
[2023-01-01] MEDS: Ondansetron 4 mg VIAL 2 MG/ML 2 ml VIAL IV PRN (18:30)
[2023-01-02] MEDS: Morphine ER 30 mg TAB ** extended release PO SCH ×2 (01:25→10:42)
[2023-01-02] MEDS: HYDROmorphone 1 MG/1 ML SYRINGE IV PRN (05:13)
[2023-01-02] MEDS: Ondansetron 4 mg VIAL 2 MG/ML 2 ml VIAL IV PRN (05:32)
[2023-01-02 06:04] LABS: Calcium 8.1 mg/dL (8.6-10.3); Creatinine, Serum 0.76 mg/dL (0.51-0.95); Potassium 3.8 mmol/L (3.5-5.0); eGFR CKD-EPI 85.8 (>60)
[2023-01-02 06:11] LABS: ABS Basophils 0.1 10^3/ul (0-0.2); ABS Eosinophils 0.3 10^3/ul (0-0.6); ABS Lymphocytes 1.5 10^3/ul (1.0-4.8); ABS Monocytes 0.7 10^3/ul (0-0.8); ABS Neutrophils 5.8 10^3/ul (1.5-7.7); Eosinophil % 3.3 %; Hematocrit 33 % (35-47); Hemoglobin 11.1 g/dL (12.0-16.0); Lymphocyte % 18.1 %; Mean Corpuscular HGB Conc 34 g/dL (31-36); Mean Corpuscular Hemoglobin 29 pg (27-31); Mean Corpuscular Volume 86 fL (80-97); Mean Platelet Volume 7.2 fL (7.4-10.4); Platelet Count 303 10^3/uL (150-450); Red Blood Count 3.83 10^6 /uL (3.70-4.87); Red Cell Distribution Width 13 % (10-15); White Blood Count 8.4 10^3/uL (3.5-10.8)
[2023-01-02] MEDS: CMC:FLUTICAS/UMECLI/VILANT 100-62.5-25 MDI (NF) INH SCH (07:27)
[2023-01-02] MEDS: Isosorbide Mononit ER 30mg TAB PO SCH (10:39)
[2023-01-02] MEDS: Fluticasone NASAL SPRAY 50MCG 16 gm SPRAY BTL BOTH NARES SCH (10:47)
[2023-01-02] MEDS: Heparin 5000 UNITS/ML 1 mL VIAL SUBCUT SCH (10:47)
[2023-01-02 14:45] VITALS: BP 144/66
== END 2023-01-02 18:10 | DRG 304 ==
LOC: ED 14:11 → EDHOLD 22:07 → SUATTDRO 22:07 → MEDTELE 12-25 13:33
PROVIDERS: ADMIT Internal Medicine; ATTEND Internal Medicine
PROC: O.GIEGD (2022-12-30 08:30)